=== PATIENT | female | born 1950 | race African-American/Black ===

== ENCOUNTER 2016-12-30 15:41 | Inpatient (IN) | payer MEDICARE, MEDICAID ==
[~2016-12-30] VITALS: Ht 170.2 cm; Wt 71.7 kg
[~2016-12-30 15:41] MED LIST: HYDRALAZINE HCL25 M1 ORAL; LEVOFLOXACIN500 MG ORAL; MEGESTROL ACETA20 M1 PO; MEGESTROL800 MG/20 PO; METOPROLOL SUCC50 MG ORAL; NEPRO; NOVASOURCE RE1000 M1 PO; NOVOLIN R100 UNIT/1 SUBQ; PRO-STAT LIQUID30 ML ORAL
[2016-12-30] MEDS ORDERED: PRO-STAT LIQUID30 ML ORAL (15:55)
[2016-12-30] MEDS ORDERED: ATIVAN2 MG ORAL (15:55)
--- NOTE | 2016-12-30 16:26 | Emergency Room Report ---
History of Present Illness General Chief Complaint: General Complaint Source: Patient, Medical Record, EMS Present Illness HPI The patient was sent in from missing dialysis. In addition to that they state that she has a 102 fever. The patient doesn't answer questions. She is aphasic. She was admitted in September for vaginal bleeding. These are the discharge diagnoses: 1. Post menopausal vaginal bleed and high possibility of endometrial cancer. 2. Aspiration pneumonia. 3. Acute metabolic encephalopathy. 4. End-stage renal failure, on hemodialysis. 5. Lactic acidosis. 6. Probable sepsis. 7. Urinary tract infection Enterococcus. 8. Possible pneumonia. 9. Diabetes. 10. Hypertension. 11. Anemia. 12. Hyperlipidemia. 13. Peripheral vascular disease. 14. Dementia. 15. History of open reduction internal fixation of left femur. 16. History of right above knee amputation. 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 Hx Diabetes: Yes Hx Dialysis: Yes - End stage renal disease, dependence on renal dialysis, MWF Hx Dementia: Yes Review of Systems All Other Systems: limited Physical Exam Vital Signs Date Time Temp Pulse Resp B/P Pulse Ox O2 Delivery O2 Flow Rate FiO2 12/30/16 15:49 100.2 101 22 106/56 95 Room Air Sp02 EP Interpretation: reviewed, normal General Appearance: no apparent distress, Chronically Ill Head: normocephalic, atraumatic Eyes: bilateral eye PERRL, bilateral eye normal inspection ENT: moist mucus membranes Neck: supple Respiratory: lungs clear, no respiratory distress, rhonchi - R but mostly clear Cardiovascular #1: regular rate, rhythm Cardiovascular #2: 2+ radial (R), 2+ radial (L) - fistula Gastrointestinal: normal inspection, normal bowel sounds, non tender, no mass, non-distended Genitourinary: other - vaginal blood present Musculoskeletal: no calf tenderness - L, other - AKA R Neurologic: alert, responsive, motor strength/tone normal, sensory intact, aphasia Psychiatric: anxious - occasionally screaming out, then with some verbal statements Skin: normal inspection, warm/dry Medical Decision Making Diagnostic Impression: Primary Impression: UTI (urinary tract infection) Qualified Codes: N39.0 - Urinary tract infection, site not specified Additional Impressions: Fever Qualified Codes: R50.81 - Fever presenting with conditions classified elsewhere ESRF (end stage renal failure) Vaginal bleeding ER Course Patient presents with fever and allegedly missing dialysis. Complex patient as she cannot give history. Emergent evaluation with BC, lactate, labs, CXR, EKG. Previously with UTI - raphael will be placed. Fever will be treated. Some evidence of continued vaginal bleeding. H/H much lower than when last in hospital (2 points). Vaginal source present. Evidence of UTI. CXR no infiltrate (compared with older films). Patient improved with treatment. Admit telemetry Dr. Motta. He came to evaluate the patient. Laboratory Tests Test 12/30/16 16:28 12/30/16 17:10 White Blood Count 10.7 K/UL (4.8-10.8) Red Blood Count 2.98 M/UL (4.20-5.40) L Hemoglobin 8.8 G/DL (12.0-16.0) L Hematocrit 27.6 % (37.0-47.0) L Mean Corpuscular Volume 93 FL (80-99) Mean Corpuscular Hemoglobin 29.4 PG (27.0-31.0) Mean Corpuscular Hemoglobin Concent 31.8 G/DL (32.0-36.0) L Red Cell Distribution Width 14.1 % (11.6-14.8) Platelet Count 394 K/UL (150-450) Mean Platelet Volume 10.0 FL (6.5-10.1) Neutrophils (%) (Auto) 73.0 % (45.0-75.0) Lymphocytes (%) (Auto) 18.4 % (20.0-45.0) L Monocytes (%) (Auto) 6.1 % (1.0-10.0) Eosinophils (%) (Auto) 1.3 % (0.0-3.0) Basophils (%) (Auto) 1.3 % (0.0-2.0) Prothrombin Time 10.2 SEC (9.30-11.50) Prothrombin Time INR 1.0 (0.9-1.1) PTT 25 SEC (23-33) Sodium Level 141 mEQ/L (135-145) Potassium Level 4.1 mEQ/L (3.4-4.9) Chloride Level 92 mEQ/L (98-107) L Carbon Dioxide Level 29 mEQ/L (20-30) Anion Gap 20 (5-15) H Blood Urea Nitrogen 42 mg/dL (7-23) H Creatinine 5.5 mg/dL (0.5-0.9) H Estimate Glomerular Filtration Rate 9.5 mL/min (>60) Glucose Level 241 mg/dL (74-106) H Lactic Acid Level 1.30 mmol/L (0.66-2.22) Calcium Level 9.8 mg/dL (8.6-10.2) Total Bilirubin 0.2 mg/dL (0.0-1.2) Aspartate Amino Transferase (AST) 15 U/L (5-40) Alanine Aminotransferase (ALT) 10 U/L (3-33) Alkaline Phosphatase 85 U/L (35-104) Total Creatine Kinase 292 U/L (26-140) H Troponin I < 0.30 ng/mL (<=0.30) Pro-B-Type Natriuretic Peptide 8144 pg/mL (0-125) H Total Protein 7.1 g/dL (6.6-8.7) Albumin 3.6 g/dL (3.5-5.2) Globulin 3.5 g/dL Albumin/Globulin Ratio 1.0 (1.0-2.7) Urine Color Yellow Urine Appearance Clear Urine pH 7 (4.5-8.0) Urine Specific [place] 1.005 (1.005-1.035) Urine Protein 3+ (NEGATIVE) H Urine Glucose (UA) Negative (NEGATIVE) Urine Ketones 1+ (NEGATIVE) H Urine Occult Blood 1+ (NEGATIVE) H Urine Nitrite Negative (NEGATIVE) Urine Bilirubin 1+ (NEGATIVE) H Urine Ictotest Urine Urobilinogen 1 MG/DL (0.0-1.0) H Urine Leukocyte Esterase 2+ (NEGATIVE) H Urine RBC 2-4 /HPF (0 - 2) H Urine WBC 0-2 /HPF (0 - 2) Urine Squamous Epithelial Cells Moderate /LPF (NONE/OCC) H Urine Bacteria Few /HPF (NONE) EKG Diagnostic Results Rate: normal Rhythm: NSR ST Segments: no acute changes Rhythm Strip Diag. Results EP Interpretation: yes Rhythm: NSR, no PVC's, no ectopy Chest X-Ray Diagnostic Results EP Interpretation: Yes Findings: no consolidation, no effusion, no pneumothorax Number of Views: 1 Last Vital Signs Date Time Temp Pulse Resp B/P Pulse Ox O2 Delivery O2 Flow Rate FiO2 12/30/16 15:49 100.2 101 22 106/56 95 Room Air Status: improved Disposition: ADMITTED INPATIENT Condition: Serious Referrals: IHSAN SILVA (PCP) Alexey Guillen M.D. Dec 30, 2016 16:26
[2016-12-30 16:54] LABS: BASOPHILS % (AUTO) 1.3 % (0.0-2.0); EOSINOPHILS % (AUTO) 1.3 % (0.0-3.0); LYMPHOCYTES % (AUTO) 18.4 % (20.0-45.0); MEAN CORPUSCULAR HEMOGLOBIN 29.4 PG (27.0-31.0); MEAN CORPUSCULAR HGB CONC 31.8 G/DL (32.0-36.0); MEAN CORPUSCULAR VOLUME 93 FL (80-99); MONOCYTES % (AUTO) 6.1 % (1.0-10.0); PLATELET COUNT 394 K/UL (150-450); RED BLOOD COUNT 2.98 M/UL (4.20-5.40); RED CELL DISTRIBUTION WIDTH 14.1 % (11.6-14.8); WHITE BLOOD COUNT 10.7 K/UL (4.8-10.8)
[2016-12-30 17:00] VITALS: BP 116/68
[2016-12-30 17:04] LABS: PROTHROMBIN TIME 10.2 SEC (9.30-11.50)
[2016-12-30 17:12] LABS: TROPONIN I < 0.30 ng/mL (<=0.30)
[2016-12-30 17:15] LABS: ALANINE AMINOTRANSFERASE 10 U/L (3-33); ANION GAP 20 (5-15); ASPARTATE AMINO TRANSFERASE 15 U/L (5-40); CALCIUM 9.8 mg/dL (8.6-10.2); CARBON DIOXIDE 29 mEQ/L (20-30); CHLORIDE 92 mEQ/L (98-107); CREATININE 5.5 mg/dL (0.5-0.9); GLOMERULAR FILTRATION RATE 9.5 mL/min (>60); HEMOLYSIS 15; POTASSIUM 4.1 mEQ/L (3.4-4.9); SODIUM 141 mEQ/L (135-145); TOTAL PROTEIN 7.1 g/dL (6.6-8.7)
[2016-12-30 17:35] LABS: APPEARANCE,URINE CLEAR; KETONES,URINE 1+ (NEGATIVE); LEUKOCYTE ESTERASE ,URINE 2+ (NEGATIVE); NITRITE,URINE NEGATIVE (NEGATIVE); PH,URINE 7 (4.5-8.0); PROTEIN,URINE 3+ (NEGATIVE); UROBILINOGEN,URINE 1 MG/DL (0.0-1.0)
[2016-12-30 17:56] LABS: BACTERIA,URINE FEW /HPF; SQUAMOUS EPITHELIAL CELL,UR MODERATE /LPF (NONE/OCC); WBC,URINE 0-2 /HPF (0 - 2)
[2016-12-30 18:33] VITALS: BP 128/68
[2016-12-30] MEDS ORDERED: Mylanta II UD 30ml ORAL PRN (19:15)
[2016-12-30] MEDS ORDERED: Amikacin Rx to dose MISC PRN (19:15)
[2016-12-30] MEDS ORDERED: Zolpidem 5mg tab ORAL PRN (19:15)
[2016-12-30] MEDS ORDERED: Miralax 17gm pkt ORAL PRN (19:15)
[2016-12-30] MEDS ORDERED: Morphine Sulfate 2mg/ml Inj IVP PRN (19:15)
[2016-12-30] MEDS ORDERED: DuoNeb 0.5-3(2.5)mg/3ml neb HHN PRN (19:15)
[2016-12-30 20:15] VITALS: BP 128/79
[2016-12-30] MEDS: Heparin 5000 units/ml inj SUBQ SCH (21:53)
[2016-12-30] MEDS ORDERED: Zosyn 2.25gm inj ONE (22:10)
[2016-12-30] MEDS: Piperacillin/Tazobactam 2.25 GM in D5W 55 ML IV SCH (22:20)
[2016-12-30] MEDS: HydrALAZINE 25mg tab ORAL SCH (22:25)
[2016-12-30] MEDS: NovoLOG Insulin Flexpen SUBQ SCH (22:29)
[2016-12-30] MEDS ORDERED: Vancomycin 1gm/D5W 275ml IVPB ONE ×2 (22:30)
[2016-12-30] MEDS ORDERED: Vancomycin 1gm inj IVPB ONE (23:11)
[2016-12-30 23:15] VITALS: BP 118/80
[2016-12-31] VITALS (9 sets, daily range): BP systolic 105–138; BP diastolic 50–85
[2016-12-31] MEDS ORDERED: Amikacin 500 MG in NS 110 ML IV ONE (02:00)
[2016-12-31] MEDS ORDERED: Amikacin 500mg/2mL Inj ONE (02:10)
[2016-12-31] MEDS ORDERED: Zosyn 2.25gm inj ONE (06:13)
[2016-12-31] MEDS: Piperacillin/Tazobactam 2.25 GM in D5W 55 ML IV SCH ×3 (06:15→21:28)
[2016-12-31] MEDS: HydrALAZINE 25mg tab ORAL SCH ×3 (06:26→21:30)
[2016-12-31] MEDS: NovoLOG Insulin Flexpen SUBQ SCH ×4 (06:37→20:32)
[2016-12-31 07:38] LABS: BASOPHILS % (AUTO) 1.3 % (0.0-2.0); EOSINOPHILS % (AUTO) 2.3 % (0.0-3.0); LYMPHOCYTES % (AUTO) 23.4 % (20.0-45.0); MEAN CORPUSCULAR HEMOGLOBIN 29.2 PG (27.0-31.0); MEAN CORPUSCULAR HGB CONC 33.1 G/DL (32.0-36.0); MEAN CORPUSCULAR VOLUME 88 FL (80-99); MEAN PLATELET VOLUME 10.1 FL (6.5-10.1); MONOCYTES % (AUTO) 8.2 % (1.0-10.0); NEUTROPHILS % (AUTO) 64.8 % (45.0-75.0); PLATELET COUNT 371 K/UL (150-450); RED BLOOD COUNT 2.91 M/UL (4.20-5.40); RED CELL DISTRIBUTION WIDTH 13.5 % (11.6-14.8); WHITE BLOOD COUNT 9.2 K/UL (4.8-10.8)
[2016-12-31 07:45] LABS: APPEARANCE,URINE SLIGHTLY CLOUDY; KETONES,URINE NEGATIVE (NEGATIVE); LEUKOCYTE ESTERASE ,URINE 3+ (NEGATIVE); NITRITE,URINE NEGATIVE (NEGATIVE); PH,URINE 6 (4.5-8.0); PROTEIN,URINE 4+ (NEGATIVE); UROBILINOGEN,URINE 1 MG/DL (0.0-1.0)
[2016-12-31 07:46] LABS: ALBUMIN/GLOBULIN RATIO 0.9 (1.0-2.7); CALCIUM 9.6 mg/dL (8.6-10.2); CHOLESTEROL/HDL RATIO 8.2 (3.3-4.4); CREATININE 5.7 mg/dL (0.5-0.9); GLOMERULAR FILTRATION RATE 9.1 mL/min (>60); POTASSIUM 3.4 mEQ/L (3.4-4.9); TOTAL PROTEIN 7.2 g/dL (6.6-8.7)
[2016-12-31 07:54] LABS: WBC,URINE 20-30 /HPF (0 - 2)
[2016-12-31 07:55] LABS: BACTERIA,URINE FEW /HPF; SQUAMOUS EPITHELIAL CELL,UR FEW /LPF (NONE/OCC)
[2016-12-31 07:56] LABS: HEMOGLOBIN A1C 6.9 % (< 6.0); THYROID STIMULATING HORMONE 0.295 uIU/mL (0.300-4.500)
[2016-12-31 07:58] LABS: ICTOTEST NEGATIVE
--- NOTE | 2016-12-31 08:57 | Diagnostic Imaging Report ---
Clinical history: Acute chest pain. Technique: Portable AP chest radiograph was obtained. Comparison: None Findings: Lung volumes are low. There is borderline cardiomegaly with suspected mild interstitial densities, left greater than right, suggesting mild interstitial edema. [place] is noted in the left lower lung. There is no pleural effusion or pneumothorax. The bony thorax is unremarkable. Impression: Borderline cardiomegaly with suspected mild asymmetric interstitial edema..
[2016-12-31] MEDS: Heparin 5000 units/ml inj SUBQ SCH ×2 (10:19→20:31)
--- NOTE | 2016-12-31 15:13 | History and Physical ---
History of Present Illness General Date patient seen: Dec 31, 2016 Reason for Hospitalization: General Complaint Present Illness HPI 66 year old female with hx of ESRF, DM, Advanced Dementia, previous history of vaginal bleeding, [facility] resident. she was at [facility] a few month ago with vaginal bleeding, her bleeding stopped and she was discharged with the recommendation of outpatient [employer] follow up. She is brought back to ER with the CC of vaginal bleeding. she can't give any history. She is awake and comfortable. Allergies: Coded Allergies: No Known Allergies (Unverified , 09/15/16) Medication History Scheduled Amino Acids/Protein Hydrolys (Pro-Stat Liquid), 45 ML ORAL TWICE A DAY, ( Reported) Hydralazine Hcl* (Hydralazine Hcl*), 25 MG ORAL EVERY 8 HOURS, (Reported) Insulin Regular, Human* (Novolin R*), 0 SUBQ .SLIDING SCALE, (Reported) Lorazepam* (Ativan*), 2 MG ORAL EVERY OTHER DAY, (Reported) Megestrol Acetate (Megestrol Acetate), 800 MG PO BEFORE BREAKFAST, (Reported) Metoprolol Succinate* (Metoprolol Succinate*), 50 MG ORAL DAILY, (Reported) Discontinued Medications Amino Acids/Protein Hydrolys (Pro-Stat Liquid), 30 ML ORAL TWICE A DAY, ( Reported) Discontinued Reason: Therapy completed Levofloxacin (Levofloxacin*), 500 MG ORAL DAILY Discontinued Reason: Therapy completed Nutritional Supplement (Novasource Renal), 1,000 ML PO, (Reported) Discontinued Reason: Therapy completed [Nepro Liquid], (Reported) Discontinued Reason: Therapy completed Patient History Healthcare decision maker Resuscitation status Advanced Directive on File Past Medical/Surgical History Past Medical/Surgical History: (1) Diabetes mellitus (2) Vaginal bleeding (3) ESRF (end stage renal failure) Review of Systems All Other Systems: negative except mentioned in HPI Physical Exam General Appearance: WD/WN Lines, tubes and drains: peripheral, PICC HEENT: normocephalic, anicteric Neck: non-tender, supple Respiratory/Chest: chest wall non-tender, lungs clear Cardiovascular/Chest: normal peripheral pulses, regular rhythm Abdomen: normal bowel sounds, non tender Genitourinary/Rectal: normal genital exam, normal rectal exam Last 24 Hour Vital Signs Date Time Temp Pulse Resp B/P Pulse Ox O2 Delivery O2 Flow Rate FiO2 12/31/16 11:57 98.6 88 20 114/64 95 Room Air 12/31/16 09:00 98.2 94 21 105/56 95 Room Air 12/31/16 09:00 94 105/56 12/31/16 08:06 93 16 110/53 99 Room Air 12/31/16 07:25 99.0 89 25 110/50 97 Room Air 12/31/16 06:37 98.6 67 18 108/53 99 Room Air 12/31/16 06:26 111/54 12/31/16 05:30 79 14 111/71 98 Room Air 12/31/16 03:30 98.8 82 16 118/85 99 Room Air 12/31/16 01:30 84 19 122/81 100 Room Air 12/30/16 23:15 95 18 118/80 99 Room Air 12/30/16 22:25 135/78 12/30/16 20:15 99.0 100 21 128/79 98 Room Air 12/30/16 19:55 99.0 12/30/16 18:33 100.5 104 18 128/68 98 Room Air 12/30/16 17:00 100.2 96 19 116/68 98 Room Air 12/30/16 15:49 100.2 101 22 106/56 95 Room Air Intake and Output 12/30/16 12/31/16 19:00 07:00 Intake Total 460 ml Output Total 270 ml Balance 190 ml IV Total 460 ml Output Urine Total 270 ml Laboratory Tests Test 12/30/16 16:28 12/30/16 17:10 12/31/16 07:15 White Blood Count 10.7 K/UL (4.8-10.8) 9.2 K/UL (4.8-10.8) Red Blood Count 2.98 M/UL (4.20-5.40) L 2.91 M/UL (4.20-5.40) L Hemoglobin 8.8 G/DL (12.0-16.0) L 8.5 G/DL (12.0-16.0) L Hematocrit 27.6 % (37.0-47.0) L 25.7 % (37.0-47.0) L Mean Corpuscular Volume 93 FL (80-99) 88 FL (80-99) Mean Corpuscular Hemoglobin 29.4 PG (27.0-31.0) 29.2 PG (27.0-31.0) Mean Corpuscular Hemoglobin Concent 31.8 G/DL (32.0-36.0) L 33.1 G/DL (32.0-36.0) Red Cell Distribution Width 14.1 % (11.6-14.8) 13.5 % (11.6-14.8) Platelet Count 394 K/UL (150-450) 371 K/UL (150-450) Mean Platelet Volume 10.0 FL (6.5-10.1) 10.1 FL (6.5-10.1) Neutrophils (%) (Auto) 73.0 % (45.0-75.0) 64.8 % (45.0-75.0) Lymphocytes (%) (Auto) 18.4 % (20.0-45.0) L 23.4 % (20.0-45.0) Monocytes (%) (Auto) 6.1 % (1.0-10.0) 8.2 % (1.0-10.0) Eosinophils (%) (Auto) 1.3 % (0.0-3.0) 2.3 % (0.0-3.0) Basophils (%) (Auto) 1.3 % (0.0-2.0) 1.3 % (0.0-2.0) Prothrombin Time 10.2 SEC (9.30-11.50) Prothromb Time International Ratio 1.0 (0.9-1.1) Activated Partial Thromboplast Time 25 SEC (23-33) Sodium Level 141 mEQ/L (135-145) 141 mEQ/L (135-145) Potassium Level 4.1 mEQ/L (3.4-4.9) 3.4 mEQ/L (3.4-4.9) Chloride Level 92 mEQ/L (98-107) L 94 mEQ/L (98-107) L Carbon Dioxide Level 29 mEQ/L (20-30) 30 mEQ/L (20-30) Anion Gap 20 (5-15) H 17 (5-15) H Blood Urea Nitrogen 42 mg/dL (7-23) H 46 mg/dL (7-23) H Creatinine 5.5 mg/dL (0.5-0.9) H 5.7 mg/dL (0.5-0.9) H Estimat Glomerular Filtration Rate 9.5 mL/min (>60) 9.1 mL/min (>60) Glucose Level 241 mg/dL (74-106) H 184 mg/dL (74-106) H Lactic Acid Level 1.30 mmol/L (0.66-2.22) Calcium Level 9.8 mg/dL (8.6-10.2) 9.6 mg/dL (8.6-10.2) Total Bilirubin 0.2 mg/dL (0.0-1.2) 0.4 mg/dL (0.0-1.2) Aspartate Amino Transf (AST/SGOT) 15 U/L (5-40) 13 U/L (5-40) Alanine Aminotransferase (ALT/SGPT) 10 U/L (3-33) 8 U/L (3-33) Alkaline Phosphatase 85 U/L (35-104) 77 U/L (35-104) Total Creatine Kinase 292 U/L (26-140) H Troponin I < 0.30 ng/mL (<=0.30) Pro-B-Type Natriuretic Peptide 8144 pg/mL (0-125) H Total Protein 7.1 g/dL (6.6-8.7) 7.2 g/dL (6.6-8.7) Albumin 3.6 g/dL (3.5-5.2) 3.5 g/dL (3.5-5.2) Globulin 3.5 g/dL 3.7 g/dL Albumin/Globulin Ratio 1.0 (1.0-2.7) 0.9 (1.0-2.7) L Urine Color Yellow Yellow Urine Appearance Clear Slightly cloudy Urine pH 7 (4.5-8.0) 6 (4.5-8.0) Urine Specific [place] 1.005 (1.005-1.035) 1.020 (1.005-1.035) Urine Protein 3+ (NEGATIVE) H 4+ (NEGATIVE) H Urine Glucose (UA) Negative (NEGATIVE) Negative (NEGATIVE) Urine Ketones 1+ (NEGATIVE) H Negative (NEGATIVE) Urine Occult Blood 1+ (NEGATIVE) H 4+ (NEGATIVE) H Urine Nitrite Negative (NEGATIVE) Negative (NEGATIVE) Urine Bilirubin 1+ (NEGATIVE) H 1+ (NEGATIVE) H Urine Ictotest Negative Urine Urobilinogen 1 MG/DL (0.0-1.0) H 1 MG/DL (0.0-1.0) H Urine Leukocyte Esterase 2+ (NEGATIVE) H 3+ (NEGATIVE) H Urine RBC 2-4 /HPF (0 - 2) H 5-10 /HPF (0 - 2) H Urine WBC 0-2 /HPF (0 - 2) 20-30 /HPF (0 - 2) H Urine Squamous Epithelial Cells Moderate /LPF (NONE/OCC) H Few /LPF (NONE/OCC) Urine Bacteria Few /HPF (NONE) Few /HPF (NONE) Hemoglobin A1c 6.9 % (< 6.0) H Triglycerides Level 212 mg/dL (< 150) H Cholesterol Level 247 mg/dL (< 200) H LDL Cholesterol 175 mg/dL (60-99) H HDL Cholesterol 30 mg/dL (> 60) Cholesterol/HDL Ratio 8.2 (3.3-4.4) H Thyroid Stimulating Hormone (TSH) 0.295 uIU/mL (0.300-4.500) Height (Feet): 5 Height (Inches): 7.00 Weight (Pounds): 158 Medications Current Medications Medications (Trade) Dose Ordered Sig/Althea Route PRN Reason Start Time Stop Time Status Last Admin Dose Admin Acetaminophen (Tylenol) 650 mg Q4H PRN ORAL fever 12/30/16 19:15 01/29/17 19:14 Al Hydroxide/Mg Hydroxide (Mylanta II) 30 ml Q6H PRN ORAL dyspepsia 12/30/16 19:15 01/29/17 19:14 Albuterol/ Ipratropium (DuoNeb 0.5-3(2.5)mg/3ml) 3 ml Q6HRT PRN HHN dyspnea 12/30/16 19:15 01/04/17 19:14 Amikacin Protocol 1 ea 1 ea DAILY PRN MISC Per rx protocol 12/30/16 19:15 01/29/17 19:14 Amikacin Sulfate/ Dextrose (Amikin/D5W) 56 ml @ 112 mls/hr POSTHD IV 01/01/17 06:00 01/08/17 05:59 Clonidine HCl (Catapres) 0.1 mg Q4H PRN ORAL For High Blood Pressure 12/30/16 19:15 01/29/17 19:14 Dextrose (Dextrose 50%) STAT PRN IV Hypoglycemia 12/30/16 19:15 01/29/17 19:14 Furosemide (Lasix) 100 mg EVERY 8 HOURS PRN IV dyspnea 12/30/16 19:15 01/29/17 19:14 Heparin Sodium (Porcine) (Heparin 5000 units/ml) 5,000 units EVERY 12 HOURS SUBQ 12/30/16 21:00 01/29/17 20:59 12/31/16 10:19 Hydralazine HCl (Apresoline) 25 mg EVERY 8 HOURS ORAL 12/30/16 22:00 01/29/17 21:59 12/31/16 06:26 Insulin Aspart (NovoLOG) BEFORE MEALS AND HS SUBQ 12/30/16 22:00 01/29/17 21:59 12/31/16 11:38 Metoprolol Succinate (Toprol XL) 50 mg DAILY ORAL 12/31/16 09:00 01/30/17 08:59 Morphine Sulfate (Morphine Sulfate) 1 mg EVERY 4 HOURS PRN IVP For Pain 12/30/16 19:15 01/06/17 19:14 Ondansetron HCl (Zofran) 4 mg Q6H PRN IVP Nausea & Vomiting 12/30/16 19:15 01/29/17 19:14 Piperacillin Sod/ Tazobactam Sod/ Dextrose (Zosyn/D5W) 55 ml @ 110 mls/hr Q8HR IV 12/30/16 22:00 01/06/17 21:59 12/31/16 06:15 Polyethylene Glycol (Miralax) 17 gm HSPRN PRN ORAL Constipation 12/30/16 19:15 01/29/17 19:14 Vancomycin HCl 1 ea 1 ea DAILY PRN MISC Per rx protocol 12/30/16 19:15 01/29/17 19:14 Zolpidem Tartrate (Ambien) 5 mg HSPRN PRN ORAL Insomnia 12/30/16 19:15 01/29/17 19:14 Assessment/Plan Problem List: (1) Sepsis ICD Codes: A41.9 - Sepsis, unspecified organism SNOMED: 40197962 (2) Vaginal bleeding ICD Codes: N93.9 - Abnormal uterine and vaginal bleeding, unspecified SNOMED: 435551540, 514864098 (3) UTI (urinary tract infection) ICD Codes: N39.0 - Urinary tract infection, site not specified SNOMED: 34764650 Qualifiers: Qualified Codes: N39.0 - Urinary tract infection, site not specified (4) ESRF (end stage renal failure) ICD Codes: N18.6 - End stage renal disease SNOMED: 52036272 (5) Diabetes mellitus ICD Codes: E11.9 - Type 2 diabetes mellitus without complications SNOMED: 66144626 Assessment/Plan rose cultures IV antibiotics Renal evaluation RANGE MOUNTER evaluation tumor markers sliding scale, diabetic diet IHSAN SILVA Dec 31, 2016 15:13
--- NOTE | 2016-12-31 16:21 | Consultation ---
Consult Note Consult Note asked to eval for dialysis management- Patient is being admitted with UTI Anemia Vaginal Bleeding and ESRD missed HD 12/29 . Assessment/Plan Assessment/Plan End-stage renal disease, on hemodialysis every Sunday, Sunday, and Sunday. Last dialysis was on Wednesday 12/27 1. Type 2 diabetes. 2. Hypertension. 3. Anemia of chronic renal disease. & Vaginal bleed 4. Hypercholesterolemia. 5. Peripheral vascular disease. 6. Alzheimer's dementia. 7. LUNG MASS PAST SURGICAL HISTORY: Significant for: 1. Right [id number] amputation. 2. Open reduction internal fixation of the left femoral neck on 07/20/2016. Plan; HD 01/01 Monitor H&H - EPO Per consultants check lab in am- Antibiotics- Adjust BP TAQUERIA Sanchez Dec 31, 2016 16:21
--- NOTE | 2016-12-31 19:57 | Wound Care Consultation ---
Wound Assessment Wound Assessment : Wound Present on Admission: Yes New Wound: No Status Change of Wound: No Wound Location Body Site Modif: mid Wound Location Body Site: sacral Wound Type: pressure ulcer Reggie Test: Does not Reggie Pressure Ulcer Stage: IV/unstageable Wound Thickness: Full Thickness Wound Length: 10.0 Wound Width: 7.0 Wound Depth: utd Percent of Wound [place]/Red: 20 Percent of Wound Bed Yellow/Wh: 20 Percent of Wound Purple/Maroon: 60 Wound Drainage Description: Serosanguineous Wound Drainage Amount: Scant Wound Drainage Odor: None/Absent Tissue Surrounding Wound: Macerated Wound General Appearance: Reddened, Draining, Unapproximated Wound Comment #1 Sacral stage IV/unstageable pressure ulcers by full thickness scar tissue Recommendation -Cleanse with saline pat dry apply Triad cream cover with [place] Silicone drg daily and PRN soiled/dislodged -Turn and reposition -Keep clean and dry -Optimize nutrition -Low air loss overlay mattress -Offload left leg and apply heel protector -Assess and f/u accordingly for any changes BANDAR SORIA RN Dec 31, 2016 19:57
[2016-12-31] MEDS ORDERED: Vancomycin 750mg/D5W 275ml IVPB ONE ×2 (20:00)
--- NOTE | 2016-12-31 21:13 | Cardiology Report ---
APPROVED REPORT EKG Measurement Heart [id number] OR [id number] Normal sinus rhythm Possible Left atrial enlargement Nonspecific intraventricular conduction delay Abnormal QRS-T angle, consider primary T wave abnormality Prolonged QT Abnormal ECG
[2017-01-01] VITALS (8 sets, daily range): BP systolic 90–117; BP diastolic 50–72
[2017-01-01] MEDS ORDERED: D5W IV SCH (06:00)
[2017-01-01] MEDS ORDERED: AMIKACIN IV SCH (06:00)
[2017-01-01] MEDS: HydrALAZINE 25mg tab ORAL SCH ×3 (06:00→21:54)
[2017-01-01] MEDS: Piperacillin/Tazobactam 2.25 GM in D5W 55 ML IV SCH ×3 (06:13→22:37)
[2017-01-01] MEDS: NovoLOG Insulin Flexpen SUBQ SCH ×4 (06:15→20:57)
[2017-01-01 06:37] LABS: BASOPHILS % (AUTO) 2.3 % (0.0-2.0); EOSINOPHILS % (AUTO) 3.6 % (0.0-3.0); MEAN CORPUSCULAR HEMOGLOBIN 29.4 PG (27.0-31.0); MEAN CORPUSCULAR HGB CONC 32.8 G/DL (32.0-36.0); MEAN CORPUSCULAR VOLUME 89 FL (80-99); MEAN PLATELET VOLUME 12.6 FL (6.5-10.1); MONOCYTES % (AUTO) 9.1 % (1.0-10.0); PLATELET COUNT 435 K/UL (150-450); RED CELL DISTRIBUTION WIDTH 13.8 % (11.6-14.8); WHITE BLOOD COUNT 8.6 K/UL (4.8-10.8)
[2017-01-01 06:54] LABS: ALANINE AMINOTRANSFERASE 8 U/L (3-33); ALBUMIN/GLOBULIN RATIO 0.8 (1.0-2.7); ANION GAP 21 (5-15); ASPARTATE AMINO TRANSFERASE 12 U/L (5-40); CALCIUM 9.2 mg/dL (8.6-10.2); CARBON DIOXIDE 26 mEQ/L (20-30); CHLORIDE 94 mEQ/L (98-107); CREATININE 6.1 mg/dL (0.5-0.9); CRP QUANT 3.7 mg/dL (< 0.5); GLOMERULAR FILTRATION RATE 8.4 mL/min (>60); HEMOLYSIS 2; MAGNESIUM 2.7 mg/dL (1.7-2.5); PHOSPHORUS 4.8 mg/dL (2.5-4.8); POTASSIUM 3.6 mEQ/L (3.4-4.9); SODIUM 141 mEQ/L (135-145)
[2017-01-01 06:58] LABS: FERRITIN 744 ng/mL (13-150)
[2017-01-01 07:01] LABS: HEMOLYSIS 8; IRON 43 ug/dL (37-145); TOTAL IRON BINDING CAPACITY 179 ug/dL (250-400)
[2017-01-01 07:37] LABS: HEMOGLOBIN A1C 6.7 % (< 6.0)
[2017-01-01] MEDS: Heparin 5000 units/ml inj SUBQ SCH ×2 (09:00→20:57)
--- NOTE | 2017-01-01 10:34 | General Progress Note ---
Assessment/Plan Status: stable Assessment/Plan End-stage renal disease, on hemodialysis every Sunday, Sunday, and Sunday. Last dialysis was on Wednesday 12/27 -received dialysis today 01/01 1. Type 2 diabetes. 2. Hypertension. 3. Anemia of chronic renal disease. & Vaginal bleed 4. Hypercholesterolemia. 5. Peripheral vascular disease. 6. Alzheimer's dementia. 7. ?? LUNG MASS PAST SURGICAL HISTORY: Significant for: 1. Right [id number] amputation. 2. Open reduction internal fixation of the left femoral neck on 07/20/2016. Plan; HD 01/01 done- Monitor H&H - EPO Per consultants check lab in am- Antibiotics- Adjust BP meds Subjective ROS Limited/Unobtainable: No Constitutional: Reports: malaise Allergies: Coded Allergies: No Known Allergies (Unverified , 09/15/16) Objective Last 24 Hour Vital Signs Date Time Temp Pulse Resp B/P Pulse Ox O2 Delivery O2 Flow Rate FiO2 01/01/17 08:45 98.0 98 18 110/60 97 Room Air 01/01/17 08:45 Room Air 01/01/17 07:52 97.9 102 20 102/52 96 Room Air 01/01/17 06:00 110/59 01/01/17 05:15 98.6 96 20 116/58 98 Room Air 01/01/17 05:15 Room Air 01/01/17 04:00 98.2 94 14 110/59 98 Room Air 01/01/17 00:00 98.4 94 14 110/72 94 Room Air 12/31/16 21:30 108/63 12/31/16 20:00 98.2 101 20 108/63 95 Room Air 12/31/16 15:47 97.5 99 20 138/71 97 Room Air 12/31/16 14:00 108/58 12/31/16 11:57 98.6 88 20 114/64 95 Room Air Intake and Output 12/31/16 01/01/17 19:00 07:00 Intake Total 175 ml 175 ml Output Total 150 ml 525 ml Balance 25 ml -350 ml Intake Oral 120 ml 120 ml IV Total 55 ml 55 ml Output Urine Total 150 ml 525 ml # Bowel Movements 1 2 Laboratory Tests 01/01/17 05:30: White Blood Count 8.6, Red Blood Count 3.00L, Hemoglobin 8.8L, Hematocrit 26.8L , Mean Corpuscular Volume 89, Mean Corpuscular Hemoglobin 29.4, Mean Corpuscular Hemoglobin Concent 32.8, Red Cell Distribution Width 13.8, Platelet Count 435, Mean Platelet Volume 12.6H, Neutrophils (%) (Auto) 56.0, Lymphocytes (%) (Auto) 29.0, Monocytes (%) (Auto) 9.1, Eosinophils (%) (Auto) 3.6H, Basophils (%) (Auto) 2.3H, Sodium Level 141, Potassium Level 3.6, Chloride Level 94L, Carbon Dioxide Level 26, Anion Gap 21H, Blood Urea Nitrogen 50H, Creatinine 6.1H, Estimat Glomerular Filtration Rate 8.4, Glucose Level 145H, Hemoglobin A1c 6.7H, Uric Acid 8.0H, Calcium Level 9.2, Phosphorus Level 4.8, Magnesium Level 2.7H, Iron Level 43, Total Iron Binding Capacity 179L, Percent Iron Saturation 24, Unsaturated Iron Binding 136, Ferritin 744H, Total Bilirubin 0.5, Gamma Glutamyl Transpeptidase 31, Aspartate Amino Transf (AST/ SGOT) 12, Alanine Aminotransferase (ALT/SGPT) 8, Alkaline Phosphatase 72, Total Creatine Kinase 114, C-Reactive Protein, Quantitative 3.7H, Pro-B-Type Natriuretic Peptide 7476H, Total Protein 7.0, Albumin 3.3L, Globulin 3.7, Albumin/Globulin Ratio 0.8L, Vitamin B12 Level 387, Folate [Pending] Height (Feet): 5 Height (Inches): 7.00 Weight (Pounds): 158 General Appearance: no apparent distress Objective no change in physical exam TAQUERIA JACOBSON Jan 01, 2017 10:34
[2017-01-01] MEDS ORDERED: Iron Sucrose 200 MG in NS 110 ML IVPB ONE (12:00)
--- NOTE | 2017-01-01 15:46 | Consultation ---
Consult Note Consult Note ID CONSULT: Dict# [id number] Assessment/Plan ASSESSMENT: 66-year-old female with: // Possible UTI - UCx mixed GP, h/o VSE.faecalis // Stage II sacral decubitus POA, not grossly infected - WCx pending, h/o MSSA, diptheroids, P.mirabilis, ACB, ESBL(+) E.coli // Fever - resolved, no leukocytosis // Vaginal bleed, possible endometrial CA - US: thickened endometrium and 8.5 cm complex left adnexal mass. // ESRD / HD // Advanced dementia // DM2 - HbA1c 6.7% // PVD SP right AKA // [facility] resident // MRSA colonized // NKDA // Full Code PLAN: - continue empiric IV vancomycin, amikacin d# 2, zosyn d# 1 ( ABX d# 2 / 5-7 ) , de-escalate soon - f/u cultures - monitor CBC, temperatures - monitor BMP. - monitor CXR - wound care Thanks! Will follow CITLALY CHIN Jan 01, 2017 15:46
--- NOTE | 2017-01-01 16:55 | Pulmonology Progress Note ---
Assessment/Plan Problems: (1) Sepsis (2) Vaginal bleeding (3) UTI (urinary tract infection) (4) ESRF (end stage renal failure) (5) Diabetes mellitus Assessment/Plan awaiting Screw Down evaluation Dr. Cox doesn't come to [facility] [place] [facility] anymore. Dr. Lozano notified. 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 Subjective ROS Limited/Unobtainable: No Constitutional: Reports: no symptoms HEENT: Repors: no symptoms Allergies: Coded Allergies: No Known Allergies (Unverified , 09/15/16) Objective Last 24 Hour Vital Signs Date Time Temp Pulse Resp B/P Pulse Ox O2 Delivery O2 Flow Rate FiO2 01/01/17 16:00 98.7 95 20 117/57 94 Room Air 01/01/17 14:00 105/71 01/01/17 11:46 97.7 97 21 113/61 95 Room Air 01/01/17 09:00 61 101/78 01/01/17 08:45 98.0 98 18 110/60 97 Room Air 01/01/17 08:45 Room Air 01/01/17 07:52 97.9 102 20 102/52 96 Room Air 01/01/17 06:00 110/59 01/01/17 05:15 98.6 96 20 116/58 98 Room Air 01/01/17 05:15 Room Air 01/01/17 04:00 98.2 94 14 110/59 98 Room Air 01/01/17 00:00 98.4 94 14 110/72 94 Room Air 12/31/16 21:30 108/63 12/31/16 20:00 98.2 101 20 108/63 95 Room Air Intake and Output 12/31/16 01/01/17 18:59 06:59 Intake Total 230 ml 175 ml Output Total 150 ml 525 ml Balance 80 ml -350 ml Intake Oral 120 ml 120 ml IV Total 110 ml 55 ml Output Urine Total 150 ml 525 ml # Bowel Movements 1 2 Objective General Appearance: WD/WN Lines, tubes and drains: peripheral, Hd access HEENT: normocephalic, anicteric Neck: non-tender, supple Respiratory/Chest: chest wall non-tender, lungs clear Cardiovascular/Chest: normal peripheral pulses, regular rhythm Abdomen: normal bowel sounds, non tender Genitourinary/Rectal: normal genital exam Microbiology Date/Time Source Procedure Growth Status 12/30/16 16:28 Blood Blood Culture - Preliminary NO GROWTH AFTER 24 HOURS Resulted 12/30/16 16:08 Blood Blood Culture - Preliminary NO GROWTH AFTER 24 HOURS Resulted 12/30/16 17:04 Nasal Nares MRSA Culture - Final Staphylococcus Aureus - Mrsa Complete 12/31/16 07:15 Urine,Clean Catch Urine Culture - Preliminary Mixed Gram Positive Organism Resulted 12/31/16 19:30 Sacral Wound Gram Stain - Final Resulted 12/31/16 19:30 Sacral Wound Wound Culture Pending Resulted Laboratory Tests 01/01/17 05:30: White Blood Count 8.6, Red Blood Count 3.00L, Hemoglobin 8.8L, Hematocrit 26.8L , Mean Corpuscular Volume 89, Mean Corpuscular Hemoglobin 29.4, Mean Corpuscular Hemoglobin Concent 32.8, Red Cell Distribution Width 13.8, Platelet Count 435, Mean Platelet Volume 12.6H, Neutrophils (%) (Auto) 56.0, Lymphocytes (%) (Auto) 29.0, Monocytes (%) (Auto) 9.1, Eosinophils (%) (Auto) 3.6H, Basophils (%) (Auto) 2.3H, Sodium Level 141, Potassium Level 3.6, Chloride Level 94L, Carbon Dioxide Level 26, Anion Gap 21H, Blood Urea Nitrogen 50H, Creatinine 6.1H, Estimat Glomerular Filtration Rate 8.4, Glucose Level 145H, Hemoglobin A1c 6.7H, Uric Acid 8.0H, Calcium Level 9.2, Phosphorus Level 4.8, Magnesium Level 2.7H, Iron Level 43, Total Iron Binding Capacity 179L, Percent Iron Saturation 24, Unsaturated Iron Binding 136, Ferritin 744H, Total Bilirubin 0.5, Gamma Glutamyl Transpeptidase 31, Aspartate Amino Transf (AST/ SGOT) 12, Alanine Aminotransferase (ALT/SGPT) 8, Alkaline Phosphatase 72, Total Creatine Kinase 114, C-Reactive Protein, Quantitative 3.7H, Pro-B-Type Natriuretic Peptide 7476H, Total Protein 7.0, Albumin 3.3L, Globulin 3.7, Albumin/Globulin Ratio 0.8L, Vitamin B12 Level 387, Folate [Pending] Current Medications Medications (Trade) Dose Ordered Sig/Althea Route PRN Reason Start Time Stop Time Status Last Admin Dose Admin Acetaminophen (Tylenol) 650 mg Q4H PRN ORAL fever 12/30/16 19:15 01/29/17 19:14 Albuterol/ Ipratropium (DuoNeb 0.5-3(2.5)mg/3ml) 3 ml Q6HRT PRN HHN dyspnea 12/30/16 19:15 01/04/17 19:14 Amikacin Protocol 1 ea 1 ea DAILY PRN MISC Per rx protocol 12/30/16 19:15 01/29/17 19:14 Amikacin Sulfate/ Dextrose (Amikin/D5W) 56 ml @ 112 mls/hr POSTHD IV 01/01/17 06:00 01/08/17 05:59 Clonidine HCl (Catapres) 0.1 mg Q4H PRN ORAL For High Blood Pressure 170 sy 12/31/16 19:15 01/30/17 19:14 Dextrose (Dextrose 50%) STAT PRN IV Hypoglycemia 12/30/16 19:15 01/29/17 19:14 Epoetin Romeo (Procrit (for ESRD on dialysis)) 10,000 units SUN-SUN-SUN SUBQ 01/01/17 21:00 01/31/17 20:59 Heparin Sodium (Porcine) (Heparin 5000 units/ml) 5,000 units EVERY 12 HOURS SUBQ 12/30/16 21:00 01/29/17 20:59 12/31/16 20:31 Hydralazine HCl (Apresoline) 10 mg EVERY 8 HOURS ORAL 12/31/16 22:00 01/30/17 21:59 Insulin Aspart (NovoLOG) BEFORE MEALS AND HS SUBQ 12/30/16 22:00 01/29/17 21:59 01/01/17 12:28 Metoprolol Succinate (Toprol XL) 50 mg DAILY ORAL 12/31/16 09:00 01/30/17 08:59 Morphine Sulfate (Morphine Sulfate) 1 mg EVERY 4 HOURS PRN IVP For Pain 12/30/16 19:15 01/06/17 19:14 Ondansetron HCl (Zofran) 4 mg Q6H PRN IVP Nausea & Vomiting 12/30/16 19:15 01/29/17 19:14 Piperacillin Sod/ Tazobactam Sod/ Dextrose (Zosyn/D5W) 55 ml @ 110 mls/hr Q8HR IV 12/30/16 22:00 01/06/17 21:59 01/01/17 13:29 Polyethylene Glycol (Miralax) 17 gm HSPRN PRN ORAL Constipation 12/30/16 19:15 01/29/17 19:14 Vancomycin HCl 1 ea 1 ea DAILY PRN MISC Per rx protocol 12/30/16 19:15 01/29/17 19:14 Zolpidem Tartrate (Ambien) 5 mg HSPRN PRN ORAL Insomnia 12/30/16 19:15 01/29/17 19:14 IHSAN SILVA Jan 01, 2017 16:55
[2017-01-01] MEDS: Epogen (for ESRD on dialysis) SUBQ SCH (20:58)
--- NOTE | 2017-01-01 23:09 | Consultation ---
DATE OF CONSULTATION: 01/01/2017 INFECTIOUS DISEASE CONSULTATION CONSULTING PHYSICIAN: Amaury Guzman M.D. REFERRING PHYSICIAN: Lit Cerna M.D. REASON FOR CONSULTATION: Fever. HISTORY OF PRESENT ILLNESS: This is a 66-year-old diabetic demented female, halfway resident, who is admitted on 12/30/2016 with fever. Fevers have now resolved. She has evidence of possible urinary tract infection. Urine culture is growing mixed gram-positive growth. Blood cultures, no growth to date. Stage II sacral decubitus ulcer present and not grossly infected. Wound culture is pending. Chest x-ray shows mild asymmetric interstitial edema. She has no leukocytosis. She has been started on empiric vancomycin, Zosyn, and amikacin and ID now consulted to assist in management. PAST MEDICAL HISTORY: 1. End-stage renal disease, on dialysis. 2. Probable endometrial cancer. 3. Advanced dementia. 4. Diabetes, type 2. 5. Hypertension. 6. Hyperlipidemia. 7. Anemia of chronic disease. PAST SURGICAL HISTORY: 1. Left femur open reduction and internal fixation. 2. Right [id number] amputation. FAMILY HISTORY: Unknown. SOCIAL HISTORY: The patient is a resident of a halfway. No active tobacco, alcohol, or illicit drug abuse. ALLERGIES: No known drug allergies. MEDICATIONS: 1. Vancomycin day #2. 2. Zosyn day #1. 3. Amikacin day #2. 4. Procrit. 5. Hydralazine. 6. Metoprolol. 7. Subcutaneous heparin. REVIEW OF SYSTEMS: Unable to obtain. PHYSICAL EXAMINATION: VITAL SIGNS: Maximum temperature 100.5 degrees, blood pressure 105/71, heart rate in the 90s, respiratory rate 20, and saturating 95% on room air. GENERAL: No apparent distress. Nontoxic appearing. CARDIOVASCULAR: Regular rate and rhythm. No murmurs. PULMONARY: Coarse breath sounds bilaterally. ABDOMEN: Bowel sounds present. Soft, nondistended, and nontender. EXTREMITIES: No edema. LABORATORY DATA: White blood cell count 8.6, hemoglobin 8.8, and platelets 435,000. Sodium 141, potassium 3.6, chloride 94, bicarbonate 26, BUN 50, and creatinine 6.1. Hemoglobin A1c 6.7%. Liver function tests within normal limits. Troponin negative x1. CRP 3.7. Microbiology, 1. 12/31/2016 wound culture pending. 2. 12/31/2016 urine culture mixed gram-positive annabelle. 3. 12/30/2016 blood culture no growth to date. IMAGIN12/30/2016 chest x-ray, mild asymmetric interstitial edema. ASSESSMENT: 1. Possible urinary tract infection. Urine culture is growing mixed gram-positive annabelle and she has a history of growth of vancomycin-sensitive Enterococcus faecalis. 2. Stage II sacral decubitus ulcer, present on admission, not grossly infected. Wound culture is pending. She has a history of growth of MSSA, diphtheroids, Proteus mirabilis, Acinetobacter baumannii, and ESBL positive E. coli. 3. Fever, resolved. No leukocytosis. 4. Vaginal bleed, possible endometrial cancer. 5. End-stage renal disease, on dialysis. 6. Advanced dementia. 7. Diabetes type 2. Hemoglobin A1c 6.7%. 8. halfway resident. 9. Methicillin-resistant Staphylococcus aureus colonized. 10. No known drug allergies. 11. Full Code. PLAN: 1. Continue empiric IV vancomycin and amikacin day #2, Zosyn day # 1, and antibiotic day #2 of 5 to 7 and deescalate soon. 2. Follow up cultures. 3. Monitor CBC and temperatures. 4. Monitor BMP. 5. Monitor chest x-ray. 6. Wound care. Thank you. We will follow. Amaury Guzman M.D. DR: JUSTO JOB#: [id number] CC: Lit Cerna M.D.; Fax#: [phone] Fam M.D. ([facility] – [place], [place]); Fax#: [phone]
[2017-01-02] VITALS: BP 105/56
[2017-01-02 04:00] VITALS: BP 110/53
[2017-01-02] MEDS: Piperacillin/Tazobactam 2.25 GM in D5W 55 ML IV SCH ×3 (05:46→21:25)
[2017-01-02] MEDS: HydrALAZINE 25mg tab ORAL SCH (06:00)
[2017-01-02] MEDS: NovoLOG Insulin Flexpen SUBQ SCH ×4 (06:12→21:24)
[2017-01-02 06:53] LABS: EOSINOPHILS % (AUTO) 2.9 % (0.0-3.0); LYMPHOCYTES % (AUTO) 30.6 % (20.0-45.0); MEAN CORPUSCULAR HEMOGLOBIN 29.7 PG (27.0-31.0); MEAN CORPUSCULAR HGB CONC 32.3 G/DL (32.0-36.0); MEAN CORPUSCULAR VOLUME 92 FL (80-99); MEAN PLATELET VOLUME 11.2 FL (6.5-10.1); MONOCYTES % (AUTO) 9.9 % (1.0-10.0); NEUTROPHILS % (AUTO) 54.7 % (45.0-75.0); PLATELET COUNT 361 K/UL (150-450); RED BLOOD COUNT 2.97 M/UL (4.20-5.40); RED CELL DISTRIBUTION WIDTH 13.4 % (11.6-14.8); WHITE BLOOD COUNT 7.8 K/UL (4.8-10.8)
[2017-01-02 07:07] LABS: CA 27.29 <3.5 U/mL (0.0-38.6)
[2017-01-02 07:17] LABS: ALBUMIN/GLOBULIN RATIO 0.8 (1.0-2.7); CALCIUM 9.4 mg/dL (8.6-10.2); CREATININE 4.3 mg/dL (0.5-0.9); GLOMERULAR FILTRATION RATE 12.6 mL/min (>60); PHOSPHORUS 4.3 mg/dL (2.5-4.8); POTASSIUM 3.4 mEQ/L (3.4-4.9)
[2017-01-02 08:15] VITALS: BP 91/54
[2017-01-02] MEDS: Heparin 5000 units/ml inj SUBQ SCH ×2 (09:04→21:25)
--- NOTE | 2017-01-02 10:50 | General Progress Note ---
Assessment/Plan Status: stable Status Narrative Hgb unchanged Assessment/Plan End-stage renal disease, on hemodialysis every Sunday, Sunday, and Sunday. Last dialysis was on Wednesday 12/27 -received dialysis today 01/01 1. Type 2 diabetes. 2. Hypertension. 3. Anemia of chronic renal disease. & Vaginal bleed 4. Hypercholesterolemia. 5. Peripheral vascular disease. 6. Alzheimer's dementia. 7. ?? LUNG MASS PAST SURGICAL HISTORY: Significant for: 1. Right epsvw-zsq-qwax amputation. 2. Open reduction internal fixation of the left femoral neck on 07/20/2016. Plan; HD 01/01 done-next 01/03 Monitor H&H - EPO Per consultants Antibiotics- Adjust BP meds DC planning?? Subjective ROS Limited/Unobtainable: No Allergies: Coded Allergies: No Known Allergies (Unverified , 09/15/16) Objective Last 24 Hour Vital Signs Date Time Temp Pulse Resp B/P Pulse Ox O2 Delivery O2 Flow Rate FiO2 01/02/17 09:00 108 91/54 01/02/17 08:15 97.9 108 20 91/54 97 Room Air 01/02/17 06:00 110/53 01/02/17 04:00 98.2 90 18 110/53 96 Room Air 01/02/17 00:00 97.9 93 18 105/56 94 Room Air 01/01/17 21:54 101/54 01/01/17 20:00 98.2 93 20 101/54 94 Room Air 01/01/17 16:00 98.7 95 20 117/57 94 Room Air 01/01/17 14:00 105/71 01/01/17 11:46 97.7 97 21 113/61 95 Room Air Intake and Output 01/01/17 01/02/17 19:00 07:00 Intake Total 200 ml 230 ml Output Total 1030 ml 150 ml Balance -830 ml 80 ml Intake Oral 200 ml 120 ml IV Total 110 ml Output Urine Total 30 ml 150 ml Hemodialysis UF 1000 ml # Voids 50 # Bowel Movements 2 2 Laboratory Tests 01/02/17 05:55: White Blood Count 7.8, Red Blood Count 2.97L, Hemoglobin 8.8L, Hematocrit 27.3L , Mean Corpuscular Volume 92, Mean Corpuscular Hemoglobin 29.7, Mean Corpuscular Hemoglobin Concent 32.3, Red Cell Distribution Width 13.4, Platelet Count 361, Mean Platelet Volume 11.2H, Neutrophils (%) (Auto) 54.7, Lymphocytes (%) (Auto) 30.6, Monocytes (%) (Auto) 9.9, Eosinophils (%) (Auto) 2.9, Basophils (%) (Auto) 2.0, Sodium Level 139, Potassium Level 3.4, Chloride Level 92L, Carbon Dioxide Level 30, Anion Gap 17H, Blood Urea Nitrogen 29H, Creatinine 4.3H, Estimat Glomerular Filtration Rate 12.6, Glucose Level 131H, Calcium Level 9.4, Phosphorus Level 4.3, Total Bilirubin 0.5, Aspartate Amino Transf (AST/SGOT) 11, Alanine Aminotransferase (ALT/SGPT) 7, Alkaline Phosphatase 68, C-Reactive Protein, Quantitative 3.0H, Total Protein 7.0, Albumin 3.3L, Globulin 3.7, Albumin/Globulin Ratio 0.8L Height (Feet): 5 Height (Inches): 7.00 Weight (Pounds): 158 General Appearance: no apparent distress Objective no change in physical exam TAQUERIA JACOBSON Jan 02, 2017 10:50
--- NOTE | 2017-01-02 11:02 | General Progress Note ---
Assessment/Plan Status: stable Status Narrative HGB stable Assessment/Plan End-stage renal disease, on hemodialysis every Sunday, Sunday, and Sunday. Last dialysis was on Wednesday 12/27 -received dialysis today 01/01 1. Type 2 diabetes. 2. Hypertension. 3. Anemia of chronic renal disease. & Vaginal bleed 4. Hypercholesterolemia. 5. Peripheral vascular disease. 6. Alzheimer's dementia. 7. ?? LUNG MASS PAST SURGICAL HISTORY: Significant for: 1. Right skjtr-wzm-bmej amputation. 2. Open reduction internal fixation of the left femoral neck on 07/20/2016. Plan; HD 01/01 done-next 01/03 Monitor H&H - EPO Per consultants Antibiotics- Adjust BP meds DC planning?? Subjective ROS Limited/Unobtainable: No Constitutional: Reports: malaise Allergies: Coded Allergies: No Known Allergies (Unverified , 09/15/16) Objective Last 24 Hour Vital Signs Date Time Temp Pulse Resp B/P Pulse Ox O2 Delivery O2 Flow Rate FiO2 01/02/17 09:00 108 91/54 01/02/17 08:15 97.9 108 20 91/54 97 Room Air 01/02/17 06:00 110/53 01/02/17 04:00 98.2 90 18 110/53 96 Room Air 01/02/17 00:00 97.9 93 18 105/56 94 Room Air 01/01/17 21:54 101/54 01/01/17 20:00 98.2 93 20 101/54 94 Room Air 01/01/17 16:00 98.7 95 20 117/57 94 Room Air 01/01/17 14:00 105/71 01/01/17 11:46 97.7 97 21 113/61 95 Room Air Intake and Output 01/01/17 01/02/17 19:00 07:00 Intake Total 200 ml 230 ml Output Total 1030 ml 150 ml Balance -830 ml 80 ml Intake Oral 200 ml 120 ml IV Total 110 ml Output Urine Total 30 ml 150 ml Hemodialysis UF 1000 ml # Voids 50 # Bowel Movements 2 2 Laboratory Tests 01/02/17 05:55: White Blood Count 7.8, Red Blood Count 2.97L, Hemoglobin 8.8L, Hematocrit 27.3L , Mean Corpuscular Volume 92, Mean Corpuscular Hemoglobin 29.7, Mean Corpuscular Hemoglobin Concent 32.3, Red Cell Distribution Width 13.4, Platelet Count 361, Mean Platelet Volume 11.2H, Neutrophils (%) (Auto) 54.7, Lymphocytes (%) (Auto) 30.6, Monocytes (%) (Auto) 9.9, Eosinophils (%) (Auto) 2.9, Basophils (%) (Auto) 2.0, Sodium Level 139, Potassium Level 3.4, Chloride Level 92L, Carbon Dioxide Level 30, Anion Gap 17H, Blood Urea Nitrogen 29H, Creatinine 4.3H, Estimat Glomerular Filtration Rate 12.6, Glucose Level 131H, Calcium Level 9.4, Phosphorus Level 4.3, Total Bilirubin 0.5, Aspartate Amino Transf (AST/SGOT) 11, Alanine Aminotransferase (ALT/SGPT) 7, Alkaline Phosphatase 68, C-Reactive Protein, Quantitative 3.0H, Total Protein 7.0, Albumin 3.3L, Globulin 3.7, Albumin/Globulin Ratio 0.8L Height (Feet): 5 Height (Inches): 7.00 Weight (Pounds): 158 General Appearance: no apparent distress Cardiovascular: tachycardia Respiratory/Chest: lungs clear Abdomen: soft Objective no change in physical exam TAQUERIA JACOBSON Jan 02, 2017 11:02
[2017-01-02 12:12] VITALS: BP 127/67
--- NOTE | 2017-01-02 13:31 | Infectious Diseases Prog Note ---
Assessment/Plan Assessment/Plan ASSESSMENT: 66-year-old female with: // Possible UTI - UCx <10K GNR, h/o VSE.faecalis // Stage II sacral decubitus POA, not grossly infected - WCx pending, h/o MSSA, diptheroids, P.mirabilis, ACB, ESBL(+) E.coli // Fever - resolved, no leukocytosis // Vaginal bleed, possible endometrial CA - cleaning maid eval pending - US: thickened endometrium and 8.5 cm complex left adnexal mass. // ESRD / HD // Advanced dementia // DM2 - HbA1c 6.7% // PVD SP right AKA // NH resident // MRSA colonized // NKDA // Full Code PLAN: - continue empiric amikacin d# 3, zosyn d# 2 ( ABX d# 3 / 5-7 ). DC IV vancomycin, amikacin d# 3 - f/u cultures - monitor CBC, temperatures - monitor BMP. - monitor CXR - wound care Subjective Allergies: Coded Allergies: No Known Allergies (Unverified , 09/15/16) Subjective remains afebrile. Objective Vital Signs Last 24 Hour Vital Signs Date Time Temp Pulse Resp B/P Pulse Ox O2 Delivery O2 Flow Rate FiO2 01/02/17 12:12 97.5 102 18 127/67 95 Room Air 01/02/17 09:00 108 91/54 01/02/17 08:15 97.9 108 20 91/54 97 Room Air 01/02/17 06:00 110/53 01/02/17 04:00 98.2 90 18 110/53 96 Room Air 01/02/17 00:00 97.9 93 18 105/56 94 Room Air 01/01/17 21:54 101/54 01/01/17 20:00 98.2 93 20 101/54 94 Room Air 01/01/17 16:00 98.7 95 20 117/57 94 Room Air 01/01/17 14:00 105/71 Height (Feet): 5 Height (Inches): 7.00 Weight (Pounds): 158 General Appearance: no acute distress Respiratory/Chest: no respiratory distress Cardiovascular: normal rate, regular rhythm Abdomen: normal bowel sounds, soft, non tender, non distended Microbiology Date/Time Source Procedure Growth Status 2/11/17 16:28 Blood Blood Culture - Preliminary NO GROWTH AFTER 48 HOURS Resulted 12/30/16 16:08 Blood Blood Culture - Preliminary NO GROWTH AFTER 48 HOURS Resulted 12/30/16 17:04 Nasal Nares MRSA Culture - Final Staphylococcus Aureus - Mrsa Complete 12/31/16 07:15 Urine,Clean Catch Urine Culture - Preliminary Gram Negative Bacillus 1 Resulted 12/31/16 19:30 Sacral Wound Gram Stain - Final Resulted 12/31/16 19:30 Sacral Wound Wound Culture Pending Resulted Laboratory Tests Test 01/02/17 05:55 White Blood Count 7.8 K/UL (4.8-10.8) Red Blood Count 2.97 M/UL (4.20-5.40) L Hemoglobin 8.8 G/DL (12.0-16.0) L Hematocrit 27.3 % (37.0-47.0) L Mean Corpuscular Volume 92 FL (80-99) Mean Corpuscular Hemoglobin 29.7 PG (27.0-31.0) Mean Corpuscular Hemoglobin Concent 32.3 G/DL (32.0-36.0) Red Cell Distribution Width 13.4 % (11.6-14.8) Platelet Count 361 K/UL (150-450) Mean Platelet Volume 11.2 FL (6.5-10.1) H Neutrophils (%) (Auto) 54.7 % (45.0-75.0) Lymphocytes (%) (Auto) 30.6 % (20.0-45.0) Monocytes (%) (Auto) 9.9 % (1.0-10.0) Eosinophils (%) (Auto) 2.9 % (0.0-3.0) Basophils (%) (Auto) 2.0 % (0.0-2.0) Sodium Level 139 mEQ/L (135-145) Potassium Level 3.4 mEQ/L (3.4-4.9) Chloride Level 92 mEQ/L (98-107) L Carbon Dioxide Level 30 mEQ/L (20-30) Anion Gap 17 (5-15) H Blood Urea Nitrogen 29 mg/dL (7-23) H Creatinine 4.3 mg/dL (0.5-0.9) H Estimat Glomerular Filtration Rate 12.6 mL/min (>60) Glucose Level 131 mg/dL (74-106) H Calcium Level 9.4 mg/dL (8.6-10.2) Phosphorus Level 4.3 mg/dL (2.5-4.8) Total Bilirubin 0.5 mg/dL (0.0-1.2) Aspartate Amino Transf (AST/SGOT) 11 U/L (5-40) Alanine Aminotransferase (ALT/SGPT) 7 U/L (3-33) Alkaline Phosphatase 68 U/L (35-104) C-Reactive Protein, Quantitative 3.0 mg/dL (< 0.5) H Total Protein 7.0 g/dL (6.6-8.7) Albumin 3.3 g/dL (3.5-5.2) L Globulin 3.7 g/dL Albumin/Globulin Ratio 0.8 (1.0-2.7) L Current Medications Medications (Trade) Dose Ordered Sig/Althea Route PRN Reason Start Time Stop Time Status Last Admin Dose Admin Acetaminophen (Tylenol) 650 mg Q4H PRN ORAL fever 12/30/16 19:15 01/29/17 19:14 Albuterol/ Ipratropium (DuoNeb 0.5-3(2.5)mg/3ml) 3 ml Q6HRT PRN HHN dyspnea 12/30/16 19:15 01/04/17 19:14 Amikacin Protocol 1 ea 1 ea DAILY PRN MISC Per rx protocol 12/30/16 19:15 01/29/17 19:14 Amikacin Sulfate/ Dextrose (Amikin/D5W) 56 ml @ 112 mls/hr POSTHD IV 01/01/17 06:00 01/08/17 05:59 Clonidine HCl (Catapres) 0.1 mg Q4H PRN ORAL For High Blood Pressure 170 sy 12/31/16 19:15 01/30/17 19:14 Dextrose (Dextrose 50%) STAT PRN IV Hypoglycemia 12/30/16 19:15 01/29/17 19:14 Epoetin Romeo (Procrit (for ESRD on dialysis)) 10,000 units MON-WED-FRI SUBQ 01/01/17 21:00 01/31/17 20:59 01/01/17 20:58 Heparin Sodium (Porcine) (Heparin 5000 units/ml) 5,000 units EVERY 12 HOURS SUBQ 12/30/16 21:00 01/29/17 20:59 01/02/17 09:04 Insulin Aspart (NovoLOG) BEFORE MEALS AND HS SUBQ 12/30/16 22:00 01/29/17 21:59 01/02/17 11:59 Metoprolol Tartrate (Lopressor) 25 mg Q12HR ORAL 01/03/17 21:00 02/02/17 20:59 Morphine Sulfate (Morphine Sulfate) 1 mg EVERY 4 HOURS PRN IVP For Pain 12/30/16 19:15 01/06/17 19:14 Ondansetron HCl (Zofran) 4 mg Q6H PRN IVP Nausea & Vomiting 12/30/16 19:15 01/29/17 19:14 Piperacillin Sod/ Tazobactam Sod/ Dextrose (Zosyn/D5W) 55 ml @ 110 mls/hr Q8HR IV 12/30/16 22:00 01/06/17 21:59 01/02/17 05:46 Polyethylene Glycol (Miralax) 17 gm HSPRN PRN ORAL Constipation 12/30/16 19:15 01/29/17 19:14 Vancomycin HCl 1 ea 1 ea DAILY PRN MISC Per rx protocol 12/30/16 19:15 01/29/17 19:14 Zolpidem Tartrate (Ambien) 5 mg HSPRN PRN ORAL Insomnia 12/30/16 19:15 01/29/17 19:14 CITLALY CHIN Jan 02, 2017 13:31
[2017-01-02 13:55] LABS: CA 125 11.9 U/mL (0.0-38.1); CA15-3 9.1 U/mL (0.0-25.0)
[2017-01-02 16:00] VITALS: BP 110/62
--- NOTE | 2017-01-02 17:28 | Pulmonology Progress Note ---
Assessment/Plan Problems: (1) Sepsis (2) Vaginal bleeding (3) UTI (urinary tract infection) (4) ESRF (end stage renal failure) (5) Diabetes mellitus Assessment/Plan awaiting Speech And Hearing Director evaluation Dr. Cox doesn't come to [facility] [place] anymore. Dr. Lozano notified. HD by internet site designer Subjective Allergies: Coded Allergies: No Known Allergies (Unverified , 09/15/16) Objective Last 24 Hour Vital Signs Date Time Temp Pulse Resp B/P Pulse Ox O2 Delivery O2 Flow Rate FiO2 01/02/17 16:00 96.9 93 18 110/62 98 Nasal Cannula 01/02/17 12:12 97.5 102 18 127/67 95 Room Air 01/02/17 09:00 108 91/54 01/02/17 08:15 97.9 108 20 91/54 97 Room Air 01/02/17 06:00 110/53 01/02/17 04:00 98.2 90 18 110/53 96 Room Air 01/02/17 00:00 97.9 93 18 105/56 94 Room Air 01/01/17 21:54 101/54 01/01/17 20:00 98.2 93 20 101/54 94 Room Air Intake and Output 01/01/17 01/02/17 19:00 07:00 Intake Total 200 ml 230 ml Output Total 1030 ml 150 ml Balance -830 ml 80 ml Intake Oral 200 ml 120 ml IV Total 110 ml Output Urine Total 30 ml 150 ml Hemodialysis UF 1000 ml # Voids 50 # Bowel Movements 2 2 Objective General Appearance: WD/WN Lines, tubes and drains: peripheral, Hd access HEENT: normocephalic, anicteric Neck: non-tender, supple Respiratory/Chest: chest wall non-tender, lungs clear Cardiovascular/Chest: normal peripheral pulses, regular rhythm Abdomen: normal bowel sounds, non tender Genitourinary/Rectal: normal genital exam Microbiology Date/Time Source Procedure Growth Status 12/31/16 07:15 Urine,Clean Catch Urine Culture - Preliminary Gram Negative Bacillus 1 Resulted 12/31/16 19:30 Sacral Wound Gram Stain - Final Resulted 12/31/16 19:30 Sacral Wound Wound Culture Pending Resulted Laboratory Tests 01/02/17 05:55: White Blood Count 7.8, Red Blood Count 2.97L, Hemoglobin 8.8L, Hematocrit 27.3L , Mean Corpuscular Volume 92, Mean Corpuscular Hemoglobin 29.7, Mean Corpuscular Hemoglobin Concent 32.3, Red Cell Distribution Width 13.4, Platelet Count 361, Mean Platelet Volume 11.2H, Neutrophils (%) (Auto) 54.7, Lymphocytes (%) (Auto) 30.6, Monocytes (%) (Auto) 9.9, Eosinophils (%) (Auto) 2.9, Basophils (%) (Auto) 2.0, Sodium Level 139, Potassium Level 3.4, Chloride Level 92L, Carbon Dioxide Level 30, Anion Gap 17H, Blood Urea Nitrogen 29H, Creatinine 4.3H, Estimat Glomerular Filtration Rate 12.6, Glucose Level 131H, Calcium Level 9.4, Phosphorus Level 4.3, Total Bilirubin 0.5, Aspartate Amino Transf (AST/SGOT) 11, Alanine Aminotransferase (ALT/SGPT) 7, Alkaline Phosphatase 68, C-Reactive Protein, Quantitative 3.0H, Total Protein 7.0, Albumin 3.3L, Globulin 3.7, Albumin/Globulin Ratio 0.8L Current Medications Medications (Trade) Dose Ordered Sig/Althea Route PRN Reason Start Time Stop Time Status Last Admin Dose Admin Acetaminophen (Tylenol) 650 mg Q4H PRN ORAL fever 12/30/16 19:15 01/29/17 19:14 Albuterol/ Ipratropium (DuoNeb 0.5-3(2.5)mg/3ml) 3 ml Q6HRT PRN HHN dyspnea 12/30/16 19:15 01/04/17 19:14 Amikacin Protocol 1 ea 1 ea DAILY PRN MISC Per rx protocol 12/30/16 19:15 01/29/17 19:14 Amikacin Sulfate/ Dextrose (Amikin/D5W) 56 ml @ 112 mls/hr POSTHD IV 01/01/17 06:00 01/08/17 05:59 Clonidine HCl (Catapres) 0.1 mg Q4H PRN ORAL For High Blood Pressure 170 sy 12/31/16 19:15 01/30/17 19:14 Dextrose (Dextrose 50%) STAT PRN IV Hypoglycemia 12/30/16 19:15 01/29/17 19:14 Epoetin Romeo (Procrit (for ESRD on dialysis)) 10,000 units SUN-SUN-SUN SUBQ 01/01/17 21:00 01/31/17 20:59 01/01/17 20:58 Heparin Sodium (Porcine) (Heparin 5000 units/ml) 5,000 units EVERY 12 HOURS SUBQ 12/30/16 21:00 01/29/17 20:59 01/02/17 09:04 Insulin Aspart (NovoLOG) BEFORE MEALS AND HS SUBQ 12/30/16 22:00 01/29/17 21:59 01/02/17 11:59 Metoprolol Tartrate (Lopressor) 25 mg Q12HR ORAL 01/03/17 21:00 02/02/17 20:59 Morphine Sulfate (Morphine Sulfate) 1 mg EVERY 4 HOURS PRN IVP For Pain 12/30/16 19:15 01/06/17 19:14 Ondansetron HCl (Zofran) 4 mg Q6H PRN IVP Nausea & Vomiting 12/30/16 19:15 01/29/17 19:14 Piperacillin Sod/ Tazobactam Sod 2.25 gm/Dextrose 55 ml @ 110 mls/hr Q8HR IV 12/30/16 22:00 01/06/17 21:59 01/02/17 14:26 Polyethylene Glycol (Miralax) 17 gm HSPRN PRN ORAL Constipation 12/30/16 19:15 01/29/17 19:14 Zolpidem Tartrate (Ambien) 5 mg HSPRN PRN ORAL Insomnia 12/30/16 19:15 01/29/17 19:14 IHSAN SILVA Jan 02, 2017 17:28
[2017-01-02] MEDS ORDERED: Tubing IV Secondary IV ONE (17:32)
[2017-01-02] MEDS ORDERED: NS 275ml ONE (17:32)
[2017-01-02 19:00] VITALS: BP 115/68
[2017-01-03] VITALS (8 sets, daily range): BP systolic 103–129; BP diastolic 54–74
--- NOTE | 2017-01-03 00:59 | Consultation ---
DATE OF CONSULTATION: 01/02/2017 GYNECOLOGICAL CONSULT: This is a 66 years old female, resident of [facility], who was admitted to [facility] on 12/30/2016 with multiple medical problems. One of the problems is vaginal bleeding noticed two days ago. HISTORY OF PRESENT ILLNESS: The patient is not able to communicate and any valuable information. According to the staff of the [facility], she started bleeding two days ago and bleeding is not heavy and no clots. This is the second episode of vaginal bleeding, first episode 09/15/2016 when she was admitted to [facility]. According to the workup performed in 08/2016, the patient had an ultrasound and was found that the patient has an adnexal mass, then ultrasound showed thickening of the uterine wall. PAST MEDICAL HISTORY: Significant for type 2 diabetes, hypertension, end-stage renal disease, on hemodialysis, three times a week, anemia, hypercholesterolemia, cerebrovascular disease, and Alzheimer's disease. PAST SURGICAL HISTORY: The patient had right leg amputated above the knee and surgery involved reduction of internal excision of the left femoral neck. MEDICATIONS: Include: 1. Hydralazine 25 mg p.o. 2. Insulin. 3. Megace 20 mL p.o. 4. Metoprolol 50 mg. 5. Nepro liquid. 6. ProStat 45 mL twice a day. ALLERGIES: Not known. PHYSICAL EXAMINATION: Rest of the exam is normal. ABDOMEN: Soft. Bowel sounds present. EXTREMITIES: Negative. Absence of the part of the right knee above the leg after amputation above the knee. PELVIC: Revealed Bartholin, urethral, and [place] glands within normal limits. Vulva and vagina, no lesions. Cervix, no lesions. There is mass present in the left adnexal area. Uterus unable to palpate due to the patient is being very uncooperative. Vagina with a small amount of dark thick blood. IMPRESSION: 1. Postmenopausal bleeding, unknown etiology, possible because of the Megace. On the other hand, due to abnormal findings in the uterus, thickening of the uterine wall and presence of adnexal mass. 2. She has type 2 diabetes. 3. Has hypertension. 4. End-stage renal disease. 5. Anemia. 6. Alzheimer's disease. PLAN: Ultrasound of the vagina and further plans will be discussed after new ultrasound report will be issued. Patt Lozano M.D. DR: Nasra JOB#: [id number] CC:
[2017-01-03] MEDS: Piperacillin/Tazobactam 2.25 GM in D5W 55 ML IV SCH ×2 (05:33→13:29)
[2017-01-03] MEDS: NovoLOG Insulin Flexpen SUBQ SCH ×4 (06:40→21:30)
[2017-01-03] MEDS: Heparin 5000 units/ml inj SUBQ SCH ×2 (08:27→21:30)
[2017-01-03] MEDS: metroNIDAZOLE 500mg tab ORAL SCH ×2 (12:28→21:24)
--- NOTE | 2017-01-03 13:10 | General Progress Note ---
Assessment/Plan Status: unchanged Assessment/Plan End-stage renal disease, on hemodialysis every Sunday, Sunday, and Sunday. Last dialysis was on Wednesday 12/27 -received dialysis today 01/01 1. Type 2 diabetes. 2. Hypertension. 3. Anemia of chronic renal disease. & Vaginal bleed 4. Hypercholesterolemia. 5. Peripheral vascular disease. 6. Alzheimer's dementia. 7. ?? LUNG MASS PAST SURGICAL HISTORY: Significant for: 1. Right kjiwk-ujr-ugon amputation. 2. Open reduction internal fixation of the left femoral neck on 07/20/2016. Plan; HD 01/01 done-next 01/03 done this morning- no labs available Monitor H&H - EPO Per consultants Antibiotics- Adjust BP meds DC planning?? Subjective ROS Limited/Unobtainable: No Constitutional: Reports: malaise Allergies: Coded Allergies: No Known Allergies (Unverified , 09/15/16) Objective Last 24 Hour Vital Signs Date Time Temp Pulse Resp B/P Pulse Ox O2 Delivery O2 Flow Rate FiO2 01/03/17 12:15 97.5 95 18 108/54 99 Room Air 01/03/17 09:21 Room Air 01/03/17 09:19 96.4 97 18 110/60 96 Room Air 01/03/17 08:15 97.3 89 18 106/63 98 Room Air 01/03/17 05:40 Room Air 01/03/17 05:40 96.6 98 20 103/57 97 Room Air 01/03/17 04:00 96.8 94 20 119/59 97 Room Air 01/03/17 00:00 97.2 94 18 126/62 95 Room Air 01/02/17 19:00 97.3 88 18 115/68 98 Room Air 01/02/17 16:00 96.9 93 18 110/62 98 Nasal Cannula Intake and Output 01/02/17 01/03/17 19:00 07:00 Intake Total 440 ml 230 ml Output Total 200 ml 200 ml Balance 240 ml 30 ml Intake Oral 440 ml 120 ml IV Total 110 ml Output Urine Total 200 ml 200 ml # Bowel Movements 3 1 Height (Feet): 5 Height (Inches): 7.00 Weight (Pounds): 158 General Appearance: no apparent distress Objective no change in physical exam TAQUERIA JACOBSON Jan 03, 2017 13:09
--- NOTE | 2017-01-03 13:35 | Diagnostic Imaging Report ---
Indication: Postmenopausal bleeding, history of uterine fibroids Technique: Transabdominal images only. Patient unable tolerate endovaginal imaging Comparison: 09/15/2016. Also 09/16/2016 CT scan Findings: Again demonstrated is a calcified left adnexal region mass which measures 6.9 x 4.7 x 7.5 cm. Mixed echogenicity, mostly hypoechoic material is seen within the endometrium, measuring 4.5 x 3.5 cm. This is not evident on earlier studies. There is a 2.5 cm intramural fibroid noted. The uterus measures 10.7 cm in length by 5.9 cm AP. Neither ovary can be identified. There trace free cul-de-sac fluid. Impression: Exam, due to inability to perform endovaginal imaging Left adnexal region calcified mass is again demonstrated, appears similar to the previous study, most likely represents a calcified exophytic subserosal fibroid Thickened endometrium, with material versus mass centrally. There is may reflect blood within the endometrial cavity, versus endometrial neoplasm. Further evaluation with contrast MRI is recommended as clinically indicated Trace free cul-de-sac fluid. This is not physiologic in a postmenopausal female Note inability to visualize the ovaries
[2017-01-03] MEDS ORDERED: METRONIDAZOLE500 MG ORAL (16:39)
--- NOTE | 2017-01-03 16:52 | Infectious Diseases Prog Note ---
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 // ESRD / HD // Advanced dementia // DM2 - HbA1c 6.7% // PVD SP right AKA // NH resident // MRSA colonized // NKDA // Full Code PLAN: - DC amikacin d# 4, zosyn d# 3. Ok to DC on PO flagyl d# / 10 from ID standpoint ( 01/02 SP IV vancomycin d# 3 ) - f/u final cultures - monitor CBC, temperatures - monitor BMP. - monitor CXR - wound care d/w daughter on phone Subjective Allergies: Coded Allergies: No Known Allergies (Unverified , 09/15/16) Subjective remains afebrile. C.diff+ DC planning ongoing Objective Vital Signs Last 24 Hour Vital Signs Date Time Temp Pulse Resp B/P Pulse Ox O2 Delivery O2 Flow Rate FiO2 01/03/17 12:15 97.5 95 18 108/54 99 Room Air 01/03/17 09:21 Room Air 01/03/17 09:19 96.4 97 18 110/60 96 Room Air 01/03/17 08:15 97.3 89 18 106/63 98 Room Air 01/03/17 05:40 Room Air 01/03/17 05:40 96.6 98 20 103/57 97 Room Air 01/03/17 04:00 96.8 94 20 119/59 97 Room Air 01/03/17 00:00 97.2 94 18 126/62 95 Room Air 01/02/17 19:00 97.3 88 18 115/68 98 Room Air Height (Feet): 5 Height (Inches): 7.00 Weight (Pounds): 158 General Appearance: no acute distress Respiratory/Chest: no respiratory distress Cardiovascular: normal rate, regular rhythm Abdomen: normal bowel sounds, soft, non tender, non distended Microbiology Date/Time Source Procedure Growth Status 01/02/17 23:52 Stool Clostridium difficile Toxin Assay - Final Complete 12/31/16 19:30 Sacral Wound Gram Stain - Final Resulted 12/31/16 19:30 Wound Culture - Preliminary Providencia Stuartii Gram Negative Bacillus 2 Staphylococcus Sp Coag Neg Resulted Current Medications Medications (Trade) Dose Ordered Sig/Althea Route PRN Reason Start Time Stop Time Status Last Admin Dose Admin Acetaminophen (Tylenol) 650 mg Q4H PRN ORAL fever 12/30/16 19:15 01/29/17 19:14 Albuterol/ Ipratropium (DuoNeb 0.5-3(2.5)mg/3ml) 3 ml Q6HRT PRN HHN dyspnea 12/30/16 19:15 01/04/17 19:14 Amikacin Protocol 1 ea 1 ea DAILY PRN MISC Per rx protocol 12/30/16 19:15 01/29/17 19:14 Amikacin Sulfate/ Dextrose (Amikin/D5W) 56 ml @ 112 mls/hr POSTHD IV 01/01/17 06:00 01/08/17 05:59 Clonidine HCl (Catapres) 0.1 mg Q4H PRN ORAL For High Blood Pressure 170 sy 12/31/16 19:15 01/30/17 19:14 Dextrose (Dextrose 50%) STAT PRN IV Hypoglycemia 12/30/16 19:15 01/29/17 19:14 Epoetin Romeo (Procrit (for ESRD on dialysis)) 10,000 units MON-WED-FRI SUBQ 01/01/17 21:00 01/31/17 20:59 01/01/17 20:58 Heparin Sodium (Porcine) (Heparin 5000 units/ml) 5,000 units EVERY 12 HOURS SUBQ 12/30/16 21:00 01/29/17 20:59 01/03/17 08:27 Insulin Aspart (NovoLOG) BEFORE MEALS AND HS SUBQ 12/30/16 22:00 01/29/17 21:59 01/03/17 12:30 Metoprolol Tartrate (Lopressor) 25 mg Q12HR ORAL 01/03/17 21:00 3/17/17 20:59 Metronidazole (Flagyl) 500 mg Q8HR ORAL 01/03/17 12:00 01/10/17 11:59 01/03/17 12:28 Morphine Sulfate (Morphine Sulfate) 1 mg EVERY 4 HOURS PRN IVP For Pain 12/30/16 19:15 01/06/17 19:14 Ondansetron HCl (Zofran) 4 mg Q6H PRN IVP Nausea & Vomiting 12/30/16 19:15 01/29/17 19:14 Piperacillin Sod/ Tazobactam Sod 2.25 gm/Dextrose 55 ml @ 110 mls/hr Q8HR IV 12/30/16 22:00 01/06/17 21:59 01/03/17 13:29 Polyethylene Glycol (Miralax) 17 gm HSPRN PRN ORAL Constipation 12/30/16 19:15 01/29/17 19:14 Zolpidem Tartrate (Ambien) 5 mg HSPRN PRN ORAL Insomnia 12/30/16 19:15 01/29/17 19:14 CITLALY CHIN Jan 03, 2017 16:52
--- NOTE | 2017-01-03 17:55 | Pulmonology Progress Note ---
Assessment/Plan Problems: (1) Sepsis (2) Vaginal bleeding (3) UTI (urinary tract infection) (4) ESRF (end stage renal failure) (5) Diabetes mellitus Assessment/Plan awaiting Chef Concierge evaluation Dr. Cox doesn't come [place] [facility] [place]. [place]. Lozano notified. 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 Subjective Allergies: Coded Allergies: No Known Allergies (Unverified , 09/15/16) Objective Last 24 Hour Vital Signs Date Time Temp Pulse Resp B/P Pulse Ox O2 Delivery O2 Flow Rate FiO2 01/03/17 12:15 97.5 95 18 108/54 99 Room Air 01/03/17 09:21 Room Air 01/03/17 09:19 96.4 97 18 110/60 96 Room Air 01/03/17 08:15 97.3 89 18 106/63 98 Room Air 01/03/17 05:40 Room Air 01/03/17 05:40 96.6 98 20 103/57 97 Room Air 01/03/17 04:00 96.8 94 20 119/59 97 Room Air 01/03/17 00:00 97.2 94 18 126/62 95 Room Air 01/02/17 19:00 97.3 88 18 115/68 98 Room Air Intake and Output 01/02/17 01/03/17 19:00 07:00 Intake Total 440 ml 230 ml Output Total 200 ml 200 ml Balance 240 ml 30 ml Intake Oral 440 ml 120 ml IV Total 110 ml Output Urine Total 200 ml 200 ml # Bowel Movements 3 1 Objective General Appearance: WD/WN Lines, tubes and drains: peripheral, Hd access HEENT: normocephalic, anicteric Neck: non-tender, supple Respiratory/Chest: chest wall non-tender, lungs clear Cardiovascular/Chest: normal peripheral pulses, regular rhythm Abdomen: normal bowel sounds, non tender Genitourinary/Rectal: normal genital exam Microbiology Date/Time Source Procedure Growth Status 01/02/17 23:52 Stool Clostridium difficile Toxin Assay - Final Complete 12/31/16 19:30 Sacral Wound Gram Stain - Final Resulted 12/31/16 19:30 Wound Culture - Preliminary Providencia Stuartii Gram Negative Bacillus 2 Staphylococcus Sp Coag Neg Resulted Current Medications Medications (Trade) Dose Ordered Sig/Althea Route PRN Reason Start Time Stop Time Status Last Admin Dose Admin Acetaminophen (Tylenol) 650 mg Q4H PRN ORAL fever 12/30/16 19:15 01/29/17 19:14 Albuterol/ Ipratropium (DuoNeb 0.5-3(2.5)mg/3ml) 3 ml Q6HRT PRN HHN dyspnea 12/30/16 19:15 01/04/17 19:14 Clonidine HCl (Catapres) 0.1 mg Q4H PRN ORAL For High Blood Pressure 170 sy 12/31/16 19:15 01/30/17 19:14 Dextrose (Dextrose 50%) STAT PRN IV Hypoglycemia 12/30/16 19:15 01/29/17 19:14 Epoetin Romeo (Procrit (for ESRD on dialysis)) 10,000 units SUN-SUN-SUN SUBQ 01/01/17 21:00 01/31/17 20:59 01/01/17 20:58 Heparin Sodium (Porcine) (Heparin 5000 units/ml) 5,000 units EVERY 12 HOURS SUBQ 12/30/16 21:00 01/29/17 20:59 01/03/17 08:27 Insulin Aspart (NovoLOG) BEFORE MEALS AND HS SUBQ 12/30/16 22:00 01/29/17 21:59 01/03/17 17:24 Metoprolol Tartrate (Lopressor) 25 mg Q12HR ORAL 01/03/17 21:00 02/02/17 20:59 Metronidazole (Flagyl) 500 mg Q8HR ORAL 01/03/17 12:00 01/10/17 11:59 01/03/17 12:28 Morphine Sulfate (Morphine Sulfate) 1 mg EVERY 4 HOURS PRN IVP For Pain 12/30/16 19:15 01/06/17 19:14 Ondansetron HCl (Zofran) 4 mg Q6H PRN IVP Nausea & Vomiting 12/30/16 19:15 01/29/17 19:14 Polyethylene Glycol (Miralax) 17 gm HSPRN PRN ORAL Constipation 12/30/16 19:15 01/29/17 19:14 Zolpidem Tartrate (Ambien) 5 mg HSPRN PRN ORAL Insomnia 12/30/16 19:15 01/29/17 19:14 IHSAN SILVA Jan 03, 2017 17:55
[2017-01-03] MEDS: Metoprolol 25mg tab ORAL SCH (21:25)
[2017-01-03] MEDS: Epogen (for ESRD on dialysis) SUBQ SCH (21:26)
[2017-01-04] VITALS: BP 105/59
[2017-01-04 04:00] VITALS: BP 111/61
[2017-01-04] MEDS: metroNIDAZOLE 500mg tab ORAL SCH ×2 (05:46→14:44)
[2017-01-04] MEDS: NovoLOG Insulin Flexpen SUBQ SCH ×2 (06:13→12:54)
[2017-01-04] MEDS: Metoprolol 25mg tab ORAL SCH (08:27)
[2017-01-04 08:43] VITALS: BP 102/57
[2017-01-04] MEDS: Heparin 5000 units/ml inj SUBQ SCH (09:00)
--- NOTE | 2017-01-04 09:57 | General Progress Note ---
Assessment/Plan Status: stable Assessment/Plan End-stage renal disease, on hemodialysis every Sunday, Sunday, and Sunday. Last dialysis was on Wednesday 12/27 -received dialysis today 01/01 1. Type 2 diabetes. 2. Hypertension. 3. Anemia of chronic renal disease. & Vaginal bleed 4. Hypercholesterolemia. 5. Peripheral vascular disease. 6. Alzheimer's dementia. 7. ?? LUNG MASS PAST SURGICAL HISTORY: Significant for: 1. Right [id number] amputation. 2. Open reduction internal fixation of the left femoral neck on 07/20/2016. Plan; no labs today HD in AM- no labs available Monitor H&H - EPO Per consultants Antibiotics- Adjust BP meds DC planning?? Subjective ROS Limited/Unobtainable: No Allergies: Coded Allergies: No Known Allergies (Unverified , 09/15/16) Objective Last 24 Hour Vital Signs Date Time Temp Pulse Resp B/P Pulse Ox O2 Delivery O2 Flow Rate FiO2 01/04/17 08:43 98.1 87 15 102/57 97 Room Air 01/04/17 08:27 72 128/71 01/04/17 04:00 97.9 85 20 111/61 96 Room Air 01/04/17 00:00 97.9 83 20 105/59 97 Room Air 01/03/17 21:25 100 129/74 01/03/17 20:00 97.9 100 19 129/74 95 Room Air 01/03/17 16:00 98.2 100 18 120/63 98 Room Air 01/03/17 12:15 97.5 95 18 108/54 99 Room Air Intake and Output 01/03/17 01/04/17 19:00 07:00 Intake Total 480 ml 280 ml Output Total 250 ml 200 ml Balance 230 ml 80 ml Intake Oral 480 ml 280 ml Output Urine Total 250 ml 200 ml Hemodialysis UF 0 ml # Bowel Movements 2 1 Height (Feet): 5 Height (Inches): 7.00 Weight (Pounds): 158 General Appearance: no apparent distress Cardiovascular: normal rate Respiratory/Chest: decreased breath sounds Abdomen: soft Objective no change in physical exam TAQUERIA JACOBSON Jan 04, 2017 09:57
[2017-01-04 12:06] VITALS: BP 106/56
--- NOTE | 2017-01-04 15:23 | Infectious Diseases Prog Note ---
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 // ESRD / HD // Advanced dementia // DM2 - HbA1c 6.7% // PVD SP right AKA // NH resident // MRSA colonized // NKDA // Full Code PLAN: - Ok to DC on PO flagyl d# 2 / 10 from ID standpoint ( 01/03 SP amikacin d# 4, zosyn d# 3 ) ( 01/02 SP IV vancomycin d# 3 ) - f/u final cultures - monitor CBC, temperatures - monitor BMP. - monitor CXR - wound care Subjective Allergies: Coded Allergies: No Known Allergies (Unverified , 09/15/16) Subjective remains afebrile. C.diff+, dec BM DC planning ongoing Objective Vital Signs Last 24 Hour Vital Signs Date Time Temp Pulse Resp B/P Pulse Ox O2 Delivery O2 Flow Rate FiO2 01/04/17 12:06 97.9 83 15 106/56 96 Room Air 01/04/17 08:43 98.1 87 15 102/57 97 Room Air 01/04/17 08:27 72 128/71 01/04/17 04:00 97.9 85 20 111/61 96 Room Air 01/04/17 00:00 97.9 83 20 105/59 97 Room Air 01/03/17 21:25 100 129/74 01/03/17 20:00 97.9 100 19 129/74 95 Room Air 01/03/17 16:00 98.2 100 18 120/63 98 Room Air Height (Feet): 5 Height (Inches): 7.00 Weight (Pounds): 158 General Appearance: no acute distress Respiratory/Chest: no respiratory distress Cardiovascular: normal rate, regular rhythm Abdomen: normal bowel sounds, soft, non tender, non distended Microbiology Date/Time Source Procedure Growth Status 01/02/17 23:52 Stool Clostridium difficile Toxin Assay - Final Complete Current Medications Medications (Trade) Dose Ordered Sig/Althea Route PRN Reason Start Time Stop Time Status Last Admin Dose Admin Acetaminophen (Tylenol) 650 mg Q4H PRN ORAL fever 12/30/16 19:15 01/29/17 19:14 Albuterol/ Ipratropium (DuoNeb 0.5-3(2.5)mg/3ml) 3 ml Q6HRT PRN HHN dyspnea 12/30/16 19:15 01/04/17 19:14 Clonidine HCl (Catapres) 0.1 mg Q4H PRN ORAL For High Blood Pressure 170 sy 12/31/16 19:15 01/30/17 19:14 Dextrose (Dextrose 50%) STAT PRN IV Hypoglycemia 12/30/16 19:15 01/29/17 19:14 Epoetin Romeo (Procrit (for ESRD on dialysis)) 10,000 units MON-WED-SUN SUBQ 01/01/17 21:00 01/31/17 20:59 01/03/17 21:26 Heparin Sodium (Porcine) (Heparin 5000 units/ml) 5,000 units EVERY 12 HOURS SUBQ 12/30/16 21:00 01/29/17 20:59 01/03/17 21:30 Insulin Aspart (NovoLOG) BEFORE MEALS AND HS SUBQ 12/30/16 22:00 01/29/17 21:59 01/04/17 12:54 Metoprolol Tartrate (Lopressor) 25 mg Q12HR ORAL 01/03/17 21:00 02/02/17 20:59 01/04/17 08:27 Metronidazole (Flagyl) 500 mg Q8HR ORAL 01/03/17 12:00 01/10/17 11:59 01/04/17 14:44 Morphine Sulfate (Morphine Sulfate) 1 mg EVERY 4 HOURS PRN IVP For Pain 12/30/16 19:15 01/06/17 19:14 Ondansetron HCl (Zofran) 4 mg Q6H PRN IVP Nausea & Vomiting 12/30/16 19:15 01/29/17 19:14 Polyethylene Glycol (Miralax) 17 gm HSPRN PRN ORAL Constipation 12/30/16 19:15 01/29/17 19:14 Zolpidem Tartrate (Ambien) 5 mg HSPRN PRN ORAL Insomnia 12/30/16 19:15 01/29/17 19:14 CITLALY CHIN Jan 04, 2017 15:23
--- NOTE | 2017-01-05 13:31 | Discharge Summary ---
Discharge Summary Hospital Course Date of Admission Dec 30, 2016 at 18:30 Date of Discharge Jan 04, 2017 at 16:00 Admitting Diagnosis vaginal bleed/anemia ESRD HPI Kiki Smith is a 66 year old female who was admitted on Dec 30, 2016 at 18:30 for Vaginal Bleed,Anemia End Stage Renal Disease Hospital Course [id number] Discharge Discharge Disposition Patient was discharged to snf Discharge Diagnoses: Melissa Rogers NP Jan 05, 2017 13:31
--- NOTE | 2017-01-06 02:29 | Discharge Summary 2 SIG ---
DATE OF ADMISSION: 12/30/2016 DATE OF DISCHARGE: 01/04/2017 CONSULTANTS: 1. Amaury Guzman M.D. 2. Marques Motta M.D. 3. Patt Lozano M.D. BRIEF HOSPITAL COURSE: The patient is a 66-year-old female with history of end-stage renal failure, diabetes, advanced dementia, history of previous vaginal bleed, who was at [place] few months ago and was discharged with recommendations for outpatient gynecologic followup. She was brought back to the ED with complaints of vaginal bleeding. Hemoglobin was 8.8, hematocrit was 27. BUN 42, creatinine 5.5. Dr Motta was consulted for inpatient dialysis management and Dr. Guzman for possible urinary tract infection and was started on empiric intravenous vancomycin and amikacin. Urine culture showed growth of mixed gram positives. She came in with stage II sacral decubitus ulcer. Wound culture showed growth of Providencia, E. coli ESBL and staphylococcus, coagulase negative staph. Dr. Lozano was consulted and on pelvic examination showed Bartholin, urethral, and [place] glands within normal limits. Vulva and vagina, no lesions. Cervix, no lesions. There is a mass present in the left adnexal area. Uterus is unable to palpate due to the patient being uncooperative. Vagina was with small amount of dark blood. The patient had a repeat vaginal ultrasound showing left adnexal calcified mass, most likely calcified exophytic subserosal fibroid, thickened endometrium, and trace cul-de-sac fluid. The ovaries were not visualized. Intravenous antibiotics were discontinued and the patient was given by mouth Flagyl. She came in with a sacral pressure ulcer. Wound care was rendered. FINAL DIAGNOSES: 1. Vaginal bleed. 2. End-stage renal failure. 3. Sepsis. 4. C. difficile colitis. 5. Diabetes mellitus. 6. Urinary tract infection, extended-spectrum beta-lactamases. 7. Advanced dementia. 8. Peripheral vascular disease, status post right AKA. 9. Stage II sacral decubitus ulcer present on admission that is grossly infected. 10. Postmenopausal bleed. 11. Acute anemia secondary to vaginal bleed. 12. Hypertension. 13. Hypercholesterolemia. 14. Possible lung mass. Lit Cerna M.D. I have been assigned to dictate discharge summary on this account and I was not involved in the patient's management. Melissa Rogers N.P. DR: ALIYAH JOB#: [id number] CC:
[2017-03-07] MEDS ORDERED: ELIQUIS2.5 MG PO (12:18)
== END 2017-01-04 16:00 | DRG 871 ==
LOC: EDBD 15:41 → EMR 16:05 → 4E 18:30 → EDBEDREQ 12-31 06:01 → 4E 12-31 08:18
PROC: 5A1D60Z (ICD-10-PCS; principal; 2017-01-01)
DX: A41.9 Sepsis, unspecified organism (principal); N18.6 End stage renal disease; L89.152 Pressure ulcer of sacral region, stage 2; I12.0 Hypertensive chronic kidney disease with stage 5 chronic kidney disease or end stage renal disease; A04.7 Enterocolitis due to Clostridium difficile; D62 Acute posthemorrhagic anemia; N39.0 Urinary tract infection, site not specified; G30.9 Alzheimer's disease, unspecified; E11.9 Type 2 diabetes mellitus without complications; F02.80 Dementia in other diseases classified elsewhere, unspecified severity, without behavioral disturbance, psychotic disturbance, mood disturbance, and anxiety; D64.9 Anemia, unspecified; I73.9 Peripheral vascular disease, unspecified; Z99.2 Dependence on renal dialysis; R91.8 Other nonspecific abnormal finding of lung field; B96.89 Other specified bacterial agents as the cause of diseases classified elsewhere; Z16.12 Extended spectrum beta lactamase (ESBL) resistance; Z89.611 Acquired absence of right leg above knee; N93.8 Other specified abnormal uterine and vaginal bleeding; E78.00 Pure hypercholesterolemia, unspecified; B96.20 Unspecified Escherichia coli [E. coli] as the cause of diseases classified elsewhere; B95.7 Other staphylococcus as the cause of diseases classified elsewhere; D63.1 Anemia in chronic kidney disease; Z22.322 Carrier or suspected carrier of Methicillin resistant Staphylococcus aureus
CPT/HCPCS: 36415; 71010; 76856; 80053; 80061; 81001; 81003; 82550; 82607; 82728; 82746; 82962; 82977; 83036; 83540; 83550; 83605; 83735; 83880; 84100; 84443; 84484; 84550; 85025; 85610; 85730; 86140; 86300; 86301; 86304; 86900; 86901; 87040; 87070; 87081; 87086; 87181; 87205; 87493; 93005; J1815

== ENCOUNTER 2017-02-28 15:32 | Inpatient (IN) | payer MEDICARE, MEDICAID ==
[~2017-02-28] VITALS: Ht 165.1 cm; Wt 67.6 kg
[~2017-02-28 15:32] MED LIST changes: +ATIVAN2 MG ORAL; +METRONIDAZOLE500 MG ORAL
[2017-02-28 15:50] VITALS: BP 126/72
[2017-02-28 16:19] LABS: BASOPHILS % (AUTO) 1.4 % (0.0-2.0); EOSINOPHILS % (AUTO) 4.4 % (0.0-3.0); LYMPHOCYTES % (AUTO) 28.1 % (20.0-45.0); MEAN CORPUSCULAR HEMOGLOBIN 32.5 PG (27.0-31.0); MEAN CORPUSCULAR VOLUME 96 FL (80-99); MONOCYTES % (AUTO) 8.3 % (1.0-10.0); NEUTROPHILS % (AUTO) 57.8 % (45.0-75.0); PLATELET COUNT 354 K/UL (150-450); RED BLOOD COUNT 2.91 M/UL (4.20-5.40); RED CELL DISTRIBUTION WIDTH 15.2 % (11.6-14.8); WHITE BLOOD COUNT 6.1 K/UL (4.8-10.8)
--- NOTE | 2017-02-28 16:29 | Diagnostic Imaging Report ---
Indication: Chest pain Technique: One view of the chest Comparison: 12/30/2016 Findings: Lungs and pleural spaces are clear. The aorta is tortuous. The heart size is normal. No significant change Impression: No acute process
[2017-02-28 16:31] LABS: TROPONIN I < 0.30 ng/mL (<=0.30)
[2017-02-28 16:36] LABS: ALANINE AMINOTRANSFERASE 7 U/L (3-33); ALBUMIN/GLOBULIN RATIO 1.2 (1.0-2.7); ANION GAP 16 (5-15); ASPARTATE AMINO TRANSFERASE 12 U/L (5-40); CARBON DIOXIDE 27 mEQ/L (20-30); CHLORIDE 100 mEQ/L (98-107); CREATININE 3.4 mg/dL (0.5-0.9); GLOMERULAR FILTRATION RATE 16.5 mL/min (>60); HEMOLYSIS 6; POTASSIUM 3.9 mEQ/L (3.4-4.9); SODIUM 143 mEQ/L (135-145); TOTAL PROTEIN 6.2 g/dL (6.6-8.7)
[2017-02-28] MEDS ORDERED: PROTONIX40 MG ORAL (16:38)
[2017-02-28] MEDS ORDERED: TYLENOL650 MG/20. ORAL (16:38)
[2017-02-28] MEDS ORDERED: IBUPROFEN600 MG ORAL (16:38)
[2017-02-28] MEDS ORDERED: SANTYL30 GM TP (16:38)
[2017-02-28] MEDS ORDERED: ACETAMINOPHEN120 MG RECTAL (16:38)
[2017-02-28] MEDS ORDERED: ATIVAN1 MG ORAL (16:38)
[2017-02-28 16:40] LABS: CKMB 1.9 ng/mL (< 3.8)
--- NOTE | 2017-02-28 17:22 | Emergency Room Report ---
History of Present Illness General Chief Complaint: Chest Pain Source: EMS Present Illness HPI 66-year-old female presents ED complaining of chest pain. Patient is a dialysis patient. 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 Patient does have dementia and is unable to provide any additional details as to the nature of her pain. However when asked her today she did point her chest when I asked if she was having any pain. No reported shortness of breath. Was given aspirin by EMS. Patient did not receive dialysis today. No other aggravating or relieving factors. Denies any other associated symptoms Allergies: Coded Allergies: No Known Allergies (Unverified , 09/15/16) Patient History Past Medical History: DM, HTN, dementia, renal disease, dialysis Past Surgical History: none Pertinent Family History: none Social History: Denies: alcohol use, drug use, smoking Now: No Immunizations: UTD Reviewed Nursing Documentation: PMH: Agreed, PSxH: Agreed Nursing Documentation-PMH Past Medical History: No History, Except For Hx Hypertension: Yes Hx Diabetes: Yes Hx Cancer: No Hx Gastrointestinal Problems: No Hx Dialysis: Yes - MWF ESRD Hx Neurological Problems: Yes - alzheimers Hx Dementia: Yes Review of Systems All Other Systems: negative except mentioned in HPI Physical Exam Vital Signs Date Time Temp Pulse Resp B/P Pulse Ox O2 Delivery O2 Flow Rate FiO2 02/28/17 15:25 98.2 90 20 126/72 100 Room Air Sp02 EP Interpretation: reviewed, normal General Appearance: no apparent distress, alert, GCS 15, non-toxic Head: normocephalic, atraumatic Eyes: bilateral eye PERRL, bilateral eye normal inspection ENT: hearing grossly normal, normal pharynx, no angioedema, normal voice Neck: full range of motion, supple/symm/no masses Respiratory: chest non-tender, lungs clear, normal breath sounds, speaking full sentences Cardiovascular #1: regular rate, rhythm, no edema Cardiovascular #2: 2+ carotid (R), 2+ carotid (L), 2+ radial (R), 2+ radial (L) , 2+ dorsalis pedis (R), 2+ dorsalis pedis (L) Gastrointestinal: normal bowel sounds, non tender, soft, non-distended, no guarding, no rebound Rectal: deferred Genitourinary: normal inspection, no CVA tenderness Musculoskeletal: back normal, gait/station normal, normal range of motion, non- tender, calf tenderness Neurologic: alert, sensory intact, speech normal, other - dementia Psychiatric: other - dementia Reflexes: 3+ bicep (R), 3+ bicep (L), 3+ tricep (R), 3+ tricep (L), 3+ knee (R) , 3+ knee (L) Skin: normal color, no rash, warm/dry, well hydrated Lymphatic: no adenopathy Medical Decision Making Diagnostic Impression: Primary Impression: ESRF (end stage renal failure) Additional Impressions: Acute encephalopathy ACS (acute coronary syndrome) ER Course Hospital Course 66-year-old female presents ED complaining of chest pain. h/o ESRD on dialysis Differential diagnoses include: NJ/unstable angina, contusion, muscle strain, PTX, rib fracture Clinical course Patient placed on stretcher. on air sampling and monitoring. After initial history and physical I ordered labs, EKG, chest x-ray labs reviewed- no leukocytosis, hb/hct stable, Cr elevated. K ok. Trop negative. BNP > 5000 EKG - no acute changes, NSR Chest x-ray- no acute process Case discussed with Dr. Cerna and he agreed to accept the patient to his service for further care and support I. I feel this is a highly complex case requiring extensive working including EKG/Rhythm strip, Xray/CT/US, Blood/urine lab work, repeat exams while in ED, and administration of strong opiates/narcotics for pain control, admission to hospital or close patient follow up. Diagnosis - ACS, ESRF, acute encephaloatphy admitted to telemetry in serious condition Labs Test 02/28/17 15:45 White Blood Count 6.1 K/UL (4.8-10.8) Red Blood Count 2.91 M/UL (4.20-5.40) Hemoglobin 9.5 G/DL (12.0-16.0) Hematocrit 27.9 % (37.0-47.0) Mean Corpuscular Volume 96 FL (80-99) Mean Corpuscular Hemoglobin 32.5 PG (27.0-31.0) Mean Corpuscular Hemoglobin Concent 34.0 G/DL (32.0-36.0) Red Cell Distribution Width 15.2 % (11.6-14.8) Platelet Count 354 K/UL (150-450) Mean Platelet Volume 9.0 FL (6.5-10.1) Neutrophils (%) (Auto) 57.8 % (45.0-75.0) Lymphocytes (%) (Auto) 28.1 % (20.0-45.0) Monocytes (%) (Auto) 8.3 % (1.0-10.0) Eosinophils (%) (Auto) 4.4 % (0.0-3.0) Basophils (%) (Auto) 1.4 % (0.0-2.0) Sodium Level 143 mEQ/L (135-145) Potassium Level 3.9 mEQ/L (3.4-4.9) Chloride Level 100 mEQ/L (98-107) Carbon Dioxide Level 27 mEQ/L (20-30) Anion Gap 16 (5-15) Blood Urea Nitrogen 20 mg/dL (7-23) Creatinine 3.4 mg/dL (0.5-0.9) Estimat Glomerular Filtration Rate 16.5 mL/min (>60) Glucose Level 255 mg/dL (74-106) Calcium Level 9.0 mg/dL (8.6-10.2) Total Bilirubin < 0.2 mg/dL (0.0-1.2) Aspartate Amino Transf (AST/SGOT) 12 U/L (5-40) Alanine Aminotransferase (ALT/SGPT) 7 U/L (3-33) Alkaline Phosphatase 167 U/L (35-104) Total Creatine Kinase 30 U/L (26-140) Creatine Kinase MB 1.9 ng/mL (< 3.8) Creatine Kinase MB Relative Index 6.3 Troponin I < 0.30 ng/mL (<=0.30) Pro-B-Type Natriuretic Peptide 5747 pg/mL (0-125) Total Protein 6.2 g/dL (6.6-8.7) Albumin 3.5 g/dL (3.5-5.2) Globulin 2.7 g/dL Albumin/Globulin Ratio 1.2 (1.0-2.7) EKG Diagnostic Results Rate: normal Rhythm: NSR ST Segments: no acute changes ASA given to the pt in ED: No - given by ems Rhythm Strip Diag. Results EP Interpretation: yes Rhythm: NSR, no PVC's, no ectopy Chest X-Ray Diagnostic Results EP Interpretation: No Findings: no consolidation, no effusion, no pneumothorax, no acute cardiopulmonary disease Number of Views: 1 Last Vital Signs Date Time Temp Pulse Resp B/P Pulse Ox O2 Delivery O2 Flow Rate FiO2 02/28/17 15:25 98.2 90 20 126/72 100 Room Air Status: improved Disposition: ADMITTED INPATIENT Condition: Serious Referrals: IHSAN CERNA (PCP) PAOLA SHERWOOD M.D. Feb 28, 2017 17:22
[2017-02-28 17:59] VITALS: BP 102/68
[2017-02-28] MEDS ORDERED: Enalaprilat 2.5mg/2ml Inj IV PRN (18:00)
[2017-02-28] MEDS ORDERED: DuoNeb 0.5-3(2.5)mg/3ml neb HHN PRN (18:00)
[2017-02-28] MEDS ORDERED: Diltiazem 25mg/5ml IV PRN (18:00)
[2017-02-28] MEDS ORDERED: Miralax 17gm pkt ORAL PRN (18:00)
[2017-02-28] MEDS ORDERED: Ketorolac 30mg Inj IV PRN (18:00)
[2017-02-28] MEDS ORDERED: Morphine Sulfate 2mg/ml Inj IVP PRN (18:00)
[2017-02-28] MEDS ORDERED: Nitroglycerin Subl 0.4mg tab (Bottle Of 25) SL PRN (18:15)
[2017-02-28 19:37] VITALS: BP 128/72
[2017-02-28] MEDS ORDERED: LORAZEPAM2 MG ORAL (19:45)
[2017-02-28] MEDS ORDERED: FERROUS SULFAT325 MG ORAL (19:47)
[2017-02-28] MEDS ORDERED: METOPROLOL TART50 M1 ORAL (19:49)
[2017-02-28] MEDS ORDERED: NEPHRO AID PO (19:50)
[2017-02-28] MEDS ORDERED: ACETAMINOPHEN325 M1 ORAL (19:53)
[2017-02-28] MEDS ORDERED: NOVOLOG MI100 UNIT/3 SQ (19:58)
[2017-02-28] MEDS ORDERED: IBUPROFEN400 MG ORAL (20:01)
[2017-02-28 20:09] VITALS: BP 124/70
[2017-02-28] MEDS: NovoLOG Insulin Flexpen SUBQ SCH (21:00)
[2017-02-28 21:10] VITALS: BP 145/75
[2017-02-28] MEDS ORDERED: Heparin 5000 units/ml inj SUBQ SCH (22:00)
[2017-02-28] MEDS: HydrALAZINE 25mg tab ORAL SCH (22:11)
[2017-02-28 23:51] VITALS: BP 129/66
[2017-03-01] MEDS ORDERED: Heparin 25,000u/D5W 500ml 500 ML IV SCH (00:45)
[2017-03-01 01:14] LABS: BASOPHILS % (AUTO) 1.3 % (0.0-2.0); LYMPHOCYTES % (AUTO) 30.1 % (20.0-45.0); MEAN CORPUSCULAR HEMOGLOBIN 29.3 PG (27.0-31.0); MEAN CORPUSCULAR HGB CONC 31.2 G/DL (32.0-36.0); MEAN CORPUSCULAR VOLUME 94 FL (80-99); MEAN PLATELET VOLUME 8.8 FL (6.5-10.1); MONOCYTES % (AUTO) 9.9 % (1.0-10.0); NEUTROPHILS % (AUTO) 53.7 % (45.0-75.0); PLATELET COUNT 385 K/UL (150-450); RED BLOOD COUNT 2.94 M/UL (4.20-5.40); RED CELL DISTRIBUTION WIDTH 15.4 % (11.6-14.8); WHITE BLOOD COUNT 6.4 K/UL (4.8-10.8)
[2017-03-01 01:22] LABS: PROTHROMBIN TIME 10.2 SEC (9.30-11.50)
[2017-03-01 01:54] LABS: CHOLESTEROL/HDL RATIO 3.7 (3.3-4.4); CRP QUANT 0.4 mg/dL (< 0.5)
[2017-03-01 01:55] LABS: TROPONIN I < 0.30 ng/mL (<=0.30)
[2017-03-01 02:05] LABS: THYROID STIMULATING HORMONE 0.705 uIU/mL (0.300-4.500)
[2017-03-01] MEDS ORDERED: SANTYL30 GM TP (03:35)
[2017-03-01 04:00] VITALS: BP 122/63
[2017-03-01] MEDS: NovoLOG Insulin Flexpen SUBQ SCH ×4 (06:27→21:00)
[2017-03-01] MEDS: HydrALAZINE 25mg tab ORAL SCH ×3 (06:28→22:03)
[2017-03-01 08:00] VITALS: BP 111/67
[2017-03-01] MEDS: Aspirin Baby 81mg ORAL SCH (08:47)
[2017-03-01] MEDS ORDERED: Heparin 5000 units/ml inj IV ONE ×2 (09:30→17:00)
[2017-03-01] MEDS: Heparin 25,000u/D5W 500ml 500 ML IV SCH ×2 (09:31→17:34)
--- NOTE | 2017-03-01 11:52 | History and Physical ---
History of Present Illness General Date patient seen: Mar 01, 2017 Reason for Hospitalization: Chest Pain Present Illness HPI 66-year-old female with hx of Dementia, DM, ESRF, Right AKA, alf resident presents ED complaining of chest pain. She is unable to provide any additional history. . No other aggravating or relieving factors. Denies any other associated symptoms. She looks comfortable and doesn't seem to have any complains. She was diagnosed to have acute DVT in Left femoral vein and started meanwhile on Heparin drip Allergies: Coded Allergies: No Known Allergies (Unverified , 09/15/16) Medication History Scheduled Acetaminophen* (Acetaminophen 325MG Tablet*), 650 MG ORAL DAILY, (Reported) Amino Acids/Protein Hydrolys (Pro-Stat Liquid), 45 ML ORAL TWICE A DAY, ( Reported) Collagenase Clostridium Hist. (Santyl), 1 APPLIC TP DAILY, (Reported) Ferrous Sulfate* (Ferrous Sulfate*), 325 MG ORAL DAILY, (Reported) Hydralazine Hcl* (Hydralazine Hcl*), 25 MG ORAL EVERY 8 HOURS, (Reported) Ibuprofen* (Motrin*), 400 MG ORAL Q6H, (Reported) Lorazepam* (Lorazepam*), 2 MG ORAL DAILY, (Reported) Metoprolol Tartrate* (Metoprolol Tartrate*), 50 MG ORAL DAILY, (Reported) Pantoprazole* (Protonix*), 40 MG ORAL DAILY, (Reported) [Nephro Aid], 1 TAB PO DAILY, (Reported) Miscellaneous Medications Insuln Asp Prt/Insulin Aspart (Novolog Mix 70-30 Flexpen Syrn), 100 UNIT SQ, ( Reported) Discontinued Medications Metronidazole* (Flagyl*), 500 MG ORAL EVERY 8 HOURS Discontinued Reason: Therapy completed Patient History Healthcare decision maker Christiana White Resuscitation status Full Code Advanced Directive on File Past Medical/Surgical History Past Medical/Surgical History: (1) S/P AKA (above knee amputation) unilateral (2) Diabetes mellitus (3) ESRF (end stage renal failure) Review of Systems Constitutional: Reports: no symptoms Eye: Reports: no symptoms ENT: Reports: no symptoms All Other Systems: negative except mentioned in HPI Physical Exam General Appearance: WD/WN, alert, mild distress Lines, tubes and drains: central line HEENT: normocephalic, atraumatic Neck: non-tender, normal alignment Respiratory/Chest: chest wall non-tender, normal breath sounds Last 24 Hour Vital Signs Date Time Temp Pulse Resp B/P Pulse Ox O2 Delivery O2 Flow Rate FiO2 03/01/17 08:50 92 111/67 03/01/17 08:00 98.0 92 18 111/67 100 Room Air 93 03/01/17 06:28 148/70 03/01/17 04:00 97.4 96 18 122/63 95 Room Air 03/01/17 04:00 96 03/01/17 00:00 95 02/28/17 23:51 97.3 95 18 129/66 100 Room Air 02/28/17 22:11 145/75 02/28/17 21:30 90 02/28/17 21:10 98.1 97 18 145/75 97 Room Air 02/28/17 20:57 95 18 124/70 98 Room Air 02/28/17 20:09 95 18 124/70 98 Room Air 02/28/17 19:37 99.3 95 14 128/72 98 Room Air 02/28/17 17:59 95 20 102/68 100 Room Air 02/28/17 15:50 90 20 Room Air 02/28/17 15:50 20 126/72 100 Room Air 02/28/17 15:25 98.2 90 20 126/72 100 Room Air Intake and Output 02/28/17 03/01/17 19:00 07:00 Intake Total 0 ml 88.832 ml Output Total 250 ml Balance 0 ml -161.168 ml Intake Oral 0 ml IV Total 88.832 ml Output Urine Total 250 ml # Bowel Movements 1 Laboratory Tests Test 02/28/17 15:45 03/01/17 00:58 03/01/17 08:30 White Blood Count 6.1 K/UL (4.8-10.8) 6.4 K/UL (4.8-10.8) Red Blood Count 2.91 M/UL (4.20-5.40) L 2.94 M/UL (4.20-5.40) L Hemoglobin 9.5 G/DL (12.0-16.0) L 8.6 G/DL (12.0-16.0) L Hematocrit 27.9 % (37.0-47.0) L 27.6 % (37.0-47.0) L Mean Corpuscular Volume 96 FL (80-99) 94 FL (80-99) Mean Corpuscular Hemoglobin 32.5 PG (27.0-31.0) H 29.3 PG (27.0-31.0) Mean Corpuscular Hemoglobin Concent 34.0 G/DL (32.0-36.0) 31.2 G/DL (32.0-36.0) L Red Cell Distribution Width 15.2 % (11.6-14.8) H 15.4 % (11.6-14.8) H Platelet Count 354 K/UL (150-450) 385 K/UL (150-450) Mean Platelet Volume 9.0 FL (6.5-10.1) 8.8 FL (6.5-10.1) Neutrophils (%) (Auto) 57.8 % (45.0-75.0) 53.7 % (45.0-75.0) Lymphocytes (%) (Auto) 28.1 % (20.0-45.0) 30.1 % (20.0-45.0) Monocytes (%) (Auto) 8.3 % (1.0-10.0) 9.9 % (1.0-10.0) Eosinophils (%) (Auto) 4.4 % (0.0-3.0) H 5.0 % (0.0-3.0) H Basophils (%) (Auto) 1.4 % (0.0-2.0) 1.3 % (0.0-2.0) Sodium Level 143 mEQ/L (135-145) Potassium Level 3.9 mEQ/L (3.4-4.9) Chloride Level 100 mEQ/L (98-107) Carbon Dioxide Level 27 mEQ/L (20-30) Anion Gap 16 (5-15) H Blood Urea Nitrogen 20 mg/dL (7-23) Creatinine 3.4 mg/dL (0.5-0.9) H Estimat Glomerular Filtration Rate 16.5 mL/min (>60) Glucose Level 255 mg/dL (74-106) H Calcium Level 9.0 mg/dL (8.6-10.2) Total Bilirubin < 0.2 mg/dL (0.0-1.2) Aspartate Amino Transf (AST/SGOT) 12 U/L (5-40) Alanine Aminotransferase (ALT/SGPT) 7 U/L (3-33) Alkaline Phosphatase 167 U/L (35-104) H Total Creatine Kinase 30 U/L (26-140) Creatine Kinase MB 1.9 ng/mL (< 3.8) Creatine Kinase MB Relative Index 6.3 Troponin I < 0.30 ng/mL (<=0.30) < 0.30 ng/mL (<=0.30) Pro-B-Type Natriuretic Peptide 5747 pg/mL (0-125) H Total Protein 6.2 g/dL (6.6-8.7) L Albumin 3.5 g/dL (3.5-5.2) Globulin 2.7 g/dL Albumin/Globulin Ratio 1.2 (1.0-2.7) Prothrombin Time 10.2 SEC (9.30-11.50) Prothromb Time International Ratio 1.0 (0.9-1.1) Activated Partial Thromboplast Time 26 SEC (23-33) 38 SEC (23-33) H C-Reactive Protein, Quantitative 0.4 mg/dL (< 0.5) Triglycerides Level 95 mg/dL (< 150) Cholesterol Level 229 mg/dL (< 200) H LDL Cholesterol 148 mg/dL (60-99) H HDL Cholesterol 62 mg/dL (> 60) H Cholesterol/HDL Ratio 3.7 (3.3-4.4) Thyroid Stimulating Hormone (TSH) 0.705 uIU/mL (0.300-4.500) Height (Feet): 5 Height (Inches): 5.00 Weight (Pounds): 138 Medications Current Medications Medications (Trade) Dose Ordered Sig/Althea Route PRN Reason Start Time Stop Time Status Last Admin Dose Admin Acetaminophen (Tylenol) 650 mg Q4H PRN ORAL T>100.5 02/28/17 18:00 03/30/17 17:59 Albuterol/ Ipratropium (DuoNeb 0.5-3(2.5)mg/3ml) 3 ml Q4H PRN HHN Shortness of Breath 02/28/17 18:00 03/05/17 17:59 Aspirin (ASA) 162 mg DAILY ORAL 03/01/17 09:00 03/31/17 08:59 4/13/17 08:47 Dextrose STAT PRN IV Hypoglycemia 02/28/17 18:00 03/30/17 17:59 Diltiazem HCl (Cardizem) 10 mg EVERY HOUR PRN IV heart rate more than 120 02/28/17 18:00 03/30/17 17:59 Enalaprilat (Vasotec) 2.5 mg Q6H PRN IV sbp more than 160 02/28/17 18:00 03/30/17 17:59 Heparin Sodium/ Dextrose (Heparin) 500 ml @ 27.553 mls/ hr ADJUST PER PROTOCOL IV 03/01/17 09:07 03/31/17 00:44 03/01/17 09:31 Hydralazine HCl (Apresoline) 25 mg EVERY 8 HOURS ORAL 02/28/17 22:00 03/30/17 21:59 03/01/17 06:28 Insulin Aspart (NovoLOG) BEFORE MEALS AND HS SUBQ 02/28/17 21:00 03/30/17 20:59 03/01/17 06:27 Metoprolol Succinate (Toprol XL) 50 mg DAILY ORAL 03/01/17 09:00 03/31/17 08:59 03/01/17 08:50 Morphine Sulfate (Morphine Sulfate) 2 mg Q4H PRN IVP Severe Pain (Pain Scale 7-10) 02/28/17 18:00 03/07/17 17:59 03/01/17 09:23 Nitroglycerin (Ntg) 0.4 mg Q5MIN X 3 DOSES PRN SL Prn Chest Pain 02/28/17 18:15 03/30/17 18:14 Ondansetron HCl (Zofran) 4 mg Q6H PRN IVP Nausea & Vomiting 02/28/17 18:00 03/30/17 17:59 Pantoprazole (Protonix) 40 mg DAILY ORAL 03/01/17 09:00 03/31/17 08:59 03/01/17 08:47 Polyethylene Glycol (Miralax) 17 gm DAILYPRN PRN ORAL Constipation 02/28/17 18:00 03/30/17 17:59 Temazepam (Restoril) 15 mg HSPRN PRN ORAL Insomnia 02/28/17 21:00 03/07/17 20:59 Assessment/Plan Problem List: (1) ACS (acute coronary syndrome) ICD Codes: I24.9 - Acute ischemic heart disease, unspecified SNOMED: 446150082 (2) DVT (deep venous thrombosis) ICD Codes: I82.409 - Acute embolism and thrombosis of unspecified deep veins of unspecified lower extremity SNOMED: 321017747 (3) ESRF (end stage renal failure) ICD Codes: N18.6 - End stage renal disease SNOMED: 95028385 (4) Diabetes mellitus ICD Codes: E11.9 - Type 2 diabetes mellitus without complications SNOMED: 92220714 (5) S/P AKA (above knee amputation) unilateral ICD Codes: Z89.619 - Acquired absence of unspecified leg above knee SNOMED: 99867869, 52616302, 442427744 Assessment/Plan serial ekg, troponin echo IV heparin, cardio evaluation HD by nib assembler IHSAN SILVA Mar 01, 2017 11:52
[2017-03-01 12:00] VITALS: BP 141/72
--- NOTE | 2017-03-01 14:05 | Wound Care Consultation ---
Wound Assessment Wound Assessment #1: Wound Number: #1 Wound Present on Admission: Yes New Wound: No Status Change of Wound: No Wound Location Body Site: sacral Wound Type: pressure ulcer Reggie Test: Does not Reggie Pressure Ulcer Stage: deep tissue injury - scattered Wound Thickness: Full Thickness - area noted with scattered full thickness scar tissue Wound Length: 7.0 - scattered Wound Width: 7.0 - scattered Wound Depth: utd Percent of Wound [place]/Red: 50 Percent of Wound Purple/Maroon: 50 Wound Drainage Amount: None Wound Drainage Odor: None/Absent Tissue Surrounding Wound: Intact Wound General Appearance: Reddened - maroon Wound Assessment #2: Wound Number: #2 Wound Present on Admission: Yes New Wound: No Status Change of Wound: No Wound Location Body Site Modif: left, lateral Wound Location Body Site: heel Wound Type: scar Wound Thickness: Full Thickness Wound Length: 1.5 Wound Width: 1.5 Wound Depth: utd Percent of Wound Black/Brown: 100 - hyperpigmented brown full thickness scar Wound Drainage Amount: None Wound Drainage Odor: None/Absent Tissue Surrounding Wound: Intact Wound General Appearance: Asymptomatic, Clean/Dry Wound Assessment #3: Wound Number: #3 Wound Present on Admission: Yes New Wound: No Status Change of Wound: No Wound Location Body Site Modif: left, lateral Wound Location Body Site: heel Wound Type: pressure ulcer Reggie Test: Does not Reggie Pressure Ulcer Stage: deep tissue injury - suspected Wound Thickness: Full Thickness Wound Length: 2.0 Wound Width: 2.0 Wound Depth: utd Percent of Wound Black/Brown: 50 - dark brown color present skin intact. Percent of Wound Purple/Maroon: 50 Wound Drainage Amount: None Wound Drainage Odor: None/Absent Tissue Surrounding Wound: Intact Wound General Appearance: Reddened - noted maroon, dark brown color to site. Wound Assessment #4: Wound Number: #4 Wound Present on Admission: Yes New Wound: No Status Change of Wound: No Wound Location Body Site Modif: left, medial Wound Location Body Site: heel Wound Type: pressure ulcer Reggie Test: Does not Reggie Pressure Ulcer Stage: deep tissue injury - suspected Wound Thickness: Full Thickness Wound Length: 3.0 Wound Width: 3.0 Wound Depth: utd Percent of Wound Black/Brown: 50 - dark brown color present to site, skin is intact. Percent of Wound Purple/Maroon: 50 Wound Drainage Amount: None Wound Drainage Odor: None/Absent Tissue Surrounding Wound: Intact Wound General Appearance: Reddened - maroon , dark brown color Wound Comment #1 Sacral scattered deep tissue injury. #2 Left lateral heel suspected deep tissue injury. #3 Left medial heel suspected deep tissue injury. #4 left lateral heel full thickness scar tissue with hyperpigmentation to site brown in color. Recommendation. - Apply low air loss overlay mattress SPR. - local wound care as ordered. -Turn and reposition. - Offload affected sites. -Avoid shear and friction. -Optimize nutrition. - heel protector. -Assess and notify MD for any change of condition to skin. GOVIND HERNANDES Mar 01, 2017 14:05
[2017-03-01 16:00] VITALS: BP 132/80
--- NOTE | 2017-03-01 16:00 | Consultation ---
Consult Note Consult Note Chief Complaint: Chest Pain 66-year-old female presents ED complaining of chest pain. Patient is a dialysis patient. 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 Patient does have dementia and is unable to provide any additional details as to the nature of her pain. However when asked her today she did point her chest when I asked if she was having any pain. No reported shortness of breath. Was given aspirin by EMS. Patient did not receive dialysis today. No other aggravating or relieving factors. Denies any other associated symptoms Patient History Past Medical History: DM, HTN, dementia, renal disease, dialysis Past Medical History: No History, Except For Hx Hypertension: Yes Hx Diabetes: Yes Hx Dialysis: Yes - MWF ESRD Hx Neurological Problems: Yes - alzheimers Hx Dementia: Yes Assessment/Plan End-stage renal disease, on hemodialysis every Sunday, Sunday, and Sunday. Last dialysis was on Monday 02/26 1. Type 2 diabetes. 2. Hypertension. 3. Anemia of chronic renal disease. & Vaginal bleed 4. Hypercholesterolemia. 5. Peripheral vascular disease. 6. Alzheimer's dementia. 7. ?? LUNG MASS PAST SURGICAL HISTORY: Significant for: 1. Right [id number] amputation. 2. Open reduction internal fixation of the left femoral neck on 07/20/2016. Plan; HD in AM- Monitor H&H - EPO Per consultants Antibiotics- Adjust BP TAQUERIA Sanchez Mar 01, 2017 16:00
[2017-03-01 20:33] VITALS: BP 104/55
--- NOTE | 2017-03-01 20:50 | Cardiology Progress Note ---
Assessment/Plan Assessment/Plan chest pain reported dvt dementia esrd on hd r aka preliem ech o neg ekg non specific t wave chnages repeat trop heparin will fo llow Objective Last 24 Hour Vital Signs Date Time Temp Pulse Resp B/P Pulse Ox O2 Delivery O2 Flow Rate FiO2 03/01/17 20:33 98.6 75 19 104/55 95 Room Air 03/01/17 16:00 97.2 87 17 132/80 98 Room Air 87 03/01/17 16:00 87 03/01/17 13:50 141/72 03/01/17 12:00 97.3 86 17 141/72 98 Room Air 83 03/01/17 12:00 83 03/01/17 08:50 92 111/67 03/01/17 08:00 98.0 92 18 111/67 100 Room Air 93 03/01/17 08:00 93 03/01/17 06:28 148/70 03/01/17 04:00 97.4 96 18 122/63 95 Room Air 03/01/17 04:00 96 03/01/17 00:00 95 02/28/17 23:51 97.3 95 18 129/66 100 Room Air 02/28/17 22:11 145/75 02/28/17 21:30 90 02/28/17 21:10 98.1 97 18 145/75 97 Room Air 02/28/17 20:57 95 18 124/70 98 Room Air Intake and Output 02/28/17 03/01/17 19:00 07:00 Intake Total 0 ml 88.832 ml Output Total 250 ml Balance 0 ml -161.168 ml Intake Oral 0 ml IV Total 88.832 ml Output Urine Total 250 ml # Bowel Movements 1 Laboratory Tests Test 03/01/17 00:58 03/01/17 08:30 03/01/17 15:45 White Blood Count 6.4 K/UL (4.8-10.8) Red Blood Count 2.94 M/UL (4.20-5.40) L Hemoglobin 8.6 G/DL (12.0-16.0) L Hematocrit 27.6 % (37.0-47.0) L Mean Corpuscular Volume 94 FL (80-99) Mean Corpuscular Hemoglobin 29.3 PG (27.0-31.0) Mean Corpuscular Hemoglobin Concent 31.2 G/DL (32.0-36.0) L Red Cell Distribution Width 15.4 % (11.6-14.8) H Platelet Count 385 K/UL (150-450) Mean Platelet Volume 8.8 FL (6.5-10.1) Neutrophils (%) (Auto) 53.7 % (45.0-75.0) Lymphocytes (%) (Auto) 30.1 % (20.0-45.0) Monocytes (%) (Auto) 9.9 % (1.0-10.0) Eosinophils (%) (Auto) 5.0 % (0.0-3.0) H Basophils (%) (Auto) 1.3 % (0.0-2.0) Prothrombin Time 10.2 SEC (9.30-11.50) Prothromb Time International Ratio 1.0 (0.9-1.1) Activated Partial Thromboplast Time 26 SEC (23-33) 38 SEC (23-33) H 54 SEC (23-33) H Troponin I < 0.30 ng/mL (<=0.30) C-Reactive Protein, Quantitative 0.4 mg/dL (< 0.5) Triglycerides Level 95 mg/dL (< 150) Cholesterol Level 229 mg/dL (< 200) H LDL Cholesterol 148 mg/dL (60-99) H HDL Cholesterol 62 mg/dL (> 60) H Cholesterol/HDL Ratio 3.7 (3.3-4.4) Thyroid Stimulating Hormone (TSH) 0.705 uIU/mL (0.300-4.500) TRACY HERNÁNDEZ Mar 01, 2017 20:50
[2017-03-02 00:10] VITALS: BP 126/68
[2017-03-02] MEDS ORDERED: Heparin 25,000u/D5W 500ml 500 ML IV SCH (01:19)
[2017-03-02 04:11] VITALS: BP 142/75
[2017-03-02] MEDS: HydrALAZINE 25mg tab ORAL SCH ×2 (06:12→14:00)
[2017-03-02] MEDS: NovoLOG Insulin Flexpen SUBQ SCH ×4 (06:17→21:18)
[2017-03-02 07:46] VITALS: BP 147/61
[2017-03-02] MEDS: Aspirin Baby 81mg ORAL SCH (09:30)
[2017-03-02 10:25] LABS: TROPONIN I < 0.30 ng/mL (<=0.30)
[2017-03-02 10:26] LABS: ALANINE AMINOTRANSFERASE 6 U/L (3-33); ALBUMIN/GLOBULIN RATIO 0.8 (1.0-2.7); ANION GAP 14 (5-15); ASPARTATE AMINO TRANSFERASE 10 U/L (5-40); CALCIUM 9.2 mg/dL (8.6-10.2); CARBON DIOXIDE 25 mEQ/L (20-30); CHLORIDE 101 mEQ/L (98-107); CREATININE 3.8 mg/dL (0.5-0.9); CRP QUANT 0.6 mg/dL (< 0.5); GLOMERULAR FILTRATION RATE 14.4 mL/min (>60); MAGNESIUM 2.1 mg/dL (1.7-2.5); PHOSPHORUS 3.8 mg/dL (2.5-4.8); POTASSIUM 4.3 mEQ/L (3.4-4.9); SODIUM 140 mEQ/L (135-145); TOTAL PROTEIN 7.4 g/dL (6.6-8.7); URIC ACID 6.2 mg/dL (3.0-7.5)
[2017-03-02 10:27] LABS: HEMOLYSIS 9; IRON 58 ug/dL (37-145); TOTAL IRON BINDING CAPACITY 177 ug/dL (250-400)
[2017-03-02] MEDS ORDERED: Heparin 5000 units/ml inj IV ONE (10:30)
[2017-03-02 10:38] LABS: FERRITIN 702 ng/mL (13-150); THYROID STIMULATING HORMONE 0.675 uIU/mL (0.300-4.500)
[2017-03-02] MEDS: Heparin 25,000u/D5W 500ml 500 ML IV SCH (11:13)
[2017-03-02 11:40] VITALS: BP 112/67
[2017-03-02 13:09] LABS: BASOPHILS % (AUTO) 1.5 % (0.0-2.0); EOSINOPHILS % (AUTO) 4.1 % (0.0-3.0); LYMPHOCYTES % (AUTO) 28.6 % (20.0-45.0); MEAN CORPUSCULAR HEMOGLOBIN 28.6 PG (27.0-31.0); MEAN CORPUSCULAR HGB CONC 30.3 G/DL (32.0-36.0); MEAN CORPUSCULAR VOLUME 94 FL (80-99); MEAN PLATELET VOLUME 9.9 FL (6.5-10.1); MONOCYTES % (AUTO) 8.2 % (1.0-10.0); NEUTROPHILS % (AUTO) 57.6 % (45.0-75.0); PLATELET COUNT 418 K/UL (150-450); WHITE BLOOD COUNT 7.8 K/UL (4.8-10.8)
--- NOTE | 2017-03-02 14:11 | Pulmonology Progress Note ---
Assessment/Plan Problems: (1) ACS (acute coronary syndrome) (2) DVT (deep venous thrombosis) (3) ESRF (end stage renal failure) (4) Diabetes mellitus (5) S/P AKA (above knee amputation) unilateral Subjective Allergies: Coded Allergies: No Known Allergies (Unverified , 09/15/16) Objective Last 24 Hour Vital Signs Date Time Temp Pulse Resp B/P Pulse Ox O2 Delivery O2 Flow Rate FiO2 03/02/17 11:40 97.0 107 20 112/67 96 Room Air 03/02/17 11:30 Room Air 03/02/17 07:46 97.3 82 18 147/61 97 Room Air 03/02/17 06:12 142/75 03/02/17 04:11 98.3 83 19 142/75 96 Room Air 03/02/17 04:00 76 03/02/17 00:13 76 03/02/17 00:10 98.8 87 18 126/68 94 Room Air 03/01/17 22:03 140/70 03/01/17 20:33 98.6 75 19 104/55 95 Room Air 03/01/17 16:00 97.2 87 17 132/80 98 Room Air 87 03/01/17 16:00 87 Intake and Output 03/01/17 03/02/17 19:00 07:00 Intake Total 912.929 ml Output Total 480 ml 1000 ml Balance 432.929 ml -1000 ml Intake Oral 690 ml IV Total 222.929 ml Output Urine Total 480 ml 1000 ml Laboratory Tests 03/01/17 15:45: Activated Partial Thromboplast Time 54H 03/01/17 23:25: Activated Partial Thromboplast Time 120H 03/02/17 09:00: Activated Partial Thromboplast Time 47H, Sodium Level 140, Potassium Level 4.3, Chloride Level 101, Carbon Dioxide Level 25, Anion Gap 14, Blood Urea Nitrogen 25H, Creatinine 3.8H, Estimat Glomerular Filtration Rate 14.4, Glucose Level 151H, Hemoglobin A1c 5.8, Uric Acid 6.2, Calcium Level 9.2, Phosphorus Level 3.8 , Magnesium Level 2.1, Iron Level 58, Total Iron Binding Capacity 177L, Percent Iron Saturation 33, Unsaturated Iron Binding 119, Ferritin 702H, Total Bilirubin 0.2, Gamma Glutamyl Transpeptidase 18, Aspartate Amino Transf (AST/ SGOT) 10, Alanine Aminotransferase (ALT/SGPT) 6, Alkaline Phosphatase 165H, Total Creatine Kinase 33, Troponin I < 0.30, C-Reactive Protein, Quantitative 0.6H, Pro-B-Type Natriuretic Peptide 6243H, Total Protein 7.4, Albumin 3.3L, Globulin 4.1, Albumin/Globulin Ratio 0.8L, Vitamin B12 Level 493, Folate [ Pending], Thyroid Stimulating Hormone (TSH) 0.675 03/02/17 12:15: White Blood Count 7.8, Red Blood Count 3.70L, Hemoglobin 10.6L, Hematocrit 34.9L , Mean Corpuscular Volume 94, Mean Corpuscular Hemoglobin 28.6, Mean Corpuscular Hemoglobin Concent 30.3L, Red Cell Distribution Width 15.0H, Platelet Count 418, Mean Platelet Volume 9.9, Neutrophils (%) (Auto) 57.6, Lymphocytes (%) (Auto) 28.6, Monocytes (%) (Auto) 8.2, Eosinophils (%) (Auto) 4.1H, Basophils (%) (Auto) 1.5 Current Medications Medications (Trade) Dose Ordered Sig/Althea Route PRN Reason Start Time Stop Time Status Last Admin Dose Admin Acetaminophen (Tylenol) 650 mg Q4H PRN ORAL T>100.5 02/28/17 18:00 03/30/17 17:59 Albuterol/ Ipratropium (DuoNeb 0.5-3(2.5)mg/3ml) 3 ml Q4H PRN HHN Shortness of Breath 02/28/17 18:00 03/05/17 17:59 Aspirin (ASA) 162 mg DAILY ORAL 03/01/17 09:00 03/31/17 08:59 03/02/17 09:30 Atorvastatin Calcium (Lipitor) 10 mg BEDTIME ORAL 03/01/17 21:00 03/31/17 20:59 03/01/17 21:00 Dextrose (Dextrose 50%) STAT PRN IV Hypoglycemia 02/28/17 18:00 03/30/17 17:59 Diltiazem HCl (Cardizem) 10 mg EVERY HOUR PRN IV heart rate more than 120 02/28/17 18:00 03/30/17 17:59 Enalaprilat (Vasotec) 2.5 mg Q6H PRN IV sbp more than 160 02/28/17 18:00 03/30/17 17:59 Heparin Sodium/ Dextrose (Heparin) 500 ml @ 30.022 mls/ hr ADJUST PER PROTOCOL IV 03/02/17 10:30 04/01/17 10:29 03/02/17 11:13 Hydralazine HCl (Apresoline) 25 mg EVERY 8 HOURS ORAL 02/28/17 22:00 03/30/17 21:59 03/02/17 06:12 Insulin Aspart (NovoLOG) BEFORE MEALS AND HS SUBQ 02/28/17 21:00 03/30/17 20:59 03/02/17 06:17 Metoprolol Succinate (Toprol XL) 50 mg DAILY ORAL 03/01/17 09:00 03/31/17 08:59 03/01/17 08:50 Morphine Sulfate (Morphine Sulfate) 2 mg Q4H PRN IVP Severe Pain (Pain Scale 7-10) 02/28/17 18:00 03/07/17 17:59 03/01/17 09:23 Nitroglycerin (Ntg) 0.4 mg Q5MIN X 3 DOSES PRN SL Prn Chest Pain 02/28/17 18:15 03/30/17 18:14 Ondansetron HCl (Zofran) 4 mg Q6H PRN IVP Nausea & Vomiting 02/28/17 18:00 03/30/17 17:59 Pantoprazole (Protonix) 40 mg DAILY ORAL 03/01/17 09:00 03/31/17 08:59 03/02/17 09:30 Polyethylene Glycol (Miralax) 17 gm DAILYPRN PRN ORAL Constipation 02/28/17 18:00 03/30/17 17:59 Quetiapine Fumarate 25 mg 25 mg Q12HR ORAL 03/01/17 21:00 03/31/17 20:59 03/02/17 09:30 Temazepam (Restoril) 15 mg HSPRN PRN ORAL Insomnia 02/28/17 21:00 03/07/17 20:59 IHSAN SILVA Mar 02, 2017 14:11
--- NOTE | 2017-03-02 14:51 | General Progress Note ---
Assessment/Plan Status: stable Assessment/Plan End-stage renal disease, on hemodialysis every Sunday, Sunday, and Sunday. status: 1. Type 2 diabetes. 2. Hypertension. 3. Anemia of chronic renal disease. & Vaginal bleed 4. Hypercholesterolemia. 5. Peripheral vascular disease. 6. Alzheimer's dementia. 7. ?? LUNG MASS PAST SURGICAL HISTORY: Significant for: 1. Right [id number] amputation. 2. Open reduction internal fixation of the left femoral neck on 07/20/2016. Plan; HD today Monitor H&H - EPO Per consultants Antibiotics- Adjust BP meds Subjective ROS Limited/Unobtainable: No Constitutional: Reports: malaise, weakness Allergies: Coded Allergies: No Known Allergies (Unverified , 09/15/16) Objective Last 24 Hour Vital Signs Date Time Temp Pulse Resp B/P Pulse Ox O2 Delivery O2 Flow Rate FiO2 03/02/17 14:00 100/60 03/02/17 11:40 97.0 107 20 112/67 96 Room Air 03/02/17 11:30 Room Air 03/02/17 07:46 97.3 82 18 147/61 97 Room Air 03/02/17 06:12 142/75 03/02/17 04:11 98.3 83 19 142/75 96 Room Air 03/02/17 04:00 76 03/02/17 00:13 76 03/02/17 00:10 98.8 87 18 126/68 94 Room Air 03/01/17 22:03 140/70 03/01/17 20:33 98.6 75 19 104/55 95 Room Air 03/01/17 16:00 97.2 87 17 132/80 98 Room Air 87 03/01/17 16:00 87 Intake and Output 03/01/17 03/02/17 19:00 07:00 Intake Total 912.929 ml Output Total 480 ml 1000 ml Balance 432.929 ml -1000 ml Intake Oral 690 ml IV Total 222.929 ml Output Urine Total 480 ml 1000 ml Laboratory Tests 03/01/17 15:45: Activated Partial Thromboplast Time 54H 03/01/17 23:25: Activated Partial Thromboplast Time 120H 03/02/17 09:00: Activated Partial Thromboplast Time 47H, Sodium Level 140, Potassium Level 4.3, Chloride Level 101, Carbon Dioxide Level 25, Anion Gap 14, Blood Urea Nitrogen 25H, Creatinine 3.8H, Estimat Glomerular Filtration Rate 14.4, Glucose Level 151H, Hemoglobin A1c 5.8, Uric Acid 6.2, Calcium Level 9.2, Phosphorus Level 3.8 , Magnesium Level 2.1, Iron Level 58, Total Iron Binding Capacity 177L, Percent Iron Saturation 33, Unsaturated Iron Binding 119, Ferritin 702H, Total Bilirubin 0.2, Gamma Glutamyl Transpeptidase 18, Aspartate Amino Transf (AST/ SGOT) 10, Alanine Aminotransferase (ALT/SGPT) 6, Alkaline Phosphatase 165H, Total Creatine Kinase 33, Troponin I < 0.30, C-Reactive Protein, Quantitative 0.6H, Pro-B-Type Natriuretic Peptide 6243H, Total Protein 7.4, Albumin 3.3L, Globulin 4.1, Albumin/Globulin Ratio 0.8L, Vitamin B12 Level 493, Folate [ Pending], Thyroid Stimulating Hormone (TSH) 0.675 03/02/17 12:15: White Blood Count 7.8, Red Blood Count 3.70L, Hemoglobin 10.6L, Hematocrit 34.9L , Mean Corpuscular Volume 94, Mean Corpuscular Hemoglobin 28.6, Mean Corpuscular Hemoglobin Concent 30.3L, Red Cell Distribution Width 15.0H, Platelet Count 418, Mean Platelet Volume 9.9, Neutrophils (%) (Auto) 57.6, Lymphocytes (%) (Auto) 28.6, Monocytes (%) (Auto) 8.2, Eosinophils (%) (Auto) 4.1H, Basophils (%) (Auto) 1.5 Height (Feet): 5 Height (Inches): 5.00 Weight (Pounds): 139 General Appearance: no apparent distress, lethargic Respiratory/Chest: decreased breath sounds Abdomen: soft TAQUERIA JACOBSON Mar 02, 2017 14:51
[2017-03-02 16:12] VITALS: BP 110/60
[2017-03-02 20:00] VITALS: BP 95/50
--- NOTE | 2017-03-02 20:01 | Cardiology Progress Note ---
Assessment/Plan Assessment/Plan chest pain reported dvt dementia esrd on hd r aka echo neg ekg non specific t wave chnages repeat trop all neg heparin tele neg dc tele soon Subjective ROS Limited/Unobtainable: Yes Subjective demented Objective Last 24 Hour Vital Signs Date Time Temp Pulse Resp B/P Pulse Ox O2 Delivery O2 Flow Rate FiO2 03/02/17 16:12 97.7 88 20 110/60 96 Room Air 03/02/17 14:00 100/60 03/02/17 11:40 97.0 107 20 112/67 96 Room Air 03/02/17 11:30 Room Air 03/02/17 07:46 97.3 82 18 147/61 97 Room Air 03/02/17 06:12 142/75 03/02/17 04:11 98.3 83 19 142/75 96 Room Air 03/02/17 04:00 76 03/02/17 00:13 76 03/02/17 00:10 98.8 87 18 126/68 94 Room Air 03/01/17 22:03 140/70 03/01/17 20:33 98.6 75 19 104/55 95 Room Air General Appearance: no apparent distress, alert Cardiovascular: normal rate Respiratory/Chest: lungs clear, normal breath sounds Abdomen: normal bowel sounds, non tender, soft Extremities: no swelling Intake and Output 03/01/17 03/02/17 19:00 07:00 Intake Total 912.929 ml Output Total 480 ml 1000 ml Balance 432.929 ml -1000 ml Intake Oral 690 ml IV Total 222.929 ml Output Urine Total 480 ml 1000 ml Laboratory Tests Test 03/01/17 23:25 03/02/17 09:00 03/02/17 12:15 03/02/17 17:45 Activated Partial Thromboplast Time 120 SEC (23-33) H 47 SEC (23-33) H 33 SEC (23-33) Sodium Level 140 mEQ/L (135-145) Potassium Level 4.3 mEQ/L (3.4-4.9) Chloride Level 101 mEQ/L (98-107) Carbon Dioxide Level 25 mEQ/L (20-30) Anion Gap 14 (5-15) Blood Urea Nitrogen 25 mg/dL (7-23) H Creatinine 3.8 mg/dL (0.5-0.9) H Estimat Glomerular Filtration Rate 14.4 mL/min (>60) Glucose Level 151 mg/dL (74-106) H Hemoglobin A1c 5.8 % (< 6.0) Uric Acid 6.2 mg/dL (3.0-7.5) Calcium Level 9.2 mg/dL (8.6-10.2) Phosphorus Level 3.8 mg/dL (2.5-4.8) Magnesium Level 2.1 mg/dL (1.7-2.5) Iron Level 58 ug/dL (37-145) Total Iron Binding Capacity 177 ug/dL (250-400) L Percent Iron Saturation 33 % (15-50) Unsaturated Iron Binding 119 ug/dL (112-346) Ferritin 702 ng/mL (13-150) H Total Bilirubin 0.2 mg/dL (0.0-1.2) Gamma Glutamyl Transpeptidase 18 U/L (5-36) Aspartate Amino Transf (AST/SGOT) 10 U/L (5-40) Alanine Aminotransferase (ALT/SGPT) 6 U/L (3-33) Alkaline Phosphatase 165 U/L (35-104) H Total Creatine Kinase 33 U/L (26-140) Troponin I < 0.30 ng/mL (<=0.30) C-Reactive Protein, Quantitative 0.6 mg/dL (< 0.5) H Pro-B-Type Natriuretic Peptide 6243 pg/mL (0-125) H Total Protein 7.4 g/dL (6.6-8.7) Albumin 3.3 g/dL (3.5-5.2) L Globulin 4.1 g/dL Albumin/Globulin Ratio 0.8 (1.0-2.7) L Vitamin B12 Level 493 pg/mL (211-946) Folate Pending Thyroid Stimulating Hormone (TSH) 0.675 uIU/mL (0.300-4.500) White Blood Count 7.8 K/UL (4.8-10.8) Red Blood Count 3.70 M/UL (4.20-5.40) L Hemoglobin 10.6 G/DL (12.0-16.0) L Hematocrit 34.9 % (37.0-47.0) L Mean Corpuscular Volume 94 FL (80-99) Mean Corpuscular Hemoglobin 28.6 PG (27.0-31.0) Mean Corpuscular Hemoglobin Concent 30.3 G/DL (32.0-36.0) L Red Cell Distribution Width 15.0 % (11.6-14.8) H Platelet Count 418 K/UL (150-450) Mean Platelet Volume 9.9 FL (6.5-10.1) Neutrophils (%) (Auto) 57.6 % (45.0-75.0) Lymphocytes (%) (Auto) 28.6 % (20.0-45.0) Monocytes (%) (Auto) 8.2 % (1.0-10.0) Eosinophils (%) (Auto) 4.1 % (0.0-3.0) H Basophils (%) (Auto) 1.5 % (0.0-2.0) TRACY HERNÁNDEZ Mar 02, 2017 20:01
[2017-03-02] MEDS: HydrALAZINE 10mg Tab ORAL SCH (22:00)
[2017-03-03] VITALS: BP 110/60
[2017-03-03 04:00] VITALS: BP 100/56
[2017-03-03] MEDS: NovoLOG Insulin Flexpen SUBQ SCH ×4 (06:48→20:42)
[2017-03-03] MEDS: HydrALAZINE 10mg Tab ORAL SCH (06:49)
--- NOTE | 2017-03-03 08:33 | Pulmonology Progress Note ---
Assessment/Plan Assessment/Plan ASSESSMENT chest pain r/o ACS acute DVT RLE ESRD, on HD DM R AKA PVD episode of NSVT ( 5 beats) anemia of chronic renal disease Alzheimer dementia mild pulmonary HTN DTI multiple, POA PLAN OF CARE serial troponin negative ECG no ischemic changes , all tele negative cardio follows, patient was r/o for acute CO ECHO with EF 60-65% and RVSP of 35 c/w mild pulmonary HTN Venous Duplex BLE with acute DVT CFV, PSF and DSF RLE on Heparin and Coumadin to bridge to therapeutic INR continue ASA and statin BS management with SS of insulin BP management with Hydralazine, BB GI prophylaxis HD as prn nephro, monitor renal parameters, lytes monitor HH, transfuse prn , goal to keep Hgb above 7, anemia work up with stable iron wound care as per wound nurse recommendation transfer to [facility] floor ( cardio cleared for dc telemetry) case discussed and evaluated by supervising physician Subjective Allergies: Coded Allergies: No Known Allergies (Unverified , 09/15/16) Subjective denies chest pain, SOB, palpitations afebrile, no leukocytosis episode of NSVT last night ( 5 beats) Objective Last 24 Hour Vital Signs Date Time Temp Pulse Resp B/P Pulse Ox O2 Delivery O2 Flow Rate FiO2 03/03/17 06:49 110/60 03/03/17 04:00 97 03/03/17 04:00 98.2 105 16 100/56 97 Room Air 03/03/17 01:43 97 03/03/17 00:00 97.7 100 16 110/60 96 Room Air 03/02/17 23:13 85 03/02/17 22:00 93/54 03/02/17 20:00 97.5 87 16 95/50 95 Room Air 03/02/17 16:12 97.7 88 20 110/60 96 Room Air 03/02/17 14:00 100/60 03/02/17 11:40 97.0 107 20 112/67 96 Room Air 03/02/17 11:30 Room Air Intake and Output 03/02/17 03/03/17 19:00 07:00 Intake Total 240 ml Output Total 1730 ml 500 ml Balance -1490 ml -500 ml Intake Oral 240 ml Output Urine Total 500 ml Hemodialysis UF 1730 ml General Appearance: no acute distress HEENT: normocephalic, atraumatic, anicteric Respiratory/Chest: lungs clear, no respiratory distress, no accessory muscle use Cardiovascular: normal rate - occas tachy 100-108, regular rhythm Abdomen: normal bowel sounds, soft, non tender, non distended Genitourinary: normal external genitalia Extremities: other - R AKA, L foot with dresign C/D/I Neurologic/Psychiatric: abnormal gait - bedridden , alert, responsive Musculoskeletal: atrophy - BLE Microbiology Date/Time Source Procedure Growth Status 02/28/17 18:02 Rectum VRE Culture - Final Enterococcus Faecium - Vre Complete Laboratory Tests 03/02/17 09:00: Activated Partial Thromboplast Time 47H, Sodium Level 140, Potassium Level 4.3, Chloride Level 101, Carbon Dioxide Level 25, Anion Gap 14, Blood Urea Nitrogen 25H, Creatinine 3.8H, Estimat Glomerular Filtration Rate 14.4, Glucose Level 151H, Hemoglobin A1c 5.8, Uric Acid 6.2, Calcium Level 9.2, Phosphorus Level 3.8 , Magnesium Level 2.1, Iron Level 58, Total Iron Binding Capacity 177L, Percent Iron Saturation 33, Unsaturated Iron Binding 119, Ferritin 702H, Total Bilirubin 0.2, Gamma Glutamyl Transpeptidase 18, Aspartate Amino Transf (AST/ SGOT) 10, Alanine Aminotransferase (ALT/SGPT) 6, Alkaline Phosphatase 165H, Total Creatine Kinase 33, Troponin I < 0.30, C-Reactive Protein, Quantitative 0.6H, Pro-B-Type Natriuretic Peptide 6243H, Total Protein 7.4, Albumin 3.3L, Globulin 4.1, Albumin/Globulin Ratio 0.8L, Vitamin B12 Level 493, Folate 13.6, Thyroid Stimulating Hormone (TSH) 0.675 03/02/17 12:15: White Blood Count 7.8, Red Blood Count 3.70L, Hemoglobin 10.6L, Hematocrit 34.9L , Mean Corpuscular Volume 94, Mean Corpuscular Hemoglobin 28.6, Mean Corpuscular Hemoglobin Concent 30.3L, Red Cell Distribution Width 15.0H, Platelet Count 418, Mean Platelet Volume 9.9, Neutrophils (%) (Auto) 57.6, Lymphocytes (%) (Auto) 28.6, Monocytes (%) (Auto) 8.2, Eosinophils (%) (Auto) 4.1H, Basophils (%) (Auto) 1.5 03/02/17 17:45: Activated Partial Thromboplast Time 33 03/03/17 03:30: Activated Partial Thromboplast Time 30 Current Medications Medications (Trade) Dose Ordered Sig/Althea Route PRN Reason Start Time Stop Time Status Last Admin Dose Admin Acetaminophen (Tylenol) 650 mg Q4H PRN ORAL T>100.5 02/28/17 18:00 03/30/17 17:59 Albuterol/ Ipratropium (DuoNeb 0.5-3(2.5)mg/3ml) 3 ml Q4H PRN HHN Shortness of Breath 02/28/17 18:00 03/05/17 17:59 Aspirin (ASA) 162 mg DAILY ORAL 03/01/17 09:00 03/31/17 08:59 03/02/17 09:30 Atorvastatin Calcium 10 mg 10 mg BEDTIME ORAL 03/01/17 21:00 03/31/17 20:59 03/02/17 21:19 Dextrose (Dextrose 50%) STAT PRN IV Hypoglycemia 02/28/17 18:00 03/30/17 17:59 Heparin Sodium/ Dextrose (Heparin) 500 ml @ 30.022 mls/ hr ADJUST PER PROTOCOL IV 03/02/17 10:30 04/01/17 10:29 03/02/17 11:13 Hydralazine HCl (Apresoline) 10 mg EVERY 8 HOURS ORAL 03/02/17 22:00 04/01/17 21:59 03/03/17 06:49 Insulin Aspart (NovoLOG) BEFORE MEALS AND HS SUBQ 02/28/17 21:00 03/30/17 20:59 03/03/17 06:48 Metoprolol Succinate (Toprol XL) 50 mg DAILY ORAL 03/01/17 09:00 03/31/17 08:59 03/01/17 08:50 Morphine Sulfate (Morphine Sulfate) 2 mg Q4H PRN IVP Severe Pain (Pain Scale 7-10) 02/28/17 18:00 03/07/17 17:59 03/01/17 09:23 Nitroglycerin (Ntg) 0.4 mg Q5MIN X 3 DOSES PRN SL Prn Chest Pain 02/28/17 18:15 03/30/17 18:14 Ondansetron HCl (Zofran) 4 mg Q6H PRN IVP Nausea & Vomiting 02/28/17 18:00 03/30/17 17:59 Pantoprazole (Protonix) 40 mg DAILY ORAL 03/01/17 09:00 03/31/17 08:59 03/02/17 09:30 Polyethylene Glycol (Miralax) 17 gm DAILYPRN PRN ORAL Constipation 02/28/17 18:00 03/30/17 17:59 Quetiapine Fumarate (SEROquel) 12.5 mg BID ORAL 03/02/17 18:00 04/01/17 17:59 03/02/17 17:27 Quetiapine Fumarate (SEROquel) 25 mg QHS ORAL 03/02/17 21:00 04/01/17 20:59 03/02/17 21:18 Temazepam (Restoril) 15 mg HSPRN PRN ORAL Insomnia 02/28/17 21:00 03/07/17 20:59 [facility]El[facility] CenterKaia Middleton NP Mar 03, 2017 08:33
[2017-03-03] MEDS: Aspirin Baby 81mg ORAL SCH (08:59)
[2017-03-03] MEDS ORDERED: DuoNeb 0.5-3(2.5)mg/3ml neb HHN PRN ×2 (09:00→18:30)
--- NOTE | 2017-03-03 11:05 | General Progress Note ---
Assessment/Plan Status: unchanged Status Narrative dialysed today- Assessment/Plan End-stage renal disease, on hemodialysis every Sunday, Sunday, and Sunday. status: 1. Type 2 diabetes. 2. Hypertension. 3. Anemia of chronic renal disease. & Vaginal bleed 4. Hypercholesterolemia. 5. Peripheral vascular disease. 6. Alzheimer's dementia. 7. ?? LUNG MASS PAST SURGICAL HISTORY: Significant for: 1. Right [id number] amputation. 2. Open reduction internal fixation of the left femoral neck on 07/20/2016. Plan; HD today- done Monitor H&H - EPO Per consultants Antibiotics- Adjust BP meds Subjective ROS Limited/Unobtainable: No Allergies: Coded Allergies: No Known Allergies (Unverified , 09/15/16) Objective Last 24 Hour Vital Signs Date Time Temp Pulse Resp B/P Pulse Ox O2 Delivery O2 Flow Rate FiO2 03/03/17 09:00 108 110/61 03/03/17 08:00 98 03/03/17 08:00 99.1 97 17 98 Room Air 03/03/17 06:49 110/60 03/03/17 04:00 97 03/03/17 04:00 98.2 105 16 100/56 97 Room Air 03/03/17 01:43 97 03/03/17 00:00 97.7 100 16 110/60 96 Room Air 03/02/17 23:13 85 03/02/17 22:00 93/54 03/02/17 20:00 97.5 87 16 95/50 95 Room Air 03/02/17 16:12 97.7 88 20 110/60 96 Room Air 03/02/17 14:00 100/60 03/02/17 11:40 97.0 107 20 112/67 96 Room Air 03/02/17 11:30 Room Air Intake and Output 03/02/17 03/03/17 19:00 07:00 Intake Total 240 ml Output Total 1730 ml 500 ml Balance -1490 ml -500 ml Intake Oral 240 ml Output Urine Total 500 ml Hemodialysis UF 1730 ml Laboratory Tests 03/02/17 12:15: White Blood Count 7.8, Red Blood Count 3.70L, Hemoglobin 10.6L, Hematocrit 34.9L , Mean Corpuscular Volume 94, Mean Corpuscular Hemoglobin 28.6, Mean Corpuscular Hemoglobin Concent 30.3L, Red Cell Distribution Width 15.0H, Platelet Count 418, Mean Platelet Volume 9.9, Neutrophils (%) (Auto) 57.6, Lymphocytes (%) (Auto) 28.6, Monocytes (%) (Auto) 8.2, Eosinophils (%) (Auto) 4.1H, Basophils (%) (Auto) 1.5 03/02/17 17:45: Activated Partial Thromboplast Time 33 03/03/17 03:30: Activated Partial Thromboplast Time 30 Height (Feet): 5 Height (Inches): 5.00 Weight (Pounds): 146 General Appearance: no apparent distress Cardiovascular: tachycardia Respiratory/Chest: decreased breath sounds Abdomen: soft Extremities: other - PVDs Objective other PE not changed TAQUERIA JACOBSON Mar 03, 2017 11:05
[2017-03-03 12:00] VITALS: BP 100/62
[2017-03-03] MEDS: Heparin 25,000u/D5W 500ml 500 ML IV SCH (12:23)
[2017-03-03 13:16] LABS: PROTHROMBIN TIME 10.3 SEC (9.30-11.50)
[2017-03-03] MEDS ORDERED: Heparin 25,000u/D5W 500ml 500 ML IV SCH ×4 (13:23→23:00)
[2017-03-03] MEDS ORDERED: Heparin 5000 units/ml inj IV ONE (13:30)
--- NOTE | 2017-03-03 15:18 | Cardiology Progress Note ---
Assessment/Plan Status: stable, unchanged Status Narrative Pt hemodynamically stable. She had 5 bt nonsustained, irregular VT this am, without symptoms. ESRD - on chronic dialysis Dementia LE DVT - on anticoag hx of CP - w/ neg troponins. ECHO w normal LV function Assessment/Plan Continue telemetry monitoring. Check Mg. continue iv heparin until inr therapeutic on warfarin Subjective ROS Limited/Unobtainable: Yes Subjective Cardiology for Dr. Franco Pt awake/ confused. No c/o pain Objective Last 24 Hour Vital Signs Date Time Temp Pulse Resp B/P Pulse Ox O2 Delivery O2 Flow Rate FiO2 03/03/17 12:00 93 03/03/17 12:00 97.9 86 17 100/62 96 Room Air 03/03/17 09:00 108 110/61 03/03/17 08:00 98 03/03/17 08:00 99.1 97 17 98 Room Air 03/03/17 06:49 110/60 03/03/17 04:00 97 03/03/17 04:00 98.2 105 16 100/56 97 Room Air 03/03/17 01:43 97 03/03/17 00:00 97.7 100 16 110/60 96 Room Air 03/02/17 23:13 85 03/02/17 22:00 93/54 03/02/17 20:00 97.5 87 16 95/50 95 Room Air 03/02/17 16:12 97.7 88 20 110/60 96 Room Air General Appearance: WD/WN, no apparent distress, alert EENT: PERRL/EOMI Neck: no JVD Rhythm: NSR Cardiovascular: normal rate, regular rhythm, no gallop/murmur Respiratory/Chest: lungs clear Abdomen: non tender, soft Extremities: other - R AKA. L UE HD fistula + bruit Intake and Output 03/02/17 03/03/17 19:00 07:00 Intake Total 240 ml Output Total 1730 ml 500 ml Balance -1490 ml -500 ml Intake Oral 240 ml Output Urine Total 500 ml Hemodialysis UF 1730 ml Laboratory Tests Test 03/02/17 17:45 03/03/17 03:30 03/03/17 12:40 Activated Partial Thromboplast Time 33 SEC (23-33) 30 SEC (23-33) 41 SEC (23-33) H Prothrombin Time 10.3 SEC (9.30-11.50) Prothromb Time International Ratio 1.0 (0.9-1.1) Microbiology Date/Time Source Procedure Growth Status 03/01/17 04:00 Nasal Nares Left MRSA Culture - Final NO METHICILLIN RESISTANT STAPH AUREUS... Complete 02/28/17 18:02 Rectum VRE Culture - Final Enterococcus Faecium - Vre Complete LEVI BRAGA Mar 03, 2017 15:17
[2017-03-03 16:00] VITALS: BP 98/58
[2017-03-03] MEDS ORDERED: Warfarin Sodium 5mg ORAL ONE (17:00)
[2017-03-03] MEDS ORDERED: Morphine Sulfate 2mg/ml Inj IVP PRN (18:00)
[2017-03-03] MEDS ORDERED: Nitroglycerin Subl 0.4mg tab (Bottle Of 25) SL PRN (18:00)
[2017-03-03] MEDS ORDERED: Miralax 17gm pkt ORAL PRN (18:00)
[2017-03-03 20:00] VITALS: BP 103/57
[2017-03-03] MEDS: Metoprolol 50mg tab ORAL SCH (20:41)
[2017-03-04] VITALS: BP 107/61
[2017-03-04 00:34] LABS: MEAN CORPUSCULAR HEMOGLOBIN 29.7 PG (27.0-31.0); MEAN CORPUSCULAR HGB CONC 31.8 G/DL (32.0-36.0); MEAN CORPUSCULAR VOLUME 94 FL (80-99); MEAN PLATELET VOLUME 8.2 FL (6.5-10.1); PLATELET COUNT 295 K/UL (150-450); RED BLOOD COUNT 2.62 M/UL (4.20-5.40); RED CELL DISTRIBUTION WIDTH 14.8 % (11.6-14.8); WHITE BLOOD COUNT 13.8 K/UL (4.8-10.8)
[2017-03-04 04:00] VITALS: BP 112/70
[2017-03-04] MEDS: NovoLOG Insulin Flexpen SUBQ SCH ×4 (05:46→20:35)
[2017-03-04 05:49] LABS: BASOPHILS % (AUTO) 0.8 % (0.0-2.0); LYMPHOCYTES % (AUTO) 15.8 % (20.0-45.0); MEAN CORPUSCULAR HEMOGLOBIN 30.4 PG (27.0-31.0); MEAN CORPUSCULAR HGB CONC 32.3 G/DL (32.0-36.0); MEAN CORPUSCULAR VOLUME 94 FL (80-99); MEAN PLATELET VOLUME 8.4 FL (6.5-10.1); MONOCYTES % (AUTO) 6.4 % (1.0-10.0); PLATELET COUNT 296 K/UL (150-450); RED BLOOD COUNT 2.63 M/UL (4.20-5.40); RED CELL DISTRIBUTION WIDTH 14.6 % (11.6-14.8); WHITE BLOOD COUNT 12.6 K/UL (4.8-10.8)
[2017-03-04 06:05] LABS: CALCIUM 9.1 mg/dL (8.6-10.2); CREATININE 3.7 mg/dL (0.5-0.9); GLOMERULAR FILTRATION RATE 14.9 mL/min (>60); POTASSIUM 4.1 mEQ/L (3.4-4.9)
[2017-03-04 06:24] LABS: INR 1.1 (0.9-1.1)
[2017-03-04] MEDS ORDERED: Heparin 25,000u/D5W 500ml 500 ML IV SCH (06:46)
[2017-03-04] MEDS ORDERED: Heparin 5000 units/ml inj IV ONE (07:00)
[2017-03-04 08:00] VITALS: BP 105/59
[2017-03-04] MEDS: Metoprolol 50mg tab ORAL SCH ×2 (08:31→20:32)
[2017-03-04] MEDS: Aspirin Baby 81mg ORAL SCH (08:35)
[2017-03-04] MEDS ORDERED: Metoprolol 50mg tab ORAL SCH (09:00)
[2017-03-04 12:00] VITALS: BP 102/52
--- NOTE | 2017-03-04 13:07 | Pulmonology Progress Note ---
Assessment/Plan Assessment/Plan ASSESSMENT chest pain , possibly 2 to acute DVT r/o ACS - was ruled out acute DVT RLE , likely present on admission ESRD, on HD DM R AKA PVD episode of NSVT ( 5 beats) anemia of chronic renal disease acute metabolic encephalopathy ( likely due to missed HD) on chronic Alzheimer dementia mild pulmonary HTN DTI multiple, POA PLAN OF CARE serial troponin negative ECG no ischemic changes , all tele negative cardio follows, patient was r/o for acute SC ECHO with EF 60-65% and RVSP of 35 c/w mild pulmonary HTN Venous Duplex BLE with acute DVT CFV, PSF and DSF RLE on Heparin and Coumadin to bridge to therapeutic INR, INT still subtherapeutic continue ASA and statin BS management with SS of insulin BP management with Hydralazine, BB GI prophylaxis HD as prn nephro, monitor renal parameters, lytes monitor HH, transfuse prn , goal to keep Hgb above 7, anemia work up with stable iron wound care as per wound nurse recommendation case discussed and evaluated by supervising physician Subjective Allergies: Coded Allergies: No Known Allergies (Unverified , 09/15/16) Subjective denies chest pain, SOB, palpitations afebrile, no leukocytosis INR still subtherapeutic Objective Last 24 Hour Vital Signs Date Time Temp Pulse Resp B/P Pulse Ox O2 Delivery O2 Flow Rate FiO2 03/04/17 10:52 92 15 Room Air 21 03/04/17 08:31 89 105/59 03/04/17 08:00 98.1 89 18 105/59 97 Room Air 03/04/17 04:00 98.5 89 20 112/70 96 Room Air 03/04/17 00:00 97.9 91 20 107/61 97 Room Air 03/03/17 20:41 99 99/59 03/03/17 20:00 97.9 93 20 103/57 95 Room Air 03/03/17 19:19 100 18 Room Air 21 03/03/17 16:00 98 03/03/17 16:00 96.9 103 16 98/58 96 Room Air Intake and Output 03/03/17 03/04/17 19:00 07:00 Intake Total 689.769 ml 180.132 ml Output Total 750 ml 500 ml Balance -60.231 ml -319.868 ml Intake Oral 460 ml IV Total 229.769 ml 180.132 ml Output Urine Total 750 ml 500 ml Objective General Appearance: no acute distress HEENT: normocephalic, atraumatic, anicteric Respiratory/Chest: lungs clear, no respiratory distress, no accessory muscle use Cardiovascular: normal rate - occas tachy 100-108, regular rhythm Abdomen: normal bowel sounds, soft, non tender, non distended Genitourinary: normal external genitalia Extremities: other - R AKA, L foot with dresign C/D/I Neurologic/Psychiatric: abnormal gait - bedridden , alert, responsive Musculoskeletal: atrophy - BLE Laboratory Tests 03/03/17 20:00: Activated Partial Thromboplast Time > 150*H 03/04/17 00:30: White Blood Count 13.8H, Red Blood Count 2.62L, Hemoglobin 7.8L, Hematocrit 24.5L, Mean Corpuscular Volume 94, Mean Corpuscular Hemoglobin 29.7, Mean Corpuscular Hemoglobin Concent 31.8L, Red Cell Distribution Width 14.8, Platelet Count 295, Mean Platelet Volume 8.2, Neutrophils (%) (Auto) , Lymphocytes (%) (Auto) , Monocytes (%) (Auto) , Eosinophils (%) (Auto) , Basophils (%) (Auto) 03/04/17 05:20: Activated Partial Thromboplast Time 61H, White Blood Count 12.6H, Red Blood Count 2.63L, Hemoglobin 8.0L, Hematocrit 24.7L, Mean Corpuscular Volume 94, Mean Corpuscular Hemoglobin 30.4, Mean Corpuscular Hemoglobin Concent 32.3, Red Cell Distribution Width 14.6, Platelet Count 296, Mean Platelet Volume 8.4, Neutrophils (%) (Auto) 74.0, Lymphocytes (%) (Auto) 15.8L, Monocytes (%) (Auto) 6.4, Eosinophils (%) (Auto) 3.0, Basophils (%) (Auto) 0.8, Prothrombin Time 11.0 , Prothromb Time International Ratio 1.1, Sodium Level 135, Potassium Level 4.1 , Chloride Level 93L, Carbon Dioxide Level 25, Anion Gap 17H, Blood Urea Nitrogen 30H, Creatinine 3.7H, Estimat Glomerular Filtration Rate 14.9, Glucose Level 168H, Calcium Level 9.1, Magnesium Level 1.9 Current Medications Medications (Trade) Dose Ordered Sig/Althea Route PRN Reason Start Time Stop Time Status Last Admin Dose Admin Acetaminophen (Tylenol) 650 mg Q4H PRN ORAL T>100.5 03/03/17 18:00 04/02/17 17:59 Albuterol/ Ipratropium (DuoNeb 0.5-3(2.5)mg/3ml) 3 ml Q4H PRN HHN Shortness of Breath 03/03/17 18:30 03/08/17 18:29 Aspirin (ASA) 162 mg DAILY ORAL 03/04/17 09:00 04/03/17 08:59 03/04/17 08:35 Atorvastatin Calcium (Lipitor) 10 mg BEDTIME ORAL 03/03/17 21:00 04/02/17 20:59 03/03/17 20:41 Dextrose (Dextrose 50%) STAT PRN IV Hypoglycemia 03/03/17 18:00 04/02/17 17:59 Heparin Sodium/ Dextrose (Heparin) 500 ml @ 32.424 mls/ hr ADJUST PER PROTOCOL IV 03/04/17 06:46 04/02/17 22:59 03/04/17 06:54 Insulin Aspart (NovoLOG) BEFORE MEALS AND HS SUBQ 03/03/17 21:00 04/02/17 20:59 03/04/17 12:28 Metoprolol Tartrate (Lopressor) 50 mg Q12HR ORAL 03/03/17 21:00 04/02/17 20:59 Morphine Sulfate (Morphine Sulfate) 2 mg Q4H PRN IVP Severe Pain (Pain Scale 7-10) 03/03/17 18:00 03/10/17 17:59 Nitroglycerin (Ntg) 0.4 mg Q5MIN X 3 DOSES PRN SL Prn Chest Pain 03/03/17 18:00 04/02/17 17:59 Ondansetron HCl (Zofran) 4 mg Q6H PRN IVP Nausea & Vomiting 03/03/17 18:00 04/02/17 17:59 Pantoprazole (Protonix) 40 mg DAILY ORAL 03/04/17 09:00 04/03/17 08:59 03/04/17 08:35 Polyethylene Glycol (Miralax) 17 gm DAILYPRN PRN ORAL Constipation 03/03/17 18:00 04/02/17 17:59 Quetiapine Fumarate (SEROquel) 12.5 mg BID ORAL 03/04/17 09:00 04/03/17 08:59 03/04/17 08:35 Quetiapine Fumarate (SEROquel) 25 mg QHS ORAL 03/03/17 21:00 04/02/17 20:59 03/03/17 20:41 Temazepam (Restoril) 15 mg HSPRN PRN ORAL Insomnia 03/03/17 21:00 03/10/17 20:59 Warfarin Sodium 1 ea 1 ea DAILY PRN MISC Per rx protocol 03/04/17 09:00 04/03/17 08:59 Carlos ([facility])Kaia NP Mar 04, 2017 13:07
[2017-03-04] MEDS: Heparin 25,000u/D5W 500ml 500 ML IV SCH ×2 (15:00→23:31)
--- NOTE | 2017-03-04 15:07 | General Progress Note ---
Assessment/Plan Status: stable Assessment/Plan End-stage renal disease, on hemodialysis every Sunday, Sunday, and Sunday. status: 1. Type 2 diabetes. 2. Hypertension. 3. Anemia of chronic renal disease. & Vaginal bleed 4. Hypercholesterolemia. 5. Peripheral vascular disease. 6. Alzheimer's dementia. 7. ?? LUNG MASS PAST SURGICAL HISTORY: Significant for: 1. Right jmnef-dzb-zcth amputation. 2. Open reduction internal fixation of the left femoral neck on 07/20/2016. Plan; HD in am Monitor H&H - EPO Per consultants Antibiotics- Adjust BP meds Subjective ROS Limited/Unobtainable: No Constitutional: Reports: malaise Allergies: Coded Allergies: No Known Allergies (Unverified , 09/15/16) Objective Last 24 Hour Vital Signs Date Time Temp Pulse Resp B/P Pulse Ox O2 Delivery O2 Flow Rate FiO2 03/04/17 12:00 96.8 94 19 102/52 100 Room Air 03/04/17 10:52 92 15 Room Air 21 03/04/17 08:31 89 105/59 03/04/17 08:00 98.1 89 18 105/59 97 Room Air 03/04/17 04:00 98.5 89 20 112/70 96 Room Air 03/04/17 00:00 97.9 91 20 107/61 97 Room Air 03/03/17 20:41 99 99/59 03/03/17 20:00 97.9 93 20 103/57 95 Room Air 03/03/17 19:19 100 18 Room Air 21 03/03/17 16:00 98 03/03/17 16:00 96.9 103 16 98/58 96 Room Air Intake and Output 03/03/17 03/04/17 19:00 07:00 Intake Total 689.769 ml 180.132 ml Output Total 750 ml 500 ml Balance -60.231 ml -319.868 ml Intake Oral 460 ml IV Total 229.769 ml 180.132 ml Output Urine Total 750 ml 500 ml Laboratory Tests 03/03/17 20:00: Activated Partial Thromboplast Time > 150*H 03/04/17 00:30: White Blood Count 13.8H, Red Blood Count 2.62L, Hemoglobin 7.8L, Hematocrit 24.5L, Mean Corpuscular Volume 94, Mean Corpuscular Hemoglobin 29.7, Mean Corpuscular Hemoglobin Concent 31.8L, Red Cell Distribution Width 14.8, Platelet Count 295, Mean Platelet Volume 8.2, Neutrophils (%) (Auto) , Lymphocytes (%) (Auto) , Monocytes (%) (Auto) , Eosinophils (%) (Auto) , Basophils (%) (Auto) 03/04/17 05:20: Activated Partial Thromboplast Time 61H, White Blood Count 12.6H, Red Blood Count 2.63L, Hemoglobin 8.0L, Hematocrit 24.7L, Mean Corpuscular Volume 94, Mean Corpuscular Hemoglobin 30.4, Mean Corpuscular Hemoglobin Concent 32.3, Red Cell Distribution Width 14.6, Platelet Count 296, Mean Platelet Volume 8.4, Neutrophils (%) (Auto) 74.0, Lymphocytes (%) (Auto) 15.8L, Monocytes (%) (Auto) 6.4, Eosinophils (%) (Auto) 3.0, Basophils (%) (Auto) 0.8, Prothrombin Time 11.0 , Prothromb Time International Ratio 1.1, Sodium Level 135, Potassium Level 4.1 , Chloride Level 93L, Carbon Dioxide Level 25, Anion Gap 17H, Blood Urea Nitrogen 30H, Creatinine 3.7H, Estimat Glomerular Filtration Rate 14.9, Glucose Level 168H, Calcium Level 9.1, Magnesium Level 1.9 03/04/17 13:04: Activated Partial Thromboplast Time 98H Height (Feet): 5 Height (Inches): 5.00 Weight (Pounds): 144 General Appearance: no apparent distress, lethargic Objective other PE not changed TAQUERIA JACOBSON Mar 04, 2017 15:07
[2017-03-04 16:00] VITALS: BP 104/44
[2017-03-04] MEDS ORDERED: Warfarin Sodium 5mg ORAL ONE (17:00)
[2017-03-04 20:01] VITALS: BP 139/62
[2017-03-05] VITALS (7 sets, daily range): BP systolic 90–132; BP diastolic 54–68
[2017-03-05 04:58] LABS: INR 1.1 (0.9-1.1); PROTHROMBIN TIME 10.8 SEC (9.30-11.50)
[2017-03-05] MEDS: NovoLOG Insulin Flexpen SUBQ SCH ×4 (05:45→22:50)
[2017-03-05] MEDS: Aspirin Baby 81mg ORAL SCH (08:41)
[2017-03-05] MEDS: Metoprolol 50mg tab ORAL SCH ×2 (08:41→22:46)
--- NOTE | 2017-03-05 12:29 | General Progress Note ---
Assessment/Plan Status: stable Assessment/Plan End-stage renal disease, on hemodialysis every Sunday, Sunday, and Sunday. status: 1. Type 2 diabetes. 2. Hypertension. 3. Anemia of chronic renal disease. & Vaginal bleed 4. Hypercholesterolemia. 5. Peripheral vascular disease. 6. Alzheimer's dementia. 7. ?? LUNG MASS PAST SURGICAL HISTORY: Significant for: 1. Right ibkbf-bol-ghlg amputation. 2. Open reduction internal fixation of the left femoral neck on 07/20/2016. Plan; HD today Monitor H&H - EPO Per consultants Antibiotics- Adjust BP meds Subjective ROS Limited/Unobtainable: No Allergies: Coded Allergies: No Known Allergies (Unverified , 09/15/16) Objective Last 24 Hour Vital Signs Date Time Temp Pulse Resp B/P Pulse Ox O2 Delivery O2 Flow Rate FiO2 03/05/17 11:40 Room Air 03/05/17 11:20 97.0 94 20 114/62 96 Room Air 03/05/17 08:41 86 92/63 03/05/17 08:00 98.1 86 18 92/63 95 Room Air 03/05/17 04:09 97.9 86 17 114/59 98 Room Air 03/05/17 00:03 97.5 89 18 128/63 94 Room Air 03/04/17 20:32 85 139/62 03/04/17 20:01 97.3 85 19 139/62 100 Room Air 03/04/17 19:45 96 15 Room Air 21 03/04/17 16:00 97.7 82 19 104/44 95 Room Air Intake and Output 03/04/17 03/05/17 19:00 07:00 Intake Total 607.982 ml 359.876 ml Output Total 1100 ml Balance 607.982 ml -740.124 ml Intake Oral 250 ml IV Total 357.982 ml 359.876 ml Output Urine Total 1100 ml Laboratory Tests 03/04/17 13:04: Activated Partial Thromboplast Time 98H 03/04/17 21:00: Activated Partial Thromboplast Time 88H 03/05/17 04:10: Activated Partial Thromboplast Time 93H, Prothrombin Time 10.8, Prothromb Time International Ratio 1.1 Height (Feet): 5 Height (Inches): 5.00 Weight (Pounds): 150 General Appearance: no apparent distress Objective other PE not changed TAQUERIA JACOBSON Mar 05, 2017 12:29
[2017-03-05] MEDS: Heparin 25,000u/D5W 500ml 500 ML IV SCH (13:35)
[2017-03-05] MEDS ORDERED: Warfarin Sodium 7.5mg ORAL ONE (17:00)
--- NOTE | 2017-03-05 20:33 | Cardiology Progress Note ---
Assessment/Plan Assessment/Plan chest pain reported dvt dementia esrd on hd r aka echo neg ekg non specific t wave chnages repeat trop all neg heparin to couamdin cross over tele off can use eleiquis instead of couamdin 10 mg bid for 7 days then 5 mg bid Subjective Cardiovascular: Denies: chest pain, lightheadedness Gastrointestinal/Abdominal: Denies: abdominal pain Subjective demented Objective Last 24 Hour Vital Signs Date Time Temp Pulse Resp B/P Pulse Ox O2 Delivery O2 Flow Rate FiO2 03/05/17 20:00 98.1 96 18 90/54 Room Air 03/05/17 17:17 82 16 Room Air 21 03/05/17 16:00 98.1 96 18 132/61 99 Room Air 03/05/17 15:15 Room Air 03/05/17 15:14 97.2 90 18 108/68 99 Room Air 03/05/17 15:04 75 15 Room Air 21 03/05/17 11:40 Room Air 03/05/17 11:20 97.0 94 20 114/62 96 Room Air 03/05/17 08:41 86 92/63 03/05/17 08:00 98.1 86 18 92/63 95 Room Air 03/05/17 04:09 97.9 86 17 114/59 98 Room Air 03/05/17 00:03 97.5 89 18 128/63 94 Room Air 03/04/17 20:32 85 139/62 General Appearance: alert Neck: supple Cardiovascular: normal rate, regular rhythm Respiratory/Chest: lungs clear Abdomen: normal bowel sounds, non tender, soft Extremities: no swelling Intake and Output 03/04/17 03/05/17 19:00 07:00 Intake Total 607.982 ml 359.876 ml Output Total 1100 ml Balance 607.982 ml -740.124 ml Intake Oral 250 ml IV Total 357.982 ml 359.876 ml Output Urine Total 1100 ml Laboratory Tests Test 03/04/17 21:00 03/05/17 04:10 Activated Partial Thromboplast Time 88 SEC (23-33) H 93 SEC (23-33) H Prothrombin Time 10.8 SEC (9.30-11.50) Prothromb Time International Ratio 1.1 (0.9-1.1) TRACY HERNÁNDEZ Mar 05, 2017 20:32
--- NOTE | 2017-03-05 22:44 | Cardiology Report ---
APPROVED REPORT EKG Measurement Heart [id number] Normal sinus rhythm Possible Left atrial enlargement Incomplete left bundle branch block Nonspecific T wave abnormality Prolonged QT Abnormal ECG
[2017-03-06] VITALS: BP 106/60
[2017-03-06 04:00] VITALS: BP 79/40
[2017-03-06 04:36] LABS: INR 1.1 (0.9-1.1); PROTHROMBIN TIME 11.4 SEC (9.30-11.50)
[2017-03-06] MEDS: NovoLOG Insulin Flexpen SUBQ SCH ×2 (07:08→11:44)
--- NOTE | 2017-03-06 08:44 | Cardiology Report ---
APPROVED REPORT EXAM: Two-dimensional and M-mode echocardiogram with Doppler and color Doppler. INDICATION Left ventricular function M-Mode DIMENSIONS IVSd0.8 (0.7-1.1cm)Left Atrium (MM)3.8 (1.6-4.0cm) LVDd3.9 (3.5-5.6cm)Aortic Root2.9 (2.0-3.7cm) PWd1.1 (0.7-1.1cm)Aortic Cusp Exc.1.8 (1.5-2.0cm) LVDs2.4 (2.5-4.0cm) PWs1.2 cm Normal left ventricular chamber size, systolic function and wall motion. Left ventricular ejection fraction estimated to be 60-65 %. Mild left ventricular hypertrophy. No evidence of pericardial fat or effusion. Mild bi-atrial enlargement by 2D. Focal aortic valve sclerosis with adequate cusp excursion Thickened mitral valve leaflets with normal excursion. Mild mitral annulus and aortic root calcification. Pulmonic valve not well visualized. Normal tricuspid valve structure. IVC is normal in size with physiologic collapse. A color flow and spectral Doppler study was performed and revealed: No aortic regurgitation. Mild mitral regurgitation. Left ventricular diastolic dysfunction grade 1. Mild tricuspid regurgitation. Tricuspid systolic velocities suggests peak right ventricular systolic pressure of 35 mmHg Consistent with mild pulmonary hypertension.
[2017-03-06 08:59] VITALS: BP 117/63
[2017-03-06] MEDS ORDERED: Eliquis 2.5mg tablet ORAL SCH (09:00)
[2017-03-06] MEDS: Aspirin Baby 81mg ORAL SCH (09:36)
[2017-03-06] MEDS: Metoprolol 50mg tab ORAL SCH (09:59)
--- NOTE | 2017-03-06 12:11 | General Progress Note ---
Assessment/Plan Status: unchanged Assessment/Plan End-stage renal disease, on hemodialysis every Sunday, Sunday, and Sunday. status: 1. Type 2 diabetes. 2. Hypertension. 3. Anemia of chronic renal disease. & Vaginal bleed 4. Hypercholesterolemia. 5. Peripheral vascular disease. 6. Alzheimer's dementia. 7. ?? LUNG MASS PAST SURGICAL HISTORY: Significant for: 1. Right gdlkw-cwf-srwh amputation. 2. Open reduction internal fixation of the left femoral neck on 07/20/2016. Plan; HD 03/07 Monitor H&H - EPO Per consultants Antibiotics- Adjust BP meds ? DC Subjective ROS Limited/Unobtainable: No Constitutional: Reports: malaise Allergies: Coded Allergies: No Known Allergies (Unverified , 09/15/16) Objective Last 24 Hour Vital Signs Date Time Temp Pulse Resp B/P Pulse Ox O2 Delivery O2 Flow Rate FiO2 03/06/17 09:59 87 102/82 03/06/17 08:59 97.5 86 16 117/63 100 Room Air 03/06/17 04:00 97.8 85 19 79/40 92 Room Air 03/06/17 00:00 97.9 94 20 106/60 Room Air 03/05/17 22:46 140/90 03/05/17 20:00 98.1 96 18 90/54 Room Air 03/05/17 17:17 82 16 Room Air 21 03/05/17 16:00 98.1 96 18 132/61 99 Room Air 03/05/17 15:15 Room Air 03/05/17 15:14 97.2 90 18 108/68 99 Room Air 03/05/17 15:04 75 15 Room Air 21 Intake and Output 03/05/17 03/06/17 19:00 07:00 Intake Total 687.160 ml Output Total 1050 ml 350 ml Balance -362.840 ml -350 ml Intake Oral 360 ml IV Total 327.160 ml Output Urine Total 750 ml 350 ml Hemodialysis UF 300 ml Laboratory Tests 03/06/17 04:10: Prothrombin Time 11.4, Prothromb Time International Ratio 1.1, Activated Partial Thromboplast Time 32 Height (Feet): 5 Height (Inches): 5.00 Weight (Pounds): 149 General Appearance: no apparent distress Objective other PE not changed TAQUERIA JACOBSON Mar 06, 2017 12:11
[2017-03-06 12:30] VITALS: BP 141/80
--- NOTE | 2017-03-06 13:20 | Cardiology Progress Note ---
Assessment/Plan Assessment/Plan chest pain reported dvt dementia esrd on hd r aka anemia echo neg ekg non specific t wave chnages repeat trop all neg now on eleiquis instead of couamdin, eliquis 10 mg bid for 7 days then 5 mg bid d/w dr angelito [facility] now Subjective ROS Limited/Unobtainable: Yes Subjective demented Objective Last 24 Hour Vital Signs Date Time Temp Pulse Resp B/P Pulse Ox O2 Delivery O2 Flow Rate FiO2 03/06/17 12:30 98.1 92 20 141/80 94 Room Air 03/06/17 09:59 87 102/82 03/06/17 08:59 97.5 86 16 117/63 100 Room Air 03/06/17 04:00 97.8 85 19 79/40 92 Room Air 03/06/17 00:00 97.9 94 20 106/60 Room Air 03/05/17 22:46 140/90 03/05/17 20:00 98.1 96 18 90/54 Room Air 03/05/17 17:17 82 16 Room Air 21 03/05/17 16:00 98.1 96 18 132/61 99 Room Air 03/05/17 15:15 Room Air 03/05/17 15:14 97.2 90 18 108/68 99 Room Air 03/05/17 15:04 75 15 Room Air 21 General Appearance: no apparent distress Intake and Output 03/05/17 03/06/17 19:00 07:00 Intake Total 687.160 ml Output Total 1050 ml 350 ml Balance -362.840 ml -350 ml Intake Oral 360 ml IV Total 327.160 ml Output Urine Total 750 ml 350 ml Hemodialysis UF 300 ml Laboratory Tests Test 03/06/17 04:10 Prothrombin Time 11.4 SEC (9.30-11.50) Prothromb Time International Ratio 1.1 (0.9-1.1) Activated Partial Thromboplast Time 32 SEC (23-33) TRACY HERNÁNDEZ Mar 06, 2017 13:20
[2017-03-06] MEDS ORDERED: ASPIRIN81 MG ORAL (13:52)
[2017-03-06] MEDS ORDERED: ELIQUIS2.5 MG PO (13:52)
[2017-03-06] MEDS ORDERED: ATORVASTATIN CA20 MG ORAL (13:53)
[2017-03-06] MEDS ORDERED: MORPHINE 22 MG/1 ML IVP (13:54)
[2017-03-06] MEDS ORDERED: NITROGLYCERIN0.4 MG SL (13:55)
[2017-03-06] MEDS ORDERED: ZOFRAN 4 MG4 MG/2 ML IVP (13:56)
[2017-03-06] MEDS ORDERED: QUETIAPINE FUMA25 MG ORAL (13:57)
[2017-03-06] MEDS ORDERED: TEMAZEPAM15 MG ORAL (13:59)
--- NOTE | 2017-03-06 19:12 | Pulmonology Progress Note ---
Assessment/Plan Problems: (1) ACS (acute coronary syndrome) (2) DVT (deep venous thrombosis) (3) ESRF (end stage renal failure) (4) Diabetes mellitus (5) S/P AKA (above knee amputation) unilateral Assessment/Plan anticoagulation HD sliding scale tolerating diet dc planning Subjective ROS Limited/Unobtainable: No Interval Events: late note for 03/05, no new complains Allergies: Coded Allergies: No Known Allergies (Unverified , 09/15/16) Objective Last 24 Hour Vital Signs Date Time Temp Pulse Resp B/P Pulse Ox O2 Delivery O2 Flow Rate FiO2 03/06/17 12:30 98.1 92 20 141/80 94 Room Air 03/06/17 09:59 87 102/82 03/06/17 08:59 97.5 86 16 117/63 100 Room Air 03/06/17 04:00 97.8 85 19 79/40 92 Room Air 03/06/17 00:00 97.9 94 20 106/60 Room Air 03/05/17 22:46 140/90 03/05/17 20:00 98.1 96 18 90/54 Room Air Intake and Output 03/05/17 03/06/17 19:00 07:00 Intake Total 687.160 ml Output Total 1050 ml 350 ml Balance -362.840 ml -350 ml Intake Oral 360 ml IV Total 327.160 ml Output Urine Total 750 ml 350 ml Hemodialysis UF 300 ml General Appearance: WD/WN HEENT: normocephalic, atraumatic Respiratory/Chest: chest wall non-tender Cardiovascular: normal peripheral pulses Abdomen: normal bowel sounds Genitourinary: normal external genitalia Extremities: no cyanosis Laboratory Tests 03/06/17 04:10: Prothrombin Time 11.4, Prothromb Time International Ratio 1.1, Activated Partial Thromboplast Time 32 IHSAN SILVA Mar 06, 2017 19:12
--- NOTE | 2017-03-06 19:13 | Pulmonology Progress Note ---
Assessment/Plan Problems: (1) ACS (acute coronary syndrome) (2) DVT (deep venous thrombosis) (3) ESRF (end stage renal failure) (4) Diabetes mellitus (5) S/P AKA (above knee amputation) unilateral Assessment/Plan anticoagulation HD sliding scale tolerating diet dc planning ot nursign home today Subjective ROS Limited/Unobtainable: No Interval Events: doing fine, no new complains Allergies: Coded Allergies: No Known Allergies (Unverified , 09/15/16) Objective Last 24 Hour Vital Signs Date Time Temp Pulse Resp B/P Pulse Ox O2 Delivery O2 Flow Rate FiO2 03/06/17 12:30 98.1 92 20 141/80 94 Room Air 03/06/17 09:59 87 102/82 03/06/17 08:59 97.5 86 16 117/63 100 Room Air 03/06/17 04:00 97.8 85 19 79/40 92 Room Air 03/06/17 00:00 97.9 94 20 106/60 Room Air 03/05/17 22:46 140/90 03/05/17 20:00 98.1 96 18 90/54 Room Air Intake and Output 03/05/17 03/06/17 19:00 07:00 Intake Total 687.160 ml Output Total 1050 ml 350 ml Balance -362.840 ml -350 ml Intake Oral 360 ml IV Total 327.160 ml Output Urine Total 750 ml 350 ml Hemodialysis UF 300 ml General Appearance: WD/WN HEENT: normocephalic, atraumatic Respiratory/Chest: chest wall non-tender, lungs clear Cardiovascular: normal peripheral pulses Abdomen: normal bowel sounds Genitourinary: normal external genitalia Extremities: no cyanosis Laboratory Tests 03/06/17 04:10: Prothrombin Time 11.4, Prothromb Time International Ratio 1.1, Activated Partial Thromboplast Time 32 IHSAN SILVA Mar 06, 2017 19:13
[2017-03-07] MEDS ORDERED: ELIQUIS2.5 MG PO (12:18)
--- NOTE | 2017-03-07 12:25 | Discharge Summary ---
Discharge Summary Hospital Course Date of Admission Feb 28, 2017 at 16:07 Date of Discharge Mar 06, 2017 at 15:56 Admitting Diagnosis ACUTE CORONARY SYNDROME HPI Kiki Smith is a 66 year old female who was admitted on Feb 28, 2017 at 16:07 for Acute Coronary Syndrome Hospital Course dc summary #[id number] Discharge Medications Changed Medications: Apixaban (Eliquis) 2.5 Mg Tablet 10 MG PO BID for 90 Days, TAB (Medication details modified) 10 mg po bid x 7 days, then 5 mg po bid Continued Medications: Acetaminophen* (Acetaminophen 325MG Tablet*) 325 Mg Tablet 650 MG ORAL DAILY Give 2 325mg tablets every day for pain management. Give 30 min prior to wound treatment. Aspirin* (Aspirin*) 81 Mg Tab.chew 81 MG ORAL DAILY, TAB Atorvastatin Calcium* (Atorvastatin Calcium*) 20 Mg Tablet 10 MG ORAL BEDTIME, TAB Hydralazine Hcl* (Hydralazine Hcl*) 25 Mg Tablet 25 MG ORAL EVERY 8 HOURS, TAB 0 Refills Ibuprofen* (Motrin*) 400 Mg Tablet 400 MG ORAL Q6H, 0 Refills Insuln Asp Prt/Insulin Aspart (Novolog Mix 70-30 Flexpen Syrn) 100 Unit/1 Ml Insuln.pen 100 UNIT SQ Inject per sliding scale 4 times a day. Lorazepam* (Lorazepam*) 2 Mg Tablet 2 MG ORAL DAILY Take 1 tablet every Mon, Wed, Fri for anxiety prior to dialysis Metoprolol Tartrate* (Metoprolol Tartrate*) 50 Mg Tablet 50 MG ORAL DAILY Morphine Sulfate* (Morphine Sulfate*) 2 Mg/1 Ml Cartridge 2 MG IVP Q4HR PRN for For Pain, EA Nitroglycerin (Nitroglycerin) 0.4 Mg Tab.subl 0.4 MG SL PRN for Prn Chest Pain, TAB Ondansetron* (Zofran*) 4 Mg/2 Ml Vial 4 MG IVP Q6H PRN for Nausea & Vomiting, VIAL Pantoprazole* (Protonix*) 40 Mg Tablet.dr 40 MG ORAL DAILY, TAB Quetiapine Fumarate* (Seroquel*) 25 Mg Tablet 12.5 MG ORAL BID, TAB Temazepam (Temazepam*) 15 Mg Capsule 15 MG ORAL HS PRN for Insomnia, #30 CAP 0 Refills Discharge Condition Upon Discharge: stable Discharge Disposition Patient was discharged to SNF/Subacute Facility(03) Discharge Diagnoses: Gonzalez (Vanchtein),Kaia TRIPLETT Mar 07, 2017 12:25
--- NOTE | 2017-03-08 01:18 | Discharge Summary 2 SIG ---
DATE OF ADMISSION: 02/28/2017 DATE OF DISCHARGE: 03/06/2017 The patient is admitted under Dr. Cerna. REASON FOR ADMISSION: The patient is a 66-year-old female, presented to emergency room complaining of chest pain. The patient is with end-stage renal disease, on hemodialysis. The patient was scheduled for hemodialysis today, but was told that rather she had a chest pain and instead ambulance was called and the patient came to the emergency room for the evaluation. The patient has underlying dementia and unable to provide additional information as to the nature of her pain. No reported shortness of breath. Aspirin given by lining feller. The patient has a history of diabetes, hypertension, and end-stage renal disease. Initial vital signs were stable in the emergency room. No leukocytosis. Stable hemoglobin and hematocrit. Creatinine is elevated, which is expected in lieu of end-stage renal disease. Potassium stable. Troponin negative. ProBNP above 5000. EKG revealed normal sinus rhythm. No acute ischemic changes. Chest x-ray revealed no acute cardiopulmonary process. The patient was admitted due to the multiple risk factors for acute coronary syndrome. INITIAL DIAGNOSES: 1. Chest pain, rule out acute coronary syndrome. 2. Acute encephalopathy. 3. End-stage renal disease. 4. Hypertension. 5. Diabetes. HOSPITAL STAY: The patient was admitted to telemetry floor. Serial troponins were negative. EKG revealed no ischemic changes. Old telemetry was negative. Cardio followed. The patient was ruled out for acute myocardial infarction by systems integration analyst. Echocardiogram revealed preserved ejection fraction of 60% to 65% and right ventricular systolic pressure of 35 consistent with mild pulmonary hypertension. Venous duplex of bilateral lower extremity revealed acute DVT of common femoral vein, proximal superficial femoral, and distal superficial femoral of right lower extremity. The patient was started on heparin and Coumadin to bridge to the therapeutic INR, however, INR remains subtherapeutic. Thermocouple Tester switched the patient to Eliquis 10 mg twice a day for seven days and then changed to 5 mg p.o. b.i.d. The patient will need to repeat in three months venous duplex. Blood sugar was managed with sliding scale of insulin. Blood pressure was managed with hydralazine and beta-myrtle and was stable. Gastrointestinal prophylaxis provided. Hemodialysis provided as per litigation specialist. Renal parameters and electrolytes were closely monitored. Nephrotoxics were avoided. Hemoglobin and hematocrit were closely monitored. Hemoglobin and hematocrit remain on the baseline. Anemia workup revealed stable iron. Wound care nurse seen the patient and recommended wound care due to the multiple deep tissue injury present on admission. The patient was stable for discharge. The patient also exhibited one episode of nonsustained ventricular tachycardia . Cardiology was aware. Continue current management. DISCHARGE DIAGNOSES: Includes, 1. Chest pain, possibly related to acute deep venous thrombosis. 2. Acute coronary syndrome was ruled out. 3. Acute deep venous thrombosis, right lower extremity. 4. End-stage renal disease, on hemodialysis. 5. Diabetes mellitus. 6. Hypertension. 7. Right above-knee amputation. 8. Peripheral vascular disease. 9. Episodes of nonsustained ventricular tachycardia. 10. Anemia of chronic renal disease. 11. Acute encephalopathy and chronic Alzheimer dementia, resolved, likely secondary to missed dialysis. 12. Mild pulmonary hypertension. 13. Multiple deep tissue injury present on admission. DISCHARGE MEDICATIONS: See medication reconciliation list. DISCHARGE INSTRUCTIONS: The patient to follow up with medical doctor at the facility. Lit Cerna M.D. I have been assigned to dictate discharge summary on this account and I was not involved in the patient's management. Kaia moramrailyn NAlejandroPAlejandro DR: ROSS JOB#: [id number] CC:
--- NOTE | 2017-03-08 23:24 | Diagnostic Imaging Report ---
APPROVED REPORT CPT Code: 12822 Present Symptoms Lower Extremity Pain: Bilateral Comments: History of peripheral vascular disease. Pt has had right leg amputated at the knee. Risk Factors Cardiac Disease Technically difficult study due to patient contracture. Right leg amputated at the knee. RIGHT LEG: Venous imaging reveals acute thrombus in segments of the common femoral, proximal superficial femoral, and distal superficial femoral vein. The greater saphenous vein is within normal limits. LEFT LEG: Venous imaging reveals patency of the common femoral vein. Venous imaging reveals acute, occlusive thrombus in the distal superficial femoral and popliteal vein segments. The anterior tibial vein is also occluded. The posterior tibial and peroneal veins were not visualized due to patient contracture. The greater saphenous vein is within normal limits. Dr. Diamond was informed of abnormal results at 19:00 hrs.
== END 2017-03-06 15:56 | DRG 299 ==
LOC: EDBD 15:32 → EDBEDREQ 15:39 → EMR 15:58 → 2E 16:07 → EDBEDREQ 16:17 → 4W 03-03 18:30
PROC: 5A1D60Z (ICD-10-PCS; principal; 2017-03-02)
DX: I82.411 Acute embolism and thrombosis of right femoral vein (principal); N18.6 End stage renal disease; I47.2 Ventricular tachycardia; G93.40 Encephalopathy, unspecified; I12.0 Hypertensive chronic kidney disease with stage 5 chronic kidney disease or end stage renal disease; I27.2 Other secondary pulmonary hypertension; G30.9 Alzheimer's disease, unspecified; E11.9 Type 2 diabetes mellitus without complications; D63.1 Anemia in chronic kidney disease; F02.80 Dementia in other diseases classified elsewhere, unspecified severity, without behavioral disturbance, psychotic disturbance, mood disturbance, and anxiety; Z89.611 Acquired absence of right leg above knee; Z99.2 Dependence on renal dialysis; I73.9 Peripheral vascular disease, unspecified; Z79.4 Long term (current) use of insulin; R07.9 Chest pain, unspecified
CPT/HCPCS: 36415; 71010; 80048; 80053; 80061; 82550; 82553; 82607; 82728; 82746; 82962; 82977; 83036; 83540; 83550; 83735; 83880; 84100; 84443; 84484; 84550; 85025; 85610; 85730; 86140; 87081; 93005; 93306; 93970; 94664; J1815

== ENCOUNTER 2017-05-11 13:45 | Inpatient (IN) | payer MEDICARE, MEDICAID ==
[~2017-05-11] VITALS: Ht 165.1 cm; Wt 59.0 kg
[~2017-05-11 13:45] MED LIST changes: +ACETAMINOPHEN120 MG RECTAL; +ACETAMINOPHEN325 M1 ORAL; +ASPIRIN81 MG ORAL; +ATIVAN1 MG ORAL; +ATORVASTATIN CA20 MG ORAL; +ELIQUIS2.5 MG PO; +FERROUS SULFAT325 MG ORAL; +IBUPROFEN400 MG ORAL; +IBUPROFEN600 MG ORAL; +LORAZEPAM2 MG ORAL; +METOPROLOL TART50 M1 ORAL; +MORPHINE 22 MG/1 ML IVP; +NEPHRO AID PO; +NITROGLYCERIN0.4 MG SL; +NOVOLOG MI100 UNIT/3 SQ; +PROTONIX40 MG ORAL; +QUETIAPINE FUMA25 MG ORAL; +SANTYL30 GM TP; +TEMAZEPAM15 MG ORAL; +TYLENOL650 MG/20. ORAL; +ZOFRAN 4 MG4 MG/2 ML IVP
[2017-05-11] MEDS ORDERED: Pantoprazole Inj IV ONE (14:15)
--- NOTE | 2017-05-11 14:29 | Emergency Room Report ---
History of Present Illness General Chief Complaint: Abnormal Labs Source: Patient, Medical Record, EMS Present Illness HPI Patient sent in for a low hemoglobin. Was measured at 5.6. His history of renal failure. She states she last moved her bowels yesterday and it appeared normal to her. Denies any pain, fever, chest pain, shortness of breath, nausea , vomiting, diarrhea, dysuria. She claims she's never had transfusions before. Denies any headache or dizziness. Poor historian, denies all (including dark stools). ESRD - MWF dialysis Dementia Diabetes Allergies: Coded Allergies: No Known Allergies (Unverified , 09/15/16) Patient History Past Medical History: see triage record Past Surgical History: other - dialysis fistula Social History Narrative [place], Born in [place] Reviewed Nursing Documentation: PMH: Agreed, PSxH: Agreed Nursing Documentation-PMH Past Medical History: No History, Except For Hx Hypertension: Yes Hx Diabetes: Yes Hx Cancer: No Hx Gastrointestinal Problems: No Hx Dialysis: Yes - MWF ESRD Hx Neurological Problems: Yes Hx Dementia: Yes Hx Alzheimer's Disease: Yes Hx Dysphasia: Yes Hx Weakness: Yes Review of Systems All Other Systems: negative except mentioned in HPI - question answers Physical Exam Vital Signs Date Time Temp Pulse Resp B/P Pulse Ox O2 Delivery O2 Flow Rate FiO2 05/11/17 13:48 98.6 90 18 103/65 98 Room Air Sp02 EP Interpretation: reviewed, normal General Appearance: no apparent distress, GCS 15, Chronically Ill Head: normocephalic Eyes: bilateral eye conjunctivae pale ENT: moist mucus membranes Neck: supple Respiratory: lungs clear, normal breath sounds Cardiovascular #1: regular rate, rhythm Cardiovascular #2: 2+ radial (L) - shunt L upper arm Gastrointestinal: normal inspection, normal bowel sounds, non tender, no mass, non-distended Rectal: heme positive stool - dark brown Musculoskeletal: back normal, normal range of motion, other - AKA R Neurologic: alert, oriented - X1 Psychiatric: mood/affect normal, other - poor recent memory Skin: warm/dry, pallor, other - stage 2 sacral decub Medical Decision Making Diagnostic Impression: Primary Impression: GI bleed Qualified Codes: K92.2 - Gastrointestinal hemorrhage, unspecified Additional Impressions: ESRD (end stage renal disease) on dialysis Diabetes mellitus Qualified Codes: E13.8 - Other specified diabetes mellitus with unspecified complications; 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 Differential includes anemia of chronic disease, blood loss, GI bleed. Stool is positive for occult blood. It' s dark but not melanotic. It's possible that this could be upper because of the darkness. She's end-stage renal disease in his significant comorbidities. Evaluation will be undertaken with EKG, chest x-ray, abdominal films and laboratory including a type and Rh. Vitals are stable at this time and blood is ordered for her. Profound anemia. Blood ordered. Will give slowly a s ESRD. Patient tolerating blood without difficulty. Admit tele Dr. Cerna. Laboratory Tests Test 05/11/17 14:11 05/11/17 15:30 05/11/17 16:30 White Blood Count 7.0 K/UL (4.8-10.8) Red Blood Count 2.23 M/UL (4.20-5.40) L Hemoglobin 6.9 G/DL (12.0-16.0) *L Hematocrit 21.9 % (37.0-47.0) L Mean Corpuscular Volume 98 FL (80-99) Mean Corpuscular Hemoglobin 31.1 PG (27.0-31.0) H Mean Corpuscular Hemoglobin Concent 31.7 G/DL (32.0-36.0) L Red Cell Distribution Width 16.1 % (11.6-14.8) H Platelet Count 558 K/UL (150-450) H Mean Platelet Volume 8.9 FL (6.5-10.1) Neutrophils (%) (Auto) % (45.0-75.0) Lymphocytes (%) (Auto) % (20.0-45.0) Monocytes (%) (Auto) % (1.0-10.0) Eosinophils (%) (Auto) % (0.0-3.0) Basophils (%) (Auto) % (0.0-2.0) Differential Total Cells Counted 100 Neutrophils % (Manual) 67 % (45-75) Lymphocytes % (Manual) 20 % (20-45) Monocytes % (Manual) 7 % (1-10) Eosinophils % (Manual) 5 % (0-3) H Basophils % (Manual) 1 % (0-2) Band Neutrophils 0 % (0-8) Platelet Estimate Increased H Platelet Morphology Normal Polychromasia 1+ Hypochromasia 3+ Poikilocytosis 2+ Prothrombin Time 10.4 SEC (9.30-11.50) Prothrombin Time INR 1.0 (0.9-1.1) PTT 28 SEC (23-33) Sodium Level 137 mEQ/L (135-145) Potassium Level 3.6 mEQ/L (3.4-4.9) Chloride Level 91 mEQ/L (98-107) L Carbon Dioxide Level 29 mEQ/L (20-30) Anion Gap 17 (5-15) H Blood Urea Nitrogen 41 mg/dL (7-23) H Creatinine 4.6 mg/dL (0.5-0.9) H Estimate Glomerular Filtration Rate 11.6 mL/min (>60) Glucose Level 234 mg/dL (74-106) H Calcium Level 9.4 mg/dL (8.6-10.2) Total Bilirubin < 0.2 mg/dL (0.0-1.2) Aspartate Amino Transferase (AST) 14 U/L (5-40) Alanine Aminotransferase (ALT) 9 U/L (3-33) Alkaline Phosphatase 133 U/L (35-104) H Troponin I < 0.30 ng/mL (<=0.30) Total Protein 6.9 g/dL (6.6-8.7) Albumin 3.9 g/dL (3.5-5.2) Globulin 3.0 g/dL Albumin/Globulin Ratio 1.3 (1.0-2.7) Lipase 33 U/L (< 60) Erythrocyte Sedimentation Rate 42 MM/HR (0-30) H Reticulocyte Count 4.4 % (0.0-2.0) H Iron Level Pending Unsaturated Iron Binding Pending Lactate Dehydrogenase Pending Carcinoembryonic Antigen Pending Vitamin B12 Level Pending EKG Diagnostic Results Rate: normal Rhythm: NSR ST Segments: no acute changes Rhythm Strip Diag. Results EP Interpretation: yes Rhythm: NSR, no PVC's, no ectopy Chest X-Ray Diagnostic Results Chest X-Ray Ordered: Yes # of Views/Limited/Complete: 1 View EP Interpretation: Yes Interpretation: no consolidation, no effusion, no pneumothorax, other - inc cor Indication: Other Impression: Other Interpreting ER Provider: Mindy Other X-Ray Diagnostic Results X-Ray ordered: abd # of Views/Limited Vs Complete: 1 View EP Interpretation: Yes Interpretation: other - inc stool, no SBO, no masses Indication: Other Impression: No acute disease Last Vital Signs Date Time Temp Pulse Resp B/P Pulse Ox O2 Delivery O2 Flow Rate FiO2 05/11/17 13:48 98.6 90 18 103/65 98 Room Air Status: improved Referrals: IHSAN CERNA (PCP) Alxeey Guillen M.D. May 11, 2017 14:29
[2017-05-11 15:04] LABS: MEAN CORPUSCULAR HEMOGLOBIN 31.1 PG (27.0-31.0); MEAN CORPUSCULAR HGB CONC 31.7 G/DL (32.0-36.0); MEAN CORPUSCULAR VOLUME 98 FL (80-99); MEAN PLATELET VOLUME 8.9 FL (6.5-10.1); PLATELET COUNT 558 K/UL (150-450); RED BLOOD COUNT 2.23 M/UL (4.20-5.40); RED CELL DISTRIBUTION WIDTH 16.1 % (11.6-14.8)
[2017-05-11 15:13] LABS: PROTHROMBIN TIME 10.4 SEC (9.30-11.50)
[2017-05-11 15:14] LABS: ALANINE AMINOTRANSFERASE 9 U/L (3-33); ALBUMIN/GLOBULIN RATIO 1.3 (1.0-2.7); ANION GAP 17 (5-15); ASPARTATE AMINO TRANSFERASE 14 U/L (5-40); CALCIUM 9.4 mg/dL (8.6-10.2); CARBON DIOXIDE 29 mEQ/L (20-30); CHLORIDE 91 mEQ/L (98-107); CREATININE 4.6 mg/dL (0.5-0.9); GLOMERULAR FILTRATION RATE 11.6 mL/min (>60); HEMOLYSIS 9; LIPASE 33 U/L (< 60); POTASSIUM 3.6 mEQ/L (3.4-4.9); SODIUM 137 mEQ/L (135-145); TOTAL PROTEIN 6.9 g/dL (6.6-8.7); TROPONIN I < 0.30 ng/mL (<=0.30)
[2017-05-11 15:20] VITALS: BP 107/61
[2017-05-11 15:34] LABS: BAND NEUTROPHILS % (MANUAL) 0 % (0-8); BASOPHILS % (MANUAL) 1 % (0-2); EOSINOPHILS % (MANUAL) 5 % (0-3); LYMPHOCYTES % (MANUAL) 20 % (20-45); NEUTROPHILS % (MANUAL) 67 % (45-75); PLATELET ESTIMATE INCREASED; TOTAL CELLS COUNTED 100
[2017-05-11 15:35] LABS: HYPOCHROMASIA 3+; PLATELET MORPHOLOGY NORMAL; POIKILOCYTOSIS 2+; POLYCHROMASIA 1+
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
[2017-05-11 18:50] VITALS: BP 105/64
[2017-05-11 19:05] VITALS: BP 105/63
[2017-05-11] MEDS ORDERED: Morphine Sulfate 2mg/ml Inj IVP PRN (19:15)
[2017-05-11] MEDS ORDERED: Mylanta II UD 30ml ORAL PRN (19:15)
[2017-05-11] MEDS ORDERED: LORazepam Inj 2mg/ml 1ml IV PRN (19:15)
[2017-05-11] MEDS ORDERED: Miralax 17gm pkt ORAL PRN (19:15)
[2017-05-11 19:19] VITALS: BP 110/59
[2017-05-11 20:00] VITALS: BP 117/65
[2017-05-11 20:21] LABS: RETICULOCYTE COUNT 4.4 % (0.0-2.0)
[2017-05-11] MEDS ORDERED: Zolpidem 5mg tab ORAL PRN (21:00)
[2017-05-11] MEDS: HydrALAZINE 25mg tab ORAL SCH (22:00)
--- NOTE | 2017-05-11 22:56 | History and Physical ---
History of Present Illness General Date patient seen: May 11, 2017 Reason for Hospitalization: Abnormal Labs Present Illness HPI 67 year old female with hx of ESRD - MWF dialysis, Dementia, Diabetes sent in for a low hemoglobin. Was measured at 5.6. She states she last moved her bowels yesterday and it appeared normal to her. Denies any pain, fever, chest pain, shortness of breath, nausea, vomiting, diarrhea, dysuria. She claims she' s never had transfusions before. Denies any headache or dizziness. Allergies: Coded Allergies: No Known Allergies (Unverified , 09/15/16) Medication History Scheduled Acetaminophen* (Acetaminophen 325MG Tablet*), 650 MG ORAL DAILY, (Reported) Amino Acids/Protein Hydrolys (Pro-Stat Liquid), 45 ML ORAL TWICE A DAY, ( Reported) Apixaban (Eliquis), 10 MG PO BID Aspirin* (Aspirin*), 81 MG ORAL DAILY, (Reported) Atorvastatin Calcium* (Atorvastatin Calcium*), 10 MG ORAL BEDTIME, (Reported) Collagenase Clostridium Hist. (Santyl), 1 APPLIC TP DAILY, (Reported) Ferrous Sulfate* (Ferrous Sulfate*), 325 MG ORAL DAILY, (Reported) Hydralazine Hcl* (Hydralazine Hcl*), 25 MG ORAL EVERY 8 HOURS, (Reported) Ibuprofen* (Motrin*), 400 MG ORAL Q6H, (Reported) Lorazepam* (Lorazepam*), 2 MG ORAL DAILY, (Reported) Metoprolol Tartrate* (Metoprolol Tartrate*), 50 MG ORAL DAILY, (Reported) Pantoprazole* (Protonix*), 40 MG ORAL DAILY, (Reported) Quetiapine Fumarate* (Seroquel*), 12.5 MG ORAL BID, (Reported) [Nephro Aid], 1 TAB PO DAILY, (Reported) Scheduled PRN Morphine Sulfate* (Morphine Sulfate*), 2 MG IVP Q4HR PRN for For Pain, (Reported ) Nitroglycerin (Nitroglycerin), 0.4 MG SL for Prn Chest Pain, (Reported) Ondansetron* (Zofran*), 4 MG IVP Q6H PRN for Nausea & Vomiting, (Reported) Temazepam (Temazepam*), 15 MG ORAL HS PRN for Insomnia, (Reported) Miscellaneous Medications Insuln Asp Prt/Insulin Aspart (Novolog Mix 70-30 Flexpen Syrn), 100 UNIT SQ, ( Reported) Patient History Healthcare decision maker Resuscitation status Advanced Directive on File Past Medical/Surgical History Past Medical/Surgical History: (1) S/P AKA (above knee amputation) unilateral (2) ESRD (end stage renal disease) on dialysis (3) Diabetes mellitus (4) DVT (deep venous thrombosis) (5) ESRF (end stage renal failure) Review of Systems All Other Systems: negative except mentioned in HPI Physical Exam General Appearance: cachetic Lines, tubes and drains: peripheral, dialysis access HEENT: normocephalic Neck: non-tender, normal alignment Respiratory/Chest: chest wall non-tender, lungs clear Cardiovascular/Chest: normal peripheral pulses, normal rate Abdomen: normal bowel sounds, non tender Genitourinary/Rectal: normal genital exam, normal rectal exam Extremities: normal range of motion, non-tender Skin Exam: normal pigmentation 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 Last 24 Hour Vital Signs Date Time Temp Pulse Resp B/P Pulse Ox O2 Delivery O2 Flow Rate FiO2 05/11/17 21:03 78 15 110/59 99 Room Air 05/11/17 20:00 98.2 81 20 117/65 100 Room Air 05/11/17 19:19 98.6 78 15 110/59 99 Room Air 05/11/17 19:05 98.2 82 18 05/11/17 19:05 98.6 82 18 105/63 100 Room Air 05/11/17 18:50 98.2 83 16 05/11/17 18:50 98.2 83 16 105/64 100 Room Air 05/11/17 15:20 98.5 87 17 107/61 99 Room Air 05/11/17 13:48 98.6 90 18 103/65 98 Room Air Laboratory Tests Test 05/11/17 14:11 05/11/17 15:30 05/11/17 16:30 White Blood Count 7.0 K/UL (4.8-10.8) Red Blood Count 2.23 M/UL (4.20-5.40) L Hemoglobin 6.9 G/DL (12.0-16.0) *L Hematocrit 21.9 % (37.0-47.0) L Mean Corpuscular Volume 98 FL (80-99) Mean Corpuscular Hemoglobin 31.1 PG (27.0-31.0) H Mean Corpuscular Hemoglobin Concent 31.7 G/DL (32.0-36.0) L Red Cell Distribution Width 16.1 % (11.6-14.8) H Platelet Count 558 K/UL (150-450) H Mean Platelet Volume 8.9 FL (6.5-10.1) Neutrophils (%) (Auto) % (45.0-75.0) Lymphocytes (%) (Auto) % (20.0-45.0) Monocytes (%) (Auto) % (1.0-10.0) Eosinophils (%) (Auto) % (0.0-3.0) Basophils (%) (Auto) % (0.0-2.0) Differential Total Cells Counted 100 Neutrophils % (Manual) 67 % (45-75) Lymphocytes % (Manual) 20 % (20-45) Monocytes % (Manual) 7 % (1-10) Eosinophils % (Manual) 5 % (0-3) H Basophils % (Manual) 1 % (0-2) Band Neutrophils 0 % (0-8) Platelet Estimate Increased H Platelet Morphology Normal Polychromasia 1+ Hypochromasia 3+ Poikilocytosis 2+ Prothrombin Time 10.4 SEC (9.30-11.50) Prothromb Time International Ratio 1.0 (0.9-1.1) Activated Partial Thromboplast Time 28 SEC (23-33) Sodium Level 137 mEQ/L (135-145) Potassium Level 3.6 mEQ/L (3.4-4.9) Chloride Level 91 mEQ/L (98-107) L Carbon Dioxide Level 29 mEQ/L (20-30) Anion Gap 17 (5-15) H Blood Urea Nitrogen 41 mg/dL (7-23) H Creatinine 4.6 mg/dL (0.5-0.9) H Estimat Glomerular Filtration Rate 11.6 mL/min (>60) Glucose Level 234 mg/dL (74-106) H Calcium Level 9.4 mg/dL (8.6-10.2) Total Bilirubin < 0.2 mg/dL (0.0-1.2) Aspartate Amino Transf (AST/SGOT) 14 U/L (5-40) Alanine Aminotransferase (ALT/SGPT) 9 U/L (3-33) Alkaline Phosphatase 133 U/L (35-104) H Troponin I < 0.30 ng/mL (<=0.30) Total Protein 6.9 g/dL (6.6-8.7) Albumin 3.9 g/dL (3.5-5.2) Globulin 3.0 g/dL Albumin/Globulin Ratio 1.3 (1.0-2.7) Lipase 33 U/L (< 60) Erythrocyte Sedimentation Rate 42 MM/HR (0-30) H Reticulocyte Count 4.4 % (0.0-2.0) H Iron Level Pending Unsaturated Iron Binding Pending Lactate Dehydrogenase Pending Carcinoembryonic Antigen Pending Vitamin B12 Level Pending Height (Feet): 5 Height (Inches): 2.00 Weight (Pounds): 130 Medications Current Medications Medications (Trade) Dose Ordered Sig/Althea Route PRN Reason Start Time Stop Time Status Last Admin Dose Admin Acetaminophen (Tylenol) 650 mg Q4H PRN ORAL fever 05/11/17 19:15 06/10/17 19:14 Al Hydroxide/Mg Hydroxide (Mylanta II) 30 ml Q6H PRN ORAL dyspepsia 05/11/17 19:15 06/10/17 19:14 Dextrose (Dextrose 50%) STAT PRN IV Hypoglycemia 05/11/17 19:15 06/10/17 19:14 Hydralazine HCl (Apresoline) 25 mg EVERY 8 HOURS ORAL 05/11/17 22:00 06/10/17 21:59 Lorazepam (Ativan 2mg/ml 1ml) 0.5 mg Q4H PRN IV For Anxiety 05/11/17 19:15 05/18/17 19:14 Metoprolol Tartrate (Lopressor) 50 mg DAILY ORAL 05/12/17 09:00 06/11/17 08:59 Morphine Sulfate (Morphine Sulfate) 1 mg Q4H PRN IVP For Pain 4-10 05/11/17 19:15 05/18/17 19:14 Ondansetron HCl (Zofran) 4 mg Q6H PRN IVP Nausea & Vomiting 05/11/17 19:15 06/10/17 19:14 Polyethylene Glycol (Miralax) 17 gm HSPRN PRN ORAL Constipation 05/11/17 19:15 06/10/17 19:14 Quetiapine Fumarate (SEROquel) 12.5 mg BID ORAL 05/11/17 21:00 06/10/17 20:59 Temazepam (Restoril) 15 mg BEDTIME PRN ORAL Insomnia 05/11/17 19:15 05/18/17 19:14 Zolpidem Tartrate (Ambien) 5 mg HSPRN PRN ORAL Insomnia 05/11/17 19:15 06/10/17 19:14 UNV Assessment/Plan Problem List: (1) Acute encephalopathy ICD Codes: G93.40 - Encephalopathy, unspecified SNOMED: 2842820 (2) Anemia ICD Codes: D64.9 - Anemia, unspecified SNOMED: 007788270 (3) ESRD (end stage renal disease) on dialysis ICD Codes: N18.6 - End stage renal disease; Z99.2 - Dependence on renal dialysis SNOMED: 580998047 (4) S/P AKA (above knee amputation) unilateral ICD Codes: Z89.619 - Acquired absence of unspecified leg above knee SNOMED: 93607461, 60502432, 382475141 (5) Diabetes mellitus ICD Codes: E11.9 - Type 2 diabetes mellitus without complications SNOMED: 89964572 Qualifiers: Qualified Codes: E13.8 - Other specified diabetes mellitus with unspecified complications; 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
[2017-05-12] VITALS: BP 124/67
[2017-05-12] MEDS: HydrALAZINE 25mg tab ORAL SCH ×3 (06:09→21:08)
[2017-05-12 08:28] LABS: BASOPHILS % (AUTO) 0.9 % (0.0-2.0); LYMPHOCYTES % (AUTO) 26.4 % (20.0-45.0); MEAN CORPUSCULAR HEMOGLOBIN 29.4 PG (27.0-31.0); MEAN CORPUSCULAR HGB CONC 31.5 G/DL (32.0-36.0); MEAN CORPUSCULAR VOLUME 93 FL (80-99); MEAN PLATELET VOLUME 7.8 FL (6.5-10.1); MONOCYTES % (AUTO) 6.9 % (1.0-10.0); NEUTROPHILS % (AUTO) 60.8 % (45.0-75.0); PLATELET COUNT 518 K/UL (150-450); RED BLOOD COUNT 2.74 M/UL (4.20-5.40); RED CELL DISTRIBUTION WIDTH 17.7 % (11.6-14.8)
[2017-05-12 08:30] VITALS: BP 107/63
[2017-05-12 08:43] LABS: ALBUMIN/GLOBULIN RATIO 1.3 (1.0-2.7); CALCIUM 9.2 mg/dL (8.6-10.2); CREATININE 4.8 mg/dL (0.5-0.9); POTASSIUM 3.5 mEQ/L (3.4-4.9); TOTAL PROTEIN 6.3 g/dL (6.6-8.7)
[2017-05-12 08:49] LABS: THYROID STIMULATING HORMONE 0.576 uIU/mL (0.300-4.500)
[2017-05-12] MEDS ORDERED: Metoprolol 50mg tab ORAL SCH (09:00)
--- NOTE | 2017-05-12 09:55 | Consultation ---
Consult Note Consult Note Asked to eval for dialysis management Patient admitted for sever and symptomatic Anemia due to GI / Vag bleed Patient examined- data reviewed. Patient History Past Medical History: DM, HTN, dementia, renal disease, dialysis Past Medical History: No History, Except For Hx Hypertension: Yes Hx Diabetes: Yes Hx Dialysis: Yes - MWF ESRD Hx Neurological Problems: Yes - alzheimers Hx Dementia: Yes Assessment/Plan Assessment/Plan End-stage renal disease, on hemodialysis every Sunday, Sunday, and Sunday. Last dialysis was on Friday 05/11 1. Type 2 diabetes. 2. Hypertension. 3. Anemia of chronic renal disease. & Vaginal bleed 4. Hypercholesterolemia. 5. Peripheral vascular disease. 6. Alzheimer's dementia. 7. ?? LUNG MASS PAST SURGICAL HISTORY: Significant for: 1. Right [id number]-imbi amputation. 2. Open reduction internal fixation of the left femoral neck on 07/20/2016. Plan; HD 05/14 Monitor H&H - EPO Per consultants Antibiotics- Adjust BP TAQUERIA Sanchez May 12, 2017 09:55
[2017-05-12 11:31] LABS: PROTHROMBIN TIME 10.5 SEC (9.30-11.50)
[2017-05-12 13:14] VITALS: BP 98/65
--- NOTE | 2017-05-12 13:36 | Pulmonology Progress Note ---
Assessment/Plan Problems: (1) Acute encephalopathy (2) Anemia (3) ESRD (end stage renal disease) on dialysis (4) S/P AKA (above knee amputation) unilateral (5) Diabetes mellitus Assessment/Plan transfuse again rule out GI bleeding HD by nephrology sliding scale Subjective ROS Limited/Unobtainable: No Allergies: Coded Allergies: No Known Allergies (Unverified , 09/15/16) Objective Last 24 Hour Vital Signs Date Time Temp Pulse Resp B/P Pulse Ox O2 Delivery O2 Flow Rate FiO2 05/12/17 13:14 98.2 67 17 98/65 95 Room Air 05/12/17 08:30 107/63 05/12/17 08:30 84 124/67 05/12/17 08:00 76 05/12/17 06:09 124/67 05/12/17 04:00 84 05/12/17 00:00 97.9 78 20 124/67 97 Room Air 05/12/17 00:00 80 05/11/17 22:00 124/67 05/11/17 21:03 78 15 110/59 99 Room Air 05/11/17 20:00 98.2 81 20 117/65 100 Room Air 05/11/17 19:19 98.6 78 15 110/59 99 Room Air 05/11/17 19:05 98.2 82 18 05/11/17 19:05 98.6 82 18 105/63 100 Room Air 05/11/17 18:50 98.2 83 16 05/11/17 18:50 98.2 83 16 105/64 100 Room Air 05/11/17 15:20 98.5 87 17 107/61 99 Room Air 05/11/17 13:48 98.6 90 18 103/65 98 Room Air Intake and Output 05/11/17 05/12/17 19:00 07:00 Intake Total 250 ml Output Total 0 ml Balance 250 ml Intake Blood Product 250 ml Output Urine Total 0 ml # Voids 1 # Bowel Movements 2 General Appearance: cachetic HEENT: normocephalic, atraumatic Respiratory/Chest: chest wall non-tender, lungs clear Breasts: no masses Cardiovascular: normal peripheral pulses Abdomen: normal bowel sounds, soft, non tender Genitourinary: normal external genitalia Extremities: no cyanosis, other - right above knee amputation Laboratory Tests 05/11/17 14:11: White Blood Count 7.0, Red Blood Count 2.23L, Hemoglobin 6.9*L, Hematocrit 21.9L , Mean Corpuscular Volume 98, Mean Corpuscular Hemoglobin 31.1H, Mean Corpuscular Hemoglobin Concent 31.7L, Red Cell Distribution Width 16.1H, Platelet Count 558H, Mean Platelet Volume 8.9, Neutrophils (%) (Auto) , Lymphocytes (%) (Auto) , Monocytes (%) (Auto) , Eosinophils (%) (Auto) , Basophils (%) (Auto) , Differential Total Cells Counted 100, Neutrophils % ( Manual) 67, Lymphocytes % (Manual) 20, Monocytes % (Manual) 7, Eosinophils % ( Manual) 5H, Basophils % (Manual) 1, Band Neutrophils 0, Platelet Estimate IncreasedH, Platelet Morphology Normal, Polychromasia 1+, Hypochromasia 3+, Poikilocytosis 2+, Prothrombin Time 10.4, Prothromb Time International Ratio 1.0 , Activated Partial Thromboplast Time 28, Sodium Level 137, Potassium Level 3.6 , Chloride Level 91L, Carbon Dioxide Level 29, Anion Gap 17H, Blood Urea Nitrogen 41H, Creatinine 4.6H, Estimat Glomerular Filtration Rate 11.6, Glucose Level 234H, Calcium Level 9.4, Total Bilirubin < 0.2, Aspartate Amino Transf ( AST/SGOT) 14, Alanine Aminotransferase (ALT/SGPT) 9, Alkaline Phosphatase 133H, Troponin I < 0.30, Total Protein 6.9, Albumin 3.9, Globulin 3.0, Albumin/ Globulin Ratio 1.3, Lipase 33 05/11/17 15:30: Erythrocyte Sedimentation Rate 42H, Reticulocyte Count 4.4H 05/11/17 16:30: Iron Level [Pending], Unsaturated Iron Binding [Pending], Lactate Dehydrogenase [Pending], Carcinoembryonic Antigen [Pending], Vitamin B12 Level [Pending] 05/12/17 06:55: White Blood Count 7.0, Red Blood Count 2.74L, Hemoglobin 8.1L, Hematocrit 25.6L , Mean Corpuscular Volume 93, Mean Corpuscular Hemoglobin 29.4, Mean Corpuscular Hemoglobin Concent 31.5L, Red Cell Distribution Width 17.7H, Platelet Count 518H, Mean Platelet Volume 7.8, Neutrophils (%) (Auto) 60.8, Lymphocytes (%) (Auto) 26.4, Monocytes (%) (Auto) 6.9, Eosinophils (%) (Auto) 5.0H, Basophils (%) (Auto) 0.9, Sodium Level 139, Potassium Level 3.5, Chloride Level 93L, Carbon Dioxide Level 29, Anion Gap 17H, Blood Urea Nitrogen 47H, Creatinine 4.8H, Estimat Glomerular Filtration Rate 11.0, Glucose Level 146H, Calcium Level 9.2, Total Bilirubin 0.5, Aspartate Amino Transf (AST/SGOT) 10, Alanine Aminotransferase (ALT/SGPT) 7, Alkaline Phosphatase 125H, Total Protein 6.3L, Albumin 3.6, Globulin 2.7, Albumin/Globulin Ratio 1.3, Uric Acid 6.4, Thyroid Stimulating Hormone (TSH) 0.576 05/12/17 10:48: Prothrombin Time 10.5, Prothromb Time International Ratio 1.0, Activated Partial Thromboplast Time 28, Iron Level 39, Total Iron Binding Capacity 232L, Percent Iron Saturation 17, Unsaturated Iron Binding 193, Lactate Dehydrogenase 118L, Carcinoembryonic Antigen 3.4H, Vitamin B12 Level 700, Folate [Pending] 05/12/17 11:13: Stool Occult Blood [Pending] Current Medications Medications (Trade) Dose Ordered Sig/Althea Route PRN Reason Start Time Stop Time Status Last Admin Dose Admin Acetaminophen (Tylenol) 650 mg Q4H PRN ORAL fever 05/11/17 19:15 06/10/17 19:14 Bisacodyl (Dulcolax) 20 mg ONCE ONCE ORAL 05/13/17 12:00 05/13/17 12:01 Dextrose (Dextrose 50%) STAT PRN IV Hypoglycemia 05/11/17 19:15 06/10/17 19:14 Hydralazine HCl (Apresoline) 25 mg EVERY 8 HOURS ORAL 05/11/17 22:00 06/10/17 21:59 05/12/17 06:09 Lorazepam (Ativan 2mg/ml 1ml) 0.5 mg Q4H PRN IV For Anxiety 05/11/17 19:15 05/18/17 19:14 Magnesium Citrate (Citrate Of Magnesia) 300 ml ONCE ONCE ORAL 05/12/17 18:00 05/12/17 18:01 Metoprolol Tartrate (Lopressor) 50 mg DAILY ORAL 05/12/17 09:00 06/11/17 08:59 05/12/17 08:30 Morphine Sulfate (Morphine Sulfate) 1 mg Q4H PRN IVP For Pain 4-10 05/11/17 19:15 05/18/17 19:14 Ondansetron HCl (Zofran) 4 mg Q6H PRN IVP Nausea & Vomiting 05/11/17 19:15 06/10/17 19:14 Pantoprazole (Protonix) 40 mg DAILY ORAL 05/12/17 11:00 06/11/17 10:59 05/12/17 11:09 Polyethylene Glycol (Miralax) 17 gm HSPRN PRN ORAL Constipation 05/11/17 19:15 06/10/17 19:14 Polyethylene Glycol (Miralax) 238 gm ONCE ONCE ORAL 05/13/17 12:00 05/13/17 12:01 Quetiapine Fumarate (SEROquel) 12.5 mg BID ORAL 05/11/17 21:00 06/10/17 20:59 05/12/17 08:32 Temazepam (Restoril) 15 mg BEDTIME PRN ORAL Insomnia 05/11/17 19:15 05/18/17 19:14 Zolpidem Tartrate (Ambien) 5 mg HSPRN PRN ORAL Insomnia 05/11/17 19:15 06/10/17 19:14 IHSAN LEDESMA May 12, 2017 13:36
--- NOTE | 2017-05-12 13:45 | Consultation ---
DATE OF CONSULTATION: 05/12/2017 CHIEF COMPLAINT: Anemia. HISTORY OF PRESENT ILLNESS: Most of the history is per chart. The patient is a very poor historian, unable to give any history. PAST MEDICAL HISTORY: 1. Dementia. 2. Congestive heart failure. 3. Hypercholesterolemia. 4. Hypertension. 5. End-stage renal disease on hemodialysis. 6. Diabetes. 7. Anxiety. 8. Anemia. ALLERGIES: No known drug allergies. MEDICATIONS: Please see medication reconciliation list. SOCIAL HISTORY: Currently lives in detention. No history of tobacco, alcohol, or drug abuse. FAMILY HISTORY: Noncontributory. REVIEW OF SYSTEMS: Unable to obtain. PHYSICAL EXAMINATION: VITAL SIGNS: Temperature is 97.9, pulse is 74, respirations 15, and blood pressure is 107/63. HEENT: Normocephalic and atraumatic. . HEART: Regular rhythm. . LUNGS: wheezing with some rales. ABDOMEN: Soft and nontender. No rebound. No guarding. EXTREMITIES: No cyanosis. No clubbing. No edema. LABORATORY DATA: White count on admission 7.9, hemoglobin 6.9, hematocrit 21.9, and platelet count is 558,000. BUN is 47 and creatinine 4.8. ASSESSMENT AND PLAN: The patient is a 67-year-old female with end-stage renal disease, diabetes, and multiple medical problems including dementia. The patient unable to give . The patient has had gastrointestinal bleeding since admission. Hemoglobin dropped to 6.9. According to the , the patient has black tarry looking or dark looking stool. Plan to start the patient on clear liquid diet tomorrow, prep for endoscopy and colonoscopy. Start the patient on Protonix for possibility of upper gastrointestinal bleeding. Send the stool for OB. Fabrizio Herrera M.D. DR: BRENDA JOB#: [id number] CC:
[2017-05-12 14:10] VITALS: BP 108/61
[2017-05-12] MEDS ORDERED: Morphine Sulfate 2mg/ml Inj IVP PRN (16:00)
[2017-05-12] MEDS ORDERED: LORazepam Inj 2mg/ml 1ml IV PRN (16:00)
[2017-05-12 17:23] VITALS: BP 141/83
[2017-05-12] MEDS ORDERED: Magnesium Citrate Liq Btl ORAL ONE ×2 (18:00)
[2017-05-12] MEDS ORDERED: Miralax 17gm pkt ORAL PRN (19:15)
[2017-05-12 20:00] VITALS: BP 135/71
[2017-05-12] MEDS ORDERED: Zolpidem 5mg tab ORAL PRN (21:00)
--- NOTE | 2017-05-12 21:31 | Consultation ---
Consult Note Assessment/Plan [id number] ASSESSMENT: 67-year-old female with: // Hx of C.difficile // hx of UTI - UCx <10K ESBL(+) E.coli SP Rx - h/o VSE.faecalis // Lt heel decubitus not grossly infected - // Febrile // leukocytosis // GI bleed and anemia // Hx of Vaginal bleed, possible endometrial CA - bottom ironer eval pending - US: thickened endometrium and 8.5 cm complex left adnexal mass. // ESRD / HD // Advanced dementia // DM2 - HbA1c 6.7% // PVD SP right AKA // NH resident // MRSA colonized // NKDA // Full Code PLAN: - monitor pt off of Ab Rx ( 01/03 SP amikacin d# 4, zosyn d# 3 ) ( 01/02 SP IV vancomycin d# 3 ) - monitor CBC, temperatures - monitor BMP. - monitor CXR - wound care - EGD/ colonoscopy on Sunday NANCY QUICK M.D. May 12, 2017 21:31
[2017-05-12] MEDS ORDERED: HydrALAZINE 25mg tab ORAL SCH (22:00)
[2017-05-13] VITALS: BP 108/58
--- NOTE | 2017-05-13 00:15 | Consultation ---
DATE OF CONSULTATION: INFECTIOUS DISEASE CONSULTATION CONSULTING PHYSICIAN: Tank Cook M.D REFERRING PHYSICIAN: Lit Cerna M.D. REASON FOR CONSULTATION: Evaluation of the patient for possible sepsis, antibiotic management. HISTORY OF PRESENT ILLNESS: The patient is a 67-year-old female with multiple medical problems as listed below who is known to our service from prior admission. The patient was admitted to this medical center due to anemia. The patient also was found to have wound on the left heel and has history of C. difficile. Infectious Disease consultation has been requested for further evaluation of the patient and possible need for antibiotic treatment. PAST MEDICAL HISTORY: 1. History of C. difficile. 2. History of ESBL urinary tract infection in the past. 3. Stage 2 decubitus and history of left heel unstageable decubitus. 4. History of vaginal bleeding. 5. History of end-stage renal disease . 6. Diabetes. 7. Peripheral vascular disease. 8. History of right alxfv-sen-ebhi amputation. MEDICATIONS: The patient is off of antibiotics. ALLERGIES: No known drug allergies. SOCIAL HISTORY: The patient lives in [facility]. FAMILY HISTORY: Unavailable. REVIEW OF SYSTEMS: Poor historian, unable to provide detailed information; however, according to nurse the patient has lower gastrointestinal and dark stool, we will plan for EGD and colonoscopy on Sunday. PHYSICAL EXAMINATION: VITAL SIGNS: Temperature 97.8, pulse 86, respiratory rate 18, blood pressure 141/83. HEENT: Mild pale conjunctivae. No icterus. NECK: No lymphadenopathy CHEST: Clear. HEART: S1 and S2. ABDOMEN: Soft and nontender. EXTREMITIES: The patient has right above-the knee amputation. Left heel unstageable decubitus. No signs of infection. NEUROLOGIC: Awake. LABORATORY DATA: White blood cells 7, hemoglobin 8.1, platelets 518,000. BUN 47 and creatinine 4.8. ASSESSMENT: The patient is a 67-year-old female with multiple medical problems who came to this medical center with: 1. Anemia. 2. History of gastrointestinal bleed. 3. No leukocytosis, no fever. 4. Left heel wound, no signs of infection. PLAN: 1. We will monitor the patient off of antibiotics. 2. We will monitor vital signs 3. We will follow GI recommendations. Based on the patient's clinical course and laboratories, we will do further recommendations. Thank you, Dr. Cerna, for allowing me to participate in the care of this patient. I will follow the patient with you during this hospitalization. Tank Cook M.D. DR: Yarely JOB#: [id number] CC:
[2017-05-13 04:00] VITALS: BP 97/55
[2017-05-13] MEDS: HydrALAZINE 25mg tab ORAL SCH (05:14)
[2017-05-13 06:45] VITALS: BP 109/68
--- NOTE | 2017-05-13 07:35 | General Progress Note ---
Assessment/Plan Problem List: (1) Anemia ICD Codes: D64.9 - Anemia, unspecified SNOMED: 657687933 (2) ESRD (end stage renal disease) on dialysis ICD Codes: N18.6 - End stage renal disease; Z99.2 - Dependence on renal dialysis SNOMED: 899641944 (3) GI bleed ICD Codes: K92.2 - Gastrointestinal hemorrhage, unspecified SNOMED: 87796561 Qualifiers: Qualified Codes: K92.2 - Gastrointestinal hemorrhage, unspecified (4) Diabetes mellitus ICD Codes: E11.9 - Type 2 diabetes mellitus without complications SNOMED: 49094739 Qualifiers: Qualified Codes: E13.8 - Other specified diabetes mellitus with unspecified complications; Z79.4 - group home (current) use of insulin (5) S/P AKA (above knee amputation) unilateral ICD Codes: Z89.619 - Acquired absence of unspecified leg above knee SNOMED: 11066293, 72304719, 183265648 Assessment/Plan fu H&H prn blood transfusion fu stool ob plan EGD and colonoscopy tomorrow Subjective ROS Limited/Unobtainable: No Allergies: Coded Allergies: No Known Allergies (Unverified , 09/15/16) Objective Last 24 Hour Vital Signs Date Time Temp Pulse Resp B/P Pulse Ox O2 Delivery O2 Flow Rate FiO2 05/13/17 06:45 109/68 05/13/17 05:14 97/55 05/13/17 04:00 97.2 79 20 97/55 97 Room Air 05/13/17 00:00 97.7 78 20 108/58 99 Room Air 05/12/17 21:08 135/71 05/12/17 20:00 97.5 84 18 135/71 96 Room Air 05/12/17 17:23 97.8 76 18 141/83 95 Room Air 05/12/17 14:10 108/61 05/12/17 14:00 98/65 05/12/17 13:14 98.2 67 17 98/65 95 Room Air 05/12/17 12:00 68 05/12/17 08:30 107/63 05/12/17 08:30 84 124/67 05/12/17 08:00 76 Intake and Output 05/12/17 05/13/17 19:00 07:00 # Voids 3 # Bowel Movements 3 3 Laboratory Tests 05/12/17 10:48: Prothrombin Time 10.5, Prothromb Time International Ratio 1.0, Activated Partial Thromboplast Time 28, Iron Level 39, Total Iron Binding Capacity 232L, Percent Iron Saturation 17, Unsaturated Iron Binding 193, Lactate Dehydrogenase 118L, Carcinoembryonic Antigen 3.4H, Vitamin B12 Level 700, Folate [Pending] 05/12/17 11:13: Stool Occult Blood [Pending] 05/13/17 06:57: Prothrombin Time [Pending], Prothromb Time International Ratio [Pending], White Blood Count [Pending], Red Blood Count [Pending], Hemoglobin [Pending], Hematocrit [Pending], Mean Corpuscular Volume [Pending], Mean Corpuscular Hemoglobin [Pending], Mean Corpuscular Hemoglobin Concent [Pending], Red Cell Distribution Width [Pending], Platelet Count [Pending], Mean Platelet Volume [ Pending], Neutrophils (%) (Auto) [Pending], Lymphocytes (%) (Auto) [Pending], Monocytes (%) (Auto) [Pending], Eosinophils (%) (Auto) [Pending], Basophils (%) (Auto) [Pending], Sodium Level [Pending], Potassium Level [Pending], Chloride Level [Pending], Carbon Dioxide Level [Pending], Blood Urea Nitrogen [Pending], Creatinine [Pending], Estimat Glomerular Filtration Rate [Pending], Glucose Level [Pending], Hemoglobin A1c [Pending], Calcium Level [Pending], Phosphorus Level [Pending], Total Bilirubin [Pending], Aspartate Amino Transf (AST/SGOT) [ Pending], Alanine Aminotransferase (ALT/SGPT) [Pending], Alkaline Phosphatase [ Pending], Total Protein [Pending], Albumin [Pending], Globulin [Pending] Height (Feet): 5 Height (Inches): 2.01 Weight (Pounds): 130 General Appearance: no apparent distress EENT: normal ENT inspection Neck: supple Cardiovascular: normal rate Respiratory/Chest: decreased breath sounds Abdomen: normal bowel sounds, non tender, soft Extremities: non-tender TIGRE HERNANDEZ May 13, 2017 07:35
[2017-05-13 07:44] LABS: BASOPHILS % (AUTO) 0.9 % (0.0-2.0); EOSINOPHILS % (AUTO) 4.8 % (0.0-3.0); LYMPHOCYTES % (AUTO) 24.9 % (20.0-45.0); MEAN CORPUSCULAR HEMOGLOBIN 28.8 PG (27.0-31.0); MEAN CORPUSCULAR HGB CONC 30.8 G/DL (32.0-36.0); MEAN CORPUSCULAR VOLUME 94 FL (80-99); MEAN PLATELET VOLUME 7.5 FL (6.5-10.1); NEUTROPHILS % (AUTO) 63.5 % (45.0-75.0); PLATELET COUNT 553 K/UL (150-450); RED BLOOD COUNT 2.93 M/UL (4.20-5.40); RED CELL DISTRIBUTION WIDTH 16.8 % (11.6-14.8); WHITE BLOOD COUNT 8.3 K/UL (4.8-10.8)
[2017-05-13 07:54] LABS: PHOSPHORUS 5.3 mg/dL (2.5-4.8)
[2017-05-13] MEDS: Metoprolol 50mg tab ORAL SCH (08:17)
[2017-05-13 08:22] LABS: ALBUMIN/GLOBULIN RATIO 1.3 (1.0-2.7); CALCIUM 9.1 mg/dL (8.6-10.2); CREATININE 5.1 mg/dL (0.5-0.9); GLOMERULAR FILTRATION RATE 10.3 mL/min (>60); POTASSIUM 3.9 mEQ/L (3.4-4.9); TOTAL PROTEIN 6.3 g/dL (6.6-8.7)
[2017-05-13 08:29] LABS: HEMOGLOBIN A1C 4.9 % (< 6.0)
[2017-05-13] MEDS ORDERED: Metoprolol 50mg tab ORAL SCH (09:00)
--- NOTE | 2017-05-13 10:06 | Infectious Diseases Prog Note ---
Assessment/Plan Assessment/Plan ASSESSMENT: 67-year-old female with: // Hx of C.difficile // hx of UTI - UCx <10K ESBL(+) E.coli SP Rx - h/o VSE.faecalis // Lt heel decubitus not grossly infected // Afebrile without leukocytosis // GI bleed and anemia SP PRBCs // Hx of Vaginal bleed, possible endometrial CA - US: thickened endometrium and 8.5 cm complex left adnexal mass. // ESRD / HD // Advanced dementia // DM2 - HbA1c 6.7% // PVD SP right AKA // NH resident // MRSA colonized // NKDA // Full Code PLAN: - monitor pt off of Ab Rx ( 01/03 SP amikacin d# 4, zosyn d# 3 ) ( 01/02 SP IV vancomycin d# 3 ) - monitor CBC, temperatures - monitor BMP. - monitor CXR - wound care - EGD/ colonoscopy on Sunday Subjective Allergies: Coded Allergies: No Known Allergies (Unverified , 09/15/16) Subjective remains afebrile. comfortable Objective Vital Signs Last 24 Hour Vital Signs Date Time Temp Pulse Resp B/P Pulse Ox O2 Delivery O2 Flow Rate FiO2 05/13/17 08:17 81 103/65 05/13/17 06:45 109/68 05/13/17 05:14 97/55 05/13/17 04:00 97.2 79 20 97/55 97 Room Air 05/13/17 00:00 97.7 78 20 108/58 99 Room Air 05/12/17 21:08 135/71 05/12/17 20:00 97.5 84 18 135/71 96 Room Air 05/12/17 17:23 97.8 76 18 141/83 95 Room Air 05/12/17 14:10 108/61 05/12/17 14:00 98/65 05/12/17 13:14 98.2 67 17 98/65 95 Room Air 05/12/17 12:00 68 Height (Feet): 5 Height (Inches): 2.01 Weight (Pounds): 130 General Appearance: no acute distress Respiratory/Chest: no respiratory distress Cardiovascular: normal rate, regular rhythm Abdomen: normal bowel sounds, soft, non tender, non distended Laboratory Tests Test 05/12/17 10:48 05/12/17 11:13 05/13/17 06:57 Prothrombin Time 10.5 SEC (9.30-11.50) 10.0 SEC (9.30-11.50) Prothromb Time International Ratio 1.0 (0.9-1.1) 1.0 (0.9-1.1) Activated Partial Thromboplast Time 28 SEC (23-33) Iron Level 39 ug/dL (37-145) Total Iron Binding Capacity 232 ug/dL (250-400) L Percent Iron Saturation 17 % (15-50) Unsaturated Iron Binding 193 ug/dL (112-346) Lactate Dehydrogenase 118 U/L (135-230) L Carcinoembryonic Antigen 3.4 ng/mL H Vitamin B12 Level 700 pg/mL (211-946) Folate Pending Stool Occult Blood Pending White Blood Count 8.3 K/UL (4.8-10.8) Red Blood Count 2.93 M/UL (4.20-5.40) L Hemoglobin 8.4 G/DL (12.0-16.0) L Hematocrit 27.4 % (37.0-47.0) L Mean Corpuscular Volume 94 FL (80-99) Mean Corpuscular Hemoglobin 28.8 PG (27.0-31.0) Mean Corpuscular Hemoglobin Concent 30.8 G/DL (32.0-36.0) L Red Cell Distribution Width 16.8 % (11.6-14.8) H Platelet Count 553 K/UL (150-450) H Mean Platelet Volume 7.5 FL (6.5-10.1) Neutrophils (%) (Auto) 63.5 % (45.0-75.0) Lymphocytes (%) (Auto) 24.9 % (20.0-45.0) Monocytes (%) (Auto) 6.0 % (1.0-10.0) Eosinophils (%) (Auto) 4.8 % (0.0-3.0) H Basophils (%) (Auto) 0.9 % (0.0-2.0) Sodium Level 136 mEQ/L (135-145) Potassium Level 3.9 mEQ/L (3.4-4.9) Chloride Level 90 mEQ/L (98-107) L Carbon Dioxide Level 28 mEQ/L (20-30) Anion Gap 18 (5-15) H Blood Urea Nitrogen 56 mg/dL (7-23) H Creatinine 5.1 mg/dL (0.5-0.9) H Estimat Glomerular Filtration Rate 10.3 mL/min (>60) Glucose Level 141 mg/dL (74-106) H Hemoglobin A1c 4.9 % (< 6.0) Calcium Level 9.1 mg/dL (8.6-10.2) Phosphorus Level 5.3 mg/dL (2.5-4.8) H Total Bilirubin 0.2 mg/dL (0.0-1.2) Aspartate Amino Transf (AST/SGOT) 10 U/L (5-40) Alanine Aminotransferase (ALT/SGPT) 6 U/L (3-33) Alkaline Phosphatase 131 U/L (35-104) H Total Protein 6.3 g/dL (6.6-8.7) L Albumin 3.6 g/dL (3.5-5.2) Globulin 2.7 g/dL Albumin/Globulin Ratio 1.3 (1.0-2.7) Current Medications Medications (Trade) Dose Ordered Sig/Althea Route PRN Reason Start Time Stop Time Status Last Admin Dose Admin Acetaminophen (Tylenol) 650 mg Q4H PRN ORAL fever 05/12/17 19:15 06/11/17 19:14 Bisacodyl (Dulcolax) 20 mg ONCE ONCE ORAL 05/13/17 12:00 05/13/17 12:01 Dextrose (Dextrose 50%) STAT PRN IV Hypoglycemia 05/12/17 16:30 06/11/17 16:29 Hydralazine HCl (Apresoline) 25 mg EVERY 8 HOURS ORAL 05/12/17 22:00 06/11/17 21:59 05/12/17 21:08 Lorazepam (Ativan 2mg/ml 1ml) 0.5 mg Q4H PRN IV For Anxiety 05/12/17 16:00 05/19/17 15:59 Metoprolol Tartrate (Lopressor) 50 mg DAILY ORAL 05/13/17 09:00 06/12/17 08:59 Morphine Sulfate (Morphine Sulfate) 1 mg Q4H PRN IVP For Pain 4-10 05/12/17 16:00 05/19/17 15:59 Ondansetron HCl (Zofran) 4 mg Q6H PRN IVP Nausea & Vomiting 05/12/17 16:00 06/11/17 15:59 Pantoprazole (Protonix) 40 mg DAILY ORAL 05/13/17 09:00 06/12/17 08:59 05/13/17 08:20 Polyethylene Glycol (Miralax) 17 gm HSPRN PRN ORAL Constipation 05/12/17 19:15 06/11/17 19:14 Polyethylene Glycol (Miralax) 238 gm ONCE ONCE ORAL 05/13/17 12:00 05/13/17 12:01 Quetiapine Fumarate (SEROquel) 12.5 mg BID ORAL 05/12/17 18:00 06/11/17 17:59 05/13/17 08:21 Zolpidem Tartrate (Ambien) 5 mg HSPRN PRN ORAL Insomnia 05/12/17 21:00 06/11/17 20:59 CITLALY CHIN May 13, 2017 10:06
--- NOTE | 2017-05-13 10:41 | General Progress Note ---
Assessment/Plan Status: stable Assessment/Plan End-stage renal disease, on hemodialysis every Sunday, Sunday, and Sunday. Last dialysis was on Friday 05/11 1. Type 2 diabetes. 2. Hypertension. 3. Anemia of chronic renal disease. & Vaginal bleed 4. Hypercholesterolemia. 5. Peripheral vascular disease. 6. Alzheimer's dementia. 7. ?? LUNG MASS PAST SURGICAL HISTORY: Significant for: 1. Right cijok-znw-zfdm amputation. 2. Open reduction internal fixation of the left femoral neck on 07/20/2016. Plan; HD 05/14- Per GI - Monitor H&H - EPO Phos binders Per consultants Antibiotics- Adjust BP meds Subjective ROS Limited/Unobtainable: No Allergies: Coded Allergies: No Known Allergies (Unverified , 09/15/16) Objective Last 24 Hour Vital Signs Date Time Temp Pulse Resp B/P Pulse Ox O2 Delivery O2 Flow Rate FiO2 05/13/17 08:17 81 103/65 05/13/17 06:45 109/68 05/13/17 05:14 97/55 05/13/17 04:00 97.2 79 20 97/55 97 Room Air 05/13/17 00:00 97.7 78 20 108/58 99 Room Air 05/12/17 21:08 135/71 05/12/17 20:00 97.5 84 18 135/71 96 Room Air 05/12/17 17:23 97.8 76 18 141/83 95 Room Air 05/12/17 14:10 108/61 05/12/17 14:00 98/65 05/12/17 13:14 98.2 67 17 98/65 95 Room Air 05/12/17 12:00 68 Intake and Output 05/12/17 05/13/17 19:00 07:00 # Voids 3 # Bowel Movements 3 3 Laboratory Tests 05/12/17 10:48: Prothrombin Time 10.5, Prothromb Time International Ratio 1.0, Activated Partial Thromboplast Time 28, Iron Level 39, Total Iron Binding Capacity 232L, Percent Iron Saturation 17, Unsaturated Iron Binding 193, Lactate Dehydrogenase 118L, Carcinoembryonic Antigen 3.4H, Vitamin B12 Level 700, Folate [Pending] 05/12/17 11:13: Stool Occult Blood [Pending] 05/13/17 06:57: Prothrombin Time 10.0, Prothromb Time International Ratio 1.0, White Blood Count 8.3, Red Blood Count 2.93L, Hemoglobin 8.4L, Hematocrit 27.4L, Mean Corpuscular Volume 94, Mean Corpuscular Hemoglobin 28.8, Mean Corpuscular Hemoglobin Concent 30.8L, Red Cell Distribution Width 16.8H, Platelet Count 553H , Mean Platelet Volume 7.5, Neutrophils (%) (Auto) 63.5, Lymphocytes (%) (Auto) 24.9, Monocytes (%) (Auto) 6.0, Eosinophils (%) (Auto) 4.8H, Basophils (%) (Auto ) 0.9, Sodium Level 136, Potassium Level 3.9, Chloride Level 90L, Carbon Dioxide Level 28, Anion Gap 18H, Blood Urea Nitrogen 56H, Creatinine 5.1H, Estimat Glomerular Filtration Rate 10.3, Glucose Level 141H, Hemoglobin A1c 4.9 , Calcium Level 9.1, Phosphorus Level 5.3H, Total Bilirubin 0.2, Aspartate Amino Transf (AST/SGOT) 10, Alanine Aminotransferase (ALT/SGPT) 6, Alkaline Phosphatase 131H, Total Protein 6.3L, Albumin 3.6, Globulin 2.7, Albumin/ Globulin Ratio 1.3 Height (Feet): 5 Height (Inches): 2.01 Weight (Pounds): 130 General Appearance: no apparent distress Objective PE not changed TAQUERIA JACOBSON May 13, 2017 10:41
[2017-05-13] MEDS ORDERED: Bisacodyl EC 5mg tab ORAL ONE ×3 (12:00→19:45)
[2017-05-13] MEDS ORDERED: Polyethylene Glycol 238gm bottle ORAL ONE ×2 (12:00)
[2017-05-13] MEDS: HydrALAZINE 10mg Tab ORAL SCH ×2 (13:07→22:00)
[2017-05-13] MEDS: Docusate 100mg cap ORAL SCH ×2 (14:02→17:23)
[2017-05-13 16:15] VITALS: BP 111/62
--- NOTE | 2017-05-13 17:40 | Pulmonology Progress Note ---
Assessment/Plan Problems: (1) Acute encephalopathy (2) Anemia (3) ESRD (end stage renal disease) on dialysis (4) S/P AKA (above knee amputation) unilateral (5) Diabetes mellitus Assessment/Plan OB positive w/u in progress rule out GI bleeding HD by nephrology sliding scale check electrolytes for endoscopy in am Subjective ROS Limited/Unobtainable: No Constitutional: Reports: no symptoms HEENT: Repors: no symptoms Respiratory: Reports: no symptoms Allergies: Coded Allergies: No Known Allergies (Unverified , 09/15/16) Objective Last 24 Hour Vital Signs Date Time Temp Pulse Resp B/P Pulse Ox O2 Delivery O2 Flow Rate FiO2 05/13/17 16:15 98.2 79 18 111/62 95 Room Air 05/13/17 13:07 98/65 05/13/17 08:17 81 103/65 05/13/17 06:45 109/68 05/13/17 05:14 97/55 05/13/17 04:00 97.2 79 20 97/55 97 Room Air 05/13/17 00:00 97.7 78 20 108/58 99 Room Air 05/12/17 21:08 135/71 05/12/17 20:00 97.5 84 18 135/71 96 Room Air Intake and Output 05/12/17 05/13/17 19:00 07:00 # Voids 3 # Bowel Movements 3 3 General Appearance: WD/WN HEENT: normocephalic, atraumatic Respiratory/Chest: chest wall non-tender, lungs clear Cardiovascular: normal peripheral pulses, normal rate Abdomen: normal bowel sounds, no organomegaly Extremities: no cyanosis Laboratory Tests 05/13/17 06:57: White Blood Count 8.3, Red Blood Count 2.93L, Hemoglobin 8.4L, Hematocrit 27.4L , Mean Corpuscular Volume 94, Mean Corpuscular Hemoglobin 28.8, Mean Corpuscular Hemoglobin Concent 30.8L, Red Cell Distribution Width 16.8H, Platelet Count 553H, Mean Platelet Volume 7.5, Neutrophils (%) (Auto) 63.5, Lymphocytes (%) (Auto) 24.9, Monocytes (%) (Auto) 6.0, Eosinophils (%) (Auto) 4.8H, Basophils (%) (Auto) 0.9, Prothrombin Time 10.0, Prothromb Time International Ratio 1.0, Sodium Level 136, Potassium Level 3.9, Chloride Level 90L, Carbon Dioxide Level 28, Anion Gap 18H, Blood Urea Nitrogen 56H, Creatinine 5.1H, Estimat Glomerular Filtration Rate 10.3, Glucose Level 141H, Hemoglobin A1c 4.9, Calcium Level 9.1, Phosphorus Level 5.3H, Total Bilirubin 0.2, Aspartate Amino Transf (AST/SGOT) 10, Alanine Aminotransferase (ALT/SGPT) 6 , Alkaline Phosphatase 131H, Total Protein 6.3L, Albumin 3.6, Globulin 2.7, Albumin/Globulin Ratio 1.3 Current Medications Medications (Trade) Dose Ordered Sig/Althea Route PRN Reason Start Time Stop Time Status Last Admin Dose Admin Acetaminophen (Tylenol) 650 mg Q4H PRN ORAL fever 05/12/17 19:15 06/11/17 19:14 Dextrose (Dextrose 50%) STAT PRN IV Hypoglycemia 05/12/17 16:30 06/11/17 16:29 Docusate Sodium (Colace) 100 mg THREE TIMES A DAY ORAL 05/13/17 13:00 06/12/17 12:59 05/13/17 17:23 Hydralazine HCl (Apresoline) 10 mg EVERY 8 HOURS ORAL 05/13/17 14:00 06/12/17 13:59 Lorazepam (Ativan 2mg/ml 1ml) 0.5 mg Q4H PRN IV For Anxiety 05/12/17 16:00 05/19/17 15:59 Metoprolol Tartrate (Lopressor) 50 mg DAILY ORAL 05/13/17 09:00 06/12/17 08:59 Morphine Sulfate (Morphine Sulfate) 1 mg Q4H PRN IVP For Pain 4-10 05/12/17 16:00 05/19/17 15:59 Ondansetron HCl (Zofran) 4 mg Q6H PRN IVP Nausea & Vomiting 05/12/17 16:00 06/11/17 15:59 Pantoprazole (Protonix) 40 mg DAILY ORAL 05/13/17 09:00 06/12/17 08:59 05/13/17 08:20 Polyethylene Glycol (Miralax) 17 gm HSPRN PRN ORAL Constipation 05/12/17 19:15 06/11/17 19:14 Quetiapine Fumarate (SEROquel) 12.5 mg BID ORAL 05/12/17 18:00 06/11/17 17:59 05/13/17 17:23 Sevelamer Carbonate (Renvela) 800 mg THREE TIMES A DAY ORAL 05/13/17 13:00 06/12/17 12:59 05/13/17 17:23 Zolpidem Tartrate (Ambien) 5 mg HSPRN PRN ORAL Insomnia 05/12/17 21:00 06/11/17 20:59 IHSAN SILVA May 13, 2017 17:40
[2017-05-13 20:00] VITALS: BP 103/60
[2017-05-13] MEDS ORDERED: Fleet's Enema 133ml RECTAL ONE (20:00)
[2017-05-14] VITALS (15 sets, daily range): BP systolic 89–126; BP diastolic 48–76
[2017-05-14] MEDS: HydrALAZINE 10mg Tab ORAL SCH ×3 (05:35→21:25)
[2017-05-14] MEDS: Docusate 100mg cap ORAL SCH ×3 (09:00→17:29)
[2017-05-14] MEDS: Metoprolol 50mg tab ORAL SCH (09:00)
--- NOTE | 2017-05-14 11:25 | General Progress Note ---
Assessment/Plan Status: stable Status Narrative seen during HD- tolerating well. Assessment/Plan End-stage renal disease, on hemodialysis every Sunday, Sunday, and Sunday. Last dialysis was on Friday 05/11 1. Type 2 diabetes. 2. Hypertension. 3. Anemia of chronic renal disease. & Vaginal bleed 4. Hypercholesterolemia. 5. Peripheral vascular disease. 6. Alzheimer's dementia. 7. ?? LUNG MASS PAST SURGICAL HISTORY: Significant for: 1. Right [id number] amputation. 2. Open reduction internal fixation of the left femoral neck on 07/20/2016. Plan; HD 05/14- in process Per GI - Monitor H&H - EPO Phos binders Per consultants Antibiotics- Adjust BP meds Subjective ROS Limited/Unobtainable: No Constitutional: Reports: malaise Allergies: Coded Allergies: No Known Allergies (Unverified , 09/15/16) Objective Last 24 Hour Vital Signs Date Time Temp Pulse Resp B/P Pulse Ox O2 Delivery O2 Flow Rate FiO2 05/14/17 08:10 Room Air 05/14/17 08:10 97.0 77 20 120/55 97 Room Air 05/14/17 08:09 97.9 75 21 108/55 96 Room Air 05/14/17 06:00 92/58 05/14/17 05:35 90/54 05/14/17 04:00 97.0 80 18 90/54 98 Room Air 05/14/17 00:50 97.2 72 20 107/56 97 Room Air 05/13/17 22:00 103/60 05/13/17 20:00 97.7 79 18 103/60 96 Room Air 05/13/17 16:15 98.2 79 18 111/62 95 Room Air 05/13/17 13:07 98/65 Intake and Output 05/13/17 05/14/17 19:00 07:00 Intake Total 240 ml Balance 240 ml Intake Oral 240 ml # Bowel Movements 2 5 Height (Feet): 5 Height (Inches): 5.00 Weight (Pounds): 130 General Appearance: no apparent distress Objective PE not changed TAQUERIA JACOBSON May 14, 2017 11:25
[2017-05-14] MEDS ORDERED: Lidocaine 1% MPF 10mg/ml 5ml ONE (14:45)
[2017-05-14] MEDS ORDERED: Propofol 10mg/ml 20ml IV ONE (14:45)
[2017-05-14] MEDS ORDERED: LR 1000ml ONE (14:45)
--- NOTE | 2017-05-14 14:47 | Pre-Procedure Note/Attestation ---
Pre-Procedure Note/Attestation Complete Prior to Procedure Planned Procedure: not applicable Procedure Narrative: egd/colonoscopy Indications for Procedure Pre-Operative Diagnosis: anemia Attestation I attest that I discussed the nature of the procedure; its benefits; risks and complications; and alternatives (and the risks and benefits of such alternatives ), prior to the procedure, with the patient (or the patient's legal nutrition representative). I attest that, if there was a reasonable possibility of needing a blood transfusion, the patient (or the patient's legal nutrition representative) was given the [facility] standardized written summary, pursuant to the Abdirizak Joanna Blood Safety Act ([place] Health and Safety Code # 1645, as amended). I attest that I re-evaluated the patient just prior to the surgery and that there has been no change in the patient's H&P, except as documented below: TIGRE HERNANDEZ May 14, 2017 14:47
--- NOTE | 2017-05-14 14:58 | Pulmonology Progress Note ---
Assessment/Plan Problems: (1) Acute encephalopathy (2) Anemia (3) ESRD (end stage renal disease) on dialysis (4) S/P AKA (above knee amputation) unilateral (5) Diabetes mellitus Assessment/Plan OB positive w/u in progress rule out GI bleeding HD by nephrology sliding scale check electrolytes for endoscopy today h/h stable on phosphate binders + epogen Subjective ROS Limited/Unobtainable: No Constitutional: Reports: no symptoms HEENT: Repors: no symptoms Respiratory: Reports: no symptoms Allergies: Coded Allergies: No Known Allergies (Unverified , 09/15/16) Objective Last 24 Hour Vital Signs Date Time Temp Pulse Resp B/P Pulse Ox O2 Delivery O2 Flow Rate FiO2 05/14/17 11:44 97.6 87 20 97/59 96 Room Air 05/14/17 11:44 Room Air 05/14/17 11:42 97.2 82 18 104/60 96 Room Air 05/14/17 09:00 87 97/59 05/14/17 08:10 Room Air 05/14/17 08:10 97.0 77 20 120/55 97 Room Air 05/14/17 08:09 97.9 75 21 108/55 96 Room Air 05/14/17 06:00 92/58 05/14/17 05:35 90/54 05/14/17 04:00 97.0 80 18 90/54 98 Room Air 05/14/17 00:50 97.2 72 20 107/56 97 Room Air 05/13/17 22:00 103/60 05/13/17 20:00 97.7 79 18 103/60 96 Room Air 05/13/17 16:15 98.2 79 18 111/62 95 Room Air Intake and Output 05/13/17 05/14/17 19:00 07:00 Intake Total 240 ml Balance 240 ml Intake Oral 240 ml # Bowel Movements 2 5 General Appearance: WD/WN Respiratory/Chest: chest wall non-tender, lungs clear Breasts: no masses Cardiovascular: normal peripheral pulses Abdomen: normal bowel sounds, soft, non tender Genitourinary: normal external genitalia Extremities: no cyanosis Lymphatic: no neck adenopathy Current Medications Medications (Trade) Dose Ordered Sig/Althea Route PRN Reason Start Time Stop Time Status Last Admin Dose Admin Acetaminophen (Tylenol) 650 mg Q4H PRN ORAL fever 05/12/17 19:15 06/11/17 19:14 Dextrose (Dextrose 50%) STAT PRN IV Hypoglycemia 05/12/17 16:30 06/11/17 16:29 Docusate Sodium (Colace) 100 mg THREE TIMES A DAY ORAL 05/13/17 13:00 06/12/17 12:59 05/13/17 17:23 Hydralazine HCl (Apresoline) 10 mg EVERY 8 HOURS ORAL 05/13/17 14:00 06/12/17 13:59 Lorazepam (Ativan 2mg/ml 1ml) 0.5 mg Q4H PRN IV For Anxiety 05/12/17 16:00 05/19/17 15:59 Metoprolol Tartrate (Lopressor) 50 mg DAILY ORAL 05/13/17 09:00 06/12/17 08:59 Morphine Sulfate (Morphine Sulfate) 1 mg Q4H PRN IVP For Pain 4-10 05/12/17 16:00 05/19/17 15:59 Ondansetron HCl (Zofran) 4 mg Q6H PRN IVP Nausea & Vomiting 05/12/17 16:00 06/11/17 15:59 Pantoprazole (Protonix) 40 mg DAILY ORAL 05/13/17 09:00 06/12/17 08:59 05/13/17 08:20 Polyethylene Glycol (Miralax) 17 gm HSPRN PRN ORAL Constipation 05/12/17 19:15 06/11/17 19:14 Quetiapine Fumarate (SEROquel) 12.5 mg BID ORAL 05/12/17 18:00 06/11/17 17:59 05/13/17 17:23 Sevelamer Carbonate (Renvela) 800 mg THREE TIMES A DAY ORAL 05/13/17 13:00 06/12/17 12:59 05/13/17 17:23 Zolpidem Tartrate (Ambien) 5 mg HSPRN PRN ORAL Insomnia 05/12/17 21:00 06/11/17 20:59 IHSAN SILVA May 14, 2017 14:57
--- NOTE | 2017-05-14 15:07 | Anethesia Preoperative Eval ---
Anesthesia Pre-op PMH/ROS General Date of Evaluation: May 14, 2017 Time of Evaluation: 15:05 Anesthesiologist: sravani ASA Score: ASA 3 Mallampati Score Class I : Soft palate, uvula, fauces, pillars visible Class II: Soft palate, uvula, fauces visible Class III: Soft palate, base of uvula visible Class IV: Only hard plate visible Mallampati Classification: Class III Surgeon: jenny Surgical Procedure: eg Anesthesia History: none Family History: no anesthesia problems Allergies: Coded Allergies: No Known Allergies (Unverified , 09/15/16) Medications: see eMAR Past Medical History Cardiovascular: Reports: HTN Pulmonary: Denies: COPD, KARLY, asthma, other Gastrointestinal/Genitourinary: Reports: GERD Neurologic/Psychiatric: Reports: CVA, dementia Endocrine: Reports: DM HEENT: Denies: [place] SANDY (L), [place] (R), cataract (L), cataract (R), glaucoma, other Hematology/Immune: Reports: anemia Musculoskeletal/Integumentary: Denies: DDD, DJD, OA, RA, edema, other Anesthesia Pre-op Phys. Exam Physician Exam Last Vital Signs Date Time Temp Pulse Resp B/P Pulse Ox O2 Delivery O2 Flow Rate FiO2 05/14/17 11:44 97.6 87 20 97/59 96 Room Air Constitutional: NAD Neurologic: CN 2-12 intact Cardiovascular: RRR Respiratory: CTA Gastrointestinal: S/NT/ND Airway Exam Mallampati Score: Class III MO: limited ROM: limited Dentures: no lower, no upper Anesthesia Pre-op A/P Labs Accucheck 1111 at 11am Studies Pre-op Studies: EKG - SR Risk Assessment & Plan Plan: mac Status Change Before Surgery: No Pre-Antibiotics Drug: none YANETH WOODS COAL HAULER May 14, 2017 15:07
--- NOTE | 2017-05-14 15:37 | Immediate Post-Op Evaluation ---
Immediate Post-Op Evalulation Immediate Post-Op Evalulation Procedure: egd/colonoscopy Date of Evaluation: May 14, 2017 Time of Evaluation: 15:30 IV Fluids: 500 Blood Pressure Systolic: 134 Blood Pressure Diastolic: 65 Pulse Rate: 70 Respiratory Rate: 14 O2 Sat by Pulse Oximetry: 100 Temperature (Fahrenheit): 98.0 Nausea: No Vomiting: No Complications none Patient Status: awake, reacts, patent Hydration Status: adequate Drug: none YANETH WOODS CRNA May 14, 2017 15:37
--- NOTE | 2017-05-14 15:40 | 48 Hour Post Anesthesia Eval ---
Post Anesthesia Evaluation Procedure: egd/colonoscopy Date of Evaluation: May 14, 2017 Time of Evaluation: 15:40 Blood Pressure Systolic: 130 0: 65 Pulse Rate: 70 Respiratory Rate: 14 O2 Sat by Pulse Oximetry: 100 Airway: patent Nausea: No Vomiting: No Hydration Status: adequate Cardiopulmonary Status: stable Mental Status/LOC: patient returned to baseline Post-Anesthesia Complications: none Follow-up care needed: N/A YANETH WOODS CRNA May 14, 2017 15:40
--- NOTE | 2017-05-14 18:28 | Infectious Diseases Prog Note ---
Assessment/Plan Assessment/Plan ASSESSMENT: 67-year-old female with: // Hx of C.difficile // hx of UTI - UCx <10K ESBL(+) E.coli SP Rx - h/o VSE.faecalis // Lt heel decubitus not grossly infected // Afebrile without leukocytosis // GI bleed and FOBT+ anemia SP PRBCs - SP EGD/colonoscopy 05/14: P // Hx of Vaginal bleed, possible endometrial CA - US: thickened endometrium and 8.5 cm complex left adnexal mass. // ESRD / HD // Advanced dementia // Acute and chronic BLE DVTs // DM2 - HbA1c 6.7% // PVD SP right AKA // [place] resident // MRSA colonized // NKDA // Full Code PLAN: - monitor pt off of Ab Rx ( 01/03 SP amikacin d# 4, zosyn d# 3 ) ( 01/02 SP IV vancomycin d# 3 ) - monitor CBC, temperatures - monitor BMP. - monitor CXR - wound care - f/u EGD/colonoscopy findings Subjective Allergies: Coded Allergies: No Known Allergies (Unverified , 09/15/16) Subjective remains afebrile. SP EGD/colo Objective Vital Signs Last 24 Hour Vital Signs Date Time Temp Pulse Resp B/P Pulse Ox O2 Delivery O2 Flow Rate FiO2 05/14/17 16:26 97.9 91 20 118/76 96 Room Air 05/14/17 15:55 98.3 86 16 95/55 98 Nasal Cannula 3.0 05/14/17 15:40 91 16 94/55 98 Nasal Cannula 3.0 05/14/17 15:40 70 14 100 05/14/17 15:37 70 14 100 05/14/17 15:35 91 16 91/53 98 Nasal Cannula 3.0 05/14/17 15:30 98.0 90 16 89/48 100 Nasal Cannula 3.0 05/14/17 14:00 94/55 05/14/17 11:44 97.6 87 20 97/59 96 Room Air 05/14/17 11:44 Room Air 05/14/17 11:42 97.2 82 18 104/60 96 Room Air 05/14/17 09:00 87 97/59 05/14/17 08:10 Room Air 05/14/17 08:10 97.0 77 20 120/55 97 Room Air 05/14/17 08:09 97.9 75 21 108/55 96 Room Air 05/14/17 06:00 92/58 05/14/17 05:35 90/54 05/14/17 04:00 97.0 80 18 90/54 98 Room Air 05/14/17 00:50 97.2 72 20 107/56 97 Room Air 05/13/17 22:00 103/60 05/13/17 20:00 97.7 79 18 103/60 96 Room Air Height (Feet): 5 Height (Inches): 5.00 Weight (Pounds): 130 General Appearance: no acute distress Respiratory/Chest: no respiratory distress Cardiovascular: normal rate, regular rhythm Abdomen: normal bowel sounds, soft, non tender, non distended Current Medications Medications (Trade) Dose Ordered Sig/Althea Route PRN Reason Start Time Stop Time Status Last Admin Dose Admin Acetaminophen (Tylenol) 650 mg Q4H PRN ORAL fever 05/12/17 19:15 06/11/17 19:14 Dextrose (Dextrose 50%) STAT PRN IV Hypoglycemia 05/12/17 16:30 06/11/17 16:29 Docusate Sodium (Colace) 100 mg THREE TIMES A DAY ORAL 05/13/17 13:00 06/12/17 12:59 05/14/17 17:29 Hydralazine HCl (Apresoline) 10 mg EVERY 8 HOURS ORAL 05/13/17 14:00 06/12/17 13:59 Lorazepam (Ativan 2mg/ml 1ml) 0.5 mg Q4H PRN IV For Anxiety 05/12/17 16:00 05/19/17 15:59 Metoprolol Tartrate (Lopressor) 50 mg DAILY ORAL 05/13/17 09:00 06/12/17 08:59 Morphine Sulfate (Morphine Sulfate) 1 mg Q4H PRN IVP For Pain 4-10 05/12/17 16:00 05/19/17 15:59 Ondansetron HCl (Zofran) 4 mg Q6H PRN IVP Nausea & Vomiting 05/12/17 16:00 06/11/17 15:59 Pantoprazole (Protonix) 40 mg DAILY ORAL 05/13/17 09:00 06/12/17 08:59 05/13/17 08:20 Polyethylene Glycol (Miralax) 17 gm HSPRN PRN ORAL Constipation 05/12/17 19:15 06/11/17 19:14 Quetiapine Fumarate (SEROquel) 12.5 mg BID ORAL 05/12/17 18:00 06/11/17 17:59 05/14/17 17:30 Sevelamer Carbonate (Renvela) 800 mg THREE TIMES A DAY ORAL 05/13/17 13:00 06/12/17 12:59 05/14/17 17:31 Zolpidem Tartrate (Ambien) 5 mg HSPRN PRN ORAL Insomnia 05/12/17 21:00 06/11/17 20:59 CITLALY CHIN May 14, 2017 18:28
--- NOTE | 2017-05-14 20:06 | Endoscopy Procedure Note ---
Endoscopy Procedure Note Indication for Procedure: anemia Procedures Performed: EGD, colonoscopy Operative Findings/Diagnosis: gastric and colonic polyps Specimen: yes Pt Tolerated Procedure Well: Yes Estimated Blood Loss: none Anesthesiologist: dari bran Anesthesia: MAC Implant(s) used?: No 50 yrs or older w/o bx or poly: Not Applicable 10yrs. F/U not recommended: Not Applicable TIGRE HERNANDEZ May 14, 2017 20:06
--- NOTE | 2017-05-14 20:20 | Cardiology Report ---
APPROVED REPORT EKG Measurement Heart [id number] Normal sinus rhythm Possible Left atrial enlargement Possible Anterior infarct, age undetermined Abnormal ECG
--- NOTE | 2017-05-14 23:31 | Procedure Note ---
DATE OF PROCEDURE: 05/14/2017 SURGEON: Fabrizio Herrera M.D. PROCEDURE: Upper endoscopy with biopsy and snare polypectomy and colonoscopy with snare polypectomy. ANESTHESIOLOGIST: Sulma SMITH. INSTRUMENT: Olympus adult flexible upper endoscope and colonoscope. INDICATION: Anemia and stool for OB positive. The procedure, risks, benefits, and possible consequences, including hemorrhage, aspiration, perforation and infection, and alternative treatments, were explained to the patient/legal guardian by Dr. Fabrizio Herrera and the patient/legal guardian understood and accepted these risks. DESCRIPTION OF PROCEDURE: After informed consent was obtained and the patient was adequately sedated, first Olympus upper endoscope was advanced from mouth into the second portion of the duodenum and retroflexion was performed in the stomach. The patient had evidence of one gastric polyp in the body of the stomach, measured roughly about 1.2 cm in size, that polyp was removed with snare polypectomy technique. There were other multiple polyps in the antral area, they were looking hyperplastic polyps. At least I could see 4 of them; one of them, the largest one, which was about 1 cm was biopsied. At this time, the upper endoscope was retrieved and the patient was turned over for colonoscopy. First, a rectal exam was performed, which was normal. Then, the scope was advanced from rectum to cecum, documented by appendiceal orifice, ileocecal valve, and right upper quadrant palpation. Quality of prep was very good. The patient had severe diverticulosis in the left colon and some scattered diverticula in the right colon. The patient had two colonic polyps, pedunculated, both of them in transverse colon. One measured roughly about 8 mm, the other one roughly about 6 mm, both removed with snare polypectomy technique, but we lost them in the most proximal part and we could not retrieve it. The patient had some nonspecific colitis in the left colon around the sigmoid area, internal hemorrhoids. The patient tolerated the procedure without any complications. SUMMARY OF FINDINGS: 1. Multiple gastric polyps, see above for details. 2. Gastritis. 3. Internal hemorrhoids. 4. Diverticulosis. 5. Two colonic polyps removed see above for details. RECOMMENDATIONS: Followup biopsy results and treat accordingly. I want to thank Dr. Cerna for this kind referral. Fabrizio Porfirio Herrera DR: VANDA JOB#: [id number] CC: Lit Cerna M.D.; Fax#: [phone]
--- NOTE | 2017-05-14 23:31 | Wound Care Consultation ---
Wound Assessment Wound Assessment #1: Wound Present on Admission: Yes New Wound: No Status Change of Wound: No Wound Location Body Site Modif: left Wound Location Body Site: heel Wound Type: pressure ulcer Reggie Test: Does not Reggie Pressure Ulcer Stage: deep tissue injury Wound Thickness: Full Thickness Wound Length: 5.0 Wound Width: 4.5 Wound Depth: utd Percent of Wound Black/Brown: 100 Wound Drainage Amount: None Wound Drainage Odor: None/Absent Tissue Surrounding Wound: Intact Wound General Appearance: Blackened Wound Assessment #2: Wound Number: #2 Wound Present on Admission: Yes New Wound: No Status Change of Wound: No Wound Location Body Site Modif: mid Wound Location Body Site: sacral Wound Type: pressure ulcer Reggie Test: Does not Reggie Wound Thickness: Full Thickness - scar tissue Wound Length: 5.5 Wound Width: 6.0 Wound Depth: utd Percent of Wound [place]/Red: 100 Wound Drainage Amount: None Wound Drainage Odor: None/Absent Tissue Surrounding Wound: Intact Wound General Appearance: Asymptomatic, Open to air Wound Comment #1 Left heel DTI pressure ulcer #2 Sacral area full thickness scar tissue pressure ulcer Recommendation -Local wound care per protocol for DTI on left heel -Keep clean and dry -Turn and reposition -Heel protector on left heel -Offload left heel -Low air loss overlay SPR mattress -Optimize nutrition -Assess and f/u accordingly for any changes BANDAR SORIA RN May 14, 2017 23:30
[2017-05-15] VITALS: BP 126/63
[2017-05-15 04:00] VITALS: BP 103/62
[2017-05-15] MEDS: HydrALAZINE 10mg Tab ORAL SCH ×2 (05:31→14:00)
[2017-05-15 07:57] VITALS: BP 97/60
[2017-05-15 08:02] LABS: CALCIUM 8.6 mg/dL (8.6-10.2); CREATININE 3.1 mg/dL (0.5-0.9); GLOMERULAR FILTRATION RATE 18.3 mL/min (>60); MEAN CORPUSCULAR HEMOGLOBIN 28.8 PG (27.0-31.0); MEAN CORPUSCULAR HGB CONC 30.8 G/DL (32.0-36.0); MEAN CORPUSCULAR VOLUME 94 FL (80-99); MEAN PLATELET VOLUME 7.4 FL (6.5-10.1); PLATELET COUNT 515 K/UL (150-450); RED BLOOD COUNT 2.73 M/UL (4.20-5.40); WHITE BLOOD COUNT 13.3 K/UL (4.8-10.8)
[2017-05-15 08:10] LABS: POTASSIUM 2.7 mEQ/L (3.4-4.9)
[2017-05-15] MEDS: Metoprolol 50mg tab ORAL SCH (08:32)
[2017-05-15] MEDS ORDERED: KCl 10% 40mEq/30ml liquid NG ONE (09:00)
--- NOTE | 2017-05-15 09:01 | General Progress Note ---
Assessment/Plan Status: stable Status Narrative Hgb lower- K low Assessment/Plan End-stage renal disease, on hemodialysis every Sunday, Sunday, and Sunday. Last dialysis was on Friday 05/11 1. Type 2 diabetes. 2. Hypertension. 3. Anemia of chronic renal disease. & Vaginal bleed 4. Hypercholesterolemia. 5. Peripheral vascular disease. 6. Alzheimer's dementia. 7. ?? LUNG MASS PAST SURGICAL HISTORY: Significant for: 1. Right [id number] amputation. 2. Open reduction internal fixation of the left femoral neck on 07/20/2016. Plan; last HD 05/14- K supplement- ? transfusion? Per GI - Monitor H&H - EPO Phos binders Per consultants Antibiotics- Adjust BP meds Subjective ROS Limited/Unobtainable: No Constitutional: Reports: malaise Allergies: Coded Allergies: No Known Allergies (Unverified , 09/15/16) Objective Last 24 Hour Vital Signs Date Time Temp Pulse Resp B/P Pulse Ox O2 Delivery O2 Flow Rate FiO2 05/15/17 08:32 109 97/60 05/15/17 07:57 99.3 109 20 97/60 99 Room Air 05/15/17 05:31 103/62 05/15/17 04:00 98.0 99 18 103/62 99 Room Air 05/15/17 00:00 99.0 106 17 126/63 94 Room Air 05/14/17 22:00 99.0 106 17 126/63 94 Room Air 05/14/17 21:25 105/54 05/14/17 21:24 105/54 05/14/17 20:00 98.4 86 19 115/56 93 Room Air 05/14/17 16:26 97.9 91 20 118/76 96 Room Air 05/14/17 15:55 98.3 86 16 95/55 98 Nasal Cannula 3.0 05/14/17 15:40 91 16 94/55 98 Nasal Cannula 3.0 05/14/17 15:40 70 14 100 05/14/17 15:37 70 14 100 05/14/17 15:35 91 16 91/53 98 Nasal Cannula 3.0 05/14/17 15:30 98.0 90 16 89/48 100 Nasal Cannula 3.0 05/14/17 14:00 94/55 05/14/17 11:44 97.6 87 20 97/59 96 Room Air 05/14/17 11:44 Room Air 05/14/17 11:42 97.2 82 18 104/60 96 Room Air 05/14/17 09:00 87 97/59 Intake and Output 05/14/17 05/15/17 19:00 07:00 Intake Total 640 ml 240 ml Output Total 751 ml Balance -111 ml 240 ml Intake Oral 240 ml 240 ml IV Total 400 ml Output Urine Total 1 ml Hemodialysis UF 750 ml # Bowel Movements 2 Laboratory Tests 05/15/17 07:00: White Blood Count 13.3H, Red Blood Count 2.73L, Hemoglobin 7.9L, Hematocrit 25.6L, Mean Corpuscular Volume 94, Mean Corpuscular Hemoglobin 28.8, Mean Corpuscular Hemoglobin Concent 30.8L, Red Cell Distribution Width 16.0H, Platelet Count 515H, Mean Platelet Volume 7.4, Neutrophils (%) (Auto) , Lymphocytes (%) (Auto) , Monocytes (%) (Auto) , Eosinophils (%) (Auto) , Basophils (%) (Auto) , Neutrophils % (Manual) [Pending], Lymphocytes % (Manual) [Pending], Platelet Estimate [Pending], Platelet Morphology [Pending], Sodium Level 142, Potassium Level 2.7*L, Chloride Level 95L, Carbon Dioxide Level 30, Anion Gap 17H, Blood Urea Nitrogen 30H, Creatinine 3.1H, Estimat Glomerular Filtration Rate 18.3, Glucose Level 167H, Calcium Level 8.6 Height (Feet): 5 Height (Inches): 5.00 Weight (Pounds): 130 General Appearance: no apparent distress Objective PE not changed TAQUERIA JACOBSON May 15, 2017 09:01
[2017-05-15] MEDS: Docusate 100mg cap ORAL SCH ×3 (10:36→17:35)
[2017-05-15 10:52] LABS: BAND NEUTROPHILS % (MANUAL) 0 % (0-8); BASOPHILS % (MANUAL) 0 % (0-2); EOSINOPHILS % (MANUAL) 0 % (0-3); LYMPHOCYTES % (MANUAL) 10 % (20-45); NEUTROPHILS % (MANUAL) 86 % (45-75); PLATELET ESTIMATE INCREASED; PLATELET MORPHOLOGY NORMAL; TOTAL CELLS COUNTED 100
[2017-05-15 10:53] LABS: ANISOCYTOSIS 1+
[2017-05-15 10:54] LABS: HYPOCHROMASIA 3+
[2017-05-15 11:54] VITALS: BP 89/50
[2017-05-15] MEDS ORDERED: Iron Sucrose 200 MG in NS 110 ML IVPB ONE (12:00)
[2017-05-15] MEDS ORDERED: NS 250 ML IVPB ONE (12:15)
--- NOTE | 2017-05-15 14:42 | Diagnostic Imaging Report ---
APPROVED REPORT CPT Code: 28844 Present Symptoms Lower Extremity Pain: Bilateral Comments: Technically difficult study due to patient contracture. Right calf amputee. Past History DVT :BilateralDate : 02/28/17 Technically difficult study due to patient contracture and amputated right calf. RIGHT LEG: There is evidence of acute, non-occlusive thrombus within the distal superficial femoral vein. There is also evidence of chronic, recanalized thrombus in the superficial femoral vein. Venous imaging reveals patency of the common femoral, proximal and mid superficial femoral vein segments. The greater saphenous vein is also within normal limits. Doppler indicates normal spontaneous flow within these segments. LEFT LEG: Venous imaging reveals patency of the common femoral, distal superficial femoral, popliteal and tibial vein segments. The proximal and mid superficial femoral vein segments were not well visualized due to patient contracture. There is also evidence of chronic, recanalized thrombus in the superficial femoral vein, popliteal and tibial veins. The greater saphenous vein is also within normal limits. Doppler indicates normal spontaneous flow within these segments. MAYO Severino and MAYO Barksdale were informed of abnormal results at 12:15 hrs.
[2017-05-15] MEDS ORDERED: Tubing IV Secondary IV ONE (15:41)
[2017-05-15] MEDS ORDERED: NS 275ml ONE (15:41)
[2017-05-15 15:45] VITALS: BP 101/57
--- NOTE | 2017-05-15 16:07 | Pulmonology Progress Note ---
Assessment/Plan Problems: (1) Acute encephalopathy (2) Anemia (3) ESRD (end stage renal disease) on dialysis (4) S/P AKA (above knee amputation) unilateral (5) Diabetes mellitus Assessment/Plan OB positive GI w/u negative, w/u in progress acute rule out GI bleeding ruled out for now HD by nephrology sliding scale check electrolytes on phosphate binders + epogen dc planning in am Subjective ROS Limited/Unobtainable: No Interval Events: endoscopy noted Constitutional: Reports: no symptoms HEENT: Repors: no symptoms Allergies: Coded Allergies: No Known Allergies (Unverified , 09/15/16) Objective Last 24 Hour Vital Signs Date Time Temp Pulse Resp B/P Pulse Ox O2 Delivery O2 Flow Rate FiO2 05/15/17 15:45 98.6 106 20 101/57 95 Room Air 05/15/17 14:00 89/50 05/15/17 11:54 109 89/50 05/15/17 11:23 98.6 106 20 98 Room Air 05/15/17 08:32 109 97/60 05/15/17 07:57 99.3 109 20 97/60 99 Room Air 05/15/17 05:31 103/62 05/15/17 04:00 98.0 99 18 103/62 99 Room Air 05/15/17 00:00 99.0 106 17 126/63 94 Room Air 05/14/17 22:00 99.0 106 17 126/63 94 Room Air 05/14/17 21:25 105/54 05/14/17 21:24 105/54 05/14/17 20:00 98.4 86 19 115/56 93 Room Air 05/14/17 16:26 97.9 91 20 118/76 96 Room Air Intake and Output 05/14/17 05/15/17 19:00 07:00 Intake Total 640 ml 240 ml Output Total 751 ml Balance -111 ml 240 ml Intake Oral 240 ml 240 ml IV Total 400 ml Output Urine Total 1 ml Hemodialysis UF 750 ml # Bowel Movements 2 Objective General Appearance: WD/WN HEENT: normocephalic Respiratory/Chest: chest wall non-tender, lungs clear Cardiovascular: normal peripheral pulses, normal rate Abdomen: normal bowel sounds, soft, non tender Extremities: no cyanosis, other - effusion in both knees Skin: no rash Laboratory Tests 05/15/17 07:00: White Blood Count 13.3H, Red Blood Count 2.73L, Hemoglobin 7.9L, Hematocrit 25.6L, Mean Corpuscular Volume 94, Mean Corpuscular Hemoglobin 28.8, Mean Corpuscular Hemoglobin Concent 30.8L, Red Cell Distribution Width 16.0H, Platelet Count 515H, Mean Platelet Volume 7.4, Neutrophils (%) (Auto) , Lymphocytes (%) (Auto) , Monocytes (%) (Auto) , Eosinophils (%) (Auto) , Basophils (%) (Auto) , Differential Total Cells Counted 100, Neutrophils % ( Manual) 86H, Lymphocytes % (Manual) 10L, Monocytes % (Manual) 4, Eosinophils % ( Manual) 0, Basophils % (Manual) 0, Band Neutrophils 0, Platelet Estimate IncreasedH, Platelet Morphology Normal, Hypochromasia 3+, Anisocytosis 1+, Sodium Level 142, Potassium Level 2.7*L, Chloride Level 95L, Carbon Dioxide Level 30, Anion Gap 17H, Blood Urea Nitrogen 30H, Creatinine 3.1H, Estimat Glomerular Filtration Rate 18.3, Glucose Level 167H, Calcium Level 8.6 Current Medications Medications (Trade) Dose Ordered Sig/Althea Route PRN Reason Start Time Stop Time Status Last Admin Dose Admin Acetaminophen (Tylenol) 650 mg Q4H PRN ORAL fever 05/12/17 19:15 06/11/17 19:14 Dextrose (Dextrose 50%) STAT PRN IV Hypoglycemia 05/12/17 16:30 06/11/17 16:29 Docusate Sodium (Colace) 100 mg THREE TIMES A DAY ORAL 05/13/17 13:00 06/12/17 12:59 05/14/17 17:29 Epoetin Romeo (Procrit (for ESRD on dialysis)) 10,000 units SUN-SUN-SUN SUBQ 05/16/17 21:00 06/15/17 20:59 Lorazepam (Ativan 2mg/ml 1ml) 0.5 mg Q4H PRN IV For Anxiety 05/12/17 16:00 05/19/17 15:59 Metoprolol Tartrate (Lopressor) 50 mg DAILY ORAL 05/13/17 09:00 06/12/17 08:59 Morphine Sulfate (Morphine Sulfate) 1 mg Q4H PRN IVP For Pain 4-10 05/12/17 16:00 05/19/17 15:59 Ondansetron HCl (Zofran) 4 mg Q6H PRN IVP Nausea & Vomiting 05/12/17 16:00 06/11/17 15:59 Pantoprazole (Protonix) 40 mg DAILY ORAL 05/13/17 09:00 06/12/17 08:59 05/15/17 10:38 Polyethylene Glycol (Miralax) 17 gm HSPRN PRN ORAL Constipation 05/12/17 19:15 06/11/17 19:14 Quetiapine Fumarate (SEROquel) 12.5 mg BID ORAL 05/12/17 18:00 06/11/17 17:59 05/15/17 10:39 Sevelamer Carbonate (Renvela) 800 mg THREE TIMES A DAY ORAL 05/13/17 13:00 06/12/17 12:59 05/15/17 12:45 Zolpidem Tartrate (Ambien) 5 mg HSPRN PRN ORAL Insomnia 05/12/17 21:00 06/11/17 20:59 IHSAN SILVA May 15, 2017 16:07
--- NOTE | 2017-05-15 16:16 | GI Progress Note ---
Assessment/Plan Problems: (1) Acute encephalopathy ICD Codes: G93.40 - Encephalopathy, unspecified SNOMED: 2958947 (2) Anemia ICD Codes: D64.9 - Anemia, unspecified SNOMED: 308743718 (3) GI bleed ICD Codes: K92.2 - Gastrointestinal hemorrhage, unspecified SNOMED: 16581850 Qualifiers: Qualified Codes: K92.2 - Gastrointestinal hemorrhage, unspecified (4) Diabetes mellitus ICD Codes: E11.9 - Type 2 diabetes mellitus without complications SNOMED: 22078109 Qualifiers: Qualified Codes: E13.8 - Other specified diabetes mellitus with unspecified complications; Z79.4 - MCC (current) use of insulin (5) Sepsis ICD Codes: A41.9 - Sepsis, unspecified organism SNOMED: 90680395 Status: stable Status Narrative Discussed with Dr. Herrera. Assessment/Plan S/P EGD / Colonoscopy - SUMMARY OF FINDINGS: 1. Multiple gastric polyps, see above for details. 2. Gastritis. 3. Internal hemorrhoids. 4. Diverticulosis. 5. Two colonic polyps removed see above for details. RECOMMENDATIONS: ok for DC per GI standpoint followup biopsy results and treat accordingly outpatient follow up Subjective Gastrointestinal/Abdominal: Reports: no symptoms Objective Last 24 Hour Vital Signs Date Time Temp Pulse Resp B/P Pulse Ox O2 Delivery O2 Flow Rate FiO2 05/15/17 15:45 98.6 106 20 101/57 95 Room Air 05/15/17 14:00 89/50 05/15/17 11:54 109 89/50 05/15/17 11:23 98.6 106 20 98 Room Air 05/15/17 08:32 109 97/60 05/15/17 07:57 99.3 109 20 97/60 99 Room Air 05/15/17 05:31 103/62 05/15/17 04:00 98.0 99 18 103/62 99 Room Air 05/15/17 00:00 99.0 106 17 126/63 94 Room Air 05/14/17 22:00 99.0 106 17 126/63 94 Room Air 05/14/17 21:25 105/54 05/14/17 21:24 105/54 05/14/17 20:00 98.4 86 19 115/56 93 Room Air 05/14/17 16:26 97.9 91 20 118/76 96 Room Air Intake and Output 05/14/17 05/15/17 19:00 07:00 Intake Total 640 ml 240 ml Output Total 751 ml Balance -111 ml 240 ml Intake Oral 240 ml 240 ml IV Total 400 ml Output Urine Total 1 ml Hemodialysis UF 750 ml # Bowel Movements 2 Laboratory Tests Test 05/15/17 07:00 White Blood Count 13.3 K/UL (4.8-10.8) H Red Blood Count 2.73 M/UL (4.20-5.40) L Hemoglobin 7.9 G/DL (12.0-16.0) L Hematocrit 25.6 % (37.0-47.0) L Mean Corpuscular Volume 94 FL (80-99) Mean Corpuscular Hemoglobin 28.8 PG (27.0-31.0) Mean Corpuscular Hemoglobin Concent 30.8 G/DL (32.0-36.0) L Red Cell Distribution Width 16.0 % (11.6-14.8) H Platelet Count 515 K/UL (150-450) H Mean Platelet Volume 7.4 FL (6.5-10.1) Neutrophils (%) (Auto) % (45.0-75.0) Lymphocytes (%) (Auto) % (20.0-45.0) Monocytes (%) (Auto) % (1.0-10.0) Eosinophils (%) (Auto) % (0.0-3.0) Basophils (%) (Auto) % (0.0-2.0) Differential Total Cells Counted 100 Neutrophils % (Manual) 86 % (45-75) H Lymphocytes % (Manual) 10 % (20-45) L Monocytes % (Manual) 4 % (1-10) Eosinophils % (Manual) 0 % (0-3) Basophils % (Manual) 0 % (0-2) Band Neutrophils 0 % (0-8) Platelet Estimate Increased H Platelet Morphology Normal Hypochromasia 3+ Anisocytosis 1+ Sodium Level 142 mEQ/L (135-145) Potassium Level 2.7 mEQ/L (3.4-4.9) *L Chloride Level 95 mEQ/L (98-107) L Carbon Dioxide Level 30 mEQ/L (20-30) Anion Gap 17 (5-15) H Blood Urea Nitrogen 30 mg/dL (7-23) H Creatinine 3.1 mg/dL (0.5-0.9) H Estimat Glomerular Filtration Rate 18.3 mL/min (>60) Glucose Level 167 mg/dL (74-106) H Calcium Level 8.6 mg/dL (8.6-10.2) Height (Feet): 5 Height (Inches): 5.00 Weight (Pounds): 130 General Appearance: no apparent distress, alert Cardiovascular: normal rate Respiratory/Chest: normal breath sounds, no respiratory distress Abdominal Exam: normal bowel sounds, non tender, soft Genitourinary/Rectal: normal rectal exam Extremities: normal range of motion, non-tender, normal inspection Crissy Simpson N.P. May 15, 2017 16:16
--- NOTE | 2017-05-15 19:08 | Infectious Diseases Prog Note ---
Assessment/Plan Assessment/Plan ASSESSMENT: 67-year-old female with: // Hx of C.difficile // hx of UTI - UCx <10K ESBL(+) E.coli SP Rx - h/o VSE.faecalis // Lt heel decubitus not grossly infected // Acute mild leukocytosis post procedure, afebrile ( DVT contributing ) // GI bleed and FOBT+ anemia SP PRBCs - SP EGD/colonoscopy 05/14: Multiple gastric polyps; Gastritis; Internal hemorrhoids; Diverticulosis. // Hx of Vaginal bleed, possible endometrial CA - US: thickened endometrium and 8.5 cm complex left adnexal mass. // ESRD / HD // Advanced dementia // Acute and chronic BLE DVTs // DM2 - HbA1c 6.7% // PVD SP right AKA // [place] resident // MRSA colonized // NKDA // Full Code PLAN: - monitor pt off of Ab Rx ( 01/03 SP amikacin d# 4, zosyn d# 3 ) ( 01/02 SP IV vancomycin d# 3 ) - monitor CBC, temperatures - monitor BMP. - monitor CXR - wound care - f/u path Subjective Allergies: Coded Allergies: No Known Allergies (Unverified , 09/15/16) Subjective remains afebrile. acute mild leukocytosis Objective Vital Signs Last 24 Hour Vital Signs Date Time Temp Pulse Resp B/P Pulse Ox O2 Delivery O2 Flow Rate FiO2 05/15/17 15:45 98.6 106 20 101/57 95 Room Air 05/15/17 14:00 89/50 05/15/17 11:54 109 89/50 05/15/17 11:23 98.6 106 20 98 Room Air 05/15/17 08:32 109 97/60 05/15/17 07:57 99.3 109 20 97/60 99 Room Air 05/15/17 05:31 103/62 05/15/17 04:00 98.0 99 18 103/62 99 Room Air 05/15/17 00:00 99.0 106 17 126/63 94 Room Air 05/14/17 22:00 99.0 106 17 126/63 94 Room Air 05/14/17 21:25 105/54 05/14/17 21:24 105/54 05/14/17 20:00 98.4 86 19 115/56 93 Room Air Height (Feet): 5 Height (Inches): 5.00 Weight (Pounds): 130 General Appearance: no acute distress Respiratory/Chest: no respiratory distress Cardiovascular: normal rate, regular rhythm Abdomen: normal bowel sounds, soft, non tender, non distended Laboratory Tests Test 05/15/17 07:00 White Blood Count 13.3 K/UL (4.8-10.8) H Red Blood Count 2.73 M/UL (4.20-5.40) L Hemoglobin 7.9 G/DL (12.0-16.0) L Hematocrit 25.6 % (37.0-47.0) L Mean Corpuscular Volume 94 FL (80-99) Mean Corpuscular Hemoglobin 28.8 PG (27.0-31.0) Mean Corpuscular Hemoglobin Concent 30.8 G/DL (32.0-36.0) L Red Cell Distribution Width 16.0 % (11.6-14.8) H Platelet Count 515 K/UL (150-450) H Mean Platelet Volume 7.4 FL (6.5-10.1) Neutrophils (%) (Auto) % (45.0-75.0) Lymphocytes (%) (Auto) % (20.0-45.0) Monocytes (%) (Auto) % (1.0-10.0) Eosinophils (%) (Auto) % (0.0-3.0) Basophils (%) (Auto) % (0.0-2.0) Differential Total Cells Counted 100 Neutrophils % (Manual) 86 % (45-75) H Lymphocytes % (Manual) 10 % (20-45) L Monocytes % (Manual) 4 % (1-10) Eosinophils % (Manual) 0 % (0-3) Basophils % (Manual) 0 % (0-2) Band Neutrophils 0 % (0-8) Platelet Estimate Increased H Platelet Morphology Normal Hypochromasia 3+ Anisocytosis 1+ Sodium Level 142 mEQ/L (135-145) Potassium Level 2.7 mEQ/L (3.4-4.9) *L Chloride Level 95 mEQ/L (98-107) L Carbon Dioxide Level 30 mEQ/L (20-30) Anion Gap 17 (5-15) H Blood Urea Nitrogen 30 mg/dL (7-23) H Creatinine 3.1 mg/dL (0.5-0.9) H Estimat Glomerular Filtration Rate 18.3 mL/min (>60) Glucose Level 167 mg/dL (74-106) H Calcium Level 8.6 mg/dL (8.6-10.2) Current Medications Medications (Trade) Dose Ordered Sig/Alteha Route PRN Reason Start Time Stop Time Status Last Admin Dose Admin Acetaminophen (Tylenol) 650 mg Q4H PRN ORAL fever 05/12/17 19:15 06/11/17 19:14 Dextrose (Dextrose 50%) STAT PRN IV Hypoglycemia 05/12/17 16:30 06/11/17 16:29 Docusate Sodium (Colace) 100 mg THREE TIMES A DAY ORAL 05/13/17 13:00 06/12/17 12:59 05/14/17 17:29 Epoetin Romeo (Procrit (for ESRD on dialysis)) 10,000 units SUN-SUN-SUN SUBQ 05/16/17 21:00 06/15/17 20:59 Lorazepam (Ativan 2mg/ml 1ml) 0.5 mg Q4H PRN IV For Anxiety 05/12/17 16:00 05/19/17 15:59 Metoprolol Tartrate (Lopressor) 50 mg DAILY ORAL 05/13/17 09:00 06/12/17 08:59 Morphine Sulfate (Morphine Sulfate) 1 mg Q4H PRN IVP For Pain 4-10 05/12/17 16:00 05/19/17 15:59 Ondansetron HCl (Zofran) 4 mg Q6H PRN IVP Nausea & Vomiting 05/12/17 16:00 06/11/17 15:59 Pantoprazole (Protonix) 40 mg DAILY ORAL 05/13/17 09:00 06/12/17 08:59 05/15/17 10:38 Polyethylene Glycol (Miralax) 17 gm HSPRN PRN ORAL Constipation 05/12/17 19:15 06/11/17 19:14 Quetiapine Fumarate (SEROquel) 12.5 mg BID ORAL 05/12/17 18:00 06/11/17 17:59 05/15/17 17:40 Sevelamer Carbonate (Renvela) 800 mg THREE TIMES A DAY ORAL 05/13/17 13:00 06/12/17 12:59 05/15/17 17:40 Zolpidem Tartrate (Ambien) 5 mg HSPRN PRN ORAL Insomnia 05/12/17 21:00 06/11/17 20:59 CITLALY CHIN May 15, 2017 19:08
[2017-05-15 20:00] VITALS: BP 99/49
[2017-05-16] VITALS (20 sets, daily range): BP systolic 66–129; BP diastolic 42–72
--- NOTE | 2017-05-16 08:53 | Infectious Diseases Prog Note ---
Assessment/Plan Assessment/Plan ASSESSMENT: 67-year-old female with: // Hx of C.difficile // hx of UTI - UCx <10K ESBL(+) E.coli SP Rx - h/o VSE.faecalis // Lt heel decubitus not grossly infected // leukocytosis post procedure, and 2/2 bleeding // HypotTN 2/2 to bleeding // GI bleed and FOBT+ anemia SP PRBCs - SP EGD/colonoscopy 05/14: Multiple gastric polyps; Gastritis; Internal hemorrhoids; Diverticulosis. // Hx of Vaginal bleed, possible endometrial CA - US: thickened endometrium and 8.5 cm complex left adnexal mass. // ESRD / HD // Advanced dementia // Acute and chronic BLE DVTs // DM2 - HbA1c 6.7% // PVD SP right AKA // [place] resident // MRSA colonized // NKDA // Full Code PLAN: - start IV Zosyn for now d# 1 ( 01/03 SP amikacin d# 4, zosyn d# 3 ) ( 01/02 SP IV vancomycin d# 3 ) - monitor CBC, temperatures - monitor BMP. - monitor CXR - wound care - f/u path Subjective Constitutional: Denies: anorexia, chills, drenching sweats, fatigue, fever, no symptoms, other Allergies: Coded Allergies: No Known Allergies (Unverified , 09/15/16) Subjective transferred to ICU t2/2 HYpoTN Objective Vital Signs Last 24 Hour Vital Signs Date Time Temp Pulse Resp B/P Pulse Ox O2 Delivery O2 Flow Rate FiO2 05/16/17 08:00 98.1 127 18 70/48 98 Room Air 05/16/17 04:00 97.5 76 18 102/55 95 Room Air 05/16/17 00:30 101/46 05/16/17 00:00 96.7 107 20 91/42 97 Room Air 05/15/17 20:00 97.9 109 20 99/49 95 Room Air 05/15/17 15:45 98.6 106 20 101/57 95 Room Air 05/15/17 14:00 89/50 05/15/17 11:54 109 89/50 05/15/17 11:23 98.6 106 20 98 Room Air Height (Feet): 5 Height (Inches): 5.00 Weight (Pounds): 130 HEENT: anicteric Respiratory/Chest: normal breath sounds Cardiovascular: regular rhythm Abdomen: no organomegaly Current Medications Medications (Trade) Dose Ordered Sig/Althea Route PRN Reason Start Time Stop Time Status Last Admin Dose Admin Acetaminophen (Tylenol) 650 mg Q4H PRN ORAL fever 05/12/17 19:15 06/11/17 19:14 Dextrose (Dextrose 50%) STAT PRN IV Hypoglycemia 05/12/17 16:30 06/11/17 16:29 Docusate Sodium (Colace) 100 mg THREE TIMES A DAY ORAL 05/13/17 13:00 06/12/17 12:59 05/14/17 17:29 Epoetin Romeo (Procrit (for ESRD on dialysis)) 10,000 units SUN-SUN-SUN SUBQ 05/16/17 21:00 06/15/17 20:59 Lorazepam (Ativan 2mg/ml 1ml) 0.5 mg Q4H PRN IV For Anxiety 05/12/17 16:00 05/19/17 15:59 Metoprolol Tartrate (Lopressor) 50 mg DAILY ORAL 05/13/17 09:00 06/12/17 08:59 Morphine Sulfate (Morphine Sulfate) 1 mg Q4H PRN IVP For Pain 4-10 05/12/17 16:00 05/19/17 15:59 Ondansetron HCl (Zofran) 4 mg Q6H PRN IVP Nausea & Vomiting 05/12/17 16:00 06/11/17 15:59 Pantoprazole (Protonix) 40 mg DAILY ORAL 05/13/17 09:00 06/12/17 08:59 05/15/17 10:38 Polyethylene Glycol (Miralax) 17 gm HSPRN PRN ORAL Constipation 05/12/17 19:15 06/11/17 19:14 Quetiapine Fumarate (SEROquel) 12.5 mg BID ORAL 05/12/17 18:00 06/11/17 17:59 05/15/17 17:40 Sevelamer Carbonate (Renvela) 800 mg THREE TIMES A DAY ORAL 05/13/17 13:00 06/12/17 12:59 05/15/17 17:40 Zolpidem Tartrate (Ambien) 5 mg HSPRN PRN ORAL Insomnia 05/12/17 21:00 06/11/17 20:59 NANCY QUICK M.D. May 16, 2017 08:53
[2017-05-16] MEDS: Metoprolol 50mg tab ORAL SCH (08:59)
[2017-05-16] MEDS: Docusate 100mg cap ORAL SCH ×3 (09:00→16:40)
[2017-05-16 10:46] LABS: ALBUMIN/GLOBULIN RATIO 1.7 (1.0-2.7); CALCIUM 8.8 mg/dL (8.6-10.2); CREATININE 4.5 mg/dL (0.5-0.9); GLOMERULAR FILTRATION RATE 11.9 mL/min (>60); PHOSPHORUS 5.1 mg/dL (2.5-4.8); POTASSIUM 5.2 mEQ/L (3.4-4.9); TOTAL PROTEIN 4.1 g/dL (6.6-8.7)
[2017-05-16 10:56] LABS: MEAN CORPUSCULAR HEMOGLOBIN 28.5 PG (27.0-31.0); MEAN CORPUSCULAR HGB CONC 31.6 G/DL (32.0-36.0); MEAN CORPUSCULAR VOLUME 90 FL (80-99); MEAN PLATELET VOLUME 8.9 FL (6.5-10.1); PLATELET COUNT 328 K/UL (150-450); RED CELL DISTRIBUTION WIDTH 15.5 % (11.6-14.8); WHITE BLOOD COUNT 14.3 K/UL (4.8-10.8)
[2017-05-16 10:59] LABS: OTHERS PATHOLOGIST COMMENT
--- NOTE | 2017-05-16 11:12 | Pulmonolgy Critical Care Note ---
Critical Care - Asmt/Plan Problems: (1) Hemorrhagic shock (2) GI bleed (3) Acute encephalopathy (4) Anemia (5) ESRF (end stage renal failure) (6) Diabetes mellitus Respiratory: monitor respiratory rate, adjust FIO2 Cardiac: start pressors, continue to monitor HR/BP, other - will need triple lumen Renal: F/U I&O Infectious Disease: check cultures Gastrointestinal: continue feedings/current rate Endocrine: monitor blood sugar, check HgA1C Hematologic: monitor H/H, transfuse if hgb<8.5, other Neurologic: PRN Ativan, keep patient comfortable Affect: PRN ativan Prophylaxis: Protonix Notes Reviewed: cardio, 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, consultants, 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 - Objective Last 24 Hour Vital Signs Date Time Temp Pulse Resp B/P Pulse Ox O2 Delivery O2 Flow Rate FiO2 05/16/17 11:05 122 05/16/17 10:54 97.6 125 14 76/55 100 Room Air 05/16/17 09:18 97.9 118 20 66/49 97 Room Air 05/16/17 08:59 127 70/48 05/16/17 08:00 98.1 127 18 70/48 98 Room Air 05/16/17 04:00 97.5 76 18 102/55 95 Room Air 05/16/17 00:30 101/46 05/16/17 00:00 96.7 107 20 91/42 97 Room Air 05/15/17 20:00 97.9 109 20 99/49 95 Room Air 05/15/17 15:45 98.6 106 20 101/57 95 Room Air 05/15/17 14:00 89/50 05/15/17 11:54 109 89/50 05/15/17 11:23 98.6 106 20 98 Room Air Status: awake Condition: critical HEENT: atraumatic Neck: full ROM Lungs: chest wall tender Heart: HR/BP stable, HR/BP unstable Abdomen: soft, non-tender, feeding tube Extremities: no C/C/E, edema Decubiti: location Accucheck: 195 Critical Care - Subjective ROS Limited/Unobtainable: Yes ICU Day: 1 Interval Events: transferred to icu because of low Blood pressure, Drips: start levophed I&O: Intake and Output 05/15/17 05/16/17 19:00 07:00 Intake Total 350 ml Output Total 250 ml Balance 100 ml Intake Oral 350 ml Output Urine Total 250 ml # Voids 1 1 # Bowel Movements 2 CXR: EVA Labs: Laboratory Tests Test 05/16/17 10:00 05/16/17 10:05 05/16/17 10:45 Stool Occult Blood Pending Sodium Level 142 mEQ/L (135-145) Potassium Level 5.2 mEQ/L (3.4-4.9) #H Chloride Level 99 mEQ/L (98-107) Carbon Dioxide Level 21 mEQ/L (20-30) Anion Gap 22 (5-15) H Blood Urea Nitrogen 78 mg/dL (7-23) #H Creatinine 4.5 mg/dL (0.5-0.9) H Estimat Glomerular Filtration Rate 11.9 mL/min (>60) Glucose Level 267 mg/dL (74-106) #H Calcium Level 8.8 mg/dL (8.6-10.2) Phosphorus Level 5.1 mg/dL (2.5-4.8) H Total Bilirubin 0.5 mg/dL (0.0-1.2) Aspartate Amino Transf (AST/SGOT) 11 U/L (5-40) Alanine Aminotransferase (ALT/SGPT) 6 U/L (3-33) Alkaline Phosphatase 77 U/L (35-104) Pro-B-Type Natriuretic Peptide 5021 pg/mL (0-125) H Total Protein 4.1 g/dL (6.6-8.7) L Albumin 2.6 g/dL (3.5-5.2) L Globulin 1.5 g/dL Albumin/Globulin Ratio 1.7 (1.0-2.7) White Blood Count 14.3 K/UL (4.8-10.8) H Red Blood Count 2.30 M/UL (4.20-5.40) L Hemoglobin 6.5 G/DL (12.0-16.0) *L Hematocrit 20.7 % (37.0-47.0) L Mean Corpuscular Volume 90 FL (80-99) Mean Corpuscular Hemoglobin 28.5 PG (27.0-31.0) Mean Corpuscular Hemoglobin Concent 31.6 G/DL (32.0-36.0) L Red Cell Distribution Width 15.5 % (11.6-14.8) H Platelet Count 328 K/UL (150-450) Mean Platelet Volume 8.9 FL (6.5-10.1) Neutrophils (%) (Auto) % (45.0-75.0) Lymphocytes (%) (Auto) % (20.0-45.0) Monocytes (%) (Auto) % (1.0-10.0) Eosinophils (%) (Auto) % (0.0-3.0) Basophils (%) (Auto) % (0.0-2.0) Neutrophils % (Manual) Pending Lymphocytes % (Manual) Pending Platelet Estimate Pending Platelet Morphology Pending IHSAN SIVLA May 16, 2017 11:12
[2017-05-16] MEDS ORDERED: Lidocaine 1% MPF 10mg/ml 5ml INJ ONE (11:15)
--- NOTE | 2017-05-16 11:16 | General Progress Note ---
Assessment/Plan Status: deteriorating Status Narrative massive GI bleed- BRB from rectum Assessment/Plan End-stage renal disease, on hemodialysis every Sunday, Sunday, and Sunday. Last dialysis was on Friday 05/11 1. Type 2 diabetes. 2. Hypertension. 3. Anemia of chronic renal disease. & Vaginal bleed 4. Hypercholesterolemia. 5. Peripheral vascular disease. 6. Alzheimer's dementia. 7. ?? LUNG MASS PAST SURGICAL HISTORY: Significant for: 1. Right [id number] amputation. 2. Open reduction internal fixation of the left femoral neck on 07/20/2016. Plan; last HD 05/17 stop mind altering meds ? transfusion? Per GI - Monitor H&H - EPO Phos binders Per consultants Antibiotics- Adjust BP meds Subjective ROS Limited/Unobtainable: No Constitutional: Reports: malaise Allergies: Coded Allergies: No Known Allergies (Unverified , 09/15/16) Objective Last 24 Hour Vital Signs Date Time Temp Pulse Resp B/P Pulse Ox O2 Delivery O2 Flow Rate FiO2 05/16/17 11:05 122 05/16/17 10:54 97.6 125 14 76/55 100 Room Air 05/16/17 09:18 97.9 118 20 66/49 97 Room Air 05/16/17 08:59 127 70/48 05/16/17 08:00 98.1 127 18 70/48 98 Room Air 05/16/17 04:00 97.5 76 18 102/55 95 Room Air 05/16/17 00:30 101/46 05/16/17 00:00 96.7 107 20 91/42 97 Room Air 05/15/17 20:00 97.9 109 20 99/49 95 Room Air 05/15/17 15:45 98.6 106 20 101/57 95 Room Air 05/15/17 14:00 89/50 05/15/17 11:54 109 89/50 05/15/17 11:23 98.6 106 20 98 Room Air Intake and Output 05/15/17 05/16/17 19:00 07:00 Intake Total 350 ml Output Total 250 ml Balance 100 ml Intake Oral 350 ml Output Urine Total 250 ml # Voids 1 1 # Bowel Movements 2 Laboratory Tests 05/16/17 10:00: Stool Occult Blood [Pending] 05/16/17 10:05: Sodium Level 142, Potassium Level 5.2#H, Chloride Level 99, Carbon Dioxide Level 21, Anion Gap 22H, Blood Urea Nitrogen 78#H, Creatinine 4.5H, Estimat Glomerular Filtration Rate 11.9, Glucose Level 267#H, Calcium Level 8.8, Phosphorus Level 5.1H, Total Bilirubin 0.5, Aspartate Amino Transf (AST/SGOT) 11 , Alanine Aminotransferase (ALT/SGPT) 6, Alkaline Phosphatase 77, Pro-B-Type Natriuretic Peptide 5021H, Total Protein 4.1L, Albumin 2.6L, Globulin 1.5, Albumin/Globulin Ratio 1.7 05/16/17 10:45: White Blood Count 14.3H, Red Blood Count 2.30L, Hemoglobin 6.5*L, Hematocrit 20.7L, Mean Corpuscular Volume 90, Mean Corpuscular Hemoglobin 28.5, Mean Corpuscular Hemoglobin Concent 31.6L, Red Cell Distribution Width 15.5H, Platelet Count 328, Mean Platelet Volume 8.9, Neutrophils (%) (Auto) , Lymphocytes (%) (Auto) , Monocytes (%) (Auto) , Eosinophils (%) (Auto) , Basophils (%) (Auto) , Neutrophils % (Manual) [Pending], Lymphocytes % (Manual) [Pending], Platelet Estimate [Pending], Platelet Morphology [Pending] Height (Feet): 5 Height (Inches): 5.00 Weight (Pounds): 130 General Appearance: mild distress, other - low BP- Trendelenberg Objective massive bleed from rectum TAQUERIA JACOBSON May 16, 2017 11:16
[2017-05-16 11:29] LABS: ANISOCYTOSIS 1+; BAND NEUTROPHILS % (MANUAL) 0 % (0-8); BASOPHILS % (MANUAL) 0 % (0-2); EOSINOPHILS % (MANUAL) 1 % (0-3); HYPOCHROMASIA 1+; LYMPHOCYTES % (MANUAL) 5 % (20-45); NEUTROPHILS % (MANUAL) 92 % (45-75); PLATELET ESTIMATE ADEQUATE; PLATELET MORPHOLOGY NORMAL; TOTAL CELLS COUNTED 100
[2017-05-16] MEDS ORDERED: LORazepam Inj 2mg/ml 1ml IV PRN (12:00)
[2017-05-16] MEDS ORDERED: Morphine Sulfate 2mg/ml Inj IVP PRN (12:00)
[2017-05-16] MEDS ORDERED: Sucralfate 1gm tab ORAL SCH (13:00)
[2017-05-16] MEDS ORDERED: Heparin 2000 units/Ns 1000ml IV ONE (13:30)
[2017-05-16] MEDS: Sucralfate 1gm tab ORAL SCH ×3 (13:33→21:24)
--- NOTE | 2017-05-16 13:49 | GI Progress Note ---
Assessment/Plan Problems: (1) Acute encephalopathy ICD Codes: G93.40 - Encephalopathy, unspecified SNOMED: 1203571 (2) Anemia ICD Codes: D64.9 - Anemia, unspecified SNOMED: 408012365 (3) GI bleed ICD Codes: K92.2 - Gastrointestinal hemorrhage, unspecified SNOMED: 98270001 Qualifiers: Qualified Codes: K92.2 - Gastrointestinal hemorrhage, unspecified (4) Diabetes mellitus ICD Codes: E11.9 - Type 2 diabetes mellitus without complications SNOMED: 64728947 Qualifiers: Qualified Codes: E13.8 - Other specified diabetes mellitus with unspecified complications; Z79.4 - prison (current) use of insulin (5) Sepsis ICD Codes: A41.9 - Sepsis, unspecified organism SNOMED: 28819912 (6) Gastric polyp ICD Codes: K31.7 - Polyp of stomach and duodenum SNOMED: 24800507 Status: unchanged Status Narrative Discussed with Dr. Herrera. Assessment/Plan S/P EGD / Colonoscopy - SUMMARY OF FINDINGS: 1. Multiple gastric polyps, see above for details. 2. Gastritis. 3. Internal hemorrhoids. 4. Diverticulosis. 5. Two colonic polyps removed see above for details. pt transferred to ICU due to drop in Hgb RECOMMENDATIONS: repeat EGD scheduled tomorrow to reevaluate for gastric bleed - NPO + IVFs - hold all blood thinners followup biopsy results and treat accordingly ppi + carafate fu labs Subjective Gastrointestinal/Abdominal: Reports: no symptoms Objective Last 24 Hour Vital Signs Date Time Temp Pulse Resp B/P Pulse Ox O2 Delivery O2 Flow Rate FiO2 05/16/17 13:00 116 16 85/63 100 Room Air 05/16/17 12:05 97.8 121 15 83/65 100 Room Air 05/16/17 11:05 122 05/16/17 10:54 97.6 125 14 76/55 100 Room Air 05/16/17 09:18 97.9 118 20 66/49 97 Room Air 05/16/17 08:59 127 70/48 05/16/17 08:00 98.1 127 18 70/48 98 Room Air 05/16/17 04:00 97.5 76 18 102/55 95 Room Air 05/16/17 00:30 101/46 05/16/17 00:00 96.7 107 20 91/42 97 Room Air 05/15/17 20:00 97.9 109 20 99/49 95 Room Air 05/15/17 15:45 98.6 106 20 101/57 95 Room Air 05/15/17 14:00 89/50 Intake and Output 05/15/17 05/16/17 19:00 07:00 Intake Total 350 ml Output Total 250 ml Balance 100 ml Intake Oral 350 ml Output Urine Total 250 ml # Voids 1 1 # Bowel Movements 2 Laboratory Tests Test 05/16/17 10:00 05/16/17 10:05 05/16/17 10:45 Stool Occult Blood Positive (NEGATIVE) Sodium Level 142 mEQ/L (135-145) Potassium Level 5.2 mEQ/L (3.4-4.9) #H Chloride Level 99 mEQ/L (98-107) Carbon Dioxide Level 21 mEQ/L (20-30) Anion Gap 22 (5-15) H Blood Urea Nitrogen 78 mg/dL (7-23) #H Creatinine 4.5 mg/dL (0.5-0.9) H Estimat Glomerular Filtration Rate 11.9 mL/min (>60) Glucose Level 267 mg/dL (74-106) #H Calcium Level 8.8 mg/dL (8.6-10.2) Phosphorus Level 5.1 mg/dL (2.5-4.8) H Total Bilirubin 0.5 mg/dL (0.0-1.2) Aspartate Amino Transf (AST/SGOT) 11 U/L (5-40) Alanine Aminotransferase (ALT/SGPT) 6 U/L (3-33) Alkaline Phosphatase 77 U/L (35-104) Pro-B-Type Natriuretic Peptide 5021 pg/mL (0-125) H Total Protein 4.1 g/dL (6.6-8.7) L Albumin 2.6 g/dL (3.5-5.2) L Globulin 1.5 g/dL Albumin/Globulin Ratio 1.7 (1.0-2.7) White Blood Count 14.3 K/UL (4.8-10.8) H Red Blood Count 2.30 M/UL (4.20-5.40) L Hemoglobin 6.5 G/DL (12.0-16.0) *L Hematocrit 20.7 % (37.0-47.0) L Mean Corpuscular Volume 90 FL (80-99) Mean Corpuscular Hemoglobin 28.5 PG (27.0-31.0) Mean Corpuscular Hemoglobin Concent 31.6 G/DL (32.0-36.0) L Red Cell Distribution Width 15.5 % (11.6-14.8) H Platelet Count 328 K/UL (150-450) Mean Platelet Volume 8.9 FL (6.5-10.1) Neutrophils (%) (Auto) % (45.0-75.0) Lymphocytes (%) (Auto) % (20.0-45.0) Monocytes (%) (Auto) % (1.0-10.0) Eosinophils (%) (Auto) % (0.0-3.0) Basophils (%) (Auto) % (0.0-2.0) Differential Total Cells Counted 100 Neutrophils % (Manual) 92 % (45-75) H Lymphocytes % (Manual) 5 % (20-45) L Monocytes % (Manual) 2 % (1-10) Eosinophils % (Manual) 1 % (0-3) Basophils % (Manual) 0 % (0-2) Band Neutrophils 0 % (0-8) Platelet Estimate Adequate Platelet Morphology Normal Hypochromasia 1+ Anisocytosis 1+ Height (Feet): 5 Height (Inches): 5.00 Weight (Pounds): 130 General Appearance: no apparent distress, alert Cardiovascular: normal rate Respiratory/Chest: normal breath sounds, no respiratory distress Abdominal Exam: normal bowel sounds, non tender, soft Crissy Simpson N.P. May 16, 2017 13:49
[2017-05-16] MEDS: Pantoprazole 80 MG in NS 250ml IV SCH (14:04)
[2017-05-16] MEDS ORDERED: Lidocaine 1% Plain 30 ml INJ ONE (16:00)
[2017-05-16] MEDS: Piperacillin/Tazobactam 3.375 GM in D5W 110 ML IVPB SCH ×2 (16:39→21:33)
[2017-05-16] MEDS ORDERED: Miralax 17gm pkt ORAL PRN (19:15)
[2017-05-16 20:23] LABS: BASOPHILS % (AUTO) 1.1 % (0.0-2.0); EOSINOPHILS % (AUTO) 0.3 % (0.0-3.0); MEAN CORPUSCULAR HEMOGLOBIN 30.4 PG (27.0-31.0); MEAN CORPUSCULAR HGB CONC 33.1 G/DL (32.0-36.0); MEAN CORPUSCULAR VOLUME 92 FL (80-99); MONOCYTES % (AUTO) 8.3 % (1.0-10.0); NEUTROPHILS % (AUTO) 75.2 % (45.0-75.0); PLATELET COUNT 232 K/UL (150-450); RED BLOOD COUNT 2.69 M/UL (4.20-5.40); RED CELL DISTRIBUTION WIDTH 13.9 % (11.6-14.8); WHITE BLOOD COUNT 11.9 K/UL (4.8-10.8)
[2017-05-16] MEDS ORDERED: Epogen (for ESRD on dialysis) SUBQ SCH ×2 (21:00)
[2017-05-16] MEDS ORDERED: Zolpidem 5mg tab ORAL PRN (21:00)
[2017-05-16] MEDS ORDERED: NS 275ml ONE (22:27)
[2017-05-16] MEDS ORDERED: Tubing IV Blood Pump IV ONE (22:27)
[2017-05-17] VITALS (30 sets, daily range): BP systolic 64–140; BP diastolic 39–73
[2017-05-17] MEDS: Pantoprazole 80 MG in NS 250ml IV SCH ×3 (00:05→19:47)
[2017-05-17 02:08] LABS: MEAN CORPUSCULAR HEMOGLOBIN 30.4 PG (27.0-31.0); MEAN CORPUSCULAR HGB CONC 33.2 G/DL (32.0-36.0); MEAN CORPUSCULAR VOLUME 92 FL (80-99); PLATELET COUNT 216 K/UL (150-450); RED BLOOD COUNT 1.45 M/UL (4.20-5.40); RED CELL DISTRIBUTION WIDTH 13.7 % (11.6-14.8); WHITE BLOOD COUNT 16.6 K/UL (4.8-10.8)
[2017-05-17 02:14] LABS: INR 1.2 (0.9-1.1); PROTHROMBIN TIME 12.7 SEC (9.30-11.50)
[2017-05-17 02:30] LABS: CRP QUANT 1.7 mg/dL (< 0.5); URIC ACID 7.4 mg/dL (3.0-7.5)
[2017-05-17 02:31] LABS: ALANINE AMINOTRANSFERASE < 5 U/L (3-33); ALBUMIN/GLOBULIN RATIO 1.6 (1.0-2.7); ANION GAP 24 (5-15); ASPARTATE AMINO TRANSFERASE 8 U/L (5-40); CALCIUM 7.9 mg/dL (8.6-10.2); CARBON DIOXIDE 18 mEQ/L (20-30); CHLORIDE 100 mEQ/L (98-107); CREATININE 4.9 mg/dL (0.5-0.9); GLOMERULAR FILTRATION RATE 10.8 mL/min (>60); HEMOLYSIS 20; MAGNESIUM 1.9 mg/dL (1.7-2.5); PHOSPHORUS 4.3 mg/dL (2.5-4.8); POTASSIUM 5.3 mEQ/L (3.4-4.9); SODIUM 142 mEQ/L (135-145); TOTAL PROTEIN 3.4 g/dL (6.6-8.7)
[2017-05-17] MEDS ORDERED: Phenylephrine 10mg/ml Vial ONE (04:00)
[2017-05-17] MEDS ORDERED: Etomidate 40mg/20ml Inj IV ONE (04:00)
[2017-05-17] MEDS ORDERED: Nimbex 2mg/ml Inj 10ML IVP ONE (04:00)
[2017-05-17] MEDS ORDERED: Midazolam 2mg/2ml Inj ONE (04:00)
[2017-05-17] MEDS ORDERED: Levophed 4mg/4mL Inj IV ONE (04:38)
--- NOTE | 2017-05-17 04:45 | Pre-Procedure Note/Attestation ---
Pre-Procedure Note/Attestation Complete Prior to Procedure Planned Procedure: not applicable Procedure Narrative: egd Indications for Procedure Pre-Operative Diagnosis: active GIB Attestation I attest that I discussed the nature of the procedure; its benefits; risks and complications; and alternatives (and the risks and benefits of such alternatives ), prior to the procedure, with the patient (or the patient's legal phone representative). I attest that, if there was a reasonable possibility of needing a blood transfusion, the patient (or the patient's legal phone representative) was given the [facility] standardized written summary, pursuant to the [place] Blood Safety Act ([place] Health and Safety Code # 1645, as amended). I attest that I re-evaluated the patient just prior to the surgery and that there has been no change in the patient's H&P, except as documented below: TIGRE HERNANDEZ May 17, 2017 04:45
[2017-05-17] MEDS ORDERED: EPINEPHrine 1mg/10ml Syringe IV ONE (05:31)
--- NOTE | 2017-05-17 06:00 | Anethesia Preoperative Eval ---
Anesthesia Pre-op PMH/ROS General Date of Evaluation: May 17, 2017 ASA Score: ASA 4 Mallampati Score Class I : Soft palate, uvula, fauces, pillars visible Class II: Soft palate, uvula, fauces visible Class III: Soft palate, base of uvula visible Class IV: Only hard plate visible Mallampati Classification: Class III Surgeon: Sharon Diagnosis: Active GI bleeding Surgical Procedure: Emergency intubation and EGD with control of bleeding Anesthesia History: none Family History: no anesthesia problems Allergies: Coded Allergies: No Known Allergies (Unverified , 09/15/16) Medications: see eMAR Past Medical History Cardiovascular: Reports: HTN, Denies: CAD, [place], arrhythmia, other, valve dz Pulmonary: Denies: COPD, KARLY, asthma, other Gastrointestinal/Genitourinary: Reports: ESRD, GERD, Denies: CRI, other Neurologic/Psychiatric: Reports: CVA, dementia, Denies: TIA, depression/anxiety, other Endocrine: Reports: DM, Denies: hypothyroidism, other, steroids HEENT: Denies: [place] (L), [place] (R), cataract (L), cataract (R), glaucoma, other Hematology/Immune: Reports: anemia - HB 4.4, other - active GI bleeding with evidence of hemorrhagic shock; on arrival to ICU, patient with BP of 64/41, followed by 57/45, Denies: DVT, bleeding disorder Musculoskeletal/Integumentary: Denies: DDD, DJD, OA, RA, edema, other PSxH Narrative: Unablet o determine Anesthesia Pre-op Phys. Exam Physician Exam Last Vital Signs Date Time Temp Pulse Resp B/P Pulse Ox O2 Delivery O2 Flow Rate FiO2 05/17/17 05:09 97 12 Mechanical Ventilator 100 05/17/17 05:00 87/55 93 2.0 05/17/17 04:00 95.7 Constitutional: other - obtunded, not responsive, hypotensive Cardiovascular: other - tachy Respiratory: other - bilateral crackles Airway Exam Mallampati Score: Class III MO: full ROM: full Dentures: no lower, no upper Anesthesia Pre-op A/P Labs Hematology Test 05/16/17 10:45 05/16/17 19:50 05/17/17 02:00 White Blood Count 14.3 K/UL (4.8-10.8) H 11.9 K/UL (4.8-10.8) H 16.6 K/UL (4.8-10.8) H Red Blood Count 2.30 M/UL (4.20-5.40) L 2.69 M/UL (4.20-5.40) L 1.45 M/UL (4.20-5.40) L Hemoglobin 6.5 G/DL (12.0-16.0) *L 8.2 G/DL (12.0-16.0) L 4.4 G/DL (12.0-16.0) Hematocrit 20.7 % (37.0-47.0) L 24.7 % (37.0-47.0) L 13.2 % (37.0-47.0) #L Mean Corpuscular Volume 90 FL (80-99) 92 FL (80-99) 92 FL (80-99) Mean Corpuscular Hemoglobin 28.5 PG (27.0-31.0) 30.4 PG (27.0-31.0) 30.4 PG (27.0-31.0) Mean Corpuscular Hemoglobin Concent 31.6 G/DL (32.0-36.0) L 33.1 G/DL (32.0-36.0) 33.2 G/DL (32.0-36.0) Red Cell Distribution Width 15.5 % (11.6-14.8) H 13.9 % (11.6-14.8) 13.7 % (11.6-14.8) Platelet Count 328 K/UL (150-450) 232 K/UL (150-450) 216 K/UL (150-450) Mean Platelet Volume 8.9 FL (6.5-10.1) 9.0 FL (6.5-10.1) 8.0 FL (6.5-10.1) Neutrophils (%) (Auto) % (45.0-75.0) 75.2 % (45.0-75.0) H % (45.0-75.0) Lymphocytes (%) (Auto) % (20.0-45.0) 15.0 % (20.0-45.0) L % (20.0-45.0) Monocytes (%) (Auto) % (1.0-10.0) 8.3 % (1.0-10.0) % (1.0-10.0) Eosinophils (%) (Auto) % (0.0-3.0) 0.3 % (0.0-3.0) % (0.0-3.0) Basophils (%) (Auto) % (0.0-2.0) 1.1 % (0.0-2.0) % (0.0-2.0) Differential Total Cells Counted 100 Neutrophils % (Manual) 92 % (45-75) H Lymphocytes % (Manual) 5 % (20-45) L Monocytes % (Manual) 2 % (1-10) Eosinophils % (Manual) 1 % (0-3) Basophils % (Manual) 0 % (0-2) Band Neutrophils 0 % (0-8) Platelet Estimate Adequate Platelet Morphology Normal Hypochromasia 1+ Anisocytosis 1+ Coagulation Test 05/17/17 02:00 Prothrombin Time 12.7 SEC (9.30-11.50) H Prothromb Time International Ratio 1.2 (0.9-1.1) H Activated Partial Thromboplast Time 27 SEC (23-33) Chemistry Test 05/16/17 10:05 05/17/17 02:00 Sodium Level 142 mEQ/L (135-145) 142 mEQ/L (135-145) Potassium Level 5.2 mEQ/L (3.4-4.9) #H 5.3 mEQ/L (3.4-4.9) H Chloride Level 99 mEQ/L (98-107) 100 mEQ/L (98-107) Carbon Dioxide Level 21 mEQ/L (20-30) 18 mEQ/L (20-30) L Anion Gap 22 (5-15) H 24 (5-15) H Blood Urea Nitrogen 78 mg/dL (7-23) #H 98 mg/dL (7-23) H Creatinine 4.5 mg/dL (0.5-0.9) H 4.9 mg/dL (0.5-0.9) H Estimat Glomerular Filtration Rate 11.9 mL/min (>60) 10.8 mL/min (>60) Glucose Level 267 mg/dL (74-106) #H 341 mg/dL (74-106) H Calcium Level 8.8 mg/dL (8.6-10.2) 7.9 mg/dL (8.6-10.2) L Phosphorus Level 5.1 mg/dL (2.5-4.8) H 4.3 mg/dL (2.5-4.8) Total Bilirubin 0.5 mg/dL (0.0-1.2) 0.7 mg/dL (0.0-1.2) Aspartate Amino Transf (AST/SGOT) 11 U/L (5-40) 8 U/L (5-40) Alanine Aminotransferase (ALT/SGPT) 6 U/L (3-33) < 5 U/L (3-33) Alkaline Phosphatase 77 U/L (35-104) 48 U/L (35-104) Pro-B-Type Natriuretic Peptide 5021 pg/mL (0-125) H 5889 pg/mL (0-125) H Total Protein 4.1 g/dL (6.6-8.7) L 3.4 g/dL (6.6-8.7) L Albumin 2.6 g/dL (3.5-5.2) L 2.1 g/dL (3.5-5.2) L Globulin 1.5 g/dL 1.3 g/dL Albumin/Globulin Ratio 1.7 (1.0-2.7) 1.6 (1.0-2.7) Uric Acid 7.4 mg/dL (3.0-7.5) Magnesium Level 1.9 mg/dL (1.7-2.5) C-Reactive Protein, Quantitative 1.7 mg/dL (< 0.5) H Risk Assessment & Plan Assessment: ASA STEVE Plan: GA Status Change Before Surgery: No - critical Pre-Antibiotics Drug: N/A BRAN AGUILAR M.D. May 17, 2017 06:00
[2017-05-17] MEDS: EPINEPHrine 1mg/1ml Amp 1 MG in D5W 249 ML IV SCH (06:01)
--- NOTE | 2017-05-17 06:02 | Immediate Post-Op Evaluation ---
Immediate Post-Op Evalulation Immediate Post-Op Evalulation Procedure: egd/colonoscopy Date of Evaluation: May 17, 2017 Time of Evaluation: 05:58 IV Fluids: 400 Blood Products: 2 units PRBCs Estimated Blood Loss: 500ml via GI tract Urinary Output: 0 Blood Pressure Systolic: 104 Blood Pressure Diastolic: 71 Pulse Rate: 109 Respiratory Rate: 12 Temperature (Fahrenheit): 95.7 Pain Score (1-10): 0 Nausea: No Vomiting: No Complications 0 Patient Status: no response - baseline, ventilated - intubated and on mechanical ventilation, none Hydration Status: adequate Drug: N/A BRAN AGUILAR M.D. May 17, 2017 06:02
[2017-05-17] MEDS: Piperacillin/Tazobactam 3.375 GM in D5W 110 ML IVPB SCH (06:05)
[2017-05-17 06:51] LABS: MEAN CORPUSCULAR HEMOGLOBIN 31.9 PG (27.0-31.0); MEAN CORPUSCULAR HGB CONC 34.3 G/DL (32.0-36.0); MEAN CORPUSCULAR VOLUME 93 FL (80-99); MEAN PLATELET VOLUME 8.8 FL (6.5-10.1); PLATELET COUNT 147 K/UL (150-450); RED BLOOD COUNT 3.67 M/UL (4.20-5.40); RED CELL DISTRIBUTION WIDTH 13.6 % (11.6-14.8)
[2017-05-17 06:57] LABS: WHITE BLOOD COUNT 27.2 K/UL (4.8-10.8)
[2017-05-17 07:15] LABS: BAND NEUTROPHILS % (MANUAL) 2 % (0-8); BASOPHILS % (MANUAL) 0 % (0-2); EOSINOPHILS % (MANUAL) 0 % (0-3); LYMPHOCYTES % (MANUAL) 8 % (20-45); NEUTROPHILS % (MANUAL) 88 % (45-75); PLATELET ESTIMATE DECREASED; TOTAL CELLS COUNTED 100
[2017-05-17 07:16] LABS: PLATELET MORPHOLOGY NORMAL
[2017-05-17] MEDS ORDERED: Lidocaine 1% Plain 30 ml INJ ONE (08:00)
[2017-05-17] MEDS: Docusate 100mg cap ORAL SCH ×3 (08:10→16:34)
[2017-05-17] MEDS: Sucralfate 1gm tab ORAL SCH ×4 (08:10→20:32)
--- NOTE | 2017-05-17 08:15 | Procedure Note ---
DATE OF PROCEDURE: 05/17/2017 SURGEON: Fabrizio Herrera M.D. PROCEDURE: Upper endoscopy with hemostasis. ANESTHESIA: Per Dr. Roper. INSTRUMENT: Olympus adult flexible upper endoscope. REASON FOR PROCEDURE: The procedure, risks, benefits, and possible consequences, including hemorrhage, aspiration, perforation and infection, and alternative treatments, were explained to the patient/legal guardian by Dr. Fabrizio Herrera and the patient/legal guardian understood and accepted these risks. INDICATION: Active upper gastrointestinal bleeding. HISTORY OF PRESENT ILLNESS: The patient is a 67-year-old female, who had an endoscopy done on Sunday with a large gastric polypectomy. The patient had overnight significant bleeding and I was called in at around 2 in the morning for active bleed. The patient was given a total of 4 units of blood transfusion often now and we just did an emergency endoscopy. PROCEDURE IN DETAIL: After informed consent was obtained and the patient was adequately sedated, Olympus upper endoscope was advanced from the mouth into the stomach and into the second portion of the duodenum and retroflexion was performed in the stomach. The patient had lots of blood clots seen in the proximal body of the stomach where the area of the polypectomy was performed. The polyp was in the proximal body of the stomach. After extensive washing and looking, finally we found the spot. There was actually one raised possibly a vessel at the corner of the cauterization area. This vessel was I would say medium in size. Then, we started our hemostasis procedure. First, we used a needle and knife. It was a needle injection of total of 5 mL of 1:24027 dilution epinephrine was injected around this area. Then, a total of 3 clips was used to clip this. The first clip actually was the best one that it grabbed the vessel, but still after all 3 clips there was a little bit of oozing. We flushed the area with the epinephrine flush and another 2 mL of 1:00518 dilution epinephrine was used to flush the area. At this time, we decided to terminate the procedure. SUMMARY OF FINDINGS: Active bleeding from the postpolypectomy site, status post hemostasis with 3 clips and epinephrine injection. See above for details. RECOMMENDATIONS: I spoke with the surgeon, Dr. Urbina. The patient most probably would benefit from surgical evaluation and possible control of bleeding surgically given that at this time, I do not think I 100% controlled the bleeding. Dr. Urbina is on his way to come and see the patient. Meanwhile, we are going to continue transfusing the patient to keep the hemoglobin above 7. Also, Dr. Cerna ordered fresh frozen plasma. The patient needs a central line if the current central line is not working. The patient only has a peripheral line. Dr. Urbina is on his way to see if he can also maybe put the central line. The patient is currently on low dose of Levophed pressor. The patient also needs a Protonix IV. I am not sure if it is available given there is a shortage. We will start that too if the Protonix is available. Fabrizio Herrera M.D. DR: CORTNEY JOB#: [id number] CC:
--- NOTE | 2017-05-17 08:37 | Diagnostic Imaging Report ---
Indication: Needs central IV access Technique: Procedure performed at bedside. Procedural timeout performed. Ultrasound confirms patent compressible right internal vein. Total sterile technique, including sterile probe cover and sterile gel, sterile gloves, hand hygiene, hat, mask, sterile gown, large sterile drape, and preparation with 2% chlorhexidine utilized.Local anesthesia with 1% lidocaine. Under real-time ultrasound guidance, puncture right internal jugular vein using no medial, passage 0.018 guidewire, insertion 4 Kisw[place]ili micropuncture introducer, passage 0.035 guidewire, over which was passed serial dilators and then a right transjugular central venous catheter. Completion chest radiograph obtained, demonstrating catheter tip position at the mid superior vena cava. Impression: Successful placement of right jugular central venous catheter, as described.
--- NOTE | 2017-05-17 08:49 | Pre-Procedure Note/Attestation ---
Pre-Procedure Note/Attestation Complete Prior to Procedure Planned Procedure: not applicable Procedure Narrative: replace triple lumen catheter Indications for Procedure Pre-Operative Diagnosis: malfunctioning triple lumen catheter, hypotension, gastric bleeding Attestation I attest that I discussed the nature of the procedure; its benefits; risks and complications; and alternatives (and the risks and benefits of such alternatives ), prior to the procedure, with the patient (or the patient's legal billing customer service representative). I attest that, if there was a reasonable possibility of needing a blood transfusion, the patient (or the patient's legal billing customer service representative) was given the [facility] standardized written summary, pursuant to the [employer] [place] Blood Safety Act ([place] Health and Safety Code # 1645, as amended). I attest that I re-evaluated the patient just prior to the surgery and that there has been no change in the patient's H&P, except as documented below:none LUIS ENRIQUE LOPEZ May 17, 2017 08:49
--- NOTE | 2017-05-17 08:50 | Brief Operative Note ---
Immediate Post Operative Note Operative Note Pre-op Diagnosis: malfunctioning triple lumen catheter, hypotension, gastric bleeding Procedure: replacement triple lumen catheter Post-op Diagnosis: same Surgeon: Beatriz Lopez Anesthesia: local Specimen: none Complications: none Condition: unstable Estimated Blood Loss: minimal Implant(s) used?: Yes - triple lumen catheter LUIS ENRIQUE LOPEZ May 17, 2017 08:50
[2017-05-17] MEDS ORDERED: Metoprolol 50mg tab ORAL SCH (09:00)
--- NOTE | 2017-05-17 09:09 | General Progress Note ---
Assessment/Plan Status: deteriorating Status Narrative intubated- Low BP on pressors Assessment/Plan End-stage renal disease, on hemodialysis every Sunday, Sunday, and Sunday. Last dialysis was on Friday 05/11 Current issue: Massive GI bleed 1. Type 2 diabetes. 2. Hypertension. 3. Anemia of chronic renal disease. & Vaginal bleed 4. Hypercholesterolemia. 5. Peripheral vascular disease. 6. Alzheimer's dementia. 7. ?? LUNG MASS PAST SURGICAL HISTORY: Significant for: 1. Right [id number]-kap-uglh amputation. 2. Open reduction internal fixation of the left femoral neck on 07/20/2016. Plan; HD on hold for now , reschedule 05/18 ? transfusion? Per GI - & Surg Monitor H&H - EPO Per consultants Subjective ROS Limited/Unobtainable: Yes Allergies: Coded Allergies: No Known Allergies (Unverified , 09/15/16) Objective Last 24 Hour Vital Signs Date Time Temp Pulse Resp B/P Pulse Ox O2 Delivery O2 Flow Rate FiO2 05/17/17 08:41 97 23 100 05/17/17 08:00 98.1 95 23 87/65 93 Mechanical Ventilator 100 05/17/17 08:00 91 05/17/17 08:00 100 05/17/17 07:06 96 20 100 05/17/17 07:00 95 23 83/68 93 Mechanical Ventilator 100 05/17/17 06:45 108 24 92/60 81 Mechanical Ventilator 100 05/17/17 06:30 105 24 117/70 81 Mechanical Ventilator 100 05/17/17 06:15 100 24 119/68 81 Mechanical Ventilator 100 05/17/17 06:02 109 12 05/17/17 06:00 103 24 92/63 81 Mechanical Ventilator 100 05/17/17 05:45 103 24 110/72 94 Mechanical Ventilator 100 05/17/17 05:30 103 24 112/69 93 Mechanical Ventilator 100 05/17/17 05:15 98 13 93/69 93 Mechanical Ventilator 100 05/17/17 05:09 97 12 Mechanical Ventilator 100 05/17/17 05:05 97 12 100 05/17/17 05:00 103 24 87/55 93 Nasal Cannula 2.0 05/17/17 04:57 71/52 05/17/17 04:00 104 05/17/17 04:00 95.7 104 24 71/52 96 Room Air 05/17/17 03:00 108 24 68/43 100 Nasal Cannula 2.0 05/17/17 02:09 111 26 64/47 100 Nasal Cannula 2.0 05/17/17 01:00 114 20 83/45 100 Nasal Cannula 2.0 05/17/17 00:00 97.6 118 22 78/42 96 Room Air 05/17/17 00:00 122 05/16/17 23:00 124 20 103/72 100 Room Air 05/16/17 22:00 113 17 106/55 100 Room Air 05/16/17 21:00 111 17 97/52 98 Room Air 05/16/17 20:00 109 05/16/17 20:00 98.3 109 16 112/56 100 Room Air 05/16/17 19:00 108 14 97/53 99 Room Air 05/16/17 18:00 110 16 104/47 99 Room Air 05/16/17 17:00 112 14 104/46 100 Room Air 05/16/17 16:00 111 05/16/17 16:00 98.0 118 15 129/61 100 Room Air 05/16/17 15:00 112 14 103/61 100 Room Air 05/16/17 14:00 119 17 101/56 100 Room Air 05/16/17 13:00 116 16 85/63 100 Room Air 05/16/17 12:05 97.8 121 15 83/65 100 Room Air 05/16/17 12:00 121 05/16/17 11:05 122 05/16/17 10:54 97.6 125 14 76/55 100 Room Air 05/16/17 09:18 97.9 118 20 66/49 97 Room Air Intake and Output 05/16/17 05/17/17 19:00 07:00 Intake Total 807.5 ml 1481.0 ml Output Total 900 ml Balance 807.5 ml 581.0 ml IV Total 307.5 ml 481.0 ml Blood Product 500 ml 1000 ml Stool Total 900 ml # Bowel Movements 8 3 Laboratory Tests 05/16/17 10:00: Stool Occult Blood Positive 05/16/17 10:05: Sodium Level 142, Potassium Level 5.2#H, Chloride Level 99, Carbon Dioxide Level 21, Anion Gap 22H, Blood Urea Nitrogen 78#H, Creatinine 4.5H, Estimat Glomerular Filtration Rate 11.9, Glucose Level 267#H, Calcium Level 8.8, Phosphorus Level 5.1H, Total Bilirubin 0.5, Aspartate Amino Transf (AST/SGOT) 11 , Alanine Aminotransferase (ALT/SGPT) 6, Alkaline Phosphatase 77, Pro-B-Type Natriuretic Peptide 5021H, Total Protein 4.1L, Albumin 2.6L, Globulin 1.5, Albumin/Globulin Ratio 1.7 05/16/17 10:45: White Blood Count 14.3H, Red Blood Count 2.30L, Hemoglobin 6.5*L, Hematocrit 20.7L, Mean Corpuscular Volume 90, Mean Corpuscular Hemoglobin 28.5, Mean Corpuscular Hemoglobin Concent 31.6L, Red Cell Distribution Width 15.5H, Platelet Count 328, Mean Platelet Volume 8.9, Neutrophils (%) (Auto) , Lymphocytes (%) (Auto) , Monocytes (%) (Auto) , Eosinophils (%) (Auto) , Basophils (%) (Auto) , Differential Total Cells Counted 100, Neutrophils % ( Manual) 92H, Lymphocytes % (Manual) 5L, Monocytes % (Manual) 2, Eosinophils % ( Manual) 1, Basophils % (Manual) 0, Band Neutrophils 0, Platelet Estimate Adequate, Platelet Morphology Normal, Hypochromasia 1+, Anisocytosis 1+ 05/16/17 19:50: White Blood Count 11.9H, Red Blood Count 2.69L, Hemoglobin 8.2L, Hematocrit 24.7L, Mean Corpuscular Volume 92, Mean Corpuscular Hemoglobin 30.4, Mean Corpuscular Hemoglobin Concent 33.1, Red Cell Distribution Width 13.9, Platelet Count 232, Mean Platelet Volume 9.0, Neutrophils (%) (Auto) 75.2H, Lymphocytes ( %) (Auto) 15.0L, Monocytes (%) (Auto) 8.3, Eosinophils (%) (Auto) 0.3, Basophils (%) (Auto) 1.1 05/17/17 02:00: White Blood Count 16.6H, Red Blood Count 1.45L, Hemoglobin 4.4#*L, Hematocrit 13.2#L, Mean Corpuscular Volume 92, Mean Corpuscular Hemoglobin 30.4, Mean Corpuscular Hemoglobin Concent 33.2, Red Cell Distribution Width 13.7, Platelet Count 216, Mean Platelet Volume 8.0, Neutrophils (%) (Auto) , Lymphocytes (%) ( Auto) , Monocytes (%) (Auto) , Eosinophils (%) (Auto) , Basophils (%) (Auto) , Prothrombin Time 12.7H, Prothromb Time International Ratio 1.2H, Activated Partial Thromboplast Time 27, Sodium Level 142, Potassium Level 5.3H, Chloride Level 100, Carbon Dioxide Level 18L, Anion Gap 24H, Blood Urea Nitrogen 98H, Creatinine 4.9H, Estimat Glomerular Filtration Rate 10.8, Glucose Level 341H, Uric Acid 7.4, Calcium Level 7.9L, Phosphorus Level 4.3, Magnesium Level 1.9, Total Bilirubin 0.7, Aspartate Amino Transf (AST/SGOT) 8, Alanine Aminotransferase (ALT/SGPT) < 5, Alkaline Phosphatase 48, C-Reactive Protein, Quantitative 1.7H, Pro-B-Type Natriuretic Peptide 5889H, Total Protein 3.4L, Albumin 2.1L, Globulin 1.3, Albumin/Globulin Ratio 1.6 05/17/17 06:30: White Blood Count 27.2#*H, Red Blood Count 3.67L, Hemoglobin 11.7#L, Hematocrit 34.1#L, Mean Corpuscular Volume 93, Mean Corpuscular Hemoglobin 31.9H, Mean Corpuscular Hemoglobin Concent 34.3, Red Cell Distribution Width 13.6, Platelet Count 147L, Mean Platelet Volume 8.8, Neutrophils (%) (Auto) , Lymphocytes (%) ( Auto) , Monocytes (%) (Auto) , Eosinophils (%) (Auto) , Basophils (%) (Auto) , Differential Total Cells Counted 100, Neutrophils % (Manual) 88H, Lymphocytes % (Manual) 8L, Monocytes % (Manual) 2, Eosinophils % (Manual) 0, Basophils % ( Manual) 0, Band Neutrophils 2, Platelet Estimate DecreasedL, Platelet Morphology Normal, Red Blood Cell Morphology Normal Height (Feet): 5 Height (Inches): 5.00 Weight (Pounds): 130 General Appearance: no apparent distress EENT: other - now on vent Cardiovascular: tachycardia Respiratory/Chest: decreased breath sounds Abdomen: soft Objective massive bleed from rectum TAQUERIA JACOBSON May 17, 2017 09:09
--- NOTE | 2017-05-17 10:31 | Pulmonolgy Critical Care Note ---
Critical Care - Asmt/Plan Problems: (1) Hemorrhagic shock (2) GI bleed (3) Acute encephalopathy (4) Anemia (5) ESRF (end stage renal failure) (6) Diabetes mellitus Respiratory: monitor respiratory rate, adjust FIO2, CXR Cardiac: continue to monitor HR/BP Renal: F/U I&O, check electrolytes Infectious Disease: check cultures, continue antibiotics Gastrointestinal: hold feedings Endocrine: monitor blood sugar Hematologic: transfuse if hgb<8.5, other - got 4 units or prbc already Neurologic: PRN Morphine, keep patient comfortable Prophylaxis: Protonix, SCDs Disposition: keep in ICU Notes Reviewed: cardio Discussed with: nurses Critical Care - Objective Last 24 Hour Vital Signs Date Time Temp Pulse Resp B/P Pulse Ox O2 Delivery O2 Flow Rate FiO2 05/17/17 10:00 96 21 116/70 93 Mechanical Ventilator 100 05/17/17 09:00 72/57 05/17/17 09:00 100 22 91/65 93 Mechanical Ventilator 100 05/17/17 08:41 97 23 100 05/17/17 08:00 98.1 95 23 87/65 93 Mechanical Ventilator 100 05/17/17 08:00 91 05/17/17 08:00 100 05/17/17 07:06 96 20 100 05/17/17 07:00 95 23 83/68 93 Mechanical Ventilator 100 05/17/17 06:45 108 24 92/60 81 Mechanical Ventilator 100 05/17/17 06:30 105 24 117/70 81 Mechanical Ventilator 100 05/17/17 06:15 100 24 119/68 81 Mechanical Ventilator 100 05/17/17 06:02 109 12 05/17/17 06:00 103 24 92/63 81 Mechanical Ventilator 100 05/17/17 05:45 103 24 110/72 94 Mechanical Ventilator 100 05/17/17 05:30 103 24 112/69 93 Mechanical Ventilator 100 05/17/17 05:15 98 13 93/69 93 Mechanical Ventilator 100 05/17/17 05:09 97 12 Mechanical Ventilator 100 05/17/17 05:05 97 12 100 05/17/17 05:00 103 24 87/55 93 Nasal Cannula 2.0 05/17/17 04:57 71/52 05/17/17 04:00 104 05/17/17 04:00 95.7 104 24 71/52 96 Room Air 05/17/17 03:00 108 24 68/43 100 Nasal Cannula 2.0 05/17/17 02:09 111 26 64/47 100 Nasal Cannula 2.0 05/17/17 01:00 114 20 83/45 100 Nasal Cannula 2.0 05/17/17 00:00 97.6 118 22 78/42 96 Room Air 05/17/17 00:00 122 05/16/17 23:00 124 20 103/72 100 Room Air 05/16/17 22:00 113 17 106/55 100 Room Air 05/16/17 21:00 111 17 97/52 98 Room Air 05/16/17 20:00 109 05/16/17 20:00 98.3 109 16 112/56 100 Room Air 05/16/17 19:00 108 14 97/53 99 Room Air 05/16/17 18:00 110 16 104/47 99 Room Air 05/16/17 17:00 112 14 104/46 100 Room Air 05/16/17 16:00 111 05/16/17 16:00 98.0 118 15 129/61 100 Room Air 05/16/17 15:00 112 14 103/61 100 Room Air 05/16/17 14:00 119 17 101/56 100 Room Air 05/16/17 13:00 116 16 85/63 100 Room Air 05/16/17 12:05 97.8 121 15 83/65 100 Room Air 05/16/17 12:00 121 05/16/17 11:05 122 05/16/17 10:54 97.6 125 14 76/55 100 Room Air Status: awake Condition: critical HEENT: atraumatic Lungs: clear Heart: HR/BP stable, HR/BP unstable, regular Abdomen: non-tender, active bowel sounds, feeding tube Extremities: edema Decubiti: location Accucheck: 239 Critical Care - Subjective ROS Limited/Unobtainable: No ICU Day: 2 Intubation Day: this morning Interval Events: had EGD this morning, got intubated, surgery stand by in case pt needs surgery. endoscopy will be repeated today at 11 am. FI02: 100 Vent Support Breath Rate: 12 Vent Support Mode: AC Vent Tidal Volume: 500 Sputum Amount: Moderate PEEP: 5.0 PIP: 25 I&O: Intake and Output 05/16/17 05/17/17 19:00 07:00 Intake Total 807.5 ml 1481.0 ml Output Total 900 ml Balance 807.5 ml 581.0 ml IV Total 307.5 ml 481.0 ml Blood Product 500 ml 1000 ml Stool Total 900 ml # Bowel Movements 8 3 CXR: ET tube in good position ET-Tube: 7.0 ET Position: 22 Labs: Laboratory Tests Test 05/16/17 10:45 05/16/17 19:50 05/17/17 02:00 05/17/17 06:30 White Blood Count 14.3 K/UL (4.8-10.8) H 11.9 K/UL (4.8-10.8) H 16.6 K/UL (4.8-10.8) H 27.2 K/UL (4.8-10.8) #*H Red Blood Count 2.30 M/UL (4.20-5.40) L 2.69 M/UL (4.20-5.40) L 1.45 M/UL (4.20-5.40) L 3.67 M/UL (4.20-5.40) L Hemoglobin 6.5 G/DL (12.0-16.0) *L 8.2 G/DL (12.0-16.0) L 4.4 G/DL (12.0-16.0) 11.7 G/DL (12.0-16.0) #L Hematocrit 20.7 % (37.0-47.0) L 24.7 % (37.0-47.0) L 13.2 % (37.0-47.0) #L 34.1 % (37.0-47.0) #L Mean Corpuscular Volume 90 FL (80-99) 92 FL (80-99) 92 FL (80-99) 93 FL ( 80-99) Mean Corpuscular Hemoglobin 28.5 PG (27.0-31.0) 30.4 PG (27.0-31.0) 30.4 PG (27.0-31.0) 31.9 PG (27.0-31.0) H Mean Corpuscular Hemoglobin Concent 31.6 G/DL (32.0-36.0) L 33.1 G/DL (32.0-36.0) 33.2 G/DL (32.0-36.0) 34.3 G/DL (32.0-36.0) Red Cell Distribution Width 15.5 % (11.6-14.8) H 13.9 % (11.6-14.8) 13.7 % (11.6-14.8) 13.6 % (11.6-14.8) Platelet Count 328 K/UL (150-450) 232 K/UL (150-450) 216 K/UL (150-450) 147 K/UL (150-450) L Mean Platelet Volume 8.9 FL (6.5-10.1) 9.0 FL (6.5-10.1) 8.0 FL (6.5-10.1) 8.8 FL (6.5-10.1) Neutrophils (%) (Auto) % (45.0-75.0) 75.2 % (45.0-75.0) H % (45.0-75.0) % (45.0-75.0) Lymphocytes (%) (Auto) % (20.0-45.0) 15.0 % (20.0-45.0) L % (20.0-45.0) % (20.0-45.0) Monocytes (%) (Auto) % (1.0-10.0) 8.3 % (1.0-10.0) % (1.0-10.0) % (1.0-10.0) Eosinophils (%) (Auto) % (0.0-3.0) 0.3 % (0.0-3.0) % (0.0-3.0) % (0.0-3.0) Basophils (%) (Auto) % (0.0-2.0) 1.1 % (0.0-2.0) % (0.0-2.0) % (0.0-2.0) Differential Total Cells Counted 100 100 Neutrophils % (Manual) 92 % (45-75) H 88 % (45-75) H Lymphocytes % (Manual) 5 % (20-45) L 8 % (20-45) L Monocytes % (Manual) 2 % (1-10) 2 % (1-10) Eosinophils % (Manual) 1 % (0-3) 0 % (0-3) Basophils % (Manual) 0 % (0-2) 0 % (0-2) Band Neutrophils 0 % (0-8) 2 % (0-8) Platelet Estimate Adequate Decreased L Platelet Morphology Normal Normal Hypochromasia 1+ Anisocytosis 1+ Prothrombin Time 12.7 SEC (9.30-11.50) H Prothromb Time International Ratio 1.2 (0.9-1.1) H Activated Partial Thromboplast Time 27 SEC (23-33) Sodium Level 142 mEQ/L (135-145) Potassium Level 5.3 mEQ/L (3.4-4.9) H Chloride Level 100 mEQ/L (98-107) Carbon Dioxide Level 18 mEQ/L (20-30) L Anion Gap 24 (5-15) H Blood Urea Nitrogen 98 mg/dL (7-23) H Creatinine 4.9 mg/dL (0.5-0.9) H Estimat Glomerular Filtration Rate 10.8 mL/min (>60) Glucose Level 341 mg/dL (74-106) H Uric Acid 7.4 mg/dL (3.0-7.5) Calcium Level 7.9 mg/dL (8.6-10.2) L Phosphorus Level 4.3 mg/dL (2.5-4.8) Magnesium Level 1.9 mg/dL (1.7-2.5) Total Bilirubin 0.7 mg/dL (0.0-1.2) Aspartate Amino Transf (AST/SGOT) 8 U/L (5-40) Alanine Aminotransferase (ALT/SGPT) < 5 U/L (3-33) Alkaline Phosphatase 48 U/L (35-104) C-Reactive Protein, Quantitative 1.7 mg/dL (< 0.5) H Pro-B-Type Natriuretic Peptide 5889 pg/mL (0-125) H Total Protein 3.4 g/dL (6.6-8.7) L Albumin 2.1 g/dL (3.5-5.2) L Globulin 1.3 g/dL Albumin/Globulin Ratio 1.6 (1.0-2.7) Red Blood Cell Morphology Normal Test 05/17/17 10:00 White Blood Count Pending Red Blood Count Pending Hemoglobin Pending Hematocrit Pending Mean Corpuscular Volume Pending Mean Corpuscular Hemoglobin Pending Mean Corpuscular Hemoglobin Concent Pending Red Cell Distribution Width Pending Platelet Count Pending Mean Platelet Volume Pending Neutrophils (%) (Auto) Pending Lymphocytes (%) (Auto) Pending Monocytes (%) (Auto) Pending Eosinophils (%) (Auto) Pending Basophils (%) (Auto) Pending IHSAN SILVA May 17, 2017 10:31
[2017-05-17 10:34] LABS: MEAN CORPUSCULAR HEMOGLOBIN 30.1 PG (27.0-31.0); MEAN CORPUSCULAR HGB CONC 33.1 G/DL (32.0-36.0); MEAN CORPUSCULAR VOLUME 91 FL (80-99); MEAN PLATELET VOLUME 11.6 FL (6.5-10.1); PLATELET COUNT 142 K/UL (150-450); RED BLOOD COUNT 4.41 M/UL (4.20-5.40); RED CELL DISTRIBUTION WIDTH 12.8 % (11.6-14.8)
--- NOTE | 2017-05-17 10:47 | 48 Hour Post Anesthesia Eval ---
Post Anesthesia Evaluation Procedure: egd/colonoscopy Date of Evaluation: May 17, 2017 Time of Evaluation: 10:00 Blood Pressure Systolic: 116 0: 70 Pulse Rate: 96 Respiratory Rate: 21 Temperature (Fahrenheit): 98.1 O2 Sat by Pulse Oximetry: 93 Airway: other - intubated, ventilated Nausea: No Vomiting: No Pain Intensity: 0 Hydration Status: adequate Cardiopulmonary Status: patient hemodynamically more stable. S/p severe, acute GI bleed with Hb down to 4 and BP's down to 50s/20s. Patient now intubated, arousable, s/p transfusion of 5 units PRBC and receiving FFP at this time. H/h up to . New central line placed, pressors started. Follow up CXR and ABG pending. Condition critical. Mental Status/LOC: patient returned to baseline Post-Anesthesia Complications: 0 Follow-up care needed: N/A - further care as per primary team BRAN AGUILAR M.D. May 17, 2017 10:47
[2017-05-17 11:00] LABS: ANISOCYTOSIS 1+; BAND NEUTROPHILS % (MANUAL) 0 % (0-8); BASOPHILS % (MANUAL) 0 % (0-2); EOSINOPHILS % (MANUAL) 0 % (0-3); LYMPHOCYTES % (MANUAL) 6 % (20-45); NEUTROPHILS % (MANUAL) 91 % (45-75); PLATELET ESTIMATE DECREASED; PLATELET MORPHOLOGY NORMAL; TOTAL CELLS COUNTED 100
--- NOTE | 2017-05-17 11:31 | Consultation ---
DATE OF CONSULTATION: 05/17/2017 This is the patient of Dr. Cerna. SURGEON: Yariel Urbina M.D. REASON FOR CONSULT: Gastric bleeding. PRESENT HISTORY: This 67-year-old woman had been admitted to [facility] on 05/11/2017. The patient had undergone an endoscopy by Dr. Herrera on 05/14/2017. At that time, he found a large gastric polyp, which he excised endoscopically, however, yesterday the patient began to experience severe bleeding with hematemesis with a fall in her hemoglobin and hematocrit. She was transferred to the intensive care unit earlier this morning. Dr. Herrera repeated the endoscopy and found a stomach full of blood. He found on the side of the previous biopsy site and initially was able to control the bleeding with clips, however, there was continued ooze from the site and the patient has remained unstable. He called for a surgical consultation for possible laparotomy and oversew the bleeding. The patient had received four units of blood having had a juan of her hemoglobin and hematocrit to 4.4 hemoglobin and hematocrit of 13.2. She has since been transfused earlier this morning. Her repeat hemoglobin and hematocrit shows a hemoglobin of 11.7 and hematocrit of 34.1. PAST MEDICAL HISTORY: Remarkable for end-stage renal disease, on hemodialysis 3 times a week. She has a history of dementia. She has a history of DVT and history of diabetes, status post below-knee amputation. She is presently intubated and cannot give an oral history. PHYSICAL EXAMINATION: GENERAL: Reveals a well-developed, moderately obese woman, who is awake and alert. VITAL SIGNS: Showed a blood pressure of 83/68, pulse of 95, respirations are she is on the vent, and temperature is 98.1 axillary. HEENT: Normocephalic. She is orally intubated. NECK: Supple. There is a triple-lumen catheter in the right internal jugular position that is not functioning. LUNGS: Fairly clear. HEART: Sinus rhythm. ABDOMEN: Soft. Obese. EXTREMITIES: She is status post a right [id number] amputation with well-healed stump. LABORATORY DATA: This morning show a white blood count of 27.2, hemoglobin of 11.7, hematocrit 34.1, and platelet count 147,000. Coags shows PT of 12.7 and INR of 1.2. Chemistry is sodium 149, potassium 5.3, chloride 100, bicarbonate 18, BUN is 98, creatinine 4.9, and glucose is 341. Total bilirubin 0.7. AST of 8, ALT of less than 9, and alkaline phosphatase is 48. Total protein 3.4. Albumin is 2.1. IMPRESSION: 1. Gastric bleeding, status post endoscopic biopsy. 2. Hypertension. 3. Diabetes. 4. Status post above-knee amputation, right. 5. End-stage renal failure, on hemodialysis. PLAN: At present, the patient is undergoing resuscitation. She is receiving multiple units of blood to replace what has been lost. She is on low-dose pressors. I will replace the triple-lumen catheter as patient requires the reliable line for fluids. The patient will undergo re-endoscopy in several hours by Dr. Herrera. If the bleeding is controlled, we will continue observation. If the bleeding is not controlled, the patient may require an exploratory laparotomy with gastrotomy and over-sewing of the bleeding site is described by Dr. Herrera has been nearly approximately 5 to 6 cm from the gastroesophageal junction on the posterior wall near the greater curvature. Hopefully, the patient will be able to avoid surgery and I have talked to the patient's son, Sukumar, this morning and apprise him of the patient's present condition. Yariel Urbina M.D. DR: JAK JOB#: [id number] CC: Lit Cerna M.D.; Fax#: [phone] Vieyra M.D. ; Fax#: [phone]
--- NOTE | 2017-05-17 12:43 | Pre-Procedure Note/Attestation ---
Pre-Procedure Note/Attestation Complete Prior to Procedure Planned Procedure: not applicable Procedure Narrative: egd Indications for Procedure Pre-Operative Diagnosis: active GIB Attestation I attest that I discussed the nature of the procedure; its benefits; risks and complications; and alternatives (and the risks and benefits of such alternatives ), prior to the procedure, with the patient (or the patient's legal sales representative [employer]). I attest that, if there was a reasonable possibility of needing a blood transfusion, the patient (or the patient's legal sales representative [employer]) was given the [facility] standardized written summary, pursuant to the Abdirizak Delanson Blood Safety Act ([place] Health and Safety Code # 1645, as amended). I attest that I re-evaluated the patient just prior to the surgery and that there has been no change in the patient's H&P, except as documented below: TIGRE HERNANDEZ May 17, 2017 12:43
[2017-05-17] MEDS ORDERED: Metoclopramide 10mg/2ml Inj IVP PRN (13:00)
[2017-05-17] MEDS ORDERED: Azithromycin 250 MG in D5W 275 ML IV ONE (13:00)
--- NOTE | 2017-05-17 13:07 | Endoscopy Procedure Note ---
Endoscopy Procedure Note Indication for Procedure: gib Procedures Performed: EGD Operative Findings/Diagnosis: same Specimen: none Pt Tolerated Procedure Well: Yes Estimated Blood Loss: none Anesthesiologist: kailey Anesthesia: MAC Implant(s) used?: No 50 yrs or older w/o bx or poly: Not Applicable 10yrs. F/U not recommended: Not Applicable TIGRE HERNANDEZ May 17, 2017 13:06
[2017-05-17] MEDS ORDERED: NS 550ML IV ONE (14:00)
--- NOTE | 2017-05-17 14:05 | Anethesia Preoperative Eval ---
Anesthesia Pre-op PMH/ROS General Date of Evaluation: May 17, 2017 Time of Evaluation: 14:04 Anesthesiologist: [email or web address];;opm ASA Score: ASA 4 Mallampati Score Class I : Soft palate, uvula, fauces, pillars visible Class II: Soft palate, uvula, fauces visible Class III: Soft palate, base of uvula visible Class IV: Only hard plate visible Mallampati Classification: Class III Surgeon: jenny Diagnosis: GI bleed Surgical Procedure: EGD Anesthesia History: none Family History: no anesthesia problems Allergies: Coded Allergies: No Known Allergies (Unverified , 09/15/16) Medications: see eMAR Past Medical History Cardiovascular: Reports: HTN Pulmonary: Reports: other - mechanically ventilated via ETT Gastrointestinal/Genitourinary: Reports: CRI, ESRD, GERD Neurologic/Psychiatric: Reports: dementia Endocrine: Reports: DM HEENT: Denies: [place] (L), [place] (R), cataract (L), cataract (R), glaucoma, other Hematology/Immune: Reports: DVT, anemia, other - hemorragic shock with pressors Musculoskeletal/Integumentary: Denies: DDD, DJD, OA, RA, edema, other PMH Narrative: s/p intubation and control of bleeding early am PSxH Narrative: unable to determine Anesthesia Pre-op Phys. Exam Physician Exam Last Vital Signs Date Time Temp Pulse Resp B/P Pulse Ox O2 Delivery O2 Flow Rate FiO2 05/17/17 13:07 106 23 100 05/17/17 13:00 90/73 93 Mechanical Ventilator 05/17/17 12:00 98.0 05/17/17 05:00 2.0 Constitutional: other - emergently intubated this am by dr burgos Neurologic: other - obtunded/intubated Cardiovascular: RRR Respiratory: other - mechanically ventilated 100% ac 12 600 Airway Exam Mallampati Score: Class III MO: limited ROM: limited Dentures: no lower, no upper Anesthesia Pre-op A/P Labs Hematology Test 05/16/17 19:50 05/17/17 02:00 05/17/17 06:30 05/17/17 10:00 White Blood Count 11.9 K/UL (4.8-10.8) H 16.6 K/UL (4.8-10.8) H 27.2 K/UL (4.8-10.8) #*H 27.0 K/UL (4.8-10.8) *H Red Blood Count 2.69 M/UL (4.20-5.40) L 1.45 M/UL (4.20-5.40) L 3.67 M/UL (4.20-5.40) L 4.41 M/UL (4.20-5.40) Hemoglobin 8.2 G/DL (12.0-16.0) L 4.4 G/DL (12.0-16.0) 11.7 G/DL (12.0-16.0) #L 13.2 G/DL (12.0-16.0) Hematocrit 24.7 % (37.0-47.0) L 13.2 % (37.0-47.0) #L 34.1 % (37.0-47.0) #L 40.0 % (37.0-47.0) Mean Corpuscular Volume 92 FL (80-99) 92 FL (80-99) 93 FL (80-99) 91 FL ( 80-99) Mean Corpuscular Hemoglobin 30.4 PG (27.0-31.0) 30.4 PG (27.0-31.0) 31.9 PG (27.0-31.0) H 30.1 PG (27.0-31.0) Mean Corpuscular Hemoglobin Concent 33.1 G/DL (32.0-36.0) 33.2 G/DL (32.0-36.0) 34.3 G/DL (32.0-36.0) 33.1 G/DL (32.0-36.0) Red Cell Distribution Width 13.9 % (11.6-14.8) 13.7 % (11.6-14.8) 13.6 % (11.6-14.8) 12.8 % (11.6-14.8) Platelet Count 232 K/UL (150-450) 216 K/UL (150-450) 147 K/UL (150-450) L 142 K/UL (150-450) L Mean Platelet Volume 9.0 FL (6.5-10.1) 8.0 FL (6.5-10.1) 8.8 FL (6.5-10.1) 11.6 FL (6.5-10.1) H Neutrophils (%) (Auto) 75.2 % (45.0-75.0) H % (45.0-75.0) % (45.0-75.0) % (45.0-75.0) Lymphocytes (%) (Auto) 15.0 % (20.0-45.0) L % (20.0-45.0) % (20.0-45.0) % (20.0-45.0) Monocytes (%) (Auto) 8.3 % (1.0-10.0) % (1.0-10.0) % (1.0-10.0) % (1.0-10.0) Eosinophils (%) (Auto) 0.3 % (0.0-3.0) % (0.0-3.0) % (0.0-3.0) % (0.0-3.0) Basophils (%) (Auto) 1.1 % (0.0-2.0) % (0.0-2.0) % (0.0-2.0) % (0.0-2.0) Differential Total Cells Counted 100 100 Neutrophils % (Manual) 88 % (45-75) H 91 % (45-75) H Lymphocytes % (Manual) 8 % (20-45) L 6 % (20-45) L Monocytes % (Manual) 2 % (1-10) 3 % (1-10) Eosinophils % (Manual) 0 % (0-3) 0 % (0-3) Basophils % (Manual) 0 % (0-2) 0 % (0-2) Band Neutrophils 2 % (0-8) 0 % (0-8) Platelet Estimate Decreased L Decreased L Platelet Morphology Normal Normal Red Blood Cell Morphology Normal Normal Anisocytosis 1+ Coagulation Test 05/17/17 02:00 Prothrombin Time 12.7 SEC (9.30-11.50) H Prothromb Time International Ratio 1.2 (0.9-1.1) H Activated Partial Thromboplast Time 27 SEC (23-33) Chemistry Test 05/17/17 02:00 Sodium Level 142 mEQ/L (135-145) Potassium Level 5.3 mEQ/L (3.4-4.9) H Chloride Level 100 mEQ/L (98-107) Carbon Dioxide Level 18 mEQ/L (20-30) L Anion Gap 24 (5-15) H Blood Urea Nitrogen 98 mg/dL (7-23) H Creatinine 4.9 mg/dL (0.5-0.9) H Estimat Glomerular Filtration Rate 10.8 mL/min (>60) Glucose Level 341 mg/dL (74-106) H Uric Acid 7.4 mg/dL (3.0-7.5) Calcium Level 7.9 mg/dL (8.6-10.2) L Phosphorus Level 4.3 mg/dL (2.5-4.8) Magnesium Level 1.9 mg/dL (1.7-2.5) Total Bilirubin 0.7 mg/dL (0.0-1.2) Aspartate Amino Transf (AST/SGOT) 8 U/L (5-40) Alanine Aminotransferase (ALT/SGPT) < 5 U/L (3-33) Alkaline Phosphatase 48 U/L (35-104) C-Reactive Protein, Quantitative 1.7 mg/dL (< 0.5) H Pro-B-Type Natriuretic Peptide 5889 pg/mL (0-125) H Total Protein 3.4 g/dL (6.6-8.7) L Albumin 2.1 g/dL (3.5-5.2) L Globulin 1.3 g/dL Albumin/Globulin Ratio 1.6 (1.0-2.7) Studies Pre-op Studies: EKG - sr Risk Assessment & Plan Plan: MAC Status Change Before Surgery: No Pre-Antibiotics Drug: NONE YANETH WOODS CRNA May 17, 2017 14:05
--- NOTE | 2017-05-17 14:15 | Operative Note - Dictated ---
DATE OF OPERATION: 05/17/2017 SURGEON: Yariel Urbina M.D. PREOPERATIVE DIAGNOSES: 1. Malfunctioning triple-lumen catheter. 2. Gastric bleeding. 3. Hypotension. POSTOPERATIVE DIAGNOSES: 1. Malfunctioning triple-lumen catheter. 2. Gastric bleeding. 3. Hypotension. PROCEDURE: Replacement triple-lumen catheter. INDICATION: This very ill 67-year-old woman is several days status post endoscopic excision of a gastric polyp. The patient began to have severe bleeding from this site last night. The patient underwent emergency endoscopy last night and underwent clipping of the vessels. She may still be bleeding. She has been resuscitated. She had a triple-lumen catheter placed yesterday by the radiologist, but it is not working. The patient requires a reliable triple-lumen catheter for fluids. PROCEDURE IN DETAIL: The patient was identified and placed in supine position. The right chest was prepped and draped in a sterile manner. Local infiltration with 3 mL of 1% lidocaine. The right subclavian vein was cannulated with a hollow needle through which was passed a guidewire needle and removed. The aperture was enlarged. Dilator was passed over the guidewire and then removed. The triple-lumen catheter, which had been previously irrigated with saline was passed through the guidewire into the same situation and the guidewire removed. All three ports were checked for leaks and bidirectional flow, irrigated with heparinized saline and capped. After, we sutured the skin with interrupted 3-0 silk sutures and covered with dry sterile dressing. Blood loss for the entire procedure was less than 2 mL. The patient tolerated the procedure well. Chest x-ray confirmed correct position. Yariel Urbina M.D. DR: JOSE JOB#: [id number] CC:
--- NOTE | 2017-05-17 14:28 | Endoscopy Procedure Note ---
Endoscopy Procedure Note Indication for Procedure: gib Procedures Performed: EGD Operative Findings/Diagnosis: gib Specimen: none Pt Tolerated Procedure Well: Yes Estimated Blood Loss: none Anesthesiologist: dari Anesthesia: MAC Implant(s) used?: No 50 yrs or older w/o bx or poly: Not Applicable 10yrs. F/U not recommended: Not Applicable TIGRE HERNANDEZ May 17, 2017 14:28
--- NOTE | 2017-05-17 14:33 | Immediate Post-Op Evaluation ---
Immediate Post-Op Evalulation Immediate Post-Op Evalulation Procedure: egd/colonoscopy Date of Evaluation: May 17, 2017 Time of Evaluation: 14:20 IV Fluids: 100 Blood Pressure Systolic: 112 Blood Pressure Diastolic: 65 Pulse Rate: 70 Respiratory Rate: 14 O2 Sat by Pulse Oximetry: 100 Temperature (Fahrenheit): 97.1 Nausea: No Vomiting: No Complications none Patient Status: ventilated Hydration Status: adequate Drug: none YANETH WOODS CRNA May 17, 2017 14:33
--- NOTE | 2017-05-17 14:34 | 48 Hour Post Anesthesia Eval ---
Post Anesthesia Evaluation Procedure: EGD Date of Evaluation: May 17, 2017 Time of Evaluation: 14:34 Blood Pressure Systolic: 114 0: 70 Pulse Rate: 100 Respiratory Rate: 12 O2 Sat by Pulse Oximetry: 100 Airway: other - mechanically ventilated Nausea: No Hydration Status: other - receiving ffp Cardiopulmonary Status: stable Mental Status/LOC: patient returned to baseline Post-Anesthesia Complications: none Follow-up care needed: N/A YANETH WOODS CRNA May 17, 2017 14:34
--- NOTE | 2017-05-17 14:39 | Diagnostic Imaging Report ---
Indication: Status post intubation and central line placement Technique: One view of the chest Comparison: 05/11/2017 Findings: Interim placement right subclavian central venous catheter, tip which projects at level the cavoatrial junction. No pneumothorax demonstrated. Interim endotracheal intubation, endotracheal tube tip projecting approximately 4 cm above the denise. Basilar left hemidiaphragm is surgically documented the intragastric. There is suboptimal inspiration, with crowding of the bronchovascular markings in the left hilum. There may be mild interstitial congestion as well, however. No focal airspace consolidation. No effusions. Impression: Satisfactory subclavian central venous catheter placement. No radiographically evident complication Satisfactory nasogastric intubation Stable lungs, with prominent interstitial markings on the left.
[2017-05-17 16:06] LABS: ABG ALLEN TEST POSITIVE; ABG BASE EXCESS -6.3; ABG PCO2 31.1 mmHg (35.0-45.0)
--- NOTE | 2017-05-17 16:16 | Procedure Note ---
DATE OF PROCEDURE: 05/17/2017 SURGEON: Farbizio Herrera M.D. PROCEDURE: Upper endoscopy. ANESTHESIOLOGIST: Sulma SMITH INSTRUMENT: Olympus adult flexible upper endoscope. INDICATION: Second look for severe upper gastrointestinal bleeding. REASON FOR PROCEDURE: The procedure, risks, benefits, and possible consequences, including hemorrhage, aspiration, perforation and infection, and alternative treatments, were explained to the patient/legal guardian by Dr. Fabrizio Herrera and the patient/legal guardian understood and accepted these risks. DESCRIPTION OF PROCEDURE: After informed consent was obtained and the patient was adequately sedated, the Olympus upper endoscope was advanced from mouth into the second portion of the duodenum and retroflexion was performed in the stomach. The patient had lot of blood clots seen in the stomach but there is no active bleeding. At this time, we were able to find area of the clipping this morning. There were three clips still in place, we washed this area three times with water. There was no oozing at this time and seen that the clips are holding the ulcer at this time so no further extra hemostasis was performed at this time. The patient tolerate the procedure well without any complications. Fabrizio Herrera M.D. DR: Immanuel JOB#: [id number] CC:
[2017-05-17] MEDS: Zosyn 2.25 gm in D5W 55ml IV SCH ×2 (16:34→21:07)
[2017-05-17] MEDS: NovoLOG Insulin Flexpen SUBQ SCH ×2 (18:33→23:43)
--- NOTE | 2017-05-17 22:14 | Infectious Diseases Prog Note ---
Assessment/Plan Assessment/Plan ASSESSMENT: 67-year-old female with: // Hx of C.difficile // hx of UTI - UCx <10K ESBL(+) E.coli SP Rx - h/o VSE.faecalis // Lt heel decubitus not grossly infected // leukocytosis post procedure, and 2/2 bleeding // HypotTN 2/2 to bleeding // GI bleed and FOBT+ anemia SP PRBCs - SP EGD/colonoscopy 05/14: Multiple gastric polyps; Gastritis; Internal hemorrhoids; Diverticulosis. // Hx of Vaginal bleed, possible endometrial CA - US: thickened endometrium and 8.5 cm complex left adnexal mass. // ESRD / HD // Advanced dementia // Acute and chronic BLE DVTs // DM2 - HbA1c 6.7% // PVD SP right AKA // [facility] resident // MRSA colonized // NKDA // Full Code PLAN: - cont IV Zosyn for now d# 2 ( 01/03 SP amikacin d# 4, zosyn d# 3 ) ( 01/02 SP IV vancomycin d# 3 ) - monitor CBC, temperatures - monitor BMP. - monitor CXR - wound care - f/u path Subjective Constitutional: Denies: anorexia, chills, drenching sweats, fatigue, fever, no symptoms, other Allergies: Coded Allergies: No Known Allergies (Unverified , 09/15/16) Subjective transferred to ICU t2/2 HYpoTN Objective Vital Signs Last 24 Hour Vital Signs Date Time Temp Pulse Resp B/P Pulse Ox O2 Delivery O2 Flow Rate FiO2 05/17/17 19:15 99 Room Air 05/17/17 19:15 Room Air 05/17/17 19:00 109 18 104/53 93 Room Air 05/17/17 18:00 108 18 90/47 93 Non-Rebreather 15.0 100 05/17/17 17:00 103 18 140/47 93 Non-Rebreather 15.0 100 05/17/17 16:19 Non-Rebreather 15.0 100 05/17/17 16:00 98 05/17/17 16:00 97.9 101 19 135/45 93 Mechanical Ventilator 100 05/17/17 16:00 100 05/17/17 15:15 88 16 100 05/17/17 15:00 86 18 109/55 93 Mechanical Ventilator 100 05/17/17 14:34 100 12 100 05/17/17 14:33 70 14 100 05/17/17 14:17 Nasal Cannula 2.0 05/17/17 14:16 96 Nasal Cannula 2.0 05/17/17 14:00 104 19 117/59 93 Mechanical Ventilator 100 05/17/17 13:07 106 23 100 05/17/17 13:00 96 20 90/73 93 Mechanical Ventilator 100 05/17/17 13:00 89/60 05/17/17 12:25 94 05/17/17 12:00 100 05/17/17 12:00 121/76 05/17/17 12:00 98.0 101 21 99/55 94 Mechanical Ventilator 100 05/17/17 11:00 85/54 05/17/17 11:00 99 22 100/54 93 Mechanical Ventilator 100 05/17/17 10:47 96 21 93 05/17/17 10:00 96 21 116/70 93 Mechanical Ventilator 100 05/17/17 10:00 99/65 05/17/17 09:00 72/57 05/17/17 09:00 100 22 91/65 93 Mechanical Ventilator 100 05/17/17 08:41 97 23 100 05/17/17 08:00 98.1 95 23 87/65 93 Mechanical Ventilator 100 05/17/17 08:00 91 05/17/17 08:00 100 05/17/17 07:06 96 20 100 05/17/17 07:00 95 23 83/68 93 Mechanical Ventilator 100 05/17/17 06:45 108 24 92/60 81 Mechanical Ventilator 100 05/17/17 06:30 105 24 117/70 81 Mechanical Ventilator 100 05/17/17 06:15 100 24 119/68 81 Mechanical Ventilator 100 05/17/17 06:02 109 12 05/17/17 06:00 103 24 92/63 81 Mechanical Ventilator 100 05/17/17 05:45 103 24 110/72 94 Mechanical Ventilator 100 05/17/17 05:30 103 24 112/69 93 Mechanical Ventilator 100 05/17/17 05:15 98 13 93/69 93 Mechanical Ventilator 100 05/17/17 05:09 97 12 Mechanical Ventilator 100 05/17/17 05:05 97 12 100 05/17/17 05:00 103 24 87/55 93 Nasal Cannula 2.0 05/17/17 04:57 71/52 05/17/17 04:00 104 05/17/17 04:00 95.7 104 24 71/52 96 Room Air 05/17/17 03:00 108 24 68/43 100 Nasal Cannula 2.0 05/17/17 02:09 111 26 64/47 100 Nasal Cannula 2.0 05/17/17 01:00 114 20 83/45 100 Nasal Cannula 2.0 05/17/17 00:00 97.6 118 22 78/42 96 Room Air 05/17/17 00:00 122 05/16/17 23:00 124 20 103/72 100 Room Air Height (Feet): 5 Height (Inches): 5.00 Weight (Pounds): 130 HEENT: anicteric Respiratory/Chest: normal breath sounds Cardiovascular: normal rate Abdomen: soft, non tender Skin: no rash Laboratory Tests Test 05/17/17 02:00 05/17/17 06:30 05/17/17 10:00 05/17/17 15:50 White Blood Count 16.6 K/UL (4.8-10.8) H 27.2 K/UL (4.8-10.8) #*H 27.0 K/UL (4.8-10.8) *H Red Blood Count 1.45 M/UL (4.20-5.40) L 3.67 M/UL (4.20-5.40) L 4.41 M/UL (4.20-5.40) Hemoglobin 4.4 G/DL (12.0-16.0) 11.7 G/DL (12.0-16.0) #L 13.2 G/DL (12.0-16.0) Hematocrit 13.2 % (37.0-47.0) #L 34.1 % (37.0-47.0) #L 40.0 % (37.0-47.0) Mean Corpuscular Volume 92 FL (80-99) 93 FL (80-99) 91 FL (80-99) Mean Corpuscular Hemoglobin 30.4 PG (27.0-31.0) 31.9 PG (27.0-31.0) H 30.1 PG (27.0-31.0) Mean Corpuscular Hemoglobin Concent 33.2 G/DL (32.0-36.0) 34.3 G/DL (32.0-36.0) 33.1 G/DL (32.0-36.0) Red Cell Distribution Width 13.7 % (11.6-14.8) 13.6 % (11.6-14.8) 12.8 % (11.6-14.8) Platelet Count 216 K/UL (150-450) 147 K/UL (150-450) L 142 K/UL (150-450) L Mean Platelet Volume 8.0 FL (6.5-10.1) 8.8 FL (6.5-10.1) 11.6 FL (6.5-10.1) H Neutrophils (%) (Auto) % (45.0-75.0) % (45.0-75.0) % (45.0-75.0) Lymphocytes (%) (Auto) % (20.0-45.0) % (20.0-45.0) % (20.0-45.0) Monocytes (%) (Auto) % (1.0-10.0) % (1.0-10.0) % (1.0-10.0) Eosinophils (%) (Auto) % (0.0-3.0) % (0.0-3.0) % (0.0-3.0) Basophils (%) (Auto) % (0.0-2.0) % (0.0-2.0) % (0.0-2.0) Prothrombin Time 12.7 SEC (9.30-11.50) H Prothromb Time International Ratio 1.2 (0.9-1.1) H Activated Partial Thromboplast Time 27 SEC (23-33) Sodium Level 142 mEQ/L (135-145) Potassium Level 5.3 mEQ/L (3.4-4.9) H Chloride Level 100 mEQ/L (98-107) Carbon Dioxide Level 18 mEQ/L (20-30) L Anion Gap 24 (5-15) H Blood Urea Nitrogen 98 mg/dL (7-23) H Creatinine 4.9 mg/dL (0.5-0.9) H Estimat Glomerular Filtration Rate 10.8 mL/min (>60) Glucose Level 341 mg/dL (74-106) H Uric Acid 7.4 mg/dL (3.0-7.5) Calcium Level 7.9 mg/dL (8.6-10.2) L Phosphorus Level 4.3 mg/dL (2.5-4.8) Magnesium Level 1.9 mg/dL (1.7-2.5) Total Bilirubin 0.7 mg/dL (0.0-1.2) Aspartate Amino Transf (AST/SGOT) 8 U/L (5-40) Alanine Aminotransferase (ALT/SGPT) < 5 U/L (3-33) Alkaline Phosphatase 48 U/L (35-104) C-Reactive Protein, Quantitative 1.7 mg/dL (< 0.5) H Pro-B-Type Natriuretic Peptide 5889 pg/mL (0-125) H Total Protein 3.4 g/dL (6.6-8.7) L Albumin 2.1 g/dL (3.5-5.2) L Globulin 1.3 g/dL Albumin/Globulin Ratio 1.6 (1.0-2.7) Differential Total Cells Counted 100 100 Neutrophils % (Manual) 88 % (45-75) H 91 % (45-75) H Lymphocytes % (Manual) 8 % (20-45) L 6 % (20-45) L Monocytes % (Manual) 2 % (1-10) 3 % (1-10) Eosinophils % (Manual) 0 % (0-3) 0 % (0-3) Basophils % (Manual) 0 % (0-2) 0 % (0-2) Band Neutrophils 2 % (0-8) 0 % (0-8) Platelet Estimate Decreased L Decreased L Platelet Morphology Normal Normal Red Blood Cell Morphology Normal Normal Anisocytosis 1+ Arterial Blood pH 7.370 (7.350-7.450) Arterial Blood Partial Pressure CO2 31.1 mmHg (35.0-45.0) L Arterial Blood Partial Pressure O2 442.8 mmHg (75.0-100.0) H Arterial Blood HCO3 17.9 mmol/L (22.0-26.0) L Arterial Blood Oxygen Saturation 99.1 % (92.0-98.0) H Arterial Blood Base Excess -6.3 Gilberto Test Positive Current Medications Medications (Trade) Dose Ordered Sig/Althea Route PRN Reason Start Time Stop Time Status Last Admin Dose Admin Acetaminophen (Tylenol) 650 mg Q4H PRN ORAL fever 05/16/17 11:15 06/15/17 11:14 Dextrose (Dextrose 50%) STAT PRN IV Hypoglycemia 05/16/17 16:30 06/15/17 16:29 Docusate Sodium (Colace) 100 mg THREE TIMES A DAY ORAL 05/16/17 13:00 06/15/17 12:59 Epinephrine/ Dextrose (EPINEPHrine 1mg/ml Amp/D5W) 250 ml @ 0 mls/hr Q24H IV 05/17/17 06:00 06/16/17 05:59 05/17/17 06:01 Epoetin Romeo (Procrit (for ESRD on dialysis)) 10,000 units SUN-SUN-SUN SUBQ 05/16/17 21:00 06/15/17 20:59 05/16/17 21:24 Insulin Aspart (NovoLOG) Q6HR SUBQ 05/17/17 18:00 06/16/17 17:59 05/17/17 18:33 Metoclopramide HCl 10 mg 10 mg Q6H PRN IVP Nausea & Vomiting 05/17/17 13:00 06/16/17 12:59 05/17/17 13:09 Morphine Sulfate (Morphine Sulfate) 1 mg Q4H PRN IVP For Pain 4-10 05/16/17 12:00 05/23/17 11:59 Norepinephrine Bitartrate 4 mg/ Dextrose 250 ml @ 0 mls/hr Q24H IV 05/17/17 04:30 06/16/17 04:29 05/17/17 04:57 Ondansetron HCl (Zofran) 4 mg Q6H PRN IVP Nausea & Vomiting 05/16/17 16:00 06/15/17 15:59 Pantoprazole 80 mg/Sodium Chloride 250 ml @ 25 mls/hr Q10H IV 05/16/17 13:30 06/15/17 13:29 05/17/17 19:47 Piperacillin Sod/ Tazobactam Sod/ Dextrose (Zosyn/D5W) 55 ml @ 110 mls/hr Q8HR IV 05/17/17 15:00 05/24/17 14:59 05/17/17 21:07 Polyethylene Glycol (Miralax) 17 gm HSPRN PRN ORAL Constipation 05/16/17 19:15 06/15/17 19:14 Quetiapine Fumarate (SEROquel) 12.5 mg BID ORAL 05/16/17 18:00 06/15/17 17:59 05/16/17 18:03 Sevelamer Carbonate (Renvela) 800 mg THREE TIMES A DAY ORAL 05/16/17 13:00 06/15/17 12:59 05/16/17 18:03 Sucralfate 1 gm 1 gm FOUR TIMES A DAY ORAL 05/16/17 13:00 06/15/17 12:59 05/16/17 21:24 NANCY QUICK M.D. May 17, 2017 22:14
[2017-05-18] VITALS (22 sets, daily range): BP systolic 95–135; BP diastolic 46–62
[2017-05-18] MEDS: Pantoprazole 80 MG in NS 250ml IV SCH ×2 (05:27→16:09)
[2017-05-18] MEDS: EPINEPHrine 1mg/1ml Amp 1 MG in D5W 249 ML IV SCH (05:27)
[2017-05-18] MEDS: Zosyn 2.25 gm in D5W 55ml IV SCH ×2 (05:44→13:32)
[2017-05-18 05:54] LABS: ALBUMIN/GLOBULIN RATIO 1.3 (1.0-2.7); CALCIUM 8.8 mg/dL (8.6-10.2); CREATININE 5.1 mg/dL (0.5-0.9); CRP QUANT 2.2 mg/dL (< 0.5); GLOMERULAR FILTRATION RATE 10.3 mL/min (>60); POTASSIUM 4.3 mEQ/L (3.4-4.9); TOTAL PROTEIN 4.7 g/dL (6.6-8.7); URIC ACID 8.9 mg/dL (3.0-7.5)
[2017-05-18] MEDS: NovoLOG Insulin Flexpen SUBQ SCH ×3 (06:16→18:00)
--- NOTE | 2017-05-18 07:15 | Pulmonolgy Critical Care Note ---
Critical Care - Asmt/Plan Assessment/Plan: ASSESSMENT hemorrhagic shock GI bleeding acute toxic metabolic encephalopathy on chronic advanced dementia ( due to shock ) acute respiratory failure requiring intubation anemia of chronic renal disease acute anemia 2 to GI bleeding s/p blood transfusion ESRD, on HD DM PVD s/p R AKA acute DVT R SFV hx of vaginal bleeding PLAN OF CARE self extubated off pressors BP stable now awake, alert, pulse ox stable on RA stool OB + x 2 GI follows monitor HH, transfuse prn to keep Hgb above 7, s/p blood transfusion of PRBC and FFP HH trending down s/p EGD and colon 05/14 with evidence of multiple gastric polyps, gastritis, colonoscopy with findings of internal hemorrhoids and diverticulosis s/p another EGD 05/16 + active bleeding from postpolypectomy site, s/p hemostasis and clip surgery follows for possible surgical intervention if bleeding not controlled on EPO nephro follows HD as per nephro monitor renal parameters , lytes empiric abx, ID follows Venous Duplex + acute DVT R SFV IVC filter placement today BS management with SS of insulin, HgbA1c -6.7 pain management hx of vaginal bleeding, prior US with thickened endometrium and complex left adnexal mass) transfer to [facility] case discussed and evaluated by supervising physician Critical Care - Objective Last 24 Hour Vital Signs Date Time Temp Pulse Resp B/P Pulse Ox O2 Delivery O2 Flow Rate FiO2 05/18/17 06:22 87 18 130/57 100 Room Air 05/18/17 06:00 87 18 130/57 100 Room Air 05/18/17 05:00 97.8 96 18 122/57 100 Room Air 05/18/17 04:00 100 05/18/17 04:00 97.8 97 17 104/53 100 Room Air 05/18/17 03:20 114/51 05/18/17 03:00 99 16 114/51 100 Room Air 05/18/17 02:00 100 17 113/52 98 Room Air 05/18/17 01:00 103 19 99/46 98 Room Air 05/18/17 00:00 107 22 95/51 98 Room Air 05/18/17 00:00 106 05/17/17 23:00 107 22 128/57 98 Room Air 05/17/17 22:00 104 24 135/57 98 Room Air 05/17/17 21:00 107 16 106/52 98 Room Air 05/17/17 20:00 97.8 102 18 100/39 93 Room Air 05/17/17 20:00 98 05/17/17 19:15 99 Room Air 05/17/17 19:15 Room Air 05/17/17 19:00 109 18 104/53 93 Room Air 05/17/17 18:00 108 18 90/47 93 Non-Rebreather 15.0 100 05/17/17 17:00 103 18 140/47 93 Non-Rebreather 15.0 100 05/17/17 16:19 Non-Rebreather 15.0 100 05/17/17 16:00 98 05/17/17 16:00 97.9 101 19 135/45 93 Mechanical Ventilator 100 05/17/17 16:00 100 05/17/17 15:15 88 16 100 05/17/17 15:00 86 18 109/55 93 Mechanical Ventilator 100 05/17/17 14:34 100 12 100 05/17/17 14:33 70 14 100 05/17/17 14:17 Nasal Cannula 2.0 05/17/17 14:16 96 Nasal Cannula 2.0 05/17/17 14:00 104 19 117/59 93 Mechanical Ventilator 100 05/17/17 13:07 106 23 100 05/17/17 13:00 96 20 90/73 93 Mechanical Ventilator 100 05/17/17 13:00 89/60 05/17/17 12:25 94 05/17/17 12:00 100 05/17/17 12:00 121/76 05/17/17 12:00 98.0 101 21 99/55 94 Mechanical Ventilator 100 05/17/17 11:00 85/54 05/17/17 11:00 99 22 100/54 93 Mechanical Ventilator 100 05/17/17 10:47 96 21 93 05/17/17 10:00 96 21 116/70 93 Mechanical Ventilator 100 05/17/17 10:00 99/65 05/17/17 09:00 72/57 05/17/17 09:00 100 22 91/65 93 Mechanical Ventilator 100 05/17/17 08:41 97 23 100 05/17/17 08:00 98.1 95 23 87/65 93 Mechanical Ventilator 100 05/17/17 08:00 91 05/17/17 08:00 100 Status: awake, other - aphasic Condition: improving HEENT: atraumatic Lungs: clear Heart: HR/BP stable, other - CL R subclavian Abdomen: soft, non-tender Extremities: other - R AKA Micro: Microbiology Date/Time Source Procedure Growth Status 05/16/17 12:15 Blood Blood Culture - Preliminary NO GROWTH AFTER 24 HOURS Resulted 05/16/17 12:00 Blood Blood Culture - Preliminary NO GROWTH AFTER 24 HOURS Resulted Accucheck: 170 Critical Care - Subjective ROS Limited/Unobtainable: Yes Interval Events: off pressors leukocytosis trending down , afebrile HH down to 9.3/26.6 self extubated yesterday pulse oximetry remains stable on RA Condition: critical IV Access: central - R jugular EKG Rhythm: Sinus Rhythm Sputum Amount: Moderate PEEP: 5.0 PIP: 16 I&O: Intake and Output 05/17/17 05/18/17 19:00 07:00 Intake Total 1486.0 ml 250 ml Balance 1486.0 ml 250 ml IV Total 736.0 ml 250 ml Blood Product 750 ml # Bowel Movements 6 5 CXR: 05/17 Satisfactory subclavian central venous catheter placement. No radiographically evident complication Satisfactory nasogastric intubation Stable lungs, with prominent interstitial markings on the left. Kaia Gonzalez NP ([facility]) May 18, 2017 07:15
--- NOTE | 2017-05-18 08:24 | Diagnostic Imaging Report ---
Indication: DYSPNEA air in the left hemidiaphragm on prior chest radiograph, intragastric versus intraperitoneal Technique: Decubitus view of the abdomen Comparison: Reference made to chest radiograph of 3 hours earlier, abdomen radiograph of 05/11/2017 Findings: Previously demonstrated left upper quadrant gas collection is demonstrated on multiple images to the intragastric. Mildly dilated gas-filled small bowel loops, with some air-fluid levels are noted. This is probably related to air insufflation from prior endoscopy. Right lower quadrant and epigastric bullets again demonstrated. Left hip hardware, bilateral iliac arterial stents are demonstrated. Impression: No evidence of pneumoperitoneum. Previously demonstrated subdiaphragmatic gas was intragastric Mildly dilated gas-filled small bowel loops, suspect related to air insufflation from recent endoscopy
[2017-05-18] MEDS: Docusate 100mg cap ORAL SCH ×3 (09:00→18:00)
[2017-05-18 09:24] LABS: ABG PCO2 30.8 mmHg (35.0-45.0)
[2017-05-18 09:25] LABS: ABG ALLEN TEST POSITIVE
[2017-05-18 09:36] LABS: BASOPHILS % (AUTO) 0.7 % (0.0-2.0); EOSINOPHILS % (AUTO) 0.9 % (0.0-3.0); LYMPHOCYTES % (AUTO) 8.9 % (20.0-45.0); MEAN CORPUSCULAR HEMOGLOBIN 30.6 PG (27.0-31.0); MEAN CORPUSCULAR VOLUME 90 FL (80-99); MEAN PLATELET VOLUME 9.8 FL (6.5-10.1); MONOCYTES % (AUTO) 4.9 % (1.0-10.0); NEUTROPHILS % (AUTO) 84.7 % (45.0-75.0); PLATELET COUNT 168 K/UL (150-450); RED BLOOD COUNT 3.08 M/UL (4.20-5.40); RED CELL DISTRIBUTION WIDTH 13.5 % (11.6-14.8); WHITE BLOOD COUNT 15.3 K/UL (4.8-10.8)
[2017-05-18 09:48] LABS: INR 1.1 (0.9-1.1)
[2017-05-18] MEDS: Sucralfate 1gm tab ORAL SCH ×4 (10:08→21:26)
--- NOTE | 2017-05-18 11:40 | Diagnostic Imaging Report ---
Indication: DYSPNEA Technique: One view of the chest Comparison: 05/17/2017 Findings: Interim endotracheal extubation. There is persistent atelectasis at the left lung base. Previously demonstrated gastric gaseous distention has resolved. Right lung and pleural space remain clear. Previously demonstrated right subclavian central venous catheter remains. Impression: Interim extubation Otherwise, little significant tissue recovery technician one day
--- NOTE | 2017-05-18 12:04 | Infectious Diseases Prog Note ---
Assessment/Plan Assessment/Plan ASSESSMENT: 67-year-old female with: // Hx of C.difficile // hx of UTI - UCx <10K ESBL(+) E.coli SP Rx - h/o VSE.faecalis // Lt heel decubitus not grossly infected // leukocytosis post procedure, and 2/2 bleeding improving // HypotTN 2/2 to bleeding // GI bleed and FOBT+ anemia SP PRBCs - SP EGD/colonoscopy 05/14: Multiple gastric polyps; Gastritis; Internal hemorrhoids; Diverticulosis. // Hx of Vaginal bleed, possible endometrial CA - US: thickened endometrium and 8.5 cm complex left adnexal mass. // ESRD / HD // Advanced dementia // Acute and chronic BLE DVTs // DM2 - HbA1c 6.7% // PVD SP right AKA // [facility] resident // MRSA colonized // NKDA // Full Code PLAN: - cont IV Zosyn for now d# 3 ( 01/03 SP amikacin d# 4, zosyn d# 3 ) ( 01/02 SP IV vancomycin d# 3 ) - monitor CBC, temperatures - monitor BMP. - monitor CXR - wound care - monitor Cx ( Bl ) - f/u path Subjective Allergies: Coded Allergies: No Known Allergies (Unverified , 09/15/16) Subjective transferring out of ICU today Objective Vital Signs Last 24 Hour Vital Signs Date Time Temp Pulse Resp B/P Pulse Ox O2 Delivery O2 Flow Rate FiO2 05/18/17 11:00 86 21 125/61 98 Room Air 05/18/17 10:06 05/18/17 10:00 85 15 109/61 97 Room Air 05/18/17 09:00 85 15 100/55 98 Room Air 05/18/17 08:00 98.2 87 16 124/56 99 Room Air 05/18/17 08:00 91 05/18/17 07:00 85 15 104/59 98 Room Air 05/18/17 06:52 Room Air 05/18/17 06:52 99 Room Air 05/18/17 06:22 87 18 130/57 100 Room Air 05/18/17 06:00 87 18 130/57 100 Room Air 05/18/17 05:00 97.8 96 18 122/57 100 Room Air 05/18/17 04:00 100 05/18/17 04:00 97.8 97 17 104/53 100 Room Air 05/18/17 03:20 114/51 05/18/17 03:00 99 16 114/51 100 Room Air 05/18/17 02:00 100 17 113/52 98 Room Air 05/18/17 01:00 103 19 99/46 98 Room Air 05/18/17 00:00 107 22 95/51 98 Room Air 05/18/17 00:00 106 05/17/17 23:00 107 22 128/57 98 Room Air 05/17/17 22:00 104 24 135/57 98 Room Air 05/17/17 21:00 107 16 106/52 98 Room Air 05/17/17 20:00 97.8 102 18 100/39 93 Room Air 05/17/17 20:00 98 05/17/17 19:15 99 Room Air 05/17/17 19:15 Room Air 05/17/17 19:00 109 18 104/53 93 Room Air 05/17/17 18:00 108 18 90/47 93 Non-Rebreather 15.0 100 05/17/17 17:00 103 18 140/47 93 Non-Rebreather 15.0 100 05/17/17 16:19 Non-Rebreather 15.0 100 05/17/17 16:00 98 05/17/17 16:00 97.9 101 19 135/45 93 Mechanical Ventilator 100 05/17/17 16:00 100 05/17/17 15:15 88 16 100 05/17/17 15:00 86 18 109/55 93 Mechanical Ventilator 100 05/17/17 14:34 100 12 100 05/17/17 14:33 70 14 100 05/17/17 14:17 Nasal Cannula 2.0 05/17/17 14:16 96 Nasal Cannula 2.0 05/17/17 14:00 104 19 117/59 93 Mechanical Ventilator 100 05/17/17 13:07 106 23 100 05/17/17 13:00 96 20 90/73 93 Mechanical Ventilator 100 05/17/17 13:00 89/60 05/17/17 12:25 94 Height (Feet): 5 Height (Inches): 5.00 Weight (Pounds): 130 HEENT: anicteric Respiratory/Chest: no respiratory distress Cardiovascular: regularly irregular Abdomen: non distended Microbiology Date/Time Source Procedure Growth Status 05/16/17 12:15 Blood Blood Culture - Preliminary NO GROWTH AFTER 24 HOURS Resulted 05/16/17 12:00 Blood Blood Culture - Preliminary NO GROWTH AFTER 24 HOURS Resulted Laboratory Tests Test 05/17/17 15:50 05/18/17 04:20 05/18/17 09:00 05/18/17 09:05 Arterial Blood pH 7.370 (7.350-7.450) 7.405 (7.350-7.450) Arterial Blood Partial Pressure CO2 31.1 mmHg (35.0-45.0) L 30.8 mmHg (35.0-45.0) L Arterial Blood Partial Pressure O2 442.8 mmHg (75.0-100.0) H 75.7 mmHg (75.0-100.0) Arterial Blood HCO3 17.9 mmol/L (22.0-26.0) L 18.9 mmol/L (22.0-26.0) L Arterial Blood Oxygen Saturation 99.1 % (92.0-98.0) H 94.3 % (92.0-98.0) Arterial Blood Base Excess -6.3 -5.0 Gilberto Test Positive Positive Sodium Level 143 mEQ/L (135-145) Potassium Level 4.3 mEQ/L (3.4-4.9) Chloride Level 103 mEQ/L (98-107) Carbon Dioxide Level 18 mEQ/L (20-30) L Anion Gap 22 (5-15) H Blood Urea Nitrogen 117 mg/dL (7-23) H Creatinine 5.1 mg/dL (0.5-0.9) H Estimat Glomerular Filtration Rate 10.3 mL/min (>60) Glucose Level 184 mg/dL (74-106) #H Uric Acid 8.9 mg/dL (3.0-7.5) H Calcium Level 8.8 mg/dL (8.6-10.2) Phosphorus Level 4.0 mg/dL (2.5-4.8) Magnesium Level 2.0 mg/dL (1.7-2.5) Total Bilirubin 0.5 mg/dL (0.0-1.2) Aspartate Amino Transf (AST/SGOT) 257 U/L (5-40) H Alanine Aminotransferase (ALT/SGPT) 447 U/L (3-33) H Alkaline Phosphatase 60 U/L (35-104) C-Reactive Protein, Quantitative 2.2 mg/dL (< 0.5) H Pro-B-Type Natriuretic Peptide 5857 pg/mL (0-125) H Total Protein 4.7 g/dL (6.6-8.7) #L Albumin 2.7 g/dL (3.5-5.2) L Globulin 2.0 g/dL Albumin/Globulin Ratio 1.3 (1.0-2.7) White Blood Count 15.3 K/UL (4.8-10.8) H Red Blood Count 3.08 M/UL (4.20-5.40) L Hemoglobin 9.4 G/DL (12.0-16.0) L Hematocrit 27.8 % (37.0-47.0) #L Mean Corpuscular Volume 90 FL (80-99) Mean Corpuscular Hemoglobin 30.6 PG (27.0-31.0) Mean Corpuscular Hemoglobin Concent 34.0 G/DL (32.0-36.0) Red Cell Distribution Width 13.5 % (11.6-14.8) Platelet Count 168 K/UL (150-450) Mean Platelet Volume 9.8 FL (6.5-10.1) Neutrophils (%) (Auto) 84.7 % (45.0-75.0) H Lymphocytes (%) (Auto) 8.9 % (20.0-45.0) L Monocytes (%) (Auto) 4.9 % (1.0-10.0) Eosinophils (%) (Auto) 0.9 % (0.0-3.0) Basophils (%) (Auto) 0.7 % (0.0-2.0) Prothrombin Time 11.0 SEC (9.30-11.50) Prothromb Time International Ratio 1.1 (0.9-1.1) Current Medications Medications (Trade) Dose Ordered Sig/Althea Route PRN Reason Start Time Stop Time Status Last Admin Dose Admin Acetaminophen (Tylenol) 650 mg Q4H PRN ORAL fever 05/16/17 11:15 06/15/17 11:14 Dextrose (Dextrose 50%) STAT PRN IV Hypoglycemia 05/16/17 16:30 06/15/17 16:29 Docusate Sodium (Colace) 100 mg THREE TIMES A DAY ORAL 05/16/17 13:00 06/15/17 12:59 Epinephrine/ Dextrose (EPINEPHrine 1mg/ml Amp/D5W) 250 ml @ 0 mls/hr Q24H IV 05/17/17 06:00 06/16/17 05:59 05/17/17 06:01 Epoetin Romeo (Procrit (for ESRD on dialysis)) 10,000 units SUN- SUBQ 05/16/17 21:00 06/15/17 20:59 05/16/17 21:24 Insulin Aspart (NovoLOG) Q6HR SUBQ 05/17/17 18:00 06/16/17 17:59 05/18/17 06:16 Metoclopramide HCl 10 mg 10 mg Q6H PRN IVP Nausea & Vomiting 05/17/17 13:00 06/16/17 12:59 05/17/17 13:09 Morphine Sulfate (Morphine Sulfate) 1 mg Q4H PRN IVP For Pain 4-10 05/16/17 12:00 05/23/17 11:59 Norepinephrine Bitartrate 4 mg/ Dextrose 250 ml @ 0 mls/hr Q24H IV 05/17/17 04:30 06/16/17 04:29 05/17/17 04:57 Ondansetron HCl (Zofran) 4 mg Q6H PRN IVP Nausea & Vomiting 05/16/17 16:00 06/15/17 15:59 Pantoprazole 80 mg/Sodium Chloride 250 ml @ 25 mls/hr Q10H IV 05/16/17 13:30 06/15/17 13:29 05/18/17 05:27 Piperacillin Sod/ Tazobactam Sod/ Dextrose (Zosyn/D5W) 55 ml @ 110 mls/hr Q8HR IV 05/17/17 15:00 05/24/17 14:59 05/18/17 05:44 Polyethylene Glycol (Miralax) 17 gm HSPRN PRN ORAL Constipation 05/16/17 19:15 06/15/17 19:14 Quetiapine Fumarate (SEROquel) 12.5 mg BID ORAL 05/16/17 18:00 06/15/17 17:59 05/16/17 18:03 Sevelamer Carbonate (Renvela) 800 mg THREE TIMES A DAY ORAL 05/16/17 13:00 06/15/17 12:59 05/16/17 18:03 Sucralfate 1 gm 1 gm FOUR TIMES A DAY ORAL 05/16/17 13:00 06/15/17 12:59 05/18/17 10:08 NANCY QUICK M.D. May 18, 2017 12:04
[2017-05-18] MEDS ORDERED: Metoclopramide 10mg/2ml Inj IVP PRN ×2 (12:30→19:45)
--- NOTE | 2017-05-18 14:35 | GI Progress Note ---
Assessment/Plan Problems: (1) Acute encephalopathy ICD Codes: G93.40 - Encephalopathy, unspecified SNOMED: 2241696 (2) Anemia ICD Codes: D64.9 - Anemia, unspecified SNOMED: 718856194 (3) GI bleed ICD Codes: K92.2 - Gastrointestinal hemorrhage, unspecified SNOMED: 07135689 Qualifiers: Qualified Codes: K92.2 - Gastrointestinal hemorrhage, unspecified (4) Diabetes mellitus ICD Codes: E11.9 - Type 2 diabetes mellitus without complications SNOMED: 90061387 Qualifiers: Qualified Codes: E13.8 - Other specified diabetes mellitus with unspecified complications; Z79.4 - nursing home (current) use of insulin (5) Sepsis ICD Codes: A41.9 - Sepsis, unspecified organism SNOMED: 04103357 (6) Gastric polyp ICD Codes: K31.7 - Polyp of stomach and duodenum SNOMED: 52936318 Status: progressing Status Narrative Discussed with Dr. Herrera. Assessment/Plan S/P EGD / Colonoscopy - SUMMARY OF FINDINGS: 1. Multiple gastric polyps, see above for details. 2. Gastritis. 3. Internal hemorrhoids. 4. Diverticulosis. 5. Two colonic polyps removed see above for details. pt transferred to ICU due to drop in Hgb S/P EGD x2 with 3 clips on 05/17/17. RECOMMENDATIONS: fu surgical consult >> exploratory laparotomy with gastrotomy and over-sewing of the bleeding site if patient continues to bleed monitor H&H, transfuse prn protonix IV + carafate fu labs The patient was seen and examined at bedside and all new and available data was reviewed in the patients chart. I agree with the above findings, impression and plan. (Patient seen earlier today. Signature stamp does not reflect patient encounter time.). -Fabrizio Herrera MD Subjective Subjective limited Objective Last 24 Hour Vital Signs Date Time Temp Pulse Resp B/P Pulse Ox O2 Delivery O2 Flow Rate FiO2 05/18/17 13:00 82 15 113/57 99 Room Air 05/18/17 12:00 84 05/18/17 12:00 97.9 85 16 119/57 99 Room Air 05/18/17 11:00 86 21 125/61 98 Room Air 05/18/17 10:06 05/18/17 10:00 85 15 109/61 97 Room Air 05/18/17 09:00 85 15 100/55 98 Room Air 05/18/17 08:00 98.2 87 16 124/56 99 Room Air 05/18/17 08:00 91 05/18/17 07:00 85 15 104/59 98 Room Air 05/18/17 06:52 Room Air 05/18/17 06:52 99 Room Air 05/18/17 06:22 87 18 130/57 100 Room Air 05/18/17 06:00 87 18 130/57 100 Room Air 05/18/17 05:00 97.8 96 18 122/57 100 Room Air 05/18/17 04:00 100 05/18/17 04:00 97.8 97 17 104/53 100 Room Air 05/18/17 03:20 114/51 05/18/17 03:00 99 16 114/51 100 Room Air 05/18/17 02:00 100 17 113/52 98 Room Air 05/18/17 01:00 103 19 99/46 98 Room Air 05/18/17 00:00 107 22 95/51 98 Room Air 05/18/17 00:00 106 05/17/17 23:00 107 22 128/57 98 Room Air 05/17/17 22:00 104 24 135/57 98 Room Air 05/17/17 21:00 107 16 106/52 98 Room Air 05/17/17 20:00 97.8 102 18 100/39 93 Room Air 05/17/17 20:00 98 05/17/17 19:15 99 Room Air 05/17/17 19:15 Room Air 05/17/17 19:00 109 18 104/53 93 Room Air 05/17/17 18:00 108 18 90/47 93 Non-Rebreather 15.0 100 05/17/17 17:00 103 18 140/47 93 Non-Rebreather 15.0 100 05/17/17 16:19 Non-Rebreather 15.0 100 05/17/17 16:00 98 05/17/17 16:00 97.9 101 19 135/45 93 Mechanical Ventilator 100 05/17/17 16:00 100 05/17/17 15:15 88 16 100 05/17/17 15:00 86 18 109/55 93 Mechanical Ventilator 100 Intake and Output 05/17/17 05/18/17 19:00 07:00 Intake Total 1486.0 ml 275 ml Balance 1486.0 ml 275 ml IV Total 736.0 ml 275 ml Blood Product 750 ml # Bowel Movements 6 5 Laboratory Tests Test 05/17/17 15:50 05/18/17 04:20 05/18/17 09:00 05/18/17 09:05 Arterial Blood pH 7.370 (7.350-7.450) 7.405 (7.350-7.450) Arterial Blood Partial Pressure CO2 31.1 mmHg (35.0-45.0) L 30.8 mmHg (35.0-45.0) L Arterial Blood Partial Pressure O2 442.8 mmHg (75.0-100.0) H 75.7 mmHg (75.0-100.0) Arterial Blood HCO3 17.9 mmol/L (22.0-26.0) L 18.9 mmol/L (22.0-26.0) L Arterial Blood Oxygen Saturation 99.1 % (92.0-98.0) H 94.3 % (92.0-98.0) Arterial Blood Base Excess -6.3 -5.0 Gilberto Test Positive Positive Sodium Level 143 mEQ/L (135-145) Potassium Level 4.3 mEQ/L (3.4-4.9) Chloride Level 103 mEQ/L (98-107) Carbon Dioxide Level 18 mEQ/L (20-30) L Anion Gap 22 (5-15) H Blood Urea Nitrogen 117 mg/dL (7-23) H Creatinine 5.1 mg/dL (0.5-0.9) H Estimat Glomerular Filtration Rate 10.3 mL/min (>60) Glucose Level 184 mg/dL (74-106) #H Uric Acid 8.9 mg/dL (3.0-7.5) H Calcium Level 8.8 mg/dL (8.6-10.2) Phosphorus Level 4.0 mg/dL (2.5-4.8) Magnesium Level 2.0 mg/dL (1.7-2.5) Total Bilirubin 0.5 mg/dL (0.0-1.2) Aspartate Amino Transf (AST/SGOT) 257 U/L (5-40) H Alanine Aminotransferase (ALT/SGPT) 447 U/L (3-33) H Alkaline Phosphatase 60 U/L (35-104) C-Reactive Protein, Quantitative 2.2 mg/dL (< 0.5) H Pro-B-Type Natriuretic Peptide 5857 pg/mL (0-125) H Total Protein 4.7 g/dL (6.6-8.7) #L Albumin 2.7 g/dL (3.5-5.2) L Globulin 2.0 g/dL Albumin/Globulin Ratio 1.3 (1.0-2.7) White Blood Count 15.3 K/UL (4.8-10.8) H Red Blood Count 3.08 M/UL (4.20-5.40) L Hemoglobin 9.4 G/DL (12.0-16.0) L Hematocrit 27.8 % (37.0-47.0) #L Mean Corpuscular Volume 90 FL (80-99) Mean Corpuscular Hemoglobin 30.6 PG (27.0-31.0) Mean Corpuscular Hemoglobin Concent 34.0 G/DL (32.0-36.0) Red Cell Distribution Width 13.5 % (11.6-14.8) Platelet Count 168 K/UL (150-450) Mean Platelet Volume 9.8 FL (6.5-10.1) Neutrophils (%) (Auto) 84.7 % (45.0-75.0) H Lymphocytes (%) (Auto) 8.9 % (20.0-45.0) L Monocytes (%) (Auto) 4.9 % (1.0-10.0) Eosinophils (%) (Auto) 0.9 % (0.0-3.0) Basophils (%) (Auto) 0.7 % (0.0-2.0) Prothrombin Time 11.0 SEC (9.30-11.50) Prothromb Time International Ratio 1.1 (0.9-1.1) Height (Feet): 5 Height (Inches): 5.00 Weight (Pounds): 130 General Appearance: no apparent distress, alert Cardiovascular: normal rate Respiratory/Chest: normal breath sounds, no accessory muscle use Abdominal Exam: soft Crissy Simpson N.Alf May 18, 2017 14:35 FABRIZIO HERRERA May 23, 2017 07:59
--- NOTE | 2017-05-18 14:49 | General Progress Note ---
Assessment/Plan Status: stable Assessment/Plan End-stage renal disease, on hemodialysis every Sunday, Sunday, and Sunday. Last dialysis was on Friday 05/11 Current issue: Massive GI bleed 1. Type 2 diabetes. 2. Hypertension. 3. Anemia of chronic renal disease. & Vaginal bleed 4. Hypercholesterolemia. 5. Peripheral vascular disease. 6. Alzheimer's dementia. 7. ?? LUNG MASS PAST SURGICAL HISTORY: Significant for: 1. Right salwb-udy-nopo amputation. 2. Open reduction internal fixation of the left femoral neck on 07/20/2016. Plan; HD today 05/18 ? transfusion? as needed Per GI - & Surg Monitor H&H - EPO Per consultants Subjective ROS Limited/Unobtainable: No Allergies: Coded Allergies: No Known Allergies (Unverified , 09/15/16) Objective Last 24 Hour Vital Signs Date Time Temp Pulse Resp B/P Pulse Ox O2 Delivery O2 Flow Rate FiO2 05/18/17 13:00 82 15 113/57 99 Room Air 05/18/17 12:00 84 05/18/17 12:00 97.9 85 16 119/57 99 Room Air 05/18/17 11:00 86 21 125/61 98 Room Air 05/18/17 10:06 05/18/17 10:00 85 15 109/61 97 Room Air 05/18/17 09:00 85 15 100/55 98 Room Air 05/18/17 08:00 98.2 87 16 124/56 99 Room Air 05/18/17 08:00 91 05/18/17 07:00 85 15 104/59 98 Room Air 05/18/17 06:52 Room Air 05/18/17 06:52 99 Room Air 05/18/17 06:22 87 18 130/57 100 Room Air 05/18/17 06:00 87 18 130/57 100 Room Air 05/18/17 05:00 97.8 96 18 122/57 100 Room Air 05/18/17 04:00 100 05/18/17 04:00 97.8 97 17 104/53 100 Room Air 05/18/17 03:20 114/51 05/18/17 03:00 99 16 114/51 100 Room Air 05/18/17 02:00 100 17 113/52 98 Room Air 05/18/17 01:00 103 19 99/46 98 Room Air 05/18/17 00:00 107 22 95/51 98 Room Air 05/18/17 00:00 106 05/17/17 23:00 107 22 128/57 98 Room Air 05/17/17 22:00 104 24 135/57 98 Room Air 05/17/17 21:00 107 16 106/52 98 Room Air 05/17/17 20:00 97.8 102 18 100/39 93 Room Air 05/17/17 20:00 98 05/17/17 19:15 99 Room Air 05/17/17 19:15 Room Air 05/17/17 19:00 109 18 104/53 93 Room Air 05/17/17 18:00 108 18 90/47 93 Non-Rebreather 15.0 100 05/17/17 17:00 103 18 140/47 93 Non-Rebreather 15.0 100 05/17/17 16:19 Non-Rebreather 15.0 100 05/17/17 16:00 98 05/17/17 16:00 97.9 101 19 135/45 93 Mechanical Ventilator 100 05/17/17 16:00 100 05/17/17 15:15 88 16 100 05/17/17 15:00 86 18 109/55 93 Mechanical Ventilator 100 Intake and Output 05/17/17 05/18/17 19:00 07:00 Intake Total 1486.0 ml 275 ml Balance 1486.0 ml 275 ml IV Total 736.0 ml 275 ml Blood Product 750 ml # Bowel Movements 6 5 Laboratory Tests 05/17/17 15:50: Arterial Blood pH 7.370, Arterial Blood Partial Pressure CO2 31.1L, Arterial Blood Partial Pressure O2 442.8H, Arterial Blood HCO3 17.9L, Arterial Blood Oxygen Saturation 99.1H, Arterial Blood Base Excess -6.3, Gilberto Test Positive 05/18/17 04:20: Sodium Level 143, Potassium Level 4.3, Chloride Level 103, Carbon Dioxide Level 18L, Anion Gap 22H, Blood Urea Nitrogen 117H, Creatinine 5.1H, Estimat Glomerular Filtration Rate 10.3, Glucose Level 184#H, Uric Acid 8.9H, Calcium Level 8.8, Phosphorus Level 4.0, Magnesium Level 2.0, Total Bilirubin 0.5, Aspartate Amino Transf (AST/SGOT) 257H, Alanine Aminotransferase (ALT/SGPT) 447H , Alkaline Phosphatase 60, C-Reactive Protein, Quantitative 2.2H, Pro-B-Type Natriuretic Peptide 5857H, Total Protein 4.7#L, Albumin 2.7L, Globulin 2.0, Albumin/Globulin Ratio 1.3 05/18/17 09:00: White Blood Count 15.3H, Red Blood Count 3.08L, Hemoglobin 9.4L, Hematocrit 27.8 #L, Mean Corpuscular Volume 90, Mean Corpuscular Hemoglobin 30.6, Mean Corpuscular Hemoglobin Concent 34.0, Red Cell Distribution Width 13.5, Platelet Count 168, Mean Platelet Volume 9.8, Neutrophils (%) (Auto) 84.7H, Lymphocytes ( %) (Auto) 8.9L, Monocytes (%) (Auto) 4.9, Eosinophils (%) (Auto) 0.9, Basophils (%) (Auto) 0.7, Prothrombin Time 11.0, Prothromb Time International Ratio 1.1 05/18/17 09:05: Arterial Blood pH 7.405, Arterial Blood Partial Pressure CO2 30.8L, Arterial Blood Partial Pressure O2 75.7, Arterial Blood HCO3 18.9L, Arterial Blood Oxygen Saturation 94.3, Arterial Blood Base Excess -5.0, Gilberto Test Positive Height (Feet): 5 Height (Inches): 5.00 Weight (Pounds): 130 General Appearance: other - extubated Neck: limited range of motion Cardiovascular: tachycardia Respiratory/Chest: decreased breath sounds Abdomen: soft Objective massive bleed from rectum TAQUERIA JACOBSON May 18, 2017 14:48
[2017-05-18] MEDS ORDERED: Epogen (for ESRD on dialysis) SUBQ SCH (21:00)
[2017-05-18] MEDS: Piperacillin/Tazobactam 2.25 GM in D5W 55 ML IV SCH (22:46)
[2017-05-19] MEDS: NovoLOG Insulin Flexpen SUBQ SCH ×5 (00:02→23:49)
[2017-05-19 00:48] VITALS: BP 101/56
[2017-05-19] MEDS: Pantoprazole 80 MG in NS 250 ML IV SCH ×3 (01:46→21:03)
[2017-05-19 04:00] VITALS: BP 133/54
[2017-05-19 04:50] LABS: BASOPHILS % (AUTO) 0.6 % (0.0-2.0); EOSINOPHILS % (AUTO) 2.9 % (0.0-3.0); LYMPHOCYTES % (AUTO) 10.8 % (20.0-45.0); MEAN CORPUSCULAR HEMOGLOBIN 31.2 PG (27.0-31.0); MEAN CORPUSCULAR HGB CONC 34.1 G/DL (32.0-36.0); MEAN CORPUSCULAR VOLUME 92 FL (80-99); MEAN PLATELET VOLUME 8.6 FL (6.5-10.1); MONOCYTES % (AUTO) 4.4 % (1.0-10.0); NEUTROPHILS % (AUTO) 81.3 % (45.0-75.0); PLATELET COUNT 192 K/UL (150-450); RED BLOOD COUNT 3.02 M/UL (4.20-5.40); RED CELL DISTRIBUTION WIDTH 13.8 % (11.6-14.8); WHITE BLOOD COUNT 13.1 K/UL (4.8-10.8)
[2017-05-19 05:09] LABS: ALBUMIN/GLOBULIN RATIO 1.1 (1.0-2.7); CALCIUM 8.7 mg/dL (8.6-10.2); GLOMERULAR FILTRATION RATE 10.5 mL/min (>60); POTASSIUM 3.3 mEQ/L (3.4-4.9); TOTAL PROTEIN 5.1 g/dL (6.6-8.7)
[2017-05-19] MEDS: Piperacillin/Tazobactam 2.25 GM in D5W 55 ML IV SCH ×3 (06:30→22:09)
[2017-05-19 07:43] VITALS: BP 112/60
--- NOTE | 2017-05-19 08:04 | General Progress Note ---
Progress Note Progress Note Afebrile, VSS. Pt is awake, non communicative. Abdomen is soft, no recurrence of GI bleeding, Hgb stable at 9.4 g. There is no need for surgical intervention. We need to check EGD biopsy. Praveen Villalba MD May 19, 2017 08:04
[2017-05-19] MEDS: Docusate 100mg cap ORAL SCH ×3 (10:13→17:55)
[2017-05-19] MEDS: Sucralfate 1gm tab ORAL SCH ×4 (10:13→21:03)
--- NOTE | 2017-05-19 10:54 | General Progress Note ---
Assessment/Plan Status: stable Status Narrative dialysed earlier Assessment/Plan End-stage renal disease, on hemodialysis every Sunday, Sunday, and Sunday. Last dialysis was on Friday 05/11 Current issue: Massive GI bleed 1. Type 2 diabetes. 2. Hypertension. 3. Anemia of chronic renal disease. & Vaginal bleed 4. Hypercholesterolemia. 5. Peripheral vascular disease. 6. Alzheimer's dementia. 7. ?? LUNG MASS PAST SURGICAL HISTORY: Significant for: 1. Right icyjk-uhy-xayq amputation. 2. Open reduction internal fixation of the left femoral neck on 07/20/2016. Plan; HD done today ( not 05/18 !) NPO On IV protonix ? transfusion? as needed Per GI - & Surg Monitor H&H - EPO Per consultants Subjective ROS Limited/Unobtainable: No Constitutional: Reports: malaise Allergies: Coded Allergies: No Known Allergies (Unverified , 09/15/16) Objective Last 24 Hour Vital Signs Date Time Temp Pulse Resp B/P Pulse Ox O2 Delivery O2 Flow Rate FiO2 05/19/17 08:00 83 05/19/17 07:45 Room Air 05/19/17 07:43 97.0 82 20 112/60 98 Room Air 05/19/17 04:10 Room Air 05/19/17 04:00 98.8 79 21 133/54 99 Room Air 05/19/17 03:46 81 05/19/17 00:48 98.7 85 18 101/56 100 05/19/17 00:00 87 05/18/17 20:00 97.5 82 20 116/62 100 Room Air 05/18/17 19:48 83 05/18/17 19:00 97.5 82 20 116/62 100 Room Air 05/18/17 18:00 87 22 127/54 100 Room Air 05/18/17 17:00 84 21 135/59 100 Room Air 05/18/17 16:00 97.8 83 18 124/54 100 Room Air 05/18/17 16:00 84 05/18/17 15:00 86 21 120/56 99 Room Air 05/18/17 14:00 83 16 132/57 100 Room Air 05/18/17 13:00 82 15 113/57 99 Room Air 05/18/17 12:00 84 05/18/17 12:00 97.9 85 16 119/57 99 Room Air 05/18/17 11:00 86 21 125/61 98 Room Air Intake and Output 05/18/17 05/19/17 19:00 07:00 Intake Total 375 ml Balance 375 ml IV Total 305 ml Other 70 ml # Voids 1 # Bowel Movements 2 3 Laboratory Tests 05/19/17 04:00: White Blood Count 13.1H, Red Blood Count 3.02L, Hemoglobin 9.4L, Hematocrit 27.7L, Mean Corpuscular Volume 92, Mean Corpuscular Hemoglobin 31.2H, Mean Corpuscular Hemoglobin Concent 34.1, Red Cell Distribution Width 13.8, Platelet Count 192, Mean Platelet Volume 8.6, Neutrophils (%) (Auto) 81.3H, Lymphocytes ( %) (Auto) 10.8L, Monocytes (%) (Auto) 4.4, Eosinophils (%) (Auto) 2.9, Basophils (%) (Auto) 0.6, Sodium Level 150H, Potassium Level 3.3L, Chloride Level 110H, Carbon Dioxide Level 17L, Anion Gap 23H, Blood Urea Nitrogen 110H, Creatinine 5.0H, Estimat Glomerular Filtration Rate 10.5, Glucose Level 106, Calcium Level 8.7, Total Bilirubin 0.5, Aspartate Amino Transf (AST/SGOT) 116H, Alanine Aminotransferase (ALT/SGPT) 310H, Alkaline Phosphatase 64, Total Protein 5.1L, Albumin 2.7L, Globulin 2.4, Albumin/Globulin Ratio 1.1 Height (Feet): 5 Height (Inches): 5.00 Weight (Pounds): 130 General Appearance: no apparent distress, confused Objective massive bleed from rectum TAQUERIA JACOBSON May 19, 2017 10:54
[2017-05-19 12:00] VITALS: BP 117/62
--- NOTE | 2017-05-19 13:03 | Pulmonology Progress Note ---
Assessment/Plan Assessment/Plan ASSESSMENT hemorrhagic shock GI bleeding acute toxic metabolic encephalopathy on chronic advanced dementia ( due to shock ) acute respiratory failure requiring intubation anemia of chronic renal disease acute anemia 2 to GI bleeding s/p blood transfusion ESRD, on HD DM PVD s/p R AKA acute DVT R SFV hx of vaginal bleeding PLAN OF CARE LEONIE status self extubated off pressors BP stable now awake, alert, pulse ox stable on RA stool OB + x 2 GI follows monitor HH, transfuse prn to keep Hgb above 7, s/p blood transfusion of PRBC and FFP s/p EGD and colon 05/14 with evidence of multiple gastric polyps, gastritis, colonoscopy with findings of internal hemorrhoids and diverticulosis s/p another EGD 05/16 + active bleeding from postpolypectomy site, s/p hemostasis and clip surgery follows for possible surgical intervention if bleeding not controlled on EPO nephro follows HD as per nephro monitor renal parameters , lytes empiric abx, ID follows Venous Duplex + acute DVT R SFV IVC filter placement ordered 05/18, not done yet BS management with SS of insulin, HgbA1c -6.7 pain management hx of vaginal bleeding, prior US with thickened endometrium and complex left adnexal mass) Subjective Allergies: Coded Allergies: No Known Allergies (Unverified , 09/15/16) Subjective leukocytosis trending down, afebrile HH remain at baseline IVC filter placement pending Objective Last 24 Hour Vital Signs Date Time Temp Pulse Resp B/P Pulse Ox O2 Delivery O2 Flow Rate FiO2 05/19/17 12:00 97.7 84 18 117/62 100 Room Air 05/19/17 09:36 Room Air 05/19/17 09:36 98 Room Air 05/19/17 08:00 83 05/19/17 07:45 Room Air 05/19/17 07:43 97.0 82 20 112/60 98 Room Air 05/19/17 04:10 Room Air 05/19/17 04:00 98.8 79 21 133/54 99 Room Air 05/19/17 03:46 81 05/19/17 00:48 98.7 85 18 101/56 100 05/19/17 00:00 87 05/18/17 20:00 97.5 82 20 116/62 100 Room Air 05/18/17 19:48 83 05/18/17 19:00 97.5 82 20 116/62 100 Room Air 05/18/17 18:00 87 22 127/54 100 Room Air 05/18/17 17:00 84 21 135/59 100 Room Air 05/18/17 16:00 97.8 83 18 124/54 100 Room Air 05/18/17 16:00 84 05/18/17 15:00 86 21 120/56 99 Room Air 05/18/17 14:00 83 16 132/57 100 Room Air 05/18/17 13:00 82 15 113/57 99 Room Air Intake and Output 05/18/17 05/19/17 19:00 07:00 Intake Total 375 ml Balance 375 ml IV Total 305 ml Other 70 ml # Voids 1 # Bowel Movements 2 3 Objective General: awake, aphasic, bedridden AA female in NAD HEENT: atraumatic, normocephalic Lungs: clear Heart: HR/BP stable, SR on monitor, CL R subclavian, LUE AV fistula Abdomen: soft, non-tender Extremities: R AKA Laboratory Tests 05/19/17 04:00: White Blood Count 13.1H, Red Blood Count 3.02L, Hemoglobin 9.4L, Hematocrit 27.7L, Mean Corpuscular Volume 92, Mean Corpuscular Hemoglobin 31.2H, Mean Corpuscular Hemoglobin Concent 34.1, Red Cell Distribution Width 13.8, Platelet Count 192, Mean Platelet Volume 8.6, Neutrophils (%) (Auto) 81.3H, Lymphocytes ( %) (Auto) 10.8L, Monocytes (%) (Auto) 4.4, Eosinophils (%) (Auto) 2.9, Basophils (%) (Auto) 0.6, Sodium Level 150H, Potassium Level 3.3L, Chloride Level 110H, Carbon Dioxide Level 17L, Anion Gap 23H, Blood Urea Nitrogen 110H, Creatinine 5.0H, Estimat Glomerular Filtration Rate 10.5, Glucose Level 106, Calcium Level 8.7, Total Bilirubin 0.5, Aspartate Amino Transf (AST/SGOT) 116H, Alanine Aminotransferase (ALT/SGPT) 310H, Alkaline Phosphatase 64, Total Protein 5.1L, Albumin 2.7L, Globulin 2.4, Albumin/Globulin Ratio 1.1 Current Medications Medications (Trade) Dose Ordered Sig/Althea Route PRN Reason Start Time Stop Time Status Last Admin Dose Admin Acetaminophen (Tylenol) 650 mg Q4H PRN ORAL fever 05/18/17 20:00 06/17/17 19:59 Chlorhexidine Gluconate (Mesha-Hex 2%) 1 applic BEDTIME TOPIC 05/19/17 21:00 06/18/17 20:59 Dextrose (Dextrose 50%) STAT PRN IV Hypoglycemia 05/18/17 20:00 06/17/17 19:59 Docusate Sodium (Colace) 100 mg THREE TIMES A DAY ORAL 05/19/17 09:00 06/18/17 08:59 05/19/17 12:55 Epoetin Romeo (Procrit (for ESRD on dialysis)) 10,000 units SUN-SUN-SUN SUBQ 05/18/17 21:00 06/17/17 20:59 05/18/17 21:26 Insulin Aspart (NovoLOG) Q6HR SUBQ 05/19/17 00:00 06/18/17 00:00 05/19/17 00:02 Metoclopramide HCl (Reglan) 5 mg Q6H PRN IVP Nausea & Vomiting 05/18/17 19:45 06/17/17 19:44 Morphine Sulfate (Morphine Sulfate) 1 mg Q4H PRN IVP For Pain 4-10 05/18/17 20:00 05/25/17 19:59 Ondansetron HCl (Zofran) 4 mg Q6H PRN IVP Nausea & Vomiting 05/18/17 19:45 06/17/17 19:44 Pantoprazole 80 mg/Sodium Chloride 250 ml @ 25 mls/hr Q10H IV 05/19/17 01:00 06/18/17 00:59 05/19/17 12:51 Piperacillin Sod/ Tazobactam Sod/ Dextrose (Zosyn/D5W) 55 ml @ 110 mls/hr Q8HR IV 05/18/17 22:00 05/25/17 21:59 05/19/17 06:30 Polyethylene Glycol (Miralax) 17 gm HSPRN PRN ORAL Constipation 05/19/17 19:15 06/18/17 19:14 Quetiapine Fumarate (SEROquel) 12.5 mg BID ORAL 05/19/17 09:00 06/18/17 08:59 05/19/17 10:13 Sucralfate (Carafate) 1 gm FOUR TIMES A DAY ORAL 05/18/17 21:00 06/17/17 20:59 05/19/17 12:55 Carlos (RavenKaia sanders NP May 19, 2017 13:03
[2017-05-19] MEDS ORDERED: DuoNeb 0.5-3(2.5)mg/3ml neb HHN PRN (13:15)
--- NOTE | 2017-05-19 15:47 | Infectious Diseases Prog Note ---
Assessment/Plan Assessment/Plan ASSESSMENT: 67-year-old female with: // Hx of C.difficile // hx of UTI - UCx <10K ESBL(+) E.coli SP Rx - h/o VSE.faecalis // Lt heel decubitus not grossly infected // leukocytosis post procedure, and 2/2 bleeding improving // HypotTN 2/2 to bleeding // GI bleed and FOBT+ anemia SP PRBCs - SP EGD/colonoscopy 05/14: Multiple gastric polyps; Gastritis; Internal hemorrhoids; Diverticulosis. // Hx of Vaginal bleed, possible endometrial CA - US: thickened endometrium and 8.5 cm complex left adnexal mass. // ESRD / HD // Advanced dementia // Acute and chronic BLE DVTs // DM2 - HbA1c 6.7% // PVD SP right AKA // [facility] resident // MRSA colonized // NKDA // Full Code PLAN: - cont IV Zosyn d# 4 / 5 ( 01/03 SP amikacin d# 4, zosyn d# 3 ) ( 01/02 SP IV vancomycin d# 3 ) - monitor CBC, temperatures - monitor BMP. - monitor CXR - wound care - monitor Cx ( Bl ) - f/u path Subjective Allergies: Coded Allergies: No Known Allergies (Unverified , 09/15/16) Subjective afebrile Objective Vital Signs Last 24 Hour Vital Signs Date Time Temp Pulse Resp B/P Pulse Ox O2 Delivery O2 Flow Rate FiO2 05/19/17 12:00 83 05/19/17 12:00 97.7 84 18 117/62 100 Room Air 05/19/17 09:36 Room Air 05/19/17 09:36 98 Room Air 05/19/17 08:00 83 05/19/17 07:45 Room Air 05/19/17 07:43 97.0 82 20 112/60 98 Room Air 05/19/17 04:10 Room Air 05/19/17 04:00 98.8 79 21 133/54 99 Room Air 05/19/17 03:46 81 05/19/17 00:48 98.7 85 18 101/56 100 05/19/17 00:00 87 05/18/17 20:00 97.5 82 20 116/62 100 Room Air 05/18/17 19:48 83 05/18/17 19:00 97.5 82 20 116/62 100 Room Air 05/18/17 18:00 87 22 127/54 100 Room Air 05/18/17 17:00 84 21 135/59 100 Room Air 05/18/17 16:00 97.8 83 18 124/54 100 Room Air 05/18/17 16:00 84 Height (Feet): 5 Height (Inches): 5.00 Weight (Pounds): 130 HEENT: atraumatic Respiratory/Chest: normal breath sounds Cardiovascular: regular rhythm Abdomen: soft, non tender Laboratory Tests Test 05/19/17 04:00 White Blood Count 13.1 K/UL (4.8-10.8) H Red Blood Count 3.02 M/UL (4.20-5.40) L Hemoglobin 9.4 G/DL (12.0-16.0) L Hematocrit 27.7 % (37.0-47.0) L Mean Corpuscular Volume 92 FL (80-99) Mean Corpuscular Hemoglobin 31.2 PG (27.0-31.0) H Mean Corpuscular Hemoglobin Concent 34.1 G/DL (32.0-36.0) Red Cell Distribution Width 13.8 % (11.6-14.8) Platelet Count 192 K/UL (150-450) Mean Platelet Volume 8.6 FL (6.5-10.1) Neutrophils (%) (Auto) 81.3 % (45.0-75.0) H Lymphocytes (%) (Auto) 10.8 % (20.0-45.0) L Monocytes (%) (Auto) 4.4 % (1.0-10.0) Eosinophils (%) (Auto) 2.9 % (0.0-3.0) Basophils (%) (Auto) 0.6 % (0.0-2.0) Sodium Level 150 mEQ/L (135-145) H Potassium Level 3.3 mEQ/L (3.4-4.9) L Chloride Level 110 mEQ/L (98-107) H Carbon Dioxide Level 17 mEQ/L (20-30) L Anion Gap 23 (5-15) H Blood Urea Nitrogen 110 mg/dL (7-23) H Creatinine 5.0 mg/dL (0.5-0.9) H Estimat Glomerular Filtration Rate 10.5 mL/min (>60) Glucose Level 106 mg/dL (74-106) Calcium Level 8.7 mg/dL (8.6-10.2) Total Bilirubin 0.5 mg/dL (0.0-1.2) Aspartate Amino Transf (AST/SGOT) 116 U/L (5-40) H Alanine Aminotransferase (ALT/SGPT) 310 U/L (3-33) H Alkaline Phosphatase 64 U/L (35-104) Total Protein 5.1 g/dL (6.6-8.7) L Albumin 2.7 g/dL (3.5-5.2) L Globulin 2.4 g/dL Albumin/Globulin Ratio 1.1 (1.0-2.7) Current Medications Medications (Trade) Dose Ordered Sig/Althea Route PRN Reason Start Time Stop Time Status Last Admin Dose Admin Acetaminophen (Tylenol) 650 mg Q4H PRN ORAL fever 05/18/17 20:00 06/17/17 19:59 Albuterol/ Ipratropium (DuoNeb 0.5-3(2.5)mg/3ml) 3 ml Q4H PRN HHN Shortness of Breath 05/19/17 13:15 05/24/17 13:14 Chlorhexidine Gluconate (Mesha-Hex 2%) 1 applic BEDTIME TOPIC 05/19/17 21:00 06/18/17 20:59 Dextrose (Dextrose 50%) STAT PRN IV Hypoglycemia 05/18/17 20:00 06/17/17 19:59 Docusate Sodium (Colace) 100 mg THREE TIMES A DAY ORAL 05/19/17 09:00 06/18/17 08:59 05/19/17 12:55 Epoetin Romeo (Procrit (for ESRD on dialysis)) 10,000 units MON-WED-SUN SUBQ 05/18/17 21:00 06/17/17 20:59 05/18/17 21:26 Insulin Aspart (NovoLOG) Q6HR SUBQ 05/19/17 00:00 06/18/17 00:00 05/19/17 00:02 Metoclopramide HCl (Reglan) 5 mg Q6H PRN IVP Nausea & Vomiting 05/18/17 19:45 06/17/17 19:44 Morphine Sulfate (Morphine Sulfate) 1 mg Q4H PRN IVP For Pain 4-10 05/18/17 20:00 05/25/17 19:59 Ondansetron HCl (Zofran) 4 mg Q6H PRN IVP Nausea & Vomiting 05/18/17 19:45 06/17/17 19:44 Pantoprazole 80 mg/Sodium Chloride 250 ml @ 25 mls/hr Q10H IV 05/19/17 01:00 06/18/17 00:59 05/19/17 12:51 Piperacillin Sod/ Tazobactam Sod/ Dextrose (Zosyn/D5W) 55 ml @ 110 mls/hr Q8HR IV 05/18/17 22:00 05/25/17 21:59 05/19/17 14:37 Polyethylene Glycol (Miralax) 17 gm HSPRN PRN ORAL Constipation 05/19/17 19:15 06/18/17 19:14 Quetiapine Fumarate (SEROquel) 12.5 mg BID ORAL 05/19/17 09:00 06/18/17 08:59 05/19/17 10:13 Sucralfate (Carafate) 1 gm FOUR TIMES A DAY ORAL 05/18/17 21:00 06/17/17 20:59 05/19/17 12:55 NANCY QUICK M.D. May 19, 2017 15:47
[2017-05-19 16:00] VITALS: BP 110/66
[2017-05-19] MEDS ORDERED: Miralax 17gm pkt ORAL PRN (19:15)
[2017-05-19 20:00] VITALS: BP 131/68
--- NOTE | 2017-05-19 20:03 | General Progress Note ---
Assessment/Plan Assessment/Plan Assessment GIB Anemia Leukocytosis Resp failure Rental failure, HD PVD, AKA polyps and diverticulosis Recommendations - Po diet - monitor CBC - PPI - HD - pain control Subjective Allergies: Coded Allergies: No Known Allergies (Unverified , 09/15/16) Subjective Feels OK no abdominal complaints above noted WBC declining Objective Last 24 Hour Vital Signs Date Time Temp Pulse Resp B/P Pulse Ox O2 Delivery O2 Flow Rate FiO2 05/19/17 16:00 97.7 76 20 110/66 96 Room Air 05/19/17 16:00 81 05/19/17 12:00 83 05/19/17 12:00 97.7 84 18 117/62 100 Room Air 05/19/17 09:36 Room Air 05/19/17 09:36 98 Room Air 05/19/17 08:00 83 05/19/17 07:45 Room Air 05/19/17 07:43 97.0 82 20 112/60 98 Room Air 05/19/17 04:10 Room Air 05/19/17 04:00 98.8 79 21 133/54 99 Room Air 05/19/17 03:46 81 05/19/17 00:48 98.7 85 18 101/56 100 05/19/17 00:00 87 05/18/17 20:00 97.5 82 20 116/62 100 Room Air Intake and Output 05/18/17 05/19/17 19:00 07:00 Intake Total 425 ml 273 ml Balance 425 ml 273 ml IV Total 355 ml 273 ml Other 70 ml # Voids 1 # Bowel Movements 2 3 Laboratory Tests 05/19/17 04:00: White Blood Count 13.1H, Red Blood Count 3.02L, Hemoglobin 9.4L, Hematocrit 27.7L, Mean Corpuscular Volume 92, Mean Corpuscular Hemoglobin 31.2H, Mean Corpuscular Hemoglobin Concent 34.1, Red Cell Distribution Width 13.8, Platelet Count 192, Mean Platelet Volume 8.6, Neutrophils (%) (Auto) 81.3H, Lymphocytes ( %) (Auto) 10.8L, Monocytes (%) (Auto) 4.4, Eosinophils (%) (Auto) 2.9, Basophils (%) (Auto) 0.6, Sodium Level 150H, Potassium Level 3.3L, Chloride Level 110H, Carbon Dioxide Level 17L, Anion Gap 23H, Blood Urea Nitrogen 110H, Creatinine 5.0H, Estimat Glomerular Filtration Rate 10.5, Glucose Level 106, Calcium Level 8.7, Total Bilirubin 0.5, Aspartate Amino Transf (AST/SGOT) 116H, Alanine Aminotransferase (ALT/SGPT) 310H, Alkaline Phosphatase 64, Total Protein 5.1L, Albumin 2.7L, Globulin 2.4, Albumin/Globulin Ratio 1.1 Height (Feet): 5 Height (Inches): 5.00 Weight (Pounds): 130 Objective Thin AA woman NCAT supple CTA RR soft NT ND (+) R AKA non focal JIMI BONDS May 19, 2017 20:03
[2017-05-19] MEDS: Dyna-Hex 2% Top Sol 8oz TOPIC SCH (21:03)
[2017-05-19] MEDS ORDERED: Tubing Blood Filter IV ONE ×2 (22:21→22:50)
[2017-05-19] MEDS ORDERED: Tubing IV Secondary IV ONE ×2 (22:21→22:50)
[2017-05-19] MEDS ORDERED: NS 550ML IV ONE (22:21)
[2017-05-19] MEDS ORDERED: NS 275ml ONE (22:50)
[2017-05-19] MEDS ORDERED: D5W 275ml ONE (22:50)
[2017-05-19] MEDS ORDERED: D5 1/2NS 1000ml IV ONE (22:50)
[2017-05-20] VITALS: BP 124/67
[2017-05-20 04:00] VITALS: BP 122/67
[2017-05-20] MEDS: NovoLOG Insulin Flexpen SUBQ SCH ×3 (06:00→17:09)
[2017-05-20 06:13] LABS: BASOPHILS % (AUTO) 0.8 % (0.0-2.0); EOSINOPHILS % (AUTO) 2.4 % (0.0-3.0); LYMPHOCYTES % (AUTO) 12.2 % (20.0-45.0); MEAN CORPUSCULAR HEMOGLOBIN 31.7 PG (27.0-31.0); MEAN CORPUSCULAR HGB CONC 34.1 G/DL (32.0-36.0); MEAN CORPUSCULAR VOLUME 93 FL (80-99); MEAN PLATELET VOLUME 8.5 FL (6.5-10.1); MONOCYTES % (AUTO) 5.6 % (1.0-10.0); PLATELET COUNT 225 K/UL (150-450); RED BLOOD COUNT 3.18 M/UL (4.20-5.40); RED CELL DISTRIBUTION WIDTH 14.5 % (11.6-14.8); WHITE BLOOD COUNT 11.5 K/UL (4.8-10.8)
[2017-05-20] MEDS: Piperacillin/Tazobactam 2.25 GM in D5W 55 ML IV SCH (06:37)
[2017-05-20 06:47] LABS: ALBUMIN/GLOBULIN RATIO 1.4 (1.0-2.7); CALCIUM 8.6 mg/dL (8.6-10.2); CREATININE 3.3 mg/dL (0.5-0.9); CRP QUANT 0.8 mg/dL (< 0.5); MAGNESIUM 1.8 mg/dL (1.7-2.5); PHOSPHORUS 2.7 mg/dL (2.5-4.8); POTASSIUM 3.2 mEQ/L (3.4-4.9); TOTAL PROTEIN 5.2 g/dL (6.6-8.7); URIC ACID 5.5 mg/dL (3.0-7.5)
[2017-05-20] MEDS: Pantoprazole 80 MG in NS 250 ML IV SCH (07:03)
[2017-05-20 08:07] VITALS: BP 145/78
[2017-05-20] MEDS: Sucralfate 1gm tab ORAL SCH ×4 (09:23→20:29)
[2017-05-20] MEDS: Docusate 100mg cap ORAL SCH ×3 (09:23→17:09)
--- NOTE | 2017-05-20 09:43 | Infectious Diseases Prog Note ---
Assessment/Plan Assessment/Plan A: Leukocytosis improving GI bleeding Anemia ESRD on HD DM P: Discontinue Zosyn Subjective ROS Limited/Unobtainable: Yes Respiratory: Reports: no symptoms Gastrointestinal/Abdominal: Reports: no symptoms Allergies: Coded Allergies: No Known Allergies (Unverified , 09/15/16) Objective Vital Signs Last 24 Hour Vital Signs Date Time Temp Pulse Resp B/P Pulse Ox O2 Delivery O2 Flow Rate FiO2 05/20/17 08:07 97.0 84 20 145/78 100 Room Air 05/20/17 08:00 86 05/20/17 07:52 Room Air 05/20/17 07:52 100 Room Air 05/20/17 04:00 98.4 89 18 122/67 100 Room Air 05/20/17 04:00 93 05/20/17 00:00 92 05/20/17 00:00 98.6 91 18 124/67 100 Room Air 05/19/17 20:39 Room Air 05/19/17 20:38 97 Room Air 05/19/17 20:00 92 05/19/17 20:00 98.3 95 18 131/68 100 Room Air 05/19/17 16:00 97.7 76 20 110/66 96 Room Air 05/19/17 16:00 81 05/19/17 12:00 83 05/19/17 12:00 97.7 84 18 117/62 100 Room Air Height (Feet): 5 Height (Inches): 5.00 Weight (Pounds): 130 General Appearance: no acute distress Respiratory/Chest: lungs clear Cardiovascular: normal rate Abdomen: soft, non tender, other - rectal tube Extremities: no edema, other - R AKA Neurologic/Psychiatric: alert, responsive, other - on restraint Laboratory Tests Test 05/20/17 05:15 White Blood Count 11.5 K/UL (4.8-10.8) H Red Blood Count 3.18 M/UL (4.20-5.40) L Hemoglobin 10.1 G/DL (12.0-16.0) L Hematocrit 29.5 % (37.0-47.0) L Mean Corpuscular Volume 93 FL (80-99) Mean Corpuscular Hemoglobin 31.7 PG (27.0-31.0) H Mean Corpuscular Hemoglobin Concent 34.1 G/DL (32.0-36.0) Red Cell Distribution Width 14.5 % (11.6-14.8) Platelet Count 225 K/UL (150-450) Mean Platelet Volume 8.5 FL (6.5-10.1) Neutrophils (%) (Auto) 79.0 % (45.0-75.0) H Lymphocytes (%) (Auto) 12.2 % (20.0-45.0) L Monocytes (%) (Auto) 5.6 % (1.0-10.0) Eosinophils (%) (Auto) 2.4 % (0.0-3.0) Basophils (%) (Auto) 0.8 % (0.0-2.0) Sodium Level 144 mEQ/L (135-145) Potassium Level 3.2 mEQ/L (3.4-4.9) L Chloride Level 101 mEQ/L (98-107) Carbon Dioxide Level 24 mEQ/L (20-30) Anion Gap 19 (5-15) H Blood Urea Nitrogen 41 mg/dL (7-23) #H Creatinine 3.3 mg/dL (0.5-0.9) H Estimat Glomerular Filtration Rate 17.0 mL/min (>60) Glucose Level 98 mg/dL (74-106) Uric Acid 5.5 mg/dL (3.0-7.5) Calcium Level 8.6 mg/dL (8.6-10.2) Phosphorus Level 2.7 mg/dL (2.5-4.8) Magnesium Level 1.8 mg/dL (1.7-2.5) Total Bilirubin 0.5 mg/dL (0.0-1.2) Gamma Glutamyl Transpeptidase 19 U/L (5-36) Aspartate Amino Transf (AST/SGOT) 77 U/L (5-40) H Alanine Aminotransferase (ALT/SGPT) 255 U/L (3-33) H Alkaline Phosphatase 68 U/L (35-104) C-Reactive Protein, Quantitative 0.8 mg/dL (< 0.5) H Pro-B-Type Natriuretic Peptide 5231 pg/mL (0-125) H Total Protein 5.2 g/dL (6.6-8.7) L Albumin 3.1 g/dL (3.5-5.2) L Globulin 2.1 g/dL Albumin/Globulin Ratio 1.4 (1.0-2.7) Current Medications Medications (Trade) Dose Ordered Sig/Althea Route PRN Reason Start Time Stop Time Status Last Admin Dose Admin Acetaminophen (Tylenol) 650 mg Q4H PRN ORAL fever 05/18/17 20:00 06/17/17 19:59 Albuterol/ Ipratropium (DuoNeb 0.5-3(2.5)mg/3ml) 3 ml Q4H PRN HHN Shortness of Breath 05/19/17 13:15 05/24/17 13:14 Chlorhexidine Gluconate (Mesha-Hex 2%) 1 applic BEDTIME TOPIC 05/19/17 21:00 06/18/17 20:59 05/19/17 21:03 Dextrose (Dextrose 50%) STAT PRN IV Hypoglycemia 05/18/17 20:00 06/17/17 19:59 05/19/17 17:56 Docusate Sodium (Colace) 100 mg THREE TIMES A DAY ORAL 05/19/17 09:00 06/18/17 08:59 05/20/17 09:23 Epoetin Romeo (Procrit (for ESRD on dialysis)) 10,000 units MON-WED-FRI SUBQ 05/18/17 21:00 06/17/17 20:59 05/18/17 21:26 Insulin Aspart (NovoLOG) Q6HR SUBQ 05/19/17 00:00 06/18/17 00:00 05/19/17 00:02 Metoclopramide HCl (Reglan) 5 mg Q6H PRN IVP Nausea & Vomiting 05/18/17 19:45 06/17/17 19:44 Morphine Sulfate (Morphine Sulfate) 1 mg Q4H PRN IVP For Pain 4-10 05/18/17 20:00 05/25/17 19:59 Ondansetron HCl (Zofran) 4 mg Q6H PRN IVP Nausea & Vomiting 05/18/17 19:45 06/17/17 19:44 Pantoprazole/ Sodium Chloride (Protonix/Sodium Chloride) 250 ml @ 25 mls/hr Q10H IV 05/19/17 01:00 06/18/17 00:59 05/20/17 07:03 Polyethylene Glycol (Miralax) 17 gm HSPRN PRN ORAL Constipation 05/19/17 19:15 06/18/17 19:14 Quetiapine Fumarate (SEROquel) 12.5 mg BID ORAL 05/19/17 09:00 06/18/17 08:59 05/20/17 09:23 Sucralfate (Carafate) 1 gm FOUR TIMES A DAY ORAL 05/18/17 21:00 06/17/17 20:59 05/20/17 09:23 ENRICO LAI May 20, 2017 09:43
--- NOTE | 2017-05-20 10:26 | Pulmonology Progress Note ---
Assessment/Plan Assessment/Plan ASSESSMENT hemorrhagic shock GI bleeding acute toxic metabolic encephalopathy on chronic advanced dementia ( due to shock ) acute respiratory failure requiring intubation anemia of chronic renal disease acute anemia 2 to GI bleeding s/p blood transfusion ESRD, on HD DM PVD s/p R AKA acute DVT R SFV hx of vaginal bleeding PLAN OF C[employer] LEONIE status self extubated off pressors BP stable now awake, alert, pulse ox stable on RA stool OB + x 2 GI follows monitor HH, transfuse prn to keep Hgb above 7, s/p blood transfusion of PRBC and FFP s/p EGD and colon 05/14 with evidence of multiple gastric polyps, gastritis, colonoscopy with findings of internal hemorrhoids and diverticulosis s/p another EGD 05/16 + active bleeding from postpolypectomy site, s/p hemostasis and clip surgery follows for possible surgical intervention if bleeding not controlled on EPO nephro follows HD as per nephro started on diet as per nephro monitor renal parameters , lytes empiric abx, ID follows Venous Duplex + acute DVT R SFV IVC filter placement ordered 05/18, not done yet BS management with SS of insulin, HgbA1c -6.7 pain management hx of vaginal bleeding, prior US with thickened endometrium and complex left adnexal mass) Subjective Allergies: Coded Allergies: No Known Allergies (Unverified , 09/15/16) Subjective leukocytosis trending down, afebrile HH remain at baseline IVC filter placement pending Objective Last 24 Hour Vital Signs Date Time Temp Pulse Resp B/P Pulse Ox O2 Delivery O2 Flow Rate FiO2 05/20/17 08:07 97.0 84 20 145/78 100 Room Air 05/20/17 08:00 86 05/20/17 07:52 Room Air 05/20/17 07:52 100 Room Air 05/20/17 04:00 98.4 89 18 122/67 100 Room Air 05/20/17 04:00 93 05/20/17 00:00 92 05/20/17 00:00 98.6 91 18 124/67 100 Room Air 05/19/17 20:39 Room Air 05/19/17 20:38 97 Room Air 05/19/17 20:00 92 05/19/17 20:00 98.3 95 18 131/68 100 Room Air 05/19/17 16:00 97.7 76 20 110/66 96 Room Air 05/19/17 16:00 81 05/19/17 12:00 83 05/19/17 12:00 97.7 84 18 117/62 100 Room Air Intake and Output 05/19/17 05/20/17 19:00 07:00 Intake Total 415 ml 340 ml Output Total 900 ml 30 ml Balance -485 ml 310 ml IV Total 305 ml 280 ml Other 110 ml 60 ml Stool Total 30 ml Hemodialysis UF 900 ml # Bowel Movements 3 3 Objective General: awake, aphasic, bedridden AA female in NAD HEENT: atraumatic, normocephalic Lungs: clear Heart: HR/BP stable, SR on monitor, with frequent PVC, CL R subclavian, LUE AV fistula Abdomen: soft, non-tender Extremities: R AKA Laboratory Tests 05/20/17 05:15: White Blood Count 11.5H, Red Blood Count 3.18L, Hemoglobin 10.1L, Hematocrit 29.5L, Mean Corpuscular Volume 93, Mean Corpuscular Hemoglobin 31.7H, Mean Corpuscular Hemoglobin Concent 34.1, Red Cell Distribution Width 14.5, Platelet Count 225, Mean Platelet Volume 8.5, Neutrophils (%) (Auto) 79.0H, Lymphocytes ( %) (Auto) 12.2L, Monocytes (%) (Auto) 5.6, Eosinophils (%) (Auto) 2.4, Basophils (%) (Auto) 0.8, Sodium Level 144, Potassium Level 3.2L, Chloride Level 101, Carbon Dioxide Level 24, Anion Gap 19H, Blood Urea Nitrogen 41#H, Creatinine 3.3H, Estimat Glomerular Filtration Rate 17.0, Glucose Level 98, Uric Acid 5.5, Calcium Level 8.6, Phosphorus Level 2.7, Magnesium Level 1.8, Total Bilirubin 0.5, Gamma Glutamyl Transpeptidase 19, Aspartate Amino Transf ( AST/SGOT) 77H, Alanine Aminotransferase (ALT/SGPT) 255H, Alkaline Phosphatase 68 , C-Reactive Protein, Quantitative 0.8H, Pro-B-Type Natriuretic Peptide 5231H, Total Protein 5.2L, Albumin 3.1L, Globulin 2.1, Albumin/Globulin Ratio 1.4 Current Medications Medications (Trade) Dose Ordered Sig/Althea Route PRN Reason Start Time Stop Time Status Last Admin Dose Admin Acetaminophen (Tylenol) 650 mg Q4H PRN ORAL fever 05/18/17 20:00 06/17/17 19:59 Albuterol/ Ipratropium (DuoNeb 0.5-3(2.5)mg/3ml) 3 ml Q4H PRN HHN Shortness of Breath 05/19/17 13:15 05/24/17 13:14 Chlorhexidine Gluconate (Mesha-Hex 2%) 1 applic BEDTIME TOPIC 05/19/17 21:00 06/18/17 20:59 05/19/17 21:03 Dextrose (Dextrose 50%) STAT PRN IV Hypoglycemia 05/18/17 20:00 06/17/17 19:59 05/19/17 17:56 Docusate Sodium (Colace) 100 mg THREE TIMES A DAY ORAL 05/19/17 09:00 06/18/17 08:59 05/20/17 09:23 Epoetin Romeo (Procrit (for ESRD on dialysis)) 10,000 units SUN- SUBQ 05/18/17 21:00 06/17/17 20:59 05/18/17 21:26 Insulin Aspart (NovoLOG) Q6HR SUBQ 05/19/17 00:00 06/18/17 00:00 05/19/17 00:02 Metoclopramide HCl (Reglan) 5 mg Q6H PRN IVP Nausea & Vomiting 05/18/17 19:45 06/17/17 19:44 Morphine Sulfate (Morphine Sulfate) 1 mg Q4H PRN IVP For Pain 4-10 05/18/17 20:00 05/25/17 19:59 Ondansetron HCl (Zofran) 4 mg Q6H PRN IVP Nausea & Vomiting 05/18/17 19:45 06/17/17 19:44 Pantoprazole/ Sodium Chloride (Protonix/Sodium Chloride) 250 ml @ 25 mls/hr Q10H IV 05/19/17 01:00 06/18/17 00:59 05/20/17 07:03 Polyethylene Glycol (Miralax) 17 gm HSPRN PRN ORAL Constipation 05/19/17 19:15 06/18/17 19:14 Quetiapine Fumarate (SEROquel) 12.5 mg BID ORAL 05/19/17 09:00 06/18/17 08:59 05/20/17 09:23 Sucralfate (Carafate) 1 gm FOUR TIMES A DAY ORAL 05/18/17 21:00 06/17/17 20:59 05/20/17 09:23 Carlos ([facility])Kaia NP May 20, 2017 10:26
--- NOTE | 2017-05-20 11:06 | General Progress Note ---
Assessment/Plan Status: stable Assessment/Plan End-stage renal disease, on hemodialysis every Sunday, Sunday, and Sunday. Last dialysis was on Friday 05/11 Current issue: Massive GI bleed 1. Type 2 diabetes. 2. Hypertension. 3. Anemia of chronic renal disease. & Vaginal bleed 4. Hypercholesterolemia. 5. Peripheral vascular disease. 6. Alzheimer's dementia. 7. ?? LUNG MASS PAST SURGICAL HISTORY: Significant for: 1. Right [id number] amputation. 2. Open reduction internal fixation of the left femoral neck on 07/20/2016. Plan; HD 05/21 start renal diet On IV protonix ? transfusion? as needed Per GI - & Surg Monitor H&H - EPO Per consultants Subjective ROS Limited/Unobtainable: No Allergies: Coded Allergies: No Known Allergies (Unverified , 09/15/16) Objective Last 24 Hour Vital Signs Date Time Temp Pulse Resp B/P Pulse Ox O2 Delivery O2 Flow Rate FiO2 05/20/17 08:07 97.0 84 20 145/78 100 Room Air 05/20/17 08:00 86 05/20/17 07:52 Room Air 05/20/17 07:52 100 Room Air 05/20/17 04:00 98.4 89 18 122/67 100 Room Air 05/20/17 04:00 93 05/20/17 00:00 92 05/20/17 00:00 98.6 91 18 124/67 100 Room Air 05/19/17 20:39 Room Air 05/19/17 20:38 97 Room Air 05/19/17 20:00 92 05/19/17 20:00 98.3 95 18 131/68 100 Room Air 05/19/17 16:00 97.7 76 20 110/66 96 Room Air 05/19/17 16:00 81 05/19/17 12:00 83 05/19/17 12:00 97.7 84 18 117/62 100 Room Air Intake and Output 05/19/17 05/20/17 19:00 07:00 Intake Total 415 ml 340 ml Output Total 900 ml 30 ml Balance -485 ml 310 ml IV Total 305 ml 280 ml Other 110 ml 60 ml Stool Total 30 ml Hemodialysis UF 900 ml # Bowel Movements 3 3 Laboratory Tests 05/20/17 05:15: White Blood Count 11.5H, Red Blood Count 3.18L, Hemoglobin 10.1L, Hematocrit 29.5L, Mean Corpuscular Volume 93, Mean Corpuscular Hemoglobin 31.7H, Mean Corpuscular Hemoglobin Concent 34.1, Red Cell Distribution Width 14.5, Platelet Count 225, Mean Platelet Volume 8.5, Neutrophils (%) (Auto) 79.0H, Lymphocytes ( %) (Auto) 12.2L, Monocytes (%) (Auto) 5.6, Eosinophils (%) (Auto) 2.4, Basophils (%) (Auto) 0.8, Sodium Level 144, Potassium Level 3.2L, Chloride Level 101, Carbon Dioxide Level 24, Anion Gap 19H, Blood Urea Nitrogen 41#H, Creatinine 3.3H, Estimat Glomerular Filtration Rate 17.0, Glucose Level 98, Uric Acid 5.5, Calcium Level 8.6, Phosphorus Level 2.7, Magnesium Level 1.8, Total Bilirubin 0.5, Gamma Glutamyl Transpeptidase 19, Aspartate Amino Transf ( AST/SGOT) 77H, Alanine Aminotransferase (ALT/SGPT) 255H, Alkaline Phosphatase 68 , C-Reactive Protein, Quantitative 0.8H, Pro-B-Type Natriuretic Peptide 5231H, Total Protein 5.2L, Albumin 3.1L, Globulin 2.1, Albumin/Globulin Ratio 1.4 Height (Feet): 5 Height (Inches): 5.00 Weight (Pounds): 130 General Appearance: no apparent distress Objective massive bleed from rectum TAQUERIA JACOBSON May 20, 2017 11:06
[2017-05-20] MEDS ORDERED: KCl 10% 20 mEq/15ml liquid NG ONE (11:30)
[2017-05-20 12:17] VITALS: BP 147/75
--- NOTE | 2017-05-20 14:25 | General Progress Note ---
Progress Note Progress Note Afebrile, VSS. Pt denies abdominal pain, abdomen is soft. CBC is stable, no recurrence of GI bleeding. The EGD biopsies showed benign hyperplastic polyps. There is no need for surgical intervention. Praveen Villalba MD May 20, 2017 14:25
--- NOTE | 2017-05-20 14:35 | General Progress Note ---
Assessment/Plan Assessment/Plan Assessment GIB Anemia Leukocytosis Resp failure Rental failure, HD PVD, AKA polyps and diverticulosis Recommendations - Po diet - monitor CBC - PPI - HD - pain control - change PPI to PO Subjective Allergies: Coded Allergies: No Known Allergies (Unverified , 09/15/16) Subjective Feels OK no abdominal complaints above noted WBC declining Objective Last 24 Hour Vital Signs Date Time Temp Pulse Resp B/P Pulse Ox O2 Delivery O2 Flow Rate FiO2 05/20/17 12:17 97.5 89 18 147/75 100 Room Air 05/20/17 12:00 93 05/20/17 08:07 97.0 84 20 145/78 100 Room Air 05/20/17 08:00 86 05/20/17 07:52 Room Air 05/20/17 07:52 100 Room Air 05/20/17 04:00 98.4 89 18 122/67 100 Room Air 05/20/17 04:00 93 05/20/17 00:00 92 05/20/17 00:00 98.6 91 18 124/67 100 Room Air 05/19/17 20:39 Room Air 05/19/17 20:38 97 Room Air 05/19/17 20:00 92 05/19/17 20:00 98.3 95 18 131/68 100 Room Air 05/19/17 16:00 97.7 76 20 110/66 96 Room Air 05/19/17 16:00 81 Intake and Output 05/19/17 05/20/17 19:00 07:00 Intake Total 415 ml 340 ml Output Total 900 ml 30 ml Balance -485 ml 310 ml IV Total 305 ml 280 ml Other 110 ml 60 ml Stool Total 30 ml Hemodialysis UF 900 ml # Bowel Movements 3 3 Laboratory Tests 05/20/17 05:15: White Blood Count 11.5H, Red Blood Count 3.18L, Hemoglobin 10.1L, Hematocrit 29.5L, Mean Corpuscular Volume 93, Mean Corpuscular Hemoglobin 31.7H, Mean Corpuscular Hemoglobin Concent 34.1, Red Cell Distribution Width 14.5, Platelet Count 225, Mean Platelet Volume 8.5, Neutrophils (%) (Auto) 79.0H, Lymphocytes ( %) (Auto) 12.2L, Monocytes (%) (Auto) 5.6, Eosinophils (%) (Auto) 2.4, Basophils (%) (Auto) 0.8, Sodium Level 144, Potassium Level 3.2L, Chloride Level 101, Carbon Dioxide Level 24, Anion Gap 19H, Blood Urea Nitrogen 41#H, Creatinine 3.3H, Estimat Glomerular Filtration Rate 17.0, Glucose Level 98, Uric Acid 5.5, Calcium Level 8.6, Phosphorus Level 2.7, Magnesium Level 1.8, Total Bilirubin 0.5, Gamma Glutamyl Transpeptidase 19, Aspartate Amino Transf ( AST/SGOT) 77H, Alanine Aminotransferase (ALT/SGPT) 255H, Alkaline Phosphatase 68 , C-Reactive Protein, Quantitative 0.8H, Pro-B-Type Natriuretic Peptide 5231H, Total Protein 5.2L, Albumin 3.1L, Globulin 2.1, Albumin/Globulin Ratio 1.4 Height (Feet): 5 Height (Inches): 5.00 Weight (Pounds): 130 Objective Thin AA woman NCAT supple CTA RR soft NT ND (+) R AKA non focal JIMI BONDS May 20, 2017 14:35
[2017-05-20 16:00] VITALS: BP 106/57
[2017-05-20] MEDS: Morphine Sulfate 2mg/ml Inj IVP PRN (17:11)
[2017-05-20] MEDS ORDERED: NS 275ml ONE (17:13)
[2017-05-20 20:00] VITALS: BP 115/60
[2017-05-20] MEDS: Dyna-Hex 2% Top Sol 8oz TOPIC SCH (20:28)
[2017-05-21] VITALS: BP 121/62
[2017-05-21] MEDS: NovoLOG Insulin Flexpen SUBQ SCH ×5 (00:01→20:26)
[2017-05-21] MEDS: Morphine Sulfate 2mg/ml Inj IVP PRN ×2 (00:24→06:45)
[2017-05-21 04:00] VITALS: BP 135/74
[2017-05-21 08:00] VITALS: BP 146/82
[2017-05-21] MEDS: Docusate 100mg cap ORAL SCH (09:09)
[2017-05-21] MEDS: Sucralfate 1gm tab ORAL SCH ×4 (09:13→20:26)
[2017-05-21] MEDS ORDERED: Docusate 100mg/10ml Liq ORAL SCH (09:30)
--- NOTE | 2017-05-21 11:08 | General Progress Note ---
Assessment/Plan Status: stable Assessment/Plan End-stage renal disease, on hemodialysis every Sunday, Sunday, and Sunday. Last dialysis was on Friday 05/11 Current issue: Massive GI bleed 1. Type 2 diabetes. 2. Hypertension. 3. Anemia of chronic renal disease. & Vaginal bleed 4. Hypercholesterolemia. 5. Peripheral vascular disease. 6. Alzheimer's dementia. 7. ?? LUNG MASS PAST SURGICAL HISTORY: Significant for: 1. Right [id number] amputation. 2. Open reduction internal fixation of the left femoral neck on 07/20/2016. Plan; HD 05/21- No labs today- On renal diet ? transfusion? as needed Per GI - & Surg Monitor H&H - EPO Per consultants Subjective ROS Limited/Unobtainable: No Constitutional: Reports: malaise Allergies: Coded Allergies: No Known Allergies (Unverified , 09/15/16) Objective Last 24 Hour Vital Signs Date Time Temp Pulse Resp B/P Pulse Ox O2 Delivery O2 Flow Rate FiO2 05/21/17 08:00 97.0 96 18 146/82 94 Room Air 05/21/17 07:40 88 05/21/17 04:00 94 05/21/17 04:00 97.3 94 18 135/74 97 Room Air 05/21/17 00:00 98.4 98 18 121/62 100 Room Air 05/21/17 00:00 96 05/20/17 20:00 98 05/20/17 20:00 98.2 98 20 115/60 100 Room Air 05/20/17 17:40 97.9 05/20/17 16:00 94 05/20/17 16:00 97.9 93 20 106/57 98 Room Air 05/20/17 12:17 97.5 89 18 147/75 100 Room Air 05/20/17 12:00 93 Intake and Output 05/20/17 05/21/17 19:00 07:00 Intake Total 517 ml Output Total 10 ml 100 ml Balance 507 ml -100 ml Intake Oral 220 ml IV Total 297 ml Stool Total 10 ml 100 ml # Voids 4 2 Height (Feet): 5 Height (Inches): 5.00 Weight (Pounds): 130 General Appearance: no apparent distress Objective massive bleed from rectum TAQUERIA JACOBSON May 21, 2017 11:08
[2017-05-21 11:27] VITALS: BP 123/70
[2017-05-21] MEDS ORDERED: NovoLOG Insulin Flexpen SUBQ SCH (11:30)
[2017-05-21] MEDS ORDERED: Morphine Sulfate 2mg/ml Inj IVP PRN (12:00)
--- NOTE | 2017-05-21 12:47 | Pulmonology Progress Note ---
Assessment/Plan Problems: (1) Acute encephalopathy (2) Anemia (3) ESRD (end stage renal disease) on dialysis (4) S/P AKA (above knee amputation) unilateral (5) Diabetes mellitus Assessment/Plan h/h stabel HD by nephrology sliding scale check electrolytes on phosphate binders + epogen DVT in right leg, pt son wants to think about the IVC filter Subjective ROS Limited/Unobtainable: No HEENT: Repors: no symptoms Respiratory: Reports: no symptoms Allergies: Coded Allergies: No Known Allergies (Unverified , 09/15/16) Objective Last 24 Hour Vital Signs Date Time Temp Pulse Resp B/P Pulse Ox O2 Delivery O2 Flow Rate FiO2 05/21/17 11:27 97.5 95 18 123/70 96 Room Air 05/21/17 08:00 97.0 96 18 146/82 94 Room Air 05/21/17 07:40 88 05/21/17 04:00 94 05/21/17 04:00 97.3 94 18 135/74 97 Room Air 05/21/17 00:00 98.4 98 18 121/62 100 Room Air 05/21/17 00:00 96 05/20/17 20:00 98 05/20/17 20:00 98.2 98 20 115/60 100 Room Air 05/20/17 17:40 97.9 05/20/17 16:00 94 05/20/17 16:00 97.9 93 20 106/57 98 Room Air Intake and Output 05/20/17 05/21/17 19:00 07:00 Intake Total 517 ml Output Total 10 ml 100 ml Balance 507 ml -100 ml Intake Oral 220 ml IV Total 297 ml Stool Total 10 ml 100 ml # Voids 4 2 Objective General Appearance: WD/WN HEENT: normocephalic Respiratory/Chest: chest wall non-tender, lungs clear Cardiovascular: normal peripheral pulses, normal rate Abdomen: normal bowel sounds, soft, non tender Extremities: no cyanosis, other - effusion in both knees Skin: no rash Current Medications Medications (Trade) Dose Ordered Sig/Althea Route PRN Reason Start Time Stop Time Status Last Admin Dose Admin Acetaminophen (Tylenol) 650 mg Q4H PRN ORAL fever 05/21/17 12:00 06/20/17 11:59 Albuterol/ Ipratropium (DuoNeb 0.5-3(2.5)mg/3ml) 3 ml Q4H PRN HHN Shortness of Breath 05/21/17 13:15 05/26/17 13:14 Chlorhexidine Gluconate (Mesha-Hex 2%) 1 applic BEDTIME TOPIC 05/21/17 21:00 06/20/17 20:59 Dextrose (Dextrose 50%) STAT PRN IV Hypoglycemia 05/21/17 20:00 06/20/17 19:59 Docusate Sodium (Colace) 100 mg THREE TIMES A DAY ORAL 05/21/17 13:00 06/20/17 12:59 Epoetin Romeo (Procrit (for ESRD on dialysis)) 10,000 units SUN-SUN-SUN SUBQ 05/21/17 21:00 06/20/17 20:59 Insulin Aspart (NovoLOG) AC+HS SUBQ 05/21/17 11:30 06/20/17 11:29 Lansoprazole (Prevacid) 30 mg DAILY ORAL 05/22/17 09:00 06/21/17 08:59 Metoclopramide HCl (Reglan) 5 mg Q6H PRN IVP Nausea & Vomiting 05/21/17 13:45 06/20/17 13:44 Morphine Sulfate (Morphine Sulfate) 1 mg Q4H PRN IVP For Pain 4-10 05/21/17 12:00 05/28/17 11:59 Ondansetron HCl (Zofran) 4 mg Q6H PRN IVP Nausea & Vomiting 05/21/17 13:45 06/20/17 13:44 Polyethylene Glycol (Miralax) 17 gm HSPRN PRN ORAL Constipation 05/21/17 19:15 06/20/17 19:14 Quetiapine Fumarate (SEROquel) 12.5 mg BID ORAL 05/21/17 18:00 06/20/17 17:59 Sucralfate (Carafate) 1 gm FOUR TIMES A DAY ORAL 05/21/17 13:00 06/20/17 12:59 IHSAN SILVA May 21, 2017 12:47
[2017-05-21] MEDS: Docusate 100mg/10ml Liq ORAL SCH ×2 (13:00→18:24)
--- NOTE | 2017-05-21 13:06 | GI Progress Note ---
Assessment/Plan Problems: (1) Acute encephalopathy ICD Codes: G93.40 - Encephalopathy, unspecified SNOMED: 5069238 (2) Anemia ICD Codes: D64.9 - Anemia, unspecified SNOMED: 005348629 (3) GI bleed ICD Codes: K92.2 - Gastrointestinal hemorrhage, unspecified SNOMED: 53258561 Qualifiers: Qualified Codes: K92.2 - Gastrointestinal hemorrhage, unspecified (4) Diabetes mellitus ICD Codes: E11.9 - Type 2 diabetes mellitus without complications SNOMED: 16063087 Qualifiers: Qualified Codes: E13.8 - Other specified diabetes mellitus with unspecified complications; Z79.4 - residential (current) use of insulin (5) Sepsis ICD Codes: A41.9 - Sepsis, unspecified organism SNOMED: 13076884 (6) Gastric polyp ICD Codes: K31.7 - Polyp of stomach and duodenum SNOMED: 14450703 Status: stable, progressing Status Narrative Discussed with Dr. Herrera. Assessment/Plan S/P EGD / Colonoscopy - SUMMARY OF FINDINGS: 1. Multiple gastric polyps, see above for details. 2. Gastritis. 3. Internal hemorrhoids. 4. Diverticulosis. 5. Two colonic polyps removed see above for details. pt transferred to ICU due to drop in Hgb S/P EGD x2 with 3 clips on 05/17/17. RECOMMENDATIONS: fu surgical consult >> exploratory laparotomy with gastrotomy and over-sewing of the bleeding site if patient continues to bleed >> defer for now PO diet monitor H&H, transfuse prn protonix PO + carafate fu labs Subjective Subjective feels well Objective Last 24 Hour Vital Signs Date Time Temp Pulse Resp B/P Pulse Ox O2 Delivery O2 Flow Rate FiO2 05/21/17 11:27 97.5 95 18 123/70 96 Room Air 05/21/17 08:00 97.0 96 18 146/82 94 Room Air 05/21/17 07:40 88 05/21/17 04:00 94 05/21/17 04:00 97.3 94 18 135/74 97 Room Air 05/21/17 00:00 98.4 98 18 121/62 100 Room Air 05/21/17 00:00 96 05/20/17 20:00 98 05/20/17 20:00 98.2 98 20 115/60 100 Room Air 05/20/17 17:40 97.9 05/20/17 16:00 94 05/20/17 16:00 97.9 93 20 106/57 98 Room Air Intake and Output 05/20/17 05/21/17 19:00 07:00 Intake Total 517 ml Output Total 10 ml 100 ml Balance 507 ml -100 ml Intake Oral 220 ml IV Total 297 ml Stool Total 10 ml 100 ml # Voids 4 2 Height (Feet): 5 Height (Inches): 5.00 Weight (Pounds): 130 General Appearance: no apparent distress, alert Cardiovascular: normal rate Respiratory/Chest: normal breath sounds, no respiratory distress Abdominal Exam: normal bowel sounds, non tender, soft Crissy Simpson N.P. May 21, 2017 13:06
[2017-05-21] MEDS ORDERED: DuoNeb 0.5-3(2.5)mg/3ml neb HHN PRN (13:15)
[2017-05-21] MEDS ORDERED: Metoclopramide 10mg/2ml Inj IVP PRN (13:45)
[2017-05-21 15:27] VITALS: BP 128/68
[2017-05-21] MEDS ORDERED: Miralax 17gm pkt ORAL PRN (19:15)
--- NOTE | 2017-05-21 19:29 | Infectious Diseases Prog Note ---
Assessment/Plan Assessment/Plan ASSESSMENT: 67-year-old female with: // Hx of C.difficile // hx of UTI - UCx <10K ESBL(+) E.coli SP Rx - h/o VSE.faecalis // Lt heel decubitus not grossly infected // leukocytosis ( 2/2 bleeding ) , SP // HypotTN 2/2 to bleeding // GI bleed and FOBT+ anemia SP PRBCs - SP EGD/colonoscopy 05/14: Multiple gastric polyps; Gastritis; Internal hemorrhoids; Diverticulosis. path T Adenoma // Hx of Vaginal bleed, possible endometrial CA - US: thickened endometrium and 8.5 cm complex left adnexal mass. // ESRD / HD // Advanced dementia // Acute and chronic BLE DVTs // DM2 - HbA1c 6.7% // PVD SP right AKA // [facility] resident // MRSA colonized // NKDA // Full Code PLAN: - monitor pt off of AB Rx ( 7 2 SP IV Zosyn d# 5 ) ( 01/03 SP amikacin d# 4, zosyn d# 3 ) ( 01/02 SP IV vancomycin d# 3 ) - monitor CBC, temperatures - monitor BMP. - monitor CXR - wound care Subjective Allergies: Coded Allergies: No Known Allergies (Unverified , 09/15/16) Subjective afebrile Objective Vital Signs Last 24 Hour Vital Signs Date Time Temp Pulse Resp B/P Pulse Ox O2 Delivery O2 Flow Rate FiO2 05/21/17 18:38 Room Air 15.0 100 05/21/17 16:00 88 05/21/17 15:30 Room Air 15.0 100 05/21/17 15:27 97.3 87 18 128/68 95 Room Air 05/21/17 12:00 92 05/21/17 11:27 97.5 95 18 123/70 96 Room Air 05/21/17 08:00 97.0 96 18 146/82 94 Room Air 05/21/17 07:40 88 05/21/17 04:00 94 05/21/17 04:00 97.3 94 18 135/74 97 Room Air 05/21/17 00:00 98.4 98 18 121/62 100 Room Air 05/21/17 00:00 96 05/20/17 20:00 98 05/20/17 20:00 98.2 98 20 115/60 100 Room Air Height (Feet): 5 Height (Inches): 5.00 Weight (Pounds): 130 HEENT: atraumatic Respiratory/Chest: no accessory muscle use Cardiovascular: no gallop/murmur Abdomen: no organomegaly Current Medications Medications (Trade) Dose Ordered Sig/Althea Route PRN Reason Start Time Stop Time Status Last Admin Dose Admin Acetaminophen (Tylenol) 650 mg Q4H PRN ORAL fever 05/21/17 12:00 06/20/17 11:59 Albuterol/ Ipratropium (DuoNeb 0.5-3(2.5)mg/3ml) 3 ml Q4H PRN HHN Shortness of Breath 05/21/17 13:15 05/26/17 13:14 Chlorhexidine Gluconate (Mesha-Hex 2%) 1 applic BEDTIME TOPIC 05/21/17 21:00 06/20/17 20:59 Dextrose (Dextrose 50%) STAT PRN IV Hypoglycemia 05/21/17 20:00 06/20/17 19:59 Docusate Sodium (Colace) 100 mg THREE TIMES A DAY ORAL 05/21/17 13:00 06/20/17 12:59 05/21/17 18:24 Epoetin Romeo (Procrit (for ESRD on dialysis)) 10,000 units SUN-SUN-SUN SUBQ 05/21/17 21:00 06/20/17 20:59 Insulin Aspart (NovoLOG) AC+HS SUBQ 05/21/17 11:30 06/20/17 11:29 05/21/17 18:27 Lansoprazole (Prevacid) 30 mg DAILY ORAL 05/22/17 09:00 06/21/17 08:59 Metoclopramide HCl (Reglan) 5 mg Q6H PRN IVP Nausea & Vomiting 05/21/17 13:45 06/20/17 13:44 Morphine Sulfate (Morphine Sulfate) 1 mg Q4H PRN IVP For Pain 4-10 05/21/17 12:00 05/28/17 11:59 Ondansetron HCl (Zofran) 4 mg Q6H PRN IVP Nausea & Vomiting 05/21/17 13:45 06/20/17 13:44 Polyethylene Glycol (Miralax) 17 gm HSPRN PRN ORAL Constipation 05/21/17 19:15 06/20/17 19:14 Quetiapine Fumarate (SEROquel) 12.5 mg BID ORAL 05/21/17 18:00 06/20/17 17:59 05/21/17 18:25 Sucralfate (Carafate) 1 gm FOUR TIMES A DAY ORAL 05/21/17 13:00 06/20/17 12:59 05/21/17 18:25 NANCY QUICK M.D. May 21, 2017 19:29
[2017-05-21 20:00] VITALS: BP 108/52
[2017-05-21] MEDS: Dyna-Hex 2% Top Sol 8oz TOPIC SCH (20:25)
[2017-05-21] MEDS: Epogen (for ESRD on dialysis) SUBQ SCH (20:26)
[2017-05-22 00:03] VITALS: BP 123/64
[2017-05-22 04:20] VITALS: BP 138/93
--- NOTE | 2017-05-22 05:52 | General Progress Note ---
Assessment/Plan Problem List: (1) Anemia ICD Codes: D64.9 - Anemia, unspecified SNOMED: 936931277 (2) ESRD (end stage renal disease) on dialysis ICD Codes: N18.6 - End stage renal disease; Z99.2 - Dependence on renal dialysis SNOMED: 831412451 (3) GI bleed ICD Codes: K92.2 - Gastrointestinal hemorrhage, unspecified SNOMED: 23504524 Qualifiers: Qualified Codes: K92.2 - Gastrointestinal hemorrhage, unspecified (4) Diabetes mellitus ICD Codes: E11.9 - Type 2 diabetes mellitus without complications SNOMED: 65008374 Qualifiers: Qualified Codes: E13.8 - Other specified diabetes mellitus with unspecified complications; Z79.4 - senior care (current) use of insulin (5) S/P AKA (above knee amputation) unilateral ICD Codes: Z89.619 - Acquired absence of unspecified leg above knee SNOMED: 82055194, 89736384, 097586735 (6) Gastric polyp ICD Codes: K31.7 - Polyp of stomach and duodenum SNOMED: 01648485 (7) Hemorrhagic shock SNOMED: 688271 (8) ESRF (end stage renal failure) ICD Codes: N18.6 - End stage renal disease SNOMED: 19015020 Assessment/Plan monitor H&H fu path renal care renal diet Subjective ROS Limited/Unobtainable: No Allergies: Coded Allergies: No Known Allergies (Unverified , 09/15/16) Objective Last 24 Hour Vital Signs Date Time Temp Pulse Resp B/P Pulse Ox O2 Delivery O2 Flow Rate FiO2 05/22/17 04:20 98.5 91 18 138/93 95 Room Air 05/22/17 04:00 106 05/22/17 00:03 98.6 93 19 123/64 96 Room Air 05/22/17 00:00 92 05/21/17 20:00 89 05/21/17 20:00 98.2 89 18 108/52 93 Room Air 05/21/17 19:30 Room Air 21 05/21/17 19:30 98 Room Air 21 05/21/17 18:38 Room Air 15.0 100 05/21/17 16:00 88 05/21/17 15:30 Room Air 15.0 100 05/21/17 15:27 97.3 87 18 128/68 95 Room Air 05/21/17 12:00 92 05/21/17 11:27 97.5 95 18 123/70 96 Room Air 05/21/17 08:00 97.0 96 18 146/82 94 Room Air 05/21/17 07:40 88 Intake and Output 05/21/17 05/22/17 19:00 07:00 Intake Total 520 ml Output Total 1200 ml Balance -680 ml Intake Oral 520 ml Hemodialysis UF 1200 ml Height (Feet): 5 Height (Inches): 5.00 Weight (Pounds): 130 General Appearance: no apparent distress EENT: normal ENT inspection Neck: supple Cardiovascular: normal rate Respiratory/Chest: decreased breath sounds Abdomen: normal bowel sounds, non tender, soft Extremities: non-tender TIGRE HERNANDEZ May 22, 2017 05:52
[2017-05-22] MEDS: NovoLOG Insulin Flexpen SUBQ SCH ×4 (06:04→20:50)
[2017-05-22 07:09] LABS: BASOPHILS % (AUTO) 0.9 % (0.0-2.0); EOSINOPHILS % (AUTO) 4.2 % (0.0-3.0); LYMPHOCYTES % (AUTO) 18.5 % (20.0-45.0); MEAN CORPUSCULAR HEMOGLOBIN 32.2 PG (27.0-31.0); MEAN CORPUSCULAR VOLUME 95 FL (80-99); MEAN PLATELET VOLUME 8.8 FL (6.5-10.1); MONOCYTES % (AUTO) 7.8 % (1.0-10.0); NEUTROPHILS % (AUTO) 68.7 % (45.0-75.0); PLATELET COUNT 257 K/UL (150-450); RED BLOOD COUNT 3.08 M/UL (4.20-5.40); RED CELL DISTRIBUTION WIDTH 17.2 % (11.6-14.8); WHITE BLOOD COUNT 7.8 K/UL (4.8-10.8)
[2017-05-22 07:23] LABS: ALBUMIN/GLOBULIN RATIO 1.4 (1.0-2.7); CALCIUM 8.6 mg/dL (8.6-10.2); CREATININE 2.6 mg/dL (0.5-0.9); GLOMERULAR FILTRATION RATE 22.4 mL/min (>60); MAGNESIUM 1.6 mg/dL (1.7-2.5); PHOSPHORUS 2.4 mg/dL (2.5-4.8); POTASSIUM 3.3 mEQ/L (3.4-4.9); TOTAL PROTEIN 5.1 g/dL (6.6-8.7); URIC ACID 4.1 mg/dL (3.0-7.5)
[2017-05-22 08:00] VITALS: BP 130/53
[2017-05-22] MEDS: Sucralfate 1gm tab ORAL SCH ×4 (09:09→20:50)
[2017-05-22] MEDS: Docusate 100mg/10ml Liq ORAL SCH ×3 (09:09→18:15)
--- NOTE | 2017-05-22 09:33 | Pulmonology Progress Note ---
Assessment/Plan Problems: (1) Acute encephalopathy (2) Anemia (3) ESRD (end stage renal disease) on dialysis (4) S/P AKA (above knee amputation) unilateral (5) Diabetes mellitus Assessment/Plan one episode of Vtach ( cardiology called) h/h stabel HD by nephrology sliding scale check electrolytes DVT in right leg, pt son wants to think about the IVC filter Subjective ROS Limited/Unobtainable: No Constitutional: Reports: no symptoms HEENT: Repors: no symptoms Respiratory: Reports: no symptoms Cardiovascular: Reports: no symptoms Allergies: Coded Allergies: No Known Allergies (Unverified , 09/15/16) Objective Last 24 Hour Vital Signs Date Time Temp Pulse Resp B/P Pulse Ox O2 Delivery O2 Flow Rate FiO2 05/22/17 08:19 96 Room Air 21 05/22/17 08:19 Room Air 05/22/17 04:20 98.5 91 18 138/93 95 Room Air 05/22/17 04:00 106 05/22/17 00:03 98.6 93 19 123/64 96 Room Air 05/22/17 00:00 92 05/21/17 20:00 89 05/21/17 20:00 98.2 89 18 108/52 93 Room Air 05/21/17 19:30 Room Air 21 05/21/17 19:30 98 Room Air 21 05/21/17 18:38 Room Air 15.0 100 05/21/17 16:00 88 05/21/17 15:30 Room Air 15.0 100 05/21/17 15:27 97.3 87 18 128/68 95 Room Air 05/21/17 12:00 92 05/21/17 11:27 97.5 95 18 123/70 96 Room Air Intake and Output 05/21/17 05/22/17 19:00 07:00 Intake Total 520 ml Output Total 1200 ml Balance -680 ml Intake Oral 520 ml Hemodialysis UF 1200 ml # Voids 1 Objective General Appearance: WD/WN HEENT: normocephalic Respiratory/Chest: chest wall non-tender, lungs clear Cardiovascular: normal peripheral pulses, normal rate Abdomen: normal bowel sounds, soft, non tender Extremities: no cyanosis, other - effusion in both knees Skin: no rash Laboratory Tests 05/22/17 06:10: White Blood Count 7.8, Red Blood Count 3.08L, Hemoglobin 9.9L, Hematocrit 29.2L , Mean Corpuscular Volume 95, Mean Corpuscular Hemoglobin 32.2H, Mean Corpuscular Hemoglobin Concent 34.0, Red Cell Distribution Width 17.2H, Platelet Count 257, Mean Platelet Volume 8.8, Neutrophils (%) (Auto) 68.7, Lymphocytes (%) (Auto) 18.5L, Monocytes (%) (Auto) 7.8, Eosinophils (%) (Auto) 4.2H, Basophils (%) (Auto) 0.9, Sodium Level 141, Potassium Level 3.3L, Chloride Level 100, Carbon Dioxide Level 32H, Anion Gap 9, Blood Urea Nitrogen 18, Creatinine 2.6H, Estimat Glomerular Filtration Rate 22.4, Glucose Level 144H , Uric Acid 4.1, Calcium Level 8.6, Phosphorus Level 2.4L, Magnesium Level 1.6L , Total Bilirubin 0.3, Aspartate Amino Transf (AST/SGOT) 19, Alanine Aminotransferase (ALT/SGPT) 111H, Alkaline Phosphatase 74, Total Protein 5.1L, Albumin 3.0L, Globulin 2.1, Albumin/Globulin Ratio 1.4 Current Medications Medications (Trade) Dose Ordered Sig/Althea Route PRN Reason Start Time Stop Time Status Last Admin Dose Admin Acetaminophen (Tylenol) 650 mg Q4H PRN ORAL fever 05/21/17 12:00 06/20/17 11:59 Albuterol/ Ipratropium (DuoNeb 0.5-3(2.5)mg/3ml) 3 ml Q4H PRN HHN Shortness of Breath 05/21/17 13:15 05/26/17 13:14 Chlorhexidine Gluconate (Mesha-Hex 2%) 1 applic BEDTIME TOPIC 05/21/17 21:00 06/20/17 20:59 05/21/17 20:25 Dextrose (Dextrose 50%) STAT PRN IV Hypoglycemia 05/21/17 20:00 06/20/17 19:59 Docusate Sodium (Colace) 100 mg THREE TIMES A DAY ORAL 05/21/17 13:00 06/20/17 12:59 05/22/17 09:09 Epoetin Romeo (Procrit (for ESRD on dialysis)) 10,000 units SUN-SUN-SUN SUBQ 05/21/17 21:00 06/20/17 20:59 05/21/17 20:26 Insulin Aspart (NovoLOG) AC+HS SUBQ 05/21/17 11:30 06/20/17 11:29 05/22/17 06:04 Lansoprazole (Prevacid) 30 mg DAILY ORAL 05/22/17 09:00 06/21/17 08:59 05/22/17 09:08 Metoclopramide HCl (Reglan) 5 mg Q6H PRN IVP Nausea & Vomiting 05/21/17 13:45 06/20/17 13:44 Morphine Sulfate (Morphine Sulfate) 1 mg Q4H PRN IVP For Pain -05/21/17 12:00 05/28/17 11:59 05/22/17 02:46 Ondansetron HCl (Zofran) 4 mg Q6H PRN IVP Nausea & Vomiting 05/21/17 13:45 06/20/17 13:44 Polyethylene Glycol (Miralax) 17 gm HSPRN PRN ORAL Constipation 05/21/17 19:15 06/20/17 19:14 Quetiapine Fumarate (SEROquel) 12.5 mg BID ORAL 05/21/17 18:00 06/20/17 17:59 05/22/17 09:08 Sucralfate (Carafate) 1 gm FOUR TIMES A DAY ORAL 05/21/17 13:00 06/20/17 12:59 05/22/17 09:09 IHSAN SILVA May 22, 2017 09:33
--- NOTE | 2017-05-22 11:11 | General Progress Note ---
Progress Note Progress Note Afebrile, VSS. Pt is awake, comfortable, denies nausea or abdominal pain. CBC is stable, no evidence of recurrent GI bleeding. We will follow peripherally, call us if any other surgical issues arise. Praveen Villalba MD May 22, 2017 11:11
--- NOTE | 2017-05-22 11:50 | Infectious Diseases Prog Note ---
Assessment/Plan Assessment/Plan ASSESSMENT: 67-year-old female with: // Hx of C.difficile // hx of UTI - UCx <10K ESBL(+) E.coli SP Rx - h/o VSE.faecalis // Lt heel decubitus not grossly infected // leukocytosis ( 2/2 bleeding ) , SP // HypotTN 2/2 to bleeding // GI bleed and FOBT+ anemia SP PRBCs - SP EGD/colonoscopy 05/14: Multiple gastric polyps; Gastritis; Internal hemorrhoids; Diverticulosis. path T Adenoma // Hx of Vaginal bleed, possible endometrial CA - US: thickened endometrium and 8.5 cm complex left adnexal mass. // ESRD / HD // Advanced dementia // Acute and chronic BLE DVTs // DM2 - HbA1c 6.7% // PVD SP right AKA // [place] resident // MRSA colonized // NKDA // Full Code PLAN: - monitor pt off of AB Rx ( 7 2 SP IV Zosyn d# 5 ) ( 01/03 SP amikacin d# 4, zosyn d# 3 ) ( 01/02 SP IV vancomycin d# 3 ) - monitor CBC, temperatures - monitor BMP. - monitor CXR - wound care Subjective Constitutional: Denies: anorexia, chills, drenching sweats, fatigue, fever, no symptoms, other Allergies: Coded Allergies: No Known Allergies (Unverified , 09/15/16) Subjective comfortable Objective Vital Signs Last 24 Hour Vital Signs Date Time Temp Pulse Resp B/P Pulse Ox O2 Delivery O2 Flow Rate FiO2 05/22/17 08:19 96 Room Air 21 05/22/17 08:19 Room Air 05/22/17 08:00 98.4 95 18 130/53 96 Room Air 05/22/17 08:00 97 05/22/17 04:20 98.5 91 18 138/93 95 Room Air 05/22/17 04:00 106 05/22/17 00:03 98.6 93 19 123/64 96 Room Air 05/22/17 00:00 92 05/21/17 20:00 89 05/21/17 20:00 98.2 89 18 108/52 93 Room Air 05/21/17 19:30 Room Air 21 05/21/17 19:30 98 Room Air 05/21/17 18:38 Room Air 15.0 100 05/21/17 16:00 88 05/21/17 15:30 Room Air 15.0 100 05/21/17 15:27 97.3 87 18 128/68 95 Room Air 05/21/17 12:00 92 Height (Feet): 5 Height (Inches): 5.00 Weight (Pounds): 130 HEENT: anicteric Respiratory/Chest: no accessory muscle use Cardiovascular: regularly irregular Abdomen: no mass Laboratory Tests Test 05/22/17 06:10 White Blood Count 7.8 K/UL (4.8-10.8) Red Blood Count 3.08 M/UL (4.20-5.40) L Hemoglobin 9.9 G/DL (12.0-16.0) L Hematocrit 29.2 % (37.0-47.0) L Mean Corpuscular Volume 95 FL (80-99) Mean Corpuscular Hemoglobin 32.2 PG (27.0-31.0) H Mean Corpuscular Hemoglobin Concent 34.0 G/DL (32.0-36.0) Red Cell Distribution Width 17.2 % (11.6-14.8) H Platelet Count 257 K/UL (150-450) Mean Platelet Volume 8.8 FL (6.5-10.1) Neutrophils (%) (Auto) 68.7 % (45.0-75.0) Lymphocytes (%) (Auto) 18.5 % (20.0-45.0) L Monocytes (%) (Auto) 7.8 % (1.0-10.0) Eosinophils (%) (Auto) 4.2 % (0.0-3.0) H Basophils (%) (Auto) 0.9 % (0.0-2.0) Sodium Level 141 mEQ/L (135-145) Potassium Level 3.3 mEQ/L (3.4-4.9) L Chloride Level 100 mEQ/L (98-107) Carbon Dioxide Level 32 mEQ/L (20-30) H Anion Gap 9 (5-15) Blood Urea Nitrogen 18 mg/dL (7-23) Creatinine 2.6 mg/dL (0.5-0.9) H Estimat Glomerular Filtration Rate 22.4 mL/min (>60) Glucose Level 144 mg/dL (74-106) H Uric Acid 4.1 mg/dL (3.0-7.5) Calcium Level 8.6 mg/dL (8.6-10.2) Phosphorus Level 2.4 mg/dL (2.5-4.8) L Magnesium Level 1.6 mg/dL (1.7-2.5) L Total Bilirubin 0.3 mg/dL (0.0-1.2) Aspartate Amino Transf (AST/SGOT) 19 U/L (5-40) Alanine Aminotransferase (ALT/SGPT) 111 U/L (3-33) H Alkaline Phosphatase 74 U/L (35-104) Total Protein 5.1 g/dL (6.6-8.7) L Albumin 3.0 g/dL (3.5-5.2) L Globulin 2.1 g/dL Albumin/Globulin Ratio 1.4 (1.0-2.7) Current Medications Medications (Trade) Dose Ordered Sig/Althea Route PRN Reason Start Time Stop Time Status Last Admin Dose Admin Acetaminophen (Tylenol) 650 mg Q4H PRN ORAL fever 05/21/17 12:00 06/20/17 11:59 Albuterol/ Ipratropium (DuoNeb 0.5-3(2.5)mg/3ml) 3 ml Q4H PRN HHN Shortness of Breath 05/21/17 13:15 05/26/17 13:14 Chlorhexidine Gluconate (Mesha-Hex 2%) 1 applic BEDTIME TOPIC 05/21/17 21:00 06/20/17 20:59 05/21/17 20:25 Dextrose (Dextrose 50%) STAT PRN IV Hypoglycemia 05/21/17 20:00 06/20/17 19:59 Docusate Sodium (Colace) 100 mg THREE TIMES A DAY ORAL 05/21/17 13:00 06/20/17 12:59 05/22/17 09:09 Epoetin Romeo (Procrit (for ESRD on dialysis)) 10,000 units SUN-SUN-SUN SUBQ 05/21/17 21:00 06/20/17 20:59 05/21/17 20:26 Insulin Aspart (NovoLOG) AC+HS SUBQ 05/21/17 11:30 06/20/17 11:29 05/22/17 06:04 Lansoprazole (Prevacid) 30 mg DAILY ORAL 05/22/17 09:00 06/21/17 08:59 05/22/17 09:08 Metoclopramide HCl (Reglan) 5 mg Q6H PRN IVP Nausea & Vomiting 05/21/17 13:45 06/20/17 13:44 Morphine Sulfate (Morphine Sulfate) 1 mg Q4H PRN IVP For Pain 4-05/21/17 12:00 05/28/17 11:59 05/22/17 02:46 Ondansetron HCl (Zofran) 4 mg Q6H PRN IVP Nausea & Vomiting 05/21/17 13:45 06/20/17 13:44 Polyethylene Glycol (Miralax) 17 gm HSPRN PRN ORAL Constipation 05/21/17 19:15 06/20/17 19:14 Quetiapine Fumarate (SEROquel) 12.5 mg BID ORAL 05/21/17 18:00 06/20/17 17:59 05/22/17 09:08 Sucralfate (Carafate) 1 gm FOUR TIMES A DAY ORAL 05/21/17 13:00 06/20/17 12:59 05/22/17 09:09 NANCY QUICK M.D. May 22, 2017 11:50
[2017-05-22 12:00] VITALS: BP 100/69
--- NOTE | 2017-05-22 12:11 | Cardiology Progress Note ---
Assessment/Plan Assessment/Plan nsvt esrd on hd gibleed anemia pvd repeat ekg adn trop mag suplment if adn when ok with nephrology [id number] Objective Last 24 Hour Vital Signs Date Time Temp Pulse Resp B/P Pulse Ox O2 Delivery O2 Flow Rate FiO2 05/22/17 08:19 96 Room Air 21 05/22/17 08:19 Room Air 21 05/22/17 08:00 98.4 95 18 130/53 96 Room Air 05/22/17 08:00 97 05/22/17 04:20 98.5 91 18 138/93 95 Room Air 05/22/17 04:00 106 05/22/17 00:03 98.6 93 19 123/64 96 Room Air 05/22/17 00:00 92 05/21/17 20:00 89 05/21/17 20:00 98.2 89 18 108/52 93 Room Air 05/21/17 19:30 Room Air 21 05/21/17 19:30 98 Room Air 21 05/21/17 18:38 Room Air 15.0 100 05/21/17 16:00 88 05/21/17 15:30 Room Air 15.0 100 05/21/17 15:27 97.3 87 18 128/68 95 Room Air Intake and Output 05/21/17 05/22/17 19:00 07:00 Intake Total 520 ml Output Total 1200 ml Balance -680 ml Intake Oral 520 ml Hemodialysis UF 1200 ml # Voids 1 Laboratory Tests Test 05/22/17 06:10 White Blood Count 7.8 K/UL (4.8-10.8) Red Blood Count 3.08 M/UL (4.20-5.40) L Hemoglobin 9.9 G/DL (12.0-16.0) L Hematocrit 29.2 % (37.0-47.0) L Mean Corpuscular Volume 95 FL (80-99) Mean Corpuscular Hemoglobin 32.2 PG (27.0-31.0) H Mean Corpuscular Hemoglobin Concent 34.0 G/DL (32.0-36.0) Red Cell Distribution Width 17.2 % (11.6-14.8) H Platelet Count 257 K/UL (150-450) Mean Platelet Volume 8.8 FL (6.5-10.1) Neutrophils (%) (Auto) 68.7 % (45.0-75.0) Lymphocytes (%) (Auto) 18.5 % (20.0-45.0) L Monocytes (%) (Auto) 7.8 % (1.0-10.0) Eosinophils (%) (Auto) 4.2 % (0.0-3.0) H Basophils (%) (Auto) 0.9 % (0.0-2.0) Sodium Level 141 mEQ/L (135-145) Potassium Level 3.3 mEQ/L (3.4-4.9) L Chloride Level 100 mEQ/L (98-107) Carbon Dioxide Level 32 mEQ/L (20-30) H Anion Gap 9 (5-15) Blood Urea Nitrogen 18 mg/dL (7-23) Creatinine 2.6 mg/dL (0.5-0.9) H Estimat Glomerular Filtration Rate 22.4 mL/min (>60) Glucose Level 144 mg/dL (74-106) H Uric Acid 4.1 mg/dL (3.0-7.5) Calcium Level 8.6 mg/dL (8.6-10.2) Phosphorus Level 2.4 mg/dL (2.5-4.8) L Magnesium Level 1.6 mg/dL (1.7-2.5) L Total Bilirubin 0.3 mg/dL (0.0-1.2) Aspartate Amino Transf (AST/SGOT) 19 U/L (5-40) Alanine Aminotransferase (ALT/SGPT) 111 U/L (3-33) H Alkaline Phosphatase 74 U/L (35-104) Total Protein 5.1 g/dL (6.6-8.7) L Albumin 3.0 g/dL (3.5-5.2) L Globulin 2.1 g/dL Albumin/Globulin Ratio 1.4 (1.0-2.7) TRACY HERNÁNDEZ May 22, 2017 12:11
--- NOTE | 2017-05-22 12:37 | General Progress Note ---
Assessment/Plan Status: stable Assessment/Plan End-stage renal disease, on hemodialysis every Sunday, Sunday, and Sunday. Last dialysis was on Friday 05/11 Current issue: Massive GI bleed 1. Type 2 diabetes. 2. Hypertension. 3. Anemia of chronic renal disease. & Vaginal bleed 4. Hypercholesterolemia. 5. Peripheral vascular disease. 6. Alzheimer's dementia. 7. ?? LUNG MASS PAST SURGICAL HISTORY: Significant for: 1. Right [id number] amputation. 2. Open reduction internal fixation of the left femoral neck on 07/20/2016. Plan; HD 05/21- done Phos and K supplement On renal diet ? transfusion? as needed Per GI - & Surg Monitor H&H - EPO Per consultants Subjective ROS Limited/Unobtainable: No Constitutional: Reports: malaise Allergies: Coded Allergies: No Known Allergies (Unverified , 09/15/16) Objective Last 24 Hour Vital Signs Date Time Temp Pulse Resp B/P Pulse Ox O2 Delivery O2 Flow Rate FiO2 05/22/17 12:00 98.1 89 17 100/69 98 Room Air 05/22/17 08:19 96 Room Air 21 05/22/17 08:19 Room Air 21 05/22/17 08:00 98.4 95 18 130/53 96 Room Air 05/22/17 08:00 97 05/22/17 04:20 98.5 91 18 138/93 95 Room Air 05/22/17 04:00 106 05/22/17 00:03 98.6 93 19 123/64 96 Room Air 05/22/17 00:00 92 05/21/17 20:00 89 05/21/17 20:00 98.2 89 18 108/52 93 Room Air 05/21/17 19:30 Room Air 21 05/21/17 19:30 98 Room Air 21 05/21/17 18:38 Room Air 15.0 100 05/21/17 16:00 88 05/21/17 15:30 Room Air 15.0 100 05/21/17 15:27 97.3 87 18 128/68 95 Room Air Intake and Output 05/21/17 05/22/17 19:00 07:00 Intake Total 520 ml Output Total 1200 ml Balance -680 ml Intake Oral 520 ml Hemodialysis UF 1200 ml # Voids 1 Laboratory Tests 05/22/17 06:10: White Blood Count 7.8, Red Blood Count 3.08L, Hemoglobin 9.9L, Hematocrit 29.2L , Mean Corpuscular Volume 95, Mean Corpuscular Hemoglobin 32.2H, Mean Corpuscular Hemoglobin Concent 34.0, Red Cell Distribution Width 17.2H, Platelet Count 257, Mean Platelet Volume 8.8, Neutrophils (%) (Auto) 68.7, Lymphocytes (%) (Auto) 18.5L, Monocytes (%) (Auto) 7.8, Eosinophils (%) (Auto) 4.2H, Basophils (%) (Auto) 0.9, Sodium Level 141, Potassium Level 3.3L, Chloride Level 100, Carbon Dioxide Level 32H, Anion Gap 9, Blood Urea Nitrogen 18, Creatinine 2.6H, Estimat Glomerular Filtration Rate 22.4, Glucose Level 144H , Uric Acid 4.1, Calcium Level 8.6, Phosphorus Level 2.4L, Magnesium Level 1.6L , Total Bilirubin 0.3, Aspartate Amino Transf (AST/SGOT) 19, Alanine Aminotransferase (ALT/SGPT) 111H, Alkaline Phosphatase 74, Total Protein 5.1L, Albumin 3.0L, Globulin 2.1, Albumin/Globulin Ratio 1.4 Height (Feet): 5 Height (Inches): 5.00 Weight (Pounds): 130 General Appearance: no apparent distress Respiratory/Chest: lungs clear Abdomen: soft Objective other PE not changed TAQUERIA JACOBSON May 22, 2017 12:37
[2017-05-22] MEDS ORDERED: KCl 10% 20 mEq/15ml liquid ORAL ONE (12:45)
[2017-05-22] MEDS ORDERED: Phospha 250 Neutral tab ORAL ONE (12:45)
[2017-05-22 16:00] VITALS: BP 100/60
--- NOTE | 2017-05-22 17:01 | Consultation ---
DATE OF CONSULTATION: 05/22/2017 CARDIOLOGY CONSULTATION REFERRING PHYSICIAN: Lit Cerna M.D. REASON FOR REFERRAL: Nonsustained ventricular tachycardia. HISTORY OF PRESENT ILLNESS: This is a female who is known to me from prior evaluation and hospitalization from the patient's multiple medical problems has been admitted to the hospital here for the past few days with many issues, noted to have some wide complex tachycardia; therefore this consultation requested on this patient. On questioning, denies any chest pain or pressure or any shortness of breath. No PND. No orthopnea. PAST MEDICAL HISTORY: Positive for end-stage renal disease on chronic dialysis, dementia, left lower extremity deep venous thrombosis, history of chest pain with negative cardiac enzymes and normal LV function and previously right [id number] amputation, anemia as well, peripheral vascular disease, ESBL urinary tract infection previously, decubitus ulcers, and vaginal bleeding on prior occasions. ALLERGIES: She has no known drug allergies. SOCIAL HISTORY: She lives in a usp. Does not smoke or drink alcoholic beverages. REVIEW OF SYSTEMS: Gastrointestinal: Negative. Genitourinary: Negative. Pulmonary: Negative. Constitutional: Negative. Neurologic: Negative, however, because of the patient's status, I would not think her answers can be trustable. PHYSICAL EXAMINATION: GENERAL: The patient to be elderly female, in no apparent distress. NECK: Supple. No jugular venous distention. LUNGS: Clear to auscultation and percussion. CARDIAC: S1 is normal. S2 is normal. Regular rate and rhythm. No heaves. No thrills. No gallops noted. ABDOMEN: Soft and nontender. Positive bowel sounds. EXTREMITIES: There is no clubbing, cyanosis, nor there is any edema. NEUROLOGIC: She is awake and responsive, although not verbally communicative and does communicate by head gestures. LABORATORY AND DIAGNOSTIC DATA: White count 7.8 down from 15.3, hemoglobin 9.9, and platelet count of 257,000. Sodium was 141, potassium 3.3, chloride 100, bicarbonate 32, BUN of 18, creatinine 2.0, and glucose of 144. Calcium is 8.6. Magnesium 1.6. Phosphorus 3.4. AST of 19, ALT of 111 down from 257 and 447 respectively. Her pro-BNP was 5200, although in setting of renal insufficiency. Coagulations, INR 1.0 at that time that was last checked. Vital signs, her blood pressure has been anywhere between 108/52 to 146/82, pulse 95, temperature 98.4 degrees, and saturations on room air of 93% to 98%. Her telemetry data reviewed shows sinus rhythm, premature ventricular complexes, one episode of wide complex tachycardia was noted above five beats in duration. No other significant arrhythmias noted on telemetry. The patient's electrocardiogram was last performed on 05/11/2017 with normal sinus rhythm at that time delay in R-wave progression, otherwise no ST or T-wave abnormalities. ASSESSMENT: 1. Nonsustained ventricular tachycardia. 2. Anemia. 3. End-stage renal disease. 4. Gastrointestinal bleed. 5. Diabetes mellitus. 6. Colonic and gastric polyp. 7. History of hemorrhagic shock. 8. Electrolyte abnormalities. PLAN: Dr. Cerna, this patient was seen in cardiac consultation. From a cardiac point of view, the patient seems to be doing well at the present time. Her last echocardiogram was performed in February and that showed ejection fraction 60%-65%. No significant valvular lesions. Her EKG will be repeated and set of cardiac enzymes will be repeated, but I would not think she needs any further therapy possibly magnesium replacement if and when safe per recommendations of the GI, . Otherwise, we will follow the patient along. Kaushik Franco M.D. DR: BRITTANY JOB#: [id number] CC:
[2017-05-22 20:00] VITALS: BP 110/63
[2017-05-22] MEDS: Dyna-Hex 2% Top Sol 8oz TOPIC SCH (20:50)
[2017-05-23] VITALS: BP 120/61
[2017-05-23 04:00] VITALS: BP 125/67
[2017-05-23] MEDS: NovoLOG Insulin Flexpen SUBQ SCH ×4 (05:53→21:00)
[2017-05-23 07:47] LABS: EOSINOPHILS % (AUTO) 5.7 % (0.0-3.0); LYMPHOCYTES % (AUTO) 29.3 % (20.0-45.0); MEAN CORPUSCULAR HEMOGLOBIN 30.9 PG (27.0-31.0); MEAN CORPUSCULAR HGB CONC 31.6 G/DL (32.0-36.0); MEAN CORPUSCULAR VOLUME 98 FL (80-99); MEAN PLATELET VOLUME 8.1 FL (6.5-10.1); NEUTROPHILS % (AUTO) 55.9 % (45.0-75.0); PLATELET COUNT 259 K/UL (150-450); RED BLOOD COUNT 3.14 M/UL (4.20-5.40); RED CELL DISTRIBUTION WIDTH 17.5 % (11.6-14.8); WHITE BLOOD COUNT 7.9 K/UL (4.8-10.8)
[2017-05-23 07:56] LABS: ALBUMIN/GLOBULIN RATIO 1.2 (1.0-2.7); CALCIUM 8.7 mg/dL (8.6-10.2); CREATININE 3.2 mg/dL (0.5-0.9); GLOMERULAR FILTRATION RATE 17.6 mL/min (>60); POTASSIUM 3.4 mEQ/L (3.4-4.9); TOTAL PROTEIN 5.1 g/dL (6.6-8.7)
[2017-05-23 08:22] LABS: TROPONIN I < 0.30 ng/mL (<=0.30)
[2017-05-23 08:24] LABS: CRP QUANT 0.4 mg/dL (< 0.5); PHOSPHORUS 3.6 mg/dL (2.5-4.8); URIC ACID 5.2 mg/dL (3.0-7.5)
[2017-05-23 08:32] VITALS: BP 114/61
[2017-05-23] MEDS: Docusate 100mg/10ml Liq ORAL SCH ×3 (08:36→18:40)
[2017-05-23] MEDS: Sucralfate 1gm tab ORAL SCH ×4 (08:37→21:06)
--- NOTE | 2017-05-23 10:39 | General Progress Note ---
Progress Note Progress Note pt was followed for UGI bleeding, sp excision of a large gastric pollyp I(path benign.) I hasd placed a right subclavioan triple lumen catheter for access. Fortunay , repeat endoscopy by Dr Herrera sunday showed no further bleedingm, and pt has remained stable since then. no co. Vital Sign - Last 24 Hours 05/22/17 05/22/17 05/22/17 05/22/17 12:00 12:00 16:00 16:00 Temp 98.1 97.0 Pulse 96 89 89 93 Resp 17 B/P 100/69 100/60 Pulse Ox 98 96 O2 Delivery Room Air Room Air 05/22/17 05/22/17 05/22/17 05/22/17 19:00 19:00 20:00 20:00 Temp 97.5 Pulse 85 99 Resp 17 B/P 110/63 Pulse Ox 96 96 O2 Delivery Room Air Room Air Room Air FiO2 21 21 05/23/17 05/23/17 05/23/17 05/23/17 00:00 00:00 04:00 04:00 Temp 97.0 97.8 Pulse 85 97 89 85 Resp 17 B/P 120/61 125/67 Pulse Ox 96 96 O2 Delivery Room Air Room Air 05/23/17 08:32 Temp 97.9 Pulse 77 Resp 18 B/P 114/61 Pulse Ox 98 O2 Delivery Room Air Intake and Output 05/22/17 05/22/17 05/23/17 15:00 23:00 07:00 Intake Total 420 ml Balance 420 ml tlc site okay. Abdomen soft, non tenderNo Laboratory Tests Test 05/23/17 06:35 White Blood Count 7.9 K/UL (4.8-10.8) Red Blood Count 3.14 M/UL (4.20-5.40) L Hemoglobin 9.7 G/DL (12.0-16.0) L Hematocrit 30.6 % (37.0-47.0) L Mean Corpuscular Volume 98 FL (80-99) Mean Corpuscular Hemoglobin 30.9 PG (27.0-31.0) Mean Corpuscular Hemoglobin Concent 31.6 G/DL (32.0-36.0) L Red Cell Distribution Width 17.5 % (11.6-14.8) H Platelet Count 259 K/UL (150-450) Mean Platelet Volume 8.1 FL (6.5-10.1) Neutrophils (%) (Auto) 55.9 % (45.0-75.0) Lymphocytes (%) (Auto) 29.3 % (20.0-45.0) Monocytes (%) (Auto) 8.0 % (1.0-10.0) Eosinophils (%) (Auto) 5.7 % (0.0-3.0) H Basophils (%) (Auto) 1.0 % (0.0-2.0) Sodium Level 143 mEQ/L (135-145) Potassium Level 3.4 mEQ/L (3.4-4.9) Chloride Level 102 mEQ/L (98-107) Carbon Dioxide Level 30 mEQ/L (20-30) Anion Gap 11 (5-15) Blood Urea Nitrogen 21 mg/dL (7-23) Creatinine 3.2 mg/dL (0.5-0.9) H Estimat Glomerular Filtration Rate 17.6 mL/min (>60) Glucose Level 146 mg/dL (74-106) H Uric Acid 5.2 mg/dL (3.0-7.5) Calcium Level 8.7 mg/dL (8.6-10.2) Phosphorus Level 3.6 mg/dL (2.5-4.8) Magnesium Level 1.8 mg/dL (1.7-2.5) Total Bilirubin 0.2 mg/dL (0.0-1.2) Aspartate Amino Transf (AST/SGOT) 14 U/L (5-40) Alanine Aminotransferase (ALT/SGPT) 75 U/L (3-33) H Alkaline Phosphatase 78 U/L (35-104) Troponin I < 0.30 ng/mL (<=0.30) C-Reactive Protein, Quantitative 0.4 mg/dL (< 0.5) Pro-B-Type Natriuretic Peptide 3760 pg/mL (0-125) H Total Protein 5.1 g/dL (6.6-8.7) L Albumin 2.8 g/dL (3.5-5.2) L Globulin 2.3 g/dL Albumin/Globulin Ratio 1.2 (1.0-2.7) LUIS ENRIQUE LOPEZ May 23, 2017 10:39
[2017-05-23 11:45] VITALS: BP 105/57
[2017-05-23] MEDS: Dyna-Hex 2% Top Sol 8oz TOPIC SCH ×2 (12:40→21:07)
--- NOTE | 2017-05-23 13:20 | Wound Care Consultation ---
Wound Assessment Wound Assessment #1: Wound Number: #1 Wound Present on Admission: Yes New Wound: No Status Change of Wound: No Wound Location Body Site Modif: left Wound Location Body Site: heel Wound Type: pressure ulcer Reggie Test: Does not Reggie Pressure Ulcer Stage: deep tissue injury Wound Thickness: Full Thickness Wound Length: 5.0 Wound Width: 4.5 Wound Depth: utd Percent of Wound Black/Brown: 100 Wound Drainage Amount: None Wound Drainage Odor: None/Absent Tissue Surrounding Wound: Intact Wound General Appearance: Blackened Wound Assessment #2: Wound Number: #2 Wound Present on Admission: Yes - full thickness scar tissue present . New Wound: Yes - revealing stage III. resurfaced pressure ulcer. Status Change of Wound: No Wound Location Body Site: sacral Wound Type: pressure ulcer Reggie Test: Does not Reggie Pressure Ulcer Stage: III - scattered openings. Wound Thickness: Full Thickness Wound Length: 3.0 Wound Width: 3.0 Wound Depth: 0.3 Percent of Wound [place]/Red: 100 Wound Drainage Description: Serosanguineous Wound Drainage Amount: Scant Wound Drainage Odor: None/Absent Tissue Surrounding Wound: Macerated Wound General Appearance: Reddened Wound Comment #1 Left heel deep tissue injury pressure ulcer- noted good progress skin remains intact, noted color glez brown color. #2 sacral resurfaced revealing stage III pressure ulcer. - upon assessment noted sacral with full thickness scar tissue present to sacral revealing stage III noted scattered openings to site. Recommendation. - Local wound care as ordered. -Keep clean and dry. -Turn and reposition. -Heel protector on left heel. -Offload left heel. -Offload sacral area. -Avoid shear and friction. -Optimize nutrition. -Low air loss SPR mattress. -Assess and notify MD for any further change of condition to skin present. GOVIND HERNANDES May 23, 2017 13:20
--- NOTE | 2017-05-23 13:32 | GI Progress Note ---
Assessment/Plan Problems: (1) Acute encephalopathy ICD Codes: G93.40 - Encephalopathy, unspecified SNOMED: 3297949 (2) Anemia ICD Codes: D64.9 - Anemia, unspecified SNOMED: 544456501 (3) GI bleed ICD Codes: K92.2 - Gastrointestinal hemorrhage, unspecified SNOMED: 74849717 Qualifiers: Qualified Codes: K92.2 - Gastrointestinal hemorrhage, unspecified (4) Diabetes mellitus ICD Codes: E11.9 - Type 2 diabetes mellitus without complications SNOMED: 47178970 Qualifiers: Qualified Codes: E13.8 - Other specified diabetes mellitus with unspecified complications; Z79.4 - USP (current) use of insulin (5) Sepsis ICD Codes: A41.9 - Sepsis, unspecified organism SNOMED: 01481437 (6) Gastric polyp ICD Codes: K31.7 - Polyp of stomach and duodenum SNOMED: 19024257 Status: stable Status Narrative Discussed with Dr. Herrera. Assessment/Plan S/P EGD / Colonoscopy - SUMMARY OF FINDINGS: 1. Multiple gastric polyps, see above for details. 2. Gastritis. 3. Internal hemorrhoids. 4. Diverticulosis. 5. Two colonic polyps removed see above for details. pt transferred to ICU due to drop in Hgb S/P EGD x2 with 3 clips on 05/17/17. RECOMMENDATIONS: fu surgical consult >> exploratory laparotomy with gastrotomy and over-sewing of the bleeding site if patient continues to bleed >> no surgical intervention needed renal diet monitor H&H, transfuse prn protonix PO + carafate fu labs dc restraints, order sitter for safety Subjective Subjective limited no complaints Objective Last 24 Hour Vital Signs Date Time Temp Pulse Resp B/P Pulse Ox O2 Delivery O2 Flow Rate FiO2 05/23/17 11:45 97.9 86 18 105/57 97 Room Air 05/23/17 08:32 97.9 77 18 114/61 98 Room Air 05/23/17 07:49 80 05/23/17 04:00 97.8 85 17 125/67 96 Room Air 05/23/17 04:00 89 05/23/17 00:00 97 05/23/17 00:00 97.0 85 17 120/61 96 Room Air 05/22/17 20:00 99 05/22/17 20:00 97.5 85 17 110/63 96 Room Air 05/22/17 19:00 Room Air 21 05/22/17 19:00 96 Room Air 21 05/22/17 16:00 97.0 93 17 100/60 96 Room Air 05/22/17 16:00 89 Intake and Output 05/22/17 05/23/17 19:00 07:00 Intake Total 420 ml Balance 420 ml Intake Oral 420 ml Laboratory Tests Test 05/23/17 06:35 White Blood Count 7.9 K/UL (4.8-10.8) Red Blood Count 3.14 M/UL (4.20-5.40) L Hemoglobin 9.7 G/DL (12.0-16.0) L Hematocrit 30.6 % (37.0-47.0) L Mean Corpuscular Volume 98 FL (80-99) Mean Corpuscular Hemoglobin 30.9 PG (27.0-31.0) Mean Corpuscular Hemoglobin Concent 31.6 G/DL (32.0-36.0) L Red Cell Distribution Width 17.5 % (11.6-14.8) H Platelet Count 259 K/UL (150-450) Mean Platelet Volume 8.1 FL (6.5-10.1) Neutrophils (%) (Auto) 55.9 % (45.0-75.0) Lymphocytes (%) (Auto) 29.3 % (20.0-45.0) Monocytes (%) (Auto) 8.0 % (1.0-10.0) Eosinophils (%) (Auto) 5.7 % (0.0-3.0) H Basophils (%) (Auto) 1.0 % (0.0-2.0) Sodium Level 143 mEQ/L (135-145) Potassium Level 3.4 mEQ/L (3.4-4.9) Chloride Level 102 mEQ/L (98-107) Carbon Dioxide Level 30 mEQ/L (20-30) Anion Gap 11 (5-15) Blood Urea Nitrogen 21 mg/dL (7-23) Creatinine 3.2 mg/dL (0.5-0.9) H Estimat Glomerular Filtration Rate 17.6 mL/min (>60) Glucose Level 146 mg/dL (74-106) H Uric Acid 5.2 mg/dL (3.0-7.5) Calcium Level 8.7 mg/dL (8.6-10.2) Phosphorus Level 3.6 mg/dL (2.5-4.8) Magnesium Level 1.8 mg/dL (1.7-2.5) Total Bilirubin 0.2 mg/dL (0.0-1.2) Aspartate Amino Transf (AST/SGOT) 14 U/L (5-40) Alanine Aminotransferase (ALT/SGPT) 75 U/L (3-33) H Alkaline Phosphatase 78 U/L (35-104) Troponin I < 0.30 ng/mL (<=0.30) C-Reactive Protein, Quantitative 0.4 mg/dL (< 0.5) Pro-B-Type Natriuretic Peptide 3760 pg/mL (0-125) H Total Protein 5.1 g/dL (6.6-8.7) L Albumin 2.8 g/dL (3.5-5.2) L Globulin 2.3 g/dL Albumin/Globulin Ratio 1.2 (1.0-2.7) Height (Feet): 5 Height (Inches): 5.00 Weight (Pounds): 130 General Appearance: no apparent distress, alert, other - calm Cardiovascular: normal rate Respiratory/Chest: normal breath sounds, no respiratory distress Abdominal Exam: normal bowel sounds, non tender, soft Crissy Simpson NJeison May 23, 2017 13:32
--- NOTE | 2017-05-23 15:08 | General Progress Note ---
Assessment/Plan Status: stable Assessment/Plan End-stage renal disease, on hemodialysis every Sunday, Sunday, and Sunday. Last dialysis was on Friday 05/11 Current issue: Massive GI bleed 1. Type 2 diabetes. 2. Hypertension. 3. Anemia of chronic renal disease. & Vaginal bleed 4. Hypercholesterolemia. 5. Peripheral vascular disease. 6. Alzheimer's dementia. 7. ?? LUNG MASS PAST SURGICAL HISTORY: Significant for: 1. Right [id number] amputation. 2. Open reduction internal fixation of the left femoral neck on 07/20/2016. Plan; HD 05/21- done next 05/25 Phos and K supplement On renal diet ? transfusion? as needed Per GI - & Surg Monitor H&H - EPO Per consultants DC planning Subjective ROS Limited/Unobtainable: No Allergies: Coded Allergies: No Known Allergies (Unverified , 09/15/16) Objective Last 24 Hour Vital Signs Date Time Temp Pulse Resp B/P Pulse Ox O2 Delivery O2 Flow Rate FiO2 05/23/17 13:00 95 05/23/17 11:45 97.9 86 18 105/57 97 Room Air 05/23/17 08:32 97.9 77 18 114/61 98 Room Air 05/23/17 07:49 80 05/23/17 06:57 97 Room Air 05/23/17 06:57 Room Air 05/23/17 04:00 97.8 85 17 125/67 96 Room Air 05/23/17 04:00 89 05/23/17 00:00 97 05/23/17 00:00 97.0 85 17 120/61 96 Room Air 05/22/17 20:00 99 05/22/17 20:00 97.5 85 17 110/63 96 Room Air 05/22/17 19:00 Room Air 21 05/22/17 19:00 96 Room Air 21 05/22/17 16:00 97.0 93 17 100/60 96 Room Air 05/22/17 16:00 89 Intake and Output 05/22/17 05/23/17 19:00 07:00 Intake Total 420 ml Balance 420 ml Intake Oral 420 ml Laboratory Tests 05/23/17 06:35: White Blood Count 7.9, Red Blood Count 3.14L, Hemoglobin 9.7L, Hematocrit 30.6L , Mean Corpuscular Volume 98, Mean Corpuscular Hemoglobin 30.9, Mean Corpuscular Hemoglobin Concent 31.6L, Red Cell Distribution Width 17.5H, Platelet Count 259, Mean Platelet Volume 8.1, Neutrophils (%) (Auto) 55.9, Lymphocytes (%) (Auto) 29.3, Monocytes (%) (Auto) 8.0, Eosinophils (%) (Auto) 5.7H, Basophils (%) (Auto) 1.0, Sodium Level 143, Potassium Level 3.4, Chloride Level 102, Carbon Dioxide Level 30, Anion Gap 11, Blood Urea Nitrogen 21, Creatinine 3.2H, Estimat Glomerular Filtration Rate 17.6, Glucose Level 146H, Uric Acid 5.2, Calcium Level 8.7, Phosphorus Level 3.6, Magnesium Level 1.8, Total Bilirubin 0.2, Aspartate Amino Transf (AST/SGOT) 14, Alanine Aminotransferase (ALT/SGPT) 75H, Alkaline Phosphatase 78, Troponin I < 0.30, C- Reactive Protein, Quantitative 0.4, Pro-B-Type Natriuretic Peptide 3760H, Total Protein 5.1L, Albumin 2.8L, Globulin 2.3, Albumin/Globulin Ratio 1.2 Height (Feet): 5 Height (Inches): 5.00 Weight (Pounds): 130 General Appearance: no apparent distress Objective other PE not changed TAQUERIA JACOBSON May 23, 2017 15:08
[2017-05-23 15:50] VITALS: BP 102/95
--- NOTE | 2017-05-23 16:47 | Cardiology Report ---
APPROVED REPORT EKG Measurement Heart [id number] Normal sinus rhythm Low voltage QRS Incomplete left bundle branch block Marked ST abnormality, possible lateral subendocardial injury Abnormal ECG
--- NOTE | 2017-05-23 17:56 | Infectious Diseases Prog Note ---
Assessment/Plan Assessment/Plan ASSESSMENT: 67-year-old female with: // Hx of C.difficile // hx of UTI - UCx <10K ESBL(+) E.coli SP Rx - h/o VSE.faecalis // Lt heel decubitus not grossly infected // leukocytosis ( 2/2 bleeding ) , SP // HypotTN 2/2 to bleeding // GI bleed and FOBT+ anemia SP PRBCs - SP excision of a large gastric pollyp I(path benign.) - SP EGD/colonoscopy 05/14: Multiple gastric polyps; Gastritis; Internal hemorrhoids; Diverticulosis. path T Adenoma // Hx of Vaginal bleed, possible endometrial CA - US: thickened endometrium and 8.5 cm complex left adnexal mass. // ESRD / HD // Advanced dementia // Acute and chronic BLE DVTs // DM2 - HbA1c 6.7% // PVD SP right AKA // [place] resident // MRSA colonized // NKDA // Full Code PLAN: - monitor pt off of AB Rx ( 7 2 SP IV Zosyn d# 5 ) ( 01/03 SP amikacin d# 4, zosyn d# 3 ) ( 01/02 SP IV vancomycin d# 3 ) - monitor CBC, temperatures - monitor BMP. - monitor CXR - wound care Subjective Constitutional: Denies: anorexia, chills, drenching sweats, fatigue, fever, no symptoms, other Allergies: Coded Allergies: No Known Allergies (Unverified , 09/15/16) Subjective no new complain Objective Vital Signs Last 24 Hour Vital Signs Date Time Temp Pulse Resp B/P Pulse Ox O2 Delivery O2 Flow Rate FiO2 05/23/17 16:00 87 05/23/17 15:50 97.7 98 20 102/95 95 Room Air 05/23/17 13:00 95 05/23/17 11:45 97.9 86 18 105/57 97 Room Air 05/23/17 08:32 97.9 77 18 114/61 98 Room Air 05/23/17 07:49 80 05/23/17 06:57 97 Room Air 05/23/17 06:57 Room Air 05/23/17 04:00 97.8 85 17 125/67 96 Room Air 05/23/17 04:00 89 05/23/17 00:00 97 05/23/17 00:00 97.0 85 17 120/61 96 Room Air 05/22/17 20:00 99 05/22/17 20:00 97.5 85 17 110/63 96 Room Air 05/22/17 19:00 Room Air 21 05/22/17 19:00 96 Room Air 21 Height (Feet): 5 Height (Inches): 5.00 Weight (Pounds): 130 HEENT: atraumatic Respiratory/Chest: no respiratory distress Cardiovascular: regularly irregular Abdomen: no organomegaly Laboratory Tests Test 05/23/17 06:35 White Blood Count 7.9 K/UL (4.8-10.8) Red Blood Count 3.14 M/UL (4.20-5.40) L Hemoglobin 9.7 G/DL (12.0-16.0) L Hematocrit 30.6 % (37.0-47.0) L Mean Corpuscular Volume 98 FL (80-99) Mean Corpuscular Hemoglobin 30.9 PG (27.0-31.0) Mean Corpuscular Hemoglobin Concent 31.6 G/DL (32.0-36.0) L Red Cell Distribution Width 17.5 % (11.6-14.8) H Platelet Count 259 K/UL (150-450) Mean Platelet Volume 8.1 FL (6.5-10.1) Neutrophils (%) (Auto) 55.9 % (45.0-75.0) Lymphocytes (%) (Auto) 29.3 % (20.0-45.0) Monocytes (%) (Auto) 8.0 % (1.0-10.0) Eosinophils (%) (Auto) 5.7 % (0.0-3.0) H Basophils (%) (Auto) 1.0 % (0.0-2.0) Sodium Level 143 mEQ/L (135-145) Potassium Level 3.4 mEQ/L (3.4-4.9) Chloride Level 102 mEQ/L (98-107) Carbon Dioxide Level 30 mEQ/L (20-30) Anion Gap 11 (5-15) Blood Urea Nitrogen 21 mg/dL (7-23) Creatinine 3.2 mg/dL (0.5-0.9) H Estimat Glomerular Filtration Rate 17.6 mL/min (>60) Glucose Level 146 mg/dL (74-106) H Uric Acid 5.2 mg/dL (3.0-7.5) Calcium Level 8.7 mg/dL (8.6-10.2) Phosphorus Level 3.6 mg/dL (2.5-4.8) Magnesium Level 1.8 mg/dL (1.7-2.5) Total Bilirubin 0.2 mg/dL (0.0-1.2) Aspartate Amino Transf (AST/SGOT) 14 U/L (5-40) Alanine Aminotransferase (ALT/SGPT) 75 U/L (3-33) H Alkaline Phosphatase 78 U/L (35-104) Troponin I < 0.30 ng/mL (<=0.30) C-Reactive Protein, Quantitative 0.4 mg/dL (< 0.5) Pro-B-Type Natriuretic Peptide 3760 pg/mL (0-125) H Total Protein 5.1 g/dL (6.6-8.7) L Albumin 2.8 g/dL (3.5-5.2) L Globulin 2.3 g/dL Albumin/Globulin Ratio 1.2 (1.0-2.7) Current Medications Medications (Trade) Dose Ordered Sig/Althea Route PRN Reason Start Time Stop Time Status Last Admin Dose Admin Acetaminophen (Tylenol) 650 mg Q4H PRN ORAL fever 05/21/17 12:00 06/20/17 11:59 Albuterol/ Ipratropium (DuoNeb 0.5-3(2.5)mg/3ml) 3 ml Q4H PRN HHN Shortness of Breath 05/21/17 13:15 05/26/17 13:14 Chlorhexidine Gluconate (Mesha-Hex 2%) 1 applic BEDTIME TOPIC 05/21/17 21:00 06/20/17 20:59 05/23/17 12:40 Dextrose (Dextrose 50%) STAT PRN IV Hypoglycemia 05/21/17 20:00 06/20/17 19:59 Docusate Sodium (Colace) 100 mg THREE TIMES A DAY ORAL 05/21/17 13:00 06/20/17 12:59 05/23/17 12:20 Epoetin Romeo (Procrit (for ESRD on dialysis)) 10,000 units SUN-SUN-SUN SUBQ 05/21/17 21:00 06/20/17 20:59 05/21/17 20:26 Insulin Aspart (NovoLOG) AC+HS SUBQ 05/21/17 11:30 06/20/17 11:29 05/23/17 17:06 Lansoprazole (Prevacid) 30 mg DAILY ORAL 05/22/17 09:00 06/21/17 08:59 05/23/17 08:36 Metoclopramide HCl (Reglan) 5 mg Q6H PRN IVP Nausea & Vomiting 05/21/17 13:45 06/20/17 13:44 Morphine Sulfate (Morphine Sulfate) 1 mg Q4H PRN IVP For Pain -05/21/17 12:00 05/28/17 11:59 05/22/17 02:46 Ondansetron HCl (Zofran) 4 mg Q6H PRN IVP Nausea & Vomiting 05/21/17 13:45 06/20/17 13:44 Polyethylene Glycol (Miralax) 17 gm HSPRN PRN ORAL Constipation 05/21/17 19:15 06/20/17 19:14 Quetiapine Fumarate (SEROquel) 12.5 mg BID ORAL 05/21/17 18:00 06/20/17 17:59 05/23/17 08:36 Sucralfate (Carafate) 1 gm FOUR TIMES A DAY ORAL 05/21/17 13:00 06/20/17 12:59 05/23/17 12:20 NANCY QUICK M.D. May 23, 2017 17:56
[2017-05-23 20:00] VITALS: BP 98/75
[2017-05-23] MEDS: Epogen (for ESRD on dialysis) SUBQ SCH (21:06)
[2017-05-24] VITALS: BP 129/60
[2017-05-24 04:00] VITALS: BP 124/65
[2017-05-24] MEDS: NovoLOG Insulin Flexpen SUBQ SCH ×2 (06:30→13:29)
[2017-05-24 07:48] LABS: BASOPHILS % (AUTO) 1.1 % (0.0-2.0); EOSINOPHILS % (AUTO) 5.2 % (0.0-3.0); LYMPHOCYTES % (AUTO) 21.9 % (20.0-45.0); MEAN CORPUSCULAR HEMOGLOBIN 30.8 PG (27.0-31.0); MEAN CORPUSCULAR HGB CONC 31.6 G/DL (32.0-36.0); MEAN CORPUSCULAR VOLUME 97 FL (80-99); MEAN PLATELET VOLUME 9.2 FL (6.5-10.1); MONOCYTES % (AUTO) 7.5 % (1.0-10.0); NEUTROPHILS % (AUTO) 64.3 % (45.0-75.0); PLATELET COUNT 342 K/UL (150-450); RED BLOOD COUNT 3.14 M/UL (4.20-5.40); RED CELL DISTRIBUTION WIDTH 17.1 % (11.6-14.8); WHITE BLOOD COUNT 8.5 K/UL (4.8-10.8)
[2017-05-24 08:02] VITALS: BP 115/59
[2017-05-24 08:02] LABS: CALCIUM 8.7 mg/dL (8.6-10.2); CREATININE 3.4 mg/dL (0.5-0.9); GLOMERULAR FILTRATION RATE 16.5 mL/min (>60); POTASSIUM 3.5 mEQ/L (3.4-4.9)
[2017-05-24 08:03] LABS: BILIRUBIN,DIRECT 0.1 mg/dL (0.1-0.3); MAGNESIUM 1.8 mg/dL (1.7-2.5); PHOSPHORUS 3.6 mg/dL (2.5-4.8)
[2017-05-24] MEDS: Docusate 100mg/10ml Liq ORAL SCH ×2 (09:43→13:26)
[2017-05-24] MEDS: Sucralfate 1gm tab ORAL SCH ×2 (09:44→13:26)
--- NOTE | 2017-05-24 11:20 | GI Progress Note ---
Assessment/Plan Problems: (1) Acute encephalopathy ICD Codes: G93.40 - Encephalopathy, unspecified SNOMED: 7460701 (2) Anemia ICD Codes: D64.9 - Anemia, unspecified SNOMED: 974944881 (3) GI bleed ICD Codes: K92.2 - Gastrointestinal hemorrhage, unspecified SNOMED: 84688110 Qualifiers: Qualified Codes: K92.2 - Gastrointestinal hemorrhage, unspecified (4) Diabetes mellitus ICD Codes: E11.9 - Type 2 diabetes mellitus without complications SNOMED: 31312754 Qualifiers: Qualified Codes: E13.8 - Other specified diabetes mellitus with unspecified complications; Z79.4 - detention (current) use of insulin (5) Sepsis ICD Codes: A41.9 - Sepsis, unspecified organism SNOMED: 32330414 (6) Gastric polyp ICD Codes: K31.7 - Polyp of stomach and duodenum SNOMED: 08782240 Status: stable Status Narrative Discussed with Dr. Herrera. Assessment/Plan S/P EGD / Colonoscopy - SUMMARY OF FINDINGS: 1. Multiple gastric polyps, see above for details. 2. Gastritis. 3. Internal hemorrhoids. 4. Diverticulosis. 5. Two colonic polyps removed see above for details. S/P EGD x2 with 3 clips on 05/17/17. >> pathology benign RECOMMENDATIONS: fu surgical consult >> exploratory laparotomy with gastrotomy and over-sewing of the bleeding site if patient continues to bleed >> no surgical intervention needed renal diet stable H&H, transfuse prn protonix PO + carafate fu labs dc planning Subjective Subjective limited no complaints Objective Last 24 Hour Vital Signs Date Time Temp Pulse Resp B/P Pulse Ox O2 Delivery O2 Flow Rate FiO2 05/24/17 08:02 97.7 85 18 115/59 96 Room Air 05/24/17 08:00 98 05/24/17 04:00 97.5 93 20 124/65 98 Room Air 05/24/17 04:00 90 05/24/17 00:00 95 05/24/17 00:00 97.5 96 20 129/60 Room Air 05/23/17 20:00 90 05/23/17 20:00 98.0 89 20 98/75 Room Air 05/23/17 19:30 Room Air 21 05/23/17 19:30 93 Room Air 05/23/17 16:00 87 05/23/17 15:50 97.7 98 20 102/95 95 Room Air 05/23/17 13:00 95 05/23/17 11:45 97.9 86 18 105/57 97 Room Air Intake and Output 05/23/17 05/24/17 19:00 07:00 Intake Total 360 ml Balance 360 ml Intake Oral 360 ml # Voids 3 Laboratory Tests Test 05/24/17 07:25 White Blood Count 8.5 K/UL (4.8-10.8) Red Blood Count 3.14 M/UL (4.20-5.40) L Hemoglobin 9.7 G/DL (12.0-16.0) L Hematocrit 30.6 % (37.0-47.0) L Mean Corpuscular Volume 97 FL (80-99) Mean Corpuscular Hemoglobin 30.8 PG (27.0-31.0) Mean Corpuscular Hemoglobin Concent 31.6 G/DL (32.0-36.0) L Red Cell Distribution Width 17.1 % (11.6-14.8) H Platelet Count 342 K/UL (150-450) Mean Platelet Volume 9.2 FL (6.5-10.1) Neutrophils (%) (Auto) 64.3 % (45.0-75.0) Lymphocytes (%) (Auto) 21.9 % (20.0-45.0) Monocytes (%) (Auto) 7.5 % (1.0-10.0) Eosinophils (%) (Auto) 5.2 % (0.0-3.0) H Basophils (%) (Auto) 1.1 % (0.0-2.0) Sodium Level 140 mEQ/L (135-145) Potassium Level 3.5 mEQ/L (3.4-4.9) Chloride Level 102 mEQ/L (98-107) Carbon Dioxide Level 29 mEQ/L (20-30) Anion Gap 9 (5-15) Blood Urea Nitrogen 24 mg/dL (7-23) H Creatinine 3.4 mg/dL (0.5-0.9) H Estimat Glomerular Filtration Rate 16.5 mL/min (>60) Glucose Level 108 mg/dL (74-106) H Calcium Level 8.7 mg/dL (8.6-10.2) Phosphorus Level 3.6 mg/dL (2.5-4.8) Magnesium Level 1.8 mg/dL (1.7-2.5) Total Bilirubin 0.2 mg/dL (0.0-1.2) Direct Bilirubin 0.1 mg/dL (0.1-0.3) Aspartate Amino Transf (AST/SGOT) 13 U/L (5-40) Alanine Aminotransferase (ALT/SGPT) 55 U/L (3-33) H Alkaline Phosphatase 83 U/L (35-104) Total Protein 5.0 g/dL (6.6-8.7) L Albumin 2.7 g/dL (3.5-5.2) L Height (Feet): 5 Height (Inches): 5.00 Weight (Pounds): 130 General Appearance: no apparent distress, alert Cardiovascular: normal rate Respiratory/Chest: normal breath sounds, no respiratory distress Abdominal Exam: normal bowel sounds, non tender, soft Crissy Simpson N.P. May 24, 2017 11:20
--- NOTE | 2017-05-24 11:57 | Infectious Diseases Prog Note ---
Assessment/Plan Assessment/Plan ASSESSMENT: 67-year-old female s/p leukocytosis in setting of UGIB. leukocytosis resovled, remains without s/sx of active infection. // Hx of C.difficile // hx of UTI - UCx <10K ESBL(+) E.coli SP Rx - h/o VSE.faecalis // Lt heel decubitus not grossly infected // leukocytosis ( 2/2 bleeding ) , SP // HypotTN 2/2 to bleeding // GI bleed and FOBT+ anemia SP PRBCs - SP excision of a large gastric pollyp I(path benign.) - SP EGD/colonoscopy 05/14: Multiple gastric polyps; Gastritis; Internal hemorrhoids; Diverticulosis. path T Adenoma // Hx of Vaginal bleed, possible endometrial CA - US: thickened endometrium and 8.5 cm complex left adnexal mass. // ESRD / HD // Advanced dementia // Acute and chronic BLE DVTs // DM2 - HbA1c 6.7% // PVD SP right AKA // NH resident // MRSA colonized // NKDA // Full Code PLAN: - monitor pt off of AB Rx, from ID perspective agree with dispo plan today. ( 7 2 SP IV Zosyn d# 5 ) ( 01/03 SP amikacin d# 4, zosyn d# 3 ) ( 01/02 SP IV vancomycin d# 3 ) - wound care Subjective Allergies: Coded Allergies: No Known Allergies (Unverified , 09/15/16) Objective Vital Signs Last 24 Hour Vital Signs Date Time Temp Pulse Resp B/P Pulse Ox O2 Delivery O2 Flow Rate FiO2 05/24/17 08:02 97.7 85 18 115/59 96 Room Air 05/24/17 08:00 98 05/24/17 04:00 97.5 93 20 124/65 98 Room Air 05/24/17 04:00 90 05/24/17 00:00 95 05/24/17 00:00 97.5 96 20 129/60 Room Air 05/23/17 20:00 90 05/23/17 20:00 98.0 89 20 98/75 Room Air 05/23/17 19:30 Room Air 21 05/23/17 19:30 93 Room Air 05/23/17 16:00 87 05/23/17 15:50 97.7 98 20 102/95 95 Room Air 05/23/17 13:00 95 Height (Feet): 5 Height (Inches): 5.00 Weight (Pounds): 130 Objective eyes open, at baseline dementia no jvd lungs cta b rrr, no murmurs abd soft, nt, nd ext: old healed R AKA skin: no rashes ; no raphael in place Laboratory Tests Test 05/24/17 07:25 White Blood Count 8.5 K/UL (4.8-10.8) Red Blood Count 3.14 M/UL (4.20-5.40) L Hemoglobin 9.7 G/DL (12.0-16.0) L Hematocrit 30.6 % (37.0-47.0) L Mean Corpuscular Volume 97 FL (80-99) Mean Corpuscular Hemoglobin 30.8 PG (27.0-31.0) Mean Corpuscular Hemoglobin Concent 31.6 G/DL (32.0-36.0) L Red Cell Distribution Width 17.1 % (11.6-14.8) H Platelet Count 342 K/UL (150-450) Mean Platelet Volume 9.2 FL (6.5-10.1) Neutrophils (%) (Auto) 64.3 % (45.0-75.0) Lymphocytes (%) (Auto) 21.9 % (20.0-45.0) Monocytes (%) (Auto) 7.5 % (1.0-10.0) Eosinophils (%) (Auto) 5.2 % (0.0-3.0) H Basophils (%) (Auto) 1.1 % (0.0-2.0) Sodium Level 140 mEQ/L (135-145) Potassium Level 3.5 mEQ/L (3.4-4.9) Chloride Level 102 mEQ/L (98-107) Carbon Dioxide Level 29 mEQ/L (20-30) Anion Gap 9 (5-15) Blood Urea Nitrogen 24 mg/dL (7-23) H Creatinine 3.4 mg/dL (0.5-0.9) H Estimat Glomerular Filtration Rate 16.5 mL/min (>60) Glucose Level 108 mg/dL (74-106) H Calcium Level 8.7 mg/dL (8.6-10.2) Phosphorus Level 3.6 mg/dL (2.5-4.8) Magnesium Level 1.8 mg/dL (1.7-2.5) Total Bilirubin 0.2 mg/dL (0.0-1.2) Direct Bilirubin 0.1 mg/dL (0.1-0.3) Aspartate Amino Transf (AST/SGOT) 13 U/L (5-40) Alanine Aminotransferase (ALT/SGPT) 55 U/L (3-33) H Alkaline Phosphatase 83 U/L (35-104) Total Protein 5.0 g/dL (6.6-8.7) L Albumin 2.7 g/dL (3.5-5.2) L Current Medications Medications (Trade) Dose Ordered Sig/Althea Route PRN Reason Start Time Stop Time Status Last Admin Dose Admin Acetaminophen (Tylenol) 650 mg Q4H PRN ORAL fever 05/21/17 12:00 06/20/17 11:59 Albuterol/ Ipratropium (DuoNeb 0.5-3(2.5)mg/3ml) 3 ml Q4H PRN HHN Shortness of Breath 05/21/17 13:15 05/26/17 13:14 Chlorhexidine Gluconate (Mesha-Hex 2%) 1 applic BEDTIME TOPIC 05/21/17 21:00 06/20/17 20:59 05/23/17 21:07 Dextrose (Dextrose 50%) STAT PRN IV Hypoglycemia 05/21/17 20:00 06/20/17 19:59 Docusate Sodium (Colace) 100 mg THREE TIMES A DAY ORAL 05/21/17 13:00 06/20/17 12:59 05/24/17 09:43 Epoetin Romeo (Procrit (for ESRD on dialysis)) 10,000 units MON-WED-SUN SUBQ 05/21/17 21:00 06/20/17 20:59 05/23/17 21:06 Insulin Aspart (NovoLOG) AC+HS SUBQ 05/21/17 11:30 06/20/17 11:29 05/23/17 17:06 Lansoprazole (Prevacid) 30 mg DAILY ORAL 05/22/17 09:00 06/21/17 08:59 05/24/17 09:43 Metoclopramide HCl (Reglan) 5 mg Q6H PRN IVP Nausea & Vomiting 05/21/17 13:45 06/20/17 13:44 Morphine Sulfate (Morphine Sulfate) 1 mg Q4H PRN IVP For Pain 4-10 05/21/17 12:00 05/28/17 11:59 05/22/17 02:46 Ondansetron HCl (Zofran) 4 mg Q6H PRN IVP Nausea & Vomiting 05/21/17 13:45 06/20/17 13:44 Polyethylene Glycol (Miralax) 17 gm HSPRN PRN ORAL Constipation 05/21/17 19:15 06/20/17 19:14 Quetiapine Fumarate (SEROquel) 12.5 mg BID ORAL 05/21/17 18:00 06/20/17 17:59 05/24/17 09:44 Sucralfate (Carafate) 1 gm FOUR TIMES A DAY ORAL 05/21/17 13:00 06/20/17 12:59 05/24/17 09:44 Dereje Castle M.D. May 24, 2017 11:57
[2017-05-24 12:00] VITALS: BP 113/60
--- NOTE | 2017-05-24 12:10 | Pre-Procedure Note/Attestation ---
Pre-Procedure Note/Attestation Complete Prior to Procedure Procedure Narrative: colonoscopy Indications for Procedure Pre-Operative Diagnosis: active GIB Attestation I attest that I discussed the nature of the procedure; its benefits; risks and complications; and alternatives (and the risks and benefits of such alternatives ), prior to the procedure, with the patient (or the patient's legal direct marketing representative). I attest that, if there was a reasonable possibility of needing a blood transfusion, the patient (or the patient's legal direct marketing representative) was given the [facility] standardized written summary, pursuant to the Abdirizak Joanna Blood Safety Act ([place] Health and Safety Code # 1645, as amended). I attest that I re-evaluated the patient just prior to the surgery and that there has been no change in the patient's H&P, except as documented below: TIGRE HERNANDEZ May 24, 2017 12:10
--- NOTE | 2017-05-24 12:55 | Pulmonology Progress Note ---
Assessment/Plan Problems: (1) Acute encephalopathy (2) Anemia (3) ESRD (end stage renal disease) on dialysis (4) S/P AKA (above knee amputation) unilateral (5) Diabetes mellitus Assessment/Plan doing better all noted reviewed h/h stabel HD by nephrology sliding scale check electrolytes DVT in right leg, pt son not ready to sign a consent for IVC filter, He is aware of complications of future thrombi or emboli. Subjective ROS Limited/Unobtainable: No Interval Events: late note for 05/23, no new complains, doing better, talking Allergies: Coded Allergies: No Known Allergies (Unverified , 09/15/16) Objective Last 24 Hour Vital Signs Date Time Temp Pulse Resp B/P Pulse Ox O2 Delivery O2 Flow Rate FiO2 05/24/17 12:00 97.5 98 18 113/60 96 Room Air 05/24/17 08:02 97.7 85 18 115/59 96 Room Air 05/24/17 08:00 98 05/24/17 04:00 97.5 93 20 124/65 98 Room Air 05/24/17 04:00 90 05/24/17 00:00 95 05/24/17 00:00 97.5 96 20 129/60 Room Air 05/23/17 20:00 90 05/23/17 20:00 98.0 89 20 98/75 Room Air 05/23/17 19:30 Room Air 21 05/23/17 19:30 93 Room Air 05/23/17 16:00 87 05/23/17 15:50 97.7 98 20 102/95 95 Room Air 05/23/17 13:00 95 Intake and Output 05/23/17 05/24/17 19:00 07:00 Intake Total 360 ml Balance 360 ml Intake Oral 360 ml # Voids 3 Objective General Appearance: WD/WN HEENT: normocephalic Respiratory/Chest: chest wall non-tender, lungs clear Cardiovascular: normal peripheral pulses, normal rate Abdomen: normal bowel sounds, soft, non tender Extremities: no cyanosis, other - effusion in both knees Skin: no rash Laboratory Tests 05/24/17 07:25: White Blood Count 8.5, Red Blood Count 3.14L, Hemoglobin 9.7L, Hematocrit 30.6L , Mean Corpuscular Volume 97, Mean Corpuscular Hemoglobin 30.8, Mean Corpuscular Hemoglobin Concent 31.6L, Red Cell Distribution Width 17.1H, Platelet Count 342, Mean Platelet Volume 9.2, Neutrophils (%) (Auto) 64.3, Lymphocytes (%) (Auto) 21.9, Monocytes (%) (Auto) 7.5, Eosinophils (%) (Auto) 5.2H, Basophils (%) (Auto) 1.1, Sodium Level 140, Potassium Level 3.5, Chloride Level 102, Carbon Dioxide Level 29, Anion Gap 9, Blood Urea Nitrogen 24H, Creatinine 3.4H, Estimat Glomerular Filtration Rate 16.5, Glucose Level 108H, Calcium Level 8.7, Phosphorus Level 3.6, Magnesium Level 1.8, Total Bilirubin 0.2, Direct Bilirubin 0.1, Aspartate Amino Transf (AST/SGOT) 13, Alanine Aminotransferase (ALT/SGPT) 55H, Alkaline Phosphatase 83, Total Protein 5.0L, Albumin 2.7L Current Medications Medications (Trade) Dose Ordered Sig/Althea Route PRN Reason Start Time Stop Time Status Last Admin Dose Admin Acetaminophen (Tylenol) 650 mg Q4H PRN ORAL fever 05/21/17 12:00 06/20/17 11:59 Albuterol/ Ipratropium (DuoNeb 0.5-3(2.5)mg/3ml) 3 ml Q4H PRN HHN Shortness of Breath 05/21/17 13:15 05/26/17 13:14 Chlorhexidine Gluconate (Mesha-Hex 2%) 1 applic BEDTIME TOPIC 05/21/17 21:00 06/20/17 20:59 05/23/17 21:07 Dextrose (Dextrose 50%) STAT PRN IV Hypoglycemia 05/21/17 20:00 06/20/17 19:59 Docusate Sodium (Colace) 100 mg THREE TIMES A DAY ORAL 05/21/17 13:00 06/20/17 12:59 05/24/17 09:43 Epoetin Romeo (Procrit (for ESRD on dialysis)) 10,000 units SUN-WED-SUN SUBQ 05/21/17 21:00 06/20/17 20:59 05/23/17 21:06 Insulin Aspart (NovoLOG) AC+HS SUBQ 05/21/17 11:30 06/20/17 11:29 05/23/17 17:06 Lansoprazole (Prevacid) 30 mg DAILY ORAL 05/22/17 09:00 06/21/17 08:59 05/24/17 09:43 Metoclopramide HCl (Reglan) 5 mg Q6H PRN IVP Nausea & Vomiting 05/21/17 13:45 06/20/17 13:44 Morphine Sulfate (Morphine Sulfate) 1 mg Q4H PRN IVP For Pain 4-10 05/21/17 12:00 05/28/17 11:59 05/22/17 02:46 Ondansetron HCl (Zofran) 4 mg Q6H PRN IVP Nausea & Vomiting 05/21/17 13:45 06/20/17 13:44 Polyethylene Glycol (Miralax) 17 gm HSPRN PRN ORAL Constipation 05/21/17 19:15 06/20/17 19:14 Quetiapine Fumarate (SEROquel) 12.5 mg BID ORAL 05/21/17 18:00 06/20/17 17:59 05/24/17 09:44 Sucralfate (Carafate) 1 gm FOUR TIMES A DAY ORAL 05/21/17 13:00 06/20/17 12:59 05/24/17 09:44 IHSAN SILVA May 24, 2017 12:55
--- NOTE | 2017-05-24 12:59 | Pulmonology Progress Note ---
Assessment/Plan Problems: (1) Acute encephalopathy (2) Anemia (3) ESRD (end stage renal disease) on dialysis (4) S/P AKA (above knee amputation) unilateral (5) Diabetes mellitus Assessment/Plan doing better all noted reviewed h/h stabel HD by nephrology sliding scale check electrolytes will dc to SNf, once pts son agrees with filter, will arrange for outpatient intervention. Subjective ROS Limited/Unobtainable: No Constitutional: Reports: no symptoms HEENT: Repors: no symptoms Respiratory: Reports: no symptoms Allergies: Coded Allergies: No Known Allergies (Unverified , 09/15/16) Objective Last 24 Hour Vital Signs Date Time Temp Pulse Resp B/P Pulse Ox O2 Delivery O2 Flow Rate FiO2 05/24/17 12:00 97.5 98 18 113/60 96 Room Air 05/24/17 08:02 97.7 85 18 115/59 96 Room Air 05/24/17 08:00 98 05/24/17 04:00 97.5 93 20 124/65 98 Room Air 05/24/17 04:00 90 05/24/17 00:00 95 05/24/17 00:00 97.5 96 20 129/60 Room Air 05/23/17 20:00 90 05/23/17 20:00 98.0 89 20 98/75 Room Air 05/23/17 19:30 Room Air 21 05/23/17 19:30 93 Room Air 05/23/17 16:00 87 05/23/17 15:50 97.7 98 20 102/95 95 Room Air 05/23/17 13:00 95 Intake and Output 05/23/17 05/24/17 19:00 07:00 Intake Total 360 ml Balance 360 ml Intake Oral 360 ml # Voids 3 Objective General Appearance: WD/WN HEENT: normocephalic Respiratory/Chest: chest wall non-tender, lungs clear Cardiovascular: normal peripheral pulses, normal rate Abdomen: normal bowel sounds, soft, non tender Extremities: no cyanosis, other - effusion in both knees Skin: no rash Laboratory Tests 05/24/17 07:25: White Blood Count 8.5, Red Blood Count 3.14L, Hemoglobin 9.7L, Hematocrit 30.6L , Mean Corpuscular Volume 97, Mean Corpuscular Hemoglobin 30.8, Mean Corpuscular Hemoglobin Concent 31.6L, Red Cell Distribution Width 17.1H, Platelet Count 342, Mean Platelet Volume 9.2, Neutrophils (%) (Auto) 64.3, Lymphocytes (%) (Auto) 21.9, Monocytes (%) (Auto) 7.5, Eosinophils (%) (Auto) 5.2H, Basophils (%) (Auto) 1.1, Sodium Level 140, Potassium Level 3.5, Chloride Level 102, Carbon Dioxide Level 29, Anion Gap 9, Blood Urea Nitrogen 24H, Creatinine 3.4H, Estimat Glomerular Filtration Rate 16.5, Glucose Level 108H, Calcium Level 8.7, Phosphorus Level 3.6, Magnesium Level 1.8, Total Bilirubin 0.2, Direct Bilirubin 0.1, Aspartate Amino Transf (AST/SGOT) 13, Alanine Aminotransferase (ALT/SGPT) 55H, Alkaline Phosphatase 83, Total Protein 5.0L, Albumin 2.7L Current Medications Medications (Trade) Dose Ordered Sig/Althea Route PRN Reason Start Time Stop Time Status Last Admin Dose Admin Acetaminophen (Tylenol) 650 mg Q4H PRN ORAL fever 05/21/17 12:00 06/20/17 11:59 Albuterol/ Ipratropium (DuoNeb 0.5-3(2.5)mg/3ml) 3 ml Q4H PRN HHN Shortness of Breath 05/21/17 13:15 05/26/17 13:14 Chlorhexidine Gluconate (Mesha-Hex 2%) 1 applic BEDTIME TOPIC 05/21/17 21:00 06/20/17 20:59 05/23/17 21:07 Dextrose (Dextrose 50%) STAT PRN IV Hypoglycemia 05/21/17 20:00 06/20/17 19:59 Docusate Sodium (Colace) 100 mg THREE TIMES A DAY ORAL 05/21/17 13:00 06/20/17 12:59 05/24/17 09:43 Epoetin Romeo (Procrit (for ESRD on dialysis)) 10,000 units SUN-WED-SUN SUBQ 05/21/17 21:00 06/20/17 20:59 05/23/17 21:06 Insulin Aspart (NovoLOG) AC+HS SUBQ 05/21/17 11:30 06/20/17 11:29 05/23/17 17:06 Lansoprazole (Prevacid) 30 mg DAILY ORAL 05/22/17 09:00 06/21/17 08:59 05/24/17 09:43 Metoclopramide HCl (Reglan) 5 mg Q6H PRN IVP Nausea & Vomiting 05/21/17 13:45 06/20/17 13:44 Morphine Sulfate (Morphine Sulfate) 1 mg Q4H PRN IVP For Pain 4-05/21/17 12:00 05/28/17 11:59 05/22/17 02:46 Ondansetron HCl (Zofran) 4 mg Q6H PRN IVP Nausea & Vomiting 05/21/17 13:45 06/20/17 13:44 Polyethylene Glycol (Miralax) 17 gm HSPRN PRN ORAL Constipation 05/21/17 19:15 06/20/17 19:14 Quetiapine Fumarate (SEROquel) 12.5 mg BID ORAL 05/21/17 18:00 06/20/17 17:59 05/24/17 09:44 Sucralfate (Carafate) 1 gm FOUR TIMES A DAY ORAL 05/21/17 13:00 06/20/17 12:59 05/24/17 09:44 IHSAN SILVA May 24, 2017 12:59
--- NOTE | 2017-05-24 15:28 | General Progress Note ---
Assessment/Plan Status: stable Assessment/Plan End-stage renal disease, on hemodialysis every Sunday, Sunday, and Sunday. Last dialysis was on Friday 05/11 Current issue: Massive GI bleed 1. Type 2 diabetes. 2. Hypertension. 3. Anemia of chronic renal disease. & Vaginal bleed 4. Hypercholesterolemia. 5. Peripheral vascular disease. 6. Alzheimer's dementia. 7. ?? LUNG MASS PAST SURGICAL HISTORY: Significant for: 1. Right [id number] amputation. 2. Open reduction internal fixation of the left femoral neck on 07/20/2016. Plan; HD 05/21- done next 05/25 Phos and K supplement On renal diet ? transfusion? as needed Per GI - & Surg Monitor H&H - EPO Per consultants DC planning Subjective Date patient seen: May 24, 2017 Time patient seen: 09:35 ROS Limited/Unobtainable: No Constitutional: Reports: malaise Allergies: Coded Allergies: No Known Allergies (Unverified , 09/15/16) Objective Last 24 Hour Vital Signs Date Time Temp Pulse Resp B/P Pulse Ox O2 Delivery O2 Flow Rate FiO2 05/24/17 12:00 97.5 98 18 113/60 96 Room Air 05/24/17 08:02 97.7 85 18 115/59 96 Room Air 05/24/17 08:00 98 05/24/17 06:58 Room Air 05/24/17 06:57 95 Room Air 05/24/17 04:00 97.5 93 20 124/65 98 Room Air 05/24/17 04:00 90 05/24/17 00:00 95 05/24/17 00:00 97.5 96 20 129/60 Room Air 05/23/17 20:00 90 05/23/17 20:00 98.0 89 20 98/75 Room Air 05/23/17 19:30 Room Air 21 05/23/17 19:30 93 Room Air 05/23/17 16:00 87 05/23/17 15:50 97.7 98 20 102/95 95 Room Air Intake and Output 05/23/17 05/24/17 19:00 07:00 Intake Total 360 ml Balance 360 ml Intake Oral 360 ml # Voids 3 Laboratory Tests 05/24/17 07:25: White Blood Count 8.5, Red Blood Count 3.14L, Hemoglobin 9.7L, Hematocrit 30.6L , Mean Corpuscular Volume 97, Mean Corpuscular Hemoglobin 30.8, Mean Corpuscular Hemoglobin Concent 31.6L, Red Cell Distribution Width 17.1H, Platelet Count 342, Mean Platelet Volume 9.2, Neutrophils (%) (Auto) 64.3, Lymphocytes (%) (Auto) 21.9, Monocytes (%) (Auto) 7.5, Eosinophils (%) (Auto) 5.2H, Basophils (%) (Auto) 1.1, Sodium Level 140, Potassium Level 3.5, Chloride Level 102, Carbon Dioxide Level 29, Anion Gap 9, Blood Urea Nitrogen 24H, Creatinine 3.4H, Estimat Glomerular Filtration Rate 16.5, Glucose Level 108H, Calcium Level 8.7, Phosphorus Level 3.6, Magnesium Level 1.8, Total Bilirubin 0.2, Direct Bilirubin 0.1, Aspartate Amino Transf (AST/SGOT) 13, Alanine Aminotransferase (ALT/SGPT) 55H, Alkaline Phosphatase 83, Total Protein 5.0L, Albumin 2.7L Height (Feet): 5 Height (Inches): 5.00 Weight (Pounds): 130 General Appearance: no apparent distress Objective other PE not changed TAQUERIA JACOBSON May 24, 2017 15:28
--- NOTE | 2017-05-25 22:56 | Discharge Summary ---
Discharge Summary Hospital Course Date of Admission May 11, 2017 at 15:34 Date of Discharge May 24, 2017 at 14:30 Admitting Diagnosis CVA/dysphagia/dehydration HPI Kiki Smith is a 67 year old female who was admitted on May 11, 2017 at 15:34 for Cerebral Vascular Accident,Dysphagia,Dehydration Hospital Course [id number] Discharge Discharge Disposition Patient was discharged to SNF/Subacute Facility(03) Discharge Diagnoses: Melissa Rogers NP May 25, 2017 22:56
--- NOTE | 2017-05-26 14:00 | Discharge Summary 2 SIG ---
DATE OF ADMISSION: 05/11/2017 DATE OF DISCHARGE: 05/24/2017 CONSULTANTS: 1. Fabrizio Herrera M.D. 2. Yariel Urbina M.D. 3. Tank Cook M.D. BRIEF HOSPITAL COURSE: The patient is a 67-year-old female with history of end-stage renal disease, on hemodialysis Sunday, Sunday, and Sunday, dementia, and diabetes, who was sent in for low hemoglobin. On evaluation at ED, hemoglobin was 6.9. Stool was positive for occult blood. The patient was given blood transfusion and was admitted to telemetry for anemia. She was followed by Dr. Herrera and underwent EGD with colonoscopy on 05/14/2017 with findings of an active bleeding from the post polypectomy site status post hemostasis with three clips and epinephrine injection. Surgical evaluation was done for possible control of bleeding surgically. The patient was given proton pump inhibitors, was given Protonix drip and Carafate, and was placed on low-dose IV pressors. Triple lumen catheter was replaced as the patient required a reliable triple lumen catheter for IV fluids. She underwent a repeat endoscopy. The patient had a lot of blood clots seen in the stomach, but there was no active bleed and at this time she was able to find the area of clippings, three clips were still in place. The area was washed. There was no oozing seen and clips were holding the ulcers. No further extra hemostasis was performed and the patient tolerated the procedure without any complications. Prior to this when hemoglobin dropped, the patient was orally intubated on 05/18/2017 where she eventually self extubated and also had venous duplex finding of acute DVT on the right leg. Hemoglobin and hematocrit normalized or stabilized. Diet was started. The patient's family was undecided about IVC filter. Son was aware of complications of future thrombi or emboli. The patient was discharged to SNF to arrange IVC filter as outpatient. FINAL DIAGNOSES: 1. Acute massive gastrointestinal bleed. 2. Hemorrhagic shock. 3. Acute toxic metabolic encephalopathy on chronic advanced dementia. 4. Acute respiratory failure requiring intubation with self-extubation. 5. Acute anemia requiring transfusion. 6. End-stage renal disease, on hemodialysis. 7. Acute deep venous thrombosis on right leg. 8. Peripheral vascular disease. 9. Diabetes mellitus. 10. History of vaginal bleed. 11. Gastric polyp. 12. Left heel decubitus and sacral revealing stage III pressure ulcer, present on admission. 13. Status post above knee amputation unilateral. 14. Anemia of chronic renal disease. 15. Hypercholesterolemia. 16. Possible lung mass. Lit Cerna M.D. I have been assigned to dictate discharge summary on this account and I was not involved in the patient's management. Melissa Rogers N.P. DR: Edna JOB#: [id number] CC:
== END 2017-05-24 14:30 | DRG 682 ==
LOC: EDBD 13:45 → EMR 14:00 → 2E 15:34 → EDBEDREQ 16:06 → 4E 05-12 15:38 → ICU 05-16 10:35 → 2W 05-18 18:35 → 2E 05-20 18:14 → 2W 05-20 20:14 → 2E 05-21 10:59
PROC: 30233N1 Transfusion of Nonautologous Red Blood Cells into Peripheral Vein, Percutaneous Approach (ICD-10-PCS; principal; 2017-05-11)
PROC: 5A1D60Z (ICD-10-PCS; 2017-05-12)
PROC: 0DBL8ZZ Excision of Transverse Colon, Via Natural or Artificial Opening Endoscopic (ICD-10-PCS; 2017-05-14 14:49)
PROC: 0DB68ZZ Excision of Stomach, Via Natural or Artificial Opening Endoscopic (ICD-10-PCS; 2017-05-14 14:49)
PROC: B543ZZA Ultrasonography of Right Jugular Veins, Guidance (ICD-10-PCS; 2017-05-16)
PROC: 05HM33Z Insertion of Infusion Device into Right Internal Jugular Vein, Percutaneous Approach (ICD-10-PCS; 2017-05-16)
PROC: 0W3P8ZZ Control Bleeding in Gastrointestinal Tract, Via Natural or Artificial Opening Endoscopic (ICD-10-PCS; 2017-05-17)
PROC: 0DJ08ZZ Inspection of Upper Intestinal Tract, Via Natural or Artificial Opening Endoscopic (ICD-10-PCS; 2017-05-17)
PROC: 5A1935Z Respiratory Ventilation, Less than 24 Consecutive Hours (ICD-10-PCS; 2017-05-17)
PROC: 3E0G8GC Introduction of Other Therapeutic Substance into Upper GI, Via Natural or Artificial Opening Endoscopic (ICD-10-PCS; 2017-05-17)
PROC: 0BH17EZ Insertion of Endotracheal Airway into Trachea, Via Natural or Artificial Opening (ICD-10-PCS; 2017-05-17)
PROC: 05H533Z Insertion of Infusion Device into Right Subclavian Vein, Percutaneous Approach (ICD-10-PCS; 2017-05-17)
DX: I12.0 Hypertensive chronic kidney disease with stage 5 chronic kidney disease or end stage renal disease (principal); N18.6 End stage renal disease; J96.00 Acute respiratory failure, unspecified whether with hypoxia or hypercapnia; G92 Toxic encephalopathy; L89.153 Pressure ulcer of sacral region, stage 3; E11.22 Type 2 diabetes mellitus with diabetic chronic kidney disease; I82.411 Acute embolism and thrombosis of right femoral vein; I47.1 Supraventricular tachycardia; D62 Acute posthemorrhagic anemia; L89.623 Pressure ulcer of left heel, stage 3; T81.19XA Other postprocedural shock, initial encounter; K91.840 Postprocedural hemorrhage of a digestive system organ or structure following a digestive system procedure; T82.41XA Breakdown (mechanical) of vascular dialysis catheter, initial encounter; D63.1 Anemia in chronic kidney disease; G30.9 Alzheimer's disease, unspecified; F02.80 Dementia in other diseases classified elsewhere, unspecified severity, without behavioral disturbance, psychotic disturbance, mood disturbance, and anxiety; Z89.611 Acquired absence of right leg above knee; Z99.2 Dependence on renal dialysis; I73.9 Peripheral vascular disease, unspecified; Z79.4 Long term (current) use of insulin; E78.00 Pure hypercholesterolemia, unspecified; D12.3 Benign neoplasm of transverse colon; K31.7 Polyp of stomach and duodenum; K64.8 Other hemorrhoids; K57.90 Diverticulosis of intestine, part unspecified, without perforation or abscess without bleeding; R91.8 Other nonspecific abnormal finding of lung field
CPT/HCPCS: 36415; 36569; 36600; 71010; 74000; 80048; 80053; 80076; 82270; 82378; 82607; 82746; 82803; 82962; 82977; 83036; 83540; 83550; 83615; 83690; 83735; 83880; 84100; 84443; 84484; 84550; 85007; 85025; 85044; 85610; 85651; 85730; 86140; 86850; 86900; 86901; 86920; 86927; 87040; 93005; 93970; 94002; 94003; 94150; 94664; 94760; C9399; J0171; J1815; J2250; J2370; J2765

== ENCOUNTER 2017-12-10 18:21 | Inpatient (IN) | payer MEDICARE, MEDICAID ==
[~2017-12-10] VITALS: Ht 157.5 cm; Wt 59.0 kg
[2017-12-10] MEDS ORDERED: Sodium Chloride 500ML 500 ML IV ONE (19:00)
[2017-12-10 19:02] VITALS: BP 90/59
[2017-12-10 19:13] LABS: BASOPHILS % (AUTO) 1.1 % (0.0-2.0); EOSINOPHILS % (AUTO) 1.3 % (0.0-3.0); HEMOGLOBIN 12.5 G/DL (12.0-16.0); LYMPHOCYTES % (AUTO) 10.1 % (20.0-45.0); MEAN CORPUSCULAR VOLUME 93 FL (80-99); MONOCYTES % (AUTO) 6.5 % (1.0-10.0); PLATELET COUNT 303 K/UL (150-450); RED CELL DISTRIBUTION WIDTH 13.3 % (11.6-14.8); WHITE BLOOD COUNT 8.4 K/UL (4.8-10.8)
[2017-12-10 19:41] LABS: ALANINE AMINOTRANSFERASE 26 U/L (12-78); ALBUMIN 2.8 G/DL (3.4-5.0); ALBUMIN/GLOBULIN RATIO 0.7 (1.0-2.7); ALKALINE PHOSPHATASE 127 U/L (46-116); ANION GAP 10 mmol/L (5-15); ASPARTATE AMINO TRANSFERASE 20 U/L (15-37); BILIRUBIN,TOTAL 0.2 MG/DL (0.2-1.0); BLOOD UREA NITROGEN 25 mg/dL (7-18); CALCIUM 9.2 MG/DL (8.5-10.1); CARBON DIOXIDE 32 MMOL/L (21-32); CHLORIDE 94 MMOL/L (98-107); CKMB 3.5 NG/ML (0.0-3.6); CREATINE KINASE 53 U/L (26-308); CREATININE 2.6 MG/DL (0.55-1.30); SODIUM 135 MMOL/L (136-145)
[2017-12-10 19:44] LABS: POTASSIUM 2.5 MMOL/L (3.5-5.1)
[2017-12-10] MEDS ORDERED: MIRALAX17 G2 ORAL (20:38)
[2017-12-10] MEDS ORDERED: CARAFATE1 G1 ORAL (20:38)
[2017-12-10] MEDS ORDERED: DOCUSATE SODIU100 MG ORAL (20:38)
[2017-12-10] MEDS ORDERED: NEXIUM40 MG ORAL (20:38)
[2017-12-10] MEDS ORDERED: NOVOLOG100 UNIT/4 SQ (20:38)
[2017-12-10] MEDS ORDERED: METOCLOPRAMIDE H5 M1 ORAL (20:38)
[2017-12-10] MEDS ORDERED: ZOFRAN4 M3 ORAL (20:38)
[2017-12-10 21:02] VITALS: BP 100/56
[2017-12-10] MEDS ORDERED: Miralax 17gm pkt ORAL PRN (22:00)
[2017-12-10] MEDS ORDERED: Morphine Sulfate 2mg/ml Inj IVP PRN ×4 (22:00→23:30)
[2017-12-10] MEDS ORDERED: Zolpidem 5mg tab ORAL PRN (22:00)
[2017-12-10] MEDS ORDERED: Mylanta II UD 30ml ORAL PRN (22:00)
[2017-12-10] MEDS ORDERED: Albuterol/Ipratropium 3ml neb HHN PRN (22:00)
[2017-12-10] MEDS: HydrALAZINE 25mg tab ORAL SCH (22:00)
[2017-12-10 22:15] VITALS: BP 122/65
[2017-12-11] VITALS: BP 88/54
[2017-12-11 04:00] VITALS: BP 81/56
[2017-12-11] MEDS: HydrALAZINE 25mg tab ORAL SCH ×2 (06:00→14:00)
[2017-12-11] MEDS: NovoLOG Insulin Flexpen SUBQ SCH ×4 (06:30→21:15)
--- NOTE | 2017-12-11 07:23 | Emergency Room Report ---
History of Present Illness General Chief Complaint: Generalized Weakness Source: Patient Present Illness HPI Patient presents complaints of general weakness Patient herself reports that she feels fine however does appear to have some mild confusion her baseline mental status is not fully understood The reports by paramedics was simply of weakness No reports of vomiting or diarrhea unknown regarding fever patient did have dialysis earlier today Patient denies any headache Denies any chest pain denies any shortness of breath Allergies: Coded Allergies: No Known Allergies (Unverified , 09/15/16) Patient History Limited by: medical condition Past Medical History: see triage record Pertinent Family History: none Reviewed Nursing Documentation: PMH: Agreed, PSxH: Agreed Nursing Documentation-PMH Past Medical History: No History, Except For Hx Cardiac Problems: Yes - ESRD Hx Hypertension: Yes Hx Diabetes: Yes Hx Cancer: No Hx Gastrointestinal Problems: Yes Hx Dialysis: Yes - MWF Hx Neurological Problems: Yes - Dementia Hx Cerebrovascular Accident: Yes Hx Dementia: Yes Hx Alzheimer's Disease: Yes Hx Paralysis: Yes Hx Dysphasia: Yes Hx Weakness: Yes Review of Systems All Other Systems: limited - Other than the ones mentioned in the history of present illness all others are reviewed however they do stay limited due to the patient's mental status Physical Exam Vital Signs Date Time Temp Pulse Resp B/P (MAP) Pulse Ox O2 Delivery O2 Flow Rate FiO2 12/10/17 18:05 96.3 107 16 102/60 97 Room Air Sp02 EP Interpretation: reviewed, normal General Appearance: no apparent distress Head: normocephalic, atraumatic Eyes: bilateral eye PERRL, bilateral eye EOMI ENT: hearing grossly normal, normal pharynx Neck: normal inspection Respiratory: normal inspection, chest non-tender, lungs clear Cardiovascular #1: regular rate, rhythm, no edema Gastrointestinal: normal bowel sounds, non tender, soft Genitourinary: no CVA tenderness Musculoskeletal: normal inspection Neurologic: alert, responsive Skin: normal color, no rash Lymphatic: no adenopathy Medical Decision Making Diagnostic Impression: Primary Impression: ESRF (end stage renal failure) Additional Impression: Episode of generalized weakness ER Course Patient is a fairly complex patient with multiple differential to consideration including but not limited to cardiac cardiopulmonary and vascular emergencies Patient's blood pressure did have a low reading initially Patient was given low bolus of fluid as she is a dialysis patient Patient's blood pressure did improve potassium is mildly low however given the dialysis status patient was not given potassium here At this time is admitted for further care Labs Test 12/10/17 18:55 White Blood Count 8.4 K/UL (4.8-10.8) Red Blood Count 4.10 M/UL (4.20-5.40) Hemoglobin 12.5 G/DL (12.0-16.0) Hematocrit 38.0 % (37.0-47.0) Mean Corpuscular Volume 93 FL (80-99) Mean Corpuscular Hemoglobin 30.6 PG (27.0-31.0) Mean Corpuscular Hemoglobin Concent 33.0 G/DL (32.0-36.0) Red Cell Distribution Width 13.3 % (11.6-14.8) Platelet Count 303 K/UL (150-450) Mean Platelet Volume 10.9 FL (6.5-10.1) Neutrophils (%) (Auto) 81.0 % (45.0-75.0) Lymphocytes (%) (Auto) 10.1 % (20.0-45.0) Monocytes (%) (Auto) 6.5 % (1.0-10.0) Eosinophils (%) (Auto) 1.3 % (0.0-3.0) Basophils (%) (Auto) 1.1 % (0.0-2.0) Sodium Level 135 MMOL/L (136-145) Potassium Level 2.5 MMOL/L (3.5-5.1) Chloride Level 94 MMOL/L (98-107) Carbon Dioxide Level 32 MMOL/L (21-32) Anion Gap 10 mmol/L (5-15) Blood Urea Nitrogen 25 mg/dL (7-18) Creatinine 2.6 MG/DL (0.55-1.30) Estimat Glomerular Filtration Rate 22.4 mL/min (>60) Glucose Level 302 MG/DL (74-106) Calcium Level 9.2 MG/DL (8.5-10.1) Total Bilirubin 0.2 MG/DL (0.2-1.0) Aspartate Amino Transf (AST/SGOT) 20 U/L (15-37) Alanine Aminotransferase (ALT/SGPT) 26 U/L (12-78) Alkaline Phosphatase 127 U/L (46-116) Total Creatine Kinase 53 U/L (26-308) Creatine Kinase MB 3.5 NG/ML (0.0-3.6) Creatine Kinase MB Relative Index 6.6 Troponin I 0.102 ng/mL (0.000-0.056) Total Protein 6.8 G/DL (6.4-8.2) Albumin 2.8 G/DL (3.4-5.0) Globulin 4.0 g/dL Albumin/Globulin Ratio 0.7 (1.0-2.7) Rhythm Strip Diag. Results EP Interpretation: yes Rate: 78 Rhythm: NSR, no PVC's, no ectopy Last Vital Signs Date Time Temp Pulse Resp B/P (MAP) Pulse Ox O2 Delivery O2 Flow Rate FiO2 12/11/17 04:00 98.2 85 16 81/56 100 12/10/17 22:15 Room Air Status: improved Disposition: ADMITTED INPATIENT Condition: Serious Referrals: IHSAN SILVA (PCP) KELLY KENNEDY D.O. Dec 11, 2017 07:23
[2017-12-11 08:00] VITALS: BP 105/63
[2017-12-11 08:36] LABS: HEMATOCRIT 31.2 % (37.0-47.0); HEMOGLOBIN 10.1 G/DL (12.0-16.0); MEAN CORPUSCULAR VOLUME 95 FL (80-99); PLATELET COUNT 259 K/UL (150-450); RED CELL DISTRIBUTION WIDTH 13.4 % (11.6-14.8); WHITE BLOOD COUNT 6.8 K/UL (4.8-10.8)
[2017-12-11] MEDS ORDERED: Metoprolol Tartrate 50mg tab ORAL SCH (09:00)
[2017-12-11 09:24] LABS: ALANINE AMINOTRANSFERASE 16 U/L (12-78); ALBUMIN 2.7 G/DL (3.4-5.0); ALBUMIN/GLOBULIN RATIO 0.8 (1.0-2.7); ALKALINE PHOSPHATASE 114 U/L (46-116); ANION GAP 9 mmol/L (5-15); ASPARTATE AMINO TRANSFERASE 19 U/L (15-37); BILIRUBIN,TOTAL 0.2 MG/DL (0.2-1.0); BLOOD UREA NITROGEN 37 mg/dL (7-18); CALCIUM 9.4 MG/DL (8.5-10.1); CARBON DIOXIDE 31 MMOL/L (21-32); CHLORIDE 96 MMOL/L (98-107); CHOLESTEROL 185 MG/DL (< 200); CREATININE 3.2 MG/DL (0.55-1.30); HDL CHOLESTEROL 53 MG/DL (40-60); SODIUM 136 MMOL/L (136-145); TRIGLYCERIDES 111 MG/DL (30-150)
[2017-12-11 09:30] LABS: POTASSIUM 2.7 MMOL/L (3.5-5.1)
[2017-12-11] MEDS: Aspirin Baby 81mg ORAL SCH (09:50)
[2017-12-11] MEDS: Eliquis 2.5mg tablet ORAL SCH ×2 (09:51→17:16)
--- NOTE | 2017-12-11 10:48 | History and Physical ---
History of Present Illness General Date patient seen: Dec 11, 2017 Reason for Hospitalization: Generalized Weakness Present Illness HPI 67 year old female with hx of ESRF on HD, [facility] resident presented to ER with complaints of general weakness, she sounded congested in ER. she was borderline hypotensive and had increased troponin and admitted to telemetry for further work up. Allergies: Coded Allergies: No Known Allergies (Unverified , 09/15/16) Medication History Scheduled Amino Acids/Protein Hydrolys (Pro-Stat Liquid), 45 ML ORAL TWICE A DAY, ( Reported) Apixaban (Eliquis), 10 MG PO BID Aspirin* (Aspirin*), 81 MG ORAL DAILY, (Reported) Atorvastatin Calcium* (Atorvastatin Calcium*), 10 MG ORAL BEDTIME, (Reported) Collagenase Clostridium Hist. (Santyl), 1 APPLIC TP DAILY, (Reported) Docusate Sodium* (Docusate Sodium*), 100 MG ORAL THREE TIMES A DAY, (Reported) Esomeprazole Magnesium (Nexium), 40 MG ORAL DAILY, (Reported) Ferrous Sulfate* (Ferrous Sulfate*), 325 MG ORAL DAILY, (Reported) Hydralazine Hcl* (Hydralazine Hcl*), 25 MG ORAL EVERY 8 HOURS, (Reported) Ibuprofen* (Motrin*), 400 MG ORAL Q6H, (Reported) Lorazepam* (Lorazepam*), 2 MG ORAL DAILY, (Reported) Metoclopramide Hcl* (Metoclopramide Hcl*), 5 MG ORAL EVERY 6 HOURS, (Reported) Metoprolol Tartrate* (Metoprolol Tartrate*), 50 MG ORAL DAILY, (Reported) Pantoprazole* (Protonix*), 40 MG ORAL DAILY, (Reported) Polyethylene Glycol 3350* (Miralax*), 17 GM ORAL BEDTIME, (Reported) Quetiapine Fumarate* (Seroquel*), 12.5 MG ORAL BID, (Reported) Sucralfate* (Carafate*), 1 GM ORAL BEDTIME, (Reported) [Nephro Aid], 1 TAB PO DAILY, (Reported) Scheduled PRN Acetaminophen* (Acetaminophen 325MG Tablet*), 650 MG ORAL Q4HR PRN for Mild Pain (Pain Scale 1-3), (Reported) Morphine Sulfate* (Morphine Sulfate*), 2 MG IVP Q4HR PRN for For Pain, (Reported ) Nitroglycerin (Nitroglycerin), 0.4 MG SL for Prn Chest Pain, (Reported) Ondansetron* (Zofran*), 4 MG IVP Q6H PRN for Nausea & Vomiting, (Reported) Ondansetron* (Zofran*), 4 MG ORAL Q6H PRN for Nausea & Vomiting, (Reported) Temazepam (Temazepam*), 15 MG ORAL HS PRN for Insomnia, (Reported) Miscellaneous Medications Insulin Aspart (Novolog), 100 UNIT SQ, (Reported) Insuln Asp Prt/Insulin Aspart (Novolog Mix 70-30 Flexpen Syrn), 100 UNIT SQ, ( Reported) Patient History Healthcare decision maker Resuscitation status Full Code Advanced Directive on File Yes Past Medical/Surgical History Past Medical/Surgical History: (1) ESRF (end stage renal failure) (2) Diabetes mellitus (3) S/P AKA (above knee amputation) unilateral Review of Systems Constitutional: Reports: weakness Physical Exam General Appearance: cachetic Lines, tubes and drains: peripheral HEENT: normocephalic, atraumatic Neck: non-tender, supple Respiratory/Chest: chest wall non-tender, lungs clear Cardiovascular/Chest: normal peripheral pulses, regular rhythm Abdomen: normal bowel sounds, soft Genitourinary/Rectal: normal genital exam Extremities: normal range of motion Last 24 Hour Vital Signs Date Time Temp Pulse Resp B/P (MAP) Pulse Ox O2 Delivery O2 Flow Rate FiO2 12/11/17 09:03 90 12/11/17 09:00 90 105/63 12/11/17 08:00 98.1 91 18 105/63 98 12/11/17 04:00 98.2 85 16 81/56 100 12/11/17 04:00 85 12/11/17 00:00 97.9 86 16 88/54 95 12/11/17 00:00 91 12/10/17 22:15 99.3 100 17 122/65 100 Room Air 12/10/17 22:15 98.9 100 17 122/65 100 Room Air 12/10/17 22:00 90/59 12/10/17 21:02 99.3 105 17 100/56 100 Room Air 12/10/17 19:02 98.9 107 19 90/59 99 Room Air 12/10/17 18:05 96.3 107 16 102/60 97 Room Air Intake and Output 12/10/17 12/11/17 19:00 07:00 # Bowel Movements 3 Laboratory Tests Test 12/10/17 18:55 12/11/17 07:10 White Blood Count 8.4 K/UL (4.8-10.8) 6.8 K/UL (4.8-10.8) Red Blood Count 4.10 M/UL (4.20-5.40) L 3.30 M/UL (4.20-5.40) L Hemoglobin 12.5 G/DL (12.0-16.0) 10.1 G/DL (12.0-16.0) L Hematocrit 38.0 % (37.0-47.0) 31.2 % (37.0-47.0) L Mean Corpuscular Volume 93 FL (80-99) 95 FL (80-99) Mean Corpuscular Hemoglobin 30.6 PG (27.0-31.0) 30.7 PG (27.0-31.0) Mean Corpuscular Hemoglobin Concent 33.0 G/DL (32.0-36.0) 32.5 G/DL (32.0-36.0) Red Cell Distribution Width 13.3 % (11.6-14.8) 13.4 % (11.6-14.8) Platelet Count 303 K/UL (150-450) 259 K/UL (150-450) Mean Platelet Volume 10.9 FL (6.5-10.1) H 11.3 FL (6.5-10.1) H Neutrophils (%) (Auto) 81.0 % (45.0-75.0) H % (45.0-75.0) Lymphocytes (%) (Auto) 10.1 % (20.0-45.0) L % (20.0-45.0) Monocytes (%) (Auto) 6.5 % (1.0-10.0) % (1.0-10.0) Eosinophils (%) (Auto) 1.3 % (0.0-3.0) % (0.0-3.0) Basophils (%) (Auto) 1.1 % (0.0-2.0) % (0.0-2.0) Sodium Level 135 MMOL/L (136-145) L 136 MMOL/L (136-145) Potassium Level 2.5 MMOL/L (3.5-5.1) *L 2.7 MMOL/L (3.5-5.1) *L Chloride Level 94 MMOL/L (98-107) L 96 MMOL/L (98-107) L Carbon Dioxide Level 32 MMOL/L (21-32) 31 MMOL/L (21-32) Anion Gap 10 mmol/L (5-15) 9 mmol/L (5-15) Blood Urea Nitrogen 25 mg/dL (7-18) H 37 mg/dL (7-18) H Creatinine 2.6 MG/DL (0.55-1.30) H 3.2 MG/DL (0.55-1.30) H Estimat Glomerular Filtration Rate 22.4 mL/min (>60) 17.6 mL/min (>60) Glucose Level 302 MG/DL (74-106) H 210 MG/DL (74-106) H Calcium Level 9.2 MG/DL (8.5-10.1) 9.4 MG/DL (8.5-10.1) Total Bilirubin 0.2 MG/DL (0.2-1.0) 0.2 MG/DL (0.2-1.0) Aspartate Amino Transf (AST/SGOT) 20 U/L (15-37) 19 U/L (15-37) Alanine Aminotransferase (ALT/SGPT) 26 U/L (12-78) 16 U/L (12-78) Alkaline Phosphatase 127 U/L (46-116) H 114 U/L (46-116) Total Creatine Kinase 53 U/L (26-308) Creatine Kinase MB 3.5 NG/ML (0.0-3.6) Creatine Kinase MB Relative Index 6.6 Troponin I 0.102 ng/mL (0.000-0.056) Total Protein 6.8 G/DL (6.4-8.2) 6.2 G/DL (6.4-8.2) L Albumin 2.8 G/DL (3.4-5.0) L 2.7 G/DL (3.4-5.0) L Globulin 4.0 g/dL 3.5 g/dL Albumin/Globulin Ratio 0.7 (1.0-2.7) L 0.8 (1.0-2.7) L Differential Total Cells Counted 100 Neutrophils % (Manual) 59 % (45-75) Lymphocytes % (Manual) 25 % (20-45) Monocytes % (Manual) 13 % (1-10) H Eosinophils % (Manual) 2 % (0-3) Basophils % (Manual) 1 % (0-2) Band Neutrophils 0 % (0-8) Platelet Estimate Adequate Platelet Morphology Normal Hypochromasia 1+ Anisocytosis 1+ Hemoglobin A1c 8.1 % (4.3-6.0) H Triglycerides Level 111 MG/DL (30-150) Cholesterol Level 185 MG/DL (< 200) LDL Cholesterol 96 mg/dL (<100) HDL Cholesterol 53 MG/DL (40-60) Cholesterol/HDL Ratio 3.5 (3.3-4.4) Thyroid Stimulating Hormone (TSH) 0.187 uiU/mL (0.358-3.740) Height (Feet): 5 Height (Inches): 2.00 Weight (Pounds): 130 Medications Current Medications Medications (Trade) Dose Ordered Sig/Althea Route PRN Reason Start Time Stop Time Status Last Admin Dose Admin Acetaminophen (Tylenol) 650 mg Q4H PRN ORAL fever 12/10/17 22:00 01/09/18 21:59 Al Hydroxide/Mg Hydroxide (Mylanta II) 30 ml Q6H PRN ORAL dyspepsia 12/10/17 22:00 01/09/18 21:59 Albuterol/ Ipratropium (Albuterol/ Ipratropium) 3 ml Q6HRT PRN HHN dyspnea 12/10/17 22:00 12/15/17 21:59 Apixaban (Eliquis) 2.5 mg BID ORAL 12/11/17 09:00 01/10/18 08:59 12/11/17 09:51 Aspirin (ASA) 81 mg DAILY ORAL 12/11/17 09:00 01/10/18 08:59 12/11/17 09:50 Atorvastatin Calcium (Lipitor) 10 mg BEDTIME ORAL 12/11/17 21:00 01/10/18 20:59 Clonidine HCl (Catapres Tab) 0.1 mg Q4H PRN ORAL For High Blood Pressure 12/10/17 22:00 2/21/18 21:59 Dextrose (Dextrose 50%) STAT PRN IV Hypoglycemia 12/10/17 22:00 01/09/18 21:59 Hydralazine HCl (Apresoline) 25 mg EVERY 8 HOURS ORAL 12/10/17 22:00 01/09/18 21:59 Insulin Aspart (NovoLOG) BEFORE MEALS AND HS SUBQ 12/11/17 06:30 01/10/18 06:29 12/11/17 06:30 Metoprolol Tartrate (Lopressor) 50 mg DAILY ORAL 12/11/17 09:00 01/10/18 08:59 Morphine Sulfate (Morphine Sulfate) 1 mg Q4H PRN IVP Moderate Pain (Pain Scale 4-6) 12/10/17 23:30 12/17/17 23:29 Morphine Sulfate (Morphine Sulfate) 2 mg Q4HR PRN IVP For SEVERE Pain 12/10/17 23:30 12/17/17 23:29 Ondansetron HCl (Zofran) 4 mg Q6H PRN IVP Nausea & Vomiting 12/10/17 22:00 01/09/18 21:59 Polyethylene Glycol (Miralax) 17 gm HSPRN PRN ORAL Constipation 12/10/17 22:00 01/09/18 21:59 Quetiapine Fumarate (SEROquel) 12.5 mg BID ORAL 12/11/17 09:00 01/10/18 08:59 12/11/17 09:50 Zolpidem Tartrate (Ambien) 5 mg HSPRN PRN ORAL Insomnia 12/10/17 22:00 12/17/17 21:59 Assessment/Plan Problem List: (1) Non-ST elevation (NSTEMI) myocardial infarction ICD Codes: I21.4 - Non-ST elevation (NSTEMI) myocardial infarction SNOMED: 739401453 (2) ESRF (end stage renal failure) ICD Codes: N18.6 - End stage renal disease SNOMED: 01292706 (3) Diabetes mellitus ICD Codes: E11.9 - Type 2 diabetes mellitus without complications SNOMED: 28487704 (4) S/P AKA (above knee amputation) unilateral ICD Codes: Z89.619 - Acquired absence of unspecified leg above knee SNOMED: 25377235, 45560211, 390611481 Assessment/Plan serial troponin, echo, cardiology to see nephrology to arrange for HD sliding scale diabetic diet. IHSAN SILVA Dec 11, 2017 10:48
[2017-12-11 12:00] VITALS: BP 96/58
--- NOTE | 2017-12-11 13:37 | Consultation ---
Consult Note Consult Note [id number] NANCY QUICK M.D. Dec 11, 2017 13:37
--- NOTE | 2017-12-11 14:18 | Consultation ---
Consult Note Consult Note patient transferred to ER after OP dialysis for low BP and lethargy On HD M W Fr Asked to eval for dialysis management Patient examined- data reviewed. Past Medical History: DM, HTN, dementia, renal disease, dialysis Hx Hypertension: Yes Hx Diabetes: Yes Hx Dialysis: Yes - MWF ESRD Hx Neurological Problems: Yes - alzheimers Hx Dementia: Yes Hx Vaginal bleed Assessment/Plan admitted with low BP , Low K and high Troponin NSTEMI End-stage renal disease, on hemodialysis every Sunday, Sunday, and Sunday. Last dialysis was on Sunday12/10/17 Low K Other: 1. Type 2 diabetes. 2. Hypertension. 3. Anemia of chronic renal disease. & Vaginal bleed 4. Hypercholesterolemia. 5. Peripheral vascular disease. 6. Alzheimer's dementia. 7. ?? LUNG MASS PAST SURGICAL HISTORY: Significant for: 1. Right npuqh-brg-voot amputation. 2. Open reduction internal fixation of the left femoral neck on 07/20/2016. Plan: Monitor troponin ASA beta myrtle , Statins, Nitro K Supplement HD as needed albumin bolous gastric support TAQUERIA JACOBSON Dec 11, 2017 14:18
[2017-12-11] MEDS ORDERED: Vancomycin 1250mg/D5W 250ml IVPB ONE (15:00)
[2017-12-11] MEDS: Nitroglycerin Patch 0.2mg/hr TDERMAL SCH (15:13)
--- NOTE | 2017-12-11 15:37 | Cardiology Progress Note ---
Assessment/Plan Assessment/Plan [id number] Objective Last 24 Hour Vital Signs Date Time Temp Pulse Resp B/P (MAP) Pulse Ox O2 Delivery O2 Flow Rate FiO2 12/11/17 15:13 96/58 12/11/17 14:00 96/58 12/11/17 12:00 97.9 85 18 96/58 100 12/11/17 11:54 79 12/11/17 09:03 90 12/11/17 09:00 90 105/63 12/11/17 08:00 98.1 91 18 105/63 98 12/11/17 04:00 98.2 85 16 81/56 100 12/11/17 04:00 85 12/11/17 00:00 97.9 86 16 88/54 95 12/11/17 00:00 91 12/10/17 22:15 99.3 100 17 122/65 100 Room Air 12/10/17 22:15 98.9 100 17 122/65 100 Room Air 12/10/17 22:00 90/59 12/10/17 21:02 99.3 105 17 100/56 100 Room Air 12/10/17 19:02 98.9 107 19 90/59 99 Room Air 12/10/17 18:05 96.3 107 16 102/60 97 Room Air Intake and Output 12/10/17 12/11/17 19:00 07:00 # Bowel Movements 3 Laboratory Tests Test 12/10/17 18:55 12/11/17 07:10 White Blood Count 8.4 K/UL (4.8-10.8) 6.8 K/UL (4.8-10.8) Red Blood Count 4.10 M/UL (4.20-5.40) L 3.30 M/UL (4.20-5.40) L Hemoglobin 12.5 G/DL (12.0-16.0) 10.1 G/DL (12.0-16.0) L Hematocrit 38.0 % (37.0-47.0) 31.2 % (37.0-47.0) L Mean Corpuscular Volume 93 FL (80-99) 95 FL (80-99) Mean Corpuscular Hemoglobin 30.6 PG (27.0-31.0) 30.7 PG (27.0-31.0) Mean Corpuscular Hemoglobin Concent 33.0 G/DL (32.0-36.0) 32.5 G/DL (32.0-36.0) Red Cell Distribution Width 13.3 % (11.6-14.8) 13.4 % (11.6-14.8) Platelet Count 303 K/UL (150-450) 259 K/UL (150-450) Mean Platelet Volume 10.9 FL (6.5-10.1) H 11.3 FL (6.5-10.1) H Neutrophils (%) (Auto) 81.0 % (45.0-75.0) H % (45.0-75.0) Lymphocytes (%) (Auto) 10.1 % (20.0-45.0) L % (20.0-45.0) Monocytes (%) (Auto) 6.5 % (1.0-10.0) % (1.0-10.0) Eosinophils (%) (Auto) 1.3 % (0.0-3.0) % (0.0-3.0) Basophils (%) (Auto) 1.1 % (0.0-2.0) % (0.0-2.0) Sodium Level 135 MMOL/L (136-145) L 136 MMOL/L (136-145) Potassium Level 2.5 MMOL/L (3.5-5.1) *L 2.7 MMOL/L (3.5-5.1) *L Chloride Level 94 MMOL/L (98-107) L 96 MMOL/L (98-107) L Carbon Dioxide Level 32 MMOL/L (21-32) 31 MMOL/L (21-32) Anion Gap 10 mmol/L (5-15) 9 mmol/L (5-15) Blood Urea Nitrogen 25 mg/dL (7-18) H 37 mg/dL (7-18) H Creatinine 2.6 MG/DL (0.55-1.30) H 3.2 MG/DL (0.55-1.30) H Estimat Glomerular Filtration Rate 22.4 mL/min (>60) 17.6 mL/min (>60) Glucose Level 302 MG/DL (74-106) H 210 MG/DL (74-106) H Calcium Level 9.2 MG/DL (8.5-10.1) 9.4 MG/DL (8.5-10.1) Total Bilirubin 0.2 MG/DL (0.2-1.0) 0.2 MG/DL (0.2-1.0) Aspartate Amino Transf (AST/SGOT) 20 U/L (15-37) 19 U/L (15-37) Alanine Aminotransferase (ALT/SGPT) 26 U/L (12-78) 16 U/L (12-78) Alkaline Phosphatase 127 U/L (46-116) H 114 U/L (46-116) Total Creatine Kinase 53 U/L (26-308) Creatine Kinase MB 3.5 NG/ML (0.0-3.6) Creatine Kinase MB Relative Index 6.6 Troponin I 0.102 ng/mL (0.000-0.056) Total Protein 6.8 G/DL (6.4-8.2) 6.2 G/DL (6.4-8.2) L Albumin 2.8 G/DL (3.4-5.0) L 2.7 G/DL (3.4-5.0) L Globulin 4.0 g/dL 3.5 g/dL Albumin/Globulin Ratio 0.7 (1.0-2.7) L 0.8 (1.0-2.7) L Differential Total Cells Counted 100 Neutrophils % (Manual) 59 % (45-75) Lymphocytes % (Manual) 25 % (20-45) Monocytes % (Manual) 13 % (1-10) H Eosinophils % (Manual) 2 % (0-3) Basophils % (Manual) 1 % (0-2) Band Neutrophils 0 % (0-8) Platelet Estimate Adequate Platelet Morphology Normal Hypochromasia 1+ Anisocytosis 1+ Hemoglobin A1c 8.1 % (4.3-6.0) H Triglycerides Level 111 MG/DL (30-150) Cholesterol Level 185 MG/DL (< 200) LDL Cholesterol 96 mg/dL (<100) HDL Cholesterol 53 MG/DL (40-60) Cholesterol/HDL Ratio 3.5 (3.3-4.4) Thyroid Stimulating Hormone (TSH) 0.187 uiU/mL (0.358-3.740) TRACY HERNÁNDEZ Dec 11, 2017 15:37
[2017-12-11 16:00] VITALS: BP 106/57
--- NOTE | 2017-12-11 16:45 | Consultation ---
DATE OF CONSULTATION: 12/11/2017 INFECTIOUS DISEASE CONSULTATION CONSULTING PHYSICIAN: Tank Cook M.D. REFERRING PHYSICIAN: Lit Cerna M.D. REASON FOR CONSULTATION: Evaluation of the patient for possible sepsis. HISTORY OF PRESENT ILLNESS: The patient is a 67-year-old female with multiple medical problems, who was admitted to this medical center due to hypotension during dialysis. There is possible sepsis. Infectious Disease consultation has been requested for further evaluation of the patient and antibiotic management. The patient mentioned having chills prior to the admission. The patient never had any cough, runny nose, or sore throat. PAST MEDICAL HISTORY: 1. History of C. diff. 2. History of urinary tract infection. 3. History of left heel decubitus (grossly infected). 4. History of GI bleed. 5. History of vaginal bleed. 6. History of thickened endometrium and left adnexal mass. 7. End-stage renal disease, on hemodialysis. 8. Status post AV graft of left upper extremity. 9. History of dementia. 10. History of bilateral lower extremity DVT. 11. Diabetes. 12. Peripheral vascular disease. 13. History of methicillin-resistant Staphylococcus aureus colonization. MEDICATIONS: Currently, off of antibiotics. ALLERGIES: No known drug allergies. SOCIAL HISTORY: The patient lives in alf. FAMILY HISTORY: Not available. REVIEW OF SYSTEMS: Limited due to the patient's dementia, but however, much of the information is gathered as mentioned above. PHYSICAL EXAMINATION: VITAL SIGNS: Temperature 98, pulse 86, respiratory rate 18, and blood pressure 105/65. HEENT: No pale conjunctivae. No icterus. NECK: No lymphadenopathy. CHEST: Clear. HEART: S1 and S2. ABDOMEN: Soft and nontender. EXTREMITIES: The patient has a left AV graft in the area. NEUROLOGIC: Awake and confused. The patient is only oriented to place. SKIN: No rash. The patient has stage II sacral decubitus, not infected and unstageable left heel. EXTREMITIES: Right AKA, kepit-wlj-ater amputation. LABORATORY DATA: White blood cells 6, hemoglobin 10, and platelets 259,000. UA, 20 to 30 white blood cells and 5 to 10 red blood cells. BUN 37 and creatinine 3.2. ASSESSMENT: 1. Hypotension. 2. History of chills. 3. Rule out bacteremia. 4. Rule out urinary tract infection. PLAN: 1. We will start the patient on vancomycin and Rocephin. 2. Monitor CBC. 3. Monitor BMP. 4. Monitor cultures (blood, urine). 5. Based on the patient's clinical course and laboratories, we will do further recommendations. Thank you, Dr. Cerna, for allowing me to participate in the care of this patient. I will follow the patient with you during this hospitalization. Tank Cook M.D. DR: DEMETRIUS JOB#: [id number] CC:
[2017-12-11] MEDS: cefTRIAXone 1 GM in D5W 55 ML IVPB SCH (16:55)
[2017-12-11 20:00] VITALS: BP 149/70
[2017-12-11] MEDS: HydrALAZINE 10mg Tab ORAL SCH (21:15)
--- NOTE | 2017-12-11 21:30 | Consultation ---
DATE OF CONSULTATION: 12/11/2017 CARDIOLOGY CONSULTATION CONSULTING PHYSICIAN: Kaushik Franco M.D. ATTENDING/REFERRING PHYSICIAN: Lit Cerna M.D. REASON FOR REFERRAL: Abnormal cardiac enzymes. HISTORY OF PRESENT ILLNESS: There is a very elderly female, who is not really able to provide much information. Apparently, she is complaining of general weakness and postdialysis treatment. According to the automation control technician, she was actually acting normally although she has some element of dementia. She was able to complete her treatment as the blood pressure was low prior to the arrival of paramedics, but stabilized post. No treatment was given in the field. The patient denied any chest pain, no shortness of breath, no jugular venous distention, and no pedal edema were noted by the paramedics. The patient was brought to the emergency room at [facility], was seen by the emergency room physician, and as part of her blood work, of course, cardiac enzymes were checked and were abnormal. Her blood pressure was low, but did improve after administration of some bolus of fluids and this consultation has been requested for evaluation of abnormal cardiac enzymes. She has no chest pain, pressure, tightness, heaviness, or discomfort of any kind in her chest. She denies any dizziness or lightheadedness. No palpitation. No PND. No orthopnea. She is not ambulatory at all. PAST MEDICAL HISTORY: Positive for prior hospitalizations here. In fact, I saw her back in 05/2016, and she has history of end-stage renal disease on chronic hemodialysis, dementia, lower extremity deep venous thrombosis, history of chest pain with negative cardiac enzymes with normal LV systolic function previously, right [id number]-[id number] amputation, anemia, peripheral vascular disease, ESBL urinary tract infection, decubitus ulcers, and vaginal bleeding on prior occasions. ALLERGIES: She has no allergies to medications. SOCIAL HISTORY: She is a resident of convalescent facility. Does not smoke or drink alcoholic beverages. REVIEW OF SYSTEMS: GASTROINTESTINAL: She denies. PULMONARY: She denies. GENITOURINARY: She denies. NEUROLOGIC: She denies. PHYSICAL EXAMINATION: GENERAL: Shows to be elderly female, in no respiratory distress. She is lying flat in a hospital bed. NECK: Supple. No jugular venous distention. LUNGS: Clear to auscultation and percussion. CARDIAC: S1 is normal. S2 is normal. Regular rate and rhythm. No heaves, thrills, or gallops noted. ABDOMEN: Soft, nontender. Positive bowel sounds. EXTREMITIES: She has qbqho-oow-spak amputation on one side. NEUROLOGICAL: She is awake, alert, responsive, and in no respiratory distress. LABORATORY AND DIAGNOSTIC DATA: Her white count is 6.8, hemoglobin 10.1, and platelet count 259,000; 13 monocytes were noted on the automated differential. Sodium 137, potassium , chloride 96, bicarbonate 31, BUN 37, creatinine 2.2, and glucose of 210. Liver function tests are otherwise unremarkable. The first set of cardiac enzymes from last night was 0.102. Albumin 2.7. Total cholesterol is 185 with LDL of 96 and HDL of 53. Her TSH was 0.187, which is considered low. There are no x-rays from the emergency room available for review. Her electrocardiogram that was performed in the emergency room shows normal sinus rhythm, normal QRS axis, really no ST or T-wave abnormality of any significant degree and in direct comparison with prior EKGs from 05/11/2017, it is unchanged. ASSESSMENT AND PLAN: 1. Generalized weakness. 2. Abnormal cardiac enzyme with questionable significance in light of renal insufficiency. 3. End-stage renal disease, on hemodialysis. 4. Electrolyte abnormalities. Dr. Cerna, this patient was seen in cardiac consultation. She has no complaints of chest pains. The cardiac enzymes are likely abnormal because of end-stage renal disease that new assay at [facility] does identify coronary artery syndrome and myocardial infarction with levels greater than 0.6, her's is 0.1. I will repeat the EKG, echocardiogram, and of cardiac enzymes, but I am not suspicious of any coronary syndrome at this time. I will follow the patient along with you. Kaushik Franco M.D. DR: BRITTANY JOB#: [id number] CC:
[2017-12-12] VITALS: BP 128/82
[2017-12-12 04:00] VITALS: BP 136/66
[2017-12-12] MEDS: NovoLOG Insulin Flexpen SUBQ SCH ×4 (06:20→21:48)
[2017-12-12] MEDS: HydrALAZINE 10mg Tab ORAL SCH ×3 (06:24→21:34)
[2017-12-12 07:48] LABS: BASOPHILS % (AUTO) 2.1 % (0.0-2.0); EOSINOPHILS % (AUTO) 2.3 % (0.0-3.0); HEMATOCRIT 35.9 % (37.0-47.0); HEMOGLOBIN 11.6 G/DL (12.0-16.0); LYMPHOCYTES % (AUTO) 20.8 % (20.0-45.0); MEAN CORPUSCULAR VOLUME 94 FL (80-99); MONOCYTES % (AUTO) 13.2 % (1.0-10.0); NEUTROPHILS % (AUTO) 61.7 % (45.0-75.0); PLATELET COUNT 269 K/UL (150-450); RED BLOOD COUNT 3.83 M/UL (4.20-5.40); RED CELL DISTRIBUTION WIDTH 13.2 % (11.6-14.8); WHITE BLOOD COUNT 7.5 K/UL (4.8-10.8)
[2017-12-12 08:00] VITALS: BP 111/67
[2017-12-12 08:04] LABS: ALANINE AMINOTRANSFERASE 31 U/L (12-78); ALBUMIN 2.7 G/DL (3.4-5.0); ALBUMIN/GLOBULIN RATIO 0.8 (1.0-2.7); ALKALINE PHOSPHATASE 106 U/L (46-116); ANION GAP 9 mmol/L (5-15); ASPARTATE AMINO TRANSFERASE 21 U/L (15-37); BILIRUBIN,TOTAL 0.2 MG/DL (0.2-1.0); BLOOD UREA NITROGEN 59 mg/dL (7-18); CALCIUM 9.1 MG/DL (8.5-10.1); CARBON DIOXIDE 30 MMOL/L (21-32); CHLORIDE 97 MMOL/L (98-107); CREATININE 4.4 MG/DL (0.55-1.30); PHOSPHORUS 3.4 MG/DL (2.5-4.9); POTASSIUM 3.5 MMOL/L (3.5-5.1); SODIUM 135 MMOL/L (136-145)
[2017-12-12] MEDS: Eliquis 2.5mg tablet ORAL SCH ×2 (08:31→17:19)
[2017-12-12] MEDS: Aspirin Baby 81mg ORAL SCH (08:32)
[2017-12-12] MEDS ORDERED: Metoprolol 25mg tab ORAL SCH (09:00)
--- NOTE | 2017-12-12 10:19 | Nephrology Progress Note ---
Assessment/Plan Assessment NSTEMI troponin higher End-stage renal disease, on hemodialysis every Sunday, Sunday, and Sunday. Last dialysis was on Sunday12/10/17 Low K being corrected Other: 1. Type 2 diabetes. 2. Hypertension. 3. Anemia of chronic renal disease. & Vaginal bleed 4. Hypercholesterolemia. 5. Peripheral vascular disease. 6. Alzheimer's dementia. 7. ?? LUNG MASS PAST SURGICAL HISTORY: Significant for: 1. Right yqfax-qta-fosg amputation. 2. Open reduction internal fixation of the left femoral neck on 07/20/2016. Plan Plan: Monitor troponin ASA beta myrtle , Statins, Nitro K Supplement as needed HD 12/13 gastric support per ID Subjective ROS Limited/Unobtainable: No Constitutional: Reports: malaise, other - more responsive Objective Objective Last 24 Hour Vital Signs Date Time Temp Pulse Resp B/P (MAP) Pulse Ox O2 Delivery O2 Flow Rate FiO2 12/12/17 08:32 86 111/70 12/12/17 08:15 82 18 Room Air 21 12/12/17 08:00 97.0 86 18 111/67 96 Room Air 12/12/17 07:44 94 12/12/17 06:24 126/60 12/12/17 04:00 97.3 98 18 136/66 96 12/12/17 04:00 82 12/12/17 00:00 101 12/12/17 00:00 97.0 106 16 128/82 96 12/11/17 21:15 144/73 12/11/17 20:00 98.1 100 14 149/70 93 12/11/17 20:00 101 12/11/17 19:30 86 20 Room Air 21 12/11/17 16:00 98.1 90 18 106/57 96 12/11/17 15:39 87 12/11/17 15:13 96/58 12/11/17 14:00 96/58 12/11/17 12:00 97.9 85 18 96/58 100 12/11/17 11:54 79 Intake and Output 12/11/17 12/12/17 19:00 07:00 Intake Total 340 ml Balance 340 ml Intake Oral 340 ml # Voids 2 2 # Bowel Movements 2 Laboratory Tests 12/12/17 07:15: White Blood Count 7.5, Red Blood Count 3.83L, Hemoglobin 11.6L, Hematocrit 35.9L , Mean Corpuscular Volume 94, Mean Corpuscular Hemoglobin 30.3, Mean Corpuscular Hemoglobin Concent 32.4, Red Cell Distribution Width 13.2, Platelet Count 269, Mean Platelet Volume 10.7H, Neutrophils (%) (Auto) 61.7, Lymphocytes (%) (Auto) 20.8, Monocytes (%) (Auto) 13.2H, Eosinophils (%) (Auto) 2.3, Basophils (%) (Auto) 2.1H, Sodium Level 135L, Potassium Level 3.5, Chloride Level 97L, Carbon Dioxide Level 30, Anion Gap 9, Blood Urea Nitrogen 59H, Creatinine 4.4H, Estimat Glomerular Filtration Rate 12.2, Glucose Level 131H, Hemoglobin A1c 8.0H, Calcium Level 9.1, Phosphorus Level 3.4, Magnesium Level 2.0, Total Bilirubin 0.2, Aspartate Amino Transf (AST/SGOT) 21, Alanine Aminotransferase (ALT/SGPT) 31, Alkaline Phosphatase 106, Troponin I 0.179H, C- Reactive Protein, Quantitative 1.3H, Pro-B-Type Natriuretic Peptide 71567M, Total Protein 6.0L, Albumin 2.7L, Globulin 3.3, Albumin/Globulin Ratio 0.8L Height (Feet): 5 Height (Inches): 2.00 Weight (Pounds): 130 General Appearance: no apparent distress Cardiovascular: normal rate Respiratory/Chest: decreased breath sounds Abdomen: soft TAQUERIA JACOBSON Dec 12, 2017 10:19
[2017-12-12] MEDS ORDERED: Aspirin Baby 81mg ORAL ONE (10:30)
[2017-12-12 12:00] VITALS: BP 100/51
--- NOTE | 2017-12-12 12:01 | Infectious Diseases Prog Note ---
Assessment/Plan Assessment/Plan ASSESSMENT: Hypotension , SP SP chills. 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 diff. History of urinary tract infection. History of left heel decubitus (grossly infected). History of methicillin-resistant Staphylococcus aureus colonization History of GI bleed. History of vaginal bleed. History of thickened endometrium and left adnexal mass. End-stage renal disease, on hemodialysis. Status post AV graft of left upper extremity. History of dementia. History of bilateral lower extremity DVT. Diabetes. Peripheral vascular disease. Right AKA, hbhvl-jol-rlan amputation. PLAN: Cont the patient on vancomycin and Rocephin d# 2 Monitor CBC. Monitor BMP. Monitor cultures (blood, urine). Subjective Constitutional: Denies: no symptoms, fever, chills, fatigue, anorexia, drenching sweats, other Allergies: Coded Allergies: No Known Allergies (Unverified , 09/15/16) Objective Vital Signs Last 24 Hour Vital Signs Date Time Temp Pulse Resp B/P (MAP) Pulse Ox O2 Delivery O2 Flow Rate FiO2 12/12/17 08:32 86 111/70 12/12/17 08:15 82 18 Room Air 21 12/12/17 08:00 97.0 86 18 111/67 96 Room Air 12/12/17 07:44 94 12/12/17 06:24 126/60 12/12/17 04:00 97.3 98 18 136/66 96 12/12/17 04:00 82 12/12/17 00:00 101 12/12/17 00:00 97.0 106 16 128/82 96 12/11/17 21:15 144/73 12/11/17 20:00 98.1 100 14 149/70 93 12/11/17 20:00 101 12/11/17 19:30 86 20 Room Air 21 12/11/17 16:00 98.1 90 18 106/57 96 12/11/17 15:39 87 12/11/17 15:13 96/58 12/11/17 14:00 96/58 12/11/17 12:00 97.9 85 18 96/58 100 Height (Feet): 5 Height (Inches): 2.00 Weight (Pounds): 130 HEENT: atraumatic Respiratory/Chest: no respiratory distress Cardiovascular: regularly irregular Abdomen: normal bowel sounds Laboratory Tests Test 1/24/18 07:15 White Blood Count 7.5 K/UL (4.8-10.8) Red Blood Count 3.83 M/UL (4.20-5.40) L Hemoglobin 11.6 G/DL (12.0-16.0) L Hematocrit 35.9 % (37.0-47.0) L Mean Corpuscular Volume 94 FL (80-99) Mean Corpuscular Hemoglobin 30.3 PG (27.0-31.0) Mean Corpuscular Hemoglobin Concent 32.4 G/DL (32.0-36.0) Red Cell Distribution Width 13.2 % (11.6-14.8) Platelet Count 269 K/UL (150-450) Mean Platelet Volume 10.7 FL (6.5-10.1) H Neutrophils (%) (Auto) 61.7 % (45.0-75.0) Lymphocytes (%) (Auto) 20.8 % (20.0-45.0) Monocytes (%) (Auto) 13.2 % (1.0-10.0) H Eosinophils (%) (Auto) 2.3 % (0.0-3.0) Basophils (%) (Auto) 2.1 % (0.0-2.0) H Sodium Level 135 MMOL/L (136-145) L Potassium Level 3.5 MMOL/L (3.5-5.1) Chloride Level 97 MMOL/L (98-107) L Carbon Dioxide Level 30 MMOL/L (21-32) Anion Gap 9 mmol/L (5-15) Blood Urea Nitrogen 59 mg/dL (7-18) H Creatinine 4.4 MG/DL (0.55-1.30) H Estimat Glomerular Filtration Rate 12.2 mL/min (>60) Glucose Level 131 MG/DL (74-106) H Hemoglobin A1c 8.0 % (4.3-6.0) H Calcium Level 9.1 MG/DL (8.5-10.1) Phosphorus Level 3.4 MG/DL (2.5-4.9) Magnesium Level 2.0 MG/DL (1.8-2.4) Total Bilirubin 0.2 MG/DL (0.2-1.0) Aspartate Amino Transf (AST/SGOT) 21 U/L (15-37) Alanine Aminotransferase (ALT/SGPT) 31 U/L (12-78) Alkaline Phosphatase 106 U/L (46-116) Troponin I 0.179 ng/mL (0.000-0.056) C-Reactive Protein, Quantitative 1.3 mg/dL (0.00-0.90) H Pro-B-Type Natriuretic Peptide 24610 pg/mL (0-125) H Total Protein 6.0 G/DL (6.4-8.2) L Albumin 2.7 G/DL (3.4-5.0) L Globulin 3.3 g/dL Albumin/Globulin Ratio 0.8 (1.0-2.7) L Current Medications Medications (Trade) Dose Ordered Sig/Althea Route PRN Reason Start Time Stop Time Status Last Admin Dose Admin Acetaminophen (Tylenol) 650 mg Q4H PRN ORAL fever 12/10/17 22:00 01/09/18 21:59 Albuterol/ Ipratropium (Albuterol/ Ipratropium) 3 ml Q6HRT PRN HHN dyspnea 12/10/17 22:00 12/15/17 21:59 Apixaban (Eliquis) 2.5 mg BID ORAL 12/11/17 09:00 01/10/18 08:59 12/12/17 08:31 Aspirin (ASA) 325 mg DAILY ORAL 12/13/17 09:00 01/12/18 08:59 Atorvastatin Calcium (Lipitor) 10 mg BEDTIME ORAL 12/11/17 21:00 01/10/18 20:59 12/11/17 21:07 Ceftriaxone Sodium 1 gm/ Dextrose 55 ml @ 110 mls/hr Q24H IVPB 12/11/17 16:00 12/18/17 15:59 12/11/17 16:55 Clonidine HCl (Catapres Tab) 0.1 mg Q4H PRN ORAL For High Blood Pressure 12/10/17 22:00 01/09/18 21:59 Dextrose (Dextrose 50%) STAT PRN IV Hypoglycemia 12/10/17 22:00 01/09/18 21:59 Famotidine (Pepcid) 20 mg QHS ORAL 12/12/17 21:00 01/10/18 15:29 Hydralazine HCl (Apresoline) 10 mg EVERY 8 HOURS ORAL 12/11/17 22:00 01/10/18 21:59 12/12/17 06:24 Insulin Aspart (NovoLOG) BEFORE MEALS AND HS SUBQ 12/11/17 06:30 01/10/18 06:29 12/12/17 11:43 Metoprolol Tartrate (Lopressor) 25 mg DAILY ORAL 12/12/17 09:00 01/11/18 08:59 12/12/17 08:32 Nitroglycerin (Ntg) 1 patch Q24H TDERMAL 12/11/17 15:30 01/10/18 15:29 Ondansetron HCl (Zofran) 4 mg Q6H PRN IVP Nausea & Vomiting 12/10/17 22:00 01/09/18 21:59 Pantoprazole (Protonix) 40 mg DAILY ORAL 12/12/17 11:00 01/11/18 10:59 12/12/17 11:46 Polyethylene Glycol (Miralax) 17 gm HSPRN PRN ORAL Constipation 12/10/17 22:00 01/09/18 21:59 Quetiapine Fumarate (SEROquel) 12.5 mg BID ORAL 12/11/17 18:00 01/10/18 17:59 12/12/17 08:31 Vancomycin HCl (Vanco rx to dose) 1 ea DAILY PRN MISC Per rx protocol 12/11/17 13:45 01/10/18 13:44 Zolpidem Tartrate (Ambien) 5 mg HSPRN PRN ORAL Insomnia 12/10/17 22:00 12/17/17 21:59 NANCY QUICK M.D. Dec 12, 2017 12:01
--- NOTE | 2017-12-12 12:41 | Pulmonology Progress Note ---
Assessment/Plan Problems: (1) Non-ST elevation (NSTEMI) myocardial infarction (2) ESRF (end stage renal failure) (3) Diabetes mellitus (4) S/P AKA (above knee amputation) unilateral Assessment/Plan troponin higher f/u cardio recommendations check troponin check echo hd by nephrologis Subjective ROS Limited/Unobtainable: No Interval Events: no new complains Allergies: Coded Allergies: No Known Allergies (Unverified , 09/15/16) Objective Last 24 Hour Vital Signs Date Time Temp Pulse Resp B/P (MAP) Pulse Ox O2 Delivery O2 Flow Rate FiO2 12/12/17 12:00 97.0 70 18 100/51 96 Room Air 12/12/17 08:32 86 111/70 12/12/17 08:15 82 18 Room Air 21 12/12/17 08:00 97.0 86 18 111/67 96 Room Air 12/12/17 07:44 94 12/12/17 06:24 126/60 12/12/17 04:00 97.3 98 18 136/66 96 12/12/17 04:00 82 12/12/17 00:00 101 12/12/17 00:00 97.0 106 16 128/82 96 12/11/17 21:15 144/73 12/11/17 20:00 98.1 100 14 149/70 93 12/11/17 20:00 101 12/11/17 19:30 86 20 Room Air 21 12/11/17 16:00 98.1 90 18 106/57 96 12/11/17 15:39 87 12/11/17 15:13 96/58 12/11/17 14:00 96/58 Intake and Output 12/11/17 12/12/17 19:00 07:00 Intake Total 340 ml Balance 340 ml Intake Oral 340 ml # Voids 2 2 # Bowel Movements 2 General Appearance: WD/WN HEENT: normocephalic, atraumatic Respiratory/Chest: chest wall non-tender, lungs clear Cardiovascular: normal peripheral pulses, normal rate Abdomen: normal bowel sounds, soft, non tender Genitourinary: normal external genitalia 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/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 normal, no motor/sensory deficits Lymphatic: no neck adenopathy Laboratory Tests 12/12/17 07:15: White Blood Count 7.5, Red Blood Count 3.83L, Hemoglobin 11.6L, Hematocrit 35.9L , Mean Corpuscular Volume 94, Mean Corpuscular Hemoglobin 30.3, Mean Corpuscular Hemoglobin Concent 32.4, Red Cell Distribution Width 13.2, Platelet Count 269, Mean Platelet Volume 10.7H, Neutrophils (%) (Auto) 61.7, Lymphocytes (%) (Auto) 20.8, Monocytes (%) (Auto) 13.2H, Eosinophils (%) (Auto) 2.3, Basophils (%) (Auto) 2.1H, Sodium Level 135L, Potassium Level 3.5, Chloride Level 97L, Carbon Dioxide Level 30, Anion Gap 9, Blood Urea Nitrogen 59H, Creatinine 4.4H, Estimat Glomerular Filtration Rate 12.2, Glucose Level 131H, Hemoglobin A1c 8.0H, Calcium Level 9.1, Phosphorus Level 3.4, Magnesium Level 2.0, Total Bilirubin 0.2, Aspartate Amino Transf (AST/SGOT) 21, Alanine Aminotransferase (ALT/SGPT) 31, Alkaline Phosphatase 106, Troponin I 0.179H, C- Reactive Protein, Quantitative 1.3H, Pro-B-Type Natriuretic Peptide 16461Q, Total Protein 6.0L, Albumin 2.7L, Globulin 3.3, Albumin/Globulin Ratio 0.8L Current Medications Medications (Trade) Dose Ordered Sig/Althea Route PRN Reason Start Time Stop Time Status Last Admin Dose Admin Acetaminophen (Tylenol) 650 mg Q4H PRN ORAL fever 12/10/17 22:00 01/09/18 21:59 Albuterol/ Ipratropium (Albuterol/ Ipratropium) 3 ml Q6HRT PRN HHN dyspnea 12/10/17 22:00 12/15/17 21:59 Apixaban (Eliquis) 2.5 mg BID ORAL 12/11/17 09:00 01/10/18 08:59 12/12/17 08:31 Aspirin (ASA) 325 mg DAILY ORAL 12/13/17 09:00 01/12/18 08:59 Atorvastatin Calcium (Lipitor) 10 mg BEDTIME ORAL 12/11/17 21:00 01/10/18 20:59 12/11/17 21:07 Ceftriaxone Sodium 1 gm/ Dextrose 55 ml @ 110 mls/hr Q24H IVPB 12/11/17 16:00 12/18/17 15:59 12/11/17 16:55 Clonidine HCl (Catapres Tab) 0.1 mg Q4H PRN ORAL For High Blood Pressure 12/10/17 22:00 01/09/18 21:59 Dextrose (Dextrose 50%) STAT PRN IV Hypoglycemia 12/10/17 22:00 01/09/18 21:59 Famotidine (Pepcid) 20 mg QHS ORAL 12/12/17 21:00 01/10/18 15:29 Hydralazine HCl (Apresoline) 10 mg EVERY 8 HOURS ORAL 12/11/17 22:00 01/10/18 21:59 12/12/17 06:24 Insulin Aspart (NovoLOG) BEFORE MEALS AND HS SUBQ 12/11/17 06:30 01/10/18 06:29 12/12/17 11:43 Metoprolol Tartrate (Lopressor) 25 mg DAILY ORAL 12/12/17 09:00 01/11/18 08:59 12/12/17 08:32 Nitroglycerin (Ntg) 1 patch Q24H TDERMAL 12/11/17 15:30 01/10/18 15:29 Ondansetron HCl (Zofran) 4 mg Q6H PRN IVP Nausea & Vomiting 12/10/17 22:00 01/09/18 21:59 Pantoprazole (Protonix) 40 mg DAILY ORAL 12/12/17 11:00 01/11/18 10:59 12/12/17 11:46 Polyethylene Glycol (Miralax) 17 gm HSPRN PRN ORAL Constipation 12/10/17 22:00 01/09/18 21:59 Quetiapine Fumarate (SEROquel) 12.5 mg BID ORAL 12/11/17 18:00 01/10/18 17:59 12/12/17 08:31 Vancomycin HCl (Vanco rx to dose) 1 ea DAILY PRN MISC Per rx protocol 12/11/17 13:45 01/10/18 13:44 Zolpidem Tartrate (Ambien) 5 mg HSPRN PRN ORAL Insomnia 12/10/17 22:00 12/17/17 21:59 IHSAN SIVLA Dec 12, 2017 12:41
--- NOTE | 2017-12-12 13:57 | Wound Care Consultation ---
Wound Assessment Wound Assessment #1: Wound Number: 1 Wound Present on Admission: Yes New Wound: No Status Change of Wound: No Wound Location Body Site Modif: left Wound Location Body Site: foot Wound Type: other - thick dry scaly skin wtih hyperpigmentation Wound Drainage Amount: None Wound Drainage Odor: None/Absent Tissue Surrounding Wound: Intact Wound General Appearance: Clean/Dry Wound Assessment #2: Wound Number: 2 Wound Present on Admission: Yes New Wound: No Status Change of Wound: No Wound Location Body Site Modif: left Wound Location Body Site: sacral Wound Type: pressure ulcer Reggie Test: Does not Reggie Pressure Ulcer Stage: III - unstageable pressure ulcer appearing stage 3 as of now. Wound Thickness: Full Thickness Wound Length: 4.5 Wound Width: 4.5 Wound Depth: utd Percent of Wound Gibbon/Red: 50 Percent of Wound Bed Yellow/Wh: 50 Wound Drainage Description: Serosanguineous Wound Drainage Amount: Moderate Wound Drainage Odor: None/Absent Tissue Surrounding Wound: Macerated Wound General Appearance: Reddened, Draining, Necrotic Wound Assessment #3: Wound Number: 3 Wound Present on Admission: Yes New Wound: No Status Change of Wound: No Wound Location Body Site: other - coccyx left and right Wound Type: scar - full thickness scar tissue with red pigment Reggie Test: Does not Reggie Percent of Wound Gibbon/Red: 100 Wound Drainage Amount: None Wound Drainage Odor: None/Absent Tissue Surrounding Wound: Intact Wound General Appearance: Reddened Wound Assessment #4: Wound Number: 4 Wound Present on Admission: Yes New Wound: No Status Change of Wound: No Wound Location Body Site Modif: mid Wound Location Body Site: other - sacrococcygeal Wound Type: pressure ulcer Reggie Test: Does not Reggie Pressure Ulcer Stage: III - unstageable revelaing self to stage 3 as of now Wound Thickness: Full Thickness Wound Length: 2.0 Wound Width: 2.0 Wound Depth: utd Percent of Wound Gibbon/Red: 60 Percent of Wound Bed Yellow/Wh: 10 Percent of Wound Black/Brown: 10 Percent of Wound Purple/Maroon: 20 - noted surrounding tissue maroon in color at risk for further skin breakdown to periwound Wound Drainage Description: Serosanguineous Wound Drainage Amount: Moderate Wound Drainage Odor: None/Absent Tissue Surrounding Wound: Macerated Wound General Appearance: Reddened, Draining, Necrotic Wound Assessment #5: Wound Number: 5 Wound Present on Admission: Yes New Wound: No Status Change of Wound: No Wound Location Body Site Modif: left Wound Location Body Site: heel Wound Type: pressure ulcer Reggie Test: Does not Reggie Pressure Ulcer Stage: Deep Tissue Injury Wound Thickness: Full Thickness Wound Length: 6.0 Wound Width: 6.0 Wound Depth: utd Percent of Wound Black/Brown: 100 - noted skin intact maroon but mostly brown/black dry Wound Drainage Amount: None Wound Drainage Odor: None/Absent Tissue Surrounding Wound: Intact Wound General Appearance: Blackened Wound Comment #1 left foot thick dry scaly skin. #2 Left sacral unstageable pressure ulcer appearing stage 3. #3 coccyx left and right fullthickness scar tissue with red pigment #4 Mid sacrococcygeal unstageable pressure ulcer appearing stage 3 #5 Left heel deep tissue injury. Recommendation -Local wound care as ordered. -Apply low air loss SPR mattress. -Keep clean and dry. -Optimize nutrition. -Heel protectors. -Turn and reposition -Offload affected areas - Assess and notify MD for any further change of condition to skin noted and followup accordingly. GOVIND HERNANDES Dec 12, 2017 13:57
[2017-12-12] MEDS: Nitroglycerin Patch 0.2mg/hr TDERMAL SCH (14:02)
[2017-12-12] MEDS ORDERED: Promethazine/Codeine 5ml UD ORAL PRN (15:00)
--- NOTE | 2017-12-12 15:42 | Cardiology Report ---
APPROVED REPORT EXAM: Two-dimensional and M-mode echocardiogram with Doppler and color Doppler. INDICATION Congestive Heart Failure M-Mode DIMENSIONS IVSd1.4 (0.7-1.1cm)Left Atrium (MM)2.7 (1.6-4.0cm) LVDd4.5 (3.5-5.6cm)Aortic Root3.3 (2.0-3.7cm) PWd1.5 (0.7-1.1cm)Aortic Cusp Exc.2.0 (1.5-2.0cm) LVDs3.1 (2.5-4.0cm) PWs1.8 cm Normal left ventricular chamber size, systolic function and wall motion. Left ventricular ejection fraction estimated to be 60 %. Moderate left ventricular hypertrophy by 2-D. No evidence of pericardial effusion. Moderate left atrial enlargement. Right cardiac chamber sizes are within normal limits. Focal aortic valve sclerosis with adequate cusp excursion. Thickened mitral valve leaflets with normal excursion. Mitral annulus and aortic root calcification. Normal pulmonic valve structure. Normal tricuspid valve structure. IVC dilated at 2.4 cm with slight physiologic collapse suggestive of increased RA pressure. A color flow and spectral Doppler study was performed and revealed: Trace aortic regurgitation. Moderate mitral regurgitation. Mitral diastolic velocities suggest reduced left ventricular relaxation c/w mild LV diastolic dysfunction (Grade I ). Trace tricuspid regurgitation. Tricuspid systolic velocities suggests peak right ventricular systolic pressure of 25 mmHg. Moderate pulmonic regurgitation present.
[2017-12-12] MEDS: cefTRIAXone 1 GM in D5W 55 ML IVPB SCH (15:54)
[2017-12-12 16:10] VITALS: BP 110/63
[2017-12-12] MEDS ORDERED: NS 250 ML IVPB ONE (16:45)
--- NOTE | 2017-12-12 19:33 | Cardiology Progress Note ---
Assessment/Plan Assessment/Plan 1. Generalized weakness. 2. Abnormal cardiac enzyme liekly related to renal insufficiency. 3. End-stage renal disease, on hemodialysis. 4. Electrolyte abnormalities. lv fucntion normal repeat trop hope to dc tlel tomorrow if trop remains in presnt abn range duet o renal insuf ecotirn 81 , statin bb bedridden Subjective Cardiovascular: Denies: chest pain, lightheadedness, palpitations Respiratory: Denies: shortness of breath Gastrointestinal/Abdominal: Denies: abdominal pain Genitourinary: Denies: burning Objective Last 24 Hour Vital Signs Date Time Temp Pulse Resp B/P (MAP) Pulse Ox O2 Delivery O2 Flow Rate FiO2 12/12/17 17:00 77 12/12/17 16:10 97.0 73 18 110/63 96 Room Air 12/12/17 14:02 95/60 12/12/17 14:00 95/60 12/12/17 12:00 97.0 70 18 100/51 96 Room Air 12/12/17 11:39 72 12/12/17 08:32 86 111/70 12/12/17 08:15 82 18 Room Air 21 12/12/17 08:00 97.0 86 18 111/67 96 Room Air 12/12/17 07:44 94 12/12/17 06:24 126/60 12/12/17 04:00 97.3 98 18 136/66 96 12/12/17 04:00 82 12/12/17 00:00 101 12/12/17 00:00 97.0 106 16 128/82 96 12/11/17 21:15 144/73 12/11/17 20:00 98.1 100 14 149/70 93 12/11/17 20:00 101 General Appearance: no apparent distress, alert Neck: supple Cardiovascular: normal rate, regular rhythm Respiratory/Chest: lungs clear, normal breath sounds Abdomen: normal bowel sounds, non tender, soft Extremities: no swelling Intake and Output 12/11/17 12/12/17 19:00 07:00 Intake Total 340 ml Balance 340 ml Intake Oral 340 ml # Voids 2 2 # Bowel Movements 2 Laboratory Tests Test 12/12/17 07:15 12/12/17 17:20 White Blood Count 7.5 K/UL (4.8-10.8) Red Blood Count 3.83 M/UL (4.20-5.40) L Hemoglobin 11.6 G/DL (12.0-16.0) L Hematocrit 35.9 % (37.0-47.0) L Mean Corpuscular Volume 94 FL (80-99) Mean Corpuscular Hemoglobin 30.3 PG (27.0-31.0) Mean Corpuscular Hemoglobin Concent 32.4 G/DL (32.0-36.0) Red Cell Distribution Width 13.2 % (11.6-14.8) Platelet Count 269 K/UL (150-450) Mean Platelet Volume 10.7 FL (6.5-10.1) H Neutrophils (%) (Auto) 61.7 % (45.0-75.0) Lymphocytes (%) (Auto) 20.8 % (20.0-45.0) Monocytes (%) (Auto) 13.2 % (1.0-10.0) H Eosinophils (%) (Auto) 2.3 % (0.0-3.0) Basophils (%) (Auto) 2.1 % (0.0-2.0) H Sodium Level 135 MMOL/L (136-145) L Potassium Level 3.5 MMOL/L (3.5-5.1) Chloride Level 97 MMOL/L (98-107) L Carbon Dioxide Level 30 MMOL/L (21-32) Anion Gap 9 mmol/L (5-15) Blood Urea Nitrogen 59 mg/dL (7-18) H Creatinine 4.4 MG/DL (0.55-1.30) H Estimat Glomerular Filtration Rate 12.2 mL/min (>60) Glucose Level 131 MG/DL (74-106) H Hemoglobin A1c 8.0 % (4.3-6.0) H Calcium Level 9.1 MG/DL (8.5-10.1) Phosphorus Level 3.4 MG/DL (2.5-4.9) Magnesium Level 2.0 MG/DL (1.8-2.4) Total Bilirubin 0.2 MG/DL (0.2-1.0) Aspartate Amino Transf (AST/SGOT) 21 U/L (15-37) Alanine Aminotransferase (ALT/SGPT) 31 U/L (12-78) Alkaline Phosphatase 106 U/L (46-116) Troponin I 0.179 ng/mL (0.000-0.056) C-Reactive Protein, Quantitative 1.3 mg/dL (0.00-0.90) H Pro-B-Type Natriuretic Peptide 02332 pg/mL (0-125) H Total Protein 6.0 G/DL (6.4-8.2) L Albumin 2.7 G/DL (3.4-5.0) L Globulin 3.3 g/dL Albumin/Globulin Ratio 0.8 (1.0-2.7) L Random Vancomycin Level 14.1 ug/mL TRACY HERNÁNDEZ Dec 12, 2017 19:33
[2017-12-12 20:00] VITALS: BP 162/77
[2017-12-12] MEDS: Vitamin A&D Oint 2oz Tube TOPIC SCH (21:30)
[2017-12-12] MEDS ORDERED: Vancomycin 500mg in D5W 275ml IVPB ONE (22:00)
[2017-12-13] VITALS: BP 165/86
[2017-12-13 04:00] VITALS: BP 154/80
[2017-12-13] MEDS: HydrALAZINE 10mg Tab ORAL SCH ×2 (06:50→13:57)
[2017-12-13] MEDS: NovoLOG Insulin Flexpen SUBQ SCH ×4 (06:52→21:32)
[2017-12-13 08:18] VITALS: BP 152/77
[2017-12-13] MEDS: Metoprolol 25mg tab ORAL SCH ×3 (08:31→21:30)
[2017-12-13] MEDS: Eliquis 2.5mg tablet ORAL SCH ×2 (08:32→17:52)
[2017-12-13 08:52] LABS: BASOPHILS % (AUTO) 1.9 % (0.0-2.0); EOSINOPHILS % (AUTO) 1.4 % (0.0-3.0); HEMATOCRIT 40.4 % (37.0-47.0); HEMOGLOBIN 13.2 G/DL (12.0-16.0); LYMPHOCYTES % (AUTO) 15.5 % (20.0-45.0); MEAN CORPUSCULAR VOLUME 93 FL (80-99); MONOCYTES % (AUTO) 6.9 % (1.0-10.0); NEUTROPHILS % (AUTO) 74.3 % (45.0-75.0); PLATELET COUNT 314 K/UL (150-450); RED BLOOD COUNT 4.33 M/UL (4.20-5.40); RED CELL DISTRIBUTION WIDTH 13.3 % (11.6-14.8); WHITE BLOOD COUNT 6.4 K/UL (4.8-10.8)
[2017-12-13 09:29] LABS: ALANINE AMINOTRANSFERASE 35 U/L (12-78); ALBUMIN 2.7 G/DL (3.4-5.0); ALBUMIN/GLOBULIN RATIO 0.7 (1.0-2.7); ALKALINE PHOSPHATASE 120 U/L (46-116); ANION GAP 10 mmol/L (5-15); ASPARTATE AMINO TRANSFERASE 19 U/L (15-37); BILIRUBIN,TOTAL 0.2 MG/DL (0.2-1.0); BLOOD UREA NITROGEN 67 mg/dL (7-18); CARBON DIOXIDE 25 MMOL/L (21-32); CHLORIDE 94 MMOL/L (98-107); CREATININE 4.5 MG/DL (0.55-1.30); PHOSPHORUS 3.6 MG/DL (2.5-4.9); POTASSIUM 4.3 MMOL/L (3.5-5.1); SODIUM 129 MMOL/L (136-145)
--- NOTE | 2017-12-13 10:19 | Diagnostic Imaging Report ---
Indication: Cough Technique: One view of the chest Comparison: 05/18/2017 Findings: Lungs and pleural spaces are clear. Heart size is normal. Previously demonstrated PICC has been removed. There is better aeration of the left lung base Impression: No acute process
[2017-12-13] MEDS: Vitamin A&D Oint 2oz Tube TOPIC SCH ×2 (11:23→21:00)
--- NOTE | 2017-12-13 12:28 | Pulmonology Progress Note ---
Assessment/Plan Problems: (1) Non-ST elevation (NSTEMI) myocardial infarction (2) ESRF (end stage renal failure) (3) Diabetes mellitus (4) S/P AKA (above knee amputation) unilateral Assessment/Plan troponin lower again f/u cardio recommendations check troponin check echo hd by nephrologis dc to longterm if ok with training and development head. Subjective ROS Limited/Unobtainable: No Constitutional: Reports: no symptoms HEENT: Repors: no symptoms Respiratory: Reports: no symptoms Cardiovascular: Reports: no symptoms Gastrointestinal/Abdominal: Reports: no symptoms Genitourinary: Reports: no symptoms Allergies: Coded Allergies: No Known Allergies (Unverified , 09/15/16) Objective Last 24 Hour Vital Signs Date Time Temp Pulse Resp B/P (MAP) Pulse Ox O2 Delivery O2 Flow Rate FiO2 12/13/17 08:31 94 152/77 12/13/17 08:18 97.7 94 20 152/77 97 Room Air 12/13/17 07:41 93 12/13/17 07:15 92 18 Room Air 21 12/13/17 06:50 165/86 12/13/17 04:00 97.7 104 20 154/80 97 Room Air 12/13/17 04:00 105 12/13/17 00:00 97.0 99 20 165/86 97 Room Air 12/13/17 00:00 98 12/12/17 21:34 162/77 12/12/17 20:00 89 12/12/17 20:00 98.0 91 20 162/77 98 Room Air 12/12/17 19:33 87 18 Room Air 12/12/17 17:00 77 12/12/17 16:10 97.0 73 18 110/63 96 Room Air 12/12/17 14:02 95/60 12/12/17 14:00 95/60 Intake and Output 12/12/17 12/13/17 19:00 07:00 Intake Total 320 ml Balance 320 ml Intake Oral 320 ml # Voids 2 2 # Bowel Movements 1 General Appearance: WD/WN HEENT: normocephalic, atraumatic Respiratory/Chest: chest wall non-tender, lungs clear Breasts: no masses Cardiovascular: normal rate Abdomen: normal bowel sounds, soft, non tender Genitourinary: normal external genitalia Extremities: no cyanosis Skin: no ulcers 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, no motor/sensory deficits Microbiology Date/Time Source Procedure Growth Status 12/11/17 14:15 Blood Blood Culture - Preliminary NO GROWTH AFTER 24 HOURS Resulted 12/11/17 14:00 Blood Blood Culture - Preliminary NO GROWTH AFTER 24 HOURS Resulted 12/12/17 10:00 Sacral Wound Gram Stain Pending Resulted 12/12/17 10:00 Wound Culture - Preliminary Gram Negative Bacillus 1 Resulted Laboratory Tests 12/12/17 17:20: Random Vancomycin Level 14.1 12/13/17 08:38: White Blood Count 6.4, Red Blood Count 4.33, Hemoglobin 13.2, Hematocrit 40.4, Mean Corpuscular Volume 93, Mean Corpuscular Hemoglobin 30.6, Mean Corpuscular Hemoglobin Concent 32.7, Red Cell Distribution Width 13.3, Platelet Count 314, Mean Platelet Volume 11.5H, Neutrophils (%) (Auto) 74.3, Lymphocytes (%) (Auto) 15.5L, Monocytes (%) (Auto) 6.9, Eosinophils (%) (Auto) 1.4, Basophils (%) (Auto ) 1.9, Sodium Level 129L, Potassium Level 4.3, Chloride Level 94L, Carbon Dioxide Level 25, Anion Gap 10, Blood Urea Nitrogen 67H, Creatinine 4.5H, Estimat Glomerular Filtration Rate 11.9, Glucose Level 232#H, Calcium Level 9.0 , Phosphorus Level 3.6, Magnesium Level 1.9, Total Bilirubin 0.2, Aspartate Amino Transf (AST/SGOT) 19, Alanine Aminotransferase (ALT/SGPT) 35, Alkaline Phosphatase 120H, Troponin I 0.121H, Pro-B-Type Natriuretic Peptide 48721C, Total Protein 6.4, Albumin 2.7L, Globulin 3.7, Albumin/Globulin Ratio 0.7L Current Medications Medications (Trade) Dose Ordered Sig/Althea Route PRN Reason Start Time Stop Time Status Last Admin Dose Admin Acetaminophen (Tylenol) 650 mg Q4H PRN ORAL fever 12/10/17 22:00 01/09/18 21:59 Albuterol/ Ipratropium (Albuterol/ Ipratropium) 3 ml Q6HRT PRN HHN dyspnea 12/10/17 22:00 12/15/17 21:59 Apixaban (Eliquis) 2.5 mg BID ORAL 12/11/17 09:00 01/10/18 08:59 12/13/17 08:32 Aspirin (ASA) 325 mg DAILY ORAL 12/13/17 09:00 01/12/18 08:59 12/13/17 08:31 Atorvastatin Calcium (Lipitor) 10 mg BEDTIME ORAL 12/11/17 21:00 01/10/18 20:59 12/12/17 21:31 Ceftriaxone Sodium 1 gm/ Dextrose 55 ml @ 110 mls/hr Q24H IVPB 12/11/17 16:00 12/18/17 15:59 12/12/17 15:54 Clonidine HCl (Catapres Tab) 0.1 mg Q4H PRN ORAL For High Blood Pressure 12/10/17 22:00 01/09/18 21:59 Dextrose (Dextrose 50%) STAT PRN IV Hypoglycemia 12/10/17 22:00 01/09/18 21:59 Famotidine (Pepcid) 20 mg QHS ORAL 12/12/17 21:00 01/10/18 15:29 12/12/17 21:33 Hydralazine HCl (Apresoline) 10 mg EVERY 8 HOURS ORAL 12/11/17 22:00 01/10/18 21:59 12/13/17 06:50 Insulin Aspart (NovoLOG) BEFORE MEALS AND HS SUBQ 12/11/17 06:30 01/10/18 06:29 12/13/17 11:23 Metoprolol Tartrate (Lopressor) 25 mg Q12HR ORAL 12/13/17 09:00 01/12/18 08:59 12/13/17 08:31 Nitroglycerin (Ntg) 1 patch Q24H TDERMAL 12/11/17 15:30 01/10/18 15:29 Ondansetron HCl (Zofran) 4 mg Q6H PRN IVP Nausea & Vomiting 12/10/17 22:00 01/09/18 21:59 Pantoprazole (Protonix) 40 mg DAILY ORAL 12/12/17 11:00 01/11/18 10:59 12/13/17 08:31 Polyethylene Glycol (Miralax) 17 gm HSPRN PRN ORAL Constipation 12/10/17 22:00 01/09/18 21:59 Promethazine HCl/ Codeine (Phenergan with Codeine) 5 ml Q6H PRN ORAL For Cough 12/12/17 15:00 01/11/18 14:59 12/12/17 17:19 Quetiapine Fumarate (SEROquel) 12.5 mg BID ORAL 12/11/17 18:00 01/10/18 17:59 12/13/17 08:31 Vancomycin HCl (Vanco rx to dose) 1 ea DAILY PRN MISC Per rx protocol 12/11/17 13:45 01/10/18 13:44 Vitamin A/Vitamin D (A & D Oint) 1 applic EVERY 12 HOURS TOPIC 12/12/17 21:00 01/11/18 20:59 12/13/17 11:23 Zolpidem Tartrate (Ambien) 5 mg HSPRN PRN ORAL Insomnia 12/10/17 22:00 12/17/17 21:59 IHSAN SILVA Dec 13, 2017 12:28
[2017-12-13 12:42] VITALS: BP 104/64
--- NOTE | 2017-12-13 14:45 | Nephrology Progress Note ---
Assessment/Plan Problem List: (1) ESRF (end stage renal failure) (2) NSTEMI (non-ST elevated myocardial infarction) Assessment NSTEMI troponin higher End-stage renal disease, on hemodialysis every Sunday, Sunday, and Sunday. Last dialysis was on Sunday12/10/17 Low K being corrected Other: 1. Type 2 diabetes. 2. Hypertension. 3. Anemia of chronic renal disease. & Vaginal bleed 4. Hypercholesterolemia. 5. Peripheral vascular disease. 6. Alzheimer's dementia. 7. ?? LUNG MASS PAST SURGICAL HISTORY: Significant for: 1. Right [id number] amputation. 2. Open reduction internal fixation of the left femoral neck on 07/20/2016. Plan Plan: Monitor troponin ASA beta myrtle , Statins, Nitro K Supplement as needed HD 12/13 and 12/15 gastric support per ID Subjective ROS Limited/Unobtainable: No Constitutional: Reports: malaise, other - stronger Objective Objective Last 24 Hour Vital Signs Date Time Temp Pulse Resp B/P (MAP) Pulse Ox O2 Delivery O2 Flow Rate FiO2 12/13/17 13:57 104/64 12/13/17 12:42 97.7 80 18 104/64 96 Room Air 12/13/17 12:30 Room Air 12/13/17 11:41 83 12/13/17 09:25 Room Air 12/13/17 08:31 94 152/77 12/13/17 08:18 97.7 94 20 152/77 97 Room Air 12/13/17 07:41 93 12/13/17 07:15 92 18 Room Air 21 12/13/17 06:50 165/86 12/13/17 04:00 97.7 104 20 154/80 97 Room Air 12/13/17 04:00 105 12/13/17 00:00 97.0 99 20 165/86 97 Room Air 12/13/17 00:00 98 12/12/17 21:34 162/77 12/12/17 20:00 89 12/12/17 20:00 98.0 91 20 162/77 98 Room Air 12/12/17 19:33 87 18 Room Air 12/12/17 17:00 77 12/12/17 16:10 97.0 73 18 110/63 96 Room Air Intake and Output 12/12/17 12/13/17 19:00 07:00 Intake Total 320 ml Balance 320 ml Intake Oral 320 ml # Voids 2 2 # Bowel Movements 1 Laboratory Tests 12/12/17 17:20: Random Vancomycin Level 14.1 12/13/17 08:38: White Blood Count 6.4, Red Blood Count 4.33, Hemoglobin 13.2, Hematocrit 40.4, Mean Corpuscular Volume 93, Mean Corpuscular Hemoglobin 30.6, Mean Corpuscular Hemoglobin Concent 32.7, Red Cell Distribution Width 13.3, Platelet Count 314, Mean Platelet Volume 11.5H, Neutrophils (%) (Auto) 74.3, Lymphocytes (%) (Auto) 15.5L, Monocytes (%) (Auto) 6.9, Eosinophils (%) (Auto) 1.4, Basophils (%) (Auto ) 1.9, Sodium Level 129L, Potassium Level 4.3, Chloride Level 94L, Carbon Dioxide Level 25, Anion Gap 10, Blood Urea Nitrogen 67H, Creatinine 4.5H, Estimat Glomerular Filtration Rate 11.9, Glucose Level 232#H, Calcium Level 9.0 , Phosphorus Level 3.6, Magnesium Level 1.9, Total Bilirubin 0.2, Aspartate Amino Transf (AST/SGOT) 19, Alanine Aminotransferase (ALT/SGPT) 35, Alkaline Phosphatase 120H, Troponin I 0.121H, Pro-B-Type Natriuretic Peptide 90850E, Total Protein 6.4, Albumin 2.7L, Globulin 3.7, Albumin/Globulin Ratio 0.7L Height (Feet): 5 Height (Inches): 2.00 Weight (Pounds): 130 General Appearance: no apparent distress Cardiovascular: normal rate Respiratory/Chest: decreased breath sounds Abdomen: soft TAQUERIA JACOBSON Dec 13, 2017 14:45
[2017-12-13] MEDS: Imdur 30mg tab ORAL SCH (15:15)
[2017-12-13] MEDS: cefTRIAXone 1 GM in D5W 55 ML IVPB SCH (16:34)
[2017-12-13 16:49] VITALS: BP 100/64
--- NOTE | 2017-12-13 18:15 | Cardiology Progress Note ---
Assessment/Plan Assessment/Plan 1. Generalized weakness. 2. Abnormal cardiac enzyme liekly related to renal insufficiency. 3. End-stage renal disease, on hemodialysis. 4. Electrolyte abnormalities. lv fucntion normal repeat trop hope to dc tlel tomorrow if trop remains in presnt abn range duet o renal insuf ecotirn 81 , statin bb bedridden ok to dc to snf from cardiac view point Subjective Cardiovascular: Denies: chest pain, lightheadedness, palpitations Respiratory: Denies: shortness of breath Gastrointestinal/Abdominal: Denies: abdominal pain Genitourinary: Denies: burning Subjective c/o pain in buttock area Objective Last 24 Hour Vital Signs Date Time Temp Pulse Resp B/P (MAP) Pulse Ox O2 Delivery O2 Flow Rate FiO2 12/13/17 16:49 97.7 78 18 100/64 96 Room Air 12/13/17 15:15 92/54 12/13/17 15:00 89 12/13/17 13:57 104/64 12/13/17 12:42 97.7 80 18 104/64 96 Room Air 12/13/17 12:30 Room Air 12/13/17 11:41 83 12/13/17 09:25 Room Air 12/13/17 08:31 94 152/77 12/13/17 08:18 97.7 94 20 152/77 97 Room Air 12/13/17 07:41 93 12/13/17 07:15 92 18 Room Air 21 12/13/17 06:50 165/86 12/13/17 04:00 97.7 104 20 154/80 97 Room Air 12/13/17 04:00 105 12/13/17 00:00 97.0 99 20 165/86 97 Room Air 12/13/17 00:00 98 12/12/17 21:34 162/77 12/12/17 20:00 89 12/12/17 20:00 98.0 91 20 162/77 98 Room Air 12/12/17 19:33 87 18 Room Air General Appearance: alert Neck: supple Cardiovascular: normal rate, regular rhythm Respiratory/Chest: lungs clear, normal breath sounds Abdomen: normal bowel sounds, non tender, soft Extremities: no swelling Intake and Output 12/12/17 12/13/17 19:00 07:00 Intake Total 320 ml Balance 320 ml Intake Oral 320 ml # Voids 2 2 # Bowel Movements 1 Laboratory Tests Test 12/13/17 08:38 White Blood Count 6.4 K/UL (4.8-10.8) Red Blood Count 4.33 M/UL (4.20-5.40) Hemoglobin 13.2 G/DL (12.0-16.0) Hematocrit 40.4 % (37.0-47.0) Mean Corpuscular Volume 93 FL (80-99) Mean Corpuscular Hemoglobin 30.6 PG (27.0-31.0) Mean Corpuscular Hemoglobin Concent 32.7 G/DL (32.0-36.0) Red Cell Distribution Width 13.3 % (11.6-14.8) Platelet Count 314 K/UL (150-450) Mean Platelet Volume 11.5 FL (6.5-10.1) H Neutrophils (%) (Auto) 74.3 % (45.0-75.0) Lymphocytes (%) (Auto) 15.5 % (20.0-45.0) L Monocytes (%) (Auto) 6.9 % (1.0-10.0) Eosinophils (%) (Auto) 1.4 % (0.0-3.0) Basophils (%) (Auto) 1.9 % (0.0-2.0) Sodium Level 129 MMOL/L (136-145) L Potassium Level 4.3 MMOL/L (3.5-5.1) Chloride Level 94 MMOL/L (98-107) L Carbon Dioxide Level 25 MMOL/L (21-32) Anion Gap 10 mmol/L (5-15) Blood Urea Nitrogen 67 mg/dL (7-18) H Creatinine 4.5 MG/DL (0.55-1.30) H Estimat Glomerular Filtration Rate 11.9 mL/min (>60) Glucose Level 232 MG/DL (74-106) #H Calcium Level 9.0 MG/DL (8.5-10.1) Phosphorus Level 3.6 MG/DL (2.5-4.9) Magnesium Level 1.9 MG/DL (1.8-2.4) Total Bilirubin 0.2 MG/DL (0.2-1.0) Aspartate Amino Transf (AST/SGOT) 19 U/L (15-37) Alanine Aminotransferase (ALT/SGPT) 35 U/L (12-78) Alkaline Phosphatase 120 U/L (46-116) H Troponin I 0.121 ng/mL (0.000-0.056) C-Reactive Protein, Quantitative 1.7 mg/dL (0.00-0.90) H Pro-B-Type Natriuretic Peptide 06290 pg/mL (0-125) H Total Protein 6.4 G/DL (6.4-8.2) Albumin 2.7 G/DL (3.4-5.0) L Globulin 3.7 g/dL Albumin/Globulin Ratio 0.7 (1.0-2.7) L Microbiology Date/Time Source Procedure Growth Status 12/11/17 14:15 Blood Blood Culture - Preliminary NO GROWTH AFTER 24 HOURS Resulted 12/11/17 14:00 Blood Blood Culture - Preliminary NO GROWTH AFTER 24 HOURS Resulted 12/12/17 10:00 Sacral Wound Gram Stain - Final Resulted 12/12/17 10:00 Wound Culture - Preliminary Gram Negative Bacillus 1 Resulted TRACY HERNÁNDEZ Dec 13, 2017 18:15
[2017-12-13 20:00] VITALS: BP 99/74
[2017-12-14] VITALS (7 sets, daily range): BP systolic 90–141; BP diastolic 54–76
[2017-12-14] MEDS: NovoLOG Insulin Flexpen SUBQ SCH ×4 (06:32→22:33)
[2017-12-14 07:25] LABS: BASOPHILS % (AUTO) 1.1 % (0.0-2.0); HEMATOCRIT 35.8 % (37.0-47.0); HEMOGLOBIN 11.7 G/DL (12.0-16.0); LYMPHOCYTES % (AUTO) 32.5 % (20.0-45.0); MEAN CORPUSCULAR VOLUME 94 FL (80-99); MONOCYTES % (AUTO) 7.4 % (1.0-10.0); PLATELET COUNT 280 K/UL (150-450); RED BLOOD COUNT 3.81 M/UL (4.20-5.40); RED CELL DISTRIBUTION WIDTH 13.5 % (11.6-14.8); WHITE BLOOD COUNT 6.1 K/UL (4.8-10.8)
[2017-12-14 07:56] LABS: ALANINE AMINOTRANSFERASE 30 U/L (12-78); ALBUMIN 2.6 G/DL (3.4-5.0); ALBUMIN/GLOBULIN RATIO 0.8 (1.0-2.7); ALKALINE PHOSPHATASE 102 U/L (46-116); ANION GAP 8 mmol/L (5-15); ASPARTATE AMINO TRANSFERASE 20 U/L (15-37); BILIRUBIN,TOTAL 0.4 MG/DL (0.2-1.0); BLOOD UREA NITROGEN 54 mg/dL (7-18); CALCIUM 8.8 MG/DL (8.5-10.1); CARBON DIOXIDE 28 MMOL/L (21-32); CHLORIDE 99 MMOL/L (98-107); CREATININE 3.7 MG/DL (0.55-1.30); POTASSIUM 3.9 MMOL/L (3.5-5.1); SODIUM 135 MMOL/L (136-145)
[2017-12-14 08:17] LABS: PHOSPHORUS 3.9 MG/DL (2.5-4.9)
[2017-12-14] MEDS: Metoprolol 25mg tab ORAL SCH ×2 (08:29→22:30)
[2017-12-14] MEDS: Imdur 30mg tab ORAL SCH (08:30)
[2017-12-14] MEDS: Eliquis 2.5mg tablet ORAL SCH ×2 (08:30→17:31)
[2017-12-14] MEDS: Vitamin A&D Oint 2oz Tube TOPIC SCH ×2 (08:56→21:00)
[2017-12-14] MEDS ORDERED: Lisinopril 2.5mg tab ORAL SCH ×2 (09:00→21:00)
--- NOTE | 2017-12-14 09:37 | Nephrology Progress Note ---
Assessment/Plan Problem List: (1) ESRF (end stage renal failure) (2) NSTEMI (non-ST elevated myocardial infarction) Assessment NSTEMI troponin higher End-stage renal disease, on hemodialysis every Sunday, Sunday, and Sunday. Last dialysis was on Sunday12/10/17 Low K being corrected Other: 1. Type 2 diabetes. 2. Hypertension. 3. Anemia of chronic renal disease. & Vaginal bleed 4. Hypercholesterolemia. 5. Peripheral vascular disease. 6. Alzheimer's dementia. 7. ?? LUNG MASS PAST SURGICAL HISTORY: Significant for: 1. Right [id number] amputation. 2. Open reduction internal fixation of the left femoral neck on 07/20/2016. Plan Plan: Monitor troponin ASA beta myrtle , Statins, Nitro K Supplement as needed HD 12/15 gastric support per ID ? DC in am after HD Subjective ROS Limited/Unobtainable: No Constitutional: Reports: malaise Objective Objective Last 24 Hour Vital Signs Date Time Temp Pulse Resp B/P (MAP) Pulse Ox O2 Delivery O2 Flow Rate FiO2 12/14/17 08:30 136/76 12/14/17 08:29 136/76 12/14/17 08:29 92 136/76 12/14/17 08:00 98.6 92 20 136/76 97 Room Air 12/14/17 08:00 94 12/14/17 07:19 85 18 Room Air 21 12/14/17 04:00 87 12/14/17 04:00 98.0 84 18 122/63 99 Room Air 12/14/17 00:00 98.2 85 20 90/54 95 Room Air 12/13/17 21:00 88 99/74 12/13/17 20:06 88 18 Room Air 21 12/13/17 20:00 88 12/13/17 20:00 98.6 88 20 99/74 94 Room Air 12/13/17 16:49 97.7 78 18 100/64 96 Room Air 12/13/17 15:15 92/54 12/13/17 15:00 89 12/13/17 13:57 104/64 12/13/17 12:42 97.7 80 18 104/64 96 Room Air 12/13/17 12:30 Room Air 12/13/17 11:41 83 Intake and Output 12/13/17 12/14/17 19:00 07:00 Intake Total 640 ml Output Total 1360 ml Balance -720 ml Intake Oral 640 ml Output Hemodialysis UF 1360 ml # Voids 2 2 # Bowel Movements 2 Laboratory Tests 12/14/17 05:45: White Blood Count 6.1, Red Blood Count 3.81L, Hemoglobin 11.7L, Hematocrit 35.8L , Mean Corpuscular Volume 94, Mean Corpuscular Hemoglobin 30.5, Mean Corpuscular Hemoglobin Concent 32.5, Red Cell Distribution Width 13.5, Platelet Count 280, Mean Platelet Volume 10.1, Neutrophils (%) (Auto) 52.0, Lymphocytes ( %) (Auto) 32.5, Monocytes (%) (Auto) 7.4, Eosinophils (%) (Auto) 7.0H, Basophils (%) (Auto) 1.1, Sodium Level 135L, Potassium Level 3.9, Chloride Level 99, Carbon Dioxide Level 28, Anion Gap 8, Blood Urea Nitrogen 54H, Creatinine 3.7H, Estimat Glomerular Filtration Rate 14.9, Glucose Level 146H, Calcium Level 8.8, Phosphorus Level 3.9, Magnesium Level 1.9, Total Bilirubin 0.4, Aspartate Amino Transf (AST/SGOT) 20, Alanine Aminotransferase (ALT/SGPT) 30, Alkaline Phosphatase 102, Troponin I 0.082H, Pro-B-Type Natriuretic Peptide 9612H, Total Protein 6.0L, Albumin 2.6L, Globulin 3.4, Albumin/Globulin Ratio 0.8L, Random Vancomycin Level 11.5 Height (Feet): 5 Height (Inches): 2.00 Weight (Pounds): 130 General Appearance: no apparent distress Cardiovascular: regular rhythm Respiratory/Chest: decreased breath sounds Abdomen: soft TAQUERIA JACOBSON Dec 14, 2017 09:37
[2017-12-14] MEDS ORDERED: Imdur 30mg tab ORAL ONE (10:00)
[2017-12-14] MEDS ORDERED: Vancomycin 750mg/D5W 275ml IVPB ONE ×2 (10:00)
[2017-12-14] MEDS ORDERED: Vancomycin 750 MG in NS 275 ML IVPB ONE (11:00)
--- NOTE | 2017-12-14 11:40 | Infectious Diseases Prog Note ---
Assessment/Plan Assessment/Plan ASSESSMENT: Hypotension , SP SP chills. 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 diff. History of urinary tract infection. History of left heel decubitus (grossly infected). History of methicillin-resistant Staphylococcus aureus colonization EF : 60 %. History of GI bleed. History of vaginal bleed. History of thickened endometrium and left adnexal mass. End-stage renal disease, on hemodialysis. Status post AV graft of left upper extremity. History of dementia. History of bilateral lower extremity DVT. Diabetes. Peripheral vascular disease. Right AKA, [id number] amputation. PLAN: DC vancomycin and Rocephin d# 4 and monitor pt off of Ab Rx Monitor CBC. Monitor BMP. Monitor cultures (blood ) Subjective Constitutional: Denies: no symptoms, fever, chills, fatigue, anorexia, drenching sweats, other Allergies: Coded Allergies: No Known Allergies (Unverified , 09/15/16) Objective Vital Signs Last 24 Hour Vital Signs Date Time Temp Pulse Resp B/P (MAP) Pulse Ox O2 Delivery O2 Flow Rate FiO2 12/14/17 10:18 136/76 12/14/17 08:30 136/76 12/14/17 08:29 136/76 12/14/17 08:29 92 136/76 12/14/17 08:00 98.6 92 20 136/76 97 Room Air 12/14/17 08:00 94 12/14/17 07:19 85 18 Room Air 21 12/14/17 04:00 87 12/14/17 04:00 98.0 84 18 122/63 99 Room Air 12/14/17 00:00 98.2 85 20 90/54 95 Room Air 12/13/17 21:00 88 99/74 12/13/17 20:06 88 18 Room Air 21 12/13/17 20:00 88 12/13/17 20:00 98.6 88 20 99/74 94 Room Air 12/13/17 16:49 97.7 78 18 100/64 96 Room Air 12/13/17 15:15 92/54 12/13/17 15:00 89 12/13/17 13:57 104/64 12/13/17 12:42 97.7 80 18 104/64 96 Room Air 12/13/17 12:30 Room Air 12/13/17 11:41 83 Height (Feet): 5 Height (Inches): 2.00 Weight (Pounds): 130 HEENT: mucous membranes moist Respiratory/Chest: no respiratory distress Cardiovascular: regularly irregular Abdomen: no organomegaly Microbiology Date/Time Source Procedure Growth Status 12/11/17 14:15 Blood Blood Culture - Preliminary NO GROWTH AFTER 48 HOURS Resulted 12/11/17 14:00 Blood Blood Culture - Preliminary NO GROWTH AFTER 48 HOURS Resulted 12/12/17 10:00 Sacral Wound Gram Stain - Final Resulted 12/12/17 10:00 Wound Culture - Preliminary Gram Negative Bacillus 1 Strep Species, Gamma-Hemolytic Resulted Laboratory Tests Test 12/14/17 05:45 White Blood Count 6.1 K/UL (4.8-10.8) Red Blood Count 3.81 M/UL (4.20-5.40) L Hemoglobin 11.7 G/DL (12.0-16.0) L Hematocrit 35.8 % (37.0-47.0) L Mean Corpuscular Volume 94 FL (80-99) Mean Corpuscular Hemoglobin 30.5 PG (27.0-31.0) Mean Corpuscular Hemoglobin Concent 32.5 G/DL (32.0-36.0) Red Cell Distribution Width 13.5 % (11.6-14.8) Platelet Count 280 K/UL (150-450) Mean Platelet Volume 10.1 FL (6.5-10.1) Neutrophils (%) (Auto) 52.0 % (45.0-75.0) Lymphocytes (%) (Auto) 32.5 % (20.0-45.0) Monocytes (%) (Auto) 7.4 % (1.0-10.0) Eosinophils (%) (Auto) 7.0 % (0.0-3.0) H Basophils (%) (Auto) 1.1 % (0.0-2.0) Sodium Level 135 MMOL/L (136-145) L Potassium Level 3.9 MMOL/L (3.5-5.1) Chloride Level 99 MMOL/L (98-107) Carbon Dioxide Level 28 MMOL/L (21-32) Anion Gap 8 mmol/L (5-15) Blood Urea Nitrogen 54 mg/dL (7-18) H Creatinine 3.7 MG/DL (0.55-1.30) H Estimat Glomerular Filtration Rate 14.9 mL/min (>60) Glucose Level 146 MG/DL (74-106) H Calcium Level 8.8 MG/DL (8.5-10.1) Phosphorus Level 3.9 MG/DL (2.5-4.9) Magnesium Level 1.9 MG/DL (1.8-2.4) Total Bilirubin 0.4 MG/DL (0.2-1.0) Aspartate Amino Transf (AST/SGOT) 20 U/L (15-37) Alanine Aminotransferase (ALT/SGPT) 30 U/L (12-78) Alkaline Phosphatase 102 U/L (46-116) Troponin I 0.082 ng/mL (0.000-0.056) Pro-B-Type Natriuretic Peptide 9612 pg/mL (0-125) H Total Protein 6.0 G/DL (6.4-8.2) L Albumin 2.6 G/DL (3.4-5.0) L Globulin 3.4 g/dL Albumin/Globulin Ratio 0.8 (1.0-2.7) L Random Vancomycin Level 11.5 ug/mL Current Medications Medications (Trade) Dose Ordered Sig/Althea Route PRN Reason Start Time Stop Time Status Last Admin Dose Admin Acetaminophen (Tylenol) 650 mg Q4H PRN ORAL fever 12/10/17 22:00 01/09/18 21:59 12/14/17 00:34 Albuterol/ Ipratropium (Albuterol/ Ipratropium) 3 ml Q6HRT PRN HHN dyspnea 12/10/17 22:00 12/15/17 21:59 Apixaban (Eliquis) 2.5 mg BID ORAL 12/11/17 09:00 01/10/18 08:59 12/14/17 08:30 Aspirin (ASA) 325 mg DAILY ORAL 12/13/17 09:00 01/12/18 08:59 12/14/17 08:29 Atorvastatin Calcium (Lipitor) 10 mg BEDTIME ORAL 12/11/17 21:00 01/10/18 20:59 12/13/17 21:29 Ceftriaxone Sodium 1 gm/ Dextrose 55 ml @ 110 mls/hr Q24H IVPB 12/11/17 16:00 12/18/17 15:59 12/13/17 16:34 Clonidine HCl (Catapres Tab) 0.1 mg Q4H PRN ORAL For High Blood Pressure 12/10/17 22:00 01/09/18 21:59 Dextrose (Dextrose 50%) STAT PRN IV Hypoglycemia 12/10/17 22:00 01/09/18 21:59 Famotidine (Pepcid) 20 mg QHS ORAL 12/12/17 21:00 01/10/18 15:29 12/13/17 21:29 Insulin Aspart (NovoLOG) BEFORE MEALS AND HS SUBQ 12/11/17 06:30 01/10/18 06:29 12/14/17 06:32 Isosorbide Mononitrate (Imdur) 60 mg DAILY ORAL 12/15/17 09:00 01/14/18 08:59 Lisinopril (Zestril) 2.5 mg Q12HR ORAL 12/14/17 21:00 01/13/18 20:59 Metoprolol Tartrate (Lopressor) 25 mg Q12HR ORAL 12/13/17 09:00 01/12/18 08:59 12/14/17 08:29 Ondansetron HCl (Zofran) 4 mg Q6H PRN IVP Nausea & Vomiting 12/10/17 22:00 01/09/18 21:59 Pantoprazole (Protonix) 40 mg DAILY ORAL 12/12/17 11:00 01/11/18 10:59 12/14/17 08:29 Polyethylene Glycol (Miralax) 17 gm HSPRN PRN ORAL Constipation 12/10/17 22:00 01/09/18 21:59 Promethazine HCl/ Codeine (Phenergan with Codeine) 5 ml Q6H PRN ORAL For Cough 12/12/17 15:00 01/11/18 14:59 12/12/17 17:19 Quetiapine Fumarate (SEROquel) 12.5 mg BID ORAL 12/11/17 18:00 01/10/18 17:59 12/14/17 08:29 Vancomycin HCl (Vanco rx to dose) 1 ea DAILY PRN MISC Per rx protocol 12/11/17 13:45 01/10/18 13:44 Vancomycin HCl 750 mg/Sodium Chloride 275 ml @ 183.708 mls/hr ONCE ONCE IVPB 12/14/17 11:00 12/14/17 12:29 12/14/17 11:10 Vitamin A/Vitamin D (A & D Oint) 1 applic EVERY 12 HOURS TOPIC 12/12/17 21:00 01/11/18 20:59 12/14/17 08:56 Zolpidem Tartrate (Ambien) 5 mg HSPRN PRN ORAL Insomnia 12/10/17 22:00 12/17/17 21:59 NANCY QUICK M.D. Dec 14, 2017 11:40
--- NOTE | 2017-12-14 15:32 | Consultation ---
History of Present Illness General Date patient seen: Dec 12, 2017 Chief Complaint: Generalized Weakness Present Illness HPI 67-year-old female with multiple medical problems, who was admitted to this medical center due to hypotension during dialysis. the pt has been agitated and pw waxing and waning of consciousness. the pt is alert and oriented to self. the pt has cognitive impairment. Allergies: Coded Allergies: No Known Allergies (Unverified , 09/15/16) Medication History Scheduled Amino Acids/Protein Hydrolys (Pro-Stat Liquid), 45 ML ORAL TWICE A DAY, ( Reported) Apixaban (Eliquis), 10 MG PO BID Aspirin* (Aspirin*), 81 MG ORAL DAILY, (Reported) Atorvastatin Calcium* (Atorvastatin Calcium*), 10 MG ORAL BEDTIME, (Reported) Collagenase Clostridium Hist. (Santyl), 1 APPLIC TP DAILY, (Reported) Docusate Sodium* (Docusate Sodium*), 100 MG ORAL THREE TIMES A DAY, (Reported) Esomeprazole Magnesium (Nexium), 40 MG ORAL DAILY, (Reported) Ferrous Sulfate* (Ferrous Sulfate*), 325 MG ORAL DAILY, (Reported) Hydralazine Hcl* (Hydralazine Hcl*), 25 MG ORAL EVERY 8 HOURS, (Reported) Ibuprofen* (Motrin*), 400 MG ORAL Q6H, (Reported) Lorazepam* (Lorazepam*), 2 MG ORAL DAILY, (Reported) Metoclopramide Hcl* (Metoclopramide Hcl*), 5 MG ORAL EVERY 6 HOURS, (Reported) Metoprolol Tartrate* (Metoprolol Tartrate*), 50 MG ORAL DAILY, (Reported) Pantoprazole* (Protonix*), 40 MG ORAL DAILY, (Reported) Polyethylene Glycol 3350* (Miralax*), 17 GM ORAL BEDTIME, (Reported) Quetiapine Fumarate* (Seroquel*), 12.5 MG ORAL BID, (Reported) Sucralfate* (Carafate*), 1 GM ORAL BEDTIME, (Reported) [Nephro Aid], 1 TAB PO DAILY, (Reported) Scheduled PRN Acetaminophen* (Acetaminophen 325MG Tablet*), 650 MG ORAL Q4HR PRN for Mild Pain (Pain Scale 1-3), (Reported) Morphine Sulfate* (Morphine Sulfate*), 2 MG IVP Q4HR PRN for For Pain, (Reported ) Nitroglycerin (Nitroglycerin), 0.4 MG SL for Prn Chest Pain, (Reported) Ondansetron* (Zofran*), 4 MG IVP Q6H PRN for Nausea & Vomiting, (Reported) Ondansetron* (Zofran*), 4 MG ORAL Q6H PRN for Nausea & Vomiting, (Reported) Temazepam (Temazepam*), 15 MG ORAL HS PRN for Insomnia, (Reported) Miscellaneous Medications Insulin Aspart (Novolog), 100 UNIT SQ, (Reported) Insuln Asp Prt/Insulin Aspart (Novolog Mix 70-30 Flexpen Syrn), 100 UNIT SQ, ( Reported) Patient History Limited by: medical condition History Provided By: Patient, Medical Record, PMD Healthcare decision maker Resuscitation status Full Code Advanced Directive on File Yes Past Medical/Surgical History Past Medical/Surgical History: (1) ATN (acute tubular necrosis) (2) Aspiration pneumonia (3) Lung mass (4) Vaginal bleeding (5) Fever (6) DVT (deep venous thrombosis) (7) Anemia (8) Sepsis (9) Hemorrhagic shock (10) Gastric polyp (11) Acute encephalopathy (12) ESRF (end stage renal failure) (13) Episode of generalized weakness (14) Diabetes mellitus (15) Non-ST elevation (NSTEMI) myocardial infarction (16) NSTEMI (non-ST elevated myocardial infarction) Review of Systems Psychiatric: Reports: prior hx, anxiety, depressed feelings, emotional problems Physical Exam General Appearance: no apparent distress, alert, confused, agitated Last 24 Hour Vital Signs Date Time Temp Pulse Resp B/P (MAP) Pulse Ox O2 Delivery O2 Flow Rate FiO2 12/14/17 12:00 97.7 81 20 103/57 96 Room Air 12/14/17 11:45 Room Air 12/14/17 10:18 136/76 12/14/17 08:40 Room Air 12/14/17 08:30 136/76 12/14/17 08:29 136/76 12/14/17 08:29 92 136/76 12/14/17 08:00 98.6 92 20 136/76 97 Room Air 12/14/17 08:00 94 12/14/17 07:19 85 18 Room Air 21 12/14/17 04:00 87 12/14/17 04:00 98.0 84 18 122/63 99 Room Air 12/14/17 00:00 98.2 85 20 90/54 95 Room Air 12/13/17 21:00 88 99/74 12/13/17 20:06 88 18 Room Air 21 12/13/17 20:00 88 12/13/17 20:00 98.6 88 20 99/74 94 Room Air 12/13/17 16:49 97.7 78 18 100/64 96 Room Air Intake and Output 12/13/17 12/14/17 19:00 07:00 Intake Total 640 ml Output Total 1360 ml Balance -720 ml Intake Oral 640 ml Output Hemodialysis UF 1360 ml # Voids 2 2 # Bowel Movements 2 Laboratory Tests Test 12/14/17 05:45 White Blood Count 6.1 K/UL (4.8-10.8) Red Blood Count 3.81 M/UL (4.20-5.40) L Hemoglobin 11.7 G/DL (12.0-16.0) L Hematocrit 35.8 % (37.0-47.0) L Mean Corpuscular Volume 94 FL (80-99) Mean Corpuscular Hemoglobin 30.5 PG (27.0-31.0) Mean Corpuscular Hemoglobin Concent 32.5 G/DL (32.0-36.0) Red Cell Distribution Width 13.5 % (11.6-14.8) Platelet Count 280 K/UL (150-450) Mean Platelet Volume 10.1 FL (6.5-10.1) Neutrophils (%) (Auto) 52.0 % (45.0-75.0) Lymphocytes (%) (Auto) 32.5 % (20.0-45.0) Monocytes (%) (Auto) 7.4 % (1.0-10.0) Eosinophils (%) (Auto) 7.0 % (0.0-3.0) H Basophils (%) (Auto) 1.1 % (0.0-2.0) Sodium Level 135 MMOL/L (136-145) L Potassium Level 3.9 MMOL/L (3.5-5.1) Chloride Level 99 MMOL/L (98-107) Carbon Dioxide Level 28 MMOL/L (21-32) Anion Gap 8 mmol/L (5-15) Blood Urea Nitrogen 54 mg/dL (7-18) H Creatinine 3.7 MG/DL (0.55-1.30) H Estimat Glomerular Filtration Rate 14.9 mL/min (>60) Glucose Level 146 MG/DL (74-106) H Calcium Level 8.8 MG/DL (8.5-10.1) Phosphorus Level 3.9 MG/DL (2.5-4.9) Magnesium Level 1.9 MG/DL (1.8-2.4) Total Bilirubin 0.4 MG/DL (0.2-1.0) Aspartate Amino Transf (AST/SGOT) 20 U/L (15-37) Alanine Aminotransferase (ALT/SGPT) 30 U/L (12-78) Alkaline Phosphatase 102 U/L (46-116) Troponin I 0.082 ng/mL (0.000-0.056) Pro-B-Type Natriuretic Peptide 9612 pg/mL (0-125) H Total Protein 6.0 G/DL (6.4-8.2) L Albumin 2.6 G/DL (3.4-5.0) L Globulin 3.4 g/dL Albumin/Globulin Ratio 0.8 (1.0-2.7) L Random Vancomycin Level 11.5 ug/mL Height (Feet): 5 Height (Inches): 2.00 Weight (Pounds): 130 Medications Current Medications Medications (Trade) Dose Ordered Sig/Althea Route PRN Reason Start Time Stop Time Status Last Admin Dose Admin Acetaminophen (Tylenol) 650 mg Q4H PRN ORAL fever 12/10/17 22:00 01/09/18 21:59 12/14/17 00:34 Albuterol/ Ipratropium (Albuterol/ Ipratropium) 3 ml Q6HRT PRN HHN dyspnea 12/10/17 22:00 12/15/17 21:59 Apixaban (Eliquis) 2.5 mg BID ORAL 12/11/17 09:00 01/10/18 08:59 12/14/17 08:30 Aspirin (ASA) 325 mg DAILY ORAL 12/13/17 09:00 01/12/18 08:59 12/14/17 08:29 Atorvastatin Calcium (Lipitor) 10 mg BEDTIME ORAL 12/11/17 21:00 01/10/18 20:59 12/13/17 21:29 Clonidine HCl (Catapres Tab) 0.1 mg Q4H PRN ORAL For High Blood Pressure 12/10/17 22:00 01/09/18 21:59 Dextrose (Dextrose 50%) STAT PRN IV Hypoglycemia 12/10/17 22:00 01/09/18 21:59 Famotidine (Pepcid) 20 mg QHS ORAL 12/12/17 21:00 01/10/18 15:29 12/13/17 21:29 Insulin Aspart (NovoLOG) BEFORE MEALS AND HS SUBQ 12/11/17 06:30 01/10/18 06:29 12/14/17 11:43 Isosorbide Mononitrate (Imdur) 60 mg DAILY ORAL 12/15/17 09:00 01/14/18 08:59 Lisinopril (Zestril) 2.5 mg Q12HR ORAL 12/14/17 21:00 01/13/18 20:59 Metoprolol Tartrate (Lopressor) 25 mg Q12HR ORAL 12/13/17 09:00 01/12/18 08:59 12/14/17 08:29 Ondansetron HCl (Zofran) 4 mg Q6H PRN IVP Nausea & Vomiting 12/10/17 22:00 01/09/18 21:59 Pantoprazole (Protonix) 40 mg DAILY ORAL 12/12/17 11:00 01/11/18 10:59 12/14/17 08:29 Polyethylene Glycol (Miralax) 17 gm HSPRN PRN ORAL Constipation 12/10/17 22:00 01/09/18 21:59 Promethazine HCl/ Codeine (Phenergan with Codeine) 5 ml Q6H PRN ORAL For Cough 12/12/17 15:00 01/11/18 14:59 12/12/17 17:19 Quetiapine Fumarate (SEROquel) 12.5 mg BID ORAL 12/11/17 18:00 01/10/18 17:59 12/14/17 08:29 Vitamin A/Vitamin D (A & D Oint) 1 applic EVERY 12 HOURS TOPIC 12/12/17 21:00 01/11/18 20:59 12/14/17 08:56 Zolpidem Tartrate (Ambien) 5 mg HSPRN PRN ORAL Insomnia 12/10/17 22:00 12/17/17 21:59 Assessment/Plan Status: stable Assessment/Plan encephalopathy due to general medical condition -seroquel 12.5 mg po bid -seroquel prn Belia Grant M.D. Dec 14, 2017 15:32
--- NOTE | 2017-12-14 15:33 | General Progress Note ---
Assessment/Plan Status: not improved, unchanged Assessment/Plan encephalopathy due to [facility] -cont seroquel Subjective Date patient seen: Dec 14, 2017 Neurologic/Psychiatric: Reports: anxiety, emotional problems Allergies: Coded Allergies: No Known Allergies (Unverified , 09/15/16) Objective Last 24 Hour Vital Signs Date Time Temp Pulse Resp B/P (MAP) Pulse Ox O2 Delivery O2 Flow Rate FiO2 12/14/17 12:00 97.7 81 20 103/57 96 Room Air 12/14/17 11:45 Room Air 12/14/17 10:18 136/76 12/14/17 08:40 Room Air 12/14/17 08:30 136/76 12/14/17 08:29 136/76 12/14/17 08:29 92 136/76 12/14/17 08:00 98.6 92 20 136/76 97 Room Air 12/14/17 08:00 94 12/14/17 07:19 85 18 Room Air 21 12/14/17 04:00 87 12/14/17 04:00 98.0 84 18 122/63 99 Room Air 12/14/17 00:00 98.2 85 20 90/54 95 Room Air 12/13/17 21:00 88 99/74 12/13/17 20:06 88 18 Room Air 21 12/13/17 20:00 88 12/13/17 20:00 98.6 88 20 99/74 94 Room Air 12/13/17 16:49 97.7 78 18 100/64 96 Room Air Intake and Output 12/13/17 12/14/17 19:00 07:00 Intake Total 640 ml Output Total 1360 ml Balance -720 ml Intake Oral 640 ml Output Hemodialysis UF 1360 ml # Voids 2 2 # Bowel Movements 2 Laboratory Tests 12/14/17 05:45: White Blood Count 6.1, Red Blood Count 3.81L, Hemoglobin 11.7L, Hematocrit 35.8L , Mean Corpuscular Volume 94, Mean Corpuscular Hemoglobin 30.5, Mean Corpuscular Hemoglobin Concent 32.5, Red Cell Distribution Width 13.5, Platelet Count 280, Mean Platelet Volume 10.1, Neutrophils (%) (Auto) 52.0, Lymphocytes ( %) (Auto) 32.5, Monocytes (%) (Auto) 7.4, Eosinophils (%) (Auto) 7.0H, Basophils (%) (Auto) 1.1, Sodium Level 135L, Potassium Level 3.9, Chloride Level 99, Carbon Dioxide Level 28, Anion Gap 8, Blood Urea Nitrogen 54H, Creatinine 3.7H, Estimat Glomerular Filtration Rate 14.9, Glucose Level 146H, Calcium Level 8.8, Phosphorus Level 3.9, Magnesium Level 1.9, Total Bilirubin 0.4, Aspartate Amino Transf (AST/SGOT) 20, Alanine Aminotransferase (ALT/SGPT) 30, Alkaline Phosphatase 102, Troponin I 0.082H, Pro-B-Type Natriuretic Peptide 9612H, Total Protein 6.0L, Albumin 2.6L, Globulin 3.4, Albumin/Globulin Ratio 0.8L, Random Vancomycin Level 11.5 Height (Feet): 5 Height (Inches): 2.00 Weight (Pounds): 130 General Appearance: no apparent distress, alert Neurologic: oriented x 3 - AAOx2, depressed affect Belia Grant M.D. Dec 14, 2017 15:33
[2017-12-14] MEDS ORDERED: Albuterol/Ipratropium 3ml neb HHN PRN (19:00)
[2017-12-14] MEDS ORDERED: Promethazine/Codeine 5ml UD ORAL PRN (21:00)
[2017-12-14] MEDS ORDERED: Miralax 17gm pkt ORAL PRN (22:00)
[2017-12-14] MEDS ORDERED: Zolpidem 5mg tab ORAL PRN (22:00)
[2017-12-14] MEDS: Lisinopril 2.5mg tab ORAL SCH (22:30)
[2017-12-15 03:45] VITALS: BP 121/66
[2017-12-15] MEDS: NovoLOG Insulin Flexpen SUBQ SCH ×3 (06:42→16:30)
[2017-12-15 08:32] VITALS: BP 135/70
[2017-12-15] MEDS ORDERED: Eliquis 2.5mg tablet ORAL SCH (09:00)
[2017-12-15] MEDS ORDERED: Imdur 30mg tab ORAL SCH ×2 (09:00)
[2017-12-15] MEDS: Lisinopril 2.5mg tab ORAL SCH (09:43)
[2017-12-15] MEDS: Metoprolol 25mg tab ORAL SCH (09:44)
[2017-12-15] MEDS: Vitamin A&D Oint 2oz Tube TOPIC SCH (09:51)
--- NOTE | 2017-12-15 10:02 | Pulmonology Progress Note ---
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 Subjective ROS Limited/Unobtainable: No Interval Events: late note 12/14 Allergies: Coded Allergies: No Known Allergies (Unverified , 09/15/16) Objective Last 24 Hour Vital Signs Date Time Temp Pulse Resp B/P (MAP) Pulse Ox O2 Delivery O2 Flow Rate FiO2 12/15/17 09:44 93 135/70 12/15/17 09:44 135/70 12/15/17 09:43 135/70 12/15/17 08:53 93 18 Room Air 21 12/15/17 08:32 97.7 92 20 135/70 97 12/15/17 03:45 95.5 83 19 121/66 95 Room Air 12/14/17 23:49 96.8 85 20 141/71 100 Room Air 12/14/17 22:30 102 122/70 12/14/17 22:30 122/70 12/14/17 20:00 97.7 102 20 122/70 96 Room Air 12/14/17 19:42 88 18 Room Air 12/14/17 16:00 97.5 89 20 127/66 98 Room Air 12/14/17 12:00 97.7 81 20 103/57 96 Room Air 12/14/17 11:45 Room Air 12/14/17 10:18 136/76 Intake and Output 12/14/17 12/15/17 19:00 07:00 Intake Total 995.000 ml Output Total 1100 ml Balance -105.000 ml Intake Oral 720 ml IV Total 275.000 ml Output Hemodialysis UF 1100 ml # Voids 1 4 # Bowel Movements 1 2 General Appearance: WD/WN, no acute distress HEENT: normocephalic Respiratory/Chest: chest wall non-tender, lungs clear Cardiovascular: normal peripheral pulses, normal rate Abdomen: normal bowel sounds, no organomegaly Extremities: no cyanosis Skin: no rash Current Medications Medications (Trade) Dose Ordered Sig/Althea Route PRN Reason Start Time Stop Time Status Last Admin Dose Admin Acetaminophen (Tylenol) 650 mg Q4H PRN ORAL fever 12/14/17 22:00 01/09/18 21:59 Albuterol/ Ipratropium (Albuterol/ Ipratropium) 3 ml Q6HRT PRN HHN dyspnea 12/14/17 19:00 12/15/17 21:59 Apixaban (Eliquis) 2.5 mg BID ORAL 12/15/17 09:00 01/10/18 08:59 12/15/17 09:45 Aspirin (ASA) 325 mg DAILY ORAL 12/15/17 09:00 01/12/18 08:59 12/15/17 09:43 Atorvastatin Calcium (Lipitor) 10 mg BEDTIME ORAL 12/14/17 21:00 01/10/18 20:59 12/14/17 22:30 Clonidine HCl (Catapres Tab) 0.1 mg Q4H PRN ORAL For High Blood Pressure 12/14/17 22:00 01/09/18 21:59 Dextrose (Dextrose 50%) STAT PRN IV Hypoglycemia 12/14/17 22:00 01/09/18 21:59 Famotidine (Pepcid) 20 mg QHS ORAL 12/14/17 21:00 01/10/18 15:29 12/14/17 22:31 Insulin Aspart (NovoLOG) BEFORE MEALS AND HS SUBQ 12/14/17 21:00 01/10/18 06:29 12/15/17 06:42 Isosorbide Mononitrate (Imdur) 60 mg DAILY ORAL 12/15/17 09:00 01/14/18 08:59 12/15/17 09:44 Lisinopril (Zestril) 2.5 mg Q12HR ORAL 12/14/17 21:00 01/13/18 20:59 12/15/17 09:43 Metoprolol Tartrate (Lopressor) 25 mg Q12HR ORAL 12/14/17 21:00 01/12/18 08:59 12/15/17 09:44 Ondansetron HCl (Zofran) 4 mg Q6H PRN IVP Nausea & Vomiting 12/14/17 22:00 01/09/18 21:59 Pantoprazole (Protonix) 40 mg DAILY ORAL 12/15/17 09:00 01/11/18 10:59 12/15/17 09:43 Polyethylene Glycol (Miralax) 17 gm HSPRN PRN ORAL Constipation 12/14/17 22:00 01/09/18 21:59 Promethazine HCl/ Codeine (Phenergan with Codeine) 5 ml Q6H PRN ORAL For Cough 12/14/17 21:00 01/11/18 14:59 Quetiapine Fumarate (SEROquel) 12.5 mg BID ORAL 12/15/17 09:00 01/10/18 17:59 12/15/17 09:44 Vitamin A/Vitamin D (A & D Oint) 1 applic EVERY 12 HOURS TOPIC 12/14/17 21:00 01/11/18 20:59 12/15/17 09:51 Zolpidem Tartrate (Ambien) 5 mg HSPRN PRN ORAL Insomnia 12/14/17 22:00 12/17/17 21:59 IHSAN SILVA Dec 15, 2017 10:02
--- NOTE | 2017-12-15 10:03 | Pulmonology Progress Note ---
Assessment/Plan Problems: (1) Non-ST elevation (NSTEMI) myocardial infarction (2) ESRF (end stage renal failure) (3) Diabetes mellitus (4) S/P AKA (above knee amputation) unilateral Assessment/Plan troponin lower again f/u cardio recommendations check troponin check echo hd by nephrologis dc to long term if ok with rehabilitation inspector. Subjective ROS Limited/Unobtainable: No Interval Events: dc today after HD Allergies: Coded Allergies: No Known Allergies (Unverified , 09/15/16) Objective Last 24 Hour Vital Signs Date Time Temp Pulse Resp B/P (MAP) Pulse Ox O2 Delivery O2 Flow Rate FiO2 12/15/17 09:44 93 135/70 12/15/17 09:44 135/70 12/15/17 09:43 135/70 12/15/17 08:53 93 18 Room Air 21 12/15/17 08:32 97.7 92 20 135/70 97 12/15/17 03:45 95.5 83 19 121/66 95 Room Air 12/14/17 23:49 96.8 85 20 141/71 100 Room Air 12/14/17 22:30 102 122/70 12/14/17 22:30 122/70 12/14/17 20:00 97.7 102 20 122/70 96 Room Air 12/14/17 19:42 88 18 Room Air 12/14/17 16:00 97.5 89 20 127/66 98 Room Air 12/14/17 12:00 97.7 81 20 103/57 96 Room Air 12/14/17 11:45 Room Air 12/14/17 10:18 136/76 Intake and Output 12/14/17 12/15/17 19:00 07:00 Intake Total 995.000 ml Output Total 1100 ml Balance -105.000 ml Intake Oral 720 ml IV Total 275.000 ml Output Hemodialysis UF 1100 ml # Voids 1 4 # Bowel Movements 1 2 Objective General Appearance: WD/WN Lines, tubes and drains: peripheral HEENT: normocephalic, atraumatic Neck: non-tender, normal alignment Respiratory/Chest: chest wall non-tender, lungs clear Breasts: no masses Cardiovascular/Chest: normal peripheral pulses Abdomen: normal bowel sounds, non tender Genitourinary/Rectal: normal genital exam, normal rectal exam Extremities: normal range of motion, non-tender Skin Exam: normal pigmentation 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 II-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 grossly normal Current Medications Medications (Trade) Dose Ordered Sig/Althea Route PRN Reason Start Time Stop Time Status Last Admin Dose Admin Acetaminophen (Tylenol) 650 mg Q4H PRN ORAL fever 12/14/17 22:00 01/09/18 21:59 Albuterol/ Ipratropium (Albuterol/ Ipratropium) 3 ml Q6HRT PRN HHN dyspnea 12/14/17 19:00 12/15/17 21:59 Apixaban (Eliquis) 2.5 mg BID ORAL 12/15/17 09:00 01/10/18 08:59 12/15/17 09:45 Aspirin (ASA) 325 mg DAILY ORAL 12/15/17 09:00 01/12/18 08:59 12/15/17 09:43 Atorvastatin Calcium (Lipitor) 10 mg BEDTIME ORAL 12/14/17 21:00 01/10/18 20:59 12/14/17 22:30 Clonidine HCl (Catapres Tab) 0.1 mg Q4H PRN ORAL For High Blood Pressure 12/14/17 22:00 01/09/18 21:59 Dextrose (Dextrose 50%) STAT PRN IV Hypoglycemia 12/14/17 22:00 01/09/18 21:59 Famotidine (Pepcid) 20 mg QHS ORAL 12/14/17 21:00 01/10/18 15:29 12/14/17 22:31 Insulin Aspart (NovoLOG) BEFORE MEALS AND HS SUBQ 12/14/17 21:00 01/10/18 06:29 12/15/17 06:42 Isosorbide Mononitrate (Imdur) 60 mg DAILY ORAL 12/15/17 09:00 01/14/18 08:59 12/15/17 09:44 Lisinopril (Zestril) 2.5 mg Q12HR ORAL 12/14/17 21:00 01/13/18 20:59 12/15/17 09:43 Metoprolol Tartrate (Lopressor) 25 mg Q12HR ORAL 12/14/17 21:00 01/12/18 08:59 12/15/17 09:44 Ondansetron HCl (Zofran) 4 mg Q6H PRN IVP Nausea & Vomiting 12/14/17 22:00 01/09/18 21:59 Pantoprazole (Protonix) 40 mg DAILY ORAL 12/15/17 09:00 01/11/18 10:59 12/15/17 09:43 Polyethylene Glycol (Miralax) 17 gm HSPRN PRN ORAL Constipation 12/14/17 22:00 01/09/18 21:59 Promethazine HCl/ Codeine (Phenergan with Codeine) 5 ml Q6H PRN ORAL For Cough 12/14/17 21:00 01/11/18 14:59 Quetiapine Fumarate (SEROquel) 12.5 mg BID ORAL 12/15/17 09:00 01/10/18 17:59 12/15/17 09:44 Vitamin A/Vitamin D (A & D Oint) 1 applic EVERY 12 HOURS TOPIC 12/14/17 21:00 01/11/18 20:59 12/15/17 09:51 Zolpidem Tartrate (Ambien) 5 mg HSPRN PRN ORAL Insomnia 12/14/17 22:00 12/17/17 21:59 IHSAN SILVA Dec 15, 2017 10:02
[2017-12-15 11:22] VITALS: BP 137/68
--- NOTE | 2017-12-15 11:36 | Nephrology Progress Note ---
Assessment/Plan Problem List: (1) ESRF (end stage renal failure) (2) NSTEMI (non-ST elevated myocardial infarction) Assessment NSTEMI troponin higher End-stage renal disease, on hemodialysis every Sunday, Sunday, and Sunday. Last dialysis was on Sunday12/10/17 Low K being corrected Other: 1. Type 2 diabetes. 2. Hypertension. 3. Anemia of chronic renal disease. & Vaginal bleed 4. Hypercholesterolemia. 5. Peripheral vascular disease. 6. Alzheimer's dementia. 7. ?? LUNG MASS PAST SURGICAL HISTORY: Significant for: 1. Right emgyu-ukv-[id number] amputation. 2. Open reduction internal fixation of the left femoral neck on 07/20/2016. Plan Plan: Monitor troponin ASA beta myrtle , Statins, Nitro K Supplement as needed HD 12/15 gastric support per ID Dialysis shortly and DC after HD Subjective ROS Limited/Unobtainable: No Objective Objective Last 24 Hour Vital Signs Date Time Temp Pulse Resp B/P (MAP) Pulse Ox O2 Delivery O2 Flow Rate FiO2 12/15/17 09:44 93 135/70 12/15/17 09:44 135/70 12/15/17 09:43 135/70 12/15/17 09:39 Room Air 21 12/15/17 08:53 93 18 Room Air 21 12/15/17 08:32 97.7 92 20 135/70 97 12/15/17 03:45 95.5 83 19 121/66 95 Room Air 12/14/17 23:49 96.8 85 20 141/71 100 Room Air 12/14/17 22:30 102 122/70 12/14/17 22:30 122/70 12/14/17 20:00 97.7 102 20 122/70 96 Room Air 12/14/17 19:42 88 18 Room Air 12/14/17 16:00 97.5 89 20 127/66 98 Room Air 12/14/17 12:00 97.7 81 20 103/57 96 Room Air 12/14/17 11:45 Room Air Intake and Output 12/14/17 12/15/17 19:00 07:00 Intake Total 995.000 ml Output Total 1100 ml Balance -105.000 ml Intake Oral 720 ml IV Total 275.000 ml Output Hemodialysis UF 1100 ml # Voids 1 4 # Bowel Movements 1 2 Height (Feet): 5 Height (Inches): 2.00 Weight (Pounds): 130 General Appearance: no apparent distress Cardiovascular: normal rate Respiratory/Chest: lungs clear Abdomen: soft Objective no change TAQUERIA JACOBSON Dec 15, 2017 11:36
--- NOTE | 2017-12-15 12:00 | Infectious Diseases Prog Note ---
Assessment/Plan Assessment/Plan ASSESSMENT: Hypotension , SP SP chills. PUBLIC HEALTH AIDE no evid of bacteremia UCX not sent 12/13 Cxray : [facility]D no evid of Sacral Wnd infection WndCx : Colonizer History of C. diff. History of urinary tract infection. History of left heel decubitus (grossly infected). History of methicillin-resistant Staphylococcus aureus colonization EF : 60 %. History of GI bleed. History of vaginal bleed. History of thickened endometrium and left adnexal mass. End-stage renal disease, on hemodialysis. Status post AV graft of left upper extremity. History of dementia. History of bilateral lower extremity DVT. Diabetes. Peripheral vascular disease. Right AKA, bytnm-[id number]-cpen amputation. PLAN: monitor pt off of Ab Rx 12/14 SP vancomycin and Rocephin d# 4 Monitor CBC. Monitor BMP. Monitor cultures (blood ) Subjective Allergies: Coded Allergies: No Known Allergies (Unverified , 09/15/16) Subjective DC today to SNF Objective Vital Signs Last 24 Hour Vital Signs Date Time Temp Pulse Resp B/P (MAP) Pulse Ox O2 Delivery O2 Flow Rate FiO2 12/15/17 11:22 98.0 89 20 137/68 97 12/15/17 09:44 93 135/70 12/15/17 09:44 135/70 12/15/17 09:43 135/70 12/15/17 09:39 Room Air 21 12/15/17 08:53 93 18 Room Air 21 12/15/17 08:32 97.7 92 20 135/70 97 12/15/17 03:45 95.5 83 19 121/66 95 Room Air 12/14/17 23:49 96.8 85 20 141/71 100 Room Air 12/14/17 22:30 102 122/70 12/14/17 22:30 122/70 12/14/17 20:00 97.7 102 20 122/70 96 Room Air 12/14/17 19:42 88 18 Room Air 12/14/17 16:00 97.5 89 20 127/66 98 Room Air 12/14/17 12:00 97.7 81 20 103/57 96 Room Air Height (Feet): 5 Height (Inches): 2.00 Weight (Pounds): 130 HEENT: mucous membranes moist Respiratory/Chest: no respiratory distress Cardiovascular: regular rhythm Abdomen: non distended Current Medications Medications (Trade) Dose Ordered Sig/Althea Route PRN Reason Start Time Stop Time Status Last Admin Dose Admin Acetaminophen (Tylenol) 650 mg Q4H PRN ORAL fever 12/14/17 22:00 01/09/18 21:59 Albuterol/ Ipratropium (Albuterol/ Ipratropium) 3 ml Q6HRT PRN HHN dyspnea 12/14/17 19:00 12/15/17 21:59 Apixaban (Eliquis) 2.5 mg BID ORAL 12/15/17 09:00 01/10/18 08:59 12/15/17 09:45 Aspirin (ASA) 325 mg DAILY ORAL 12/15/17 09:00 01/12/18 08:59 12/15/17 09:43 Atorvastatin Calcium (Lipitor) 10 mg BEDTIME ORAL 12/14/17 21:00 01/10/18 20:59 12/14/17 22:30 Clonidine HCl (Catapres Tab) 0.1 mg Q4H PRN ORAL For High Blood Pressure 12/14/17 22:00 01/09/18 21:59 Dextrose (Dextrose 50%) STAT PRN IV Hypoglycemia 12/14/17 22:00 01/09/18 21:59 Famotidine (Pepcid) 20 mg QHS ORAL 12/14/17 21:00 01/10/18 15:29 12/14/17 22:31 Insulin Aspart (NovoLOG) BEFORE MEALS AND HS SUBQ 12/14/17 21:00 01/10/18 06:29 12/15/17 06:42 Isosorbide Mononitrate (Imdur) 60 mg DAILY ORAL 12/15/17 09:00 01/14/18 08:59 12/15/17 09:44 Lisinopril (Zestril) 2.5 mg Q12HR ORAL 12/14/17 21:00 01/13/18 20:59 12/15/17 09:43 Metoprolol Tartrate (Lopressor) 25 mg Q12HR ORAL 12/14/17 21:00 01/12/18 08:59 12/15/17 09:44 Ondansetron HCl (Zofran) 4 mg Q6H PRN IVP Nausea & Vomiting 12/14/17 22:00 01/09/18 21:59 Pantoprazole (Protonix) 40 mg DAILY ORAL 12/15/17 09:00 01/11/18 10:59 12/15/17 09:43 Polyethylene Glycol (Miralax) 17 gm HSPRN PRN ORAL Constipation 12/14/17 22:00 01/09/18 21:59 Promethazine HCl/ Codeine (Phenergan with Codeine) 5 ml Q6H PRN ORAL For Cough 12/14/17 21:00 01/11/18 14:59 Quetiapine Fumarate (SEROquel) 12.5 mg BID ORAL 12/15/17 09:00 01/10/18 17:59 12/15/17 09:44 Vitamin A/Vitamin D (A & D Oint) 1 applic EVERY 12 HOURS TOPIC 12/14/17 21:00 01/11/18 20:59 12/15/17 09:51 Zolpidem Tartrate (Ambien) 5 mg HSPRN PRN ORAL Insomnia 12/14/17 22:00 12/17/17 21:59 NANCY QUICK M.D. Dec 15, 2017 12:00
[2017-12-15] MEDS ORDERED: NS 500ML ONE (13:45)
[2017-12-15 15:55] VITALS: BP 122/70
--- NOTE | 2017-12-17 14:59 | Discharge Summary ---
Discharge Summary Hospital Course Date of Admission Dec 10, 2017 at 20:17 Date of Discharge Dec 15, 2017 at 16:20 Admitting Diagnosis renal failure, hypotensive HPI Kiki Smith is a 67 year old female who was admitted on Dec 10, 2017 at 20:17 for Renal Failure, Hypotensive Hospital Course dc summary #[id number] Discharge Medications Continued Medications: Apixaban (Eliquis) 2.5 Mg Tablet 10 MG PO BID for 90 Days, TAB 10 mg po bid x 7 days, then 5 mg po bid Atorvastatin Calcium* (Atorvastatin Calcium*) 20 Mg Tablet 10 MG ORAL BEDTIME, TAB Insuln Asp Prt/Insulin Aspart (Novolog Mix 70-30 Flexpen Syrn) 100 Unit/1 Ml Insuln.pen 100 UNIT SQ Inject per sliding scale 4 times a day. Metoprolol Tartrate* (Metoprolol Tartrate*) 50 Mg Tablet 50 MG ORAL DAILY Nitroglycerin (Nitroglycerin) 0.4 Mg Tab.subl 0.4 MG SL PRN for Prn Chest Pain, TAB Ondansetron* (Zofran*) 4 Mg/2 Ml Vial 4 MG IVP Q6H PRN for Nausea & Vomiting, VIAL Ondansetron* (Zofran*) 4 Mg Tablet 4 MG ORAL Q6H PRN for Nausea & Vomiting, TAB Pantoprazole* (Protonix*) 40 Mg Tablet.dr 40 MG ORAL DAILY, TAB Quetiapine Fumarate* (Seroquel*) 25 Mg Tablet 12.5 MG ORAL BID, TAB Sucralfate* (Carafate*) 1 Gm Tablet 1 GM ORAL BEDTIME, TAB Discharge Condition Upon Discharge: stable Discharge Disposition Patient was discharged to SNF/Subacute Facility(03) Discharge Diagnoses: Discharge Instructions Discharge Instructions Special Instructions I have been assigned to complete a D/C Summary on this account. I was not involved in the patient management Kaia Gonzalez NP (Vanchtein) Dec 17, 2017 14:59
--- NOTE | 2017-12-17 22:41 | General Progress Note ---
Assessment/Plan Assessment/Plan encephalopathy due to GMC -cont seroquel Subjective Date patient seen: Dec 17, 2017 Neurologic/Psychiatric: Reports: anxiety, depressed, emotional problems Allergies: Coded Allergies: No Known Allergies (Unverified , 09/15/16) Objective Height (Feet): 5 Height (Inches): 2.00 Weight (Pounds): 130 General Appearance: no apparent distress, alert Belia Grant M.D. Dec 17, 2017 22:41
--- NOTE | 2017-12-18 03:15 | Discharge Summary 2 SIG ---
DATE OF ADMISSION: 12/10/2017 DATE OF DISCHARGE: 12/15/2017 REASON FOR ADMISSION: 67-year-old female with history of end-stage renal disease, on hemodialysis, peripheral vascular disease, status post right above-knee amputation, diabetes mellitus type 2, and advanced dementia, presented for evaluation due to the generalized weakness. The patient appeared to have mild confusion . No episodes of vomiting or diarrhea in the emergency department. No headache. No chest pain. No shortness of breath. Workup in the emergency department revealed stable vital signs. Pulse oximetry was stable on room air. Potassium - 2.5, BUN- 25, and creatinine -2.6, consistent with a known history of end-stage renal disease. Stable LFT. Elevated troponin- 0.102. CK within normal limits. Albumin- 2.8. EKG revealed normal sinus rhythm. No acute ischemic changes. The patient was admitted for evaluation of elevated troponin, end-stage renal disease, hypokalemia, and generalized weakness. HOSPITAL COURSE: The patient was admitted. Nephrology, Cardiology, and Psychiatric consults were requested. The patient was admitted to telemetry. Serial troponin, echocardiogram, and EKG were ordered. Troponin initially was raising up to 0.179 and they started to trend down. According to adjunct spanish instructor, possibly troponin leak related to renal insufficiency versus non-STEMI. The patient was placed on aspirin, beta-myrtle, statin, and nitroglycerin as needed. Lipid panel within normal limits. Per adjunct spanish instructor , who cleared the patient for discharge, the patient bed ridden, monitor clinically and continue with medical management . Blood sugar was managed with sliding scale of insulin and remained stable. Computer Systems Technology Instructor closely followed. Hemodialysis was done as per corrections identification technician. Renal parameters and electrolytes were closely monitored and electrolytes were corrected as needed. Gastric support provided. Psychiatrist seen and evaluated the patient and diagnosed the patient with encephalopathy due to general medical condition. Psychiatric medication regimen was optimized. Wound care nurse followed up the patient for present on admission decubitus ulcer on left sacral and mid sacral coccyx. Wound care provided as per wound care nurse recommendation. The patient clinically improved and was cleared by adjunct spanish instructor and other consultants for discharge to fdc facility. FINAL DIAGNOSES: 1. Elevated troponin. 2. Possible non- ST-elevation myocardial infarction. 3. End-stage renal disease, on hemodialysis. 4. Diabetes mellitus type 2. 5. Hypertension. 6. Hypercholesterolemia. 7. Peripheral vascular disease with right above-knee amputation. 8. Encephalopathy, secondary to general medical condition. 9. Alzheimer dementia. 10. Left sacral decubitus ulcer stage III, present on admission. 11. Mid sacral coccyx decubitus ulcer stage III, present on admission. DISCHARGE MEDICATIONS: See medication reconciliation list. DISCHARGE INSTRUCTIONS: The patient was discharged to fdc facility. Follow up with medical doctor at the facility. Lit Cerna M.D. I have been assigned to dictate discharge summary on this account and I was not involved in the patient's management. Kaia SalinasCapital District Psychiatric CenterEmi N.PAlejandro DR: ROSS JOB#: [id number] CC: OMA
--- NOTE | 2017-12-19 18:26 | Cardiology Report ---
APPROVED REPORT EKG Measurement Heart [id number] Normal sinus rhythm Possible Left atrial enlargement Incomplete left bundle branch block Nonspecific ST abnormality Abnormal ECG
--- NOTE | 2017-12-19 18:47 | Cardiology Report ---
APPROVED REPORT EKG Measurement Heart [id number] [id number] Sinus tachycardia Possible Left atrial enlargement Nonspecific intraventricular conduction delay T wave abnormality, consider inferior ischemia Abnormal ECG
== END 2017-12-15 16:20 | DRG 280 ==
LOC: EDBD 18:21 → EMR 20:16 → 2E 20:17 → EDBEDREQ 20:56 → 2E 21:45 → 4W 12-14 18:00
PROC: 5A1D70Z Performance of Urinary Filtration, Intermittent, Less than 6 Hours Per Day (ICD-10-PCS; principal; 2017-12-13)
PROC: 5A1D70Z Performance of Urinary Filtration, Intermittent, Less than 6 Hours Per Day (ICD-10-PCS; 2017-12-15)
DX: I21.4 Non-ST elevation (NSTEMI) myocardial infarction (principal); N18.6 End stage renal disease; G93.40 Encephalopathy, unspecified; L89.153 Pressure ulcer of sacral region, stage 3; E11.22 Type 2 diabetes mellitus with diabetic chronic kidney disease; E11.9 Type 2 diabetes mellitus without complications; I12.9 Hypertensive chronic kidney disease with stage 1 through stage 4 chronic kidney disease, or unspecified chronic kidney disease; D63.1 Anemia in chronic kidney disease; G30.9 Alzheimer's disease, unspecified; F02.80 Dementia in other diseases classified elsewhere, unspecified severity, without behavioral disturbance, psychotic disturbance, mood disturbance, and anxiety; Z89.619 Acquired absence of unspecified leg above knee; Z99.2 Dependence on renal dialysis; N18.9 Chronic kidney disease, unspecified; E78.00 Pure hypercholesterolemia, unspecified; I73.9 Peripheral vascular disease, unspecified; N93.9 Abnormal uterine and vaginal bleeding, unspecified; E87.6 Hypokalemia
CPT/HCPCS: 36415; 71045; 80053; 80061; 80202; 82550; 82553; 82962; 83036; 83735; 83880; 84100; 84443; 84484; 85007; 85025; 86140; 87040; 87070; 87181; 87205; 93005; 93306; 94664; 99285; J1815; J8499

== ENCOUNTER 2018-03-08 08:23 | Inpatient (IN) | payer MEDICARE, MEDICAID ==
[~2018-03-08] VITALS: Ht 165.1 cm; Wt 65.8 kg
[~2018-03-08 08:23] MED LIST changes: +CARAFATE1 G1 ORAL; +DOCUSATE SODIU100 MG ORAL; +METOCLOPRAMIDE H5 M1 ORAL; +MIRALAX17 G2 ORAL; +NEXIUM40 MG ORAL; +NOVOLOG100 UNIT/4 SQ; +ZOFRAN4 M3 ORAL
[2018-03-08] MEDS ORDERED: ELIQUIS5 MG PO (08:34)
[2018-03-08] MEDS ORDERED: LANTUS SOL100 UNIT/1 SUBQ (08:34)
[2018-03-08 09:00] LABS: BASOPHILS % (AUTO) 1.5 % (0.0-2.0); EOSINOPHILS % (AUTO) 5.6 % (0.0-3.0); HEMATOCRIT 38.9 % (37.0-47.0); HEMOGLOBIN 12.7 G/DL (12.0-16.0); LYMPHOCYTES % (AUTO) 26.2 % (20.0-45.0); MEAN CORPUSCULAR VOLUME 92 FL (80-99); MONOCYTES % (AUTO) 9.8 % (1.0-10.0); PLATELET COUNT 341 K/UL (150-450); RED BLOOD COUNT 4.24 M/UL (4.20-5.40); RED CELL DISTRIBUTION WIDTH 13.5 % (11.6-14.8); WHITE BLOOD COUNT 8.6 K/UL (4.8-10.8)
[2018-03-08 09:13] LABS: ANION GAP 10 mmol/L (5-15); BLOOD UREA NITROGEN 86 mg/dL (7-18); CARBON DIOXIDE 29 MMOL/L (21-32); CHLORIDE 100 MMOL/L (98-107); POTASSIUM 3.7 MMOL/L (3.5-5.1); SODIUM 139 MMOL/L (136-145)
[2018-03-08 09:26] LABS: ALANINE AMINOTRANSFERASE 20 U/L (12-78); ALBUMIN 3.3 G/DL (3.4-5.0); ALBUMIN/GLOBULIN RATIO 0.8 (1.0-2.7); ALKALINE PHOSPHATASE 123 U/L (46-116); ASPARTATE AMINO TRANSFERASE 14 U/L (15-37); BILIRUBIN,TOTAL 0.2 MG/DL (0.2-1.0); CREATINE KINASE 35 U/L (26-308)
--- NOTE | 2018-03-08 09:28 | Emergency Room Report ---
History of Present Illness General Chief Complaint: Skin Rash/Abscess Source: Medical Record Present Illness HPI Patient placed by paramedics for worsening decubitus ulcer Patient herself is nonverbal cannot communicate appropriately Patient has had fairly significant past medical history including previous CVA Specifics of the history of present illness are limited this does limit the history of present illness There was no reports of vomiting or diarrhea Unknown regarding recent antibiotic intake Attempting to review medical records there are limited medical records available at this time Allergies: Coded Allergies: No Known Allergies (Unverified , 09/15/16) Patient History Limited by: medical condition Past Medical History: see triage record Pertinent Family History: unable to obtain Reviewed Nursing Documentation: PMH: Agreed; PSxH: Agreed Nursing Documentation-PMH Hx Cardiac Problems: Yes - 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 Hx Hypertension: Yes Hx Diabetes: Yes - Type II Hx Cancer: No Hx Gastrointestinal Problems: Yes - hyperlipidemia Hx Dialysis: Yes - ESRD, right BKA Hx Neurological Problems: Yes Hx Cerebrovascular Accident: Yes Hx Dementia: Yes Hx Alzheimer's Disease: Yes Hx Paralysis: Yes Hx Dysphasia: Yes Hx Weakness: Yes Review of Systems All Other Systems: limited - Other than the ones mentioned in the history of present illness all others are reviewed however they do stay limited due to the patient's mental status Physical Exam Vital Signs Date Time Temp Pulse Resp B/P (MAP) Pulse Ox O2 Delivery O2 Flow Rate FiO2 03/08/18 08:21 96.4 70 20 110/60 98 Room Air 96.4 Sp02 EP Interpretation: reviewed, normal General Appearance: no apparent distress Head: normocephalic, atraumatic Eyes: bilateral eye PERRL ENT: normal pharynx, no angioedema Neck: supple, thyroid normal Respiratory: chest non-tender, lungs clear Cardiovascular #1: regular rate, rhythm, no edema Gastrointestinal: non tender, soft Musculoskeletal: other - Patient does not follow commands, however moves both upper extremities without focal deficit Neurologic: responsive - To physical stimuli Skin: other - There is a palpable fluctuance in the sacral area lower back, is also associated first-degree ulceration to the left aspect of the sacral region with mild discharge Lymphatic: no adenopathy Medical Decision Making Diagnostic Impression: Primary Impression: Abscess Additional Impressions: Rash and other nonspecific skin eruption Decubital ulcer ER Course Patient is complex with multiple differentials considered Given the patient's presentation and history There is evidence of what appears to be early signs of decubitus ulcer However concern for also deep or underlying abscess is made Patient had broad-spectrum antibiotics provided Requires further inpatient care for continued specialty referral Labs Test 03/08/18 08:30 03/09/18 06:50 03/10/18 06:00 White Blood Count 8.6 K/UL (4.8-10.8) 5.7 K/UL (4.8-10.8) 5.8 K/UL (4.8-10.8) Red Blood Count 4.24 M/UL (4.20-5.40) 3.69 M/UL (4.20-5.40) 3.54 M/UL (4.20-5.40) Hemoglobin 12.7 G/DL (12.0-16.0) 11.8 G/DL (12.0-16.0) 11.1 G/DL (12.0-16.0) Hematocrit 38.9 % (37.0-47.0) 33.7 % (37.0-47.0) 32.2 % (37.0-47.0) Mean Corpuscular Volume 92 FL (80-99) 91 FL (80-99) 91 FL (80-99) Mean Corpuscular Hemoglobin 29.9 PG (27.0-31.0) 31.9 PG (27.0-31.0) 31.4 PG (27.0-31.0) Mean Corpuscular Hemoglobin Concent 32.6 G/DL (32.0-36.0) 34.9 G/DL (32.0-36.0) 34.5 G/DL (32.0-36.0) Red Cell Distribution Width 13.5 % (11.6-14.8) 13.5 % (11.6-14.8) 13.5 % (11.6-14.8) Platelet Count 341 K/UL (150-450) 283 K/UL (150-450) 310 K/UL (150-450) Mean Platelet Volume 13.6 FL (6.5-10.1) 8.8 FL (6.5-10.1) 9.4 FL (6.5-10.1) Neutrophils (%) (Auto) 57.0 % (45.0-75.0) 52.3 % (45.0-75.0) 60.2 % (45.0-75.0) Lymphocytes (%) (Auto) 26.2 % (20.0-45.0) 29.1 % (20.0-45.0) 24.6 % (20.0-45.0) Monocytes (%) (Auto) 9.8 % (1.0-10.0) 10.5 % (1.0-10.0) 9.7 % (1.0-10.0) Eosinophils (%) (Auto) 5.6 % (0.0-3.0) 6.7 % (0.0-3.0) 4.6 % (0.0-3.0) Basophils (%) (Auto) 1.5 % (0.0-2.0) 1.3 % (0.0-2.0) 0.9 % (0.0-2.0) Sodium Level 139 MMOL/L (136-145) 142 MMOL/L (136-145) 141 MMOL/L (136-145) Potassium Level 3.7 MMOL/L (3.5-5.1) 4.1 MMOL/L (3.5-5.1) 3.3 MMOL/L (3.5-5.1) Chloride Level 100 MMOL/L (98-107) 101 MMOL/L (98-107) 99 MMOL/L (98-107) Carbon Dioxide Level 29 MMOL/L (21-32) 24 MMOL/L (21-32) 34 MMOL/L (21-32) Anion Gap 10 mmol/L (5-15) 17 mmol/L (5-15) 8 mmol/L (5-15) Blood Urea Nitrogen 86 mg/dL (7-18) 103 mg/dL (7-18) 51 mg/dL (7-18) Creatinine 7.0 MG/DL (0.55-1.30) 7.9 MG/DL (0.55-1.30) 4.3 MG/DL (0.55-1.30) Estimat Glomerular Filtration Rate 7.2 mL/min (>60) 6.2 mL/min (>60) 12.5 mL/min (>60) Glucose Level 99 MG/DL (74-106) 89 MG/DL (74-106) 105 MG/DL (74-106) Lactic Acid Level 1.10 mmol/L (0.66-2.22) Calcium Level 10.0 MG/DL (8.5-10.1) 9.6 MG/DL (8.5-10.1) 9.1 MG/DL (8.5-10.1) Total Bilirubin 0.2 MG/DL (0.2-1.0) 0.3 MG/DL (0.2-1.0) 0.5 MG/DL (0.2-1.0) Aspartate Amino Transf (AST/SGOT) 14 U/L (15-37) 11 U/L (15-37) 14 U/L (15-37) Alanine Aminotransferase (ALT/SGPT) 20 U/L (12-78) 19 U/L (12-78) 22 U/L (12-78) Alkaline Phosphatase 123 U/L (46-116) 112 U/L (46-116) 105 U/L (46-116) Total Creatine Kinase 35 U/L (26-308) Creatine Kinase MB 1.0 NG/ML (0.0-3.6) Creatine Kinase MB Relative Index 2.8 Troponin I 0.018 ng/mL (0.000-0.056) 0.054 ng/mL (0.000-0.056) Total Protein 7.4 G/DL (6.4-8.2) 6.8 G/DL (6.4-8.2) 6.2 G/DL (6.4-8.2) Albumin 3.3 G/DL (3.4-5.0) 3.0 G/DL (3.4-5.0) 2.8 G/DL (3.4-5.0) Globulin 4.1 g/dL 3.8 g/dL 3.4 g/dL Albumin/Globulin Ratio 0.8 (1.0-2.7) 0.8 (1.0-2.7) 0.8 (1.0-2.7) C-Reactive Protein, Quantitative < 0.4 mg/dL (0.00-0.90) Hemoglobin A1c 7.1 % (4.3-6.0) Uric Acid 3.9 MG/DL (2.6-7.2) Phosphorus Level 4.0 MG/DL (2.5-4.9) Magnesium Level 2.1 MG/DL (1.8-2.4) Ferritin 379 NG/ML (8-388) Gamma Glutamyl Transpeptidase 28 U/L (5-85) Pro-B-Type Natriuretic Peptide 2116 pg/mL (0-125) Triglycerides Level 69 MG/DL (30-150) Cholesterol Level 203 MG/DL (< 200) LDL Cholesterol 119 mg/dL (<100) HDL Cholesterol 50 MG/DL (40-60) Cholesterol/HDL Ratio 4.1 (3.3-4.4) Vitamin B12 Level 632 PG/ML (193-986) Folate 19.8 NG/ML (8.6-58.9) Thyroid Stimulating Hormone (TSH) 0.276 uiU/mL (0.358-3.740) Random Vancomycin Level 11.6 ug/mL Rhythm Strip Diag. Results EP Interpretation: yes Rate: 77 Rhythm: NSR, no PVC's, no ectopy Last Vital Signs Date Time Temp Pulse Resp B/P (MAP) Pulse Ox O2 Delivery O2 Flow Rate FiO2 03/08/18 08:21 96.4 70 20 110/60 98 Room Air 96.4 Status: improved Disposition: ADMITTED INPATIENT Condition: Serious Referrals: Lit Cerna MD (PCP) King Blanc DO Mar 08, 2018 09:28
[2018-03-08] MEDS ORDERED: cefTRIAXone 1 GM in NS 55 ML IVPB ONE (09:30)
[2018-03-08] MEDS ORDERED: Vancomycin 1 GM in NS 275 ML IVPB ONE (09:30)
[2018-03-08 09:45] VITALS: BP 110/60
[2018-03-08 11:00] VITALS: BP 104/56
[2018-03-08] MEDS ORDERED: Morphine Sulfate 2mg/ml Inj IVP PRN (11:45)
[2018-03-08] MEDS ORDERED: Albuterol/Ipratropium 3ml neb HHN PRN (11:45)
[2018-03-08] MEDS ORDERED: Miralax 17gm pkt ORAL PRN (11:45)
[2018-03-08 12:00] VITALS: BP 118/68
[2018-03-08] MEDS ORDERED: Nitroglycerin Subl 0.4mg tab SL PRN (12:00)
--- NOTE | 2018-03-08 12:55 | Operative Note - PDOC ---
Operative Note Operative Note Date of Operation/Procedure: Mar 08, 2018 Pre-op Diagnosis: left buttock/sacral stage 3 decubitus ulcer 4cm x 5cm Procedure: debridement of decubitus ulcer Post-op Diagnosis: same as pre-op Surgeon: nnamdi Specimen: none Complications: none Condition: stable Estimated Blood Loss: minimal Drains: none Implant(s) used?: No Indications for Procedure 67F noted to have stage 3 small/moderate sized left buttock/sacral decubitus ulcer that required cleaning and debridement to help with healing and care. debridement indicated and recommended. patient given full information an informed consent obtained for procedure to be done at bedside. Description of Procedure patient made comfortable at bedside. with assistance of nurse, patient was placed in right lateral decubitus position. wound was noted and measured 4cm x 5cm stage 3 decubitus with fibrinous necrotic superficial debris. using blunt dissection the necrotic fibrinous debris was excised down to healthy bleeding tissue. patient tolerated well. wound care dressings applied. Rob Dugan Mar 08, 2018 12:55
[2018-03-08] MEDS ORDERED: Cefepime 1gm/D5W 55ml IVPB ONE ×2 (13:00)
--- NOTE | 2018-03-08 13:55 | Consultation ---
Consult Note Assessment/Plan ID DIC # [id number] ASSESSMENT: left buttock/sacral stage 3 decubitus ulcer 4cm x 5cm , sp Debridement 03/08 no evid of Sacral Wnd infection WndCx : Colonizer History of C. diff. History of urinary tract infection. History of left heel decubitus (grossly infected). History of methicillin-resistant Staphylococcus aureus colonization EF : 60 %. History of GI bleed. History of vaginal bleed. History of thickened endometrium and left adnexal mass. End-stage renal disease, on hemodialysis. Status post AV graft of left upper extremity. History of dementia. History of bilateral lower extremity DVT. Diabetes. Peripheral vascular disease. Right AKA, [id number] amputation. PLAN: DC vancomycin and Cefepime and monitor pt off of Ab Rx Monitor CBC. Monitor BMP. Monitor cultures ( ángel, Wnd ) thank you Tank Cook MD Mar 08, 2018 13:55
[2018-03-08] MEDS ORDERED: Vancomycin 500mg/D5W 110ml IVPB ONE ×4 (14:00→16:00)
--- NOTE | 2018-03-08 14:09 | History and Physical ---
History of Present Illness General Reason for Hospitalization: Skin Rash/Abscess Present Illness Allergies: Coded Allergies: No Known Allergies (Unverified , 09/15/16) Medication History Scheduled Amino Acids/Protein Hydrolys (Pro-Stat Liquid), 45 ML ORAL TWICE A DAY, ( Reported) Apixaban (Eliquis), 10 MG PO BID Apixaban (Eliquis), 5 MG PO BID, (Reported) Aspirin* (Aspirin*), 81 MG ORAL DAILY, (Reported) Atorvastatin Calcium* (Atorvastatin Calcium*), 20 MG ORAL BEDTIME, (Reported) Collagenase Clostridium Hist. (Santyl), 1 APPLIC TP DAILY, (Reported) Docusate Sodium* (Docusate Sodium*), 100 MG ORAL THREE TIMES A DAY, (Reported) Esomeprazole Magnesium (Nexium), 40 MG ORAL DAILY, (Reported) Ferrous Sulfate* (Ferrous Sulfate*), 325 MG ORAL DAILY, (Reported) Hydralazine Hcl* (Hydralazine Hcl*), 25 MG ORAL EVERY 8 HOURS, (Reported) Ibuprofen* (Motrin*), 400 MG ORAL Q6H, (Reported) Insulin Glargine (Lantus), 20 SUBQ BEDTIME, (Reported) Lorazepam* (Lorazepam*), 2 MG ORAL DAILY, (Reported) Metoclopramide Hcl* (Metoclopramide Hcl*), 5 MG ORAL EVERY 6 HOURS, (Reported) Metoprolol Tartrate* (Metoprolol Tartrate*), 50 MG ORAL DAILY, (Reported) Pantoprazole* (Protonix*), 40 MG ORAL DAILY, (Reported) Polyethylene Glycol 3350* (Miralax*), 17 GM ORAL BEDTIME, (Reported) Quetiapine Fumarate* (Seroquel*), 12.5 MG ORAL BID, (Reported) Sucralfate* (Carafate*), 1 GM ORAL BEDTIME, (Reported) [Nephro Aid], 1 TAB PO DAILY, (Reported) Scheduled PRN Acetaminophen* (Acetaminophen 325MG Tablet*), 650 MG ORAL Q4HR PRN for Mild Pain (Pain Scale 1-3), (Reported) Morphine Sulfate* (Morphine Sulfate*), 2 MG IVP Q4HR PRN for For Pain, (Reported ) Nitroglycerin (Nitroglycerin), 0.4 MG SL for Prn Chest Pain, (Reported) Ondansetron* (Zofran*), 4 MG IVP Q6H PRN for Nausea & Vomiting, (Reported) Ondansetron* (Zofran*), 4 MG ORAL Q6H PRN for Nausea & Vomiting, (Reported) Temazepam (Temazepam*), 15 MG ORAL HS PRN for Insomnia, (Reported) Miscellaneous Medications Insulin Aspart (Novolog), 100 UNIT SQ, (Reported) Insuln Asp Prt/Insulin Aspart (Novolog Mix 70-30 Flexpen Syrn), 100 UNIT SQ, ( Reported) Patient History Healthcare decision maker Verenice Del Toro Resuscitation status Advanced Directive on File No Physical Exam Last 24 Hour Vital Signs Date Time Temp Pulse Resp B/P (MAP) Pulse Ox O2 Delivery O2 Flow Rate FiO2 03/08/18 12:00 97.4 107 20 118/68 100 97.4 03/08/18 11:50 96.4 75 12 104/56 99 Room Air 96.4 03/08/18 11:00 96.4 75 12 104/56 99 Room Air 96.4 03/08/18 09:45 96.4 20 110/60 98 Room Air 96.4 03/08/18 08:21 96.4 70 20 110/60 98 Room Air 96.4 Laboratory Tests Test 03/08/18 08:30 White Blood Count 8.6 K/UL (4.8-10.8) Red Blood Count 4.24 M/UL (4.20-5.40) Hemoglobin 12.7 G/DL (12.0-16.0) Hematocrit 38.9 % (37.0-47.0) Mean Corpuscular Volume 92 FL (80-99) Mean Corpuscular Hemoglobin 29.9 PG (27.0-31.0) Mean Corpuscular Hemoglobin Concent 32.6 G/DL (32.0-36.0) Red Cell Distribution Width 13.5 % (11.6-14.8) Platelet Count 341 K/UL (150-450) Mean Platelet Volume 13.6 FL (6.5-10.1) H Neutrophils (%) (Auto) 57.0 % (45.0-75.0) Lymphocytes (%) (Auto) 26.2 % (20.0-45.0) Monocytes (%) (Auto) 9.8 % (1.0-10.0) Eosinophils (%) (Auto) 5.6 % (0.0-3.0) H Basophils (%) (Auto) 1.5 % (0.0-2.0) Sodium Level 139 MMOL/L (136-145) Potassium Level 3.7 MMOL/L (3.5-5.1) Chloride Level 100 MMOL/L (98-107) Carbon Dioxide Level 29 MMOL/L (21-32) Anion Gap 10 mmol/L (5-15) Blood Urea Nitrogen 86 mg/dL (7-18) H Creatinine 7.0 MG/DL (0.55-1.30) H Estimat Glomerular Filtration Rate 7.2 mL/min (>60) Glucose Level 99 MG/DL (74-106) Lactic Acid Level 1.10 mmol/L (0.66-2.22) Calcium Level 10.0 MG/DL (8.5-10.1) Total Bilirubin 0.2 MG/DL (0.2-1.0) Aspartate Amino Transf (AST/SGOT) 14 U/L (15-37) L Alanine Aminotransferase (ALT/SGPT) 20 U/L (12-78) Alkaline Phosphatase 123 U/L (46-116) H Total Creatine Kinase 35 U/L (26-308) Creatine Kinase MB 1.0 NG/ML (0.0-3.6) Creatine Kinase MB Relative Index 2.8 Troponin I 0.018 ng/mL (0.000-0.056) Total Protein 7.4 G/DL (6.4-8.2) Albumin 3.3 G/DL (3.4-5.0) L Globulin 4.1 g/dL Albumin/Globulin Ratio 0.8 (1.0-2.7) L Height (Feet): 5 Height (Inches): 5.00 Weight (Pounds): 145 Medications Current Medications Medications (Trade) Dose Ordered Sig/Althea Route PRN Reason Start Time Stop Time Status Last Admin Dose Admin Acetaminophen (Tylenol) 650 mg Q4H PRN ORAL T>100.5 03/08/18 11:45 04/07/18 11:44 Albuterol/ Ipratropium (Albuterol/ Ipratropium) 3 ml Q4H PRN HHN Shortness of Breath 03/08/18 11:45 03/13/18 11:44 Atorvastatin Calcium (Lipitor) 20 mg BEDTIME ORAL 03/08/18 21:00 04/07/18 20:59 Dextrose (Dextrose 50%) 25 ml PRN IV Hypoglycemia 03/08/18 12:00 04/07/18 11:59 Dextrose (Dextrose 50%) 50 ml PRN IV hypoglycemia 03/08/18 12:00 04/07/18 11:59 Heparin Sodium (Porcine) (Heparin 5000 units/ml) 5,000 units EVERY 12 HOURS SUBQ 03/08/18 21:00 04/07/18 20:59 Insulin Aspart (NovoLOG) BEFORE MEALS AND HS SUBQ 03/08/18 16:30 04/07/18 16:29 Metoprolol Tartrate (Lopressor) 25 mg Q12HR ORAL 03/08/18 21:00 04/07/18 20:59 Morphine Sulfate (Morphine Sulfate) 2 mg Q4H PRN IVP Moderate Pain (Pain Scale 4-6) 03/08/18 11:45 03/15/18 11:44 Nitroglycerin (Ntg) 0.4 mg Q5MIN X 3 DOSES PRN SL Prn Chest Pain 03/08/18 12:00 04/07/18 11:59 Ondansetron HCl (Zofran) 4 mg Q6H PRN IVP Nausea & Vomiting 03/08/18 11:45 04/07/18 11:44 Polyethylene Glycol (Miralax) 17 gm DAILYPRN PRN ORAL Constipation 03/08/18 11:45 04/07/18 11:44 Quetiapine Fumarate (SEROquel) 12.5 mg Q12HR ORAL 03/08/18 21:00 04/07/18 20:59 Temazepam (Restoril) 15 mg HSPRN PRN ORAL Insomnia 03/08/18 21:00 03/15/18 20:59 Vancomycin HCl 500 mg/Dextrose 110 ml @ 110 mls/hr ONCE ONCE IVPB 03/08/18 14:00 03/08/18 14:59 Lit Cerna MD Mar 08, 2018 14:09
--- NOTE | 2018-03-08 14:32 | History and Physical ---
History of Present Illness General Date patient seen: Mar 08, 2018 Reason for Hospitalization: Skin Rash/Abscess Present Illness HPI 67 year old female with hx of ESRF, DM, R AKA, assisted resident brought in for worsening of decubitus ulcer Patient herself is nonverbal cannot communicate appropriately and all information is obtained from the chart. Pt is awake and comfortable, but not communicating. Allergies: Coded Allergies: No Known Allergies (Unverified , 09/15/16) Medication History Scheduled Amino Acids/Protein Hydrolys (Pro-Stat Liquid), 45 ML ORAL TWICE A DAY, ( Reported) Apixaban (Eliquis), 10 MG PO BID Apixaban (Eliquis), 5 MG PO BID, (Reported) Aspirin* (Aspirin*), 81 MG ORAL DAILY, (Reported) Atorvastatin Calcium* (Atorvastatin Calcium*), 20 MG ORAL BEDTIME, (Reported) Collagenase Clostridium Hist. (Santyl), 1 APPLIC TP DAILY, (Reported) Docusate Sodium* (Docusate Sodium*), 100 MG ORAL THREE TIMES A DAY, (Reported) Esomeprazole Magnesium (Nexium), 40 MG ORAL DAILY, (Reported) Ferrous Sulfate* (Ferrous Sulfate*), 325 MG ORAL DAILY, (Reported) Hydralazine Hcl* (Hydralazine Hcl*), 25 MG ORAL EVERY 8 HOURS, (Reported) Ibuprofen* (Motrin*), 400 MG ORAL Q6H, (Reported) Insulin Glargine (Lantus), 20 SUBQ BEDTIME, (Reported) Lorazepam* (Lorazepam*), 2 MG ORAL DAILY, (Reported) Metoclopramide Hcl* (Metoclopramide Hcl*), 5 MG ORAL EVERY 6 HOURS, (Reported) Metoprolol Tartrate* (Metoprolol Tartrate*), 50 MG ORAL DAILY, (Reported) Pantoprazole* (Protonix*), 40 MG ORAL DAILY, (Reported) Polyethylene Glycol 3350* (Miralax*), 17 GM ORAL BEDTIME, (Reported) Quetiapine Fumarate* (Seroquel*), 12.5 MG ORAL BID, (Reported) Sucralfate* (Carafate*), 1 GM ORAL BEDTIME, (Reported) [Nephro Aid], 1 TAB PO DAILY, (Reported) Scheduled PRN Acetaminophen* (Acetaminophen 325MG Tablet*), 650 MG ORAL Q4HR PRN for Mild Pain (Pain Scale 1-3), (Reported) Morphine Sulfate* (Morphine Sulfate*), 2 MG IVP Q4HR PRN for For Pain, (Reported ) Nitroglycerin (Nitroglycerin), 0.4 MG SL for Prn Chest Pain, (Reported) Ondansetron* (Zofran*), 4 MG IVP Q6H PRN for Nausea & Vomiting, (Reported) Ondansetron* (Zofran*), 4 MG ORAL Q6H PRN for Nausea & Vomiting, (Reported) Temazepam (Temazepam*), 15 MG ORAL HS PRN for Insomnia, (Reported) Miscellaneous Medications Insulin Aspart (Novolog), 100 UNIT SQ, (Reported) Insuln Asp Prt/Insulin Aspart (Novolog Mix 70-30 Flexpen Syrn), 100 UNIT SQ, ( Reported) Patient History Healthcare decision maker Verenice Del Toro Resuscitation status Advanced Directive on File No Past Medical/Surgical History Past Medical/Surgical History: (1) S/P AKA (above knee amputation) unilateral (2) Decubital ulcer (3) Diabetes mellitus (4) ESRF (end stage renal failure) Review of Systems All Other Systems: negative except mentioned in HPI Physical Exam General Appearance: WD/WN Lines, tubes and drains: peripheral HEENT: anicteric Neck: non-tender, normal alignment Respiratory/Chest: chest wall non-tender, lungs clear Breasts: no masses Cardiovascular/Chest: normal peripheral pulses, normal rate Skin Exam: other - decubiti Last 24 Hour Vital Signs Date Time Temp Pulse Resp B/P (MAP) Pulse Ox O2 Delivery O2 Flow Rate FiO2 03/08/18 12:00 97.4 107 20 118/68 100 97.4 03/08/18 11:50 96.4 75 12 104/56 99 Room Air 96.4 03/08/18 11:00 96.4 75 12 104/56 99 Room Air 96.4 03/08/18 09:45 96.4 20 110/60 98 Room Air 96.4 03/08/18 08:21 96.4 70 20 110/60 98 Room Air 96.4 Laboratory Tests Test 03/08/18 08:30 White Blood Count 8.6 K/UL (4.8-10.8) Red Blood Count 4.24 M/UL (4.20-5.40) Hemoglobin 12.7 G/DL (12.0-16.0) Hematocrit 38.9 % (37.0-47.0) Mean Corpuscular Volume 92 FL (80-99) Mean Corpuscular Hemoglobin 29.9 PG (27.0-31.0) Mean Corpuscular Hemoglobin Concent 32.6 G/DL (32.0-36.0) Red Cell Distribution Width 13.5 % (11.6-14.8) Platelet Count 341 K/UL (150-450) Mean Platelet Volume 13.6 FL (6.5-10.1) H Neutrophils (%) (Auto) 57.0 % (45.0-75.0) Lymphocytes (%) (Auto) 26.2 % (20.0-45.0) Monocytes (%) (Auto) 9.8 % (1.0-10.0) Eosinophils (%) (Auto) 5.6 % (0.0-3.0) H Basophils (%) (Auto) 1.5 % (0.0-2.0) Sodium Level 139 MMOL/L (136-145) Potassium Level 3.7 MMOL/L (3.5-5.1) Chloride Level 100 MMOL/L (98-107) Carbon Dioxide Level 29 MMOL/L (21-32) Anion Gap 10 mmol/L (5-15) Blood Urea Nitrogen 86 mg/dL (7-18) H Creatinine 7.0 MG/DL (0.55-1.30) H Estimat Glomerular Filtration Rate 7.2 mL/min (>60) Glucose Level 99 MG/DL (74-106) Lactic Acid Level 1.10 mmol/L (0.66-2.22) Calcium Level 10.0 MG/DL (8.5-10.1) Total Bilirubin 0.2 MG/DL (0.2-1.0) Aspartate Amino Transf (AST/SGOT) 14 U/L (15-37) L Alanine Aminotransferase (ALT/SGPT) 20 U/L (12-78) Alkaline Phosphatase 123 U/L (46-116) H Total Creatine Kinase 35 U/L (26-308) Creatine Kinase MB 1.0 NG/ML (0.0-3.6) Creatine Kinase MB Relative Index 2.8 Troponin I 0.018 ng/mL (0.000-0.056) Total Protein 7.4 G/DL (6.4-8.2) Albumin 3.3 G/DL (3.4-5.0) L Globulin 4.1 g/dL Albumin/Globulin Ratio 0.8 (1.0-2.7) L Height (Feet): 5 Height (Inches): 5.00 Weight (Pounds): 145 Medications Current Medications Medications (Trade) Dose Ordered Sig/Althea Route PRN Reason Start Time Stop Time Status Last Admin Dose Admin Acetaminophen (Tylenol) 650 mg Q4H PRN ORAL T>100.5 03/08/18 11:45 04/07/18 11:44 Albuterol/ Ipratropium (Albuterol/ Ipratropium) 3 ml Q4H PRN HHN Shortness of Breath 03/08/18 11:45 03/13/18 11:44 Atorvastatin Calcium (Lipitor) 20 mg BEDTIME ORAL 03/08/18 21:00 04/07/18 20:59 Dextrose (Dextrose 50%) 25 ml PRN IV Hypoglycemia 03/08/18 12:00 04/07/18 11:59 Dextrose (Dextrose 50%) 50 ml PRN IV hypoglycemia 03/08/18 12:00 04/07/18 11:59 Heparin Sodium (Porcine) (Heparin 5000 units/ml) 5,000 units EVERY 12 HOURS SUBQ 03/08/18 21:00 04/07/18 20:59 Insulin Aspart (NovoLOG) BEFORE MEALS AND HS SUBQ 03/08/18 16:30 04/07/18 16:29 Metoprolol Tartrate (Lopressor) 25 mg Q12HR ORAL 03/08/18 21:00 04/07/18 20:59 Morphine Sulfate (Morphine Sulfate) 2 mg Q4H PRN IVP Moderate Pain (Pain Scale 4-6) 03/08/18 11:45 03/15/18 11:44 Nitroglycerin (Ntg) 0.4 mg Q5MIN X 3 DOSES PRN SL Prn Chest Pain 03/08/18 12:00 04/07/18 11:59 Ondansetron HCl (Zofran) 4 mg Q6H PRN IVP Nausea & Vomiting 03/08/18 11:45 04/07/18 11:44 Polyethylene Glycol (Miralax) 17 gm DAILYPRN PRN ORAL Constipation 03/08/18 11:45 04/07/18 11:44 Quetiapine Fumarate (SEROquel) 12.5 mg Q12HR ORAL 03/08/18 21:00 04/07/18 20:59 Temazepam (Restoril) 15 mg HSPRN PRN ORAL Insomnia 03/08/18 21:00 03/15/18 20:59 Vancomycin HCl 500 mg/Dextrose 110 ml @ 110 mls/hr ONCE ONCE IVPB 03/08/18 14:00 03/08/18 14:59 Assessment/Plan Problem List: (1) Cellulitis ICD Codes: L03.90 - Cellulitis, unspecified SNOMED: 209993879 (2) Decubital ulcer ICD Codes: L89.90 - Pressure ulcer of unspecified site, unspecified stage SNOMED: 543484875 (3) ESRF (end stage renal failure) ICD Codes: N18.6 - End stage renal disease SNOMED: 61779409 (4) Diabetes mellitus ICD Codes: E11.9 - Type 2 diabetes mellitus without complications SNOMED: 80674054 (5) Sepsis ICD Codes: A41.9 - Sepsis, unspecified organism SNOMED: 42327940 (6) S/P AKA (above knee amputation) unilateral ICD Codes: Z89.619 - Acquired absence of unspecified leg above knee SNOMED: 99590011, 90895079, 631373619 Assessment/Plan surgical debridement iv abx wound care nephrology to see for HD diabetic diet sliding scale Lit Cerna MD Mar 08, 2018 14:32
[2018-03-08 16:00] VITALS: BP 115/64
[2018-03-08] MEDS: NovoLOG Insulin Flexpen SUBQ SCH ×2 (16:30→21:00)
[2018-03-08 20:00] VITALS: BP 105/63
[2018-03-08] MEDS: Metoprolol 25mg tab ORAL SCH (20:56)
[2018-03-08] MEDS: Atorvastatin 20mg tab ORAL SCH (20:56)
[2018-03-08] MEDS: Heparin 5000 units/ml inj SUBQ SCH (20:58)
[2018-03-08] MEDS ORDERED: Cefepime HCl 2 GM in D5W 110 ML IV SCH (21:00)
--- NOTE | 2018-03-08 23:15 | Consultation ---
DATE OF CONSULTATION: 03/08/2018 INFECTIOUS DISEASE CONSULTATION CONSULTING PHYSICIAN: Tank Cook M.D. REQUESTING PHYSICIAN: Lit Cerna M.D. REASON FOR CONSULTATION: Evaluation of the patient for multiple decubitus, possible need for antibiotics. HISTORY OF PRESENT ILLNESS: The patient is a 67-year-old female with multiple medical problems as listed below, who was admitted to this medical center for worsening of decubitus. The patient underwent debridement by the surgeon. I had a discussion with him (surgeon). The patient does not have any significant infection sites. The patient is a poor historian. Much of the information is gathered through the chart and speaking to staff. PAST MEDICAL HISTORY: 1. History of C. difficile. 2. History of UTI. 3. History of left heel decubitus. 4. History of GI bleed. 5. History of vaginal bleed. 6. History of thickened endometrium and left adnexal mass. 7. History of end-stage renal disease, on hemodialysis, status post AV graft. 8. History of dementia. 9. History of bilateral lower extremity DVT. 10. Peripheral vascular disease. 11. Right [id number] amputation. MEDICATIONS: IV cefepime and vancomycin. ALLERGIES: No known drug allergies. SOCIAL HISTORY: The patient does not smoke. FAMILY HISTORY: Unavailable. REVIEW OF SYSTEMS: Unobtainable. PHYSICAL EXAMINATION: VITAL SIGNS: Temperature 97 degrees, pulse 86, and respiratory rate 18. HEENT: No pale conjunctivae. No icterus. NECK: No lymphadenopathy. CHEST: Clear. HEART: S1 and S2. ABDOMEN: Soft. EXTREMITIES: Right lower extremity amputation. SKIN: Left buttock/sacral stage III decubitus ulceration, status post debridement, covered by dressing. ASSESSMENT: 1. The patient is a 67-year-old female with multiple medical problems as listed above, who has worsening of sacral decubitus, status post debridement on 03/08/2018, no evidence of infection. 2. No leukocytosis. 3. Afebrile. PLAN: 1. At this time, we can monitor the patient off of antibiotics. 2. Monitor CBC. 3. Monitor BMP. 4. Monitor the patient's clinical course. 5. Monitor chest x-ray. 6. We will follow surgical recommendations. 7. Based on the patient's clinical course and labs, we will do further recommendation. Thank you, Dr. Cerna, for allowing me to participate in the care of this patient. I will follow the patient with you during this hospitalization. Tank Cook M.D. DR: JOSE JOB#: [id number] CC:
[2018-03-09] VITALS (8 sets, daily range): BP systolic 84–132; BP diastolic 52–68
[2018-03-09] MEDS ORDERED: Vancomycin 1 GM in D5W 275 ML IV SCH (00:30)
[2018-03-09] MEDS: NovoLOG Insulin Flexpen SUBQ SCH ×4 (05:58→21:26)
[2018-03-09 08:30] LABS: BASOPHILS % (AUTO) 1.3 % (0.0-2.0); EOSINOPHILS % (AUTO) 6.7 % (0.0-3.0); HEMATOCRIT 33.7 % (37.0-47.0); HEMOGLOBIN 11.8 G/DL (12.0-16.0); LYMPHOCYTES % (AUTO) 29.1 % (20.0-45.0); MEAN CORPUSCULAR VOLUME 91 FL (80-99); MONOCYTES % (AUTO) 10.5 % (1.0-10.0); NEUTROPHILS % (AUTO) 52.3 % (45.0-75.0); PLATELET COUNT 283 K/UL (150-450); RED BLOOD COUNT 3.69 M/UL (4.20-5.40); RED CELL DISTRIBUTION WIDTH 13.5 % (11.6-14.8); WHITE BLOOD COUNT 5.7 K/UL (4.8-10.8)
[2018-03-09] MEDS: Metoprolol 25mg tab ORAL SCH (09:00)
[2018-03-09] MEDS: Heparin 5000 units/ml inj SUBQ SCH ×2 (09:12→21:26)
[2018-03-09 09:13] LABS: ALANINE AMINOTRANSFERASE 19 U/L (12-78); ALBUMIN/GLOBULIN RATIO 0.8 (1.0-2.7); ALKALINE PHOSPHATASE 112 U/L (46-116); ANION GAP 17 mmol/L (5-15); ASPARTATE AMINO TRANSFERASE 11 U/L (15-37); BILIRUBIN,TOTAL 0.3 MG/DL (0.2-1.0); BLOOD UREA NITROGEN 103 mg/dL (7-18); CALCIUM 9.6 MG/DL (8.5-10.1); CARBON DIOXIDE 24 MMOL/L (21-32); CHLORIDE 101 MMOL/L (98-107); CREATININE 7.9 MG/DL (0.55-1.30); POTASSIUM 4.1 MMOL/L (3.5-5.1); SODIUM 142 MMOL/L (136-145)
--- NOTE | 2018-03-09 10:18 | Pulmonology Progress Note ---
Assessment/Plan Problems: (1) Decubital ulcer (2) ESRF (end stage renal failure) (3) Diabetes mellitus (4) S/P AKA (above knee amputation) unilateral Assessment/Plan stage 3 decubitus ulcer 4cm x 5cm debrided by surgeon wound care Off abx, ID recommendation appreciated, watch WBC and temperature off abx Subjective ROS Limited/Unobtainable: No Interval Events: no new complains Constitutional: Reports: no symptoms HEENT: Repors: no symptoms Allergies: Coded Allergies: No Known Allergies (Unverified , 09/15/16) Objective Last 24 Hour Vital Signs Date Time Temp Pulse Resp B/P (MAP) Pulse Ox O2 Delivery O2 Flow Rate FiO2 03/09/18 09:14 74 18 101/56 03/09/18 09:00 74 87/60 03/09/18 08:00 97.3 72 20 84/54 97 97.3 03/09/18 04:00 97.0 72 20 102/57 99 Room Air 97.0 03/09/18 00:00 98.0 72 20 97/52 96 Room Air 98.0 03/08/18 20:56 81 115/64 03/08/18 20:00 97.4 82 20 105/63 95 Room Air 97.4 03/08/18 16:00 97.6 81 20 115/64 96 97.6 03/08/18 12:00 97.4 107 20 118/68 100 97.4 03/08/18 11:50 96.4 75 12 104/56 99 Room Air 96.4 03/08/18 11:00 96.4 75 12 104/56 99 Room Air 96.4 Intake and Output 03/08/18 03/09/18 19:00 07:00 Intake Total 877.416 ml Output Total 150 ml Balance 877.416 ml -150 ml Intake Oral 240 ml IV Total 637.416 ml Output Urine Total 150 ml # Bowel Movements 2 2 General Appearance: WD/WN HEENT: normocephalic, atraumatic Respiratory/Chest: chest wall non-tender, lungs clear Breasts: no masses Cardiovascular: normal peripheral pulses Abdomen: normal bowel sounds, soft, non tender Genitourinary: normal external genitalia Skin: no rash, no lesions Microbiology Date/Time Source Procedure Growth Status 03/08/18 12:05 Wound Gram Stain - Final Resulted 4/20/18 12:05 Wound Culture - Preliminary Gram Negative Bacillus 1 Resulted Laboratory Tests 03/09/18 06:50: White Blood Count 5.7, Red Blood Count 3.69L, Hemoglobin 11.8L, Hematocrit 33.7L , Mean Corpuscular Volume 91, Mean Corpuscular Hemoglobin 31.9H, Mean Corpuscular Hemoglobin Concent 34.9, Red Cell Distribution Width 13.5, Platelet Count 283, Mean Platelet Volume 8.8, Neutrophils (%) (Auto) 52.3, Lymphocytes (% ) (Auto) 29.1, Monocytes (%) (Auto) 10.5H, Eosinophils (%) (Auto) 6.7H, Basophils (%) (Auto) 1.3, Sodium Level 142, Potassium Level 4.1, Chloride Level 101, Carbon Dioxide Level 24, Anion Gap 17H, Blood Urea Nitrogen 103H, Creatinine 7.9H, Estimat Glomerular Filtration Rate 6.2, Glucose Level 89, Calcium Level 9.6, Total Bilirubin 0.3, Aspartate Amino Transf (AST/SGOT) 11L, Alanine Aminotransferase (ALT/SGPT) 19, Alkaline Phosphatase 112, Total Protein 6.8, Albumin 3.0L, Globulin 3.8, Albumin/Globulin Ratio 0.8L Current Medications Medications (Trade) Dose Ordered Sig/Althea Route PRN Reason Start Time Stop Time Status Last Admin Dose Admin Acetaminophen (Tylenol) 650 mg Q4H PRN ORAL T>100.5 03/08/18 11:45 04/07/18 11:44 Albuterol/ Ipratropium (Albuterol/ Ipratropium) 3 ml Q4H PRN HHN Shortness of Breath 03/08/18 11:45 03/13/18 11:44 Atorvastatin Calcium (Lipitor) 20 mg BEDTIME ORAL 03/08/18 21:00 04/07/18 20:59 03/08/18 20:56 Dextrose (Dextrose 50%) 25 ml PRN IV Hypoglycemia 03/08/18 12:00 04/07/18 11:59 Dextrose (Dextrose 50%) 50 ml PRN IV hypoglycemia 03/08/18 12:00 04/07/18 11:59 Heparin Sodium (Porcine) (Heparin 5000 units/ml) 5,000 units EVERY 12 HOURS SUBQ 4/20/18 21:00 04/07/18 20:59 03/09/18 09:12 Insulin Aspart (NovoLOG) BEFORE MEALS AND HS SUBQ 03/08/18 16:30 04/07/18 16:29 03/08/18 21:00 Metoprolol Tartrate (Lopressor) 25 mg Q12HR ORAL 03/08/18 21:00 04/07/18 20:59 03/08/18 20:56 Morphine Sulfate (Morphine Sulfate) 2 mg Q4H PRN IVP Moderate Pain (Pain Scale 4-6) 03/08/18 11:45 03/15/18 11:44 Nitroglycerin (Ntg) 0.4 mg Q5MIN X 3 DOSES PRN SL Prn Chest Pain 03/08/18 12:00 04/07/18 11:59 Ondansetron HCl (Zofran) 4 mg Q6H PRN IVP Nausea & Vomiting 03/08/18 11:45 04/07/18 11:44 Polyethylene Glycol (Miralax) 17 gm DAILYPRN PRN ORAL Constipation 03/08/18 11:45 04/07/18 11:44 Quetiapine Fumarate (SEROquel) 12.5 mg Q12HR ORAL 03/08/18 21:00 04/07/18 20:59 03/09/18 09:09 Temazepam (Restoril) 15 mg HSPRN PRN ORAL Insomnia 03/08/18 21:00 03/15/18 20:59 Lit Cerna MD Mar 09, 2018 10:18
--- NOTE | 2018-03-09 10:23 | Consultation ---
Consult Note Consult Note asked to manage for dialysis Patient placed by paramedics for worsening decubitus ulcer Patient herself is nonverbal cannot communicate appropriately Patient has had fairly significant past medical history including previous CVA There was no reports of vomiting or diarrhea Unknown regarding recent antibiotic intake last HD on 03/06 Assessment/Plan End-stage renal disease, on hemodialysis every Sunday, Sunday, and Sunday. Last dialysis was 03/06 Admitted for worsenning decub, debrided 03/[address] Dugan Other: 1. Type 2 diabetes. 2. Hypertension. 3. Anemia of chronic renal disease 4. Hypercholesterolemia. 5. Peripheral vascular disease. 6. Alzheimer's dementia. 7. ?? LUNG MASS PAST SURGICAL HISTORY: Significant for: 1. Right [id number] amputation. 2. Open reduction internal fixation of the left femoral neck on 07/20/2016. Plan: HD today- Keep BP above 100 syst monitor BS Per orders TAQUERIA JACOBSON Mar 09, 2018 10:23
--- NOTE | 2018-03-09 12:19 | Infectious Diseases Prog Note ---
Assessment/Plan Assessment/Plan ASSESSMENT: The patient is a 67-year-old female with worsening of sacral decubitus, Wnd Cx : GNR ( Colonizer ) status post debridement on 03/08/2018, no evidence of infection. No leukocytosis. Afebrile. Hx of C. difficile. History of UTI. History of left heel decubitus. History of GI bleed. History of vaginal bleed. History of thickened endometrium and left adnexal mass. History of end-stage renal disease, on hemodialysis, status post AV graft. \History of dementia. History of bilateral lower extremity DVT. Peripheral vascular disease. Right [id number] amputation. PLAN: monitor the patient off of antibiotics. Monitor CBC. Monitor BMP. Monitor the patient's clinical course. Monitor chest x-ray. surgical fup Subjective Constitutional: Denies: no symptoms, fever, chills, fatigue, anorexia, drenching sweats, other Allergies: Coded Allergies: No Known Allergies (Unverified , 09/15/16) Objective Vital Signs Last 24 Hour Vital Signs Date Time Temp Pulse Resp B/P (MAP) Pulse Ox O2 Delivery O2 Flow Rate FiO2 03/09/18 09:14 74 18 101/56 03/09/18 09:00 74 87/60 03/09/18 08:00 97.3 72 20 84/54 97 97.3 03/09/18 04:00 97.0 72 20 102/57 99 Room Air 97.0 03/09/18 00:00 98.0 72 20 97/52 96 Room Air 98.0 03/08/18 20:56 81 115/64 03/08/18 20:00 97.4 82 20 105/63 95 Room Air 97.4 03/08/18 16:00 97.6 81 20 115/64 96 97.6 Height (Feet): 5 Height (Inches): 5.00 Weight (Pounds): 145 HEENT: mucous membranes moist Respiratory/Chest: no respiratory distress Cardiovascular: regularly irregular Abdomen: no organomegaly Microbiology Date/Time Source Procedure Growth Status 03/08/18 12:05 Wound Gram Stain - Final Resulted 03/08/18 12:05 Wound Culture - Preliminary Gram Negative Bacillus 1 Resulted Laboratory Tests Test 03/09/18 06:50 White Blood Count 5.7 K/UL (4.8-10.8) Red Blood Count 3.69 M/UL (4.20-5.40) L Hemoglobin 11.8 G/DL (12.0-16.0) L Hematocrit 33.7 % (37.0-47.0) L Mean Corpuscular Volume 91 FL (80-99) Mean Corpuscular Hemoglobin 31.9 PG (27.0-31.0) H Mean Corpuscular Hemoglobin Concent 34.9 G/DL (32.0-36.0) Red Cell Distribution Width 13.5 % (11.6-14.8) Platelet Count 283 K/UL (150-450) Mean Platelet Volume 8.8 FL (6.5-10.1) Neutrophils (%) (Auto) 52.3 % (45.0-75.0) Lymphocytes (%) (Auto) 29.1 % (20.0-45.0) Monocytes (%) (Auto) 10.5 % (1.0-10.0) H Eosinophils (%) (Auto) 6.7 % (0.0-3.0) H Basophils (%) (Auto) 1.3 % (0.0-2.0) Sodium Level 142 MMOL/L (136-145) Potassium Level 4.1 MMOL/L (3.5-5.1) Chloride Level 101 MMOL/L (98-107) Carbon Dioxide Level 24 MMOL/L (21-32) Anion Gap 17 mmol/L (5-15) H Blood Urea Nitrogen 103 mg/dL (7-18) H Creatinine 7.9 MG/DL (0.55-1.30) H Estimat Glomerular Filtration Rate 6.2 mL/min (>60) Glucose Level 89 MG/DL (74-106) Calcium Level 9.6 MG/DL (8.5-10.1) Total Bilirubin 0.3 MG/DL (0.2-1.0) Aspartate Amino Transf (AST/SGOT) 11 U/L (15-37) L Alanine Aminotransferase (ALT/SGPT) 19 U/L (12-78) Alkaline Phosphatase 112 U/L (46-116) C-Reactive Protein, Quantitative < 0.4 mg/dL (0.00-0.90) Total Protein 6.8 G/DL (6.4-8.2) Albumin 3.0 G/DL (3.4-5.0) L Globulin 3.8 g/dL Albumin/Globulin Ratio 0.8 (1.0-2.7) L Current Medications Medications (Trade) Dose Ordered Sig/Althea Route PRN Reason Start Time Stop Time Status Last Admin Dose Admin Acetaminophen (Tylenol) 650 mg Q4H PRN ORAL T>100.5 03/08/18 11:45 04/07/18 11:44 Albuterol/ Ipratropium (Albuterol/ Ipratropium) 3 ml Q4H PRN HHN Shortness of Breath 03/08/18 11:45 03/13/18 11:44 Atorvastatin Calcium (Lipitor) 20 mg BEDTIME ORAL 03/08/18 21:00 04/07/18 20:59 03/08/18 20:56 Dextrose (Dextrose 50%) 25 ml PRN IV Hypoglycemia 03/08/18 12:00 04/07/18 11:59 Dextrose (Dextrose 50%) 50 ml PRN IV hypoglycemia 03/08/18 12:00 04/07/18 11:59 Heparin Sodium (Porcine) (Heparin 5000 units/ml) 5,000 units EVERY 12 HOURS SUBQ 03/08/18 21:00 04/07/18 20:59 03/09/18 09:12 Insulin Aspart (NovoLOG) BEFORE MEALS AND HS SUBQ 03/08/18 16:30 04/07/18 16:29 03/08/18 21:00 Metoprolol Tartrate (Lopressor) 12.5 mg Q12HR ORAL 03/09/18 21:00 04/07/18 20:59 Morphine Sulfate (Morphine Sulfate) 2 mg Q4H PRN IVP Moderate Pain (Pain Scale 4-6) 03/08/18 11:45 03/15/18 11:44 Nitroglycerin (Ntg) 0.4 mg Q5MIN X 3 DOSES PRN SL Prn Chest Pain 03/08/18 12:00 04/07/18 11:59 Ondansetron HCl (Zofran) 4 mg Q6H PRN IVP Nausea & Vomiting 03/08/18 11:45 04/07/18 11:44 Polyethylene Glycol (Miralax) 17 gm DAILYPRN PRN ORAL Constipation 03/08/18 11:45 04/07/18 11:44 Quetiapine Fumarate (SEROquel) 12.5 mg Q12HR ORAL 03/08/18 21:00 04/07/18 20:59 03/09/18 09:09 Temazepam (Restoril) 15 mg HSPRN PRN ORAL Insomnia 03/08/18 21:00 03/15/18 20:59 Tank Cook MD Mar 09, 2018 12:19
[2018-03-09] MEDS ORDERED: Cefepime 500mg in D5W 55ml IVPB SCH (13:00)
[2018-03-09] MEDS ORDERED: Tubing IV Secondary IV ONE (15:30)
[2018-03-09] MEDS ORDERED: NS 275ml ONE (15:30)
--- NOTE | 2018-03-09 16:40 | Physician Query ---
--------- THIS DOCUMENT IS A PERMANENT PART OF THE MEDICAL RECORD --------- PLEASE COMPLETE THE FORM BEFORE SIGNING Dear ALAINA Ferrell Date:03/09/18 Metallurgical Engineer/CDS Name: Tamika Madrid Metallurgical Engineer/ CDS Phone No: [phone] Exercise your independent professional judgment when responding to query. Questions asked do not imply particular answer is desired or expected. We greatly appreciate your clarification on this issue. Because there is documentation in the medical record of "Debridement", clarification is needed. Please document whether this is "Excisional" or "Nonexcisional" Debridement of the wound, infection or burn. [] Excisional: The removal of necrotic, devitalized tissue or slough by means of cutting away of tissue (the use of scissors, scalpel or curette are common). [xx] Nonexcisional: The removal of necrotic, devitalized tissue or slough by means of flushing, brushing or washing (irrigating). Documentation should also include the "depth" of tissue removed, e.g., [xx] skin [] subcutaneous tissue and fascia [] muscle or [] bone. Please document the appropriate type of Debridement on the Progress Notes or on this form as an addendum to the patient's record. (Sign and date all documents). Dr. ALAINA GARCIA Date/Time [facility]
[2018-03-09] MEDS ORDERED: Albumin Human 5% 250ml IV ONE (18:00)
[2018-03-09] MEDS: Metoprolol Tartrate 12.5mg TAB ORAL SCH (21:24)
[2018-03-09] MEDS: Atorvastatin 20mg tab ORAL SCH (21:25)
[2018-03-10] VITALS: BP 108/52
[2018-03-10 04:00] VITALS: BP 95/56
[2018-03-10] MEDS: NovoLOG Insulin Flexpen SUBQ SCH ×4 (06:35→21:50)
[2018-03-10 07:30] LABS: BASOPHILS % (AUTO) 0.9 % (0.0-2.0); EOSINOPHILS % (AUTO) 4.6 % (0.0-3.0); HEMATOCRIT 32.2 % (37.0-47.0); HEMOGLOBIN 11.1 G/DL (12.0-16.0); LYMPHOCYTES % (AUTO) 24.6 % (20.0-45.0); MEAN CORPUSCULAR VOLUME 91 FL (80-99); MONOCYTES % (AUTO) 9.7 % (1.0-10.0); NEUTROPHILS % (AUTO) 60.2 % (45.0-75.0); PLATELET COUNT 310 K/UL (150-450); RED BLOOD COUNT 3.54 M/UL (4.20-5.40); RED CELL DISTRIBUTION WIDTH 13.5 % (11.6-14.8); WHITE BLOOD COUNT 5.8 K/UL (4.8-10.8)
[2018-03-10 07:56] LABS: ALANINE AMINOTRANSFERASE 22 U/L (12-78); ALBUMIN 2.8 G/DL (3.4-5.0); ALBUMIN/GLOBULIN RATIO 0.8 (1.0-2.7); ALKALINE PHOSPHATASE 105 U/L (46-116); ANION GAP 8 mmol/L (5-15); ASPARTATE AMINO TRANSFERASE 14 U/L (15-37); BILIRUBIN,TOTAL 0.5 MG/DL (0.2-1.0); BLOOD UREA NITROGEN 51 mg/dL (7-18); CALCIUM 9.1 MG/DL (8.5-10.1); CARBON DIOXIDE 34 MMOL/L (21-32); CHLORIDE 99 MMOL/L (98-107); CHOLESTEROL 203 MG/DL (< 200); CREATININE 4.3 MG/DL (0.55-1.30); FERRITIN 379 NG/ML (8-388); HDL CHOLESTEROL 50 MG/DL (40-60); POTASSIUM 3.3 MMOL/L (3.5-5.1); SODIUM 141 MMOL/L (136-145); TRIGLYCERIDES 69 MG/DL (30-150)
[2018-03-10 08:00] VITALS: BP 93/64
[2018-03-10] MEDS: Metoprolol Tartrate 12.5mg TAB ORAL SCH ×2 (09:00→21:00)
[2018-03-10] MEDS: Heparin 5000 units/ml inj SUBQ SCH ×2 (09:18→21:46)
--- NOTE | 2018-03-10 09:44 | Nephrology Progress Note ---
Assessment/Plan Problem List: (1) ESRF (end stage renal failure) (2) Decubital ulcer Assessment End-stage renal disease, on hemodialysis every Sunday, Sunday, and Sunday. Admitted for worsenning decub, debrided 03/[address] Dugan Other: 1. Type 2 diabetes. 2. Hypertension. 3. Anemia of chronic renal disease 4. Hypercholesterolemia. 5. Peripheral vascular disease. 6. Alzheimer's dementia. 7. ?? LUNG MASS PAST SURGICAL HISTORY: Significant for: 1. Right [id number] amputation. 2. Open reduction internal fixation of the left femoral neck on 07/20/2016. Plan Plan: HD 03/09 Keep BP above 100 syst monitor BS Per orders per consultants Subjective ROS Limited/Unobtainable: No Constitutional: Reports: malaise Objective Objective Last 24 Hour Vital Signs Date Time Temp Pulse Resp B/P (MAP) Pulse Ox O2 Delivery O2 Flow Rate FiO2 03/10/18 09:00 73 95/56 03/10/18 07:50 73 20 Room Air 21 03/10/18 04:00 97.5 73 20 95/56 97.5 03/10/18 00:00 98.1 76 20 108/52 94 98.1 03/09/18 21:24 75 132/68 03/09/18 20:39 Room Air 03/09/18 20:38 97.9 75 20 132/68 Room Air 97.9 03/09/18 17:00 Room Air 03/09/18 17:00 97.6 20 99/62 Room Air 97.6 03/09/18 16:00 97.3 74 18 103/63 96 Room Air 97.3 03/09/18 14:14 95 20 Room Air 21 03/09/18 12:00 97.3 78 20 114/52 99 97.3 Intake and Output 03/09/18 03/10/18 19:00 07:00 Intake Total 1360 ml Output Total 520 ml Balance 1360 ml -520 ml Intake Oral 1360 ml Output Urine Total 520 ml Hemodialysis UF 0 ml # Voids 4 # Bowel Movements 1 2 Laboratory Tests 03/10/18 06:00: White Blood Count 5.8, Red Blood Count 3.54L, Hemoglobin 11.1L, Hematocrit 32.2L , Mean Corpuscular Volume 91, Mean Corpuscular Hemoglobin 31.4H, Mean Corpuscular Hemoglobin Concent 34.5, Red Cell Distribution Width 13.5, Platelet Count 310, Mean Platelet Volume 9.4, Neutrophils (%) (Auto) 60.2, Lymphocytes (% ) (Auto) 24.6, Monocytes (%) (Auto) 9.7, Eosinophils (%) (Auto) 4.6H, Basophils (%) (Auto) 0.9, Sodium Level 141, Potassium Level 3.3L, Chloride Level 99, Carbon Dioxide Level 34H, Anion Gap 8, Blood Urea Nitrogen 51H, Creatinine 4.3H , Estimat Glomerular Filtration Rate 12.5, Glucose Level 105, Hemoglobin A1c 7.1H, Uric Acid 3.9, Calcium Level 9.1, Phosphorus Level 4.0, Magnesium Level 2.1, Ferritin 379, Total Bilirubin 0.5, Gamma Glutamyl Transpeptidase 28, Aspartate Amino Transf (AST/SGOT) 14L, Alanine Aminotransferase (ALT/SGPT) 22, Alkaline Phosphatase 105, Troponin I 0.054, Pro-B-Type Natriuretic Peptide 2116H , Total Protein 6.2L, Albumin 2.8L, Globulin 3.4, Albumin/Globulin Ratio 0.8L, Triglycerides Level 69, Cholesterol Level 203H, LDL Cholesterol 119H, HDL Cholesterol 50, Cholesterol/HDL Ratio 4.1, Vitamin B12 Level 632, Folate 19.8, Thyroid Stimulating Hormone (TSH) 0.276L, Random Vancomycin Level 11.6 Height (Feet): 5 Height (Inches): 5.00 Weight (Pounds): 145 General Appearance: no apparent distress Cardiovascular: normal rate Respiratory/Chest: decreased breath sounds Abdomen: soft Objective no other changes TAQUERIA JACOBSON Mar 10, 2018 09:44
[2018-03-10 12:00] VITALS: BP 104/60
[2018-03-10 16:00] VITALS: BP 122/63
[2018-03-10 20:00] VITALS: BP 95/52
--- NOTE | 2018-03-10 21:37 | Pulmonology Progress Note ---
Assessment/Plan Problems: (1) Decubital ulcer (2) ESRF (end stage renal failure) (3) Diabetes mellitus (4) S/P AKA (above knee amputation) unilateral Assessment/Plan stage 3 decubitus ulcer 4cm x 5cm debrided by surgeon wound care Off abx, ID recommendation appreciated, watch WBC and temperature off abx symptomatic treatment will dc in am if no fever and leukocytosis Subjective ROS Limited/Unobtainable: No Allergies: Coded Allergies: No Known Allergies (Unverified , 09/15/16) Objective Last 24 Hour Vital Signs Date Time Temp Pulse Resp B/P (MAP) Pulse Ox O2 Delivery O2 Flow Rate FiO2 03/10/18 20:25 84 20 Room Air 21 03/10/18 20:00 98.7 83 19 95/52 93 98.7 03/10/18 16:00 97.6 86 20 122/63 96 Room Air 97.6 03/10/18 12:00 97.9 84 18 104/60 97 Room Air 97.9 03/10/18 09:00 73 95/56 03/10/18 08:01 18 97 Room Air 03/10/18 08:00 98.2 87 8 93/64 98.2 03/10/18 07:50 73 20 Room Air 21 03/10/18 04:00 97.5 73 20 95/56 97.5 03/10/18 00:00 98.1 76 20 108/52 94 98.1 Intake and Output 03/09/18 03/10/18 19:00 07:00 Intake Total 1360 ml Output Total 520 ml Balance 1360 ml -520 ml Intake Oral 1360 ml Output Urine Total 520 ml Hemodialysis UF 0 ml # Voids 4 # Bowel Movements 1 2 General Appearance: cachetic HEENT: normocephalic, anicteric Respiratory/Chest: chest wall non-tender, lungs clear Breasts: no masses Cardiovascular: normal peripheral pulses, normal rate Abdomen: normal bowel sounds, soft, non tender Genitourinary: normal external genitalia Extremities: no cyanosis Skin: no rash Microbiology Date/Time Source Procedure Growth Status 03/08/18 08:45 Blood Blood Culture - Preliminary NO GROWTH AFTER 24 HOURS Resulted 03/08/18 08:30 Blood Blood Culture - Preliminary NO GROWTH AFTER 24 HOURS Resulted 03/08/18 12:05 Wound Gram Stain - Final Resulted 03/08/18 12:05 Wound Culture - Preliminary Gram Negative Bacillus 1 Gram Negative Bacillus 2 Staphylococcus Aureus Resulted 03/08/18 09:10 Nasal Nares MRSA Culture - Final NO METHICILLIN RESISTANT STAPH AUREUS... Complete 03/08/18 09:10 Rectum VRE Culture - Final NO VANCOMYCIN RESISTANT ENTEROCOCCUS ... Complete Laboratory Tests 03/10/18 06:00: White Blood Count 5.8, Red Blood Count 3.54L, Hemoglobin 11.1L, Hematocrit 32.2L , Mean Corpuscular Volume 91, Mean Corpuscular Hemoglobin 31.4H, Mean Corpuscular Hemoglobin Concent 34.5, Red Cell Distribution Width 13.5, Platelet Count 310, Mean Platelet Volume 9.4, Neutrophils (%) (Auto) 60.2, Lymphocytes (% ) (Auto) 24.6, Monocytes (%) (Auto) 9.7, Eosinophils (%) (Auto) 4.6H, Basophils (%) (Auto) 0.9, Sodium Level 141, Potassium Level 3.3L, Chloride Level 99, Carbon Dioxide Level 34H, Anion Gap 8, Blood Urea Nitrogen 51H, Creatinine 4.3H , Estimat Glomerular Filtration Rate 12.5, Glucose Level 105, Hemoglobin A1c 7.1H, Uric Acid 3.9, Calcium Level 9.1, Phosphorus Level 4.0, Magnesium Level 2.1, Ferritin 379, Total Bilirubin 0.5, Gamma Glutamyl Transpeptidase 28, Aspartate Amino Transf (AST/SGOT) 14L, Alanine Aminotransferase (ALT/SGPT) 22, Alkaline Phosphatase 105, Troponin I 0.054, Pro-B-Type Natriuretic Peptide 2116H , Total Protein 6.2L, Albumin 2.8L, Globulin 3.4, Albumin/Globulin Ratio 0.8L, Triglycerides Level 69, Cholesterol Level 203H, LDL Cholesterol 119H, HDL Cholesterol 50, Cholesterol/HDL Ratio 4.1, Vitamin B12 Level 632, Folate 19.8, Thyroid Stimulating Hormone (TSH) 0.276L, Random Vancomycin Level 11.6 Current Medications Medications (Trade) Dose Ordered Sig/Althea Route PRN Reason Start Time Stop Time Status Last Admin Dose Admin Acetaminophen (Tylenol) 650 mg Q4H PRN ORAL T>100.5 03/08/18 11:45 04/07/18 11:44 Albuterol/ Ipratropium (Albuterol/ Ipratropium) 3 ml Q4H PRN HHN Shortness of Breath 03/08/18 11:45 03/13/18 11:44 Atorvastatin Calcium (Lipitor) 20 mg BEDTIME ORAL 03/08/18 21:00 04/07/18 20:59 03/09/18 21:25 Dextrose (Dextrose 50%) 25 ml PRN IV Hypoglycemia 03/08/18 12:00 04/07/18 11:59 Dextrose (Dextrose 50%) 50 ml PRN IV hypoglycemia 03/08/18 12:00 04/07/18 11:59 Heparin Sodium (Porcine) (Heparin 5000 units/ml) 5,000 units EVERY 12 HOURS SUBQ 03/08/18 21:00 04/07/18 20:59 03/10/18 09:18 Insulin Aspart (NovoLOG) BEFORE MEALS AND HS SUBQ 03/08/18 16:30 04/07/18 16:29 03/10/18 11:51 Metoprolol Tartrate (Lopressor) 12.5 mg Q12HR ORAL 03/09/18 21:00 04/07/18 20:59 03/09/18 21:24 Morphine Sulfate (Morphine Sulfate) 2 mg Q4H PRN IVP Moderate Pain (Pain Scale 4-6) 03/08/18 11:45 03/15/18 11:44 Nitroglycerin (Ntg) 0.4 mg Q5MIN X 3 DOSES PRN SL Prn Chest Pain 03/08/18 12:00 04/07/18 11:59 Ondansetron HCl (Zofran) 4 mg Q6H PRN IVP Nausea & Vomiting 03/08/18 11:45 04/07/18 11:44 Polyethylene Glycol (Miralax) 17 gm DAILYPRN PRN ORAL Constipation 03/08/18 11:45 04/07/18 11:44 Quetiapine Fumarate (SEROquel) 12.5 mg Q12HR ORAL 03/08/18 21:00 04/07/18 20:59 03/10/18 09:03 Temazepam (Restoril) 15 mg HSPRN PRN ORAL Insomnia 03/08/18 21:00 03/15/18 20:59 Lit Cerna MD Mar 10, 2018 21:37
[2018-03-10] MEDS: Atorvastatin 20mg tab ORAL SCH (21:41)
[2018-03-11] VITALS: BP 120/73
[2018-03-11 04:00] VITALS: BP 119/71
[2018-03-11] MEDS: NovoLOG Insulin Flexpen SUBQ SCH ×4 (06:28→20:50)
[2018-03-11 08:00] VITALS: BP 122/61
[2018-03-11] MEDS: Metoprolol Tartrate 12.5mg TAB ORAL SCH ×2 (08:43→20:47)
[2018-03-11] MEDS: Heparin 5000 units/ml inj SUBQ SCH ×2 (08:46→20:49)
[2018-03-11 12:00] VITALS: BP 106/64
--- NOTE | 2018-03-11 12:25 | Infectious Diseases Prog Note ---
Assessment/Plan Assessment/Plan ASSESSMENT: The patient is a 67-year-old female with worsening of sacral decubitus, Wnd Cx : PsA (rose S), E.coli (R amp, otherwise S) , MRSA (S Vanco, bactrim, tetracycline); Colonizers status post debridement on 03/08/2018, no evidence of infection. No leukocytosis. Afebrile. Hx of C. difficile. History of UTI. History of left heel decubitus. History of GI bleed. History of vaginal bleed. History of thickened endometrium and left adnexal mass. History of end-stage renal disease, on hemodialysis, status post AV graft. \History of dementia. History of bilateral lower extremity DVT. Peripheral vascular disease. Right [id number]-husd amputation. PLAN: monitor the patient off of antibiotics. Monitor CBC. Monitor BMP. Monitor the patient's clinical course. Monitor chest x-ray. surgical fup wound care Subjective Allergies: Coded Allergies: No Known Allergies (Unverified , 09/15/16) Subjective afebrile no leukocytosis offa bx Objective Vital Signs Last 24 Hour Vital Signs Date Time Temp Pulse Resp B/P (MAP) Pulse Ox O2 Delivery O2 Flow Rate FiO2 03/11/18 08:43 81 122/61 03/11/18 08:00 98.0 81 19 122/61 99 Room Air 98.0 03/11/18 04:00 97.1 85 19 119/71 92 97.1 03/11/18 00:00 97.8 93 19 120/73 95 97.8 03/10/18 21:00 83 95/52 03/10/18 20:25 84 20 Room Air 21 03/10/18 20:00 98.7 83 19 95/52 93 98.7 03/10/18 16:00 97.6 86 20 122/63 96 Room Air 97.6 Height (Feet): 5 Height (Inches): 5.00 Weight (Pounds): 145 Objective HEENT: mucous membranes moist Respiratory/Chest: no respiratory distress Cardiovascular: regularly irregular Abdomen: no organomegaly Current Medications Medications (Trade) Dose Ordered Sig/Althea Route PRN Reason Start Time Stop Time Status Last Admin Dose Admin Acetaminophen (Tylenol) 650 mg Q4H PRN ORAL T>100.5 03/08/18 11:45 04/07/18 11:44 Albuterol/ Ipratropium (Albuterol/ Ipratropium) 3 ml Q4H PRN HHN Shortness of Breath 03/08/18 11:45 03/13/18 11:44 Atorvastatin Calcium (Lipitor) 20 mg BEDTIME ORAL 03/08/18 21:00 04/07/18 20:59 03/10/18 21:41 Dextrose (Dextrose 50%) 25 ml PRN IV Hypoglycemia 03/08/18 12:00 04/07/18 11:59 Dextrose (Dextrose 50%) 50 ml PRN IV hypoglycemia 03/08/18 12:00 04/07/18 11:59 Heparin Sodium (Porcine) (Heparin 5000 units/ml) 5,000 units EVERY 12 HOURS SUBQ 03/08/18 21:00 04/07/18 20:59 03/11/18 08:46 Insulin Aspart (NovoLOG) BEFORE MEALS AND HS SUBQ 03/08/18 16:30 04/07/18 16:29 03/11/18 12:12 Metoprolol Tartrate (Lopressor) 12.5 mg Q12HR ORAL 03/09/18 21:00 04/07/18 20:59 03/11/18 08:43 Morphine Sulfate (Morphine Sulfate) 2 mg Q4H PRN IVP Moderate Pain (Pain Scale 4-6) 03/08/18 11:45 03/15/18 11:44 Nitroglycerin (Ntg) 0.4 mg Q5MIN X 3 DOSES PRN SL Prn Chest Pain 03/08/18 12:00 04/07/18 11:59 Ondansetron HCl (Zofran) 4 mg Q6H PRN IVP Nausea & Vomiting 03/08/18 11:45 04/07/18 11:44 Polyethylene Glycol (Miralax) 17 gm DAILYPRN PRN ORAL Constipation 03/08/18 11:45 04/07/18 11:44 Quetiapine Fumarate (SEROquel) 12.5 mg Q12HR ORAL 03/08/18 21:00 04/07/18 20:59 03/11/18 08:43 Temazepam (Restoril) 15 mg HSPRN PRN ORAL Insomnia 03/08/18 21:00 03/15/18 20:59 Daisy Arce M.D. Mar 11, 2018 12:25
--- NOTE | 2018-03-11 13:06 | Pulmonology Progress Note ---
Assessment/Plan Problems: (1) Decubital ulcer (2) ESRF (end stage renal failure) (3) Diabetes mellitus (4) S/P AKA (above knee amputation) unilateral Assessment/Plan doing great no new complains stage 3 decubitus ulcer 4cm x 5cm debrided by surgeon wound care Off abx, ID recommendation appreciated, watch WBC and temperature off abx symptomatic treatment will dc to if ok with consultants Subjective ROS Limited/Unobtainable: No Interval Events: no new complains Constitutional: Reports: no symptoms HEENT: Repors: no symptoms Respiratory: Reports: no symptoms Cardiovascular: Reports: no symptoms Allergies: Coded Allergies: No Known Allergies (Unverified , 09/15/16) Objective Last 24 Hour Vital Signs Date Time Temp Pulse Resp B/P (MAP) Pulse Ox O2 Delivery O2 Flow Rate FiO2 03/11/18 12:00 98.3 76 20 106/64 97 Room Air 98.3 03/11/18 08:43 81 122/61 03/11/18 08:00 98.0 81 19 122/61 99 Room Air 98.0 03/11/18 04:00 97.1 85 19 119/71 92 97.1 03/11/18 00:00 97.8 93 19 120/73 95 97.8 03/10/18 21:00 83 95/52 03/10/18 20:25 84 20 Room Air 21 03/10/18 20:00 98.7 83 19 95/52 93 98.7 03/10/18 16:00 97.6 86 20 122/63 96 Room Air 97.6 Intake and Output 03/10/18 03/11/18 19:00 07:00 Intake Total 360 ml 580 ml Output Total 300 ml 600 ml Balance 60 ml -20 ml Intake Oral 360 ml 580 ml Output Urine Total 300 ml 600 ml # Bowel Movements 3 2 General Appearance: WD/WN HEENT: normocephalic, anicteric Breasts: no masses Cardiovascular: normal peripheral pulses, normal rate Abdomen: normal bowel sounds, soft, non tender Genitourinary: normal external genitalia Extremities: no clubbing Skin: no rash Current Medications Medications (Trade) Dose Ordered Sig/Althea Route PRN Reason Start Time Stop Time Status Last Admin Dose Admin Acetaminophen (Tylenol) 650 mg Q4H PRN ORAL T>100.5 03/08/18 11:45 5/20/18 11:44 Albuterol/ Ipratropium (Albuterol/ Ipratropium) 3 ml Q4H PRN HHN Shortness of Breath 03/08/18 11:45 03/13/18 11:44 Atorvastatin Calcium (Lipitor) 20 mg BEDTIME ORAL 03/08/18 21:00 04/07/18 20:59 03/10/18 21:41 Dextrose (Dextrose 50%) 25 ml PRN IV Hypoglycemia 03/08/18 12:00 04/07/18 11:59 Dextrose (Dextrose 50%) 50 ml PRN IV hypoglycemia 03/08/18 12:00 04/07/18 11:59 Heparin Sodium (Porcine) (Heparin 5000 units/ml) 5,000 units EVERY 12 HOURS SUBQ 03/08/18 21:00 04/07/18 20:59 03/11/18 08:46 Insulin Aspart (NovoLOG) BEFORE MEALS AND HS SUBQ 03/08/18 16:30 04/07/18 16:29 03/11/18 12:12 Metoprolol Tartrate (Lopressor) 12.5 mg Q12HR ORAL 03/09/18 21:00 04/07/18 20:59 03/11/18 08:43 Morphine Sulfate (Morphine Sulfate) 2 mg Q4H PRN IVP Moderate Pain (Pain Scale 4-6) 03/08/18 11:45 03/15/18 11:44 Nitroglycerin (Ntg) 0.4 mg Q5MIN X 3 DOSES PRN SL Prn Chest Pain 03/08/18 12:00 04/07/18 11:59 Ondansetron HCl (Zofran) 4 mg Q6H PRN IVP Nausea & Vomiting 03/08/18 11:45 04/07/18 11:44 Polyethylene Glycol (Miralax) 17 gm DAILYPRN PRN ORAL Constipation 03/08/18 11:45 04/07/18 11:44 Quetiapine Fumarate (SEROquel) 12.5 mg Q12HR ORAL 03/08/18 21:00 04/07/18 20:59 03/11/18 08:43 Temazepam (Restoril) 15 mg HSPRN PRN ORAL Insomnia 03/08/18 21:00 03/15/18 20:59 Lit Cerna MD Mar 11, 2018 13:06
--- NOTE | 2018-03-11 14:56 | Consultation ---
History of Present Illness General Date patient seen: Mar 08, 2018 Chief Complaint: Skin Rash/Abscess Present Illness HPI 67-year-old female with multiple medical problems as listed below, dementia and psychosis, who was admitted to this medical center for worsening of decubitus. the pt is on seroquel. the pt was unable to provide history. the pt has impairment of memory and attention. the pt was not able no answer the questions / the pt was anxious. Allergies: Coded Allergies: No Known Allergies (Unverified , 09/15/16) Medication History Scheduled Amino Acids/Protein Hydrolys (Pro-Stat Liquid), 45 ML ORAL TWICE A DAY, ( Reported) Apixaban (Eliquis), 10 MG PO BID Apixaban (Eliquis), 5 MG PO BID, (Reported) Aspirin* (Aspirin*), 81 MG ORAL DAILY, (Reported) Atorvastatin Calcium* (Atorvastatin Calcium*), 20 MG ORAL BEDTIME, (Reported) Collagenase Clostridium Hist. (Santyl), 1 APPLIC TP DAILY, (Reported) Docusate Sodium* (Docusate Sodium*), 100 MG ORAL THREE TIMES A DAY, (Reported) Esomeprazole Magnesium (Nexium), 40 MG ORAL DAILY, (Reported) Ferrous Sulfate* (Ferrous Sulfate*), 325 MG ORAL DAILY, (Reported) Hydralazine Hcl* (Hydralazine Hcl*), 25 MG ORAL EVERY 8 HOURS, (Reported) Ibuprofen* (Motrin*), 400 MG ORAL Q6H, (Reported) Insulin Glargine (Lantus), 20 SUBQ BEDTIME, (Reported) Lorazepam* (Lorazepam*), 2 MG ORAL DAILY, (Reported) Metoclopramide Hcl* (Metoclopramide Hcl*), 5 MG ORAL EVERY 6 HOURS, (Reported) Metoprolol Tartrate* (Metoprolol Tartrate*), 50 MG ORAL DAILY, (Reported) Pantoprazole* (Protonix*), 40 MG ORAL DAILY, (Reported) Polyethylene Glycol 3350* (Miralax*), 17 GM ORAL BEDTIME, (Reported) Quetiapine Fumarate* (Seroquel*), 12.5 MG ORAL BID, (Reported) Sucralfate* (Carafate*), 1 GM ORAL BEDTIME, (Reported) [Nephro Aid], 1 TAB PO DAILY, (Reported) Scheduled PRN Acetaminophen* (Acetaminophen 325MG Tablet*), 650 MG ORAL Q4HR PRN for Mild Pain (Pain Scale 1-3), (Reported) Morphine Sulfate* (Morphine Sulfate*), 2 MG IVP Q4HR PRN for For Pain, (Reported ) Nitroglycerin (Nitroglycerin), 0.4 MG SL for Prn Chest Pain, (Reported) Ondansetron* (Zofran*), 4 MG IVP Q6H PRN for Nausea & Vomiting, (Reported) Ondansetron* (Zofran*), 4 MG ORAL Q6H PRN for Nausea & Vomiting, (Reported) Temazepam (Temazepam*), 15 MG ORAL HS PRN for Insomnia, (Reported) Miscellaneous Medications Insulin Aspart (Novolog), 100 UNIT SQ, (Reported) Insuln Asp Prt/Insulin Aspart (Novolog Mix 70-30 Flexpen Syrn), 100 UNIT SQ, ( Reported) Patient History Limited by: medical condition History Provided By: Patient, Medical Record, PMD Healthcare decision maker Verencie Del Toro Resuscitation status Advanced Directive on File No Past Medical/Surgical History Past Medical/Surgical History: (1) Episode of generalized weakness (2) Non-ST elevation (NSTEMI) myocardial infarction (3) NSTEMI (non-ST elevated myocardial infarction) (4) Hemorrhagic shock (5) Gastric polyp (6) Fever (7) Anemia (8) Aspiration pneumonia (9) Lung mass (10) Vaginal bleeding (11) ATN (acute tubular necrosis) (12) DVT (deep venous thrombosis) (13) Acute encephalopathy (14) Diabetes mellitus (15) ESRF (end stage renal failure) (16) Cellulitis (17) Sepsis (18) Abscess (19) Rash and other nonspecific skin eruption (20) Decubital ulcer Review of Systems Psychiatric: Reports: prior hx, anxiety, depressed feelings, emotional problems Physical Exam General Appearance: no apparent distress, alert, confused Last 24 Hour Vital Signs Date Time Temp Pulse Resp B/P (MAP) Pulse Ox O2 Delivery O2 Flow Rate FiO2 03/11/18 13:45 97 16 Room Air 21 03/11/18 12:00 98.3 76 20 106/64 97 Room Air 98.3 03/11/18 08:43 81 122/61 03/11/18 08:00 98.0 81 19 122/61 99 Room Air 98.0 03/11/18 04:00 97.1 85 19 119/71 92 97.1 03/11/18 00:00 97.8 93 19 120/73 95 97.8 03/10/18 21:00 83 95/52 03/10/18 20:25 84 20 Room Air 21 03/10/18 20:00 98.7 83 19 95/52 93 98.7 03/10/18 16:00 97.6 86 20 122/63 96 Room Air 97.6 Intake and Output 03/10/18 03/11/18 19:00 07:00 Intake Total 360 ml 580 ml Output Total 300 ml 600 ml Balance 60 ml -20 ml Intake Oral 360 ml 580 ml Output Urine Total 300 ml 600 ml # Bowel Movements 3 2 Height (Feet): 5 Height (Inches): 5.00 Weight (Pounds): 145 Medications Current Medications Medications (Trade) Dose Ordered Sig/Althea Route PRN Reason Start Time Stop Time Status Last Admin Dose Admin Acetaminophen (Tylenol) 650 mg Q4H PRN ORAL T>100.5 03/08/18 11:45 04/07/18 11:44 Albuterol/ Ipratropium (Albuterol/ Ipratropium) 3 ml Q4H PRN HHN Shortness of Breath 03/08/18 11:45 03/13/18 11:44 Atorvastatin Calcium (Lipitor) 20 mg BEDTIME ORAL 03/08/18 21:00 04/07/18 20:59 03/10/18 21:41 Dextrose (Dextrose 50%) 25 ml PRN IV Hypoglycemia 03/08/18 12:00 04/07/18 11:59 Dextrose (Dextrose 50%) 50 ml PRN IV hypoglycemia 03/08/18 12:00 04/07/18 11:59 Heparin Sodium (Porcine) (Heparin 5000 units/ml) 5,000 units EVERY 12 HOURS SUBQ 03/08/18 21:00 04/07/18 20:59 03/11/18 08:46 Insulin Aspart (NovoLOG) BEFORE MEALS AND HS SUBQ 03/08/18 16:30 04/07/18 16:29 03/11/18 12:12 Metoprolol Tartrate (Lopressor) 12.5 mg Q12HR ORAL 03/09/18 21:00 04/07/18 20:59 03/11/18 08:43 Morphine Sulfate (Morphine Sulfate) 2 mg Q4H PRN IVP Moderate Pain (Pain Scale 4-6) 03/08/18 11:45 03/15/18 11:44 Nitroglycerin (Ntg) 0.4 mg Q5MIN X 3 DOSES PRN SL Prn Chest Pain 03/08/18 12:00 04/07/18 11:59 Ondansetron HCl (Zofran) 4 mg Q6H PRN IVP Nausea & Vomiting 03/08/18 11:45 04/07/18 11:44 Polyethylene Glycol (Miralax) 17 gm DAILYPRN PRN ORAL Constipation 03/08/18 11:45 04/07/18 11:44 Quetiapine Fumarate (SEROquel) 12.5 mg Q12HR ORAL 03/08/18 21:00 04/07/18 20:59 03/11/18 08:43 Temazepam (Restoril) 15 mg HSPRN PRN ORAL Insomnia 03/08/18 21:00 03/15/18 20:59 Assessment/Plan Status: stable Assessment/Plan dementia with behavioral disturbance encephalopathy -seroquel -the pt lacks capacity to make decisions Belia Grant M.D. Mar 11, 2018 14:56
--- NOTE | 2018-03-11 14:57 | General Progress Note ---
Assessment/Plan Status: stable Assessment/Plan dementia with behavioral disturbance encephalopathy -seroquel -the pt lacks capacity to make decisions Subjective Date patient seen: Mar 11, 2018 Neurologic/Psychiatric: Reports: anxiety, emotional problems Allergies: Coded Allergies: No Known Allergies (Unverified , 09/15/16) Subjective the pt has waxing and waning of consciousness. confused Objective Last 24 Hour Vital Signs Date Time Temp Pulse Resp B/P (MAP) Pulse Ox O2 Delivery O2 Flow Rate FiO2 03/11/18 13:45 97 16 Room Air 21 03/11/18 12:00 98.3 76 20 106/64 97 Room Air 98.3 03/11/18 08:43 81 122/61 03/11/18 08:00 98.0 81 19 122/61 99 Room Air 98.0 03/11/18 04:00 97.1 85 19 119/71 92 97.1 03/11/18 00:00 97.8 93 19 120/73 95 97.8 03/10/18 21:00 83 95/52 03/10/18 20:25 84 20 Room Air 21 03/10/18 20:00 98.7 83 19 95/52 93 98.7 03/10/18 16:00 97.6 86 20 122/63 96 Room Air 97.6 Intake and Output 03/10/18 03/11/18 19:00 07:00 Intake Total 360 ml 580 ml Output Total 300 ml 600 ml Balance 60 ml -20 ml Intake Oral 360 ml 580 ml Output Urine Total 300 ml 600 ml # Bowel Movements 3 2 Height (Feet): 5 Height (Inches): 5.00 Weight (Pounds): 145 General Appearance: no apparent distress, alert, confused Belia Grant M.D. Mar 11, 2018 14:57
[2018-03-11 15:50] VITALS: BP 127/69
--- NOTE | 2018-03-11 16:33 | Nephrology Progress Note ---
Assessment/Plan Problem List: (1) ESRF (end stage renal failure) (2) Decubital ulcer Assessment End-stage renal disease, on hemodialysis every Sunday, Sunday, and Sunday. Admitted for worsenning decub, debrided 03/[address] Dugan Other: 1. Type 2 diabetes. 2. Hypertension. 3. Anemia of chronic renal disease 4. Hypercholesterolemia. 5. Peripheral vascular disease. 6. Alzheimer's dementia. 7. ?? LUNG MASS PAST SURGICAL HISTORY: Significant for: 1. Right lkhry-qbf-[id number] amputation. 2. Open reduction internal fixation of the left femoral neck on 07/20/2016. Plan Plan: HD 03/09 NEXT 03/11 Keep BP above 100 syst monitor BS Per orders per consultants dc PLANNING Subjective ROS Limited/Unobtainable: No Constitutional: Reports: malaise Objective Objective Last 24 Hour Vital Signs Date Time Temp Pulse Resp B/P (MAP) Pulse Ox O2 Delivery O2 Flow Rate FiO2 03/11/18 15:50 98.3 76 21 127/69 97 Room Air 98.3 03/11/18 13:45 97 16 Room Air 21 03/11/18 12:00 98.3 76 20 106/64 97 Room Air 98.3 03/11/18 08:43 81 122/61 03/11/18 08:00 98.0 81 19 122/61 99 Room Air 98.0 03/11/18 04:00 97.1 85 19 119/71 92 97.1 03/11/18 00:00 97.8 93 19 120/73 95 97.8 03/10/18 21:00 83 95/52 03/10/18 20:25 84 20 Room Air 21 03/10/18 20:00 98.7 83 19 95/52 93 98.7 Intake and Output 03/10/18 03/11/18 19:00 07:00 Intake Total 360 ml 580 ml Output Total 300 ml 600 ml Balance 60 ml -20 ml Intake Oral 360 ml 580 ml Output Urine Total 300 ml 600 ml # Bowel Movements 3 2 Height (Feet): 5 Height (Inches): 5.00 Weight (Pounds): 145 General Appearance: no apparent distress Respiratory/Chest: lungs clear Abdomen: soft Objective no other changes TAQUERIA JACOBSON Mar 11, 2018 16:33
[2018-03-11 20:00] VITALS: BP 119/69
[2018-03-11] MEDS: Atorvastatin 20mg tab ORAL SCH (20:46)
--- NOTE | 2018-03-11 21:43 | Consultation ---
History of Present Illness General Date patient seen: Mar 10, 2018 Chief Complaint: Skin Rash/Abscess Present Illness Allergies: Coded Allergies: No Known Allergies (Unverified , 09/15/16) Medication History Scheduled Amino Acids/Protein Hydrolys (Pro-Stat Liquid), 45 ML ORAL TWICE A DAY, ( Reported) Apixaban (Eliquis), 10 MG PO BID Apixaban (Eliquis), 5 MG PO BID, (Reported) Aspirin* (Aspirin*), 81 MG ORAL DAILY, (Reported) Atorvastatin Calcium* (Atorvastatin Calcium*), 20 MG ORAL BEDTIME, (Reported) Collagenase Clostridium Hist. (Santyl), 1 APPLIC TP DAILY, (Reported) Docusate Sodium* (Docusate Sodium*), 100 MG ORAL THREE TIMES A DAY, (Reported) Esomeprazole Magnesium (Nexium), 40 MG ORAL DAILY, (Reported) Ferrous Sulfate* (Ferrous Sulfate*), 325 MG ORAL DAILY, (Reported) Hydralazine Hcl* (Hydralazine Hcl*), 25 MG ORAL EVERY 8 HOURS, (Reported) Ibuprofen* (Motrin*), 400 MG ORAL Q6H, (Reported) Insulin Glargine (Lantus), 20 SUBQ BEDTIME, (Reported) Lorazepam* (Lorazepam*), 2 MG ORAL DAILY, (Reported) Metoclopramide Hcl* (Metoclopramide Hcl*), 5 MG ORAL EVERY 6 HOURS, (Reported) Metoprolol Tartrate* (Metoprolol Tartrate*), 50 MG ORAL DAILY, (Reported) Pantoprazole* (Protonix*), 40 MG ORAL DAILY, (Reported) Polyethylene Glycol 3350* (Miralax*), 17 GM ORAL BEDTIME, (Reported) Quetiapine Fumarate* (Seroquel*), 12.5 MG ORAL BID, (Reported) Sucralfate* (Carafate*), 1 GM ORAL BEDTIME, (Reported) [Nephro Aid], 1 TAB PO DAILY, (Reported) Scheduled PRN Acetaminophen* (Acetaminophen 325MG Tablet*), 650 MG ORAL Q4HR PRN for Mild Pain (Pain Scale 1-3), (Reported) Morphine Sulfate* (Morphine Sulfate*), 2 MG IVP Q4HR PRN for For Pain, (Reported ) Nitroglycerin (Nitroglycerin), 0.4 MG SL for Prn Chest Pain, (Reported) Ondansetron* (Zofran*), 4 MG IVP Q6H PRN for Nausea & Vomiting, (Reported) Ondansetron* (Zofran*), 4 MG ORAL Q6H PRN for Nausea & Vomiting, (Reported) Temazepam (Temazepam*), 15 MG ORAL HS PRN for Insomnia, (Reported) Miscellaneous Medications Insulin Aspart (Novolog), 100 UNIT SQ, (Reported) Insuln Asp Prt/Insulin Aspart (Novolog Mix 70-30 Flexpen Syrn), 100 UNIT SQ, ( Reported) Patient History Healthcare decision maker Verenice Del Toro Resuscitation status Advanced Directive on File No Review of Systems Psychiatric: Reports: anxiety, depressed feelings, emotional problems Physical Exam General Appearance: no apparent distress, alert Neurologic: responsive, depressed affect Last 24 Hour Vital Signs Date Time Temp Pulse Resp B/P (MAP) Pulse Ox O2 Delivery O2 Flow Rate FiO2 03/11/18 20:47 78 119/69 03/11/18 20:00 98.4 78 18 119/69 98 98.4 03/11/18 15:50 98.3 76 21 127/69 97 Room Air 98.3 03/11/18 13:45 97 16 Room Air 21 03/11/18 12:00 98.3 76 20 106/64 97 Room Air 98.3 03/11/18 08:43 81 122/61 03/11/18 08:00 98.0 81 19 122/61 99 Room Air 98.0 03/11/18 04:00 97.1 85 19 119/71 92 97.1 03/11/18 00:00 97.8 93 19 120/73 95 97.8 Intake and Output 03/10/18 03/11/18 19:00 07:00 Intake Total 360 ml 580 ml Output Total 300 ml 600 ml Balance 60 ml -20 ml Intake Oral 360 ml 580 ml Output Urine Total 300 ml 600 ml # Bowel Movements 3 2 Height (Feet): 5 Height (Inches): 5.00 Weight (Pounds): 145 Medications Current Medications Medications (Trade) Dose Ordered Sig/Althea Route PRN Reason Start Time Stop Time Status Last Admin Dose Admin Acetaminophen (Tylenol) 650 mg Q4H PRN ORAL T>100.5 03/08/18 11:45 04/07/18 11:44 Albuterol/ Ipratropium (Albuterol/ Ipratropium) 3 ml Q4H PRN HHN Shortness of Breath 03/08/18 11:45 03/13/18 11:44 Atorvastatin Calcium (Lipitor) 20 mg BEDTIME ORAL 03/08/18 21:00 04/07/18 20:59 03/11/18 20:46 Dextrose (Dextrose 50%) 25 ml PRN IV Hypoglycemia 03/08/18 12:00 04/07/18 11:59 Dextrose (Dextrose 50%) 50 ml PRN IV hypoglycemia 03/08/18 12:00 04/07/18 11:59 Heparin Sodium (Porcine) (Heparin 5000 units/ml) 5,000 units EVERY 12 HOURS SUBQ 03/08/18 21:00 04/07/18 20:59 03/11/18 20:49 Insulin Aspart (NovoLOG) BEFORE MEALS AND HS SUBQ 03/08/18 16:30 04/07/18 16:29 03/11/18 20:50 Metoprolol Tartrate (Lopressor) 12.5 mg Q12HR ORAL 03/09/18 21:00 04/07/18 20:59 03/11/18 20:47 Morphine Sulfate (Morphine Sulfate) 2 mg Q4H PRN IVP Moderate Pain (Pain Scale 4-6) 03/08/18 11:45 03/15/18 11:44 Nitroglycerin (Ntg) 0.4 mg Q5MIN X 3 DOSES PRN SL Prn Chest Pain 03/08/18 12:00 04/07/18 11:59 Ondansetron HCl (Zofran) 4 mg Q6H PRN IVP Nausea & Vomiting 03/08/18 11:45 04/07/18 11:44 Polyethylene Glycol (Miralax) 17 gm DAILYPRN PRN ORAL Constipation 03/08/18 11:45 04/07/18 11:44 Quetiapine Fumarate (SEROquel) 12.5 mg Q12HR ORAL 03/08/18 21:00 04/07/18 20:59 03/11/18 20:46 Temazepam (Restoril) 15 mg HSPRN PRN ORAL Insomnia 03/08/18 21:00 03/15/18 20:59 Assessment/Plan Problem List: (1) Acute encephalopathy ICD Codes: G93.40 - Encephalopathy, unspecified SNOMED: 7850011 (2) Diabetes mellitus ICD Codes: E11.9 - Type 2 diabetes mellitus without complications SNOMED: 43814006 Status: stable, progressing Assessment/Plan dementia with behavioral disturbance encephalopathy -seroquel -the pt lacks capacity to make decisions Belia Grant M.D. Mar 11, 2018 21:43
[2018-03-12] VITALS: BP 130/74
[2018-03-12 04:00] VITALS: BP 144/74
[2018-03-12] MEDS: NovoLOG Insulin Flexpen SUBQ SCH ×2 (06:30→12:27)
[2018-03-12 08:00] VITALS: BP 102/62
[2018-03-12] MEDS: Metoprolol Tartrate 12.5mg TAB ORAL SCH (08:54)
[2018-03-12] MEDS: Heparin 5000 units/ml inj SUBQ SCH (09:11)
[2018-03-12] MEDS ORDERED: NS 275ml ONE (09:25)
[2018-03-12 12:00] VITALS: BP 107/52
--- NOTE | 2018-03-12 14:02 | Pulmonology Progress Note ---
Assessment/Plan Problems: (1) Decubital ulcer (2) ESRF (end stage renal failure) (3) Diabetes mellitus (4) S/P AKA (above knee amputation) unilateral Assessment/Plan doing great no new complains stage 3 decubitus ulcer 4cm x 5cm debrided by surgeon wound care Off abx, ID recommendation appreciated, watch WBC and temperature off abx symptomatic treatment will dc to if ok with consultants Subjective ROS Limited/Unobtainable: No Constitutional: Reports: no symptoms HEENT: Repors: no symptoms Respiratory: Reports: no symptoms Allergies: Coded Allergies: No Known Allergies (Unverified , 09/15/16) Objective Last 24 Hour Vital Signs Date Time Temp Pulse Resp B/P (MAP) Pulse Ox O2 Delivery O2 Flow Rate FiO2 03/12/18 12:00 97.7 75 19 107/52 100 Room Air 97.7 03/12/18 08:54 90 122/69 03/12/18 08:07 87 16 Room Air 21 03/12/18 08:00 96.3 70 17 102/62 97 Room Air 96.3 03/12/18 04:00 98.0 83 18 144/74 99 98.0 03/12/18 00:00 98.0 73 18 130/74 94 98.0 03/11/18 20:47 78 119/69 03/11/18 20:00 98.4 78 18 119/69 98 98.4 03/11/18 19:31 94 16 Room Air 21 03/11/18 15:50 98.3 76 21 127/69 97 Room Air 98.3 Intake and Output 03/11/18 03/12/18 19:00 07:00 Intake Total 720 ml 520 ml Output Total 1200 ml Balance 720 ml -680 ml Intake Oral 720 ml 520 ml Output Urine Total 1200 ml # Bowel Movements 3 3 General Appearance: WD/WN HEENT: normocephalic, atraumatic Respiratory/Chest: chest wall non-tender, lungs clear Breasts: no masses Cardiovascular: normal peripheral pulses, regular rhythm Abdomen: normal bowel sounds, soft, non tender Genitourinary: normal external genitalia Extremities: no cyanosis Skin: no rash Current Medications Medications (Trade) Dose Ordered Sig/Althea Route PRN Reason Start Time Stop Time Status Last Admin Dose Admin Acetaminophen (Tylenol) 650 mg Q4H PRN ORAL T>100.5 4/20/18 11:45 04/07/18 11:44 Albuterol/ Ipratropium (Albuterol/ Ipratropium) 3 ml Q4H PRN HHN Shortness of Breath 03/08/18 11:45 03/13/18 11:44 Atorvastatin Calcium (Lipitor) 20 mg BEDTIME ORAL 03/08/18 21:00 04/07/18 20:59 03/11/18 20:46 Dextrose (Dextrose 50%) 25 ml PRN IV Hypoglycemia 03/08/18 12:00 04/07/18 11:59 Dextrose (Dextrose 50%) 50 ml PRN IV hypoglycemia 03/08/18 12:00 04/07/18 11:59 Heparin Sodium (Porcine) (Heparin 5000 units/ml) 5,000 units EVERY 12 HOURS SUBQ 03/08/18 21:00 04/07/18 20:59 03/12/18 09:11 Insulin Aspart (NovoLOG) BEFORE MEALS AND HS SUBQ 03/08/18 16:30 04/07/18 16:29 03/12/18 12:27 Metoprolol Tartrate (Lopressor) 12.5 mg Q12HR ORAL 03/09/18 21:00 04/07/18 20:59 03/11/18 20:47 Morphine Sulfate (Morphine Sulfate) 2 mg Q4H PRN IVP Moderate Pain (Pain Scale 4-6) 03/08/18 11:45 03/15/18 11:44 Nitroglycerin (Ntg) 0.4 mg Q5MIN X 3 DOSES PRN SL Prn Chest Pain 03/08/18 12:00 04/07/18 11:59 Ondansetron HCl (Zofran) 4 mg Q6H PRN IVP Nausea & Vomiting 03/08/18 11:45 04/07/18 11:44 Polyethylene Glycol (Miralax) 17 gm DAILYPRN PRN ORAL Constipation 03/08/18 11:45 04/07/18 11:44 Quetiapine Fumarate (SEROquel) 12.5 mg Q12HR ORAL 03/08/18 21:00 04/07/18 20:59 03/12/18 09:00 Temazepam (Restoril) 15 mg HSPRN PRN ORAL Insomnia 03/08/18 21:00 03/15/18 20:59 Lit Cerna MD Mar 12, 2018 14:02
--- NOTE | 2018-03-12 14:47 | Nephrology Progress Note ---
Assessment/Plan Problem List: (1) ESRF (end stage renal failure) (2) Decubital ulcer Assessment End-stage renal disease, on hemodialysis every Sunday, Sunday, and Sunday. Admitted for worsenning decub, debrided 03/[address] Dugan Other: 1. Type 2 diabetes. 2. Hypertension. 3. Anemia of chronic renal disease 4. Hypercholesterolemia. 5. Peripheral vascular disease. 6. Alzheimer's dementia. 7. ?? LUNG MASS PAST SURGICAL HISTORY: Significant for: 1. Right [id number] amputation. 2. Open reduction internal fixation of the left femoral neck on 07/20/2016. Plan Plan: HD 03/09 NEXT 03/12 Keep BP above 100 syst monitor BS Per orders per consultants dc PLANNING Subjective ROS Limited/Unobtainable: No Constitutional: Reports: malaise Objective Objective Last 24 Hour Vital Signs Date Time Temp Pulse Resp B/P (MAP) Pulse Ox O2 Delivery O2 Flow Rate FiO2 03/12/18 12:00 97.7 75 19 107/52 100 Room Air 97.7 03/12/18 08:54 90 122/69 03/12/18 08:07 87 16 Room Air 21 03/12/18 08:00 96.3 70 17 102/62 97 Room Air 96.3 03/12/18 04:00 98.0 83 18 144/74 99 98.0 03/12/18 00:00 98.0 73 18 130/74 94 98.0 03/11/18 20:47 78 119/69 03/11/18 20:00 98.4 78 18 119/69 98 98.4 03/11/18 19:31 94 16 Room Air 21 03/11/18 15:50 98.3 76 21 127/69 97 Room Air 98.3 Intake and Output 03/11/18 03/12/18 19:00 07:00 Intake Total 720 ml 520 ml Output Total 1200 ml Balance 720 ml -680 ml Intake Oral 720 ml 520 ml Output Urine Total 1200 ml # Bowel Movements 3 3 Current Medications Medications (Trade) Dose Ordered Sig/Althea Route PRN Reason Start Time Stop Time Status Last Admin Dose Admin Acetaminophen (Tylenol) 650 mg Q4H PRN ORAL T>100.5 03/08/18 11:45 04/07/18 11:44 Albuterol/ Ipratropium (Albuterol/ Ipratropium) 3 ml Q4H PRN HHN Shortness of Breath 03/08/18 11:45 03/13/18 11:44 Atorvastatin Calcium (Lipitor) 20 mg BEDTIME ORAL 03/08/18 21:00 04/07/18 20:59 03/11/18 20:46 Dextrose (Dextrose 50%) 25 ml PRN IV Hypoglycemia 03/08/18 12:00 04/07/18 11:59 Dextrose (Dextrose 50%) 50 ml PRN IV hypoglycemia 03/08/18 12:00 04/07/18 11:59 Heparin Sodium (Porcine) (Heparin 5000 units/ml) 5,000 units EVERY 12 HOURS SUBQ 03/08/18 21:00 04/07/18 20:59 03/12/18 09:11 Insulin Aspart (NovoLOG) BEFORE MEALS AND HS SUBQ 03/08/18 16:30 04/07/18 16:29 03/12/18 12:27 Metoprolol Tartrate (Lopressor) 12.5 mg Q12HR ORAL 03/09/18 21:00 04/07/18 20:59 03/11/18 20:47 Morphine Sulfate (Morphine Sulfate) 2 mg Q4H PRN IVP Moderate Pain (Pain Scale 4-6) 03/08/18 11:45 03/15/18 11:44 Nitroglycerin (Ntg) 0.4 mg Q5MIN X 3 DOSES PRN SL Prn Chest Pain 03/08/18 12:00 04/07/18 11:59 Ondansetron HCl (Zofran) 4 mg Q6H PRN IVP Nausea & Vomiting 03/08/18 11:45 04/07/18 11:44 Polyethylene Glycol (Miralax) 17 gm DAILYPRN PRN ORAL Constipation 03/08/18 11:45 04/07/18 11:44 Quetiapine Fumarate (SEROquel) 12.5 mg Q12HR ORAL 03/08/18 21:00 04/07/18 20:59 03/12/18 09:00 Temazepam (Restoril) 15 mg HSPRN PRN ORAL Insomnia 03/08/18 21:00 03/15/18 20:59 Height (Feet): 5 Height (Inches): 5.00 Weight (Pounds): 145 General Appearance: no apparent distress Cardiovascular: normal rate Respiratory/Chest: decreased breath sounds Abdomen: soft Objective no other changes TAQUERIA JACOBSON Mar 12, 2018 14:47
[2018-03-12 15:47] VITALS: BP 143/80
--- NOTE | 2018-03-12 16:18 | Infectious Diseases Prog Note ---
Assessment/Plan Assessment/Plan ASSESSMENT: The patient is a 67-year-old female with worsening of sacral decubitus, Wnd Cx : PsA (rose S), E.coli (R amp, otherwise S) , MRSA (S Vanco, bactrim, tetracycline); Colonizers status post debridement on 03/08/2018, no evidence of infection. No leukocytosis. Afebrile. Hx of C. difficile. History of UTI. History of left heel decubitus. History of GI bleed. History of vaginal bleed. History of thickened endometrium and left adnexal mass. History of end-stage renal disease, on hemodialysis, status post AV graft. \History of dementia. History of bilateral lower extremity DVT. Peripheral vascular disease. Right xiggo-zmy-fjue amputation. PLAN: monitor the patient off of antibiotics. Monitor CBC. Monitor BMP. Monitor the patient's clinical course. Monitor chest x-ray. surgical fup wound care Subjective Allergies: Coded Allergies: No Known Allergies (Unverified , 09/15/16) Subjective afebrile no leukocytosis offa bx Objective Vital Signs Last 24 Hour Vital Signs Date Time Temp Pulse Resp B/P (MAP) Pulse Ox O2 Delivery O2 Flow Rate FiO2 03/12/18 16:02 Room Air 21 03/12/18 15:47 98.3 80 20 143/80 96 Room Air 98.3 03/12/18 12:30 Room Air 21 03/12/18 12:00 97.7 75 19 107/52 100 Room Air 97.7 03/12/18 08:54 90 122/69 03/12/18 08:07 87 16 Room Air 21 03/12/18 08:00 96.3 70 17 102/62 97 Room Air 96.3 03/12/18 04:00 98.0 83 18 144/74 99 98.0 03/12/18 00:00 98.0 73 18 130/74 94 98.0 03/11/18 20:47 78 119/69 03/11/18 20:00 98.4 78 18 119/69 98 98.4 03/11/18 19:31 94 16 Room Air 21 Height (Feet): 5 Height (Inches): 5.00 Weight (Pounds): 145 Objective HEENT: mucous membranes moist Respiratory/Chest: no respiratory distress Cardiovascular: regularly irregular Abdomen: no organomegaly Current Medications Medications (Trade) Dose Ordered Sig/Althea Route PRN Reason Start Time Stop Time Status Last Admin Dose Admin Acetaminophen (Tylenol) 650 mg Q4H PRN ORAL T>100.5 03/08/18 11:45 04/07/18 11:44 Albuterol/ Ipratropium (Albuterol/ Ipratropium) 3 ml Q4H PRN HHN Shortness of Breath 03/08/18 11:45 03/13/18 11:44 Atorvastatin Calcium (Lipitor) 20 mg BEDTIME ORAL 03/08/18 21:00 04/07/18 20:59 03/11/18 20:46 Dextrose (Dextrose 50%) 25 ml PRN IV Hypoglycemia 03/08/18 12:00 04/07/18 11:59 Dextrose (Dextrose 50%) 50 ml PRN IV hypoglycemia 03/08/18 12:00 04/07/18 11:59 Heparin Sodium (Porcine) (Heparin 5000 units/ml) 5,000 units EVERY 12 HOURS SUBQ 03/08/18 21:00 04/07/18 20:59 03/12/18 09:11 Insulin Aspart (NovoLOG) BEFORE MEALS AND HS SUBQ 03/08/18 16:30 04/07/18 16:29 03/12/18 12:27 Metoprolol Tartrate (Lopressor) 12.5 mg Q12HR ORAL 03/09/18 21:00 04/07/18 20:59 03/11/18 20:47 Morphine Sulfate (Morphine Sulfate) 2 mg Q4H PRN IVP Moderate Pain (Pain Scale 4-6) 03/08/18 11:45 03/15/18 11:44 Nitroglycerin (Ntg) 0.4 mg Q5MIN X 3 DOSES PRN SL Prn Chest Pain 03/08/18 12:00 04/07/18 11:59 Ondansetron HCl (Zofran) 4 mg Q6H PRN IVP Nausea & Vomiting 03/08/18 11:45 04/07/18 11:44 Polyethylene Glycol (Miralax) 17 gm DAILYPRN PRN ORAL Constipation 03/08/18 11:45 04/07/18 11:44 Quetiapine Fumarate (SEROquel) 12.5 mg Q12HR ORAL 03/08/18 21:00 04/07/18 20:59 03/12/18 09:00 Temazepam (Restoril) 15 mg HSPRN PRN ORAL Insomnia 03/08/18 21:00 03/15/18 20:59 Daisy Arce M.D. Mar 12, 2018 16:18
--- NOTE | 2018-03-12 23:46 | General Progress Note ---
Assessment/Plan Problem List: (1) Acute encephalopathy ICD Codes: G93.40 - Encephalopathy, unspecified SNOMED: 0829057 (2) Diabetes mellitus ICD Codes: E11.9 - Type 2 diabetes mellitus without complications SNOMED: 98608477 Assessment/Plan dementia with behavioral disturbance encephalopathy -seroquel -the pt lacks capacity to make decisions Subjective Date patient seen: Mar 12, 2018 Neurologic/Psychiatric: Reports: anxiety, depressed, emotional problems Allergies: Coded Allergies: No Known Allergies (Unverified , 09/15/16) Subjective the pt has waxing and waning of consciousness. confused Objective Last 24 Hour Vital Signs Date Time Temp Pulse Resp B/P (MAP) Pulse Ox O2 Delivery O2 Flow Rate FiO2 03/12/18 16:02 Room Air 21 03/12/18 15:47 98.3 80 20 143/80 96 Room Air 98.3 03/12/18 12:30 Room Air 21 03/12/18 12:00 97.7 75 19 107/52 100 Room Air 97.7 03/12/18 08:54 90 122/69 03/12/18 08:07 87 16 Room Air 21 03/12/18 08:00 96.3 70 17 102/62 97 Room Air 96.3 03/12/18 04:00 98.0 83 18 144/74 99 98.0 03/12/18 00:00 98.0 73 18 130/74 94 98.0 Intake and Output 03/11/18 03/12/18 19:00 07:00 Intake Total 720 ml 520 ml Output Total 1200 ml Balance 720 ml -680 ml Intake Oral 720 ml 520 ml Output Urine Total 1200 ml # Bowel Movements 3 3 Height (Feet): 5 Height (Inches): 5.00 Weight (Pounds): 145 Belia Grant M.D. Mar 12, 2018 23:46
--- NOTE | 2018-03-14 13:59 | Discharge Summary ---
Discharge Summary Discharge Summary Discharge Summary DATE OF ADMISSION: 03/08/2018 DATE OF DISCHARGE: 03/12/2018 CONSULTANTS: Dr. Marques Dugan BRIEF HOSPITAL COURSE: Patient is a 67-year-old female with history of end-stage renal failure, diabetes mellitus, right above the knee amputation, senior care resident, was brought in for worsening decubitus ulcer. Patient is nonverbal and cannot communicate appropriately. She has medical history significant for atherosclerosis, hypertension, diabetes type 2, hyperlipidemia, CVA, dementia, Alzheimer's disease, dysphagia and weakness. On evaluation at ED, there was no leukocytosis however there was concern for deep or underlying abscess on the decubitus ulcer. Surgical evaluation was done patient underwent debridement of decubitus ulcer. She has history of end-stage renal disease on hemodialysis Sunday, Sunday, and Sunday. She was given inpatient hemodialysis. Wound culture with growth of Pseudomonas, Escherichia coli, MRSA, which are possibly colonizers. She was observed off antibiotic treatment. She had dementia with behavioral disturbance and encephalopathy. Patient lacks capacity to make decisions. She was given Seroquel twice a day. She was eventually discharged back to his knee. Patient was discharged back to senior care FINAL DIAGNOSES: Decubitus sacral ulcer stage III, present on admission, status post debridement. End-stage renal failure on hemodialysis Diabetes mellitus Above-knee amputation Dementia with behavioral disturbance Encephalopathy Anemia of chronic renal disease Hypertension Hypercholesterolemia Peripheral vascular disease DISPOSITION: Patient was discharged back to [facility]. DISCHARGE MEDICATIONS: Refer to Discharge Medication List. I have been assigned to dictate discharge summary on this account, and I was not involved in the patient's management. Melissa Rogers NP Mar 14, 2018 13:59
--- NOTE | 2018-03-17 17:39 | Cardiology Report ---
APPROVED REPORT EKG Measurement Heart [id number] Normal sinus rhythm Possible Left atrial enlargement Nonspecific intraventricular conduction delay Prolonged QT Abnormal ECG
== END 2018-03-12 16:30 | DRG 592 ==
LOC: EDBD 08:23 → EDBEDREQ 08:31 → EMR 08:55 → 4E 09:00 → EDBEDREQ 09:23
PROC: 0HD6XZZ Extraction of Back Skin, External Approach (ICD-10-PCS; principal; 2018-03-08)
PROC: 5A1D70Z Performance of Urinary Filtration, Intermittent, Less than 6 Hours Per Day (ICD-10-PCS; 2018-03-09)
DX: L89.153 Pressure ulcer of sacral region, stage 3 (principal); N18.6 End stage renal disease; G93.40 Encephalopathy, unspecified; I12.0 Hypertensive chronic kidney disease with stage 5 chronic kidney disease or end stage renal disease; F02.81 Dementia in other diseases classified elsewhere, unspecified severity, with behavioral disturbance; Z99.2 Dependence on renal dialysis; G30.9 Alzheimer's disease, unspecified; E78.00 Pure hypercholesterolemia, unspecified; E78.5 Hyperlipidemia, unspecified; D63.1 Anemia in chronic kidney disease; Z89.611 Acquired absence of right leg above knee; E11.22 Type 2 diabetes mellitus with diabetic chronic kidney disease; E11.51 Type 2 diabetes mellitus with diabetic peripheral angiopathy without gangrene; Z22.322 Carrier or suspected carrier of Methicillin resistant Staphylococcus aureus; Z86.711 Personal history of pulmonary embolism; Z79.82 Long term (current) use of aspirin; Z86.73 Personal history of transient ischemic attack (TIA), and cerebral infarction without residual deficits
CPT/HCPCS: 36415; 80053; 80061; 80202; 82550; 82553; 82607; 82728; 82746; 82962; 82977; 83036; 83605; 83735; 83880; 84100; 84443; 84484; 84550; 85025; 86140; 87040; 87070; 87081; 87181; 87205; 93005; 93970; 94664; 99285; J1815

== ENCOUNTER 2018-07-11 13:09 | Inpatient (IN) | payer MEDICARE, MEDICAID ==
[~2018-07-11] VITALS: Ht 162.6 cm; Wt 79.4 kg
[~2018-07-11 13:09] MED LIST changes: +ELIQUIS5 MG PO; +LANTUS SOL100 UNIT/1 SUBQ
[2018-07-11 13:10] VITALS: BP 103/58
[2018-07-11 14:18] LABS: BASOPHILS % (AUTO) 1.1 % (0.0-2.0); EOSINOPHILS % (AUTO) 1.6 % (0.0-3.0); HEMATOCRIT 32.9 % (37.0-47.0); HEMOGLOBIN 10.3 G/DL (12.0-16.0); LYMPHOCYTES % (AUTO) 14.3 % (20.0-45.0); MEAN CORPUSCULAR VOLUME 87 FL (80-99); MONOCYTES % (AUTO) 7.1 % (1.0-10.0); NEUTROPHILS % (AUTO) 75.8 % (45.0-75.0); PLATELET COUNT 415 K/UL (150-450); RED BLOOD COUNT 3.79 M/UL (4.20-5.40); RED CELL DISTRIBUTION WIDTH 16.7 % (11.6-14.8); WHITE BLOOD COUNT 10.4 K/UL (4.8-10.8)
[2018-07-11 14:28] LABS: ANION GAP 7 mmol/L (5-15); BLOOD UREA NITROGEN 37 mg/dL (7-18); CALCIUM 9.4 MG/DL (8.5-10.1); CARBON DIOXIDE 32 MMOL/L (21-32); CHLORIDE 102 MMOL/L (98-107); CREATININE 3.5 MG/DL (0.55-1.30); POTASSIUM 3.7 MMOL/L (3.5-5.1); SODIUM 141 MMOL/L (136-145)
--- NOTE | 2018-07-11 14:41 | History and Physical ---
History of Present Illness General Date patient seen: Jul 12, 2018 Reason for Hospitalization: Abnormal Labs Present Illness HPI 68-year-old female with hx of end stage renal failure on HD, AKA on left, [facility] patient, presented to ED for evaluation of hemorrhage from AV fistula after dialysis yesterday. Per nursing staff patient lost a significant amount of blood. Upon arrival patient showing no signs of distress. Per nursing staff patient's BP was low. Patient states she feels okay. Is coughing a lot. Productive with yellowish phlegm. Denies fevers or chills. Denies chest pain or shortness of breath. No other aggravating relieving factors. Denies any other associated symptoms Allergies: Coded Allergies: No Known Allergies (Unverified , 09/15/16) Medication History Scheduled Amino Acids/Protein Hydrolys (Pro-Stat Liquid), 45 ML ORAL TWICE A DAY, ( Reported) Apixaban (Eliquis), 10 MG PO BID Apixaban (Eliquis), 5 MG PO BID, (Reported) Aspirin* (Aspirin*), 81 MG ORAL DAILY, (Reported) Atorvastatin Calcium* (Atorvastatin Calcium*), 20 MG ORAL BEDTIME, (Reported) Collagenase Clostridium Hist. (Santyl), 1 APPLIC TP DAILY, (Reported) Docusate Sodium* (Docusate Sodium*), 100 MG ORAL THREE TIMES A DAY, (Reported) Esomeprazole Magnesium (Nexium), 40 MG ORAL DAILY, (Reported) Ferrous Sulfate* (Ferrous Sulfate*), 325 MG ORAL DAILY, (Reported) Hydralazine Hcl* (Hydralazine Hcl*), 25 MG ORAL EVERY 8 HOURS, (Reported) Ibuprofen* (Motrin*), 400 MG ORAL Q6H, (Reported) Insulin Glargine (Lantus), 20 SUBQ BEDTIME, (Reported) Lorazepam* (Lorazepam*), 2 MG ORAL DAILY, (Reported) Metoclopramide Hcl* (Metoclopramide Hcl*), 5 MG ORAL EVERY 6 HOURS, (Reported) Metoprolol Tartrate* (Metoprolol Tartrate*), 50 MG ORAL DAILY, (Reported) Pantoprazole* (Protonix*), 40 MG ORAL DAILY, (Reported) Polyethylene Glycol 3350* (Miralax*), 17 GM ORAL BEDTIME, (Reported) Quetiapine Fumarate* (Seroquel*), 12.5 MG ORAL BID, (Reported) Sucralfate* (Carafate*), 1 GM ORAL BEDTIME, (Reported) [Nephro Aid], 1 TAB PO DAILY, (Reported) Scheduled PRN Acetaminophen* (Acetaminophen 325MG Tablet*), 650 MG ORAL Q4HR PRN for Mild Pain (Pain Scale 1-3), (Reported) Morphine Sulfate* (Morphine Sulfate*), 2 MG IVP Q4HR PRN for For Pain, (Reported ) Nitroglycerin (Nitroglycerin), 0.4 MG SL for Prn Chest Pain, (Reported) Ondansetron* (Zofran*), 4 MG IVP Q6H PRN for Nausea & Vomiting, (Reported) Ondansetron* (Zofran*), 4 MG ORAL Q6H PRN for Nausea & Vomiting, (Reported) Temazepam (Temazepam*), 15 MG ORAL HS PRN for Insomnia, (Reported) Miscellaneous Medications Insulin Aspart (Novolog), 100 UNIT SQ, (Reported) Insuln Asp Prt/Insulin Aspart (Novolog Mix 70-30 Flexpen Syrn), 100 UNIT SQ, ( Reported) Patient History Healthcare decision maker Resuscitation status Advanced Directive on File Past Medical/Surgical History Past Medical/Surgical History: (1) Diabetes mellitus (2) Decubital ulcer (3) S/P AKA (above knee amputation) unilateral Review of Systems All Other Systems: negative except mentioned in HPI Physical Exam General Appearance: WD/WN Lines, tubes and drains: peripheral HEENT: normocephalic, atraumatic Neck: non-tender, normal alignment Respiratory/Chest: chest wall non-tender, lungs clear Cardiovascular/Chest: normal peripheral pulses Abdomen: normal bowel sounds, non tender Extremities: normal range of motion, non-tender Skin Exam: normal pigmentation Neurologic: chain tender II-XII grossly normal Last 24 Hour Vital Signs Date Time Temp Pulse Resp B/P (MAP) Pulse Ox O2 Delivery O2 Flow Rate FiO2 07/11/18 13:10 98.2 102 20 103/58 100 Room Air 98.2 07/11/18 12:58 98.5 103 18 119/68 98 Room Air 98.4 Laboratory Tests Test 07/11/18 13:40 White Blood Count 10.4 K/UL (4.8-10.8) Red Blood Count 3.79 M/UL (4.20-5.40) L Hemoglobin 10.3 G/DL (12.0-16.0) L Hematocrit 32.9 % (37.0-47.0) L Mean Corpuscular Volume 87 FL (80-99) Mean Corpuscular Hemoglobin 27.2 PG (27.0-31.0) Mean Corpuscular Hemoglobin Concent 31.2 G/DL (32.0-36.0) L Red Cell Distribution Width 16.7 % (11.6-14.8) H Platelet Count 415 K/UL (150-450) Mean Platelet Volume 8.0 FL (6.5-10.1) Neutrophils (%) (Auto) 75.8 % (45.0-75.0) H Lymphocytes (%) (Auto) 14.3 % (20.0-45.0) L Monocytes (%) (Auto) 7.1 % (1.0-10.0) Eosinophils (%) (Auto) 1.6 % (0.0-3.0) Basophils (%) (Auto) 1.1 % (0.0-2.0) Prothrombin Time 10.7 SEC (9.30-11.50) Prothromb Time International Ratio 1.0 (0.9-1.1) Activated Partial Thromboplast Time 29 SEC (23-33) Sodium Level 141 MMOL/L (136-145) Potassium Level 3.7 MMOL/L (3.5-5.1) Chloride Level 102 MMOL/L (98-107) Carbon Dioxide Level 32 MMOL/L (21-32) Anion Gap 7 mmol/L (5-15) Blood Urea Nitrogen 37 mg/dL (7-18) H Creatinine 3.5 MG/DL (0.55-1.30) H Estimat Glomerular Filtration Rate 15.9 mL/min (>60) Glucose Level 157 MG/DL (74-106) H Calcium Level 9.4 MG/DL (8.5-10.1) Total Bilirubin Pending Aspartate Amino Transf (AST/SGOT) Pending Alanine Aminotransferase (ALT/SGPT) Pending Alkaline Phosphatase Pending Total Creatine Kinase Pending Creatine Kinase MB Pending Troponin I 0.012 ng/mL (0.000-0.056) Pro-B-Type Natriuretic Peptide Pending Total Protein Pending Albumin Pending Globulin Pending Height (Feet): 5 Height (Inches): 4.00 Weight (Pounds): 175 Medications Current Medications Medications (Trade) Dose Ordered Sig/Althea Route PRN Reason Start Time Stop Time Status Last Admin Dose Admin Acetaminophen (Tylenol) 650 mg Q4H PRN ORAL fever 07/11/18 14:45 08/10/18 14:44 UNV Acetaminophen (Tylenol) 650 mg Q4HR PRN ORAL Mild Pain (Pain Scale 1-3) 07/11/18 14:45 08/10/18 14:44 UNV Al Hydroxide/Mg Hydroxide (Mylanta II) 30 ml Q6H PRN ORAL dyspepsia 07/11/18 14:45 08/10/18 14:44 UNV Atorvastatin Calcium (Lipitor) 20 mg BEDTIME ORAL 07/11/18 21:00 08/10/18 20:59 UNV Dextrose (Dextrose 50%) STAT PRN IV Hypoglycemia 07/11/18 14:45 08/10/18 14:44 UNV Dextrose (Dextrose 50%) STAT PRN IV Hypoglycemia 07/11/18 14:45 08/10/18 14:44 UNV Hydralazine HCl (Apresoline) 25 mg EVERY 8 HOURS ORAL 07/11/18 22:00 08/10/18 21:59 UNV Insulin Aspart (NovoLOG) BEFORE MEALS AND HS SUBQ 07/11/18 16:30 08/10/18 16:29 UNV Lorazepam (Ativan 2mg/ml 1ml) 0.5 mg Q4H PRN IV For Anxiety 07/11/18 14:45 07/18/18 14:44 UNV Morphine Sulfate (Morphine Sulfate) 1 mg EVERY 4 HOURS PRN IVP For Pain 07/11/18 14:45 07/18/18 14:44 UNV Ondansetron HCl (Zofran) 4 mg Q6H PRN IVP Nausea & Vomiting 07/11/18 14:45 08/10/18 14:44 UNV Polyethylene Glycol (Miralax) 17 gm HSPRN PRN ORAL Constipation 07/11/18 14:45 08/10/18 14:44 UNV Quetiapine Fumarate (SEROquel) 12.5 mg BID ORAL 8/23/18 18:00 08/10/18 17:59 UNV Sucralfate (Carafate) 1 gm BEDTIME ORAL 07/11/18 21:00 08/10/18 20:59 UNV Temazepam (Restoril) 15 mg NEEDED PRN ORAL Insomnia 07/11/18 14:45 07/18/18 14:44 UNV Zolpidem Tartrate (Ambien) 5 mg HSPRN PRN ORAL Insomnia 07/11/18 14:45 07/18/18 14:44 UNV Assessment/Plan Problem List: (1) Hemorrhagic shock SNOMED: 283628 (2) Bronchitis ICD Codes: J40 - Bronchitis, not specified as acute or chronic SNOMED: 34823123 (3) S/P AKA (above knee amputation) unilateral ICD Codes: Z89.619 - Acquired absence of unspecified leg above knee SNOMED: 60631125, 25943768, 696107974 (4) Diabetes mellitus ICD Codes: E11.9 - Type 2 diabetes mellitus without complications SNOMED: 25143703 (5) ESRF (end stage renal failure) ICD Codes: N18.6 - End stage renal disease SNOMED: 45628222 Assessment/Plan respiratory treatment check H/h prbc prn check sputum for c/s nephrology to see Lit Cerna MD Jul 11, 2018 14:41
[2018-07-11 14:42] LABS: ALANINE AMINOTRANSFERASE 12 U/L (12-78); ALBUMIN 2.8 G/DL (3.4-5.0); ALBUMIN/GLOBULIN RATIO 0.8 (1.0-2.7); ALKALINE PHOSPHATASE 71 U/L (46-116); ASPARTATE AMINO TRANSFERASE 11 U/L (15-37); BILIRUBIN,TOTAL 0.2 MG/DL (0.2-1.0); CKMB < 0.5 NG/ML (0.0-3.6); CREATINE KINASE 22 U/L (26-308)
[2018-07-11] MEDS ORDERED: Mylanta II UD 30ml ORAL PRN (14:45)
[2018-07-11] MEDS ORDERED: Zolpidem 5mg tab ORAL PRN (14:45)
[2018-07-11] MEDS ORDERED: LORazepam Inj 2mg/ml 1ml IV PRN ×2 (14:45→17:00)
[2018-07-11] MEDS ORDERED: Miralax 17gm pkt ORAL PRN (14:45)
[2018-07-11] MEDS ORDERED: Morphine Sulfate 2mg/ml Inj(IV/IM USE ONLY) IVP PRN (14:45)
[2018-07-11] MEDS ORDERED: HydrALAZINE 25mg tab ORAL SCH (14:47)
[2018-07-11 15:01] VITALS: BP 117/55
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
--- NOTE | 2018-07-11 15:49 | Consultation ---
Consult Note Consult Note asked to eval for dialysi management evelina pulled out her dialysis needle in dialysis unit and per HD RN lost about 200 cc blood Patient has periods of agitation being admitted for weakness, Encephalopathy , Anemia and Tachycardia conditions: 1. Type 2 diabetes. 2. Hypertension. 3. Anemia of chronic renal disease 4. Hypercholesterolemia. 5. Peripheral vascular disease. 6. Alzheimer's dementia. 7. ?? LUNG Pathology PAST SURGICAL HISTORY: Significant for: 1. Right povbf-ozp-[id number] amputation. 2. Open reduction internal fixation of the left femoral neck on 07/20/2016. examined- data reviewed Assessment/Plan Encephalopathy- acute blood loss ESRD Low BP despite h/o HTN plan: Slow hydrate- monitor H&H Keep BP above 100 syst seroquel for psychosis Marques Motta MD Jul 11, 2018 15:49
--- NOTE | 2018-07-11 16:07 | Emergency Room Report ---
History of Present Illness General Chief Complaint: Abnormal Labs Source: Patient Present Illness HPI 68-year-old female presents ED for evaluation. Referred from senior care facility for hemorrhage from AV fistula after dialysis yesterday. Per nursing staff patient lost a significant amount of blood. Upon arrival patient showing no signs of distress. Per nursing staff patient's BP was low. Patient states she feels okay. Is coughing a lot. Productive with yellowish phlegm. Denies fevers or chills. Denies chest pain or shortness of breath. No other aggravating relieving factors. Denies any other associated symptoms Allergies: Coded Allergies: No Known Allergies (Unverified , 09/15/16) Patient History Past Medical History: DM, HTN, GERD, CVA/TIA, dementia, renal disease, dialysis Past Surgical History: none Pertinent Family History: none Social History: Denies: smoking, alcohol use, drug use Now: No Immunizations: UTD Reviewed Nursing Documentation: PMH: Agreed; PSxH: Agreed Nursing Documentation-PMH Hx Cardiac Problems: Yes - atherosclerosis of [place] coronary artery p angina pectoris Hx Hypertension: Yes Hx Diabetes: Yes Hx Cancer: No Hx Gastrointestinal Problems: Yes - hyperlipidemia, GERD Hx Dialysis: Yes - ESRD, right BKA Hx Neurological Problems: Yes - Dementia Hx Cerebrovascular Accident: Yes Hx Dementia: Yes Hx Alzheimer's Disease: Yes Hx Paralysis: Yes Hx Dysphasia: Yes Hx Weakness: Yes Review of Systems All Other Systems: negative except mentioned in HPI Physical Exam Vital Signs Date Time Temp Pulse Resp B/P (MAP) Pulse Ox O2 Delivery O2 Flow Rate FiO2 07/11/18 12:58 98.5 103 18 119/68 98 Room Air 98.4 Sp02 EP Interpretation: reviewed, normal General Appearance: no apparent distress, alert, GCS 15, non-toxic Head: normocephalic, atraumatic Eyes: bilateral eye normal inspection, bilateral eye PERRL ENT: hearing grossly normal, normal pharynx, no angioedema, normal voice Neck: full range of motion, supple/symm/no masses Respiratory: chest non-tender, normal breath sounds, crackles, speaking full sentences Cardiovascular #1: regular rate, rhythm, no edema Cardiovascular #2: 2+ carotid (R), 2+ carotid (L), 2+ radial (R), 2+ radial (L) , 2+ dorsalis pedis (R), 2+ dorsalis pedis (L) Gastrointestinal: normal bowel sounds, non tender, soft, non-distended, no guarding, no rebound Rectal: deferred Genitourinary: normal inspection, no CVA tenderness Musculoskeletal: back normal, non-tender Neurologic: alert, oriented x3, responsive, motor strength/tone normal, sensory intact, speech normal Psychiatric: judgement/insight normal, memory normal, mood/affect normal, no suicidal/homicidal ideation Reflexes: 3+ bicep (R), 3+ bicep (L), 3+ tricep (R), 3+ tricep (L), 3+ knee (R) , 3+ knee (L) Skin: normal color, no rash, warm/dry, well hydrated Lymphatic: no adenopathy Medical Decision Making Diagnostic Impression: Primary Impression: Anemia Qualified Codes: D64.9 - Anemia, unspecified Additional Impressions: ESRF (end stage renal failure) Pneumonia Qualified Codes: J18.1 - Lobar pneumonia, unspecified organism ER Course Hospital Course 68 yo F presents to ED c/o cough, referred for hemorrhage after dialysis Differential diagnoses include: Pneumonia, CHF exacerbation, pneumothorax, fluid overload Clinical course Patient placed on stretcher. On equipment monitor phototypesetting with stable vitals. After initial history and physical, I ordered labs, EKG, chest x-ray, blood cultures Labs - no leukocytosis, hemoglobin/hematocrit 10.3/32.9, Cr 3.5 trop 0.012 CXR - ?CHF vs PNA EKG - NSR, no acute ischemic changes interpreted by me abx given. no emergent indication for transfusion Case discussed with Dr. Cerna and Dr Martel and he agreed to the patient to his service for further care and support I feel this is a highly complex case requiring extensive working including EKG/ Rhythm strip, Xray/CT/US, Blood/urine lab work, repeat exams while in ED, and administration of strong opiates/narcotics for pain control, admission to hospital or close patient follow up. Diagnosis - anemia, ESRF, pneumonia Patient admitted to floor in serious condition Labs Test 07/11/18 13:40 07/11/18 15:02 White Blood Count 10.4 K/UL (4.8-10.8) Red Blood Count 3.79 M/UL (4.20-5.40) Hemoglobin 10.3 G/DL (12.0-16.0) Hematocrit 32.9 % (37.0-47.0) Mean Corpuscular Volume 87 FL (80-99) Mean Corpuscular Hemoglobin 27.2 PG (27.0-31.0) Mean Corpuscular Hemoglobin Concent 31.2 G/DL (32.0-36.0) Red Cell Distribution Width 16.7 % (11.6-14.8) Platelet Count 415 K/UL (150-450) Mean Platelet Volume 8.0 FL (6.5-10.1) Neutrophils (%) (Auto) 75.8 % (45.0-75.0) Lymphocytes (%) (Auto) 14.3 % (20.0-45.0) Monocytes (%) (Auto) 7.1 % (1.0-10.0) Eosinophils (%) (Auto) 1.6 % (0.0-3.0) Basophils (%) (Auto) 1.1 % (0.0-2.0) Prothrombin Time 10.7 SEC (9.30-11.50) Prothromb Time International Ratio 1.0 (0.9-1.1) Activated Partial Thromboplast Time 29 SEC (23-33) Sodium Level 141 MMOL/L (136-145) Potassium Level 3.7 MMOL/L (3.5-5.1) Chloride Level 102 MMOL/L (98-107) Carbon Dioxide Level 32 MMOL/L (21-32) Anion Gap 7 mmol/L (5-15) Blood Urea Nitrogen 37 mg/dL (7-18) Creatinine 3.5 MG/DL (0.55-1.30) Estimat Glomerular Filtration Rate 15.9 mL/min (>60) Glucose Level 157 MG/DL (74-106) Calcium Level 9.4 MG/DL (8.5-10.1) Total Bilirubin 0.2 MG/DL (0.2-1.0) Aspartate Amino Transf (AST/SGOT) 11 U/L (15-37) Alanine Aminotransferase (ALT/SGPT) 12 U/L (12-78) Alkaline Phosphatase 71 U/L (46-116) Total Creatine Kinase 22 U/L (26-308) Creatine Kinase MB < 0.5 NG/ML (0.0-3.6) Creatine Kinase MB Relative Index 2.2 Troponin I 0.012 ng/mL (0.000-0.056) Pro-B-Type Natriuretic Peptide 8223 pg/mL (0-125) Total Protein 6.1 G/DL (6.4-8.2) Albumin 2.8 G/DL (3.4-5.0) Globulin 3.3 g/dL Albumin/Globulin Ratio 0.8 (1.0-2.7) Lactic Acid Level 1.20 mmol/L (0.4-2.0) EKG Diagnostic Results Rate: normal Rhythm: NSR, other - prolonged QT ST Segments: no acute changes ASA given to the pt in ED: No Rhythm Strip Diag. Results EP Interpretation: yes Rhythm: NSR, no PVC's, no ectopy Chest X-Ray Diagnostic Results Chest X-Ray Diagnostic Results : Chest X-Ray Ordered: Yes # of Views/Limited/Complete: 1 View Indication: Shortness of Breath EP Interpretation: Yes Interpretation: no pneumothorax, other - ? pulmonary congestion vs infiltrate Impression: Other - chf vs pna Electronically Signed by: Electronically signed by Pranav Diamond MD Last Vital Signs Date Time Temp Pulse Resp B/P (MAP) Pulse Ox O2 Delivery O2 Flow Rate FiO2 07/11/18 15:01 98.2 95 20 117/55 100 Room Air 98.2 Status: improved Disposition: ADMITTED INPATIENT Condition: Serious Referrals: Lit Cerna MD (PCP) Pranav Diamond MD Jul 11, 2018 16:07
[2018-07-11] MEDS ORDERED: NovoLOG Insulin Flexpen SUBQ SCH (16:30)
[2018-07-11 16:47] VITALS: BP 112/64
[2018-07-11 17:36] VITALS: BP 130/80
[2018-07-11 20:00] VITALS: BP 124/67
[2018-07-11] MEDS ORDERED: Sucralfate 1gm tab ORAL SCH (21:00)
[2018-07-11] MEDS ORDERED: Atorvastatin 20mg tab ORAL SCH ×2 (21:00)
[2018-07-11] MEDS: NovoLOG Insulin Flexpen SUBQ SCH (21:17)
[2018-07-11] MEDS: Morphine Sulfate 2mg/ml Inj(IV/IM USE ONLY) IVP PRN (21:19)
[2018-07-11] MEDS: HydrALAZINE 25mg tab ORAL SCH (23:41)
[2018-07-12] VITALS: BP 117/67
[2018-07-12] MEDS: Morphine Sulfate 2mg/ml Inj(IV/IM USE ONLY) IVP PRN (03:56)
[2018-07-12 04:00] VITALS: BP 131/58
[2018-07-12 06:08] LABS: BASOPHILS % (AUTO) 0.6 % (0.0-2.0); EOSINOPHILS % (AUTO) 7.3 % (0.0-3.0); HEMATOCRIT 32.4 % (37.0-47.0); LYMPHOCYTES % (AUTO) 23.1 % (20.0-45.0); MEAN CORPUSCULAR VOLUME 87 FL (80-99); PLATELET COUNT 399 K/UL (150-450); RED BLOOD COUNT 3.71 M/UL (4.20-5.40); RED CELL DISTRIBUTION WIDTH 16.8 % (11.6-14.8); WHITE BLOOD COUNT 8.1 K/UL (4.8-10.8)
[2018-07-12] MEDS: NovoLOG Insulin Flexpen SUBQ SCH ×4 (06:18→21:39)
[2018-07-12 06:43] LABS: AMMONIA 18 umol/L (11-32)
[2018-07-12 06:47] LABS: ALANINE AMINOTRANSFERASE 14 U/L (12-78); ALBUMIN 2.8 G/DL (3.4-5.0); ALBUMIN/GLOBULIN RATIO 0.8 (1.0-2.7); ALKALINE PHOSPHATASE 73 U/L (46-116); ANION GAP 9 mmol/L (5-15); ASPARTATE AMINO TRANSFERASE 12 U/L (15-37); BILIRUBIN,TOTAL 0.2 MG/DL (0.2-1.0); BLOOD UREA NITROGEN 46 mg/dL (7-18); CALCIUM 9.2 MG/DL (8.5-10.1); CARBON DIOXIDE 30 MMOL/L (21-32); CHLORIDE 103 MMOL/L (98-107); CHOLESTEROL 152 MG/DL (< 200); CREATININE 4.3 MG/DL (0.55-1.30); FERRITIN 211 NG/ML (8-388); GAMMA GLUTAMYL TRANSPEPTIDASE 17 U/L (5-85); HDL CHOLESTEROL 52 MG/DL (40-60); PHOSPHORUS 2.7 MG/DL (2.5-4.9); POTASSIUM 3.7 MMOL/L (3.5-5.1); SODIUM 141 MMOL/L (136-145); TRIGLYCERIDES 65 MG/DL (30-150)
[2018-07-12] MEDS ORDERED: Promethazine/Codeine 5ml UD ORAL PRN ×2 (07:45→13:30)
[2018-07-12] MEDS: HydrALAZINE 25mg tab ORAL SCH ×3 (07:59→23:57)
--- NOTE | 2018-07-12 09:32 | Nephrology Progress Note ---
Assessment/Plan Problem List: (1) ESRF (end stage renal failure) (2) Anemia (3) Encephalopathy (4) Hypotension Assessment Encephalopathy- acute blood loss- HGb Stable ESRD Low BP despite h/o HTN- stablized 1. Type 2 diabetes. 2. Hypertension. 3. Anemia of chronic renal disease 4. Hypercholesterolemia. 5. Peripheral vascular disease. 6. Alzheimer's dementia. 7. ?? LUNG Pathology PAST SURGICAL HISTORY: Significant for: 1. Right svzcx-sqz-qofa amputation. 2. Open reduction internal fixation of the left femoral neck on 07/20/2016. Plan HD in am- adjust seroquel monitor H&H discussed with sister Verenice Whalen who requests trial of different HD unit Objective Objective Last 24 Hour Vital Signs Date Time Temp Pulse Resp B/P (MAP) Pulse Ox O2 Delivery O2 Flow Rate FiO2 07/12/18 08:01 Room Air 07/12/18 07:59 121/62 07/12/18 04:00 97.9 92 20 131/58 (82) 96 97.9 07/12/18 02:40 Room Air 07/12/18 00:00 97.7 85 20 117/67 (84) 96 97.7 07/11/18 23:41 117/67 07/11/18 21:00 Room Air 07/11/18 20:00 98.4 100 19 124/67 (86) 93 98.4 07/11/18 17:43 Room Air 07/11/18 17:36 98.5 90 18 130/80 (97) 95 98.5 07/11/18 16:57 98.5 79 24 132/67 100 Room Air 07/11/18 16:47 98.2 87 19 112/64 100 Room Air 98.2 07/11/18 15:01 98.2 95 20 117/55 100 Room Air 98.2 07/11/18 14:47 117/55 07/11/18 13:10 98.2 102 20 103/58 100 Room Air 98.2 07/11/18 12:58 98.5 103 18 119/68 98 Room Air 98.4 Intake and Output 07/11/18 07/12/18 19:00 07:00 Intake Total 200 ml 900 ml Balance 200 ml 900 ml Intake Oral 0 ml 300 ml IV Total 200 ml 600 ml # Voids 1 # Bowel Movements 1 1 Laboratory Tests 07/11/18 13:40: White Blood Count 10.4, Red Blood Count 3.79L, Hemoglobin 10.3L, Hematocrit 32.9L, Mean Corpuscular Volume 87, Mean Corpuscular Hemoglobin 27.2, Mean Corpuscular Hemoglobin Concent 31.2L, Red Cell Distribution Width 16.7H, Platelet Count 415, Mean Platelet Volume 8.0, Neutrophils (%) (Auto) 75.8H, Lymphocytes (%) (Auto) 14.3L, Monocytes (%) (Auto) 7.1, Eosinophils (%) (Auto) 1.6, Basophils (%) (Auto) 1.1, Prothrombin Time 10.7, Prothromb Time International Ratio 1.0, Activated Partial Thromboplast Time 29, Sodium Level 141, Potassium Level 3.7, Chloride Level 102, Carbon Dioxide Level 32, Anion Gap 7, Blood Urea Nitrogen 37H, Creatinine 3.5H, Estimat Glomerular Filtration Rate 15.9, Glucose Level 157H, Calcium Level 9.4, Total Bilirubin 0.2, Aspartate Amino Transf (AST/SGOT) 11L, Alanine Aminotransferase (ALT/SGPT) 12, Alkaline Phosphatase 71, Total Creatine Kinase 22L, Creatine Kinase MB < 0.5, Creatine Kinase MB Relative Index 2.2, Troponin I 0.012, Pro-B-Type Natriuretic Peptide 8223H, Total Protein 6.1L, Albumin 2.8L, Globulin 3.3, Albumin/Globulin Ratio 0.8L 07/11/18 15:02: Lactic Acid Level 1.20 07/12/18 05:12: White Blood Count 8.1, Red Blood Count 3.71L, Hemoglobin 10.0L, Hematocrit 32.4L , Mean Corpuscular Volume 87, Mean Corpuscular Hemoglobin 27.1, Mean Corpuscular Hemoglobin Concent 30.9L, Red Cell Distribution Width 16.8H, Platelet Count 399, Mean Platelet Volume 6.8, Neutrophils (%) (Auto) 61.0, Lymphocytes (%) (Auto) 23.1, Monocytes (%) (Auto) 8.0, Eosinophils (%) (Auto) 7.3H, Basophils (%) (Auto) 0.6, Sodium Level 141, Potassium Level 3.7, Chloride Level 103, Carbon Dioxide Level 30, Anion Gap 9, Blood Urea Nitrogen 46H, Creatinine 4.3H, Estimat Glomerular Filtration Rate 12.5, Glucose Level 114H, Calcium Level 9.2, Total Bilirubin 0.2, Aspartate Amino Transf (AST/SGOT) 12L, Alanine Aminotransferase (ALT/SGPT) 14, Alkaline Phosphatase 73, Troponin I 0.005, Pro-B-Type Natriuretic Peptide 7086H, Total Protein 6.1L, Albumin 2.8L, Globulin 3.3, Albumin/Globulin Ratio 0.8L, Hemoglobin A1c 5.2, Uric Acid 4.5, Phosphorus Level 2.7, Magnesium Level 2.0, Ferritin 211, Gamma Glutamyl Transpeptidase 17, Ammonia 18, C-Reactive Protein, Quantitative 0.8, Triglycerides Level 65, Cholesterol Level 152, LDL Cholesterol 70, HDL Cholesterol 52, Cholesterol/HDL Ratio 2.9L, Vitamin B12 Level 559, Folate 19.2, Thyroid Stimulating Hormone (TSH) 0.496, Hepatitis B Surface Antigen [Pending], Hepatitis B Surface Antibody, Quant [Pending], Hepatitis C Antibody [Pending] Height (Feet): 5 Height (Inches): 4.00 Weight (Pounds): 154 Marques Motta MD Jul 12, 2018 09:32
[2018-07-12 12:00] VITALS: BP 113/67
--- NOTE | 2018-07-12 12:06 | Consultation ---
History of Present Illness General Date patient seen: Jul 12, 2018 Chief Complaint: Abnormal Labs Present Illness HPI 68-year-old female presents ED for evaluation. Referred from [facility] for hemorrhage from AV fistula after dialysis. the pt has depressive sxs and anxiety Allergies: Coded Allergies: No Known Allergies (Unverified , 09/15/16) Medication History Scheduled Amino Acids/Protein Hydrolys (Pro-Stat Liquid), 45 ML ORAL TWICE A DAY, ( Reported) Apixaban (Eliquis), 10 MG PO BID Apixaban (Eliquis), 5 MG PO BID, (Reported) Aspirin* (Aspirin*), 81 MG ORAL DAILY, (Reported) Atorvastatin Calcium* (Atorvastatin Calcium*), 20 MG ORAL BEDTIME, (Reported) Collagenase Clostridium Hist. (Santyl), 1 APPLIC TP DAILY, (Reported) Docusate Sodium* (Docusate Sodium*), 100 MG ORAL THREE TIMES A DAY, (Reported) Esomeprazole Magnesium (Nexium), 40 MG ORAL DAILY, (Reported) Ferrous Sulfate* (Ferrous Sulfate*), 325 MG ORAL DAILY, (Reported) Hydralazine Hcl* (Hydralazine Hcl*), 25 MG ORAL EVERY 8 HOURS, (Reported) Ibuprofen* (Motrin*), 400 MG ORAL Q6H, (Reported) Insulin Glargine (Lantus), 20 SUBQ BEDTIME, (Reported) Lorazepam* (Lorazepam*), 2 MG ORAL DAILY, (Reported) Metoclopramide Hcl* (Metoclopramide Hcl*), 5 MG ORAL EVERY 6 HOURS, (Reported) Metoprolol Tartrate* (Metoprolol Tartrate*), 50 MG ORAL DAILY, (Reported) Pantoprazole* (Protonix*), 40 MG ORAL DAILY, (Reported) Polyethylene Glycol 3350* (Miralax*), 17 GM ORAL BEDTIME, (Reported) Quetiapine Fumarate* (Seroquel*), 12.5 MG ORAL BID, (Reported) Sucralfate* (Carafate*), 1 GM ORAL BEDTIME, (Reported) [Nephro Aid], 1 TAB PO DAILY, (Reported) Scheduled PRN Acetaminophen* (Acetaminophen 325MG Tablet*), 650 MG ORAL Q4HR PRN for Mild Pain (Pain Scale 1-3), (Reported) Morphine Sulfate* (Morphine Sulfate*), 2 MG IVP Q4HR PRN for For Pain, (Reported ) Nitroglycerin (Nitroglycerin), 0.4 MG SL for Prn Chest Pain, (Reported) Ondansetron* (Zofran*), 4 MG IVP Q6H PRN for Nausea & Vomiting, (Reported) Ondansetron* (Zofran*), 4 MG ORAL Q6H PRN for Nausea & Vomiting, (Reported) Temazepam (Temazepam*), 15 MG ORAL HS PRN for Insomnia, (Reported) Miscellaneous Medications Insulin Aspart (Novolog), 100 UNIT SQ, (Reported) Insuln Asp Prt/Insulin Aspart (Novolog Mix 70-30 Flexpen Syrn), 100 UNIT SQ, ( Reported) Patient History History Provided By: Patient, Medical Record, PMD Healthcare decision maker Resuscitation status Advanced Directive on File Yes Past Medical/Surgical History Past Medical/Surgical History: (1) Diabetes mellitus (2) Cellulitis (3) Sepsis (4) Decubital ulcer (5) Hemorrhagic shock (6) Gastric polyp (7) Fever (8) Aspiration pneumonia (9) Lung mass (10) Vaginal bleeding (11) ATN (acute tubular necrosis) (12) DVT (deep venous thrombosis) (13) NSTEMI (non-ST elevated myocardial infarction) (14) Episode of generalized weakness (15) Non-ST elevation (NSTEMI) myocardial infarction (16) Acute encephalopathy (17) ESRF (end stage renal failure) (18) Anemia (19) Encephalopathy (20) Hypotension Review of Systems Psychiatric: Reports: see HPI, anxiety, depressed feelings, emotional problems Physical Exam General Appearance: no apparent distress, alert Neurologic: oriented x 3, responsive, depressed affect Last 24 Hour Vital Signs Date Time Temp Pulse Resp B/P (MAP) Pulse Ox O2 Delivery O2 Flow Rate FiO2 07/12/18 12:00 97.7 86 20 113/67 (82) 96 97.7 07/12/18 08:01 Room Air 07/12/18 07:59 121/62 07/12/18 04:00 97.9 92 20 131/58 (82) 96 97.9 07/12/18 02:40 Room Air 07/12/18 00:00 97.7 85 20 117/67 (84) 96 97.7 07/11/18 23:41 117/67 07/11/18 21:00 Room Air 07/11/18 20:00 98.4 100 19 124/67 (86) 93 98.4 07/11/18 17:43 Room Air 07/11/18 17:36 98.5 90 18 130/80 (97) 95 98.5 07/11/18 16:57 98.5 79 24 132/67 100 Room Air 07/11/18 16:47 98.2 87 19 112/64 100 Room Air 98.2 07/11/18 15:01 98.2 95 20 117/55 100 Room Air 98.2 07/11/18 14:47 117/55 07/11/18 13:10 98.2 102 20 103/58 100 Room Air 98.2 07/11/18 12:58 98.5 103 18 119/68 98 Room Air 98.4 Intake and Output 07/11/18 07/12/18 19:00 07:00 Intake Total 200 ml 900 ml Balance 200 ml 900 ml Intake Oral 0 ml 300 ml IV Total 200 ml 600 ml # Voids 1 # Bowel Movements 1 1 Laboratory Tests Test 07/11/18 13:40 07/11/18 15:02 07/12/18 05:12 White Blood Count 10.4 K/UL (4.8-10.8) 8.1 K/UL (4.8-10.8) Red Blood Count 3.79 M/UL (4.20-5.40) L 3.71 M/UL (4.20-5.40) L Hemoglobin 10.3 G/DL (12.0-16.0) L 10.0 G/DL (12.0-16.0) L Hematocrit 32.9 % (37.0-47.0) L 32.4 % (37.0-47.0) L Mean Corpuscular Volume 87 FL (80-99) 87 FL (80-99) Mean Corpuscular Hemoglobin 27.2 PG (27.0-31.0) 27.1 PG (27.0-31.0) Mean Corpuscular Hemoglobin Concent 31.2 G/DL (32.0-36.0) L 30.9 G/DL (32.0-36.0) L Red Cell Distribution Width 16.7 % (11.6-14.8) H 16.8 % (11.6-14.8) H Platelet Count 415 K/UL (150-450) 399 K/UL (150-450) Mean Platelet Volume 8.0 FL (6.5-10.1) 6.8 FL (6.5-10.1) Neutrophils (%) (Auto) 75.8 % (45.0-75.0) H 61.0 % (45.0-75.0) Lymphocytes (%) (Auto) 14.3 % (20.0-45.0) L 23.1 % (20.0-45.0) Monocytes (%) (Auto) 7.1 % (1.0-10.0) 8.0 % (1.0-10.0) Eosinophils (%) (Auto) 1.6 % (0.0-3.0) 7.3 % (0.0-3.0) H Basophils (%) (Auto) 1.1 % (0.0-2.0) 0.6 % (0.0-2.0) Prothrombin Time 10.7 SEC (9.30-11.50) Prothromb Time International Ratio 1.0 (0.9-1.1) Activated Partial Thromboplast Time 29 SEC (23-33) Sodium Level 141 MMOL/L (136-145) 141 MMOL/L (136-145) Potassium Level 3.7 MMOL/L (3.5-5.1) 3.7 MMOL/L (3.5-5.1) Chloride Level 102 MMOL/L (98-107) 103 MMOL/L (98-107) Carbon Dioxide Level 32 MMOL/L (21-32) 30 MMOL/L (21-32) Anion Gap 7 mmol/L (5-15) 9 mmol/L (5-15) Blood Urea Nitrogen 37 mg/dL (7-18) H 46 mg/dL (7-18) H Creatinine 3.5 MG/DL (0.55-1.30) H 4.3 MG/DL (0.55-1.30) H Estimat Glomerular Filtration Rate 15.9 mL/min (>60) 12.5 mL/min (>60) Glucose Level 157 MG/DL (74-106) H 114 MG/DL (74-106) H Calcium Level 9.4 MG/DL (8.5-10.1) 9.2 MG/DL (8.5-10.1) Total Bilirubin 0.2 MG/DL (0.2-1.0) 0.2 MG/DL (0.2-1.0) Aspartate Amino Transf (AST/SGOT) 11 U/L (15-37) L 12 U/L (15-37) L Alanine Aminotransferase (ALT/SGPT) 12 U/L (12-78) 14 U/L (12-78) Alkaline Phosphatase 71 U/L (46-116) 73 U/L (46-116) Total Creatine Kinase 22 U/L (26-308) L Creatine Kinase MB < 0.5 NG/ML (0.0-3.6) Creatine Kinase MB Relative Index 2.2 Troponin I 0.012 ng/mL (0.000-0.056) 0.005 ng/mL (0.000-0.056) Pro-B-Type Natriuretic Peptide 8223 pg/mL (0-125) H 7086 pg/mL (0-125) H Total Protein 6.1 G/DL (6.4-8.2) L 6.1 G/DL (6.4-8.2) L Albumin 2.8 G/DL (3.4-5.0) L 2.8 G/DL (3.4-5.0) L Globulin 3.3 g/dL 3.3 g/dL Albumin/Globulin Ratio 0.8 (1.0-2.7) L 0.8 (1.0-2.7) L Lactic Acid Level 1.20 mmol/L (0.4-2.0) Hemoglobin A1c 5.2 % (4.3-6.0) Uric Acid 4.5 MG/DL (2.6-7.2) Phosphorus Level 2.7 MG/DL (2.5-4.9) Magnesium Level 2.0 MG/DL (1.8-2.4) Ferritin 211 NG/ML (8-388) Gamma Glutamyl Transpeptidase 17 U/L (5-85) Ammonia 18 umol/L (11-32) C-Reactive Protein, Quantitative 0.8 mg/dL (0.00-0.90) Triglycerides Level 65 MG/DL (30-150) Cholesterol Level 152 MG/DL (< 200) LDL Cholesterol 70 mg/dL (<100) HDL Cholesterol 52 MG/DL (40-60) Cholesterol/HDL Ratio 2.9 (3.3-4.4) L Vitamin B12 Level 559 PG/ML (193-986) Folate 19.2 NG/ML (8.6-58.9) Thyroid Stimulating Hormone (TSH) 0.496 uiU/mL (0.358-3.740) Hepatitis B Surface Antigen Pending Hepatitis B Surface Antibody, Quant Pending Hepatitis C Antibody Pending Microbiology Date/Time Source Procedure Growth Status 07/11/18 15:40 Rectum - Preliminary Resulted Height (Feet): 5 Height (Inches): 4.00 Weight (Pounds): 154 Medications Current Medications Medications (Trade) Dose Ordered Sig/Althea Route PRN Reason Start Time Stop Time Status Last Admin Dose Admin Acetaminophen (Tylenol) 650 mg Q4H PRN ORAL Mild Pain (Pain Scale 1-3) 07/11/18 14:45 08/10/18 14:44 Acetaminophen (Tylenol) 650 mg Q4H PRN ORAL fever 07/11/18 14:45 08/10/18 14:44 Atorvastatin Calcium (Lipitor) 10 mg BEDTIME ORAL 07/11/18 21:00 08/10/18 20:59 07/11/18 21:12 Dextrose (Dextrose 50%) STAT PRN IV Hypoglycemia 07/11/18 17:00 08/10/18 14:44 Dextrose (Dextrose 50%) STAT PRN IV Hypoglycemia 07/11/18 17:00 08/10/18 14:44 Hydralazine HCl (Apresoline) 25 mg Q8H ORAL 07/12/18 00:00 08/11/18 00:00 07/12/18 07:59 Insulin Aspart (NovoLOG) BEFORE MEALS AND HS SUBQ 07/11/18 17:00 08/10/18 16:29 07/12/18 06:18 Lorazepam (Ativan 2mg/ml 1ml) 0.5 mg Q4H PRN IV For Anxiety 07/11/18 17:00 07/18/18 14:44 Ondansetron HCl (Zofran) 4 mg Q6H PRN IVP Nausea & Vomiting 07/11/18 14:45 08/10/18 14:44 Pantoprazole (Protonix) 40 mg DAILY ORAL 07/11/18 17:51 08/10/18 17:50 07/12/18 07:57 Polyethylene Glycol (Miralax) 17 gm HSPRN PRN ORAL Constipation 07/11/18 14:45 08/10/18 14:44 Promethazine HCl/ Codeine (Phenergan with Codeine) 5 ml Q8HR PRN ORAL Cough 07/12/18 07:45 08/11/18 07:44 Quetiapine Fumarate (SEROquel) 12.5 mg BID ORAL 07/11/18 18:00 08/10/18 17:59 07/12/18 07:59 Quetiapine Fumarate (SEROquel) 25 mg QHS ORAL 07/12/18 21:00 08/11/18 20:59 Sodium Chloride 1,000 ml @ 50 mls/hr Q20H IV 07/11/18 17:00 08/10/18 15:59 07/11/18 17:50 Zolpidem Tartrate (Ambien) 5 mg HSPRN PRN ORAL Insomnia 07/11/18 14:45 07/18/18 14:44 Assessment/Plan Status: stable Assessment/Plan bipolar d/o seroquel standing seroquel prn Belia Grant MD Jul 12, 2018 12:06
--- NOTE | 2018-07-12 13:29 | Pulmonology Progress Note ---
Assessment/Plan Problems: (1) Hemorrhagic shock (2) Bronchitis (3) S/P AKA (above knee amputation) unilateral (4) Diabetes mellitus (5) ESRF (end stage renal failure) Assessment/Plan improving h/h stable check sputum respiratory treatment check electrolytes dc planning Subjective ROS Limited/Unobtainable: No Constitutional: Reports: no symptoms HEENT: Repors: no symptoms Allergies: Coded Allergies: No Known Allergies (Unverified , 09/15/16) Objective Last 24 Hour Vital Signs Date Time Temp Pulse Resp B/P (MAP) Pulse Ox O2 Delivery O2 Flow Rate FiO2 07/12/18 12:00 97.7 86 20 113/67 (82) 96 97.7 07/12/18 08:01 Room Air 07/12/18 07:59 121/62 07/12/18 04:00 97.9 92 20 131/58 (82) 96 97.9 07/12/18 02:40 Room Air 07/12/18 00:00 97.7 85 20 117/67 (84) 96 97.7 07/11/18 23:41 117/67 07/11/18 21:00 Room Air 07/11/18 20:00 98.4 100 19 124/67 (86) 93 98.4 07/11/18 17:43 Room Air 07/11/18 17:36 98.5 90 18 130/80 (97) 95 98.5 07/11/18 16:57 98.5 79 24 132/67 100 Room Air 07/11/18 16:47 98.2 87 19 112/64 100 Room Air 98.2 07/11/18 15:01 98.2 95 20 117/55 100 Room Air 98.2 07/11/18 14:47 117/55 Intake and Output 07/11/18 07/12/18 19:00 07:00 Intake Total 200 ml 900 ml Balance 200 ml 900 ml Intake Oral 0 ml 300 ml IV Total 200 ml 600 ml # Voids 1 # Bowel Movements 1 1 General Appearance: WD/WN HEENT: normocephalic Respiratory/Chest: chest wall non-tender, lungs clear Cardiovascular: normal peripheral pulses, normal rate Abdomen: normal bowel sounds, soft, non tender Genitourinary: normal external genitalia Extremities: no cyanosis Skin: no rash Neurologic/Psychiatric: pharmacy ancillary II-XII grossly normal Microbiology Date/Time Source Procedure Growth Status 07/11/18 15:40 Rectum - Preliminary Resulted Laboratory Tests 07/11/18 13:40: White Blood Count 10.4, Red Blood Count 3.79L, Hemoglobin 10.3L, Hematocrit 32.9L, Mean Corpuscular Volume 87, Mean Corpuscular Hemoglobin 27.2, Mean Corpuscular Hemoglobin Concent 31.2L, Red Cell Distribution Width 16.7H, Platelet Count 415, Mean Platelet Volume 8.0, Neutrophils (%) (Auto) 75.8H, Lymphocytes (%) (Auto) 14.3L, Monocytes (%) (Auto) 7.1, Eosinophils (%) (Auto) 1.6, Basophils (%) (Auto) 1.1, Prothrombin Time 10.7, Prothromb Time International Ratio 1.0, Activated Partial Thromboplast Time 29, Sodium Level 141, Potassium Level 3.7, Chloride Level 102, Carbon Dioxide Level 32, Anion Gap 7, Blood Urea Nitrogen 37H, Creatinine 3.5H, Estimat Glomerular Filtration Rate 15.9, Glucose Level 157H, Calcium Level 9.4, Total Bilirubin 0.2, Aspartate Amino Transf (AST/SGOT) 11L, Alanine Aminotransferase (ALT/SGPT) 12, Alkaline Phosphatase 71, Total Creatine Kinase 22L, Creatine Kinase MB < 0.5, Creatine Kinase MB Relative Index 2.2, Troponin I 0.012, Pro-B-Type Natriuretic Peptide 8223H, Total Protein 6.1L, Albumin 2.8L, Globulin 3.3, Albumin/Globulin Ratio 0.8L 07/11/18 15:02: Lactic Acid Level 1.20 07/12/18 05:12: White Blood Count 8.1, Red Blood Count 3.71L, Hemoglobin 10.0L, Hematocrit 32.4L , Mean Corpuscular Volume 87, Mean Corpuscular Hemoglobin 27.1, Mean Corpuscular Hemoglobin Concent 30.9L, Red Cell Distribution Width 16.8H, Platelet Count 399, Mean Platelet Volume 6.8, Neutrophils (%) (Auto) 61.0, Lymphocytes (%) (Auto) 23.1, Monocytes (%) (Auto) 8.0, Eosinophils (%) (Auto) 7.3H, Basophils (%) (Auto) 0.6, Sodium Level 141, Potassium Level 3.7, Chloride Level 103, Carbon Dioxide Level 30, Anion Gap 9, Blood Urea Nitrogen 46H, Creatinine 4.3H, Estimat Glomerular Filtration Rate 12.5, Glucose Level 114H, Calcium Level 9.2, Total Bilirubin 0.2, Aspartate Amino Transf (AST/SGOT) 12L, Alanine Aminotransferase (ALT/SGPT) 14, Alkaline Phosphatase 73, Troponin I 0.005, Pro-B-Type Natriuretic Peptide 7086H, Total Protein 6.1L, Albumin 2.8L, Globulin 3.3, Albumin/Globulin Ratio 0.8L, Hemoglobin A1c 5.2, Uric Acid 4.5, Phosphorus Level 2.7, Magnesium Level 2.0, Ferritin 211, Gamma Glutamyl Transpeptidase 17, Ammonia 18, C-Reactive Protein, Quantitative 0.8, Triglycerides Level 65, Cholesterol Level 152, LDL Cholesterol 70, HDL Cholesterol 52, Cholesterol/HDL Ratio 2.9L, Vitamin B12 Level 559, Folate 19.2, Thyroid Stimulating Hormone (TSH) 0.496, Hepatitis B Surface Antigen [Pending], Hepatitis B Surface Antibody, Quant [Pending], Hepatitis C Antibody [Pending] Current Medications Medications (Trade) Dose Ordered Sig/Althea Route PRN Reason Start Time Stop Time Status Last Admin Dose Admin Acetaminophen (Tylenol) 650 mg Q4H PRN ORAL Mild Pain (Pain Scale 1-3) 07/11/18 14:45 08/10/18 14:44 Acetaminophen (Tylenol) 650 mg Q4H PRN ORAL fever 07/11/18 14:45 08/10/18 14:44 Atorvastatin Calcium (Lipitor) 10 mg BEDTIME ORAL 07/11/18 21:00 08/10/18 20:59 07/11/18 21:12 Dextrose (Dextrose 50%) STAT PRN IV Hypoglycemia 07/11/18 17:00 08/10/18 14:44 Dextrose (Dextrose 50%) STAT PRN IV Hypoglycemia 07/11/18 17:00 08/10/18 14:44 Hydralazine HCl (Apresoline) 25 mg Q8H ORAL 07/12/18 00:00 08/11/18 00:00 07/12/18 07:59 Insulin Aspart (NovoLOG) BEFORE MEALS AND HS SUBQ 07/11/18 17:00 08/10/18 16:29 07/12/18 12:55 Lorazepam (Ativan 2mg/ml 1ml) 0.5 mg Q4H PRN IV For Anxiety 07/11/18 17:00 07/18/18 14:44 Ondansetron HCl (Zofran) 4 mg Q6H PRN IVP Nausea & Vomiting 07/11/18 14:45 08/10/18 14:44 Pantoprazole (Protonix) 40 mg DAILY ORAL 07/11/18 17:51 08/10/18 17:50 07/12/18 07:57 Polyethylene Glycol (Miralax) 17 gm HSPRN PRN ORAL Constipation 07/11/18 14:45 08/10/18 14:44 Promethazine HCl/ Codeine (Phenergan with Codeine) 5 ml Q8HR PRN ORAL Cough 07/12/18 07:45 08/11/18 07:44 Quetiapine Fumarate (SEROquel) 12.5 mg BID ORAL 07/11/18 18:00 08/10/18 17:59 07/12/18 07:59 Quetiapine Fumarate (SEROquel) 25 mg QHS ORAL 07/12/18 21:00 08/11/18 20:59 Sodium Chloride 1,000 ml @ 50 mls/hr Q20H IV 07/11/18 17:00 08/10/18 15:59 07/11/18 17:50 Zolpidem Tartrate (Ambien) 5 mg HSPRN PRN ORAL Insomnia 07/11/18 14:45 07/18/18 14:44 Lit Cerna MD Jul 12, 2018 13:29
[2018-07-13] VITALS (7 sets, daily range): BP systolic 114–150; BP diastolic 67–92
[2018-07-13] MEDS ORDERED: Zolpidem 5mg tab ORAL PRN (00:15)
[2018-07-13] MEDS ORDERED: Miralax 17gm pkt ORAL PRN (00:15)
[2018-07-13] MEDS: NovoLOG Insulin Flexpen SUBQ SCH ×4 (06:15→21:26)
[2018-07-13] MEDS: HydrALAZINE 25mg tab ORAL SCH ×2 (08:00→17:11)
--- NOTE | 2018-07-13 09:34 | Nephrology Progress Note ---
Assessment/Plan Problem List: (1) ESRF (end stage renal failure) (2) Anemia (3) Encephalopathy (4) Hypotension Assessment Encephalopathy- MS improved acute blood loss- Hgb Stable ESRD Low BP despite h/o HTN- stablized 1. Type 2 diabetes. 2. Hypertension. 3. Anemia of chronic renal disease 4. Hypercholesterolemia. 5. Peripheral vascular disease. 6. Alzheimer's dementia. 7. ?? LUNG Pathology PAST SURGICAL HISTORY: Significant for: 1. Right [id number] amputation. 2. Open reduction internal fixation of the left femoral neck on 07/20/2016. Plan HD today- DC IV Add Lopressor for BP adjust seroquel monitor H&H discussed with sister Verenice Whalen who requests trial of different HD unit Objective Objective Last 24 Hour Vital Signs Date Time Temp Pulse Resp B/P (MAP) Pulse Ox O2 Delivery O2 Flow Rate FiO2 07/13/18 08:17 96.4 103 18 150/92 (111) 97 96.4 07/13/18 08:00 150/92 07/13/18 07:20 91 20 Room Air 07/13/18 04:00 97.5 86 19 140/80 (100) 96 97.5 07/12/18 23:57 148/74 07/12/18 21:00 Room Air 07/12/18 19:44 94 18 Room Air 07/12/18 16:29 131/71 07/12/18 12:00 97.7 86 20 113/67 (82) 96 97.7 Intake and Output 07/12/18 07/13/18 19:00 07:00 Intake Total 905 ml 750 ml Output Total 250 ml Balance 905 ml 500 ml Intake Oral 480 ml 150 ml IV Total 425 ml 600 ml Output Urine Total 250 ml # Voids 2 # Bowel Movements 1 Height (Feet): 5 Height (Inches): 4.00 Weight (Pounds): 169 General Appearance: no apparent distress Cardiovascular: tachycardia Respiratory/Chest: lungs clear Abdomen: soft Marques Motta MD Jul 13, 2018 09:34
[2018-07-13] MEDS ORDERED: Metoprolol Tartrate 12.5mg TAB ORAL SCH (10:00)
--- NOTE | 2018-07-13 11:26 | Pulmonology Progress Note ---
Assessment/Plan Problems: (1) Hemorrhagic shock (2) Bronchitis (3) S/P AKA (above knee amputation) unilateral (4) Diabetes mellitus (5) ESRF (end stage renal failure) Assessment/Plan improving h/h stable check sputum respiratory treatment check electrolytes dc planning Subjective ROS Limited/Unobtainable: No Constitutional: Reports: no symptoms HEENT: Repors: no symptoms Respiratory: Reports: no symptoms Allergies: Coded Allergies: No Known Allergies (Unverified , 09/15/16) Objective Last 24 Hour Vital Signs Date Time Temp Pulse Resp B/P (MAP) Pulse Ox O2 Delivery O2 Flow Rate FiO2 07/13/18 10:05 90 150/68 (95) 07/13/18 09:54 Room Air 07/13/18 09:50 90 150/68 07/13/18 08:17 96.4 103 18 150/92 (111) 97 96.4 07/13/18 08:00 150/92 07/13/18 07:20 91 20 Room Air 07/13/18 04:00 97.5 86 19 140/80 (100) 96 97.5 07/12/18 23:57 148/74 07/12/18 21:00 Room Air 07/12/18 19:44 94 18 Room Air 07/12/18 16:29 131/71 07/12/18 12:00 97.7 86 20 113/67 (82) 96 97.7 Intake and Output 07/12/18 07/13/18 19:00 07:00 Intake Total 905 ml 750 ml Output Total 250 ml Balance 905 ml 500 ml Intake Oral 480 ml 150 ml IV Total 425 ml 600 ml Output Urine Total 250 ml # Voids 2 # Bowel Movements 1 General Appearance: WD/WN HEENT: normocephalic, atraumatic Respiratory/Chest: chest wall non-tender, lungs clear, no respiratory distress Cardiovascular: normal peripheral pulses, normal rate Abdomen: normal bowel sounds, soft, non tender Extremities: no cyanosis Skin: no ulcers Neurologic/Psychiatric: health policy manager II-XII grossly normal, abnormal gait Microbiology Date/Time Source Procedure Growth Status 07/11/18 15:17 Blood Blood Culture - Preliminary NO GROWTH AFTER 24 HOURS Resulted 07/11/18 15:08 Blood Blood Culture - Preliminary NO GROWTH AFTER 24 HOURS Resulted 07/11/18 15:40 Rectum - Final NO CARBAPENEM-RESISTANT ENTEROBACTERI... Complete Current Medications Medications (Trade) Dose Ordered Sig/Althea Route PRN Reason Start Time Stop Time Status Last Admin Dose Admin Acetaminophen (Tylenol) 650 mg Q4H PRN ORAL Mild Pain (Pain Scale 1-3) 07/11/18 14:45 08/10/18 14:44 Acetaminophen (Tylenol) 650 mg Q4H PRN ORAL fever 07/11/18 14:45 08/10/18 14:44 Atorvastatin Calcium (Lipitor) 10 mg BEDTIME ORAL 07/11/18 21:00 08/10/18 20:59 07/12/18 21:14 Dextrose (Dextrose 50%) STAT PRN IV Hypoglycemia 07/11/18 17:00 08/10/18 14:44 Dextrose (Dextrose 50%) STAT PRN IV Hypoglycemia 07/11/18 17:00 08/10/18 14:44 Hydralazine HCl (Apresoline) 25 mg Q8H ORAL 07/12/18 00:00 08/11/18 00:00 07/12/18 23:57 Insulin Aspart (NovoLOG) BEFORE MEALS AND HS SUBQ 07/11/18 17:00 08/10/18 16:29 07/13/18 06:15 Lorazepam (Ativan 2mg/ml 1ml) 0.5 mg Q4H PRN IV For Anxiety 07/11/18 17:00 07/18/18 14:44 Metoprolol Tartrate (Lopressor) 12.5 mg Q12HR ORAL 07/13/18 21:00 08/12/18 20:59 Ondansetron HCl (Zofran) 4 mg Q6H PRN IVP Nausea & Vomiting 07/11/18 14:45 08/10/18 14:44 Pantoprazole (Protonix) 40 mg DAILY ORAL 07/11/18 17:51 08/10/18 17:50 07/13/18 09:37 Polyethylene Glycol (Miralax) 17 gm HSPRN PRN ORAL Constipation 07/13/18 00:15 08/12/18 00:14 07/13/18 00:10 Promethazine HCl/ Codeine (Phenergan with Codeine) 5 ml Q4H PRN ORAL For Cough 07/12/18 13:30 08/11/18 13:29 8/25/18 02:56 Quetiapine Fumarate (SEROquel) 12.5 mg BID ORAL 07/11/18 18:00 08/10/18 17:59 07/13/18 09:37 Quetiapine Fumarate (SEROquel) 25 mg QHS ORAL 07/12/18 21:00 08/11/18 20:59 07/12/18 21:14 Zolpidem Tartrate (Ambien) 5 mg HSPRN PRN ORAL Insomnia 07/13/18 00:15 07/20/18 00:14 07/13/18 00:10 Lit Cerna MD Jul 13, 2018 11:26
[2018-07-13] MEDS: Metoprolol Tartrate 12.5mg TAB ORAL SCH (21:21)
[2018-07-14] VITALS (10 sets, daily range): BP systolic 109–146; BP diastolic 57–80
[2018-07-14] MEDS: HydrALAZINE 25mg tab ORAL SCH ×3 (00:30→16:58)
[2018-07-14] MEDS: NovoLOG Insulin Flexpen SUBQ SCH ×4 (06:12→22:07)
[2018-07-14 06:23] LABS: BASOPHILS % (AUTO) 1.7 % (0.0-2.0); HEMATOCRIT 28.9 % (37.0-47.0); HEMOGLOBIN 9.2 G/DL (12.0-16.0); LYMPHOCYTES % (AUTO) 23.5 % (20.0-45.0); MEAN CORPUSCULAR VOLUME 87 FL (80-99); MONOCYTES % (AUTO) 11.1 % (1.0-10.0); NEUTROPHILS % (AUTO) 54.6 % (45.0-75.0); PLATELET COUNT 383 K/UL (150-450); RED BLOOD COUNT 3.34 M/UL (4.20-5.40); RED CELL DISTRIBUTION WIDTH 16.6 % (11.6-14.8)
[2018-07-14 06:30] LABS: % IRON SATURATION 19 % (15-50); IRON 29 ug/dL (50-175); TOTAL IRON BINDING CAPACITY 151 ug/dL (250-450)
[2018-07-14 06:54] LABS: ALANINE AMINOTRANSFERASE 17 U/L (12-78); ALBUMIN 2.5 G/DL (3.4-5.0); ALBUMIN/GLOBULIN RATIO 0.8 (1.0-2.7); ALKALINE PHOSPHATASE 70 U/L (46-116); ANION GAP 6 mmol/L (5-15); ASPARTATE AMINO TRANSFERASE 11 U/L (15-37); BILIRUBIN,TOTAL 0.2 MG/DL (0.2-1.0); BLOOD UREA NITROGEN 47 mg/dL (7-18); CALCIUM 8.8 MG/DL (8.5-10.1); CARBON DIOXIDE 31 MMOL/L (21-32); CHLORIDE 100 MMOL/L (98-107); CREATININE 3.6 MG/DL (0.55-1.30); PHOSPHORUS 3.5 MG/DL (2.5-4.9); POTASSIUM 4.2 MMOL/L (3.5-5.1); SODIUM 136 MMOL/L (136-145)
[2018-07-14] MEDS: Metoprolol Tartrate 12.5mg TAB ORAL SCH ×2 (10:37→22:10)
--- NOTE | 2018-07-14 12:36 | Nephrology Progress Note ---
Assessment/Plan Problem List: (1) ESRF (end stage renal failure) (2) Anemia (3) Encephalopathy (4) Hypotension Assessment Encephalopathy- MS improved acute blood loss- Hgb Stable ESRD Low BP despite h/o HTN- stablized 1. Type 2 diabetes. 2. Hypertension. 3. Anemia of chronic renal disease 4. Hypercholesterolemia. 5. Peripheral vascular disease. 6. Alzheimer's dementia. 7. ?? LUNG Pathology PAST SURGICAL HISTORY: Significant for: 1. Right [id number] amputation. 2. Open reduction internal fixation of the left femoral neck on 07/20/2016. Plan HD again in am lower hydralazine DC IV Add Lopressor for BP adjust seroquel monitor H&H discussed with sister Verenice Whalen who requests trial of different HD unit Subjective ROS Limited/Unobtainable: No Constitutional: Reports: malaise Objective Objective Last 24 Hour Vital Signs Date Time Temp Pulse Resp B/P (MAP) Pulse Ox O2 Delivery O2 Flow Rate FiO2 07/14/18 11:44 97.7 81 18 112/64 (80) 92 97.7 07/14/18 10:37 90 121/62 07/14/18 10:33 90 121/62 (81) 07/14/18 09:08 Room Air 07/14/18 08:59 125/71 07/14/18 08:53 85 125/71 (89) 07/14/18 08:28 97.9 95 18 109/57 (74) 98 97.9 07/14/18 04:00 97.5 86 18 122/67 (85) 96 97.5 07/14/18 00:30 117/68 07/14/18 00:00 97.3 83 18 131/74 (93) 95 97.3 07/13/18 21:21 80 117/68 07/13/18 21:00 Room Air 07/13/18 20:00 99.1 80 18 117/68 (84) 95 99.1 07/13/18 19:13 92 20 Room Air 07/13/18 17:11 146/79 07/13/18 17:04 93 146/79 (101) 07/13/18 16:38 Room Air 07/13/18 16:03 97.5 83 18 114/67 (83) 95 97.5 Intake and Output 07/13/18 07/14/18 19:00 07:00 Intake Total 1080 ml Output Total 2700 ml 800 ml Balance -1620 ml -800 ml Intake Oral 1080 ml Output Urine Total 600 ml 800 ml Hemodialysis UF 2100 ml # Bowel Movements 1 Laboratory Tests 07/14/18 05:00: White Blood Count 7.0, Red Blood Count 3.34L, Hemoglobin 9.2L, Hematocrit 28.9L , Mean Corpuscular Volume 87, Mean Corpuscular Hemoglobin 27.5, Mean Corpuscular Hemoglobin Concent 31.8L, Red Cell Distribution Width 16.6H, Platelet Count 383, Mean Platelet Volume 8.8, Neutrophils (%) (Auto) 54.6, Lymphocytes (%) (Auto) 23.5, Monocytes (%) (Auto) 11.1H, Eosinophils (%) (Auto) 9.0H, Basophils (%) (Auto) 1.7, Sodium Level 136, Potassium Level 4.2, Chloride Level 100, Carbon Dioxide Level 31, Anion Gap 6, Blood Urea Nitrogen 47H, Creatinine 3.6H, Estimat Glomerular Filtration Rate 15.3, Glucose Level 126H, Calcium Level 8.8, Phosphorus Level 3.5, Magnesium Level 1.8, Iron Level 29L, Total Iron Binding Capacity 151L, Percent Iron Saturation 19, Unsaturated Iron Binding 122, Total Bilirubin 0.2, Aspartate Amino Transf (AST/SGOT) 11L, Alanine Aminotransferase (ALT/SGPT) 17, Alkaline Phosphatase 70, Total Protein 5.6L, Albumin 2.5L, Globulin 3.1, Albumin/Globulin Ratio 0.8L Height (Feet): 5 Height (Inches): 4.00 Weight (Pounds): 173 General Appearance: no apparent distress Objective no change Marques Motta MD Jul 14, 2018 12:36
--- NOTE | 2018-07-14 12:42 | Cardiology Report ---
APPROVED REPORT EXAM: Two-dimensional and M-mode echocardiogram with Doppler and color Doppler. INDICATION Congestive Heart Failure M-Mode DIMENSIONS IVSd1.3 (0.7-1.1cm)Left Atrium (MM)4.0 (1.6-4.0cm) LVDd5.6 (3.5-5.6cm)Aortic Root3.0 (2.0-3.7cm) PWd1.2 (0.7-1.1cm)Aortic Cusp Exc.1.7 (1.5-2.0cm) LVDs3.3 (2.5-4.0cm) PWs1.7 cm Normal left ventricular chamber size, systolic function and wall motion. Left ventricular ejection fraction estimated to be 55 %. Mild left ventricular hypertrophy. Anterior Echo-free space, may be due to pericardial fat or effusion. Left atrial size at upper limits of normal. Right cardiac chamber sizes are within normal limits. Mild focal aortic valve sclerosis with adequate cusp excursion. Mildly thickened mitral valve leaflets with normal excursion. Mild mitral annulus and aortic root calcification. Normal pulmonic valve structure. Normal tricuspid valve structure. IVC is normal in size with physiological collapse. A color flow and spectral Doppler study was performed and revealed: Mild aortic insufficiency. Moderate mitral regurgitation. Mitral diastolic velocities suggest mild left ventricular diastolic dysfunction (Grade I). Mild tricuspid regurgitation. Tricuspid systolic velocities suggests peak right ventricular systolic pressure of 33 mmHg. Mild to moderate pulmonic regurgitation present.
--- NOTE | 2018-07-14 13:25 | Pulmonology Progress Note ---
Assessment/Plan Problems: (1) Hemorrhagic shock (2) Bronchitis (3) S/P AKA (above knee amputation) unilateral (4) Diabetes mellitus (5) ESRF (end stage renal failure) Assessment/Plan improving h/h stable check sputum respiratory treatment check electrolytes dc planning in progress Subjective Constitutional: Reports: no symptoms HEENT: Repors: no symptoms Respiratory: Reports: no symptoms Allergies: Coded Allergies: No Known Allergies (Unverified , 09/15/16) Objective Last 24 Hour Vital Signs Date Time Temp Pulse Resp B/P (MAP) Pulse Ox O2 Delivery O2 Flow Rate FiO2 07/14/18 11:44 97.7 81 18 112/64 (80) 92 97.7 07/14/18 10:37 90 121/62 07/14/18 10:33 90 121/62 (81) 07/14/18 09:08 Room Air 07/14/18 08:59 125/71 07/14/18 08:53 85 125/71 (89) 07/14/18 08:28 97.9 95 18 109/57 (74) 98 97.9 07/14/18 04:00 97.5 86 18 122/67 (85) 96 97.5 07/14/18 00:30 117/68 07/14/18 00:00 97.3 83 18 131/74 (93) 95 97.3 07/13/18 21:21 80 117/68 07/13/18 21:00 Room Air 07/13/18 20:00 99.1 80 18 117/68 (84) 95 99.1 07/13/18 19:13 92 20 Room Air 07/13/18 17:11 146/79 07/13/18 17:04 93 146/79 (101) 07/13/18 16:38 Room Air 07/13/18 16:03 97.5 83 18 114/67 (83) 95 97.5 Intake and Output 07/13/18 07/14/18 19:00 07:00 Intake Total 1080 ml Output Total 2700 ml 800 ml Balance -1620 ml -800 ml Intake Oral 1080 ml Output Urine Total 600 ml 800 ml Hemodialysis UF 2100 ml # Bowel Movements 1 General Appearance: WD/WN Respiratory/Chest: chest wall non-tender, lungs clear Cardiovascular: normal peripheral pulses, no gallop/murmur Abdomen: soft, non tender, no organomegaly Extremities: no cyanosis Skin: no rash Microbiology Date/Time Source Procedure Growth Status 07/11/18 15:17 Blood Blood Culture - Preliminary NO GROWTH AFTER 48 HOURS Resulted 07/11/18 15:08 Blood Blood Culture - Preliminary NO GROWTH AFTER 48 HOURS Resulted 07/12/18 02:30 Nasal Nares MRSA Culture - Final NO METHICILLIN RESISTANT STAPH AUREUS... Complete 07/12/18 02:30 Rectum - Final NO CARBAPENEM-RESISTANT ENTEROBACTERI... Complete 07/12/18 02:30 Rectum VRE Culture - Final NO VANCOMYCIN RESISTANT ENTEROCOCCUS ... Complete 07/11/18 15:40 Rectum - Final NO CARBAPENEM-RESISTANT ENTEROBACTERI... Complete Laboratory Tests 07/14/18 05:00: White Blood Count 7.0, Red Blood Count 3.34L, Hemoglobin 9.2L, Hematocrit 28.9L , Mean Corpuscular Volume 87, Mean Corpuscular Hemoglobin 27.5, Mean Corpuscular Hemoglobin Concent 31.8L, Red Cell Distribution Width 16.6H, Platelet Count 383, Mean Platelet Volume 8.8, Neutrophils (%) (Auto) 54.6, Lymphocytes (%) (Auto) 23.5, Monocytes (%) (Auto) 11.1H, Eosinophils (%) (Auto) 9.0H, Basophils (%) (Auto) 1.7, Sodium Level 136, Potassium Level 4.2, Chloride Level 100, Carbon Dioxide Level 31, Anion Gap 6, Blood Urea Nitrogen 47H, Creatinine 3.6H, Estimat Glomerular Filtration Rate 15.3, Glucose Level 126H, Calcium Level 8.8, Phosphorus Level 3.5, Magnesium Level 1.8, Iron Level 29L, Total Iron Binding Capacity 151L, Percent Iron Saturation 19, Unsaturated Iron Binding 122, Total Bilirubin 0.2, Aspartate Amino Transf (AST/SGOT) 11L, Alanine Aminotransferase (ALT/SGPT) 17, Alkaline Phosphatase 70, Total Protein 5.6L, Albumin 2.5L, Globulin 3.1, Albumin/Globulin Ratio 0.8L Current Medications Medications (Trade) Dose Ordered Sig/Althea Route PRN Reason Start Time Stop Time Status Last Admin Dose Admin Acetaminophen (Tylenol) 650 mg Q4H PRN ORAL Mild Pain (Pain Scale 1-3) 07/11/18 14:45 08/10/18 14:44 Acetaminophen (Tylenol) 650 mg Q4H PRN ORAL fever 07/11/18 14:45 08/10/18 14:44 Atorvastatin Calcium (Lipitor) 10 mg BEDTIME ORAL 07/11/18 21:00 08/10/18 20:59 07/13/18 21:21 Dextrose (Dextrose 50%) STAT PRN IV Hypoglycemia 07/11/18 17:00 08/10/18 14:44 Dextrose (Dextrose 50%) STAT PRN IV Hypoglycemia 07/11/18 17:00 08/10/18 14:44 Hydralazine HCl (Apresoline) 12.5 mg Q8H ORAL 07/14/18 16:00 08/11/18 00:00 Insulin Aspart (NovoLOG) BEFORE MEALS AND HS SUBQ 07/11/18 17:00 08/10/18 16:29 07/14/18 11:34 Lorazepam (Ativan 2mg/ml 1ml) 0.5 mg Q4H PRN IV For Anxiety 07/11/18 17:00 07/18/18 14:44 Metoprolol Tartrate (Lopressor) 12.5 mg Q12HR ORAL 07/13/18 21:00 08/12/18 20:59 07/14/18 10:37 Ondansetron HCl (Zofran) 4 mg Q6H PRN IVP Nausea & Vomiting 07/11/18 14:45 08/10/18 14:44 Pantoprazole (Protonix) 40 mg DAILY ORAL 07/11/18 17:51 08/10/18 17:50 07/14/18 08:59 Polyethylene Glycol (Miralax) 17 gm HSPRN PRN ORAL Constipation 07/13/18 00:15 08/12/18 00:14 07/13/18 00:10 Promethazine HCl/ Codeine (Phenergan with Codeine) 5 ml Q4H PRN ORAL For Cough 07/12/18 13:30 08/11/18 13:29 07/13/18 02:56 Quetiapine Fumarate (SEROquel) 12.5 mg BID ORAL 07/11/18 18:00 08/10/18 17:59 07/14/18 09:00 Quetiapine Fumarate (SEROquel) 25 mg QHS ORAL 07/12/18 21:00 08/11/18 20:59 07/13/18 21:21 Zolpidem Tartrate (Ambien) 5 mg HSPRN PRN ORAL Insomnia 07/13/18 00:15 07/20/18 00:14 07/13/18 00:10 Lit Cerna MD Jul 14, 2018 13:25
[2018-07-15 04:10] VITALS: BP 142/75
[2018-07-15] MEDS: NovoLOG Insulin Flexpen SUBQ SCH ×4 (05:57→20:41)
[2018-07-15] MEDS: HydrALAZINE 25mg tab ORAL SCH ×3 (08:08→15:09)
[2018-07-15] MEDS: Metoprolol Tartrate 12.5mg TAB ORAL SCH ×2 (08:08→20:35)
--- NOTE | 2018-07-15 08:32 | Nephrology Progress Note ---
Assessment/Plan Problem List: (1) ESRF (end stage renal failure) (2) Anemia (3) Encephalopathy (4) Hypotension Assessment Encephalopathy- MS improved acute blood loss- Hgb Stable ESRD Low BP despite h/o HTN- stablized 1. Type 2 diabetes. 2. Hypertension. 3. Anemia of chronic renal disease 4. Hypercholesterolemia. 5. Peripheral vascular disease. 6. Alzheimer's dementia. 7. ?? LUNG Pathology PAST SURGICAL HISTORY: Significant for: 1. Right [id number]-[id number] amputation. 2. Open reduction internal fixation of the left femoral neck on 07/20/2016. Plan HD tday- ? DC after HD lower hydralazine DC IV Add Lopressor for BP adjust seroquel monitor H&H discussed with sister Verenice Whalen who requests trial of different HD unit Subjective ROS Limited/Unobtainable: No Objective Objective Last 24 Hour Vital Signs Date Time Temp Pulse Resp B/P (MAP) Pulse Ox O2 Delivery O2 Flow Rate FiO2 07/15/18 08:08 118/61 07/15/18 08:08 81 118/61 07/15/18 04:10 97.9 90 18 142/75 (97) 95 97.9 07/15/18 00:00 140/80 07/14/18 23:56 98.2 85 18 140/80 (100) 97 98.2 07/14/18 22:10 86 146/75 07/14/18 21:00 Room Air 07/14/18 20:00 98.2 86 16 146/75 (98) 99 98.2 07/14/18 16:58 140/63 07/14/18 16:54 80 140/63 (88) 07/14/18 16:12 96.7 78 18 132/71 (91) 97 96.7 07/14/18 11:44 97.7 81 18 112/64 (80) 92 97.7 07/14/18 10:37 90 121/62 07/14/18 10:33 90 121/62 (81) 07/14/18 09:08 Room Air 07/14/18 08:59 125/71 07/14/18 08:53 85 125/71 (89) Intake and Output 07/14/18 07/15/18 19:00 07:00 Intake Total 1200 ml Output Total 600 ml Balance 600 ml Intake Oral 1200 ml Output Urine Total 600 ml # Voids 2 # Bowel Movements 3 Height (Feet): 5 Height (Inches): 4.00 Weight (Pounds): 172 General Appearance: no apparent distress Objective no change Marques Motta MD Jul 15, 2018 08:32
[2018-07-15 08:46] VITALS: BP 118/61
--- NOTE | 2018-07-15 11:22 | General Progress Note ---
Assessment/Plan Assessment/Plan bipolar d/o seroquel standing seroquel prn Subjective Neurologic/Psychiatric: Reports: anxiety, depressed Allergies: Coded Allergies: No Known Allergies (Unverified , 09/15/16) Objective Last 24 Hour Vital Signs Date Time Temp Pulse Resp B/P (MAP) Pulse Ox O2 Delivery O2 Flow Rate FiO2 07/15/18 09:00 Room Air 07/15/18 08:46 97.5 97 18 118/61 (80) 97 97.5 07/15/18 08:08 118/61 07/15/18 08:08 81 118/61 07/15/18 04:10 97.9 90 18 142/75 (97) 95 97.9 07/15/18 00:00 140/80 07/14/18 23:56 98.2 85 18 140/80 (100) 97 98.2 07/14/18 22:10 86 146/75 07/14/18 21:00 Room Air 07/14/18 20:00 98.2 86 16 146/75 (98) 99 98.2 07/14/18 16:58 140/63 07/14/18 16:54 80 140/63 (88) 07/14/18 16:12 96.7 78 18 132/71 (91) 97 96.7 07/14/18 11:44 97.7 81 18 112/64 (80) 92 97.7 Intake and Output 07/14/18 07/15/18 19:00 07:00 Intake Total 1200 ml Output Total 600 ml Balance 600 ml Intake Oral 1200 ml Output Urine Total 600 ml # Voids 2 # Bowel Movements 3 Height (Feet): 5 Height (Inches): 4.00 Weight (Pounds): 175 Belia Grant MD Jul 15, 2018 11:22
[2018-07-15 12:25] VITALS: BP 113/65
--- NOTE | 2018-07-15 12:36 | Pulmonology Progress Note ---
Assessment/Plan Problems: (1) Hemorrhagic shock (2) Bronchitis (3) S/P AKA (above knee amputation) unilateral (4) Diabetes mellitus (5) ESRF (end stage renal failure) Assessment/Plan improving h/h stable check sputum respiratory treatment check electrolytes dc planning in progress Subjective ROS Limited/Unobtainable: No Constitutional: Reports: no symptoms HEENT: Repors: no symptoms Respiratory: Reports: no symptoms Allergies: Coded Allergies: No Known Allergies (Unverified , 09/15/16) Objective Last 24 Hour Vital Signs Date Time Temp Pulse Resp B/P (MAP) Pulse Ox O2 Delivery O2 Flow Rate FiO2 07/15/18 12:25 97.2 83 18 113/65 (81) 95 97.2 07/15/18 09:00 Room Air 07/15/18 08:46 97.5 97 18 118/61 (80) 97 97.5 07/15/18 08:08 118/61 07/15/18 08:08 81 118/61 07/15/18 04:10 97.9 90 18 142/75 (97) 95 97.9 07/15/18 00:00 140/80 07/14/18 23:56 98.2 85 18 140/80 (100) 97 98.2 07/14/18 22:10 86 146/75 07/14/18 21:00 Room Air 07/14/18 20:00 98.2 86 16 146/75 (98) 99 98.2 07/14/18 16:58 140/63 07/14/18 16:54 80 140/63 (88) 07/14/18 16:12 96.7 78 18 132/71 (91) 97 96.7 Intake and Output 07/14/18 07/15/18 19:00 07:00 Intake Total 1200 ml Output Total 600 ml Balance 600 ml Intake Oral 1200 ml Output Urine Total 600 ml # Voids 2 # Bowel Movements 3 General Appearance: WD/WN HEENT: normocephalic, atraumatic Respiratory/Chest: chest wall non-tender, lungs clear Breasts: no masses Cardiovascular: normal peripheral pulses, regularly irregular Abdomen: normal bowel sounds, no organomegaly Genitourinary: normal external genitalia Extremities: no cyanosis Skin: no ulcers Neurologic/Psychiatric: manager book II-XII grossly normal, abnormal gait Lymphatic: no neck adenopathy Current Medications Medications (Trade) Dose Ordered Sig/Althea Route PRN Reason Start Time Stop Time Status Last Admin Dose Admin Acetaminophen (Tylenol) 650 mg Q4H PRN ORAL Mild Pain (Pain Scale 1-3) 07/11/18 14:45 08/10/18 14:44 Acetaminophen (Tylenol) 650 mg Q4H PRN ORAL fever 07/11/18 14:45 08/10/18 14:44 Atorvastatin Calcium (Lipitor) 10 mg BEDTIME ORAL 07/11/18 21:00 08/10/18 20:59 07/14/18 22:10 Dextrose (Dextrose 50%) STAT PRN IV Hypoglycemia 07/11/18 17:00 08/10/18 14:44 Dextrose (Dextrose 50%) STAT PRN IV Hypoglycemia 07/11/18 17:00 08/10/18 14:44 Hydralazine HCl (Apresoline) 12.5 mg Q8H ORAL 07/14/18 16:00 08/11/18 00:00 07/15/18 08:08 Insulin Aspart (NovoLOG) BEFORE MEALS AND HS SUBQ 07/11/18 17:00 08/10/18 16:29 07/15/18 11:07 Lorazepam (Ativan 2mg/ml 1ml) 0.5 mg Q4H PRN IV For Anxiety 07/11/18 17:00 07/18/18 14:44 Metoprolol Tartrate (Lopressor) 12.5 mg Q12HR ORAL 07/13/18 21:00 08/12/18 20:59 07/15/18 08:08 Ondansetron HCl (Zofran) 4 mg Q6H PRN IVP Nausea & Vomiting 07/11/18 14:45 08/10/18 14:44 Pantoprazole (Protonix) 40 mg DAILY ORAL 07/11/18 17:51 08/10/18 17:50 07/15/18 08:09 Polyethylene Glycol (Miralax) 17 gm HSPRN PRN ORAL Constipation 07/13/18 00:15 08/12/18 00:14 07/13/18 00:10 Promethazine HCl/ Codeine (Phenergan with Codeine) 5 ml Q4H PRN ORAL For Cough 07/12/18 13:30 08/11/18 13:29 07/13/18 02:56 Quetiapine Fumarate (SEROquel) 12.5 mg BID ORAL 07/11/18 18:00 08/10/18 17:59 07/15/18 08:09 Quetiapine Fumarate (SEROquel) 25 mg QHS ORAL 07/12/18 21:00 08/11/18 20:59 07/14/18 22:09 Zolpidem Tartrate (Ambien) 5 mg HSPRN PRN ORAL Insomnia 07/13/18 00:15 07/20/18 00:14 07/13/18 00:10 Lit Cerna MD Jul 15, 2018 12:36
[2018-07-15 15:42] VITALS: BP 108/88
[2018-07-15 20:31] VITALS: BP 136/67
[2018-07-15 20:35] VITALS: BP 136/67
--- NOTE | 2018-07-16 07:20 | Discharge Summary ---
Discharge Summary Discharge Summary _ DATE OF ADMISSION: 07/11/2018 DATE OF DISCHARGE: 07/15/2018 REASON FOR ADMISSION: 68 years old female with past medical history of end-stage renal disease, on hemodialysis, hypertension, diabetes, history of CVA, dementia, GERD, above- knee amputation on the left leg, halfway resident, presented to emergency department for evaluation of hemorrhage from AV fistula during dialysis the day prior to presentation. According to outpatient hemodialysis nurse, patient pulled out her dialysis needle during dialysis . Patient was agitated. Patient subsequently lost 200 mL of blood at dialysis. Per nursing staff at the facility, patient lost significant amount of blood. Blood pressure was low at the facility. Upon arrival to ED patient showed no signs of distress. No fever, no chills. She reported cough with production of yellow phlegm. No wheezing, no hemoptysis. Upon evaluation vital signs revealed mild tachycardia. Laboratory workup revealed no leukocytosis, hemoglobin 10.3, hematocrit 32.9. Stable coagulation profile. Stable electrolytes, BUN 37, creatinine 3.5. Glucose 157. Troponin negative. EKG revealed sinus rhythm, no acute ischemic changes. Chest x-ray demonstrated haziness of the pulmonary vasculature with patchy opacity in the medial base. Findings were likely related to low lung volumes. Possibly interstitial edema/fluid overload. Patient admitted with diagnoses of hemorrhagic shock, bronchitis, anemia ,end- stage renal disease on hemodialysis, diabetes mellitus, status post AKA left leg , encephalopathy. CONSULTANTS: tin dipper Dr. Motta psychiatrist [facility]: Patient admitted. Supplemental oxygen provided as needed to keep pulse oximetry above 92%. Pulmonary toilet provided as needed. Blood culture were negative. Antitussive provided as needed. Hemoglobin and hematocrit were closely monitored with goal to keep hemoglobin above 7. Anemia workup was consistent with anemia of chronic kidney disease. Small trend down but no need for transfusion. Prior to discharge, hemoglobin 9.2 and hematocrit 28.9. Machinist Bench closely followed. Hemodialysis provided as per tin dipper directions. Renal parameters amd electrolytes were closely monitored. Electrolytes corrected as needed. Echocardiogram revealed preserved ejection fraction of 55% and right ventricular systolic pressure of 33. No evidence of wall motion abnormalities. Venous duplex bilateral lower extremity was negative. Troponin 2 was negative. Blood pressure stabilized and was managed with hydralazine ( dose decreased) and beta myrtle . Statin was continued . Lipid panel was stable. TSH was within normal limits. Blood sugar was managed with sliding scale insulin . Hemoglobin A1c 5.2. Psychiatrist seen and evaluated patient. Psychiatrist diagnosed patient with encephalopathy due to general medical condition and bipolar disorder. Patient was on Seroquel . Reality orientation provided. Supportive care provided . GI prophylaxis provided. Bowel regimen instituted Patient subsequently stabilized and was ready for transfer back to [facility] facility for continuation of care FINAL DIAGNOSES: Hemorrhagic shock Bronchitis Anemia of chronic renal disease End-stage renal disease , on hemodialysis Diabetes mellitus Peripheral vascular disease with history of above-knee amputation left leg Encephalopathy secondary to general medical condition Alzheimer dementia Bipolar disorder DISCHARGE MEDICATIONS: See Medication Reconciliation list. DISCHARGE INSTRUCTIONS: Patient was discharged to the [facility] facility. Follow up with medical doctor at the facility. I have been assigned to dictate discharge summary for this account. I was not involved in the patient's management. Kaia Gonzalez NP Jul 16, 2018 07:20
== END 2018-07-15 21:30 | DRG 871 ==
LOC: EDSEX 13:09 → EDBD 13:09 → EMR 14:20 → 4W 16:47 → EDBEDREQ 16:50 → EMR 16:57
PROC: 5A1D70Z Performance of Urinary Filtration, Intermittent, Less than 6 Hours Per Day (ICD-10-PCS; principal; 2018-07-14)
DX: R57.8 Other shock (principal); N18.6 End stage renal disease; G93.49 Other encephalopathy; I12.0 Hypertensive chronic kidney disease with stage 5 chronic kidney disease or end stage renal disease; J40 Bronchitis, not specified as acute or chronic; E11.22 Type 2 diabetes mellitus with diabetic chronic kidney disease; D63.1 Anemia in chronic kidney disease; Z99.2 Dependence on renal dialysis; I73.9 Peripheral vascular disease, unspecified; Z89.612 Acquired absence of left leg above knee; G30.9 Alzheimer's disease, unspecified; F02.80 Dementia in other diseases classified elsewhere, unspecified severity, without behavioral disturbance, psychotic disturbance, mood disturbance, and anxiety; F31.9 Bipolar disorder, unspecified; Z79.4 Long term (current) use of insulin
CPT/HCPCS: 36415; 71045; 80053; 80061; 82140; 82550; 82553; 82607; 82728; 82746; 82962; 82977; 83036; 83540; 83550; 83605; 83735; 83880; 84100; 84443; 84484; 84550; 85025; 85610; 85730; 86140; 86706; 86707; 86803; 86850; 86900; 86901; 87040; 87081; 93005; 93306; 93970; 94664; 99285; J1815

== ENCOUNTER 2018-08-02 02:47 | Emergency (ER) | payer MEDICARE, MEDICAID ==
[~2018-08-02] VITALS: Ht 175.3 cm; Wt 90.7 kg
--- NOTE | 2018-08-02 03:06 | Emergency Room Report ---
History of Present Illness General Chief Complaint: Multiple Trauma/Fall Source: Patient, Medical Record, EMS Present Illness HPI Is a 68-year-old female for [facility]. She has a history of dementia and renal failure on hemodialysis. She was sent in for evaluation of a fall. Around 4 PM today she fell off the bed. Unknown trauma. EMS said the roommate witnessed her falling down. Nurse found her on her back. Patient denies any pain. Patient history is limited but she denies any headache or pain. She denies falling. Allergies: Coded Allergies: No Known Allergies (Unverified , 09/15/16) Patient History Past Medical History: see triage record, old chart reviewed, dialysis Past Surgical History: other Pertinent Family History: none Social History: Denies: smoking Now: No Immunizations: other Reviewed Nursing Documentation: PMH: Agreed; PSxH: Agreed Nursing Documentation-PMH Past Medical History: No History, Except For Hx Diabetes: Yes Hx Cancer: No Hx Gastrointestinal Problems: Yes - hyperlipidemia, GERD Hx Dialysis: Yes - ESRD History Of Psychiatric Problem: Yes - Alzheimer's, muscle weakness, anxiety, psychotic w/ delusions, insomnia Hx Cerebrovascular Accident: Yes Hx Dementia: Yes Hx Alzheimer's Disease: Yes Hx Paralysis: Yes Hx Dysphasia: Yes Hx Weakness: Yes Review of Systems Eye: Denies: eye pain, blurred vision ENT: Denies: ear pain, nose congestion, throat swelling Respiratory: Denies: cough, shortness of breath Cardiovascular: Denies: chest pain, palpitations Gastrointestinal: Denies: abdominal pain, diarrhea, nausea, vomiting Musculoskeletal: Denies: back pain, joint pain Skin: Denies: rash Neurological: Denies: headache, numbness Endocrine: Denies: increased thirst, increased urine Hematologic/Lymphatic: Denies: easy bruising All Other Systems: negative except mentioned in HPI Physical Exam Vital Signs Date Time Temp Pulse Resp B/P (MAP) Pulse Ox O2 Delivery O2 Flow Rate FiO2 08/02/18 02:47 98.0 83 18 122/66 96 Room Air 98.1 vitals normal Sp02 EP Interpretation: reviewed, normal General Appearance: well appearing, no apparent distress, alert Head: normocephalic, atraumatic Eyes: bilateral eye PERRL, bilateral eye EOMI ENT: hearing grossly normal, normal pharynx Neck: full range of motion, supple, no meningismus Respiratory: chest non-tender, lungs clear, normal breath sounds Cardiovascular #1: regular rate, rhythm, no murmur Gastrointestinal: normal bowel sounds, non tender, no mass, no organomegaly, no bruit, non-distended Musculoskeletal: back normal, normal range of motion, other - Right AKA Neurologic: alert, oriented x3 Psychiatric: mood/affect normal Skin: warm/dry Medical Decision Making Diagnostic Impression: Primary Impression: Fall Qualified Codes: W19.XXXA - Unspecified fall, initial encounter ER Course Patient presents with a fall without any obvious injury. No evidence of any bleeding. No evidence of any fracture. We'll discharge back to [facility]. CT/MRI/US Diagnostic Results CT/MRI/US Diagnostic Results #1: Imaging Test Ordered: CT head Impression negative per radiologist CT/MRI/US Diagnostic Results #2: Imaging Test Ordered: CT L-spine Impression no acute fracture per radiologist Last Vital Signs Date Time Temp Pulse Resp B/P (MAP) Pulse Ox O2 Delivery O2 Flow Rate FiO2 08/02/18 02:47 98.0 83 18 122/66 96 Room Air 98.1 Status: improved Disposition: XFER SNF Condition: Stable Referrals: Lit Cerna MD (PCP) Additional Instructions: Follow-up with your doctor in 7 days. Fall precaution. Return if worse. FORTINO DANG M.D. Aug 02, 2018 03:06
[2018-08-02 03:11] VITALS: BP 140/68
[2018-08-02 04:30] VITALS: BP 135/65
[2018-08-02 05:10] VITALS: BP 135/67
--- NOTE | 2018-08-02 11:51 | Diagnostic Imaging Report ---
Indication: Reason For Exam: TRAUMA Technique: spiral acquisitions obtained through the brain. Angled axial and coronal 5 x 5 mm slices were reconstructed. No IV contrast utilized. Radiation dose was minimized using automated exposure control Total dose length product 1281 mGycm. CTDIvol(s) 70 mGy Comparison: none FINDINGS: There is image degradation due to motion artifact. No gross acute hemorrhage or edema. No mass effect or midline shift. There is age-related enlargement of the ventricles and extra axial CSF spaces. There is periventricular deep white matter ischemic change. Normal kendall-white differentiation. Visualized orbits are unremarkable. Visualized sinuses are unremarkable. Intact calvarium. IMPRESSION: Chronic and age-related changes. Negative for acute intracranial bleed or mass effect Limited due to motion artifact This agrees with the preliminary interpretation provided overnight by [facility] teleradiology service. The CT scanner at [facility] is accredited by the [employer] and the scans are performed using protocols designed to limit radiation exposure to as low as reasonably achievable to attain images of sufficient resolution adequate for diagnostic evaluation
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
== END 2018-08-02 05:15 ==
LOC: EDBD 02:47 → EDUNIT# 02:47 → EMR 03:01
DX: T14.90XA Injury, unspecified, initial encounter (principal); W06.XXXA Fall from bed, initial encounter; Y92.122 Bedroom in nursing home as the place of occurrence of the external cause; E11.22 Type 2 diabetes mellitus with diabetic chronic kidney disease; N18.6 End stage renal disease; Z99.2 Dependence on renal dialysis; G30.1 Alzheimer's disease with late onset; F02.80 Dementia in other diseases classified elsewhere, unspecified severity, without behavioral disturbance, psychotic disturbance, mood disturbance, and anxiety; F05 Delirium due to known physiological condition; E78.5 Hyperlipidemia, unspecified; K21.9 Gastro-esophageal reflux disease without esophagitis; Y93.89 Activity, other specified; Y99.8 Other external cause status
CPT/HCPCS: 70450; 72131; 99284

== ENCOUNTER 2018-08-10 22:28 | Emergency (ER) | payer MEDICARE, MEDICAID ==
[~2018-08-10] VITALS: Ht 170.2 cm; Wt 69.4 kg
[2018-08-10 22:39] VITALS: BP 116/61
--- NOTE | 2018-08-10 23:57 | Diagnostic Imaging Report ---
EXAM: CT Head Without Intravenous Contrast CLINICAL HISTORY: FALL TECHNIQUE: Axial computed tomography images of the head/brain without intravenous contrast. CTDI is 0.15, 0.15, 70.38 mGy and DLP is 1372 mGy-cm. One or more of the following dose reduction techniques were used: automated exposure control, adjustment of the mA and/or kV according to patient size, use of iterative reconstruction technique. COMPARISON: 08/02/18 FINDINGS: Brain: Areas of decreased density in the white matter which are nonspecific but are likely related to small vessel ischemic changes. Cerebral atrophy. Hypodensities in the basal ganglia which are likely related to old small lacunar infarcts. No hemorrhage. Brainstem: Calcification in the region of the bria which has a similar appearance compared to the prior exam. Ventricles: Unremarkable. Bones/joints: Unremarkable. No acute fracture. Soft tissues: Unremarkable. Sinuses: Unremarkable as visualized. No acute sinusitis. Mastoid air cells: Unremarkable as visualized. No mastoid effusion. IMPRESSION: No CT evidence for acute intracranial injury. Cerebral atrophy with small vessel ischemic changes. Old small lacunar infarcts suspected in the basal ganglia.
[2018-08-11 00:24] VITALS: BP 110/60
--- NOTE | 2018-08-11 01:42 | Emergency Room Report ---
History of Present Illness General Chief Complaint: General Complaint Source: Medical Record, EMS Present Illness HPI 68-year-old female presents ED for evaluation. Patient brought in from [facility] for possible head injury. Nursing staff states that patient was found down next to her bed today. Unwitnessed fall. Patient is at baseline mentation; awake alert oriented 2. No signs of distress upon arrival. Patient is unable to provide any additional history at this time. No other aggravating relieving factors. No other associated symptoms Allergies: Coded Allergies: No Known Allergies (Unverified , 09/15/16) Patient History Past Medical History: DM, GERD, dementia, renal disease, dialysis Past Surgical History: none Pertinent Family History: none Social History: Denies: smoking, alcohol use, drug use Now: No Immunizations: UTD Reviewed Nursing Documentation: PMH: Agreed; PSxH: Agreed Nursing Documentation-PMH Past Medical History: No History, Except For Hx Diabetes: Yes Hx Cancer: No Hx Gastrointestinal Problems: Yes - hyperlipidemia, GERD Hx Dialysis: Yes - ESRD Hx Cerebrovascular Accident: Yes Hx Dementia: Yes Hx Alzheimer's Disease: Yes Hx Paralysis: Yes Hx Dysphasia: Yes Hx Weakness: Yes Review of Systems All Other Systems: limited Physical Exam Vital Signs Date Time Temp Pulse Resp B/P (MAP) Pulse Ox O2 Delivery O2 Flow Rate FiO2 08/10/18 22:23 98.6 93 18 116/61 96 Room Air 98.6 Sp02 EP Interpretation: reviewed, normal General Appearance: other - nonverbal Head: normocephalic, atraumatic Eyes: bilateral eye normal inspection, bilateral eye PERRL ENT: hearing grossly normal, normal pharynx, no angioedema, normal voice Neck: full range of motion, supple/symm/no masses Respiratory: chest non-tender, lungs clear, normal breath sounds, speaking full sentences Cardiovascular #1: regular rate, rhythm, no edema Cardiovascular #2: 2+ carotid (R), 2+ carotid (L), 2+ radial (R), 2+ radial (L) , 2+ dorsalis pedis (R), 2+ dorsalis pedis (L) Gastrointestinal: normal bowel sounds, non tender, soft, non-distended, no guarding, no rebound Rectal: deferred Genitourinary: normal inspection, no CVA tenderness Musculoskeletal: back normal, non-tender Neurologic: other - nonverbal Psychiatric: other - nonverbal Reflexes: 3+ bicep (R), 3+ bicep (L), 3+ tricep (R), 3+ tricep (L), 3+ knee (R) , 3+ knee (L) Skin: normal color, no rash, warm/dry, well hydrated Lymphatic: no adenopathy Medical Decision Making Diagnostic Impression: Primary Impression: Head injury Qualified Codes: S09.90XA - Unspecified injury of head, initial encounter ER Course Hospital Course 68 yo F presents to ED found down on floor. Differential diagnoses include: skull fx, intracranial injury, concussion Clinical course Patient placed on stretcher. After initial history and physical I ordered CT head CT head shows no acute process. Vital stable. No signs of distress. At baseline mentation. Patient can be safely discharged back to [facility] PMD Dr. Cerna aware Diagnosis - head injury Stable and discharged to SNF. Followup with PMD. Return to ED if symptoms recur or worsen CT/MRI/US Diagnostic Results CT/MRI/US Diagnostic Results : Imaging Test Ordered: CT Head Impression no acute process Last Vital Signs Date Time Temp Pulse Resp B/P (MAP) Pulse Ox O2 Delivery O2 Flow Rate FiO2 08/11/18 00:24 98.4 90 18 110/60 99 Room Air 98.4 Status: improved Disposition: HOME, SELF-CARE Condition: Stable Patient Instructions: Head Injury, Adult, [id number] Pranav Diamond MD Aug 11, 2018 01:42
[2018-08-11 02:14] VITALS: BP 131/74
== END 2018-08-11 02:14 ==
LOC: EDBD 22:28 → EMR 23:00
DX: S09.90XA Unspecified injury of head, initial encounter (principal); W06.XXXA Fall from bed, initial encounter; Y92.122 Bedroom in nursing home as the place of occurrence of the external cause; E11.9 Type 2 diabetes mellitus without complications; N18.6 End stage renal disease; Z99.2 Dependence on renal dialysis; G30.9 Alzheimer's disease, unspecified; F02.80 Dementia in other diseases classified elsewhere, unspecified severity, without behavioral disturbance, psychotic disturbance, mood disturbance, and anxiety; E78.5 Hyperlipidemia, unspecified; I69.398 Other sequelae of cerebral infarction; I69.391 Dysphagia following cerebral infarction; I69.359 Hemiplegia and hemiparesis following cerebral infarction affecting unspecified side
CPT/HCPCS: 70450; 99284

== ENCOUNTER → 2019-01-03 | Emergency (ER) | payer MEDICARE, MEDICAID ==
[~2019-01-03] VITALS: Ht 175.3 cm; Wt 56.7 kg
[2019-01-03 16:00] VITALS: BP 120/69
--- NOTE | 2019-01-03 16:00 | NUR ---
ED Nurse Note: PT BROUGHT IN BY AMBULANCE FROM [facility]. AOX2 - PT NOT ORIENTED TO TIME OR SITUATION. PER EMS, PT SENT TO ER DUE LEFT FEMUR FRACTURE. PT DENIES ANY PAIN. LIMITED ROM OF LEFT LOWER EXTREMITY AND 1/5 MUSCLE STRENGTH. CIRCULATION AND SENSATION INTACT, CAP REFILL <3 SECONDS. PT HAS AN AKA OF RIGHT LEG. PT HAS AN AV FISTULA IN THE UPPER LEFT ARM AND RECEIVES DIALYSIS MWF.
--- NOTE | 2019-01-03 16:52 | NUR ---
ED Nurse Note: XRAY AT BEDSIDE
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
--- NOTE | 2019-01-03 17:18 | Diagnostic Imaging Report ---
Indications: Femur pain Technique: Two views of the left femur Comparison: None Findings: Surgical hardware is seen reducing old healed subtrochanteric fracture. No acute fractures. Hardware appears intact. Endovascular stents are seen along the course of the left superficial femoral artery. Lateral view indicates evidence of prior right [id number] amputation. Impression: Findings as noted. No definite acute process
[2019-01-03 17:30] VITALS: BP 116/51
[2019-01-03 17:54] LABS: ANION GAP 5 mmol/L (5-15); BLOOD UREA NITROGEN 19 mg/dL (7-18); CALCIUM 8.6 MG/DL (8.5-10.1); CARBON DIOXIDE 35 MMOL/L (21-32); CHLORIDE 101 MMOL/L (98-107); CREATININE 2.7 MG/DL (0.55-1.30); POTASSIUM 3.2 MMOL/L (3.5-5.1); SODIUM 141 MMOL/L (136-145)
[2019-01-03 17:59] LABS: ALANINE AMINOTRANSFERASE 16 U/L (12-78); ALBUMIN 3.1 G/DL (3.4-5.0); ALBUMIN/GLOBULIN RATIO 0.8 (1.0-2.7); ALKALINE PHOSPHATASE 146 U/L (46-116); ASPARTATE AMINO TRANSFERASE 13 U/L (15-37); BILIRUBIN,TOTAL 0.4 MG/DL (0.2-1.0)
[2019-01-03 18:01] LABS: BASOPHILS % (AUTO) 1.6 % (0.0-2.0); EOSINOPHILS % (AUTO) 5.2 % (0.0-3.0); HEMATOCRIT 48.7 % (37.0-47.0); HEMOGLOBIN 14.8 G/DL (12.0-16.0); LYMPHOCYTES % (AUTO) 33.7 % (20.0-45.0); MEAN CORPUSCULAR VOLUME 90 FL (80-99); MONOCYTES % (AUTO) 11.7 % (1.0-10.0); NEUTROPHILS % (AUTO) 47.7 % (45.0-75.0); PLATELET COUNT 259 K/UL (150-450); RED BLOOD COUNT 5.42 M/UL (4.20-5.40); RED CELL DISTRIBUTION WIDTH 18.3 % (11.6-14.8); WHITE BLOOD COUNT 5.2 K/UL (4.8-10.8)
--- NOTE | 2019-01-03 18:57 | Emergency Room Report ---
History of Present Illness General Chief Complaint: Multiple Trauma/Fall Source: Family Member, EMS Present Illness HPI Patient is a 68-year-old female brought in by [facility] for possible left femur fracture. Patient was noted to have previous surgical repair of fracture to her left femur. Patient denies any current complaints. Patient was noted to have x-ray which showed possible left femur fracture. Allergies: Coded Allergies: No Known Allergies (Unverified , 09/15/16) Nursing Documentation-[facility] Past Medical History: No History, Except For Hx Diabetes: Yes - DM2 Hx Cancer: No Hx Gastrointestinal Problems: Yes - hyperlipidemia, GERD History Of Psychiatric Problem: Yes - ALZHIEIMER'S DZ; ANXIETY ; Hx Cerebrovascular Accident: Yes Hx Dementia: Yes Hx Alzheimer's Disease: Yes Hx Paralysis: Yes Hx Dysphasia: Yes Hx Weakness: Yes Physical Exam Vital Signs Date Time Temp Pulse Resp B/P (MAP) Pulse Ox O2 Delivery O2 Flow Rate FiO2 01/03/19 15:54 97.9 72 16 125/72 90 01/03/19 16:00 Room Air General Appearance: alert, Chronically Ill Eyes: bilateral eye PERRL ENT: hearing grossly normal Neck: full range of motion, supple Respiratory: chest non-tender, lungs clear, normal breath sounds, no rhonchi Cardiovascular #1: normal peripheral pulses, regular rate, rhythm Gastrointestinal: normal inspection, normal bowel sounds, non tender, soft Musculoskeletal: decreased range of motion, other - amputated bka Neurologic: normal inspection, alert, responsive, motor weakness Skin: normal inspection Medical Decision Making Diagnostic Impression: Primary Impression: Femur fracture, left ER Course Patient presented for possible fracture. Differential diagnosis include was not limited to fracture, dislocation, sprain among others. Patient was noted to have no evident fracture on x-ray imaging. Patient appears to have prior surgical changes with a no acute injury. Patient will be sent back to her care home. Patient was noted to have some chronic renal disease. She will be sent back to her facility. Labs Test 01/03/19 17:28 White Blood Count 5.2 K/UL (4.8-10.8) Red Blood Count 5.42 M/UL (4.20-5.40) Hemoglobin 14.8 G/DL (12.0-16.0) Hematocrit 48.7 % (37.0-47.0) Mean Corpuscular Volume 90 FL (80-99) Mean Corpuscular Hemoglobin 27.3 PG (27.0-31.0) Mean Corpuscular Hemoglobin Concent 30.4 G/DL (32.0-36.0) Red Cell Distribution Width 18.3 % (11.6-14.8) Platelet Count 259 K/UL (150-450) Mean Platelet Volume 11.1 FL (6.5-10.1) Neutrophils (%) (Auto) 47.7 % (45.0-75.0) Lymphocytes (%) (Auto) 33.7 % (20.0-45.0) Monocytes (%) (Auto) 11.7 % (1.0-10.0) Eosinophils (%) (Auto) 5.2 % (0.0-3.0) Basophils (%) (Auto) 1.6 % (0.0-2.0) Prothrombin Time 11.0 SEC (9.30-11.50) Prothromb Time International Ratio 1.0 (0.9-1.1) Activated Partial Thromboplast Time 32 SEC (23-33) Sodium Level 141 MMOL/L (136-145) Potassium Level 3.2 MMOL/L (3.5-5.1) Chloride Level 101 MMOL/L (98-107) Carbon Dioxide Level 35 MMOL/L (21-32) Anion Gap 5 mmol/L (5-15) Blood Urea Nitrogen 19 mg/dL (7-18) Creatinine 2.7 MG/DL (0.55-1.30) Estimat Glomerular Filtration Rate 21.5 mL/min (>60) Glucose Level 114 MG/DL (74-106) Calcium Level 8.6 MG/DL (8.5-10.1) Total Bilirubin 0.4 MG/DL (0.2-1.0) Aspartate Amino Transf (AST/SGOT) 13 U/L (15-37) Alanine Aminotransferase (ALT/SGPT) 16 U/L (12-78) Alkaline Phosphatase 146 U/L (46-116) Total Protein 6.8 G/DL (6.4-8.2) Albumin 3.1 G/DL (3.4-5.0) Globulin 3.7 g/dL Albumin/Globulin Ratio 0.8 (1.0-2.7) Last Vital Signs Date Time Temp Pulse Resp B/P (MAP) Pulse Ox O2 Delivery O2 Flow Rate FiO2 01/03/19 16:00 98.2 80 13 120/69 100 Room Air Status: improved Disposition: HOME, SELF-CARE Condition: Stable Patient Instructions: Femoral Shaft Fracture Additional Instructions: Xray shows no acute fracture Amadou Bustamante MD Jan 03, 2019 18:57
--- NOTE | 2019-01-03 19:05 | NUR ---
Spoke with [facility] [place]- aware of patients return back home by ambulance. Spoke with [id number].
--- NOTE | 2019-01-03 19:14 | NUR ---
ED Nurse Note: REPORT GIVEN TO MAYO GREGORIO.
--- NOTE | 2019-01-03 19:24 | NUR ---
ED Nurse Note: Received report from MAYO Cabrera. Pt in bed awake and resting. No distress noted. Gurney in lowest position with side rails up. Awaiting pickup for transfer back to SNF. Will continue to monitor.
[2019-01-03 19:30] VITALS: BP 111/77
--- NOTE | 2019-01-03 20:17 | NUR ---
ED Nurse Note: Called [facility] and gave report to Gwen over telephone. Gave ETA of [facility] but let her know they are running late. Will continue to monitor while awaiting pickle solution maker.
[2019-01-03 20:29] VITALS: BP 126/57
--- NOTE | 2019-01-03 20:38 | NUR ---
ED Nurse Note: Pt picked up by [facility]. VSS, Pt stable, AAOx2, discharge instructions and all belongiongs given to ambulance personnel.
--- NOTE | 2019-01-05 16:28 | Cardiology Report ---
APPROVED REPORT EKG Measurement Heart [id number] Normal sinus rhythm Possible Left atrial enlargement Septal infarct, age undetermined Prolonged QT Abnormal ECG
== END | disposition home or self-care (01) ==
LOC: EDUNIT# 15:53 → EDBD 15:59 → EMR 17:00 → CANBEDREQ 18:11
DX: S72.92XA Unspecified fracture of left femur, initial encounter for closed fracture (principal); W19.XXXA Unspecified fall, initial encounter; Y92.199 Unspecified place in other specified residential institution as the place of occurrence of the external cause; G30.9 Alzheimer's disease, unspecified; F02.80 Dementia in other diseases classified elsewhere, unspecified severity, without behavioral disturbance, psychotic disturbance, mood disturbance, and anxiety; E78.5 Hyperlipidemia, unspecified; K21.9 Gastro-esophageal reflux disease without esophagitis; E11.9 Type 2 diabetes mellitus without complications; Z86.73 Personal history of transient ischemic attack (TIA), and cerebral infarction without residual deficits
CPT/HCPCS: 36415; 72170; 80053; 85025; 85610; 85730; 86850; 86900; 86901; 93005; 99284

== ENCOUNTER 2019-01-31 22:18 | Inpatient (IN) | payer MEDICARE, MEDICAID ==
[~2019-01-31] VITALS: Ht 165.1 cm; Wt 66.7 kg
[2019-01-31 22:30] VITALS: BP 123/72
--- NOTE | 2019-01-31 22:30 | NUR ---
ED Nurse Note: Per [facility] patient have vaginal bleed since 7 pm today. appears to have no active bleeding as of now. blood is scant amount with red/ brown- kassi color. no swelling, foul odor, or skin reddness noted. py vital signs are within normal limits. pt neuro is alert and oriented times 1, no reported new onset of confusion. pt pupiles are round and reactive to light and accomodating. pt cardic assessment is witin normal limits with pulse and sensation noted on all extremities, cap refill less than 3. Fistual located on L arm. pt respritory assessment is within normal limits, all lung sounds clear on all quadrants, pt abdomen assessment is within normal limits, normal ascultation noted on all 4 abdominal quadratns.
--- NOTE | 2019-01-31 22:40 | NUR ---
ED Nurse Note: PT fistula noted on L arm
[2019-01-31 23:12] LABS: BASOPHILS % (AUTO) 2.3 % (0.0-2.0); EOSINOPHILS % (AUTO) 16.6 % (0.0-3.0); HEMATOCRIT 54.2 % (37.0-47.0); HEMOGLOBIN 16.6 G/DL (12.0-16.0); LYMPHOCYTES % (AUTO) 26.1 % (20.0-45.0); MEAN CORPUSCULAR VOLUME 88 FL (80-99); MONOCYTES % (AUTO) 11.7 % (1.0-10.0); NEUTROPHILS % (AUTO) 43.3 % (45.0-75.0); PLATELET COUNT 266 K/UL (150-450); RED BLOOD COUNT 6.13 M/UL (4.20-5.40); RED CELL DISTRIBUTION WIDTH 16.1 % (11.6-14.8); WHITE BLOOD COUNT 5.4 K/UL (4.8-10.8)
[2019-01-31 23:22] LABS: ANION GAP 7 mmol/L (5-15); BLOOD UREA NITROGEN 21 mg/dL (7-18); CALCIUM 8.7 MG/DL (8.5-10.1); CARBON DIOXIDE 35 MMOL/L (21-32); CHLORIDE 100 MMOL/L (98-107); CREATININE 2.9 MG/DL (0.55-1.30); POTASSIUM 3.2 MMOL/L (3.5-5.1); SODIUM 142 MMOL/L (136-145)
[2019-02-01] VITALS (8 sets, daily range): BP systolic 102–158; BP diastolic 66–100
[2019-02-01 00:17] LABS: APPEARANCE,URINE CLOUDY; BILIRUBIN, URINE NEGATIVE (NEGATIVE); GLUCOSE, URINE (UA) NEGATIVE (NEGATIVE); KETONES,URINE NEGATIVE (NEGATIVE); LEUKOCYTE ESTERASE ,URINE 3+ (NEGATIVE); NITRITE,URINE NEGATIVE (NEGATIVE); PH,URINE 7 (4.5-8.0); PROTEIN,URINE 4+ (NEGATIVE); UROBILINOGEN,URINE 1 MG/DL (0.0-1.0)
[2019-02-01 00:23] LABS: COLOR,URINE YELLOW
[2019-02-01] MEDS ORDERED: cefTRIAXone 1 GM in NS 55 ML IVPB ONE (01:00)
--- NOTE | 2019-02-01 01:22 | Emergency Room Report ---
History of Present Illness General Chief Complaint: Female Urogenital Problems Source: Medical Record Present Illness HPI This is a 68-year-old female with history of hypertension, diabetes, renal failure on hemodialysis. She presents with chief complaint of vaginal bleeding. Onset today. [facility] found large clots in her diaper. Patient has dementia so history is limited. Patient denies any pain. No nausea no vomiting. No fever or chills. No other complaint. Allergies: Coded Allergies: No Known Allergies (Unverified , 09/15/16) Patient History Past Medical History: see triage record, old chart reviewed, DM, HTN, dementia , renal disease, dialysis Past Surgical History: other Pertinent Family History: none Social History: Denies: smoking Now: No Immunizations: other Reviewed Nursing Documentation: PMH: Agreed; PSxH: Agreed Nursing Documentation-PMH Past Medical History: No History, Except For Hx Diabetes: Yes Hx Cancer: No Hx Gastrointestinal Problems: Yes - hyperlipidemia, GERD Hx Cerebrovascular Accident: Yes Hx Dementia: Yes Hx Alzheimer's Disease: Yes Hx Paralysis: Yes Hx Dysphasia: Yes Hx Weakness: Yes Review of Systems Eye: Denies: eye pain, blurred vision ENT: Denies: ear pain, nose congestion, throat swelling Respiratory: Denies: cough, shortness of breath Cardiovascular: Denies: chest pain, palpitations Gastrointestinal: Denies: abdominal pain, diarrhea, nausea, vomiting Genitourinary: Reports: vag bleed/dc Musculoskeletal: Denies: back pain, joint pain Skin: Denies: rash Neurological: Denies: headache, numbness Endocrine: Denies: increased thirst, increased urine Hematologic/Lymphatic: Denies: easy bruising All Other Systems: negative except mentioned in HPI Physical Exam Vital Signs Date Time Temp Pulse Resp B/P (MAP) Pulse Ox O2 Delivery O2 Flow Rate FiO2 01/31/19 22:23 97.9 80 18 123/72 92 Room Air vitals unremarkable Sp02 EP Interpretation: reviewed, normal General Appearance: well appearing, no apparent distress, alert Head: normocephalic, atraumatic Eyes: bilateral eye PERRL, bilateral eye EOMI ENT: hearing grossly normal, normal pharynx Neck: full range of motion, supple, no meningismus Respiratory: chest non-tender, lungs clear, normal breath sounds Cardiovascular #1: regular rate, rhythm, no murmur Gastrointestinal: normal bowel sounds, non tender, no mass, no organomegaly, no bruit, non-distended Genitourinary: other - She does have vaginal bleeding. Musculoskeletal: back normal, normal range of motion Neurologic: alert Psychiatric: mood/affect normal Skin: warm/dry Medical Decision Making Diagnostic Impression: Primary Impression: Vaginal bleeding Additional Impressions: UTI (urinary tract infection) Qualified Codes: N30.00 - Acute cystitis without hematuria Proteinuria Qualified Codes: R80.9 - Proteinuria, unspecified ER Course Patient presents with postmenopausal vaginal bleeding. This is concerning for possible neoplastic process. Vitals are stable. We'll admit for further workup. I discussed the case with Dr. Cerna. Lab Results Impression labs unremarkable Last Vital Signs Date Time Temp Pulse Resp B/P (MAP) Pulse Ox O2 Delivery O2 Flow Rate FiO2 01/31/19 22:30 97.9 71 18 123/72 92 Room Air Status: improved Disposition: ADMITTED INPATIENT Condition: Serious Referrals: Lit Cerna MD (PCP) Kendrick Simpson MD Feb 01, 2019 01:22
--- NOTE | 2019-02-01 03:50 | NUR ---
ED Nurse Note: PT report reported to NANCY RN in MED SURG. pt vital signs are stable. pt status, vital signs, labs and conditions has been reported to receving RN. pt is stable for transfer as per ERMD. pt transfered with all belongings. no skin issuse to report. Receving RN instructed to advise fall precautions.
--- NOTE | 2019-02-01 05:28 | NUR ---
NURSE NOTES: Pt is admitted from ER with Dx of Vaginal Bleeding under DR. Cerna. Pt is awake and verbal. No acute distress noted. Room Air. Vitals stable. A small serosanguineous discharge from vagina noted; maida pad applied. Pt has Hx of diabetes,HTN, CHF, ESRD on HD (left arm fistula). Pt has dementia unable to get much information from patient. Right AKA. Old healed sacral hypopigmentation. Pt is bedbound and incontinentX2. Pt is oriented to the unit. Belongings checked. Bed low in position,side rails up and call light within reach. Dr. Cerna will be contacted for admission orders. Pt will be monitored.
--- NOTE | 2019-02-01 05:50 | NUR ---
NURSE NOTES: Dr. Cerna is called for admission orders, awaiting call back.
--- NOTE | 2019-02-01 07:25 | NUR ---
HAND-OFF: Report given to Bella Noble to obtain admission orders from Dr. Cerna.
[2019-02-01] MEDS ORDERED: Miralax 17gm pkt ORAL PRN (09:15)
[2019-02-01] MEDS ORDERED: Albuterol/Ipratropium 3ml neb HHN PRN (09:15)
--- NOTE | 2019-02-01 09:20 | NUR ---
NURSE NOTES: pt in bed with no sob nor in any form of distress noted. no noted with bleeding at this time. will continue to monitor
[2019-02-01] MEDS: HydrALAZINE 25mg tab ORAL SCH ×2 (13:56→21:32)
--- NOTE | 2019-02-01 14:05 | Consultation ---
Consult Note Consult Note asked to eval for dialysis management [facility] This is a 68-year-old female with history of hypertension, diabetes, renal failure on hemodialysis. She presents with chief complaint of vaginal bleeding. Onset today. correction found large clots in her diaper. Patient has dementia so history is limited. Patient denies any pain. No nausea no vomiting. No fever or chills. No other complaint. Allergies: Coded Allergies: No Known Allergies (Unverified , 09/15/16) Past Medical History: No History, Except For Hx Diabetes: Yes Hx Gastrointestinal Problems: Yes - hyperlipidemia, GERD Hx Cerebrovascular Accident: Yes Hx Dementia: Yes Hx Alzheimer's Disease: Yes Hx Paralysis: Yes Hx Dysphasia: Yes Hx Weakness: Yes examined data reviewed Assessment/Plan ESRD : M W Fr UTI ? Vaginal vs Rectal Bleed other conditions Type 2 diabetes. Hypertension. h/o Anemia of chronic renal disease Hypercholesterolemia. Peripheral vascular disease. Alzheimer's dementia. ?? LUNG Pathology PAST SURGICAL HISTORY: Significant for: 1. Right ybzrp-ubr-rjex amputation. 2. Open reduction internal fixation of the left femoral neck on 07/20/2016. Plan: continue meds monitor H&H next HD 02/03 Rocephin for UTI Marques Motta MD Feb 01, 2019 14:05
--- NOTE | 2019-02-01 14:36 | NUR ---
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 IS:NS x1L IV CEFTRIAXONE 55ml IVPB LIPITOR 20mg ADMITTED TO MED/SURG DC PLAN RETURN TO [facility]
--- NOTE | 2019-02-01 16:56 | History and Physical ---
History of Present Illness General Date patient seen: Feb 01, 2019 Reason for Hospitalization: Female Urogenital Problems Present Illness HPI 68-year-old female with history of hypertension, diabetes, renal failure on hemodialysis presented to ER with chief complaint of vaginal bleeding for one day. [facility] found large clots in her diaper. Patient has dementia so history is limited. Patient denies any pain. No nausea no vomiting. It is unclear if the blood was from rectum or vagina. Allergies: Coded Allergies: No Known Allergies (Unverified , 09/15/16) Medication History Scheduled Aspirin* (Aspirin*), 81 MG ORAL DAILY, (Reported) Atorvastatin Calcium* (Atorvastatin Calcium*), 20 MG ORAL BEDTIME, (Reported) Hydralazine Hcl* (Hydralazine Hcl*), 25 MG ORAL EVERY 8 HOURS, (Reported) Insulin Glargine (Lantus), 20 SUBQ BEDTIME, (Reported) Lorazepam* (Lorazepam*), 2 MG ORAL DAILY, (Reported) Metoclopramide Hcl* (Metoclopramide Hcl*), 5 MG ORAL EVERY 6 HOURS, (Reported) Quetiapine Fumarate* (Seroquel*), 12.5 MG ORAL BID, (Reported) Sucralfate* (Carafate*), 1 GM ORAL BEDTIME, (Reported) [Nephro Aid], 1 TAB PO DAILY, (Reported) Scheduled PRN Acetaminophen* (Acetaminophen 325MG Tablet*), 650 MG ORAL Q4HR PRN for Mild Pain (Pain Scale 1-3), (Reported) Temazepam (Temazepam*), 15 MG ORAL HS PRN for Insomnia, (Reported) Miscellaneous Medications Insulin Aspart (Novolog), 100 UNIT SQ, (Reported) Patient History Healthcare decision maker Resuscitation status Full Code Advanced Directive on File Past Medical/Surgical History Past Medical/Surgical History: (1) S/P AKA (above knee amputation) unilateral (2) Decubital ulcer (3) DVT (deep venous thrombosis) (4) ESRF (end stage renal failure) (5) Diabetes mellitus Review of Systems Constitutional: Reports: no symptoms Eye: Reports: no symptoms ENT: Reports: no symptoms Respiratory: Reports: no symptoms Physical Exam General Appearance: WD/WN Lines, tubes and drains: peripheral HEENT: normocephalic, atraumatic Neck: non-tender, normal alignment Respiratory/Chest: chest wall non-tender, normal breath sounds Breasts: no masses Cardiovascular/Chest: normal peripheral pulses, normal rate Abdomen: normal bowel sounds, soft Genitourinary/Rectal: normal genital exam Extremities: normal range of motion 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 Last 24 Hour Vital Signs Date Time Temp Pulse Resp B/P (MAP) Pulse Ox O2 Delivery O2 Flow Rate FiO2 02/01/19 16:00 98.2 90 17 102/100 (101) 95 02/01/19 13:56 134/83 02/01/19 12:00 98.6 96 20 134/83 (100) 95 02/01/19 09:00 Room Air 02/01/19 08:00 97.8 85 18 133/78 (96) 96 02/01/19 04:57 Room Air 02/01/19 04:00 97.1 87 18 158/83 (108) 95 02/01/19 03:48 97.9 77 19 132/78 99 Room Air 02/01/19 03:42 97.9 77 19 132/78 99 Room Air 02/01/19 01:31 97.9 81 19 132/76 96 Room Air 02/01/19 00:30 97.9 75 19 129/73 95 Room Air 01/31/19 22:30 97.9 71 18 123/72 92 Room Air 01/31/19 22:23 97.9 80 18 123/72 92 Room Air Intake and Output 01/31/19 02/01/19 19:00 07:00 Intake Total 240 ml Balance 240 ml Intake Oral 240 ml # Voids 1 Laboratory Tests Test 01/31/19 23:05 02/01/19 00:08 02/01/19 10:05 White Blood Count 5.4 K/UL (4.8-10.8) Red Blood Count 6.13 M/UL (4.20-5.40) H Hemoglobin 16.6 G/DL (12.0-16.0) H Hematocrit 54.2 % (37.0-47.0) H Mean Corpuscular Volume 88 FL (80-99) Mean Corpuscular Hemoglobin 27.0 PG (27.0-31.0) Mean Corpuscular Hemoglobin Concent 30.6 G/DL (32.0-36.0) L Red Cell Distribution Width 16.1 % (11.6-14.8) H Platelet Count 266 K/UL (150-450) Mean Platelet Volume 10.9 FL (6.5-10.1) H Neutrophils (%) (Auto) 43.3 % (45.0-75.0) L Lymphocytes (%) (Auto) 26.1 % (20.0-45.0) Monocytes (%) (Auto) 11.7 % (1.0-10.0) H Eosinophils (%) (Auto) 16.6 % (0.0-3.0) H Basophils (%) (Auto) 2.3 % (0.0-2.0) H Sodium Level 142 MMOL/L (136-145) Potassium Level 3.2 MMOL/L (3.5-5.1) L Chloride Level 100 MMOL/L (98-107) Carbon Dioxide Level 35 MMOL/L (21-32) H Anion Gap 7 mmol/L (5-15) Blood Urea Nitrogen 21 mg/dL (7-18) H Creatinine 2.9 MG/DL (0.55-1.30) H Estimat Glomerular Filtration Rate 19.6 mL/min (>60) Glucose Level 146 MG/DL (74-106) H Calcium Level 8.7 MG/DL (8.5-10.1) Urine Color Yellow Urine Appearance Cloudy Urine pH 7 (4.5-8.0) Urine Specific [place] 1.005 (1.005-1.035) Urine Protein 4+ (NEGATIVE) H Urine Glucose (UA) Negative (NEGATIVE) Urine Ketones Negative (NEGATIVE) Urine Blood 2+ (NEGATIVE) H Urine Nitrite Negative (NEGATIVE) Urine Bilirubin Negative (NEGATIVE) Urine Urobilinogen 1 MG/DL (0.0-1.0) H Urine Leukocyte Esterase 3+ (NEGATIVE) H Urine RBC 2-4 /HPF (0 - 2) H Urine WBC 10-15 /HPF (0 - 2) H Urine Squamous Epithelial Cells Moderate /LPF (NONE/OCC) H Urine Bacteria Many /HPF (NONE) H Troponin I 0.020 ng/mL (0.000-0.056) Microbiology Date/Time Source Procedure Growth Status 02/01/19 01:35 Rectum Received Height (Feet): 5 Height (Inches): 8.00 Weight (Pounds): 148 Medications Current Medications Medications (Trade) Dose Ordered Sig/Althea Route PRN Reason Start Time Stop Time Status Last Admin Dose Admin Acetaminophen (Tylenol) 650 mg Q4H PRN ORAL Fever 02/01/19 09:15 03/03/19 09:14 Albuterol/ Ipratropium (Albuterol/ Ipratropium) 3 ml Q4H PRN HHN Shortness of Breath 02/01/19 09:15 02/06/19 09:14 Atorvastatin Calcium (Lipitor) 20 mg BEDTIME ORAL 02/01/19 21:00 03/03/19 20:59 Ceftriaxone Sodium 1 gm/ Dextrose 55 ml @ 110 mls/hr Q24H IVPB 02/02/19 01:00 02/09/19 00:59 Dextrose (Dextrose 50%) 25 ml Q30M PRN IV Hypoglycemia 02/01/19 09:15 03/03/19 09:14 Dextrose (Dextrose 50%) 50 ml Q30M PRN IV Hypoglycemia 02/01/19 09:15 03/03/19 09:14 Docusate Sodium (Colace) 100 mg TWICE A DAY ORAL 02/01/19 18:00 03/03/19 17:59 Hydralazine HCl (Apresoline) 25 mg EVERY 8 HOURS ORAL 02/01/19 14:00 03/03/19 13:59 02/01/19 13:56 Ondansetron HCl (Zofran) 4 mg Q6H PRN IVP Nausea & Vomiting 02/01/19 09:15 03/03/19 09:14 Pantoprazole (Protonix) 40 mg Q12HR ORAL 02/01/19 14:15 03/03/19 14:14 02/01/19 15:18 Polyethylene Glycol (Miralax) 17 gm DAILYPRN PRN ORAL Constipation 02/01/19 09:15 03/03/19 09:14 Quetiapine Fumarate (SEROquel) 12.5 mg BID ORAL 02/01/19 18:00 03/03/19 17:59 Sucralfate (Carafate) 1 gm BID ORAL 02/01/19 18:00 03/03/19 20:59 Temazepam (Restoril) 15 mg HSPRN PRN ORAL Insomnia 02/01/19 09:15 02/08/19 09:14 Assessment/Plan Problem List: (1) Vaginal bleeding ICD Codes: N93.9 - Abnormal uterine and vaginal bleeding, unspecified SNOMED: 528756425, 755243500 (2) ESRF (end stage renal failure) ICD Codes: N18.6 - End stage renal disease SNOMED: 48336416 (3) Diabetes mellitus ICD Codes: E11.9 - Type 2 diabetes mellitus without complications SNOMED: 77645368 (4) Lung mass ICD Codes: R91.8 - Other nonspecific abnormal finding of lung field SNOMED: 615602584 (5) S/P AKA (above knee amputation) unilateral ICD Codes: Z89.619 - Acquired absence of unspecified leg above knee SNOMED: 38017958, 73038414, 568617326 Assessment/Plan check h/h prbc prn GI evaluation Hemodialysis sliding scale aspiration precaution' Lit Cerna MD Feb 01, 2019 16:56
--- NOTE | 2019-02-01 17:13 | Internal Med Progress Note ---
Subjective Physician Name Martin Ortiz Attending Physician Lit Cerna MD Current Medications Medications (Trade) Dose Ordered Sig/Althea Route PRN Reason Start Time Stop Time Status Last Admin Dose Admin Acetaminophen (Tylenol) 650 mg Q4H PRN ORAL Fever 02/01/19 09:15 03/03/19 09:14 Albuterol/ Ipratropium (Albuterol/ Ipratropium) 3 ml Q4H PRN HHN Shortness of Breath 02/01/19 09:15 02/06/19 09:14 Atorvastatin Calcium (Lipitor) 20 mg BEDTIME ORAL 02/01/19 21:00 03/03/19 20:59 Ceftriaxone Sodium 1 gm/ Dextrose 55 ml @ 110 mls/hr Q24H IVPB 02/02/19 01:00 02/09/19 00:59 Dextrose (Dextrose 50%) 25 ml Q30M PRN IV Hypoglycemia 02/01/19 09:15 03/03/19 09:14 Dextrose (Dextrose 50%) 50 ml Q30M PRN IV Hypoglycemia 02/01/19 09:15 03/03/19 09:14 Docusate Sodium (Colace) 100 mg TWICE A DAY ORAL 02/01/19 18:00 03/03/19 17:59 Hydralazine HCl (Apresoline) 25 mg EVERY 8 HOURS ORAL 02/01/19 14:00 03/03/19 13:59 02/01/19 13:56 Ondansetron HCl (Zofran) 4 mg Q6H PRN IVP Nausea & Vomiting 02/01/19 09:15 03/03/19 09:14 Pantoprazole (Protonix) 40 mg Q12HR ORAL 02/01/19 14:15 03/03/19 14:14 02/01/19 15:18 Polyethylene Glycol (Miralax) 17 gm DAILYPRN PRN ORAL Constipation 02/01/19 09:15 03/03/19 09:14 Quetiapine Fumarate (SEROquel) 12.5 mg BID ORAL 02/01/19 18:00 03/03/19 17:59 Sucralfate (Carafate) 1 gm BID ORAL 02/01/19 18:00 03/03/19 20:59 Temazepam (Restoril) 15 mg HSPRN PRN ORAL Insomnia 02/01/19 09:15 02/08/19 09:14 Allergies: Coded Allergies: No Known Allergies (Unverified , 09/15/16) Subjective Awake, alert, responsive, denies any chest pain, denies any shortness of breath , denies any vaginal bleeding anymore. Objective Last Vital Signs Date Time Temp Pulse Resp B/P (MAP) Pulse Ox O2 Delivery O2 Flow Rate FiO2 02/01/19 16:00 98.2 90 17 102/100 (101) 95 02/01/19 09:00 Room Air Laboratory Tests Test 01/31/19 23:05 02/01/19 00:08 02/01/19 10:05 White Blood Count 5.4 K/UL (4.8-10.8) Red Blood Count 6.13 M/UL (4.20-5.40) H Hemoglobin 16.6 G/DL (12.0-16.0) H Hematocrit 54.2 % (37.0-47.0) H Mean Corpuscular Volume 88 FL (80-99) Mean Corpuscular Hemoglobin 27.0 PG (27.0-31.0) Mean Corpuscular Hemoglobin Concent 30.6 G/DL (32.0-36.0) L Red Cell Distribution Width 16.1 % (11.6-14.8) H Platelet Count 266 K/UL (150-450) Mean Platelet Volume 10.9 FL (6.5-10.1) H Neutrophils (%) (Auto) 43.3 % (45.0-75.0) L Lymphocytes (%) (Auto) 26.1 % (20.0-45.0) Monocytes (%) (Auto) 11.7 % (1.0-10.0) H Eosinophils (%) (Auto) 16.6 % (0.0-3.0) H Basophils (%) (Auto) 2.3 % (0.0-2.0) H Sodium Level 142 MMOL/L (136-145) Potassium Level 3.2 MMOL/L (3.5-5.1) L Chloride Level 100 MMOL/L (98-107) Carbon Dioxide Level 35 MMOL/L (21-32) H Anion Gap 7 mmol/L (5-15) Blood Urea Nitrogen 21 mg/dL (7-18) H Creatinine 2.9 MG/DL (0.55-1.30) H Estimat Glomerular Filtration Rate 19.6 mL/min (>60) Glucose Level 146 MG/DL (74-106) H Calcium Level 8.7 MG/DL (8.5-10.1) Urine Color Yellow Urine Appearance Cloudy Urine pH 7 (4.5-8.0) Urine Specific [place] 1.005 (1.005-1.035) Urine Protein 4+ (NEGATIVE) H Urine Glucose (UA) Negative (NEGATIVE) Urine Ketones Negative (NEGATIVE) Urine Blood 2+ (NEGATIVE) H Urine Nitrite Negative (NEGATIVE) Urine Bilirubin Negative (NEGATIVE) Urine Urobilinogen 1 MG/DL (0.0-1.0) H Urine Leukocyte Esterase 3+ (NEGATIVE) H Urine RBC 2-4 /HPF (0 - 2) H Urine WBC 10-15 /HPF (0 - 2) H Urine Squamous Epithelial Cells Moderate /LPF (NONE/OCC) H Urine Bacteria Many /HPF (NONE) H Troponin I 0.020 ng/mL (0.000-0.056) Microbiology Date/Time Source Procedure Growth Status 02/01/19 01:35 Rectum Received Intake and Output 01/31/19 02/01/19 19:00 07:00 Intake Total 240 ml Balance 240 ml Intake Oral 240 ml # Voids 1 Objective General: No acute distress, awake and alert HEENT: NCAT, sclera anicteric, PERRL, EOMI. Neck: Supple, no significant jugular venous distention, Lungs: Good inspiratory effort, clear to auscultation bilaterally, no Wheeze or Rales. Heart: Regular rate and rhythm, normal S1/S2, no murmur. Abdomen: soft, nontender, nondistended. Normoactive bowel sounds. Extremities: No Cyanosis , clubbing or edema, Right LE AKA, Left UE AVF functional. Neuro: A&O x 3, Able to move all extremities Skin: warm, no rash. Psych: Normal mood and affect Assessment/Plan Assessment/Plan Vaginal bleeding ESRD / HD : M W Fr Acute UTI Type 2 diabetes. Hypertension. Anemia of chronic renal disease Hypercholesterolemia. Peripheral vascular disease. Alzheimer's dementia. Lung Mass S/P Right AKA. Plan: Continue on the dialysis as per nephrology recommendation. Broad-spectrum antibiotics with Rocephin for treatment of the UTI DVT prophylaxis with SCD. Monitor laboratory as well as culture. PT mobility Martin Ortiz MD Feb 01, 2019 17:13
[2019-02-01] MEDS: Docusate 100mg cap ORAL SCH (17:16)
[2019-02-01] MEDS: Sucralfate 1gm tab ORAL SCH (17:16)
--- NOTE | 2019-02-01 19:19 | NUR ---
HAND-OFF: Report given to MAYO parra.
--- NOTE | 2019-02-01 20:00 | NUR ---
NURSE NOTES: Received patient comfortably resting in bed without complaints,
[2019-02-01] MEDS ORDERED: Atorvastatin 20mg tab ORAL SCH (21:00)
[2019-02-01] MEDS ORDERED: Heparin 5000 units/ml inj SUBQ SCH (21:00)
[2019-02-01] MEDS ORDERED: Sucralfate 1gm tab ORAL SCH (21:00)
--- NOTE | 2019-02-01 21:30 | Consultation ---
DATE OF CONSULTATION: 02/01/2019 CONSULTING PHYSICIAN: Fabrizio Herrera M.D. CHIEF COMPLAINT: Vaginal bleeding. HISTORY OF PRESENT ILLNESS: This is a poor historian with numerous medical problems, was sent from the long term because there was blood in the diaper. There is a question of vaginal bleeding versus GI bleeding. PAST MEDICAL HISTORY: 1. Decubital ulcerations requiring debridement. 2. End-stage renal disease, on hemodialysis. 3. Diabetes. 4. Peripheral vascular disease requiring AKA on the right side. 5. Dementia. 6. Chronic anemia. 7. Hypertension. 8. Hypercholesterolemia. PAST SURGICAL HISTORY: Right AKA. ALLERGIES: No known drug allergies. MEDICATIONS: Please see medication reconciliation list. FAMILY HISTORY: Noncontributory. REVIEW OF SYSTEMS: Limited. PHYSICAL EXAMINATION: VITAL SIGNS: Temperature is 98.6, pulse is 96, respirations 20, blood pressure is 134/80. HEENT: Normocephalic and atraumatic. No scleral icterus. NECK: Supple. No obvious evidence of lymphadenopathy. CARDIOVASCULAR: Regular rate and rhythm. Plus S1 and S2. No obvious murmur. LUNGS: Clear to auscultation bilaterally. ABDOMEN: Soft and nontender. No rebound. No guarding. No distention. EXTREMITIES: The patient has evidence of right AKA, otherwise no cyanosis. No clubbing. No edema. LABORATORY DATA: White count is 5.4, hemoglobin 16, hematocrit 54, platelet count is 266,000. Chem-7, sodium is 142, potassium 3.2 BUN is 21, creatinine is 2.9. Glucose is 146. ASSESSMENT AND PLAN: A 68-year-old female with numerous medical problems as dictated above, presents with possible vaginal bleeding. According to the patient, she has not had any bleeding since admission. Her hemoglobin has been very stable. The patient had a stool OB positive in April 2017. I do not see any prior history of endoscopy, no colonoscopy. Our plan will be to monitor H and H, transfuse as needed, to keep hemoglobin above 7. The patient most probably would benefit from gynecological evaluation for vaginal bleeding. We are going to send the stool for OB. If the stool OB comes back positive and there was no obvious vaginal bleeding, we will consider colonoscopy. I want to thank Dr. Cerna for this kind referral. Fabrizio Porfirio Herrera DR: ASHLEY JOB#: [id number] CC: Lit Cerna M.D.; Fax#: [phone]
[2019-02-02] VITALS: BP 140/78
[2019-02-02] MEDS: cefTRIAXone 1 GM in D5W 55 ML IVPB SCH (00:32)
[2019-02-02 04:03] VITALS: BP 110/72
[2019-02-02] MEDS: HydrALAZINE 25mg tab ORAL SCH ×2 (05:50→14:28)
[2019-02-02 06:55] LABS: BASOPHILS % (AUTO) 1.9 % (0.0-2.0); EOSINOPHILS % (AUTO) 12.1 % (0.0-3.0); HEMATOCRIT 50.2 % (37.0-47.0); HEMOGLOBIN 15.6 G/DL (12.0-16.0); LYMPHOCYTES % (AUTO) 24.9 % (20.0-45.0); MEAN CORPUSCULAR VOLUME 88 FL (80-99); MONOCYTES % (AUTO) 10.8 % (1.0-10.0); NEUTROPHILS % (AUTO) 50.3 % (45.0-75.0); PLATELET COUNT 248 K/UL (150-450); RED BLOOD COUNT 5.73 M/UL (4.20-5.40); RED CELL DISTRIBUTION WIDTH 16.6 % (11.6-14.8); WHITE BLOOD COUNT 5.1 K/UL (4.8-10.8)
--- NOTE | 2019-02-02 07:09 | NUR ---
HAND-OFF: Report given to Cornell Preston RN.
[2019-02-02 07:14] LABS: ALANINE AMINOTRANSFERASE 19 U/L (12-78); ALBUMIN/GLOBULIN RATIO 0.8 (1.0-2.7); ALKALINE PHOSPHATASE 142 U/L (46-116); ANION GAP 7 mmol/L (5-15); ASPARTATE AMINO TRANSFERASE 16 U/L (15-37); BILIRUBIN,TOTAL 0.3 MG/DL (0.2-1.0); BLOOD UREA NITROGEN 45 mg/dL (7-18); CALCIUM 8.6 MG/DL (8.5-10.1); CARBON DIOXIDE 30 MMOL/L (21-32); CHLORIDE 103 MMOL/L (98-107); CHOLESTEROL 151 MG/DL (< 200); CREATININE 3.9 MG/DL (0.55-1.30); GAMMA GLUTAMYL TRANSPEPTIDASE 15 U/L (5-85); HDL CHOLESTEROL 56 MG/DL (40-60); PHOSPHORUS 3.9 MG/DL (2.5-4.9); POTASSIUM 3.2 MMOL/L (3.5-5.1); SODIUM 140 MMOL/L (136-145); TRIGLYCERIDES 59 MG/DL (30-150)
--- NOTE | 2019-02-02 07:20 | NUR ---
NURSE NOTES: Received patient in bed, awake, verbally responsive, denies any pain or discomfort. Patient is right AKA and left AV shunt with (+) bruit and thrill.No active bleeding @ this time. Bed is in lowest position and locked. Call light within reach. Will continue plan of care.
[2019-02-02 08:00] VITALS: BP 118/69
[2019-02-02] MEDS: Docusate 100mg cap ORAL SCH ×2 (08:33→17:28)
[2019-02-02] MEDS: Sucralfate 1gm tab ORAL SCH ×2 (08:33→17:27)
--- NOTE | 2019-02-02 10:00 | NUR ---
NURSE NOTES: No vaginal bleeding noted.
--- NOTE | 2019-02-02 11:40 | NUR ---
RD ASSESSMENT & RECOMMENDATIONS SEE CARE ACTIVITY FOR COMPLETE ASSESSMENT DAILY ESTIMATED NEEDS: Needs based on ESRD W/ HD, wound/ 65.8kg 27-32 kcals/kg 2823-2598 total kcals 1.25-1.8 g protein/kg 82-118 g total protein Fluid per MD, on HD NUTRITION DIAGNOSIS: (1) Increased kcal/pro needs R/T renal dysfunction, wound healing as evidenced by pt w/ ESRD dx, on HD and with undstageable sacral wound. CURRENT DIET: CCHO MED/ RENAL ground PO DIET RECOMMENDATIONS: RENAL + CCHO MED DIET + NEPRO 1 can daily/ texture per MANAGEMENT LIAISON ADDITIONAL RECOMMENDATIONS: * Nephrovite 1 tab QD + Homar 1pkt BID for wound healing * Obtain dry weight (after dialysis) on CALIBRATED bedscale * MANAGEMENT LIAISON eval for appropriate texture, h/o CVA w/ dysphagia * Monitor renal fxn and lytes * WC eval
--- NOTE | 2019-02-02 11:47 | General Progress Note ---
Assessment/Plan Assessment/Plan 1. Decubital ulcerations requiring debridement. 2. End-stage renal disease, on hemodialysis. 3. Diabetes. 4. Peripheral vascular disease requiring AKA on the right side. 5. Dementia. 6. Chronic anemia. 7. Hypertension. 8. Hypercholesterolemia 9. vaginal bleed stable H&H no obvious GIB per nurses fu H&H>>> stable on diet fu trans vag us Subjective ROS Limited/Unobtainable: Yes Allergies: Coded Allergies: No Known Allergies (Unverified , 09/15/16) Subjective no obvious GIB Objective Last 24 Hour Vital Signs Date Time Temp Pulse Resp B/P (MAP) Pulse Ox O2 Delivery O2 Flow Rate FiO2 02/02/19 09:00 Room Air 02/02/19 08:00 97.8 80 18 118/69 (85) 93 02/02/19 05:50 110/72 02/02/19 04:03 97.9 85 18 110/72 (85) 93 02/02/19 00:00 96.6 90 18 140/78 (98) 95 02/01/19 21:32 104/66 02/01/19 21:00 Room Air 02/01/19 20:42 90 17 Room Air 21 02/01/19 20:00 98.1 101 17 104/66 (79) 92 02/01/19 16:00 98.2 90 17 102/100 (101) 95 02/01/19 13:56 134/83 02/01/19 12:00 98.6 96 20 134/83 (100) 95 Intake and Output 02/01/19 02/02/19 19:00 07:00 Intake Total 240 ml 55 ml Balance 240 ml 55 ml Intake Oral 240 ml IV Total 55 ml # Voids 1 2 # Bowel Movements 2 2 Laboratory Tests 02/02/19 05:10: White Blood Count 5.1, Red Blood Count 5.73H, Hemoglobin 15.6, Hematocrit 50.2H , Mean Corpuscular Volume 88, Mean Corpuscular Hemoglobin 27.2, Mean Corpuscular Hemoglobin Concent 31.1L, Red Cell Distribution Width 16.6H, Platelet Count 248, Mean Platelet Volume 12.0H, Neutrophils (%) (Auto) 50.3, Lymphocytes (%) (Auto) 24.9, Monocytes (%) (Auto) 10.8H, Eosinophils (%) (Auto) 12.1H, Basophils (%) (Auto) 1.9, Sodium Level 140, Potassium Level 3.2L, Chloride Level 103, Carbon Dioxide Level 30, Anion Gap 7, Blood Urea Nitrogen 45H, Creatinine 3.9H, Estimat Glomerular Filtration Rate 13.9, Glucose Level 113H, Hemoglobin A1c 5.6, Uric Acid 4.6, Calcium Level 8.6, Phosphorus Level 3.9 , Magnesium Level 1.9, Total Bilirubin 0.3, Gamma Glutamyl Transpeptidase 15, Aspartate Amino Transf (AST/SGOT) 16, Alanine Aminotransferase (ALT/SGPT) 19, Alkaline Phosphatase 142H, Pro-B-Type Natriuretic Peptide 3996H, Total Protein 6.6, Albumin 3.0L, Globulin 3.6, Albumin/Globulin Ratio 0.8L, Triglycerides Level 59, Cholesterol Level 151, LDL Cholesterol 71, HDL Cholesterol 56, Cholesterol/HDL Ratio 2.7L, Vitamin B12 Level 904, Folate 16.5, Thyroid Stimulating Hormone (TSH) 0.246L Height (Feet): 5 Height (Inches): 8.00 Weight (Pounds): 143 General Appearance: alert EENT: normal ENT inspection Neck: supple Cardiovascular: normal rate Respiratory/Chest: lungs clear Abdomen: normal bowel sounds, non tender, soft Extremities: non-tender Fabrizio Herrera MD Feb 02, 2019 11:47
[2019-02-02 12:00] VITALS: BP 119/68
--- NOTE | 2019-02-02 13:50 | NUR ---
NURSE NOTES: Dr. Motta aware of potassium level of 3.2. Dr. Motta will put order.
--- NOTE | 2019-02-02 14:30 | NUR ---
NURSE NOTES: Given potassium 40 MEQ as ordered.
--- NOTE | 2019-02-02 15:01 | Internal Med Progress Note ---
Subjective Physician Name AngelMartin Attending Physician Lit Cerna MD Current Medications Medications (Trade) Dose Ordered Sig/Althea Route PRN Reason Start Time Stop Time Status Last Admin Dose Admin Acetaminophen (Tylenol) 650 mg Q4H PRN ORAL Fever 02/01/19 09:15 03/03/19 09:14 Albuterol/ Ipratropium (Albuterol/ Ipratropium) 3 ml Q4H PRN HHN Shortness of Breath 02/01/19 09:15 02/06/19 09:14 Atorvastatin Calcium (Lipitor) 20 mg BEDTIME ORAL 02/01/19 21:00 03/03/19 20:59 02/01/19 21:31 Ceftriaxone Sodium 1 gm/ Dextrose 55 ml @ 110 mls/hr Q24H IVPB 02/02/19 01:00 02/09/19 00:59 02/02/19 00:32 Dextrose (Dextrose 50%) 25 ml Q30M PRN IV Hypoglycemia 02/01/19 09:15 03/03/19 09:14 Dextrose (Dextrose 50%) 50 ml Q30M PRN IV Hypoglycemia 02/01/19 09:15 03/03/19 09:14 Docusate Sodium (Colace) 100 mg TWICE A DAY ORAL 02/01/19 18:00 03/03/19 17:59 02/02/19 08:33 Hydralazine HCl (Apresoline) 25 mg EVERY 8 HOURS ORAL 02/01/19 14:00 03/03/19 13:59 02/02/19 14:28 Ondansetron HCl (Zofran) 4 mg Q6H PRN IVP Nausea & Vomiting 02/01/19 09:15 03/03/19 09:14 Pantoprazole (Protonix) 40 mg Q12HR ORAL 02/01/19 14:15 03/03/19 14:14 02/02/19 08:33 Polyethylene Glycol (Miralax) 17 gm DAILYPRN PRN ORAL Constipation 02/01/19 09:15 03/03/19 09:14 Quetiapine Fumarate (SEROquel) 12.5 mg BID ORAL 02/01/19 18:00 03/03/19 17:59 02/02/19 08:33 Sucralfate (Carafate) 1 gm BID ORAL 3/16/19 18:00 03/03/19 20:59 02/02/19 08:33 Temazepam (Restoril) 15 mg HSPRN PRN ORAL Insomnia 02/01/19 09:15 02/08/19 09:14 Allergies: Coded Allergies: No Known Allergies (Unverified , 09/15/16) Subjective Awake, alert, responsive, denies any chest pain, denies any shortness of breath , denies any vaginal bleeding anymore. Objective Last Vital Signs Date Time Temp Pulse Resp B/P (MAP) Pulse Ox O2 Delivery O2 Flow Rate FiO2 02/02/19 14:28 122/67 02/02/19 12:00 97.8 76 18 94 02/02/19 09:00 Room Air 02/01/19 20:42 21 Laboratory Tests Test 02/02/19 05:10 White Blood Count 5.1 K/UL (4.8-10.8) Red Blood Count 5.73 M/UL (4.20-5.40) H Hemoglobin 15.6 G/DL (12.0-16.0) Hematocrit 50.2 % (37.0-47.0) H Mean Corpuscular Volume 88 FL (80-99) Mean Corpuscular Hemoglobin 27.2 PG (27.0-31.0) Mean Corpuscular Hemoglobin Concent 31.1 G/DL (32.0-36.0) L Red Cell Distribution Width 16.6 % (11.6-14.8) H Platelet Count 248 K/UL (150-450) Mean Platelet Volume 12.0 FL (6.5-10.1) H Neutrophils (%) (Auto) 50.3 % (45.0-75.0) Lymphocytes (%) (Auto) 24.9 % (20.0-45.0) Monocytes (%) (Auto) 10.8 % (1.0-10.0) H Eosinophils (%) (Auto) 12.1 % (0.0-3.0) H Basophils (%) (Auto) 1.9 % (0.0-2.0) Sodium Level 140 MMOL/L (136-145) Potassium Level 3.2 MMOL/L (3.5-5.1) L Chloride Level 103 MMOL/L (98-107) Carbon Dioxide Level 30 MMOL/L (21-32) Anion Gap 7 mmol/L (5-15) Blood Urea Nitrogen 45 mg/dL (7-18) H Creatinine 3.9 MG/DL (0.55-1.30) H Estimat Glomerular Filtration Rate 13.9 mL/min (>60) Glucose Level 113 MG/DL (74-106) H Hemoglobin A1c 5.6 % (4.3-6.0) Uric Acid 4.6 MG/DL (2.6-7.2) Calcium Level 8.6 MG/DL (8.5-10.1) Phosphorus Level 3.9 MG/DL (2.5-4.9) Magnesium Level 1.9 MG/DL (1.8-2.4) Total Bilirubin 0.3 MG/DL (0.2-1.0) Gamma Glutamyl Transpeptidase 15 U/L (5-85) Aspartate Amino Transf (AST/SGOT) 16 U/L (15-37) Alanine Aminotransferase (ALT/SGPT) 19 U/L (12-78) Alkaline Phosphatase 142 U/L (46-116) H Pro-B-Type Natriuretic Peptide 3996 pg/mL (0-125) H Total Protein 6.6 G/DL (6.4-8.2) Albumin 3.0 G/DL (3.4-5.0) L Globulin 3.6 g/dL Albumin/Globulin Ratio 0.8 (1.0-2.7) L Triglycerides Level 59 MG/DL (30-150) Cholesterol Level 151 MG/DL (< 200) LDL Cholesterol 71 mg/dL (<100) HDL Cholesterol 56 MG/DL (40-60) Cholesterol/HDL Ratio 2.7 (3.3-4.4) L Vitamin B12 Level 904 PG/ML (193-986) Folate 16.5 NG/ML (8.6-58.9) Thyroid Stimulating Hormone (TSH) 0.246 uiU/mL (0.358-3.740) Microbiology Date/Time Source Procedure Growth Status 02/01/19 00:08 Urine,Clean Catch Urine Culture - Preliminary Gram Negative Irineo Resulted 02/01/19 01:35 Rectum Received Intake and Output 02/01/19 02/02/19 19:00 07:00 Intake Total 240 ml 55 ml Balance 240 ml 55 ml Intake Oral 240 ml IV Total 55 ml # Voids 1 2 # Bowel Movements 2 2 Objective General: No acute distress, awake and alert HEENT: NCAT, sclera anicteric, PERRL, EOMI. Neck: Supple, no significant jugular venous distention, Lungs: Good inspiratory effort, clear to auscultation bilaterally, no Wheeze or Rales. Heart: Regular rate and rhythm, normal S1/S2, no murmur. Abdomen: soft, nontender, nondistended. Normoactive bowel sounds. Extremities: No Cyanosis , clubbing or edema, Right LE AKA, Left UE AVF functional. Neuro: A&O x 3, Able to move all extremities Skin: warm, no rash. Psych: Normal mood and affect Assessment/Plan Assessment/Plan Vaginal bleeding ESRD / HD : M W Fr Acute UTI Type 2 diabetes. Hypertension. Anemia of chronic renal disease Hypercholesterolemia. Peripheral vascular disease. Alzheimer's dementia. Lung Mass S/P Right AKA. Plan: Continue on the dialysis as per nephrology recommendation. Broad-spectrum antibiotics with Rocephin for treatment of the UTI DVT prophylaxis with SCD. Monitor laboratory as well as culture. PT mobilt DC Planning to [facility] Martin Ortiz MD Feb 02, 2019 15:01
[2019-02-02 16:00] VITALS: BP 112/62
--- NOTE | 2019-02-02 17:03 | Pulmonology Progress Note ---
Assessment/Plan Problems: (1) Vaginal bleeding (2) ESRF (end stage renal failure) (3) Diabetes mellitus (4) Lung mass (5) S/P AKA (above knee amputation) unilateral Assessment/Plan check h/h, stable prbc prn GI evaluation appreciated Hemodialysis by nephrology sliding scale aspiration precaution' Subjective ROS Limited/Unobtainable: No Interval Events: awake, comfortable Constitutional: Reports: no symptoms Allergies: Coded Allergies: No Known Allergies (Unverified , 09/15/16) Objective Last 24 Hour Vital Signs Date Time Temp Pulse Resp B/P (MAP) Pulse Ox O2 Delivery O2 Flow Rate FiO2 02/02/19 14:28 122/67 02/02/19 12:00 97.8 76 18 119/68 (85) 94 02/02/19 09:00 Room Air 02/02/19 08:00 97.8 80 18 118/69 (85) 93 02/02/19 05:50 110/72 02/02/19 04:03 97.9 85 18 110/72 (85) 93 02/02/19 00:00 96.6 90 18 140/78 (98) 95 02/01/19 21:32 104/66 02/01/19 21:00 Room Air 02/01/19 20:42 90 17 Room Air 21 02/01/19 20:00 98.1 101 17 104/66 (79) 92 Intake and Output 02/01/19 02/02/19 19:00 07:00 Intake Total 240 ml 55 ml Balance 240 ml 55 ml Intake Oral 240 ml IV Total 55 ml # Voids 1 2 # Bowel Movements 2 2 General Appearance: WD/WN Respiratory/Chest: chest wall non-tender, lungs clear, normal breath sounds Breasts: no masses Cardiovascular: normal peripheral pulses, normal rate, no JVD Abdomen: soft, non tender, no mass Extremities: no cyanosis Skin: no rash Microbiology Date/Time Source Procedure Growth Status 02/01/19 00:08 Urine,Clean Catch Urine Culture - Preliminary Gram Negative Irineo Resulted 02/01/19 01:35 Rectum Received Laboratory Tests 02/02/19 05:10: White Blood Count 5.1, Red Blood Count 5.73H, Hemoglobin 15.6, Hematocrit 50.2H , Mean Corpuscular Volume 88, Mean Corpuscular Hemoglobin 27.2, Mean Corpuscular Hemoglobin Concent 31.1L, Red Cell Distribution Width 16.6H, Platelet Count 248, Mean Platelet Volume 12.0H, Neutrophils (%) (Auto) 50.3, Lymphocytes (%) (Auto) 24.9, Monocytes (%) (Auto) 10.8H, Eosinophils (%) (Auto) 12.1H, Basophils (%) (Auto) 1.9, Sodium Level 140, Potassium Level 3.2L, Chloride Level 103, Carbon Dioxide Level 30, Anion Gap 7, Blood Urea Nitrogen 45H, Creatinine 3.9H, Estimat Glomerular Filtration Rate 13.9, Glucose Level 113H, Hemoglobin A1c 5.6, Uric Acid 4.6, Calcium Level 8.6, Phosphorus Level 3.9 , Magnesium Level 1.9, Total Bilirubin 0.3, Gamma Glutamyl Transpeptidase 15, Aspartate Amino Transf (AST/SGOT) 16, Alanine Aminotransferase (ALT/SGPT) 19, Alkaline Phosphatase 142H, Pro-B-Type Natriuretic Peptide 3996H, Total Protein 6.6, Albumin 3.0L, Globulin 3.6, Albumin/Globulin Ratio 0.8L, Triglycerides Level 59, Cholesterol Level 151, LDL Cholesterol 71, HDL Cholesterol 56, Cholesterol/HDL Ratio 2.7L, Vitamin B12 Level 904, Folate 16.5, Thyroid Stimulating Hormone (TSH) 0.246L Current Medications Medications (Trade) Dose Ordered Sig/Althea Route PRN Reason Start Time Stop Time Status Last Admin Dose Admin Acetaminophen (Tylenol) 650 mg Q4H PRN ORAL Fever 02/01/19 09:15 03/03/19 09:14 Albuterol/ Ipratropium (Albuterol/ Ipratropium) 3 ml Q4H PRN HHN Shortness of Breath 02/01/19 09:15 02/06/19 09:14 Atorvastatin Calcium (Lipitor) 20 mg BEDTIME ORAL 02/01/19 21:00 03/03/19 20:59 02/01/19 21:31 Ceftriaxone Sodium 1 gm/ Dextrose 55 ml @ 110 mls/hr Q24H IVPB 02/02/19 01:00 02/09/19 00:59 02/02/19 00:32 Dextrose (Dextrose 50%) 25 ml Q30M PRN IV Hypoglycemia 02/01/19 09:15 03/03/19 09:14 Dextrose (Dextrose 50%) 50 ml Q30M PRN IV Hypoglycemia 02/01/19 09:15 03/03/19 09:14 Docusate Sodium (Colace) 100 mg TWICE A DAY ORAL 02/01/19 18:00 03/03/19 17:59 02/02/19 08:33 Hydralazine HCl (Apresoline) 25 mg EVERY 8 HOURS ORAL 02/01/19 14:00 03/03/19 13:59 02/02/19 14:28 Ondansetron HCl (Zofran) 4 mg Q6H PRN IVP Nausea & Vomiting 02/01/19 09:15 03/03/19 09:14 Pantoprazole (Protonix) 40 mg Q12HR ORAL 02/01/19 14:15 03/03/19 14:14 02/02/19 08:33 Polyethylene Glycol (Miralax) 17 gm DAILYPRN PRN ORAL Constipation 02/01/19 09:15 03/03/19 09:14 Quetiapine Fumarate (SEROquel) 12.5 mg BID ORAL 02/01/19 18:00 03/03/19 17:59 02/02/19 08:33 Sucralfate (Carafate) 1 gm BID ORAL 02/01/19 18:00 03/03/19 20:59 02/02/19 08:33 Temazepam (Restoril) 15 mg HSPRN PRN ORAL Insomnia 02/01/19 09:15 02/08/19 09:14 Lit Cerna MD Feb 02, 2019 17:03
--- NOTE | 2019-02-02 17:13 | Nephrology Progress Note ---
Assessment/Plan Problem List: (1) ESRF (end stage renal failure) (2) Hypotension (3) UTI (urinary tract infection) Assessment ESRD : M W Fr UTI ? Vaginal vs Rectal Bleed other conditions Type 2 diabetes. Hypertension. now BP low h/o Anemia of chronic renal disease Hypercholesterolemia. Peripheral vascular disease. Alzheimer's dementia. ?? LUNG Pathology PAST SURGICAL HISTORY: Significant for: 1. Right [id number]-[id number] amputation. 2. Open reduction internal fixation of the left femoral neck on 07/20/2016. Plan K supplement NS bolus check retic count and stool for ob continue meds monitor H&H next HD as needed Rocephin for UTI per consultants Subjective ROS Limited/Unobtainable: No Constitutional: Reports: malaise Objective Objective Last 24 Hour Vital Signs Date Time Temp Pulse Resp B/P (MAP) Pulse Ox O2 Delivery O2 Flow Rate FiO2 02/02/19 16:00 98.3 71 19 112/62 (79) 94 02/02/19 14:28 122/67 02/02/19 12:00 97.8 76 18 119/68 (85) 94 02/02/19 09:00 Room Air 02/02/19 08:00 97.8 80 18 118/69 (85) 93 02/02/19 05:50 110/72 02/02/19 04:03 97.9 85 18 110/72 (85) 93 02/02/19 00:00 96.6 90 18 140/78 (98) 95 02/01/19 21:32 104/66 02/01/19 21:00 Room Air 02/01/19 20:42 90 17 Room Air 21 02/01/19 20:00 98.1 101 17 104/66 (79) 92 Intake and Output 02/01/19 02/02/19 19:00 07:00 Intake Total 240 ml 55 ml Balance 240 ml 55 ml Intake Oral 240 ml IV Total 55 ml # Voids 1 2 # Bowel Movements 2 2 Laboratory Tests 02/02/19 05:10: White Blood Count 5.1, Red Blood Count 5.73H, Hemoglobin 15.6, Hematocrit 50.2H , Mean Corpuscular Volume 88, Mean Corpuscular Hemoglobin 27.2, Mean Corpuscular Hemoglobin Concent 31.1L, Red Cell Distribution Width 16.6H, Platelet Count 248, Mean Platelet Volume 12.0H, Neutrophils (%) (Auto) 50.3, Lymphocytes (%) (Auto) 24.9, Monocytes (%) (Auto) 10.8H, Eosinophils (%) (Auto) 12.1H, Basophils (%) (Auto) 1.9, Sodium Level 140, Potassium Level 3.2L, Chloride Level 103, Carbon Dioxide Level 30, Anion Gap 7, Blood Urea Nitrogen 45H, Creatinine 3.9H, Estimat Glomerular Filtration Rate 13.9, Glucose Level 113H, Hemoglobin A1c 5.6, Uric Acid 4.6, Calcium Level 8.6, Phosphorus Level 3.9 , Magnesium Level 1.9, Total Bilirubin 0.3, Gamma Glutamyl Transpeptidase 15, Aspartate Amino Transf (AST/SGOT) 16, Alanine Aminotransferase (ALT/SGPT) 19, Alkaline Phosphatase 142H, Pro-B-Type Natriuretic Peptide 3996H, Total Protein 6.6, Albumin 3.0L, Globulin 3.6, Albumin/Globulin Ratio 0.8L, Triglycerides Level 59, Cholesterol Level 151, LDL Cholesterol 71, HDL Cholesterol 56, Cholesterol/HDL Ratio 2.7L, Vitamin B12 Level 904, Folate 16.5, Thyroid Stimulating Hormone (TSH) 0.246L Height (Feet): 5 Height (Inches): 8.00 Weight (Pounds): 143 General Appearance: no apparent distress Cardiovascular: normal rate Respiratory/Chest: decreased breath sounds Abdomen: soft Marques Motta MD Feb 02, 2019 17:13
--- NOTE | 2019-02-02 19:23 | NUR ---
HAND-OFF: Report given to Amy and endorsed to collect stool for OB if possible and follow up with for dialysis for tomorrow.
[2019-02-02 20:00] VITALS: BP 117/67
--- NOTE | 2019-02-02 20:00 | NUR ---
NURSE NOTES: Received patient comfortably sleeping,no complaints,kept clean and dry.
[2019-02-02] MEDS: HydrALAZINE 10mg Tab ORAL SCH (21:21)
[2019-02-03] MEDS: cefTRIAXone 1 GM in D5W 55 ML IVPB SCH (01:07)
[2019-02-03 04:00] VITALS: BP 129/67
[2019-02-03] MEDS: HydrALAZINE 10mg Tab ORAL SCH ×3 (05:05→21:10)
[2019-02-03 06:37] LABS: EOSINOPHILS % (AUTO) 13.5 % (0.0-3.0); HEMATOCRIT 46.5 % (37.0-47.0); HEMOGLOBIN 14.5 G/DL (12.0-16.0); MEAN CORPUSCULAR VOLUME 89 FL (80-99); NEUTROPHILS % (AUTO) 43.5 % (45.0-75.0); PLATELET COUNT 256 K/UL (150-450); RED BLOOD COUNT 5.25 M/UL (4.20-5.40); RED CELL DISTRIBUTION WIDTH 15.8 % (11.6-14.8); WHITE BLOOD COUNT 4.9 K/UL (4.8-10.8)
[2019-02-03 07:10] LABS: ALANINE AMINOTRANSFERASE 17 U/L (12-78); ALBUMIN 3.1 G/DL (3.4-5.0); ALBUMIN/GLOBULIN RATIO 0.9 (1.0-2.7); ALKALINE PHOSPHATASE 140 U/L (46-116); ANION GAP 12 mmol/L (5-15); ASPARTATE AMINO TRANSFERASE 17 U/L (15-37); BILIRUBIN,TOTAL 0.3 MG/DL (0.2-1.0); BLOOD UREA NITROGEN 52 mg/dL (7-18); CALCIUM 8.7 MG/DL (8.5-10.1); CARBON DIOXIDE 27 MMOL/L (21-32); CHLORIDE 103 MMOL/L (98-107); CREATININE 4.3 MG/DL (0.55-1.30); PHOSPHORUS 4.2 MG/DL (2.5-4.9); POTASSIUM 3.5 MMOL/L (3.5-5.1); SODIUM 142 MMOL/L (136-145)
--- NOTE | 2019-02-03 07:28 | NUR ---
HAND-OFF: Report given to NELSON Victor.
[2019-02-03 08:00] VITALS: BP 131/74
[2019-02-03] MEDS: Sucralfate 1gm tab ORAL SCH ×2 (08:44→17:50)
[2019-02-03] MEDS: Docusate 100mg cap ORAL SCH ×3 (08:44→17:24)
--- NOTE | 2019-02-03 10:44 | NUR ---
RECEIVED PATIENT IN BED AWAKE.. NO RESPIRATORY DISTRESS OR SOB. CHECKED FOR ANY VAGINAL BLEEDING NONE.. WILL CONTINUE TO MONITOR.. DENIES NO ABDOMEN DISCOMFORT OR PAIN ... TOLERATED ALL P.O. MEDICATION NOTED CALL LIGHT IN REACH
--- NOTE | 2019-02-03 11:28 | GI Progress Note ---
Assessment/Plan Problems: (1) Vaginal bleeding ICD Codes: N93.9 - Abnormal uterine and vaginal bleeding, unspecified SNOMED: 025110576, 877895620 (2) Anemia ICD Codes: D64.9 - Anemia, unspecified SNOMED: 143243998 (3) Hemorrhagic shock ICD Codes: R57.8 - Hemorrhagic shock SNOMED: 018425 (4) Gastric polyp ICD Codes: K31.7 - Polyp of stomach and duodenum SNOMED: 88862919 Status: unchanged Status Narrative Discussed with Dr. Herrera. Assessment/Plan Assessment/Plan 1. Decubital ulcerations requiring debridement. 2. End-stage renal disease, on hemodialysis. 3. Diabetes. 4. Peripheral vascular disease requiring AKA on the right side. 5. Dementia. 6. Chronic anemia. 7. Hypertension. 8. Hypercholesterolemia 9. vaginal bleed stable H&H no obvious GIB per nurses fu H&H>>> stable on diet fu trans vag us follow labs The patient was seen and examined at bedside and all new and available data was reviewed in the patients chart. I agree with the above findings, impression and plan. (Patient seen earlier today. Signature stamp does not reflect patient encounter time.). - Fabrizio Herrera MD Subjective Subjective Overall states he is okay Still having vaginal bleed Tolerating diet Denies any constipation Objective Last 24 Hour Vital Signs Date Time Temp Pulse Resp B/P (MAP) Pulse Ox O2 Delivery O2 Flow Rate FiO2 02/03/19 09:00 Room Air 02/03/19 08:00 97.5 92 131/74 (93) 02/03/19 04:00 98.2 77 18 129/67 (87) 94 02/03/19 00:22 74 20 Room Air 21 02/02/19 21:21 117/67 02/02/19 21:00 Room Air 02/02/19 20:00 97.9 73 18 117/67 (84) 95 02/02/19 16:00 98.3 71 19 112/62 (79) 94 02/02/19 14:28 122/67 02/02/19 12:00 97.8 76 18 119/68 (85) 94 Intake and Output 02/02/19 02/03/19 19:00 07:00 Intake Total 980 ml 200 ml Balance 980 ml 200 ml Intake Oral 480 ml 200 ml IV Total 500 ml # Voids 1 Laboratory Tests Test 02/03/19 05:30 White Blood Count 4.9 K/UL (4.8-10.8) Red Blood Count 5.25 M/UL (4.20-5.40) Hemoglobin 14.5 G/DL (12.0-16.0) Hematocrit 46.5 % (37.0-47.0) Mean Corpuscular Volume 89 FL (80-99) Mean Corpuscular Hemoglobin 27.7 PG (27.0-31.0) Mean Corpuscular Hemoglobin Concent 31.2 G/DL (32.0-36.0) L Red Cell Distribution Width 15.8 % (11.6-14.8) H Platelet Count 256 K/UL (150-450) Mean Platelet Volume 11.7 FL (6.5-10.1) H Neutrophils (%) (Auto) 43.5 % (45.0-75.0) L Lymphocytes (%) (Auto) 30.0 % (20.0-45.0) Monocytes (%) (Auto) 10.0 % (1.0-10.0) Eosinophils (%) (Auto) 13.5 % (0.0-3.0) H Basophils (%) (Auto) 3.0 % (0.0-2.0) H Reticulocyte Count 0.4 % (0.0-2.0) Sodium Level 142 MMOL/L (136-145) Potassium Level 3.5 MMOL/L (3.5-5.1) Chloride Level 103 MMOL/L (98-107) Carbon Dioxide Level 27 MMOL/L (21-32) Anion Gap 12 mmol/L (5-15) Blood Urea Nitrogen 52 mg/dL (7-18) H Creatinine 4.3 MG/DL (0.55-1.30) H Estimat Glomerular Filtration Rate 12.5 mL/min (>60) Glucose Level 95 MG/DL (74-106) Calcium Level 8.7 MG/DL (8.5-10.1) Phosphorus Level 4.2 MG/DL (2.5-4.9) Total Bilirubin 0.3 MG/DL (0.2-1.0) Aspartate Amino Transf (AST/SGOT) 17 U/L (15-37) Alanine Aminotransferase (ALT/SGPT) 17 U/L (12-78) Alkaline Phosphatase 140 U/L (46-116) H Pro-B-Type Natriuretic Peptide 2944 pg/mL (0-125) H Total Protein 6.5 G/DL (6.4-8.2) Albumin 3.1 G/DL (3.4-5.0) L Globulin 3.4 g/dL Albumin/Globulin Ratio 0.9 (1.0-2.7) L Height (Feet): 5 Height (Inches): 8.00 Weight (Pounds): 143 General Appearance: WD/WN, no apparent distress, alert Cardiovascular: normal rate Respiratory/Chest: normal breath sounds, no respiratory distress Abdominal Exam: normal bowel sounds, non tender, soft Extremities: normal range of motion, non-tender Rachel Simpson NP Feb 03, 2019 11:28
[2019-02-03 12:00] VITALS: BP 120/69
--- NOTE | 2019-02-03 12:46 | NUR ---
POSTED VAGINAL U/S BLEEDING, NO CLOTS, SMALL AMOUNT BLOOD CONTINUE TO MONITOR NOTED
--- NOTE | 2019-02-03 13:09 | Pulmonology Progress Note ---
Assessment/Plan Problems: (1) Vaginal bleeding (2) ESRF (end stage renal failure) (3) Diabetes mellitus (4) Lung mass (5) S/P AKA (above knee amputation) unilateral Assessment/Plan [employer] evaluation, Dr Salomon informed check h/h, stable prbc prn GI evaluation appreciated Hemodialysis by nephrology sliding scale aspiration precaution' Subjective ROS Limited/Unobtainable: No Allergies: Coded Allergies: No Known Allergies (Unverified , 09/15/16) Objective Last 24 Hour Vital Signs Date Time Temp Pulse Resp B/P (MAP) Pulse Ox O2 Delivery O2 Flow Rate FiO2 02/03/19 09:00 Room Air 02/03/19 08:00 97.5 92 131/74 (93) 02/03/19 04:00 98.2 77 18 129/67 (87) 94 02/03/19 00:22 74 20 Room Air 21 02/02/19 21:21 117/67 02/02/19 21:00 Room Air 02/02/19 20:00 97.9 73 18 117/67 (84) 95 02/02/19 16:00 98.3 71 19 112/62 (79) 94 02/02/19 14:28 122/67 Intake and Output 02/02/19 02/03/19 19:00 07:00 Intake Total 980 ml 200 ml Balance 980 ml 200 ml Intake Oral 480 ml 200 ml IV Total 500 ml # Voids 1 General Appearance: WD/WN HEENT: normocephalic, atraumatic Respiratory/Chest: chest wall non-tender, normal breath sounds Breasts: no masses Cardiovascular: normal peripheral pulses Abdomen: soft, non tender, no organomegaly Genitourinary: normal external genitalia Skin: no rash Microbiology Date/Time Source Procedure Growth Status 02/01/19 01:35 Nasal Nares MRSA Culture - Final NO METHICILLIN RESISTANT STAPH AUREUS... Complete 02/01/19 00:08 Urine,Clean Catch Urine Culture - Final Escherichia Coli - Esbl Complete 02/01/19 01:35 Rectum - Final NO CARBAPENEM-RESISTANT ENTEROBACTERI... Complete 02/01/19 01:35 Rectum VRE Culture - Final NO VANCOMYCIN RESISTANT ENTEROCOCCUS ... Complete Laboratory Tests 02/03/19 05:30: White Blood Count 4.9, Red Blood Count 5.25, Hemoglobin 14.5, Hematocrit 46.5, Mean Corpuscular Volume 89, Mean Corpuscular Hemoglobin 27.7, Mean Corpuscular Hemoglobin Concent 31.2L, Red Cell Distribution Width 15.8H, Platelet Count 256 , Mean Platelet Volume 11.7H, Neutrophils (%) (Auto) 43.5L, Lymphocytes (%) ( Auto) 30.0, Monocytes (%) (Auto) 10.0, Eosinophils (%) (Auto) 13.5H, Basophils ( %) (Auto) 3.0H, Reticulocyte Count 0.4, Sodium Level 142, Potassium Level 3.5, Chloride Level 103, Carbon Dioxide Level 27, Anion Gap 12, Blood Urea Nitrogen 52H, Creatinine 4.3H, Estimat Glomerular Filtration Rate 12.5, Glucose Level 95 , Calcium Level 8.7, Phosphorus Level 4.2, Total Bilirubin 0.3, Aspartate Amino Transf (AST/SGOT) 17, Alanine Aminotransferase (ALT/SGPT) 17, Alkaline Phosphatase 140H, Pro-B-Type Natriuretic Peptide 2944H, Total Protein 6.5, Albumin 3.1L, Globulin 3.4, Albumin/Globulin Ratio 0.9L Current Medications Medications (Trade) Dose Ordered Sig/Althea Route PRN Reason Start Time Stop Time Status Last Admin Dose Admin Acetaminophen (Tylenol) 650 mg Q4H PRN ORAL Fever 02/01/19 09:15 03/03/19 09:14 Albuterol/ Ipratropium (Albuterol/ Ipratropium) 3 ml Q4H PRN HHN Shortness of Breath 02/01/19 09:15 02/06/19 09:14 Atorvastatin Calcium (Lipitor) 10 mg BEDTIME ORAL 02/02/19 21:00 03/03/19 20:59 02/02/19 20:48 Ceftriaxone Sodium 1 gm/ Dextrose 55 ml @ 110 mls/hr Q24H IVPB 02/02/19 01:00 02/09/19 00:59 02/03/19 01:07 Dextrose (Dextrose 50%) 25 ml Q30M PRN IV Hypoglycemia 02/01/19 09:15 03/03/19 09:14 Dextrose (Dextrose 50%) 50 ml Q30M PRN IV Hypoglycemia 02/01/19 09:15 03/03/19 09:14 Docusate Sodium (Colace) 100 mg TID ORAL 02/02/19 18:00 03/03/19 17:59 02/03/19 08:44 Hydralazine HCl (Apresoline) 10 mg EVERY 8 HOURS ORAL 02/02/19 22:00 03/03/19 13:59 Ondansetron HCl (Zofran) 4 mg Q6H PRN IVP Nausea & Vomiting 02/01/19 09:15 03/03/19 09:14 Pantoprazole (Protonix) 40 mg Q12HR ORAL 02/01/19 14:15 03/03/19 14:14 02/03/19 08:44 Polyethylene Glycol (Miralax) 17 gm DAILYPRN PRN ORAL Constipation 02/01/19 09:15 03/03/19 09:14 Quetiapine Fumarate (SEROquel) 12.5 mg BID ORAL 02/01/19 18:00 03/03/19 17:59 02/03/19 08:44 Sucralfate (Carafate) 1 gm BID ORAL 02/01/19 18:00 03/03/19 20:59 02/03/19 08:44 Temazepam (Restoril) 15 mg HSPRN PRN ORAL Insomnia 02/01/19 09:15 02/08/19 09:14 Lit Cerna MD Feb 03, 2019 13:09
--- NOTE | 2019-02-03 14:33 | NUR ---
NURSE NOTES:WOUND CARE NOTES:Pt's skin assessed with primary nurse present. Scars with hyperpigmentation noted to sacrum and bilat clefts of buttocks from previous wounds. Non-tender when palpated..Bilat heels are dry and callused . No evidence of skin breakdown noted. Moisture Barrier paste applied to buttocks and sacral area covered with Optifoam drsg .Pt positioned on siode with pillow and both heels are off-loaded with pillow. Recommendations:Apply Triad Paste to sacrum . Cover with Optifoam drsg .Change every 3 days and prn. Reposition at least every 2hours or as tolerated. Off-load heels with pillow.
--- NOTE | 2019-02-03 14:55 | NUR ---
CHECKED PATIENT VAGINAL AREA CONTINUE TO HAVE SMALL AMOUNT OF BLEEDING NO ACUTE DISTRESS CALL LIGHT IN REACH
[2019-02-03 16:00] VITALS: BP 125/74
--- NOTE | 2019-02-03 16:06 | Diagnostic Imaging Report ---
Indication: Vaginal bleeding Technique: Transabdominal and transvaginal images of the pelvis. Doppler interrogation of the bilateral ovaries Comparison: 01/02/2017, also CT scan dated 09/13/2016 Findings: Uterus measures 7.9 cm length by 4.4 cm AP. Endometrium measures 6 cm thick. Solid mass with calcification and shadowing is seen in the left adnexal region, measures 6 x 4 x 5 cm. Right ovary measures 2.8 cm length. Distinct left ovary could not be identified. No free cul-de-sac fluid. Previously reported calcified fundal fibroid is not evident on this exam. Previously demonstrated endometrial debris is not evident currently Impression: 6 x 4 x 5 cm calcified left adnexal region mass. This is also reported on multiple prior studies dating back to 09/07/2016 and appears unchanged. 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 Distinct left ovary not visualized
--- NOTE | 2019-02-03 16:12 | Nephrology Progress Note ---
Assessment/Plan Problem List: (1) ESRF (end stage renal failure) (2) Hypotension (3) UTI (urinary tract infection) Assessment ESRD : M W Fr UTI ? Vaginal vs Rectal Bleed other conditions Type 2 diabetes. Hypertension. now BP low h/o Anemia of chronic renal disease Hypercholesterolemia. Peripheral vascular disease. Alzheimer's dementia. ?? LUNG Pathology PAST SURGICAL HISTORY: Significant for: 1. Right [id number]-[id number] amputation. 2. Open reduction internal fixation of the left femoral neck on 07/20/2016. Plan HD in am K supplement NS bolus check retic count and stool for ob continue meds monitor H&H Rocephin changed to Zosyn for UTI per consultants Subjective ROS Limited/Unobtainable: No Constitutional: Reports: malaise Objective Objective Last 24 Hour Vital Signs Date Time Temp Pulse Resp B/P (MAP) Pulse Ox O2 Delivery O2 Flow Rate FiO2 02/03/19 14:37 120/66 02/03/19 12:00 97.6 120/69 (86) 02/03/19 09:00 Room Air 02/03/19 08:00 97.5 92 131/74 (93) 02/03/19 07:00 81 22 Room Air 21 02/03/19 04:00 98.2 77 18 129/67 (87) 94 02/03/19 00:22 74 20 Room Air 21 02/02/19 21:21 117/67 02/02/19 21:00 Room Air 02/02/19 20:00 97.9 73 18 117/67 (84) 95 Intake and Output 02/02/19 02/03/19 19:00 07:00 Intake Total 980 ml 200 ml Balance 980 ml 200 ml Intake Oral 480 ml 200 ml IV Total 500 ml # Voids 1 Laboratory Tests 02/03/19 05:30: White Blood Count 4.9, Red Blood Count 5.25, Hemoglobin 14.5, Hematocrit 46.5, Mean Corpuscular Volume 89, Mean Corpuscular Hemoglobin 27.7, Mean Corpuscular Hemoglobin Concent 31.2L, Red Cell Distribution Width 15.8H, Platelet Count 256 , Mean Platelet Volume 11.7H, Neutrophils (%) (Auto) 43.5L, Lymphocytes (%) ( Auto) 30.0, Monocytes (%) (Auto) 10.0, Eosinophils (%) (Auto) 13.5H, Basophils ( %) (Auto) 3.0H, Reticulocyte Count 0.4, Sodium Level 142, Potassium Level 3.5, Chloride Level 103, Carbon Dioxide Level 27, Anion Gap 12, Blood Urea Nitrogen 52H, Creatinine 4.3H, Estimat Glomerular Filtration Rate 12.5, Glucose Level 95 , Calcium Level 8.7, Phosphorus Level 4.2, Total Bilirubin 0.3, Aspartate Amino Transf (AST/SGOT) 17, Alanine Aminotransferase (ALT/SGPT) 17, Alkaline Phosphatase 140H, Pro-B-Type Natriuretic Peptide 2944H, Total Protein 6.5, Albumin 3.1L, Globulin 3.4, Albumin/Globulin Ratio 0.9L Height (Feet): 5 Height (Inches): 8.00 Weight (Pounds): 143 General Appearance: no apparent distress - PE Unchanged Cardiovascular: normal rate Respiratory/Chest: lungs clear Abdomen: soft Objective PE unchanged Marques Motta MD Feb 03, 2019 16:11
--- NOTE | 2019-02-03 17:48 | Internal Med Progress Note ---
Subjective Physician Name AngelMartin Attending Physician Lit Cerna MD Current Medications Medications (Trade) Dose Ordered Sig/Althea Route PRN Reason Start Time Stop Time Status Last Admin Dose Admin Acetaminophen (Tylenol) 650 mg Q4H PRN ORAL Fever 02/01/19 09:15 03/03/19 09:14 Albuterol/ Ipratropium (Albuterol/ Ipratropium) 3 ml Q4H PRN HHN Shortness of Breath 02/01/19 09:15 02/06/19 09:14 Atorvastatin Calcium (Lipitor) 10 mg BEDTIME ORAL 02/02/19 21:00 03/03/19 20:59 02/02/19 20:48 Dextrose (Dextrose 50%) 25 ml Q30M PRN IV Hypoglycemia 02/01/19 09:15 03/03/19 09:14 Dextrose (Dextrose 50%) 50 ml Q30M PRN IV Hypoglycemia 02/01/19 09:15 03/03/19 09:14 Docusate Sodium (Colace) 100 mg TID ORAL 02/02/19 18:00 03/03/19 17:59 02/03/19 08:44 Hydralazine HCl (Apresoline) 10 mg EVERY 8 HOURS ORAL 02/02/19 22:00 03/03/19 13:59 02/03/19 14:37 Ondansetron HCl (Zofran) 4 mg Q6H PRN IVP Nausea & Vomiting 02/01/19 09:15 03/03/19 09:14 Pantoprazole (Protonix) 40 mg Q12HR ORAL 02/01/19 14:15 03/03/19 14:14 02/03/19 08:44 Piperacillin Sod/ Tazobactam Sod 3.375 gm/Sodium Chloride 110 ml @ 27.5 mls/hr EVERY 12 HOURS IVPB 02/03/19 21:00 02/08/19 20:59 Polyethylene Glycol (Miralax) 17 gm DAILYPRN PRN ORAL Constipation 02/01/19 09:15 03/03/19 09:14 Quetiapine Fumarate (SEROquel) 12.5 mg BID ORAL 02/01/19 18:00 03/03/19 17:59 02/03/19 08:44 Sucralfate (Carafate) 1 gm BID ORAL 02/01/19 18:00 03/03/19 20:59 02/03/19 08:44 Temazepam (Restoril) 15 mg HSPRN PRN ORAL Insomnia 02/01/19 09:15 02/08/19 09:14 Allergies: Coded Allergies: No Known Allergies (Unverified , 09/15/16) Subjective Awake, alert, responsive, denies any chest pain, denies any shortness of breath , denies any vaginal bleeding anymore. Objective Last Vital Signs Date Time Temp Pulse Resp B/P (MAP) Pulse Ox O2 Delivery O2 Flow Rate FiO2 02/03/19 16:00 97.6 125/74 (91) 02/03/19 09:00 Room Air 02/03/19 08:00 92 02/03/19 07:00 22 21 02/03/19 04:00 94 Laboratory Tests Test 02/03/19 05:30 White Blood Count 4.9 K/UL (4.8-10.8) Red Blood Count 5.25 M/UL (4.20-5.40) Hemoglobin 14.5 G/DL (12.0-16.0) Hematocrit 46.5 % (37.0-47.0) Mean Corpuscular Volume 89 FL (80-99) Mean Corpuscular Hemoglobin 27.7 PG (27.0-31.0) Mean Corpuscular Hemoglobin Concent 31.2 G/DL (32.0-36.0) L Red Cell Distribution Width 15.8 % (11.6-14.8) H Platelet Count 256 K/UL (150-450) Mean Platelet Volume 11.7 FL (6.5-10.1) H Neutrophils (%) (Auto) 43.5 % (45.0-75.0) L Lymphocytes (%) (Auto) 30.0 % (20.0-45.0) Monocytes (%) (Auto) 10.0 % (1.0-10.0) Eosinophils (%) (Auto) 13.5 % (0.0-3.0) H Basophils (%) (Auto) 3.0 % (0.0-2.0) H Reticulocyte Count 0.4 % (0.0-2.0) Sodium Level 142 MMOL/L (136-145) Potassium Level 3.5 MMOL/L (3.5-5.1) Chloride Level 103 MMOL/L (98-107) Carbon Dioxide Level 27 MMOL/L (21-32) Anion Gap 12 mmol/L (5-15) Blood Urea Nitrogen 52 mg/dL (7-18) H Creatinine 4.3 MG/DL (0.55-1.30) H Estimat Glomerular Filtration Rate 12.5 mL/min (>60) Glucose Level 95 MG/DL (74-106) Calcium Level 8.7 MG/DL (8.5-10.1) Phosphorus Level 4.2 MG/DL (2.5-4.9) Total Bilirubin 0.3 MG/DL (0.2-1.0) Aspartate Amino Transf (AST/SGOT) 17 U/L (15-37) Alanine Aminotransferase (ALT/SGPT) 17 U/L (12-78) Alkaline Phosphatase 140 U/L (46-116) H Pro-B-Type Natriuretic Peptide 2944 pg/mL (0-125) H Total Protein 6.5 G/DL (6.4-8.2) Albumin 3.1 G/DL (3.4-5.0) L Globulin 3.4 g/dL Albumin/Globulin Ratio 0.9 (1.0-2.7) L Microbiology Date/Time Source Procedure Growth Status 02/01/19 01:35 Nasal Nares MRSA Culture - Final NO METHICILLIN RESISTANT STAPH AUREUS... Complete 02/01/19 00:08 Urine,Clean Catch Urine Culture - Final Escherichia Coli - Esbl Complete 02/01/19 01:35 Rectum - Final NO CARBAPENEM-RESISTANT ENTEROBACTERI... Complete 02/01/19 01:35 Rectum VRE Culture - Final NO VANCOMYCIN RESISTANT ENTEROCOCCUS ... Complete Intake and Output 02/02/19 02/03/19 19:00 07:00 Intake Total 980 ml 200 ml Balance 980 ml 200 ml Intake Oral 480 ml 200 ml IV Total 500 ml # Voids 1 Objective General: No acute distress, awake and alert HEENT: NCAT, sclera anicteric, PERRL, EOMI. Neck: Supple, no significant jugular venous distention, Lungs: Good inspiratory effort, clear to auscultation bilaterally, no Wheeze or Rales. Heart: Regular rate and rhythm, normal S1/S2, no murmur. Abdomen: soft, nontender, nondistended. Normoactive bowel sounds. Extremities: No Cyanosis , clubbing or edema, Right LE AKA, Left UE AVF functional. Neuro: A&O x 3, Able to move all extremities Skin: warm, no rash. Psych: Normal mood and affect Assessment/Plan Assessment/Plan Vaginal bleeding ESRD / HD : M W Fr Acute UTI Type 2 diabetes. Hypertension. Anemia of chronic renal disease Hypercholesterolemia. Peripheral vascular disease. Alzheimer's dementia. Lung Mass S/P Right AKA. Plan: Continue on the dialysis as per nephrology recommendation. Broad-spectrum antibiotics with Rocephin for treatment of the UTI DVT prophylaxis with SCD. Monitor laboratory as well as culture. PT mobilt DC Planning to SNF soon. Martin Ortiz MD Feb 03, 2019 17:48
--- NOTE | 2019-02-03 18:16 | NUR ---
PATIENT RESTING COMFORTABLE NO ACUTE DISTRESS VAGINAL U/S DONE ,2 D ECHO DONE... RESULT AVAILABLE.. PATIENT STABLE NOTED
--- NOTE | 2019-02-03 19:46 | NUR ---
NURSE NOTES: Received patient asleep,comfortable,no complaints.
[2019-02-03 20:00] VITALS: BP 148/70
[2019-02-03] MEDS: Piperacillin/Tazobactam 3.375 GM in NS 110 ML IVPB SCH (21:10)
[2019-02-04 00:06] VITALS: BP 141/66
[2019-02-04 04:00] VITALS: BP 111/60
[2019-02-04] MEDS: HydrALAZINE 10mg Tab ORAL SCH ×3 (06:00→20:44)
[2019-02-04 06:55] LABS: BASOPHILS % (AUTO) 2.7 % (0.0-2.0); EOSINOPHILS % (AUTO) 15.6 % (0.0-3.0); HEMATOCRIT 48.4 % (37.0-47.0); LYMPHOCYTES % (AUTO) 28.8 % (20.0-45.0); MEAN CORPUSCULAR VOLUME 88 FL (80-99); MONOCYTES % (AUTO) 8.1 % (1.0-10.0); NEUTROPHILS % (AUTO) 44.9 % (45.0-75.0); PLATELET COUNT 243 K/UL (150-450); RED BLOOD COUNT 5.49 M/UL (4.20-5.40); RED CELL DISTRIBUTION WIDTH 15.8 % (11.6-14.8); WHITE BLOOD COUNT 4.6 K/UL (4.8-10.8)
[2019-02-04 07:20] LABS: ALANINE AMINOTRANSFERASE 21 U/L (12-78); ALBUMIN/GLOBULIN RATIO 0.9 (1.0-2.7); ALKALINE PHOSPHATASE 134 U/L (46-116); ANION GAP 11 mmol/L (5-15); ASPARTATE AMINO TRANSFERASE 16 U/L (15-37); BILIRUBIN,TOTAL 0.4 MG/DL (0.2-1.0); BLOOD UREA NITROGEN 60 mg/dL (7-18); CALCIUM 8.5 MG/DL (8.5-10.1); CARBON DIOXIDE 27 MMOL/L (21-32); CHLORIDE 104 MMOL/L (98-107); CREATININE 4.6 MG/DL (0.55-1.30); POTASSIUM 3.8 MMOL/L (3.5-5.1); SODIUM 142 MMOL/L (136-145)
--- NOTE | 2019-02-04 07:23 | NUR ---
HAND-OFF: Report given to Cornell Preston RN.
--- NOTE | 2019-02-04 07:30 | NUR ---
NURSE NOTES: Received patient in bed, awake, verbally responsive, denies any pain or discomfort. Patient is right AKA and left arm AV shunt with (+) bruit and thrill.No vaginal bleeding @ this time. IV intact, no s/s of infiltration.Bed is in lowest position and locked. Call light within reach. Will continue plan of care.
[2019-02-04 08:00] VITALS: BP 138/73
[2019-02-04] MEDS: Piperacillin/Tazobactam 3.375 GM in NS 110 ML IVPB SCH ×2 (08:41→20:47)
[2019-02-04] MEDS: Sucralfate 1gm tab ORAL SCH ×2 (08:41→17:16)
[2019-02-04] MEDS: Docusate 100mg cap ORAL SCH ×3 (08:41→17:05)
--- NOTE | 2019-02-04 11:29 | GI Progress Note ---
Assessment/Plan Problems: (1) Vaginal bleeding ICD Codes: N93.9 - Abnormal uterine and vaginal bleeding, unspecified SNOMED: 191309312, 867428758 (2) Anemia ICD Codes: D64.9 - Anemia, unspecified SNOMED: 854563323 (3) Hemorrhagic shock ICD Codes: R57.8 - Hemorrhagic shock SNOMED: 853611 (4) Gastric polyp ICD Codes: K31.7 - Polyp of stomach and duodenum SNOMED: 50677277 Status: stable, unchanged Status Narrative Discussed with Dr. Herrera Assessment/Plan Assessment/Plan 1. Decubital ulcerations requiring debridement. 2. End-stage renal disease, on hemodialysis. 3. Diabetes. 4. Peripheral vascular disease requiring AKA on the right side. 5. Dementia. 6. Chronic anemia. 7. Hypertension. 8. Hypercholesterolemia 9. vaginal bleed Abdominal ultrasound reviewed >> Impression: 6 x 4 x 5 cm calcified left adnexal region mass. Most likely a calcified exophytic fibroid, less likely a calcified quiescent solid adnexal mass stable H&H no obvious GIB per nurses fu H&H on diet ppi zofran prn prn transfusions follow labs The patient was seen and examined at bedside and all new and available data was reviewed in the patients chart. I agree with the above findings, impression and plan. (Patient seen earlier today. Signature stamp does not reflect patient encounter time.). - Fabrizio Herrera MD Subjective Gastrointestinal/Abdominal: Reports: no symptoms Subjective Overall states he is okay Still having vaginal bleed Tolerating diet Denies any constipation Objective Last 24 Hour Vital Signs Date Time Temp Pulse Resp B/P (MAP) Pulse Ox O2 Delivery O2 Flow Rate FiO2 02/04/19 09:00 Room Air 02/04/19 08:00 97.6 90 18 138/73 (94) 93 02/04/19 06:00 111/60 02/04/19 04:00 98.5 67 18 111/60 (77) 93 02/04/19 00:06 98.6 83 18 141/66 (91) 95 02/03/19 21:10 148/70 02/03/19 20:52 90 20 Room Air 21 02/03/19 20:31 Room Air 02/03/19 20:00 98.3 89 19 148/70 (96) 95 02/03/19 16:00 97.6 125/74 (91) 02/03/19 14:37 120/66 02/03/19 12:00 97.6 120/69 (86) Intake and Output 02/03/19 02/04/19 19:00 07:00 Intake Total 250 ml 470.0 ml Output Total 350 ml 400 ml Balance -100 ml 70.0 ml Intake Oral 250 ml 360 ml IV Total 110.0 ml Output Urine Total 350 ml 400 ml # Voids 1 # Bowel Movements 4 Laboratory Tests Test 02/04/19 05:40 White Blood Count 4.6 K/UL (4.8-10.8) L Red Blood Count 5.49 M/UL (4.20-5.40) H Hemoglobin 15.0 G/DL (12.0-16.0) Hematocrit 48.4 % (37.0-47.0) H Mean Corpuscular Volume 88 FL (80-99) Mean Corpuscular Hemoglobin 27.4 PG (27.0-31.0) Mean Corpuscular Hemoglobin Concent 31.1 G/DL (32.0-36.0) L Red Cell Distribution Width 15.8 % (11.6-14.8) H Platelet Count 243 K/UL (150-450) Mean Platelet Volume 9.8 FL (6.5-10.1) Neutrophils (%) (Auto) 44.9 % (45.0-75.0) L Lymphocytes (%) (Auto) 28.8 % (20.0-45.0) Monocytes (%) (Auto) 8.1 % (1.0-10.0) Eosinophils (%) (Auto) 15.6 % (0.0-3.0) H Basophils (%) (Auto) 2.7 % (0.0-2.0) H Sodium Level 142 MMOL/L (136-145) Potassium Level 3.8 MMOL/L (3.5-5.1) Chloride Level 104 MMOL/L (98-107) Carbon Dioxide Level 27 MMOL/L (21-32) Anion Gap 11 mmol/L (5-15) Blood Urea Nitrogen 60 mg/dL (7-18) H Creatinine 4.6 MG/DL (0.55-1.30) H Estimat Glomerular Filtration Rate 11.5 mL/min (>60) Glucose Level 100 MG/DL (74-106) Calcium Level 8.5 MG/DL (8.5-10.1) Phosphorus Level 4.0 MG/DL (2.5-4.9) Total Bilirubin 0.4 MG/DL (0.2-1.0) Aspartate Amino Transf (AST/SGOT) 16 U/L (15-37) Alanine Aminotransferase (ALT/SGPT) 21 U/L (12-78) Alkaline Phosphatase 134 U/L (46-116) H Pro-B-Type Natriuretic Peptide 3348 pg/mL (0-125) H Total Protein 6.3 G/DL (6.4-8.2) L Albumin 3.0 G/DL (3.4-5.0) L Globulin 3.3 g/dL Albumin/Globulin Ratio 0.9 (1.0-2.7) L Height (Feet): 5 Height (Inches): 8.00 Weight (Pounds): 152 General Appearance: WD/WN, no apparent distress, alert Cardiovascular: normal rate Respiratory/Chest: normal breath sounds, no respiratory distress Abdominal Exam: normal bowel sounds, non tender, soft Extremities: normal range of motion, non-tender Rachel Simpson NP Feb 04, 2019 11:29
--- NOTE | 2019-02-04 11:51 | NUR ---
NURSE NOTES: Placed a call to [facility] and left message to Virgilio to follow up with dialysis. Awaiting for return call.
--- NOTE | 2019-02-04 11:57 | NUR ---
NURSE NOTES: Collected stool for OB and sent it to lab.
[2019-02-04 12:00] VITALS: BP 125/64
--- NOTE | 2019-02-04 12:59 | Pulmonology Progress Note ---
Assessment/Plan Problems: (1) Vaginal bleeding (2) ESRF (end stage renal failure) (3) Diabetes mellitus (4) Lung mass (5) S/P AKA (above knee amputation) unilateral Assessment/Plan all reviewed GI bleeding ruled out US of vagina reviewed, blacking wheel tender evaluation, Dr Salomon informed check h/h, stable prbc prn GI evaluation appreciated Hemodialysis by nephrology sliding scale aspiration precaution' Subjective ROS Limited/Unobtainable: No Constitutional: Reports: no symptoms HEENT: Repors: no symptoms Respiratory: Reports: no symptoms Allergies: Coded Allergies: No Known Allergies (Unverified , 09/15/16) Objective Last 24 Hour Vital Signs Date Time Temp Pulse Resp B/P (MAP) Pulse Ox O2 Delivery O2 Flow Rate FiO2 02/04/19 12:00 98.1 83 18 125/64 (84) 94 02/04/19 09:00 Room Air 02/04/19 08:00 97.6 90 18 138/73 (94) 93 02/04/19 06:00 111/60 02/04/19 04:00 98.5 67 18 111/60 (77) 93 02/04/19 00:06 98.6 83 18 141/66 (91) 95 02/03/19 21:10 148/70 02/03/19 20:52 90 20 Room Air 21 02/03/19 20:31 Room Air 02/03/19 20:00 98.3 89 19 148/70 (96) 95 02/03/19 16:00 97.6 125/74 (91) 02/03/19 14:37 120/66 Intake and Output 02/03/19 02/04/19 19:00 07:00 Intake Total 250 ml 470.0 ml Output Total 350 ml 400 ml Balance -100 ml 70.0 ml Intake Oral 250 ml 360 ml IV Total 110.0 ml Output Urine Total 350 ml 400 ml # Voids 1 # Bowel Movements 4 Objective General Appearance: WD/WN HEENT: normocephalic, atraumatic Respiratory/Chest: chest wall non-tender, normal breath sounds Breasts: no masses Cardiovascular: normal peripheral pulses Abdomen: soft, non tender, no organomegaly Genitourinary: normal external genitalia Skin: no rash Laboratory Tests 02/04/19 05:40: White Blood Count 4.6L, Red Blood Count 5.49H, Hemoglobin 15.0, Hematocrit 48.4H , Mean Corpuscular Volume 88, Mean Corpuscular Hemoglobin 27.4, Mean Corpuscular Hemoglobin Concent 31.1L, Red Cell Distribution Width 15.8H, Platelet Count 243, Mean Platelet Volume 9.8, Neutrophils (%) (Auto) 44.9L, Lymphocytes (%) (Auto) 28.8, Monocytes (%) (Auto) 8.1, Eosinophils (%) (Auto) 15.6H, Basophils (%) (Auto) 2.7H, Sodium Level 142, Potassium Level 3.8, Chloride Level 104, Carbon Dioxide Level 27, Anion Gap 11, Blood Urea Nitrogen 60H, Creatinine 4.6H, Estimat Glomerular Filtration Rate 11.5, Glucose Level 100 , Calcium Level 8.5, Phosphorus Level 4.0, Total Bilirubin 0.4, Aspartate Amino Transf (AST/SGOT) 16, Alanine Aminotransferase (ALT/SGPT) 21, Alkaline Phosphatase 134H, Pro-B-Type Natriuretic Peptide 3348H, Total Protein 6.3L, Albumin 3.0L, Globulin 3.3, Albumin/Globulin Ratio 0.9L 02/04/19 10:55: Stool Occult Blood [Pending] Current Medications Medications (Trade) Dose Ordered Sig/Althea Route PRN Reason Start Time Stop Time Status Last Admin Dose Admin Acetaminophen (Tylenol) 650 mg Q4H PRN ORAL Fever 02/01/19 09:15 03/03/19 09:14 Albuterol/ Ipratropium (Albuterol/ Ipratropium) 3 ml Q4H PRN HHN Shortness of Breath 02/01/19 09:15 02/06/19 09:14 Atorvastatin Calcium (Lipitor) 10 mg BEDTIME ORAL 02/02/19 21:00 03/03/19 20:59 02/03/19 21:10 Dextrose (Dextrose 50%) 25 ml Q30M PRN IV Hypoglycemia 02/01/19 09:15 03/03/19 09:14 Dextrose (Dextrose 50%) 50 ml Q30M PRN IV Hypoglycemia 02/01/19 09:15 03/03/19 09:14 Docusate Sodium (Colace) 100 mg TID ORAL 02/02/19 18:00 03/03/19 17:59 02/04/19 08:41 Hydralazine HCl (Apresoline) 10 mg EVERY 8 HOURS ORAL 02/02/19 22:00 03/03/19 13:59 02/03/19 21:10 Ondansetron HCl (Zofran) 4 mg Q6H PRN IVP Nausea & Vomiting 02/01/19 09:15 03/03/19 09:14 Pantoprazole (Protonix) 40 mg Q12HR ORAL 02/01/19 14:15 03/03/19 14:14 02/04/19 08:41 Piperacillin Sod/ Tazobactam Sod 3.375 gm/Sodium Chloride 110 ml @ 27.5 mls/hr EVERY 12 HOURS IVPB 02/03/19 21:00 02/08/19 20:59 02/04/19 08:41 Polyethylene Glycol (Miralax) 17 gm DAILYPRN PRN ORAL Constipation 02/01/19 09:15 03/03/19 09:14 Quetiapine Fumarate (SEROquel) 12.5 mg BID ORAL 02/01/19 18:00 03/03/19 17:59 02/04/19 08:41 Sucralfate (Carafate) 1 gm BID ORAL 02/01/19 18:00 03/03/19 20:59 02/04/19 08:41 Temazepam (Restoril) 15 mg HSPRN PRN ORAL Insomnia 02/01/19 09:15 02/08/19 09:14 Lit Cerna MD Feb 04, 2019 12:59
--- NOTE | 2019-02-04 13:18 | NUR ---
NURSE NOTES: Rn informed Dr. Clarissa TIRADO for a new consult. Dr. Romo coming to see the patient tonight or tomorrow. No vaginal bleeding noted and hemodialysis in progress.
--- NOTE | 2019-02-04 13:48 | NUR ---
NURSE NOTES: Patient seen by Dr. Rosey TIRADO.
--- NOTE | 2019-02-04 13:48 | Consultation ---
Consult Note Consult Note GYNECOLOGY CONSULT NOTE CC: Vaginal vs GI bleeding HPI: Patient is a 68yo P2 who was admitted with vaginal vs GI bleeding. Per chart review, GI bleeding not observed and stool studies pending. No active or heavy bleeding noted per nursing, however some small spots of blood noted with bowel movement today. Patient currently receiving dialysis. The patient cannot provide much information and most of the information is gathered from the chart. PMH: 1. End stage renal disease on dialysis 2. Diabetes mellitus 3. Decubital ulcer PSH: 1. s/p above knee amputation of right leg Meds: see chart Allergies: NKDA OBHx: 2 children born vaginally, unable to obtain any additional history GYNHx: Unable to obtain, patient states "I don't know" when asked her history Vitals: Tlast 98.1, BP 125/64, P 83, RR 18, 94% RA Exam: Gen: NAD, receiving dialysis HEENT: Poor dentition, OP mildly dry but clear Neck: No gross thyromegaly CV: Reg rate Pulm: Some mild wheezing and coughing, but no increased work of breathing or dyspnea Abd: Soft, NTND Pelvic: NEFG, stool noted and cleaned prior to exam. Some blood noted near stool on suction device at perineum. Internal exam revealed no blood in the vault, no signs of active vaginal bleeding. Ext: Right leg amputated above knee, left leg skin dry Labs: Test 02/02/19 05:10 02/03/19 05:30 02/04/19 05:40 02/04/19 10:55 White Blood Count 5.1 K/UL (4.8-10.8) 4.9 K/UL (4.8-10.8) 4.6 K/UL (4.8-10.8) Red Blood Count 5.73 M/UL (4.20-5.40) 5.25 M/UL (4.20-5.40) 5.49 M/UL (4.20-5.40) Hemoglobin 15.6 G/DL (12.0-16.0) 14.5 G/DL (12.0-16.0) 15.0 G/DL (12.0-16.0) Hematocrit 50.2 % (37.0-47.0) 46.5 % (37.0-47.0) 48.4 % (37.0-47.0) Mean Corpuscular Volume 88 FL (80-99) 89 FL (80-99) 88 FL (80-99) Mean Corpuscular Hemoglobin 27.2 PG (27.0-31.0) 27.7 PG (27.0-31.0) 27.4 PG (27.0-31.0) Mean Corpuscular Hemoglobin Concent 31.1 G/DL (32.0-36.0) 31.2 G/DL (32.0-36.0) 31.1 G/DL (32.0-36.0) Red Cell Distribution Width 16.6 % (11.6-14.8) 15.8 % (11.6-14.8) 15.8 % (11.6-14.8) Platelet Count 248 K/UL (150-450) 256 K/UL (150-450) 243 K/UL (150-450) Mean Platelet Volume 12.0 FL (6.5-10.1) 11.7 FL (6.5-10.1) 9.8 FL (6.5-10.1) Neutrophils (%) (Auto) 50.3 % (45.0-75.0) 43.5 % (45.0-75.0) 44.9 % (45.0-75.0) Lymphocytes (%) (Auto) 24.9 % (20.0-45.0) 30.0 % (20.0-45.0) 28.8 % (20.0-45.0) Monocytes (%) (Auto) 10.8 % (1.0-10.0) 10.0 % (1.0-10.0) 8.1 % (1.0-10.0) Eosinophils (%) (Auto) 12.1 % (0.0-3.0) 13.5 % (0.0-3.0) 15.6 % (0.0-3.0) Basophils (%) (Auto) 1.9 % (0.0-2.0) 3.0 % (0.0-2.0) 2.7 % (0.0-2.0) Sodium Level 140 MMOL/L (136-145) 142 MMOL/L (136-145) 142 MMOL/L (136-145) Potassium Level 3.2 MMOL/L (3.5-5.1) 3.5 MMOL/L (3.5-5.1) 3.8 MMOL/L (3.5-5.1) Chloride Level 103 MMOL/L (98-107) 103 MMOL/L (98-107) 104 MMOL/L (98-107) Carbon Dioxide Level 30 MMOL/L (21-32) 27 MMOL/L (21-32) 27 MMOL/L (21-32) Anion Gap 7 mmol/L (5-15) 12 mmol/L (5-15) 11 mmol/L (5-15) Blood Urea Nitrogen 45 mg/dL (7-18) 52 mg/dL (7-18) 60 mg/dL (7-18) Creatinine 3.9 MG/DL (0.55-1.30) 4.3 MG/DL (0.55-1.30) 4.6 MG/DL (0.55-1.30) Estimat Glomerular Filtration Rate 13.9 mL/min (>60) 12.5 mL/min (>60) 11.5 mL/min (>60) Glucose Level 113 MG/DL (74-106) 95 MG/DL (74-106) 100 MG/DL (74-106) Hemoglobin A1c 5.6 % (4.3-6.0) Uric Acid 4.6 MG/DL (2.6-7.2) Calcium Level 8.6 MG/DL (8.5-10.1) 8.7 MG/DL (8.5-10.1) 8.5 MG/DL (8.5-10.1) Phosphorus Level 3.9 MG/DL (2.5-4.9) 4.2 MG/DL (2.5-4.9) 4.0 MG/DL (2.5-4.9) Magnesium Level 1.9 MG/DL (1.8-2.4) Total Bilirubin 0.3 MG/DL (0.2-1.0) 0.3 MG/DL (0.2-1.0) 0.4 MG/DL (0.2-1.0) Gamma Glutamyl Transpeptidase 15 U/L (5-85) Aspartate Amino Transf (AST/SGOT) 16 U/L (15-37) 17 U/L (15-37) 16 U/L (15-37) Alanine Aminotransferase (ALT/SGPT) 19 U/L (12-78) 17 U/L (12-78) 21 U/L (12-78) Alkaline Phosphatase 142 U/L (46-116) 140 U/L (46-116) 134 U/L (46-116) Pro-B-Type Natriuretic Peptide 3996 pg/mL (0-125) 2944 pg/mL (0-125) 3348 pg/mL (0-125) Total Protein 6.6 G/DL (6.4-8.2) 6.5 G/DL (6.4-8.2) 6.3 G/DL (6.4-8.2) Albumin 3.0 G/DL (3.4-5.0) 3.1 G/DL (3.4-5.0) 3.0 G/DL (3.4-5.0) Globulin 3.6 g/dL 3.4 g/dL 3.3 g/dL Albumin/Globulin Ratio 0.8 (1.0-2.7) 0.9 (1.0-2.7) 0.9 (1.0-2.7) Triglycerides Level 59 MG/DL (30-150) Cholesterol Level 151 MG/DL (< 200) LDL Cholesterol 71 mg/dL (<100) HDL Cholesterol 56 MG/DL (40-60) Cholesterol/HDL Ratio 2.7 (3.3-4.4) Vitamin B12 Level 904 PG/ML (193-986) Folate 16.5 NG/ML (8.6-58.9) Thyroid Stimulating Hormone (TSH) 0.246 uiU/mL (0.358-3.740) Reticulocyte Count 0.4 % (0.0-2.0) Stool Occult Blood Positive (NEGATIVE) Imaging: PELVIC ULTRASOUND: Findings: Uterus measures 7.9 cm length by 4.4 cm AP. Endometrium measures 6 cm thick (this is a typo - measures 5.7mm on my review of images). Solid mass with calcification and shadowing is seen in the left adnexal region, measures 6 x 4 x 5 cm. Right ovary measures 2.8 cm length. Distinct left ovary could not be identified. No free cul-de-sac fluid. Previously reported calcified fundal fibroid is not evident on this exam. Previously demonstrated endometrial debris is not evident currently Impression: 6 x 4 x 5 cm calcified left adnexal region mass. This is also reported on multiple prior studies dating back to 09/07/2016 and appears unchanged. 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 Distinct left ovary not visualized Assessment/Plan 68yo fpc patient admitted with GI vs vaginal bleed - Ultrasound and exam unremarkable; no blood on pelvic exam - Exophytic fibroid and 5.7mm endometrium noted on US - Possibility of intermittent rectal bleeding with bowel movement vs scant vaginal bleeding, however no acute issue at this time and can be managed as outpatient - US findings reviewed from this admission and compared to prior admission - endometrium was markedly thickened in 2017. This admission the endometrium measures 5.7mm - Differential includes resolving hematometra vs endometrial hyperplasia vs malignancy; however, she has had intermittent vaginal bleeding for >2 year sand her imaging remains unchanged if not improved - Would still recommend outpatient endometrial biopsy - patient is a poor surgical candidate and do not recommend inpatient biopsy - H/H remain stable at ~15, no indication for transfusion - Patient is cleared for discharge from a PATIENT SUPPORT REPRESENTATIVE perspective; recommend PATIENT SUPPORT REPRESENTATIVE follow up for continued monitoring and evaluation with endometrial biopsy when able. Thank you for this interesting consult. Signed: MD Clarissa Hodges Carla M.D. Feb 04, 2019 13:48
[2019-02-04] MEDS ORDERED: Tubing IV Secondary IV ONE (14:55)
[2019-02-04] MEDS ORDERED: NS 275ml ONE (14:55)
--- NOTE | 2019-02-04 15:04 | NUR ---
GLASS CARRIERJAVA DEVELOPER ANALYST SI:VAGINAL BLEEDING VS: BP 141/66, P 67, T 97.6, RR 18, SpO2 93 WBC 4.6, RBC 5.49, Hct 48.4 BUN 60, CR 4.6 IS:PROTONIX 40mg SUCRALFATE 1gm SEROQUEL 1gm PIPERACILLIN 110ml IVPB MED/SURG STATUS
--- NOTE | 2019-02-04 15:30 | NUR ---
NURSE NOTES: Patient is s/p dialysis, 500ml removed per dialysis nurse. left upper arm with AV shunt with pressure dressing no bleeding noted. Patient is calm and stable.
--- NOTE | 2019-02-04 15:54 | Nephrology Progress Note ---
Assessment/Plan Problem List: (1) ESRF (end stage renal failure) (2) Hypotension (3) UTI (urinary tract infection) Assessment ESRD : M W Fr UTI ? Vaginal vs Rectal Bleed other conditions Type 2 diabetes. Hypertension. now BP low h/o Anemia of chronic renal disease Hypercholesterolemia. Peripheral vascular disease. Alzheimer's dementia. ?? LUNG Pathology PAST SURGICAL HISTORY: Significant for: 1. Right [id number] amputation. 2. Open reduction internal fixation of the left femoral neck on 07/20/2016. Plan HD today K supplement NS bolus check retic count and stool for ob continue meds monitor H&H Rocephin changed to Zosyn for UTI per consultants Subjective ROS Limited/Unobtainable: No Objective Objective Last 24 Hour Vital Signs Date Time Temp Pulse Resp B/P (MAP) Pulse Ox O2 Delivery O2 Flow Rate FiO2 02/04/19 12:00 98.1 83 18 125/64 (84) 94 02/04/19 09:00 Room Air 02/04/19 08:00 97.6 90 18 138/73 (94) 93 02/04/19 06:00 111/60 02/04/19 04:00 98.5 67 18 111/60 (77) 93 02/04/19 00:06 98.6 83 18 141/66 (91) 95 02/03/19 21:10 148/70 02/03/19 20:52 90 20 Room Air 21 02/03/19 20:31 Room Air 02/03/19 20:00 98.3 89 19 148/70 (96) 95 02/03/19 16:00 97.6 125/74 (91) Intake and Output 02/03/19 02/04/19 19:00 07:00 Intake Total 250 ml 470.0 ml Output Total 350 ml 400 ml Balance -100 ml 70.0 ml Intake Oral 250 ml 360 ml IV Total 110.0 ml Output Urine Total 350 ml 400 ml # Voids 1 # Bowel Movements 4 Laboratory Tests 02/04/19 05:40: White Blood Count 4.6L, Red Blood Count 5.49H, Hemoglobin 15.0, Hematocrit 48.4H , Mean Corpuscular Volume 88, Mean Corpuscular Hemoglobin 27.4, Mean Corpuscular Hemoglobin Concent 31.1L, Red Cell Distribution Width 15.8H, Platelet Count 243, Mean Platelet Volume 9.8, Neutrophils (%) (Auto) 44.9L, Lymphocytes (%) (Auto) 28.8, Monocytes (%) (Auto) 8.1, Eosinophils (%) (Auto) 15.6H, Basophils (%) (Auto) 2.7H, Sodium Level 142, Potassium Level 3.8, Chloride Level 104, Carbon Dioxide Level 27, Anion Gap 11, Blood Urea Nitrogen 60H, Creatinine 4.6H, Estimat Glomerular Filtration Rate 11.5, Glucose Level 100 , Calcium Level 8.5, Phosphorus Level 4.0, Total Bilirubin 0.4, Aspartate Amino Transf (AST/SGOT) 16, Alanine Aminotransferase (ALT/SGPT) 21, Alkaline Phosphatase 134H, Pro-B-Type Natriuretic Peptide 3348H, Total Protein 6.3L, Albumin 3.0L, Globulin 3.3, Albumin/Globulin Ratio 0.9L 02/04/19 10:55: Stool Occult Blood Positive Height (Feet): 5 Height (Inches): 8.00 Weight (Pounds): 152 General Appearance: no apparent distress Objective PE unchanged Marques Motta MD Feb 04, 2019 15:54
[2019-02-04 16:00] VITALS: BP 139/70
--- NOTE | 2019-02-04 18:46 | NUR ---
NURSE NOTES: Relayed positive OB stool result to Moe. He will discuss with Dr. Herrera. No visible bleeding noted and H&H stable.
--- NOTE | 2019-02-04 18:50 | NUR ---
NURSE NOTES: Patient's daughter Christiana White consented for EGD and another nurse verified.
--- NOTE | 2019-02-04 19:30 | NUR ---
NURSE NOTES: Patient awake in bed. No complaints of pain. Instructed the use of call light. Call light and needs in reach. Bed in lowest position, lock engaged and alarm on. Will continue to monitor.
--- NOTE | 2019-02-04 19:31 | NUR ---
HAND-OFF: Report given to Effie and endorsed PT is npo post midnight for EGD.
[2019-02-04 20:00] VITALS: BP 151/81
--- NOTE | 2019-02-04 23:37 | Internal Med Progress Note ---
Subjective Physician Name AngelMartin Attending Physician Lit Cerna MD Current Medications Medications (Trade) Dose Ordered Sig/Althea Route PRN Reason Start Time Stop Time Status Last Admin Dose Admin Acetaminophen (Tylenol) 650 mg Q4H PRN ORAL Fever 02/01/19 09:15 03/03/19 09:14 Albuterol/ Ipratropium (Albuterol/ Ipratropium) 3 ml Q4H PRN HHN Shortness of Breath 02/01/19 09:15 02/06/19 09:14 Atorvastatin Calcium (Lipitor) 10 mg BEDTIME ORAL 02/02/19 21:00 03/03/19 20:59 02/04/19 20:43 Dextrose (Dextrose 50%) 25 ml Q30M PRN IV Hypoglycemia 02/01/19 09:15 03/03/19 09:14 Dextrose (Dextrose 50%) 50 ml Q30M PRN IV Hypoglycemia 02/01/19 09:15 03/03/19 09:14 Docusate Sodium (Colace) 100 mg TID ORAL 02/02/19 18:00 03/03/19 17:59 02/04/19 08:41 Hydralazine HCl (Apresoline) 10 mg EVERY 8 HOURS ORAL 02/02/19 22:00 03/03/19 13:59 02/04/19 20:44 Ondansetron HCl (Zofran) 4 mg Q6H PRN IVP Nausea & Vomiting 02/01/19 09:15 03/03/19 09:14 Pantoprazole (Protonix) 40 mg Q12HR ORAL 02/01/19 14:15 03/03/19 14:14 02/04/19 20:43 Piperacillin Sod/ Tazobactam Sod 3.375 gm/Sodium Chloride 110 ml @ 27.5 mls/hr EVERY 12 HOURS IVPB 02/03/19 21:00 02/08/19 20:59 02/04/19 20:47 Polyethylene Glycol (Miralax) 17 gm DAILYPRN PRN ORAL Constipation 02/01/19 09:15 03/03/19 09:14 Quetiapine Fumarate (SEROquel) 12.5 mg BID ORAL 02/01/19 18:00 03/03/19 17:59 02/04/19 17:16 Sucralfate (Carafate) 1 gm BID ORAL 02/01/19 18:00 03/03/19 20:59 02/04/19 17:16 Temazepam (Restoril) 15 mg HSPRN PRN ORAL Insomnia 02/01/19 09:15 02/08/19 09:14 Allergies: Coded Allergies: No Known Allergies (Unverified , 09/15/16) Subjective Awake, alert, responsive, denies any chest pain, denies any shortness of breath. Objective Last Vital Signs Date Time Temp Pulse Resp B/P (MAP) Pulse Ox O2 Delivery O2 Flow Rate FiO2 02/04/19 21:00 Room Air 02/04/19 20:44 151/81 02/04/19 20:00 97.7 80 18 94 02/03/19 20:52 21 Laboratory Tests Test 02/04/19 05:40 02/04/19 10:55 White Blood Count 4.6 K/UL (4.8-10.8) L Red Blood Count 5.49 M/UL (4.20-5.40) H Hemoglobin 15.0 G/DL (12.0-16.0) Hematocrit 48.4 % (37.0-47.0) H Mean Corpuscular Volume 88 FL (80-99) Mean Corpuscular Hemoglobin 27.4 PG (27.0-31.0) Mean Corpuscular Hemoglobin Concent 31.1 G/DL (32.0-36.0) L Red Cell Distribution Width 15.8 % (11.6-14.8) H Platelet Count 243 K/UL (150-450) Mean Platelet Volume 9.8 FL (6.5-10.1) Neutrophils (%) (Auto) 44.9 % (45.0-75.0) L Lymphocytes (%) (Auto) 28.8 % (20.0-45.0) Monocytes (%) (Auto) 8.1 % (1.0-10.0) Eosinophils (%) (Auto) 15.6 % (0.0-3.0) H Basophils (%) (Auto) 2.7 % (0.0-2.0) H Sodium Level 142 MMOL/L (136-145) Potassium Level 3.8 MMOL/L (3.5-5.1) Chloride Level 104 MMOL/L (98-107) Carbon Dioxide Level 27 MMOL/L (21-32) Anion Gap 11 mmol/L (5-15) Blood Urea Nitrogen 60 mg/dL (7-18) H Creatinine 4.6 MG/DL (0.55-1.30) H Estimat Glomerular Filtration Rate 11.5 mL/min (>60) Glucose Level 100 MG/DL (74-106) Calcium Level 8.5 MG/DL (8.5-10.1) Phosphorus Level 4.0 MG/DL (2.5-4.9) Total Bilirubin 0.4 MG/DL (0.2-1.0) Aspartate Amino Transf (AST/SGOT) 16 U/L (15-37) Alanine Aminotransferase (ALT/SGPT) 21 U/L (12-78) Alkaline Phosphatase 134 U/L (46-116) H Pro-B-Type Natriuretic Peptide 3348 pg/mL (0-125) H Total Protein 6.3 G/DL (6.4-8.2) L Albumin 3.0 G/DL (3.4-5.0) L Globulin 3.3 g/dL Albumin/Globulin Ratio 0.9 (1.0-2.7) L Stool Occult Blood Positive (NEGATIVE) Intake and Output 02/03/19 02/04/19 19:00 07:00 Intake Total 250 ml 470.0 ml Output Total 350 ml 400 ml Balance -100 ml 70.0 ml Intake Oral 250 ml 360 ml IV Total 110.0 ml Output Urine Total 350 ml 400 ml # Voids 1 # Bowel Movements 4 Objective General: No acute distress, awake and alert HEENT: NCAT, sclera anicteric, PERRL, EOMI. Neck: Supple, no significant jugular venous distention, Lungs: Good inspiratory effort, clear to auscultation bilaterally, no Wheeze or Rales. Heart: Regular rate and rhythm, normal S1/S2, no murmur. Abdomen: soft, nontender, nondistended. Normoactive bowel sounds. Extremities: No Cyanosis , clubbing or edema, Right LE AKA, Left UE AVF functional. Neuro: A&O x 3, Able to move all extremities Skin: warm, no rash. Psych: Normal mood and affect Assessment/Plan Assessment/Plan Vaginal bleeding ESRD / HD : M W Fr Acute UTI Type 2 diabetes. Hypertension. Anemia of chronic renal disease Hypercholesterolemia. Peripheral vascular disease. Alzheimer's dementia. Lung Mass S/P Right AKA. Plan: Continue on the dialysis as per nephrology recommendation. Broad-spectrum antibiotics with Rocephin for treatment of the UTI DVT prophylaxis with SCD. Monitor laboratory as well as culture. PT mobility. DGYN consult. Transabdominal and transvaginal images of the pelvis. Impression: 6 x 4 x 5 cm calcified left adnexal region mass. This is also reported on multiple prior studies dating back to 09/07/2016 and appears unchanged. 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 Distinct left ovary not visualized . Martin Ortiz MD Feb 04, 2019 23:37
[2019-02-05] VITALS (10 sets, daily range): BP systolic 112–155; BP diastolic 62–89
[2019-02-05] MEDS: HydrALAZINE 10mg Tab ORAL SCH ×2 (05:15→13:48)
[2019-02-05 05:32] LABS: ANION GAP 12 mmol/L (5-15); BLOOD UREA NITROGEN 39 mg/dL (7-18); CALCIUM 8.8 MG/DL (8.5-10.1); CARBON DIOXIDE 25 MMOL/L (21-32); CHLORIDE 104 MMOL/L (98-107); CREATININE 3.5 MG/DL (0.55-1.30); PHOSPHORUS 3.2 MG/DL (2.5-4.9); POTASSIUM 3.7 MMOL/L (3.5-5.1); SODIUM 141 MMOL/L (136-145)
[2019-02-05 05:35] LABS: BASOPHILS % (AUTO) 2.6 % (0.0-2.0); EOSINOPHILS % (AUTO) 15.3 % (0.0-3.0); HEMATOCRIT 48.9 % (37.0-47.0); HEMOGLOBIN 15.1 G/DL (12.0-16.0); LYMPHOCYTES % (AUTO) 27.9 % (20.0-45.0); MEAN CORPUSCULAR VOLUME 88 FL (80-99); MONOCYTES % (AUTO) 8.8 % (1.0-10.0); NEUTROPHILS % (AUTO) 45.5 % (45.0-75.0); PLATELET COUNT 251 K/UL (150-450); RED BLOOD COUNT 5.58 M/UL (4.20-5.40); RED CELL DISTRIBUTION WIDTH 15.8 % (11.6-14.8); WHITE BLOOD COUNT 4.5 K/UL (4.8-10.8)
--- NOTE | 2019-02-05 07:37 | NUR ---
HAND-OFF: Report given to MAYO Sarabia. Kept pt on NPO.
--- NOTE | 2019-02-05 07:40 | NUR ---
NURSE NOTES: Received patient in bed, awake, verbally responsive, denies any pain or discomfort. Patient is right AKA and left arm AV shunt with (+) bruit and thrill.No vaginal or rectal bleeding @ this time. IV intact, no s/s of infiltration.On NPO for EGD.Bed is in lowest position and locked. Call light within reach. Will continue plan of care.
[2019-02-05] MEDS: Sucralfate 1gm tab ORAL SCH ×2 (08:08→17:10)
[2019-02-05] MEDS: Docusate 100mg cap ORAL SCH ×3 (08:09→17:10)
[2019-02-05] MEDS: Piperacillin/Tazobactam 3.375 GM in NS 110 ML IVPB SCH (08:52)
--- NOTE | 2019-02-05 12:00 | NUR ---
NURSE NOTES: Patient is off the unit for EGD in stable condition. Iv intact.
--- NOTE | 2019-02-05 12:16 | Nephrology Progress Note ---
Assessment/Plan Problem List: (1) ESRF (end stage renal failure) (2) Hypotension (3) UTI (urinary tract infection) Assessment ESRD : M W Fr UTI ? Vaginal vs Rectal Bleed other conditions Type 2 diabetes. Hypertension. now BP low h/o Anemia of chronic renal disease Hypercholesterolemia. Peripheral vascular disease. Alzheimer's dementia. ?? LUNG Pathology PAST SURGICAL HISTORY: Significant for: 1. Right [id number] amputation. 2. Open reduction internal fixation of the left femoral neck on 07/20/2016. Plan HD today K supplement NS bolus check retic count and stool for ob continue meds monitor H&H Rocephin changed to Zosyn for UTI per consultants Objective Objective Last 24 Hour Vital Signs Date Time Temp Pulse Resp B/P (MAP) Pulse Ox O2 Delivery O2 Flow Rate FiO2 02/05/19 09:00 Room Air 02/05/19 08:00 97.5 73 18 144/76 (98) 95 02/05/19 04:00 97.7 79 18 155/75 (101) 95 02/05/19 00:00 97.8 83 18 155/89 (111) 95 02/04/19 21:00 Room Air 02/04/19 20:44 151/81 02/04/19 20:00 97.7 80 18 151/81 (104) 94 02/04/19 16:00 97.8 71 20 139/70 (93) 94 Intake and Output 02/04/19 02/05/19 18:59 06:59 Intake Total 830.0 ml 310.0 ml Output Total 500 ml Balance 330.0 ml 310.0 ml Intake Oral 720 ml 200 ml IV Total 110.0 ml 110.0 ml Hemodialysis UF 500 ml # Voids 1 3 # Bowel Movements 1 1 Laboratory Tests 02/05/19 04:37: White Blood Count 4.5L, Red Blood Count 5.58H, Hemoglobin 15.1, Hematocrit 48.9H , Mean Corpuscular Volume 88, Mean Corpuscular Hemoglobin 27.0, Mean Corpuscular Hemoglobin Concent 30.8L, Red Cell Distribution Width 15.8H, Platelet Count 251, Mean Platelet Volume 11.8H, Neutrophils (%) (Auto) 45.5, Lymphocytes (%) (Auto) 27.9, Monocytes (%) (Auto) 8.8, Eosinophils (%) (Auto) 15.3H, Basophils (%) (Auto) 2.6H, Prothrombin Time 10.4, Prothromb Time International Ratio 1.0, Activated Partial Thromboplast Time 32, Sodium Level 141, Potassium Level 3.7, Chloride Level 104, Carbon Dioxide Level 25, Anion Gap 12, Blood Urea Nitrogen 39H, Creatinine 3.5H, Estimat Glomerular Filtration Rate 15.9, Glucose Level 101, Calcium Level 8.8, Phosphorus Level 3.2, Magnesium Level 2.0 Height (Feet): 5 Height (Inches): 5.00 Weight (Pounds): 147 Objective PE unchanged Marques Motta MD Feb 05, 2019 12:16
[2019-02-05] MEDS ORDERED: NS 500ML IVPB ONE (12:30)
[2019-02-05] MEDS ORDERED: Lidocaine 1% MPF 10mg/ml 5ml ONE (12:40)
[2019-02-05] MEDS ORDERED: Esmolol 100mg/10ml Inj ONE (12:40)
[2019-02-05] MEDS ORDERED: Propofol 200mg/20ml IV ONE (12:40)
--- NOTE | 2019-02-05 12:46 | Endoscopy Procedure Note ---
Endoscopy Procedure Note General Indication for Procedure: gig Procedures Performed: EGD Operative Findings/Diagnosis: gastritis Specimen: yes Pt Tolerated Procedure Well: Yes Estimated Blood Loss: none Anesthesia Anesthesiologist: kris Anesthesia: MAC Inserted Devices Implant(s) used?: No GI Core Measures 50 yrs or older w/o bx or poly: Not Applicable 10yrs. F/U not recommended: Not Applicable Fabrizio Herrera MD Feb 05, 2019 12:46
--- NOTE | 2019-02-05 12:56 | Pulmonology Progress Note ---
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 She cleared for discharge. check h/h, stable prbc prn GI evaluation appreciated Hemodialysis by nephrology sliding scale aspiration precaution' Subjective ROS Limited/Unobtainable: No Constitutional: Reports: no symptoms HEENT: Repors: no symptoms Allergies: Coded Allergies: No Known Allergies (Unverified , 09/15/16) Objective Last 24 Hour Vital Signs Date Time Temp Pulse Resp B/P (MAP) Pulse Ox O2 Delivery O2 Flow Rate FiO2 02/05/19 09:00 Room Air 02/05/19 08:00 97.5 73 18 144/76 (98) 95 02/05/19 04:00 97.7 79 18 155/75 (101) 95 02/05/19 00:00 97.8 83 18 155/89 (111) 95 02/04/19 21:00 Room Air 02/04/19 20:44 151/81 02/04/19 20:00 97.7 80 18 151/81 (104) 94 02/04/19 16:00 97.8 71 20 139/70 (93) 94 Intake and Output 02/04/19 02/05/19 18:59 06:59 Intake Total 830.0 ml 310.0 ml Output Total 500 ml Balance 330.0 ml 310.0 ml Intake Oral 720 ml 200 ml IV Total 110.0 ml 110.0 ml Hemodialysis UF 500 ml # Voids 1 3 # Bowel Movements 1 1 Objective General Appearance: WD/WN HEENT: normocephalic, atraumatic Respiratory/Chest: chest wall non-tender, normal breath sounds Breasts: no masses Cardiovascular: normal peripheral pulses Abdomen: soft, non tender, no organomegaly Genitourinary: normal external genitalia Skin: no rash Laboratory Tests 02/05/19 04:37: White Blood Count 4.5L, Red Blood Count 5.58H, Hemoglobin 15.1, Hematocrit 48.9H , Mean Corpuscular Volume 88, Mean Corpuscular Hemoglobin 27.0, Mean Corpuscular Hemoglobin Concent 30.8L, Red Cell Distribution Width 15.8H, Platelet Count 251, Mean Platelet Volume 11.8H, Neutrophils (%) (Auto) 45.5, Lymphocytes (%) (Auto) 27.9, Monocytes (%) (Auto) 8.8, Eosinophils (%) (Auto) 15.3H, Basophils (%) (Auto) 2.6H, Prothrombin Time 10.4, Prothromb Time International Ratio 1.0, Activated Partial Thromboplast Time 32, Sodium Level 141, Potassium Level 3.7, Chloride Level 104, Carbon Dioxide Level 25, Anion Gap 12, Blood Urea Nitrogen 39H, Creatinine 3.5H, Estimat Glomerular Filtration Rate 15.9, Glucose Level 101, Calcium Level 8.8, Phosphorus Level 3.2, Magnesium Level 2.0 Current Medications Medications (Trade) Dose Ordered Sig/Althea Route PRN Reason Start Time Stop Time Status Last Admin Dose Admin Acetaminophen (Tylenol) 650 mg Q4H PRN ORAL Fever 02/01/19 09:15 03/03/19 09:14 Albuterol/ Ipratropium (Albuterol/ Ipratropium) 3 ml Q4H PRN HHN Shortness of Breath 02/01/19 09:15 02/06/19 09:14 Atorvastatin Calcium (Lipitor) 10 mg BEDTIME ORAL 02/02/19 21:00 03/03/19 20:59 02/04/19 20:43 Dextrose (Dextrose 50%) 25 ml Q30M PRN IV Hypoglycemia 02/01/19 09:15 03/03/19 09:14 Dextrose (Dextrose 50%) 50 ml Q30M PRN IV Hypoglycemia 02/01/19 09:15 03/03/19 09:14 Docusate Sodium (Colace) 100 mg TID ORAL 02/02/19 18:00 03/03/19 17:59 02/04/19 08:41 Hydralazine HCl (Apresoline) 10 mg EVERY 8 HOURS ORAL 02/02/19 22:00 03/03/19 13:59 02/04/19 20:44 Ondansetron HCl (Zofran) 4 mg Q6H PRN IVP Nausea & Vomiting 02/01/19 09:15 03/03/19 09:14 Pantoprazole (Protonix) 40 mg Q12HR ORAL 02/01/19 14:15 03/03/19 14:14 02/04/19 20:43 Piperacillin Sod/ Tazobactam Sod 3.375 gm/Sodium Chloride 110 ml @ 27.5 mls/hr EVERY 12 HOURS IVPB 02/03/19 21:00 02/08/19 20:59 02/05/19 08:52 Polyethylene Glycol (Miralax) 17 gm DAILYPRN PRN ORAL Constipation 02/01/19 09:15 03/03/19 09:14 Quetiapine Fumarate (SEROquel) 12.5 mg BID ORAL 02/01/19 18:00 03/03/19 17:59 02/04/19 17:16 Sucralfate (Carafate) 1 gm BID ORAL 02/01/19 18:00 03/03/19 20:59 02/04/19 17:16 Temazepam (Restoril) 15 mg HSPRN PRN ORAL Insomnia 02/01/19 09:15 02/08/19 09:14 Lit Cerna MD Feb 05, 2019 12:56
--- NOTE | 2019-02-05 13:40 | Anethesia Preoperative Eval ---
Anesthesia Pre-op PMH/ROS General Date of Evaluation: Feb 05, 2019 Time of Evaluation: 12:41 Anesthesiologist: Maureen Washburn CRNA ASA Score: ASA 4 Mallampati Score Class I : Soft palate, uvula, fauces, pillars visible Class II: Soft palate, uvula, fauces visible Class III: Soft palate, base of uvula visible Class IV: Only hard plate visible Mallampati Classification: Class II Surgeon: Sharon Diagnosis: r/o GI bleeding Surgical Procedure: EGD diagnostic Anesthesia History: none Social History: smoking Family History: no anesthesia problems Allergies: Coded Allergies: No Known Allergies (Unverified , 09/15/16) Medications: see eMAR Patient NPO?: Yes NPO Date: Feb 05, 2019 NPO Time: 00:00 Past Medical History Cardiovascular: Reports: HTN, CAD; Denies: RI, valve dz, arrhythmia, other Pulmonary: Reports: other; Denies: asthma, COPD, KARLY Gastrointestinal/Genitourinary: Reports: ESRD, other - acute tubular nephrosis , hemodialysis dependent, vaginal bleeding; Denies: GERD, CRI Neurologic/Psychiatric: Reports: dementia; Denies: CVA, depression/anxiety, TIA, other Endocrine: Reports: DM; Denies: hypothyroidism, steroids, other HEENT: Denies: cataract (L), cataract (R), glaucoma, ATKA (L), ATKA (R), other Hematology/Immune: Denies: anemia, DVT, bleeding disorder, other Musculoskeletal/Integumentary: Reports: other - cellulitis, decubitus ulcer, Rt leg AKA; Denies: OA, RA, DJD, DDD, edema PMH Narrative: as noted above PSxH Narrative: AKA, AV fistula Anesthesia Pre-op Phys. Exam Physician Exam Last Vital Signs Date Time Temp Pulse Resp B/P (MAP) Pulse Ox O2 Delivery O2 Flow Rate FiO2 02/05/19 13:30 95 18 127/70 100 Room Air 02/05/19 13:20 97.5 02/03/19 20:52 21 Constitutional: NAD, other - oriented x 1 Neurologic: other - dementia Cardiovascular: RRR, no M/R/G Respiratory: other - (+) rhonchi Gastrointestinal: S/NT/ND Airway Exam Mallampati Score: Class II MO: full Neck: FROM TMD: > 3 FB Teeth: missing Dentures: upper, lower Anesthesia Pre-op A/P Labs Hematology Test 02/05/19 04:37 White Blood Count 4.5 K/UL (4.8-10.8) L Red Blood Count 5.58 M/UL (4.20-5.40) H Hemoglobin 15.1 G/DL (12.0-16.0) Hematocrit 48.9 % (37.0-47.0) H Mean Corpuscular Volume 88 FL (80-99) Mean Corpuscular Hemoglobin 27.0 PG (27.0-31.0) Mean Corpuscular Hemoglobin Concent 30.8 G/DL (32.0-36.0) L Red Cell Distribution Width 15.8 % (11.6-14.8) H Platelet Count 251 K/UL (150-450) Mean Platelet Volume 11.8 FL (6.5-10.1) H Neutrophils (%) (Auto) 45.5 % (45.0-75.0) Lymphocytes (%) (Auto) 27.9 % (20.0-45.0) Monocytes (%) (Auto) 8.8 % (1.0-10.0) Eosinophils (%) (Auto) 15.3 % (0.0-3.0) H Basophils (%) (Auto) 2.6 % (0.0-2.0) H Coagulation Test 02/05/19 04:37 Prothrombin Time 10.4 SEC (9.30-11.50) Prothromb Time International Ratio 1.0 (0.9-1.1) Activated Partial Thromboplast Time 32 SEC (23-33) Chemistry Test 02/05/19 04:37 Sodium Level 141 MMOL/L (136-145) Potassium Level 3.7 MMOL/L (3.5-5.1) Chloride Level 104 MMOL/L (98-107) Carbon Dioxide Level 25 MMOL/L (21-32) Anion Gap 12 mmol/L (5-15) Blood Urea Nitrogen 39 mg/dL (7-18) H Creatinine 3.5 MG/DL (0.55-1.30) H Estimat Glomerular Filtration Rate 15.9 mL/min (>60) Glucose Level 101 MG/DL (74-106) Calcium Level 8.8 MG/DL (8.5-10.1) Phosphorus Level 3.2 MG/DL (2.5-4.9) Magnesium Level 2.0 MG/DL (1.8-2.4) Studies Pre-op Studies: EKG - SR, echo - LVEF, 55-60, no LVH Risk Assessment & Plan Assessment: ASA 4, ok to proceed Plan: MAC Status Change Before Surgery: No Pre-Antibiotics Given Within 1 Hr of Incision: No Maureen Washburn CRNA Feb 05, 2019 13:40
--- NOTE | 2019-02-05 13:42 | Immediate Post-Op Evaluation ---
Immediate Post-Op Evalulation Immediate Post-Op Evalulation Procedure: EGD, polypectomy, Argon, plasma coagulation Date of Evaluation: Feb 05, 2019 Time of Evaluation: 13:19 IV Fluids: 0.9 NS 200ml Blood Pressure Systolic: 107 Blood Pressure Diastolic: 62 Pulse Rate: 93 Respiratory Rate: 22 O2 Sat by Pulse Oximetry: 100 Temperature (Fahrenheit): 97.5 Pain Score (1-10): 0 Nausea: No Vomiting: No Complications none Patient Status: awake, reacts, patent Hydration Status: adequate Given Within 1 Hr of Incision: Maureen De La Torre CRNA Feb 05, 2019 13:42
--- NOTE | 2019-02-05 13:44 | 48 Hour Post Anesthesia Eval ---
Post Anesthesia Evaluation Procedure: EGD, polypectomy, Argon, plasma coagulation Date of Evaluation: Feb 05, 2019 Time of Evaluation: 13:43 Blood Pressure Systolic: 133 0: 69 Pulse Rate: 94 Respiratory Rate: 21 Temperature (Fahrenheit): 97.5 O2 Sat by Pulse Oximetry: 100 Airway: patent Nausea: No Vomiting: No Pain Intensity: 0 Hydration Status: adequate Cardiopulmonary Status: stable Mental Status/LOC: patient returned to baseline Follow-up Care/Observations: per hospitalist Post-Anesthesia Complications: none Follow-up care needed: N/A Maureen Washburn CRNA Feb 05, 2019 13:44
--- NOTE | 2019-02-05 14:00 | NUR ---
NURSE NOTES: Patient brought from PACU via gurney in stable condition. v/S stable. Denies any pain or discomfort. IV intact, no s/s of infiltration. daughter and grand daughter @ bedside. Bed is in lowest position and locked.Call light within reach. Will continue to monitor.
--- NOTE | 2019-02-05 15:53 | NUR ---
DISCHARGE PLANNED PT. WILL DC TO [facility] ROOM [address] SKILLED T [phone] FOR NURSE TO NURSE REPORT [facility] HAS BEEN ARRANGED FOR 1730 EXHIBITION ORGANISER SPOKE TO DAUGHTER NIDHI DE LA ROSA WHO IS IN AGREEMENT WITH DC PLAN
--- NOTE | 2019-02-05 15:54 | Nephrology Progress Note ---
Assessment/Plan Problem List: (1) ESRF (end stage renal failure) (2) Hypotension (3) UTI (urinary tract infection) Assessment ESRD : M W Fr UTI ? Vaginal vs Rectal Bleed other conditions Type 2 diabetes. Hypertension. now BP low h/o Anemia of chronic renal disease Hypercholesterolemia. Peripheral vascular disease. Alzheimer's dementia. ?? LUNG Pathology PAST SURGICAL HISTORY: Significant for: 1. Right crtty-hjm-twwq amputation. 2. Open reduction internal fixation of the left femoral neck on 07/20/2016. Plan HD 02/04 next 02/07 K supplement NS bolus check retic count and stool for ob continue meds monitor H&H Rocephin changed to Zosyn for UTI per consultants Subjective ROS Limited/Unobtainable: No Constitutional: Reports: malaise Objective Objective Last 24 Hour Vital Signs Date Time Temp Pulse Resp B/P (MAP) Pulse Ox O2 Delivery O2 Flow Rate FiO2 02/05/19 14:15 97.8 94 18 122/62 98 Room Air 02/05/19 14:00 89 15 125/65 97 Room Air 02/05/19 13:45 91 20 130/69 99 Room Air 02/05/19 13:44 94 21 100 02/05/19 13:42 93 22 100 02/05/19 13:30 95 18 127/70 100 Room Air 02/05/19 13:20 97.5 96 20 112/71 99 Room Air 02/05/19 12:00 98.2 81 18 118/65 (82) 98 02/05/19 09:00 Room Air 02/05/19 08:00 97.5 73 18 144/76 (98) 95 02/05/19 04:00 97.7 79 18 155/75 (101) 95 02/05/19 00:00 97.8 83 18 155/89 (111) 95 02/04/19 21:00 Room Air 02/04/19 20:44 151/81 02/04/19 20:00 97.7 80 18 151/81 (104) 94 02/04/19 16:00 97.8 71 20 139/70 (93) 94 Intake and Output 02/04/19 02/05/19 19:00 07:00 Intake Total 830.0 ml 310.0 ml Output Total 500 ml Balance 330.0 ml 310.0 ml Intake Oral 720 ml 200 ml IV Total 110.0 ml 110.0 ml Hemodialysis UF 500 ml # Voids 1 3 # Bowel Movements 1 1 Laboratory Tests 02/05/19 04:37: White Blood Count 4.5L, Red Blood Count 5.58H, Hemoglobin 15.1, Hematocrit 48.9H , Mean Corpuscular Volume 88, Mean Corpuscular Hemoglobin 27.0, Mean Corpuscular Hemoglobin Concent 30.8L, Red Cell Distribution Width 15.8H, Platelet Count 251, Mean Platelet Volume 11.8H, Neutrophils (%) (Auto) 45.5, Lymphocytes (%) (Auto) 27.9, Monocytes (%) (Auto) 8.8, Eosinophils (%) (Auto) 15.3H, Basophils (%) (Auto) 2.6H, Prothrombin Time 10.4, Prothromb Time International Ratio 1.0, Activated Partial Thromboplast Time 32, Sodium Level 141, Potassium Level 3.7, Chloride Level 104, Carbon Dioxide Level 25, Anion Gap 12, Blood Urea Nitrogen 39H, Creatinine 3.5H, Estimat Glomerular Filtration Rate 15.9, Glucose Level 101, Calcium Level 8.8, Phosphorus Level 3.2, Magnesium Level 2.0 Height (Feet): 5 Height (Inches): 5.00 Weight (Pounds): 147 General Appearance: no apparent distress Objective PE unchanged Marques Motta MD Feb 05, 2019 15:54
[2019-02-05] MEDS ORDERED: Zosyn 2.25 gm in D5W 55ml IV SCH (17:00)
--- NOTE | 2019-02-05 18:18 | Internal Med Progress Note ---
Subjective Physician Name AngelMartin Attending Physician Lit Cerna MD Current Medications Medications (Trade) Dose Ordered Sig/Althea Route PRN Reason Start Time Stop Time Status Last Admin Dose Admin Acetaminophen (Tylenol) 650 mg Q4H PRN ORAL Fever 02/01/19 09:15 03/03/19 09:14 Albuterol/ Ipratropium (Albuterol/ Ipratropium) 3 ml Q4H PRN HHN Shortness of Breath 02/01/19 09:15 02/06/19 09:14 Atorvastatin Calcium (Lipitor) 10 mg BEDTIME ORAL 02/02/19 21:00 03/03/19 20:59 02/04/19 20:43 Dextrose (Dextrose 50%) 25 ml Q30M PRN IV Hypoglycemia 02/01/19 09:15 03/03/19 09:14 Dextrose (Dextrose 50%) 50 ml Q30M PRN IV Hypoglycemia 02/01/19 09:15 03/03/19 09:14 Docusate Sodium (Colace) 100 mg TID ORAL 02/02/19 18:00 03/03/19 17:59 02/04/19 08:41 Hydralazine HCl (Apresoline) 10 mg EVERY 8 HOURS ORAL 02/02/19 22:00 03/03/19 13:59 02/04/19 20:44 Ondansetron HCl (Zofran) 4 mg Q6H PRN IVP Nausea & Vomiting 02/01/19 09:15 03/03/19 09:14 Pantoprazole (Protonix) 40 mg Q12HR ORAL 02/01/19 14:15 03/03/19 14:14 02/04/19 20:43 Piperacillin Sod/ Tazobactam Sod 2.25 gm/Dextrose 55 ml @ 110 mls/hr Q8H IV 02/05/19 17:00 02/12/19 16:59 02/05/19 17:10 Polyethylene Glycol (Miralax) 17 gm DAILYPRN PRN ORAL Constipation 02/01/19 09:15 03/03/19 09:14 Quetiapine Fumarate (SEROquel) 12.5 mg BID ORAL 02/01/19 18:00 03/03/19 17:59 02/05/19 17:10 Sucralfate (Carafate) 1 gm BID ORAL 02/01/19 18:00 03/03/19 20:59 02/05/19 17:10 Temazepam (Restoril) 15 mg HSPRN PRN ORAL Insomnia 02/01/19 09:15 02/08/19 09:14 Allergies: Coded Allergies: No Known Allergies (Unverified , 09/15/16) Subjective Awake, alert, responsive, denies any chest pain, denies any shortness of breath , S/P EGD today: Gastritis. Objective Last Vital Signs Date Time Temp Pulse Resp B/P (MAP) Pulse Ox O2 Delivery O2 Flow Rate FiO2 02/05/19 16:00 98.3 114 18 131/80 (97) 98 02/05/19 14:15 Room Air 02/03/19 20:52 21 Laboratory Tests Test 02/05/19 04:37 White Blood Count 4.5 K/UL (4.8-10.8) L Red Blood Count 5.58 M/UL (4.20-5.40) H Hemoglobin 15.1 G/DL (12.0-16.0) Hematocrit 48.9 % (37.0-47.0) H Mean Corpuscular Volume 88 FL (80-99) Mean Corpuscular Hemoglobin 27.0 PG (27.0-31.0) Mean Corpuscular Hemoglobin Concent 30.8 G/DL (32.0-36.0) L Red Cell Distribution Width 15.8 % (11.6-14.8) H Platelet Count 251 K/UL (150-450) Mean Platelet Volume 11.8 FL (6.5-10.1) H Neutrophils (%) (Auto) 45.5 % (45.0-75.0) Lymphocytes (%) (Auto) 27.9 % (20.0-45.0) Monocytes (%) (Auto) 8.8 % (1.0-10.0) Eosinophils (%) (Auto) 15.3 % (0.0-3.0) H Basophils (%) (Auto) 2.6 % (0.0-2.0) H Prothrombin Time 10.4 SEC (9.30-11.50) Prothromb Time International Ratio 1.0 (0.9-1.1) Activated Partial Thromboplast Time 32 SEC (23-33) Sodium Level 141 MMOL/L (136-145) Potassium Level 3.7 MMOL/L (3.5-5.1) Chloride Level 104 MMOL/L (98-107) Carbon Dioxide Level 25 MMOL/L (21-32) Anion Gap 12 mmol/L (5-15) Blood Urea Nitrogen 39 mg/dL (7-18) H Creatinine 3.5 MG/DL (0.55-1.30) H Estimat Glomerular Filtration Rate 15.9 mL/min (>60) Glucose Level 101 MG/DL (74-106) Calcium Level 8.8 MG/DL (8.5-10.1) Phosphorus Level 3.2 MG/DL (2.5-4.9) Magnesium Level 2.0 MG/DL (1.8-2.4) Intake and Output 02/04/19 02/05/19 19:00 07:00 Intake Total 830.0 ml 310.0 ml Output Total 500 ml Balance 330.0 ml 310.0 ml Intake Oral 720 ml 200 ml IV Total 110.0 ml 110.0 ml Hemodialysis UF 500 ml # Voids 1 3 # Bowel Movements 1 1 Objective General: No acute distress, awake and alert HEENT: NCAT, sclera anicteric, PERRL, EOMI. Neck: Supple, no significant jugular venous distention, Lungs: Good inspiratory effort, clear to auscultation bilaterally, no Wheeze or Rales. Heart: Regular rate and rhythm, normal S1/S2, no murmur. Abdomen: soft, nontender, nondistended. Normoactive bowel sounds. Extremities: No Cyanosis , clubbing or edema, Right LE AKA, Left UE AVF functional. Neuro: A&O x 3, Able to move all extremities Skin: warm, no rash. Psych: Normal mood and affect Assessment/Plan Assessment/Plan Vaginal bleeding less likely ESRD / HD : M W Fr Acute UTI Type 2 diabetes. Hypertension. Anemia of chronic renal disease Hypercholesterolemia. Peripheral vascular disease. Alzheimer's dementia. Lung Mass S/P Right AKA. Plan: Continue on the dialysis as per nephrology recommendation. Broad-spectrum antibiotics with Rocephin for treatment of the UTI DVT prophylaxis with SCD. Monitor laboratory as well as culture. PT mobility. DC planning to SNF. Transabdominal and transvaginal images of the pelvis. Impression: 6 x 4 x 5 cm calcified left adnexal region mass. This is also reported on multiple prior studies dating back to 09/07/2016 and appears unchanged. 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 Distinct left ovary not visualized . Martin Ortiz MD Feb 05, 2019 18:18
--- NOTE | 2019-02-05 19:15 | Procedure Note ---
DATE OF PROCEDURE: 02/05/2019 SURGEON: Fabrizio Herrera M.D. PROCEDURE: Upper endoscopy with polypectomy and cauterization APC. INDICATION: GI bleeding. REASON FOR PROCEDURE: The procedure, risks, benefits, and possible consequences, including hemorrhage, aspiration, perforation and infection, and alternative treatments, were explained to the patient/legal guardian by Dr. Fabrizio Herrera and the patient/legal guardian understood and accepted these risks. PROCEDURE IN DETAIL: After informed consent was obtained and the patient was adequately sedated, Olympus upper endoscope was advanced from the mouth into the second portion of the duodenum and retroflexion was performed in the stomach. The patient had multiple polyps in the stomach, body, and antrum. The largest one was 1.2 cm in size. The next large one was 1 cm, then next one was 8, and the other one was 6. These 4 polyps were removed with the hot snare polypectomy technique. The patient also has evidence of changes in the antrum suggestive of GAVE. At this time, we used an APC machine to APC this area and the antrum. The patient tolerated the procedure very well without any complication. SUMMARY OF FINDINGS: 1. Multiple gastric polyps status post polypectomy. 2. GAVE status post APC. RECOMMENDATIONS: 1. Follow laboratories. 2. Resume diet. 3. Followup pathology. Most probably, the patient would need a repeat endoscopy may be in three months going back for more cauterization of the GAVE in the antrum and also removing more polyps. I want to thank, Dr. Cerna, for this kind referral. Fabrizio Herrera M.D. DR: CORTNEY JOB#: [id number] CC: Lit Cerna M.D.; Fax#: [phone]
--- NOTE | 2019-02-05 19:33 | NUR ---
NURSE NOTES: Patient was picked up via two ambulance personnel from [facility]. Patient is stable. V/S stable. Denies any pain or discomfort. No episodes of bleeding. IV and ID were removed. No s/s of infection on IV removal site. Discharge instruction given to halfway nurse Stephania. Proper incontinent care done and wound dressing changed and picture obtained. No skin break. All belongings accounted for. two rings and 1 necklace worn by patient. daughter was informed of discharge.
--- NOTE | 2019-02-06 12:35 | Discharge Summary ---
Discharge Summary Discharge Summary _ DATE OF ADMISSION: 02/01/2019 DATE OF DISCHARGE: 02/05/2019 DISCHARGED BY: Dr. Lit Cerna CONSULTANTS: Dr. Aung Motta BRIEF HOSPITAL COURSE: Patient is a 68-year-old female, with history of hypertension, diabetes, renal failure on hemodialysis, status post right AKA, presented to ED with chief complaint of vaginal bleeding for 1 day. correction found large clots of blood in her diaper. Patient has a history of dementia, history was limited. Patient denied pain. There was no nausea or vomiting. Unclear if the blood was from rectum or vagina. On evaluation at ED, vital signs were stable. Blood work did not show any leukocytosis and 16, hematocrit 54. Potassium was 3.2, BUN 21, creatinine 2.9. Troponin was negative. INR was 1.0. Urinalysis showed 4+ protein, 2+ blood, negative nitrite, 3+ leukocyte esterase, 2-4 RBC and 10-15 WBC. She was then admitted for evaluation of bleeding. Fluid balance was monitored. She was given IV Rocephin for UTI. H&H monitored. correction medications were continued. She was given inpatient hemodialysis. She was placed on SCDs for DVT prophylaxis. She was seen by GI. Patient had stable H&H. There was no obvious GI bleed although stool OB was positive. Diet was advanced and was tolerating diet. CLINICAL DIRECTOR evaluation was done. Pelvic ultrasound showed uterus 7.9 cm by length by 4.4 cm AP. Endometrium was thick, measuring 5.7 mm upon review of images. There was a solid mass with calcification and shadowing seen on the left adnexal region, measuring 6 x 4 x 5 cm. Right ovary measured 2.8 cm in length. Distinct left ovary could not be identified. There was no free cul-de-sac fluid. Previously reported calcified fundal fibroid and previously demonstrated endometrial debris not evident. Pelvic examination was done. There was no bleeding noted on internal exam. There was no blood in the vault, no signs of active vaginal bleeding. In comparison with prior ultrasound, endometrium was markedly thickened in 2017. This admission endometrium measured 5.7 mm. She was recommended outpatient endometrial biopsy. Urine culture showed growth of ESBL E. coli, resistant to ceftriaxone. Antibiotic was switched to Zosyn. She had an episode of hypotension. She was given IV bolus. On 02/05/2019, she underwent EGD. Patient had multiple polyps in the stomach, body and antrum. Largest was 1.2 cm in size, there were 4 polyps removed with a hot snare polypectomy technique. Patient also had evidence of changes in the antrum suggestive of gastric antral vascular ectasia (GAVE). APC ( Argon photocoagulation) machine was used to APC the area and antrum. Recommended repeat endoscopy in 3 months for more cauterization of the GAVE in the antrum and polyp removal. Hemoglobin stable. Vital signs stable. [facility] FINAL DIAGNOSES: Acute bleed, possible GI bleed, less likely vaginal bleed ESBL E. coli UTI End stage renal disease on hemodialysis Type II diabetes mellitus Hypertension Anemia of chronic renal disease Hypercholesterolemia Peripheral vascular disease status post right AKA Alzheimer's dementia Lung mass Multiple gastric polyps status post polypectomy Gastric antral vascular ectasia (GAVE) status post argon photocoagulation Status post upper endoscopy with polypectomy and cauterization APC on 02/05/2019 DISPOSITION: Patient was discharged to a SNF. DISCHARGE MEDICATIONS: Refer to Discharge Medication List. I have been assigned to complete a discharge summary on this account, I was not involved with the patient's management. Melissa Rogers NP Feb 06, 2019 12:35
== END 2019-02-05 19:30 | DRG 377 ==
LOC: EDBD 22:18 → EMR 22:37 → 3E 02-01 01:04 → UNDOADMIN 02-01 01:04 → 4E 02-01 01:04 → EDBEDREQ 02-01 01:09
PROC: 5A1D70Z Performance of Urinary Filtration, Intermittent, Less than 6 Hours Per Day (ICD-10-PCS; 2019-02-04)
PROC: 0DB68ZZ Excision of Stomach, Via Natural or Artificial Opening Endoscopic (ICD-10-PCS; principal; 2019-02-05 12:52)
PROC: 0D578ZZ Destruction of Stomach, Pylorus, Via Natural or Artificial Opening Endoscopic (ICD-10-PCS; principal; 2019-02-05 12:52)
PROC: 0DB78ZZ Excision of Stomach, Pylorus, Via Natural or Artificial Opening Endoscopic (ICD-10-PCS; principal; 2019-02-05 12:52)
DX: K31.811 Angiodysplasia of stomach and duodenum with bleeding (principal); N18.6 End stage renal disease; I12.0 Hypertensive chronic kidney disease with stage 5 chronic kidney disease or end stage renal disease; N39.0 Urinary tract infection, site not specified; N93.9 Abnormal uterine and vaginal bleeding, unspecified; Z99.2 Dependence on renal dialysis; I73.9 Peripheral vascular disease, unspecified; G30.9 Alzheimer's disease, unspecified; F02.80 Dementia in other diseases classified elsewhere, unspecified severity, without behavioral disturbance, psychotic disturbance, mood disturbance, and anxiety; Z89.611 Acquired absence of right leg above knee; B96.20 Unspecified Escherichia coli [E. coli] as the cause of diseases classified elsewhere; Z16.12 Extended spectrum beta lactamase (ESBL) resistance; E11.22 Type 2 diabetes mellitus with diabetic chronic kidney disease; D63.1 Anemia in chronic kidney disease; E78.00 Pure hypercholesterolemia, unspecified; R91.8 Other nonspecific abnormal finding of lung field; K31.7 Polyp of stomach and duodenum; K31.819 Angiodysplasia of stomach and duodenum without bleeding; I95.9 Hypotension, unspecified
CPT/HCPCS: 36415; 76830; 76856; 80048; 80053; 80061; 81001; 82270; 82607; 82746; 82977; 83036; 83735; 83880; 84100; 84443; 84484; 84550; 85025; 85044; 85610; 85730; 87081; 87086; 87181; 93306; 94003; 94150; 94664; 96360; 99285; J8499

== ENCOUNTER 2019-02-05 22:48 | Inpatient (IN) | payer MEDICARE, MEDICAID ==
[~2019-02-05] VITALS: Ht 167.6 cm; Wt 74.4 kg
[2019-02-05] MEDS ORDERED: Pantoprazole Inj IV ONE (23:00)
--- NOTE | 2019-02-05 23:00 | NUR ---
ED Nurse Note: RECIEVED PT BIBA FROM [facility] WITH C/O LOWER GI BLEED WITH DARK COLORED STOOLS, PT IS AWAKE, ALERT AND ORIENTED, PT SPEAKS WITH SLOW RESPONSE BUT IS ORIENTED, PT ASKING WHAT IS HAPPENING AND C/O ABDOMINAL PAIN, PT ALSO REPORTED WITH LOW B/P, IMMEDIATELY GOWNED AND PLACED ON CARDIAC MONITORING WITH VERY LOW B/P READING, LINE PLACED AND LABS DRAWN, MD AT BEDSIDE, WILL RESUME CARE ORDERD AND CONTINUE TO CLOSELY MONITOR.
[2019-02-05] MEDS ORDERED: Pantoprazole Inj ONE (23:12)
[2019-02-05 23:41] LABS: BASOPHILS % (AUTO) 1.2 % (0.0-2.0); EOSINOPHILS % (AUTO) 0.5 % (0.0-3.0); HEMATOCRIT 41.1 % (37.0-47.0); HEMOGLOBIN 13.2 G/DL (12.0-16.0); LYMPHOCYTES % (AUTO) 13.1 % (20.0-45.0); MEAN CORPUSCULAR VOLUME 87 FL (80-99); MONOCYTES % (AUTO) 4.5 % (1.0-10.0); NEUTROPHILS % (AUTO) 80.6 % (45.0-75.0); PLATELET COUNT 311 K/UL (150-450); RED BLOOD COUNT 4.74 M/UL (4.20-5.40); RED CELL DISTRIBUTION WIDTH 15.7 % (11.6-14.8); WHITE BLOOD COUNT 9.9 K/UL (4.8-10.8)
[2019-02-05 23:42] LABS: ANION GAP 13 mmol/L (5-15); BLOOD UREA NITROGEN 67 mg/dL (7-18); CALCIUM 8.8 MG/DL (8.5-10.1); CARBON DIOXIDE 23 MMOL/L (21-32); CHLORIDE 106 MMOL/L (98-107); CREATININE 4.3 MG/DL (0.55-1.30); POTASSIUM 5.1 MMOL/L (3.5-5.1); SODIUM 142 MMOL/L (136-145)
[2019-02-05 23:46] LABS: ALANINE AMINOTRANSFERASE 17 U/L (12-78); ALBUMIN 2.8 G/DL (3.4-5.0); ALBUMIN/GLOBULIN RATIO 0.8 (1.0-2.7); ALKALINE PHOSPHATASE 128 U/L (46-116); ASPARTATE AMINO TRANSFERASE 19 U/L (15-37); BILIRUBIN,TOTAL 0.3 MG/DL (0.2-1.0)
[2019-02-06] VITALS (23 sets, daily range): BP systolic 68–141; BP diastolic 43–71
--- NOTE | 2019-02-06 00:45 | NUR ---
ED Nurse Note: PT CONTINUES TO REST QUIETLY IN BED, PT INCONTINENT OF STOOL, VERY LARGE AMOUNT OF BRIGHT AND DARKL RED COLORED BLOOD, PT CLEANED, SKIN HAS HEALED ULCERS WITH LIGHT COLORED SKIN, NO OPENINGS OR REDNESS, PT SWABBED FOR ADMISSION, B/P REMAINWS FLUCTUATING, FLUIDS HELP AND INFUSING ORDERED, PT ALSO REPOSITIONED AND TURNED WITH PILLOWS AND RIGHT AKA ELEVATED ON PILLOWS ALSO, WILL CONTINUE TO CLOSELY MONITOR AND PREPAER FOR ADMISSION TO HOSPITAL, PT REMAINS SPEAKING AND ORIENTED.
--- NOTE | 2019-02-06 02:00 | NUR ---
ED Nurse Note: pt continues to rest in bed, no changes, pt b/p remains low, md aware, fluids continuing as ordered, iv site intact and patent, pt repositioned and turned, will continue to closely monitor and prepare for admission.
--- NOTE | 2019-02-06 04:00 | NUR ---
ED Nurse Note: PT INCONTINENT OF STOOL AGAIN, VERY LARGE AMOUNT, WATERY LIKE, BLOODY STOOL, PT GIVEN COMPLETE BATH AND LINEN CHANGE, PT CONTINUES TO C/O ABD PAIN, MD IS AWARE, PT B/P LOW AND LOWER AFTER STOOL, MD IS AWARE, MEDS AND FLUIDS GIVEN ORDERED, PT HAS ROOM FOR ADMISION, B/P TOO LOW CURRENTLY FOR BED ORDERED, MD AWARE AND MORE LAB ORDERS RECIEVED, WAITING FOR RESULTS BEFORE FINAL DECISION FOR ADMISSION PLACEMENT, SDU OR ICU PER CHRISTI CUEVAS CONTINUE TO CLOSELY MONITOR.
[2019-02-06] MEDS ORDERED: Pantoprazole Inj IVP ONE (04:15)
[2019-02-06] MEDS ORDERED: Pantoprazole 80 MG in NS 250 ML IV SCH (05:15)
--- NOTE | 2019-02-06 05:35 | NUR ---
ED Nurse Note: Pt continuing to have loose, watery stools, blood, pt remains awake and alert, pt aware of needed blood transfusion, repeat labs drawn and sent, pt remains with mild abdominal pain, no cp, no sob or labored breathing, iv site intact and patent, second line started, protonix given as ordered, md aware of pt worsening and continued stools, will continue to closely monitor and prepare for admission.
--- NOTE | 2019-02-06 06:15 | NUR ---
ED Nurse Note: PT AGAIN WITH LOOSE, WATERY, BLOODY STOOLS, GIVEN BATH AND LINEN CHANGE, PT BEING PREPARED FOR BLOOD TRANFUSION, HAD LARGE DROP IN HEMOGLOBIN LEVEL, MD AWARE, PT SIGNED CONSENT FORM AND GIVEN PAMPLET AND ALLOWED TO ASK QUESTIONS, PT DENIES CP, NO SOB OR LABORED BREATHING, IV SITE X 2 PATENT, WILL CONTINUE TO CLOSELY MONITOR AND PREPARE FOR TRANSFUSION AND ADMIT TO NOW ICU UNIT.
[2019-02-06 06:19] LABS: HEMATOCRIT 19.7 % (37.0-47.0); MEAN CORPUSCULAR VOLUME 89 FL (80-99); PLATELET COUNT 139 K/UL (150-450); RED BLOOD COUNT 2.22 M/UL (4.20-5.40); RED CELL DISTRIBUTION WIDTH 16.3 % (11.6-14.8); WHITE BLOOD COUNT 9.1 K/UL (4.8-10.8)
[2019-02-06 06:23] LABS: HEMOGLOBIN 6.2 G/DL (12.0-16.0)
[2019-02-06] MEDS ORDERED: Desmopressin (DDAVP) Inj IV ONE (06:30)
--- NOTE | 2019-02-06 06:47 | Emergency Room Report ---
History of Present Illness General Chief Complaint: Gastrointestinal Bleed Source: Medical Record Present Illness HPI She is a 68-year-old female presented after increased hematemesis. Patient was brought in by custodial. 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 Patient was started on patient was noted to be dialyzed one day prior to arrival. She had been noted to have a count of red bloody emesis. She was noted to be on dialysis Sunday and Sunday. Allergies: Coded Allergies: No Known Allergies (Unverified , 09/15/16) Patient History Last Menstrual Period: 2 decades ago Reviewed Nursing Documentation: PMH: Agreed; PSxH: Agreed Nursing Documentation-PMH Hx Diabetes: Yes Hx Cancer: No Hx Gastrointestinal Problems: Yes - hyperlipidemia, GERD Hx Cerebrovascular Accident: Yes Hx Dementia: Yes Hx Alzheimer's Disease: Yes Hx Paralysis: Yes Hx Dysphasia: Yes Hx Weakness: Yes Review of Systems All Other Systems: negative except mentioned in HPI Physical Exam Vital Signs Date Time Temp Pulse Resp B/P (MAP) Pulse Ox O2 Delivery O2 Flow Rate FiO2 02/05/19 22:43 97.2 135 16 70/43 91 Room Air Sp02 EP Interpretation: reviewed, normal General Appearance: normal inspection, alert, GCS 15, Chronically Ill Head: atraumatic ENT: normal ENT inspection, hearing grossly normal, normal voice Neck: normal inspection, full range of motion, supple, no bony tend Respiratory: normal inspection, lungs clear, normal breath sounds, no respiratory distress, no retraction, no wheezing Cardiovascular #1: regular rate, rhythm, no edema Gastrointestinal: normal inspection, normal bowel sounds, non tender, soft, no guarding, no hernia Genitourinary: no CVA tenderness Musculoskeletal: normal inspection, back normal, normal range of motion Neurologic: normal inspection, alert, responsive, speech normal, motor weakness - upper extremity Psychiatric: normal inspection, judgement/insight normal, mood/affect normal Skin: normal inspection, normal color, no rash Medical Decision Making Diagnostic Impression: Primary Impression: ESRF (end stage renal failure) Additional Impressions: Hypotension Anemia Upper GI bleeding ER Course The patient presented for hematemesis. The differential diagnosis included but was not limited to ulcer, diverticulosis, aortic aneurysm, arteriovenous formation, coagulopathy, cancer among others. Because of complexity of patient' s case laboratory testing and imaging studies were ordered. Noted to have initial adequate hemoglobin. Patient was started on IV fluids. She was noted to be initially hypotensive. Patient was typed and crossmatched for blood. Repeat hemoglobin showed market decrease in blood count. Dr. Cerna was contacted for inpatient management due to complexity of medical condition and primary care physician. Dr. Herrera contacted for GI consult. She will be transfused blood due to hypotension. She was started on a Protonix drip.DDAVP was ordered due to patient's renal disease and possible poorly functioning platelets Labs Test 02/05/19 22:45 02/06/19 06:05 Prothrombin Time 10.7 SEC (9.30-11.50) Prothromb Time International Ratio 1.0 (0.9-1.1) Activated Partial Thromboplast Time 23 SEC (23-33) Sodium Level 142 MMOL/L (136-145) Potassium Level 5.1 MMOL/L (3.5-5.1) Chloride Level 106 MMOL/L (98-107) Carbon Dioxide Level 23 MMOL/L (21-32) Anion Gap 13 mmol/L (5-15) Blood Urea Nitrogen 67 mg/dL (7-18) Creatinine 4.3 MG/DL (0.55-1.30) Estimat Glomerular Filtration Rate 12.5 mL/min (>60) Glucose Level 214 MG/DL (74-106) Calcium Level 8.8 MG/DL (8.5-10.1) Total Bilirubin 0.3 MG/DL (0.2-1.0) Aspartate Amino Transf (AST/SGOT) 19 U/L (15-37) Alanine Aminotransferase (ALT/SGPT) 17 U/L (12-78) Alkaline Phosphatase 128 U/L (46-116) Troponin I 0.031 ng/mL (0.000-0.056) Total Protein 6.3 G/DL (6.4-8.2) Albumin 2.8 G/DL (3.4-5.0) Globulin 3.5 g/dL Albumin/Globulin Ratio 0.8 (1.0-2.7) Lipase 186 U/L (73-393) White Blood Count 9.1 K/UL (4.8-10.8) Red Blood Count 2.22 M/UL (4.20-5.40) Hemoglobin 6.2 G/DL (12.0-16.0) Hematocrit 19.7 % (37.0-47.0) Mean Corpuscular Volume 89 FL (80-99) Mean Corpuscular Hemoglobin 27.9 PG (27.0-31.0) Mean Corpuscular Hemoglobin Concent 31.5 G/DL (32.0-36.0) Red Cell Distribution Width 16.3 % (11.6-14.8) Platelet Count 139 K/UL (150-450) Mean Platelet Volume 11.0 FL (6.5-10.1) Neutrophils (%) (Auto) % (45.0-75.0) Lymphocytes (%) (Auto) % (20.0-45.0) Monocytes (%) (Auto) % (1.0-10.0) Eosinophils (%) (Auto) % (0.0-3.0) Basophils (%) (Auto) % (0.0-2.0) Last Vital Signs Date Time Temp Pulse Resp B/P (MAP) Pulse Ox O2 Delivery O2 Flow Rate FiO2 02/06/19 03:25 98.1 107 18 105/63 100 Room Air Status: unchanged Disposition: ADMITTED INPATIENT Condition: Critical Referrals: Lit Cerna MD (PCP) Amadou Bustamante MD Feb 06, 2019 06:47
--- NOTE | 2019-02-06 07:00 | NUR ---
ED Nurse Note: PT STARTED ON BLOOD TRANSFUSION OF PRBC, PT REMAINS ON CARDIAC MONITORING, WITH LOW B/P, STAYED AT PT BEDSIDE FIRST 15 MINUTES OF TRANSFUSION, NO REACTION NOTED, TOLERATING WELL, WILL CONTINUE TO CLOSELY MONITOR, PT REPOSITIONED AND TURNED WITH PILLOWS.
--- NOTE | 2019-02-06 07:44 | NUR ---
ED Nurse Note: PLACED CALL TO ICU IN ATTEMPT TO GIVE REPORT, NO NURSE AVAILABLE AT THIS TIME, PT CONTINUING WITH BLOOD TRANSFUSION, TOLERATING WELL, IV SITE INTACT AND PATENT AND NO S/S OF ADVERSE REACTION NOTED, REPORT GIVEN TO AM ONCOMING NURSE TO RESUME CARE.
[2019-02-06] MEDS: Pantoprazole 80 MG in NS 250 ML IV SCH ×2 (08:00→21:25)
--- NOTE | 2019-02-06 08:00 | NUR ---
NURSE NOTES: Received pt from SULLY Doss RN. Pt is A/Ox1; confused but knows her name and follows commands. No s/sx of acute distress noted. Denies pain at this time. Patient is actively bleeding from rectum. Dark loose bloody stool noted. Rectal temp 95.3, bear hugger applied. Second PRBC infusing now. Protonix gtt infusing @ 25ml/hr. Consent for EGD w/possible biopsy T/O via daughter, Christiana White. Pt is on RA, Spo96%, BP 76/48, RR 16, ST on secured entrance monitor 105 HR. Abdomen is soft, non distended. Breathing even and unlabored. IV site on RFA 20G and RW 20G asymptomatic. Notified Dr. Cerna for admission orders, said he will put in himself. Skin intact, hyperpigmentation on sacral noted with old healed scar. patient is a HD patient, STEFANIE AV shutn noted with positive thrill and bruit. Anuric. Bed locked, alarmed and in lowest position. Will continue plan of care.
--- NOTE | 2019-02-06 08:05 | NUR ---
ED Nurse Note: reports given to MAYO Treviño at ICU.
--- NOTE | 2019-02-06 10:18 | History and Physical ---
History of Present Illness General Date patient seen: Feb 06, 2019 Reason for Hospitalization: Gastrointestinal Bleed Present Illness HPI 68 year old female with hx of ESRF, on HD, R AKA, DM, group home resident [place] [facility] was brought back after an episode of lower GI bleeding and coffee ground emesis. She was hypotensive and admitted to ICU. Allergies: Coded Allergies: No Known Allergies (Unverified , 09/15/16) Medication History Scheduled Aspirin* (Aspirin*), 81 MG ORAL DAILY, (Reported) Atorvastatin Calcium* (Atorvastatin Calcium*), 20 MG ORAL BEDTIME, (Reported) Hydralazine Hcl* (Hydralazine Hcl*), 25 MG ORAL EVERY 8 HOURS, (Reported) Insulin Glargine (Lantus), 20 SUBQ BEDTIME, (Reported) Lorazepam* (Lorazepam*), 2 MG ORAL DAILY, (Reported) Metoclopramide Hcl* (Metoclopramide Hcl*), 5 MG ORAL EVERY 6 HOURS, (Reported) Quetiapine Fumarate* (Seroquel*), 12.5 MG ORAL BID, (Reported) Sucralfate* (Carafate*), 1 GM ORAL BEDTIME, (Reported) [Nephro Aid], 1 TAB PO DAILY, (Reported) Scheduled PRN Acetaminophen* (Acetaminophen 325MG Tablet*), 650 MG ORAL Q4HR PRN for Mild Pain (Pain Scale 1-3), (Reported) Temazepam (Temazepam*), 15 MG ORAL HS PRN for Insomnia, (Reported) Miscellaneous Medications Insulin Aspart (Novolog), 100 UNIT SQ, (Reported) Patient History Healthcare decision maker Resuscitation status Advanced Directive on File Past Medical/Surgical History Past Medical/Surgical History: (1) Femur fracture, left (2) Diabetes mellitus (3) ESRF (end stage renal failure) (4) S/P AKA (above knee amputation) unilateral Review of Systems Constitutional: Reports: no symptoms Eye: Reports: no symptoms ENT: Reports: no symptoms Physical Exam General Appearance: WD/WN, cachetic Lines, tubes and drains: peripheral HEENT: normocephalic, atraumatic Neck: non-tender, normal alignment Respiratory/Chest: chest wall non-tender, lungs clear Breasts: no masses Cardiovascular/Chest: normal peripheral pulses Abdomen: normal bowel sounds, non tender Genitourinary/Rectal: normal genital exam, normal rectal exam, normal prostate exam Extremities: normal range of motion, non-tender Skin Exam: normal pigmentation 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 Last 24 Hour Vital Signs Date Time Temp Pulse Resp B/P (MAP) Pulse Ox O2 Delivery O2 Flow Rate FiO2 02/06/19 08:04 97.8 100 25 76/45 100 Room Air 02/06/19 06:57 Room Air 02/06/19 05:30 98.1 102 18 68/47 100 Room Air 107 02/06/19 04:25 98.1 108 21 84/56 100 Room Air 102 02/06/19 03:25 98.1 107 18 105/63 100 Room Air 02/06/19 02:15 108 18 101/62 95 Room Air 02/06/19 01:00 98.1 106 16 98/64 100 Room Air 02/06/19 00:00 97.2 116 16 76/61 99 Room Air 02/05/19 23:00 135 16 Room Air 02/05/19 22:43 97.2 135 16 70/43 91 Room Air Intake and Output 02/05/19 02/06/19 19:00 07:00 # Bowel Movements 2 2 Laboratory Tests Test 02/05/19 22:45 02/06/19 06:05 White Blood Count 9.9 K/UL (4.8-10.8) # 9.1 K/UL (4.8-10.8) Red Blood Count 4.74 M/UL (4.20-5.40) 2.22 M/UL (4.20-5.40) L Hemoglobin 13.2 G/DL (12.0-16.0) 6.2 G/DL (12.0-16.0) Hematocrit 41.1 % (37.0-47.0) 19.7 % (37.0-47.0) #L Mean Corpuscular Volume 87 FL (80-99) 89 FL (80-99) Mean Corpuscular Hemoglobin 27.8 PG (27.0-31.0) 27.9 PG (27.0-31.0) Mean Corpuscular Hemoglobin Concent 32.1 G/DL (32.0-36.0) 31.5 G/DL (32.0-36.0) L Red Cell Distribution Width 15.7 % (11.6-14.8) H 16.3 % (11.6-14.8) H Platelet Count 311 K/UL (150-450) 139 K/UL (150-450) #L Mean Platelet Volume 10.1 FL (6.5-10.1) 11.0 FL (6.5-10.1) H Neutrophils (%) (Auto) 80.6 % (45.0-75.0) H % (45.0-75.0) Lymphocytes (%) (Auto) 13.1 % (20.0-45.0) L % (20.0-45.0) Monocytes (%) (Auto) 4.5 % (1.0-10.0) % (1.0-10.0) Eosinophils (%) (Auto) 0.5 % (0.0-3.0) % (0.0-3.0) Basophils (%) (Auto) 1.2 % (0.0-2.0) % (0.0-2.0) Prothrombin Time 10.7 SEC (9.30-11.50) Prothromb Time International Ratio 1.0 (0.9-1.1) Activated Partial Thromboplast Time 23 SEC (23-33) Sodium Level 142 MMOL/L (136-145) Potassium Level 5.1 MMOL/L (3.5-5.1) Chloride Level 106 MMOL/L (98-107) Carbon Dioxide Level 23 MMOL/L (21-32) Anion Gap 13 mmol/L (5-15) Blood Urea Nitrogen 67 mg/dL (7-18) H Creatinine 4.3 MG/DL (0.55-1.30) H Estimat Glomerular Filtration Rate 12.5 mL/min (>60) Glucose Level 214 MG/DL (74-106) #H Calcium Level 8.8 MG/DL (8.5-10.1) Total Bilirubin 0.3 MG/DL (0.2-1.0) Aspartate Amino Transf (AST/SGOT) 19 U/L (15-37) Alanine Aminotransferase (ALT/SGPT) 17 U/L (12-78) Alkaline Phosphatase 128 U/L (46-116) H Troponin I 0.031 ng/mL (0.000-0.056) Total Protein 6.3 G/DL (6.4-8.2) L Albumin 2.8 G/DL (3.4-5.0) L Globulin 3.5 g/dL Albumin/Globulin Ratio 0.8 (1.0-2.7) L Lipase 186 U/L (73-393) Differential Total Cells Counted 100 Neutrophils % (Manual) 90 % (45-75) H Lymphocytes % (Manual) 6 % (20-45) L Monocytes % (Manual) 1 % (1-10) Eosinophils % (Manual) 3 % (0-3) Basophils % (Manual) 0 % (0-2) Band Neutrophils 0 % (0-8) Platelet Estimate Adequate Platelet Morphology Normal Anisocytosis 1+ Schistocytes 1+ Microbiology Date/Time Source Procedure Growth Status 02/06/19 03:00 Rectum Received Height (Feet): 5 Height (Inches): 7.00 Weight (Pounds): 160 Medications Current Medications Medications (Trade) Dose Ordered Sig/Althea Route PRN Reason Start Time Stop Time Status Last Admin Dose Admin Pantoprazole 80 mg/Sodium Chloride 250 ml @ 25 mls/hr Q10H IV 02/06/19 05:15 03/08/19 05:14 Assessment/Plan Problem List: (1) Hemorrhagic shock ICD Codes: R57.8 - Hemorrhagic shock SNOMED: 544533 (2) Upper GI bleeding ICD Codes: K92.2 - Gastrointestinal hemorrhage, unspecified SNOMED: 70540231 (3) Anemia ICD Codes: D64.9 - Anemia, unspecified SNOMED: 383975088 (4) ESRF (end stage renal failure) ICD Codes: N18.6 - End stage renal disease SNOMED: 31284676 (5) S/P AKA (above knee amputation) unilateral ICD Codes: Z89.619 - Acquired absence of unspecified leg above knee SNOMED: 72262830, 96773411, 064462164 (6) Diabetes mellitus ICD Codes: E11.9 - Type 2 diabetes mellitus without complications SNOMED: 12338772 Respiratory: monitor respiratory rate, adjust FIO2, CXR Cardiac: continue to monitor HR/BP Renal: F/U I&O, keep IV fluid, check electrolytes Infectious Disease: check cultures Gastrointestinal: continue feedings/current rate Endocrine: check TSH, check HgA1C Hematologic: monitor H/H, transfuse if hgb<8.5 Neurologic: PRN Morphine, keep patient comfortable Affect: PRN ativan Prophylaxis: Protonix, SCDs Disposition: keep in ICU Notes Reviewed: 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, consultants, manager of case Lit Cerna MD Feb 06, 2019 10:18
--- NOTE | 2019-02-06 10:25 | NUR ---
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 ESRD VS: BP 70/43, P 135, T 97.2, RR 16 SpO2 91 HgB 6.2, Hct 19.7, BUN 67, CR 4.3 IS: NS 500ml IV PROTONIX 40mg IV DESMOPRESSIN ACETATE 20mcg IV ADMITTED TO ICU DC PLAN RETURN TO [facility]
[2019-02-06] MEDS ORDERED: Mylanta II UD 30ml ORAL PRN (10:30)
[2019-02-06] MEDS ORDERED: Nitroglycerin Subl 0.4mg tab SL PRN (10:30)
[2019-02-06] MEDS: DOPamine 400mg/250ml 250 ML IV SCH (10:30)
[2019-02-06] MEDS ORDERED: Ketorolac 30mg Inj IV PRN (10:30)
[2019-02-06] MEDS: D5NS 1,000 ML IV SCH ×2 (10:35→20:15)
[2019-02-06] MEDS ORDERED: Premarin Inj IV ONE (11:00)
--- NOTE | 2019-02-06 11:15 | NUR ---
NURSE NOTES: x2 PRBC completed, no s/sx of transfusion reaction. Patient scheduled to have EGD w/biopsy today. Consent signed and in chart. VSS.
[2019-02-06] MEDS ORDERED: Phytonadione 10 MG in D5W 55 ML IVPB ONE (12:00)
--- NOTE | 2019-02-06 12:15 | NUR ---
NURSE NOTES: Escorted patient down to GI lab for EGD with Dr. Herrera.
[2019-02-06] MEDS ORDERED: Lidocaine 1% MPF 10mg/ml 5ml ONE (12:30)
[2019-02-06] MEDS ORDERED: Phenylephrine 10mg/ml Vial ONE (12:30)
[2019-02-06] MEDS ORDERED: Esmolol 100mg/10ml Inj ONE (12:30)
[2019-02-06] MEDS ORDERED: Propofol 200mg/20ml IV ONE (12:30)
[2019-02-06] MEDS ORDERED: Zemuron 50mg/5ml Inj IV ONE (12:30)
--- NOTE | 2019-02-06 12:30 | General Progress Note ---
Assessment/Plan Problem List: (1) Upper GI bleeding ICD Codes: K92.2 - Gastrointestinal hemorrhage, unspecified SNOMED: [id number] Assessment/Plan possibly from polypectomy side plan EGD for today Subjective ROS Limited/Unobtainable: No Allergies: Coded Allergies: No Known Allergies (Unverified , 09/15/16) Objective Last 24 Hour Vital Signs Date Time Temp Pulse Resp B/P (MAP) Pulse Ox O2 Delivery O2 Flow Rate FiO2 02/06/19 12:00 Room Air 02/06/19 11:00 107 20 94/60 (71) 100 02/06/19 10:30 107 22 90/58 (69) 100 02/06/19 10:00 108 21 87/54 (65) 100 02/06/19 09:30 107 23 80/55 (63) 88 02/06/19 09:00 104 02/06/19 09:00 105 23 77/43 (54) 100 02/06/19 08:50 95.3 104 22 69/46 (54) 100 02/06/19 08:04 97.8 100 25 76/45 100 Room Air 02/06/19 08:00 Room Air 02/06/19 06:57 Room Air 02/06/19 05:30 98.1 102 18 68/47 100 Room Air 107 02/06/19 04:25 98.1 108 21 84/56 100 Room Air 102 02/06/19 03:25 98.1 107 18 105/63 100 Room Air 02/06/19 02:15 108 18 101/62 95 Room Air 02/06/19 01:00 98.1 106 16 98/64 100 Room Air 02/06/19 00:00 97.2 116 16 76/61 99 Room Air 02/05/19 23:00 135 16 Room Air 02/05/19 22:43 97.2 135 16 70/43 91 Room Air Intake and Output 02/05/19 02/06/19 18:59 06:59 # Bowel Movements 2 2 Laboratory Tests 02/05/19 22:45: White Blood Count 9.9#, Red Blood Count 4.74, Hemoglobin 13.2, Hematocrit 41.1, Mean Corpuscular Volume 87, Mean Corpuscular Hemoglobin 27.8, Mean Corpuscular Hemoglobin Concent 32.1, Red Cell Distribution Width 15.7H, Platelet Count 311, Mean Platelet Volume 10.1, Neutrophils (%) (Auto) 80.6H, Lymphocytes (%) (Auto) 13.1L, Monocytes (%) (Auto) 4.5, Eosinophils (%) (Auto) 0.5, Basophils (%) (Auto ) 1.2, Prothrombin Time 10.7, Prothromb Time International Ratio 1.0, Activated Partial Thromboplast Time 23, Sodium Level 142, Potassium Level 5.1, Chloride Level 106, Carbon Dioxide Level 23, Anion Gap 13, Blood Urea Nitrogen 67H, Creatinine 4.3H, Estimat Glomerular Filtration Rate 12.5, Glucose Level 214#H, Calcium Level 8.8, Total Bilirubin 0.3, Aspartate Amino Transf (AST/SGOT) 19, Alanine Aminotransferase (ALT/SGPT) 17, Alkaline Phosphatase 128H, Troponin I 0.031, Total Protein 6.3L, Albumin 2.8L, Globulin 3.5, Albumin/Globulin Ratio 0.8L, Lipase 186 02/06/19 06:05: White Blood Count 9.1, Red Blood Count 2.22L, Hemoglobin 6.2#*L, Hematocrit 19.7 #L, Mean Corpuscular Volume 89, Mean Corpuscular Hemoglobin 27.9, Mean Corpuscular Hemoglobin Concent 31.5L, Red Cell Distribution Width 16.3H, Platelet Count 139#L, Mean Platelet Volume 11.0H, Neutrophils (%) (Auto) , Lymphocytes (%) (Auto) , Monocytes (%) (Auto) , Eosinophils (%) (Auto) , Basophils (%) (Auto) , Differential Total Cells Counted 100, Neutrophils % ( Manual) 90H, Lymphocytes % (Manual) 6L, Monocytes % (Manual) 1, Eosinophils % ( Manual) 3, Basophils % (Manual) 0, Band Neutrophils 0, Platelet Estimate Adequate, Platelet Morphology Normal, Anisocytosis 1+, Schistocytes 1+ Height (Feet): 5 Height (Inches): 6.00 Weight (Pounds): 159 General Appearance: alert EENT: normal ENT inspection Neck: supple Cardiovascular: normal rate Respiratory/Chest: decreased breath sounds Abdomen: normal bowel sounds, non tender, soft Extremities: non-tender Fabrizio Herrera MD Feb 06, 2019 12:30
--- NOTE | 2019-02-06 12:35 | Pre-Procedure Note/Attestation ---
Pre-Procedure Note/Attestation Complete Prior to Procedure Planned Procedure: not applicable Procedure Narrative: egd Indications for Procedure Pre-Operative Diagnosis: gib Attestation I attest that I discussed the nature of the procedure; its benefits; risks and complications; and alternatives (and the risks and benefits of such alternatives ), prior to the procedure, with the patient (or the patient's legal account executive sales representative). I attest that, if there was a reasonable possibility of needing a blood transfusion, the patient (or the patient's legal account executive sales representative) was given the [facility] standardized written summary, pursuant to the Abdirizak Joanna Blood Safety Act ([place] Health and Safety Code # 1645, as amended). I attest that I re-evaluated the patient just prior to the surgery and that there has been no change in the patient's H&P, except as documented below: Fabrizio Herrera MD Feb 06, 2019 12:35
[2019-02-06] MEDS ORDERED: NS 500ML IVPB ONE (12:48)
--- NOTE | 2019-02-06 13:46 | Endoscopy Procedure Note ---
Endoscopy Procedure Note General Indication for Procedure: gib Procedures Performed: EGD Operative Findings/Diagnosis: bleeding from the polypectomy site Specimen: none Pt Tolerated Procedure Well: Yes Estimated Blood Loss: none Anesthesia Anesthesiologist: gabriela Anesthesia: MAC Inserted Devices Implant(s) used?: No GI Core Measures 50 yrs or older w/o bx or poly: Not Applicable 10yrs. F/U not recommended: Not Applicable Fabrizio Herrera MD Feb 06, 2019 13:46
--- NOTE | 2019-02-06 14:25 | NUR ---
NURSE NOTES: Patient brought up to ICU via bed. Intubated in GI lab, ETT to vent 8.0/24cm at lip line, AC 12, TV 550, Fio2 30%, PEEP+5, Spo2 100%. Patient stable. See order history for new orders.
[2019-02-06] MEDS ORDERED: Midazolam 2mg/2ml Inj IVP PRN ×2 (14:30)
[2019-02-06] MEDS ORDERED: DiphenhydrAMINE 50mg/ml Inj IVP PRN (14:30)
[2019-02-06] MEDS ORDERED: Atropine Inj 1mg/10ml Syr IV PRN (14:30)
[2019-02-06] MEDS ORDERED: fentaNYL 100 mcg/2 mL IV PRN (14:30)
--- NOTE | 2019-02-06 15:13 | Diagnostic Imaging Report ---
Indication: Line placement. Intubation Comparison: None A single view chest radiograph was obtained. Findings: Endotracheal tube is about 3 to 4 cm above the denise in good position. NG tube is in good position. Heart size is stable. Lungs are essentially clear. IMPRESSION: Tubes and lines satisfactory
--- NOTE | 2019-02-06 15:14 | NUR ---
NURSE NOTES: Per Dr. Herrera, start 2 more PRBC infusion before x2 FFP infusion. CBC draw 2 hours after PRBC.
--- NOTE | 2019-02-06 15:50 | NUR ---
NURSE NOTES: CXR results show NG tube and ETT in correct place. Began low intermittent sxn and VSS. Changed gown, partial bed bath given and complete linens changed. lethargic but able to arouse. No signs of discomfort noted.
--- NOTE | 2019-02-06 16:28 | NUR ---
RESPIRATORY NOTE: received pt from GI lab from surgery, intubated with ETT size 8, placed 26cm at the lip. pt was then transferred to ICU and placed on ventilator with vent settings of AC 12 550 30% +5 per MD. xray was taken at bedside and was told to withdraw ETT 2cm and is now placed at 24cm at the lip; secured via anchor fast. no redness or skin breakdown prior to placed anchor fast on pt. no resp distress noted. vent alarms set accordingly and audible. vent is also plugged into the red outlet with ambu bag at bedside. will cont to monitor pt.
--- NOTE | 2019-02-06 17:02 | NUR ---
NURSE NOTES: Started third PRBC, tolerating infusion well. No signs of transfusion reaction.
--- NOTE | 2019-02-06 18:55 | NUR ---
RESPIRATORY NOTE: Received pt on AC 12, 550VT, 30, PEEP +5. Pt intubated w/ ETT 8.0 @ 24cm lipline, secured by anchorfast. Pt arousable. B/S chad. diminished, sxn minimal amounts of thick, glez secretions w/ occasional red specks/blood. Both hands on soft restraints to prevent pt from self-extubation. Vent plugged into red outlet, ambubag at bedside. Pt in no apparent distress at this time. Will continue to monitor pt.
--- NOTE | 2019-02-06 19:07 | NUR ---
NURSE NOTES: Started infusing FFP, no s/sx of acute distress noted. VSS first 15 minutes.
--- NOTE | 2019-02-06 19:35 | NUR ---
HAND-OFF: Report given to Selam HUBER using SBAR. FFP running and patient toleraing well. VSS.
--- NOTE | 2019-02-06 19:40 | NUR ---
NURSE NOTES: Received patient from JESUS PEÑA RN. Lethargic . ETT to vent 8.0/24cm at lip line, Mode on AC 12 TV 550 FIO2 30% PEEP 5 and sating 97-100% in no acute respiratory distress noted. ST with HR of 109 BP 105/62 Afebrile. NGT on left nares with low intermittent suction with small amount of old blood. no facial grimace or moaning noted. AV shunt on STEFANIE with positive bruit and thrill .on Protonix drip and running FFP as ordered.on bilateral soft wrist restraint to prevent pulling out ET tube and IV lines. no skin issue on wrist. will continue to monitor patient closely.
--- NOTE | 2019-02-06 19:42 | Anethesia Preoperative Eval ---
Anesthesia Pre-op PMH/ROS General Date of Evaluation: Feb 06, 2019 Time of Evaluation: 12:21 Anesthesiologist: gabriela ASA Score: ASA 4 Mallampati Score Class I : Soft palate, uvula, fauces, pillars visible Class II: Soft palate, uvula, fauces visible Class III: Soft palate, base of uvula visible Class IV: Only hard plate visible Mallampati Classification: Class II Surgeon: jenny Diagnosis: gi bleed Surgical Procedure: egd Anesthesia History: none Family History: no anesthesia problems Allergies: Coded Allergies: No Known Allergies (Unverified , 09/15/16) Medications: see eMAR Patient NPO?: Yes Past Medical History Cardiovascular: Reports: HTN, other - chf, pvd, Pulmonary: Reports: other - aspiration pneumonia, lung mass Gastrointestinal/Genitourinary: Reports: ESRD Neurologic/Psychiatric: Reports: dementia - alzheimer's dz, paralysis, seizure dz, Endocrine: Reports: DM Hematology/Immune: Reports: anemia, DVT, other - cellulitis, sepsis Musculoskeletal/Integumentary: Reports: other - right aka, femur fx Anesthesia Pre-op Phys. Exam Physician Exam Last Vital Signs Date Time Temp Pulse Resp B/P (MAP) Pulse Ox O2 Delivery O2 Flow Rate FiO2 02/06/19 19:00 114 16 107/63 (78) 100 02/06/19 18:52 30 02/06/19 16:00 98.6 02/06/19 16:00 Mechanical Ventilator Constitutional: NAD Neurologic: CN 2-12 intact Cardiovascular: other - tachycardia Respiratory: CTA Gastrointestinal: S/NT/ND Airway Exam Mallampati Score: Class II MO: limited Neck: flexible TMD: 2fb ROM: limited Teeth: missing Anesthesia Pre-op A/P Labs Hematology Test 02/05/19 22:45 02/06/19 06:05 White Blood Count 9.9 K/UL (4.8-10.8) # 9.1 K/UL (4.8-10.8) Red Blood Count 4.74 M/UL (4.20-5.40) 2.22 M/UL (4.20-5.40) L Hemoglobin 13.2 G/DL (12.0-16.0) 6.2 G/DL (12.0-16.0) Hematocrit 41.1 % (37.0-47.0) 19.7 % (37.0-47.0) #L Mean Corpuscular Volume 87 FL (80-99) 89 FL (80-99) Mean Corpuscular Hemoglobin 27.8 PG (27.0-31.0) 27.9 PG (27.0-31.0) Mean Corpuscular Hemoglobin Concent 32.1 G/DL (32.0-36.0) 31.5 G/DL (32.0-36.0) L Red Cell Distribution Width 15.7 % (11.6-14.8) H 16.3 % (11.6-14.8) H Platelet Count 311 K/UL (150-450) 139 K/UL (150-450) #L Mean Platelet Volume 10.1 FL (6.5-10.1) 11.0 FL (6.5-10.1) H Neutrophils (%) (Auto) 80.6 % (45.0-75.0) H % (45.0-75.0) Lymphocytes (%) (Auto) 13.1 % (20.0-45.0) L % (20.0-45.0) Monocytes (%) (Auto) 4.5 % (1.0-10.0) % (1.0-10.0) Eosinophils (%) (Auto) 0.5 % (0.0-3.0) % (0.0-3.0) Basophils (%) (Auto) 1.2 % (0.0-2.0) % (0.0-2.0) Differential Total Cells Counted 100 Neutrophils % (Manual) 90 % (45-75) H Lymphocytes % (Manual) 6 % (20-45) L Monocytes % (Manual) 1 % (1-10) Eosinophils % (Manual) 3 % (0-3) Basophils % (Manual) 0 % (0-2) Band Neutrophils 0 % (0-8) Platelet Estimate Adequate Platelet Morphology Normal Anisocytosis 1+ Schistocytes 1+ Coagulation Test 02/05/19 22:45 Prothrombin Time 10.7 SEC (9.30-11.50) Prothromb Time International Ratio 1.0 (0.9-1.1) Activated Partial Thromboplast Time 23 SEC (23-33) Chemistry Test 02/05/19 22:45 Sodium Level 142 MMOL/L (136-145) Potassium Level 5.1 MMOL/L (3.5-5.1) Chloride Level 106 MMOL/L (98-107) Carbon Dioxide Level 23 MMOL/L (21-32) Anion Gap 13 mmol/L (5-15) Blood Urea Nitrogen 67 mg/dL (7-18) H Creatinine 4.3 MG/DL (0.55-1.30) H Estimat Glomerular Filtration Rate 12.5 mL/min (>60) Glucose Level 214 MG/DL (74-106) #H Calcium Level 8.8 MG/DL (8.5-10.1) Total Bilirubin 0.3 MG/DL (0.2-1.0) Aspartate Amino Transf (AST/SGOT) 19 U/L (15-37) Alanine Aminotransferase (ALT/SGPT) 17 U/L (12-78) Alkaline Phosphatase 128 U/L (46-116) H Troponin I 0.031 ng/mL (0.000-0.056) Total Protein 6.3 G/DL (6.4-8.2) L Albumin 2.8 G/DL (3.4-5.0) L Globulin 3.5 g/dL Albumin/Globulin Ratio 0.8 (1.0-2.7) L Lipase 186 U/L (73-393) Risk Assessment & Plan Assessment: [email or web address] Plan: mac Status Change Before Surgery: No Pre-Antibiotics Drug: Tiffani Hollins MD Feb 06, 2019 19:42
--- NOTE | 2019-02-06 19:50 | Immediate Post-Op Evaluation ---
Immediate Post-Op Evalulation Immediate Post-Op Evalulation Procedure: egd, endoclip, epinephrine wash Date of Evaluation: Feb 06, 2019 Time of Evaluation: 14:07 IV Fluids: 1000ml 0.9ns Blood Products: none Estimated Blood Loss: 500ml Blood Pressure Systolic: 111 Blood Pressure Diastolic: 74 Pulse Rate: 123 Respiratory Rate: 14 O2 Sat by Pulse Oximetry: 100 Temperature (Fahrenheit): 97.6 Pain Score (1-10): 0 Nausea: No Vomiting: Yes Complications patient displayed massive gi bleed at the start of procedure, with dark red blood and clots. patient was intubated to protect her airway. procedure proceeded to stop gi bleed, then transferred to icu in stable condition. orders for ventilator parameters and sedation given along with post anesthesia orders. Patient Status: awake, reacts, patent, ventilated Hydration Status: adequate Drug: Tiffani Hollins MD Feb 06, 2019 19:50
--- NOTE | 2019-02-06 19:53 | 48 Hour Post Anesthesia Eval ---
Post Anesthesia Evaluation Procedure: egd, endoclip, epinephrine wash Date of Evaluation: Feb 06, 2019 Time of Evaluation: 19:52 Blood Pressure Systolic: 107 0: 63 Pulse Rate: 110 Respiratory Rate: 14 Temperature (Fahrenheit): 98.6 O2 Sat by Pulse Oximetry: 100 Airway: patent - 8.0 oett, vt550, ac14,peep 5, fio2 0.3 Nausea: No Vomiting: No Pain Intensity: 0 Hydration Status: adequate Cardiopulmonary Status: stable, guarded Mental Status/LOC: other - sedated secondary to oral endotracheal tube on ventilator Post-Anesthesia Complications: none Follow-up care needed: N/A Tiffani Medina MD Feb 06, 2019 19:53
[2019-02-06] MEDS ORDERED: Miralax 17gm pkt ORAL PRN (21:00)
--- NOTE | 2019-02-06 21:15 | Procedure Note ---
DATE OF PROCEDURE: 02/06/2019 SURGEON: Fabrizio Herrera M.D. PROCEDURE: Upper endoscopy with hemostasis. ANESTHESIA: Per Dr. Johnson. INSTRUMENT: Olympus adult flexible upper endoscope. INDICATION: Gastrointestinal bleeding. REASON FOR PROCEDURE: The procedure, risks, benefits, and possible consequences, including hemorrhage, aspiration, perforation and infection, and alternative treatments, were explained to the patient/legal guardian by Dr. Fabrizio Herrera and the patient/legal guardian understood and accepted these risks. BRIEF HISTORY: This is a 68-year-old female, who had an endoscopy yesterday by me. We found 4 polyps in the stomach. The largest one was about 1.2 cm in size and had a polypectomy done. The patient also had GAVE in the antrum of the stomach, which was cauterized using APC technique. The patient was discharged after the procedure [facility] to the [facility] and came back with massive gastrointestinal bleeding. Hemoglobin from 13 to 6. PROCEDURE IN DETAIL: After informed consent was obtained and the patient was adequately sedated, Olympus upper endoscope was advanced from the mouth into the second portion of the duodenum and retroflexion was performed in the stomach. As soon as actually we put the scope down into the esophagus first time, the patient had vomited massive amount of blood. We actually had to take the scope out, the patient had to be resuscitated, the patient had to be intubated and stabilized, and then we went back again with the camera the second time. Second time, the examination is limited. There was lots of blood clot sitting in her stomach especially in the fundus of the stomach. We were able to see one of this polypectomy site that I think most probably was the source of bleeding. There was a vessel sitting on it. There was a large vessel sitting about 7 mm to 8 mm vessel sitting on the base of the ulcer that we cauterized yesterday polypectomy site. At this time, we started our hemostasis procedure. First, we injected about 1:10,000 dilution of epinephrine around this area. Then, we used a size 16 hemoclips to clip it. Then, we also used epinephrine to wash the area. At the end, there was no active bleeding from this lesion. We could not examine the other due to the polypectomy yesterday because there was a lot of blood clots sitting in the stomach. At this time, we decided to stop the procedure. The scope was retrieved and procedure was terminated. SUMMARY OF FINDINGS: 1. A very difficult and limited study given the stomach was full of blood and blood clots. We had to stop the procedure after the scope was placed in the esophagus because the patient vomited a massive amount of blood and the patient had to be intubated. 2. Most probably bleeding from the polypectomy site status post epinephrine injection, hemoclip placement, and epinephrine washed. RECOMMENDATIONS: 1. The patient to be kept NPO. 2. The patient to be transferred to ICU. 3. Continue on Protonix. 4. Monitor hemoglobin and hematocrit every 4 hours. 5. Transfuse to keep hemoglobin above 7. 6. We will make further recommendation as we go along. I want to thank, Dr. Cerna, for this kind referral. Fabrizio Herrera M.D. DR: CORTNEY JOB#: [id number] CC: Lit Cerna M.D.; Fax#: [phone]
[2019-02-06 21:20] LABS: HEMATOCRIT 31.8 % (37.0-47.0); HEMOGLOBIN 10.7 G/DL (12.0-16.0); MEAN CORPUSCULAR VOLUME 88 FL (80-99); PLATELET COUNT 150 K/UL (150-450); WHITE BLOOD COUNT 21.1 K/UL (4.8-10.8)
--- NOTE | 2019-02-06 21:45 | NUR ---
NURSE NOTES: Started 2nd unit of FFP with vital sign stable will monitor for with any adverse transfusion reaction.
--- NOTE | 2019-02-06 22:50 | NUR ---
NURSE NOTES: Blood transfusion completed.no adverse transfusion reaction observed.vital sign stable.
[2019-02-07] VITALS (23 sets, daily range): BP systolic 103–140; BP diastolic 53–68
--- NOTE | 2019-02-07 02:00 | NUR ---
NURSE NOTES: Tolerating well with current vent settings. no n/v noted. vs stable. afebrile. ST on monitor with HR of 100-110. Anuric. Turned and repositioned.
--- NOTE | 2019-02-07 04:00 | NUR ---
NURSE NOTES: No acute distress noted. vss. afebrile. will continue to monitor.
[2019-02-07 05:01] LABS: HEMATOCRIT 28.8 % (37.0-47.0); HEMOGLOBIN 9.6 G/DL (12.0-16.0); MEAN CORPUSCULAR VOLUME 88 FL (80-99); PLATELET COUNT 141 K/UL (150-450); RED BLOOD COUNT 3.27 M/UL (4.20-5.40); RED CELL DISTRIBUTION WIDTH 14.5 % (11.6-14.8); WHITE BLOOD COUNT 16.9 K/UL (4.8-10.8)
[2019-02-07 05:21] LABS: AMYLASE 34 U/L (25-115)
[2019-02-07 05:27] LABS: ALANINE AMINOTRANSFERASE 128 U/L (12-78); ALBUMIN 2.3 G/DL (3.4-5.0); ALBUMIN/GLOBULIN RATIO 0.9 (1.0-2.7); ALKALINE PHOSPHATASE 80 U/L (46-116); ANION GAP 12 mmol/L (5-15); ASPARTATE AMINO TRANSFERASE 78 U/L (15-37); BILIRUBIN,TOTAL 0.3 MG/DL (0.2-1.0); BLOOD UREA NITROGEN 75 mg/dL (7-18); CALCIUM 7.7 MG/DL (8.5-10.1); CARBON DIOXIDE 21 MMOL/L (21-32); CHLORIDE 117 MMOL/L (98-107); CREATININE 4.6 MG/DL (0.55-1.30); INR 1.1 (0.9-1.1); PHOSPHORUS 3.6 MG/DL (2.5-4.9); POTASSIUM 4.1 MMOL/L (3.5-5.1); SODIUM 150 MMOL/L (136-145)
[2019-02-07] MEDS: D5NS 1,000 ML IV SCH ×2 (06:36→13:30)
--- NOTE | 2019-02-07 07:00 | NUR ---
Received Patient on Vent RR 12, VT 550, FIO2 30%, PEEP +5. Patient intubated with a 8.0 ETT at 24cm at the lip. Patient alert and awake lying comfortably in bed. Breath sounds reveal diminished clear throughout both lung redman. Alarms on and audible. Vent plugged into red outlet. Will continue to monitor patient throughout the day.
--- NOTE | 2019-02-07 07:12 | NUR ---
NURSE NOTES: Received pt from MAYO Doss. Pt is alert, nods for yes or no, follows commands but impulsive at times. Orally intubated, ETT to vent, 8.0/24cml at lip line, AC 12/TV 500/Fio2 30%/PEEP+5, Spo2 100%, RR 14. C/O of abdominal pain, FLACC 4/10. Will admin pain meds. VSS. NGT in right nare at 60cm, connected to low int. sxn.No active drainage noted. NPO. abd round, non distended. Anuric. ST on instrument worker, HR 113. RAC 20 and RW 20G running D5NS@100ml/hr. STEFANIE AV shunt with positive thrill and bruit. Sacral has hyperpigmentation but no open wounds. bilateral soft restraints applied for safety. Bed locked, alarmed and in lowest position. Will continue plan of care.
--- NOTE | 2019-02-07 07:30 | NUR ---
HAND-OFF: Report given to JESUS HUBER using SBAR. Pateint remains stable in condition..
--- NOTE | 2019-02-07 07:47 | NUR ---
NURSE NOTES: Patient had another massive dark loose BM, notified Dr. alvarado and received orders for STAT CBC. Venous duplex being done now. Patient denies any pain, VSS.
[2019-02-07] MEDS: Pantoprazole 80 MG in NS 250 ML IV SCH ×2 (08:56→18:05)
--- NOTE | 2019-02-07 09:09 | NUR ---
Weaning started at 908. Placed on PS +6 FIO2 30% PEEP +5. Patient doing well. Will continue to monitor.
--- NOTE | 2019-02-07 09:43 | NUR ---
Weaning stopped. Patient tolerated weaning well. Patient has possible procedure today, so weaning put on hold. MAYO Treviño is aware.
[2019-02-07 09:44] LABS: HEMATOCRIT 28.8 % (37.0-47.0); HEMOGLOBIN 9.5 G/DL (12.0-16.0); MEAN CORPUSCULAR VOLUME 89 FL (80-99); PLATELET COUNT 162 K/UL (150-450); RED BLOOD COUNT 3.25 M/UL (4.20-5.40); RED CELL DISTRIBUTION WIDTH 14.7 % (11.6-14.8); WHITE BLOOD COUNT 18.1 K/UL (4.8-10.8)
[2019-02-07] MEDS: Morphine Sulfate 2mg/ml Inj(IV/IM USE ONLY) IVP PRN ×3 (09:46→21:51)
--- NOTE | 2019-02-07 10:04 | Pulmonolgy Critical Care Note ---
Critical Care - Asmt/Plan Problems: (1) Hemorrhagic shock (2) Upper GI bleeding (3) ESRF (end stage renal failure) (4) Diabetes mellitus (5) S/P AKA (above knee amputation) unilateral Respiratory: monitor respiratory rate, adjust FIO2, CXR Cardiac: continue to monitor HR/BP Renal: F/U I&O, keep IV fluid Gastrointestinal: hold feedings Endocrine: monitor blood sugar Hematologic: monitor H/H, transfuse if hgb<8.5 Neurologic: PRN Ativan, PRN Morphine, keep patient comfortable Affect: PRN ativan Prophylaxis: Protonix, SCDs Time Spent (Minutes): 40 Notes Reviewed: cardio, 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, consultants, 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 - Objective Last 24 Hour Vital Signs Date Time Temp Pulse Resp B/P (MAP) Pulse Ox O2 Delivery O2 Flow Rate FiO2 02/07/19 09:42 100 02/07/19 09:09 104 19 30 02/07/19 08:00 Mechanical Ventilator 02/07/19 08:00 30 02/07/19 07:12 110 18 30 02/07/19 07:00 107 17 109/57 (74) 100 02/07/19 06:00 106 15 109/57 (74) 100 02/07/19 05:00 103 13 113/57 (75) 100 02/07/19 04:00 98.9 106 13 107/59 (75) 100 02/07/19 04:00 Mechanical Ventilator 02/07/19 04:00 104 02/07/19 04:00 30 02/07/19 03:00 108 18 108/54 (72) 100 02/07/19 02:00 107 14 110/55 (73) 100 02/07/19 01:00 101 15 103/61 (75) 100 02/07/19 00:00 113 02/07/19 00:00 Mechanical Ventilator 02/07/19 00:00 99.0 109 16 105/62 (76) 100 02/07/19 00:00 30 02/06/19 23:00 110 13 89/61 (70) 100 02/06/19 22:00 111 13 136/71 (92) 100 02/06/19 21:15 110 13 30 02/06/19 21:00 110 13 89/61 (70) 100 02/06/19 20:02 110 14 100 02/06/19 20:00 35 02/06/19 20:00 113 02/06/19 20:00 Mechanical Ventilator 02/06/19 20:00 98.9 111 16 136/71 (92) 100 02/06/19 19:50 123 14 100 02/06/19 19:00 114 16 107/63 (78) 100 02/06/19 18:52 112 14 30 02/06/19 18:00 108 16 102/67 (79) 100 02/06/19 17:35 111 12 30 02/06/19 17:00 112 13 108/61 (77) 100 02/06/19 16:00 98.6 111 13 108/61 (77) 100 02/06/19 16:00 112 02/06/19 16:00 Mechanical Ventilator 02/06/19 16:00 35 02/06/19 15:37 114 15 30 02/06/19 15:00 113 13 82/45 (57) 100 02/06/19 14:04 107 16 30 02/06/19 14:00 125 17 95/55 (68) 100 02/06/19 12:00 Room Air 02/06/19 12:00 97.6 110 20 141/69 (93) 100 02/06/19 12:00 110 02/06/19 11:00 107 20 94/60 (71) 100 02/06/19 10:30 108/61 02/06/19 10:30 107 22 90/58 (69) 100 Status: awake Condition: critical HEENT: atraumatic Lungs: clear Heart: HR/BP stable, regular Abdomen: non-tender, feeding tube Extremities: no C/C/E Decubiti: location Micro: Microbiology Date/Time Source Procedure Growth Status 02/06/19 03:00 Rectum Received 02/05/19 22:55 Arm Right Blood Culture - Preliminary NO GROWTH AFTER 24 HOURS Resulted 02/05/19 22:45 Arm Right Blood Culture - Preliminary NO GROWTH AFTER 24 HOURS Resulted Critical Care - Subjective ROS Limited/Unobtainable: Yes Intubation Day: 2 Interval Events: still dark blood from rectum Condition: critical FI02: 30 Vent Support Breath Rate: 12 Vent Support Mode: CPAP Vent Tidal Volume: 550 Sputum Amount: Scant PEEP: 5.0 PIP: 14 I&O: Intake and Output 02/06/19 02/07/19 19:00 07:00 Intake Total 0 ml 1289 ml Output Total 60 ml Balance 0 ml 1229 ml Intake Oral 0 ml IV Total 1289 ml Gastric Drainage Total 60 ml # Bowel Movements 6 CXR: no change ET-Tube: 8.0 ET Position: 24 Labs: Laboratory Tests Test 02/06/19 21:05 02/07/19 03:50 02/07/19 08:50 White Blood Count 21.1 K/UL (4.8-10.8) #H 16.9 K/UL (4.8-10.8) H Pending Red Blood Count 3.60 M/UL (4.20-5.40) L 3.27 M/UL (4.20-5.40) L Pending Hemoglobin 10.7 G/DL (12.0-16.0) #L 9.6 G/DL (12.0-16.0) L Pending Hematocrit 31.8 % (37.0-47.0) #L 28.8 % (37.0-47.0) L Pending Mean Corpuscular Volume 88 FL (80-99) 88 FL (80-99) Pending Mean Corpuscular Hemoglobin 29.6 PG (27.0-31.0) 29.3 PG (27.0-31.0) Pending Mean Corpuscular Hemoglobin Concent 33.5 G/DL (32.0-36.0) 33.3 G/DL (32.0-36.0) Pending Red Cell Distribution Width 14.0 % (11.6-14.8) 14.5 % (11.6-14.8) Pending Platelet Count 150 K/UL (150-450) 141 K/UL (150-450) L Pending Mean Platelet Volume 12.2 FL (6.5-10.1) H 10.3 FL (6.5-10.1) H Pending Neutrophils (%) (Auto) % (45.0-75.0) % (45.0-75.0) Pending Lymphocytes (%) (Auto) % (20.0-45.0) % (20.0-45.0) Pending Monocytes (%) (Auto) % (1.0-10.0) % (1.0-10.0) Pending Eosinophils (%) (Auto) % (0.0-3.0) % (0.0-3.0) Pending Basophils (%) (Auto) % (0.0-2.0) % (0.0-2.0) Pending Differential Total Cells Counted 100 Neutrophils % (Manual) 86 % (45-75) H Pending Lymphocytes % (Manual) 9 % (20-45) L Pending Monocytes % (Manual) 5 % (1-10) Eosinophils % (Manual) 0 % (0-3) Basophils % (Manual) 0 % (0-2) Band Neutrophils 0 % (0-8) Platelet Estimate Decreased L Pending Platelet Morphology Normal Pending Red Blood Cell Morphology Normal Prothrombin Time 11.1 SEC (9.30-11.50) Prothromb Time International Ratio 1.1 (0.9-1.1) Activated Partial Thromboplast Time 27 SEC (23-33) Sodium Level 150 MMOL/L (136-145) H Potassium Level 4.1 MMOL/L (3.5-5.1) Chloride Level 117 MMOL/L (98-107) H Carbon Dioxide Level 21 MMOL/L (21-32) Anion Gap 12 mmol/L (5-15) Blood Urea Nitrogen 75 mg/dL (7-18) H Creatinine 4.6 MG/DL (0.55-1.30) H Estimat Glomerular Filtration Rate 11.5 mL/min (>60) Glucose Level 229 MG/DL (74-106) H Calcium Level 7.7 MG/DL (8.5-10.1) L Phosphorus Level 3.6 MG/DL (2.5-4.9) Magnesium Level 1.7 MG/DL (1.8-2.4) L Total Bilirubin 0.3 MG/DL (0.2-1.0) Aspartate Amino Transf (AST/SGOT) 78 U/L (15-37) H Alanine Aminotransferase (ALT/SGPT) 128 U/L (12-78) H Alkaline Phosphatase 80 U/L (46-116) Total Protein 5.0 G/DL (6.4-8.2) L Albumin 2.3 G/DL (3.4-5.0) L Globulin 2.7 g/dL Albumin/Globulin Ratio 0.9 (1.0-2.7) L Amylase Level 34 U/L (25-115) Lipase 68 U/L (73-393) L Lit Cerna MD Feb 07, 2019 10:04
--- NOTE | 2019-02-07 10:18 | NUR ---
NURSE NOTES: Morphine 2mg IVP given for abdominal pain 06/28. Notified Dr. Herrera of H/H, no new orders yet.
[2019-02-07] MEDS: DOPamine 400mg/250ml 250 ML IV SCH (10:30)
--- NOTE | 2019-02-07 10:30 | NUR ---
NURSE NOTES: Notified Dr. Cerna of blood culture results = gram positive cocci in clusters x2 bottles, no new orders given.
--- NOTE | 2019-02-07 11:09 | NUR ---
NURSE NOTES: Inserted raphael catheter per Dr. mendez for retention. Urine output seen. 200cc clear yellow urine out.
--- NOTE | 2019-02-07 11:52 | NUR ---
Patient on PS +6, PEEP +5, FIO2 30%. Will continue to monitor.
--- NOTE | 2019-02-07 11:52 | NUR ---
Weaning started again per DR. Herrera. Kamila HUBER aware. Patient did not pass weaning trail because her NIF was -10, however continuing with SBT per Dr. Herrera.
--- NOTE | 2019-02-07 12:50 | General Progress Note ---
Assessment/Plan Problem List: (1) Upper GI bleeding ICD Codes: K92.2 - Gastrointestinal hemorrhage, unspecified SNOMED: 98445513 (2) Anemia ICD Codes: D64.9 - Anemia, unspecified SNOMED: 434518272 (3) Diabetes mellitus ICD Codes: E11.9 - Type 2 diabetes mellitus without complications SNOMED: 14916032 Assessment/Plan s/p EGD and hemostasis yesterday stable H&H now ok to extubate GI stand point cont protonix drip monitor H&H Subjective ROS Limited/Unobtainable: No Allergies: Coded Allergies: No Known Allergies (Unverified , 09/15/16) Objective Last 24 Hour Vital Signs Date Time Temp Pulse Resp B/P (MAP) Pulse Ox O2 Delivery O2 Flow Rate FiO2 02/07/19 12:00 107 02/07/19 12:00 30 02/07/19 12:00 Mechanical Ventilator 02/07/19 12:00 107 17 140/60 (86) 100 02/07/19 11:50 108 13 30 02/07/19 10:30 135/61 02/07/19 10:16 100.3 02/07/19 10:00 104 17 135/61 (85) 100 02/07/19 09:42 100 02/07/19 09:09 104 19 30 02/07/19 09:00 105 17 115/65 (82) 100 02/07/19 08:00 100.3 107 17 116/65 (82) 100 02/07/19 08:00 108 02/07/19 08:00 Mechanical Ventilator 02/07/19 08:00 30 02/07/19 07:12 110 18 30 02/07/19 07:00 107 17 109/57 (74) 100 02/07/19 06:00 106 15 109/57 (74) 100 02/07/19 05:00 103 13 113/57 (75) 100 02/07/19 04:00 98.9 106 13 107/59 (75) 100 02/07/19 04:00 Mechanical Ventilator 02/07/19 04:00 104 02/07/19 04:00 30 02/07/19 03:00 108 18 108/54 (72) 100 02/07/19 02:00 107 14 110/55 (73) 100 02/07/19 01:00 101 15 103/61 (75) 100 02/07/19 00:00 113 02/07/19 00:00 Mechanical Ventilator 02/07/19 00:00 99.0 109 16 105/62 (76) 100 02/07/19 00:00 30 02/06/19 23:00 110 13 89/61 (70) 100 02/06/19 22:00 111 13 136/71 (92) 100 02/06/19 21:15 110 13 30 02/06/19 21:00 110 13 89/61 (70) 100 02/06/19 20:02 110 14 100 02/06/19 20:00 35 02/06/19 20:00 113 02/06/19 20:00 Mechanical Ventilator 02/06/19 20:00 98.9 111 16 136/71 (92) 100 02/06/19 19:50 123 14 100 02/06/19 19:00 114 16 107/63 (78) 100 02/06/19 18:52 112 14 30 02/06/19 18:00 108 16 102/67 (79) 100 02/06/19 17:35 111 12 30 02/06/19 17:00 112 13 108/61 (77) 100 02/06/19 16:00 98.6 111 13 108/61 (77) 100 02/06/19 16:00 112 02/06/19 16:00 Mechanical Ventilator 02/06/19 16:00 35 02/06/19 15:37 114 15 30 02/06/19 15:00 113 13 82/45 (57) 100 02/06/19 14:04 107 16 30 02/06/19 14:00 125 17 95/55 (68) 100 Intake and Output 02/06/19 02/07/19 19:00 07:00 Intake Total 0 ml 1289 ml Output Total 60 ml Balance 0 ml 1229 ml Intake Oral 0 ml IV Total 1289 ml Gastric Drainage Total 60 ml # Bowel Movements 6 Laboratory Tests 02/06/19 21:05: White Blood Count 21.1#H, Red Blood Count 3.60L, Hemoglobin 10.7#L, Hematocrit 31.8#L, Mean Corpuscular Volume 88, Mean Corpuscular Hemoglobin 29.6, Mean Corpuscular Hemoglobin Concent 33.5, Red Cell Distribution Width 14.0, Platelet Count 150, Mean Platelet Volume 12.2H, Neutrophils (%) (Auto) , Lymphocytes (%) (Auto) , Monocytes (%) (Auto) , Eosinophils (%) (Auto) , Basophils (%) (Auto) , Differential Total Cells Counted 100, Neutrophils % (Manual) 86H, Lymphocytes % (Manual) 9L, Monocytes % (Manual) 5, Eosinophils % (Manual) 0, Basophils % ( Manual) 0, Band Neutrophils 0, Platelet Estimate DecreasedL, Platelet Morphology Normal, Red Blood Cell Morphology Normal 02/07/19 03:50: White Blood Count 16.9H, Red Blood Count 3.27L, Hemoglobin 9.6L, Hematocrit 28.8L, Mean Corpuscular Volume 88, Mean Corpuscular Hemoglobin 29.3, Mean Corpuscular Hemoglobin Concent 33.3, Red Cell Distribution Width 14.5, Platelet Count 141L, Mean Platelet Volume 10.3H, Neutrophils (%) (Auto) , Lymphocytes (% ) (Auto) , Monocytes (%) (Auto) , Eosinophils (%) (Auto) , Basophils (%) (Auto) , Differential Total Cells Counted 100, Neutrophils % (Manual) 86H, Lymphocytes % (Manual) 8L, Monocytes % (Manual) 6, Eosinophils % (Manual) 0, Basophils % ( Manual) 0, Band Neutrophils 0, Platelet Estimate DecreasedL, Platelet Morphology Normal, Hypochromasia 2+, Anisocytosis 1+, Prothrombin Time 11.1, Prothromb Time International Ratio 1.1, Activated Partial Thromboplast Time 27, Sodium Level 150H, Potassium Level 4.1, Chloride Level 117H, Carbon Dioxide Level 21, Anion Gap 12, Blood Urea Nitrogen 75H, Creatinine 4.6H, Estimat Glomerular Filtration Rate 11.5, Glucose Level 229H, Calcium Level 7.7L, Phosphorus Level 3.6, Magnesium Level 1.7L, Total Bilirubin 0.3, Aspartate Amino Transf (AST/SGOT) 78H, Alanine Aminotransferase (ALT/SGPT) 128H, Alkaline Phosphatase 80, Total Protein 5.0L, Albumin 2.3L, Globulin 2.7, Albumin/ Globulin Ratio 0.9L, Amylase Level 34, Lipase 68L 02/07/19 08:50: White Blood Count 18.1H, Red Blood Count 3.25L, Hemoglobin 9.5L, Hematocrit 28.8L, Mean Corpuscular Volume 89, Mean Corpuscular Hemoglobin 29.2, Mean Corpuscular Hemoglobin Concent 32.9, Red Cell Distribution Width 14.7, Platelet Count 162, Mean Platelet Volume 13.0H, Neutrophils (%) (Auto) , Lymphocytes (%) (Auto) , Monocytes (%) (Auto) , Eosinophils (%) (Auto) , Basophils (%) (Auto) , Differential Total Cells Counted 100, Neutrophils % (Manual) 89H, Lymphocytes % (Manual) 7L, Monocytes % (Manual) 4, Eosinophils % (Manual) 0, Basophils % ( Manual) 0, Band Neutrophils 0, Platelet Estimate Adequate, Platelet Morphology Normal, Hypochromasia 2+, Anisocytosis 1+ Height (Feet): 5 Height (Inches): 6.00 Weight (Pounds): 165 General Appearance: alert EENT: normal ENT inspection Neck: supple Cardiovascular: normal rate Respiratory/Chest: decreased breath sounds Abdomen: normal bowel sounds, non tender, soft Extremities: non-tender Fabrizio Herrera MD Feb 07, 2019 12:50
--- NOTE | 2019-02-07 12:56 | Consultation ---
Consult Note Consult Note asked to eval for dialysis managenment patient discharged on February 05 and returned with massive GI bleed , Anemia and Hypotension Here in ICU intubated and being transfused and monitored She is a 68-year-old female presented after increased hematemesis. [facility]. 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 Patient was started on patient was noted to be dialyzed one day prior to arrival. She had been noted to have a count of red bloody emesis. She was noted to be on dialysis Sunday and Sunday. No Known Allergies (Unverified , 09/15/16) Hx Diabetes: Yes Hx Gastrointestinal Problems: Yes - hyperlipidemia, GERD Hx Cerebrovascular Accident: Yes Hx Dementia: Yes Hx Alzheimer's Disease: Yes Hx Paralysis: Yes Hx Dysphasia: Yes Hx Weakness: Yes seen in ICu examined discussed with RN data reviewed Assessment/Plan admitted with massive GI bleed and hypotension ESRD : M W Fr h/o UTI now , on vent, respitatory failure Other medical conditions; Type 2 diabetes. Hypertension. h/o Anemia of chronic renal disease Hypercholesterolemia. Peripheral vascular disease. Alzheimer's dementia. ?? LUNG Pathology PAST SURGICAL HISTORY: 1. Right [id number] amputation. 2. Open reduction internal fixation Plan: vent / Resp support monitor H&h On protonix drip monitor lytes and renal parameters HD as needed Marques Motta MD Feb 07, 2019 12:56
[2019-02-07 13:00] LABS: HEMATOCRIT 28.6 % (37.0-47.0); HEMOGLOBIN 9.4 G/DL (12.0-16.0); MEAN CORPUSCULAR VOLUME 88 FL (80-99); PLATELET COUNT 148 K/UL (150-450); RED BLOOD COUNT 3.25 M/UL (4.20-5.40); RED CELL DISTRIBUTION WIDTH 14.5 % (11.6-14.8); WHITE BLOOD COUNT 18.1 K/UL (4.8-10.8)
--- NOTE | 2019-02-07 13:30 | NUR ---
Extubated Patient per Dr. Franco orders. Placed patient on Venti mask 3LPM 28%FIO2. No ABGs drawn per Dr. Cerna. Patient tolerating well. Will continue to monitor.
--- NOTE | 2019-02-07 13:33 | NUR ---
NURSE NOTES: ETT extubated per Dr. Herrera and Dr. Cerna. Tolerated well, placed pt on Venturi mask 28%, 3L. SPo2 100%, RR 17. No stridor, productive cough noted, high huertas's position.
--- NOTE | 2019-02-07 14:45 | NUR ---
RD ASSESSMENT & RECOMMENDATIONS SEE CARE ACTIVITY FOR COMPLETE ASSESSMENT DAILY ESTIMATED NEEDS: Needs based on ESRD W/ HD/ 65.8kg 28-30 kcals/kg [id number] total kcals 1.25-1.8 g protein/kg 82-118 g total protein Fluid per MD, on HD mL/kg . total fluid mLs NUTRITION DIAGNOSIS: (1) Increased kcal/pro needs R/T renal dysfunction as evidenced by pt w/ ESRD dx, on HD, s/p extubation, NPO at this time. CURRENT DIET:NPO PO DIET RECOMMENDATIONS: When medically appropriate -> RENAL, CCHO MED/ texture per [employer] ADDITIONAL RECOMMENDATIONS: * Obtain dry weight (after dialysis) on CALIBRATED bedscale * [employer] eval for appropriate texture, h/o CVA w/ dysphagia * Rec accucheck w/ SSI - h/o DM, BGs in the 200's .
--- NOTE | 2019-02-07 15:11 | NUR ---
Social Work This Sw met with patient, currently in the ICU. Patient responding to this SW with head nods, appears to have some confusion (due to history of dementia/Alzheimer). Patient is from [facility] ([phone]) and has a POLST on chart requesting full code, full treatment. Patient daughter, Christiana ([phone]) is the primary decision maker for patient. This Sw spoke with daughter who confirm patient to remain full code, full treatment, as well as informed this SW that she is in the process of obtaining conservatorship, will bring in the paperwork when receiving them from the [facility].
--- NOTE | 2019-02-07 15:32 | NUR ---
NURSE NOTES: US Paracentesis complete, 6.5L out, specimen collected and sent to lab. Dr Alejandro bernal, notified of output. See order history for new orders. Addendum: 02/07/19 at 1834 by JESUS PEÑA RN wrong patient
[2019-02-07 17:04] LABS: HEMATOCRIT 26.9 % (37.0-47.0); HEMOGLOBIN 9.2 G/DL (12.0-16.0); MEAN CORPUSCULAR VOLUME 87 FL (80-99); PLATELET COUNT 134 K/UL (150-450); RED BLOOD COUNT 3.08 M/UL (4.20-5.40); RED CELL DISTRIBUTION WIDTH 14.2 % (11.6-14.8); WHITE BLOOD COUNT 20.2 K/UL (4.8-10.8)
--- NOTE | 2019-02-07 17:27 | NUR ---
NURSE NOTES: Rectal bleeding has stopped for 6 hours. Turned and repositioned. New IVF bag hung. IV noted leaking on RAC, removed, no s/sx of infiltrations or redness.
--- NOTE | 2019-02-07 19:03 | NUR ---
HAND-OFF: Report given to MAYO Rubio.
--- NOTE | 2019-02-07 19:03 | NUR ---
NURSE NOTES: Received orders for Zosyn 2.25gm q8hr per Dr. Cerna
--- NOTE | 2019-02-07 19:50 | NUR ---
NURSE NOTES: PATIENT ALERT, COMMUNICATED BY MOUTH SPEECH, RESPIRATION REGULAR, DENIED SOB OR DISCOMFORT, ABDOMEN SOFT, DISTENDED, NO N/V, NGT TO RIGHT NARES, NPO STATUS, LOWER INTERMITTENT SUCTION, DARK GREENISH WITH TINCT BLOODY COLOR OUTED, HYPOACTIVE BOWEL SOUND, NO BOWEL MOVEMENT STATUS, F/C INTACT AND PATENT, YELLOW URINE OUTED GRAVITY, AV FISTULA TO LEFT UPPER ARM, PALPABLE THRILL AND BRUITS, KEPT LEFT ARM PRECAUTION, RIGHT AKA STATUS, ON SCD TO LEFT LOWER LEG, PERIPHERAL LINE TO RIGHT FOREARM 20G INTACT AND PATENT, ONGOING PROTONIX AT 25ML/HR AND D5W NS AT 50ML/HR VIA PERIPHERAL LINE, PROVIDED CALL LIGHT WITHIN REACH, MADE LOWER BED POSITION, WILL CONTINUE TO MONITOR.
[2019-02-07] MEDS: Piperacillin/Tazobactam 2.25 GM in D5W 55 ML IVPB SCH (20:12)
[2019-02-07 21:42] LABS: HEMATOCRIT 27.2 % (37.0-47.0); HEMOGLOBIN 9.1 G/DL (12.0-16.0); MEAN CORPUSCULAR VOLUME 89 FL (80-99); PLATELET COUNT 169 K/UL (150-450); RED BLOOD COUNT 3.07 M/UL (4.20-5.40); RED CELL DISTRIBUTION WIDTH 14.9 % (11.6-14.8); WHITE BLOOD COUNT 19.3 K/UL (4.8-10.8)
--- NOTE | 2019-02-07 21:51 | NUR ---
NURSE NOTES: GIVEN MORPHINE 2MG BY IVP SLOWLY PRN FOR SEVERE PAIN, WILL CONTINUE TO MONITOR.
--- NOTE | 2019-02-07 23:35 | NUR ---
NURSE NOTES: NO PAIN NOTED, ASLEEP STATUS AT THIS TIME.
[2019-02-08] VITALS (24 sets, daily range): BP systolic 90–131; BP diastolic 50–92
--- NOTE | 2019-02-08 00:04 | Cardiology Report ---
APPROVED REPORT EKG Measurement Heart [id number] VT P6 [id number] Sinus tachycardia Nonspecific ST and T wave abnormality Biatrial enlargement Abnormal ECG
--- NOTE | 2019-02-08 01:50 | NUR ---
NURSE NOTES: PATIENT AWOKE, DENIED PAIN OR DISTRESS NOTED, WILL CONTINUE PLAN OF CARE.
--- NOTE | 2019-02-08 03:30 | NUR ---
NURSE NOTES: MORNING CARE AND ORAL CARE WAS DONE, PASTE AND LIQUID DARK BLOODY BLACK COLOR STOOL OUTED, WILL CONTINUE TO MONITOR.
[2019-02-08] MEDS: Pantoprazole 80 MG in NS 250 ML IV SCH ×3 (04:32→15:28)
--- NOTE | 2019-02-08 05:30 | NUR ---
NURSE NOTES: PATIENT AWOKE, DENIED PAIN OR SOB AT THIS TIME.
[2019-02-08 05:39] LABS: HEMATOCRIT 28.8 % (37.0-47.0); HEMOGLOBIN 9.4 G/DL (12.0-16.0); MEAN CORPUSCULAR VOLUME 89 FL (80-99); PLATELET COUNT 166 K/UL (150-450); RED BLOOD COUNT 3.23 M/UL (4.20-5.40); RED CELL DISTRIBUTION WIDTH 15.2 % (11.6-14.8); WHITE BLOOD COUNT 19.9 K/UL (4.8-10.8)
[2019-02-08 05:40] LABS: ALANINE AMINOTRANSFERASE 88 U/L (12-78); ALBUMIN 2.4 G/DL (3.4-5.0); ALBUMIN/GLOBULIN RATIO 0.8 (1.0-2.7); ALKALINE PHOSPHATASE 90 U/L (46-116); ANION GAP 15 mmol/L (5-15); ASPARTATE AMINO TRANSFERASE 43 U/L (15-37); BILIRUBIN,TOTAL 0.4 MG/DL (0.2-1.0); BLOOD UREA NITROGEN 92 mg/dL (7-18); CARBON DIOXIDE 18 MMOL/L (21-32); CHLORIDE 121 MMOL/L (98-107); CREATININE 4.5 MG/DL (0.55-1.30); POTASSIUM 4.2 MMOL/L (3.5-5.1); SODIUM 154 MMOL/L (136-145)
[2019-02-08] MEDS: Piperacillin/Tazobactam 2.25 GM in D5W 55 ML IVPB SCH ×3 (06:03→21:34)
--- NOTE | 2019-02-08 06:41 | NUR ---
NURSE NOTES: CALLED DR. JACOBSON REGARDING CRITICAL TROPONIN I RESULT 2.710 THAT LEFT MESSAGE.
--- NOTE | 2019-02-08 07:24 | NUR ---
HAND-OFF: Report given to MAYO YANG.
--- NOTE | 2019-02-08 09:00 | NUR ---
AWAKE/DISORIENTED TO PLACE/TIMES REARITY ORIENTED V/S CONDITION STABLE
--- NOTE | 2019-02-08 09:17 | Pulmonolgy Critical Care Note ---
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, 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, 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5 114 19 116/60 (78) 96 02/08/19 00:00 Room Air Room Air 02/07/19 23:00 112 18 122/62 (82) 100 02/07/19 22:00 113 18 114/53 (73) 95 02/07/19 21:00 116 14 126/68 (87) 97 02/07/19 20:42 Room Air 02/07/19 20:42 98 Room Air 21 02/07/19 20:00 118 02/07/19 20:00 Room Air Room Air 02/07/19 20:00 98.7 118 24 117/62 (80) 98 02/07/19 19:00 118 15 117/58 (77) 97 02/07/19 18:00 116 17 120/61 (80) 100 02/07/19 17:00 115 17 122/66 (84) 100 02/07/19 16:00 104 02/07/19 16:00 98.9 111 17 122/64 (83) 100 02/07/19 16:00 Mechanical Ventilator 2.0 Nasal Cannula 02/07/19 15:00 111 17 129/62 (84) 100 02/07/19 14:02 99.2 02/07/19 14:00 122 17 122/63 (82) 100 02/07/19 13:44 100 Venturi Mask 3.0 28 02/07/19 13:44 115 22 Venturi Mask 3.0 28 02/07/19 13:44 Venturi Mask 3.0 28 02/07/19 13:41 Venturi Mask 3.0 28 02/07/19 13:00 99.3 110 17 139/65 (89) 100 02/07/19 12:00 107 02/07/19 12:00 30 02/07/19 12:00 Mechanical Ventilator 02/07/19 12:00 107 17 140/60 (86) 100 02/07/19 11:50 108 13 30 02/07/19 10:30 135/61 02/07/19 10:00 104 17 135/61 (85) 100 02/07/19 09:42 100 Status: somnolent Condition: critical HEENT: atraumatic Lungs: rales Heart: HR/BP stable Abdomen: soft, non-tender Extremities: no C/C/E, edema Micro: Microbiology Date/Time Source Procedure Growth Status 02/06/19 03:00 Rectum - Final NO CARBAPENEM-RESISTANT ENTEROBACTERI... Complete 02/06/19 03:00 Rectum VRE Culture - Final Enterococcus Faecium - Vre Complete 02/05/19 22:55 Arm Right Blood Culture - Preliminary Staphylococcus Sp Coag Neg Resulted 02/05/19 22:45 Arm Right Blood Culture - Preliminary Staphylococcus Sp Coag Neg Resulted Critical Care - Subjective ROS Limited/Unobtainable: Yes Interval Events: extubated yesterday, in agonal breathing now FI02: 21 Vent Support Breath Rate: 12 Vent Support Mode: AC Vent Tidal Volume: 550 Sputum Amount: Small PEEP: 5.0 PIP: 14 I&O: Intake and Output 02/07/19 02/08/19 19:00 07:00 Intake Total 1050 ml 1010 ml Output Total 1390 ml 525 ml Balance -340 ml 485 ml IV Total 1050 ml 1010 ml Output Urine Total 750 ml 515 ml Stool Total 400 ml Gastric Drainage Total 240 ml 10 ml # Bowel Movements 6 4 ET-Tube: 8.0 ET Position: 24 Labs: Laboratory Tests Test 02/07/19 12:45 02/07/19 16:48 02/07/19 21:10 02/08/19 04:20 White Blood Count 18.1 K/UL (4.8-10.8) H 20.2 K/UL (4.8-10.8) H 19.3 K/UL (4.8-10.8) H 19.9 K/UL (4.8-10.8) H Red Blood Count 3.25 M/UL (4.20-5.40) L 3.08 M/UL (4.20-5.40) L 3.07 M/UL (4.20-5.40) L 3.23 M/UL (4.20-5.40) L Hemoglobin 9.4 G/DL (12.0-16.0) L 9.2 G/DL (12.0-16.0) L 9.1 G/DL (12.0-16.0) L 9.4 G/DL (12.0-16.0) L Hematocrit 28.6 % (37.0-47.0) L 26.9 % (37.0-47.0) L 27.2 % (37.0-47.0) L 28.8 % (37.0-47.0) L Mean Corpuscular Volume 88 FL (80-99) 87 FL (80-99) 89 FL (80-99) 89 FL ( 80-99) Mean Corpuscular Hemoglobin 28.8 PG (27.0-31.0) 29.8 PG (27.0-31.0) 29.7 PG (27.0-31.0) 29.1 PG (27.0-31.0) Mean Corpuscular Hemoglobin Concent 32.8 G/DL (32.0-36.0) 34.2 G/DL (32.0-36.0) 33.6 G/DL (32.0-36.0) 32.7 G/DL (32.0-36.0) Red Cell Distribution Width 14.5 % (11.6-14.8) 14.2 % (11.6-14.8) 14.9 % (11.6-14.8) H 15.2 % (11.6-14.8) H Platelet Count 148 K/UL (150-450) L 134 K/UL (150-450) L 169 K/UL (150-450) 166 K/UL (150-450) Mean Platelet Volume 11.0 FL (6.5-10.1) H 9.5 FL (6.5-10.1) 14.6 FL (6.5-10.1) H 11.3 FL (6.5-10.1) H Neutrophils (%) (Auto) % (45.0-75.0) % (45.0-75.0) % (45.0-75.0) % (45.0-75.0) Lymphocytes (%) (Auto) % (20.0-45.0) % (20.0-45.0) % (20.0-45.0) % (20.0-45.0) Monocytes (%) (Auto) % (1.0-10.0) % (1.0-10.0) % (1.0-10.0) % (1.0- 10.0) Eosinophils (%) (Auto) % (0.0-3.0) % (0.0-3.0) % (0.0-3.0) % (0.0-3.0 ) Basophils (%) (Auto) % (0.0-2.0) % (0.0-2.0) % (0.0-2.0) % (0.0-2.0) Differential Total Cells Counted 100 Neutrophils % (Manual) 85 % (45-75) H Pending Lymphocytes % (Manual) 7 % (20-45) L Pending Monocytes % (Manual) 8 % (1-10) Eosinophils % (Manual) 0 % (0-3) Basophils % (Manual) 0 % (0-2) Band Neutrophils 0 % (0-8) Platelet Estimate Decreased L Pending Platelet Morphology Normal Pending Hypochromasia 2+ Anisocytosis 1+ Reticulocyte Count Pending Prothrombin Time 10.6 SEC (9.30-11.50) Prothromb Time International Ratio 1.0 (0.9-1.1) Activated Partial Thromboplast Time 25 SEC (23-33) Sodium Level 154 MMOL/L (136-145) H Potassium Level 4.2 MMOL/L (3.5-5.1) Chloride Level 121 MMOL/L (98-107) H Carbon Dioxide Level 18 MMOL/L (21-32) L Anion Gap 15 mmol/L (5-15) Blood Urea Nitrogen 92 mg/dL (7-18) H Creatinine 4.5 MG/DL (0.55-1.30) H Estimat Glomerular Filtration Rate 11.9 mL/min (>60) Glucose Level 170 MG/DL (74-106) H Uric Acid 5.8 MG/DL (2.6-7.2) Calcium Level 8.0 MG/DL (8.5-10.1) L Phosphorus Level 3.0 MG/DL (2.5-4.9) Magnesium Level 1.7 MG/DL (1.8-2.4) L Total Bilirubin 0.4 MG/DL (0.2-1.0) Aspartate Amino Transf (AST/SGOT) 43 U/L (15-37) H Alanine Aminotransferase (ALT/SGPT) 88 U/L (12-78) H Alkaline Phosphatase 90 U/L (46-116) Troponin I 2.710 ng/mL (0.000-0.056) Pro-B-Type Natriuretic Peptide 13418 pg/mL (0-125) H Total Protein 5.5 G/DL (6.4-8.2) L Albumin 2.4 G/DL (3.4-5.0) L Globulin 3.1 g/dL Albumin/Globulin Ratio 0.8 (1.0-2.7) L Lit Cerna MD Feb 08, 2019 09:17
[2019-02-08] MEDS: D5NS 1,000 ML IV SCH ×3 (09:30→15:45)
--- NOTE | 2019-02-08 09:31 | Diagnostic Imaging Report ---
EXAM: XR Chest, 1 View CLINICAL HISTORY: DYSPNEA TECHNIQUE: Frontal view of the chest. COMPARISON: Chest x-ray 02/06/19 1357 FINDINGS: Lungs: Interval diffuse bilateral airspace opacities, likely edema. Pleural space: Unremarkable. No pneumothorax. Heart: Mild cardiomegaly. Mediastinum: Unremarkable. Bones/joints: Unremarkable. Tubes, lines and devices: Interval removal of endotracheal tube. Nasogastric tube is stable. IMPRESSION: 1. Interval removal of endotracheal tube. 2. Interval diffuse bilateral airspace opacities, likely pulmonary edema.
--- NOTE | 2019-02-08 09:45 | NUR ---
RR.33 WITH HOB UP ENCOURAGED TAKE DEEP BREATH/ NOT FOLLOWS WELL PLASED ON BIPAP I/E 12/5 /50% FIO2 RR20,S
[2019-02-08] MEDS: DOPamine 400mg/250ml 250 ML IV SCH (10:30)
--- NOTE | 2019-02-08 12:30 | NUR ---
RR 23 VS/CONDITION STABLE CONT, ON BIPAP
--- NOTE | 2019-02-08 15:38 | NUR ---
DISCCUSED WITH RT/SANDRO PT, STABLE WILL CONT, BIPAP CHANGED @ HS/AND PRN DISTRESS
--- NOTE | 2019-02-08 16:26 | NUR ---
HAND-OFF: Report given to NOAH LEE
--- NOTE | 2019-02-08 16:30 | NUR ---
NURSE NOTES: Report received from Lefty HUBER. Patient VS stable at this time. Patient is alert at this time but confused. Patient does not speak at this time but nods for yes and no questions. Patient is on BIPAP 12/5 with 50% FiO2 at this time. Patient tolerating setting with oxygen saturation of 93%. Patient denies pain at this time. Patient NPO. Patient has NGT at this time set to low intermittent suction. Patient has black gastric juices coming out of NGT. Patient has raphael for urine retention at this time. Patient skin intact. Patient has right forearm 20G PIV that is running D5NS at 50mL/hr at this time. Patient has Protonix drip running at 25ml/hr and 8mg/hr. Patient bed in low position with bed alarm on and call light in reach at this time.
--- NOTE | 2019-02-08 17:14 | Nephrology Progress Note ---
Assessment/Plan Problem List: (1) Upper GI bleeding (2) Hemorrhagic shock (3) ESRF (end stage renal failure) (4) NSTEMI (non-ST elevated myocardial infarction) (5) Respiratory failure, acute (6) Lung mass Assessment admitted with massive GI bleed and hypotension ESRD : M W Fr h/o UTI now , on vent, respitatory failure Other medical conditions; Type 2 diabetes. Hypertension. h/o Anemia of chronic renal disease Hypercholesterolemia. Peripheral vascular disease. Alzheimer's dementia. ?? LUNG Pathology PAST SURGICAL HISTORY: 1. Right [id number] amputation. 2. Open reduction internal fixation Plan Plan: vent / Resp support monitor H&h On protonix drip monitor lytes and renal parameters HD as needed antibiotics for uti change IV to D5W start NTG Paste Subjective ROS Limited/Unobtainable: Yes Objective Objective Last 24 Hour Vital Signs Date Time Temp Pulse Resp B/P (MAP) Pulse Ox O2 Delivery O2 Flow Rate FiO2 02/08/19 17:00 131 28 117/68 (84) 93 02/08/19 16:00 128 02/08/19 16:00 Room Air Room Air 02/08/19 16:00 50.0 02/08/19 16:00 98.7 129 31 117/57 (77) 96 02/08/19 15:00 50 02/08/19 15:00 130 30 121/69 (86) 97 02/08/19 14:57 113 30 100 Facial 15.0 50 02/08/19 14:03 121 29 131/80 (97) 100 02/08/19 13:02 115 24 98 Facial 15.0 60 02/08/19 13:00 112 28 127/69 (88) 94 02/08/19 12:00 Room Air Room Air 02/08/19 12:00 115 02/08/19 12:00 97.6 115 26 122/92 (102) 98 02/08/19 11:50 112 27 100 Facial 15.0 60 02/08/19 11:00 112 28 125/69 (87) 98 02/08/19 10:30 127/70 02/08/19 10:00 114 24 112/61 (78) 100 02/08/19 09:30 60.0 02/08/19 09:15 119 27 100 Facial 15.0 60 02/08/19 09:15 99 Bi-pap 60 02/08/19 09:15 Bi-pap 02/08/19 09:00 122 23 118/58 (78) 96 02/08/19 08:00 98.3 112 22 125/68 (87) 93 02/08/19 08:00 Room Air Room Air 02/08/19 08:00 112 02/08/19 07:00 112 18 122/64 (83) 94 02/08/19 06:00 114 20 122/66 (84) 95 02/08/19 05:00 111 24 122/65 (84) 94 02/08/19 04:00 Room Air Room Air 02/08/19 04:00 98.8 111 20 116/63 (80) 100 02/08/19 03:39 114 02/08/19 03:00 114 20 115/61 (79) 100 02/08/19 02:00 112 19 111/62 (78) 95 02/08/19 01:00 113 18 116/60 (78) 95 02/08/19 00:00 114 02/08/19 00:00 98.5 114 19 116/60 (78) 96 02/08/19 00:00 Room Air Room Air 02/07/19 23:00 112 18 122/62 (82) 100 02/07/19 22:00 113 18 114/53 (73) 95 02/07/19 21:00 116 14 126/68 (87) 97 02/07/19 20:42 Room Air 02/07/19 20:42 98 Room Air 21 02/07/19 20:00 118 02/07/19 20:00 Room Air Room Air 02/07/19 20:00 98.7 118 24 117/62 (80) 98 02/07/19 19:00 118 15 117/58 (77) 97 02/07/19 18:00 116 17 120/61 (80) 100 Intake and Output 02/07/19 02/08/19 18:59 06:59 Intake Total 1050 ml 955 ml Output Total 1340 ml 575 ml Balance -290 ml 380 ml IV Total 1050 ml 955 ml Output Urine Total 670 ml 565 ml Stool Total 400 ml Gastric Drainage Total 270 ml 10 ml # Bowel Movements 6 4 Laboratory Tests 02/07/19 21:10: White Blood Count 19.3H, Red Blood Count 3.07L, Hemoglobin 9.1L, Hematocrit 27.2L, Mean Corpuscular Volume 89, Mean Corpuscular Hemoglobin 29.7, Mean Corpuscular Hemoglobin Concent 33.6, Red Cell Distribution Width 14.9H, Platelet Count 169, Mean Platelet Volume 14.6H, Neutrophils (%) (Auto) , Lymphocytes (%) (Auto) , Monocytes (%) (Auto) , Eosinophils (%) (Auto) , Basophils (%) (Auto) 02/08/19 04:20: White Blood Count 19.9H, Red Blood Count 3.23L, Hemoglobin 9.4L, Hematocrit 28.8L, Mean Corpuscular Volume 89, Mean Corpuscular Hemoglobin 29.1, Mean Corpuscular Hemoglobin Concent 32.7, Red Cell Distribution Width 15.2H, Platelet Count 166, Mean Platelet Volume 11.3H, Neutrophils (%) (Auto) , Lymphocytes (%) (Auto) , Monocytes (%) (Auto) , Eosinophils (%) (Auto) , Basophils (%) (Auto) , Differential Total Cells Counted 100, Neutrophils % ( Manual) 84H, Lymphocytes % (Manual) 9L, Monocytes % (Manual) 7, Eosinophils % ( Manual) 0, Basophils % (Manual) 0, Band Neutrophils 0, Platelet Estimate Adequate, Platelet Morphology Normal, Anisocytosis 1+, Reticulocyte Count 0.8, Prothrombin Time 10.6, Prothromb Time International Ratio 1.0, Activated Partial Thromboplast Time 25, Sodium Level 154H, Potassium Level 4.2, Chloride Level 121H, Carbon Dioxide Level 18L, Anion Gap 15, Blood Urea Nitrogen 92H, Creatinine 4.5H, Estimat Glomerular Filtration Rate 11.9, Glucose Level 170H, Uric Acid 5.8, Calcium Level 8.0L, Phosphorus Level 3.0, Magnesium Level 1.7L, Total Bilirubin 0.4, Aspartate Amino Transf (AST/SGOT) 43H, Alanine Aminotransferase (ALT/SGPT) 88H, Alkaline Phosphatase 90, Troponin I 2.710H, Pro -B-Type Natriuretic Peptide 90869D, Total Protein 5.5L, Albumin 2.4L, Globulin 3.1, Albumin/Globulin Ratio 0.8L Height (Feet): 5 Height (Inches): 6.00 Weight (Pounds): 169 General Appearance: no apparent distress EENT: other - vented Cardiovascular: tachycardia Respiratory/Chest: decreased breath sounds Abdomen: distended Marques Motta MD Feb 08, 2019 17:14
--- NOTE | 2019-02-08 17:30 | NUR ---
NURSE NOTES: Patient VS stable. Patient denies pain. Patient IV fluid changed to D5W at this time. Patient cleaned and straightened in bed at this time.
--- NOTE | 2019-02-08 17:43 | General Progress Note ---
Assessment/Plan Assessment/Plan Assessment (1) Upper GI bleeding ICD Codes: K92.2 - Gastrointestinal hemorrhage, unspecified SNOMED: 71008847 (2) Anemia ICD Codes: D64.9 - Anemia, unspecified SNOMED: 685372835 (3) Diabetes mellitus ICD Codes: E11.9 - Type 2 diabetes mellitus without complications Assessment/Plan s/p EGD and hemostasis yesterday stable H&H now NGT feeds when OK with pulm cont protonix drip monitor H&H Subjective Allergies: Coded Allergies: No Known Allergies (Unverified , 09/15/16) Subjective Seen in ICU on BIPAP no complaints NGT --> dark aspirate Objective Last 24 Hour Vital Signs Date Time Temp Pulse Resp B/P (MAP) Pulse Ox O2 Delivery O2 Flow Rate FiO2 02/08/19 17:10 125 28 98 Facial 15.0 50 02/08/19 17:00 131 28 117/68 (84) 93 02/08/19 16:00 128 02/08/19 16:00 Room Air Room Air 02/08/19 16:00 50.0 02/08/19 16:00 98.7 129 31 117/57 (77) 96 02/08/19 15:00 50 02/08/19 15:00 130 30 121/69 (86) 97 02/08/19 14:57 113 30 100 Facial 15.0 50 02/08/19 14:03 121 29 131/80 (97) 100 02/08/19 13:02 115 24 98 Facial 15.0 60 02/08/19 13:00 112 28 127/69 (88) 94 02/08/19 12:00 Room Air Room Air 02/08/19 12:00 115 02/08/19 12:00 97.6 115 26 122/92 (102) 98 02/08/19 11:50 112 27 100 Facial 15.0 60 02/08/19 11:00 112 28 125/69 (87) 98 02/08/19 10:30 127/70 02/08/19 10:00 114 24 112/61 (78) 100 02/08/19 09:30 60.0 02/08/19 09:15 119 27 100 Facial 15.0 60 02/08/19 09:15 99 Bi-pap 60 02/08/19 09:15 Bi-pap 02/08/19 09:00 122 23 118/58 (78) 96 02/08/19 08:00 98.3 112 22 125/68 (87) 93 02/08/19 08:00 Room Air Room Air 02/08/19 08:00 112 02/08/19 07:00 112 18 122/64 (83) 94 02/08/19 06:00 114 20 122/66 (84) 95 02/08/19 05:00 111 24 122/65 (84) 94 02/08/19 04:00 Room Air Room Air 02/08/19 04:00 98.8 111 20 116/63 (80) 100 02/08/19 03:39 114 02/08/19 03:00 114 20 115/61 (79) 100 02/08/19 02:00 112 19 111/62 (78) 95 02/08/19 01:00 113 18 116/60 (78) 95 02/08/19 00:00 114 02/08/19 00:00 98.5 114 19 116/60 (78) 96 02/08/19 00:00 Room Air Room Air 02/07/19 23:00 112 18 122/62 (82) 100 02/07/19 22:00 113 18 114/53 (73) 95 02/07/19 21:00 116 14 126/68 (87) 97 02/07/19 20:42 Room Air 02/07/19 20:42 98 Room Air 21 02/07/19 20:00 118 02/07/19 20:00 Room Air Room Air 02/07/19 20:00 98.7 118 24 117/62 (80) 98 02/07/19 19:00 118 15 117/58 (77) 97 02/07/19 18:00 116 17 120/61 (80) 100 Intake and Output 02/07/19 02/08/19 19:00 07:00 Intake Total 1050 ml 1010 ml Output Total 1390 ml 525 ml Balance -340 ml 485 ml IV Total 1050 ml 1010 ml Output Urine Total 750 ml 515 ml Stool Total 400 ml Gastric Drainage Total 240 ml 10 ml # Bowel Movements 6 4 Laboratory Tests 02/07/19 21:10: White Blood Count 19.3H, Red Blood Count 3.07L, Hemoglobin 9.1L, Hematocrit 27.2L, Mean Corpuscular Volume 89, Mean Corpuscular Hemoglobin 29.7, Mean Corpuscular Hemoglobin Concent 33.6, Red Cell Distribution Width 14.9H, Platelet Count 169, Mean Platelet Volume 14.6H, Neutrophils (%) (Auto) , Lymphocytes (%) (Auto) , Monocytes (%) (Auto) , Eosinophils (%) (Auto) , Basophils (%) (Auto) 02/08/19 04:20: White Blood Count 19.9H, Red Blood Count 3.23L, Hemoglobin 9.4L, Hematocrit 28.8L, Mean Corpuscular Volume 89, Mean Corpuscular Hemoglobin 29.1, Mean Corpuscular Hemoglobin Concent 32.7, Red Cell Distribution Width 15.2H, Platelet Count 166, Mean Platelet Volume 11.3H, Neutrophils (%) (Auto) , Lymphocytes (%) (Auto) , Monocytes (%) (Auto) , Eosinophils (%) (Auto) , Basophils (%) (Auto) , Differential Total Cells Counted 100, Neutrophils % ( Manual) 84H, Lymphocytes % (Manual) 9L, Monocytes % (Manual) 7, Eosinophils % ( Manual) 0, Basophils % (Manual) 0, Band Neutrophils 0, Platelet Estimate Adequate, Platelet Morphology Normal, Anisocytosis 1+, Reticulocyte Count 0.8, Prothrombin Time 10.6, Prothromb Time International Ratio 1.0, Activated Partial Thromboplast Time 25, Sodium Level 154H, Potassium Level 4.2, Chloride Level 121H, Carbon Dioxide Level 18L, Anion Gap 15, Blood Urea Nitrogen 92H, Creatinine 4.5H, Estimat Glomerular Filtration Rate 11.9, Glucose Level 170H, Uric Acid 5.8, Calcium Level 8.0L, Phosphorus Level 3.0, Magnesium Level 1.7L, Total Bilirubin 0.4, Aspartate Amino Transf (AST/SGOT) 43H, Alanine Aminotransferase (ALT/SGPT) 88H, Alkaline Phosphatase 90, Troponin I 2.710H, Pro -B-Type Natriuretic Peptide 89369S, Total Protein 5.5L, Albumin 2.4L, Globulin 3.1, Albumin/Globulin Ratio 0.8L Height (Feet): 5 Height (Inches): 6.00 Weight (Pounds): 169 Objective Obese AA woman NCAT, (+) BIPAP and NGT supple Coarse BS RR abd soft ND ext (+) amputation Khorrami,Payman MD Feb 08, 2019 17:43
[2019-02-08] MEDS: Nitroglycerin 2% oint pkt TOPIC SCH (18:00)
--- NOTE | 2019-02-08 19:30 | NUR ---
HAND-OFF: Report given to MAYO Rubio. Patient VS stable at this time with no sign of acute distress.
--- NOTE | 2019-02-08 19:55 | NUR ---
NURSE NOTES: PATIENT ALERT, COMMUNICATED BY MOUTH SPEECH, RESPIRATION REGULAR, DENIED SOB OR DISCOMFORT WITH BIPAP, RATE 16, I/E 12/5, FIO2 50%, O2 SATURATION 100%, ABDOMEN SOFT, DISTENDED, NO N/V, NGT TO RIGHT NARES, NPO STATUS, LOWER INTERMITTENT SUCTION, DARK GREENISH WITH TINCT BLOODY COLOR OUTED, HYPOACTIVE BOWEL SOUND, NO BOWEL MOVEMENT STATUS, F/C INTACT AND PATENT, YELLOW URINE OUTED GRAVITY, AV FISTULA TO LEFT UPPER ARM, PALPABLE THRILL, BRUITS, KEPT LEFT ARM PRECAUTION, RIGHT AKA STATUS, ON SCD TO LEFT LOWER LEG, PERIPHERAL LINE TO RIGHT FOREARM 20G INTACT AND PATENT, ONGOING PROTONIX AT 25ML/HR AND D5W AT 50ML/HR VIA PERIPHERAL LINE, PROVIDED CALL LIGHT WITHIN REACH, MADE LOWER BED POSITION, WILL CONTINUE TO MONITOR.
--- NOTE | 2019-02-08 21:07 | NUR ---
NURSE NOTES: CALLED BACK FROM PT'S DAUGHTER WHO IS Veronica DE LA ROSA THAT UPDATED PT'S CONDITION.
--- NOTE | 2019-02-08 23:00 | NUR ---
NURSE NOTES: PATIENT ASLEEP ON AND OFF, WILL CONTINUE PLAN OF CARE.
[2019-02-09] VITALS (24 sets, daily range): BP systolic 94–129; BP diastolic 54–85
[2019-02-09] MEDS: Nitroglycerin 2% oint pkt TOPIC SCH ×4 (00:32→18:00)
[2019-02-09] MEDS: Pantoprazole 80 MG in NS 250 ML IV SCH ×2 (01:35→13:45)
--- NOTE | 2019-02-09 01:50 | NUR ---
NURSE NOTES: REPOSITIONED, ORAL CARE, RELEASED RESTRAINTS AND REAPPLIED FOR SAFETY, NO RESISTANCE TO CARE, WILL CONTINUE TO MONITOR.
--- NOTE | 2019-02-09 03:20 | NUR ---
NURSE NOTES: PATIENT TRIED TO REMOVE BP CUFF THAT INFORMED THE PATIENT REGARDING HIS SITUATION, WILL CONTINUE TO MONITOR. Addendum: 02/09/19 at 0621 kobi CAMARILLO RN NURSE NOTES: WRONG PATIENT.
--- NOTE | 2019-02-09 05:30 | NUR ---
NURSE NOTES: PATIENT TRIED TO OUT OF BED, NO AGITATED OR IRRITABLE STATUS, MADE LOWER BED POSITION AND KEPT ON BED ALARM, WILL CONTINUE TO MONITOR. Addendum: 02/09/19 at 0630 by ELVA CAMARILLO RN NURSE NOTES: WRONG PATIENT.
[2019-02-09] MEDS: Piperacillin/Tazobactam 2.25 GM in D5W 55 ML IVPB SCH ×3 (05:40→21:49)
--- NOTE | 2019-02-09 05:40 | NUR ---
NURSE NOTES: NASOPHARYNGEAL SUCTION WAS DONE BY RT, WHITISH BLOODY THICK DISCHARGE OUTED, PLACED ON O2 4LPM VIA VENTURI MASK BUT DESATURATION NOTED AT 0535AM. CHANGED TO BIPAP ON FIO2 45%, I/E 10/23, RATE 16 AT THIS TIME.
--- NOTE | 2019-02-09 06:19 | NUR ---
NURSE NOTES: PATIENT CALM IN BED, MORNING CARE WAS DONE, ANURIC AND NO BM STATUS AT THIS SHIFT. Addendum: 02/09/19 at 0623 by ELVA CAMARILLO RN NURSE NOTES: PATIENT CALM IN BED, MORNING CARE WAS DONE, NO BM STATUS AT THIS SHIFT.
[2019-02-09 06:42] LABS: HEMATOCRIT 29.3 % (37.0-47.0); HEMOGLOBIN 9.4 G/DL (12.0-16.0); MEAN CORPUSCULAR VOLUME 90 FL (80-99); PLATELET COUNT 215 K/UL (150-450); RED BLOOD COUNT 3.24 M/UL (4.20-5.40); RED CELL DISTRIBUTION WIDTH 15.1 % (11.6-14.8)
[2019-02-09 06:43] LABS: WHITE BLOOD COUNT 24.5 K/UL (4.8-10.8)
--- NOTE | 2019-02-09 06:51 | NUR ---
NURSE NOTES: CALLED BACK FROM LAB/[facility] REGARDING CRITICAL WBC RESULT 24.5 THAT WILL ENDORSE TO DAY SHIFT DUE TO PENDING OTHER RESULT.
--- NOTE | 2019-02-09 07:03 | NUR ---
HAND-OFF: Report given to MAYO ZAMORA.
--- NOTE | 2019-02-09 07:04 | NUR ---
NURSE NOTES: Received patient from MAYO Rubio. Patient VS stable at this time with no sign of acute distress. Patient alert at this time. Patient leaning to the right side on the bed. I placed the pillow under her head. She verified that she was comfortable at this time and denies pain or discomfort. Patient on Venturi mask 50% with SpO2 saturation at 98% at this time. Patient was on BiPAP 12/ last night with FiO2 50%. Patient has NGT that is set to low intermittent suction at this time. Patient had minimal output overnight from NGT. Output black at this time. Patient has hemodialysis for end stage renal disease. Patient's dialysis schedule is Sunday, , Sunday. Patient has raphael for urine retention at this time. Patient had total 500mL output overnight. Patient has a healed sacral wound that is intact at this time. Patient has a right forearm 20G PIV that is patent, asymptomatic, and intact at this. Patient running D5W at 50mL/hr. Patient running Protonix drip at 8mg/hr at this time. Patient has left upper arm AV shunt. Patient on bilateral soft wrist restraint at this time. Patient previously pulled out her NGT. Patient peripheral pulses present with no swelling at this time. Patient bed in low position with bed alarm on and call light in reach at this time.
[2019-02-09 07:32] LABS: PHOSPHORUS 3.1 MG/DL (2.5-4.9)
[2019-02-09 07:41] LABS: ALANINE AMINOTRANSFERASE 56 U/L (12-78); ALBUMIN 2.2 G/DL (3.4-5.0); ALBUMIN/GLOBULIN RATIO 0.7 (1.0-2.7); ALKALINE PHOSPHATASE 86 U/L (46-116); ANION GAP 18 mmol/L (5-15); ASPARTATE AMINO TRANSFERASE 36 U/L (15-37); BILIRUBIN,TOTAL 0.7 MG/DL (0.2-1.0); BLOOD UREA NITROGEN 98 mg/dL (7-18); CALCIUM 8.5 MG/DL (8.5-10.1); CARBON DIOXIDE 15 MMOL/L (21-32); CHLORIDE 121 MMOL/L (98-107); CREATININE 4.9 MG/DL (0.55-1.30); POTASSIUM 4.2 MMOL/L (3.5-5.1); SODIUM 154 MMOL/L (136-145)
--- NOTE | 2019-02-09 07:47 | NUR ---
NURSE NOTES: Received report for troponin critical value of 5.861 from lab at this time.
--- NOTE | 2019-02-09 09:00 | NUR ---
NURSE NOTES: Patient does not tolerate venturi mask. Patient switched back to BiPAP 12/5 with 65% FiO2.
--- NOTE | 2019-02-09 09:30 | NUR ---
NURSE NOTES: Patient VS stable at this time with no sign of acute distress. Patient denies pain at this time. Patient has a temperature of 99.2. Blankets have been removed.
--- NOTE | 2019-02-09 09:33 | Diagnostic Imaging Report ---
EXAM: XR Chest, 1 View CLINICAL HISTORY: DYSPNEA TECHNIQUE: Frontal view of the chest. COMPARISON: Chest x-ray 02/08/19 742 FINDINGS: Lungs: Interval worsening bilateral airspace opacities, more consolidated in the right upper lobe. Pleural space: Query small right pleural effusion. No pneumothorax. Heart: Mild cardiomegaly. Mediastinum: Unremarkable. Bones/joints: Unremarkable. Tubes, lines and devices: Stable NG tube. IMPRESSION: 1. Interval worsening bilateral airspace opacities, more consolidated in the right upper lobe. 2. Query small right pleural effusion.
--- NOTE | 2019-02-09 09:47 | Cardiology Progress Note ---
Assessment/Plan Assessment/Plan nicole tineo related to profound anemim aspiration penumoni tachy anemai bb ecotrin only if ok with gi repeat ekg and trop adn echo statin [id number] Objective Last 24 Hour Vital Signs Date Time Temp Pulse Resp B/P (MAP) Pulse Ox O2 Delivery O2 Flow Rate FiO2 02/09/19 08:31 121 27 95 Facial 65 02/09/19 07:03 100 Venturi Mask 14.0 55 02/09/19 07:03 Venturi Mask 14.0 55 02/09/19 06:00 113 30 116/64 (81) 100 02/09/19 05:40 122/62 02/09/19 05:00 113 22 117/61 (79) 98 02/09/19 04:00 Bi-pap Bi-pap 02/09/19 04:00 35 02/09/19 04:00 99.2 114 24 129/67 (87) 98 02/09/19 03:28 110 29 99 Full Face 35 02/09/19 03:00 113 24 124/62 (82) 96 02/09/19 02:00 113 25 111/63 (79) 97 02/09/19 01:21 109 30 100 Facial 40 02/09/19 01:00 105 27 106/60 (75) 99 02/09/19 00:32 113/73 02/09/19 00:21 110 02/09/19 00:00 45 02/09/19 00:00 Bi-pap Bi-pap 02/09/19 00:00 98.7 107 28 113/73 (86) 100 02/08/19 23:03 110 28 100 Facial 45 02/08/19 23:00 109 26 101/53 (69) 100 02/08/19 22:00 113 27 95/50 (65) 100 02/08/19 21:03 116 27 100 Facial 45 02/08/19 21:00 45 02/08/19 21:00 117 28 90/54 (66) 100 02/08/19 20:59 117 02/08/19 20:00 Bi-pap Bi-pap 02/08/19 20:00 50 02/08/19 20:00 98.5 122 31 92/54 (67) 99 02/08/19 19:09 99 Bi-pap 50 02/08/19 19:09 Bi-pap 50 02/08/19 19:09 123 28 98 Facial 50 02/08/19 19:00 122 26 93/50 (64) 100 02/08/19 18:00 93/50 02/08/19 18:00 121 29 102/52 (69) 96 02/08/19 17:10 125 28 98 Facial 15.0 50 02/08/19 17:00 131 28 117/68 (84) 93 02/08/19 16:00 128 02/08/19 16:00 Room Air Room Air 02/08/19 16:00 50.0 02/08/19 16:00 98.7 129 31 117/57 (77) 96 02/08/19 15:00 50 02/08/19 15:00 130 30 121/69 (86) 97 02/08/19 14:57 113 30 100 Facial 15.0 50 02/08/19 14:03 121 29 131/80 (97) 100 02/08/19 13:02 115 24 98 Facial 15.0 60 02/08/19 13:00 112 28 127/69 (88) 94 02/08/19 12:00 Room Air Room Air 02/08/19 12:00 115 02/08/19 12:00 97.6 115 26 122/92 (102) 98 02/08/19 11:50 112 27 100 Facial 15.0 60 02/08/19 11:00 112 28 125/69 (87) 98 02/08/19 10:30 127/70 02/08/19 10:00 114 24 112/61 (78) 100 Intake and Output 02/08/19 02/09/19 19:00 07:00 Intake Total 780 ml 935 ml Output Total 265 ml 455 ml Balance 515 ml 480 ml IV Total 780 ml 935 ml Output Urine Total 265 ml 455 ml Gastric Drainage Total 0 ml # Bowel Movements 3 Laboratory Tests Test 02/09/19 06:20 White Blood Count 24.5 K/UL (4.8-10.8) *H Red Blood Count 3.24 M/UL (4.20-5.40) L Hemoglobin 9.4 G/DL (12.0-16.0) L Hematocrit 29.3 % (37.0-47.0) L Mean Corpuscular Volume 90 FL (80-99) Mean Corpuscular Hemoglobin 29.0 PG (27.0-31.0) Mean Corpuscular Hemoglobin Concent 32.1 G/DL (32.0-36.0) Red Cell Distribution Width 15.1 % (11.6-14.8) H Platelet Count 215 K/UL (150-450) Mean Platelet Volume 11.3 FL (6.5-10.1) H Neutrophils (%) (Auto) % (45.0-75.0) Lymphocytes (%) (Auto) % (20.0-45.0) Monocytes (%) (Auto) % (1.0-10.0) Eosinophils (%) (Auto) % (0.0-3.0) Basophils (%) (Auto) % (0.0-2.0) Differential Total Cells Counted 100 Neutrophils % (Manual) 91 % (45-75) H Lymphocytes % (Manual) 4 % (20-45) L Monocytes % (Manual) 2 % (1-10) Eosinophils % (Manual) 0 % (0-3) Basophils % (Manual) 0 % (0-2) Band Neutrophils 3 % (0-8) Platelet Estimate Adequate Platelet Morphology Normal Anisocytosis 1+ Schistocytes Occasional Sodium Level 154 MMOL/L (136-145) H Potassium Level 4.2 MMOL/L (3.5-5.1) Chloride Level 121 MMOL/L (98-107) H Carbon Dioxide Level 15 MMOL/L (21-32) L Anion Gap 18 mmol/L (5-15) H Blood Urea Nitrogen 98 mg/dL (7-18) H Creatinine 4.9 MG/DL (0.55-1.30) H Estimat Glomerular Filtration Rate 10.7 mL/min (>60) Glucose Level 201 MG/DL (74-106) H Calcium Level 8.5 MG/DL (8.5-10.1) Phosphorus Level 3.1 MG/DL (2.5-4.9) Magnesium Level 1.6 MG/DL (1.8-2.4) L Total Bilirubin 0.7 MG/DL (0.2-1.0) Aspartate Amino Transf (AST/SGOT) 36 U/L (15-37) Alanine Aminotransferase (ALT/SGPT) 56 U/L (12-78) Alkaline Phosphatase 86 U/L (46-116) Troponin I 5.861 ng/mL (0.000-0.056) Pro-B-Type Natriuretic Peptide > 43866 pg/mL (0-125) H Total Protein 5.5 G/DL (6.4-8.2) L Albumin 2.2 G/DL (3.4-5.0) L Globulin 3.3 g/dL Albumin/Globulin Ratio 0.7 (1.0-2.7) L Kaushik Franco MD Feb 09, 2019 09:47
[2019-02-09] MEDS: DOPamine 400mg/250ml 250 ML IV SCH (10:30)
--- NOTE | 2019-02-09 12:00 | NUR ---
NURSE NOTES: VS stable at this time. Patient has a temperature of 99.3 at this time. Cooling measures applied. Patient denies pain or discomfort.
--- NOTE | 2019-02-09 12:32 | Pulmonolgy Critical Care Note ---
Critical Care - Asmt/Plan Problems: (1) Respiratory failure, acute (2) Acute encephalopathy (3) Hemorrhagic shock (4) Upper GI bleeding (5) ESRF (end stage renal failure) (6) Diabetes mellitus (7) S/P AKA (above knee amputation) unilateral Respiratory: monitor respiratory rate, adjust FIO2, CXR, ABG Renal: F/U I&O Infectious Disease: check cultures, continue antibiotics Gastrointestinal: hold feedings Endocrine: monitor blood sugar Hematologic: monitor H/H Neurologic: PRN Ativan, PRN Morphine, keep patient comfortable Prophylaxis: Protonix, Heparin Time Spent (Minutes): 40 Notes Reviewed: cardio, 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, consultants, family member Critical Care - Objective Last 24 Hour Vital Signs Date Time Temp Pulse Resp B/P (MAP) Pulse Ox O2 Delivery O2 Flow Rate FiO2 02/09/19 11:08 109 25 100 Facial 55 02/09/19 11:00 55 02/09/19 10:30 118/61 02/09/19 10:00 111 26 114/59 (77) 100 02/09/19 09:43 116 32 100 Facial 65 02/09/19 09:00 115 28 118/61 (80) 100 02/09/19 08:31 121 27 95 Facial 65 02/09/19 08:00 Bi-pap Bi-pap 02/09/19 08:00 65 02/09/19 08:00 129 02/09/19 08:00 99.2 120 31 94/54 (67) 96 02/09/19 07:03 100 Venturi Mask 14.0 55 02/09/19 07:03 Venturi Mask 14.0 55 02/09/19 07:00 125 28 117/85 (96) 96 02/09/19 06:00 113 30 116/64 (81) 100 02/09/19 05:40 122/62 02/09/19 05:00 113 22 117/61 (79) 98 02/09/19 04:00 Bi-pap Bi-pap 02/09/19 04:00 35 02/09/19 04:00 99.2 114 24 129/67 (87) 98 02/09/19 03:28 110 29 99 Full Face 35 02/09/19 03:00 113 24 124/62 (82) 96 02/09/19 02:00 113 25 111/63 (79) 97 3/24/19 01:21 109 30 100 Facial 40 02/09/19 01:00 105 27 106/60 (75) 99 02/09/19 00:32 113/73 02/09/19 00:21 110 02/09/19 00:00 45 02/09/19 00:00 Bi-pap Bi-pap 02/09/19 00:00 98.7 107 28 113/73 (86) 100 02/08/19 23:03 110 28 100 Facial 45 02/08/19 23:00 109 26 101/53 (69) 100 02/08/19 22:00 113 27 95/50 (65) 100 02/08/19 21:03 116 27 100 Facial 45 02/08/19 21:00 45 02/08/19 21:00 117 28 90/54 (66) 100 02/08/19 20:59 117 02/08/19 20:00 Bi-pap Bi-pap 02/08/19 20:00 50 02/08/19 20:00 98.5 122 31 92/54 (67) 99 02/08/19 19:09 99 Bi-pap 50 02/08/19 19:09 Bi-pap 50 02/08/19 19:09 123 28 98 Facial 50 02/08/19 19:00 122 26 93/50 (64) 100 02/08/19 18:00 93/50 02/08/19 18:00 121 29 102/52 (69) 96 02/08/19 17:10 125 28 98 Facial 15.0 50 02/08/19 17:00 131 28 117/68 (84) 93 02/08/19 16:00 128 02/08/19 16:00 Room Air Room Air 02/08/19 16:00 50.0 02/08/19 16:00 98.7 129 31 117/57 (77) 96 02/08/19 15:00 50 02/08/19 15:00 130 30 121/69 (86) 97 02/08/19 14:57 113 30 100 Facial 15.0 50 02/08/19 14:03 121 29 131/80 (97) 100 02/08/19 13:02 115 24 98 Facial 15.0 60 02/08/19 13:00 112 28 127/69 (88) 94 Status: somnolent Condition: critical HEENT: atraumatic Neck: full ROM Heart: HR/BP stable, HR/BP unstable Abdomen: soft, feeding tube Extremities: edema Decubiti: location Critical Care - Subjective ROS Limited/Unobtainable: Yes Condition: critical EKG Rhythm: Sinus Rhythm FI02: 55 Vent Support Breath Rate: 16 Vent Support Mode: BiLevel Vent Tidal Volume: 550 Sputum Amount: None PEEP: 5.0 PIP: 14 I&O: Intake and Output 02/08/19 02/09/19 19:00 07:00 Intake Total 780 ml 935 ml Output Total 265 ml 455 ml Balance 515 ml 480 ml IV Total 780 ml 935 ml Output Urine Total 265 ml 455 ml Gastric Drainage Total 0 ml # Bowel Movements 3 CXR: extensive dense infiltrate ET-Tube: 8.0 ET Position: 24 Labs: Laboratory Tests Test 02/09/19 06:20 White Blood Count 24.5 K/UL (4.8-10.8) *H Red Blood Count 3.24 M/UL (4.20-5.40) L Hemoglobin 9.4 G/DL (12.0-16.0) L Hematocrit 29.3 % (37.0-47.0) L Mean Corpuscular Volume 90 FL (80-99) Mean Corpuscular Hemoglobin 29.0 PG (27.0-31.0) Mean Corpuscular Hemoglobin Concent 32.1 G/DL (32.0-36.0) Red Cell Distribution Width 15.1 % (11.6-14.8) H Platelet Count 215 K/UL (150-450) Mean Platelet Volume 11.3 FL (6.5-10.1) H Neutrophils (%) (Auto) % (45.0-75.0) Lymphocytes (%) (Auto) % (20.0-45.0) Monocytes (%) (Auto) % (1.0-10.0) Eosinophils (%) (Auto) % (0.0-3.0) Basophils (%) (Auto) % (0.0-2.0) Differential Total Cells Counted 100 Neutrophils % (Manual) 91 % (45-75) H Lymphocytes % (Manual) 4 % (20-45) L Monocytes % (Manual) 2 % (1-10) Eosinophils % (Manual) 0 % (0-3) Basophils % (Manual) 0 % (0-2) Band Neutrophils 3 % (0-8) Platelet Estimate Adequate Platelet Morphology Normal Anisocytosis 1+ Schistocytes Occasional Sodium Level 154 MMOL/L (136-145) H Potassium Level 4.2 MMOL/L (3.5-5.1) Chloride Level 121 MMOL/L (98-107) H Carbon Dioxide Level 15 MMOL/L (21-32) L Anion Gap 18 mmol/L (5-15) H Blood Urea Nitrogen 98 mg/dL (7-18) H Creatinine 4.9 MG/DL (0.55-1.30) H Estimat Glomerular Filtration Rate 10.7 mL/min (>60) Glucose Level 201 MG/DL (74-106) H Calcium Level 8.5 MG/DL (8.5-10.1) Phosphorus Level 3.1 MG/DL (2.5-4.9) Magnesium Level 1.6 MG/DL (1.8-2.4) L Total Bilirubin 0.7 MG/DL (0.2-1.0) Aspartate Amino Transf (AST/SGOT) 36 U/L (15-37) Alanine Aminotransferase (ALT/SGPT) 56 U/L (12-78) Alkaline Phosphatase 86 U/L (46-116) Troponin I 5.861 ng/mL (0.000-0.056) Pro-B-Type Natriuretic Peptide > 67599 pg/mL (0-125) H Total Protein 5.5 G/DL (6.4-8.2) L Albumin 2.2 G/DL (3.4-5.0) L Globulin 3.3 g/dL Albumin/Globulin Ratio 0.7 (1.0-2.7) L Lit Cerna MD Feb 09, 2019 12:32
--- NOTE | 2019-02-09 12:56 | NUR ---
CASE MANAGEMENT: REVIEW 02/09/2019 SI:GI BLEED. T: 99.2 HR 120 RR 31 B/P 94/54 SATS 96% ON BIPAP FiO2 65 WBC 24.5 NA 154 CL 121 CO2 15 AGAP 18 BUN 98 CR 4.9 GLU 201 BNP >35K TROPONIN 5.861 IS:PROTONIX DRIP @ 25 mL/HR DEXTROSE IV @ 50 mL/HR DOPAMINE IV PER PARAMETERS METOPROLOL IV @ 130 mL/HR ZOSYN IV Q8H DCP: PATIENT TO BE DC TO SNF [facility] OF [facility]: CONTINUE CURRENT TX CXR
[2019-02-09] MEDS: Metoprolol Tartrate 2.5 MG in D5W 55 ML IVPB SCH ×2 (13:13→18:00)
--- NOTE | 2019-02-09 13:46 | NUR ---
NURSE NOTES: Scanned Protonix early. Previous bag empty.
--- NOTE | 2019-02-09 13:53 | Nephrology Progress Note ---
Assessment/Plan Problem List: (1) Upper GI bleeding (2) Hemorrhagic shock (3) ESRF (end stage renal failure) (4) NSTEMI (non-ST elevated myocardial infarction) (5) Respiratory failure, acute (6) Lung mass Assessment admitted with massive GI bleed and hypotension ESRD : M W Fr h/o UTI now , on vent, respitatory failure Other medical conditions; Type 2 diabetes. Hypertension. h/o Anemia of chronic renal disease Hypercholesterolemia. Peripheral vascular disease. Alzheimer's dementia. ?? LUNG Pathology PAST SURGICAL HISTORY: 1. Right [id number] amputation. 2. Open reduction internal fixation Plan Plan: on BIPAP change protonix drip to IV q12h IV fluid to D5 HD in am no heparin monitor H&h monitor troponin I monitor lytes and renal parameters antibiotics for uti start NTG Paste Objective Objective Last 24 Hour Vital Signs Date Time Temp Pulse Resp B/P (MAP) Pulse Ox O2 Delivery O2 Flow Rate FiO2 02/09/19 13:13 107 111/60 02/09/19 13:11 103 24 100 Facial 55 02/09/19 12:00 111/60 02/09/19 11:08 109 25 100 Facial 55 02/09/19 11:00 55 02/09/19 10:30 118/61 02/09/19 10:00 111 26 114/59 (77) 100 02/09/19 09:43 116 32 100 Facial 65 02/09/19 09:00 115 28 118/61 (80) 100 02/09/19 08:31 121 27 95 Facial 65 02/09/19 08:00 Bi-pap Bi-pap 02/09/19 08:00 65 02/09/19 08:00 129 02/09/19 08:00 99.2 120 31 94/54 (67) 96 02/09/19 07:03 100 Venturi Mask 14.0 55 02/09/19 07:03 Venturi Mask 14.0 55 02/09/19 07:00 125 28 117/85 (96) 96 02/09/19 06:00 113 30 116/64 (81) 100 02/09/19 05:40 122/62 02/09/19 05:00 113 22 117/61 (79) 98 02/09/19 04:00 Bi-pap Bi-pap 02/09/19 04:00 35 02/09/19 04:00 99.2 114 24 129/67 (87) 98 02/09/19 03:28 110 29 99 Full Face 35 02/09/19 03:00 113 24 124/62 (82) 96 02/09/19 02:00 113 25 111/63 (79) 97 02/09/19 01:21 109 30 100 Facial 40 02/09/19 01:00 105 27 106/60 (75) 99 02/09/19 00:32 113/73 02/09/19 00:21 110 02/09/19 00:00 45 02/09/19 00:00 Bi-pap Bi-pap 02/09/19 00:00 98.7 107 28 113/73 (86) 100 02/08/19 23:03 110 28 100 Facial 45 02/08/19 23:00 109 26 101/53 (69) 100 02/08/19 22:00 113 27 95/50 (65) 100 02/08/19 21:03 116 27 100 Facial 45 02/08/19 21:00 45 02/08/19 21:00 117 28 90/54 (66) 100 02/08/19 20:59 117 02/08/19 20:00 Bi-pap Bi-pap 02/08/19 20:00 50 02/08/19 20:00 98.5 122 31 92/54 (67) 99 02/08/19 19:09 99 Bi-pap 50 02/08/19 19:09 Bi-pap 50 02/08/19 19:09 123 28 98 Facial 50 02/08/19 19:00 122 26 93/50 (64) 100 02/08/19 18:00 93/50 02/08/19 18:00 121 29 102/52 (69) 96 02/08/19 17:10 125 28 98 Facial 15.0 50 02/08/19 17:00 131 28 117/68 (84) 93 02/08/19 16:00 128 02/08/19 16:00 Room Air Room Air 02/08/19 16:00 50.0 02/08/19 16:00 98.7 129 31 117/57 (77) 96 02/08/19 15:00 50 02/08/19 15:00 130 30 121/69 (86) 97 02/08/19 14:57 113 30 100 Facial 15.0 50 02/08/19 14:03 121 29 131/80 (97) 100 Intake and Output 02/08/19 02/09/19 19:00 07:00 Intake Total 780 ml 935 ml Output Total 265 ml 455 ml Balance 515 ml 480 ml IV Total 780 ml 935 ml Output Urine Total 265 ml 455 ml Gastric Drainage Total 0 ml # Bowel Movements 3 Laboratory Tests 02/09/19 06:20: White Blood Count 24.5*H, Red Blood Count 3.24L, Hemoglobin 9.4L, Hematocrit 29.3L, Mean Corpuscular Volume 90, Mean Corpuscular Hemoglobin 29.0, Mean Corpuscular Hemoglobin Concent 32.1, Red Cell Distribution Width 15.1H, Platelet Count 215, Mean Platelet Volume 11.3H, Neutrophils (%) (Auto) , Lymphocytes (%) (Auto) , Monocytes (%) (Auto) , Eosinophils (%) (Auto) , Basophils (%) (Auto) , Differential Total Cells Counted 100, Neutrophils % ( Manual) 91H, Lymphocytes % (Manual) 4L, Monocytes % (Manual) 2, Eosinophils % ( Manual) 0, Basophils % (Manual) 0, Band Neutrophils 3, Platelet Estimate Adequate, Platelet Morphology Normal, Anisocytosis 1+, Schistocytes Occasional, Sodium Level 154H, Potassium Level 4.2, Chloride Level 121H, Carbon Dioxide Level 15L, Anion Gap 18H, Blood Urea Nitrogen 98H, Creatinine 4.9H, Estimat Glomerular Filtration Rate 10.7, Glucose Level 201H, Calcium Level 8.5, Phosphorus Level 3.1, Magnesium Level 1.6L, Total Bilirubin 0.7, Aspartate Amino Transf (AST/SGOT) 36, Alanine Aminotransferase (ALT/SGPT) 56, Alkaline Phosphatase 86, Troponin I 5.861H, Pro-B-Type Natriuretic Peptide > 80058X, Total Protein 5.5L, Albumin 2.2L, Globulin 3.3, Albumin/Globulin Ratio 0.7L Height (Feet): 5 Height (Inches): 6.00 Weight (Pounds): 169 Marques Motta MD Feb 09, 2019 13:53
--- NOTE | 2019-02-09 14:00 | NUR ---
NURSE NOTES: Patient VS stable at this time. Patient denies pain. Patient NGT output clear with small amount of clot and no sign of active bleeding.
--- NOTE | 2019-02-09 16:31 | NUR ---
NURSE NOTES: [facility] notified regarding dialysis scheduled for tomorrow.
--- NOTE | 2019-02-09 19:11 | General Progress Note ---
Assessment/Plan Assessment/Plan Assessment (1) Upper GI bleeding, severe ICD Codes: K92.2 - Gastrointestinal hemorrhage, unspecified SNOMED: 86949788 (2) Anemia ICD Codes: D64.9 - Anemia, unspecified SNOMED: 455255710 (3) Diabetes mellitus ICD Codes: E11.9 - Type 2 diabetes mellitus without complications (4) Resp failure (5) Elevated troponin, AMI Assessment/Plan s/p EGD and hemostasis stable H&H now Begin ASA daily today NGT feeds when OK with pulmonary cont protonix drip monitor H&H Subjective Allergies: Coded Allergies: No Known Allergies (Unverified , 09/15/16) Subjective Seen in ICU on BIPAP no complaints NGT lavaged - some dark blood noted, lavaged to clear with about 250 cc H2O Objective Last 24 Hour Vital Signs Date Time Temp Pulse Resp B/P (MAP) Pulse Ox O2 Delivery O2 Flow Rate FiO2 02/09/19 19:06 100 26 99 Facial 45 02/09/19 18:00 100 21 105/57 (73) 99 02/09/19 17:12 97 22 99 Facial 45 02/09/19 17:00 99 24 112/78 (89) 100 02/09/19 16:00 98 02/09/19 16:00 55 02/09/19 16:00 Bi-pap Bi-pap 02/09/19 16:00 98.6 98 24 101/56 (71) 100 02/09/19 15:00 97 26 101/56 (71) 100 02/09/19 14:58 93 23 100 Facial 45 02/09/19 14:00 97 26 119/64 (82) 100 02/09/19 13:13 107 111/60 02/09/19 13:11 103 24 100 Facial 55 02/09/19 13:00 106 26 106/63 (77) 100 02/09/19 12:00 Bi-pap Bi-pap 02/09/19 12:00 111/60 02/09/19 12:00 106 02/09/19 12:00 99.3 108 26 111/60 (77) 100 02/09/19 11:08 109 25 100 Facial 55 02/09/19 11:00 55 02/09/19 11:00 110 26 115/61 (79) 100 02/09/19 10:30 118/61 02/09/19 10:00 111 26 114/59 (77) 100 02/09/19 09:43 116 32 100 Facial 65 02/09/19 09:00 115 28 118/61 (80) 100 02/09/19 08:31 121 27 95 Facial 65 02/09/19 08:00 Bi-pap Bi-pap 02/09/19 08:00 65 02/09/19 08:00 129 02/09/19 08:00 99.2 120 31 94/54 (67) 96 02/09/19 07:03 100 Venturi Mask 14.0 55 02/09/19 07:03 Venturi Mask 14.0 55 02/09/19 07:00 125 28 117/85 (96) 96 02/09/19 06:00 113 30 116/64 (81) 100 02/09/19 05:40 122/62 02/09/19 05:00 113 22 117/61 (79) 98 02/09/19 04:00 Bi-pap Bi-pap 02/09/19 04:00 35 02/09/19 04:00 99.2 114 24 129/67 (87) 98 02/09/19 03:28 110 29 99 Full Face 35 02/09/19 03:00 113 24 124/62 (82) 96 02/09/19 02:00 113 25 111/63 (79) 97 02/09/19 01:21 109 30 100 Facial 40 02/09/19 01:00 105 27 106/60 (75) 99 02/09/19 00:32 113/73 02/09/19 00:21 110 02/09/19 00:00 45 02/09/19 00:00 Bi-pap Bi-pap 02/09/19 00:00 98.7 107 28 113/73 (86) 100 02/08/19 23:03 110 28 100 Facial 45 02/08/19 23:00 109 26 101/53 (69) 100 02/08/19 22:00 113 27 95/50 (65) 100 02/08/19 21:03 116 27 100 Facial 45 02/08/19 21:00 45 02/08/19 21:00 117 28 90/54 (66) 100 02/08/19 20:59 117 02/08/19 20:00 Bi-pap Bi-pap 02/08/19 20:00 50 02/08/19 20:00 98.5 122 31 92/54 (67) 99 Intake and Output 02/08/19 02/09/19 19:00 07:00 Intake Total 780 ml 935 ml Output Total 265 ml 455 ml Balance 515 ml 480 ml IV Total 780 ml 935 ml Output Urine Total 265 ml 455 ml Gastric Drainage Total 0 ml # Bowel Movements 3 Laboratory Tests 02/09/19 06:20: White Blood Count 24.5*H, Red Blood Count 3.24L, Hemoglobin 9.4L, Hematocrit 29.3L, Mean Corpuscular Volume 90, Mean Corpuscular Hemoglobin 29.0, Mean Corpuscular Hemoglobin Concent 32.1, Red Cell Distribution Width 15.1H, Platelet Count 215, Mean Platelet Volume 11.3H, Neutrophils (%) (Auto) , Lymphocytes (%) (Auto) , Monocytes (%) (Auto) , Eosinophils (%) (Auto) , Basophils (%) (Auto) , Differential Total Cells Counted 100, Neutrophils % ( Manual) 91H, Lymphocytes % (Manual) 4L, Monocytes % (Manual) 2, Eosinophils % ( Manual) 0, Basophils % (Manual) 0, Band Neutrophils 3, Platelet Estimate Adequate, Platelet Morphology Normal, Anisocytosis 1+, Schistocytes Occasional, Sodium Level 154H, Potassium Level 4.2, Chloride Level 121H, Carbon Dioxide Level 15L, Anion Gap 18H, Blood Urea Nitrogen 98H, Creatinine 4.9H, Estimat Glomerular Filtration Rate 10.7, Glucose Level 201H, Calcium Level 8.5, Phosphorus Level 3.1, Magnesium Level 1.6L, Total Bilirubin 0.7, Aspartate Amino Transf (AST/SGOT) 36, Alanine Aminotransferase (ALT/SGPT) 56, Alkaline Phosphatase 86, Troponin I 5.861H, Pro-B-Type Natriuretic Peptide > 92365M, Total Protein 5.5L, Albumin 2.2L, Globulin 3.3, Albumin/Globulin Ratio 0.7L Height (Feet): 5 Height (Inches): 6.00 Weight (Pounds): 169 Objective Obese AA woman NCAT, (+) BIPAP and NGT supple Coarse BS RR abd soft ND ext (+) amputation Laurel Boston MD Feb 09, 2019 19:11
[2019-02-09] MEDS ORDERED: Aspirin Baby 81mg NG SCH (19:30)
--- NOTE | 2019-02-09 19:38 | NUR ---
HAND-OFF: Report given to Ramiro Hendricks RN using SBAR.
--- NOTE | 2019-02-09 19:39 | NUR ---
HAND-OFF: Report given to MAYO Jimenez. Patient VS stable at this time with no sign of acute distress. Addendum: 02/09/19 at 2005 by Kamila Silveira RN report given at 1800
--- NOTE | 2019-02-09 19:40 | NUR ---
NURSE NOTES: PATIENT LETHARGIC, RESPIRATION REGULAR, DENIED SOB OR DISCOMFORT WITH BIPAP, RATE 16, I/E 12/5, FIO2 45%, O2 SATURATION 100%, ABDOMEN SOFT, DISTENDED, NO N/V, NGT TO RIGHT NARES, NPO STATUS, LOWER INTERMITTENT SUCTION, DARK GREENISH COLOR OUTED, HYPOACTIVE BOWEL SOUND, NO BOWEL MOVEMENT STATUS, F/C INTACT AND PATENT, YELLOW URINE OUTED GRAVITY, OLIGURIA NOTED, AV FISTULA TO LEFT UPPER ARM, PALPABLE THRILL, BRUITS, KEPT LEFT ARM PRECAUTION, RIGHT AKA STATUS, ON SCD TO LEFT LOWER LEG, PERIPHERAL LINE TO RIGHT FOREARM 20G INTACT AND PATENT, AND D5W AT 50ML/HR VIA PERIPHERAL LINE, PROVIDED CALL LIGHT WITHIN REACH, MADE LOWER BED POSITION, WILL CONTINUE TO MONITOR.
[2019-02-09] MEDS: Pantoprazole Inj IVP SCH (20:53)
--- NOTE | 2019-02-09 22:00 | NUR ---
NURSE NOTES: PATIENT AWOKE, STILL LETHARGIC STATUS, ABLE TO EYE CONTACT, NO PAIN OR DISTRESS NOTED AT THIS TIME.
[2019-02-10] VITALS (24 sets, daily range): BP systolic 88–128; BP diastolic 50–78
--- NOTE | 2019-02-10 | NUR ---
NURSE NOTES: REPOSITIONED, ORAL CARE WAS DONE.
[2019-02-10] MEDS: Nitroglycerin 2% oint pkt TOPIC SCH ×4 (00:08→18:00)
[2019-02-10] MEDS: Metoprolol Tartrate 2.5 MG in D5W 55 ML IVPB SCH ×4 (00:08→18:00)
--- NOTE | 2019-02-10 01:45 | Consultation ---
DATE OF CONSULTATION: 02/09/2019 CONSULTING PHYSICIAN: Kaushik Franco M.D. REFERRING PHYSICIAN: Lit Cerna M.D REASON FOR REFERRAL: Abnormal cardiac enzymes. HISTORY OF PRESENT ILLNESS: This is an elderly female who is really not a good history. The patient lives in a convalescent facility. She was transferred, appears based on the records from the convalescent facility initially, who has had complaints of altered mentation and vaginal bleeding and in the emergency room subsequently, has been determined that she has had GI bleeding. The patient has undergone hemostasis after endoscopy was performed and is now stable. This consultation was because her cardiac enzymes were noted to be abnormal. On questioning, she actually denies any chest pain or shortness of breath or dizziness or lightheadedness or palpitations. However, I am not sure of how much of the information she has provided is actually accurate. Her cardiac enzymes have increased on repeat testing today. PAST MEDICAL HISTORY: Positive for ESBL E. coli UTI; end-stage renal disease, on hemodialysis; diabetes mellitus, type 2; hypertension; hyperlipidemia; peripheral vascular disease, status post AKA; Alzheimer dementia; lung mass; multiple gastric polyps, status post polypectomy; gastric antral vascular ectasia, status post 02:19; and also history of deep venous thrombosis on prior occasions. ALLERGIES: She is reportedly not allergic to any medications. SOCIAL HISTORY: Apparently, she is legally according to the old records. No alcohol, tobacco, or smoking. She lives in a convalescent facility. REVIEW OF SYSTEMS: CONSTITUTIONAL: No fevers, chills, or night sweats. GASTROINTESTINAL: She denies any abdominal pain, nausea, or vomiting despite what was noted above. GENITOURINARY: Negative. PULMONARY: Denies any coughing or wheezing. PHYSICAL EXAMINATION: GENERAL: Shows to be elderly female, on BiPAP therapy. NECK: Supple. No jugular venous distention. LUNGS: She does show some crackles and rhonchi. CARDIAC: Regular rhythm. Tachycardic. No heaves or thrills. ABDOMEN: Soft and nontender. Positive bowel sounds. EXTREMITIES: Right above-knee amputation 03:26 significant edema. LABORATORY AND DIAGNOSTIC DATA: Laboratory values, white count is up to 24.5, hemoglobin 9.4, and platelet count of 215,000. Sodium is 154, potassium 4.2, chloride 121, bicarb of 15, BUN of 98, creatinine of 4.9, and glucose of 201. Calcium is 8.5, magnesium 1.6, and phosphorus of 3.1. Troponin on 02/05/2019 was 0.03. Subsequently, on the 02/08/2019 was 2.7 and this morning is 5.86. ProBNP is 24,000 to 35,000, albumin of 3.2, coags of 1, INR of 1, and PTT of 22. Her electrocardiogram that is available for review is from 02/05/2019 with some 04:28 conduction delay and T-wave inversions in II, III, AVF as well as V4, V5, and V6. When compared with 01/03/2019 EKG, the inferior waves and lateral wave T-wave abnormalities are new. There are also some Q-waves in lead III that is also new. I have attempted 04:57 reviewing older EKGs for comparison. Telemetry data shows sinus tachycardia with premature ventricular complexes. Venous duplex of the lower extremities have shown no evidence of deep venous thrombosis and her last echocardiogram that was performed here was in June of 2018 and at that time, she had normal left ventricular systolic function and her most recent chest x-ray was performed today, interpreted worsening bilateral airspace opacities 05:44 consolidation in the right upper lobe and right pleural effusion possibility. ASSESSMENT AND PLAN: 1. Ibz-EO-jmnzfnhgs myocardial infarction, sinus tachycardia. The patient has had a complicated xib-MT-emhgfyekp myocardial infarction. 2. Recent gastrointestinal bleeding, possibly at the site of polypectomy, status post epinephrine injection and hemoclip placement. 3. History of vomiting and possible aspiration. 4. Pneumonia. 5. Diabetes mellitus. 6. Tachycardia. 7. Anemia. 8. Leukocytosis, likely secondary to pneumonia. 9. End-stage renal disease, on hemodialysis. Dr. Cerna, this patient was seen in cardiac consultation. The patient's data was reviewed. It looks like the patient had a hemoglobin 6.2 on the 02/06/2019. Massive bleeding apparently was noted during an endoscopy with loss of blood and blood clots and the patient did vomit during that episode. It is possible that she may be actually having the aspiration pneumonitis as a cause of her present tachycardia. Nevertheless, her EKG is different than she had on prior occasions. Her echocardiogram will need to be repeated. EKG will be repeated. Cardiac enzymes will be followed. We will need GI's input as to the safety of administering antiplatelet agents. At this time, she does not appear to be having any symptoms of coronary syndrome to the point that I am able to obtain from the patient's history. The patient will be followed clinically. GI input as far as safety administering antiplatelet agents. It is, however, likely that this may be a secondary myocardial infarction in the setting of severe anemia with hemoglobin down to 6.2, it is not a type 1 ghw-CD-gcsbwtwmu myocardial infarction nevertheless. Antiplatelet agents can be safely administered and statins will also be administered in the setting of acute SD. Kaushik Franco M.D. DR: JANNIE JOB#: [id number] CC:
--- NOTE | 2019-02-10 02:40 | NUR ---
NURSE NOTES: PATIENT ASLEEP STATUS.
--- NOTE | 2019-02-10 04:20 | NUR ---
NURSE NOTES: MORNING CARE WAS DONE.
[2019-02-10] MEDS: Piperacillin/Tazobactam 2.25 GM in D5W 55 ML IVPB SCH ×3 (05:53→21:43)
[2019-02-10 06:03] LABS: HEMATOCRIT 27.7 % (37.0-47.0); MEAN CORPUSCULAR VOLUME 91 FL (80-99); PLATELET COUNT 226 K/UL (150-450); RED BLOOD COUNT 3.06 M/UL (4.20-5.40); RED CELL DISTRIBUTION WIDTH 15.3 % (11.6-14.8); WHITE BLOOD COUNT 20.6 K/UL (4.8-10.8)
--- NOTE | 2019-02-10 06:23 | NUR ---
NURSE NOTES: CALLED [facility] REGARDING DIALYSIS TODAY THAT EXCHANGER WAS AWARE.
[2019-02-10 06:49] LABS: PHOSPHORUS 3.2 MG/DL (2.5-4.9)
--- NOTE | 2019-02-10 07:09 | NUR ---
RESPIRATORY NOTE: Patient received on BiPAP with current ordered settings and tolerating well at this time. Facial mask was taken off to relieve facial pressure. Administered oral care without incident, cleaned and re-tapped face and rotated to full face mask. There was no redness or skin breakdown noted. Alarms are audible and functional. There is an ambu bag available at the bedside and the BiPAP is connected to a red outlet. Will continue to monitor.
--- NOTE | 2019-02-10 07:10 | NUR ---
HAND-OFF: Report given to MAYO MCKEON.
--- NOTE | 2019-02-10 08:00 | NUR ---
NURSE NOTES: Received patient asleep, opens eyes to names. firer automatic stoker showing SR> Patient on BIpap 12/5 Fio2 45% saturating 100% no distress noted. R nare NGT connected to low intermittent suction. Hemodialysis order in for today - confirmed with Rene the dialysis nurse. Yanez intact draining. No skin issues. L upper arm av shunt, R forearm 20. D5w at 50 cc/hr. No distress noted at this time Patient stable VSS. Restraints intact. active range of motion present. No swelling / discoloration related to restraints. Turned and repositioned. Will continue plan of care.
[2019-02-10 08:11] LABS: ALANINE AMINOTRANSFERASE 45 U/L (12-78); ALBUMIN 2.1 G/DL (3.4-5.0); ALBUMIN/GLOBULIN RATIO 0.6 (1.0-2.7); ALKALINE PHOSPHATASE 93 U/L (46-116); ANION GAP 18 mmol/L (5-15); ASPARTATE AMINO TRANSFERASE 25 U/L (15-37); BILIRUBIN,TOTAL 0.4 MG/DL (0.2-1.0); BLOOD UREA NITROGEN 104 mg/dL (7-18); CALCIUM 8.4 MG/DL (8.5-10.1); CARBON DIOXIDE 14 MMOL/L (21-32); CHLORIDE 119 MMOL/L (98-107); CREATININE 5.3 MG/DL (0.55-1.30); POTASSIUM 4.4 MMOL/L (3.5-5.1); SODIUM 151 MMOL/L (136-145)
[2019-02-10] MEDS: Pantoprazole Inj IVP SCH ×2 (08:28→20:57)
[2019-02-10] MEDS: Aspirin Baby 81mg NG SCH (08:29)
--- NOTE | 2019-02-10 10:00 | NUR ---
NURSE NOTES: Patient turned and repositioned. No new orders at this time. VSS. Will continue to monitor patient.
--- NOTE | 2019-02-10 10:02 | Pulmonolgy Critical Care Note ---
Critical Care - Asmt/Plan Problems: (1) Respiratory failure, acute (2) Aspiration pneumonia (3) Acute encephalopathy (4) Hemorrhagic shock (5) Upper GI bleeding (6) ESRF (end stage renal failure) (7) Diabetes mellitus (8) S/P AKA (above knee amputation) unilateral Respiratory: monitor respiratory rate, adjust FIO2, CXR Cardiac: continue to monitor HR/BP Renal: F/U I&O, keep IV fluid Infectious Disease: check cultures, continue antibiotics Gastrointestinal: continue feedings/current rate Endocrine: monitor blood sugar Hematologic: monitor H/H, transfuse if hgb<8.5 Neurologic: PRN Ativan, keep patient comfortable Affect: PRN ativan Prophylaxis: Heparin Time Spent (Minutes): 40 Notes 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, 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, 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, consultants, 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 - Objective Last 24 Hour Vital Signs Date Time Temp Pulse Resp B/P (MAP) Pulse Ox O2 Delivery O2 Flow Rate FiO2 02/10/19 09:00 84 22 115/77 (90) 100 02/10/19 08:42 91 22 100 Full Face 45 02/10/19 08:00 89 02/10/19 08:00 45 02/10/19 08:00 Bi-pap Bi-pap 02/10/19 08:00 98.8 91 22 122/78 (93) 100 02/10/19 07:29 100 Bi-pap 45 02/10/19 07:29 Bi-pap 02/10/19 07:06 89 28 100 Full Face 45 02/10/19 07:00 90 22 118/75 (89) 100 02/10/19 06:00 92 25 112/71 (85) 100 02/10/19 05:54 98/52 02/10/19 05:53 84 98/52 02/10/19 05:00 92 24 98/52 (67) 99 02/10/19 04:39 86 26 100 Facial 45 02/10/19 04:00 98.6 92 22 117/61 (79) 100 02/10/19 04:00 Bi-pap Bi-pap 02/10/19 04:00 92 02/10/19 04:00 45 02/10/19 03:09 94 23 100 Facial 45 02/10/19 03:00 92 22 113/58 (76) 100 02/10/19 02:00 92 25 116/57 (76) 100 02/10/19 01:25 93 26 100 Facial 45 02/10/19 01:00 93 23 110/57 (74) 100 02/10/19 00:08 94 110/57 02/10/19 00:08 110/54 02/10/19 00:00 94 02/10/19 00:00 97.8 94 23 110/54 (72) 100 02/10/19 00:00 Bi-pap Bi-pap 02/10/19 00:00 45 02/09/19 23:00 94 24 112/54 (73) 100 02/09/19 22:49 Bi-pap 45 02/09/19 22:49 100 24 93 Facial 45 02/09/19 22:49 100 Bi-pap 45 02/09/19 22:00 95 23 116/59 (78) 100 02/09/19 21:15 100 24 98 Facial 45 02/09/19 21:00 97 24 108/55 (72) 99 02/09/19 20:00 98.2 95 26 108/62 (77) 100 02/09/19 20:00 Bi-pap Bi-pap 02/09/19 20:00 95 02/09/19 20:00 45 02/09/19 19:06 100 26 99 Facial 45 02/09/19 19:00 97 22 116/64 (81) 100 02/09/19 18:00 100 21 105/57 (73) 99 02/09/19 17:12 97 22 99 Facial 45 02/09/19 17:00 99 24 112/78 (89) 100 02/09/19 16:00 98 02/09/19 16:00 55 02/09/19 16:00 Bi-pap Bi-pap 02/09/19 16:00 98.6 98 24 101/56 (71) 100 02/09/19 15:00 97 26 101/56 (71) 100 02/09/19 14:58 93 23 100 Facial 45 02/09/19 14:00 97 26 119/64 (82) 100 02/09/19 13:13 107 111/60 02/09/19 13:11 103 24 100 Facial 55 02/09/19 13:00 106 26 106/63 (77) 100 02/09/19 12:00 Bi-pap Bi-pap 02/09/19 12:00 111/60 02/09/19 12:00 106 02/09/19 12:00 99.3 108 26 111/60 (77) 100 02/09/19 11:08 109 25 100 Facial 55 02/09/19 11:00 55 02/09/19 11:00 110 26 115/61 (79) 100 02/09/19 10:30 118/61 Status: awake Condition: critical, improving HEENT: atraumatic Lungs: rales, rhonchi Heart: HR/BP stable Abdomen: soft, feeding tube Extremities: edema Decubiti: location Critical Care - Subjective ROS Limited/Unobtainable: Yes Condition: critical EKG Rhythm: Sinus Rhythm FI02: 45 Vent Support Breath Rate: 16 Vent Support Mode: BiLevel Vent Tidal Volume: 550 Sputum Amount: None PEEP: 5.0 PIP: 14 I&O: Intake and Output 02/09/19 02/10/19 19:00 07:00 Intake Total 862.5 ml 712.5 ml Output Total 160 ml 250 ml Balance 702.5 ml 462.5 ml IV Total 862.5 ml 712.5 ml Output Urine Total 160 ml 250 ml CXR: extensive bilateral pneumonia ET-Tube: 8.0 ET Position: 24 Labs: Laboratory Tests Test 02/10/19 05:20 White Blood Count 20.6 K/UL (4.8-10.8) H Red Blood Count 3.06 M/UL (4.20-5.40) L Hemoglobin 9.0 G/DL (12.0-16.0) L Hematocrit 27.7 % (37.0-47.0) L Mean Corpuscular Volume 91 FL (80-99) Mean Corpuscular Hemoglobin 29.5 PG (27.0-31.0) Mean Corpuscular Hemoglobin Concent 32.6 G/DL (32.0-36.0) Red Cell Distribution Width 15.3 % (11.6-14.8) H Platelet Count 226 K/UL (150-450) Mean Platelet Volume 10.0 FL (6.5-10.1) Neutrophils (%) (Auto) % (45.0-75.0) Lymphocytes (%) (Auto) % (20.0-45.0) Monocytes (%) (Auto) % (1.0-10.0) Eosinophils (%) (Auto) % (0.0-3.0) Basophils (%) (Auto) % (0.0-2.0) Differential Total Cells Counted 100 Neutrophils % (Manual) 92 % (45-75) H Lymphocytes % (Manual) 7 % (20-45) L Monocytes % (Manual) 1 % (1-10) Eosinophils % (Manual) 0 % (0-3) Basophils % (Manual) 0 % (0-2) Band Neutrophils 0 % (0-8) Platelet Estimate Adequate Platelet Morphology Normal Anisocytosis 1+ Sodium Level 151 MMOL/L (136-145) H Potassium Level 4.4 MMOL/L (3.5-5.1) Chloride Level 119 MMOL/L (98-107) H Carbon Dioxide Level 14 MMOL/L (21-32) L Anion Gap 18 mmol/L (5-15) H Blood Urea Nitrogen 104 mg/dL (7-18) H Creatinine 5.3 MG/DL (0.55-1.30) H Estimat Glomerular Filtration Rate 9.8 mL/min (>60) Glucose Level 220 MG/DL (74-106) H Calcium Level 8.4 MG/DL (8.5-10.1) L Phosphorus Level 3.2 MG/DL (2.5-4.9) Magnesium Level 2.1 MG/DL (1.8-2.4) Total Bilirubin 0.4 MG/DL (0.2-1.0) Aspartate Amino Transf (AST/SGOT) 25 U/L (15-37) Alanine Aminotransferase (ALT/SGPT) 45 U/L (12-78) Alkaline Phosphatase 93 U/L (46-116) Troponin I 4.270 ng/mL (0.000-0.056) C-Reactive Protein, Quantitative 23.9 mg/dL (0.00-0.90) H Pro-B-Type Natriuretic Peptide > 39978 pg/mL (0-125) H Total Protein 5.6 G/DL (6.4-8.2) L Albumin 2.1 G/DL (3.4-5.0) L Globulin 3.5 g/dL Albumin/Globulin Ratio 0.6 (1.0-2.7) L Lit Cerna MD Feb 10, 2019 10:02
[2019-02-10] MEDS: DOPamine 400mg/250ml 250 ML IV SCH (10:24)
--- NOTE | 2019-02-10 10:46 | NUR ---
RADIOLOGY DEPT., CHEST X-RAY DONE.-P.DYE
--- NOTE | 2019-02-10 10:53 | Nephrology Progress Note ---
Assessment/Plan Problem List: (1) Upper GI bleeding (2) Hemorrhagic shock (3) ESRF (end stage renal failure) (4) NSTEMI (non-ST elevated myocardial infarction) (5) Respiratory failure, acute (6) Lung mass Assessment admitted with massive GI bleed and hypotension ESRD : M W Fr h/o UTI now , on vent, respitatory failure Other medical conditions; Type 2 diabetes. Hypertension. h/o Anemia of chronic renal disease Hypercholesterolemia. Peripheral vascular disease. Alzheimer's dementia. ?? LUNG Pathology PAST SURGICAL HISTORY: 1. Right iupel-qap-obku amputation. 2. Open reduction internal fixation Plan Plan: on BIPAP change protonix drip to IV q12h IV fluid to D5 HD today monitor H&h monitor troponin I monitor lytes and renal parameters antibiotics for uti start NTG Paste Subjective ROS Limited/Unobtainable: Yes Objective Objective Last 24 Hour Vital Signs Date Time Temp Pulse Resp B/P (MAP) Pulse Ox O2 Delivery O2 Flow Rate FiO2 02/10/19 10:24 125/77 02/10/19 09:00 84 22 115/77 (90) 100 02/10/19 08:42 91 22 100 Full Face 45 02/10/19 08:00 89 02/10/19 08:00 45 02/10/19 08:00 Bi-pap Bi-pap 02/10/19 08:00 98.8 91 22 122/78 (93) 100 02/10/19 07:29 100 Bi-pap 45 02/10/19 07:29 Bi-pap 02/10/19 07:06 89 28 100 Full Face 45 02/10/19 07:00 90 22 118/75 (89) 100 02/10/19 06:00 92 25 112/71 (85) 100 02/10/19 05:54 98/52 02/10/19 05:53 84 98/52 02/10/19 05:00 92 24 98/52 (67) 99 02/10/19 04:39 86 26 100 Facial 45 02/10/19 04:00 98.6 92 22 117/61 (79) 100 02/10/19 04:00 Bi-pap Bi-pap 02/10/19 04:00 92 02/10/19 04:00 45 02/10/19 03:09 94 23 100 Facial 45 3/25/19 03:00 92 22 113/58 (76) 100 02/10/19 02:00 92 25 116/57 (76) 100 02/10/19 01:25 93 26 100 Facial 45 02/10/19 01:00 93 23 110/57 (74) 100 02/10/19 00:08 94 110/57 02/10/19 00:08 110/54 02/10/19 00:00 94 02/10/19 00:00 97.8 94 23 110/54 (72) 100 02/10/19 00:00 Bi-pap Bi-pap 02/10/19 00:00 45 02/09/19 23:00 94 24 112/54 (73) 100 02/09/19 22:49 Bi-pap 45 02/09/19 22:49 100 24 93 Facial 45 02/09/19 22:49 100 Bi-pap 45 02/09/19 22:00 95 23 116/59 (78) 100 02/09/19 21:15 100 24 98 Facial 45 02/09/19 21:00 97 24 108/55 (72) 99 02/09/19 20:00 98.2 95 26 108/62 (77) 100 02/09/19 20:00 Bi-pap Bi-pap 02/09/19 20:00 95 02/09/19 20:00 45 02/09/19 19:06 100 26 99 Facial 45 02/09/19 19:00 97 22 116/64 (81) 100 02/09/19 18:00 100 21 105/57 (73) 99 02/09/19 17:12 97 22 99 Facial 45 02/09/19 17:00 99 24 112/78 (89) 100 02/09/19 16:00 98 02/09/19 16:00 55 02/09/19 16:00 Bi-pap Bi-pap 02/09/19 16:00 98.6 98 24 101/56 (71) 100 02/09/19 15:00 97 26 101/56 (71) 100 02/09/19 14:58 93 23 100 Facial 45 02/09/19 14:00 97 26 119/64 (82) 100 02/09/19 13:13 107 111/60 02/09/19 13:11 103 24 100 Facial 55 02/09/19 13:00 106 26 106/63 (77) 100 02/09/19 12:00 Bi-pap Bi-pap 02/09/19 12:00 111/60 02/09/19 12:00 106 02/09/19 12:00 99.3 108 26 111/60 (77) 100 02/09/19 11:08 109 25 100 Facial 55 02/09/19 11:00 55 02/09/19 11:00 110 26 115/61 (79) 100 Intake and Output 02/09/19 02/10/19 19:00 07:00 Intake Total 862.5 ml 712.5 ml Output Total 160 ml 250 ml Balance 702.5 ml 462.5 ml IV Total 862.5 ml 712.5 ml Output Urine Total 160 ml 250 ml Laboratory Tests 02/10/19 05:20: White Blood Count 20.6H, Red Blood Count 3.06L, Hemoglobin 9.0L, Hematocrit 27.7L, Mean Corpuscular Volume 91, Mean Corpuscular Hemoglobin 29.5, Mean Corpuscular Hemoglobin Concent 32.6, Red Cell Distribution Width 15.3H, Platelet Count 226, Mean Platelet Volume 10.0, Neutrophils (%) (Auto) , Lymphocytes (%) (Auto) , Monocytes (%) (Auto) , Eosinophils (%) (Auto) , Basophils (%) (Auto) , Differential Total Cells Counted 100, Neutrophils % ( Manual) 92H, Lymphocytes % (Manual) 7L, Monocytes % (Manual) 1, Eosinophils % ( Manual) 0, Basophils % (Manual) 0, Band Neutrophils 0, Platelet Estimate Adequate, Platelet Morphology Normal, Anisocytosis 1+, Sodium Level 151H, Potassium Level 4.4, Chloride Level 119H, Carbon Dioxide Level 14L, Anion Gap 18H, Blood Urea Nitrogen 104H, Creatinine 5.3H, Estimat Glomerular Filtration Rate 9.8, Glucose Level 220H, Calcium Level 8.4L, Phosphorus Level 3.2, Magnesium Level 2.1, Total Bilirubin 0.4, Aspartate Amino Transf (AST/SGOT) 25, Alanine Aminotransferase (ALT/SGPT) 45, Alkaline Phosphatase 93, Troponin I 4.270H, C-Reactive Protein, Quantitative 23.9H, Pro-B-Type Natriuretic Peptide > 03250B, Total Protein 5.6L, Albumin 2.1L, Globulin 3.5, Albumin/Globulin Ratio 0.6L Height (Feet): 5 Height (Inches): 6.00 Weight (Pounds): 169 EENT: other - on BIPAP Cardiovascular: normal rate Respiratory/Chest: decreased breath sounds Abdomen: soft Marques Motta MD Feb 10, 2019 10:53
--- NOTE | 2019-02-10 11:24 | NUR ---
RD ASSESSMENT & RECOMMENDATIONS SEE CARE ACTIVITY FOR COMPLETE ASSESSMENT DAILY ESTIMATED NEEDS: Needs based on ESRD W/ HD/ 65.8kg 28-30 kcals/kg 6306-5294 total kcals 1.25-1.8 g protein/kg 82-118 g total protein Fluid per MD, on HD NUTRITION DIAGNOSIS: (1) Increased kcal/pro needs R/T renal dysfunction as evidenced by pt w/ ESRD dx, on HD, s/p extubation now on bipap, NPO at this time. PO DIET RECOMMENDATIONS: When medically appropriate -> RENAL, CCHO MED/ texture per [employer] ADDITIONAL RECOMMENDATIONS: * Obtain dry weight (after dialysis) on CALIBRATED bedscale * SU[employer] eval for appropriate texture, h/o CVA w/ dysphagia * Rec accucheck w/ SSI - h/o DM, BGs in the 200's -> consider hypoglycemic agents for BG control .
--- NOTE | 2019-02-10 11:55 | NUR ---
NURSE NOTES: Patient currently being dialilzed. Blood pressure and HR are within normal limits. Nitro patch and Lopressor non administered due to BP drop during dialysis. Will continue to monitor patient. Pharmacy notified.
--- NOTE | 2019-02-10 12:36 | GI Progress Note ---
Assessment/Plan Problems: (1) Upper GI bleeding ICD Codes: K92.2 - Gastrointestinal hemorrhage, unspecified SNOMED: 70039667 (2) Hemorrhagic shock ICD Codes: R57.8 - Hemorrhagic shock SNOMED: 391623 (3) Anemia ICD Codes: D64.9 - Anemia, unspecified SNOMED: 826672591 Status: unchanged Status Narrative Discussed with Dr. Herrera Assessment/Plan s/p EGD and hemostasis stable H&H Begin ASA daily today NGT feeds when OK with pulmonary, currently on intermittent suction with bloody output Protonix twice daily monitor H&H, prn transfusion follow labs The patient was seen and examined at bedside and all new and available data was reviewed in the patients chart. I agree with the above findings, impression and plan. (Patient seen earlier today. Signature stamp does not reflect patient encounter time.). - Fabrizio Herrera MD Subjective Subjective Limited Objective Last 24 Hour Vital Signs Date Time Temp Pulse Resp B/P (MAP) Pulse Ox O2 Delivery O2 Flow Rate FiO2 02/10/19 12:00 98.7 88 20 115/67 (83) 100 02/10/19 12:00 Bi-pap Bi-pap 02/10/19 12:00 88 02/10/19 12:00 45 02/10/19 11:54 115/67 02/10/19 11:49 89 115/67 02/10/19 11:00 84 20 120/72 (88) 100 02/10/19 10:39 92 21 100 Full Face 45 02/10/19 10:24 125/77 02/10/19 10:00 88 20 128/78 (95) 100 02/10/19 09:00 84 22 115/77 (90) 100 02/10/19 08:42 91 22 100 Full Face 45 02/10/19 08:00 89 02/10/19 08:00 45 02/10/19 08:00 Bi-pap Bi-pap 02/10/19 08:00 98.8 91 22 122/78 (93) 100 02/10/19 07:29 100 Bi-pap 45 02/10/19 07:29 Bi-pap 02/10/19 07:06 89 28 100 Full Face 45 02/10/19 07:00 90 22 118/75 (89) 100 02/10/19 06:00 92 25 112/71 (85) 100 02/10/19 05:54 98/52 02/10/19 05:53 84 98/52 02/10/19 05:00 92 24 98/52 (67) 99 02/10/19 04:39 86 26 100 Facial 45 02/10/19 04:00 98.6 92 22 117/61 (79) 100 02/10/19 04:00 Bi-pap Bi-pap 02/10/19 04:00 92 02/10/19 04:00 45 02/10/19 03:09 94 23 100 Facial 45 02/10/19 03:00 92 22 113/58 (76) 100 02/10/19 02:00 92 25 116/57 (76) 100 02/10/19 01:25 93 26 100 Facial 45 02/10/19 01:00 93 23 110/57 (74) 100 02/10/19 00:08 94 110/57 02/10/19 00:08 110/54 02/10/19 00:00 94 02/10/19 00:00 97.8 94 23 110/54 (72) 100 02/10/19 00:00 Bi-pap Bi-pap 02/10/19 00:00 45 02/09/19 23:00 94 24 112/54 (73) 100 02/09/19 22:49 Bi-pap 45 02/09/19 22:49 100 24 93 Facial 45 02/09/19 22:49 100 Bi-pap 45 02/09/19 22:00 95 23 116/59 (78) 100 02/09/19 21:15 100 24 98 Facial 45 02/09/19 21:00 97 24 108/55 (72) 99 02/09/19 20:00 98.2 95 26 108/62 (77) 100 02/09/19 20:00 Bi-pap Bi-pap 02/09/19 20:00 95 02/09/19 20:00 45 02/09/19 19:06 100 26 99 Facial 45 02/09/19 19:00 97 22 116/64 (81) 100 02/09/19 18:00 100 21 105/57 (73) 99 02/09/19 17:12 97 22 99 Facial 45 02/09/19 17:00 99 24 112/78 (89) 100 02/09/19 16:00 98 3/24/19 16:00 55 02/09/19 16:00 Bi-pap Bi-pap 02/09/19 16:00 98.6 98 24 101/56 (71) 100 02/09/19 15:00 97 26 101/56 (71) 100 02/09/19 14:58 93 23 100 Facial 45 02/09/19 14:00 97 26 119/64 (82) 100 02/09/19 13:13 107 111/60 02/09/19 13:11 103 24 100 Facial 55 02/09/19 13:00 106 26 106/63 (77) 100 Intake and Output 02/09/19 02/10/19 19:00 07:00 Intake Total 862.5 ml 712.5 ml Output Total 160 ml 250 ml Balance 702.5 ml 462.5 ml IV Total 862.5 ml 712.5 ml Output Urine Total 160 ml 250 ml Laboratory Tests Test 02/10/19 05:20 White Blood Count 20.6 K/UL (4.8-10.8) H Red Blood Count 3.06 M/UL (4.20-5.40) L Hemoglobin 9.0 G/DL (12.0-16.0) L Hematocrit 27.7 % (37.0-47.0) L Mean Corpuscular Volume 91 FL (80-99) Mean Corpuscular Hemoglobin 29.5 PG (27.0-31.0) Mean Corpuscular Hemoglobin Concent 32.6 G/DL (32.0-36.0) Red Cell Distribution Width 15.3 % (11.6-14.8) H Platelet Count 226 K/UL (150-450) Mean Platelet Volume 10.0 FL (6.5-10.1) Neutrophils (%) (Auto) % (45.0-75.0) Lymphocytes (%) (Auto) % (20.0-45.0) Monocytes (%) (Auto) % (1.0-10.0) Eosinophils (%) (Auto) % (0.0-3.0) Basophils (%) (Auto) % (0.0-2.0) Differential Total Cells Counted 100 Neutrophils % (Manual) 92 % (45-75) H Lymphocytes % (Manual) 7 % (20-45) L Monocytes % (Manual) 1 % (1-10) Eosinophils % (Manual) 0 % (0-3) Basophils % (Manual) 0 % (0-2) Band Neutrophils 0 % (0-8) Platelet Estimate Adequate Platelet Morphology Normal Anisocytosis 1+ Sodium Level 151 MMOL/L (136-145) H Potassium Level 4.4 MMOL/L (3.5-5.1) Chloride Level 119 MMOL/L (98-107) H Carbon Dioxide Level 14 MMOL/L (21-32) L Anion Gap 18 mmol/L (5-15) H Blood Urea Nitrogen 104 mg/dL (7-18) H Creatinine 5.3 MG/DL (0.55-1.30) H Estimat Glomerular Filtration Rate 9.8 mL/min (>60) Glucose Level 220 MG/DL (74-106) H Calcium Level 8.4 MG/DL (8.5-10.1) L Phosphorus Level 3.2 MG/DL (2.5-4.9) Magnesium Level 2.1 MG/DL (1.8-2.4) Total Bilirubin 0.4 MG/DL (0.2-1.0) Aspartate Amino Transf (AST/SGOT) 25 U/L (15-37) Alanine Aminotransferase (ALT/SGPT) 45 U/L (12-78) Alkaline Phosphatase 93 U/L (46-116) Troponin I 4.270 ng/mL (0.000-0.056) C-Reactive Protein, Quantitative 23.9 mg/dL (0.00-0.90) H Pro-B-Type Natriuretic Peptide > 58754 pg/mL (0-125) H Total Protein 5.6 G/DL (6.4-8.2) L Albumin 2.1 G/DL (3.4-5.0) L Globulin 3.5 g/dL Albumin/Globulin Ratio 0.6 (1.0-2.7) L Height (Feet): 5 Height (Inches): 6.00 Weight (Pounds): 169 General Appearance: no apparent distress Cardiovascular: normal rate Respiratory/Chest: normal breath sounds, no respiratory distress Abdominal Exam: normal bowel sounds, non tender, soft Extremities: non-tender Rachel Simpson INFORMATION TECHNOLOGY ASSISTANT Feb 10, 2019 12:36
--- NOTE | 2019-02-10 14:00 | NUR ---
NURSE NOTES: Patient turned and repositioned. No new orders at this time. Will continue plan of care. Tolerated dialysis well. 2 L output - per dialysis order.
--- NOTE | 2019-02-10 14:00 | Consultation ---
History of Present Illness General Date patient seen: Feb 10, 2019 Chief Complaint: Gastrointestinal Bleed Present Illness HPI 68 y/o F with hx of ESBL UTI, ESRD on HD, GERD, Dm2, CVA w/ R side weakness, HTN , HLD, PVD s/p AKA, Alzheimer dementia, lung mass, multiple gastric polyps s/p polypectomy, gastric antral vascular ectasis, DVT, [facility] resident presents to ED on 02/06 with AMS and lower GI bleeding and coffee ground emesis..in the ED, was found patient had massive GI bleeding instead. Patient was hypotensiveadmitted to ICU. Patient underwent EGD on 02/06 which showed stomach full of blood and blood clots. Procedure was stopped because patient vomited a massive amount of blood and required intubation. IT was thought bleeding was from prior polypectomy site. Bleeding controlled with epinephrine injection and hemoclip placement. Denied CP, SOB, dizziness, f/c, n/v, cough upon admission Allergies: Coded Allergies: No Known Allergies (Unverified , 09/15/16) Medication History Scheduled Aspirin* (Aspirin*), 81 MG ORAL DAILY, (Reported) Atorvastatin Calcium* (Atorvastatin Calcium*), 20 MG ORAL BEDTIME, (Reported) Hydralazine Hcl* (Hydralazine Hcl*), 25 MG ORAL EVERY 8 HOURS, (Reported) Insulin Glargine (Lantus), 20 SUBQ BEDTIME, (Reported) Lorazepam* (Lorazepam*), 2 MG ORAL DAILY, (Reported) Metoclopramide Hcl* (Metoclopramide Hcl*), 5 MG ORAL EVERY 6 HOURS, (Reported) Quetiapine Fumarate* (Seroquel*), 12.5 MG ORAL BID, (Reported) Sucralfate* (Carafate*), 1 GM ORAL BEDTIME, (Reported) [Nephro Aid], 1 TAB PO DAILY, (Reported) Scheduled PRN Acetaminophen* (Acetaminophen 325MG Tablet*), 650 MG ORAL Q4HR PRN for Mild Pain (Pain Scale 1-3), (Reported) Temazepam (Temazepam*), 15 MG ORAL HS PRN for Insomnia, (Reported) Miscellaneous Medications Insulin Aspart (Novolog), 100 UNIT SQ, (Reported) Patient History Healthcare decision maker Christiana White Resuscitation status Full Code Advanced Directive on File No Patient History Narrative Pmhx: as above Shx: Apparently, she is legally according to the old records. No alcohol, tobacco, or smoking. She lives in a convalescent facility. Fhx non contributory Review of Systems All Other Systems: negative except mentioned in HPI Physical Exam Physical Exam Narrative GENERAL: Shows to be elderly female, on BiPAP therapy. NECK: Supple. No jugular venous distention. LUNGS: She does show some crackles and rhonchi. CARDIAC: Regular rhythm. Tachycardic. No heaves or thrills. ABDOMEN: Soft and nontender. Positive bowel sounds. EXTREMITIES: Right above-knee amputation Last 24 Hour Vital Signs Date Time Temp Pulse Resp B/P (MAP) Pulse Ox O2 Delivery O2 Flow Rate FiO2 02/10/19 12:00 98.7 88 20 115/67 (83) 100 02/10/19 12:00 Bi-pap Bi-pap 02/10/19 12:00 88 02/10/19 12:00 45 02/10/19 11:54 115/67 02/10/19 11:49 89 115/67 02/10/19 11:00 84 20 120/72 (88) 100 02/10/19 10:39 92 21 100 Full Face 45 02/10/19 10:24 125/77 02/10/19 10:00 88 20 128/78 (95) 100 02/10/19 09:00 84 22 115/77 (90) 100 02/10/19 08:42 91 22 100 Full Face 45 02/10/19 08:00 89 02/10/19 08:00 45 02/10/19 08:00 Bi-pap Bi-pap 02/10/19 08:00 98.8 91 22 122/78 (93) 100 02/10/19 07:29 100 Bi-pap 45 02/10/19 07:29 Bi-pap 02/10/19 07:06 89 28 100 Full Face 45 02/10/19 07:00 90 22 118/75 (89) 100 02/10/19 06:00 92 25 112/71 (85) 100 02/10/19 05:54 98/52 02/10/19 05:53 84 98/52 02/10/19 05:00 92 24 98/52 (67) 99 02/10/19 04:39 86 26 100 Facial 45 02/10/19 04:00 98.6 92 22 117/61 (79) 100 02/10/19 04:00 Bi-pap Bi-pap 02/10/19 04:00 92 02/10/19 04:00 45 02/10/19 03:09 94 23 100 Facial 45 02/10/19 03:00 92 22 113/58 (76) 100 02/10/19 02:00 92 25 116/57 (76) 100 02/10/19 01:25 93 26 100 Facial 45 02/10/19 01:00 93 23 110/57 (74) 100 02/10/19 00:08 94 110/57 02/10/19 00:08 110/54 02/10/19 00:00 94 02/10/19 00:00 97.8 94 23 110/54 (72) 100 02/10/19 00:00 Bi-pap Bi-pap 02/10/19 00:00 45 02/09/19 23:00 94 24 112/54 (73) 100 02/09/19 22:49 Bi-pap 45 02/09/19 22:49 100 24 93 Facial 45 02/09/19 22:49 100 Bi-pap 45 02/09/19 22:00 95 23 116/59 (78) 100 02/09/19 21:15 100 24 98 Facial 45 02/09/19 21:00 97 24 108/55 (72) 99 02/09/19 20:00 98.2 95 26 108/62 (77) 100 02/09/19 20:00 Bi-pap Bi-pap 02/09/19 20:00 95 02/09/19 20:00 45 02/09/19 19:06 100 26 99 Facial 45 02/09/19 19:00 97 22 116/64 (81) 100 02/09/19 18:00 100 21 105/57 (73) 99 02/09/19 17:12 97 22 99 Facial 45 02/09/19 17:00 99 24 112/78 (89) 100 02/09/19 16:00 98 02/09/19 16:00 55 02/09/19 16:00 Bi-pap Bi-pap 02/09/19 16:00 98.6 98 24 101/56 (71) 100 02/09/19 15:00 97 26 101/56 (71) 100 02/09/19 14:58 93 23 100 Facial 45 02/09/19 14:00 97 26 119/64 (82) 100 Intake and Output 02/09/19 02/10/19 19:00 07:00 Intake Total 862.5 ml 712.5 ml Output Total 160 ml 250 ml Balance 702.5 ml 462.5 ml IV Total 862.5 ml 712.5 ml Output Urine Total 160 ml 250 ml Laboratory Tests Test 02/10/19 05:20 White Blood Count 20.6 K/UL (4.8-10.8) H Red Blood Count 3.06 M/UL (4.20-5.40) L Hemoglobin 9.0 G/DL (12.0-16.0) L Hematocrit 27.7 % (37.0-47.0) L Mean Corpuscular Volume 91 FL (80-99) Mean Corpuscular Hemoglobin 29.5 PG (27.0-31.0) Mean Corpuscular Hemoglobin Concent 32.6 G/DL (32.0-36.0) Red Cell Distribution Width 15.3 % (11.6-14.8) H Platelet Count 226 K/UL (150-450) Mean Platelet Volume 10.0 FL (6.5-10.1) Neutrophils (%) (Auto) % (45.0-75.0) Lymphocytes (%) (Auto) % (20.0-45.0) Monocytes (%) (Auto) % (1.0-10.0) Eosinophils (%) (Auto) % (0.0-3.0) Basophils (%) (Auto) % (0.0-2.0) Differential Total Cells Counted 100 Neutrophils % (Manual) 92 % (45-75) H Lymphocytes % (Manual) 7 % (20-45) L Monocytes % (Manual) 1 % (1-10) Eosinophils % (Manual) 0 % (0-3) Basophils % (Manual) 0 % (0-2) Band Neutrophils 0 % (0-8) Platelet Estimate Adequate Platelet Morphology Normal Anisocytosis 1+ Sodium Level 151 MMOL/L (136-145) H Potassium Level 4.4 MMOL/L (3.5-5.1) Chloride Level 119 MMOL/L (98-107) H Carbon Dioxide Level 14 MMOL/L (21-32) L Anion Gap 18 mmol/L (5-15) H Blood Urea Nitrogen 104 mg/dL (7-18) H Creatinine 5.3 MG/DL (0.55-1.30) H Estimat Glomerular Filtration Rate 9.8 mL/min (>60) Glucose Level 220 MG/DL (74-106) H Calcium Level 8.4 MG/DL (8.5-10.1) L Phosphorus Level 3.2 MG/DL (2.5-4.9) Magnesium Level 2.1 MG/DL (1.8-2.4) Total Bilirubin 0.4 MG/DL (0.2-1.0) Aspartate Amino Transf (AST/SGOT) 25 U/L (15-37) Alanine Aminotransferase (ALT/SGPT) 45 U/L (12-78) Alkaline Phosphatase 93 U/L (46-116) Troponin I 4.270 ng/mL (0.000-0.056) C-Reactive Protein, Quantitative 23.9 mg/dL (0.00-0.90) H Pro-B-Type Natriuretic Peptide > 61224 pg/mL (0-125) H Total Protein 5.6 G/DL (6.4-8.2) L Albumin 2.1 G/DL (3.4-5.0) L Globulin 3.5 g/dL Albumin/Globulin Ratio 0.6 (1.0-2.7) L Height (Feet): 5 Height (Inches): 6.00 Weight (Pounds): 169 Medications Current Medications Medications (Trade) Dose Ordered Sig/Althea Route PRN Reason Start Time Stop Time Status Last Admin Dose Admin Acetaminophen (Tylenol) 650 mg Q4H PRN ORAL T>100.5 02/06/19 10:30 03/08/19 10:29 Aspirin (ASA) 81 mg DAILY NG 02/10/19 09:00 03/12/19 08:59 02/10/19 08:29 Dextrose 1,000 ml @ 50 mls/hr Q20H IV 02/08/19 17:30 03/10/19 17:29 02/10/19 08:29 Dextrose (Dextrose 50%) 25 ml Q30M PRN IV Hypoglycemia 02/06/19 10:30 03/08/19 10:29 Dextrose (Dextrose 50%) 50 ml Q30M PRN IV Hypoglycemia 02/06/19 10:30 03/08/19 10:29 Diphenhydramine HCl (Benadryl) 25 mg Q6H PRN ORAL Itching/Pruritis 02/06/19 10:30 03/08/19 10:29 Dopamine HCl/ Dextrose 250 ml @ 0 mls/hr Q24H IV 02/06/19 10:30 03/08/19 10:29 Metoprolol Tartrate 2.5 mg/ Dextrose 57.5 ml @ 130 mls/hr Q6HR IVPB 02/09/19 12:00 03/11/19 11:59 02/10/19 00:08 Morphine Sulfate (Morphine Sulfate) 2 mg Q4H PRN IVP Severe Pain (Pain Scale 7-10) 02/06/19 10:30 02/13/19 10:29 02/07/19 21:51 Nitroglycerin (Nitro-Bid) 2 inch Q6HR TOPIC 02/10/19 12:00 03/10/19 17:59 Nitroglycerin (Ntg) 0.4 mg Q5M X 3 DOSES PRN SL Prn Chest Pain 02/06/19 10:30 03/08/19 10:29 Ondansetron HCl (Zofran) 4 mg Q6H PRN IVP Nausea & Vomiting 02/06/19 10:30 03/08/19 10:29 Pantoprazole (Protonix) 40 mg EVERY 12 HOURS IVP 02/09/19 21:00 03/11/19 20:59 02/10/19 08:28 Piperacillin Sod/ Tazobactam Sod 2.25 gm/Dextrose 55 ml @ 110 mls/hr Q8HR IVPB 02/07/19 20:00 02/14/19 19:59 02/10/19 13:22 Polyethylene Glycol (Miralax) 17 gm HSPRN PRN ORAL Constipation 02/06/19 21:00 03/08/19 20:59 Temazepam (Restoril) 15 mg HSPRN PRN ORAL Insomnia 02/06/19 21:00 02/13/19 20:59 Assessment/Plan Assessment/Plan Abx: Zosyn 02/07- Assessment: Hypotension , SP- 2ry to massive GIB Leukocytosis, improving- in the setting of above and aspiration PNA- r/o Cdiff -CXR: Interval worsening bilateral airspace opacities, more consolidated in the right upper lobe Query small right pleural effusion. Fever, SP Acute respiratory failure s/p intubation 02/06 (for airway protection), s/p extubated 02/07; now no Bipap CONS bacteremia; likely contaminant -02/05 Bcx / CONS hx of ESBL UTI ESRD on HD GERD Dm2 CVA w/ R side weakness HTN HLD PVD s/p AKA Alzheimer dementia lung mass multiple gastric polyps s/p polypectomy gastric antral vascular ectasis DVT NH resident Plan: -Continue empiric Zosyn #4 for now -Bcx x2, SP cx -f.u cx -Monitor CBC/CMP, temperatures -CBC, CMP am -Cdiff if diarrhea Thank you for this consultation. Will continue to follow along with you. Daisy Arce M.D. Feb 10, 2019 13:59
--- NOTE | 2019-02-10 16:00 | NUR ---
NURSE NOTES: Turned and repositioned. Alert and oriented x 2. Denies pain or discomfort. Repositioned. Will continue plan of care.
--- NOTE | 2019-02-10 18:00 | NUR ---
NURSE NOTES: Patient turned and repositioned. No new orders at this time. Denies pain or discomfort will continue to monitor patient.
--- NOTE | 2019-02-10 19:08 | NUR ---
HAND-OFF: Report given to Jase Chin rn using SBAR. VSS. No distress noted..
--- NOTE | 2019-02-10 19:40 | NUR ---
NURSE NOTES: PATIENT LETHARGIC, RESPIRATION REGULAR, DENIED SOB OR DISCOMFORT, ON BIPAP, RATE 16, I/E 12/5, FIO2 70%, O2 SATURATION 100%, ABDOMEN SOFT, DISTENDED, NO N/V, NGT TO RIGHT NARES, NPO STATUS, LOWER INTERMITTENT SUCTION, THIN GREENISH COLOR OUTED, HYPOACTIVE BOWEL SOUND, NO BOWEL MOVEMENT STATUS, F/C INTACT AND PATENT, YELLOW URINE COLOR NOTED, OLIGURIA, AV FISTULA TO LEFT UPPER ARM, PALPABLE THRILL, BRUITS, KEPT LEFT ARM PRECAUTION, RIGHT AKA STATUS, 2 POINT SOFT RESTRAINTS FOR SAFETY, ON SCD TO LEFT LOWER LEG, PERIPHERAL LINE TO RIGHT FOREARM 20G INTACT AND PATENT, AND D5W AT 50ML/HR VIA PERIPHERAL LINE, PROVIDED CALL LIGHT WITHIN REACH, MADE LOWER BED POSITION, WILL CONTINUE TO MONITOR
--- NOTE | 2019-02-10 19:45 | Cardiology Progress Note ---
Assessment/Plan Assessment/Plan 1. Pno-HR-byzzjzbrj myocardial infarction, sinus tachycardia. 2. Recent gastrointestinal bleeding, hemoclip placement. 3. History of vomiting and possible aspiration. 4. Pneumonia. 5. Diabetes mellitus. 6. Tachycardia. 7. Anemia. 8. Leukocytosis, likely secondary to pneumonia. 9. End-stage renal disease, on hemodialysis. 10. Bactermeia contaminant cxr reviewed looks bilat infiltrates mimi sinus echo reviswed lv function not bad bp on the low side blood cx felt to be contaminant per id ekg improved some degree of ivcd resolved t wave back upright trop down trending still require bipap on 50 cc / hr of ivf is on Ecotrin if needed bolus of ivf keep in icu until pul staable abx prognosis gaurded Subjective Cardiovascular: Denies: chest pain, lightheadedness Respiratory: Reports: cough, shortness of breath Gastrointestinal/Abdominal: Denies: abdominal pain Genitourinary: Denies: burning Objective Last 24 Hour Vital Signs Date Time Temp Pulse Resp B/P (MAP) Pulse Ox O2 Delivery O2 Flow Rate FiO2 02/10/19 19:09 Bi-pap 70 02/10/19 19:09 92 22 100 Facial 70 02/10/19 19:09 100 Bi-pap 70 02/10/19 19:00 82 22 99/70 (80) 100 02/10/19 18:00 97/56 02/10/19 18:00 94 97/56 02/10/19 18:00 80 22 97/68 (78) 100 02/10/19 17:00 88 22 108/66 (80) 100 02/10/19 16:32 96 21 100 Facial 70 02/10/19 16:00 98.7 94 25 106/67 (80) 100 02/10/19 16:00 Bi-pap Bi-pap 02/10/19 16:00 94 02/10/19 16:00 70 02/10/19 15:48 70 02/10/19 15:00 85 22 115/64 (81) 100 02/10/19 14:43 96 24 100 Full Face 45 02/10/19 14:00 90 20 117/65 (82) 100 02/10/19 13:00 92 20 122/70 (87) 100 02/10/19 12:53 94 23 100 Full Face 45 3/25/19 12:00 98.7 88 20 115/67 (83) 100 02/10/19 12:00 Bi-pap Bi-pap 02/10/19 12:00 88 02/10/19 12:00 45 02/10/19 11:54 115/67 02/10/19 11:49 89 115/67 02/10/19 11:00 84 20 120/72 (88) 100 02/10/19 10:39 92 21 100 Full Face 45 02/10/19 10:24 125/77 02/10/19 10:00 88 20 128/78 (95) 100 02/10/19 09:00 84 22 115/77 (90) 100 02/10/19 08:42 91 22 100 Full Face 45 02/10/19 08:00 89 02/10/19 08:00 45 02/10/19 08:00 Bi-pap Bi-pap 02/10/19 08:00 98.8 91 22 122/78 (93) 100 02/10/19 07:29 100 Bi-pap 45 02/10/19 07:29 Bi-pap 02/10/19 07:06 89 28 100 Full Face 45 02/10/19 07:00 90 22 118/75 (89) 100 02/10/19 06:00 92 25 112/71 (85) 100 02/10/19 05:54 98/52 02/10/19 05:53 84 98/52 02/10/19 05:00 92 24 98/52 (67) 99 02/10/19 04:39 86 26 100 Facial 45 02/10/19 04:00 98.6 92 22 117/61 (79) 100 02/10/19 04:00 Bi-pap Bi-pap 02/10/19 04:00 92 02/10/19 04:00 45 02/10/19 03:09 94 23 100 Facial 45 02/10/19 03:00 92 22 113/58 (76) 100 02/10/19 02:00 92 25 116/57 (76) 100 02/10/19 01:25 93 26 100 Facial 45 02/10/19 01:00 93 23 110/57 (74) 100 02/10/19 00:08 94 110/57 02/10/19 00:08 110/54 02/10/19 00:00 94 02/10/19 00:00 97.8 94 23 110/54 (72) 100 02/10/19 00:00 Bi-pap Bi-pap 02/10/19 00:00 45 02/09/19 23:00 94 24 112/54 (73) 100 02/09/19 22:49 Bi-pap 45 02/09/19 22:49 100 24 93 Facial 45 02/09/19 22:49 100 Bi-pap 45 02/09/19 22:00 95 23 116/59 (78) 100 02/09/19 21:15 100 24 98 Facial 45 02/09/19 21:00 97 24 108/55 (72) 99 02/09/19 20:00 98.2 95 26 108/62 (77) 100 02/09/19 20:00 Bi-pap Bi-pap 02/09/19 20:00 95 02/09/19 20:00 45 General Appearance: no apparent distress, alert, patient on isolation, other - on bipap Neck: supple Cardiovascular: normal rate Respiratory/Chest: rhonchi - bilaterally Abdomen: normal bowel sounds, non tender, soft Extremities: no swelling Intake and Output 02/09/19 02/10/19 19:00 07:00 Intake Total 862.5 ml 712.5 ml Output Total 160 ml 250 ml Balance 702.5 ml 462.5 ml IV Total 862.5 ml 712.5 ml Output Urine Total 160 ml 250 ml Laboratory Tests Test 02/10/19 05:20 02/10/19 15:37 White Blood Count 20.6 K/UL (4.8-10.8) H Red Blood Count 3.06 M/UL (4.20-5.40) L Hemoglobin 9.0 G/DL (12.0-16.0) L Hematocrit 27.7 % (37.0-47.0) L Mean Corpuscular Volume 91 FL (80-99) Mean Corpuscular Hemoglobin 29.5 PG (27.0-31.0) Mean Corpuscular Hemoglobin Concent 32.6 G/DL (32.0-36.0) Red Cell Distribution Width 15.3 % (11.6-14.8) H Platelet Count 226 K/UL (150-450) Mean Platelet Volume 10.0 FL (6.5-10.1) Neutrophils (%) (Auto) % (45.0-75.0) Lymphocytes (%) (Auto) % (20.0-45.0) Monocytes (%) (Auto) % (1.0-10.0) Eosinophils (%) (Auto) % (0.0-3.0) Basophils (%) (Auto) % (0.0-2.0) Differential Total Cells Counted 100 Neutrophils % (Manual) 92 % (45-75) H Lymphocytes % (Manual) 7 % (20-45) L Monocytes % (Manual) 1 % (1-10) Eosinophils % (Manual) 0 % (0-3) Basophils % (Manual) 0 % (0-2) Band Neutrophils 0 % (0-8) Platelet Estimate Adequate Platelet Morphology Normal Anisocytosis 1+ Sodium Level 151 MMOL/L (136-145) H Potassium Level 4.4 MMOL/L (3.5-5.1) Chloride Level 119 MMOL/L (98-107) H Carbon Dioxide Level 14 MMOL/L (21-32) L Anion Gap 18 mmol/L (5-15) H Blood Urea Nitrogen 104 mg/dL (7-18) H Creatinine 5.3 MG/DL (0.55-1.30) H Estimat Glomerular Filtration Rate 9.8 mL/min (>60) Glucose Level 220 MG/DL (74-106) H Calcium Level 8.4 MG/DL (8.5-10.1) L Phosphorus Level 3.2 MG/DL (2.5-4.9) Magnesium Level 2.1 MG/DL (1.8-2.4) Total Bilirubin 0.4 MG/DL (0.2-1.0) Aspartate Amino Transf (AST/SGOT) 25 U/L (15-37) Alanine Aminotransferase (ALT/SGPT) 45 U/L (12-78) Alkaline Phosphatase 93 U/L (46-116) Troponin I 4.270 ng/mL (0.000-0.056) C-Reactive Protein, Quantitative 23.9 mg/dL (0.00-0.90) H Pro-B-Type Natriuretic Peptide > 66708 pg/mL (0-125) H Total Protein 5.6 G/DL (6.4-8.2) L Albumin 2.1 G/DL (3.4-5.0) L Globulin 3.5 g/dL Albumin/Globulin Ratio 0.6 (1.0-2.7) L Arterial Blood pH 7.511 (7.350-7.450) Arterial Blood Partial Pressure CO2 32.4 mmHg (35.0-45.0) L Arterial Blood Partial Pressure O2 52.8 mmHg (75.0-100.0) L Arterial Blood HCO3 25.3 mmol/L (22.0-26.0) Arterial Blood Oxygen Saturation 89.8 % (95-100) *L Arterial Blood Base Excess 2.5 (-2-2) H Gilberto Test Positive Kaushik Franco MD Feb 10, 2019 19:45
--- NOTE | 2019-02-10 19:45 | NUR ---
NURSE NOTES: SEEN THE PATIENT BY DR. HERNÁNDEZ, NO NEW ORDER STATUS.
--- NOTE | 2019-02-10 22:40 | NUR ---
NURSE NOTES: PATIENT SLEEPING STATUS, NO PAIN OR DISTRESS NOTED AT THIS TIME.
[2019-02-11] VITALS (24 sets, daily range): BP systolic 91–117; BP diastolic 44–70
--- NOTE | 2019-02-11 00:10 | NUR ---
NURSE NOTES: REPOSITIONED, ORAL CARE WAS DONE, NO RESISTANCE TO CARE, WILL CONTINUE PLAN OF CARE.
--- NOTE | 2019-02-11 02:00 | NUR ---
NURSE NOTES: REPOSITIONED, ORAL CARE WAS DONE, PATIENT AWOKE, NO RESISTANCE TO CARE.
--- NOTE | 2019-02-11 03:40 | NUR ---
NURSE NOTES: MORNING CARE WAS DONE, SCANTY PASTE DARK BLOODY BOWEL MOVEMENT OUTED, WILL CONTINUE TO MONITOR.
[2019-02-11] MEDS: Piperacillin/Tazobactam 2.25 GM in D5W 55 ML IVPB SCH ×3 (05:30→21:58)
--- NOTE | 2019-02-11 05:50 | NUR ---
NURSE NOTES: PATIENT ABLE TO COMMUNICATION, WANTED TV THAT TURNED ON AT THIS TIME.
[2019-02-11] MEDS: Nitroglycerin 2% oint pkt TOPIC SCH ×4 (06:00→18:00)
[2019-02-11] MEDS: Metoprolol Tartrate 2.5 MG in D5W 55 ML IVPB SCH ×5 (06:00→18:00)
[2019-02-11 06:23] LABS: HEMATOCRIT 25.2 % (37.0-47.0); HEMOGLOBIN 8.3 G/DL (12.0-16.0); MEAN CORPUSCULAR VOLUME 89 FL (80-99); PLATELET COUNT 204 K/UL (150-450); RED BLOOD COUNT 2.82 M/UL (4.20-5.40); RED CELL DISTRIBUTION WIDTH 15.5 % (11.6-14.8); WHITE BLOOD COUNT 17.1 K/UL (4.8-10.8)
[2019-02-11 06:52] LABS: ALANINE AMINOTRANSFERASE 33 U/L (12-78); ALBUMIN 1.9 G/DL (3.4-5.0); ALBUMIN/GLOBULIN RATIO 0.6 (1.0-2.7); ALKALINE PHOSPHATASE 102 U/L (46-116); ANION GAP 12 mmol/L (5-15); ASPARTATE AMINO TRANSFERASE 23 U/L (15-37); BILIRUBIN,TOTAL 0.6 MG/DL (0.2-1.0); BLOOD UREA NITROGEN 63 mg/dL (7-18); CALCIUM 7.8 MG/DL (8.5-10.1); CARBON DIOXIDE 24 MMOL/L (21-32); CHLORIDE 109 MMOL/L (98-107); CREATININE 3.7 MG/DL (0.55-1.30); PHOSPHORUS 2.2 MG/DL (2.5-4.9); POTASSIUM 3.3 MMOL/L (3.5-5.1); SODIUM 145 MMOL/L (136-145)
--- NOTE | 2019-02-11 07:03 | NUR ---
HAND-OFF: Report given to MAYO MCKEON.
--- NOTE | 2019-02-11 07:31 | NUR ---
RESPIRATORY NOTE: received pt on bipap with currents settings. no redness or skin tears visible around facial/neck are. foam tape is in place. no apparent resp distress noted at this time. alarms are set and audible. bipap is plugged into redoutlet and ambu bag at bedside. will cont to monitor.
--- NOTE | 2019-02-11 07:35 | NUR ---
NURSE NOTES: PATIENT LETHARGIC, DENIED SOB OR DISCOMFORT, ON BIPAP, RATE 16, I/E 12/5, FIO2 70%, O2 SATURATION 100%, ABDOMEN SOFT, DISTENDED, NO N/V, NGT TO RIGHT NARES, NPO STATUS, LOWER INTERMITTENT SUCTION, HYPOACTIVE BOWEL SOUND, NO BOWEL MOVEMENT STATUS, F/C INTACT AND PATENT, YELLOW URINE COLOR NOTED, OLIGURIA, AV FISTULA TO LEFT UPPER ARM, PALPABLE THRILL, BRUITS, KEPT LEFT ARM PRECAUTION, RIGHT AKA STATUS, 2 POINT SOFT RESTRAINTS FOR SAFETY, ON SCD TO LEFT LOWER LEG, PERIPHERAL LINE TO RIGHT FOREARM 20G INTACT AND PATENT, AND D5W AT 50ML/HR VIA PERIPHERAL LINE, PROVIDED CALL LIGHT WITHIN REACH, MADE LOWER BED POSITION, BED ALARM ON FOR SAFETY WILL CONTINUE TO MONITOR PATIENT.
--- NOTE | 2019-02-11 09:30 | NUR ---
RADIOLOGY DEPT., CHEST X-RAY DONE.-P.DYE
--- NOTE | 2019-02-11 09:38 | Pulmonolgy Critical Care Note ---
Critical Care - Asmt/Plan Problems: (1) Respiratory failure, acute (2) Aspiration pneumonia (3) Acute encephalopathy (4) Hemorrhagic shock (5) Upper GI bleeding (6) ESRF (end stage renal failure) (7) Diabetes mellitus (8) S/P AKA (above knee amputation) unilateral Respiratory: monitor respiratory rate, adjust FIO2, CXR Cardiac: continue pressors, continue to monitor HR/BP Renal: F/U I&O, keep IV fluid, other Infectious Disease: check cultures, other - wbc decreasing Gastrointestinal: continue feedings/current rate, hold feedings Endocrine: check TSH Hematologic: monitor H/H Neurologic: PRN Ativan, PRN Morphine Affect: PRN ativan Prophylaxis: Protonix Notes Reviewed: cardio Discussed with: nurses Critical Care - Objective Last 24 Hour Vital Signs Date Time Temp Pulse Resp B/P (MAP) Pulse Ox O2 Delivery O2 Flow Rate FiO2 02/11/19 09:07 86 21 100 Facial 40 02/11/19 09:00 84 21 109/53 (71) 100 02/11/19 08:00 50 02/11/19 08:00 98.8 79 21 100/55 (70) 97 02/11/19 08:00 Bi-pap Bi-pap 02/11/19 08:00 89 02/11/19 07:28 Bi-pap 50 02/11/19 07:28 99 Bi-pap 50 02/11/19 07:28 84 22 98 Facial 50 02/11/19 07:00 79 21 91/44 (60) 97 02/11/19 06:00 84 20 109/52 (71) 99 02/11/19 06:00 116/55 02/11/19 06:00 82 116/55 02/11/19 05:00 89 21 111/55 (73) 93 02/11/19 04:53 89 24 100 Facial 50 02/11/19 04:00 Bi-pap Bi-pap 02/11/19 04:00 84 02/11/19 04:00 50 02/11/19 04:00 98.3 83 21 100/50 (67) 100 02/11/19 03:15 93 23 100 Facial 50 02/11/19 03:00 87 20 101/57 (72) 99 02/11/19 02:00 88 23 93/53 (66) 99 02/11/19 01:18 88 22 100 Facial 50 02/11/19 01:00 87 21 102/57 (72) 100 02/11/19 00:00 91 02/11/19 00:00 99.0 90 20 94/51 (65) 100 02/11/19 00:00 Bi-pap Bi-pap 02/11/19 00:00 94/51 02/11/19 00:00 92 94/51 02/11/19 00:00 50 02/10/19 23:15 92 20 100 Facial 50 02/10/19 23:00 91 22 98/52 (67) 100 02/10/19 22:00 93 24 94/55 (68) 100 02/10/19 21:03 93 23 100 Facial 60 02/10/19 21:00 60 02/10/19 21:00 92 23 89/50 (63) 100 02/10/19 20:00 91 02/10/19 20:00 99.3 91 23 88/50 (63) 100 02/10/19 20:00 Bi-pap Bi-pap 02/10/19 20:00 70 02/10/19 19:09 Bi-pap 70 02/10/19 19:09 92 22 100 Facial 70 02/10/19 19:09 100 Bi-pap 70 02/10/19 19:00 82 22 99/70 (80) 100 02/10/19 18:00 97/56 02/10/19 18:00 94 97/56 02/10/19 18:00 80 22 97/68 (78) 100 02/10/19 17:00 88 22 108/66 (80) 100 02/10/19 16:32 96 21 100 Facial 70 02/10/19 16:00 98.7 94 25 106/67 (80) 100 02/10/19 16:00 Bi-pap Bi-pap 02/10/19 16:00 94 02/10/19 16:00 70 02/10/19 15:48 70 02/10/19 15:00 85 22 115/64 (81) 100 02/10/19 14:43 96 24 100 Full Face 45 02/10/19 14:00 90 20 117/65 (82) 100 02/10/19 13:00 92 20 122/70 (87) 100 02/10/19 12:53 94 23 100 Full Face 45 02/10/19 12:00 98.7 88 20 115/67 (83) 100 02/10/19 12:00 Bi-pap Bi-pap 02/10/19 12:00 88 02/10/19 12:00 45 02/10/19 11:54 115/67 02/10/19 11:49 89 115/67 02/10/19 11:00 84 20 120/72 (88) 100 02/10/19 10:39 92 21 100 Full Face 45 02/10/19 10:24 125/77 02/10/19 10:00 88 20 128/78 (95) 100 Status: awake Condition: critical HEENT: atraumatic Heart: HR/BP unstable Abdomen: soft, active bowel sounds Extremities: edema Decubiti: location Micro: Microbiology Date/Time Source Procedure Growth Status 02/10/19 20:55 Sputum Expectorated Gram Stain - Final Resulted 02/10/19 20:55 Sputum Expectorated Sputum Culture Pending Resulted Critical Care - Subjective ROS Limited/Unobtainable: No Interval Events: awake, comfortable, FI02: 40 Vent Support Breath Rate: 16 Vent Support Mode: BiLevel Vent Tidal Volume: 550 Sputum Amount: None PEEP: 5.0 PIP: 14 I&O: Intake and Output 02/10/19 02/11/19 19:00 07:00 Intake Total 975 ml 710 ml Output Total 2515 ml 105 ml Balance -1540 ml 605 ml IV Total 975 ml 710 ml Output Urine Total 515 ml 85 ml Gastric Drainage Total 20 ml Hemodialysis UF 2000 ml # Bowel Movements 2 CXR: extensive infiltrate ET-Tube: 8.0 ET Position: 24 Labs: Laboratory Tests Test 02/10/19 15:37 02/11/19 05:20 02/11/19 08:20 Arterial Blood pH 7.511 (7.350-7.450) 7.432 (7.350-7.450) Arterial Blood Partial Pressure CO2 32.4 mmHg (35.0-45.0) L 34.0 mmHg (35.0-45.0) L Arterial Blood Partial Pressure O2 52.8 mmHg (75.0-100.0) L 58.0 mmHg (75.0-100.0) L Arterial Blood HCO3 25.3 mmol/L (22.0-26.0) 22.2 mmol/L (22.0-26.0) Arterial Blood Oxygen Saturation 89.8 % (95-100) *L 90.8 % (95-100) L Arterial Blood Base Excess 2.5 (-2-2) H -1.7 (-2-2) Gilberto Test Positive Positive White Blood Count 17.1 K/UL (4.8-10.8) H Red Blood Count 2.82 M/UL (4.20-5.40) L Hemoglobin 8.3 G/DL (12.0-16.0) L Hematocrit 25.2 % (37.0-47.0) L Mean Corpuscular Volume 89 FL (80-99) Mean Corpuscular Hemoglobin 29.6 PG (27.0-31.0) Mean Corpuscular Hemoglobin Concent 33.1 G/DL (32.0-36.0) Red Cell Distribution Width 15.5 % (11.6-14.8) H Platelet Count 204 K/UL (150-450) Mean Platelet Volume 9.7 FL (6.5-10.1) Neutrophils (%) (Auto) % (45.0-75.0) Lymphocytes (%) (Auto) % (20.0-45.0) Monocytes (%) (Auto) % (1.0-10.0) Eosinophils (%) (Auto) % (0.0-3.0) Basophils (%) (Auto) % (0.0-2.0) Differential Total Cells Counted 100 Neutrophils % (Manual) 85 % (45-75) H Lymphocytes % (Manual) 7 % (20-45) L Monocytes % (Manual) 4 % (1-10) Eosinophils % (Manual) 4 % (0-3) H Basophils % (Manual) 0 % (0-2) Band Neutrophils 0 % (0-8) Platelet Estimate Adequate Platelet Morphology Normal Hypochromasia 2+ Anisocytosis 1+ Spherocytes 1+ Sodium Level 145 MMOL/L (136-145) Potassium Level 3.3 MMOL/L (3.5-5.1) L Chloride Level 109 MMOL/L (98-107) H Carbon Dioxide Level 24 MMOL/L (21-32) Anion Gap 12 mmol/L (5-15) Blood Urea Nitrogen 63 mg/dL (7-18) H Creatinine 3.7 MG/DL (0.55-1.30) H Estimat Glomerular Filtration Rate 14.8 mL/min (>60) Glucose Level 162 MG/DL (74-106) H Calcium Level 7.8 MG/DL (8.5-10.1) L Phosphorus Level 2.2 MG/DL (2.5-4.9) L Magnesium Level 1.8 MG/DL (1.8-2.4) Total Bilirubin 0.6 MG/DL (0.2-1.0) Aspartate Amino Transf (AST/SGOT) 23 U/L (15-37) Alanine Aminotransferase (ALT/SGPT) 33 U/L (12-78) Alkaline Phosphatase 102 U/L (46-116) Total Protein 5.3 G/DL (6.4-8.2) L Albumin 1.9 G/DL (3.4-5.0) L Globulin 3.4 g/dL Albumin/Globulin Ratio 0.6 (1.0-2.7) L Lit Cerna MD Feb 11, 2019 09:38
--- NOTE | 2019-02-11 10:00 | NUR ---
NURSE NOTES: VSS. No distress noted. Family at bedside. Will continue plan of care.
[2019-02-11] MEDS: Pantoprazole Inj IVP SCH ×2 (10:11→20:30)
[2019-02-11] MEDS: Aspirin Baby 81mg NG SCH (10:11)
[2019-02-11] MEDS: DOPamine 400mg/250ml 250 ML IV SCH (10:11)
--- NOTE | 2019-02-11 10:50 | NUR ---
RESPIRATORY NOTE: placed pt on VM 50%. Pt understand and aware of oxygen levels and may be placed back on bipap if saturation decreases.
[2019-02-11] MEDS ORDERED: Potassium Phosphate 15 MM in NS 275 ML IV ONE (11:00)
--- NOTE | 2019-02-11 12:00 | NUR ---
NURSE NOTES: patient on venturi mask 50%. VSS. Tolerating well. No changes in patient condition at this time. Will continue to monitor patient.
--- NOTE | 2019-02-11 12:18 | GI Progress Note ---
Assessment/Plan Problems: (1) Upper GI bleeding ICD Codes: K92.2 - Gastrointestinal hemorrhage, unspecified SNOMED: 32838476 (2) Hemorrhagic shock ICD Codes: R57.8 - Hemorrhagic shock SNOMED: 159416 (3) Anemia ICD Codes: D64.9 - Anemia, unspecified SNOMED: 951559142 Status: stable Status Narrative Discussed with Dr. Herrera. Assessment/Plan s/p EGD and hemostasis stable H&H Begin ASA daily today NGTF trial today Protonix twice daily monitor H&H, prn transfusion follow labs The patient was seen and examined at bedside and all new and available data was reviewed in the patients chart. I agree with the above findings, impression and plan. (Patient seen earlier today. Signature stamp does not reflect patient encounter time.). - Fabrizio Herrera MD Subjective Subjective Limited Objective Last 24 Hour Vital Signs Date Time Temp Pulse Resp B/P (MAP) Pulse Ox O2 Delivery O2 Flow Rate FiO2 02/11/19 12:00 Bi-pap Bi-pap 02/11/19 12:00 12.0 50 02/11/19 12:00 106/53 02/11/19 12:00 84 106/53 02/11/19 10:50 12.0 50 02/11/19 10:11 103/58 02/11/19 09:07 86 21 100 Facial 40 02/11/19 09:00 84 21 109/53 (71) 100 02/11/19 08:00 50 02/11/19 08:00 98.8 79 21 100/55 (70) 97 02/11/19 08:00 Bi-pap Bi-pap 02/11/19 08:00 89 02/11/19 07:28 Bi-pap 50 02/11/19 07:28 99 Bi-pap 50 02/11/19 07:28 84 22 98 Facial 50 02/11/19 07:00 79 21 91/44 (60) 97 02/11/19 06:00 84 20 109/52 (71) 99 02/11/19 06:00 116/55 02/11/19 06:00 82 116/55 02/11/19 05:00 89 21 111/55 (73) 93 02/11/19 04:53 89 24 100 Facial 50 02/11/19 04:00 Bi-pap Bi-pap 02/11/19 04:00 84 02/11/19 04:00 50 02/11/19 04:00 98.3 83 21 100/50 (67) 100 02/11/19 03:15 93 23 100 Facial 50 02/11/19 03:00 87 20 101/57 (72) 99 02/11/19 02:00 88 23 93/53 (66) 99 02/11/19 01:18 88 22 100 Facial 50 02/11/19 01:00 87 21 102/57 (72) 100 02/11/19 00:00 91 02/11/19 00:00 99.0 90 20 94/51 (65) 100 02/11/19 00:00 Bi-pap Bi-pap 02/11/19 00:00 94/51 02/11/19 00:00 92 94/51 02/11/19 00:00 50 02/10/19 23:15 92 20 100 Facial 50 02/10/19 23:00 91 22 98/52 (67) 100 02/10/19 22:00 93 24 94/55 (68) 100 02/10/19 21:03 93 23 100 Facial 60 02/10/19 21:00 60 02/10/19 21:00 92 23 89/50 (63) 100 02/10/19 20:00 91 02/10/19 20:00 99.3 91 23 88/50 (63) 100 02/10/19 20:00 Bi-pap Bi-pap 02/10/19 20:00 70 02/10/19 19:09 Bi-pap 70 02/10/19 19:09 92 22 100 Facial 70 02/10/19 19:09 100 Bi-pap 70 02/10/19 19:00 82 22 99/70 (80) 100 02/10/19 18:00 97/56 02/10/19 18:00 94 97/56 02/10/19 18:00 80 22 97/68 (78) 100 02/10/19 17:00 88 22 108/66 (80) 100 02/10/19 16:32 96 21 100 Facial 70 02/10/19 16:00 98.7 94 25 106/67 (80) 100 02/10/19 16:00 Bi-pap Bi-pap 02/10/19 16:00 94 02/10/19 16:00 70 02/10/19 15:48 70 02/10/19 15:00 85 22 115/64 (81) 100 02/10/19 14:43 96 24 100 Full Face 45 02/10/19 14:00 90 20 117/65 (82) 100 02/10/19 13:00 92 20 122/70 (87) 100 02/10/19 12:53 94 23 100 Full Face 45 Intake and Output 02/10/19 02/11/19 19:00 07:00 Intake Total 975 ml 710 ml Output Total 2515 ml 105 ml Balance -1540 ml 605 ml IV Total 975 ml 710 ml Output Urine Total 515 ml 85 ml Gastric Drainage Total 20 ml Hemodialysis UF 2000 ml # Bowel Movements 2 Laboratory Tests Test 02/10/19 15:37 02/11/19 05:20 02/11/19 08:20 Arterial Blood pH 7.511 (7.350-7.450) 7.432 (7.350-7.450) Arterial Blood Partial Pressure CO2 32.4 mmHg (35.0-45.0) L 34.0 mmHg (35.0-45.0) L Arterial Blood Partial Pressure O2 52.8 mmHg (75.0-100.0) L 58.0 mmHg (75.0-100.0) L Arterial Blood HCO3 25.3 mmol/L (22.0-26.0) 22.2 mmol/L (22.0-26.0) Arterial Blood Oxygen Saturation 89.8 % (95-100) *L 90.8 % (95-100) L Arterial Blood Base Excess 2.5 (-2-2) H -1.7 (-2-2) Gilberto Test Positive Positive White Blood Count 17.1 K/UL (4.8-10.8) H Red Blood Count 2.82 M/UL (4.20-5.40) L Hemoglobin 8.3 G/DL (12.0-16.0) L Hematocrit 25.2 % (37.0-47.0) L Mean Corpuscular Volume 89 FL (80-99) Mean Corpuscular Hemoglobin 29.6 PG (27.0-31.0) Mean Corpuscular Hemoglobin Concent 33.1 G/DL (32.0-36.0) Red Cell Distribution Width 15.5 % (11.6-14.8) H Platelet Count 204 K/UL (150-450) Mean Platelet Volume 9.7 FL (6.5-10.1) Neutrophils (%) (Auto) % (45.0-75.0) Lymphocytes (%) (Auto) % (20.0-45.0) Monocytes (%) (Auto) % (1.0-10.0) Eosinophils (%) (Auto) % (0.0-3.0) Basophils (%) (Auto) % (0.0-2.0) Differential Total Cells Counted 100 Neutrophils % (Manual) 85 % (45-75) H Lymphocytes % (Manual) 7 % (20-45) L Monocytes % (Manual) 4 % (1-10) Eosinophils % (Manual) 4 % (0-3) H Basophils % (Manual) 0 % (0-2) Band Neutrophils 0 % (0-8) Platelet Estimate Adequate Platelet Morphology Normal Hypochromasia 2+ Anisocytosis 1+ Spherocytes 1+ Sodium Level 145 MMOL/L (136-145) Potassium Level 3.3 MMOL/L (3.5-5.1) L Chloride Level 109 MMOL/L (98-107) H Carbon Dioxide Level 24 MMOL/L (21-32) Anion Gap 12 mmol/L (5-15) Blood Urea Nitrogen 63 mg/dL (7-18) H Creatinine 3.7 MG/DL (0.55-1.30) H Estimat Glomerular Filtration Rate 14.8 mL/min (>60) Glucose Level 162 MG/DL (74-106) H Calcium Level 7.8 MG/DL (8.5-10.1) L Phosphorus Level 2.2 MG/DL (2.5-4.9) L Magnesium Level 1.8 MG/DL (1.8-2.4) Total Bilirubin 0.6 MG/DL (0.2-1.0) Aspartate Amino Transf (AST/SGOT) 23 U/L (15-37) Alanine Aminotransferase (ALT/SGPT) 33 U/L (12-78) Alkaline Phosphatase 102 U/L (46-116) Total Protein 5.3 G/DL (6.4-8.2) L Albumin 1.9 G/DL (3.4-5.0) L Globulin 3.4 g/dL Albumin/Globulin Ratio 0.6 (1.0-2.7) L Microbiology Date/Time Source Procedure Growth Status 02/10/19 20:55 Sputum Expectorated Gram Stain - Final Resulted 02/10/19 20:55 Sputum Expectorated Sputum Culture Pending Resulted Height (Feet): 5 Height (Inches): 6.00 Weight (Pounds): 165 General Appearance: WD/WN, no apparent distress, alert Cardiovascular: normal rate Respiratory/Chest: normal breath sounds, no respiratory distress, other - BIPAP Abdominal Exam: normal bowel sounds, non tender, soft Extremities: non-tender Rachel Simpson NP Feb 11, 2019 12:18
--- NOTE | 2019-02-11 12:43 | Nephrology Progress Note ---
Assessment/Plan Problem List: (1) Upper GI bleeding (2) Hemorrhagic shock (3) ESRF (end stage renal failure) (4) NSTEMI (non-ST elevated myocardial infarction) (5) Respiratory failure, acute (6) Lung mass Assessment admitted with massive GI bleed and hypotension ESRD : M W Fr h/o UTI now , on vent, respitatory failure Other medical conditions; Type 2 diabetes. Hypertension. h/o Anemia of chronic renal disease Hypercholesterolemia. Peripheral vascular disease. Alzheimer's dementia. ?? LUNG Pathology PAST SURGICAL HISTORY: 1. Right [id number] amputation. 2. Open reduction internal fixation Plan Plan: on BIPAP PRN start EPO change protonix drip to IV q12h IV fluid to D5 HD 02/10 done monitor H&h monitor troponin I monitor lytes and renal parameters antibiotics for uti start NTG Paste Subjective ROS Limited/Unobtainable: No Objective Objective Last 24 Hour Vital Signs Date Time Temp Pulse Resp B/P (MAP) Pulse Ox O2 Delivery O2 Flow Rate FiO2 02/11/19 12:00 Bi-pap Bi-pap 02/11/19 12:00 12.0 50 02/11/19 12:00 98.6 84 21 98/56 (70) 100 02/11/19 12:00 106/53 02/11/19 12:00 84 106/53 02/11/19 12:00 84 02/11/19 11:00 88 25 108/56 (73) 100 02/11/19 10:50 12.0 50 02/11/19 10:11 103/58 02/11/19 10:00 85 20 105/55 (72) 100 02/11/19 09:07 86 21 100 Facial 40 02/11/19 09:00 84 21 109/53 (71) 100 02/11/19 08:00 50 02/11/19 08:00 98.8 79 21 100/55 (70) 97 02/11/19 08:00 Bi-pap Bi-pap 02/11/19 08:00 89 02/11/19 07:28 Bi-pap 50 02/11/19 07:28 99 Bi-pap 50 02/11/19 07:28 84 22 98 Facial 50 02/11/19 07:00 79 21 91/44 (60) 97 02/11/19 06:00 84 20 109/52 (71) 99 02/11/19 06:00 116/55 02/11/19 06:00 82 116/55 02/11/19 05:00 89 21 111/55 (73) 93 02/11/19 04:53 89 24 100 Facial 50 02/11/19 04:00 Bi-pap Bi-pap 02/11/19 04:00 84 02/11/19 04:00 50 02/11/19 04:00 98.3 83 21 100/50 (67) 100 02/11/19 03:15 93 23 100 Facial 50 02/11/19 03:00 87 20 101/57 (72) 99 02/11/19 02:00 88 23 93/53 (66) 99 02/11/19 01:18 88 22 100 Facial 50 02/11/19 01:00 87 21 102/57 (72) 100 02/11/19 00:00 91 02/11/19 00:00 99.0 90 20 94/51 (65) 100 02/11/19 00:00 Bi-pap Bi-pap 02/11/19 00:00 94/51 02/11/19 00:00 92 94/51 02/11/19 00:00 50 02/10/19 23:15 92 20 100 Facial 50 02/10/19 23:00 91 22 98/52 (67) 100 02/10/19 22:00 93 24 94/55 (68) 100 02/10/19 21:03 93 23 100 Facial 60 02/10/19 21:00 60 02/10/19 21:00 92 23 89/50 (63) 100 02/10/19 20:00 91 02/10/19 20:00 99.3 91 23 88/50 (63) 100 02/10/19 20:00 Bi-pap Bi-pap 02/10/19 20:00 70 02/10/19 19:09 Bi-pap 70 02/10/19 19:09 92 22 100 Facial 70 02/10/19 19:09 100 Bi-pap 70 02/10/19 19:00 82 22 99/70 (80) 100 02/10/19 18:00 97/56 02/10/19 18:00 94 97/56 02/10/19 18:00 80 22 97/68 (78) 100 02/10/19 17:00 88 22 108/66 (80) 100 02/10/19 16:32 96 21 100 Facial 70 02/10/19 16:00 98.7 94 25 106/67 (80) 100 02/10/19 16:00 Bi-pap Bi-pap 02/10/19 16:00 94 02/10/19 16:00 70 02/10/19 15:48 70 02/10/19 15:00 85 22 115/64 (81) 100 02/10/19 14:43 96 24 100 Full Face 45 02/10/19 14:00 90 20 117/65 (82) 100 02/10/19 13:00 92 20 122/70 (87) 100 02/10/19 12:53 94 23 100 Full Face 45 Intake and Output 02/10/19 02/11/19 19:00 07:00 Intake Total 975 ml 710 ml Output Total 2515 ml 105 ml Balance -1540 ml 605 ml IV Total 975 ml 710 ml Output Urine Total 515 ml 85 ml Gastric Drainage Total 20 ml Hemodialysis UF 2000 ml # Bowel Movements 2 Laboratory Tests 02/10/19 15:37: Arterial Blood pH 7.511H, Arterial Blood Partial Pressure CO2 32.4L, Arterial Blood Partial Pressure O2 52.8L, Arterial Blood HCO3 25.3, Arterial Blood Oxygen Saturation 89.8*L, Arterial Blood Base Excess 2.5H, Gilberto Test Positive 02/11/19 05:20: White Blood Count 17.1H, Red Blood Count 2.82L, Hemoglobin 8.3L, Hematocrit 25.2L, Mean Corpuscular Volume 89, Mean Corpuscular Hemoglobin 29.6, Mean Corpuscular Hemoglobin Concent 33.1, Red Cell Distribution Width 15.5H, Platelet Count 204, Mean Platelet Volume 9.7, Neutrophils (%) (Auto) , Lymphocytes (%) (Auto) , Monocytes (%) (Auto) , Eosinophils (%) (Auto) , Basophils (%) (Auto) , Differential Total Cells Counted 100, Neutrophils % ( Manual) 85H, Lymphocytes % (Manual) 7L, Monocytes % (Manual) 4, Eosinophils % ( Manual) 4H, Basophils % (Manual) 0, Band Neutrophils 0, Platelet Estimate Adequate, Platelet Morphology Normal, Hypochromasia 2+, Anisocytosis 1+, Spherocytes 1+, Sodium Level 145, Potassium Level 3.3L, Chloride Level 109H, Carbon Dioxide Level 24, Anion Gap 12, Blood Urea Nitrogen 63H, Creatinine 3.7H , Estimat Glomerular Filtration Rate 14.8, Glucose Level 162H, Calcium Level 7.8L, Phosphorus Level 2.2L, Magnesium Level 1.8, Total Bilirubin 0.6, Aspartate Amino Transf (AST/SGOT) 23, Alanine Aminotransferase (ALT/SGPT) 33, Alkaline Phosphatase 102, Total Protein 5.3L, Albumin 1.9L, Globulin 3.4, Albumin/Globulin Ratio 0.6L 02/11/19 08:20: Arterial Blood pH 7.432, Arterial Blood Partial Pressure CO2 34.0L, Arterial Blood Partial Pressure O2 58.0L, Arterial Blood HCO3 22.2, Arterial Blood Oxygen Saturation 90.8L, Arterial Blood Base Excess -1.7, Gilberto Test Positive Height (Feet): 5 Height (Inches): 6.00 Weight (Pounds): 165 General Appearance: no apparent distress, lethargic EENT: other - O2 Mask Cardiovascular: normal rate Respiratory/Chest: decreased breath sounds Abdomen: soft Marques Motta MD Feb 11, 2019 12:43
--- NOTE | 2019-02-11 13:00 | NUR ---
RESPIRATORY NOTE: pt maintaining appropriate saturation. decreased fio2 to 40% on VM
--- NOTE | 2019-02-11 14:00 | NUR ---
NURSE NOTES: Patient turned and repositioned. No new orders at this time. VSS. Denies pain or discomofrt. Will continue to monitor patient.
[2019-02-11] MEDS ORDERED: Iron Sucrose 200 MG in NS 50 ML IV SCH (15:00)
--- NOTE | 2019-02-11 15:13 | Cardiology Progress Note ---
Assessment/Plan Assessment/Plan 1. Def-LM-fndrdifpv myocardial infarction likely demand relatred 2. Recent gastrointestinal bleeding, hemoclip placement. 3. History of vomiting and possible aspiration. 4. Pneumonia. 5. Diabetes mellitus. 6. Tachycardia. 7. Anemia. 8. Leukocytosis, likely secondary to pneumonia. 9. End-stage renal disease, on hemodialysis. 10. Bactermeia contaminant cxr reviewed looks bilat infiltrates tel sinus echo reviewed lv function not bad bp better blood cx felt to be contaminant per id ekg no new ones performed trop down trending no off bipap on 50 cc / hr of ivf is on Ecotrin if needed bolus of ivf keep in icu until pul stable abx hgb lower on ecotrin will see if need to dc if drops furtehr prognosis gaurded Subjective Cardiovascular: Denies: chest pain, lightheadedness, palpitations Respiratory: Reports: cough; Denies: shortness of breath Gastrointestinal/Abdominal: Denies: abdominal pain Genitourinary: Denies: burning Objective Last 24 Hour Vital Signs Date Time Temp Pulse Resp B/P (MAP) Pulse Ox O2 Delivery O2 Flow Rate FiO2 02/11/19 13:00 85 22 110/55 (73) 100 02/11/19 12:00 Bi-pap Bi-pap 02/11/19 12:00 12.0 50 02/11/19 12:00 98.6 84 21 98/56 (70) 100 02/11/19 12:00 106/53 02/11/19 12:00 84 106/53 02/11/19 12:00 84 02/11/19 11:00 88 25 108/56 (73) 100 02/11/19 10:50 12.0 50 02/11/19 10:11 103/58 02/11/19 10:00 85 20 105/55 (72) 100 02/11/19 09:07 86 21 100 Facial 40 02/11/19 09:00 84 21 109/53 (71) 100 02/11/19 08:00 50 02/11/19 08:00 98.8 79 21 100/55 (70) 97 02/11/19 08:00 Bi-pap Bi-pap 02/11/19 08:00 89 02/11/19 07:28 Bi-pap 50 02/11/19 07:28 99 Bi-pap 50 02/11/19 07:28 84 22 98 Facial 50 02/11/19 07:00 79 21 91/44 (60) 97 02/11/19 06:00 84 20 109/52 (71) 99 02/11/19 06:00 116/55 02/11/19 06:00 82 116/55 02/11/19 05:00 89 21 111/55 (73) 93 02/11/19 04:53 89 24 100 Facial 50 02/11/19 04:00 Bi-pap Bi-pap 02/11/19 04:00 84 02/11/19 04:00 50 02/11/19 04:00 98.3 83 21 100/50 (67) 100 02/11/19 03:15 93 23 100 Facial 50 02/11/19 03:00 87 20 101/57 (72) 99 02/11/19 02:00 88 23 93/53 (66) 99 02/11/19 01:18 88 22 100 Facial 50 02/11/19 01:00 87 21 102/57 (72) 100 02/11/19 00:00 91 02/11/19 00:00 99.0 90 20 94/51 (65) 100 02/11/19 00:00 Bi-pap Bi-pap 02/11/19 00:00 94/51 02/11/19 00:00 92 94/51 02/11/19 00:00 50 02/10/19 23:15 92 20 100 Facial 50 02/10/19 23:00 91 22 98/52 (67) 100 02/10/19 22:00 93 24 94/55 (68) 100 02/10/19 21:03 93 23 100 Facial 60 02/10/19 21:00 60 02/10/19 21:00 92 23 89/50 (63) 100 02/10/19 20:00 91 02/10/19 20:00 99.3 91 23 88/50 (63) 100 02/10/19 20:00 Bi-pap Bi-pap 02/10/19 20:00 70 02/10/19 19:09 Bi-pap 70 02/10/19 19:09 92 22 100 Facial 70 02/10/19 19:09 100 Bi-pap 70 02/10/19 19:00 82 22 99/70 (80) 100 02/10/19 18:00 97/56 02/10/19 18:00 94 97/56 02/10/19 18:00 80 22 97/68 (78) 100 02/10/19 17:00 88 22 108/66 (80) 100 02/10/19 16:32 96 21 100 Facial 70 02/10/19 16:00 98.7 94 25 106/67 (80) 100 02/10/19 16:00 Bi-pap Bi-pap 02/10/19 16:00 94 02/10/19 16:00 70 02/10/19 15:48 70 General Appearance: no apparent distress, alert Neck: supple Cardiovascular: regular rhythm Respiratory/Chest: crackles/rales, rhonchi - bilaterally Abdomen: normal bowel sounds, non tender, soft Extremities: no swelling Intake and Output 02/10/19 02/11/19 19:00 07:00 Intake Total 975 ml 710 ml Output Total 2515 ml 105 ml Balance -1540 ml 605 ml IV Total 975 ml 710 ml Output Urine Total 515 ml 85 ml Gastric Drainage Total 20 ml Hemodialysis UF 2000 ml # Bowel Movements 2 Laboratory Tests Test 02/10/19 15:37 02/11/19 05:20 02/11/19 08:20 Arterial Blood pH 7.511 (7.350-7.450) 7.432 (7.350-7.450) Arterial Blood Partial Pressure CO2 32.4 mmHg (35.0-45.0) L 34.0 mmHg (35.0-45.0) L Arterial Blood Partial Pressure O2 52.8 mmHg (75.0-100.0) L 58.0 mmHg (75.0-100.0) L Arterial Blood HCO3 25.3 mmol/L (22.0-26.0) 22.2 mmol/L (22.0-26.0) Arterial Blood Oxygen Saturation 89.8 % (95-100) *L 90.8 % (95-100) L Arterial Blood Base Excess 2.5 (-2-2) H -1.7 (-2-2) Gilberto Test Positive Positive White Blood Count 17.1 K/UL (4.8-10.8) H Red Blood Count 2.82 M/UL (4.20-5.40) L Hemoglobin 8.3 G/DL (12.0-16.0) L Hematocrit 25.2 % (37.0-47.0) L Mean Corpuscular Volume 89 FL (80-99) Mean Corpuscular Hemoglobin 29.6 PG (27.0-31.0) Mean Corpuscular Hemoglobin Concent 33.1 G/DL (32.0-36.0) Red Cell Distribution Width 15.5 % (11.6-14.8) H Platelet Count 204 K/UL (150-450) Mean Platelet Volume 9.7 FL (6.5-10.1) Neutrophils (%) (Auto) % (45.0-75.0) Lymphocytes (%) (Auto) % (20.0-45.0) Monocytes (%) (Auto) % (1.0-10.0) Eosinophils (%) (Auto) % (0.0-3.0) Basophils (%) (Auto) % (0.0-2.0) Differential Total Cells Counted 100 Neutrophils % (Manual) 85 % (45-75) H Lymphocytes % (Manual) 7 % (20-45) L Monocytes % (Manual) 4 % (1-10) Eosinophils % (Manual) 4 % (0-3) H Basophils % (Manual) 0 % (0-2) Band Neutrophils 0 % (0-8) Platelet Estimate Adequate Platelet Morphology Normal Hypochromasia 2+ Anisocytosis 1+ Spherocytes 1+ Sodium Level 145 MMOL/L (136-145) Potassium Level 3.3 MMOL/L (3.5-5.1) L Chloride Level 109 MMOL/L (98-107) H Carbon Dioxide Level 24 MMOL/L (21-32) Anion Gap 12 mmol/L (5-15) Blood Urea Nitrogen 63 mg/dL (7-18) H Creatinine 3.7 MG/DL (0.55-1.30) H Estimat Glomerular Filtration Rate 14.8 mL/min (>60) Glucose Level 162 MG/DL (74-106) H Calcium Level 7.8 MG/DL (8.5-10.1) L Phosphorus Level 2.2 MG/DL (2.5-4.9) L Magnesium Level 1.8 MG/DL (1.8-2.4) Total Bilirubin 0.6 MG/DL (0.2-1.0) Aspartate Amino Transf (AST/SGOT) 23 U/L (15-37) Alanine Aminotransferase (ALT/SGPT) 33 U/L (12-78) Alkaline Phosphatase 102 U/L (46-116) C-Reactive Protein, Quantitative 21.7 mg/dL (0.00-0.90) H Total Protein 5.3 G/DL (6.4-8.2) L Albumin 1.9 G/DL (3.4-5.0) L Globulin 3.4 g/dL Albumin/Globulin Ratio 0.6 (1.0-2.7) L Microbiology Date/Time Source Procedure Growth Status 02/10/19 20:55 Sputum Expectorated Gram Stain - Final Resulted 02/10/19 20:55 Sputum Expectorated Sputum Culture Pending Resulted Kaushik Franco MD Feb 11, 2019 15:13
--- NOTE | 2019-02-11 15:17 | Infectious Diseases Prog Note ---
Assessment/Plan Assessment/Plan Abx: Zosyn 02/07- Assessment: Hypotension , SP- 2ry to massive GIB Leukocytosis, improving- in the setting of above and aspiration PNA- r/o Cdiff -CXR: Interval worsening bilateral airspace opacities, more consolidated in the right upper lobe Query small right pleural effusion. Fever, SP Acute respiratory failure s/p intubation 02/06 (for airway protection), s/p extubated 02/07; now no Bipap CONS bacteremia; likely contaminant -02/05 Bcx / CONS; 02/10 Bcx p hx of ESBL UTI ESRD on HD GERD Dm2 CVA w/ R side weakness HTN HLD PVD s/p AKA Alzheimer dementia lung mass multiple gastric polyps s/p polypectomy gastric antral vascular ectasis DVT NH resident Plan: -Continue empiric Zosyn #5 for now -f/u Bcx x2, SP cx -f.u cx -Monitor CBC/CMP, temperatures -CBC, CMP am -Cdiff if diarrhea Thank you for this consultation. Will continue to follow along with you. Subjective Allergies: Coded Allergies: No Known Allergies (Unverified , 09/15/16) Subjective afebrile wbc improving reepeat Bcx p Objective Vital Signs Last 24 Hour Vital Signs Date Time Temp Pulse Resp B/P (MAP) Pulse Ox O2 Delivery O2 Flow Rate FiO2 02/11/19 13:00 85 22 110/55 (73) 100 02/11/19 12:00 Bi-pap Bi-pap 02/11/19 12:00 12.0 50 02/11/19 12:00 98.6 84 21 98/56 (70) 100 02/11/19 12:00 106/53 02/11/19 12:00 84 106/53 02/11/19 12:00 84 02/11/19 11:00 88 25 108/56 (73) 100 02/11/19 10:50 12.0 50 02/11/19 10:11 103/58 02/11/19 10:00 85 20 105/55 (72) 100 02/11/19 09:07 86 21 100 Facial 40 02/11/19 09:00 84 21 109/53 (71) 100 02/11/19 08:00 50 02/11/19 08:00 98.8 79 21 100/55 (70) 97 02/11/19 08:00 Bi-pap Bi-pap 02/11/19 08:00 89 02/11/19 07:28 Bi-pap 50 02/11/19 07:28 99 Bi-pap 50 02/11/19 07:28 84 22 98 Facial 50 02/11/19 07:00 79 21 91/44 (60) 97 02/11/19 06:00 84 20 109/52 (71) 99 02/11/19 06:00 116/55 02/11/19 06:00 82 116/55 02/11/19 05:00 89 21 111/55 (73) 93 02/11/19 04:53 89 24 100 Facial 50 02/11/19 04:00 Bi-pap Bi-pap 02/11/19 04:00 84 02/11/19 04:00 50 02/11/19 04:00 98.3 83 21 100/50 (67) 100 02/11/19 03:15 93 23 100 Facial 50 02/11/19 03:00 87 20 101/57 (72) 99 02/11/19 02:00 88 23 93/53 (66) 99 02/11/19 01:18 88 22 100 Facial 50 02/11/19 01:00 87 21 102/57 (72) 100 02/11/19 00:00 91 02/11/19 00:00 99.0 90 20 94/51 (65) 100 02/11/19 00:00 Bi-pap Bi-pap 02/11/19 00:00 94/51 02/11/19 00:00 92 94/51 02/11/19 00:00 50 02/10/19 23:15 92 20 100 Facial 50 02/10/19 23:00 91 22 98/52 (67) 100 02/10/19 22:00 93 24 94/55 (68) 100 02/10/19 21:03 93 23 100 Facial 60 02/10/19 21:00 60 02/10/19 21:00 92 23 89/50 (63) 100 02/10/19 20:00 91 02/10/19 20:00 99.3 91 23 88/50 (63) 100 02/10/19 20:00 Bi-pap Bi-pap 02/10/19 20:00 70 02/10/19 19:09 Bi-pap 70 02/10/19 19:09 92 22 100 Facial 70 02/10/19 19:09 100 Bi-pap 70 02/10/19 19:00 82 22 99/70 (80) 100 02/10/19 18:00 97/56 02/10/19 18:00 94 97/56 02/10/19 18:00 80 22 97/68 (78) 100 02/10/19 17:00 88 22 108/66 (80) 100 02/10/19 16:32 96 21 100 Facial 70 02/10/19 16:00 98.7 94 25 106/67 (80) 100 02/10/19 16:00 Bi-pap Bi-pap 02/10/19 16:00 94 02/10/19 16:00 70 02/10/19 15:48 70 Height (Feet): 5 Height (Inches): 6.00 Weight (Pounds): 165 Objective GENERAL: Shows to be elderly female, on BiPAP therapy. NECK: Supple. No jugular venous distention. LUNGS: She does show some crackles and rhonchi. CARDIAC: Regular rhythm. Tachycardic. No heaves or thrills. ABDOMEN: Soft and nontender. Positive bowel sounds. EXTREMITIES: Right above-knee amputation Microbiology Date/Time Source Procedure Growth Status 02/10/19 20:55 Sputum Expectorated Gram Stain - Final Resulted 02/10/19 20:55 Sputum Expectorated Sputum Culture Pending Resulted Laboratory Tests Test 02/10/19 15:37 02/11/19 05:20 02/11/19 08:20 Arterial Blood pH 7.511 (7.350-7.450) 7.432 (7.350-7.450) Arterial Blood Partial Pressure CO2 32.4 mmHg (35.0-45.0) L 34.0 mmHg (35.0-45.0) L Arterial Blood Partial Pressure O2 52.8 mmHg (75.0-100.0) L 58.0 mmHg (75.0-100.0) L Arterial Blood HCO3 25.3 mmol/L (22.0-26.0) 22.2 mmol/L (22.0-26.0) Arterial Blood Oxygen Saturation 89.8 % (95-100) *L 90.8 % (95-100) L Arterial Blood Base Excess 2.5 (-2-2) H -1.7 (-2-2) Gilberto Test Positive Positive White Blood Count 17.1 K/UL (4.8-10.8) H Red Blood Count 2.82 M/UL (4.20-5.40) L Hemoglobin 8.3 G/DL (12.0-16.0) L Hematocrit 25.2 % (37.0-47.0) L Mean Corpuscular Volume 89 FL (80-99) Mean Corpuscular Hemoglobin 29.6 PG (27.0-31.0) Mean Corpuscular Hemoglobin Concent 33.1 G/DL (32.0-36.0) Red Cell Distribution Width 15.5 % (11.6-14.8) H Platelet Count 204 K/UL (150-450) Mean Platelet Volume 9.7 FL (6.5-10.1) Neutrophils (%) (Auto) % (45.0-75.0) Lymphocytes (%) (Auto) % (20.0-45.0) Monocytes (%) (Auto) % (1.0-10.0) Eosinophils (%) (Auto) % (0.0-3.0) Basophils (%) (Auto) % (0.0-2.0) Differential Total Cells Counted 100 Neutrophils % (Manual) 85 % (45-75) H Lymphocytes % (Manual) 7 % (20-45) L Monocytes % (Manual) 4 % (1-10) Eosinophils % (Manual) 4 % (0-3) H Basophils % (Manual) 0 % (0-2) Band Neutrophils 0 % (0-8) Platelet Estimate Adequate Platelet Morphology Normal Hypochromasia 2+ Anisocytosis 1+ Spherocytes 1+ Sodium Level 145 MMOL/L (136-145) Potassium Level 3.3 MMOL/L (3.5-5.1) L Chloride Level 109 MMOL/L (98-107) H Carbon Dioxide Level 24 MMOL/L (21-32) Anion Gap 12 mmol/L (5-15) Blood Urea Nitrogen 63 mg/dL (7-18) H Creatinine 3.7 MG/DL (0.55-1.30) H Estimat Glomerular Filtration Rate 14.8 mL/min (>60) Glucose Level 162 MG/DL (74-106) H Calcium Level 7.8 MG/DL (8.5-10.1) L Phosphorus Level 2.2 MG/DL (2.5-4.9) L Magnesium Level 1.8 MG/DL (1.8-2.4) Total Bilirubin 0.6 MG/DL (0.2-1.0) Aspartate Amino Transf (AST/SGOT) 23 U/L (15-37) Alanine Aminotransferase (ALT/SGPT) 33 U/L (12-78) Alkaline Phosphatase 102 U/L (46-116) C-Reactive Protein, Quantitative 21.7 mg/dL (0.00-0.90) H Total Protein 5.3 G/DL (6.4-8.2) L Albumin 1.9 G/DL (3.4-5.0) L Globulin 3.4 g/dL Albumin/Globulin Ratio 0.6 (1.0-2.7) L Current Medications Medications (Trade) Dose Ordered Sig/Althea Route PRN Reason Start Time Stop Time Status Last Admin Dose Admin Acetaminophen (Tylenol) 650 mg Q4H PRN ORAL T>100.5 02/06/19 10:30 03/08/19 10:29 Aspirin (ASA) 81 mg DAILY NG 02/10/19 09:00 03/12/19 08:59 02/11/19 10:11 Dextrose 1,000 ml @ 50 mls/hr Q20H IV 02/08/19 17:30 03/10/19 17:29 02/11/19 05:28 Dextrose (Dextrose 50%) 25 ml Q30M PRN IV Hypoglycemia 02/06/19 10:30 03/08/19 10:29 Dextrose (Dextrose 50%) 50 ml Q30M PRN IV Hypoglycemia 02/06/19 10:30 03/08/19 10:29 Diphenhydramine HCl (Benadryl) 25 mg Q6H PRN ORAL Itching/Pruritis 02/06/19 10:30 03/08/19 10:29 Dopamine HCl/ Dextrose 250 ml @ 0 mls/hr Q24H IV 02/06/19 10:30 03/08/19 10:29 Epoetin Romeo (Epoetin Romeo(ESRD on dialysis)) 10,000 unit SUN-SUN-SUN SUBQ 02/12/19 21:00 03/14/19 20:59 Iron Sucrose 200 mg/Sodium Chloride 60 ml @ 200 mls/hr ONCE IV 02/11/19 15:00 02/11/19 18:00 Metoprolol Tartrate 2.5 mg/ Dextrose 57.5 ml @ 130 mls/hr Q6HR IVPB 02/09/19 12:00 03/11/19 11:59 02/10/19 00:08 Morphine Sulfate (Morphine Sulfate) 2 mg Q4H PRN IVP Severe Pain (Pain Scale 7-10) 02/06/19 10:30 02/13/19 10:29 02/07/19 21:51 Nitroglycerin (Nitro-Bid) 2 inch Q6HR TOPIC 02/10/19 12:00 03/10/19 17:59 Nitroglycerin (Ntg) 0.4 mg Q5M X 3 DOSES PRN SL Prn Chest Pain 02/06/19 10:30 03/08/19 10:29 Ondansetron HCl (Zofran) 4 mg Q6H PRN IVP Nausea & Vomiting 02/06/19 10:30 03/08/19 10:29 Pantoprazole (Protonix) 40 mg EVERY 12 HOURS IVP 02/09/19 21:00 03/11/19 20:59 02/11/19 10:11 Piperacillin Sod/ Tazobactam Sod 2.25 gm/Dextrose 55 ml @ 110 mls/hr Q8HR IVPB 02/07/19 20:00 02/14/19 19:59 02/11/19 05:30 Polyethylene Glycol (Miralax) 17 gm HSPRN PRN ORAL Constipation 02/06/19 21:00 03/08/19 20:59 Potassium Phosphate 15 mm/ Sodium Chloride 280 ml @ 46.667 mls/ hr ONCE ONCE IV 02/11/19 11:00 02/11/19 16:59 02/11/19 11:32 Temazepam (Restoril) 15 mg HSPRN PRN ORAL Insomnia 02/06/19 21:00 02/13/19 20:59 Daisy Arce M.D. Feb 11, 2019 15:17
--- NOTE | 2019-02-11 16:00 | NUR ---
NURSE NOTES: Patient remains on venturi mask 50%. No distress noted. VSS. Will continue plan of care.
--- NOTE | 2019-02-11 18:00 | NUR ---
NURSE NOTES: Patient stable. VSS. No new orders. Will continue plan of care.
[2019-02-11] MEDS ORDERED: Sterile Water Irrig 1000ml IRRIG ONE (18:55)
[2019-02-11] MEDS ORDERED: NS 275ml ONE ×2 (18:55→19:09)
[2019-02-11] MEDS ORDERED: D5NS 1000ml IV ONE (18:55)
[2019-02-11] MEDS ORDERED: Tubing IV Secondary IV ONE (18:55)
--- NOTE | 2019-02-11 19:10 | NUR ---
HAND-OFF: Report given to Jase CAMARILLO RN using SBAR. VSS. No distress noted..
--- NOTE | 2019-02-11 19:14 | Cardiology Report ---
APPROVED REPORT EKG Measurement Heart [id number] Sinus tachycardia Low voltage QRS Cannot rule out Anteroseptal infarct, age undetermined Abnormal ECG
--- NOTE | 2019-02-11 19:14 | Cardiology Report ---
APPROVED REPORT EKG Measurement Heart [id number] Normal sinus rhythm Possible Left atrial enlargement Septal infarct, age undetermined Inferior infarct, age undetermined Abnormal ECG
--- NOTE | 2019-02-11 19:14 | Cardiology Report ---
APPROVED REPORT EXAM: Two-dimensional and M-mode echocardiogram with Doppler and color Doppler. INDICATION LV FUNCTION M-Mode DIMENSIONS IVSd1.1 (0.7-1.1cm)Left Atrium (MM)2.8 (1.6-4.0cm) LVDd5.5 (3.5-5.6cm)Aortic Root3.8 (2.0-3.7cm) PWd1.4 (0.7-1.1cm)Aortic Cusp Exc.2.0 (1.5-2.0cm) IVSs1.3 cm LVDs3.6 (2.5-4.0cm) PWs1.2 cm Normal left ventricular chamber size, systolic function and wall motion . Left ventricular ejection fraction is estimated to be 50%. No evidence of left ventricular hypertrophy. Anterior Echo-free space, may be due to pericardial fat or effusion. Mild left atrial enlargement . Right cardiac chamber sizes are within normal limits. Aortic valve calcification with normal cusp excursion . Mildly thickened mitral valve leaflets with normal excursion. Mild mitral annulus and aortic root calcification. Pulmonic valve not well visualized. IVC at size 2.0 without physiologic collapse. suggestive of increased RA pressure. A color flow and spectral Doppler study was performed and revealed: No aortic insufficiency . Mitral diastolic velocities suggest pseudo-normal left ventricular physiology c/w moderate LV diastolic dysfunction (Grade II) Moderate mitral regurgitation. Mild tricuspid regurgitation. Tricuspid systolic velocities suggests peak right ventricular systolic pressure of 50mmHg,consistent moderate pulmonary hypertension . Mild pulmonic regurgitation .
--- NOTE | 2019-02-11 19:15 | Diagnostic Imaging Report ---
Indication: Dyspnea Comparison: 02/10/2019 A single view chest radiograph was obtained. Findings: Extensive airspace disease again demonstrated bilaterally without improvement, possibly slightly worse. NG tube again noted. IMPRESSION: No significant frame changer the last day
--- NOTE | 2019-02-11 19:16 | Diagnostic Imaging Report ---
APPROVED REPORT CPT Code: 79507 Present Symptoms Shortness of breath Comments: Hx of above the thigh amputation RIGHT LEG: Venous imaging reveals a patent deep venous system. There is no evidence of thrombus within the common femoral to the mid superficial femoral veins. The greater saphenous vein is also within normal limits. Doppler indicates normal spontaneous flow within these segments. LEFT LEG: Venous imaging reveals a patent deep venous system. There is no evidence of thrombus within the femoral, popliteal or tibial segments. The greater saphenous vein is also within normal limits. Doppler indicates normal spontaneous flow within these segments.
--- NOTE | 2019-02-11 19:40 | NUR ---
NURSE NOTES: PATIENT LETHARGIC, RESPIRATION REGULAR, DENIED SOB OR DISCOMFORT, ON FIO2 50% VENTURI MASK, O2 SATURATION 96%, ABDOMEN SOFT, DISTENDED, NO N/V, NGT TO RIGHT NARES, STOPPED LOWER INTERMITTENT SUCTION ORDERED, THIN GREENISH COLOR OUTED, HYPOACTIVE BOWEL SOUND, NO BOWEL MOVEMENT STATUS, F/C INTACT AND PATENT, YELLOW URINE COLOR NOTED, OLIGURIA, AV FISTULA TO LEFT UPPER ARM, PALPABLE THRILL, BRUITS, KEPT LEFT ARM PRECAUTION, RIGHT AKA STATUS, 2 POINT SOFT RESTRAINTS FOR SAFETY, ON SCD TO LEFT LOWER LEG, PERIPHERAL LINE TO RIGHT FOREARM 20G INTACT AND PATENT, AND D5W AT 50ML/HR VIA PERIPHERAL LINE, PROVIDED CALL LIGHT WITHIN REACH, MADE LOWER BED POSITION, WILL CONTINUE TO MONITOR
--- NOTE | 2019-02-11 22:00 | NUR ---
NURSE NOTES: ONGOING NEPHRO AT 5ML/HR ORDERED, NO N/V NOTED, KEPT HOB OVER 30 DEGREE, WILL CONTINUE TO MONITOR.
[2019-02-12] VITALS (24 sets, daily range): BP systolic 97–125; BP diastolic 53–73
--- NOTE | 2019-02-12 | NUR ---
NURSE NOTES: CHANGED TO BIPAP I/E 10/23, FIO2 40%, RATE 16 STATUS, RESPIRATION REGULAR, NO SOB NOTED AT THIS TIME.
--- NOTE | 2019-02-12 02:30 | NUR ---
NURSE NOTES: PATIENT ASLEEP STATUS, O2 SATURATION OVER 96% NOTED ON BIPAP, NO SOB OR DISTRESS NOTED AT THIS TIME.
--- NOTE | 2019-02-12 04:25 | NUR ---
NURSE NOTES: MORNING CARE AND ORAL CARE WAS DONE, NO BOWEL MOVEMENT AT THIS TIME.
[2019-02-12 05:10] LABS: BASOPHILS % (AUTO) 0.3 % (0.0-2.0); EOSINOPHILS % (AUTO) 5.8 % (0.0-3.0); HEMATOCRIT 26.5 % (37.0-47.0); HEMOGLOBIN 8.5 G/DL (12.0-16.0); MEAN CORPUSCULAR VOLUME 90 FL (80-99); MONOCYTES % (AUTO) 4.6 % (1.0-10.0); NEUTROPHILS % (AUTO) 83.2 % (45.0-75.0); PLATELET COUNT 216 K/UL (150-450); RED BLOOD COUNT 2.96 M/UL (4.20-5.40); RED CELL DISTRIBUTION WIDTH 15.1 % (11.6-14.8)
[2019-02-12 05:36] LABS: PHOSPHORUS 3.3 MG/DL (2.5-4.9)
[2019-02-12] MEDS: Piperacillin/Tazobactam 2.25 GM in D5W 55 ML IVPB SCH ×2 (05:47→13:01)
[2019-02-12] MEDS: Metoprolol Tartrate 2.5 MG in D5W 55 ML IVPB SCH ×5 (05:48→17:46)
[2019-02-12] MEDS: Nitroglycerin 2% oint pkt TOPIC SCH ×5 (05:48→23:50)
[2019-02-12 05:50] LABS: ALANINE AMINOTRANSFERASE 27 U/L (12-78); ALBUMIN 1.7 G/DL (3.4-5.0); ALBUMIN/GLOBULIN RATIO 0.5 (1.0-2.7); ALKALINE PHOSPHATASE 121 U/L (46-116); ANION GAP 16 mmol/L (5-15); ASPARTATE AMINO TRANSFERASE 24 U/L (15-37); BILIRUBIN,TOTAL 0.5 MG/DL (0.2-1.0); BLOOD UREA NITROGEN 63 mg/dL (7-18); CALCIUM 7.4 MG/DL (8.5-10.1); CARBON DIOXIDE 21 MMOL/L (21-32); CHLORIDE 106 MMOL/L (98-107); POTASSIUM 3.7 MMOL/L (3.5-5.1); SODIUM 143 MMOL/L (136-145)
--- NOTE | 2019-02-12 06:10 | NUR ---
NURSE NOTES: NO ACUTE DISTRESS NOTED AT THIS SHIFT.
--- NOTE | 2019-02-12 07:28 | NUR ---
HAND-OFF: Report given to MAYO RIZZO.
--- NOTE | 2019-02-12 07:39 | NUR ---
NURSE NOTES: Patient is awake, opens eyes spontaneously, able to follow simple commands, resting in bed. On venturi mask, FIO2 40%, 8L, O2 sat 96%. No acute distress noted. SR noted on the monitor. Right nare NGT intact, running Nepro at 25ml/hr, HOB elevated. Yanez cath intact and patent, draining yellow urine by gravity. Patient noted with Left upper arm AV shunt. Right forearm 20G intact, asymptomatic, running D5W at 50ml/hr. Bed in lowest position, locked, siderails upx3. Call light within reach. Bed alarm on. Will continue to monitor. Addendum: 02/12/19 at 0910 by SO WOLF RN Right AKA noted. SCD on left lower extremity.
[2019-02-12] MEDS: Pantoprazole Inj IVP SCH (08:24)
[2019-02-12] MEDS: Aspirin Baby 81mg NG SCH (08:24)
--- NOTE | 2019-02-12 09:00 | NUR ---
NURSE NOTES: patient had black diarrhea x1. patient kept clean and dry.
--- NOTE | 2019-02-12 09:40 | NUR ---
NURSE NOTES: Dr. Marcus and Dr. Cerna at bedside. updated on pt's condition. Addendum: 02/12/19 at 1054 by SO WOLF RN correct time: 1040
--- NOTE | 2019-02-12 09:43 | NUR ---
NURSE NOTES: UZIEL Rosa made aware of black diarrhea and c. diff. Okay for rectal tube. Called and left a message to Dr. Arce regarding positive C. diff, awaiting for call back.
--- NOTE | 2019-02-12 09:44 | NUR ---
RADIOLOGY DEPT., CHEST X-RAY DONE.-P.DYE
[2019-02-12] MEDS: DOPamine 400mg/250ml 250 ML IV SCH (09:47)
--- NOTE | 2019-02-12 09:55 | NUR ---
NURSE NOTES: Dr. Arce called back and juliane ordered.
--- NOTE | 2019-02-12 10:24 | Pulmonolgy Critical Care Note ---
Critical Care - Asmt/Plan Problems: (1) Respiratory failure, acute (2) Aspiration pneumonia (3) Acute encephalopathy (4) Hemorrhagic shock (5) Upper GI bleeding (6) ESRF (end stage renal failure) (7) Diabetes mellitus (8) S/P AKA (above knee amputation) unilateral Respiratory: monitor respiratory rate, adjust FIO2, CXR Cardiac: continue to monitor HR/BP Renal: F/U I&O, check electrolytes - HD, more aggressive fluid removal Infectious Disease: check cultures Gastrointestinal: continue feedings/current rate Endocrine: monitor blood sugar Hematologic: monitor H/H, transfuse if hgb<8.5 Neurologic: PRN Ativan, keep patient comfortable Affect: PRN ativan Prophylaxis: Protonix Time Spent (Minutes): 40 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 Discussed with: nurses, consultants, manager of caseassistant community manager - Objective Last 24 Hour Vital Signs Date Time Temp Pulse Resp B/P (MAP) Pulse Ox O2 Delivery O2 Flow Rate FiO2 02/12/19 10:00 86 27 118/73 (88) 100 02/12/19 09:47 125/64 02/12/19 09:00 87 27 125/64 (84) 98 02/12/19 08:00 85 02/12/19 08:00 98.5 85 24 109/57 (74) 94 02/12/19 08:00 Venturi Mask Venturi Mask 02/12/19 08:00 8.0 40 02/12/19 07:00 82 21 113/65 (81) 93 02/12/19 06:46 Venturi Mask 8.0 40 02/12/19 06:46 92 Venturi Mask 8.0 40 02/12/19 06:00 86 23 117/62 (80) 93 02/12/19 05:48 113/59 02/12/19 05:48 92 113/59 02/12/19 05:00 85 25 116/58 (77) 100 02/12/19 04:00 40 02/12/19 04:00 Venturi Mask Venturi Mask 02/12/19 04:00 98.4 81 21 103/62 (76) 100 02/12/19 04:00 81 02/12/19 03:06 79 18 100 Facial 40 02/12/19 03:00 80 20 101/54 (70) 100 02/12/19 02:00 78 21 99/56 (70) 100 02/12/19 01:12 80 20 100 Facial 40 02/12/19 01:00 80 20 106/61 (76) 100 02/12/19 00:00 40 02/12/19 00:00 84 02/12/19 00:00 Venturi Mask Venturi Mask 02/12/19 00:00 96/52 02/12/19 00:00 85 96/52 02/12/19 00:00 98.6 84 19 97/56 (70) 97 02/11/19 23:02 95 24 100 Facial 40 02/11/19 23:00 97 26 109/57 (74) 96 02/11/19 22:00 99 25 117/68 (84) 96 02/11/19 21:00 97 25 110/65 (80) 97 02/11/19 20:00 99 02/11/19 20:00 Venturi Mask Venturi Mask 02/11/19 20:00 12.0 50 02/11/19 20:00 98.7 99 25 113/70 (84) 96 02/11/19 19:16 Venturi Mask 8.0 40 02/11/19 19:16 100 Venturi Mask 8.0 40 02/11/19 19:00 75 22 105/68 (80) 100 02/11/19 18:00 99/56 02/11/19 18:00 95 99/56 02/11/19 18:00 77 22 95/55 (68) 100 02/11/19 17:00 80 22 99/56 (70) 100 02/11/19 16:00 98.7 84 22 104/60 (75) 100 02/11/19 16:00 Bi-pap Bi-pap 02/11/19 16:00 12.0 50 02/11/19 16:00 86 02/11/19 15:00 81 22 98/55 (69) 100 02/11/19 14:00 84 22 105/54 (71) 100 02/11/19 13:00 85 22 110/55 (73) 100 02/11/19 12:00 Bi-pap Bi-pap 02/11/19 12:00 12.0 50 02/11/19 12:00 98.6 84 21 98/56 (70) 100 02/11/19 12:00 106/53 02/11/19 12:00 84 106/53 02/11/19 12:00 84 02/11/19 11:00 88 25 108/56 (73) 100 02/11/19 10:50 12.0 50 Status: awake, obtunded Condition: critical HEENT: atraumatic, normocephalic Neck: full ROM Lungs: clear Heart: HR/BP stable Abdomen: non-tender, feeding tube Extremities: no C/C/E, edema Decubiti: location Micro: Microbiology Date/Time Source Procedure Growth Status 02/10/19 15:04 Blood Blood Culture - Preliminary NO GROWTH AFTER 24 HOURS Resulted 02/10/19 15:00 Blood Blood Culture - Preliminary NO GROWTH AFTER 24 HOURS Resulted 02/10/19 20:55 Sputum Expectorated Gram Stain - Final Resulted 02/10/19 20:55 Sputum Expectorated Sputum Culture - Preliminary NORMAL UPPER RESPIRATORY MOE AT 24 ... Resulted 02/12/19 00:00 Stool Clostridium difficile Toxin Assay - Final Complete Critical Care - Subjective ROS Limited/Unobtainable: Yes Condition: critical EKG Rhythm: Sinus Rhythm FI02: 40 Vent Support Breath Rate: 16 Vent Support Mode: BiLevel Vent Tidal Volume: 550 Sputum Amount: None PEEP: 5.0 PIP: 14 Tube Feeding Amount: 30 I&O: Intake and Output 02/11/19 02/12/19 18:59 06:59 Intake Total 655 ml 887.5 ml Output Total 91 ml 195 ml Balance 564 ml 692.5 ml IV Total 655 ml 742.5 ml Tube Feeding 145 ml Output Urine Total 91 ml 195 ml Gastric Drainage Total 0 ml # Bowel Movements 3 2 CXR: extensive pulmonary edema ET-Tube: 8.0 ET Position: 24 Labs: Laboratory Tests Test 02/12/19 03:35 White Blood Count 14.0 K/UL (4.8-10.8) H Red Blood Count 2.96 M/UL (4.20-5.40) L Hemoglobin 8.5 G/DL (12.0-16.0) L Hematocrit 26.5 % (37.0-47.0) L Mean Corpuscular Volume 90 FL (80-99) Mean Corpuscular Hemoglobin 28.8 PG (27.0-31.0) Mean Corpuscular Hemoglobin Concent 32.2 G/DL (32.0-36.0) Red Cell Distribution Width 15.1 % (11.6-14.8) H Platelet Count 216 K/UL (150-450) Mean Platelet Volume 10.1 FL (6.5-10.1) Neutrophils (%) (Auto) 83.2 % (45.0-75.0) H Lymphocytes (%) (Auto) 6.0 % (20.0-45.0) L Monocytes (%) (Auto) 4.6 % (1.0-10.0) Eosinophils (%) (Auto) 5.8 % (0.0-3.0) H Basophils (%) (Auto) 0.3 % (0.0-2.0) Sodium Level 143 MMOL/L (136-145) Potassium Level 3.7 MMOL/L (3.5-5.1) Chloride Level 106 MMOL/L (98-107) Carbon Dioxide Level 21 MMOL/L (21-32) Anion Gap 16 mmol/L (5-15) H Blood Urea Nitrogen 63 mg/dL (7-18) H Creatinine 4.0 MG/DL (0.55-1.30) H Estimat Glomerular Filtration Rate 13.6 mL/min (>60) Glucose Level 211 MG/DL (74-106) H Calcium Level 7.4 MG/DL (8.5-10.1) L Phosphorus Level 3.3 MG/DL (2.5-4.9) Magnesium Level 1.8 MG/DL (1.8-2.4) Total Bilirubin 0.5 MG/DL (0.2-1.0) Aspartate Amino Transf (AST/SGOT) 24 U/L (15-37) Alanine Aminotransferase (ALT/SGPT) 27 U/L (12-78) Alkaline Phosphatase 121 U/L (46-116) H Troponin I 2.054 ng/mL (0.000-0.056) Pro-B-Type Natriuretic Peptide 61206 pg/mL (0-125) H Total Protein 5.3 G/DL (6.4-8.2) L Albumin 1.7 G/DL (3.4-5.0) L Globulin 3.6 g/dL Albumin/Globulin Ratio 0.5 (1.0-2.7) L Lit Cerna MD Feb 12, 2019 10:24
--- NOTE | 2019-02-12 10:54 | NUR ---
NURSE NOTES: Patient had black liquid bmx1, Inserted rectal tube per order.
--- NOTE | 2019-02-12 11:30 | Diagnostic Imaging Report ---
Indication: Dyspnea Comparison: 02/11/2019 A single view chest radiograph was obtained. Findings: Extensive airspace opacities present bilaterally without change. Nasogastric tube noted. Heart size is stable. 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
--- NOTE | 2019-02-12 12:05 | NUR ---
NURSE NOTES: bilateral soft wrist restraints removed. No skin breakdown noted. pulses present. Patient able to move bilateral upper extremities.
--- NOTE | 2019-02-12 12:18 | Nephrology Progress Note ---
Assessment/Plan Problem List: (1) Upper GI bleeding (2) Hemorrhagic shock (3) ESRF (end stage renal failure) (4) NSTEMI (non-ST elevated myocardial infarction) (5) Respiratory failure, acute (6) Lung mass Assessment admitted with massive GI bleed and hypotension ESRD : M W Fr h/o UTI now , on vent, respitatory failure Other medical conditions; Type 2 diabetes. Hypertension. h/o Anemia of chronic renal disease Hypercholesterolemia. Peripheral vascular disease. Alzheimer's dementia. ?? LUNG Pathology PAST SURGICAL HISTORY: 1. Right [id number] amputation. 2. Open reduction internal fixation Plan Plan: Zaroxyllin and Lasix on BIPAP PRN start EPO change protonix drip to IV q12h DC IV fluid to D5 HD 02/13 monitor H&h monitor troponin I monitor lytes and renal parameters antibiotics for uti start NTG Paste Subjective ROS Limited/Unobtainable: No Constitutional: Reports: malaise, weakness Objective Objective Last 24 Hour Vital Signs Date Time Temp Pulse Resp B/P (MAP) Pulse Ox O2 Delivery O2 Flow Rate FiO2 02/12/19 12:00 8.0 40 02/12/19 12:00 Venturi Mask Venturi Mask 02/12/19 12:00 98.6 78 26 111/68 (82) 100 02/12/19 11:16 118/73 02/12/19 11:16 86 118/73 02/12/19 11:00 88 23 123/70 (87) 99 02/12/19 10:00 86 27 118/73 (88) 100 02/12/19 09:47 125/64 02/12/19 09:00 87 27 125/64 (84) 98 02/12/19 08:00 85 02/12/19 08:00 98.5 85 24 109/57 (74) 94 02/12/19 08:00 Venturi Mask Venturi Mask 02/12/19 08:00 8.0 40 02/12/19 07:00 82 21 113/65 (81) 93 02/12/19 06:46 Venturi Mask 8.0 40 02/12/19 06:46 92 Venturi Mask 8.0 40 02/12/19 06:00 86 23 117/62 (80) 93 02/12/19 05:48 113/59 02/12/19 05:48 92 113/59 02/12/19 05:00 85 25 116/58 (77) 100 02/12/19 04:00 40 02/12/19 04:00 Venturi Mask Venturi Mask 02/12/19 04:00 98.4 81 21 103/62 (76) 100 02/12/19 04:00 81 02/12/19 03:06 79 18 100 Facial 40 02/12/19 03:00 80 20 101/54 (70) 100 02/12/19 02:00 78 21 99/56 (70) 100 02/12/19 01:12 80 20 100 Facial 40 02/12/19 01:00 80 20 106/61 (76) 100 02/12/19 00:00 40 02/12/19 00:00 84 02/12/19 00:00 Venturi Mask Venturi Mask 02/12/19 00:00 96/52 02/12/19 00:00 85 96/52 02/12/19 00:00 98.6 84 19 97/56 (70) 97 02/11/19 23:02 95 24 100 Facial 40 02/11/19 23:00 97 26 109/57 (74) 96 02/11/19 22:00 99 25 117/68 (84) 96 02/11/19 21:00 97 25 110/65 (80) 97 02/11/19 20:00 99 02/11/19 20:00 Venturi Mask Venturi Mask 02/11/19 20:00 12.0 50 02/11/19 20:00 98.7 99 25 113/70 (84) 96 02/11/19 19:16 Venturi Mask 8.0 40 02/11/19 19:16 100 Venturi Mask 8.0 40 02/11/19 19:00 75 22 105/68 (80) 100 02/11/19 18:00 99/56 02/11/19 18:00 95 99/56 02/11/19 18:00 77 22 95/55 (68) 100 02/11/19 17:00 80 22 99/56 (70) 100 02/11/19 16:00 98.7 84 22 104/60 (75) 100 02/11/19 16:00 Bi-pap Bi-pap 02/11/19 16:00 12.0 50 02/11/19 16:00 86 02/11/19 15:00 81 22 98/55 (69) 100 02/11/19 14:00 84 22 105/54 (71) 100 02/11/19 13:00 85 22 110/55 (73) 100 Intake and Output 02/11/19 02/12/19 19:00 07:00 Intake Total 655 ml 912.5 ml Output Total 86 ml 210 ml Balance 569 ml 702.5 ml IV Total 655 ml 742.5 ml Tube Feeding 170 ml Output Urine Total 86 ml 210 ml Gastric Drainage Total 0 ml # Bowel Movements 3 2 Laboratory Tests 02/12/19 03:35: White Blood Count 14.0H, Red Blood Count 2.96L, Hemoglobin 8.5L, Hematocrit 26.5L, Mean Corpuscular Volume 90, Mean Corpuscular Hemoglobin 28.8, Mean Corpuscular Hemoglobin Concent 32.2, Red Cell Distribution Width 15.1H, Platelet Count 216, Mean Platelet Volume 10.1, Neutrophils (%) (Auto) 83.2H, Lymphocytes (%) (Auto) 6.0L, Monocytes (%) (Auto) 4.6, Eosinophils (%) (Auto) 5.8H, Basophils (%) (Auto) 0.3, Sodium Level 143, Potassium Level 3.7, Chloride Level 106, Carbon Dioxide Level 21, Anion Gap 16H, Blood Urea Nitrogen 63H, Creatinine 4.0H, Estimat Glomerular Filtration Rate 13.6, Glucose Level 211H, Calcium Level 7.4L, Phosphorus Level 3.3, Magnesium Level 1.8, Total Bilirubin 0.5, Aspartate Amino Transf (AST/SGOT) 24, Alanine Aminotransferase (ALT/SGPT) 27, Alkaline Phosphatase 121H, Troponin I 2.054H, Pro-B-Type Natriuretic Peptide 27019T, Total Protein 5.3L, Albumin 1.7L, Globulin 3.6, Albumin/ Globulin Ratio 0.5L Height (Feet): 5 Height (Inches): 6.00 Weight (Pounds): 169 Respiratory/Chest: decreased breath sounds Marques Motta MD Feb 12, 2019 12:18
--- NOTE | 2019-02-12 12:25 | NUR ---
NURSE NOTES: Spoke with Stefan at [facility] dialysis center, informed dialysis order for tomorrow.
--- NOTE | 2019-02-12 12:34 | GI Progress Note ---
Assessment/Plan Problems: (1) Upper GI bleeding ICD Codes: K92.2 - Gastrointestinal hemorrhage, unspecified SNOMED: 47414214 (2) Hemorrhagic shock ICD Codes: R57.8 - Hemorrhagic shock SNOMED: 872744 (3) Anemia ICD Codes: D64.9 - Anemia, unspecified SNOMED: 118717317 Status: unchanged Status Narrative Discussed with Dr. Herrera. Assessment/Plan s/p EGD SUMMARY OF FINDINGS: Most probably bleeding from the polypectomy site status post epinephrine injection, hemoclip placement, and epinephrine washed. stable H&H cdiff positive NGTFs to goal ASA dc ppi, add H2B abx per ID monitor H&H, prn transfusion follow labs The patient was seen and examined at bedside and all new and available data was reviewed in the patients chart. I agree with the above findings, impression and plan. (Patient seen earlier today. Signature stamp does not reflect patient encounter time.). - Fabrizio Herrera MD Subjective Subjective Limited Objective Last 24 Hour Vital Signs Date Time Temp Pulse Resp B/P (MAP) Pulse Ox O2 Delivery O2 Flow Rate FiO2 02/12/19 12:00 8.0 40 02/12/19 12:00 Venturi Mask Venturi Mask 02/12/19 12:00 98.6 78 26 111/68 (82) 100 02/12/19 11:16 118/73 02/12/19 11:16 86 118/73 02/12/19 11:00 88 23 123/70 (87) 99 02/12/19 10:00 86 27 118/73 (88) 100 02/12/19 09:47 125/64 02/12/19 09:00 87 27 125/64 (84) 98 02/12/19 08:00 85 02/12/19 08:00 98.5 85 24 109/57 (74) 94 02/12/19 08:00 Venturi Mask Venturi Mask 02/12/19 08:00 8.0 40 02/12/19 07:00 82 21 113/65 (81) 93 02/12/19 06:46 Venturi Mask 8.0 40 02/12/19 06:46 92 Venturi Mask 8.0 40 02/12/19 06:00 86 23 117/62 (80) 93 02/12/19 05:48 113/59 02/12/19 05:48 92 113/59 02/12/19 05:00 85 25 116/58 (77) 100 02/12/19 04:00 40 02/12/19 04:00 Venturi Mask Venturi Mask 02/12/19 04:00 98.4 81 21 103/62 (76) 100 02/12/19 04:00 81 02/12/19 03:06 79 18 100 Facial 40 02/12/19 03:00 80 20 101/54 (70) 100 02/12/19 02:00 78 21 99/56 (70) 100 02/12/19 01:12 80 20 100 Facial 40 02/12/19 01:00 80 20 106/61 (76) 100 02/12/19 00:00 40 02/12/19 00:00 84 02/12/19 00:00 Venturi Mask Venturi Mask 02/12/19 00:00 96/52 02/12/19 00:00 85 96/52 02/12/19 00:00 98.6 84 19 97/56 (70) 97 02/11/19 23:02 95 24 100 Facial 40 02/11/19 23:00 97 26 109/57 (74) 96 02/11/19 22:00 99 25 117/68 (84) 96 02/11/19 21:00 97 25 110/65 (80) 97 02/11/19 20:00 99 02/11/19 20:00 Venturi Mask Venturi Mask 02/11/19 20:00 12.0 50 02/11/19 20:00 98.7 99 25 113/70 (84) 96 02/11/19 19:16 Venturi Mask 8.0 40 02/11/19 19:16 100 Venturi Mask 8.0 40 02/11/19 19:00 75 22 105/68 (80) 100 02/11/19 18:00 99/56 02/11/19 18:00 95 99/56 02/11/19 18:00 77 22 95/55 (68) 100 02/11/19 17:00 80 22 99/56 (70) 100 02/11/19 16:00 98.7 84 22 104/60 (75) 100 02/11/19 16:00 Bi-pap Bi-pap 02/11/19 16:00 12.0 50 02/11/19 16:00 86 02/11/19 15:00 81 22 98/55 (69) 100 02/11/19 14:00 84 22 105/54 (71) 100 02/11/19 13:00 85 22 110/55 (73) 100 Intake and Output 02/11/19 02/12/19 19:00 07:00 Intake Total 655 ml 912.5 ml Output Total 86 ml 210 ml Balance 569 ml 702.5 ml IV Total 655 ml 742.5 ml Tube Feeding 170 ml Output Urine Total 86 ml 210 ml Gastric Drainage Total 0 ml # Bowel Movements 3 2 Laboratory Tests Test 02/12/19 03:35 White Blood Count 14.0 K/UL (4.8-10.8) H Red Blood Count 2.96 M/UL (4.20-5.40) L Hemoglobin 8.5 G/DL (12.0-16.0) L Hematocrit 26.5 % (37.0-47.0) L Mean Corpuscular Volume 90 FL (80-99) Mean Corpuscular Hemoglobin 28.8 PG (27.0-31.0) Mean Corpuscular Hemoglobin Concent 32.2 G/DL (32.0-36.0) Red Cell Distribution Width 15.1 % (11.6-14.8) H Platelet Count 216 K/UL (150-450) Mean Platelet Volume 10.1 FL (6.5-10.1) Neutrophils (%) (Auto) 83.2 % (45.0-75.0) H Lymphocytes (%) (Auto) 6.0 % (20.0-45.0) L Monocytes (%) (Auto) 4.6 % (1.0-10.0) Eosinophils (%) (Auto) 5.8 % (0.0-3.0) H Basophils (%) (Auto) 0.3 % (0.0-2.0) Sodium Level 143 MMOL/L (136-145) Potassium Level 3.7 MMOL/L (3.5-5.1) Chloride Level 106 MMOL/L (98-107) Carbon Dioxide Level 21 MMOL/L (21-32) Anion Gap 16 mmol/L (5-15) H Blood Urea Nitrogen 63 mg/dL (7-18) H Creatinine 4.0 MG/DL (0.55-1.30) H Estimat Glomerular Filtration Rate 13.6 mL/min (>60) Glucose Level 211 MG/DL (74-106) H Calcium Level 7.4 MG/DL (8.5-10.1) L Phosphorus Level 3.3 MG/DL (2.5-4.9) Magnesium Level 1.8 MG/DL (1.8-2.4) Total Bilirubin 0.5 MG/DL (0.2-1.0) Aspartate Amino Transf (AST/SGOT) 24 U/L (15-37) Alanine Aminotransferase (ALT/SGPT) 27 U/L (12-78) Alkaline Phosphatase 121 U/L (46-116) H Troponin I 2.054 ng/mL (0.000-0.056) C-Reactive Protein, Quantitative Pending Pro-B-Type Natriuretic Peptide 27183 pg/mL (0-125) H Total Protein 5.3 G/DL (6.4-8.2) L Albumin 1.7 G/DL (3.4-5.0) L Globulin 3.6 g/dL Albumin/Globulin Ratio 0.5 (1.0-2.7) L Microbiology Date/Time Source Procedure Growth Status 02/12/19 00:00 Stool Clostridium difficile Toxin Assay - Final Complete Height (Feet): 5 Height (Inches): 6.00 Weight (Pounds): 169 General Appearance: no apparent distress, other Cardiovascular: normal rate Respiratory/Chest: normal breath sounds, no respiratory distress, other - venturi mask Abdominal Exam: normal bowel sounds, non tender, soft, other - NGT Extremities: non-tender Rachel Simpson NP Feb 12, 2019 12:34
[2019-02-12] MEDS: Vancomycin oral 125mg/2.5ml NG SCH ×3 (13:02→21:21)
--- NOTE | 2019-02-12 13:17 | NUR ---
NURSE NOTES: Lasix 10mg x1 given. raphael cath intact and patent, draining yellow urine by gravity. will continue to monitor.
--- NOTE | 2019-02-12 13:22 | NUR ---
GUM SPRAYERDOG BREEDER SI:GI BLEED VS: BP 104/59,P 81, T 98.6, RR 27, SpO2 100 on V. Mask 8.0L FiO2 40 WBC 14.0, RBC 2.96, Hgb 8.5, Hct 26.5, BUN 63. CR 4.0 CXR Extensive airspace disease again demonstrated bilaterally without improvement, possibly slightly worse. NG tube again noted. IS:EPOETIN HANNAH SUBQ VANCOMYCIN 125mg NG LASIX 100mG IV METOPROLOL 57.5 ml IVPB D5 x1L IV PIPERACILLIN / TAZOBACTAM 55ml IVPB ICU STATUS
--- NOTE | 2019-02-12 13:41 | Infectious Diseases Prog Note ---
Assessment/Plan Assessment/Plan Abx: Zosyn 02/07- Assessment: Hypotension , SP- 2ry to massive GIB Leukocytosis, improving- in the setting of above and aspiration PNA and Cdiff -02/12 CXR: Extensive airspace opacities present bilaterally without change -CXR: Interval worsening bilateral airspace opacities, more consolidated in the right upper lobe Query small right pleural effusion. -sp cx normal resp annabelle to date Cdiff colitis -Cdiff toxin A/b EIA + Fever, SP Acute respiratory failure s/p intubation 02/06 (for airway protection), s/p extubated 02/07; now no VM CONS bacteremia; likely contaminant -02/05 Bcx / CONS; 02/10 Bcx NTD hx of ESBL UTI ESRD on HD GERD Dm2 CVA w/ R side weakness HTN HLD PVD s/p AKA Alzheimer dementia lung mass multiple gastric polyps s/p polypectomy gastric antral vascular ectasis DVT NH resident Plan: -Switch empiric Zosyn #6/7 to Ceftriaxone for probable PNA in view of no isolation resistant organisms and now Cdiff -Start PO Vancomycin 125mg qid #11/28-14 -f/u Bcx x2, SP cx -f.u cx -Monitor CBC/CMP, temperatures -aspiration precautions -ICU care Thank you for this consultation. Will continue to follow along with you. Subjective Allergies: Coded Allergies: No Known Allergies (Unverified , 09/15/16) Subjective afebrile wbc improving repeat Bcx NTD Cdiff + Objective Vital Signs Last 24 Hour Vital Signs Date Time Temp Pulse Resp B/P (MAP) Pulse Ox O2 Delivery O2 Flow Rate FiO2 02/12/19 13:00 81 23 104/59 (74) 97 02/12/19 12:00 8.0 40 02/12/19 12:00 Venturi Mask Venturi Mask 02/12/19 12:00 98.6 78 26 111/68 (82) 100 02/12/19 11:16 118/73 02/12/19 11:16 86 118/73 02/12/19 11:00 88 23 123/70 (87) 99 02/12/19 10:00 86 27 118/73 (88) 100 02/12/19 09:47 125/64 02/12/19 09:00 87 27 125/64 (84) 98 02/12/19 08:00 85 02/12/19 08:00 98.5 85 24 109/57 (74) 94 02/12/19 08:00 Venturi Mask Venturi Mask 02/12/19 08:00 8.0 40 02/12/19 07:00 82 21 113/65 (81) 93 02/12/19 06:46 Venturi Mask 8.0 40 02/12/19 06:46 92 Venturi Mask 8.0 40 02/12/19 06:00 86 23 117/62 (80) 93 02/12/19 05:48 113/59 02/12/19 05:48 92 113/59 02/12/19 05:00 85 25 116/58 (77) 100 02/12/19 04:00 40 02/12/19 04:00 Venturi Mask Venturi Mask 02/12/19 04:00 98.4 81 21 103/62 (76) 100 02/12/19 04:00 81 02/12/19 03:06 79 18 100 Facial 40 02/12/19 03:00 80 20 101/54 (70) 100 02/12/19 02:00 78 21 99/56 (70) 100 02/12/19 01:12 80 20 100 Facial 40 02/12/19 01:00 80 20 106/61 (76) 100 02/12/19 00:00 40 02/12/19 00:00 84 02/12/19 00:00 Venturi Mask Venturi Mask 02/12/19 00:00 96/52 02/12/19 00:00 85 96/52 02/12/19 00:00 98.6 84 19 97/56 (70) 97 02/11/19 23:02 95 24 100 Facial 40 02/11/19 23:00 97 26 109/57 (74) 96 02/11/19 22:00 99 25 117/68 (84) 96 02/11/19 21:00 97 25 110/65 (80) 97 02/11/19 20:00 99 02/11/19 20:00 Venturi Mask Venturi Mask 02/11/19 20:00 12.0 50 02/11/19 20:00 98.7 99 25 113/70 (84) 96 02/11/19 19:16 Venturi Mask 8.0 40 02/11/19 19:16 100 Venturi Mask 8.0 40 02/11/19 19:00 75 22 105/68 (80) 100 02/11/19 18:00 99/56 02/11/19 18:00 95 99/56 02/11/19 18:00 77 22 95/55 (68) 100 02/11/19 17:00 80 22 99/56 (70) 100 02/11/19 16:00 98.7 84 22 104/60 (75) 100 02/11/19 16:00 Bi-pap Bi-pap 02/11/19 16:00 12.0 50 02/11/19 16:00 86 02/11/19 15:00 81 22 98/55 (69) 100 02/11/19 14:00 84 22 105/54 (71) 100 Height (Feet): 5 Height (Inches): 6.00 Weight (Pounds): 169 Objective GENERAL: Shows to be elderly female, on BiPAP therapy. NECK: Supple. No jugular venous distention. LUNGS: She does show some crackles and rhonchi. CARDIAC: Regular rhythm. Tachycardic. No heaves or thrills. ABDOMEN: Soft and nontender. Positive bowel sounds. EXTREMITIES: Right above-knee amputation Microbiology Date/Time Source Procedure Growth Status 02/10/19 15:04 Blood Blood Culture - Preliminary NO GROWTH AFTER 24 HOURS Resulted 02/10/19 15:00 Blood Blood Culture - Preliminary NO GROWTH AFTER 24 HOURS Resulted 02/10/19 20:55 Sputum Expectorated Gram Stain - Final Resulted 02/10/19 20:55 Sputum Expectorated Sputum Culture - Preliminary NORMAL UPPER RESPIRATORY ANNABELLE AT 24 ... Resulted 02/12/19 00:00 Stool Clostridium difficile Toxin Assay - Final Complete Laboratory Tests Test 02/12/19 03:35 White Blood Count 14.0 K/UL (4.8-10.8) H Red Blood Count 2.96 M/UL (4.20-5.40) L Hemoglobin 8.5 G/DL (12.0-16.0) L Hematocrit 26.5 % (37.0-47.0) L Mean Corpuscular Volume 90 FL (80-99) Mean Corpuscular Hemoglobin 28.8 PG (27.0-31.0) Mean Corpuscular Hemoglobin Concent 32.2 G/DL (32.0-36.0) Red Cell Distribution Width 15.1 % (11.6-14.8) H Platelet Count 216 K/UL (150-450) Mean Platelet Volume 10.1 FL (6.5-10.1) Neutrophils (%) (Auto) 83.2 % (45.0-75.0) H Lymphocytes (%) (Auto) 6.0 % (20.0-45.0) L Monocytes (%) (Auto) 4.6 % (1.0-10.0) Eosinophils (%) (Auto) 5.8 % (0.0-3.0) H Basophils (%) (Auto) 0.3 % (0.0-2.0) Sodium Level 143 MMOL/L (136-145) Potassium Level 3.7 MMOL/L (3.5-5.1) Chloride Level 106 MMOL/L (98-107) Carbon Dioxide Level 21 MMOL/L (21-32) Anion Gap 16 mmol/L (5-15) H Blood Urea Nitrogen 63 mg/dL (7-18) H Creatinine 4.0 MG/DL (0.55-1.30) H Estimat Glomerular Filtration Rate 13.6 mL/min (>60) Glucose Level 211 MG/DL (74-106) H Calcium Level 7.4 MG/DL (8.5-10.1) L Phosphorus Level 3.3 MG/DL (2.5-4.9) Magnesium Level 1.8 MG/DL (1.8-2.4) Total Bilirubin 0.5 MG/DL (0.2-1.0) Aspartate Amino Transf (AST/SGOT) 24 U/L (15-37) Alanine Aminotransferase (ALT/SGPT) 27 U/L (12-78) Alkaline Phosphatase 121 U/L (46-116) H Troponin I 2.054 ng/mL (0.000-0.056) C-Reactive Protein, Quantitative 17.8 mg/dL (0.00-0.90) H Pro-B-Type Natriuretic Peptide 75442 pg/mL (0-125) H Total Protein 5.3 G/DL (6.4-8.2) L Albumin 1.7 G/DL (3.4-5.0) L Globulin 3.6 g/dL Albumin/Globulin Ratio 0.5 (1.0-2.7) L Current Medications Medications (Trade) Dose Ordered Sig/Althea Route PRN Reason Start Time Stop Time Status Last Admin Dose Admin Acetaminophen (Tylenol) 650 mg Q4H PRN ORAL T>100.5 02/06/19 10:30 03/08/19 10:29 Aspirin (ASA) 81 mg DAILY NG 02/10/19 09:00 03/12/19 08:59 02/12/19 08:24 Dextrose (Dextrose 50%) 25 ml Q30M PRN IV Hypoglycemia 02/06/19 10:30 03/08/19 10:29 Dextrose (Dextrose 50%) 50 ml Q30M PRN IV Hypoglycemia 02/06/19 10:30 03/08/19 10:29 Diphenhydramine HCl (Benadryl) 25 mg Q6H PRN ORAL Itching/Pruritis 02/06/19 10:30 03/08/19 10:29 Dopamine HCl/ Dextrose 250 ml @ 0 mls/hr Q24H IV 02/06/19 10:30 03/08/19 10:29 Epoetin Romeo (Epoetin Romeo(ESRD on dialysis)) 10,000 unit SUN-SUN-SUN SUBQ 02/12/19 21:00 03/14/19 20:59 Famotidine (Pepcid I.v.) 20 mg Q12HR IVP 02/12/19 21:00 03/14/19 20:59 Furosemide (Lasix) 100 mg ONCE IV 02/12/19 12:30 02/12/19 14:00 02/12/19 13:02 Metoprolol Tartrate 2.5 mg/ Dextrose 57.5 ml @ 130 mls/hr Q6HR IVPB 02/09/19 12:00 03/11/19 11:59 02/12/19 11:16 Morphine Sulfate (Morphine Sulfate) 2 mg Q4H PRN IVP Severe Pain (Pain Scale 7-10) 02/06/19 10:30 02/13/19 10:29 02/07/19 21:51 Nitroglycerin (Nitro-Bid) 2 inch Q6HR TOPIC 02/10/19 12:00 03/10/19 17:59 02/12/19 11:16 Nitroglycerin (Ntg) 0.4 mg Q5M X 3 DOSES PRN SL Prn Chest Pain 02/06/19 10:30 03/08/19 10:29 Ondansetron HCl (Zofran) 4 mg Q6H PRN IVP Nausea & Vomiting 02/06/19 10:30 03/08/19 10:29 Piperacillin Sod/ Tazobactam Sod 2.25 gm/Dextrose 55 ml @ 110 mls/hr Q8HR IVPB 02/07/19 20:00 02/14/19 19:59 02/12/19 13:01 Polyethylene Glycol (Miralax) 17 gm HSPRN PRN ORAL Constipation 02/06/19 21:00 03/08/19 20:59 Temazepam (Restoril) 15 mg HSPRN PRN ORAL Insomnia 02/06/19 21:00 02/13/19 20:59 Vancomycin HCl (Firvanq) 125 mg FOUR TIMES A DAY NG 02/12/19 13:00 02/19/19 12:59 02/12/19 13:02 Daisy Arce M.D. Feb 12, 2019 13:41
--- NOTE | 2019-02-12 15:08 | NUR ---
NURSE NOTES: patient tolerating tube feeding, rate increased to 35ml/hr, 5ml residual noted. HOB elevated.
--- NOTE | 2019-02-12 17:30 | NUR ---
NURSE NOTES: Oral care and raphael care provided. VSS. No acute distress noted. Patient was turned and repositioned.
--- NOTE | 2019-02-12 18:00 | NUR ---
NURSE NOTES: rectal tube was leaking. patient had black diarrhea. repositioned rectal tube. pt kept clean and dry.
--- NOTE | 2019-02-12 19:22 | NUR ---
HAND-OFF: Report given to MAYO Fitzgerald.
--- NOTE | 2019-02-12 19:30 | NUR ---
NURSE NOTES:Received pt awake, appeared fatigue, on 40% ventimask, resp even and spont. BS + bilateral , lung sounds rhonci noted bilateral. Pt occasionally coughing out productive cough. Oral suction was done and able to obtain tk beige secretions moderate in amt. 02 sat 99%, HOB kept elevated. watch for any resp. distress. Pt on SR on the monitor, Bp stable afebrile. both hands 3+ swollen elevated with pillow. Left arm AV shunt with good bruit. Pt Right AKA. otherwise skin is intact.RT forearm IV patent to IVPB. Rectal tube with blackish stool.and its leaking. Cleaned up pt. Will continue to monitor.
--- NOTE | 2019-02-12 20:30 | NUR ---
NURSE NOTES: Dr Franco was here and evaluated pt with orders given.
--- NOTE | 2019-02-12 20:40 | Cardiology Progress Note ---
Assessment/Plan Assessment/Plan 1. Edu-WM-esfijqdit myocardial infarction likely demand relatred 2. Recent gastrointestinal bleeding, hemoclip placement. 3. History of vomiting and possible aspiration. 4. Pneumonia. 5. Diabetes mellitus. 6. Tachycardia. 7. Anemia. 8. Leukocytosis, likely secondary to pneumonia. 9. End-stage renal disease, on hemodialysis. 10. Bacteremia contaminant cxr reviewed looks bilat infiltrates still but clincialy she is better tel sinus ekg no new ones performed trop down trending no off bipap on ngt feeding is on Ecotrin if needed bolus of ivf abx hgb stable on ecotrin imporved pulm lorenzana despite cxr being so abn Subjective Cardiovascular: Denies: chest pain, lightheadedness Respiratory: Denies: shortness of breath Gastrointestinal/Abdominal: Denies: abdominal pain Genitourinary: Denies: burning Objective Last 24 Hour Vital Signs Date Time Temp Pulse Resp B/P (MAP) Pulse Ox O2 Delivery O2 Flow Rate FiO2 02/12/19 19:00 80 19 106/55 (72) 98 02/12/19 18:00 81 23 109/55 (73) 100 02/12/19 17:46 87 122/70 02/12/19 17:45 122/70 02/12/19 17:00 86 24 122/70 (87) 100 02/12/19 16:00 Venturi Mask Venturi Mask 02/12/19 16:00 8.0 40 02/12/19 16:00 85 02/12/19 16:00 98.5 88 22 110/53 (72) 100 02/12/19 15:00 84 22 102/55 (71) 95 02/12/19 14:00 83 22 106/56 (73) 100 02/12/19 13:00 81 23 104/59 (74) 97 02/12/19 12:00 87 02/12/19 12:00 8.0 40 02/12/19 12:00 Venturi Mask Venturi Mask 02/12/19 12:00 98.6 78 26 111/68 (82) 100 02/12/19 11:16 118/73 02/12/19 11:16 86 118/73 02/12/19 11:00 88 23 123/70 (87) 99 02/12/19 10:00 86 27 118/73 (88) 100 02/12/19 09:47 125/64 02/12/19 09:00 87 27 125/64 (84) 98 02/12/19 08:00 85 02/12/19 08:00 98.5 85 24 109/57 (74) 94 02/12/19 08:00 Venturi Mask Venturi Mask 02/12/19 08:00 8.0 40 02/12/19 07:00 82 21 113/65 (81) 93 02/12/19 06:46 Venturi Mask 8.0 40 02/12/19 06:46 92 Venturi Mask 8.0 40 02/12/19 06:00 86 23 117/62 (80) 93 02/12/19 05:48 113/59 02/12/19 05:48 92 113/59 02/12/19 05:00 85 25 116/58 (77) 100 02/12/19 04:00 40 02/12/19 04:00 Venturi Mask Venturi Mask 02/12/19 04:00 98.4 81 21 103/62 (76) 100 02/12/19 04:00 81 02/12/19 03:06 79 18 100 Facial 40 02/12/19 03:00 80 20 101/54 (70) 100 02/12/19 02:00 78 21 99/56 (70) 100 02/12/19 01:12 80 20 100 Facial 40 02/12/19 01:00 80 20 106/61 (76) 100 02/12/19 00:00 40 02/12/19 00:00 84 02/12/19 00:00 Venturi Mask Venturi Mask 02/12/19 00:00 96/52 02/12/19 00:00 85 96/52 02/12/19 00:00 98.6 84 19 97/56 (70) 97 02/11/19 23:02 95 24 100 Facial 40 02/11/19 23:00 97 26 109/57 (74) 96 02/11/19 22:00 99 25 117/68 (84) 96 02/11/19 21:00 97 25 110/65 (80) 97 General Appearance: alert Cardiovascular: normal rate Respiratory/Chest: lungs clear Abdomen: normal bowel sounds, non tender, soft Extremities: no swelling Intake and Output 02/11/19 02/12/19 19:00 07:00 Intake Total 655 ml 912.5 ml Output Total 86 ml 210 ml Balance 569 ml 702.5 ml IV Total 655 ml 742.5 ml Tube Feeding 170 ml Output Urine Total 86 ml 210 ml Gastric Drainage Total 0 ml # Bowel Movements 3 2 Laboratory Tests Test 02/12/19 03:35 White Blood Count 14.0 K/UL (4.8-10.8) H Red Blood Count 2.96 M/UL (4.20-5.40) L Hemoglobin 8.5 G/DL (12.0-16.0) L Hematocrit 26.5 % (37.0-47.0) L Mean Corpuscular Volume 90 FL (80-99) Mean Corpuscular Hemoglobin 28.8 PG (27.0-31.0) Mean Corpuscular Hemoglobin Concent 32.2 G/DL (32.0-36.0) Red Cell Distribution Width 15.1 % (11.6-14.8) H Platelet Count 216 K/UL (150-450) Mean Platelet Volume 10.1 FL (6.5-10.1) Neutrophils (%) (Auto) 83.2 % (45.0-75.0) H Lymphocytes (%) (Auto) 6.0 % (20.0-45.0) L Monocytes (%) (Auto) 4.6 % (1.0-10.0) Eosinophils (%) (Auto) 5.8 % (0.0-3.0) H Basophils (%) (Auto) 0.3 % (0.0-2.0) Sodium Level 143 MMOL/L (136-145) Potassium Level 3.7 MMOL/L (3.5-5.1) Chloride Level 106 MMOL/L (98-107) Carbon Dioxide Level 21 MMOL/L (21-32) Anion Gap 16 mmol/L (5-15) H Blood Urea Nitrogen 63 mg/dL (7-18) H Creatinine 4.0 MG/DL (0.55-1.30) H Estimat Glomerular Filtration Rate 13.6 mL/min (>60) Glucose Level 211 MG/DL (74-106) H Calcium Level 7.4 MG/DL (8.5-10.1) L Phosphorus Level 3.3 MG/DL (2.5-4.9) Magnesium Level 1.8 MG/DL (1.8-2.4) Total Bilirubin 0.5 MG/DL (0.2-1.0) Aspartate Amino Transf (AST/SGOT) 24 U/L (15-37) Alanine Aminotransferase (ALT/SGPT) 27 U/L (12-78) Alkaline Phosphatase 121 U/L (46-116) H Troponin I 2.054 ng/mL (0.000-0.056) C-Reactive Protein, Quantitative 17.8 mg/dL (0.00-0.90) H Pro-B-Type Natriuretic Peptide 57404 pg/mL (0-125) H Total Protein 5.3 G/DL (6.4-8.2) L Albumin 1.7 G/DL (3.4-5.0) L Globulin 3.6 g/dL Albumin/Globulin Ratio 0.5 (1.0-2.7) L Microbiology Date/Time Source Procedure Growth Status 02/10/19 15:04 Blood Blood Culture - Preliminary NO GROWTH AFTER 24 HOURS Resulted 02/10/19 15:00 Blood Blood Culture - Preliminary NO GROWTH AFTER 24 HOURS Resulted 02/10/19 20:55 Sputum Expectorated Gram Stain - Final Resulted 02/10/19 20:55 Sputum Expectorated Sputum Culture - Preliminary NORMAL UPPER RESPIRATORY MOE AT 24 ... Resulted 02/12/19 00:00 Stool Clostridium difficile Toxin Assay - Final Complete Kaushik Franco MD Feb 12, 2019 20:40
[2019-02-12] MEDS ORDERED: Metoprolol Tartrate 2.5 MG in D5W 55 ML IVPB PRN (20:45)
[2019-02-12] MEDS ORDERED: cefTRIAXone 1 GM in D5W 55 ML IVPB SCH (21:00)
[2019-02-12] MEDS ORDERED: Epoetin Alfa(ESRD on dialysis)10,000 unit/ml vial SUBQ SCH (21:00)
--- NOTE | 2019-02-12 21:30 | NUR ---
NURSE NOTES:Back to BIPAP 10/23, with 02 30%. 02 sat 98-99%.-Denies any CP nor sOB
[2019-02-13] VITALS (11 sets, daily range): BP systolic 91–131; BP diastolic 51–78
--- NOTE | 2019-02-13 | NUR ---
NURSE NOTES:Complete bed bath with parrtial bed changed was done.
--- NOTE | 2019-02-13 01:34 | NUR ---
NURSE NOTES:Sleeping well at this time with TV on,
--- NOTE | 2019-02-13 02:30 | NUR ---
NURSE NOTES:turned q 2hrs prn with good skin care done.Skin remained intact.
--- NOTE | 2019-02-13 04:43 | NUR ---
NURSE NOTES:complete bath wth bed changed done.
[2019-02-13 05:23] LABS: BASOPHILS % (AUTO) 0.6 % (0.0-2.0); EOSINOPHILS % (AUTO) 6.6 % (0.0-3.0); HEMATOCRIT 26.3 % (37.0-47.0); HEMOGLOBIN 8.5 G/DL (12.0-16.0); LYMPHOCYTES % (AUTO) 6.3 % (20.0-45.0); MEAN CORPUSCULAR VOLUME 90 FL (80-99); MONOCYTES % (AUTO) 5.5 % (1.0-10.0); NEUTROPHILS % (AUTO) 81.1 % (45.0-75.0); PLATELET COUNT 286 K/UL (150-450); RED BLOOD COUNT 2.93 M/UL (4.20-5.40); RED CELL DISTRIBUTION WIDTH 15.1 % (11.6-14.8); WHITE BLOOD COUNT 13.3 K/UL (4.8-10.8)
[2019-02-13 05:42] LABS: PHOSPHORUS 2.9 MG/DL (2.5-4.9)
[2019-02-13 05:43] LABS: ALANINE AMINOTRANSFERASE 31 U/L (12-78); ALBUMIN 1.6 G/DL (3.4-5.0); ALBUMIN/GLOBULIN RATIO 0.4 (1.0-2.7); ALKALINE PHOSPHATASE 114 U/L (46-116); ANION GAP 13 mmol/L (5-15); ASPARTATE AMINO TRANSFERASE 21 U/L (15-37); BILIRUBIN,TOTAL 0.2 MG/DL (0.2-1.0); BLOOD UREA NITROGEN 68 mg/dL (7-18); CALCIUM 7.6 MG/DL (8.5-10.1); CARBON DIOXIDE 23 MMOL/L (21-32); CHLORIDE 106 MMOL/L (98-107); CREATININE 4.3 MG/DL (0.55-1.30); POTASSIUM 3.3 MMOL/L (3.5-5.1); SODIUM 142 MMOL/L (136-145)
[2019-02-13] MEDS: Nitroglycerin 2% oint pkt TOPIC SCH ×3 (05:56→17:53)
--- NOTE | 2019-02-13 06:30 | NUR ---
INTER-FACILITY TRANSFER: Patient transferred to 234, per Dr Cerna. Report given to Sia HUBER. Patient transferred with valuables and medications. Belongings verified upon transferr and given to. Family/S.O. notified of transfer.
--- NOTE | 2019-02-13 06:30 | NUR ---
NURSE NOTES:Trnsfer pt to Rm 234 via bed with vss.
--- NOTE | 2019-02-13 06:54 | NUR ---
NURSE NOTES: Received patient from MAYO Fitzgerald. Patient AO2-3 NAD in bed watching TV. IV flushed and patent. Venturi mask on; 30%; 6L. Rectal tube intact and patent; draining well to gravity. Yanez intact and patent; draining well to gravity. NG tube in right nare; feeding running as prescribed; HOB raised per protocol. Left upper arm shunt noted with bruit. Right BKA noted. Bed at lowest position; bed alarm on; side rails raised x3. Call light within reach. Oriented to room and unit. Belongings list completed with transferring RN.
[2019-02-13] MEDS ORDERED: Nitroglycerin Subl 0.4mg tab SL PRN (07:30)
--- NOTE | 2019-02-13 07:31 | NUR ---
HAND-OFF: Report given to MAYO Malave. Patient in stable condition. Plan of care endorsed.
--- NOTE | 2019-02-13 07:58 | NUR ---
HAND-OFF: Report given to given to sabi.
--- NOTE | 2019-02-13 07:59 | NUR ---
NURSE NOTES: Received patient in bed. On Venturi mask FiO2 of 30%. With ongoing NGTF as tolerated. Contact isolation observed.
[2019-02-13] MEDS ORDERED: Morphine Sulfate 2mg/ml Inj(IV/IM USE ONLY) IVP PRN (08:00)
[2019-02-13] MEDS ORDERED: Metoprolol Tartrate 2.5 MG in D5W 55 ML IVPB PRN (08:45)
--- NOTE | 2019-02-13 08:51 | NUR ---
RADIOLOGY DEPT., CHEST X-RAY DONE.-P.DYE
[2019-02-13] MEDS: Vancomycin oral 125mg/2.5ml NG SCH ×4 (08:56→20:49)
[2019-02-13] MEDS ORDERED: Aspirin Baby 81mg NG SCH (09:00)
[2019-02-13] MEDS ORDERED: DOPamine 400mg/250ml 250 ML IV SCH (10:30)
--- NOTE | 2019-02-13 10:45 | NUR ---
RD ASSESSMENT & RECOMMENDATIONS SEE CARE ACTIVITY FOR COMPLETE ASSESSMENT DAILY ESTIMATED NEEDS: Needs based on ESRD W/ HD/ 65.8kg 28-30 kcals/kg [id number] total kcals 1.25-1.8 g protein/kg 82-118 g total protein Fluid per MD, on HD mL/kg . total fluid mLs NUTRITION DIAGNOSIS: (1) Increased kcal/pro needs R/T renal dysfunction as evidenced by pt w/ ESRD dx, on HD (2) Swallowing difficulty R/T dysphagia w/ h/o CVA as evidenced by pt on mechanically altered texture diet during prev adm, now s/p extubation, on venturi mask, on NGT feeding. CURRENT TF:Nepro @ 55ml/hr x 24 hrs PO DIET RECOMMENDATIONS: IF SAFE FOR PO-> RENAL, CCHO MED/ texture per SWITCH CLEANER ENTERAL NUTRITION RECOMMENDATIONS: Nepro @ 45ml/hr x 24 hrs to provide 1080ml, 1944kcal, 87g prot, 785ml free water * DECREASE TF rate to 45ml/hr x 24 hrs -> meets 100% est kcal/prot needs * HOB over 30 degrees/ water flush per MD ADDITIONAL RECOMMENDATIONS: * Obtain dry weight (after dialysis) on CALIBRATED bedscale * SWITCH CLEANER eval for possible oral diet initiation * Rec accucheck w/ SSI - h/o DM, BGs in the 200's -> consider hypoglycemic agents for BG control * Monitor lytes, replete as needed (low K at this time)
--- NOTE | 2019-02-13 11:10 | Pulmonology Progress Note ---
Assessment/Plan Problems: (1) C. 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 dvt prophylaxis isolation for C-diff Subjective ROS Limited/Unobtainable: No Interval Events: awake, comfortable Allergies: Coded Allergies: No Known Allergies (Unverified , 09/15/16) Objective Last 24 Hour Vital Signs Date Time Temp Pulse Resp B/P (MAP) Pulse Ox O2 Delivery O2 Flow Rate FiO2 02/13/19 08:00 98.1 86 18 111/62 (78) 97 02/13/19 08:00 Venturi Mask Venturi Mask 02/13/19 07:52 80 02/13/19 07:30 97 Venturi Mask 6.0 30 02/13/19 07:30 Venturi Mask 6.0 30 02/13/19 06:00 80 20 121/55 (77) 98 02/13/19 05:56 110/60 02/13/19 05:08 74 24 99 Facial 30 02/13/19 05:00 82 20 122/55 (77) 98 02/13/19 04:00 Venturi Mask Venturi Mask 02/13/19 04:00 6.0 30 02/13/19 04:00 82 02/13/19 04:00 98.0 79 20 105/55 (72) 98 02/13/19 03:09 79 21 100 Facial 30 02/13/19 03:00 79 20 103/55 (71) 98 02/13/19 02:00 82 20 91/51 (64) 98 02/13/19 01:00 84 20 104/63 (77) 98 02/13/19 00:50 83 23 100 Facial 30 02/13/19 00:00 98.4 81 20 104/63 (77) 98 02/13/19 00:00 6.0 30 02/13/19 00:00 Venturi Mask Venturi Mask 02/13/19 00:00 86 02/12/19 23:50 108/58 02/12/19 23:00 80 20 108/55 (72) 98 02/12/19 22:16 82 18 100 30 02/12/19 22:00 81 20 104/58 (73) 98 02/12/19 21:00 86 19 105/60 (75) 98 02/12/19 20:00 84 02/12/19 20:00 6.0 30 02/12/19 20:00 98.0 84 19 108/60 (76) 98 02/12/19 20:00 Venturi Mask Venturi Mask 02/12/19 19:00 Venturi Mask 8.0 40 02/12/19 19:00 80 19 106/55 (72) 98 02/12/19 19:00 100 Venturi Mask 8.0 40 02/12/19 18:00 81 23 109/55 (73) 100 02/12/19 17:46 87 122/70 02/12/19 17:45 122/70 02/12/19 17:00 86 24 122/70 (87) 100 02/12/19 16:00 Venturi Mask Venturi Mask 02/12/19 16:00 8.0 40 02/12/19 16:00 85 02/12/19 16:00 98.5 88 22 110/53 (72) 100 02/12/19 15:00 84 22 102/55 (71) 95 02/12/19 14:00 83 22 106/56 (73) 100 02/12/19 13:00 81 23 104/59 (74) 97 02/12/19 12:00 87 02/12/19 12:00 8.0 40 02/12/19 12:00 Venturi Mask Venturi Mask 02/12/19 12:00 98.6 78 26 111/68 (82) 100 02/12/19 11:16 118/73 02/12/19 11:16 86 118/73 Intake and Output 02/12/19 02/13/19 18:59 06:59 Intake Total 975.0 ml 630 ml Output Total 360 ml 740 ml Balance 615.0 ml -110 ml Free Water 110 ml 70 ml IV Total 495.0 ml 55 ml Tube Feeding 370 ml 505 ml Output Urine Total 360 ml 740 ml # Bowel Movements 4 3 General Appearance: WD/WN HEENT: normocephalic, atraumatic Respiratory/Chest: chest wall non-tender, lungs clear Cardiovascular: normal rate Abdomen: normal bowel sounds, soft, non tender Genitourinary: normal external genitalia Skin: no rash Neurologic/Psychiatric: cost specialist II-XII grossly normal, no motor/sensory deficits Lymphatic: no neck adenopathy Microbiology Date/Time Source Procedure Growth Status 02/10/19 15:04 Blood Blood Culture - Preliminary NO GROWTH AFTER 48 HOURS Resulted 02/10/19 15:00 Blood Blood Culture - Preliminary NO GROWTH AFTER 48 HOURS Resulted 02/10/19 20:55 Sputum Expectorated Gram Stain - Final Complete 02/10/19 20:55 Sputum Expectorated Sputum Culture - Final NORMAL UPPER RESPIRATORY MOE PRESENT Complete 02/12/19 00:00 Stool Clostridium difficile Toxin Assay - Final Complete Laboratory Tests 02/13/19 04:20: White Blood Count 13.3H, Red Blood Count 2.93L, Hemoglobin 8.5L, Hematocrit 26.3L, Mean Corpuscular Volume 90, Mean Corpuscular Hemoglobin 29.1, Mean Corpuscular Hemoglobin Concent 32.4, Red Cell Distribution Width 15.1H, Platelet Count 286, Mean Platelet Volume 10.3H, Neutrophils (%) (Auto) 81.1H, Lymphocytes (%) (Auto) 6.3L, Monocytes (%) (Auto) 5.5, Eosinophils (%) (Auto) 6.6H, Basophils (%) (Auto) 0.6, Sodium Level 142, Potassium Level 3.3L, Chloride Level 106, Carbon Dioxide Level 23, Anion Gap 13, Blood Urea Nitrogen 68H, Creatinine 4.3H, Estimat Glomerular Filtration Rate 12.5, Glucose Level 201H, Calcium Level 7.6L, Phosphorus Level 2.9, Magnesium Level 2.1, Total Bilirubin 0.2, Aspartate Amino Transf (AST/SGOT) 21, Alanine Aminotransferase ( ALT/SGPT) 31, Alkaline Phosphatase 114, Troponin I 1.484H, Pro-B-Type Natriuretic Peptide 97800Y, Total Protein 5.4L, Albumin 1.6L, Globulin 3.8, Albumin/Globulin Ratio 0.4L Current Medications Medications (Trade) Dose Ordered Sig/Althea Route PRN Reason Start Time Stop Time Status Last Admin Dose Admin Acetaminophen (Tylenol) 650 mg Q4H PRN ORAL T>100.5 02/13/19 07:30 03/08/19 07:29 Aspirin (ASA) 81 mg DAILY NG 02/13/19 09:00 03/12/19 08:59 02/13/19 08:56 Ceftriaxone Sodium 1 gm/ Dextrose 55 ml @ 110 mls/hr Q24H IVPB 02/13/19 21:00 02/13/19 23:59 Dextrose (Dextrose 50%) 25 ml Q30M PRN IV Hypoglycemia 02/13/19 07:30 03/08/19 10:29 Dextrose (Dextrose 50%) 50 ml Q30M PRN IV Hypoglycemia 02/13/19 07:30 03/08/19 10:29 Diphenhydramine HCl (Benadryl) 25 mg Q6H PRN ORAL Itching/Pruritis 02/13/19 08:00 03/08/19 07:59 Epoetin Romeo (Epoetin Romeo(ESRD on dialysis)) 10,000 unit SUN- SUBQ 02/14/19 21:00 03/14/19 20:59 Famotidine (Pepcid I.v.) 20 mg Q12HR IVP 02/13/19 09:00 03/14/19 20:59 02/13/19 08:56 Metoprolol Tartrate 2.5 mg/ Dextrose 57.5 ml @ 130 mls/hr Q6H PRN IVPB heart rate greater than 125 02/13/19 08:45 03/14/19 20:44 Morphine Sulfate (Morphine Sulfate) 2 mg Q4H PRN IVP Severe Pain (Pain Scale 7-10) 02/13/19 08:00 02/14/19 07:59 Nitroglycerin (Nitro-Bid) 2 inch Q6HR TOPIC 02/13/19 12:00 03/10/19 17:59 Nitroglycerin (Ntg) 0.4 mg Q5M X 3 DOSES PRN SL Prn Chest Pain 02/13/19 07:30 03/08/19 10:29 Ondansetron HCl (Zofran) 4 mg Q6H PRN IVP Nausea & Vomiting 02/13/19 08:00 03/08/19 07:59 Polyethylene Glycol (Miralax) 17 gm HSPRN PRN ORAL Constipation 02/13/19 21:00 03/08/19 20:59 Temazepam (Restoril) 15 mg HSPRN PRN ORAL Insomnia 02/13/19 21:00 02/14/19 21:00 Vancomycin HCl (Firvanq) 125 mg FOUR TIMES A DAY NG 02/13/19 09:00 02/19/19 12:59 02/13/19 08:56 Lit Cerna MD Feb 13, 2019 11:10
--- NOTE | 2019-02-13 11:16 | GI Progress Note ---
Assessment/Plan Problems: (1) Upper GI bleeding ICD Codes: K92.2 - Gastrointestinal hemorrhage, unspecified SNOMED: 45970258 (2) Hemorrhagic shock ICD Codes: R57.8 - Hemorrhagic shock SNOMED: 333230 (3) Anemia ICD Codes: D64.9 - Anemia, unspecified SNOMED: 542889369 Status: progressing Status Narrative Discussed with Dr. Herrera Assessment/Plan s/p EGD SUMMARY OF FINDINGS: Most probably bleeding from the polypectomy site status post epinephrine injection, hemoclip placement, and epinephrine washed. stable H&H cdiff positive ST evaluation today, may remove NGT and start clear trial ASA dc ppi, add H2B abx per ID monitor H&H, prn transfusion follow labs The patient was seen and examined at bedside and all new and available data was reviewed in the patients chart. I agree with the above findings, impression and plan. (Patient seen earlier today. Signature stamp does not reflect patient encounter time.). - Fabrizio Herrera MD Subjective Subjective Limited Objective Last 24 Hour Vital Signs Date Time Temp Pulse Resp B/P (MAP) Pulse Ox O2 Delivery O2 Flow Rate FiO2 02/13/19 08:00 98.1 86 18 111/62 (78) 97 02/13/19 08:00 Venturi Mask Venturi Mask 02/13/19 07:52 80 02/13/19 07:30 97 Venturi Mask 6.0 30 02/13/19 07:30 Venturi Mask 6.0 30 02/13/19 06:00 80 20 121/55 (77) 98 02/13/19 05:56 110/60 02/13/19 05:08 74 24 99 Facial 30 02/13/19 05:00 82 20 122/55 (77) 98 02/13/19 04:00 Venturi Mask Venturi Mask 02/13/19 04:00 6.0 30 02/13/19 04:00 82 02/13/19 04:00 98.0 79 20 105/55 (72) 98 02/13/19 03:09 79 21 100 Facial 30 02/13/19 03:00 79 20 103/55 (71) 98 02/13/19 02:00 82 20 91/51 (64) 98 02/13/19 01:00 84 20 104/63 (77) 98 02/13/19 00:50 83 23 100 Facial 30 02/13/19 00:00 98.4 81 20 104/63 (77) 98 02/13/19 00:00 6.0 30 02/13/19 00:00 Venturi Mask Venturi Mask 02/13/19 00:00 86 02/12/19 23:50 108/58 02/12/19 23:00 80 20 108/55 (72) 98 02/12/19 22:16 82 18 100 30 02/12/19 22:00 81 20 104/58 (73) 98 02/12/19 21:00 86 19 105/60 (75) 98 02/12/19 20:00 84 02/12/19 20:00 6.0 30 02/12/19 20:00 98.0 84 19 108/60 (76) 98 02/12/19 20:00 Venturi Mask Venturi Mask 02/12/19 19:00 Venturi Mask 8.0 40 02/12/19 19:00 80 19 106/55 (72) 98 02/12/19 19:00 100 Venturi Mask 8.0 40 02/12/19 18:00 81 23 109/55 (73) 100 02/12/19 17:46 87 122/70 02/12/19 17:45 122/70 02/12/19 17:00 86 24 122/70 (87) 100 02/12/19 16:00 Venturi Mask Venturi Mask 02/12/19 16:00 8.0 40 02/12/19 16:00 85 02/12/19 16:00 98.5 88 22 110/53 (72) 100 02/12/19 15:00 84 22 102/55 (71) 95 02/12/19 14:00 83 22 106/56 (73) 100 02/12/19 13:00 81 23 104/59 (74) 97 02/12/19 12:00 87 02/12/19 12:00 8.0 40 02/12/19 12:00 Venturi Mask Venturi Mask 02/12/19 12:00 98.6 78 26 111/68 (82) 100 02/12/19 11:16 118/73 02/12/19 11:16 86 118/73 Intake and Output 02/12/19 02/13/19 18:59 06:59 Intake Total 975.0 ml 630 ml Output Total 360 ml 740 ml Balance 615.0 ml -110 ml Free Water 110 ml 70 ml IV Total 495.0 ml 55 ml Tube Feeding 370 ml 505 ml Output Urine Total 360 ml 740 ml # Bowel Movements 4 3 Laboratory Tests Test 02/13/19 04:20 White Blood Count 13.3 K/UL (4.8-10.8) H Red Blood Count 2.93 M/UL (4.20-5.40) L Hemoglobin 8.5 G/DL (12.0-16.0) L Hematocrit 26.3 % (37.0-47.0) L Mean Corpuscular Volume 90 FL (80-99) Mean Corpuscular Hemoglobin 29.1 PG (27.0-31.0) Mean Corpuscular Hemoglobin Concent 32.4 G/DL (32.0-36.0) Red Cell Distribution Width 15.1 % (11.6-14.8) H Platelet Count 286 K/UL (150-450) Mean Platelet Volume 10.3 FL (6.5-10.1) H Neutrophils (%) (Auto) 81.1 % (45.0-75.0) H Lymphocytes (%) (Auto) 6.3 % (20.0-45.0) L Monocytes (%) (Auto) 5.5 % (1.0-10.0) Eosinophils (%) (Auto) 6.6 % (0.0-3.0) H Basophils (%) (Auto) 0.6 % (0.0-2.0) Sodium Level 142 MMOL/L (136-145) Potassium Level 3.3 MMOL/L (3.5-5.1) L Chloride Level 106 MMOL/L (98-107) Carbon Dioxide Level 23 MMOL/L (21-32) Anion Gap 13 mmol/L (5-15) Blood Urea Nitrogen 68 mg/dL (7-18) H Creatinine 4.3 MG/DL (0.55-1.30) H Estimat Glomerular Filtration Rate 12.5 mL/min (>60) Glucose Level 201 MG/DL (74-106) H Calcium Level 7.6 MG/DL (8.5-10.1) L Phosphorus Level 2.9 MG/DL (2.5-4.9) Magnesium Level 2.1 MG/DL (1.8-2.4) Total Bilirubin 0.2 MG/DL (0.2-1.0) Aspartate Amino Transf (AST/SGOT) 21 U/L (15-37) Alanine Aminotransferase (ALT/SGPT) 31 U/L (12-78) Alkaline Phosphatase 114 U/L (46-116) Troponin I 1.484 ng/mL (0.000-0.056) Pro-B-Type Natriuretic Peptide 93605 pg/mL (0-125) H Total Protein 5.4 G/DL (6.4-8.2) L Albumin 1.6 G/DL (3.4-5.0) L Globulin 3.8 g/dL Albumin/Globulin Ratio 0.4 (1.0-2.7) L Height (Feet): 5 Height (Inches): 6.00 Weight (Pounds): 167 General Appearance: WD/WN, no apparent distress, alert Cardiovascular: normal rate Respiratory/Chest: normal breath sounds, no respiratory distress Abdominal Exam: normal bowel sounds, non tender, soft, other - NGT Extremities: normal range of motion, non-tender Rachel Simpson NP Feb 13, 2019 11:16
--- NOTE | 2019-02-13 12:00 | Infectious Diseases Prog Note ---
Assessment/Plan Assessment/Plan Abx: Zosyn 02/07- Assessment: Hypotension , SP- 2ry to massive GIB Leukocytosis, improving- in the setting of above and aspiration PNA and Cdiff -02/12 CXR: Extensive airspace opacities present bilaterally without change -CXR: Interval worsening bilateral airspace opacities, more consolidated in the right upper lobe Query small right pleural effusion. -sp cx normal resp annabelle Cdiff colitis -Cdiff toxin A/b EIA + Fever, SP Acute respiratory failure s/p intubation 02/06 (for airway protection), s/p extubated 02/07; now no VM CONS bacteremia; likely contaminant -02/05 Bcx 2/ CONS; 02/10 Bcx NTD hx of ESBL UTI ESRD on HD GERD Dm2 CVA w/ R side weakness HTN HLD PVD s/p AKA Alzheimer dementia lung mass multiple gastric polyps s/p polypectomy gastric antral vascular ectasis DVT NH resident Plan: -Cont Ceftriaxone #2 (abx d #05/25) for probable PNA in view of no isolation resistant organisms and now Cdiff -Cont PO Vancomycin 125mg qid #2/-14 -02/12 SP Zosyn #6 -f/u Bcx x2 -f.u cx -Monitor CBC/CMP, temperatures -aspiration precautions Thank you for this consultation. Will continue to follow along with you. Subjective Allergies: Coded Allergies: No Known Allergies (Unverified , 09/15/16) Subjective afebrile wbc improving repeat Bcx NTD remains on venturi mask transferred from ICU to [facility] Objective Vital Signs Last 24 Hour Vital Signs Date Time Temp Pulse Resp B/P (MAP) Pulse Ox O2 Delivery O2 Flow Rate FiO2 02/13/19 08:00 98.1 86 18 111/62 (78) 97 02/13/19 08:00 Venturi Mask Venturi Mask 02/13/19 07:52 80 02/13/19 07:30 97 Venturi Mask 6.0 30 02/13/19 07:30 Venturi Mask 6.0 30 02/13/19 06:00 80 20 121/55 (77) 98 02/13/19 05:56 110/60 02/13/19 05:08 74 24 99 Facial 30 02/13/19 05:00 82 20 122/55 (77) 98 02/13/19 04:00 Venturi Mask Venturi Mask 02/13/19 04:00 6.0 30 02/13/19 04:00 82 02/13/19 04:00 98.0 79 20 105/55 (72) 98 02/13/19 03:09 79 21 100 Facial 30 02/13/19 03:00 79 20 103/55 (71) 98 02/13/19 02:00 82 20 91/51 (64) 98 02/13/19 01:00 84 20 104/63 (77) 98 02/13/19 00:50 83 23 100 Facial 30 02/13/19 00:00 98.4 81 20 104/63 (77) 98 02/13/19 00:00 6.0 30 02/13/19 00:00 Venturi Mask Venturi Mask 02/13/19 00:00 86 02/12/19 23:50 108/58 02/12/19 23:00 80 20 108/55 (72) 98 02/12/19 22:16 82 18 100 30 02/12/19 22:00 81 20 104/58 (73) 98 02/12/19 21:00 86 19 105/60 (75) 98 02/12/19 20:00 84 02/12/19 20:00 6.0 30 02/12/19 20:00 98.0 84 19 108/60 (76) 98 02/12/19 20:00 Venturi Mask Venturi Mask 02/12/19 19:00 Venturi Mask 8.0 40 02/12/19 19:00 80 19 106/55 (72) 98 02/12/19 19:00 100 Venturi Mask 8.0 40 02/12/19 18:00 81 23 109/55 (73) 100 02/12/19 17:46 87 122/70 02/12/19 17:45 122/70 02/12/19 17:00 86 24 122/70 (87) 100 02/12/19 16:00 Venturi Mask Venturi Mask 02/12/19 16:00 8.0 40 02/12/19 16:00 85 02/12/19 16:00 98.5 88 22 110/53 (72) 100 02/12/19 15:00 84 22 102/55 (71) 95 02/12/19 14:00 83 22 106/56 (73) 100 02/12/19 13:00 81 23 104/59 (74) 97 02/12/19 12:00 87 02/12/19 12:00 8.0 40 02/12/19 12:00 Venturi Mask Venturi Mask 02/12/19 12:00 98.6 78 26 111/68 (82) 100 Height (Feet): 5 Height (Inches): 6.00 Weight (Pounds): 167 Objective GENERAL: Shows to be elderly female, on BiPAP therapy. NECK: Supple. No jugular venous distention. LUNGS: She does show some crackles and rhonchi. CARDIAC: Regular rhythm. Tachycardic. No heaves or thrills. ABDOMEN: Soft and nontender. Positive bowel sounds. EXTREMITIES: Right above-knee amputation Microbiology Date/Time Source Procedure Growth Status 02/10/19 15:04 Blood Blood Culture - Preliminary NO GROWTH AFTER 48 HOURS Resulted 02/10/19 15:00 Blood Blood Culture - Preliminary NO GROWTH AFTER 48 HOURS Resulted 02/10/19 20:55 Sputum Expectorated Gram Stain - Final Complete 02/10/19 20:55 Sputum Expectorated Sputum Culture - Final NORMAL UPPER RESPIRATORY ANNABELLE PRESENT Complete 02/12/19 00:00 Stool Clostridium difficile Toxin Assay - Final Complete Laboratory Tests Test 02/13/19 04:20 White Blood Count 13.3 K/UL (4.8-10.8) H Red Blood Count 2.93 M/UL (4.20-5.40) L Hemoglobin 8.5 G/DL (12.0-16.0) L Hematocrit 26.3 % (37.0-47.0) L Mean Corpuscular Volume 90 FL (80-99) Mean Corpuscular Hemoglobin 29.1 PG (27.0-31.0) Mean Corpuscular Hemoglobin Concent 32.4 G/DL (32.0-36.0) Red Cell Distribution Width 15.1 % (11.6-14.8) H Platelet Count 286 K/UL (150-450) Mean Platelet Volume 10.3 FL (6.5-10.1) H Neutrophils (%) (Auto) 81.1 % (45.0-75.0) H Lymphocytes (%) (Auto) 6.3 % (20.0-45.0) L Monocytes (%) (Auto) 5.5 % (1.0-10.0) Eosinophils (%) (Auto) 6.6 % (0.0-3.0) H Basophils (%) (Auto) 0.6 % (0.0-2.0) Sodium Level 142 MMOL/L (136-145) Potassium Level 3.3 MMOL/L (3.5-5.1) L Chloride Level 106 MMOL/L (98-107) Carbon Dioxide Level 23 MMOL/L (21-32) Anion Gap 13 mmol/L (5-15) Blood Urea Nitrogen 68 mg/dL (7-18) H Creatinine 4.3 MG/DL (0.55-1.30) H Estimat Glomerular Filtration Rate 12.5 mL/min (>60) Glucose Level 201 MG/DL (74-106) H Calcium Level 7.6 MG/DL (8.5-10.1) L Phosphorus Level 2.9 MG/DL (2.5-4.9) Magnesium Level 2.1 MG/DL (1.8-2.4) Total Bilirubin 0.2 MG/DL (0.2-1.0) Aspartate Amino Transf (AST/SGOT) 21 U/L (15-37) Alanine Aminotransferase (ALT/SGPT) 31 U/L (12-78) Alkaline Phosphatase 114 U/L (46-116) Troponin I 1.484 ng/mL (0.000-0.056) Pro-B-Type Natriuretic Peptide 41399 pg/mL (0-125) H Total Protein 5.4 G/DL (6.4-8.2) L Albumin 1.6 G/DL (3.4-5.0) L Globulin 3.8 g/dL Albumin/Globulin Ratio 0.4 (1.0-2.7) L Current Medications Medications (Trade) Dose Ordered Sig/Althea Route PRN Reason Start Time Stop Time Status Last Admin Dose Admin Acetaminophen (Tylenol) 650 mg Q4H PRN ORAL T>100.5 02/13/19 07:30 03/08/19 07:29 Aspirin (ASA) 81 mg DAILY NG 02/13/19 09:00 03/12/19 08:59 02/13/19 08:56 Ceftriaxone Sodium 1 gm/ Dextrose 55 ml @ 110 mls/hr Q24H IVPB 02/13/19 21:00 02/13/19 23:59 Dextrose (Dextrose 50%) 25 ml Q30M PRN IV Hypoglycemia 02/13/19 07:30 03/08/19 10:29 Dextrose (Dextrose 50%) 50 ml Q30M PRN IV Hypoglycemia 02/13/19 07:30 03/08/19 10:29 Diphenhydramine HCl (Benadryl) 25 mg Q6H PRN ORAL Itching/Pruritis 02/13/19 08:00 03/08/19 07:59 Epoetin Romeo (Epoetin Romeo(ESRD on dialysis)) 10,000 unit SUN-SUN-SUN SUBQ 02/14/19 21:00 03/14/19 20:59 Famotidine (Pepcid I.v.) 20 mg Q12HR IVP 02/13/19 09:00 03/14/19 20:59 02/13/19 08:56 Metoprolol Tartrate 2.5 mg/ Dextrose 57.5 ml @ 130 mls/hr Q6H PRN IVPB heart rate greater than 125 02/13/19 08:45 03/14/19 20:44 Morphine Sulfate (Morphine Sulfate) 2 mg Q4H PRN IVP Severe Pain (Pain Scale 7-10) 02/13/19 08:00 02/14/19 07:59 Nitroglycerin (Nitro-Bid) 2 inch Q6HR TOPIC 02/13/19 12:00 03/10/19 17:59 Nitroglycerin (Ntg) 0.4 mg Q5M X 3 DOSES PRN SL Prn Chest Pain 02/13/19 07:30 03/08/19 10:29 Ondansetron HCl (Zofran) 4 mg Q6H PRN IVP Nausea & Vomiting 02/13/19 08:00 03/08/19 07:59 Polyethylene Glycol (Miralax) 17 gm HSPRN PRN ORAL Constipation 02/13/19 21:00 03/08/19 20:59 Temazepam (Restoril) 15 mg HSPRN PRN ORAL Insomnia 02/13/19 21:00 02/14/19 21:00 Vancomycin HCl (Firvanq) 125 mg FOUR TIMES A DAY NG 02/13/19 09:00 02/19/19 12:59 02/13/19 08:56 Daisy Arce M.D. Feb 13, 2019 12:00
--- NOTE | 2019-02-13 12:29 | NUR ---
ST NOTE: BEDSIDE SWALLOW EVAL RECEIVED BEDSIDE SWALLOW EVAL ORDER CHART REVIEWED PRIOR THE EVALUATION PT IS A 68-YEAR-OLD FEMALE WHO WAS ADMITTED DUE TO GI BLEED(BLEEDING FROM THE POLYPECTOMY SITE). PT DEVELOPED RESP FAILURE AND INTUBATED FOR 1 DAY FOR AIRWAY PROTECTION(FROM 02/06/19-02/07/19), ASPIRATION PNA. DYSPHAGIA RISK FACTORS: H/O CVA, ALZHEIMER'S DEMENTIA, DMII, ESRD, CHF, HTN, GERD, ANEMIA, PSYCH(ANXIETY) PLOF: PT RESIDES AT [facility]. PER CHART, PT WAS RENAL MECH SOFT(GROUND) WITH THIN LIQUIDS DIET. PER PT'S POLST: FULL CODE, FULL TREATMENT, OKAY FOR LONG-TERM ARTIFICIAL NUTRITION, INCLUDING FEEDING TUBES. CURRENT STATUS: PT SEEN AT BEDSIDE IN LATE AM. ALERT, COOPERATIVE, FOLLOWS SIMPLE DIRECTIONS, CONFUSED, ORIENTED X 1. PT WITH NC(2L), OXYGEN LEVEL: 100%. TROPONIN I: 1.484H. REDUCED LOUDNESS, SLIGHTLY HOARSE BUT VOICE IS CLEAR. GIVEN PO TRIALS: ICE-CHIP(TSPX1), THIN(TSPX1), NECTAR THICK(TSPX2) AND PUREE(TSPX1) INITIAL IMPRESSION: PROBABLE MILD TO MODERATE OR WORSENED OROPHARYNGEAL DYSPHAGIA PT EDENTULOUS, MILDLY INCREASED ORAL TRANSIT TIME AND OROPHARYNGEAL TRANSIT TIME, FAIR LARYNGEAL ELEVATION, NO OVERT S/S OF ASPIRATION. DUE TO PT HAS H/O CVA AND DEMENTIA, PT HAS RISK FOR ASPIRATION. RECOMMENDATIONS: 1. CONSERVATIVELY, MODIFIED BARIUM SWALLOW STUDY PRIOR PO INTAKE 2. IF PO IS GIVEN FOR QUALITY OF LIFE, CONSIDER RENAL, CCHO(MEDIUM) LIQUIFIED PUREED, LIKE NECTAR THICK SOUP CONSISTENCY WITH NECTAR THICK LIQUIDS 3. STRICT ASPIRATION/REFLUX PRECAUTIONS WITH 1TO1 FEEDING. 4. MODIFIED BARIUM SWALLOW STUDY 5. SWALLOW TX AND MANAGEMENT D/W BROWN HUBER. POSTED NPO SIGN AND ASPIRATION/REFLUX PRECAUTIONS SIGN(IF NEEDED).
--- NOTE | 2019-02-13 13:02 | Diagnostic Imaging Report ---
Indication: Dyspnea Comparison: None A single view chest radiograph was obtained. Findings: Extensive interstitial disease airspace disease and prominent vascularity again noted but marginally improved compared to the last study done one day earlier. NG tube is in good position. IMPRESSION: Extensive airspace disease probably due to CHF with some interval improvement.
--- NOTE | 2019-02-13 14:46 | Nephrology Progress Note ---
Assessment/Plan Problem List: (1) Upper GI bleeding (2) Hemorrhagic shock (3) ESRF (end stage renal failure) (4) NSTEMI (non-ST elevated myocardial infarction) (5) Respiratory failure, acute (6) Lung mass Assessment admitted with massive GI bleed and hypotension ESRD : M W Fr h/o UTI now , on vent, respitatory failure Other medical conditions; Type 2 diabetes. Hypertension. h/o Anemia of chronic renal disease Hypercholesterolemia. Peripheral vascular disease. Alzheimer's dementia. ?? LUNG Pathology PAST SURGICAL HISTORY: 1. Right xflef-onu-yhwo amputation. 2. Open reduction internal fixation Plan Plan: Zaroxyllin and Lasix given once 02/12 on BIPAP PRN start EPO change protonix drip to IV q12h DC IV fluid to D5 HD 02/13 monitor H&h monitor troponin I monitor lytes and renal parameters antibiotics for uti start NTG Paste Subjective ROS Limited/Unobtainable: No Constitutional: Reports: malaise, weakness Objective Objective Last 24 Hour Vital Signs Date Time Temp Pulse Resp B/P (MAP) Pulse Ox O2 Delivery O2 Flow Rate FiO2 02/13/19 13:15 131/78 02/13/19 12:00 Nasal Cannula 2.0 Venturi Mask 02/13/19 12:00 97.7 85 18 131/78 (95) 100 02/13/19 11:49 84 02/13/19 08:00 98.1 86 18 111/62 (78) 97 02/13/19 08:00 Venturi Mask Venturi Mask 02/13/19 07:52 80 02/13/19 07:30 97 Venturi Mask 6.0 30 02/13/19 07:30 Venturi Mask 6.0 30 02/13/19 06:00 80 20 121/55 (77) 98 02/13/19 05:56 110/60 02/13/19 05:08 74 24 99 Facial 30 02/13/19 05:00 82 20 122/55 (77) 98 02/13/19 04:00 Venturi Mask Venturi Mask 02/13/19 04:00 6.0 30 02/13/19 04:00 82 02/13/19 04:00 98.0 79 20 105/55 (72) 98 02/13/19 03:09 79 21 100 Facial 30 02/13/19 03:00 79 20 103/55 (71) 98 02/13/19 02:00 82 20 91/51 (64) 98 02/13/19 01:00 84 20 104/63 (77) 98 02/13/19 00:50 83 23 100 Facial 30 02/13/19 00:00 98.4 81 20 104/63 (77) 98 02/13/19 00:00 6.0 30 02/13/19 00:00 Venturi Mask Venturi Mask 02/13/19 00:00 86 02/12/19 23:50 108/58 02/12/19 23:00 80 20 108/55 (72) 98 02/12/19 22:16 82 18 100 30 02/12/19 22:00 81 20 104/58 (73) 98 02/12/19 21:00 86 19 105/60 (75) 98 02/12/19 20:00 84 02/12/19 20:00 6.0 30 02/12/19 20:00 98.0 84 19 108/60 (76) 98 02/12/19 20:00 Venturi Mask Venturi Mask 02/12/19 19:00 Venturi Mask 8.0 40 02/12/19 19:00 80 19 106/55 (72) 98 02/12/19 19:00 100 Venturi Mask 8.0 40 02/12/19 18:00 81 23 109/55 (73) 100 02/12/19 17:46 87 122/70 02/12/19 17:45 122/70 02/12/19 17:00 86 24 122/70 (87) 100 02/12/19 16:00 Venturi Mask Venturi Mask 02/12/19 16:00 8.0 40 02/12/19 16:00 85 02/12/19 16:00 98.5 88 22 110/53 (72) 100 02/12/19 15:00 84 22 102/55 (71) 95 Intake and Output 02/12/19 02/13/19 19:00 07:00 Intake Total 935.0 ml 650 ml Output Total 410 ml 700 ml Balance 525.0 ml -50 ml Free Water 110 ml 70 ml IV Total 445.0 ml 55 ml Tube Feeding 380 ml 525 ml Output Urine Total 410 ml 700 ml # Bowel Movements 5 2 Laboratory Tests 02/13/19 04:20: White Blood Count 13.3H, Red Blood Count 2.93L, Hemoglobin 8.5L, Hematocrit 26.3L, Mean Corpuscular Volume 90, Mean Corpuscular Hemoglobin 29.1, Mean Corpuscular Hemoglobin Concent 32.4, Red Cell Distribution Width 15.1H, Platelet Count 286, Mean Platelet Volume 10.3H, Neutrophils (%) (Auto) 81.1H, Lymphocytes (%) (Auto) 6.3L, Monocytes (%) (Auto) 5.5, Eosinophils (%) (Auto) 6.6H, Basophils (%) (Auto) 0.6, Sodium Level 142, Potassium Level 3.3L, Chloride Level 106, Carbon Dioxide Level 23, Anion Gap 13, Blood Urea Nitrogen 68H, Creatinine 4.3H, Estimat Glomerular Filtration Rate 12.5, Glucose Level 201H, Calcium Level 7.6L, Phosphorus Level 2.9, Magnesium Level 2.1, Total Bilirubin 0.2, Aspartate Amino Transf (AST/SGOT) 21, Alanine Aminotransferase ( ALT/SGPT) 31, Alkaline Phosphatase 114, Troponin I 1.484H, Pro-B-Type Natriuretic Peptide 37417G, Total Protein 5.4L, Albumin 1.6L, Globulin 3.8, Albumin/Globulin Ratio 0.4L Height (Feet): 5 Height (Inches): 6.00 Weight (Pounds): 167 General Appearance: no apparent distress Cardiovascular: normal rate Respiratory/Chest: decreased breath sounds Abdomen: soft Objective no change Marques Motta MD Feb 13, 2019 14:45
--- NOTE | 2019-02-13 16:30 | NUR ---
NURSE NOTES: NGT is out, Inserted new NGT thru right nare.
--- NOTE | 2019-02-13 17:21 | Diagnostic Imaging Report ---
Indication: Dyspnea Comparison: 02/09/2019 A single view chest radiograph was obtained. Findings: There is extensive airspace disease bilaterally relatively stable.. NG tube is in good position. The heart is stable. IMPRESSION: Extensive airspace disease. No change
--- NOTE | 2019-02-13 19:32 | NUR ---
HAND-OFF: Report given to Leyla Coombs RN.
--- NOTE | 2019-02-13 19:33 | NUR ---
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
--- NOTE | 2019-02-13 20:57 | Cardiology Progress Note ---
Assessment/Plan Assessment/Plan 1. [id number] myocardial infarction likely demand relatred 2. Recent gastrointestinal bleeding, hemoclip placement. 3. History of vomiting and possible aspiration. 4. Pneumonia. 5. Diabetes mellitus. 6. Tachycardia. 7. Anemia. 8. Leukocytosis, likely secondary to pneumonia. 9. End-stage renal disease, on hemodialysis. 10. Bacteremia contaminant 11. c diff colitis cxr reviewed looks bilat infiltrates still but clincialy she is better tele sinus ekg wiil order for tomorrow trop down trending no on nc on ngt feeding is on Ecotrin abx hgb stable on ecotrin imporved pulm lorenzana despite cxr being so abn Subjective Cardiovascular: Denies: chest pain, lightheadedness, palpitations Respiratory: Reports: shortness of breath Gastrointestinal/Abdominal: Denies: abdominal pain Genitourinary: Reports: no symptoms Objective Last 24 Hour Vital Signs Date Time Temp Pulse Resp B/P (MAP) Pulse Ox O2 Delivery O2 Flow Rate FiO2 02/13/19 17:53 114/68 02/13/19 16:00 98.1 82 18 114/68 (83) 100 02/13/19 16:00 Nasal Cannula 2.0 02/13/19 15:14 78 02/13/19 13:15 131/78 02/13/19 12:00 Nasal Cannula 2.0 02/13/19 12:00 97.7 85 18 131/78 (95) 100 02/13/19 11:49 84 02/13/19 08:00 98.1 86 18 111/62 (78) 97 02/13/19 08:00 Venturi Mask Venturi Mask 02/13/19 07:52 80 02/13/19 07:30 97 Venturi Mask 6.0 30 02/13/19 07:30 Venturi Mask 6.0 30 02/13/19 06:00 80 20 121/55 (77) 98 02/13/19 05:56 110/60 02/13/19 05:08 74 24 99 Facial 30 02/13/19 05:00 82 20 122/55 (77) 98 02/13/19 04:00 Venturi Mask Venturi Mask 02/13/19 04:00 6.0 30 02/13/19 04:00 82 02/13/19 04:00 98.0 79 20 105/55 (72) 98 02/13/19 03:09 79 21 100 Facial 30 02/13/19 03:00 79 20 103/55 (71) 98 02/13/19 02:00 82 20 91/51 (64) 98 02/13/19 01:00 84 20 104/63 (77) 98 02/13/19 00:50 83 23 100 Facial 30 02/13/19 00:00 98.4 81 20 104/63 (77) 98 02/13/19 00:00 6.0 30 02/13/19 00:00 Venturi Mask Venturi Mask 02/13/19 00:00 86 02/12/19 23:50 108/58 02/12/19 23:00 80 20 108/55 (72) 98 02/12/19 22:16 82 18 100 30 02/12/19 22:00 81 20 104/58 (73) 98 02/12/19 21:00 86 19 105/60 (75) 98 General Appearance: no apparent distress, alert Neck: no JVD Cardiovascular: normal rate Respiratory/Chest: rhonchi - bilaterally Abdomen: normal bowel sounds, non tender, soft Extremities: no swelling Intake and Output 02/12/19 02/13/19 19:00 07:00 Intake Total 935.0 ml 650 ml Output Total 410 ml 700 ml Balance 525.0 ml -50 ml Free Water 110 ml 70 ml IV Total 445.0 ml 55 ml Tube Feeding 380 ml 525 ml Output Urine Total 410 ml 700 ml # Bowel Movements 5 2 Laboratory Tests Test 02/13/19 04:20 White Blood Count 13.3 K/UL (4.8-10.8) H Red Blood Count 2.93 M/UL (4.20-5.40) L Hemoglobin 8.5 G/DL (12.0-16.0) L Hematocrit 26.3 % (37.0-47.0) L Mean Corpuscular Volume 90 FL (80-99) Mean Corpuscular Hemoglobin 29.1 PG (27.0-31.0) Mean Corpuscular Hemoglobin Concent 32.4 G/DL (32.0-36.0) Red Cell Distribution Width 15.1 % (11.6-14.8) H Platelet Count 286 K/UL (150-450) Mean Platelet Volume 10.3 FL (6.5-10.1) H Neutrophils (%) (Auto) 81.1 % (45.0-75.0) H Lymphocytes (%) (Auto) 6.3 % (20.0-45.0) L Monocytes (%) (Auto) 5.5 % (1.0-10.0) Eosinophils (%) (Auto) 6.6 % (0.0-3.0) H Basophils (%) (Auto) 0.6 % (0.0-2.0) Sodium Level 142 MMOL/L (136-145) Potassium Level 3.3 MMOL/L (3.5-5.1) L Chloride Level 106 MMOL/L (98-107) Carbon Dioxide Level 23 MMOL/L (21-32) Anion Gap 13 mmol/L (5-15) Blood Urea Nitrogen 68 mg/dL (7-18) H Creatinine 4.3 MG/DL (0.55-1.30) H Estimat Glomerular Filtration Rate 12.5 mL/min (>60) Glucose Level 201 MG/DL (74-106) H Calcium Level 7.6 MG/DL (8.5-10.1) L Phosphorus Level 2.9 MG/DL (2.5-4.9) Magnesium Level 2.1 MG/DL (1.8-2.4) Total Bilirubin 0.2 MG/DL (0.2-1.0) Aspartate Amino Transf (AST/SGOT) 21 U/L (15-37) Alanine Aminotransferase (ALT/SGPT) 31 U/L (12-78) Alkaline Phosphatase 114 U/L (46-116) Troponin I 1.484 ng/mL (0.000-0.056) Pro-B-Type Natriuretic Peptide 68946 pg/mL (0-125) H Total Protein 5.4 G/DL (6.4-8.2) L Albumin 1.6 G/DL (3.4-5.0) L Globulin 3.8 g/dL Albumin/Globulin Ratio 0.4 (1.0-2.7) L Microbiology Date/Time Source Procedure Growth Status 02/12/19 00:00 Stool Clostridium difficile Toxin Assay - Final Complete Kaushik Franco MD Feb 13, 2019 20:57
[2019-02-13] MEDS ORDERED: Miralax 17gm pkt ORAL PRN (21:00)
[2019-02-13] MEDS ORDERED: cefTRIAXone 1 GM in D5W 55 ML IVPB SCH (21:00)
[2019-02-14] VITALS: BP 115/54
[2019-02-14] MEDS: Nitroglycerin 2% oint pkt TOPIC SCH ×4 (00:08→17:07)
--- NOTE | 2019-02-14 03:50 | NUR ---
NURSE NOTES: Pt. transferred from 2W to 205-2 via bed. Pt. transferred to unit without any incident. Pt is A/O x2. Rogers pt. to room, unit, and hospital policies. gambling monitor is in placed, IV site intact, asymptomatic, and patent. Pt. is on NGT feeding of Nephro at 45cc/hr; no residual noted. Bed is in the lowest position and locked. Call light within reach. Belongings list checked and accounted. No signs and symptoms of acute distress noted at this time. Will continue plan of care.
[2019-02-14 04:00] VITALS: BP_SYST 118; BP_SYST 121; BP_DIAS 59; BP_DIAS 63
[2019-02-14] MEDS ORDERED: Morphine Sulfate 2mg/ml Inj(IV/IM USE ONLY) IVP PRN (04:00)
[2019-02-14] MEDS ORDERED: Nitroglycerin Subl 0.4mg tab SL PRN (04:00)
--- NOTE | 2019-02-14 04:00 | NUR ---
NURSE NOTES: Transfer pt to tele 205-2,tolerated portable oxygen well with 2 L/min via N/C,no respiratory distress noted,no s/s of pain,report given to MAYO Stuart. Belongings list signed
[2019-02-14] MEDS ORDERED: Metoprolol Tartrate 2.5 MG in D5W 55 ML IVPB PRN (04:03)
[2019-02-14 05:53] LABS: BASOPHILS % (AUTO) 0.5 % (0.0-2.0); EOSINOPHILS % (AUTO) 6.1 % (0.0-3.0); HEMATOCRIT 29.3 % (37.0-47.0); HEMOGLOBIN 9.6 G/DL (12.0-16.0); MEAN CORPUSCULAR VOLUME 89 FL (80-99); MONOCYTES % (AUTO) 7.2 % (1.0-10.0); NEUTROPHILS % (AUTO) 75.2 % (45.0-75.0); PLATELET COUNT 336 K/UL (150-450); RED BLOOD COUNT 3.29 M/UL (4.20-5.40); RED CELL DISTRIBUTION WIDTH 14.9 % (11.6-14.8); WHITE BLOOD COUNT 12.3 K/UL (4.8-10.8)
[2019-02-14 05:59] LABS: ALANINE AMINOTRANSFERASE 25 U/L (12-78); ALBUMIN 1.7 G/DL (3.4-5.0); ALBUMIN/GLOBULIN RATIO 0.4 (1.0-2.7); ALKALINE PHOSPHATASE 103 U/L (46-116); ANION GAP 11 mmol/L (5-15); ASPARTATE AMINO TRANSFERASE 22 U/L (15-37); BILIRUBIN,TOTAL 0.2 MG/DL (0.2-1.0); BLOOD UREA NITROGEN 46 mg/dL (7-18); CALCIUM 7.8 MG/DL (8.5-10.1); CARBON DIOXIDE 27 MMOL/L (21-32); CHLORIDE 102 MMOL/L (98-107); CREATININE 3.3 MG/DL (0.55-1.30); PHOSPHORUS 1.8 MG/DL (2.5-4.9); POTASSIUM 3.4 MMOL/L (3.5-5.1); SODIUM 140 MMOL/L (136-145)
--- NOTE | 2019-02-14 06:30 | NUR ---
NURSE NOTES: Received Troponin level from labor relations officer. Troponin level is trending down. Endorsed to MAYO Amin. Addendum: 02/14/19 at 0752 by Paula Bates Mai, RN Also contacted Dr. Franco. Awaiting for reply. Endorsed to MAYO Amin.
[2019-02-14 07:53] VITALS: BP 125/56
--- NOTE | 2019-02-14 07:53 | NUR ---
HAND-OFF: Report given to []. Addendum: 02/14/19 at 0753 by Paula Bates Mai, RN Report given to MAYO Amin.
[2019-02-14] MEDS: Vancomycin oral 125mg/2.5ml NG SCH ×4 (09:08→21:51)
[2019-02-14] MEDS: Aspirin Baby 81mg NG SCH (09:08)
--- NOTE | 2019-02-14 10:31 | NUR ---
JOURNEYMAN LINEMANMOTION PICTURE FILM EXAMINER SI:UPPER GI BLEEDING . HEMORRHAGIC SHOCK VS: BP 118/59, P 81, T 97.6, RR 18, SpO2 95 Bi-pap FiO2 30% WBC 12.3, RBC 3.29, Hgb 9.6, Hct 29.3, K 3.4, BUN 46, CR 3.3 CXR IMPRESSION: Extensive airspace disease probably due to CHF with some interval improvement. IS:PEPCID IV 20mg IVP VANCOMYCIN 125mg NG TEMAZEPAM 15mg TELE STATUS
--- NOTE | 2019-02-14 10:32 | NUR ---
ST NOT: SWALLOW STATUS: FOLLOWED UP PT'S CONDITIONS. CURRENTLY, PT IS ON BIPAP WITH FIO2: 30%. RNEDUARDO, PRESENTED AND INFORMED THAT BIPAP IS PRN OR AT NIGHT ONLY. DISCUSSED WITH ELAINE Lynn RE: PT'S CONDITIONS, HOLD OFF THE MODIFIED BARIUM STUDY AT THIS TIME. EDUARDO HUBER, REMOVED THE BIPAP AND PUT HER ON 4L AND PT SATURATED AT 97%. PO SHOULD BE GIVEN FOR QUALITY OF LIFE, DIET IS RECOMMENDED LIQUIFIED PUREED, LIKE NECTAR THICK SOUP CONSISTENCY WITH NECTAR THICK LIQUIDS WITH 1TO1 FEEDING. D/W CLIFFORD HUBER, UZIEL, ELAINE. Addendum: 02/14/19 at 1144 by DENG BIGGS ORTHOPEDIC PHYSICIAN RE-ASSESSED PT LATE AM. PT ALERT, OFF BIPAP, WITH NC(2L), PT SATURATED AT 98-99%. HOARSE VOICE AND REDUCED LOUDNESS WAS NOTED. GIVEN NECTAR THICK LIQUIDS VIA TSP, MILD INCREASED ORAL TRANSIT TIME AND OROPHARYNGEAL TRANSIT TIME, ADEQUATE LARYNGEAL ELEVATION, NO OVERT S/S OF ASPIRATION. PT EXPRESSED THE WANTS AND NEEDS TO EAT/DRINK, SLOWLY INITIATE RENAL, CCHO(MEDIUM) LIQUIFIED PUREED, LIKE NECTAR THICK SOUP CONSISTENCY WITH NECTAR THICK LIQUID WITH 1TO1 FEEDING. ADVANCED DIET TOLERATED(PUREE WITH NECTAR THICK). D/W , DR. JACOBSON, DR. SILVA, RN, CLIFFORD AND UZIEL. ELAINE UPDATED ASPIRATION PRECAUTIONS SIGN.
--- NOTE | 2019-02-14 10:59 | GI Progress Note ---
Assessment/Plan Problems: (1) Upper GI bleeding ICD Codes: K92.2 - Gastrointestinal hemorrhage, unspecified SNOMED: 52876891 (2) Hemorrhagic shock ICD Codes: R57.8 - Hemorrhagic shock SNOMED: 375601 (3) Anemia ICD Codes: D64.9 - Anemia, unspecified SNOMED: 786181709 Status: progressing Status Narrative Discussed with Dr. Herrera Assessment/Plan s/p EGD SUMMARY OF FINDINGS: Most probably bleeding from the polypectomy site status post epinephrine injection, hemoclip placement, and epinephrine washed. stable H&H cdiff positive Repeat ST evaluation today The patient is currently on BiPAP, pending weaning process DC NGT once patient off BiPAP and advance diet ASA dc ppi, add H2B abx per ID monitor H&H, prn transfusion follow labs The patient was seen and examined at bedside and all new and available data was reviewed in the patients chart. I agree with the above findings, impression and plan. (Patient seen earlier today. Signature stamp does not reflect patient encounter time.). - Fabrizio Herrera MD Subjective Gastrointestinal/Abdominal: Reports: no symptoms Subjective Limited Objective Last 24 Hour Vital Signs Date Time Temp Pulse Resp B/P (MAP) Pulse Ox O2 Delivery O2 Flow Rate FiO2 02/14/19 10:44 81 18 97 02/14/19 09:00 Nasal Cannula 2.0 02/14/19 08:30 81 21 97 Facial 30 02/14/19 07:53 98.0 89 19 125/56 (79) 95 02/14/19 07:25 83 22 97 Facial 30 02/14/19 07:25 97 Bi-pap 30 02/14/19 07:25 Bi-pap 30 02/14/19 05:52 119/64 02/14/19 05:51 83 20 97 Facial 30 02/14/19 04:00 97.6 81 18 121/63 (82) 99 02/14/19 04:00 98.1 86 18 118/59 (78) 96 02/14/19 03:38 85 02/14/19 02:28 80 30 96 Facial 30 02/14/19 00:52 82 20 96 Facial 30 02/14/19 00:08 115/54 02/14/19 00:00 98.4 86 20 115/54 (74) 100 3/29/19 00:00 98.4 86 20 115/54 (74) 100 02/14/19 00:00 Nasal Cannula 2.0 02/13/19 23:46 86 02/13/19 23:00 85 17 98 Facial 30 02/13/19 20:00 Nasal Cannula 2.0 02/13/19 20:00 97.9 80 20 119/60 (79) 100 02/13/19 19:10 82 02/13/19 18:50 98 Nasal Cannula 3.0 32 02/13/19 18:50 Nasal Cannula 3.0 32 02/13/19 17:53 114/68 02/13/19 16:00 98.1 82 18 114/68 (83) 100 02/13/19 16:00 Nasal Cannula 2.0 02/13/19 15:14 78 02/13/19 13:15 131/78 02/13/19 12:00 Nasal Cannula 2.0 02/13/19 12:00 97.7 85 18 131/78 (95) 100 02/13/19 11:49 84 Intake and Output 02/13/19 02/14/19 18:59 06:59 Intake Total 660 ml 535 ml Output Total 2520 ml 20 ml Balance -1860 ml 515 ml Free Water 30 ml IV Total 55 ml Tube Feeding 600 ml 450 ml Other 60 ml Output Urine Total 470 ml 20 ml Stool Total 50 ml Hemodialysis UF 2000 ml Laboratory Tests Test 02/14/19 03:30 White Blood Count 12.3 K/UL (4.8-10.8) H Red Blood Count 3.29 M/UL (4.20-5.40) L Hemoglobin 9.6 G/DL (12.0-16.0) L Hematocrit 29.3 % (37.0-47.0) L Mean Corpuscular Volume 89 FL (80-99) Mean Corpuscular Hemoglobin 29.1 PG (27.0-31.0) Mean Corpuscular Hemoglobin Concent 32.7 G/DL (32.0-36.0) Red Cell Distribution Width 14.9 % (11.6-14.8) H Platelet Count 336 K/UL (150-450) Mean Platelet Volume 10.8 FL (6.5-10.1) H Neutrophils (%) (Auto) 75.2 % (45.0-75.0) H Lymphocytes (%) (Auto) 11.0 % (20.0-45.0) L Monocytes (%) (Auto) 7.2 % (1.0-10.0) Eosinophils (%) (Auto) 6.1 % (0.0-3.0) H Basophils (%) (Auto) 0.5 % (0.0-2.0) Sodium Level 140 MMOL/L (136-145) Potassium Level 3.4 MMOL/L (3.5-5.1) L Chloride Level 102 MMOL/L (98-107) Carbon Dioxide Level 27 MMOL/L (21-32) Anion Gap 11 mmol/L (5-15) Blood Urea Nitrogen 46 mg/dL (7-18) H Creatinine 3.3 MG/DL (0.55-1.30) H Estimat Glomerular Filtration Rate 16.8 mL/min (>60) Glucose Level 191 MG/DL (74-106) H Calcium Level 7.8 MG/DL (8.5-10.1) L Phosphorus Level 1.8 MG/DL (2.5-4.9) L Magnesium Level 1.9 MG/DL (1.8-2.4) Total Bilirubin 0.2 MG/DL (0.2-1.0) Aspartate Amino Transf (AST/SGOT) 22 U/L (15-37) Alanine Aminotransferase (ALT/SGPT) 25 U/L (12-78) Alkaline Phosphatase 103 U/L (46-116) Troponin I 1.154 ng/mL (0.000-0.056) C-Reactive Protein, Quantitative 5.2 mg/dL (0.00-0.90) H Pro-B-Type Natriuretic Peptide > 37662 pg/mL (0-125) H Total Protein 5.7 G/DL (6.4-8.2) L Albumin 1.7 G/DL (3.4-5.0) L Globulin 4.0 g/dL Albumin/Globulin Ratio 0.4 (1.0-2.7) L Random Vancomycin Level 0.3 ug/mL Height (Feet): 5 Height (Inches): 6.00 Weight (Pounds): 175 General Appearance: WD/WN, no apparent distress, alert Cardiovascular: normal rate Respiratory/Chest: normal breath sounds, no respiratory distress, other - BiPAP Abdominal Exam: normal bowel sounds, non tender, soft Extremities: normal range of motion, non-tender Rachel Simpson NP Feb 14, 2019 10:59
--- NOTE | 2019-02-14 11:47 | NUR ---
NURSE NOTES: PATIENT PASS ST EVAL NG TUBE REMOVED ORDERED
[2019-02-14 11:53] VITALS: BP 124/55
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
--- NOTE | 2019-02-14 12:06 | Infectious Diseases Prog Note ---
Assessment/Plan Assessment/Plan Abx: Zosyn 02/07- Assessment: Hypotension , SP- 2ry to massive GIB Leukocytosis, improving- in the setting of above and aspiration PNA and Cdiff -02/13 CXR: Extensive airspace disease probably due to CHF with some interval improvement. -02/12 CXR: Extensive airspace opacities present bilaterally without change -CXR: Interval worsening bilateral airspace opacities, more consolidated in the right upper lobe Query small right pleural effusion. -sp cx normal resp annabelle Cdiff colitis -Cdiff toxin A/b EIA + Fever, SP Acute respiratory failure s/p intubation 02/06 (for airway protection), s/p extubated 02/07; now no VM CONS bacteremia; likely contaminant -02/05 Bcx / CONS; 02/10 Bcx NTD hx of ESBL UTI ESRD on HD GERD Dm2 CVA w/ R side weakness HTN HLD PVD s/p AKA Alzheimer dementia lung mass multiple gastric polyps s/p polypectomy gastric antral vascular ectasis DVT AR resident Plan: -Cont PO Vancomycin 125mg qid #01/26-14 -02/13 SP Ceftriaxone #2 -02/12 SP Zosyn #6 -f/u Bcx x2 -f.u cx -Monitor CBC/CMP, temperatures -aspiration precautions Thank you for this consultation. Will continue to follow along with you. Subjective Allergies: Coded Allergies: No Known Allergies (Unverified , 09/15/16) Subjective afebrile wbc improving repeat Bcx NTD at 2l NC Objective Vital Signs Last 24 Hour Vital Signs Date Time Temp Pulse Resp B/P (MAP) Pulse Ox O2 Delivery O2 Flow Rate FiO2 02/14/19 11:53 97.8 93 20 124/55 (78) 95 02/14/19 10:44 81 18 97 02/14/19 09:00 Nasal Cannula 2.0 02/14/19 08:30 81 21 97 Facial 30 02/14/19 07:53 98.0 89 19 125/56 (79) 95 02/14/19 07:25 83 22 97 Facial 30 02/14/19 07:25 97 Bi-pap 30 02/14/19 07:25 Bi-pap 30 02/14/19 05:52 119/64 02/14/19 05:51 83 20 97 Facial 30 02/14/19 04:00 97.6 81 18 121/63 (82) 99 02/14/19 04:00 98.1 86 18 118/59 (78) 96 02/14/19 03:38 85 02/14/19 02:28 80 30 96 Facial 30 02/14/19 00:52 82 20 96 Facial 30 02/14/19 00:08 115/54 02/14/19 00:00 98.4 86 20 115/54 (74) 100 02/14/19 00:00 98.4 86 20 115/54 (74) 100 02/14/19 00:00 Nasal Cannula 2.0 02/13/19 23:46 86 02/13/19 23:00 85 17 98 Facial 30 02/13/19 20:00 Nasal Cannula 2.0 02/13/19 20:00 97.9 80 20 119/60 (79) 100 02/13/19 19:10 82 02/13/19 18:50 98 Nasal Cannula 3.0 32 02/13/19 18:50 Nasal Cannula 3.0 32 02/13/19 17:53 114/68 02/13/19 16:00 98.1 82 18 114/68 (83) 100 02/13/19 16:00 Nasal Cannula 2.0 02/13/19 15:14 78 02/13/19 13:15 131/78 Height (Feet): 5 Height (Inches): 6.00 Weight (Pounds): 175 Objective GENERAL: Shows to be elderly female, on BiPAP therapy. NECK: Supple. No jugular venous distention. LUNGS: She does show some crackles and rhonchi. CARDIAC: Regular rhythm. Tachycardic. No heaves or thrills. ABDOMEN: Soft and nontender. Positive bowel sounds. EXTREMITIES: Right above-knee amputation Microbiology Date/Time Source Procedure Growth Status 02/12/19 00:00 Stool Clostridium difficile Toxin Assay - Final Complete Laboratory Tests Test 02/14/19 03:30 White Blood Count 12.3 K/UL (4.8-10.8) H Red Blood Count 3.29 M/UL (4.20-5.40) L Hemoglobin 9.6 G/DL (12.0-16.0) L Hematocrit 29.3 % (37.0-47.0) L Mean Corpuscular Volume 89 FL (80-99) Mean Corpuscular Hemoglobin 29.1 PG (27.0-31.0) Mean Corpuscular Hemoglobin Concent 32.7 G/DL (32.0-36.0) Red Cell Distribution Width 14.9 % (11.6-14.8) H Platelet Count 336 K/UL (150-450) Mean Platelet Volume 10.8 FL (6.5-10.1) H Neutrophils (%) (Auto) 75.2 % (45.0-75.0) H Lymphocytes (%) (Auto) 11.0 % (20.0-45.0) L Monocytes (%) (Auto) 7.2 % (1.0-10.0) Eosinophils (%) (Auto) 6.1 % (0.0-3.0) H Basophils (%) (Auto) 0.5 % (0.0-2.0) Sodium Level 140 MMOL/L (136-145) Potassium Level 3.4 MMOL/L (3.5-5.1) L Chloride Level 102 MMOL/L (98-107) Carbon Dioxide Level 27 MMOL/L (21-32) Anion Gap 11 mmol/L (5-15) Blood Urea Nitrogen 46 mg/dL (7-18) H Creatinine 3.3 MG/DL (0.55-1.30) H Estimat Glomerular Filtration Rate 16.8 mL/min (>60) Glucose Level 191 MG/DL (74-106) H Calcium Level 7.8 MG/DL (8.5-10.1) L Phosphorus Level 1.8 MG/DL (2.5-4.9) L Magnesium Level 1.9 MG/DL (1.8-2.4) Total Bilirubin 0.2 MG/DL (0.2-1.0) Aspartate Amino Transf (AST/SGOT) 22 U/L (15-37) Alanine Aminotransferase (ALT/SGPT) 25 U/L (12-78) Alkaline Phosphatase 103 U/L (46-116) Troponin I 1.154 ng/mL (0.000-0.056) C-Reactive Protein, Quantitative 5.2 mg/dL (0.00-0.90) H Pro-B-Type Natriuretic Peptide > 44477 pg/mL (0-125) H Total Protein 5.7 G/DL (6.4-8.2) L Albumin 1.7 G/DL (3.4-5.0) L Globulin 4.0 g/dL Albumin/Globulin Ratio 0.4 (1.0-2.7) L Random Vancomycin Level 0.3 ug/mL Current Medications Medications (Trade) Dose Ordered Sig/Althea Route PRN Reason Start Time Stop Time Status Last Admin Dose Admin Acetaminophen (Tylenol) 650 mg Q4H PRN ORAL T>100.5 02/14/19 04:03 03/08/19 04:02 Aspirin (ASA) 81 mg DAILY NG 02/14/19 09:00 03/12/19 08:59 02/14/19 09:08 Dextrose (Dextrose 50%) 25 ml Q30M PRN IV Hypoglycemia 02/14/19 04:00 03/08/19 10:29 Dextrose (Dextrose 50%) 50 ml Q30M PRN IV Hypoglycemia 02/14/19 04:00 03/08/19 10:29 Diphenhydramine HCl (Benadryl) 25 mg Q6H PRN ORAL Itching/Pruritis 02/14/19 04:03 03/08/19 04:02 Epoetin Romeo (Epoetin Romeo(ESRD on dialysis)) 10,000 unit SUN-SUN-SUN SUBQ 02/14/19 21:00 03/14/19 20:59 Famotidine (Pepcid I.v.) 20 mg Q24H IVP 02/14/19 09:00 03/16/19 08:59 02/14/19 09:09 Metoprolol Tartrate 2.5 mg/ Dextrose 57.5 ml @ 130 mls/hr Q6H PRN IVPB heart rate greater than 125 02/14/19 04:03 03/14/19 04:02 Nitroglycerin (Nitro-Bid) 2 inch Q6HR TOPIC 02/14/19 06:00 03/10/19 17:59 02/14/19 05:52 Nitroglycerin (Ntg) 0.4 mg Q5M X 3 DOSES PRN SL Prn Chest Pain 02/14/19 04:00 03/08/19 10:29 Ondansetron HCl (Zofran) 4 mg Q6H PRN IVP Nausea & Vomiting 02/14/19 04:03 03/08/19 04:02 Polyethylene Glycol (Miralax) 17 gm HSPRN PRN ORAL Constipation 02/14/19 21:00 03/08/19 20:59 Temazepam (Restoril) 15 mg HSPRN PRN ORAL Insomnia 02/14/19 21:00 02/15/19 21:00 Vancomycin HCl (Firvanq) 125 mg FOUR TIMES A DAY NG 02/14/19 09:00 02/19/19 12:59 02/14/19 09:08 Daisy Arce M.D. Feb 14, 2019 12:06
--- NOTE | 2019-02-14 12:38 | Pulmonology Progress Note ---
Assessment/Plan Problems: (1) C. 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 dvt prophylaxis isolation for C-diff Subjective ROS Limited/Unobtainable: No Constitutional: Reports: no symptoms HEENT: Repors: no symptoms Respiratory: Reports: no symptoms Allergies: Coded Allergies: No Known Allergies (Unverified , 09/15/16) Objective Last 24 Hour Vital Signs Date Time Temp Pulse Resp B/P (MAP) Pulse Ox O2 Delivery O2 Flow Rate FiO2 02/14/19 11:53 97.8 93 20 124/55 (78) 95 02/14/19 10:44 81 18 97 02/14/19 09:00 Nasal Cannula 2.0 02/14/19 08:30 81 21 97 Facial 30 02/14/19 07:53 98.0 89 19 125/56 (79) 95 02/14/19 07:25 83 22 97 Facial 30 02/14/19 07:25 97 Bi-pap 30 02/14/19 07:25 Bi-pap 30 02/14/19 05:52 119/64 02/14/19 05:51 83 20 97 Facial 30 02/14/19 04:00 97.6 81 18 121/63 (82) 99 02/14/19 04:00 98.1 86 18 118/59 (78) 96 02/14/19 03:38 85 02/14/19 02:28 80 30 96 Facial 30 02/14/19 00:52 82 20 96 Facial 30 02/14/19 00:08 115/54 02/14/19 00:00 98.4 86 20 115/54 (74) 100 02/14/19 00:00 98.4 86 20 115/54 (74) 100 02/14/19 00:00 Nasal Cannula 2.0 02/13/19 23:46 86 02/13/19 23:00 85 17 98 Facial 30 02/13/19 20:00 Nasal Cannula 2.0 02/13/19 20:00 97.9 80 20 119/60 (79) 100 02/13/19 19:10 82 02/13/19 18:50 98 Nasal Cannula 3.0 32 02/13/19 18:50 Nasal Cannula 3.0 32 02/13/19 17:53 114/68 02/13/19 16:00 98.1 82 18 114/68 (83) 100 02/13/19 16:00 Nasal Cannula 2.0 02/13/19 15:14 78 02/13/19 13:15 131/78 Intake and Output 02/13/19 02/14/19 18:59 06:59 Intake Total 660 ml 535 ml Output Total 2520 ml 20 ml Balance -1860 ml 515 ml Free Water 30 ml IV Total 55 ml Tube Feeding 600 ml 450 ml Other 60 ml Output Urine Total 470 ml 20 ml Stool Total 50 ml Hemodialysis UF 2000 ml General Appearance: WD/WN HEENT: normocephalic Respiratory/Chest: chest wall non-tender, lungs clear Breasts: no masses Cardiovascular: normal peripheral pulses Abdomen: normal bowel sounds, soft, non tender 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 Microbiology Date/Time Source Procedure Growth Status 02/12/19 00:00 Stool Clostridium difficile Toxin Assay - Final Complete Laboratory Tests 02/14/19 03:30: White Blood Count 12.3H, Red Blood Count 3.29L, Hemoglobin 9.6L, Hematocrit 29.3L, Mean Corpuscular Volume 89, Mean Corpuscular Hemoglobin 29.1, Mean Corpuscular Hemoglobin Concent 32.7, Red Cell Distribution Width 14.9H, Platelet Count 336, Mean Platelet Volume 10.8H, Neutrophils (%) (Auto) 75.2H, Lymphocytes (%) (Auto) 11.0L, Monocytes (%) (Auto) 7.2, Eosinophils (%) (Auto) 6.1H, Basophils (%) (Auto) 0.5, Sodium Level 140, Potassium Level 3.4L, Chloride Level 102, Carbon Dioxide Level 27, Anion Gap 11, Blood Urea Nitrogen 46H, Creatinine 3.3H, Estimat Glomerular Filtration Rate 16.8, Glucose Level 191H, Calcium Level 7.8L, Phosphorus Level 1.8L, Magnesium Level 1.9, Total Bilirubin 0.2, Aspartate Amino Transf (AST/SGOT) 22, Alanine Aminotransferase ( ALT/SGPT) 25, Alkaline Phosphatase 103, Troponin I 1.154H, C-Reactive Protein, Quantitative 5.2H, Pro-B-Type Natriuretic Peptide > 17714T, Total Protein 5.7L, Albumin 1.7L, Globulin 4.0, Albumin/Globulin Ratio 0.4L, Random Vancomycin Level 0.3 Current Medications Medications (Trade) Dose Ordered Sig/Althea Route PRN Reason Start Time Stop Time Status Last Admin Dose Admin Acetaminophen (Tylenol) 650 mg Q4H PRN ORAL T>100.5 02/14/19 04:03 03/08/19 04:02 Aspirin (ASA) 81 mg DAILY NG 02/14/19 09:00 03/12/19 08:59 02/14/19 09:08 Dextrose (Dextrose 50%) 25 ml Q30M PRN IV Hypoglycemia 02/14/19 04:00 03/08/19 10:29 Dextrose (Dextrose 50%) 50 ml Q30M PRN IV Hypoglycemia 02/14/19 04:00 03/08/19 10:29 Diphenhydramine HCl (Benadryl) 25 mg Q6H PRN ORAL Itching/Pruritis 02/14/19 04:03 03/08/19 04:02 Epoetin Romeo (Epoetin Romeo(ESRD on dialysis)) 10,000 unit SUN-SUN-SUN SUBQ 02/14/19 21:00 03/14/19 20:59 Famotidine (Pepcid I.v.) 20 mg Q24H IVP 02/14/19 09:00 03/16/19 08:59 02/14/19 09:09 Metoprolol Tartrate 2.5 mg/ Dextrose 57.5 ml @ 130 mls/hr Q6H PRN IVPB heart rate greater than 125 02/14/19 04:03 03/14/19 04:02 Nitroglycerin (Nitro-Bid) 2 inch Q6HR TOPIC 02/14/19 06:00 03/10/19 17:59 02/14/19 05:52 Nitroglycerin (Ntg) 0.4 mg Q5M X 3 DOSES PRN SL Prn Chest Pain 02/14/19 04:00 03/08/19 10:29 Ondansetron HCl (Zofran) 4 mg Q6H PRN IVP Nausea & Vomiting 02/14/19 04:03 03/08/19 04:02 Polyethylene Glycol (Miralax) 17 gm HSPRN PRN ORAL Constipation 02/14/19 21:00 03/08/19 20:59 Temazepam (Restoril) 15 mg HSPRN PRN ORAL Insomnia 02/14/19 21:00 02/15/19 21:00 Vancomycin HCl (Firvanq) 125 mg FOUR TIMES A DAY NG 02/14/19 09:00 02/19/19 12:59 02/14/19 09:08 Lit Cerna MD Feb 14, 2019 12:38
[2019-02-14 15:49] VITALS: BP 132/69
--- NOTE | 2019-02-14 17:37 | Nephrology Progress Note ---
Assessment/Plan Problem List: (1) Upper GI bleeding (2) Hemorrhagic shock (3) ESRF (end stage renal failure) (4) NSTEMI (non-ST elevated myocardial infarction) (5) Respiratory failure, acute (6) Lung mass Assessment admitted with massive GI bleed and hypotension ESRD : M W Fr h/o UTI now , on vent, respitatory failure Other medical conditions; Type 2 diabetes. Hypertension. h/o Anemia of chronic renal disease Hypercholesterolemia. Peripheral vascular disease. Alzheimer's dementia. ?? LUNG Pathology PAST SURGICAL HISTORY: 1. Right [id number] amputation. 2. Open reduction internal fixation Plan Plan: on BIPAP PRN start EPO change protonix po DC IV fluid HD 02/13 next 02/15 monitor H&h monitor troponin I monitor lytes and renal parameters antibiotics for uti start NTG Paste Subjective ROS Limited/Unobtainable: No Constitutional: Reports: malaise, weakness Objective Objective Last 24 Hour Vital Signs Date Time Temp Pulse Resp B/P (MAP) Pulse Ox O2 Delivery O2 Flow Rate FiO2 02/14/19 17:07 132/69 02/14/19 16:00 96 02/14/19 15:49 98.3 83 20 132/69 (90) 93 02/14/19 13:01 124/55 02/14/19 12:00 95 02/14/19 11:53 97.8 93 20 124/55 (78) 95 02/14/19 10:44 81 18 97 02/14/19 09:00 Nasal Cannula 2.0 02/14/19 08:30 81 21 97 Facial 30 02/14/19 08:00 87 02/14/19 07:53 98.0 89 19 125/56 (79) 95 02/14/19 07:25 83 22 97 Facial 30 02/14/19 07:25 97 Bi-pap 30 02/14/19 07:25 Bi-pap 30 02/14/19 05:52 119/64 02/14/19 05:51 83 20 97 Facial 30 02/14/19 04:00 97.6 81 18 121/63 (82) 99 02/14/19 04:00 98.1 86 18 118/59 (78) 96 02/14/19 03:38 85 02/14/19 02:28 80 30 96 Facial 30 02/14/19 00:52 82 20 96 Facial 30 02/14/19 00:08 115/54 02/14/19 00:00 98.4 86 20 115/54 (74) 100 02/14/19 00:00 98.4 86 20 115/54 (74) 100 02/14/19 00:00 Nasal Cannula 2.0 02/13/19 23:46 86 02/13/19 23:00 85 17 98 Facial 30 02/13/19 20:00 Nasal Cannula 2.0 02/13/19 20:00 97.9 80 20 119/60 (79) 100 02/13/19 19:10 82 02/13/19 18:50 98 Nasal Cannula 3.0 32 02/13/19 18:50 Nasal Cannula 3.0 32 02/13/19 17:53 114/68 Intake and Output 02/13/19 02/14/19 19:00 07:00 Intake Total 650 ml 490 ml Output Total 2490 ml 20 ml Balance -1840 ml 470 ml Free Water 30 ml IV Total 55 ml Tube Feeding 590 ml 405 ml Other 60 ml Output Urine Total 440 ml 20 ml Stool Total 50 ml Hemodialysis UF 2000 ml Laboratory Tests 02/14/19 03:30: White Blood Count 12.3H, Red Blood Count 3.29L, Hemoglobin 9.6L, Hematocrit 29.3L, Mean Corpuscular Volume 89, Mean Corpuscular Hemoglobin 29.1, Mean Corpuscular Hemoglobin Concent 32.7, Red Cell Distribution Width 14.9H, Platelet Count 336, Mean Platelet Volume 10.8H, Neutrophils (%) (Auto) 75.2H, Lymphocytes (%) (Auto) 11.0L, Monocytes (%) (Auto) 7.2, Eosinophils (%) (Auto) 6.1H, Basophils (%) (Auto) 0.5, Sodium Level 140, Potassium Level 3.4L, Chloride Level 102, Carbon Dioxide Level 27, Anion Gap 11, Blood Urea Nitrogen 46H, Creatinine 3.3H, Estimat Glomerular Filtration Rate 16.8, Glucose Level 191H, Calcium Level 7.8L, Phosphorus Level 1.8L, Magnesium Level 1.9, Total Bilirubin 0.2, Aspartate Amino Transf (AST/SGOT) 22, Alanine Aminotransferase ( ALT/SGPT) 25, Alkaline Phosphatase 103, Troponin I 1.154H, C-Reactive Protein, Quantitative 5.2H, Pro-B-Type Natriuretic Peptide > 82595D, Total Protein 5.7L, Albumin 1.7L, Globulin 4.0, Albumin/Globulin Ratio 0.4L, Random Vancomycin Level 0.3 Height (Feet): 5 Height (Inches): 6.00 Weight (Pounds): 175 General Appearance: no apparent distress Cardiovascular: normal rate Respiratory/Chest: decreased breath sounds Abdomen: soft Objective no change Marques Motta MD Feb 14, 2019 17:37
--- NOTE | 2019-02-14 17:47 | NUR ---
NURSE NOTES: dialysis ordered for 02.15.2019 [facility] notified. Rene HUBER called back and confirmed.
--- NOTE | 2019-02-14 19:25 | Cardiology Progress Note ---
Assessment/Plan Assessment/Plan 1. [id number] myocardial infarction likely demand relatred 2. Recent gastrointestinal bleeding, hemoclip placement. 3. History of vomiting and possible aspiration. 4. Pneumonia. 5. Diabetes mellitus. 6. Tachycardia. 7. Anemia. 8. Leukocytosis, likely secondary to pneumonia. 9. End-stage renal disease, on hemodialysis. 10. Bacteremia contaminant 11. c diff colitis cxr reviewed looks bilat infiltrates still but clincialy she is better tele sinus trop down trending but slow due to renal insuf now on nc ngt out is on Ecotrin abx hgb stable on ecotrin improved pulm lorenzana despite cxr being so abn Subjective Cardiovascular: Denies: chest pain, lightheadedness Respiratory: Reports: shortness of breath Gastrointestinal/Abdominal: Denies: abdominal pain Genitourinary: Denies: no symptoms Objective Last 24 Hour Vital Signs Date Time Temp Pulse Resp B/P (MAP) Pulse Ox O2 Delivery O2 Flow Rate FiO2 02/14/19 17:07 132/69 02/14/19 16:00 96 02/14/19 15:49 98.3 83 20 132/69 (90) 93 02/14/19 13:01 124/55 02/14/19 12:00 95 02/14/19 11:53 97.8 93 20 124/55 (78) 95 02/14/19 10:44 81 18 97 02/14/19 09:00 Nasal Cannula 2.0 02/14/19 08:30 81 21 97 Facial 30 02/14/19 08:00 87 02/14/19 07:53 98.0 89 19 125/56 (79) 95 02/14/19 07:25 83 22 97 Facial 30 02/14/19 07:25 97 Bi-pap 30 02/14/19 07:25 Bi-pap 30 02/14/19 05:52 119/64 02/14/19 05:51 83 20 97 Facial 30 02/14/19 04:00 97.6 81 18 121/63 (82) 99 02/14/19 04:00 98.1 86 18 118/59 (78) 96 02/14/19 03:38 85 02/14/19 02:28 80 30 96 Facial 30 02/14/19 00:52 82 20 96 Facial 30 02/14/19 00:08 115/54 02/14/19 00:00 98.4 86 20 115/54 (74) 100 02/14/19 00:00 98.4 86 20 115/54 (74) 100 02/14/19 00:00 Nasal Cannula 2.0 02/13/19 23:46 86 02/13/19 23:00 85 17 98 Facial 30 02/13/19 20:00 Nasal Cannula 2.0 02/13/19 20:00 97.9 80 20 119/60 (79) 100 General Appearance: no apparent distress, alert Neck: supple Cardiovascular: normal rate Respiratory/Chest: lungs clear - ant Abdomen: normal bowel sounds, non tender, soft Extremities: no swelling Intake and Output 02/13/19 02/14/19 19:00 07:00 Intake Total 650 ml 490 ml Output Total 2490 ml 20 ml Balance -1840 ml 470 ml Free Water 30 ml IV Total 55 ml Tube Feeding 590 ml 405 ml Other 60 ml Output Urine Total 440 ml 20 ml Stool Total 50 ml Hemodialysis UF 2000 ml Laboratory Tests Test 02/14/19 03:30 White Blood Count 12.3 K/UL (4.8-10.8) H Red Blood Count 3.29 M/UL (4.20-5.40) L Hemoglobin 9.6 G/DL (12.0-16.0) L Hematocrit 29.3 % (37.0-47.0) L Mean Corpuscular Volume 89 FL (80-99) Mean Corpuscular Hemoglobin 29.1 PG (27.0-31.0) Mean Corpuscular Hemoglobin Concent 32.7 G/DL (32.0-36.0) Red Cell Distribution Width 14.9 % (11.6-14.8) H Platelet Count 336 K/UL (150-450) Mean Platelet Volume 10.8 FL (6.5-10.1) H Neutrophils (%) (Auto) 75.2 % (45.0-75.0) H Lymphocytes (%) (Auto) 11.0 % (20.0-45.0) L Monocytes (%) (Auto) 7.2 % (1.0-10.0) Eosinophils (%) (Auto) 6.1 % (0.0-3.0) H Basophils (%) (Auto) 0.5 % (0.0-2.0) Sodium Level 140 MMOL/L (136-145) Potassium Level 3.4 MMOL/L (3.5-5.1) L Chloride Level 102 MMOL/L (98-107) Carbon Dioxide Level 27 MMOL/L (21-32) Anion Gap 11 mmol/L (5-15) Blood Urea Nitrogen 46 mg/dL (7-18) H Creatinine 3.3 MG/DL (0.55-1.30) H Estimat Glomerular Filtration Rate 16.8 mL/min (>60) Glucose Level 191 MG/DL (74-106) H Calcium Level 7.8 MG/DL (8.5-10.1) L Phosphorus Level 1.8 MG/DL (2.5-4.9) L Magnesium Level 1.9 MG/DL (1.8-2.4) Total Bilirubin 0.2 MG/DL (0.2-1.0) Aspartate Amino Transf (AST/SGOT) 22 U/L (15-37) Alanine Aminotransferase (ALT/SGPT) 25 U/L (12-78) Alkaline Phosphatase 103 U/L (46-116) Troponin I 1.154 ng/mL (0.000-0.056) C-Reactive Protein, Quantitative 5.2 mg/dL (0.00-0.90) H Pro-B-Type Natriuretic Peptide > 67137 pg/mL (0-125) H Total Protein 5.7 G/DL (6.4-8.2) L Albumin 1.7 G/DL (3.4-5.0) L Globulin 4.0 g/dL Albumin/Globulin Ratio 0.4 (1.0-2.7) L Random Vancomycin Level 0.3 ug/mL Microbiology Date/Time Source Procedure Growth Status 02/12/19 00:00 Stool Clostridium difficile Toxin Assay - Final Complete Kaushik Franco MD Feb 14, 2019 19:25
--- NOTE | 2019-02-14 19:35 | NUR ---
NURSE NOTES: Received report from Gibson Mauro RN. Pt is resting in the bed, SR in the monitor, no respiratory distress in 2L NC. Rectal tube, raphael cath are applied and patent and draining. IV site has no s/s of infection. Sing of no BP, No elana puncher and fastener for L arm d/t AV shunt on Left side. Bed alarm is on, bed in lowest position, breaks are engaged. Call light, and side table are w/in reach. Will follow plans of care.
[2019-02-14 20:00] VITALS: BP 123/61
[2019-02-14] MEDS ORDERED: Epoetin Alfa(ESRD on dialysis)10,000 unit/ml vial SUBQ SCH ×2 (21:00)
[2019-02-14] MEDS ORDERED: Miralax 17gm pkt ORAL PRN (21:00)
[2019-02-15] VITALS (7 sets, daily range): BP systolic 98–135; BP diastolic 54–96
[2019-02-15] MEDS: Nitroglycerin 2% oint pkt TOPIC SCH ×4 (00:09→16:58)
--- NOTE | 2019-02-15 01:00 | NUR ---
NURSE NOTES: Pt was cleaned, dried and repositioned. No distress noted. Will continue to monitor.
[2019-02-15 07:13] LABS: BASOPHILS % (AUTO) 0.5 % (0.0-2.0); EOSINOPHILS % (AUTO) 3.3 % (0.0-3.0); HEMATOCRIT 30.9 % (37.0-47.0); HEMOGLOBIN 10.1 G/DL (12.0-16.0); LYMPHOCYTES % (AUTO) 11.1 % (20.0-45.0); MEAN CORPUSCULAR VOLUME 90 FL (80-99); MONOCYTES % (AUTO) 7.8 % (1.0-10.0); NEUTROPHILS % (AUTO) 77.3 % (45.0-75.0); PLATELET COUNT 372 K/UL (150-450); RED BLOOD COUNT 3.45 M/UL (4.20-5.40); RED CELL DISTRIBUTION WIDTH 15.6 % (11.6-14.8); WHITE BLOOD COUNT 12.9 K/UL (4.8-10.8)
--- NOTE | 2019-02-15 07:15 | NUR ---
HAND-OFF: Report given to Gibson Pimentel RN.
[2019-02-15 07:42] LABS: ALANINE AMINOTRANSFERASE 19 U/L (12-78); ALBUMIN 1.7 G/DL (3.4-5.0); ALBUMIN/GLOBULIN RATIO 0.4 (1.0-2.7); ALKALINE PHOSPHATASE 96 U/L (46-116); ANION GAP 11 mmol/L (5-15); ASPARTATE AMINO TRANSFERASE 14 U/L (15-37); BILIRUBIN,TOTAL 0.2 MG/DL (0.2-1.0); BLOOD UREA NITROGEN 47 mg/dL (7-18); CALCIUM 7.6 MG/DL (8.5-10.1); CARBON DIOXIDE 27 MMOL/L (21-32); CHLORIDE 105 MMOL/L (98-107); CREATININE 3.9 MG/DL (0.55-1.30); POTASSIUM 3.2 MMOL/L (3.5-5.1); SODIUM 143 MMOL/L (136-145)
--- NOTE | 2019-02-15 07:56 | Infectious Diseases Prog Note ---
Assessment/Plan Assessment/Plan Abx: Zosyn 02/07- Assessment: Hypotension , SP- 2ry to massive GIB Leukocytosis, improving- in the setting of above and aspiration PNA and Cdiff -02/13 CXR: Extensive airspace disease probably due to CHF with some interval improvement. -02/12 CXR: Extensive airspace opacities present bilaterally without change -CXR: Interval worsening bilateral airspace opacities, more consolidated in the right upper lobe Query small right pleural effusion. -sp cx normal resp annabelle Cdiff colitis -Cdiff toxin A/b EIA + Fever, SP Acute respiratory failure s/p intubation 02/06 (for airway protection), s/p extubated 02/07; now no VM CONS bacteremia; likely contaminant -02/05 Bcx / CONS; 02/10 Bcx NTD hx of ESBL UTI ESRD on HD GERD Dm2 CVA w/ R side weakness HTN HLD PVD s/p AKA Alzheimer dementia lung mass multiple gastric polyps s/p polypectomy gastric antral vascular ectasis DVT NH resident Plan: -Cont PO Vancomycin 125mg qid #/-14 -02/13 SP Ceftriaxone #2 -02/12 SP Zosyn #6 -f/u Bcx x2 -f.u cx -Monitor CBC/CMP, temperatures -aspiration precautions Will continue to follow along with you. Subjective Allergies: Coded Allergies: No Known Allergies (Unverified , 09/15/16) Subjective Afebrile ROC Mild Leukocytosis Objective Vital Signs Last 24 Hour Vital Signs Date Time Temp Pulse Resp B/P (MAP) Pulse Ox O2 Delivery O2 Flow Rate FiO2 02/15/19 07:26 Nasal Cannula 3.0 32 02/15/19 07:26 96 Nasal Cannula 3.0 32 02/15/19 06:37 109/54 02/15/19 05:02 80 21 97 Facial 30 02/15/19 04:00 98.1 87 22 109/54 (72) 98 02/15/19 03:37 86 02/15/19 03:25 86 22 96 Facial 30 02/15/19 02:56 90 130/78 02/15/19 02:34 90 130/78 (95) 02/15/19 00:40 84 24 98 Facial 30 02/15/19 00:09 123/61 02/15/19 00:00 98.8 97 20 124/59 (80) 97 02/14/19 23:37 95 02/14/19 21:55 97 Nasal Cannula 3.0 32 02/14/19 21:55 Nasal Cannula 3.0 32 02/14/19 21:00 Nasal Cannula 2.0 02/14/19 20:00 99.3 92 20 123/61 (81) 97 02/14/19 19:44 100 02/14/19 17:07 132/69 02/14/19 16:00 96 02/14/19 15:49 98.3 83 20 132/69 (90) 93 02/14/19 13:01 124/55 02/14/19 12:00 95 02/14/19 11:53 97.8 93 20 124/55 (78) 95 02/14/19 10:44 81 18 97 02/14/19 09:00 Nasal Cannula 2.0 02/14/19 08:30 81 21 97 Facial 30 02/14/19 08:00 87 Height (Feet): 5 Height (Inches): 6.00 Weight (Pounds): 171 Objective GENERAL: NAD, On NC LUNGS: Course B/L CARDIAC: Regular rhythm. Tachycardic. ABDOMEN: Soft and nontender. Positive bowel sounds. EXTREMITIES: Right above-knee amputation Laboratory Tests Test 02/15/19 05:30 White Blood Count 12.9 K/UL (4.8-10.8) H Red Blood Count 3.45 M/UL (4.20-5.40) L Hemoglobin 10.1 G/DL (12.0-16.0) L Hematocrit 30.9 % (37.0-47.0) L Mean Corpuscular Volume 90 FL (80-99) Mean Corpuscular Hemoglobin 29.3 PG (27.0-31.0) Mean Corpuscular Hemoglobin Concent 32.7 G/DL (32.0-36.0) Red Cell Distribution Width 15.6 % (11.6-14.8) H Platelet Count 372 K/UL (150-450) Mean Platelet Volume 9.2 FL (6.5-10.1) Neutrophils (%) (Auto) 77.3 % (45.0-75.0) H Lymphocytes (%) (Auto) 11.1 % (20.0-45.0) L Monocytes (%) (Auto) 7.8 % (1.0-10.0) Eosinophils (%) (Auto) 3.3 % (0.0-3.0) H Basophils (%) (Auto) 0.5 % (0.0-2.0) Sodium Level 143 MMOL/L (136-145) Potassium Level 3.2 MMOL/L (3.5-5.1) L Chloride Level 105 MMOL/L (98-107) Carbon Dioxide Level 27 MMOL/L (21-32) Anion Gap 11 mmol/L (5-15) Blood Urea Nitrogen 47 mg/dL (7-18) H Creatinine 3.9 MG/DL (0.55-1.30) H Estimat Glomerular Filtration Rate 13.9 mL/min (>60) Glucose Level 157 MG/DL (74-106) H Calcium Level 7.6 MG/DL (8.5-10.1) L Phosphorus Level 2.0 MG/DL (2.5-4.9) L Magnesium Level 2.0 MG/DL (1.8-2.4) Total Bilirubin 0.2 MG/DL (0.2-1.0) Aspartate Amino Transf (AST/SGOT) 14 U/L (15-37) L Alanine Aminotransferase (ALT/SGPT) 19 U/L (12-78) Alkaline Phosphatase 96 U/L (46-116) Troponin I 0.517 ng/mL (0.000-0.056) C-Reactive Protein, Quantitative 2.7 mg/dL (0.00-0.90) H Total Protein 5.9 G/DL (6.4-8.2) L Albumin 1.7 G/DL (3.4-5.0) L Globulin 4.2 g/dL Albumin/Globulin Ratio 0.4 (1.0-2.7) L Current Medications Medications (Trade) Dose Ordered Sig/Althea Route PRN Reason Start Time Stop Time Status Last Admin Dose Admin Acetaminophen (Tylenol) 650 mg Q4H PRN ORAL T>100.5 02/14/19 04:03 03/08/19 04:02 Aspirin (ASA) 81 mg DAILY NG 02/14/19 09:00 03/12/19 08:59 02/14/19 09:08 Dextrose (Dextrose 50%) 25 ml Q30M PRN IV Hypoglycemia 02/14/19 04:00 03/08/19 10:29 Dextrose (Dextrose 50%) 50 ml Q30M PRN IV Hypoglycemia 02/14/19 04:00 03/08/19 10:29 Diphenhydramine HCl (Benadryl) 25 mg Q6H PRN ORAL Itching/Pruritis 02/14/19 04:03 03/08/19 04:02 Epoetin Romeo (Epoetin Romeo(ESRD on dialysis)) 10,000 unit SUN- SUBQ 02/14/19 21:00 03/14/19 20:59 02/14/19 21:52 Metoprolol Tartrate 2.5 mg/ Dextrose 57.5 ml @ 130 mls/hr Q6H PRN IVPB heart rate greater than 125 02/14/19 04:03 03/14/19 04:02 02/15/19 02:56 Nitroglycerin (Nitro-Bid) 2 inch Q6HR TOPIC 02/14/19 06:00 03/10/19 17:59 02/15/19 06:37 Nitroglycerin (Ntg) 0.4 mg Q5M X 3 DOSES PRN SL Prn Chest Pain 02/14/19 04:00 03/08/19 10:29 Ondansetron HCl (Zofran) 4 mg Q6H PRN IVP Nausea & Vomiting 02/14/19 04:03 03/08/19 04:02 Pantoprazole (Protonix) 40 mg Q12HR ORAL 02/14/19 21:00 03/16/19 20:59 02/14/19 21:51 Polyethylene Glycol (Miralax) 17 gm HSPRN PRN ORAL Constipation 02/14/19 21:00 03/08/19 20:59 Temazepam (Restoril) 15 mg HSPRN PRN ORAL Insomnia 02/14/19 21:00 02/15/19 21:00 Vancomycin HCl (Firvanq) 125 mg FOUR TIMES A DAY NG 02/14/19 09:00 02/19/19 12:59 02/14/19 21:51 Alexey Peña MD Feb 15, 2019 07:56
[2019-02-15] MEDS: Lactobacillus-GG tablet ORAL SCH ×3 (08:50→16:59)
[2019-02-15] MEDS: Vancomycin oral 125mg/2.5ml NG SCH ×4 (08:50→21:01)
[2019-02-15] MEDS: Aspirin Baby 81mg NG SCH (08:50)
[2019-02-15] MEDS ORDERED: Phospha 250 Neutral tab ORAL SCH (09:00)
--- NOTE | 2019-02-15 09:26 | General Progress Note ---
Assessment/Plan Problem List: (1) Upper GI bleeding ICD Codes: K92.2 - Gastrointestinal hemorrhage, unspecified SNOMED: 16158666 (2) Anemia ICD Codes: D64.9 - Anemia, unspecified SNOMED: 998425003 (3) Diabetes mellitus ICD Codes: E11.9 - Type 2 diabetes mellitus without complications SNOMED: 65361047 Assessment/Plan s/p EGD SUMMARY OF FINDINGS: Most probably bleeding from the polypectomy site status post epinephrine injection, hemoclip placement, and epinephrine washed. stable H&H cdiff positive on renal diet ASA dc ppi, add H2B (due to C.diff) abx per ID monitor H&H, prn transfusion follow labs pending HD today Subjective ROS Limited/Unobtainable: Yes Allergies: Coded Allergies: No Known Allergies (Unverified , 09/15/16) Objective Last 24 Hour Vital Signs Date Time Temp Pulse Resp B/P (MAP) Pulse Ox O2 Delivery O2 Flow Rate FiO2 02/15/19 09:10 Nasal Cannula 2.0 02/15/19 08:25 97.8 68 19 135/96 (109) 100 02/15/19 07:26 Nasal Cannula 3.0 32 02/15/19 07:26 96 Nasal Cannula 3.0 32 02/15/19 06:37 109/54 02/15/19 05:02 80 21 97 Facial 30 02/15/19 04:00 98.1 87 22 109/54 (72) 98 02/15/19 03:37 86 02/15/19 03:25 86 22 96 Facial 30 02/15/19 02:56 90 130/78 02/15/19 02:34 90 130/78 (95) 02/15/19 00:40 84 24 98 Facial 30 02/15/19 00:09 123/61 02/15/19 00:00 98.8 97 20 124/59 (80) 97 02/14/19 23:37 95 02/14/19 21:55 97 Nasal Cannula 3.0 32 02/14/19 21:55 Nasal Cannula 3.0 32 02/14/19 21:00 Nasal Cannula 2.0 02/14/19 20:00 99.3 92 20 123/61 (81) 97 02/14/19 19:44 100 02/14/19 17:07 132/69 02/14/19 16:00 96 02/14/19 15:49 98.3 83 20 132/69 (90) 93 02/14/19 13:01 124/55 02/14/19 12:00 95 02/14/19 11:53 97.8 93 20 124/55 (78) 95 02/14/19 10:44 81 18 97 Intake and Output 02/14/19 02/15/19 19:00 07:00 Intake Total 150 ml 207.5 ml Output Total 300 ml 500 ml Balance -150 ml -292.5 ml Intake Oral 150 ml 150 ml IV Total 57.5 ml Output Urine Total 300 ml 500 ml Laboratory Tests 02/15/19 05:30: White Blood Count 12.9H, Red Blood Count 3.45L, Hemoglobin 10.1L, Hematocrit 30.9L, Mean Corpuscular Volume 90, Mean Corpuscular Hemoglobin 29.3, Mean Corpuscular Hemoglobin Concent 32.7, Red Cell Distribution Width 15.6H, Platelet Count 372, Mean Platelet Volume 9.2, Neutrophils (%) (Auto) 77.3H, Lymphocytes (%) (Auto) 11.1L, Monocytes (%) (Auto) 7.8, Eosinophils (%) (Auto) 3.3H, Basophils (%) (Auto) 0.5, Sodium Level 143, Potassium Level 3.2L, Chloride Level 105, Carbon Dioxide Level 27, Anion Gap 11, Blood Urea Nitrogen 47H, Creatinine 3.9H, Estimat Glomerular Filtration Rate 13.9, Glucose Level 157H, Calcium Level 7.6L, Phosphorus Level 2.0L, Magnesium Level 2.0, Total Bilirubin 0.2, Aspartate Amino Transf (AST/SGOT) 14L, Alanine Aminotransferase ( ALT/SGPT) 19, Alkaline Phosphatase 96, Troponin I 0.517H, C-Reactive Protein, Quantitative 2.7H, Total Protein 5.9L, Albumin 1.7L, Globulin 4.2, Albumin/ Globulin Ratio 0.4L Height (Feet): 5 Height (Inches): 6.00 Weight (Pounds): 171 General Appearance: no apparent distress EENT: normal ENT inspection Neck: supple Cardiovascular: normal rate Respiratory/Chest: decreased breath sounds Abdomen: normal bowel sounds, non tender, soft Extremities: non-tender Fabrizio Herrera MD Feb 15, 2019 09:26
--- NOTE | 2019-02-15 12:54 | Pulmonology Progress Note ---
Assessment/Plan Problems: (1) C. difficile colitis (2) Hemorrhagic shock (3) Upper GI bleeding (4) Anemia (5) ESRF (end stage renal failure) (6) S/P AKA (above knee amputation) unilateral (7) Diabetes mellitus Assessment/Plan swallow study noted on Vancomycin po for Cdiff continue abx for MDR sputum check h/h, prbc prn HD by entry writer CXR is much better now titrate fio2 to sat of 92% check electrolytes. dvt prophylaxis isolation for C-diff med/surg pending discharge Subjective ROS Limited/Unobtainable: No Constitutional: Reports: no symptoms HEENT: Repors: no symptoms Allergies: Coded Allergies: No Known Allergies (Unverified , 09/15/16) Objective Last 24 Hour Vital Signs Date Time Temp Pulse Resp B/P (MAP) Pulse Ox O2 Delivery O2 Flow Rate FiO2 02/15/19 12:40 122/85 02/15/19 09:10 Nasal Cannula 2.0 02/15/19 08:25 97.8 68 19 135/96 (109) 100 02/15/19 08:00 95 02/15/19 07:26 Nasal Cannula 3.0 32 02/15/19 07:26 96 Nasal Cannula 3.0 32 02/15/19 06:37 109/54 02/15/19 05:02 80 21 97 Facial 30 02/15/19 04:00 98.1 87 22 109/54 (72) 98 02/15/19 03:37 86 02/15/19 03:25 86 22 96 Facial 30 02/15/19 02:56 90 130/78 02/15/19 02:34 90 130/78 (95) 02/15/19 00:40 84 24 98 Facial 30 02/15/19 00:09 123/61 02/15/19 00:00 98.8 97 20 124/59 (80) 97 02/14/19 23:37 95 02/14/19 21:55 97 Nasal Cannula 3.0 32 02/14/19 21:55 Nasal Cannula 3.0 32 02/14/19 21:00 Nasal Cannula 2.0 02/14/19 20:00 99.3 92 20 123/61 (81) 97 02/14/19 19:44 100 02/14/19 17:07 132/69 02/14/19 16:00 96 02/14/19 15:49 98.3 83 20 132/69 (90) 93 02/14/19 13:01 124/55 Intake and Output 02/14/19 02/15/19 18:59 06:59 Intake Total 150 ml 207.5 ml Output Total 300 ml 500 ml Balance -150 ml -292.5 ml Intake Oral 150 ml 150 ml IV Total 57.5 ml Output Urine Total 300 ml 500 ml General Appearance: WD/WN HEENT: normocephalic, atraumatic Respiratory/Chest: chest wall non-tender, lungs clear, normal breath sounds Breasts: no masses Cardiovascular: normal peripheral pulses Abdomen: normal bowel sounds, soft, non tender Laboratory Tests 02/15/19 05:30: White Blood Count 12.9H, Red Blood Count 3.45L, Hemoglobin 10.1L, Hematocrit 30.9L, Mean Corpuscular Volume 90, Mean Corpuscular Hemoglobin 29.3, Mean Corpuscular Hemoglobin Concent 32.7, Red Cell Distribution Width 15.6H, Platelet Count 372, Mean Platelet Volume 9.2, Neutrophils (%) (Auto) 77.3H, Lymphocytes (%) (Auto) 11.1L, Monocytes (%) (Auto) 7.8, Eosinophils (%) (Auto) 3.3H, Basophils (%) (Auto) 0.5, Sodium Level 143, Potassium Level 3.2L, Chloride Level 105, Carbon Dioxide Level 27, Anion Gap 11, Blood Urea Nitrogen 47H, Creatinine 3.9H, Estimat Glomerular Filtration Rate 13.9, Glucose Level 157H, Calcium Level 7.6L, Phosphorus Level 2.0L, Magnesium Level 2.0, Total Bilirubin 0.2, Aspartate Amino Transf (AST/SGOT) 14L, Alanine Aminotransferase ( ALT/SGPT) 19, Alkaline Phosphatase 96, Troponin I 0.517H, C-Reactive Protein, Quantitative 2.7H, Total Protein 5.9L, Albumin 1.7L, Globulin 4.2, Albumin/ Globulin Ratio 0.4L Current Medications Medications (Trade) Dose Ordered Sig/Althea Route PRN Reason Start Time Stop Time Status Last Admin Dose Admin Acetaminophen (Tylenol) 650 mg Q4H PRN ORAL T>100.5 02/14/19 04:03 03/08/19 04:02 Aspirin (ASA) 81 mg DAILY NG 02/14/19 09:00 03/12/19 08:59 02/15/19 08:50 Dextrose (Dextrose 50%) 25 ml Q30M PRN IV Hypoglycemia 02/14/19 04:00 03/08/19 10:29 Dextrose (Dextrose 50%) 50 ml Q30M PRN IV Hypoglycemia 02/14/19 04:00 03/08/19 10:29 Epoetin Romeo (Epoetin Romeo(ESRD on dialysis)) 10,000 unit SUN- SUBQ 02/14/19 21:00 03/14/19 20:59 02/14/19 21:52 Lactobacillus Acidophilus (Culturelle) 1 tab THREE TIMES A DAY ORAL 02/15/19 09:00 03/17/19 08:59 02/15/19 12:39 Metronidazole 100 ml @ 100 mls/hr Q8HR IVPB 02/15/19 14:00 02/22/19 13:59 02/15/19 12:39 Nitroglycerin (Nitro-Bid) 2 inch Q6HR TOPIC 02/14/19 06:00 03/10/19 17:59 02/15/19 12:40 Nitroglycerin (Ntg) 0.4 mg Q5M X 3 DOSES PRN SL Prn Chest Pain 02/14/19 04:00 03/08/19 10:29 Ondansetron HCl (Zofran) 4 mg Q6H PRN IVP Nausea & Vomiting 02/14/19 04:03 03/08/19 04:02 Pantoprazole (Protonix) 40 mg Q12HR ORAL 02/14/19 21:00 03/16/19 20:59 02/15/19 08:50 Polyethylene Glycol (Miralax) 17 gm HSPRN PRN ORAL Constipation 02/14/19 21:00 03/08/19 20:59 Temazepam (Restoril) 15 mg HSPRN PRN ORAL Insomnia 02/14/19 21:00 02/15/19 21:00 Vancomycin HCl (Firvanq) 125 mg FOUR TIMES A DAY NG 02/14/19 09:00 02/19/19 12:59 02/15/19 12:40 Lit Cerna MD Feb 15, 2019 12:54
--- NOTE | 2019-02-15 13:56 | Nephrology Progress Note ---
Assessment/Plan Problem List: (1) Upper GI bleeding (2) Hemorrhagic shock (3) ESRF (end stage renal failure) (4) NSTEMI (non-ST elevated myocardial infarction) (5) Respiratory failure, acute (6) Lung mass Assessment admitted with massive GI bleed and hypotension ESRD : M W Fr h/o UTI now , on vent, respitatory failure Other medical conditions; Type 2 diabetes. Hypertension. h/o Anemia of chronic renal disease Hypercholesterolemia. Peripheral vascular disease. Alzheimer's dementia. ?? LUNG Pathology PAST SURGICAL HISTORY: 1. Right [id number] amputation. 2. Open reduction internal fixation Plan Plan: started PO start EPO change protonix po DC IV fluid HD 02/13 next 02/15 monitor H&h monitor troponin I monitor lytes and renal parameters antibiotics for uti start NTG Paste Subjective ROS Limited/Unobtainable: No Constitutional: Reports: malaise Objective Objective Last 24 Hour Vital Signs Date Time Temp Pulse Resp B/P (MAP) Pulse Ox O2 Delivery O2 Flow Rate FiO2 02/15/19 12:40 122/85 02/15/19 09:10 Nasal Cannula 2.0 02/15/19 08:25 97.8 68 19 135/96 (109) 100 02/15/19 08:00 95 02/15/19 07:26 Nasal Cannula 3.0 32 02/15/19 07:26 96 Nasal Cannula 3.0 32 02/15/19 06:37 109/54 02/15/19 05:02 80 21 97 Facial 30 02/15/19 04:00 98.1 87 22 109/54 (72) 98 02/15/19 03:37 86 02/15/19 03:25 86 22 96 Facial 30 02/15/19 02:56 90 130/78 02/15/19 02:34 90 130/78 (95) 02/15/19 00:40 84 24 98 Facial 30 02/15/19 00:09 123/61 02/15/19 00:00 98.8 97 20 124/59 (80) 97 02/14/19 23:37 95 02/14/19 21:55 97 Nasal Cannula 3.0 32 02/14/19 21:55 Nasal Cannula 3.0 32 02/14/19 21:00 Nasal Cannula 2.0 02/14/19 20:00 99.3 92 20 123/61 (81) 97 02/14/19 19:44 100 02/14/19 17:07 132/69 02/14/19 16:00 96 02/14/19 15:49 98.3 83 20 132/69 (90) 93 Intake and Output 02/14/19 02/15/19 19:00 07:00 Intake Total 150 ml 207.5 ml Output Total 300 ml 500 ml Balance -150 ml -292.5 ml Intake Oral 150 ml 150 ml IV Total 57.5 ml Output Urine Total 300 ml 500 ml Laboratory Tests 02/15/19 05:30: White Blood Count 12.9H, Red Blood Count 3.45L, Hemoglobin 10.1L, Hematocrit 30.9L, Mean Corpuscular Volume 90, Mean Corpuscular Hemoglobin 29.3, Mean Corpuscular Hemoglobin Concent 32.7, Red Cell Distribution Width 15.6H, Platelet Count 372, Mean Platelet Volume 9.2, Neutrophils (%) (Auto) 77.3H, Lymphocytes (%) (Auto) 11.1L, Monocytes (%) (Auto) 7.8, Eosinophils (%) (Auto) 3.3H, Basophils (%) (Auto) 0.5, Sodium Level 143, Potassium Level 3.2L, Chloride Level 105, Carbon Dioxide Level 27, Anion Gap 11, Blood Urea Nitrogen 47H, Creatinine 3.9H, Estimat Glomerular Filtration Rate 13.9, Glucose Level 157H, Calcium Level 7.6L, Phosphorus Level 2.0L, Magnesium Level 2.0, Total Bilirubin 0.2, Aspartate Amino Transf (AST/SGOT) 14L, Alanine Aminotransferase ( ALT/SGPT) 19, Alkaline Phosphatase 96, Troponin I 0.517H, C-Reactive Protein, Quantitative 2.7H, Total Protein 5.9L, Albumin 1.7L, Globulin 4.2, Albumin/ Globulin Ratio 0.4L Height (Feet): 5 Height (Inches): 6.00 Weight (Pounds): 171 General Appearance: no apparent distress Cardiovascular: normal rate Respiratory/Chest: decreased breath sounds Abdomen: soft Objective no change Marques Motta MD Feb 15, 2019 13:56
--- NOTE | 2019-02-15 17:38 | NUR ---
NURSE NOTES: vital sign stable during morning shift. no c/o pain. patient dialyzed,2 L out as ordered. patient tolerated well. all needs met.HOB kept elevated for safety reason iv intact and patent. call light with in reach, bed @ lowest position, rails up x 3 for safety reason. folly cath draining light yellow color urine by gravity.will continue to monitor.
--- NOTE | 2019-02-15 18:30 | NUR ---
NURSE NOTES: Received pt from MAYO MAN from TELE. Pt is confused and orient x3. pt has NC 2LMP. pt has rectal tube in place is working well. pt has Yanez cath in place is running well. pt has intact iv access RFA 20g SL. Pt has STEFANIE AV shunt was bleeding , pressure dressing done. all needs attended, bed is locked and is in the lowest position. call light within easy reach. will continue to monitor.
[2019-02-15] MEDS ORDERED: Tubing IV Secondary IV ONE (18:53)
--- NOTE | 2019-02-15 18:59 | NUR ---
NURSE NOTES: Patient transferred to med Surg room 418 bed 1 as ordered. all orders transferred per protocol. report given to Kaylin HUBER.
[2019-02-15] MEDS ORDERED: Nitroglycerin Subl 0.4mg tab SL PRN (19:00)
--- NOTE | 2019-02-15 19:40 | Cardiology Progress Note ---
Assessment/Plan Assessment/Plan Her CXR done 2 days ago looks like CHF, but she clinically looks stable consider repeating CXR Subjective Subjective The patient is in with elevated HOB, she reports "not feeling well" but denies dyspnea or chest pain Objective Last 24 Hour Vital Signs Date Time Temp Pulse Resp B/P (MAP) Pulse Ox O2 Delivery O2 Flow Rate FiO2 02/15/19 16:58 98/57 02/15/19 16:00 97.8 73 21 98/57 (71) 97 02/15/19 12:40 122/85 02/15/19 12:00 105 02/15/19 12:00 97.6 100 19 124/63 (83) 100 02/15/19 09:10 Nasal Cannula 2.0 02/15/19 08:25 97.8 68 19 135/96 (109) 100 02/15/19 08:00 95 02/15/19 07:26 Nasal Cannula 3.0 32 02/15/19 07:26 96 Nasal Cannula 3.0 32 02/15/19 06:37 109/54 02/15/19 05:02 80 21 97 Facial 30 02/15/19 04:00 98.1 87 22 109/54 (72) 98 02/15/19 03:37 86 02/15/19 03:25 86 22 96 Facial 30 02/15/19 02:56 90 130/78 02/15/19 02:34 90 130/78 (95) 02/15/19 00:40 84 24 98 Facial 30 02/15/19 00:09 123/61 02/15/19 00:00 98.8 97 20 124/59 (80) 97 02/14/19 23:37 95 02/14/19 21:55 97 Nasal Cannula 3.0 32 02/14/19 21:55 Nasal Cannula 3.0 32 02/14/19 21:00 Nasal Cannula 2.0 02/14/19 20:00 99.3 92 20 123/61 (81) 97 02/14/19 19:44 100 General Appearance: mild distress, other EENT: PERRL/EOMI Neck: JVD Rhythm: NSR Cardiovascular: normal rate Respiratory/Chest: crackles/rales Abdomen: soft Extremities: no calf tenderness, no swelling Intake and Output 02/14/19 02/15/19 18:59 06:59 Intake Total 150 ml 207.5 ml Output Total 300 ml 500 ml Balance -150 ml -292.5 ml Intake Oral 150 ml 150 ml IV Total 57.5 ml Output Urine Total 300 ml 500 ml Laboratory Tests Test 02/15/19 05:30 White Blood Count 12.9 K/UL (4.8-10.8) H Red Blood Count 3.45 M/UL (4.20-5.40) L Hemoglobin 10.1 G/DL (12.0-16.0) L Hematocrit 30.9 % (37.0-47.0) L Mean Corpuscular Volume 90 FL (80-99) Mean Corpuscular Hemoglobin 29.3 PG (27.0-31.0) Mean Corpuscular Hemoglobin Concent 32.7 G/DL (32.0-36.0) Red Cell Distribution Width 15.6 % (11.6-14.8) H Platelet Count 372 K/UL (150-450) Mean Platelet Volume 9.2 FL (6.5-10.1) Neutrophils (%) (Auto) 77.3 % (45.0-75.0) H Lymphocytes (%) (Auto) 11.1 % (20.0-45.0) L Monocytes (%) (Auto) 7.8 % (1.0-10.0) Eosinophils (%) (Auto) 3.3 % (0.0-3.0) H Basophils (%) (Auto) 0.5 % (0.0-2.0) Sodium Level 143 MMOL/L (136-145) Potassium Level 3.2 MMOL/L (3.5-5.1) L Chloride Level 105 MMOL/L (98-107) Carbon Dioxide Level 27 MMOL/L (21-32) Anion Gap 11 mmol/L (5-15) Blood Urea Nitrogen 47 mg/dL (7-18) H Creatinine 3.9 MG/DL (0.55-1.30) H Estimat Glomerular Filtration Rate 13.9 mL/min (>60) Glucose Level 157 MG/DL (74-106) H Calcium Level 7.6 MG/DL (8.5-10.1) L Phosphorus Level 2.0 MG/DL (2.5-4.9) L Magnesium Level 2.0 MG/DL (1.8-2.4) Total Bilirubin 0.2 MG/DL (0.2-1.0) Aspartate Amino Transf (AST/SGOT) 14 U/L (15-37) L Alanine Aminotransferase (ALT/SGPT) 19 U/L (12-78) Alkaline Phosphatase 96 U/L (46-116) Troponin I 0.517 ng/mL (0.000-0.056) C-Reactive Protein, Quantitative 2.7 mg/dL (0.00-0.90) H Total Protein 5.9 G/DL (6.4-8.2) L Albumin 1.7 G/DL (3.4-5.0) L Globulin 4.2 g/dL Albumin/Globulin Ratio 0.4 (1.0-2.7) L Chery Ryan MD Feb 15, 2019 19:40
--- NOTE | 2019-02-15 19:53 | NUR ---
HAND-OFF: Report given to RN PAO.Reported to watch AV shunt for bleeding.
--- NOTE | 2019-02-15 20:33 | NUR ---
NURSE NOTES: Received patient from MAYO Ewing. Patient is confused. On nasal cannula 2L/min. No signs of distress or labored breathing. IV intact patent, and saline locked. Both raphael and rectal tube are intact, patent, and draining. Bed in lowest position with call light in reach. Will continue with plan of care.
[2019-02-15] MEDS ORDERED: Miralax 17gm pkt ORAL PRN (21:00)
[2019-02-16] VITALS: BP 150/74
[2019-02-16] MEDS: Nitroglycerin 2% oint pkt TOPIC SCH ×4 (01:31→17:21)
[2019-02-16 04:00] VITALS: BP 116/64
[2019-02-16 05:57] LABS: BASOPHILS % (AUTO) 0.5 % (0.0-2.0); EOSINOPHILS % (AUTO) 1.5 % (0.0-3.0); HEMATOCRIT 30.6 % (37.0-47.0); HEMOGLOBIN 9.8 G/DL (12.0-16.0); LYMPHOCYTES % (AUTO) 9.6 % (20.0-45.0); MEAN CORPUSCULAR VOLUME 90 FL (80-99); MONOCYTES % (AUTO) 7.3 % (1.0-10.0); NEUTROPHILS % (AUTO) 81.1 % (45.0-75.0); PLATELET COUNT 380 K/UL (150-450); RED CELL DISTRIBUTION WIDTH 16.2 % (11.6-14.8); WHITE BLOOD COUNT 13.6 K/UL (4.8-10.8)
[2019-02-16 06:26] LABS: ALANINE AMINOTRANSFERASE 23 U/L (12-78); ALBUMIN 1.9 G/DL (3.4-5.0); ALBUMIN/GLOBULIN RATIO 0.5 (1.0-2.7); ALKALINE PHOSPHATASE 92 U/L (46-116); ANION GAP 11 mmol/L (5-15); ASPARTATE AMINO TRANSFERASE 17 U/L (15-37); BILIRUBIN,TOTAL 0.2 MG/DL (0.2-1.0); BLOOD UREA NITROGEN 32 mg/dL (7-18); CALCIUM 7.5 MG/DL (8.5-10.1); CARBON DIOXIDE 29 MMOL/L (21-32); CHLORIDE 105 MMOL/L (98-107); CREATININE 3.5 MG/DL (0.55-1.30); PHOSPHORUS 2.7 MG/DL (2.5-4.9); POTASSIUM 3.4 MMOL/L (3.5-5.1); SODIUM 145 MMOL/L (136-145)
--- NOTE | 2019-02-16 07:00 | NUR ---
NURSE NOTES: Lab called with critical value for troponin 0.196. Gwen from lab spoke with charge nurse. Notified Dr. Franco. ordered D/C of troponin labs. No further orders.
--- NOTE | 2019-02-16 07:15 | NUR ---
HAND-OFF: Report given to MAYO Ewing.
--- NOTE | 2019-02-16 07:21 | NUR ---
NURSE NOTES: Received pt from RN PAO. Pt is confused and orient x2. pt has NC 2LMP. pt has rectal tube in place is working well. pt has Yanez cath in place is running well. pt has intact iv access RFA 20g SL. Pt has STEFANEI AV shunt dressing is intact. K 3.4, Dr mendez is aware. all needs attended, bed is locked and is in the lowest position. call light within easy reach. will continue to monitor.
--- NOTE | 2019-02-16 07:50 | NUR ---
RESPIRATORY NOTE:Received pt on bipap. pt has no signs of redness or skin breakdown. Took pt off bipap and placed her on 3L n/c. Pt is awake and responsive. No s/s of distress noted.
[2019-02-16 08:00] VITALS: BP 117/60
--- NOTE | 2019-02-16 08:19 | General Progress Note ---
Assessment/Plan Problem List: (1) Upper GI bleeding ICD Codes: K92.2 - Gastrointestinal hemorrhage, unspecified SNOMED: 91766045 (2) Anemia ICD Codes: D64.9 - Anemia, unspecified SNOMED: 191675448 (3) Diabetes mellitus ICD Codes: E11.9 - Type 2 diabetes mellitus without complications SNOMED: 24632495 Assessment/Plan s/p EGD SUMMARY OF FINDINGS: Most probably bleeding from the polypectomy site status post epinephrine injection, hemoclip placement, and epinephrine washed. stable H&H cdiff positive on renal diet ASA dc ppi, add H2B (due to C.diff) abx per ID monitor H&H, prn transfusion follow labs HD per nephrology Subjective ROS Limited/Unobtainable: Yes Allergies: Coded Allergies: No Known Allergies (Unverified , 09/15/16) Objective Last 24 Hour Vital Signs Date Time Temp Pulse Resp B/P (MAP) Pulse Ox O2 Delivery O2 Flow Rate FiO2 02/16/19 07:50 Nasal Cannula 3.0 32 02/16/19 07:50 99 18 98 02/16/19 07:50 98 Nasal Cannula 3.0 32 02/16/19 07:03 137/70 02/16/19 05:22 71 22 99 Facial 30 02/16/19 04:00 98.4 102 18 116/64 (81) 96 02/16/19 03:18 70 21 98 Facial 30 02/16/19 01:31 150/74 02/16/19 01:16 78 21 97 Facial 30 02/16/19 00:00 98.3 79 18 150/74 (99) 94 02/15/19 22:59 79 21 98 Facial 30 02/15/19 21:00 Nasal Cannula 2.0 02/15/19 20:36 96 Nasal Cannula 3.0 32 02/15/19 20:36 Nasal Cannula 3.0 32 02/15/19 20:00 98.8 84 18 127/61 (83) 94 02/15/19 16:58 98/57 02/15/19 16:00 97.8 73 21 98/57 (71) 97 02/15/19 12:40 122/85 02/15/19 12:00 105 02/15/19 12:00 97.6 100 19 124/63 (83) 100 3/30/19 09:10 Nasal Cannula 2.0 02/15/19 08:25 97.8 68 19 135/96 (109) 100 Intake and Output 02/15/19 02/16/19 19:00 07:00 Intake Total 490 ml 100 ml Output Total 200 ml Balance 490 ml -100 ml Intake Oral 490 ml IV Total 100 ml Output Urine Total 200 ml Laboratory Tests 02/16/19 05:37: White Blood Count 13.6H, Red Blood Count 3.40L, Hemoglobin 9.8L, Hematocrit 30.6L, Mean Corpuscular Volume 90, Mean Corpuscular Hemoglobin 28.8, Mean Corpuscular Hemoglobin Concent 32.0, Red Cell Distribution Width 16.2H, Platelet Count 380, Mean Platelet Volume 7.9, Neutrophils (%) (Auto) 81.1H, Lymphocytes (%) (Auto) 9.6L, Monocytes (%) (Auto) 7.3, Eosinophils (%) (Auto) 1.5, Basophils (%) (Auto) 0.5, Sodium Level 145, Potassium Level 3.4L, Chloride Level 105, Carbon Dioxide Level 29, Anion Gap 11, Blood Urea Nitrogen 32H, Creatinine 3.5H, Estimat Glomerular Filtration Rate 15.9, Glucose Level 168H, Calcium Level 7.5L, Phosphorus Level 2.7, Magnesium Level 1.8, Total Bilirubin 0.2, Aspartate Amino Transf (AST/SGOT) 17, Alanine Aminotransferase (ALT/SGPT) 23, Alkaline Phosphatase 92, Troponin I 0.196H, C-Reactive Protein, Quantitative 2.5H, Pro-B-Type Natriuretic Peptide > 41632J, Total Protein 5.9L, Albumin 1.9L, Globulin 4.0, Albumin/Globulin Ratio 0.5L Height (Feet): 5 Height (Inches): 6.00 Weight (Pounds): 169 General Appearance: no apparent distress EENT: normal ENT inspection Neck: supple Cardiovascular: normal peripheral pulses Respiratory/Chest: decreased breath sounds Abdomen: normal bowel sounds, non tender, soft Extremities: non-tender Fabrizio Herrera MD Feb 16, 2019 08:19
[2019-02-16] MEDS: Aspirin Baby 81mg NG SCH (08:30)
[2019-02-16] MEDS: Lactobacillus-GG tablet ORAL SCH ×3 (08:30→17:20)
[2019-02-16] MEDS: Vancomycin oral 125mg/2.5ml NG SCH ×4 (09:16→21:10)
[2019-02-16 12:00] VITALS: BP 111/57
[2019-02-16] MEDS ORDERED: NS 275ml ONE ×3 (12:38→12:45)
[2019-02-16] MEDS ORDERED: Tubing IV Secondary IV ONE ×3 (12:38→12:45)
--- NOTE | 2019-02-16 13:07 | Pulmonology Progress Note ---
Assessment/Plan Problems: (1) C. 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 dvt prophylaxis isolation for C-diff med/surg pending discharge Subjective ROS Limited/Unobtainable: No Constitutional: Reports: no symptoms HEENT: Repors: no symptoms Respiratory: Reports: no symptoms Allergies: Coded Allergies: No Known Allergies (Unverified , 09/15/16) Objective Last 24 Hour Vital Signs Date Time Temp Pulse Resp B/P (MAP) Pulse Ox O2 Delivery O2 Flow Rate FiO2 02/16/19 12:25 111/57 02/16/19 12:00 98.4 77 16 111/57 (75) 94 02/16/19 09:00 Nasal Cannula 2.0 02/16/19 08:00 97.6 95 20 117/60 (79) 96 02/16/19 07:50 Nasal Cannula 3.0 32 02/16/19 07:50 99 18 98 02/16/19 07:50 98 Nasal Cannula 3.0 32 02/16/19 07:03 137/70 02/16/19 05:22 71 22 99 Facial 30 02/16/19 04:00 98.4 102 18 116/64 (81) 96 02/16/19 03:18 70 21 98 Facial 30 02/16/19 01:31 150/74 02/16/19 01:16 78 21 97 Facial 30 02/16/19 00:00 98.3 79 18 150/74 (99) 94 02/15/19 22:59 79 21 98 Facial 30 02/15/19 21:00 Nasal Cannula 2.0 02/15/19 20:36 96 Nasal Cannula 3.0 32 02/15/19 20:36 Nasal Cannula 3.0 32 02/15/19 20:00 98.8 84 18 127/61 (83) 94 02/15/19 16:58 98/57 02/15/19 16:00 97.8 73 21 98/57 (71) 97 Intake and Output 3/30/19 3/31/19 19:00 07:00 Intake Total 490 ml 100 ml Output Total 200 ml Balance 490 ml -100 ml Intake Oral 490 ml IV Total 100 ml Output Urine Total 200 ml General Appearance: WD/WN HEENT: normocephalic, atraumatic Respiratory/Chest: chest wall non-tender, lungs clear Breasts: no masses Cardiovascular: normal peripheral pulses Abdomen: normal bowel sounds, no organomegaly Genitourinary: normal external genitalia Extremities: no clubbing Skin: no rash Laboratory Tests 02/16/19 05:37: White Blood Count 13.6H, Red Blood Count 3.40L, Hemoglobin 9.8L, Hematocrit 30.6L, Mean Corpuscular Volume 90, Mean Corpuscular Hemoglobin 28.8, Mean Corpuscular Hemoglobin Concent 32.0, Red Cell Distribution Width 16.2H, Platelet Count 380, Mean Platelet Volume 7.9, Neutrophils (%) (Auto) 81.1H, Lymphocytes (%) (Auto) 9.6L, Monocytes (%) (Auto) 7.3, Eosinophils (%) (Auto) 1.5, Basophils (%) (Auto) 0.5, Sodium Level 145, Potassium Level 3.4L, Chloride Level 105, Carbon Dioxide Level 29, Anion Gap 11, Blood Urea Nitrogen 32H, Creatinine 3.5H, Estimat Glomerular Filtration Rate 15.9, Glucose Level 168H, Calcium Level 7.5L, Phosphorus Level 2.7, Magnesium Level 1.8, Total Bilirubin 0.2, Aspartate Amino Transf (AST/SGOT) 17, Alanine Aminotransferase (ALT/SGPT) 23, Alkaline Phosphatase 92, Troponin I 0.196H, C-Reactive Protein, Quantitative 2.5H, Pro-B-Type Natriuretic Peptide > [id number], Total Protein 5.9L, Albumin 1.9L, Globulin 4.0, Albumin/Globulin Ratio 0.5L Current Medications Medications (Trade) Dose Ordered Sig/Althea Route PRN Reason Start Time Stop Time Status Last Admin Dose Admin Acetaminophen (Tylenol) 650 mg Q4H PRN ORAL T>100.5 02/15/19 20:15 03/08/19 04:02 Aspirin (ASA) 81 mg DAILY NG 02/16/19 09:00 03/12/19 08:59 02/16/19 08:30 Dextrose (Dextrose 50%) 25 ml Q30M PRN IV Hypoglycemia 02/15/19 19:00 03/08/19 10:29 Dextrose (Dextrose 50%) 50 ml Q30M PRN IV Hypoglycemia 02/15/19 19:00 03/08/19 10:29 Epoetin Romeo (Epoetin Romeo(ESRD on dialysis)) 10,000 unit SUN-SUN-SUN SUBQ 02/17/19 21:00 03/14/19 20:59 Lactobacillus Acidophilus (Culturelle) 1 tab THREE TIMES A DAY ORAL 02/16/19 09:00 03/17/19 08:59 02/16/19 12:25 Metronidazole 100 ml @ 100 mls/hr Q8HR IVPB 02/15/19 22:00 02/22/19 13:59 02/16/19 06:55 Nitroglycerin (Nitro-Bid) 2 inch Q6HR TOPIC 02/16/19 00:00 03/10/19 17:59 02/16/19 12:25 Nitroglycerin (Ntg) 0.4 mg Q5M X 3 DOSES PRN SL Prn Chest Pain 02/15/19 19:00 03/08/19 10:29 Ondansetron HCl (Zofran) 4 mg Q6H PRN IVP Nausea & Vomiting 02/15/19 22:15 03/08/19 04:02 Pantoprazole (Protonix) 40 mg Q12HR ORAL 02/15/19 21:00 03/16/19 20:59 02/16/19 08:29 Polyethylene Glycol (Miralax) 17 gm HSPRN PRN ORAL Constipation 02/15/19 21:00 03/08/19 20:59 Temazepam (Restoril) 15 mg HSPRN PRN ORAL Insomnia 02/15/19 21:00 02/22/19 20:59 Vancomycin HCl (Firvanq) 125 mg FOUR TIMES A DAY NG 02/15/19 21:00 02/19/19 12:59 02/16/19 12:25 Lit Cerna MD Feb 16, 2019 13:07
--- NOTE | 2019-02-16 13:36 | Nephrology Progress Note ---
Assessment/Plan Problem List: (1) Upper GI bleeding (2) Hemorrhagic shock (3) ESRF (end stage renal failure) (4) NSTEMI (non-ST elevated myocardial infarction) (5) Respiratory failure, acute (6) Lung mass Assessment admitted with massive GI bleed and hypotension ESRD : M W Fr h/o UTI now , on vent, respitatory failure Other medical conditions; Type 2 diabetes. Hypertension. h/o Anemia of chronic renal disease Hypercholesterolemia. Peripheral vascular disease. Alzheimer's dementia. ?? LUNG Pathology PAST SURGICAL HISTORY: 1. Right [id number] amputation. 2. Open reduction internal fixation Plan Plan: started PO start EPO change protonix po DC IV fluid HD next 02/18 monitor H&h monitor troponin I monitor lytes and renal parameters antibiotics for uti start NTG Paste Subjective ROS Limited/Unobtainable: No Objective Objective Last 24 Hour Vital Signs Date Time Temp Pulse Resp B/P (MAP) Pulse Ox O2 Delivery O2 Flow Rate FiO2 02/16/19 12:25 111/57 02/16/19 12:00 98.4 77 16 111/57 (75) 94 02/16/19 09:00 Nasal Cannula 2.0 02/16/19 08:00 97.6 95 20 117/60 (79) 96 02/16/19 07:50 Nasal Cannula 3.0 32 02/16/19 07:50 99 18 98 02/16/19 07:50 98 Nasal Cannula 3.0 32 02/16/19 07:03 137/70 02/16/19 05:22 71 22 99 Facial 30 02/16/19 04:00 98.4 102 18 116/64 (81) 96 02/16/19 03:18 70 21 98 Facial 30 02/16/19 01:31 150/74 02/16/19 01:16 78 21 97 Facial 30 02/16/19 00:00 98.3 79 18 150/74 (99) 94 02/15/19 22:59 79 21 98 Facial 30 02/15/19 21:00 Nasal Cannula 2.0 02/15/19 20:36 96 Nasal Cannula 3.0 32 02/15/19 20:36 Nasal Cannula 3.0 32 02/15/19 20:00 98.8 84 18 127/61 (83) 94 02/15/19 16:58 98/57 02/15/19 16:00 97.8 73 21 98/57 ( 97 Intake and Output 02/15/19 02/16/19 19:00 07:00 Intake Total 490 ml 100 ml Output Total 200 ml Balance 490 ml -100 ml Intake Oral 490 ml IV Total 100 ml Output Urine Total 200 ml Laboratory Tests 02/16/19 05:37: White Blood Count 13.6H, Red Blood Count 3.40L, Hemoglobin 9.8L, Hematocrit 30.6L, Mean Corpuscular Volume 90, Mean Corpuscular Hemoglobin 28.8, Mean Corpuscular Hemoglobin Concent 32.0, Red Cell Distribution Width 16.2H, Platelet Count 380, Mean Platelet Volume 7.9, Neutrophils (%) (Auto) 81.1H, Lymphocytes (%) (Auto) 9.6L, Monocytes (%) (Auto) 7.3, Eosinophils (%) (Auto) 1.5, Basophils (%) (Auto) 0.5, Sodium Level 145, Potassium Level 3.4L, Chloride Level 105, Carbon Dioxide Level 29, Anion Gap 11, Blood Urea Nitrogen 32H, Creatinine 3.5H, Estimat Glomerular Filtration Rate 15.9, Glucose Level 168H, Calcium Level 7.5L, Phosphorus Level 2.7, Magnesium Level 1.8, Total Bilirubin 0.2, Aspartate Amino Transf (AST/SGOT) 17, Alanine Aminotransferase (ALT/SGPT) 23, Alkaline Phosphatase 92, Troponin I 0.196H, C-Reactive Protein, Quantitative 2.5H, Pro-B-Type Natriuretic Peptide > 08577G, Total Protein 5.9L, Albumin 1.9L, Globulin 4.0, Albumin/Globulin Ratio 0.5L Height (Feet): 5 Height (Inches): 6.00 Weight (Pounds): 169 General Appearance: no apparent distress Cardiovascular: normal rate Respiratory/Chest: lungs clear Abdomen: soft Objective no change Marques Motta MD Feb 16, 2019 13:36
[2019-02-16 15:54] VITALS: BP 122/56
--- NOTE | 2019-02-16 19:02 | NUR ---
HAND-OFF: Report given to MAYO CEDENO.
--- NOTE | 2019-02-16 19:59 | NUR ---
NURSE NOTES: Received report from MAYO Ewing. Patient confused, alert x 1-2. On nasal cannula 3L/min. No signs of distress or labored breathing. Yanez and rectal tube both intact, patent, and draining. IV intact, patent, and saline locked. Bed in lowest position with call light in reach. Will continue with plan of care.
[2019-02-16 20:00] VITALS: BP 120/62
--- NOTE | 2019-02-16 21:15 | Cardiology Progress Note ---
Assessment/Plan Assessment/Plan she looks stable, respiratoyr status did not change Subjective Subjective The patient is in with elevated HOB, she speaks incoherently, but responds to signs, she does not feel good, but there is no worsening of respiratory distress Objective Last 24 Hour Vital Signs Date Time Temp Pulse Resp B/P (MAP) Pulse Ox O2 Delivery O2 Flow Rate FiO2 02/16/19 19:56 Nasal Cannula 3.0 32 02/16/19 19:56 97 Nasal Cannula 3.0 32 02/16/19 19:56 97 18 98 02/16/19 17:21 122/56 02/16/19 15:54 98.5 76 18 122/56 (78) 98 02/16/19 12:25 111/57 02/16/19 12:00 98.4 77 16 111/57 (75) 94 02/16/19 09:00 Nasal Cannula 2.0 02/16/19 08:00 97.6 95 20 117/60 (79) 96 02/16/19 07:50 Nasal Cannula 3.0 32 02/16/19 07:50 99 18 98 02/16/19 07:50 98 Nasal Cannula 3.0 32 02/16/19 07:03 137/70 02/16/19 05:22 71 22 99 Facial 30 02/16/19 04:00 98.4 102 18 116/64 (81) 96 02/16/19 03:18 70 21 98 Facial 30 02/16/19 01:31 150/74 02/16/19 01:16 78 21 97 Facial 30 02/16/19 00:00 98.3 79 18 150/74 (99) 94 02/15/19 22:59 79 21 98 Facial 30 General Appearance: mild distress EENT: PERRL/EOMI Neck: JVD Rhythm: NSR Cardiovascular: tachycardia Respiratory/Chest: crackles/rales Abdomen: soft Extremities: other - right leg AKA Neurologic: behavioral technician II-XII grossly normal Intake and Output 02/15/19 02/16/19 18:59 06:59 Intake Total 490 ml 100 ml Output Total 200 ml Balance 490 ml -100 ml Intake Oral 490 ml IV Total 100 ml Output Urine Total 200 ml Laboratory Tests Test 02/16/19 05:37 White Blood Count 13.6 K/UL (4.8-10.8) H Red Blood Count 3.40 M/UL (4.20-5.40) L Hemoglobin 9.8 G/DL (12.0-16.0) L Hematocrit 30.6 % (37.0-47.0) L Mean Corpuscular Volume 90 FL (80-99) Mean Corpuscular Hemoglobin 28.8 PG (27.0-31.0) Mean Corpuscular Hemoglobin Concent 32.0 G/DL (32.0-36.0) Red Cell Distribution Width 16.2 % (11.6-14.8) H Platelet Count 380 K/UL (150-450) Mean Platelet Volume 7.9 FL (6.5-10.1) Neutrophils (%) (Auto) 81.1 % (45.0-75.0) H Lymphocytes (%) (Auto) 9.6 % (20.0-45.0) L Monocytes (%) (Auto) 7.3 % (1.0-10.0) Eosinophils (%) (Auto) 1.5 % (0.0-3.0) Basophils (%) (Auto) 0.5 % (0.0-2.0) Sodium Level 145 MMOL/L (136-145) Potassium Level 3.4 MMOL/L (3.5-5.1) L Chloride Level 105 MMOL/L (98-107) Carbon Dioxide Level 29 MMOL/L (21-32) Anion Gap 11 mmol/L (5-15) Blood Urea Nitrogen 32 mg/dL (7-18) H Creatinine 3.5 MG/DL (0.55-1.30) H Estimat Glomerular Filtration Rate 15.9 mL/min (>60) Glucose Level 168 MG/DL (74-106) H Calcium Level 7.5 MG/DL (8.5-10.1) L Phosphorus Level 2.7 MG/DL (2.5-4.9) Magnesium Level 1.8 MG/DL (1.8-2.4) Total Bilirubin 0.2 MG/DL (0.2-1.0) Aspartate Amino Transf (AST/SGOT) 17 U/L (15-37) Alanine Aminotransferase (ALT/SGPT) 23 U/L (12-78) Alkaline Phosphatase 92 U/L (46-116) Troponin I 0.196 ng/mL (0.000-0.056) C-Reactive Protein, Quantitative 2.5 mg/dL (0.00-0.90) H Pro-B-Type Natriuretic Peptide > 96420 pg/mL (0-125) H Total Protein 5.9 G/DL (6.4-8.2) L Albumin 1.9 G/DL (3.4-5.0) L Globulin 4.0 g/dL Albumin/Globulin Ratio 0.5 (1.0-2.7) L Chery Ryan MD Feb 16, 2019 21:15
--- NOTE | 2019-02-16 23:40 | NUR ---
RESPIRATORY NOTE: PT SWITCH TO BIPAP 12/5 FIO2 30%. PT DAVIAN CURRENT BIPAP SETTINGS WELL. BIPAP HAS NO RED OUTLET IN THE ROOM. NURSE PAO AND CHARGE NURSE AWARE. ALARMS ARE ON AND AUDIBLE. SKIN IN TRACT, NO REDNESS. NO RESP DISTRESS NOTED. WILL CONTINUE MONITORING PT CLOSELY.
[2019-02-17] VITALS: BP 123/59
[2019-02-17] MEDS: Nitroglycerin 2% oint pkt TOPIC SCH ×4 (00:47→18:17)
[2019-02-17 04:00] VITALS: BP 120/68
--- NOTE | 2019-02-17 07:52 | NUR ---
HAND-OFF: Report given to MAYO Schultz.
[2019-02-17 08:00] VITALS: BP 103/61
--- NOTE | 2019-02-17 08:00 | NUR ---
RESPIRATORY NOTE: Received patient on BIPAP 12/5, FiO2 30% and took her off and placed her on NC 3l/min 32%. No signs of redness or skin breakdown, no signs of respiratory distress. Talked to charge nurse aditya HUBER, that the patients room does not have a red outlet, currently no rooms on [address] with a red outlet available.
--- NOTE | 2019-02-17 08:20 | NUR ---
NURSE NOTES: contacted at this time [facility] regarding HD ordered for tomorrow 02/18/19,spoken to [place]. Awaiting confirmation.
--- NOTE | 2019-02-17 09:36 | Nephrology Progress Note ---
Assessment/Plan Problem List: (1) Upper GI bleeding (2) Hemorrhagic shock (3) ESRF (end stage renal failure) (4) NSTEMI (non-ST elevated myocardial infarction) (5) Respiratory failure, acute (6) Lung mass Assessment admitted with massive GI bleed and hypotension ESRD : M W Fr h/o UTI now , on vent, respitatory failure Other medical conditions; Type 2 diabetes. Hypertension. h/o Anemia of chronic renal disease Hypercholesterolemia. Peripheral vascular disease. Alzheimer's dementia. ?? LUNG Pathology PAST SURGICAL HISTORY: 1. Right [id number] amputation. 2. Open reduction internal fixation Plan Plan: started PO start EPO change protonix to po DC IV fluid HD next 02/18 monitor H&H monitor troponin I monitor lytes and renal parameters antibiotics for uti start NTG Paste lactobacillus and po Vanco for C dif Objective Objective Last 24 Hour Vital Signs Date Time Temp Pulse Resp B/P (MAP) Pulse Ox O2 Delivery O2 Flow Rate FiO2 02/17/19 08:09 97 Nasal Cannula 3.0 32 02/17/19 08:09 Nasal Cannula 3.0 32 02/17/19 06:24 109/70 02/17/19 04:58 88 16 98 Facial 30 02/17/19 04:00 98.4 87 18 120/68 (85) 99 02/17/19 02:30 89 17 98 Facial 30 02/17/19 01:10 91 16 98 Facial 30 02/17/19 00:47 123/59 02/17/19 00:00 98.1 98 17 123/59 (80) 96 02/16/19 23:40 91 16 96 Facial 30 02/16/19 21:00 Nasal Cannula 3.0 02/16/19 20:00 98.2 95 18 120/62 (81) 96 02/16/19 19:56 Nasal Cannula 3.0 32 02/16/19 19:56 97 Nasal Cannula 3.0 32 02/16/19 19:56 97 18 98 02/16/19 17:21 122/56 02/16/19 15:54 98.5 76 18 122/56 (78) 98 02/16/19 12:25 111/57 02/16/19 12:00 98.4 77 16 111/57 (75) 94 Intake and Output 02/16/19 02/17/19 19:00 07:00 Intake Total 100 ml Output Total 600 ml 200 ml Balance -500 ml -200 ml IV Total 100 ml Output Urine Total 600 ml 200 ml # Voids 1 Height (Feet): 5 Height (Inches): 6.00 Weight (Pounds): 169 General Appearance: no apparent distress Cardiovascular: normal rate Respiratory/Chest: decreased breath sounds Abdomen: soft Objective no change Marques Motta MD Feb 17, 2019 09:36
[2019-02-17 09:44] LABS: BASOPHILS % (AUTO) 0.5 % (0.0-2.0); EOSINOPHILS % (AUTO) 5.5 % (0.0-3.0); HEMATOCRIT 29.2 % (37.0-47.0); HEMOGLOBIN 9.2 G/DL (12.0-16.0); LYMPHOCYTES % (AUTO) 10.6 % (20.0-45.0); MEAN CORPUSCULAR VOLUME 91 FL (80-99); NEUTROPHILS % (AUTO) 76.4 % (45.0-75.0); PLATELET COUNT 410 K/UL (150-450); RED CELL DISTRIBUTION WIDTH 17.4 % (11.6-14.8); WHITE BLOOD COUNT 10.7 K/UL (4.8-10.8)
[2019-02-17] MEDS: Lactobacillus-GG tablet ORAL SCH ×3 (09:54→18:17)
[2019-02-17] MEDS: Aspirin Baby 81mg NG SCH (09:55)
[2019-02-17 09:57] LABS: ALANINE AMINOTRANSFERASE 17 U/L (12-78); ALBUMIN 1.9 G/DL (3.4-5.0); ALBUMIN/GLOBULIN RATIO 0.5 (1.0-2.7); ALKALINE PHOSPHATASE 86 U/L (46-116); ANION GAP 10 mmol/L (5-15); ASPARTATE AMINO TRANSFERASE 14 U/L (15-37); BILIRUBIN,TOTAL 0.2 MG/DL (0.2-1.0); BLOOD UREA NITROGEN 37 mg/dL (7-18); CALCIUM 7.8 MG/DL (8.5-10.1); CARBON DIOXIDE 28 MMOL/L (21-32); CHLORIDE 109 MMOL/L (98-107); CREATININE 4.3 MG/DL (0.55-1.30); POTASSIUM 3.9 MMOL/L (3.5-5.1); SODIUM 147 MMOL/L (136-145)
[2019-02-17] MEDS: Vancomycin oral 125mg/2.5ml NG SCH ×4 (09:57→21:17)
--- NOTE | 2019-02-17 10:20 | NUR ---
NURSE NOTES: HD RN Rene notified in person, he is aware.
--- NOTE | 2019-02-17 10:44 | GI Progress Note ---
Assessment/Plan Problems: (1) Upper GI bleeding ICD Codes: K92.2 - Gastrointestinal hemorrhage, unspecified SNOMED: 33246104 (2) Hemorrhagic shock ICD Codes: R57.8 - Hemorrhagic shock SNOMED: 189294 (3) Anemia ICD Codes: D64.9 - Anemia, unspecified SNOMED: 761939070 Status: progressing Status Narrative Discussed with Dr. Herrera Assessment/Plan s/p EGD SUMMARY OF FINDINGS: Most probably bleeding from the polypectomy site status post epinephrine injection, hemoclip placement, and epinephrine washed. stable H&H cdiff positive Patient on renal diet Push p.o. ASA dc ppi, add H2B due to C. difficile abx per ID monitor H&H, prn transfusion follow labs The patient was seen and examined at bedside and all new and available data was reviewed in the patients chart. I agree with the above findings, impression and plan. (Patient seen earlier today. Signature stamp does not reflect patient encounter time.). - Fabrizio Herrera MD Subjective Subjective Limited Complaint of mild abdominal pain Denies any diarrhea Objective Last 24 Hour Vital Signs Date Time Temp Pulse Resp B/P (MAP) Pulse Ox O2 Delivery O2 Flow Rate FiO2 02/17/19 08:09 97 Nasal Cannula 3.0 32 02/17/19 08:09 Nasal Cannula 3.0 32 02/17/19 06:24 109/70 02/17/19 04:58 88 16 98 Facial 30 02/17/19 04:00 98.4 87 18 120/68 (85) 99 02/17/19 02:30 89 17 98 Facial 30 02/17/19 01:10 91 16 98 Facial 30 02/17/19 00:47 123/59 02/17/19 00:00 98.1 98 17 123/59 (80) 96 02/16/19 23:40 91 16 96 Facial 30 02/16/19 21:00 Nasal Cannula 3.0 02/16/19 20:00 98.2 95 18 120/62 (81) 96 02/16/19 19:56 Nasal Cannula 3.0 32 02/16/19 19:56 97 Nasal Cannula 3.0 32 02/16/19 19:56 97 18 98 02/16/19 17:21 122/56 02/16/19 15:54 98.5 76 18 122/56 (78) 98 02/16/19 12:25 111/57 02/16/19 12:00 98.4 77 16 111/57 (75) 94 Intake and Output 02/16/19 02/17/19 19:00 07:00 Intake Total 100 ml Output Total 600 ml 200 ml Balance -500 ml -200 ml IV Total 100 ml Output Urine Total 600 ml 200 ml # Voids 1 Laboratory Tests Test 02/17/19 09:00 White Blood Count 10.7 K/UL (4.8-10.8) Red Blood Count 3.20 M/UL (4.20-5.40) L Hemoglobin 9.2 G/DL (12.0-16.0) L Hematocrit 29.2 % (37.0-47.0) L Mean Corpuscular Volume 91 FL (80-99) Mean Corpuscular Hemoglobin 28.8 PG (27.0-31.0) Mean Corpuscular Hemoglobin Concent 31.6 G/DL (32.0-36.0) L Red Cell Distribution Width 17.4 % (11.6-14.8) H Platelet Count 410 K/UL (150-450) Mean Platelet Volume 8.7 FL (6.5-10.1) Neutrophils (%) (Auto) 76.4 % (45.0-75.0) H Lymphocytes (%) (Auto) 10.6 % (20.0-45.0) L Monocytes (%) (Auto) 7.0 % (1.0-10.0) Eosinophils (%) (Auto) 5.5 % (0.0-3.0) H Basophils (%) (Auto) 0.5 % (0.0-2.0) Sodium Level 147 MMOL/L (136-145) H Potassium Level 3.9 MMOL/L (3.5-5.1) Chloride Level 109 MMOL/L (98-107) H Carbon Dioxide Level 28 MMOL/L (21-32) Anion Gap 10 mmol/L (5-15) Blood Urea Nitrogen 37 mg/dL (7-18) H Creatinine 4.3 MG/DL (0.55-1.30) H Estimat Glomerular Filtration Rate 12.5 mL/min (>60) Glucose Level 148 MG/DL (74-106) H Calcium Level 7.8 MG/DL (8.5-10.1) L Phosphorus Level 4.0 MG/DL (2.5-4.9) Total Bilirubin 0.2 MG/DL (0.2-1.0) Aspartate Amino Transf (AST/SGOT) 14 U/L (15-37) L Alanine Aminotransferase (ALT/SGPT) 17 U/L (12-78) Alkaline Phosphatase 86 U/L (46-116) Troponin I 0.085 ng/mL (0.000-0.056) Total Protein 5.9 G/DL (6.4-8.2) L Albumin 1.9 G/DL (3.4-5.0) L Globulin 4.0 g/dL Albumin/Globulin Ratio 0.5 (1.0-2.7) L Height (Feet): 5 Height (Inches): 6.00 Weight (Pounds): 169 General Appearance: WD/WN, no apparent distress, alert Cardiovascular: normal rate Respiratory/Chest: normal breath sounds, no respiratory distress Abdominal Exam: normal bowel sounds, non tender, soft Extremities: non-tender Rachel Simpson MORTGAGE [employer] LOAN UNDERWRITER Feb 17, 2019 10:44
--- NOTE | 2019-02-17 11:30 | NUR ---
NURSE NOTES: notified dr. Ryan re troponin level trending down at 0.085. Spoken to process analyst Jacob.
--- NOTE | 2019-02-17 11:34 | NUR ---
NURSE NOTES: Informed dr. Franco company secretary Kelley troponin trending down, current level at 0.085
[2019-02-17 12:00] VITALS: BP 108/58
--- NOTE | 2019-02-17 12:27 | Pulmonology Progress Note ---
Assessment/Plan Problems: (1) C. difficile colitis (2) Hemorrhagic shock (3) Upper GI bleeding (4) Anemia (5) ESRF (end stage renal failure) (6) S/P AKA (above knee amputation) unilateral (7) Diabetes mellitus Assessment/Plan doing better on Vancomycin po for Cdiff continue abx for MDR sputum check h/h, prbc prn HD by jewel diameter gauger CXR is much better now titrate fio2 to sat of 92% check electrolytes. dvt prophylaxis isolation for C-diff med/surg pending discharge Subjective ROS Limited/Unobtainable: No Constitutional: Reports: no symptoms HEENT: Repors: no symptoms Allergies: Coded Allergies: No Known Allergies (Unverified , 09/15/16) Objective Last 24 Hour Vital Signs Date Time Temp Pulse Resp B/P (MAP) Pulse Ox O2 Delivery O2 Flow Rate FiO2 02/17/19 09:00 Nasal Cannula 3.0 02/17/19 08:09 97 Nasal Cannula 3.0 32 02/17/19 08:09 Nasal Cannula 3.0 32 02/17/19 08:00 98.9 87 20 103/61 (75) 99 02/17/19 06:24 109/70 02/17/19 04:58 88 16 98 Facial 30 02/17/19 04:00 98.4 87 18 120/68 (85) 99 02/17/19 02:30 89 17 98 Facial 30 02/17/19 01:10 91 16 98 Facial 30 02/17/19 00:47 123/59 02/17/19 00:00 98.1 98 17 123/59 (80) 96 02/16/19 23:40 91 16 96 Facial 30 02/16/19 21:00 Nasal Cannula 3.0 02/16/19 20:00 98.2 95 18 120/62 (81) 96 02/16/19 19:56 Nasal Cannula 3.0 32 02/16/19 19:56 97 Nasal Cannula 3.0 32 02/16/19 19:56 97 18 98 02/16/19 17:21 122/56 02/16/19 15:54 98.5 76 18 122/56 (78) 98 Intake and Output 02/16/19 02/17/19 19:00 07:00 Intake Total 100 ml Output Total 600 ml 200 ml Balance -500 ml -200 ml IV Total 100 ml Output Urine Total 600 ml 200 ml # Voids 1 General Appearance: WD/WN HEENT: normocephalic, atraumatic Respiratory/Chest: chest wall non-tender, lungs clear Breasts: no masses Cardiovascular: normal peripheral pulses Abdomen: normal bowel sounds Genitourinary: normal external genitalia Extremities: no cyanosis Neurologic/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: 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 grossly normal Lymphatic: no groin adenopathy Laboratory Tests 02/17/19 09:00: White Blood Count 10.7, Red Blood Count 3.20L, Hemoglobin 9.2L, Hematocrit 29.2L , Mean Corpuscular Volume 91, Mean Corpuscular Hemoglobin 28.8, Mean Corpuscular Hemoglobin Concent 31.6L, Red Cell Distribution Width 17.4H, Platelet Count 410, Mean Platelet Volume 8.7, Neutrophils (%) (Auto) 76.4H, Lymphocytes (%) (Auto) 10.6L, Monocytes (%) (Auto) 7.0, Eosinophils (%) (Auto) 5.5H, Basophils (%) (Auto) 0.5, Sodium Level 147H, Potassium Level 3.9, Chloride Level 109H, Carbon Dioxide Level 28, Anion Gap 10, Blood Urea Nitrogen 37H, Creatinine 4.3H, Estimat Glomerular Filtration Rate 12.5, Glucose Level 148H, Calcium Level 7.8L, Phosphorus Level 4.0, Total Bilirubin 0.2, Aspartate Amino Transf (AST/SGOT) 14L, Alanine Aminotransferase (ALT/SGPT) 17, Alkaline Phosphatase 86, Troponin I 0.085H, Total Protein 5.9L, Albumin 1.9L, Globulin 4.0, Albumin/Globulin Ratio 0.5L Current Medications Medications (Trade) Dose Ordered Sig/Althea Route PRN Reason Start Time Stop Time Status Last Admin Dose Admin Acetaminophen (Tylenol) 650 mg Q4H PRN ORAL T>100.5 02/15/19 20:15 03/08/19 04:02 Aspirin (ASA) 81 mg DAILY NG 02/16/19 09:00 03/12/19 08:59 02/17/19 09:55 Dextrose (Dextrose 50%) 25 ml Q30M PRN IV Hypoglycemia 02/15/19 19:00 03/08/19 10:29 Dextrose (Dextrose 50%) 50 ml Q30M PRN IV Hypoglycemia 02/15/19 19:00 03/08/19 10:29 Epoetin Romeo (Epoetin Romeo(ESRD on dialysis)) 10,000 unit SUN-SUN-SUN SUBQ 02/17/19 21:00 03/14/19 20:59 Lactobacillus Acidophilus (Culturelle) 1 tab THREE TIMES A DAY ORAL 02/16/19 09:00 03/17/19 08:59 02/17/19 09:54 Metronidazole 100 ml @ 100 mls/hr Q8HR IVPB 02/15/19 22:00 02/22/19 13:59 02/17/19 06:24 Nitroglycerin (Nitro-Bid) 2 inch Q6HR TOPIC 02/16/19 00:00 03/10/19 17:59 02/17/19 06:24 Nitroglycerin (Ntg) 0.4 mg Q5M X 3 DOSES PRN SL Prn Chest Pain 02/15/19 19:00 03/08/19 10:29 Ondansetron HCl (Zofran) 4 mg Q6H PRN IVP Nausea & Vomiting 02/15/19 22:15 03/08/19 04:02 Pantoprazole (Protonix) 40 mg Q12HR ORAL 02/15/19 21:00 03/16/19 20:59 02/17/19 09:55 Polyethylene Glycol (Miralax) 17 gm HSPRN PRN ORAL Constipation 02/15/19 21:00 03/08/19 20:59 Temazepam (Restoril) 15 mg HSPRN PRN ORAL Insomnia 02/15/19 21:00 02/22/19 20:59 Vancomycin HCl (Firvanq) 125 mg FOUR TIMES A DAY NG 02/15/19 21:00 02/19/19 12:59 02/17/19 09:57 Lit Cerna MD Feb 17, 2019 12:27
--- NOTE | 2019-02-17 12:31 | NUR ---
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 HEMORRHAGIC SHOCK VS: BP 103/61, P 87, T 98.9, RR 16, SpO2 97 3.0L NC FiO2 32 RBC 3.20, Hgb 9.2, Hct 29.2, NA 147, BUN 37, CR 4.3 IS:ZOFRAN 4mg METRONIDAZOLE 100ml IVPB PROTONIX 40mg VANCOMYCIN 125mg NG MED/SURG STATUS
--- NOTE | 2019-02-17 13:12 | NUR ---
ST NOTE: SWALLOW STATUS: FOLLOWED UP PT'S CONDITIONS. PT SEEN AT BEDSIDE IN PM. GIVEN PO TRIALS: NECTAR THICK(TSP) AND PUREE(TSP) MILDLY INCREASED ORAL TRANSIT TIME AND OROPHARYNGEAL TRANSIT TIME, FAIR LARYNGEAL ELEVATION, NO OVERT S/S OF ASPIRATION. D/W THE STAFF RE: ASPIRATION PRECAUTIONS AND DIET CONSISTENCIES. D/W THE STAFF.
--- NOTE | 2019-02-17 14:40 | NUR ---
NURSE NOTES: noted with minimal vaginal bleeding, notified dr. Cerna, no new orders give.
--- NOTE | 2019-02-17 14:52 | NUR ---
RD ASSESSMENT & RECOMMENDATIONS SEE CARE ACTIVITY FOR COMPLETE ASSESSMENT DAILY ESTIMATED NEEDS: Needs based on ESRD W/ HD/ 65.8kg 28-30 kcals/kg 2609-5459 total kcals 1.25-1.8 g protein/kg 82-118 g total protein Fluid per MD, on HD NUTRITION DIAGNOSIS: (1) Increased kcal/pro needs R/T renal dysfunction as evidenced by pt w/ ESRD dx, on HD (2) Swallowing difficulty R/T dysphagia w/ h/o CVA as evidenced by pt on mechanically altered texture diet during prev adm, now s/p extubation, on venturi mask, on NGT feeding-> now cleared for oarl diet. CURRENT DIET: CCHO MED/ RENAL w/ NTL PO DIET RECOMMENDATIONS: IF SAFE FOR PO-> RENAL, CCHO MED/ texture per GEODETIC ADVISOR ADDITIONAL RECOMMENDATIONS: * Obtain dry weight (after dialysis) on CALIBRATED bedscale * GEODETIC ADVISOR eval for possible oral diet initiation * Rec accucheck w/ SSI - h/o DM, BGs in the 200's, now lower to 100's. -> consider hypoglycemic agents for BG control * Monitor lytes, replete as needed Addendum: 02/17/19 at [address] * Monitor po intake, need for supplements and/or snacks
--- NOTE | 2019-02-17 15:58 | Infectious Diseases Prog Note ---
Assessment/Plan Assessment/Plan Assessment: Hypotension , SP- 2ry to massive GIB Leukocytosis, resolved- in the setting of above and aspiration PNA and Cdiff -02/13 CXR: Extensive airspace disease probably due to CHF with some interval improvement. -02/12 CXR: Extensive airspace opacities present bilaterally without change -CXR: Interval worsening bilateral airspace opacities, more consolidated in the right upper lobe Query small right pleural effusion. -sp cx normal resp annabelle Cdiff colitis -Cdiff toxin A/b EIA + Fever, SP Acute respiratory failure s/p intubation 02/06 (for airway protection), s/p extubated 02/07; now no VM CONS bacteremia; likely contaminant -02/05 Bcx / CONS; 02/10 Bcx NTD hx of ESBL UTI ESRD on HD GERD Dm2 CVA w/ R side weakness HTN HLD PVD s/p AKA Alzheimer dementia lung mass multiple gastric polyps s/p polypectomy gastric antral vascular ectasis DVT NH resident Plan: -Cont PO Vancomycin 125mg qid #05/02 and ed/c Flagyl #3 -02/13 SP Ceftriaxone #2 -02/12 SP Zosyn #6 -f.u cx -Monitor CBC/CMP, temperatures -aspiration precautions Will continue to follow along with you. Subjective Allergies: Coded Allergies: No Known Allergies (Unverified , 09/15/16) Subjective afebrile leukocytosis resolved repeat Bcx Neg at 2l NC Objective Vital Signs Last 24 Hour Vital Signs Date Time Temp Pulse Resp B/P (MAP) Pulse Ox O2 Delivery O2 Flow Rate FiO2 02/17/19 14:05 108/58 02/17/19 12:00 99.0 92 20 108/58 (75) 98 02/17/19 09:00 Nasal Cannula 3.0 02/17/19 08:09 97 Nasal Cannula 3.0 32 02/17/19 08:09 Nasal Cannula 3.0 32 02/17/19 08:00 98.9 87 20 103/61 (75) 99 02/17/19 06:24 109/70 02/17/19 04:58 88 16 98 Facial 30 02/17/19 04:00 98.4 87 18 120/68 (85) 99 02/17/19 02:30 89 17 98 Facial 30 02/17/19 01:10 91 16 98 Facial 30 02/17/19 00:47 123/59 02/17/19 00:00 98.1 98 17 123/59 (80) 96 02/16/19 23:40 91 16 96 Facial 30 02/16/19 21:00 Nasal Cannula 3.0 02/16/19 20:00 98.2 95 18 120/62 (81) 96 02/16/19 19:56 Nasal Cannula 3.0 32 02/16/19 19:56 97 Nasal Cannula 3.0 32 02/16/19 19:56 97 18 98 02/16/19 17:21 122/56 02/16/19 15:54 98.5 76 18 122/56 (78) 98 Height (Feet): 5 Height (Inches): 6.00 Weight (Pounds): 169 Objective GENERAL: Shows to be elderly female, on BiPAP therapy. NECK: Supple. No jugular venous distention. LUNGS: She does show some crackles and rhonchi. CARDIAC: Regular rhythm. Tachycardic. No heaves or thrills. ABDOMEN: Soft and nontender. Positive bowel sounds. EXTREMITIES: Right above-knee amputation Laboratory Tests Test 02/17/19 09:00 White Blood Count 10.7 K/UL (4.8-10.8) Red Blood Count 3.20 M/UL (4.20-5.40) L Hemoglobin 9.2 G/DL (12.0-16.0) L Hematocrit 29.2 % (37.0-47.0) L Mean Corpuscular Volume 91 FL (80-99) Mean Corpuscular Hemoglobin 28.8 PG (27.0-31.0) Mean Corpuscular Hemoglobin Concent 31.6 G/DL (32.0-36.0) L Red Cell Distribution Width 17.4 % (11.6-14.8) H Platelet Count 410 K/UL (150-450) Mean Platelet Volume 8.7 FL (6.5-10.1) Neutrophils (%) (Auto) 76.4 % (45.0-75.0) H Lymphocytes (%) (Auto) 10.6 % (20.0-45.0) L Monocytes (%) (Auto) 7.0 % (1.0-10.0) Eosinophils (%) (Auto) 5.5 % (0.0-3.0) H Basophils (%) (Auto) 0.5 % (0.0-2.0) Sodium Level 147 MMOL/L (136-145) H Potassium Level 3.9 MMOL/L (3.5-5.1) Chloride Level 109 MMOL/L (98-107) H Carbon Dioxide Level 28 MMOL/L (21-32) Anion Gap 10 mmol/L (5-15) Blood Urea Nitrogen 37 mg/dL (7-18) H Creatinine 4.3 MG/DL (0.55-1.30) H Estimat Glomerular Filtration Rate 12.5 mL/min (>60) Glucose Level 148 MG/DL (74-106) H Calcium Level 7.8 MG/DL (8.5-10.1) L Phosphorus Level 4.0 MG/DL (2.5-4.9) Total Bilirubin 0.2 MG/DL (0.2-1.0) Aspartate Amino Transf (AST/SGOT) 14 U/L (15-37) L Alanine Aminotransferase (ALT/SGPT) 17 U/L (12-78) Alkaline Phosphatase 86 U/L (46-116) Troponin I 0.085 ng/mL (0.000-0.056) Total Protein 5.9 G/DL (6.4-8.2) L Albumin 1.9 G/DL (3.4-5.0) L Globulin 4.0 g/dL Albumin/Globulin Ratio 0.5 (1.0-2.7) L Current Medications Medications (Trade) Dose Ordered Sig/Althea Route PRN Reason Start Time Stop Time Status Last Admin Dose Admin Acetaminophen (Tylenol) 650 mg Q4H PRN ORAL T>100.5 02/15/19 20:15 03/08/19 04:02 Aspirin (ASA) 81 mg DAILY NG 02/16/19 09:00 03/12/19 08:59 02/17/19 09:55 Dextrose (Dextrose 50%) 25 ml Q30M PRN IV Hypoglycemia 02/15/19 19:00 03/08/19 10:29 Dextrose (Dextrose 50%) 50 ml Q30M PRN IV Hypoglycemia 02/15/19 19:00 03/08/19 10:29 Epoetin Romeo (Epoetin Romeo(ESRD on dialysis)) 10,000 unit SUN-SUN-FRI SUBQ 02/17/19 21:00 03/14/19 20:59 Lactobacillus Acidophilus (Culturelle) 1 tab THREE TIMES A DAY ORAL 02/16/19 09:00 03/17/19 08:59 02/17/19 13:55 Metronidazole 100 ml @ 100 mls/hr Q8HR IVPB 02/15/19 22:00 02/22/19 13:59 02/17/19 13:56 Nitroglycerin (Nitro-Bid) 2 inch Q6HR TOPIC 02/16/19 00:00 03/10/19 17:59 02/17/19 14:05 Nitroglycerin (Ntg) 0.4 mg Q5M X 3 DOSES PRN SL Prn Chest Pain 02/15/19 19:00 03/08/19 10:29 Ondansetron HCl (Zofran) 4 mg Q6H PRN IVP Nausea & Vomiting 02/15/19 22:15 03/08/19 04:02 Pantoprazole (Protonix) 40 mg Q12HR ORAL 02/15/19 21:00 03/16/19 20:59 02/17/19 09:55 Polyethylene Glycol (Miralax) 17 gm HSPRN PRN ORAL Constipation 02/15/19 21:00 03/08/19 20:59 Temazepam (Restoril) 15 mg HSPRN PRN ORAL Insomnia 02/15/19 21:00 02/22/19 20:59 Vancomycin HCl (Firvanq) 125 mg FOUR TIMES A DAY NG 02/15/19 21:00 02/19/19 12:59 02/17/19 13:56 Daisy Arce M.D. Feb 17, 2019 15:58
[2019-02-17 16:00] VITALS: BP 114/62
--- NOTE | 2019-02-17 16:12 | NUR ---
CHARGE NURSE NOTES: OBTAIN ORDER FROM DR. SILVA TO DC PATIENT BACK TO [facility]. MD MADE AWARE PATIENT WITH MINIMAL VAGINAL BLEED NOTED. AND TROPONIN LEVEL TRENDING DOWN, 0.085 TODAY.
[2019-02-17] MEDS ORDERED: VANCOMYCIN HCL125 MG PO (16:20)
[2019-02-17] MEDS ORDERED: VANCOMYCIN250 MG/5 M NG (16:30)
--- NOTE | 2019-02-17 17:14 | NUR ---
DISCHARGE PLANNING FAXED REFERRAL TO [facility]POKE TO HOME AND HE WILL TAKE PATIENT BACK TOMORROW AFTER RECTAL TUBE IS REMOVED.
--- NOTE | 2019-02-17 19:45 | NUR ---
NURSE NOTES: Patient alseep, on 3L O2 via N/C, no SOB, no acute distress, no s/sx of pain. L upper arm AV shunt thrill and bruit. Rectal tube inplace, F/C draining yellowish urine by gravity. RFA IV intact, patent. Will cont care under contact iso for C diff.
--- NOTE | 2019-02-17 19:59 | NUR ---
NURSE NOTES: Per AM shift RN, Pt could not be DC's today because facility wants pt w/o rectal tube, D diff clear. Facility will accept pt w/o rectal tube tmrw. Informed to Dr Cerna.
[2019-02-17 20:00] VITALS: BP 111/53
[2019-02-17] MEDS: Epoetin Alfa(ESRD on dialysis)10,000 unit/ml vial SUBQ SCH (21:17)
[2019-02-18] VITALS: BP 129/62
[2019-02-18] MEDS: Nitroglycerin 2% oint pkt TOPIC SCH ×4 (00:10→17:29)
[2019-02-18 04:00] VITALS: BP 119/64
--- NOTE | 2019-02-18 07:33 | NUR ---
HAND-OFF: Report given to Chay HUBER.
[2019-02-18 08:00] VITALS: BP 131/71
[2019-02-18] MEDS: Vancomycin oral 125mg/2.5ml NG SCH ×4 (08:00→20:31)
[2019-02-18] MEDS: Aspirin Baby 81mg NG SCH (08:00)
[2019-02-18] MEDS: Lactobacillus-GG tablet ORAL SCH ×3 (08:00→17:30)
--- NOTE | 2019-02-18 09:25 | NUR ---
CHARGE NURSE NOTES: DR. JACOBSON MADE AWARE PATIENT HAS BED AT [facility] BUT CANNOT BE DISCHARGED UNTIL RECTAL TUBE REMOVED AND PATIENT IS CLEARED FROM C DIFF. ORDERED NEW COLLECTION FOR C DIFF. ORDERS ADDED. WILL CONTINUE TO MONITOR.
--- NOTE | 2019-02-18 09:49 | Nephrology Progress Note ---
Assessment/Plan Problem List: (1) Upper GI bleeding (2) Hemorrhagic shock (3) ESRF (end stage renal failure) (4) NSTEMI (non-ST elevated myocardial infarction) (5) Respiratory failure, acute (6) Lung mass (7) C. difficile colitis Assessment admitted with massive GI bleed and hypotension ESRD : M W Fr h/o UTI now , on vent, respitatory failure Other medical conditions; Type 2 diabetes. Hypertension. h/o Anemia of chronic renal disease Hypercholesterolemia. Peripheral vascular disease. Alzheimer's dementia. ?? LUNG Pathology PAST SURGICAL HISTORY: 1. Right [id number] amputation. 2. Open reduction internal fixation Plan Plan: started PO start EPO change protonix to po DC IV fluid HD next 02/18 monitor H&H monitor troponin I monitor lytes and renal parameters antibiotics for uti start NTG Paste lactobacillus and po Vanco for C dif ? DC planning Subjective ROS Limited/Unobtainable: No Constitutional: Reports: malaise Objective Objective Last 24 Hour Vital Signs Date Time Temp Pulse Resp B/P (MAP) Pulse Ox O2 Delivery O2 Flow Rate FiO2 02/18/19 06:00 119/65 02/18/19 04:00 99.0 92 17 119/64 (82) 96 02/18/19 00:10 125/65 02/18/19 00:00 97.3 94 17 129/62 (84) 94 02/17/19 21:00 Nasal Cannula 3.0 02/17/19 20:30 91 18 96 3.0 32 02/17/19 20:00 Nasal Cannula 3.0 32 02/17/19 20:00 97.2 87 17 111/53 (72) 93 02/17/19 20:00 96 Nasal Cannula 3.0 32 02/17/19 18:17 114/62 02/17/19 16:00 97.9 90 20 114/62 (79) 94 02/17/19 14:05 108/58 02/17/19 12:00 99.0 92 20 108/58 (75) 98 Intake and Output 02/17/19 02/18/19 19:00 07:00 Intake Total 460 ml Output Total 150 ml 600 ml Balance 310 ml -600 ml Intake Oral 360 ml IV Total 100 ml Output Urine Total 150 ml 600 ml Height (Feet): 5 Height (Inches): 6.00 Weight (Pounds): 170 General Appearance: no apparent distress Cardiovascular: tachycardia Respiratory/Chest: lungs clear Abdomen: soft, other - loose BM+ Objective no change Marques Motta MD Feb 18, 2019 09:49
--- NOTE | 2019-02-18 10:56 | NUR ---
NURSE NOTES: PT RESTING IN BED, IN NO APPARENT DISTRESS AT THIS TIME. PT DENIES PAIN. IN SEMI-MANZO'S POSITION WITH HOB ELEVATED. BED ALARM ON. CALL LIGHT WITHIN REACH. FREEDMAN CATH DRAINING CLEAR YELLOW URINE BY GRAVITY. RECTAL TUBE BAG WITH LIQUID STOOL. WILL CONTINUE TO MONITOR.
--- NOTE | 2019-02-18 11:20 | NUR ---
NURSE NOTES: RECTAL TUBE BAG CHANGED TO COLLECT OB STOOL.
--- NOTE | 2019-02-18 11:25 | GI Progress Note ---
Assessment/Plan Problems: (1) Upper GI bleeding ICD Codes: K92.2 - Gastrointestinal hemorrhage, unspecified SNOMED: 81879099 (2) Hemorrhagic shock ICD Codes: R57.8 - Hemorrhagic shock SNOMED: 198169 (3) Anemia ICD Codes: D64.9 - Anemia, unspecified SNOMED: 203525654 Status: stable Status Narrative Discussed with Dr. Herrera Assessment/Plan s/p EGD SUMMARY OF FINDINGS: Most probably bleeding from the polypectomy site status post epinephrine injection, hemoclip placement, and epinephrine washed. stable H&H cdiff positive Patient on renal diet Push p.o. ASA dc ppi, add H2B due to C. difficile abx per ID monitor H&H, prn transfusion follow labs The patient was seen and examined at bedside and all new and available data was reviewed in the patients chart. I agree with the above findings, impression and plan. (Patient seen earlier today. Signature stamp does not reflect patient encounter time.). - Fabrizio Herrera MD Subjective Gastrointestinal/Abdominal: Reports: no symptoms Subjective Limited Complaint of mild abdominal pain Denies any diarrhea Objective Last 24 Hour Vital Signs Date Time Temp Pulse Resp B/P (MAP) Pulse Ox O2 Delivery O2 Flow Rate FiO2 02/18/19 09:00 Nasal Cannula 3.0 02/18/19 08:45 Nasal Cannula 3.0 32 02/18/19 08:45 98 Nasal Cannula 3.0 32 02/18/19 08:00 97.5 81 17 131/71 (91) 96 02/18/19 06:00 119/65 02/18/19 04:00 99.0 92 17 119/64 (82) 96 02/18/19 00:10 125/65 02/18/19 00:00 97.3 94 17 129/62 (84) 94 02/17/19 21:00 Nasal Cannula 3.0 02/17/19 20:30 91 18 96 3.0 32 02/17/19 20:00 Nasal Cannula 3.0 32 02/17/19 20:00 97.2 87 17 111/53 (72) 93 02/17/19 20:00 96 Nasal Cannula 3.0 32 02/17/19 18:17 114/62 02/17/19 16:00 97.9 90 20 114/62 (79) 94 02/17/19 14:05 108/58 02/17/19 12:00 99.0 92 20 108/58 (75) 98 Intake and Output 02/17/19 02/18/19 19:00 07:00 Intake Total 460 ml Output Total 150 ml 600 ml Balance 310 ml -600 ml Intake Oral 360 ml IV Total 100 ml Output Urine Total 150 ml 600 ml Height (Feet): 5 Height (Inches): 6.00 Weight (Pounds): 170 General Appearance: WD/WN, no apparent distress, alert Cardiovascular: normal rate Respiratory/Chest: normal breath sounds, no respiratory distress Abdominal Exam: normal bowel sounds, non tender, soft Extremities: normal range of motion, non-tender Rachel Simpson NP Feb 18, 2019 11:25
[2019-02-18 12:00] VITALS: BP 116/65
--- NOTE | 2019-02-18 13:41 | Infectious Diseases Prog Note ---
Assessment/Plan Assessment/Plan Assessment: Hypotension , SP- 2ry to massive GIB Leukocytosis, resolved- in the setting of above and aspiration PNA and Cdiff -02/13 CXR: Extensive airspace disease probably due to CHF with some interval improvement. -02/12 CXR: Extensive airspace opacities present bilaterally without change -CXR: Interval worsening bilateral airspace opacities, more consolidated in the right upper lobe Query small right pleural effusion. -sp cx normal resp annabelle Cdiff colitis -Cdiff toxin A/b EIA + Fever, SP Acute respiratory failure s/p intubation 02/06 (for airway protection), s/p extubated 02/07; now no VM CONS bacteremia; likely contaminant -02/05 Bcx / CONS; 02/10 Bcx NTD hx of ESBL UTI ESRD on HD GERD Dm2 CVA w/ R side weakness HTN HLD PVD s/p AKA Alzheimer dementia lung mass multiple gastric polyps s/p polypectomy gastric antral vascular ectasis DVT NH resident Plan: -Cont PO Vancomycin 125mg qid #7/14 -02/17 SP Flagyl #3 -02/13 SP Ceftriaxone #2 -02/12 SP Zosyn #6 -f.u cx -Monitor CBC/CMP, temperatures -aspiration precautions Will continue to follow along with you. Subjective Allergies: Coded Allergies: No Known Allergies (Unverified , 09/15/16) Subjective afebrile no leukocytosis at 3l NC Objective Vital Signs Last 24 Hour Vital Signs Date Time Temp Pulse Resp B/P (MAP) Pulse Ox O2 Delivery O2 Flow Rate FiO2 02/18/19 12:28 116/65 02/18/19 12:00 97.6 85 19 116/65 (82) 95 02/18/19 09:00 Nasal Cannula 3.0 02/18/19 08:45 Nasal Cannula 3.0 32 02/18/19 08:45 98 Nasal Cannula 3.0 32 02/18/19 08:00 97.5 81 17 131/71 (91) 96 02/18/19 06:00 119/65 02/18/19 04:00 99.0 92 17 119/64 (82) 96 02/18/19 00:10 125/65 02/18/19 00:00 97.3 94 17 129/62 (84) 94 02/17/19 21:00 Nasal Cannula 3.0 02/17/19 20:30 91 18 96 3.0 32 02/17/19 20:00 Nasal Cannula 3.0 32 02/17/19 20:00 97.2 87 17 111/53 (72) 93 02/17/19 20:00 96 Nasal Cannula 3.0 32 02/17/19 18:17 114/62 02/17/19 16:00 97.9 90 20 114/62 (79) 94 02/17/19 14:05 108/58 Height (Feet): 5 Height (Inches): 6.00 Weight (Pounds): 170 Objective GENERAL: Shows to be elderly female, on BiPAP therapy. NECK: Supple. No jugular venous distention. LUNGS: She does show some crackles and rhonchi. CARDIAC: Regular rhythm. Tachycardic. No heaves or thrills. ABDOMEN: Soft and nontender. Positive bowel sounds. EXTREMITIES: Right above-knee amputation Current Medications Medications (Trade) Dose Ordered Sig/Althea Route PRN Reason Start Time Stop Time Status Last Admin Dose Admin Acetaminophen (Tylenol) 650 mg Q4H PRN ORAL T>100.5 02/15/19 20:15 03/08/19 04:02 Aspirin (ASA) 81 mg DAILY NG 02/16/19 09:00 03/12/19 08:59 02/18/19 08:00 Dextrose (Dextrose 50%) 25 ml Q30M PRN IV Hypoglycemia 02/15/19 19:00 03/08/19 10:29 Dextrose (Dextrose 50%) 50 ml Q30M PRN IV Hypoglycemia 02/15/19 19:00 03/08/19 10:29 Epoetin Romeo (Epoetin Romeo(ESRD on dialysis)) 10,000 unit SUN-SUN-SUN SUBQ 02/17/19 21:00 03/14/19 20:59 02/17/19 21:17 Lactobacillus Acidophilus (Culturelle) 1 tab THREE TIMES A DAY ORAL 02/16/19 09:00 03/17/19 08:59 02/18/19 12:28 Nitroglycerin (Nitro-Bid) 2 inch Q6HR TOPIC 02/16/19 00:00 03/10/19 17:59 02/18/19 12:28 Nitroglycerin (Ntg) 0.4 mg Q5M X 3 DOSES PRN SL Prn Chest Pain 02/15/19 19:00 03/08/19 10:29 Ondansetron HCl (Zofran) 4 mg Q6H PRN IVP Nausea & Vomiting 02/15/19 22:15 03/08/19 04:02 Pantoprazole (Protonix) 40 mg Q12HR ORAL 02/15/19 21:00 03/16/19 20:59 02/18/19 08:00 Polyethylene Glycol (Miralax) 17 gm HSPRN PRN ORAL Constipation 02/15/19 21:00 03/08/19 20:59 Temazepam (Restoril) 15 mg HSPRN PRN ORAL Insomnia 02/15/19 21:00 02/22/19 20:59 Vancomycin HCl (Firvanq) 125 mg FOUR TIMES A DAY NG 02/15/19 21:00 02/25/19 23:59 02/18/19 12:28 Daisy Arce M.D. Feb 18, 2019 13:41
--- NOTE | 2019-02-18 13:45 | Pulmonology Progress Note ---
Assessment/Plan Problems: (1) C. 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 dvt prophylaxis isolation for C-diff med/surg pending discharge Subjective ROS Limited/Unobtainable: No Constitutional: Reports: no symptoms HEENT: Repors: no symptoms Allergies: Coded Allergies: No Known Allergies (Unverified , 09/15/16) Objective Last 24 Hour Vital Signs Date Time Temp Pulse Resp B/P (MAP) Pulse Ox O2 Delivery O2 Flow Rate FiO2 02/18/19 12:28 116/65 02/18/19 12:00 97.6 85 19 116/65 (82) 95 02/18/19 09:00 Nasal Cannula 3.0 02/18/19 08:45 Nasal Cannula 3.0 32 02/18/19 08:45 98 Nasal Cannula 3.0 32 02/18/19 08:00 97.5 81 17 131/71 (91) 96 02/18/19 06:00 119/65 02/18/19 04:00 99.0 92 17 119/64 (82) 96 02/18/19 00:10 125/65 02/18/19 00:00 97.3 94 17 129/62 (84) 94 02/17/19 21:00 Nasal Cannula 3.0 02/17/19 20:30 91 18 96 3.0 32 02/17/19 20:00 Nasal Cannula 3.0 32 02/17/19 20:00 97.2 87 17 111/53 (72) 93 02/17/19 20:00 96 Nasal Cannula 3.0 32 02/17/19 18:17 114/62 02/17/19 16:00 97.9 90 20 114/62 (79) 94 02/17/19 14:05 108/58 Intake and Output 02/17/19 02/18/19 19:00 07:00 Intake Total 460 ml Output Total 150 ml 600 ml Balance 310 ml -600 ml Intake Oral 360 ml IV Total 100 ml Output Urine Total 150 ml 600 ml General Appearance: no acute distress HEENT: normocephalic, atraumatic Respiratory/Chest: chest wall non-tender, lungs clear Breasts: no masses Cardiovascular: regular rhythm Abdomen: normal bowel sounds, soft, non tender Skin: no rash Neurologic/Psychiatric: no motor/sensory deficits Lymphatic: no neck adenopathy Current Medications Medications (Trade) Dose Ordered Sig/Althea Route PRN Reason Start Time Stop Time Status Last Admin Dose Admin Acetaminophen (Tylenol) 650 mg Q4H PRN ORAL T>100.5 02/15/19 20:15 03/08/19 04:02 Aspirin (ASA) 81 mg DAILY NG 02/16/19 09:00 03/12/19 08:59 02/18/19 08:00 Dextrose (Dextrose 50%) 25 ml Q30M PRN IV Hypoglycemia 02/15/19 19:00 03/08/19 10:29 Dextrose (Dextrose 50%) 50 ml Q30M PRN IV Hypoglycemia 02/15/19 19:00 03/08/19 10:29 Epoetin Romeo (Epoetin Romeo(ESRD on dialysis)) 10,000 unit SUN-SUN-SUN SUBQ 02/17/19 21:00 03/14/19 20:59 02/17/19 21:17 Lactobacillus Acidophilus (Culturelle) 1 tab THREE TIMES A DAY ORAL 02/16/19 09:00 03/17/19 08:59 02/18/19 12:28 Nitroglycerin (Nitro-Bid) 2 inch Q6HR TOPIC 02/16/19 00:00 03/10/19 17:59 02/18/19 12:28 Nitroglycerin (Ntg) 0.4 mg Q5M X 3 DOSES PRN SL Prn Chest Pain 02/15/19 19:00 03/08/19 10:29 Ondansetron HCl (Zofran) 4 mg Q6H PRN IVP Nausea & Vomiting 02/15/19 22:15 03/08/19 04:02 Pantoprazole (Protonix) 40 mg Q12HR ORAL 02/15/19 21:00 03/16/19 20:59 02/18/19 08:00 Polyethylene Glycol (Miralax) 17 gm HSPRN PRN ORAL Constipation 02/15/19 21:00 03/08/19 20:59 Temazepam (Restoril) 15 mg HSPRN PRN ORAL Insomnia 02/15/19 21:00 02/22/19 20:59 Vancomycin HCl (Firvanq) 125 mg FOUR TIMES A DAY NG 02/15/19 21:00 02/25/19 23:59 02/18/19 12:28 Lit Cerna MD Feb 18, 2019 13:45
--- NOTE | 2019-02-18 14:26 | NUR ---
DISCHARGE PLANNING SPOKE WITH MATA FROM [facility] SHE REQUESTED RECENT RESULTS OF C-DIFF AND ST EVAL NOTES. WILL FAX BOTH WHEN RESULTS BECOME AVAILABLE.
[2019-02-18 16:00] VITALS: BP 121/67
--- NOTE | 2019-02-18 17:02 | NUR ---
NURSE NOTES: STOOL FOR CDIFF SENT DOWN TO LAB. PT FINISHED HEMODIALYSIS TODAY, IN STABLE CONDITION.
--- NOTE | 2019-02-18 17:02 | NUR ---
HAND-OFF: Report given to Manuel DICKEY LVN.
--- NOTE | 2019-02-18 17:40 | NUR ---
RECEIVED ENDORSEMENT FROM Lali RN PATIENT HEAD OF THE BED UP 60 DEGREES HAVING DINNER CAN FEED HERSELF WITH ASSISTING OPENING CONTAINER F(FOOD) NO ACUTE DISTRESS.. CALL LIGHT IN REACH
--- NOTE | 2019-02-18 18:33 | Cardiology Progress Note ---
Assessment/Plan Assessment/Plan 1. [id number] myocardial infarction likely demand relatred 2. Recent gastrointestinal bleeding, hemoclip placement. 3. History of vomiting and possible aspiration. 4. Pneumonia. 5. Diabetes mellitus. 6. Tachycardia. 7. Anemia. 8. Leukocytosis, likely secondary to pneumonia. 9. End-stage renal disease, on hemodialysis. 10. Bacteremia contaminant 11. c diff colitis looks good ! off tele now on nc eating is on Ecotrin abx hgb stable on ecotrin improved pulm lorenzana Subjective Cardiovascular: Denies: chest pain, lightheadedness, palpitations Respiratory: Denies: SOB with excertion Gastrointestinal/Abdominal: Denies: abdominal pain Genitourinary: Denies: burning Objective Last 24 Hour Vital Signs Date Time Temp Pulse Resp B/P (MAP) Pulse Ox O2 Delivery O2 Flow Rate FiO2 02/18/19 17:29 121/67 02/18/19 16:00 98.0 82 17 121/67 (85) 95 02/18/19 12:28 116/65 02/18/19 12:00 97.6 85 19 116/65 (82) 95 02/18/19 09:00 Nasal Cannula 3.0 02/18/19 08:45 Nasal Cannula 3.0 32 02/18/19 08:45 98 Nasal Cannula 3.0 32 02/18/19 08:00 97.5 81 17 131/71 (91) 96 02/18/19 06:00 119/65 02/18/19 04:00 99.0 92 17 119/64 (82) 96 02/18/19 00:10 125/65 02/18/19 00:00 97.3 94 17 129/62 (84) 94 02/17/19 21:00 Nasal Cannula 3.0 02/17/19 20:30 91 18 96 3.0 32 02/17/19 20:00 Nasal Cannula 3.0 32 02/17/19 20:00 97.2 87 17 111/53 (72) 93 02/17/19 20:00 96 Nasal Cannula 3.0 32 General Appearance: no apparent distress, alert, other - eating fast Neck: supple Cardiovascular: normal rate, regular rhythm Respiratory/Chest: lungs clear, normal breath sounds Abdomen: normal bowel sounds, non tender, soft Extremities: no swelling Intake and Output 02/17/19 02/18/19 19:00 07:00 Intake Total 460 ml Output Total 150 ml 600 ml Balance 310 ml -600 ml Intake Oral 360 ml IV Total 100 ml Output Urine Total 150 ml 600 ml Kaushik Franco MD Feb 18, 2019 18:33
[2019-02-18 20:00] VITALS: BP 122/65
--- NOTE | 2019-02-18 21:04 | NUR ---
NURSE NOTES: Pt is in bed, awake. No acute distress noted. Vitals stable. Pt is on 3L nasal canula. No SOB. Rectal tube in place draining loose dark brown stool. Stool sample sent to lab for c. diff. Bed low in position,side rails up and call light within reach. Pt will be monitored.
--- NOTE | 2019-02-18 23:30 | NUR ---
Pt is off bipap. Pt is on 3LPM NC, saO2 98%, no SOB noted. Discussed with MAYO Rivers pt needs to be in room with outlet. Addendum: 02/18/19 at 2353 by EDUARDO DOZIER RT Per RN, no room available.
[2019-02-19] VITALS (7 sets, daily range): BP systolic 108–133; BP diastolic 56–69
[2019-02-19] MEDS: Nitroglycerin 2% oint pkt TOPIC SCH ×5 (00:54→23:52)
--- NOTE | 2019-02-19 05:39 | NUR ---
NURSE NOTES: Pt is in bed, awake. Pt doesn't speak but nods head. Vitals stable, O2 sat stable at room air.
--- NOTE | 2019-02-19 07:10 | NUR ---
HAND-OFF: Report given to Xochitl Weller LVN.Pt is awake and verbal. No distress noted.
[2019-02-19 07:20] LABS: BASOPHILS % (AUTO) 0.7 % (0.0-2.0); EOSINOPHILS % (AUTO) 2.5 % (0.0-3.0); HEMATOCRIT 28.9 % (37.0-47.0); HEMOGLOBIN 9.2 G/DL (12.0-16.0); LYMPHOCYTES % (AUTO) 9.8 % (20.0-45.0); MEAN CORPUSCULAR VOLUME 92 FL (80-99); MONOCYTES % (AUTO) 6.7 % (1.0-10.0); NEUTROPHILS % (AUTO) 80.3 % (45.0-75.0); PLATELET COUNT 412 K/UL (150-450); RED BLOOD COUNT 3.15 M/UL (4.20-5.40); RED CELL DISTRIBUTION WIDTH 17.4 % (11.6-14.8); WHITE BLOOD COUNT 11.2 K/UL (4.8-10.8)
[2019-02-19 07:23] LABS: ALANINE AMINOTRANSFERASE 19 U/L (12-78); ALBUMIN/GLOBULIN RATIO 0.5 (1.0-2.7); ALKALINE PHOSPHATASE 84 U/L (46-116); ANION GAP 7 mmol/L (5-15); ASPARTATE AMINO TRANSFERASE 13 U/L (15-37); BILIRUBIN,TOTAL 0.3 MG/DL (0.2-1.0); BLOOD UREA NITROGEN 27 mg/dL (7-18); CALCIUM 7.6 MG/DL (8.5-10.1); CARBON DIOXIDE 30 MMOL/L (21-32); CHLORIDE 106 MMOL/L (98-107); CREATININE 3.4 MG/DL (0.55-1.30); PHOSPHORUS 3.5 MG/DL (2.5-4.9); POTASSIUM 3.9 MMOL/L (3.5-5.1); SODIUM 143 MMOL/L (136-145)
[2019-02-19] MEDS: Vancomycin oral 125mg/2.5ml NG SCH ×4 (08:23→21:05)
[2019-02-19] MEDS: Aspirin Baby 81mg NG SCH (08:23)
[2019-02-19] MEDS: Lactobacillus-GG tablet ORAL SCH ×3 (08:25→17:12)
--- NOTE | 2019-02-19 08:45 | NUR ---
RECEIVED PATIENT IN BED AWAKE.. PATIENT IS VERBAL, SPEECH DELAYED. NO RESPIRATORY DISTRESS OR SOB.. DENIES NO PAIN OR DISCOMFORT... WILL CONTINUE TO MONITOR FOR ANY DISTRESS PLACED HEAD OF THE BED UP 55 DEGREES TO PREVENT ANY ASPIRATION TOLERATED ALL MEDICATIONS AND FOOD... CALL LIGHT IN REACH
--- NOTE | 2019-02-19 10:52 | Infectious Diseases Prog Note ---
Assessment/Plan Assessment/Plan Abx: Zosyn 02/07- Assessment: Hypotension , SP- 2ry to massive GIB Leukocytosis, improving- in the setting of above and aspiration PNA and Cdiff -02/13 CXR: Extensive airspace disease probably due to CHF with some interval improvement. -02/12 CXR: Extensive airspace opacities present bilaterally without change -CXR: Interval worsening bilateral airspace opacities, more consolidated in the right upper lobe Query small right pleural effusion. -sp cx normal resp annabelle Cdiff colitis -Cdiff toxin A/b EIA + Fever, SP Acute respiratory failure s/p intubation 02/06 (for airway protection), s/p extubated 02/07; now no VM CONS bacteremia; likely contaminant -02/05 Bcx / CONS; 02/10 Bcx NTD hx of ESBL UTI ESRD on HD GERD Dm2 CVA w/ R side weakness HTN HLD PVD s/p AKA Alzheimer dementia lung mass multiple gastric polyps s/p polypectomy gastric antral vascular ectasis DVT NH resident Plan: -Cont PO Vancomycin 125mg qid #5/-14 -02/13 SP Ceftriaxone #2 -02/12 SP Zosyn #6 -f/u Bcx x2 -f.u cx -Monitor CBC/CMP, temperatures -aspiration precautions Will continue to follow along with you. Subjective Allergies: Coded Allergies: No Known Allergies (Unverified , 09/15/16) Subjective Afebrile Mild Leukocytosis Objective Vital Signs Last 24 Hour Vital Signs Date Time Temp Pulse Resp B/P (MAP) Pulse Ox O2 Delivery O2 Flow Rate FiO2 02/19/19 08:30 Nasal Cannula 3.0 02/19/19 08:00 97.5 19 113/69 (84) 97 02/19/19 07:59 97 Nasal Cannula 3.0 32 02/19/19 07:59 Nasal Cannula 3.0 32 02/19/19 06:11 117/56 02/19/19 04:00 98.1 93 18 117/56 (76) 96 02/19/19 00:54 121/60 02/19/19 00:00 98.1 60 17 121/60 (80) 98 02/18/19 23:30 88 18 98 3.0 32 02/18/19 21:00 Nasal Cannula 3.0 02/18/19 20:04 Nasal Cannula 3.0 32 02/18/19 20:04 96 Nasal Cannula 3.0 32 02/18/19 20:00 98.8 90 19 122/65 (84) 95 02/18/19 17:29 121/67 02/18/19 16:00 98.0 82 17 121/67 (85) 95 02/18/19 12:28 116/65 02/18/19 12:00 97.6 85 19 116/65 (82) 95 Height (Feet): 5 Height (Inches): 6.00 Weight (Pounds): 160 Objective GENERAL: NAD, On 3L NC LUNGS: Course B/L, No W CARDIAC: Regular rhythm. Tachycardic. ABDOMEN: Soft and nontender. Positive bowel sounds. EXTREMITIES: Right above-knee amputation Microbiology Date/Time Source Procedure Growth Status 02/18/19 20:00 Stool Clostridium difficile Toxin Assay - Final Complete Laboratory Tests Test 02/19/19 06:30 White Blood Count 11.2 K/UL (4.8-10.8) H Red Blood Count 3.15 M/UL (4.20-5.40) L Hemoglobin 9.2 G/DL (12.0-16.0) L Hematocrit 28.9 % (37.0-47.0) L Mean Corpuscular Volume 92 FL (80-99) Mean Corpuscular Hemoglobin 29.3 PG (27.0-31.0) Mean Corpuscular Hemoglobin Concent 31.9 G/DL (32.0-36.0) L Red Cell Distribution Width 17.4 % (11.6-14.8) H Platelet Count 412 K/UL (150-450) Mean Platelet Volume 8.0 FL (6.5-10.1) Neutrophils (%) (Auto) 80.3 % (45.0-75.0) H Lymphocytes (%) (Auto) 9.8 % (20.0-45.0) L Monocytes (%) (Auto) 6.7 % (1.0-10.0) Eosinophils (%) (Auto) 2.5 % (0.0-3.0) Basophils (%) (Auto) 0.7 % (0.0-2.0) Sodium Level 143 MMOL/L (136-145) Potassium Level 3.9 MMOL/L (3.5-5.1) Chloride Level 106 MMOL/L (98-107) Carbon Dioxide Level 30 MMOL/L (21-32) Anion Gap 7 mmol/L (5-15) Blood Urea Nitrogen 27 mg/dL (7-18) H Creatinine 3.4 MG/DL (0.55-1.30) H Estimat Glomerular Filtration Rate 16.4 mL/min (>60) Glucose Level 133 MG/DL (74-106) H Calcium Level 7.6 MG/DL (8.5-10.1) L Phosphorus Level 3.5 MG/DL (2.5-4.9) Magnesium Level 1.8 MG/DL (1.8-2.4) Total Bilirubin 0.3 MG/DL (0.2-1.0) Aspartate Amino Transf (AST/SGOT) 13 U/L (15-37) L Alanine Aminotransferase (ALT/SGPT) 19 U/L (12-78) Alkaline Phosphatase 84 U/L (46-116) C-Reactive Protein, Quantitative 1.3 mg/dL (0.00-0.90) H Total Protein 5.9 G/DL (6.4-8.2) L Albumin 2.0 G/DL (3.4-5.0) L Globulin 3.9 g/dL Albumin/Globulin Ratio 0.5 (1.0-2.7) L Current Medications Medications (Trade) Dose Ordered Sig/Althea Route PRN Reason Start Time Stop Time Status Last Admin Dose Admin Acetaminophen (Tylenol) 650 mg Q4H PRN ORAL T>100.5 02/15/19 20:15 03/08/19 04:02 Aspirin (ASA) 81 mg DAILY NG 02/16/19 09:00 03/12/19 08:59 02/19/19 08:23 Dextrose (Dextrose 50%) 25 ml Q30M PRN IV Hypoglycemia 02/15/19 19:00 03/08/19 10:29 Dextrose (Dextrose 50%) 50 ml Q30M PRN IV Hypoglycemia 02/15/19 19:00 03/08/19 10:29 Epoetin Romeo (Epoetin Romeo(ESRD on dialysis)) 10,000 unit SUN-SUN-SUN SUBQ 02/17/19 21:00 03/14/19 20:59 02/17/19 21:17 Lactobacillus Acidophilus (Culturelle) 1 tab THREE TIMES A DAY ORAL 02/16/19 09:00 03/17/19 08:59 02/19/19 08:25 Nitroglycerin (Nitro-Bid) 2 inch Q6HR TOPIC 02/16/19 00:00 03/10/19 17:59 02/19/19 06:11 Nitroglycerin (Ntg) 0.4 mg Q5M X 3 DOSES PRN SL Prn Chest Pain 02/15/19 19:00 03/08/19 10:29 Ondansetron HCl (Zofran) 4 mg Q6H PRN IVP Nausea & Vomiting 02/15/19 22:15 03/08/19 04:02 Pantoprazole (Protonix) 40 mg Q12HR ORAL 02/15/19 21:00 03/16/19 20:59 02/19/19 08:22 Polyethylene Glycol (Miralax) 17 gm HSPRN PRN ORAL Constipation 02/15/19 21:00 03/08/19 20:59 Temazepam (Restoril) 15 mg HSPRN PRN ORAL Insomnia 02/15/19 21:00 02/22/19 20:59 02/18/19 20:31 Vancomycin HCl (Firvanq) 125 mg FOUR TIMES A DAY NG 02/15/19 21:00 02/25/19 23:59 02/19/19 08:23 Alexey Peña MD Feb 19, 2019 10:52
--- NOTE | 2019-02-19 11:00 | NUR ---
PATIENT HAVING VAGINAL BLEEDING NOTIFIED Pawan ZARAGOZA CONSULT WITH Haylee GALO Addendum: 02/19/19 at 1302 by MILAD DICKEY LVN Pawan ZARAGOZA AWARE NOTED
--- NOTE | 2019-02-19 11:45 | GI Progress Note ---
Assessment/Plan Problems: (1) Upper GI bleeding ICD Codes: K92.2 - Gastrointestinal hemorrhage, unspecified SNOMED: 73470024 (2) Hemorrhagic shock ICD Codes: R57.8 - Hemorrhagic shock SNOMED: 920396 (3) Anemia ICD Codes: D64.9 - Anemia, unspecified SNOMED: 243580348 Status: stable Status Narrative Discussed with Dr. Herrera Assessment/Plan s/p EGD SUMMARY OF FINDINGS: Most probably bleeding from the polypectomy site status post epinephrine injection, hemoclip placement, and epinephrine washed. stable H&H cdiff positive Patient on renal diet Push p.o. ASA dc ppi, add H2B due to C. difficile abx per ID monitor H&H, prn transfusion follow labs The patient was seen and examined at bedside and all new and available data was reviewed in the patients chart. I agree with the above findings, impression and plan. (Patient seen earlier today. Signature stamp does not reflect patient encounter time.). - Fabrizio Herrera MD Subjective Subjective Limited Complaint of mild abdominal pain Denies any diarrhea Objective Last 24 Hour Vital Signs Date Time Temp Pulse Resp B/P (MAP) Pulse Ox O2 Delivery O2 Flow Rate FiO2 02/19/19 11:06 117/70 02/19/19 08:30 Nasal Cannula 3.0 02/19/19 08:00 97.5 19 113/69 (84) 97 02/19/19 07:59 97 Nasal Cannula 3.0 32 02/19/19 07:59 Nasal Cannula 3.0 32 02/19/19 06:11 117/56 02/19/19 04:00 98.1 93 18 117/56 (76) 96 02/19/19 00:54 121/60 02/19/19 00:00 98.1 60 17 121/60 (80) 98 02/18/19 23:30 88 18 98 3.0 32 02/18/19 21:00 Nasal Cannula 3.0 02/18/19 20:04 Nasal Cannula 3.0 32 02/18/19 20:04 96 Nasal Cannula 3.0 32 02/18/19 20:00 98.8 90 19 122/65 (84) 95 02/18/19 17:29 121/67 02/18/19 16:00 98.0 82 17 121/67 (85) 95 02/18/19 12:28 116/65 02/18/19 12:00 97.6 85 19 116/65 (82) 95 Intake and Output 02/18/19 02/19/19 19:00 07:00 Intake Total 900 ml 180 ml Output Total 450 ml 600 ml Balance 450 ml -420 ml Intake Oral 180 ml Other 900 ml Output Urine Total 450 ml 600 ml Laboratory Tests Test 02/19/19 06:30 White Blood Count 11.2 K/UL (4.8-10.8) H Red Blood Count 3.15 M/UL (4.20-5.40) L Hemoglobin 9.2 G/DL (12.0-16.0) L Hematocrit 28.9 % (37.0-47.0) L Mean Corpuscular Volume 92 FL (80-99) Mean Corpuscular Hemoglobin 29.3 PG (27.0-31.0) Mean Corpuscular Hemoglobin Concent 31.9 G/DL (32.0-36.0) L Red Cell Distribution Width 17.4 % (11.6-14.8) H Platelet Count 412 K/UL (150-450) Mean Platelet Volume 8.0 FL (6.5-10.1) Neutrophils (%) (Auto) 80.3 % (45.0-75.0) H Lymphocytes (%) (Auto) 9.8 % (20.0-45.0) L Monocytes (%) (Auto) 6.7 % (1.0-10.0) Eosinophils (%) (Auto) 2.5 % (0.0-3.0) Basophils (%) (Auto) 0.7 % (0.0-2.0) Sodium Level 143 MMOL/L (136-145) Potassium Level 3.9 MMOL/L (3.5-5.1) Chloride Level 106 MMOL/L (98-107) Carbon Dioxide Level 30 MMOL/L (21-32) Anion Gap 7 mmol/L (5-15) Blood Urea Nitrogen 27 mg/dL (7-18) H Creatinine 3.4 MG/DL (0.55-1.30) H Estimat Glomerular Filtration Rate 16.4 mL/min (>60) Glucose Level 133 MG/DL (74-106) H Calcium Level 7.6 MG/DL (8.5-10.1) L Phosphorus Level 3.5 MG/DL (2.5-4.9) Magnesium Level 1.8 MG/DL (1.8-2.4) Total Bilirubin 0.3 MG/DL (0.2-1.0) Aspartate Amino Transf (AST/SGOT) 13 U/L (15-37) L Alanine Aminotransferase (ALT/SGPT) 19 U/L (12-78) Alkaline Phosphatase 84 U/L (46-116) C-Reactive Protein, Quantitative 1.3 mg/dL (0.00-0.90) H Total Protein 5.9 G/DL (6.4-8.2) L Albumin 2.0 G/DL (3.4-5.0) L Globulin 3.9 g/dL Albumin/Globulin Ratio 0.5 (1.0-2.7) L Microbiology Date/Time Source Procedure Growth Status 02/18/19 20:00 Stool Clostridium difficile Toxin Assay - Final Complete Height (Feet): 5 Height (Inches): 6.00 Weight (Pounds): 160 General Appearance: WD/WN, no apparent distress, alert Cardiovascular: normal rate Respiratory/Chest: normal breath sounds, no respiratory distress Abdominal Exam: normal bowel sounds, non tender, soft Extremities: normal range of motion, non-tender Rachel Simpson NP Feb 19, 2019 11:45
--- NOTE | 2019-02-19 11:48 | NUR ---
REMOVED RECTAL TUBE PER M.D. ORDER FOLLOWED PROTOCOL
--- NOTE | 2019-02-19 12:36 | NUR ---
DISCHARGE PLANNED PT. WILL DC TO [facility] ROOM [address] ALF T- FOR NURSE TO NURSE REPORT ARRANGED AMBULANCE MAIL DISTRIBUTION SCHEME EXAMINER FOR 1630 CALLED NIDHI DE LA ROSA (DAUGHTER) NO MAIL DISTRIBUTION SCHEME EXAMINER LEFT A VOICE MAIL INFORMING HER ABOUT DC
--- NOTE | 2019-02-19 13:00 | Pulmonology Progress Note ---
Assessment/Plan Problems: (1) C. difficile colitis (2) Hemorrhagic shock (3) Upper GI bleeding (4) Anemia (5) ESRF (end stage renal failure) (6) S/P AKA (above knee amputation) unilateral (7) Diabetes mellitus Assessment/Plan premarin IV on Vancomycin po for Cdiff continue abx for MDR sputum check h/h, prbc prn HD by powder and primer canning leader CXR is much better now titrate fio2 to sat of 92% check electrolytes. dvt prophylaxis isolation for C-diff med/surg pending discharge tried to call painter sign maintenance, there is no NETWORK SECURITY OFFICER available Subjective ROS Limited/Unobtainable: No Constitutional: Reports: no symptoms Respiratory: Reports: no symptoms Allergies: Coded Allergies: No Known Allergies (Unverified , 09/15/16) Objective Last 24 Hour Vital Signs Date Time Temp Pulse Resp B/P (MAP) Pulse Ox O2 Delivery O2 Flow Rate FiO2 02/19/19 12:00 97.7 20 108/58 (75) 98 02/19/19 11:06 117/70 02/19/19 08:30 Nasal Cannula 3.0 02/19/19 08:00 97.5 19 113/69 (84) 97 02/19/19 07:59 97 Nasal Cannula 3.0 32 02/19/19 07:59 Nasal Cannula 3.0 32 02/19/19 06:11 117/56 02/19/19 04:00 98.1 93 18 117/56 (76) 96 02/19/19 00:54 121/60 02/19/19 00:00 98.1 60 17 121/60 (80) 98 02/18/19 23:30 88 18 98 3.0 32 02/18/19 21:00 Nasal Cannula 3.0 02/18/19 20:04 Nasal Cannula 3.0 32 02/18/19 20:04 96 Nasal Cannula 3.0 32 02/18/19 20:00 98.8 90 19 122/65 (84) 95 02/18/19 17:29 121/67 02/18/19 16:00 98.0 82 17 121/67 (85) 95 Intake and Output 02/18/19 02/19/19 19:00 07:00 Intake Total 900 ml 180 ml Output Total 450 ml 600 ml Balance 450 ml -420 ml Intake Oral 180 ml Other 900 ml Output Urine Total 450 ml 600 ml General Appearance: WD/WN HEENT: normocephalic, atraumatic Respiratory/Chest: lungs clear, normal breath sounds Breasts: no masses Cardiovascular: normal peripheral pulses Abdomen: normal bowel sounds, soft, non tender Genitourinary: normal external genitalia Extremities: no cyanosis Skin: no rash Microbiology Date/Time Source Procedure Growth Status 02/18/19 20:00 Stool Clostridium difficile Toxin Assay - Final Complete Laboratory Tests 02/19/19 06:30: White Blood Count 11.2H, Red Blood Count 3.15L, Hemoglobin 9.2L, Hematocrit 28.9L, Mean Corpuscular Volume 92, Mean Corpuscular Hemoglobin 29.3, Mean Corpuscular Hemoglobin Concent 31.9L, Red Cell Distribution Width 17.4H, Platelet Count 412, Mean Platelet Volume 8.0, Neutrophils (%) (Auto) 80.3H, Lymphocytes (%) (Auto) 9.8L, Monocytes (%) (Auto) 6.7, Eosinophils (%) (Auto) 2.5, Basophils (%) (Auto) 0.7, Sodium Level 143, Potassium Level 3.9, Chloride Level 106, Carbon Dioxide Level 30, Anion Gap 7, Blood Urea Nitrogen 27H, Creatinine 3.4H, Estimat Glomerular Filtration Rate 16.4, Glucose Level 133H, Calcium Level 7.6L, Phosphorus Level 3.5, Magnesium Level 1.8, Total Bilirubin 0.3, Aspartate Amino Transf (AST/SGOT) 13L, Alanine Aminotransferase (ALT/SGPT) 19, Alkaline Phosphatase 84, C-Reactive Protein, Quantitative 1.3H, Total Protein 5.9L, Albumin 2.0L, Globulin 3.9, Albumin/Globulin Ratio 0.5L Current Medications Medications (Trade) Dose Ordered Sig/Althea Route PRN Reason Start Time Stop Time Status Last Admin Dose Admin Acetaminophen (Tylenol) 650 mg Q4H PRN ORAL T>100.5 02/15/19 20:15 03/08/19 04:02 Aspirin (ASA) 81 mg DAILY NG 02/16/19 09:00 03/12/19 08:59 02/19/19 08:23 Dextrose (Dextrose 50%) 25 ml Q30M PRN IV Hypoglycemia 02/15/19 19:00 03/08/19 10:29 Dextrose (Dextrose 50%) 50 ml Q30M PRN IV Hypoglycemia 02/15/19 19:00 03/08/19 10:29 Epoetin Romeo (Epoetin Romeo(ESRD on dialysis)) 10,000 unit SUN-SUN-SUN SUBQ 02/17/19 21:00 03/14/19 20:59 02/17/19 21:17 Lactobacillus Acidophilus (Culturelle) 1 tab THREE TIMES A DAY ORAL 02/16/19 09:00 03/17/19 08:59 02/19/19 08:25 Nitroglycerin (Nitro-Bid) 2 inch Q6HR TOPIC 02/16/19 00:00 03/10/19 17:59 02/19/19 11:06 Nitroglycerin (Ntg) 0.4 mg Q5M X 3 DOSES PRN SL Prn Chest Pain 02/15/19 19:00 03/08/19 10:29 Ondansetron HCl (Zofran) 4 mg Q6H PRN IVP Nausea & Vomiting 02/15/19 22:15 03/08/19 04:02 Pantoprazole (Protonix) 40 mg Q12HR ORAL 02/15/19 21:00 03/16/19 20:59 02/19/19 08:22 Polyethylene Glycol (Miralax) 17 gm HSPRN PRN ORAL Constipation 02/15/19 21:00 03/08/19 20:59 Temazepam (Restoril) 15 mg HSPRN PRN ORAL Insomnia 02/15/19 21:00 02/22/19 20:59 02/18/19 20:31 Vancomycin HCl (Firvanq) 125 mg FOUR TIMES A DAY NG 02/15/19 21:00 02/25/19 23:59 02/19/19 08:23 Lit Cerna MD Feb 19, 2019 13:00
[2019-02-19] MEDS ORDERED: Premarin Inj IV SCH (14:30)
--- NOTE | 2019-02-19 14:50 | Nephrology Progress Note ---
Assessment/Plan Problem List: (1) Upper GI bleeding (2) Hemorrhagic shock (3) ESRF (end stage renal failure) (4) NSTEMI (non-ST elevated myocardial infarction) (5) Respiratory failure, acute (6) Lung mass (7) C. difficile colitis Assessment admitted with massive GI bleed and hypotension ESRD : M W Fr h/o UTI now , on vent, respitatory failure Other medical conditions; Type 2 diabetes. Hypertension. h/o Anemia of chronic renal disease Hypercholesterolemia. Peripheral vascular disease. Alzheimer's dementia. ?? LUNG Pathology PAST SURGICAL HISTORY: 1. Right xhnzi-xhi-yhak amputation. 2. Open reduction internal fixation Plan Plan: started PO start EPO change protonix to po DC IV fluid HD next 02/20 monitor H&H monitor troponin I monitor lytes and renal parameters antibiotics for uti start NTG Paste lactobacillus and po Vanco for C dif ? DC planning Subjective ROS Limited/Unobtainable: No Constitutional: Reports: malaise Objective Objective Last 24 Hour Vital Signs Date Time Temp Pulse Resp B/P (MAP) Pulse Ox O2 Delivery O2 Flow Rate FiO2 02/19/19 12:00 97.7 20 108/58 (75) 98 02/19/19 11:06 117/70 02/19/19 08:30 Nasal Cannula 3.0 02/19/19 08:00 97.5 19 113/69 (84) 97 02/19/19 07:59 97 Nasal Cannula 3.0 32 02/19/19 07:59 Nasal Cannula 3.0 32 02/19/19 06:11 117/56 02/19/19 04:00 98.1 93 18 117/56 (76) 96 02/19/19 00:54 121/60 02/19/19 00:00 98.1 60 17 121/60 (80) 98 02/18/19 23:30 88 18 98 3.0 32 02/18/19 21:00 Nasal Cannula 3.0 02/18/19 20:04 Nasal Cannula 3.0 32 02/18/19 20:04 96 Nasal Cannula 3.0 32 02/18/19 20:00 98.8 90 19 122/65 (84) 95 02/18/19 17:29 121/67 02/18/19 16:00 98.0 82 17 121/67 (85) 95 Intake and Output 02/18/19 02/19/19 19:00 07:00 Intake Total 900 ml 180 ml Output Total 450 ml 600 ml Balance 450 ml -420 ml Intake Oral 180 ml Other 900 ml Output Urine Total 450 ml 600 ml Laboratory Tests 02/19/19 06:30: White Blood Count 11.2H, Red Blood Count 3.15L, Hemoglobin 9.2L, Hematocrit 28.9L, Mean Corpuscular Volume 92, Mean Corpuscular Hemoglobin 29.3, Mean Corpuscular Hemoglobin Concent 31.9L, Red Cell Distribution Width 17.4H, Platelet Count 412, Mean Platelet Volume 8.0, Neutrophils (%) (Auto) 80.3H, Lymphocytes (%) (Auto) 9.8L, Monocytes (%) (Auto) 6.7, Eosinophils (%) (Auto) 2.5, Basophils (%) (Auto) 0.7, Sodium Level 143, Potassium Level 3.9, Chloride Level 106, Carbon Dioxide Level 30, Anion Gap 7, Blood Urea Nitrogen 27H, Creatinine 3.4H, Estimat Glomerular Filtration Rate 16.4, Glucose Level 133H, Calcium Level 7.6L, Phosphorus Level 3.5, Magnesium Level 1.8, Total Bilirubin 0.3, Aspartate Amino Transf (AST/SGOT) 13L, Alanine Aminotransferase (ALT/SGPT) 19, Alkaline Phosphatase 84, C-Reactive Protein, Quantitative 1.3H, Total Protein 5.9L, Albumin 2.0L, Globulin 3.9, Albumin/Globulin Ratio 0.5L Height (Feet): 5 Height (Inches): 6.00 Weight (Pounds): 160 General Appearance: no apparent distress Cardiovascular: normal rate Respiratory/Chest: lungs clear Abdomen: soft Objective no change Marques Motta MD Feb 19, 2019 14:50
--- NOTE | 2019-02-19 15:49 | NUR ---
gave report to [facility] at [facility]
--- NOTE | 2019-02-19 16:01 | NUR ---
GAVE REPORT TO RUBEN BENITEZ INFORMED HER TO FOLLOW UP WITH HEMODIALYSIS NEXT SCHEDULED TIME...
--- NOTE | 2019-02-19 17:42 | NUR ---
awaiting on ambulances
--- NOTE | 2019-02-19 18:13 | NUR ---
ambulance arrived gave report d/c'd hep lock and dressed.. sent copie of to [facility] regarding isolation status noted
--- NOTE | 2019-02-19 18:32 | NUR ---
RECHECKED BLOOD PRESSURE 89/56 HR 89,RR 17 SATS 99% ON 2L N/C INFORMED Jennifer ZARAGOZA. HE ALSO AWARE OF PATIENT VAGINAL BLEEDING AWAITING MONORAIL OPERATOR BACK
--- NOTE | 2019-02-19 18:36 | NUR ---
[facility] REFUSED TO TAKE THE PATIENT DUE TO DECREASED BLOOD PRESSURE CHARGE NURSE AWARE
--- NOTE | 2019-02-19 19:00 | NUR ---
NURSE NOTES: Called [facility] and informed Pt had not been discharged and explained the order for dialysis for tomorrow 02/20/19.
--- NOTE | 2019-02-19 19:48 | NUR ---
NURSE NOTES: Received patient awake,follows simple command,resting in bed,comfortable.
[2019-02-19] MEDS: Epoetin Alfa(ESRD on dialysis)10,000 unit/ml vial SUBQ SCH (21:05)
--- NOTE | 2019-02-19 23:14 | NUR ---
RESPIRATORY NOTE: Pt refuses to use BiPAP for nightly use. Pt currently on 3L NC. Pt alert/awake, follows commands. B/S chad. clear/diminished, nonproductive cough. Pt denies SOB/Chest pain at this time. BiPAP on standby at bedside. No red outlet rooms are available at this time in case the pt needed to be on BiPAP. Charge nurse Deanna, made aware. Bedside RN, Amy aware as well. Pt resting comfortably, in no apparent distress. Will continue plan of care.
[2019-02-20 03:55] VITALS: BP 118/57
[2019-02-20] MEDS: Nitroglycerin 2% oint pkt TOPIC SCH ×2 (06:00→12:00)
--- NOTE | 2019-02-20 07:19 | NUR ---
HAND-OFF: Report given to MAYO Jamison/MAYO Smith.
--- NOTE | 2019-02-20 07:19 | NUR ---
NURSE NOTES: RN received pt in stable condition sleeping in bed. No acute distress or SOB. Bed in low, locked position, call light within reach. Will continue to monitor.
[2019-02-20 07:38] LABS: BASOPHILS % (AUTO) 0.6 % (0.0-2.0); EOSINOPHILS % (AUTO) 2.9 % (0.0-3.0); HEMATOCRIT 29.3 % (37.0-47.0); HEMOGLOBIN 9.4 G/DL (12.0-16.0); MEAN CORPUSCULAR VOLUME 91 FL (80-99); MONOCYTES % (AUTO) 6.2 % (1.0-10.0); NEUTROPHILS % (AUTO) 78.4 % (45.0-75.0); PLATELET COUNT 423 K/UL (150-450); RED BLOOD COUNT 3.21 M/UL (4.20-5.40); RED CELL DISTRIBUTION WIDTH 17.4 % (11.6-14.8); WHITE BLOOD COUNT 10.2 K/UL (4.8-10.8)
[2019-02-20 07:40] LABS: ANION GAP 8 mmol/L (5-15); BLOOD UREA NITROGEN 28 mg/dL (7-18); CALCIUM 7.7 MG/DL (8.5-10.1); CARBON DIOXIDE 29 MMOL/L (21-32); CHLORIDE 103 MMOL/L (98-107); CREATININE 3.6 MG/DL (0.55-1.30); POTASSIUM 3.9 MMOL/L (3.5-5.1); SODIUM 140 MMOL/L (136-145)
[2019-02-20 08:00] VITALS: BP 102/60
--- NOTE | 2019-02-20 08:04 | NUR ---
NURSE NOTES: Received report from Sarah HUBER, patient is up in bed, no distress noted, bed is locked and in lowest position, call light within reach, will continue to monitor with aSrah HUBER. Addendum: 02/20/19 at 0805 by AMELIA CONSTANTINO RN patient receiving dialysis currently.
[2019-02-20] MEDS: Vancomycin oral 125mg/2.5ml NG SCH (09:00)
[2019-02-20] MEDS: Lactobacillus-GG tablet ORAL SCH (09:00)
[2019-02-20] MEDS: Aspirin Baby 81mg NG SCH (09:00)
--- NOTE | 2019-02-20 11:03 | Infectious Diseases Prog Note ---
Assessment/Plan Assessment/Plan Abx: Zosyn 02/07- Assessment: Hypotension , SP- 2ry to massive GIB Leukocytosis, improving- in the setting of above and aspiration PNA and Cdiff -02/13 CXR: Extensive airspace disease probably due to CHF with some interval improvement. -02/12 CXR: Extensive airspace opacities present bilaterally without change -CXR: Interval worsening bilateral airspace opacities, more consolidated in the right upper lobe Query small right pleural effusion. -sp cx normal resp annabelle Cdiff colitis -Cdiff toxin A/b EIA + Fever, SP Acute respiratory failure s/p intubation 02/06 (for airway protection), s/p extubated 02/07; now no VM CONS bacteremia; likely contaminant -02/05 Bcx / CONS; 02/10 Bcx NTD hx of ESBL UTI ESRD on HD GERD Dm2 CVA w/ R side weakness HTN HLD PVD s/p AKA Alzheimer dementia lung mass multiple gastric polyps s/p polypectomy gastric antral vascular ectasis DVT SD resident Plan: -Cont PO Vancomycin 125mg qid #/ ( End date 02/28/19) -02/13 SP Ceftriaxone #2 -02/12 SP Zosyn #6 -Monitor CBC/CMP, temperatures -aspiration precautions Will continue to follow along with you. Subjective Allergies: Coded Allergies: No Known Allergies (Unverified , 09/15/16) Subjective Afebrile Leukocytosis resolved Objective Vital Signs Last 24 Hour Vital Signs Date Time Temp Pulse Resp B/P (MAP) Pulse Ox O2 Delivery O2 Flow Rate FiO2 02/20/19 08:00 97.6 83 20 102/60 (74) 98 02/20/19 07:54 98 18 Nasal Cannula 2.0 28 02/20/19 07:54 Nasal Cannula 2.0 28 02/20/19 07:54 98 Nasal Cannula 2.0 28 02/20/19 06:00 118/57 02/20/19 03:55 97.4 95 20 118/57 (77) 100 02/19/19 23:52 118/60 02/19/19 23:46 97.8 101 20 118/60 (79) 98 02/19/19 20:16 Nasal Cannula 3.0 02/19/19 20:12 97.6 97 20 133/66 (88) 99 02/19/19 20:00 90 18 Nasal Cannula 3.0 32 02/19/19 20:00 Nasal Cannula 3.0 32 02/19/19 20:00 95 Nasal Cannula 3.0 32 02/19/19 17:12 126/69 02/19/19 16:00 98.2 18 126/69 (88) 96 02/19/19 12:00 97.7 20 108/58 (75) 98 02/19/19 11:06 117/70 Height (Feet): 5 Height (Inches): 6.00 Weight (Pounds): 164 Objective GENERAL: NAD, On NC LUNGS: Course B/L, No W CARDIAC: Regular rhythm. Tachycardic. ABDOMEN: Soft and nontender. Positive bowel sounds. EXTREMITIES: Right above-knee amputation Microbiology Date/Time Source Procedure Growth Status 02/18/19 20:00 Stool Clostridium difficile Toxin Assay - Final Complete Laboratory Tests Test 02/20/19 06:54 White Blood Count 10.2 K/UL (4.8-10.8) Red Blood Count 3.21 M/UL (4.20-5.40) L Hemoglobin 9.4 G/DL (12.0-16.0) L Hematocrit 29.3 % (37.0-47.0) L Mean Corpuscular Volume 91 FL (80-99) Mean Corpuscular Hemoglobin 29.4 PG (27.0-31.0) Mean Corpuscular Hemoglobin Concent 32.1 G/DL (32.0-36.0) Red Cell Distribution Width 17.4 % (11.6-14.8) H Platelet Count 423 K/UL (150-450) Mean Platelet Volume 8.7 FL (6.5-10.1) Neutrophils (%) (Auto) 78.4 % (45.0-75.0) H Lymphocytes (%) (Auto) 12.0 % (20.0-45.0) L Monocytes (%) (Auto) 6.2 % (1.0-10.0) Eosinophils (%) (Auto) 2.9 % (0.0-3.0) Basophils (%) (Auto) 0.6 % (0.0-2.0) Sodium Level 140 MMOL/L (136-145) Potassium Level 3.9 MMOL/L (3.5-5.1) Chloride Level 103 MMOL/L (98-107) Carbon Dioxide Level 29 MMOL/L (21-32) Anion Gap 8 mmol/L (5-15) Blood Urea Nitrogen 28 mg/dL (7-18) H Creatinine 3.6 MG/DL (0.55-1.30) H Estimat Glomerular Filtration Rate 15.3 mL/min (>60) Glucose Level 123 MG/DL (74-106) H Calcium Level 7.7 MG/DL (8.5-10.1) L Current Medications Medications (Trade) Dose Ordered Sig/Althea Route PRN Reason Start Time Stop Time Status Last Admin Dose Admin Acetaminophen (Tylenol) 650 mg Q4H PRN ORAL T>100.5 02/15/19 20:15 03/08/19 04:02 Aspirin (ASA) 81 mg DAILY NG 02/16/19 09:00 03/12/19 08:59 02/19/19 08:23 Dextrose (Dextrose 50%) 25 ml Q30M PRN IV Hypoglycemia 02/15/19 19:00 03/08/19 10:29 Dextrose (Dextrose 50%) 50 ml Q30M PRN IV Hypoglycemia 02/15/19 19:00 03/08/19 10:29 Epoetin Romeo (Epoetin Romeo(ESRD on dialysis)) 10,000 unit SUN-SUN-SUN SUBQ 02/17/19 21:00 03/14/19 20:59 02/19/19 21:05 Lactobacillus Acidophilus (Culturelle) 1 tab THREE TIMES A DAY ORAL 02/16/19 09:00 03/17/19 08:59 02/19/19 17:12 Nitroglycerin (Nitro-Bid) 2 inch Q6HR TOPIC 02/16/19 00:00 03/10/19 17:59 02/19/19 23:52 Nitroglycerin (Ntg) 0.4 mg Q5M X 3 DOSES PRN SL Prn Chest Pain 02/15/19 19:00 03/08/19 10:29 Ondansetron HCl (Zofran) 4 mg Q6H PRN IVP Nausea & Vomiting 02/15/19 22:15 03/08/19 04:02 Pantoprazole (Protonix) 40 mg Q12HR ORAL 02/15/19 21:00 03/16/19 20:59 02/19/19 21:05 Polyethylene Glycol (Miralax) 17 gm HSPRN PRN ORAL Constipation 02/15/19 21:00 03/08/19 20:59 Temazepam (Restoril) 15 mg HSPRN PRN ORAL Insomnia 02/15/19 21:00 02/22/19 20:59 02/18/19 20:31 Vancomycin HCl (Firvanq) 125 mg FOUR TIMES A DAY NG 02/15/19 21:00 02/25/19 23:59 02/19/19 21:05 Alexey Peña MD Feb 20, 2019 11:03
--- NOTE | 2019-02-20 11:27 | GI Progress Note ---
Assessment/Plan Problems: (1) Upper GI bleeding ICD Codes: K92.2 - Gastrointestinal hemorrhage, unspecified SNOMED: 79526053 (2) Hemorrhagic shock ICD Codes: R57.8 - Hemorrhagic shock SNOMED: 961420 (3) Anemia ICD Codes: D64.9 - Anemia, unspecified SNOMED: 544310273 Status: stable Status Narrative Discussed with Dr. Herrera Assessment/Plan s/p EGD SUMMARY OF FINDINGS: Most probably bleeding from the polypectomy site status post epinephrine injection, hemoclip placement, and epinephrine washed. stable H&H cdiff positive Patient on renal diet Push p.o. ASA dc ppi, add H2B due to C. difficile abx per ID monitor H&H, prn transfusion follow labs dc planning The patient was seen and examined at bedside and all new and available data was reviewed in the patients chart. I agree with the above findings, impression and plan. (Patient seen earlier today. Signature stamp does not reflect patient encounter time.). - Fabrizio Herrera MD Subjective Subjective Limited Complaint of mild abdominal pain Denies any diarrhea Objective Last 24 Hour Vital Signs Date Time Temp Pulse Resp B/P (MAP) Pulse Ox O2 Delivery O2 Flow Rate FiO2 02/20/19 09:00 Nasal Cannula 3.0 02/20/19 08:00 97.6 83 20 102/60 (74) 98 02/20/19 07:54 98 18 Nasal Cannula 2.0 28 02/20/19 07:54 Nasal Cannula 2.0 28 02/20/19 07:54 98 Nasal Cannula 2.0 28 02/20/19 06:00 118/57 02/20/19 03:55 97.4 95 20 118/57 (77) 100 02/19/19 23:52 118/60 02/19/19 23:46 97.8 101 20 118/60 (79) 98 02/19/19 20:16 Nasal Cannula 3.0 02/19/19 20:12 97.6 97 20 133/66 (88) 99 02/19/19 20:00 90 18 Nasal Cannula 3.0 32 02/19/19 20:00 Nasal Cannula 3.0 32 02/19/19 20:00 95 Nasal Cannula 3.0 32 02/19/19 17:12 126/69 02/19/19 16:00 98.2 18 126/69 (88) 96 4/3/19 12:00 97.7 20 108/58 (75) 98 Intake and Output 02/19/19 02/20/19 19:00 07:00 Intake Total 1020 ml 120 ml Output Total 400 ml Balance 620 ml 120 ml Intake Oral 1020 ml 120 ml Output Urine Total 400 ml # Voids 2 Laboratory Tests Test 02/20/19 06:54 White Blood Count 10.2 K/UL (4.8-10.8) Red Blood Count 3.21 M/UL (4.20-5.40) L Hemoglobin 9.4 G/DL (12.0-16.0) L Hematocrit 29.3 % (37.0-47.0) L Mean Corpuscular Volume 91 FL (80-99) Mean Corpuscular Hemoglobin 29.4 PG (27.0-31.0) Mean Corpuscular Hemoglobin Concent 32.1 G/DL (32.0-36.0) Red Cell Distribution Width 17.4 % (11.6-14.8) H Platelet Count 423 K/UL (150-450) Mean Platelet Volume 8.7 FL (6.5-10.1) Neutrophils (%) (Auto) 78.4 % (45.0-75.0) H Lymphocytes (%) (Auto) 12.0 % (20.0-45.0) L Monocytes (%) (Auto) 6.2 % (1.0-10.0) Eosinophils (%) (Auto) 2.9 % (0.0-3.0) Basophils (%) (Auto) 0.6 % (0.0-2.0) Sodium Level 140 MMOL/L (136-145) Potassium Level 3.9 MMOL/L (3.5-5.1) Chloride Level 103 MMOL/L (98-107) Carbon Dioxide Level 29 MMOL/L (21-32) Anion Gap 8 mmol/L (5-15) Blood Urea Nitrogen 28 mg/dL (7-18) H Creatinine 3.6 MG/DL (0.55-1.30) H Estimat Glomerular Filtration Rate 15.3 mL/min (>60) Glucose Level 123 MG/DL (74-106) H Calcium Level 7.7 MG/DL (8.5-10.1) L Height (Feet): 5 Height (Inches): 6.00 Weight (Pounds): 164 General Appearance: WD/WN, no apparent distress, alert Cardiovascular: normal rate Respiratory/Chest: normal breath sounds, no respiratory distress Abdominal Exam: normal bowel sounds, non tender, soft Extremities: normal range of motion, non-tender Rachel Simpson NP Feb 20, 2019 11:27
[2019-02-20 12:00] VITALS: BP 111/60
--- NOTE | 2019-02-20 12:07 | NUR ---
NURSE NOTES: RN gave report to MAYO Escobar at [facility]. RN informed that pt was admitted for gastro bleed and ESRD, being transferred in stable condition with discharge packet. Pt received dialysis this am; 1500 ml output. Vital signs WNL, pt in isolation for C-DIFF, no diarrhea, continue Vancomycin PO, renal diet.
[2019-02-20] MEDS ORDERED: NS 275ml ONE (13:29)
--- NOTE | 2019-02-20 13:35 | NUR ---
NURSE NOTES: Transport arrived, RN gave verbal report, VSS, belongings list reviewed and no discrepancies noted, patient wearing necklace and glasses, reported to transport, ID band removed, No IV access, patient transported via ambulance personell, family notified.
--- NOTE | 2019-02-20 15:44 | Nephrology Progress Note ---
Assessment/Plan Problem List: (1) Upper GI bleeding (2) Hemorrhagic shock (3) ESRF (end stage renal failure) (4) NSTEMI (non-ST elevated myocardial infarction) (5) Respiratory failure, acute (6) Lung mass (7) C. difficile colitis Assessment admitted with massive GI bleed and hypotension ESRD : M W Fr h/o UTI now , on vent, respitatory failure Other medical conditions; Type 2 diabetes. Hypertension. h/o Anemia of chronic renal disease Hypercholesterolemia. Peripheral vascular disease. Alzheimer's dementia. ?? LUNG Pathology PAST SURGICAL HISTORY: 1. Right [id number] amputation. 2. Open reduction internal fixation Plan Plan: started PO start EPO change protonix to po DC IV fluid HD next 02/20- seen during HD tolerating well. monitor H&H monitor troponin I monitor lytes and renal parameters antibiotics for uti start NTG Paste lactobacillus and po Vanco for C dif ? DC planning Subjective ROS Limited/Unobtainable: No Interval Events/Complaints seen at 10 am Objective Objective Last 24 Hour Vital Signs Date Time Temp Pulse Resp B/P (MAP) Pulse Ox O2 Delivery O2 Flow Rate FiO2 02/20/19 12:00 97.8 83 20 111/60 (77) 98 02/20/19 12:00 111/60 02/20/19 09:00 Nasal Cannula 3.0 02/20/19 09:00 Nasal Cannula 3.0 02/20/19 08:00 97.6 83 20 102/60 (74) 98 02/20/19 07:54 98 18 Nasal Cannula 2.0 28 02/20/19 07:54 Nasal Cannula 2.0 28 02/20/19 07:54 98 Nasal Cannula 2.0 28 02/20/19 06:00 118/57 02/20/19 03:55 97.4 95 20 118/57 (77) 100 02/19/19 23:52 118/60 02/19/19 23:46 97.8 101 20 118/60 (79) 98 02/19/19 20:16 Nasal Cannula 3.0 02/19/19 20:12 97.6 97 20 133/66 (88) 99 02/19/19 20:00 90 18 Nasal Cannula 3.0 32 02/19/19 20:00 Nasal Cannula 3.0 32 02/19/19 20:00 95 Nasal Cannula 3.0 32 02/19/19 17:12 126/69 02/19/19 16:00 98.2 18 126/69 (88) 96 Intake and Output 02/19/19 02/20/19 19:00 07:00 Intake Total 1020 ml 120 ml Output Total 400 ml Balance 620 ml 120 ml Intake Oral 1020 ml 120 ml Output Urine Total 400 ml # Voids 2 Laboratory Tests 02/20/19 06:54: White Blood Count 10.2, Red Blood Count 3.21L, Hemoglobin 9.4L, Hematocrit 29.3L , Mean Corpuscular Volume 91, Mean Corpuscular Hemoglobin 29.4, Mean Corpuscular Hemoglobin Concent 32.1, Red Cell Distribution Width 17.4H, Platelet Count 423, Mean Platelet Volume 8.7, Neutrophils (%) (Auto) 78.4H, Lymphocytes (%) (Auto) 12.0L, Monocytes (%) (Auto) 6.2, Eosinophils (%) (Auto) 2.9, Basophils (%) (Auto) 0.6, Sodium Level 140, Potassium Level 3.9, Chloride Level 103, Carbon Dioxide Level 29, Anion Gap 8, Blood Urea Nitrogen 28H, Creatinine 3.6H, Estimat Glomerular Filtration Rate 15.3, Glucose Level 123H, Calcium Level 7.7L Height (Feet): 5 Height (Inches): 6.00 Weight (Pounds): 164 General Appearance: no apparent distress Objective no change Marques Motta MD Feb 20, 2019 15:44
--- NOTE | 2019-02-21 12:43 | Discharge Summary ---
Discharge Summary Discharge Summary _ DATE OF ADMISSION: 02/06/2019 DATE OF DISCHARGE: 02/20/2019 DISCHARGED BY: Dr. Lit Cerna CONSULTANTS: Dr. Aung Franco BRIEF HOSPITAL COURSE: Patient is a 68-year-old female, with history of end-stage renal failure on hemodialysis, right AKA, diabetes mellitus, [facility] resident, who was discharged 02/05/2019, was brought back to ED after an episode of lower GI bleed and coffee-ground emesis at the [facility]. On evaluation at ED, patient was hypotensive and tachycardic. She was given IV fluids. Blood work showed hemoglobin of 6, hematocrit 19. BUN 67, creatinine 4.3. Potassium 5.1. She was typed and crossed. She was started on Protonix drip. She was then admitted to ICU for GI bleed, anemia, hypotension and renal failure. GI was consulted. On the day of admission, she underwent emergent endoscopy. Procedure was difficult and limited due to stomach full of blood and blood clots. Procedure was stopped after the scope was placed in the esophagus, because patient vomited massive amounts of blood and patient had to be intubated to protect the airway. Postintubation, she then underwent examination. There were lots of blood clot in the stomach especially in the fundus of the stomach. Bleeding was most probably from polypectomy site that was cauterized during endoscopy the day prior. Bleeding was controlled with epinephrine injection and Hemoclip placement. She was kept n.p.o. and was then transferred back to ICU. She was given blood transfusion. Following day post EGD and hemostasis, H&H was stable. She was continued on Protonix drip. She was eventually extubated. She was continued on BiPAP support. There was a rise in troponin levels. Troponin on 02/05/2019 was 0.03. Subsequently on 02/08/2019 went up to 2.7, then 5.8. Horse Riding Coach Or Instructor was consulted. EKG on 02/05/2019 showed conduction delay and T wave inversion in leads II, 3, aVF as well as V4, V5 and V6. In comparison with previous EKG on 01/03/2019, the inferior waves and lateral wave T wave abnormalities are new. Q waves in lead III was new. Echocardiogram was ordered. Cardiac enzymes were monitored. She was followed clinically although patient did not appear to have any symptoms of coronary syndrome. She was treated medically. H&H was stable. She was eventually started on aspirin. Continued on Protonix twice daily. Echocardiogram done showed EF of 50%. She had moderate pulmonary hypertension. Venous duplex of lower extremity was negative for acute DVT. She was given Epogen. She was continued on inpatient hemodialysis. She was eventually started on NGT feeding. Patient had leukocytosis and blood culture was growing coagulase-negative staph. ID was consulted patient was continued empirically on Zosyn. Troponin levels down trended. Repeat chest x-ray showed interval worsening of bilateral airspace opacities. Repeat blood culture did not isolate any growth. C. difficile was positive. She was given p.o. vancomycin. Proton pump was discontinued. She was placed on H2 myrtle. She was eventually taken off BiPAP and was downgraded to Ventimask. She initially failed swallow evaluation. Repeat evaluation was done. She was able to start on renal diet. Leukocytosis resolved. She was saturating well on nasal cannula. H&H stable. Repeat stool studies for C. difficile was negative. Rectal tube was discontinued. Yanez removed. Patient was discharged back to [facility]. FINAL DIAGNOSES: Hemorrhagic shock due to Upper GI bleed Anemia required multiple blood transfusion Acute respiratory failure, status post intubation on 02/06/2019, status post extubation on 02/07/2019 and prolonged BiPAP support Leukocytosis in the setting of GI bleed, aspiration pneumonia and C. difficile C. difficile colitis Coagulase-negative staph bacteremia likely contaminant NSTEMI, type II Anemia of chronic renal disease Hypercholesterolemia Alzheimer's dementia Type 2 diabetes Hypertension Questionable lung pathology GERD End-stage renal failure on hemodialysis Peripheral vascular disease status post right AKA DISPOSITION: Patient was discharged to a SNF. DISCHARGE MEDICATIONS: Refer to Discharge Medication List. I have been assigned to complete a discharge summary on this account, I was not involved with the patient's management. Melissa Rogers NP Feb 21, 2019 12:43
== END 2019-02-20 13:30 | DRG 919 ==
LOC: EDBD 22:48 → EMR 23:18 → EDBEDREQ 02-06 01:53 → 2W 02-06 02:20 → EDBEDREQSVC 02-06 03:53 → EDBEDREQ 02-06 03:53 → ICU 02-06 06:20 → 2W 02-13 06:44 → 2E 02-14 04:01 → 4E 02-15 19:04
PROC: 0W3P8ZZ Control Bleeding in Gastrointestinal Tract, Via Natural or Artificial Opening Endoscopic (ICD-10-PCS; principal; 2019-02-06 12:56)
PROC: 5A1945Z Respiratory Ventilation, 24-96 Consecutive Hours (ICD-10-PCS; principal; 2019-02-06 12:56)
PROC: 0BH17EZ Insertion of Endotracheal Airway into Trachea, Via Natural or Artificial Opening (ICD-10-PCS; principal; 2019-02-06 12:56)
PROC: 5A1D70Z Performance of Urinary Filtration, Intermittent, Less than 6 Hours Per Day (ICD-10-PCS; 2019-02-09)
DX: K91.840 Postprocedural hemorrhage of a digestive system organ or structure following a digestive system procedure (principal); N18.6 End stage renal disease; R57.8 Other shock; I21.4 Non-ST elevation (NSTEMI) myocardial infarction; J18.9 Pneumonia, unspecified organism; J96.00 Acute respiratory failure, unspecified whether with hypoxia or hypercapnia; I12.0 Hypertensive chronic kidney disease with stage 5 chronic kidney disease or end stage renal disease; I69.951 Hemiplegia and hemiparesis following unspecified cerebrovascular disease affecting right dominant side; A04.72 Enterocolitis due to Clostridium difficile, not specified as recurrent; Z99.2 Dependence on renal dialysis; Z89.611 Acquired absence of right leg above knee; E11.22 Type 2 diabetes mellitus with diabetic chronic kidney disease; D63.1 Anemia in chronic kidney disease; I73.9 Peripheral vascular disease, unspecified; G30.9 Alzheimer's disease, unspecified; F02.80 Dementia in other diseases classified elsewhere, unspecified severity, without behavioral disturbance, psychotic disturbance, mood disturbance, and anxiety; E78.00 Pure hypercholesterolemia, unspecified; R00.0 Tachycardia, unspecified
CPT/HCPCS: 36415; 36600; 71045; 74018; 80048; 80053; 80202; 82150; 82803; 83690; 83735; 83880; 84100; 84484; 84550; 85007; 85025; 85044; 85610; 85730; 86140; 86850; 86900; 86901; 86920; 86927; 87040; 87070; 87081; 87181; 87205; 87324; 93005; 93306; 93970; 94002; 94003; 94150; 94660; 94664; 94760; 96374; 96376; 99291; C9399; J0171; J2370; J8499

== ENCOUNTER 2019-03-10 17:18 | Inpatient (IN) | payer MEDICARE, MEDICAID ==
[~2019-03-10] VITALS: Ht 162.6 cm; Wt 59.9 kg
[~2019-03-10 17:18] MED LIST changes: +VANCOMYCIN HCL125 MG PO; +VANCOMYCIN250 MG/5 M NG
--- NOTE | 2019-03-10 17:23 | NUR ---
ED Nurse Note: Pt BIB[facility] due to hypotension and vaginal bleeding that started 30 mins ago as per EMS. Pt also noted to be ALOC. Pt's baseline is A + O x2-3 and upon arrival to ED pt is A + O x1. Pt has a left upper arm fistula and pt received dialysis today. Pt placed in Trendelenburg position due to BP 78/49. Pt denies pain. Pt is full code. Skin warm to touch. Stage 1 noted to be on buttocks of pt.
--- NOTE | 2019-03-10 17:24 | NUR ---
ED Nurse Note: Pt noted to have right leg amputation.
[2019-03-10 17:25] VITALS: BP 78/49
--- NOTE | 2019-03-10 17:48 | NUR ---
ED Nurse Note: Xray at the bedside.
[2019-03-10 18:17] LABS: BASOPHILS % (AUTO) 0.9 % (0.0-2.0); EOSINOPHILS % (AUTO) 2.6 % (0.0-3.0); HEMATOCRIT 32.5 % (37.0-47.0); HEMOGLOBIN 10.2 G/DL (12.0-16.0); LYMPHOCYTES % (AUTO) 20.7 % (20.0-45.0); MEAN CORPUSCULAR VOLUME 91 FL (80-99); MONOCYTES % (AUTO) 9.7 % (1.0-10.0); PLATELET COUNT 289 K/UL (150-450); RED BLOOD COUNT 3.57 M/UL (4.20-5.40); RED CELL DISTRIBUTION WIDTH 16.7 % (11.6-14.8)
[2019-03-10 18:24] LABS: ANION GAP 7 mmol/L (5-15); BLOOD UREA NITROGEN 16 mg/dL (7-18); CALCIUM 7.7 MG/DL (8.5-10.1); CARBON DIOXIDE 35 MMOL/L (21-32); CHLORIDE 101 MMOL/L (98-107); CREATININE 2.4 MG/DL (0.55-1.30); POTASSIUM 2.8 MMOL/L (3.5-5.1); SODIUM 143 MMOL/L (136-145)
[2019-03-10 18:29] LABS: APPEARANCE,URINE TURBID; BILIRUBIN, URINE 2+ (NEGATIVE); GLUCOSE, URINE (UA) NEGATIVE (NEGATIVE); KETONES,URINE 2+ (NEGATIVE); LEUKOCYTE ESTERASE ,URINE 3+ (NEGATIVE); NITRITE,URINE POSITIVE (NEGATIVE); PH,URINE 6.5 (4.5-8.0); PROTEIN,URINE 4+ (NEGATIVE); UROBILINOGEN,URINE 1 MG/DL (0.0-1.0)
[2019-03-10 18:33] LABS: COLOR,URINE RED
[2019-03-10 18:37] LABS: ALANINE AMINOTRANSFERASE 22 U/L (12-78); ALBUMIN 2.5 G/DL (3.4-5.0); ALBUMIN/GLOBULIN RATIO 0.7 (1.0-2.7); ALKALINE PHOSPHATASE 151 U/L (46-116); ASPARTATE AMINO TRANSFERASE 17 U/L (15-37); BILIRUBIN,TOTAL 0.2 MG/DL (0.2-1.0); CKMB < 0.5 NG/ML (0.0-3.6); CREATINE KINASE 23 U/L (26-308)
--- NOTE | 2019-03-10 18:37 | Emergency Room Report ---
History of Present Illness General Chief Complaint: Altered Level of Consciousness Source: Patient, Medical Record, EMS Present Illness HPI This patient is brought in from a longterm facility. She has a history of end-stage renal disease and is dialysis dependent. She also has a history of type 2 diabetes and R. AKA. She also has a recent history of GI bleed. She is brought to the emergency department secondary to altered mental status according to the staff caring for her at the longterm facility. The patient herself has no specific complaints. She denies pain. She denies cough or congestion. She denies shortness of breath. There is no other history available. Allergies: Coded Allergies: No Known Allergies (Unverified , 09/15/16) Patient History Past Medical History: see triage record, old chart reviewed, DM, HTN, psych hx , renal disease, dialysis Past Surgical History: other - R. AKA Social History: Denies: smoking, alcohol use, drug use Reviewed Nursing Documentation: PMH: Agreed; PSxH: Agreed Nursing Documentation-PMH Past Medical History: No History, Except For Hx Diabetes: Yes Hx Cancer: No Hx Gastrointestinal Problems: Yes - hyperlipidemia, GERD Hx Cerebrovascular Accident: Yes Hx Dementia: Yes Hx Alzheimer's Disease: Yes Hx Paralysis: Yes Hx Dysphasia: Yes Hx Weakness: Yes Review of Systems All Other Systems: negative except mentioned in HPI Physical Exam Vital Signs Date Time Temp Pulse Resp B/P (MAP) Pulse Ox O2 Delivery O2 Flow Rate FiO2 03/10/19 17:14 96 16 80/42 98 Nasal Cannula 2.0 03/10/19 17:25 97 03/10/19 17:25 99.5 Sp02 EP Interpretation: reviewed, normal General Appearance: no apparent distress, alert, GCS 15, non-toxic, obese Head: normocephalic, atraumatic Eyes: bilateral eye normal inspection, bilateral eye PERRL ENT: hearing grossly normal, normal pharynx, no angioedema, normal voice Neck: full range of motion, supple/symm/no masses Respiratory: chest non-tender, lungs clear, normal breath sounds, no respiratory distress, no retraction, no accessory muscle use, speaking full sentences Cardiovascular #1: regular rate, rhythm, no edema Gastrointestinal: normal bowel sounds, non tender, soft, non-distended, no guarding, no rebound Rectal: deferred Musculoskeletal: non-tender, other - contracted. R. AKA Neurologic: alert, responsive, speech normal, grossly normal Psychiatric: mood/affect normal, no suicidal/homicidal ideation Skin: warm/dry, well hydrated, other - See RN skin exam Medical Decision Making Diagnostic Impression: Primary Impression: Altered mental status, unspecified Additional Impressions: UTI (urinary tract infection) Anemia Hypokalemia ER Course This patient presented for altered mental status. The patient was alert and cooperative in the emergency department. She was found to have a urinary tract infection, anemia and hypokalemia. She is given a small dose of potassium chloride IV. The potassium was corrected gently secondary to the patient's known end-stage renal disease and dialysis dependence. She is also found to have a urinary tract infection. She is slightly hypotensive but I suspect that was secondary to dialysis. She was given a gentle normal saline bolus. She is admitted for further evaluation and treatment. Laboratory Tests Test 03/10/19 17:45 White Blood Count 7.0 K/UL (4.8-10.8) Red Blood Count 3.57 M/UL (4.20-5.40) L Hemoglobin 10.2 G/DL (12.0-16.0) L Hematocrit 32.5 % (37.0-47.0) L Mean Corpuscular Volume 91 FL (80-99) Mean Corpuscular Hemoglobin 28.5 PG (27.0-31.0) Mean Corpuscular Hemoglobin Concent 31.3 G/DL (32.0-36.0) L Red Cell Distribution Width 16.7 % (11.6-14.8) H Platelet Count 289 K/UL (150-450) Mean Platelet Volume 9.5 FL (6.5-10.1) Neutrophils (%) (Auto) 66.0 % (45.0-75.0) Lymphocytes (%) (Auto) 20.7 % (20.0-45.0) Monocytes (%) (Auto) 9.7 % (1.0-10.0) Eosinophils (%) (Auto) 2.6 % (0.0-3.0) Basophils (%) (Auto) 0.9 % (0.0-2.0) Prothrombin Time 10.5 SEC (9.30-11.50) Prothrombin Time INR 1.0 (0.9-1.1) PTT 30 SEC (23-33) Urine Color Red Urine Appearance Turbid Urine pH 6.5 (4.5-8.0) Urine Specific Warden 1.015 (1.005-1.035) Urine Protein 4+ (NEGATIVE) H Urine Glucose (UA) Negative (NEGATIVE) Urine Ketones 2+ (NEGATIVE) H Urine Blood 5+ (NEGATIVE) H Urine Nitrite Positive (NEGATIVE) H Urine Bilirubin 2+ (NEGATIVE) H Urine Ictotest Negative (NEGATIVE) Urine Urobilinogen 1 MG/DL (0.0-1.0) H Urine Leukocyte Esterase 3+ (NEGATIVE) H Urine RBC Tntc /HPF (0 - 2) H Urine WBC 15-20 /HPF (0 - 2) H Urine Squamous Epithelial Cells Moderate /LPF (NONE/OCC) H Urine Bacteria Many /HPF (NONE) H Sodium Level 143 MMOL/L (136-145) Potassium Level 2.8 MMOL/L (3.5-5.1) L Chloride Level 101 MMOL/L (98-107) Carbon Dioxide Level 35 MMOL/L (21-32) H Anion Gap 7 mmol/L (5-15) Blood Urea Nitrogen 16 mg/dL (7-18) Creatinine 2.4 MG/DL (0.55-1.30) H Estimate Glomerular Filtration Rate 24.5 mL/min (>60) Glucose Level 219 MG/DL (74-106) H Lactic Acid Level 2.00 mmol/L (0.4-2.0) Calcium Level 7.7 MG/DL (8.5-10.1) L Magnesium Level 1.8 MG/DL (1.8-2.4) Total Bilirubin 0.2 MG/DL (0.2-1.0) Aspartate Amino Transferase (AST) 17 U/L (15-37) Alanine Aminotransferase (ALT) 22 U/L (12-78) Alkaline Phosphatase 151 U/L (46-116) H Total Creatine Kinase 23 U/L (26-308) L Creatine Kinase MB < 0.5 NG/ML (0.0-3.6) Creatine Kinase MB Relative Index 2.1 Troponin I 0.021 ng/mL (0.000-0.056) Total Protein 6.1 G/DL (6.4-8.2) L Albumin 2.5 G/DL (3.4-5.0) L Globulin 3.6 g/dL Albumin/Globulin Ratio 0.7 (1.0-2.7) L EKG Diagnostic Results Rate: normal Rhythm: NSR ST Segments: no acute changes Rhythm Strip Diag. Results EP Interpretation: yes Rate: 90's Rhythm: NSR, no PVC's, no ectopy Chest X-Ray Diagnostic Results Chest X-Ray Diagnostic Results : Chest X-Ray Ordered: Yes # of Views/Limited/Complete: 1 View Indication: Other EP Interpretation: Yes Interpretation: no consolidation, no effusion, no pneumothorax, no acute cardiopulmonary disease Impression: No acute disease Electronically Signed by: Lia Navarro DO Last Vital Signs Date Time Temp Pulse Resp B/P (MAP) Pulse Ox O2 Delivery O2 Flow Rate FiO2 03/10/19 17:25 99.5 97 15 78/49 97 Room Air 03/10/19 17:25 97 03/10/19 17:14 2.0 Disposition: ADMITTED INPATIENT Condition: Serious Referrals: Lit Cerna MD (PCP) Lia Navarro DO Mar 10, 2019 18:37
[2019-03-10] MEDS ORDERED: cefTRIAXone 1 GM in NS 55 ML IVPB ONE (19:00)
--- NOTE | 2019-03-10 19:04 | NUR ---
ED Nurse Note: Lactic acid reflex sent to lab.
--- NOTE | 2019-03-10 19:12 | NUR ---
HAND-OFF: Report given to MAYO Weaver.
[2019-03-10 19:15] VITALS: BP 89/57
--- NOTE | 2019-03-10 19:15 | NUR ---
ED Nurse Note: Recieved report to resume car, tp inb ed eyes open, non-verbal, on cardiac monitoring, pt has low b/p, md aware, will give ordered fluids, iv site patent in right arm, lv shunt in left arm, pt has right bka, pt repositioned and turned, will resume care and prepare for admission.
[2019-03-10 20:15] VITALS: BP 107/55
--- NOTE | 2019-03-10 21:30 | NUR ---
ED Nurse Note: Pt continues to rest in bed, becoming more awake and alert, pt speaking, re-oriented to place and time and event, pt is forgetful, asking for food and water, given oral water, tolerated well, v/s stable, all iv meds completed, site intact, tolerated well, pt repositioned and turned with pillows, pt has pressure sore on coccyx area, photos taken, will continue to closely monitor and preapre for hospital admission.
[2019-03-10 21:45] VITALS: BP 106/58
[2019-03-10] MEDS ORDERED: Morphine Sulfate 2mg/ml Inj(IV/IM USE ONLY) IVP PRN (21:45)
[2019-03-10] MEDS ORDERED: Nitroglycerin Subl 0.4mg tab SL PRN (21:45)
[2019-03-10] MEDS ORDERED: Albuterol/Ipratropium 3ml neb HHN PRN (21:45)
[2019-03-10] MEDS ORDERED: Miralax 17gm pkt ORAL PRN (21:45)
[2019-03-10] MEDS: HydrALAZINE 25mg tab ORAL SCH (22:00)
--- NOTE | 2019-03-10 22:20 | NUR ---
ED Nurse Note: REPORT CALLED TO FLOOR NURSE AMAN, VERBAL REPORT GIVEN, ALL QUESTIONS ANSWERED, PT IN BED AWAKE AND ALERT, IV SITE PATENT, AV SHUNT INTACT AND PATENT WITH POSITIVE BRUIT AND THRILL, PT REMAINS WITH ACTIVE VAGINAL BLEEDING, PT CLEANED AND DRIED, V/S STABLE, PT IS SPEAKING, DENIES PAIN, PT BEING TAKEN TO FLOOR UNIT VIA GURNEY WITH ACLS PROTOCOLS WITH ER-TECH AND RN, NAD NOTED DURING TRANSPORT.
[2019-03-10] MEDS ORDERED: Vancomycin 1.25gm Premix IVPB SCH (23:00)
[2019-03-11] VITALS: BP 112/58
--- NOTE | 2019-03-11 | NUR ---
Pt arrived on unit via lisarerika from ER. Got report from Meg HUBER from ER. Initial Assessment done. Pt in stable condition. Pt denies any pain. No s/s of distress or discomfort noted. Pt A+Ox 1-2 on initial assessment with some slurred speech. VSS. BP:112/58 HR:58 T:97.3 HR:88 R:18. Pt resting in bed comfortably. Bed in low and locked position, call light within reach, bedside table within reach. Continue to monitor.
[2019-03-11] MEDS ORDERED: Vancomycin 1 GM in D5W 275 ML IV SCH (00:30)
[2019-03-11 04:20] VITALS: BP 101/57
[2019-03-11] MEDS: HydrALAZINE 25mg tab ORAL SCH (05:37)
[2019-03-11] MEDS: NovoLOG Insulin Flexpen SUBQ SCH ×4 (06:10→20:38)
[2019-03-11 07:17] LABS: BASOPHILS % (AUTO) 1.3 % (0.0-2.0); EOSINOPHILS % (AUTO) 3.9 % (0.0-3.0); HEMATOCRIT 33.3 % (37.0-47.0); HEMOGLOBIN 10.6 G/DL (12.0-16.0); LYMPHOCYTES % (AUTO) 17.4 % (20.0-45.0); MEAN CORPUSCULAR VOLUME 90 FL (80-99); MONOCYTES % (AUTO) 12.2 % (1.0-10.0); NEUTROPHILS % (AUTO) 65.3 % (45.0-75.0); PLATELET COUNT 312 K/UL (150-450); RED BLOOD COUNT 3.71 M/UL (4.20-5.40); RED CELL DISTRIBUTION WIDTH 17.3 % (11.6-14.8); WHITE BLOOD COUNT 6.9 K/UL (4.8-10.8)
--- NOTE | 2019-03-11 07:23 | NUR ---
HAND-OFF: Report given to Rosy HUBER. Endorsed plan of care.
--- NOTE | 2019-03-11 07:25 | NUR ---
NURSE NOTES: Received report from MAYO Broderick. Patient is sitting in bed and eating his breakfast, A/O x 3. Breathing un labored in room air. IV site patent and asymptomatic. Safety precaution in place; side rails X2 up, call light and bed side table within reach, bed in lowest position, brakes engaged, call light on. Will continue the plan of care
[2019-03-11 08:00] VITALS: BP 104/63
--- NOTE | 2019-03-11 08:00 | NUR ---
CASE MANAGEMENT:REVIEW 68 YR OLD FEMALE BIBA FROM [facility] CC: ALOC. HYPOTENSION. VAGINAL BLEEDING PMH: ESRD HD MWF. ALZHEIMER SI: HYPOKALEMIA. UTI 99.4 96 16 80/42 98% ON 2L/NC K-2.8 CR+2.4 IS: IV ROCEPHIN IV KCL 500CC NS BOLUS CXR URINE CX BLOOD CX : TO TELEMETRY INTERQUAL CRITERIA MET
[2019-03-11 08:10] LABS: ALANINE AMINOTRANSFERASE 20 U/L (12-78); ALBUMIN 2.6 G/DL (3.4-5.0); ALBUMIN/GLOBULIN RATIO 0.7 (1.0-2.7); ALKALINE PHOSPHATASE 147 U/L (46-116); ANION GAP 6 mmol/L (5-15); ASPARTATE AMINO TRANSFERASE 15 U/L (15-37); BILIRUBIN,TOTAL 0.3 MG/DL (0.2-1.0); BLOOD UREA NITROGEN 19 mg/dL (7-18); CALCIUM 7.8 MG/DL (8.5-10.1); CARBON DIOXIDE 32 MMOL/L (21-32); CHLORIDE 103 MMOL/L (98-107); CREATININE 2.6 MG/DL (0.55-1.30); POTASSIUM 3.1 MMOL/L (3.5-5.1); SODIUM 141 MMOL/L (136-145)
[2019-03-11] MEDS ORDERED: Cefepime HCl 2 GM in D5W 110 ML IV SCH (09:00)
[2019-03-11] MEDS: Heparin 5000 units/ml inj SUBQ SCH ×2 (09:05→20:40)
--- NOTE | 2019-03-11 10:16 | Diagnostic Imaging Report ---
Indication: Chest pain Technique: One view of the chest Comparison: 02/13/2019 Findings: There is equivocal minimal are venous congestion, much improved from previous study. Previously demonstrated nasogastric tube is no longer evident. The heart size is upper limits normal. Impression: Minimal pulmonary venous congestion
[2019-03-11] MEDS ORDERED: Amikacin Rx to dose MISC PRN (11:15)
--- NOTE | 2019-03-11 11:16 | History and Physical ---
History of Present Illness General Date patient seen: Mar 11, 2019 Reason for Hospitalization: Altered Level of Consciousness Present Illness HPI 68 year old female with hx of ESRF, on HD ([facility] R CHA, DM, long-term resident brought to ER of [facility] [place], with CC of ALOC. She was found to have low grade fever and pyuria. Her K was very low as well therefore she is admitted to telemetry. Allergies: Coded Allergies: No Known Allergies (Unverified , 09/15/16) Medication History Scheduled Aspirin* (Aspirin*), 81 MG ORAL DAILY, (Reported) Atorvastatin Calcium* (Atorvastatin Calcium*), 20 MG ORAL BEDTIME, (Reported) Hydralazine Hcl* (Hydralazine Hcl*), 25 MG ORAL EVERY 8 HOURS, (Reported) Insulin Glargine (Lantus), 20 SUBQ BEDTIME, (Reported) Lorazepam* (Lorazepam*), 2 MG ORAL DAILY, (Reported) Metoclopramide Hcl* (Metoclopramide Hcl*), 5 MG ORAL EVERY 6 HOURS, (Reported) Quetiapine Fumarate* (Seroquel*), 12.5 MG ORAL BID, (Reported) Sucralfate* (Carafate*), 1 GM ORAL BEDTIME, (Reported) Vancomycin HCl (Vancomycin HCl), 125 MG NG FOUR TIMES A DAY Vancomycin Hcl (Vancomycin Hcl), 125 MG PO FOUR TIMES A DAY, (Reported) [Nephro Aid], 1 TAB PO DAILY, (Reported) Scheduled PRN Acetaminophen* (Acetaminophen 325MG Tablet*), 650 MG ORAL Q4HR PRN for Mild Pain (Pain Scale 1-3), (Reported) Temazepam (Temazepam*), 15 MG ORAL HS PRN for Insomnia, (Reported) Miscellaneous Medications Insulin Aspart (Novolog), 100 UNIT SQ, (Reported) Patient History Healthcare decision maker N Resuscitation status Advanced Directive on File Yes Past Medical/Surgical History Past Medical/Surgical History: (1) ESRF (end stage renal failure) (2) Anemia (3) Diabetes mellitus (4) DVT (deep venous thrombosis) (5) C. difficile colitis (6) S/P AKA (above knee amputation) unilateral Review of Systems All Other Systems: negative except mentioned in HPI Physical Exam General Appearance: WD/WN Lines, tubes and drains: peripheral HEENT: normocephalic, anicteric Neck: non-tender, normal alignment Respiratory/Chest: chest wall non-tender, lungs clear Breasts: no masses Cardiovascular/Chest: normal rate Extremities: normal range of motion, other - above Knee amputation Last 24 Hour Vital Signs Date Time Temp Pulse Resp B/P (MAP) Pulse Ox O2 Delivery O2 Flow Rate FiO2 03/11/19 08:00 97.5 92 20 104/63 (77) 97 92 03/11/19 05:37 101/57 03/11/19 04:20 97.0 87 20 101/57 (72) 98 87 03/11/19 04:00 85 03/11/19 01:28 Room Air 03/11/19 00:00 97.3 88 18 112/58 (76) 99 88 03/11/19 00:00 89 03/10/19 22:25 99.5 97 15 112/58 99 Room Air 2.0 97 90 03/10/19 22:00 112/58 03/10/19 21:45 99.5 90 15 106/58 99 Room Air 2.0 97 86 03/10/19 20:15 99.5 97 15 107/55 99 Room Air 2.0 97 86 03/10/19 19:15 99.5 90 15 89/57 99 Room Air 2.0 97 03/10/19 17:25 99.5 97 15 78/49 97 Room Air 03/10/19 17:25 98 16 Room Air 97 03/10/19 17:14 96 16 80/42 98 Nasal Cannula 2.0 Intake and Output 03/10/19 03/11/19 18:59 06:59 # Voids 2 # Bowel Movements 1 Laboratory Tests Test 03/10/19 17:45 03/11/19 05:27 White Blood Count 7.0 K/UL (4.8-10.8) 6.9 K/UL (4.8-10.8) Red Blood Count 3.57 M/UL (4.20-5.40) L 3.71 M/UL (4.20-5.40) L Hemoglobin 10.2 G/DL (12.0-16.0) L 10.6 G/DL (12.0-16.0) L Hematocrit 32.5 % (37.0-47.0) L 33.3 % (37.0-47.0) L Mean Corpuscular Volume 91 FL (80-99) 90 FL (80-99) Mean Corpuscular Hemoglobin 28.5 PG (27.0-31.0) 28.7 PG (27.0-31.0) Mean Corpuscular Hemoglobin Concent 31.3 G/DL (32.0-36.0) L 31.9 G/DL (32.0-36.0) L Red Cell Distribution Width 16.7 % (11.6-14.8) H 17.3 % (11.6-14.8) H Platelet Count 289 K/UL (150-450) 312 K/UL (150-450) Mean Platelet Volume 9.5 FL (6.5-10.1) 9.1 FL (6.5-10.1) Neutrophils (%) (Auto) 66.0 % (45.0-75.0) 65.3 % (45.0-75.0) Lymphocytes (%) (Auto) 20.7 % (20.0-45.0) 17.4 % (20.0-45.0) L Monocytes (%) (Auto) 9.7 % (1.0-10.0) 12.2 % (1.0-10.0) H Eosinophils (%) (Auto) 2.6 % (0.0-3.0) 3.9 % (0.0-3.0) H Basophils (%) (Auto) 0.9 % (0.0-2.0) 1.3 % (0.0-2.0) Prothrombin Time 10.5 SEC (9.30-11.50) Prothromb Time International Ratio 1.0 (0.9-1.1) Activated Partial Thromboplast Time 30 SEC (23-33) Urine Color Red Urine Appearance Turbid Urine pH 6.5 (4.5-8.0) Urine Specific Williams 1.015 (1.005-1.035) Urine Protein 4+ (NEGATIVE) H Urine Glucose (UA) Negative (NEGATIVE) Urine Ketones 2+ (NEGATIVE) H Urine Blood 5+ (NEGATIVE) H Urine Nitrite Positive (NEGATIVE) H Urine Bilirubin 2+ (NEGATIVE) H Urine Ictotest Negative (NEGATIVE) Urine Urobilinogen 1 MG/DL (0.0-1.0) H Urine Leukocyte Esterase 3+ (NEGATIVE) H Urine RBC Tntc /HPF (0 - 2) H Urine WBC 15-20 /HPF (0 - 2) H Urine Squamous Epithelial Cells Moderate /LPF (NONE/OCC) H Urine Bacteria Many /HPF (NONE) H Sodium Level 143 MMOL/L (136-145) 141 MMOL/L (136-145) Potassium Level 2.8 MMOL/L (3.5-5.1) L 3.1 MMOL/L (3.5-5.1) L Chloride Level 101 MMOL/L (98-107) 103 MMOL/L (98-107) Carbon Dioxide Level 35 MMOL/L (21-32) H 32 MMOL/L (21-32) Anion Gap 7 mmol/L (5-15) 6 mmol/L (5-15) Blood Urea Nitrogen 16 mg/dL (7-18) 19 mg/dL (7-18) H Creatinine 2.4 MG/DL (0.55-1.30) H 2.6 MG/DL (0.55-1.30) H Estimat Glomerular Filtration Rate 24.5 mL/min (>60) 22.3 mL/min (>60) Glucose Level 219 MG/DL (74-106) H 78 MG/DL (74-106) # Lactic Acid Level 2.00 mmol/L (0.4-2.0) Calcium Level 7.7 MG/DL (8.5-10.1) L 7.8 MG/DL (8.5-10.1) L Magnesium Level 1.8 MG/DL (1.8-2.4) Total Bilirubin 0.2 MG/DL (0.2-1.0) 0.3 MG/DL (0.2-1.0) Aspartate Amino Transf (AST/SGOT) 17 U/L (15-37) 15 U/L (15-37) Alanine Aminotransferase (ALT/SGPT) 22 U/L (12-78) 20 U/L (12-78) Alkaline Phosphatase 151 U/L (46-116) H 147 U/L (46-116) H Total Creatine Kinase 23 U/L (26-308) L Creatine Kinase MB < 0.5 NG/ML (0.0-3.6) Creatine Kinase MB Relative Index 2.1 Troponin I 0.021 ng/mL (0.000-0.056) Total Protein 6.1 G/DL (6.4-8.2) L 6.3 G/DL (6.4-8.2) L Albumin 2.5 G/DL (3.4-5.0) L 2.6 G/DL (3.4-5.0) L Globulin 3.6 g/dL 3.7 g/dL Albumin/Globulin Ratio 0.7 (1.0-2.7) L 0.7 (1.0-2.7) L Microbiology Date/Time Source Procedure Growth Status 03/10/19 17:45 Urine,Clean Catch Urine Culture - Preliminary Gram Negative Irineo Resulted 03/10/19 21:30 Rectum Received Height (Feet): 5 Height (Inches): 4.00 Weight (Pounds): 160 Medications Current Medications Medications (Trade) Dose Ordered Sig/Althea Route PRN Reason Start Time Stop Time Status Last Admin Dose Admin Acetaminophen (Tylenol) 650 mg Q4H PRN ORAL fever 03/10/19 21:45 04/09/19 21:44 Albuterol/ Ipratropium (Albuterol/ Ipratropium) 3 ml Q4H PRN HHN Shortness of Breath 03/10/19 21:45 03/15/19 21:44 Cefepime HCl 1 gm/ Dextrose 55 ml @ 110 mls/hr Q24H IVPB 03/11/19 21:00 03/18/19 20:59 Dextrose (Dextrose 50%) 25 ml Q30M PRN IV Hypoglycemia 03/10/19 21:45 04/09/19 21:44 Dextrose (Dextrose 50%) 50 ml Q30M PRN IV Hypoglycemia 03/10/19 21:45 04/09/19 21:44 Heparin Sodium (Porcine) (Heparin 5000 units/ml) 5,000 units EVERY 12 HOURS SUBQ 03/11/19 09:00 04/10/19 08:59 03/11/19 09:05 Hydralazine HCl (Apresoline) 25 mg EVERY 8 HOURS ORAL 03/10/19 22:00 04/09/19 21:59 Insulin Aspart (NovoLOG) BEFORE MEALS AND HS SUBQ 03/11/19 06:30 04/10/19 06:29 Morphine Sulfate (Morphine Sulfate) 2 mg Q4H PRN IVP Moderate Pain (Pain Scale 4-6) 03/10/19 21:45 03/17/19 21:44 Nitroglycerin (Ntg) 0.4 mg Q5M PRN SL Prn Chest Pain 03/10/19 21:45 04/09/19 21:44 Ondansetron HCl (Zofran) 4 mg Q6H PRN IVP Nausea & Vomiting 03/10/19 21:45 04/09/19 21:44 Polyethylene Glycol (Miralax) 17 gm DAILYPRN PRN ORAL Constipation 03/10/19 21:45 04/09/19 21:44 Quetiapine Fumarate (SEROquel) 12.5 mg BID ORAL 03/11/19 09:00 04/10/19 08:59 03/11/19 09:04 Sucralfate (Carafate) 1 gm BEDTIME ORAL 03/11/19 21:00 04/10/19 20:59 Temazepam (Restoril) 15 mg HSPRN PRN ORAL Insomnia 03/10/19 21:45 03/17/19 21:44 Vancomycin HCl (Vanco rx to dose) 1 ea DAILY PRN MISC Per rx protocol 03/10/19 22:00 04/09/19 21:59 Assessment/Plan Problem List: (1) Acute encephalopathy ICD Codes: G93.40 - Encephalopathy, unspecified SNOMED: 4951153 (2) UTI (urinary tract infection) ICD Codes: N39.0 - Urinary tract infection, site not specified SNOMED: 50636808 (3) ESRF (end stage renal failure) ICD Codes: N18.6 - End stage renal disease SNOMED: 43118141 (4) Anemia ICD Codes: D64.9 - Anemia, unspecified SNOMED: 313771221 (5) Diabetes mellitus ICD Codes: E11.9 - Type 2 diabetes mellitus without complications SNOMED: 93229513 (6) S/P AKA (above knee amputation) unilateral ICD Codes: Z89.619 - Acquired absence of unspecified leg above knee SNOMED: 31714599, 31637624, 460040514 Diagnosis [place] I: previously pt had ESBL sensitive to Amikacin and Zosyn f/u cultures of current urine Nephrology evaluation for HD sliding scale Diabetic diet. Lit Cerna MD Mar 11, 2019 11:16
--- NOTE | 2019-03-11 11:40 | NUR ---
NURSE NOTES: Reported Dr. Cerna that the patient has bleeding (Vaginal bleeding).
--- NOTE | 2019-03-11 11:56 | Consultation ---
Consult Note Consult Note Patient under my care for dialysis management. was admitted yesterday for weakness and weight loss encephalopathy and anemia found to have UTI ER note: [facility] She has a history of end-stage renal disease and is dialysis dependent. She also has a history of type 2 diabetes and R. AKA. She also has a recent history of GI bleed. She is brought to the emergency department secondary to altered mental status according to the staff [facility]. The patient herself has no specific complaints. She denies pain. She denies cough or congestion. She denies shortness of breath. There is no other history available. No Known Allergies (Unverified , 09/15/16) Past Medical History: see triage record, old chart reviewed, DM, HTN, psych hx , renal disease, dialysis Past Surgical History: other - R. AKA Past Medical History: No History, Except For Hx Diabetes: Yes Hx Gastrointestinal Problems: Yes - hyperlipidemia, GERD Hx Cerebrovascular Accident: Yes Hx Dementia: Yes Hx Alzheimer's Disease: Yes Hx Paralysis: Yes Hx Dysphasia: Yes Hx Weakness: Yes examined poor historian data reviewed . Assessment/Plan ESRD : M W Fr UTI h/o of massive GI bleed and Hypotension requiring ICU admit and intubation during last admit Hypotensive now, likely dehydration Other medical conditions; Type 2 diabetes. Hypertension. h/o Anemia of chronic renal disease Hypercholesterolemia. Peripheral vascular disease. Alzheimer's dementia. ?? LUNG Pathology PAST SURGICAL HISTORY: 1. Right [id number] amputation. 2. Open reduction internal fixation Plan: Antibiotics fluid challenge stop anti HTN meds- add PRN meds for high BP monitor lytes HD as needed per orders Marques Motta MD Mar 11, 2019 11:56
[2019-03-11 12:00] VITALS: BP 100/53
[2019-03-11] MEDS ORDERED: Amikacin 250 MG in NS 110 ML IV SCH (13:00)
[2019-03-11 13:15] LABS: FERRITIN 775 NG/ML (8-388); PHOSPHORUS 2.8 MG/DL (2.5-4.9)
[2019-03-11 13:29] LABS: % IRON SATURATION 32 % (15-50); IRON 44 ug/dL (50-175); TOTAL IRON BINDING CAPACITY 136 ug/dL (250-450)
[2019-03-11] MEDS: Docusate 100mg cap ORAL SCH ×2 (13:29→17:22)
[2019-03-11] MEDS ORDERED: HydrALAZINE 25mg tab ORAL SCH (14:00)
[2019-03-11 16:00] VITALS: BP 126/67
[2019-03-11] MEDS: Piperacillin/Tazobactam 2.25 GM in D5W 55 ML IVPB SCH ×2 (16:12→21:27)
--- NOTE | 2019-03-11 16:30 | NUR ---
NURSE NOTES: Patient had 8 beats of V-Tach, Dr. Cerna aware.
--- NOTE | 2019-03-11 19:10 | NUR ---
NURSE NOTES: Pt report received from [facility]. Pt appears to be resting well with no distress noted. Pt has campus monitor on, active and working. Pt has no signs and symptoms of cardiac distress noted. Pt is on room air and is saturating at 98%, no distress noted. Pt has a Right AC 20g that is flushing and patent, no distress noted. Pt has a Left upper arm AV shunt, bruit and thrill noted. All safety precautions are in affect, such as safety breaks engaged, call light is within easy reach, bed is in lowest position, bed alarm is active, side rails are up times 3. Will continue plan of care.
--- NOTE | 2019-03-11 19:20 | NUR ---
HAND-OFF: Report given to MAYO Jara.
[2019-03-11 20:00] VITALS: BP 110/63
[2019-03-11] MEDS ORDERED: Cefepime 1gm in D5W 55ml IVPB SCH (21:00)
[2019-03-11] MEDS ORDERED: Sucralfate 1gm tab ORAL SCH (21:00)
[2019-03-12 04:00] VITALS: BP 124/75
--- NOTE | 2019-03-12 04:12 | NUR ---
NURSE NOTES: Patient is asleep lying semi-huertas's; resting comfortably. No signs of acute distress or pain noted at this time.
[2019-03-12] MEDS: Piperacillin/Tazobactam 2.25 GM in D5W 55 ML IVPB SCH ×3 (05:17→21:10)
[2019-03-12] MEDS: NovoLOG Insulin Flexpen SUBQ SCH ×4 (05:40→20:50)
[2019-03-12 06:59] LABS: BASOPHILS % (AUTO) 1.5 % (0.0-2.0); EOSINOPHILS % (AUTO) 3.4 % (0.0-3.0); HEMATOCRIT 33.3 % (37.0-47.0); HEMOGLOBIN 10.4 G/DL (12.0-16.0); LYMPHOCYTES % (AUTO) 15.2 % (20.0-45.0); MEAN CORPUSCULAR VOLUME 92 FL (80-99); PLATELET COUNT 302 K/UL (150-450); RED BLOOD COUNT 3.61 M/UL (4.20-5.40); RED CELL DISTRIBUTION WIDTH 17.1 % (11.6-14.8); WHITE BLOOD COUNT 8.3 K/UL (4.8-10.8)
--- NOTE | 2019-03-12 07:10 | NUR ---
HAND-OFF: Report given to MAYO Mercedes. Patient is awake lying semi-huertas's; resting comfortably. In stable condition.
--- NOTE | 2019-03-12 07:15 | NUR ---
NURSE NOTES: Received report from MAYO Jara. Pt is sitting up in bed. Bed is in lowest position, side rails up X2, and call light is within reach. WIll continue to monitor.
[2019-03-12 07:16] LABS: ALANINE AMINOTRANSFERASE 17 U/L (12-78); ALBUMIN 2.7 G/DL (3.4-5.0); ALBUMIN/GLOBULIN RATIO 0.7 (1.0-2.7); ALKALINE PHOSPHATASE 134 U/L (46-116); ANION GAP 10 mmol/L (5-15); ASPARTATE AMINO TRANSFERASE 13 U/L (15-37); BILIRUBIN,TOTAL 0.4 MG/DL (0.2-1.0); BLOOD UREA NITROGEN 27 mg/dL (7-18); CARBON DIOXIDE 29 MMOL/L (21-32); CHLORIDE 102 MMOL/L (98-107); CHOLESTEROL 174 MG/DL (< 200); CREATININE 3.5 MG/DL (0.55-1.30); HDL CHOLESTEROL 55 MG/DL (40-60); POTASSIUM 3.7 MMOL/L (3.5-5.1); SODIUM 141 MMOL/L (136-145); TRIGLYCERIDES 63 MG/DL (30-150)
[2019-03-12 07:27] LABS: PHOSPHORUS 3.3 MG/DL (2.5-4.9)
--- NOTE | 2019-03-12 07:52 | NUR ---
RD ASSESSMENT & RECOMMENDATIONS SEE CARE ACTIVITY FOR COMPLETE ASSESSMENT DAILY ESTIMATED NEEDS: Needs based on ESRD w/ HD, wound 59kg adj 30-35 kcals/kg [id number] total kcals 1.25-1.8 g protein/kg 74-106 g total protein Fluid per MD, on HD NUTRITION DIAGNOSIS: (1) Increased kcal/pro needs R/T renal dysfunction and wound healing as evidenced by pt w/ ESRD dx, on HD, sacral wound- partial thickness. CURRENT DIET: [facility] MED PO DIET RECOMMENDATIONS: RENAL DIET at this time ADDITIONAL RECOMMENDATIONS: * Obtain dry weight (post HD) on CALIBRATED bedscale * FLOUR WORKER eval (h/o texture modification for CVA) * Rec to hold [facility] med diet w/ current good glycemic control * Add NEPRO 1 tetra terrell qdaily * WOUND CARE: Nephrovite x1 daily, KAILA BID
[2019-03-12 08:00] VITALS: BP 127/58
[2019-03-12] MEDS: Docusate 100mg cap ORAL SCH ×3 (08:21→17:13)
[2019-03-12] MEDS: Heparin 5000 units/ml inj SUBQ SCH ×2 (08:22→20:49)
[2019-03-12] MEDS ORDERED: Vancomycin 1.5gm Premix IVPB SCH (10:00)
--- NOTE | 2019-03-12 10:59 | Pulmonology Progress Note ---
Assessment/Plan Problems: (1) Acute encephalopathy (2) UTI (urinary tract infection) (3) ESRF (end stage renal failure) (4) Anemia (5) Diabetes mellitus (6) S/P AKA (above knee amputation) unilateral Assessment/Plan afib resolved check cultures no more bleeding awaiting cardiology evaluation symptomatic treatment HD by ranger aide Subjective ROS Limited/Unobtainable: No Interval Events: no new complains, had an episode of short run of afib Constitutional: Reports: no symptoms HEENT: Repors: no symptoms Allergies: Coded Allergies: No Known Allergies (Unverified , 09/15/16) Objective Last 24 Hour Vital Signs Date Time Temp Pulse Resp B/P (MAP) Pulse Ox O2 Delivery O2 Flow Rate FiO2 03/12/19 09:00 Room Air 03/12/19 08:00 101 03/12/19 08:00 98.2 94 21 127/58 (81) 95 03/12/19 04:00 98.0 98 18 124/75 (91) 94 03/12/19 04:00 99 03/12/19 00:00 96 03/11/19 21:00 Room Air 03/11/19 20:00 98.2 96 17 110/63 (79) 93 03/11/19 20:00 93 03/11/19 16:00 89 03/11/19 16:00 98.3 91 20 126/67 (86) 95 91 03/11/19 12:00 97.3 84 18 100/53 (69) 95 84 03/11/19 12:00 82 Intake and Output 03/11/19 03/12/19 19:00 07:00 Intake Total 480 ml 110 ml Balance 480 ml 110 ml Intake Oral 480 ml IV Total 110 ml # Voids 2 # Bowel Movements 2 1 General Appearance: WD/WN HEENT: normocephalic, atraumatic Respiratory/Chest: chest wall non-tender, lungs clear Breasts: no masses Cardiovascular: normal rate Abdomen: normal bowel sounds, soft, non tender Skin: no rash Neurologic/Psychiatric: configuration release manager II-XII grossly normal Microbiology Date/Time Source Procedure Growth Status 03/10/19 17:45 Blood Blood Culture - Preliminary NO GROWTH AFTER 24 HOURS Resulted 03/10/19 17:25 Blood Blood Culture - Preliminary NO GROWTH AFTER 24 HOURS Resulted 03/10/19 17:45 Urine,Clean Catch Urine Culture - Final Escherichia Coli - Esbl Complete 03/10/19 21:30 Rectum Received Laboratory Tests 03/12/19 05:31: White Blood Count 8.3, Red Blood Count 3.61L, Hemoglobin 10.4L, Hematocrit 33.3L , Mean Corpuscular Volume 92, Mean Corpuscular Hemoglobin 28.7, Mean Corpuscular Hemoglobin Concent 31.1L, Red Cell Distribution Width 17.1H, Platelet Count 302, Mean Platelet Volume 9.5, Neutrophils (%) (Auto) 69.0, Lymphocytes (%) (Auto) 15.2L, Monocytes (%) (Auto) 11.0H, Eosinophils (%) (Auto ) 3.4H, Basophils (%) (Auto) 1.5, Sodium Level 141, Potassium Level 3.7, Chloride Level 102, Carbon Dioxide Level 29, Anion Gap 10, Blood Urea Nitrogen 27H, Creatinine 3.5H, Estimat Glomerular Filtration Rate 15.9, Glucose Level 98 , Uric Acid 4.7, Calcium Level 8.0L, Phosphorus Level 3.3, Total Bilirubin 0.4, Gamma Glutamyl Transpeptidase 29, Aspartate Amino Transf (AST/SGOT) 13L, Alanine Aminotransferase (ALT/SGPT) 17, Alkaline Phosphatase 134H, Pro-B-Type Natriuretic Peptide 8863H, Total Protein 6.5, Albumin 2.7L, Globulin 3.8, Albumin/Globulin Ratio 0.7L, Triglycerides Level 63, Cholesterol Level 174, LDL Cholesterol 87, HDL Cholesterol 55, Cholesterol/HDL Ratio 3.2L, Thyroid Stimulating Hormone (TSH) 0.307L, Random Vancomycin Level 0.2 Current Medications Medications (Trade) Dose Ordered Sig/Althea Route PRN Reason Start Time Stop Time Status Last Admin Dose Admin Acetaminophen (Tylenol) 650 mg Q4H PRN ORAL fever 03/10/19 21:45 04/09/19 21:44 Albuterol/ Ipratropium (Albuterol/ Ipratropium) 3 ml Q4H PRN HHN Shortness of Breath 03/10/19 21:45 03/15/19 21:44 Amikacin Protocol (Amikacin pharmacy to dose) 1 ea DAILY PRN MISC Per rx protocol 03/11/19 11:15 04/10/19 11:14 Dextrose (Dextrose 50%) 25 ml Q30M PRN IV Hypoglycemia 03/10/19 21:45 04/09/19 21:44 Dextrose (Dextrose 50%) 50 ml Q30M PRN IV Hypoglycemia 03/10/19 21:45 04/09/19 21:44 Docusate Sodium (Colace) 100 mg TID ORAL 03/11/19 13:00 04/10/19 12:59 03/12/19 08:21 Heparin Sodium (Porcine) (Heparin 5000 units/ml) 5,000 units EVERY 12 HOURS SUBQ 03/11/19 09:00 04/10/19 08:59 03/12/19 08:22 Hydralazine HCl (Apresoline) 10 mg Q4H PRN IV bp over 160 syst 03/11/19 12:13 04/10/19 12:12 Insulin Aspart (NovoLOG) BEFORE MEALS AND HS SUBQ 03/11/19 06:30 04/10/19 06:29 03/11/19 17:17 Morphine Sulfate (Morphine Sulfate) 2 mg Q4H PRN IVP Moderate Pain (Pain Scale 4-6) 03/10/19 21:45 03/17/19 21:44 Nitroglycerin (Ntg) 0.4 mg Q5M PRN SL Prn Chest Pain 03/10/19 21:45 04/09/19 21:44 Ondansetron HCl (Zofran) 4 mg Q6H PRN IVP Nausea & Vomiting 03/10/19 21:45 04/09/19 21:44 Pantoprazole (Protonix) 40 mg Q12HR ORAL 03/11/19 21:00 04/10/19 20:59 03/12/19 08:21 Piperacillin Sod/ Tazobactam Sod 2.25 gm/Dextrose 55 ml @ 110 mls/hr Q8HR IVPB 03/11/19 14:00 03/16/19 13:59 03/12/19 05:17 Polyethylene Glycol (Miralax) 17 gm DAILYPRN PRN ORAL Constipation 03/10/19 21:45 04/09/19 21:44 Quetiapine Fumarate (SEROquel) 12.5 mg BID ORAL 03/11/19 09:00 04/10/19 08:59 03/12/19 08:21 Temazepam (Restoril) 15 mg HSPRN PRN ORAL Insomnia 03/10/19 21:45 03/17/19 21:44 Vancomycin HCl (Vanco rx to dose) 1 ea DAILY PRN MISC Per rx protocol 03/10/19 22:00 04/09/19 21:59 Vancomycin HCl/ Dextrose 275 ml @ 137.5 mls/ hr ONCE IVPB 03/12/19 10:00 03/12/19 12:00 03/12/19 10:13 Lit Cerna MD Mar 12, 2019 10:59
[2019-03-12 12:00] VITALS: BP 127/63
[2019-03-12] MEDS ORDERED: Megace 400mg/10ml Susp ORAL SCH (15:19)
--- NOTE | 2019-03-12 15:21 | Nephrology Progress Note ---
Assessment/Plan Problem List: (1) ESRF (end stage renal failure) (2) Anemia (3) Diabetes mellitus (4) UTI (urinary tract infection) Assessment ESRD : M W Fr UTI h/o of massive GI bleed and Hypotension requiring ICU admit and intubation during last admit Hypotensive now, likely dehydration Other medical conditions; Type 2 diabetes. Hypertension. h/o Anemia of chronic renal disease Hypercholesterolemia. Peripheral vascular disease. Alzheimer's dementia. ?? LUNG Pathology PAST SURGICAL HISTORY: 1. Right [id number] amputation. 2. Open reduction internal fixation Plan Antibiotics fluid challenge stop anti HTN meds- add PRN meds for high BP monitor lytes HD as needed start Megace per orders Subjective ROS Limited/Unobtainable: No Constitutional: Reports: malaise Objective Objective Last 24 Hour Vital Signs Date Time Temp Pulse Resp B/P (MAP) Pulse Ox O2 Delivery O2 Flow Rate FiO2 03/12/19 12:00 95 03/12/19 12:00 98.0 97 20 127/63 (84) 95 03/12/19 09:00 Room Air 03/12/19 08:00 101 03/12/19 08:00 98.2 94 21 127/58 (81) 95 03/12/19 04:00 98.0 98 18 124/75 (91) 94 03/12/19 04:00 99 03/12/19 00:00 96 03/11/19 21:00 Room Air 03/11/19 20:00 98.2 96 17 110/63 (79) 93 03/11/19 20:00 93 03/11/19 16:00 89 03/11/19 16:00 98.3 91 20 126/67 (86) 95 91 Intake and Output 03/11/19 03/12/19 18:59 06:59 Intake Total 480 ml 110 ml Balance 480 ml 110 ml Intake Oral 480 ml IV Total 110 ml # Voids 2 # Bowel Movements 2 1 Laboratory Tests 03/12/19 05:31: White Blood Count 8.3, Red Blood Count 3.61L, Hemoglobin 10.4L, Hematocrit 33.3L , Mean Corpuscular Volume 92, Mean Corpuscular Hemoglobin 28.7, Mean Corpuscular Hemoglobin Concent 31.1L, Red Cell Distribution Width 17.1H, Platelet Count 302, Mean Platelet Volume 9.5, Neutrophils (%) (Auto) 69.0, Lymphocytes (%) (Auto) 15.2L, Monocytes (%) (Auto) 11.0H, Eosinophils (%) (Auto ) 3.4H, Basophils (%) (Auto) 1.5, Sodium Level 141, Potassium Level 3.7, Chloride Level 102, Carbon Dioxide Level 29, Anion Gap 10, Blood Urea Nitrogen 27H, Creatinine 3.5H, Estimat Glomerular Filtration Rate 15.9, Glucose Level 98 , Uric Acid 4.7, Calcium Level 8.0L, Phosphorus Level 3.3, Total Bilirubin 0.4, Gamma Glutamyl Transpeptidase 29, Aspartate Amino Transf (AST/SGOT) 13L, Alanine Aminotransferase (ALT/SGPT) 17, Alkaline Phosphatase 134H, Pro-B-Type Natriuretic Peptide 8863H, Total Protein 6.5, Albumin 2.7L, Globulin 3.8, Albumin/Globulin Ratio 0.7L, Triglycerides Level 63, Cholesterol Level 174, LDL Cholesterol 87, HDL Cholesterol 55, Cholesterol/HDL Ratio 3.2L, Thyroid Stimulating Hormone (TSH) 0.307L, Random Vancomycin Level 0.2 Height (Feet): 5 Height (Inches): 4.00 Weight (Pounds): 132 General Appearance: no apparent distress Respiratory/Chest: decreased breath sounds Abdomen: soft Marques Motta MD Mar 12, 2019 15:21
--- NOTE | 2019-03-12 15:28 | NUR ---
CASE MANAGEMENT:REVIEW 03/12/19 SI: ACUTE ENCEPHALOPATHY UTI. ESRD ON HD 98.0 97 20 127/63 95% ON RA H/H-10.4/33.3 BUN+27 CR+3.5 IS: IV ZOSYN Q8HRS MEGACE PO BID PROTONIX PO Q12 SEROQUEL PO BID HEPARIN SQ Q12 : TELEMETRY STATUS DCP: FROM [facility]
--- NOTE | 2019-03-12 15:41 | NUR ---
NURSE NOTES: Patients daughter would like the the patient to received an extra portion of food for breakfast lunch and dinner. Per Daughter, patient is a big eater and is not satisfied with the food we offer.
[2019-03-12 16:00] VITALS: BP 120/70
[2019-03-12] MEDS: Megace 400mg/10ml Susp ORAL SCH (17:13)
--- NOTE | 2019-03-12 17:40 | Cardiology Progress Note ---
Assessment/Plan Assessment/Plan [id number] Objective Last 24 Hour Vital Signs Date Time Temp Pulse Resp B/P (MAP) Pulse Ox O2 Delivery O2 Flow Rate FiO2 03/12/19 16:00 95 03/12/19 16:00 97.9 96 20 120/70 (87) 94 03/12/19 12:00 95 03/12/19 12:00 98.0 97 20 127/63 (84) 95 03/12/19 09:00 Room Air 03/12/19 08:12 99 20 Room Air 03/12/19 08:00 101 03/12/19 08:00 98.2 94 21 127/58 (81) 95 03/12/19 04:00 98.0 98 18 124/75 (91) 94 03/12/19 04:00 99 03/12/19 00:00 96 03/11/19 21:00 Room Air 03/11/19 20:00 98.2 96 17 110/63 (79) 93 03/11/19 20:00 93 Intake and Output 03/11/19 03/12/19 18:59 06:59 Intake Total 480 ml 110 ml Balance 480 ml 110 ml Intake Oral 480 ml IV Total 110 ml # Voids 2 # Bowel Movements 2 1 Laboratory Tests Test 03/12/19 05:31 White Blood Count 8.3 K/UL (4.8-10.8) Red Blood Count 3.61 M/UL (4.20-5.40) L Hemoglobin 10.4 G/DL (12.0-16.0) L Hematocrit 33.3 % (37.0-47.0) L Mean Corpuscular Volume 92 FL (80-99) Mean Corpuscular Hemoglobin 28.7 PG (27.0-31.0) Mean Corpuscular Hemoglobin Concent 31.1 G/DL (32.0-36.0) L Red Cell Distribution Width 17.1 % (11.6-14.8) H Platelet Count 302 K/UL (150-450) Mean Platelet Volume 9.5 FL (6.5-10.1) Neutrophils (%) (Auto) 69.0 % (45.0-75.0) Lymphocytes (%) (Auto) 15.2 % (20.0-45.0) L Monocytes (%) (Auto) 11.0 % (1.0-10.0) H Eosinophils (%) (Auto) 3.4 % (0.0-3.0) H Basophils (%) (Auto) 1.5 % (0.0-2.0) Sodium Level 141 MMOL/L (136-145) Potassium Level 3.7 MMOL/L (3.5-5.1) Chloride Level 102 MMOL/L (98-107) Carbon Dioxide Level 29 MMOL/L (21-32) Anion Gap 10 mmol/L (5-15) Blood Urea Nitrogen 27 mg/dL (7-18) H Creatinine 3.5 MG/DL (0.55-1.30) H Estimat Glomerular Filtration Rate 15.9 mL/min (>60) Glucose Level 98 MG/DL (74-106) Uric Acid 4.7 MG/DL (2.6-7.2) Calcium Level 8.0 MG/DL (8.5-10.1) L Phosphorus Level 3.3 MG/DL (2.5-4.9) Total Bilirubin 0.4 MG/DL (0.2-1.0) Gamma Glutamyl Transpeptidase 29 U/L (5-85) Aspartate Amino Transf (AST/SGOT) 13 U/L (15-37) L Alanine Aminotransferase (ALT/SGPT) 17 U/L (12-78) Alkaline Phosphatase 134 U/L (46-116) H Pro-B-Type Natriuretic Peptide 8863 pg/mL (0-125) H Total Protein 6.5 G/DL (6.4-8.2) Albumin 2.7 G/DL (3.4-5.0) L Globulin 3.8 g/dL Albumin/Globulin Ratio 0.7 (1.0-2.7) L Triglycerides Level 63 MG/DL (30-150) Cholesterol Level 174 MG/DL (< 200) LDL Cholesterol 87 mg/dL (<100) HDL Cholesterol 55 MG/DL (40-60) Cholesterol/HDL Ratio 3.2 (3.3-4.4) L Thyroid Stimulating Hormone (TSH) 0.307 uiU/mL (0.358-3.740) Random Vancomycin Level 0.2 ug/mL Microbiology Date/Time Source Procedure Growth Status 03/10/19 17:45 Blood Blood Culture - Preliminary NO GROWTH AFTER 24 HOURS Resulted 03/10/19 17:25 Blood Blood Culture - Preliminary NO GROWTH AFTER 24 HOURS Resulted 03/10/19 17:45 Urine,Clean Catch Urine Culture - Final Escherichia Coli - Esbl Complete 03/10/19 21:30 Rectum Received Kaushik Franco MD Mar 12, 2019 17:40
--- NOTE | 2019-03-12 17:55 | Physician Query ---
Dear Lit Pacheco Pt assisted resident brought to ER of [facility], with CC of ALOC. She was found to have low grade fever and pyuria. K level was found to be low as well, so it was determined for the pt to be admitted. Pt is ESRD. Lab: K:2.8, 3.1L Ca: 7.7,7.8L Acute encephalopathy is mentioned in H&P Please provide an appropriate diagnosis clarifying the Etiology and Acuity of this clinical scenario: [ x ] Metabolic Encephalopathy [ ] Toxic Encephalopathy [ ] Toxic - Metabolic Encephalopathy [ ] Septic Encephalopathy with Sepsis [ ] Acute Hepatic Encephalopathy [ ] Subacute Hepatic Encephalopathy [ ] Other: [ ] Unable To Determine Present on Admission: Yes (Y)xxx Clinically Undeterminable (W) No (N) PHYSICIAN QUERY FORM ALTERED LEVEL OF CONSCIOUSNESS
--- NOTE | 2019-03-12 19:55 | NUR ---
NURSE NOTES: Received report from Bertha Trujillo RN. Patient in bed AAO X2-3 with no complaints of acute pain or discomfort at this time. Kept clean, dry, and comfortable in bed. IV line intact and patent, with STEFANIE AV shunt present for HD access. On RA tolerating well and saturating at 95-97% with no S/S of resp distress or SOB noted. Safety precaution in place; siderails x3, call light within reach, bed in lowest position, brakes and alarm on at all times. Patient is incontinent both bowel and bladder and is changed PRN when soiled. Needs and wants anticipated and attended, will continue plan of care and monitor for any changes noted.
[2019-03-12 20:00] VITALS: BP 143/69
--- NOTE | 2019-03-12 20:02 | NUR ---
HAND-OFF: Report given to MAYO Reyez. Plan of care endorsed.
--- NOTE | 2019-03-12 23:00 | Consultation ---
DATE OF CONSULTATION: 03/12/2019 CARDIAC CONSULTATION CONSULTING PHYSICIAN: Kaushik Franco M.D. REFERRING PHYSICIAN: Lit Cerna M.D. REASON FOR REFERRAL: History of non-ST elevation myocardial infarction. HISTORY OF PRESENT ILLNESS: This is an elderly female, who is known to me from prior evaluation and hospitalization. The patient was brought to the emergency room at [facility]. The drama teacher run [facility] mentation, hypotension with blood pressure for few hours. The patient did dialysis today, slight vaginal bleeding was noted on the day of admission. She had 20-pound weight loss within the past few weeks. No trauma. No complaints of chest pain. No shortness of breath according to them. At the present time, the patient denies any chest pain. Denies any shortness of breath. Denies any dizziness or lightheadedness. No heart pounding or palpitation. Question whether she actually has shortness of breath when she lies down. PAST MEDICAL HISTORY: Extensive. She had recent hospitalization earlier this month and late last month with non ST-elevation myocardial infarction related to demand gastrointestinal bleeding with hemoclip placement, history of vomiting and possible aspiration pneumonia, diabetes mellitus, tachycardia anemia, leukocytosis secondary to pneumonia, end-stage renal disease on hemodialysis, bacteremia appeared to be contaminant, C. difficile colitis, history of systemic hypertension, hyperlipidemia, vascular disease status post AKA, Alzheimer's dementia, lung mass, multiple gastric polyps, history of polypectomy, gastric antral vascular ectasia, deep venous thrombosis on prior occasions. ALLERGIES: She is not allergic to any medications. SOCIAL HISTORY: She is currently legally according to old records. No alcohol, tobacco, smoking. She is a resident of [facility] facility. REVIEW OF SYSTEMS: GASTROINTESTINAL: She denies. GENITOURINARY: She denies. PULMONARY: She denies. CONSTITUTIONAL: She denies. PHYSICAL EXAMINATION: GENERAL: Shows to be elderly female, in no respiratory distress. She is lying down. NECK: Supple. No jugular venous distention. LUNGS: Clear to auscultation and percussion. CARDIAC: S1 is normal. S2 is normal. Regular rate and rhythm. No heaves, thrills, gallops, or rubs are noted. ABDOMEN: Soft, nontender. Positive bowel sounds. EXTREMITIES: There is no clubbing, cyanosis, or edema. NEUROLOGIC: She is awake, alert, responsive, and in no apparent respiratory distress. LABORATORY VALUES: White count of 8.3, hemoglobin 10.4, and platelet count of 302. Sodium is 141, potassium 3.7 chloride 102, bicarb 29, BUN of 27, creatinine 3.5, glucose of 98. Calcium is 8. Uric acid of 4.7. ProBNP is 8800. CRP of 1.6. Albumin of 2.7. TSH is 0.307. INR is 1 and PTT of 30. Urinalysis too numerous to count rbc's, 15 to 20 wbc's. Chest x-ray showing mild pulmonary vascular congestion. The patient's telemetry shows sinus rhythm. EKG shows normal sinus rhythm, leftward axis, no significant ST or T-wave abnormalities. ASSESSMENT AND PLAN: 1. Hypotension seems to have resolved. 2. History of recent gastrointestinal bleeding and anemia. 3. Diabetes mellitus. 4. End-stage renal disease, on hemodialysis. PLAN: Dr. Cerna, this patient was seen in cardiac consultation. The patient's blood pressure appears to be well responding to fluid administration. The patient has undergone previous echocardiography back in January 2014 showed ejection fraction 55% with moderate diastolic dysfunction, moderate mitral regurgitation, PA pressure in the 50s at that time. She does not look to be any kind of respiratory distress. She is arranged to have dialysis per recommendations of Dr. Motta. She remains afebrile and her telemetry does not show any significant tachycardia. We will follow her along with you. Kaushik Franco M.D. DR: Tristian JOB#: [id number] CC:
[2019-03-13] VITALS: BP 105/85
[2019-03-13 04:00] VITALS: BP 102/54
[2019-03-13] MEDS: Piperacillin/Tazobactam 2.25 GM in D5W 55 ML IVPB SCH ×2 (06:22→13:34)
[2019-03-13] MEDS: NovoLOG Insulin Flexpen SUBQ SCH ×3 (06:22→18:04)
[2019-03-13 06:42] LABS: EOSINOPHILS % (AUTO) 0.9 % (0.0-3.0); HEMATOCRIT 34.8 % (37.0-47.0); LYMPHOCYTES % (AUTO) 11.5 % (20.0-45.0); MEAN CORPUSCULAR VOLUME 91 FL (80-99); NEUTROPHILS % (AUTO) 80.6 % (45.0-75.0); PLATELET COUNT 330 K/UL (150-450); RED BLOOD COUNT 3.82 M/UL (4.20-5.40); RED CELL DISTRIBUTION WIDTH 17.1 % (11.6-14.8); WHITE BLOOD COUNT 9.3 K/UL (4.8-10.8)
[2019-03-13 07:23] LABS: ALANINE AMINOTRANSFERASE 15 U/L (12-78); ALBUMIN 2.5 G/DL (3.4-5.0); ALBUMIN/GLOBULIN RATIO 0.6 (1.0-2.7); ALKALINE PHOSPHATASE 129 U/L (46-116); ANION GAP 11 mmol/L (5-15); ASPARTATE AMINO TRANSFERASE 11 U/L (15-37); BILIRUBIN,TOTAL 0.4 MG/DL (0.2-1.0); BLOOD UREA NITROGEN 34 mg/dL (7-18); CALCIUM 8.1 MG/DL (8.5-10.1); CARBON DIOXIDE 27 MMOL/L (21-32); CHLORIDE 105 MMOL/L (98-107); CREATININE 3.9 MG/DL (0.55-1.30); POTASSIUM 3.6 MMOL/L (3.5-5.1); SODIUM 143 MMOL/L (136-145)
--- NOTE | 2019-03-13 07:42 | NUR ---
HAND-OFF: Report given to Bertha Trujillo RN. patient in stable condition, endorsed plan of care.
--- NOTE | 2019-03-13 07:42 | NUR ---
NURSE NOTES: Received report from MAYO Jara. Pt is sitting up in bed. Bed is in lowest position, side rails up X2, and call light is within reach. Will continue to monitor.
[2019-03-13 08:00] VITALS: BP 108/52
[2019-03-13] MEDS: Megace 400mg/10ml Susp ORAL SCH ×2 (08:14→18:03)
[2019-03-13] MEDS: Docusate 100mg cap ORAL SCH ×3 (08:15→18:03)
[2019-03-13] MEDS: Heparin 5000 units/ml inj SUBQ SCH (08:17)
[2019-03-13] MEDS ORDERED: Vancomycin 500mg/D5W 110ml IVPB SCH ×2 (10:00)
[2019-03-13 12:00] VITALS: BP 109/56
--- NOTE | 2019-03-13 12:17 | Pulmonology Progress Note ---
Assessment/Plan Problems: (1) Acute encephalopathy (2) UTI (urinary tract infection) (3) ESRF (end stage renal failure) (4) Anemia (5) Diabetes mellitus (6) S/P AKA (above knee amputation) unilateral Assessment/Plan afib resolved stable cardiology consult appreciated no more bleeding symptomatic treatment HD by hand straightener dc planning Subjective ROS Limited/Unobtainable: No Constitutional: Reports: no symptoms HEENT: Repors: no symptoms Respiratory: Reports: no symptoms Allergies: Coded Allergies: No Known Allergies (Unverified , 09/15/16) Objective Last 24 Hour Vital Signs Date Time Temp Pulse Resp B/P (MAP) Pulse Ox O2 Delivery O2 Flow Rate FiO2 03/13/19 09:00 Room Air 03/13/19 08:44 100 20 Room Air 03/13/19 08:00 103 03/13/19 08:00 97.7 101 20 108/52 (70) 96 03/13/19 04:00 110 03/13/19 04:00 99.2 111 20 102/54 (70) 96 03/13/19 00:00 98.7 105 19 105/85 (92) 95 03/13/19 00:00 112 03/12/19 21:00 Room Air 03/12/19 20:00 101 03/12/19 20:00 98.7 106 18 143/69 (93) 93 03/12/19 19:15 102 20 Room Air 03/12/19 16:00 95 03/12/19 16:00 97.9 96 20 120/70 (87) 94 Intake and Output 03/12/19 03/13/19 19:00 07:00 Intake Total 120 ml Balance 120 ml Intake Oral 120 ml # Voids 2 2 # Bowel Movements 2 1 General Appearance: WD/WN HEENT: normocephalic, anicteric Respiratory/Chest: chest wall non-tender, normal breath sounds Breasts: no masses Cardiovascular: regular rhythm Abdomen: normal bowel sounds, soft, non tender Genitourinary: normal external genitalia Neurologic/Psychiatric: range management specialist II-XII grossly normal Microbiology Date/Time Source Procedure Growth Status 03/10/19 17:45 Blood Blood Culture - Preliminary NO GROWTH AFTER 48 HOURS Resulted 03/10/19 17:25 Blood Blood Culture - Preliminary NO GROWTH AFTER 48 HOURS Resulted 03/10/19 21:30 Nasal Nares MRSA Culture - Final NO METHICILLIN RESISTANT STAPH AUREUS... Complete 03/10/19 17:45 Urine,Clean Catch Urine Culture - Final Escherichia Coli - Esbl Complete 03/10/19 21:30 Rectum - Final NO CARBAPENEM-RESISTANT ENTEROBACTERI... Complete 03/10/19 21:30 Rectum VRE Culture - Final Enterococcus Faecium - Vre Complete Laboratory Tests 03/13/19 05:00: White Blood Count 9.3, Red Blood Count 3.82L, Hemoglobin 11.0L, Hematocrit 34.8L , Mean Corpuscular Volume 91, Mean Corpuscular Hemoglobin 28.7, Mean Corpuscular Hemoglobin Concent 31.6L, Red Cell Distribution Width 17.1H, Platelet Count 330, Mean Platelet Volume 10.5H, Neutrophils (%) (Auto) 80.6H, Lymphocytes (%) (Auto) 11.5L, Monocytes (%) (Auto) 6.0, Eosinophils (%) (Auto) 0.9, Basophils (%) (Auto) 1.0, Sodium Level 143, Potassium Level 3.6, Chloride Level 105, Carbon Dioxide Level 27, Anion Gap 11, Blood Urea Nitrogen 34H, Creatinine 3.9H, Estimat Glomerular Filtration Rate 13.9, Glucose Level 146H, Hemoglobin A1c 5.2, Calcium Level 8.1L, Phosphorus Level 2.9, Total Bilirubin 0.4, Aspartate Amino Transf (AST/SGOT) 11L, Alanine Aminotransferase (ALT/SGPT) 15, Alkaline Phosphatase 129H, Total Protein 6.4, Albumin 2.5L, Globulin 3.9, Albumin/Globulin Ratio 0.6L, Random Vancomycin Level 17.5 Current Medications Medications (Trade) Dose Ordered Sig/Althea Route PRN Reason Start Time Stop Time Status Last Admin Dose Admin Acetaminophen (Tylenol) 650 mg Q4H PRN ORAL fever 03/10/19 21:45 04/09/19 21:44 Albuterol/ Ipratropium (Albuterol/ Ipratropium) 3 ml Q4H PRN HHN Shortness of Breath 03/10/19 21:45 03/15/19 21:44 Dextrose (Dextrose 50%) 25 ml Q30M PRN IV Hypoglycemia 03/10/19 21:45 04/09/19 21:44 Dextrose (Dextrose 50%) 50 ml Q30M PRN IV Hypoglycemia 03/10/19 21:45 04/09/19 21:44 Docusate Sodium (Colace) 100 mg TID ORAL 03/11/19 13:00 04/10/19 12:59 03/13/19 08:15 Heparin Sodium (Porcine) (Heparin 5000 units/ml) 5,000 units EVERY 12 HOURS SUBQ 03/11/19 09:00 04/10/19 08:59 03/13/19 08:17 Hydralazine HCl (Apresoline) 10 mg Q4H PRN IV bp over 160 syst 03/11/19 12:13 04/10/19 12:12 Insulin Aspart (NovoLOG) BEFORE MEALS AND HS SUBQ 03/11/19 06:30 04/10/19 06:29 03/12/19 20:50 Megestrol Acetate (Megace) 400 mg TWICE A DAY ORAL 03/12/19 18:00 04/11/19 17:59 03/13/19 08:14 Morphine Sulfate (Morphine Sulfate) 2 mg Q4H PRN IVP Moderate Pain (Pain Scale 4-6) 03/10/19 21:45 03/17/19 21:44 Nitroglycerin (Ntg) 0.4 mg Q5M PRN SL Prn Chest Pain 03/10/19 21:45 04/09/19 21:44 Ondansetron HCl (Zofran) 4 mg Q6H PRN IVP Nausea & Vomiting 03/10/19 21:45 04/09/19 21:44 Pantoprazole (Protonix) 40 mg Q12HR ORAL 03/11/19 21:00 04/10/19 20:59 03/13/19 08:14 Piperacillin Sod/ Tazobactam Sod 2.25 gm/Dextrose 55 ml @ 110 mls/hr Q8HR IVPB 03/11/19 14:00 03/16/19 13:59 03/13/19 06:22 Polyethylene Glycol (Miralax) 17 gm DAILYPRN PRN ORAL Constipation 03/10/19 21:45 04/09/19 21:44 Quetiapine Fumarate (SEROquel) 12.5 mg BID ORAL 03/11/19 09:00 04/10/19 08:59 03/13/19 08:14 Temazepam (Restoril) 15 mg HSPRN PRN ORAL Insomnia 03/10/19 21:45 03/17/19 21:44 Vancomycin HCl (Vanco rx to dose) 1 ea DAILY PRN MISC Per rx protocol 03/10/19 22:00 04/09/19 21:59 Lit Cerna MD Mar 13, 2019 12:17
--- NOTE | 2019-03-13 12:31 | NUR ---
DISCHARGE PLAN DISCHARGE ORDER NOTED CLINICALS FAXED TO [facility] AWAIT BED ASSIGNMENT
--- NOTE | 2019-03-13 14:51 | NUR ---
DISCHARGE PLANNING Discharge order noted Patient has been referred to; [facility] [address] Await Acceptance and Room Number Addendum: 03/13/19 at 1551 by RADHA COSTELLO CM [facility] denied patient due to isolations, can not accommodate at this time. Addendum: 03/13/19 at 1552 by RADHA COSTELLO [facility] [address] [facility], can not accept at this time.
--- NOTE | 2019-03-13 15:05 | Nephrology Progress Note ---
Assessment/Plan Problem List: (1) ESRF (end stage renal failure) (2) Anemia (3) Diabetes mellitus (4) UTI (urinary tract infection) Assessment ESRD : M W Fr UTI h/o of massive GI bleed and Hypotension requiring ICU admit and intubation during last admit Hypotensive now, likely dehydration Other medical conditions; Type 2 diabetes. Hypertension. h/o Anemia of chronic renal disease Hypercholesterolemia. Peripheral vascular disease. Alzheimer's dementia. ?? LUNG Pathology PAST SURGICAL HISTORY: 1. Right [id number] amputation. 2. Open reduction internal fixation Plan Antibiotics fluid challenge stop anti HTN meds- add PRN meds for high BP monitor lytes HD as needed per orders Subjective ROS Limited/Unobtainable: No Objective Objective Last 24 Hour Vital Signs Date Time Temp Pulse Resp B/P (MAP) Pulse Ox O2 Delivery O2 Flow Rate FiO2 03/13/19 12:00 101 03/13/19 12:00 99.3 88 20 109/56 (73) 97 03/13/19 09:00 Room Air 03/13/19 08:44 100 20 Room Air 03/13/19 08:00 103 03/13/19 08:00 97.7 101 20 108/52 (70) 96 03/13/19 04:00 110 03/13/19 04:00 99.2 111 20 102/54 (70) 96 03/13/19 00:00 98.7 105 19 105/85 (92) 95 03/13/19 00:00 112 03/12/19 21:00 Room Air 03/12/19 20:00 101 03/12/19 20:00 98.7 106 18 143/69 (93) 93 03/12/19 19:15 102 20 Room Air 03/12/19 16:00 95 03/12/19 16:00 97.9 96 20 120/70 (87) 94 Intake and Output 03/12/19 03/13/19 19:00 07:00 Intake Total 120 ml Balance 120 ml Intake Oral 120 ml # Voids 2 2 # Bowel Movements 2 1 Current Medications Medications (Trade) Dose Ordered Sig/Althea Route PRN Reason Start Time Stop Time Status Last Admin Dose Admin Acetaminophen (Tylenol) 650 mg Q4H PRN ORAL fever 03/10/19 21:45 04/09/19 21:44 Albuterol/ Ipratropium (Albuterol/ Ipratropium) 3 ml Q4H PRN HHN Shortness of Breath 03/10/19 21:45 03/15/19 21:44 Dextrose (Dextrose 50%) 25 ml Q30M PRN IV Hypoglycemia 03/10/19 21:45 04/09/19 21:44 Dextrose (Dextrose 50%) 50 ml Q30M PRN IV Hypoglycemia 03/10/19 21:45 04/09/19 21:44 Docusate Sodium (Colace) 100 mg TID ORAL 03/11/19 13:00 04/10/19 12:59 03/13/19 12:19 Heparin Sodium (Porcine) (Heparin 5000 units/ml) 5,000 units EVERY 12 HOURS SUBQ 03/11/19 09:00 04/10/19 08:59 03/13/19 08:17 Hydralazine HCl (Apresoline) 10 mg Q4H PRN IV bp over 160 syst 03/11/19 12:13 04/10/19 12:12 Insulin Aspart (NovoLOG) BEFORE MEALS AND HS SUBQ 03/11/19 06:30 04/10/19 06:29 03/13/19 12:21 Megestrol Acetate (Megace) 400 mg TWICE A DAY ORAL 03/12/19 18:00 04/11/19 17:59 03/13/19 08:14 Morphine Sulfate (Morphine Sulfate) 2 mg Q4H PRN IVP Moderate Pain (Pain Scale 4-6) 03/10/19 21:45 03/17/19 21:44 Nitroglycerin (Ntg) 0.4 mg Q5M PRN SL Prn Chest Pain 03/10/19 21:45 04/09/19 21:44 Ondansetron HCl (Zofran) 4 mg Q6H PRN IVP Nausea & Vomiting 03/10/19 21:45 04/09/19 21:44 Pantoprazole (Protonix) 40 mg Q12HR ORAL 03/11/19 21:00 04/10/19 20:59 03/13/19 08:14 Piperacillin Sod/ Tazobactam Sod 2.25 gm/Dextrose 55 ml @ 110 mls/hr Q8HR IVPB 03/11/19 14:00 03/16/19 13:59 03/13/19 13:34 Polyethylene Glycol (Miralax) 17 gm DAILYPRN PRN ORAL Constipation 03/10/19 21:45 04/09/19 21:44 Quetiapine Fumarate (SEROquel) 12.5 mg BID ORAL 03/11/19 09:00 04/10/19 08:59 03/13/19 08:14 Temazepam (Restoril) 15 mg HSPRN PRN ORAL Insomnia 03/10/19 21:45 03/17/19 21:44 Vancomycin HCl (Vanco rx to dose) 1 ea DAILY PRN MISC Per rx protocol 03/10/19 22:00 04/09/19 21:59 Laboratory Tests 03/13/19 05:00: White Blood Count 9.3, Red Blood Count 3.82L, Hemoglobin 11.0L, Hematocrit 34.8L , Mean Corpuscular Volume 91, Mean Corpuscular Hemoglobin 28.7, Mean Corpuscular Hemoglobin Concent 31.6L, Red Cell Distribution Width 17.1H, Platelet Count 330, Mean Platelet Volume 10.5H, Neutrophils (%) (Auto) 80.6H, Lymphocytes (%) (Auto) 11.5L, Monocytes (%) (Auto) 6.0, Eosinophils (%) (Auto) 0.9, Basophils (%) (Auto) 1.0, Sodium Level 143, Potassium Level 3.6, Chloride Level 105, Carbon Dioxide Level 27, Anion Gap 11, Blood Urea Nitrogen 34H, Creatinine 3.9H, Estimat Glomerular Filtration Rate 13.9, Glucose Level 146H, Hemoglobin A1c 5.2, Calcium Level 8.1L, Phosphorus Level 2.9, Total Bilirubin 0.4, Aspartate Amino Transf (AST/SGOT) 11L, Alanine Aminotransferase (ALT/SGPT) 15, Alkaline Phosphatase 129H, Total Protein 6.4, Albumin 2.5L, Globulin 3.9, Albumin/Globulin Ratio 0.6L, Random Vancomycin Level 17.5 Height (Feet): 5 Height (Inches): 4.00 Weight (Pounds): 132 General Appearance: no apparent distress Respiratory/Chest: lungs clear Abdomen: soft Marques Motta MD Mar 13, 2019 15:05
[2019-03-13 16:00] VITALS: BP 103/58
--- NOTE | 2019-03-13 16:06 | NUR ---
DISCHARGE PLANNING DISCHARGE ORDER NOTED Patient has been accepted back to; [facility] Bed : 113-B Skilled for Nurse to Nurse report [facility] ETA for transportation @ 17:30 Family notify Christiana White, Daughter
--- NOTE | 2019-03-13 18:29 | Cardiology Progress Note ---
Assessment/Plan Assessment/Plan 1. Hypotension seems to have resolved. 2. History of recent gastrointestinal bleeding and anemia. 3. Diabetes mellitus. 4. End-stage renal disease, on hemodialysis tele sinu lab noted looks comfortable hemodynamically stbl e ok to dc tele Subjective Cardiovascular: Denies: chest pain, lightheadedness Respiratory: Denies: shortness of breath Gastrointestinal/Abdominal: Denies: abdominal pain Genitourinary: Denies: burning Objective Last 24 Hour Vital Signs Date Time Temp Pulse Resp B/P (MAP) Pulse Ox O2 Delivery O2 Flow Rate FiO2 03/13/19 16:00 95 03/13/19 16:00 98.2 95 20 103/58 (73) 100 03/13/19 12:00 101 03/13/19 12:00 99.3 88 20 109/56 (73) 97 03/13/19 09:00 Room Air 03/13/19 08:44 100 20 Room Air 03/13/19 08:00 103 03/13/19 08:00 97.7 101 20 108/52 (70) 96 03/13/19 04:00 110 03/13/19 04:00 99.2 111 20 102/54 (70) 96 03/13/19 00:00 98.7 105 19 105/85 (92) 95 03/13/19 00:00 112 03/12/19 21:00 Room Air 03/12/19 20:00 101 03/12/19 20:00 98.7 106 18 143/69 (93) 93 03/12/19 19:15 102 20 Room Air General Appearance: no apparent distress, alert Neck: supple Cardiovascular: normal rate, regular rhythm Respiratory/Chest: lungs clear Abdomen: normal bowel sounds, non tender, soft Extremities: no swelling Intake and Output 03/12/19 03/13/19 19:00 07:00 Intake Total 120 ml Balance 120 ml Intake Oral 120 ml # Voids 2 2 # Bowel Movements 2 1 Laboratory Tests Test 03/13/19 05:00 White Blood Count 9.3 K/UL (4.8-10.8) Red Blood Count 3.82 M/UL (4.20-5.40) L Hemoglobin 11.0 G/DL (12.0-16.0) L Hematocrit 34.8 % (37.0-47.0) L Mean Corpuscular Volume 91 FL (80-99) Mean Corpuscular Hemoglobin 28.7 PG (27.0-31.0) Mean Corpuscular Hemoglobin Concent 31.6 G/DL (32.0-36.0) L Red Cell Distribution Width 17.1 % (11.6-14.8) H Platelet Count 330 K/UL (150-450) Mean Platelet Volume 10.5 FL (6.5-10.1) H Neutrophils (%) (Auto) 80.6 % (45.0-75.0) H Lymphocytes (%) (Auto) 11.5 % (20.0-45.0) L Monocytes (%) (Auto) 6.0 % (1.0-10.0) Eosinophils (%) (Auto) 0.9 % (0.0-3.0) Basophils (%) (Auto) 1.0 % (0.0-2.0) Sodium Level 143 MMOL/L (136-145) Potassium Level 3.6 MMOL/L (3.5-5.1) Chloride Level 105 MMOL/L (98-107) Carbon Dioxide Level 27 MMOL/L (21-32) Anion Gap 11 mmol/L (5-15) Blood Urea Nitrogen 34 mg/dL (7-18) H Creatinine 3.9 MG/DL (0.55-1.30) H Estimat Glomerular Filtration Rate 13.9 mL/min (>60) Glucose Level 146 MG/DL (74-106) H Hemoglobin A1c 5.2 % (4.3-6.0) Calcium Level 8.1 MG/DL (8.5-10.1) L Phosphorus Level 2.9 MG/DL (2.5-4.9) Total Bilirubin 0.4 MG/DL (0.2-1.0) Aspartate Amino Transf (AST/SGOT) 11 U/L (15-37) L Alanine Aminotransferase (ALT/SGPT) 15 U/L (12-78) Alkaline Phosphatase 129 U/L (46-116) H Total Protein 6.4 G/DL (6.4-8.2) Albumin 2.5 G/DL (3.4-5.0) L Globulin 3.9 g/dL Albumin/Globulin Ratio 0.6 (1.0-2.7) L Random Vancomycin Level 17.5 ug/mL Microbiology Date/Time Source Procedure Growth Status 03/10/19 21:30 Nasal Nares MRSA Culture - Final NO METHICILLIN RESISTANT STAPH AUREUS... Complete 03/10/19 21:30 Rectum - Final NO CARBAPENEM-RESISTANT ENTEROBACTERI... Complete 03/10/19 21:30 Rectum VRE Culture - Final Enterococcus Faecium - Vre Complete Kaushik Franco MD Mar 13, 2019 18:29
--- NOTE | 2019-03-13 19:48 | NUR ---
HAND-OFF: Report given to MAYO Juares. Plan of care endorsed
--- NOTE | 2019-03-13 19:49 | NUR ---
NURSE NOTES: Received pt from MAYO Mercedes. Pt awake and resting. IV site intact. Pt in no acute distress. Pt is going to be discharged , awaiting EMT to receive pt. Will continue with plan of care.
--- NOTE | 2019-03-13 20:00 | NUR ---
NURSE NOTES: Report given to EMT. IV has been discontinued. broadcast supervisor has been removed. Belongings with pt verified with pt. Pt discharged.
--- NOTE | 2019-03-14 10:54 | Discharge Summary ---
Discharge Summary Discharge Summary _ DATE OF ADMISSION: 03/10/2019 DATE OF DISCHARGE: 03/13/2019 DISCHARGED BY: Dr. Lit Cerna CONSULTANTS: Dr. Marques Franco BRIEF HOSPITAL COURSE: Patient is a 68-year-old female, with history of end-stage renal failure on hemodialysis every Sunday, Sunday, status post right AKA, diabetes mellitus, [facility] resident, was brought to ER due to chief complaint of altered level of consciousness. She denied pain. Denied cough or congestion. She denies shortness of breath. On evaluation at ED, she was hypotensive. Blood pressure 80/42, pulse rate 96, she was febrile and was saturating 98% on 2 L nasal cannula. Blood work did not show any leukocytosis. Hemoglobin was 10.2, hematocrit 32. Potassium was low at 2.8. BUN 16, creatinine 2.4. Troponin was negative. Lactic acid 2.0. Urinalysis showed 4+ protein, 2+ ketones, positive nitrite, +2 bilirubin, +3 leukocyte esterase, too many to count RBC and 15-20 WBC. EKG showed normal sinus rhythm with no acute changes. Chest x-ray did not show any acute disease per ED physician. She was given potassium IV. She was given normal saline bolus. She was started on IV antibiotics. She was then admitted for evaluation of acute encephalopathy, UTI, renal failure, anemia and diabetes. Patient had a prior ESBL infection, sensitive to amikacin and Zosyn. She had history of massive GI bleed and hypotension. From last admission, she required intubation. She was again hypotensive, likely from dehydration challenge. She was given albumin bolus. Antihypertensive medications were discontinued. She was given inpatient hemodialysis. She had a short run of A. fib. [employer]otional Model was consulted. Patient had echocardiogram done on January which showed ejection fraction 55% with moderate diastolic dysfunction, moderate mitral regurgitation, PA pressure in in the 50s. Hypotension resolved. Short run of A. fib resolved. She came in with sacrococcygeal ulcer, stage II. She was given wound care. Urine culture showed growth of ESBL, sensitive to Zosyn. Hemoglobin levels were stable. Blood pressure stabilized. She was discharged back to [facility]. FINAL DIAGNOSIS: Acute encephalopathy Hypotension, resolved Recent GI bleed and anemia Diabetes mellitus End-stage renal disease on hemodialysis ESBL UTI Hypercholesterolemia Peripheral vascular disease status post right AKA Alzheimer's dementia Possible lung pathology DISPOSITION: Patient was discharged to a SNF. DISCHARGE MEDICATIONS: Refer to Discharge Medication List. I have been assigned to complete a discharge summary on this account, I was not involved with the patient's management. Melissa Rogers NP Mar 14, 2019 10:54
--- NOTE | 2019-03-14 15:49 | Cardiology Report ---
APPROVED REPORT EKG Measurement Heart [id number] Normal sinus rhythm Possible Left atrial enlargement Cannot rule out Anterior infarct, age undetermined T wave abnormality, consider inferolateral ischemia Abnormal ECG
== END 2019-03-13 20:00 | DRG 70 ==
LOC: EDBD 17:18 → EMR 17:37 → 2E 19:16 → EDBEDREQ 21:00 → 2E 03-13 09:08
PROC: 5A1D70Z Performance of Urinary Filtration, Intermittent, Less than 6 Hours Per Day (ICD-10-PCS; principal; 2019-03-13)
DX: G93.40 Encephalopathy, unspecified (principal); N18.6 End stage renal disease; N39.0 Urinary tract infection, site not specified; I12.0 Hypertensive chronic kidney disease with stage 5 chronic kidney disease or end stage renal disease; L89.152 Pressure ulcer of sacral region, stage 2; E87.6 Hypokalemia; Z99.2 Dependence on renal dialysis; E11.22 Type 2 diabetes mellitus with diabetic chronic kidney disease; Z79.4 Long term (current) use of insulin; Z86.718 Personal history of other venous thrombosis and embolism; I95.9 Hypotension, unspecified; J98.4 Other disorders of lung; D64.9 Anemia, unspecified; E86.0 Dehydration; B96.89 Other specified bacterial agents as the cause of diseases classified elsewhere; Z16.12 Extended spectrum beta lactamase (ESBL) resistance; E78.00 Pure hypercholesterolemia, unspecified; I73.9 Peripheral vascular disease, unspecified; G30.9 Alzheimer's disease, unspecified; F02.80 Dementia in other diseases classified elsewhere, unspecified severity, without behavioral disturbance, psychotic disturbance, mood disturbance, and anxiety; Z89.611 Acquired absence of right leg above knee; Z79.82 Long term (current) use of aspirin; I25.2 Old myocardial infarction; I48.91 Unspecified atrial fibrillation; I34.0 Nonrheumatic mitral (valve) insufficiency
CPT/HCPCS: 36415; 71045; 80053; 80061; 80202; 81003; 82550; 82553; 82607; 82728; 82746; 82962; 82977; 83036; 83540; 83550; 83605; 83735; 83880; 84100; 84443; 84484; 84550; 85025; 85610; 85730; 86140; 87040; 87081; 87086; 87181; 93005; 94664; 96365; 96368; 99285; J1815; J8499

== ENCOUNTER 2019-07-21 14:35 | Emergency (ER) | payer MEDICARE, MEDICAID ==
[~2019-07-21] VITALS: Ht 157.5 cm; Wt 61.7 kg
--- NOTE | 2019-07-21 14:44 | Emergency Room Report ---
History of Present Illness General Chief Complaint: General Complaint Source: Patient, Medical Record Present Illness HPI 69-year-old female history of end-stage renal disease receiving dialysis Sunday presents with bleeding from her fistula she remove the dressing at the [facility] to early with then draining from the fistula, a pressure dressing was applied with hemostasis achieved. Patient was sent to the ED for evaluation. Onset prior to arrival, no aggravating or alleviating factors, severity was severe lasting minutes Allergies: Coded Allergies: No Known Allergies (Unverified , 09/15/16) Patient History Past Medical History: see triage record Last Menstrual Period: NA Reviewed Nursing Documentation: PMH: Agreed; PSxH: Agreed Nursing Documentation-PMH Past Medical History: No History, Except For Hx Diabetes: Yes Hx Cancer: No Hx Gastrointestinal Problems: Yes - GERD Hx Dialysis: Yes - ESRD History Of Psychiatric Problem: Yes - ALZHEIMERS, ANXIETY Hx Cerebrovascular Accident: Yes Hx Dementia: Yes Hx Alzheimer's Disease: Yes Hx Paralysis: Yes Hx Dysphasia: Yes Hx Weakness: Yes Review of Systems All Other Systems: negative except mentioned in HPI Physical Exam Vital Signs Date Time Temp Pulse Resp B/P (MAP) Pulse Ox O2 Delivery O2 Flow Rate FiO2 07/21/19 14:36 98.4 88 18 114/74 (87) 95 Room Air Sp02 EP Interpretation: reviewed, normal General Appearance: well appearing, no apparent distress, alert Head: normocephalic, atraumatic Eyes: bilateral eye PERRL, bilateral eye EOMI ENT: uvula midline, moist mucus membranes Neck: supple, thyroid normal, supple/symm/no masses Respiratory: lungs clear, no respiratory distress, no retraction, no accessory muscle use Cardiovascular #1: normal peripheral pulses, regular rate, rhythm, no edema, no gallop, no murmur Gastrointestinal: non tender, soft, no guarding, no rebound Musculoskeletal: other - Left upper extremity: Palpable thrill, shunt has achieved hemostasis, no bleeding Neurologic: alert, oriented x3 Psychiatric: mood/affect normal Skin: no rash, warm/dry Medical Decision Making Diagnostic Impression: Primary Impression: AV shunt malfunction Qualified Codes: T82.591A - Other mechanical complication of surgically created arteriovenous shunt, initial encounter ER Course [age]-year-old female presents with bleeding shunt hemostasis was achieved currently no acute bleeding, labs stable H&H is stable labs unremarkable Will disposition patient back to [facility] Laboratory Tests Test 9/2/19 15:55 White Blood Count 5.9 K/UL (4.8-10.8) Red Blood Count 3.42 M/UL (4.20-5.40) L Hemoglobin 10.5 G/DL (12.0-16.0) L Hematocrit 30.8 % (37.0-47.0) L Mean Corpuscular Volume 90 FL (80-99) Mean Corpuscular Hemoglobin 30.8 PG (27.0-31.0) Mean Corpuscular Hemoglobin Concent 34.3 G/DL (32.0-36.0) Red Cell Distribution Width 14.9 % (11.6-14.8) H Platelet Count 254 K/UL (150-450) Mean Platelet Volume 8.5 FL (6.5-10.1) Neutrophils (%) (Auto) 62.6 % (45.0-75.0) Lymphocytes (%) (Auto) 20.9 % (20.0-45.0) Monocytes (%) (Auto) 10.1 % (1.0-10.0) H Eosinophils (%) (Auto) 5.0 % (0.0-3.0) H Basophils (%) (Auto) 1.3 % (0.0-2.0) Prothrombin Time 10.2 SEC (9.30-11.50) Prothrombin Time INR 1.0 (0.9-1.1) PTT 29 SEC (23-33) Sodium Level 143 MMOL/L (136-145) Potassium Level 3.7 MMOL/L (3.5-5.1) Chloride Level 101 MMOL/L (98-107) Carbon Dioxide Level 34 MMOL/L (21-32) H Anion Gap 9 mmol/L (5-15) Blood Urea Nitrogen 21 mg/dL (7-18) H Creatinine 2.2 MG/DL (0.55-1.30) H Estimate Glomerular Filtration Rate 27.0 mL/min (>60) Glucose Level 164 MG/DL (74-106) H Calcium Level 8.5 MG/DL (8.5-10.1) Total Bilirubin 0.4 MG/DL (0.2-1.0) Aspartate Amino Transferase (AST) 12 U/L (15-37) L Alanine Aminotransferase (ALT) 12 U/L (12-78) Alkaline Phosphatase 100 U/L (46-116) Total Protein 6.8 G/DL (6.4-8.2) Albumin 3.2 G/DL (3.4-5.0) L Globulin 3.6 g/dL Albumin/Globulin Ratio 0.9 (1.0-2.7) L Last Vital Signs Date Time Temp Pulse Resp B/P (MAP) Pulse Ox O2 Delivery O2 Flow Rate FiO2 07/21/19 14:36 98.4 88 18 114/74 (87) 95 Room Air Disposition: HOME, SELF-CARE Condition: Stable Referrals: Lit Cerna MD Patient Instructions: Dialysis Vascular Access Malfunction, Vascular Access for Hemodialysis Additional Instructions: The patient was provided with discharge instructions, notified to follow-up with a primary care doctor and or specialist in the next 24-48 hours, and to return to the ED if they have worsening of their symptoms. Please note that this report is being documented using DRAGON technology. This can lead to erroneous entry secondary to incorrect interpretation by the dictating instrument. Carl Baig MD Jul 21, 2019 14:44
--- NOTE | 2019-07-21 15:59 | NUR ---
ED Nurse Note: brionna from [facility] for av shunt bleeding post dialaysis blood sent pt unable to provide urine ermd aware. pt on monitor vss.
[2019-07-21 16:21] LABS: BASOPHILS % (AUTO) 1.3 % (0.0-2.0); HEMATOCRIT 30.8 % (37.0-47.0); HEMOGLOBIN 10.5 G/DL (12.0-16.0); LYMPHOCYTES % (AUTO) 20.9 % (20.0-45.0); MEAN CORPUSCULAR VOLUME 90 FL (80-99); MONOCYTES % (AUTO) 10.1 % (1.0-10.0); NEUTROPHILS % (AUTO) 62.6 % (45.0-75.0); PLATELET COUNT 254 K/UL (150-450); RED BLOOD COUNT 3.42 M/UL (4.20-5.40); RED CELL DISTRIBUTION WIDTH 14.9 % (11.6-14.8); WHITE BLOOD COUNT 5.9 K/UL (4.8-10.8)
[2019-07-21 16:22] LABS: ANION GAP 9 mmol/L (5-15); BLOOD UREA NITROGEN 21 mg/dL (7-18); CALCIUM 8.5 MG/DL (8.5-10.1); CARBON DIOXIDE 34 MMOL/L (21-32); CHLORIDE 101 MMOL/L (98-107); CREATININE 2.2 MG/DL (0.55-1.30); POTASSIUM 3.7 MMOL/L (3.5-5.1); SODIUM 143 MMOL/L (136-145)
[2019-07-21 16:27] LABS: ALANINE AMINOTRANSFERASE 12 U/L (12-78); ALBUMIN 3.2 G/DL (3.4-5.0); ALBUMIN/GLOBULIN RATIO 0.9 (1.0-2.7); ALKALINE PHOSPHATASE 100 U/L (46-116); ASPARTATE AMINO TRANSFERASE 12 U/L (15-37); BILIRUBIN,TOTAL 0.4 MG/DL (0.2-1.0)
[2019-07-21 19:02] VITALS: BP 129/65
[2019-07-21 19:11] VITALS: BP 129/65
--- NOTE | 2019-07-21 19:13 | NUR ---
ED Nurse Note: Pt cleared by health care Provider for discharge. DC instructions/prescription was given and explained to pt and verbalized understanding of teachings. All medical deviecs such as ID band removed. Pt is AAO x4, ambulatory and left with all personal belongings.
== END 2019-07-21 19:14 | disposition home or self-care (01) ==
LOC: EDUNIT# 14:35 → EDBD 14:35 → EMR 14:59
DX: T82.838A Hemorrhage due to vascular prosthetic devices, implants and grafts, initial encounter (principal); E11.22 Type 2 diabetes mellitus with diabetic chronic kidney disease; N18.6 End stage renal disease; K21.9 Gastro-esophageal reflux disease without esophagitis; G30.9 Alzheimer's disease, unspecified; F02.80 Dementia in other diseases classified elsewhere, unspecified severity, without behavioral disturbance, psychotic disturbance, mood disturbance, and anxiety; Z99.2 Dependence on renal dialysis; Y83.8 Other surgical procedures as the cause of abnormal reaction of the patient, or of later complication, without mention of misadventure at the time of the procedure; Y92.129 Unspecified place in nursing home as the place of occurrence of the external cause
CPT/HCPCS: 36415; 80053; 85025; 85610; 85730; 99283